=== PATIENT | male | born 1945 | race Caucasian/White ===

== ENCOUNTER 2022-09-06 12:54 | Emergency (ER) | payer MEDICARE, OTHER, SELFPAY ==
--- NOTE | 2022-09-06 12:57 | CT_ITS ---
STUDY: CTA HEAD AND NECK WITH CONTRAST REASON FOR EXAM: Male, 76 years old. Neuro deficit, acute, stroke suspected: R eye RADIATION DOSAGE (If Supplied By Facility): CTDIvol = ( 20.59 ) mGy, DLP = ( 784.51 ) mGycm TECHNIQUE: CT angiography was performed with a multi-detector CT scanner. Data acquisition was obtained from the skull base through the vertex following intravenous administration of IV 100mL [id number]-370. MIP images were reconstructed from the axial data set. Post-processing of the angiographic images was performed, with multiplanar reformation and 3D reconstruction. Individualized dose optimization techniques were used for this CT. COMPARISON: No relevant priors. FINDINGS: Normal bilateral petrous carotid arteries. There is calcified plaque formation of the right cavernous carotid artery, without a cross-sectional luminal stenosis. There is calcified plaque formation of the left cavernous carotid artery, without a cross-sectional luminal stenosis. Normal right A1 segments of the anterior cerebral artery. Normal left A1 segments of the anterior cerebral artery. Normal intact anterior communicating artery (ACOM). Normal bilateral A2 segments of the anterior cerebral arteries. Normal right M1 and M2 segments of the middle cerebral arteries, with a normal M1 bifurcation. Normal left M1 and M2 segments of the middle cerebral arteries, with a normal M1 bifurcation. Normal right posterior communicating artery (PCOM). Normal left posterior communicating artery (PCOM). Normal bilateral vertebral arteries. Normal basilar artery with a normal basilar bifurcation. The visualized bilateral superior cerebellar (SCA) arteries are normal. Normal bilateral P1, P2 and visualized P3 segments of the posterior cerebral arteries. There is no demonstrated aneurysm of the [place]. AORTIC ARCH: There is atherosclerotic calcific plaque formation of the aortic arch and great vessels arising from the aortic arch, without a hemodynamically significant stenosis. There is a normal origin of the brachiocephalic, left common carotid, and left subclavian arteries. RIGHT CAROTID ARTERIES: Normal right common carotid artery (CCA). There is moderate atherosclerotic plaque formation with moderate narrowing of the right carotid bulb. There is moderate atherosclerotic plaque formation of the origin of the right internal carotid artery with an estimated stenosis of 50-69% stenosis. Normal visualized cervical portion of the right internal carotid artery. Normal origin of the right external carotid artery (ECA). LEFT CAROTID ARTERIES: Normal left common carotid artery (CCA). There is moderate atherosclerotic plaque formation with moderate narrowing of the carotid bulb. There is moderate atherosclerotic plaque formation of the origin of the left internal carotid artery with an estimated stenosis of 50-69% stenosis. Normal visualized cervical portion of the left internal carotid artery. Normal origin of the left external carotid artery (ECA). VERTEBRAL ARTERIES: Normal bilateral vertebral arteries. CT/STROKE CTA Head AND Neck W/Con IMPRESSION: 50-69% stenosis at the origin of the right and left internal carotid arteries due to calcific plaque formation. N.B. : The above Results were Read Back by Demarco Sparrow MD to Jw Kirkpatrick and understanding confirmed on 09/06/2022 13:26:58 (ET). Electronically Signed: Demarco Sparrow MD at 13:28 EST ,
--- NOTE | 2022-09-06 12:57 | EKG12_ITS ---
Test Reason : POSS STROKE Blood Pressure : / mmHG Vent. Rate : 075 BPM Atrial Rate : 075 BPM P-R Int : 148 ms QRS Dur : 078 ms QT Int : 384 ms P-R-T Axes : 094 010 035 degrees QTc Int : 428 ms Normal sinus rhythm Nonspecific ST and T wave abnormality Confirmed by TOMMY ASIF, ESVIN ([id number]), index editor MENDOZA EVANS ([id number]) on 09/10/2022 11:04:10 AM Referred By: Confirmed By:ESVIN SANDERS MD
--- NOTE | 2022-09-06 12:58 | EDS_ITS ---
HPI History of Present Illness Chief Complaint: Stroke Alert Informant: patient Onset/Context/Timing Onset: Today Context: - (Awoke with symptoms) Timing: Continuous Quality and Location: Positive for - (Blurry vision throughout entire right eye visual awan) Onset: Awoke with symptoms 2 hours ago Current Severity: Moderate Maximum Severity: Moderate Narrative Narrative: Patient went to bed around 2245 last night without any issues and woke blurry vision right eye today and walked into the eye doctor as a walk-in. Dr. Jules saw him and diagnosed him with a central retinal artery occlusion, and sent him emergently to the emergency department, he walked in, I saw him in triage as nursing called a stroke alert. Patient takes a baby aspirin every day and no other medications. He has no medical problems. He has no other symptoms right now. [facility] Medical History Cholecystectomy planned Diabetes mellitus Hypercholesteremia Hypertension Medical History no medical history Home Medications aspirin 81 mg tablet 81 mg PO DAILY 09/06/22 [History Last Taken Unknown] atorvastatin 40 mg tablet 40 mg PO DAILY #30 tabs 09/06/22 [Rx Last Taken Unknown] clobetasol 0.05 % scalp solution 1 applic topical DAILY 09/06/22 [History Last Taken Unknown] clopidogrel 75 mg tablet 75 mg PO DAILY #30 tabs 09/06/22 [Rx Last Taken Unknown] cyanocobalamin (vitamin B-12) 1,000 mcg tablet (Vitamin B-12) 1,000 mcg PO DAILY 09/06/22 [History Last Taken Unknown] gabapentin 300 mg capsule 900 mg PO TID 09/06/22 [History Last Taken Unknown] glimepiride 4 mg tablet 4 mg PO BID 09/06/22 [History Last Taken Unknown] qiosjdqpomo-nokcpptut-dok C-Mn 500 mg-400 mg capsule (Glucosamine Chondroitin Maximum Strength) cap PO DAILY 09/06/22 [History Last Taken Unknown] hydrochlorothiazide 12.5 mg capsule 12.5 mg PO DAILY 09/06/22 [History Last Taken Unknown] ketoconazole 2 % shampoo 1 applic topical Q14D 09/06/22 [History Last Taken Unknown] lamotrigine 25 mg tablet 25 mg PO QODAY 09/06/22 [History Last Taken Unknown] losartan 50 mg tablet 50 mg PO DAILY 09/06/22 [History Last Taken Unknown] magnesium 500 mg tablet 15 mg PO DAILY 09/06/22 [History Last Taken Unknown] metformin 750 mg tablet,extended release 24 hr 750 mg PO BID 09/06/22 [History Last Taken Unknown] metronidazole 0.75 % topical cream 1 applic topical BID 09/06/22 [History Last Taken Unknown] potassium 99 mg tablet mg 09/06/22 [History Last Taken Unknown] Allergy/AdvReac Type Severity Reaction Status Date / Time No Known Allergies Allergy Verified 09/06/22 13:23 Surgical History Knee joint replacement status Surgical History no surgical history Social History Smoking Status: Never smoker ROS ROS ED Constitutional Constitutional ED: Denies chills or fever(s) Eyes Eyes: Reports blurry vision right and change in vision; Denies diplopia ENT ENT ED: Denies rhinorrhea or sore throat Cardiovascular Cardiovascular: Denies chest pain or palpitations Respiratory/Chest Respiratory/Chest: Denies cough or dyspnea Gastrointestinal Gastrointestinal: Denies abdominal pain, diarrhea, nausea or vomiting Genitourinary Genitourinary ED: Denies dysuria or hematuria Musculoskeletal Musculoskeletal: Denies back pain or neck pain Integumentary Denies abscess or rash Neurologic Neurologic: Denies headache(s), paresthesias or weakness Psychiatric Psychiatric: Denies anxiety or suicidal thoughts EXAM Physical Exam Const Vital Signs: 09/06/22 13:12 09/06/22 13:13 09/06/22 13:14 Temperature 97.2 F L Temperature Source Temporal Pulse Rate 80 74 Respiratory Rate 18 18 Blood Pressure 165/76 H 151/74 H Blood Pressure Mean 105 99 Pulse Ox 96 94 Oxygen Delivery Method Room Air Room Air Room Air 09/06/22 13:17 09/06/22 13:30 09/06/22 14:00 Temperature Temperature Source Pulse Rate 78 71 67 Respiratory Rate 13 17 14 Blood Pressure 159/77 H 142/72 H 138/66 H Blood Pressure Mean 104 95 90 Pulse Ox 93 96 94 Oxygen Delivery Method Room Air Room Air 09/06/22 14:00 Temperature Temperature Source Pulse Rate 67 Respiratory Rate 14 Blood Pressure 138/66 H Blood Pressure Mean 90 Pulse Ox 94 Oxygen Delivery Method Room Air Positive well nourished and well developed General Appearance ED: well developed and NAD HEENT Reports moist mucous membranes normocephalic and atraumatic Eyes PERRL and EOMs intact bilaterally Eyes Narrative: Visual awan intact. The blurry throughout right eye visual awan, normal throughout left according to patient. Neck full ROM and supple Resp normal respiratory effort and clear to auscultation bilaterally Cardio regular rate, regular rhythm and no murmurs GI non-tender and non-distended Auscultation: normoactive bowel sounds Palpation: soft Back/Spine no CVA tenderness General Back: other FROM Extremity normal to inspection General Extremety ED: Negative for edema, pulses abnormal or tenderness General Extremity: Negative for edema or pulses abnormal Neuro oriented x3, CN's II-XII intact bilaterally and no sensory deficits noted Sensorium / Orientation: awake and alert Speech: speech normal Gait (Neuro): normal gait Motor Exam: strength 5/5 throughout Psych mental status grossly normal Skin no rashes or lesions noted and no wounds NIHSS NIHSS Initial: 1a Level of Consciousness: 0 1b LOC Questions (Score 2 if aphasic/stupor): 0 1c LOC Commands (Only score 1st attempt): 0 2 Best Gaze (If aphasic, use reflexive mvmts.): 0 3 Visual: 0 4 Facial Palsy: 0 5 Motor Arm Right (UN = amputation/fusion): 0 5 Motor Arm Left: 0 6 Motor Leg Right: 0 6 Motor Leg Left: 0 7 Limb ataxia (Only + if out of proportion): 0 8 Sensory (Aphasia/stupor=0 or 1, coma=2): 0 9 Best Language: 0 10 Dysarthria (mute, coma=2, intubated=UN): 0 11 Extinction and Inattention (only scored if +): 0 Total Score: 0 MDM MDM MDM Narrative Medical decision making narrative: Stroke alert was called on this patient, he was taken directly to CT and had a scan, then an IV was placed and CT angiography was performed. I discussed with the radiologist concerning the negative CT and the negative CTA but it shows bilateral carotid stenosis. Patient remained stable his blood pressure came down without treatment, now 138/66. Discussed with stroke neurology, since he h as no other deficits other than the eye/vision symptoms, they do not have further recommendations do not think the patient needs to be admitted for MRI or other testing right now, but defer treatment of the eye to vascular/ophthalmology. Discussed with Dr. López with vascular, he recommends loading the patient with clopidogrel, prescribing it for him, and have him follow-up as an outpatient, and making sure the patient is on statin therapy. When I went to discuss all of this with the patient, initially he had said that he was just on a baby aspirin but it became known that the patient is on a whole list of medications including medication for his blood pressure. We loaded him with clopidogrel while his went home to get the list, which we then had and were able to perform med reconciliation. It appears that high intensity statin therapy is desired, so I am changing his simvastatin 20 mg to atorvastatin 40 mg daily. Lab Data Attestation: I reviewed the patient's lab results. Labs: Laboratory Results - last 24 hr 09/06/22 09/06/22 09/06/22 13:03 13:03 13:03 WBC 3.3 L RBC 4.18 L Hgb 13.6 Hct 39.8 L MCV 95.2 H MCH 32.5 H MCHC 34.2 RDW Std Deviation 44.7 H RDW Coeff of [place] 12.7 Plt Count 79 L MPV 8.9 Immature Gran % (Auto) 0.300 Neut % (Auto) 75.0 H Lymph % (Auto) 12.2 L Mobile % (Auto) 10.7 H Eos % (Auto) 1.2 Baso % (Auto) 0.6 Absolute Neuts (auto) 2.5 Absolute Lymphs (auto) 0.40 L Nucleated RBC % 0 Differential Comment SCANNED Diff Path Review May foll Platelet Estimate MOD DEC PT 14.7 INR 1.2 APTT 29.6 Sodium 137 Potassium 4.1 Chloride 102 Carbon Dioxide 27.0 Anion Gap 8 BUN 25 H Creatinine 1.08 Estim Creat Clear Calc 55.25 Est GFR (MDRD) Af Amer 86 Est GFR (MDRD) Non-Af 71 BUN/Creatinine Ratio 23.1 H Glucose 217 H Calcium 10.1 Troponin I High Sens 6 POC Glucose 09/06/22 13:12 WBC RBC Hgb Hct MCV MCH MCHC RDW Std Deviation RDW Coeff of [place] Plt Count MPV Immature Gran % (Auto) Neut % (Auto) Lymph % (Auto) [place] % (Auto) Eos % (Auto) Baso % (Auto) Absolute Neuts (auto) Absolute Lymphs (auto) Nucleated RBC % Differential Comment Diff Path Review Platelet Estimate PT INR APTT Sodium Potassium Chloride Carbon Dioxide Anion Gap BUN Creatinine Estim Creat Clear Calc Est GFR (MDRD) Af Amer Est GFR (MDRD) Non-Af BUN/Creatinine Ratio Glucose Calcium Troponin I High Sens POC Glucose 199 H Radiography Diagnostic Testing: Clinical Impression(s) from Imaging Studies Head/Neck CTA 09/06/22 12:57 IMPRESSION: 50-69% stenosis at the origin of the right and left internal carotid arteries due to calcific plaque formation. N.B. : The above Results were Read Back by Demarco Sparrow MD to Jw Kirkpatrick and understanding confirmed on 09/06/2022 13:26:58 (ET). Electronically Signed: Demarco Sparrow MD at 13:28 EST , ADDENDUM: 09/06/22 1335 IMPRESSION: 50-69% stenosis at the origin of the right and left internal carotid arteries due to calcific plaque formation. N.B. : The above Results were Read Back by Demarco Sparrow MD to Jw Kirkpatrick and understanding confirmed on 09/06/2022 13:26:58 (ET). Electronically Signed: Demarco Sparrow MD at 13:28 EST , Brain CT 09/06/22 13:00 IMPRESSION: Chronic involutional changes of the brain. N.B. : The above Results were Read Back by Demarco Sparrow MD to Jw Kirkpatrick and understanding confirmed on 09/06/2022 13:16:04 (ET). Electronically Signed: Demarco Sparrow MD at 13:17 EST , ADDENDUM: 09/06/22 1324 IMPRESSION: Chronic involutional changes of the brain. N.B. : The above Results were Read Back by Demarco Sparrow MD to Jw Kirkpatrick and understanding confirmed on 09/06/2022 13:16:04 (ET). Electronically Signed: Demarco Sparrow MD at 13:17 EST , Chest X-Ray 09/06/22 13:50 IMPRESSION: No acute abnormality is seen. Electronically Signed: Demarco Sparrow MD at 14:03 EST , Rhythm Strip Rhythm Strip: Sinus Rhythm Rate: 75 Ectopy: None EKG Initial EKG: Attestation: I personally reviewed and interpreted this EKG as follows: Interpretation: Sinus Rhythm and No Acute Injury Pattern Management Discussion w/another healthcare provider: Horticulture Professor (stroke neurologist, vascular surgery Dr. López) and Radiologist Stroke Documentation Questions Stroke Team Activated: Yes Was Patient considered for Endovascular Intervention?: No-CTA negative, determined not to be an endovascular candidate IV Thrombolytic Administered: No (timing) Critical Care Time Critical Care Time: Yes Critical care time (excluding procedures): 30-74 minutes (40 min), Including time spent:, Discussing w/Patient &/or Family/Irrigation Equipment Mechanic, Discussing w/C onsultants and Performing Direct Patient Care at Bedside Discharge Plan Triage Chief Complaint: Stroke Alert ED Provider: Jw Kirkpatrick Dx/Rx/DC Orders Clinical Impression: Central retinal artery occlusion of right eye, 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% Instructions: Central Retinal Artery Occlusion, Carotid Artery Disease Prescriptions: New clopidogrel 75 mg tablet 75 mg PO DAILY Qty: 30 0RF atorvastatin 40 mg tablet 40 mg PO DAILY Qty: 30 0RF Continued gabapentin 300 mg Capsule 900 mg PO TID aspirin 81 mg Tablet 81 mg PO DAILY clobetasol 0.05 % Solution 1 applic TOPICAL DAILY losartan 50 mg Tablet 50 mg PO DAILY ketoconazole 2 % Shampoo 1 applic TOPICAL Q14D cyanocobalamin (vitamin B-12) [Vitamin B-12] 1,000 mcg Tablet 1,000 mcg PO DAILY lamotrigine 25 mg Tablet 25 mg PO QODAY glimepiride 4 mg Tablet 4 mg PO BID metronidazole 0.75 % Cream 1 applic TOPICAL BID hydrochlorothiazide 12.5 mg Capsule 12.5 mg PO DAILY jiycqccfroa-sjapxiegs-vsw C-Mn [Glucosamine Chondroitin MaxStr] 500-400 mg Capsule PO DAILY metformin 750 mg Tablet Extended Release 24 Hr 750 mg PO BID magnesium 500 mg Tablet 15 mg PO DAILY potassium 99 mg Tablet Discontinued meloxicam 7.5 mg Tablet 7.5 mg PO DAILY simvastatin 20 mg Tablet 20 mg PO DAILY Primary Care Provider: Harlan Ford Referrals: Sony López MD [[facility] Staff - Active Staff] - As soon as possible (Call Saturday for appointment if you do not hear from the office before then) Gilson Mario DO [Med Staff - Active Staff] - Disposition Disposition: Home, Self Care
--- NOTE | 2022-09-06 13:00 | CT_ITS ---
STUDY: CT BRAIN WITHOUT CONTRAST REASON FOR EXAM: Male, 76 years old. Neuro deficit, acute, stroke suspected RADIATION DOSAGE (If Supplied By Facility): CTDIvol = ( 44.99 ) mGy, DLP = ( 846.73 ) mGycm TECHNIQUE: Transaxial CT imaging of the brain was performed without administration of intravenous contrast material. Individualized dose optimization techniques were used for this CT. COMPARISON: No relevant priors. FINDINGS: Normal soft tissue structures. Normal calvarium. There is mild cerebral atrophy with widening of the extra-axial spaces and ventricular dilatation. There are areas of decreased attenuation within the white matter tracts of the supratentorial brain, consistent with microvascular disease changes. Normal basal ganglia and thalami. Normal brainstem. Normal cerebellum. There is no intracranial hemorrhage. There are no findings of an acute ischemic infarction. Atherosclerotic calcification of the vertebral arteries and cavernous portions of the internal carotid arteries bilaterally. Partial opacification of the right maxillary sinus. CT/STROKE Brain/Head without Cont IMPRESSION: Chronic involutional changes of the brain. N.B. : The above Results were Read Back by Demarco Sparrow MD to Jw Kirkpatrick and understanding confirmed on 09/06/2022 13:16:04 (ET). Electronically Signed: Demarco Sparrow MD at 13:17 EST ,
[2022-09-06 13:13] VITALS: BP 165/76; PULSE 80; RESP 18; O2SAT 96
[2022-09-06 13:14] VITALS: BP 151/74; PULSE 74; RESP 18; TEMP 36.2; O2SAT 94; BMI 30.9
--- NOTE | 2022-09-06 13:15 | CM.ED ---
Social Work Note Referral Source: Stroke Alert Referral Reason: emotional support SW met with patient's in response to stroke alert and introduced herself and role as [facility] [place] [employer]. SW provide patient's with emotional support. No other needs at this time, SW remains available if needs arise. Vesta Connolly MSW, RENE
[2022-09-06 13:17] VITALS: BP 159/77; PULSE 78; RESP 13; O2SAT 93
[2022-09-06 13:18] LABS: Absolute Neutrophil Count 2.5 X10^3/uL (2.0-7.7); Basophil# 0.02 X10^3/uL; Basophil% 0.6 % (0-1); Eosinophil# 0.04 X10^3/uL; Eosinophils% 1.2 % (0-5); Hematocrit 39.8 % (40-54); Hemoglobin 13.6 g/dL (13.0-16.5); Lymphocyte % 12.2 % (19-41); Mean Corp Hgb Conc 34.2 g/dL (32-36); Mean Corpuscular Hgb 32.5 pg (27.0-32.0); Mean Corpuscular Volume 95.2 fL (80-94); Mean Platelet Vol. 8.9 fl (6.2-12.0); Monocyte# 0.35 X10^3/uL; Monocyte% 10.7 % (0-10); NRBC Flagged by Analyzer 0 % (0-5); Neutrophil # 2.46 X10^3/uL (2.7-7.7); POSITIVE COUNT YES; POSITIVE DIFFERENTIAL YES; Platelet Count 79 K/mm3 (150-450); RBC Distribution Width CV 12.7 % (11.6-14.6); RBC Distribution Width SD 44.7 fl (35.1-43.9); Red Blood Count 4.18 M/mm3 (4.6-6.2); White Blood Count 3.3 K/mm3 (4.4-11.0)
[2022-09-06 13:19] VITALS: BMI 30.9
[2022-09-06 13:20] LABS: Differential Indicated SCAN CRITERIA MET
--- NOTE | 2022-09-06 13:20 | ED.RN ---
DR. ZHAO [facility] ON STROKE CONSULT
[2022-09-06 13:26] LABS: International Normalized Ratio 1.2; Prothrombin Time (Protime)PT. 14.7 SECONDS (11.7-14.9)
[2022-09-06 13:27] LABS: Partial Thromboplast Time 29.6 Seconds (24.1-36.2)
[2022-09-06 13:30] VITALS: BP 142/72; PULSE 71; RESP 17; O2SAT 96
[2022-09-06 13:30] LABS: Bedside Glucose 199 mg/dL (74-106)
[2022-09-06 13:38] LABS: Anion Gap 8 (5-15); BUN 25 mg/dL (7-18); BUN/Creat Ratio 23.1 RATIO (10-20); Calcium,Total 10.1 mg/dL (8.5-10.1); Chloride 102 mmol/L (98-107); Creatinine, Serum 1.08 mg/dL (0.70-1.30); Differential Comment SCANNED; EST Glomerular Filtration Rate 71 mL/min (>60); Est Glom Filt Rate - Afr Amer 86 mL/min (>60); Estimated Creatinine Clearance 55.25 ml/min; Glucose 217 mg/dL (74-106); Platelet Estimate MOD DEC (ADEQ); Potassium 4.1 mmol/L (3.5-5.1); Sodium Level 137 mmol/L (136-145); Troponin-I HS 6 pg/mL (3.0-78.0)
--- NOTE | 2022-09-06 13:50 | RAD_ITS ---
STUDY: X-RAY CHEST REASON FOR EXAM: Male, 76 years old. Neuro deficit, acute, stroke suspected TECHNIQUE: Single AP portable view of the chest. COMPARISON: None. FINDINGS: EKG electrodes are seen. Mild elevation of the right hemidiaphragm. The lungs are clear. There is no demonstrated pleural abnormality. Normal size heart. Normal mediastinum and rach. Normal visualized pulmonary arteries. There is atherosclerotic tortuosity of the aortic arch and descending thoracic aorta. There are diffuse degenerative changes of the visualized thoracic spine. Healed left-sided rib fractures. There is no demonstrated abnormality of the visualized soft tissue structures of the upper abdomen. RAD/Chest 1 View IMPRESSION: No acute abnormality is seen. Electronically Signed: Demarco Sparrow MD at 14:03 EST ,
[2022-09-06 14:00] VITALS: BP 138/66; PULSE 67; RESP 14; O2SAT 94
--- NOTE | 2022-09-06 14:13 | CHAPLAIN ---
Type of Pastoral Visit ___ Initial Visit ___ Follow-up Visit ___ On-call Visit ___ General Patient Visit ___ Spiritual Assessment ___ Family Conference ___ Bereavement _x__ Rapid Response ___ Code Blue ___ Other (describe below) Pastoral Care Referral From ___ Patient ___ Family ___ Nurse ___ Physician ___ Credit Collections Manager ___ House Decorator _x__ Other (describe below) Sacrament/Intervention _x__ Active listening ___ Anointing ___ Rastafari ___ Bereavement ___ Communion ___ Di exploration ___ _x__ Life review _x__ Prayer ___ Reconciliation ___ Sacrament of Sick _x__ Supportive presence ___ Wedding ___ Other (describe below) Pastoral Comments met spouse and stayed with her until the patient returned from CT; spouse was offered support, listening ear to which she spoke much about her life as a volunteer, and a prayer for the patient; when patient returned the spouse was answering questions from registration and no further support was needed
[2022-09-06] MEDS: Clopidogrel Bisulfate 300 MG Tablet PO (14:58)
[2022-09-06 16:13] VITALS: BP 154/70; PULSE 68; RESP 16; O2SAT 96
[2022-09-07 13:21] LABS: Pathologist Review Reviewed
== END 2022-09-06 16:29 | disposition home or self-care (01) ==
PROVIDERS: Emergency Provider Emergency Medicine; PCP Student in an Organized Health Care Education/Training Program; Visit Provider Emergency Medicine
DX: H34.11 Central retinal artery occlusion, right eye (principal); E11.9 Type 2 diabetes mellitus without complications; I65.23 Occlusion and stenosis of bilateral carotid arteries; I10 Essential (primary) hypertension; E78.00 Pure hypercholesterolemia, unspecified; Z79.82 Long term (current) use of aspirin; Z79.899 Other long term (current) drug therapy; Z79.84 Long term (current) use of oral hypoglycemic drugs
CPT/HCPCS: 70450; 70496; 70498; 71045; 80048; 82962; 84484; 85025; 85610; 85730; 93005; 99285; Q9967; A4216

== ENCOUNTER 2022-09-19 09:46 | Inpatient (IN) | payer MEDICARE, OTHER, SELFPAY ==
[2022-09-14 10:33] LABS: Hemoglobin A1c 8.3 % (3.8-5.6)
[2022-09-19] VITALS (13 sets, daily range): BP systolic 101–134; BP diastolic 41–65; PULSE 60–80; RESP 14–17; TEMP 35.9–36.8; O2SAT 91–98; BMI 30.2; BMI 30.4
[2022-09-19] MEDS: Lactated Ringers 1,000 ML 15 ML IV (10:52)
[2022-09-19 11:15] LABS: Bedside Glucose 106 mg/dL (74-106)
--- NOTE | 2022-09-19 11:46 | PCM.HP.BLA ---
History and Physical Allergies No Known Allergies Allergy (Verified 09/10/22 11:01) Medications aspirin 81 mg tablet 81 mg PO DAILY 09/06/22 [History Confirmed 09/10/22] atorvastatin 40 mg tablet 40 mg PO DAILY #30 tabs 09/06/22 [Rx Confirmed 09/10/22] clobetasol 0.05 % scalp solution 1 applic topical DAILY 09/06/22 [History Confirmed 09/10/22] clopidogrel 75 mg tablet 75 mg PO DAILY #30 tabs 09/06/22 [Rx Confirmed 09/10/22] cyanocobalamin (vitamin B-12) 1,000 mcg tablet (Vitamin B-12) 1,000 mcg PO DAILY 09/06/22 [History Confirmed 09/10/22] gabapentin 300 mg capsule 900 mg PO TID 09/06/22 [History Confirmed 09/10/22] glimepiride 4 mg tablet 4 mg PO BID 09/06/22 [History Confirmed 09/10/22] qaaypqjbiqp-qdaoydgqa-grz C-Mn 500 mg-400 mg capsule (Glucosamine Chondroitin Maximum Strength) cap PO DAILY 09/06/22 [History Confirmed 09/10/22] hydrochlorothiazide 12.5 mg capsule 12.5 mg PO DAILY 09/06/22 [History Confirmed 09/10/22] ketoconazole 2 % shampoo 1 applic topical Q14D 09/06/22 [History Confirmed 09/10/22] lamotrigine 25 mg tablet 25 mg PO QODAY 09/06/22 [History Confirmed 09/10/22] losartan 50 mg tablet 50 mg PO DAILY 09/06/22 [History Confirmed 09/10/22] metformin 750 mg tablet,extended release 24 hr 750 mg PO BID 09/06/22 [History Confirmed 09/10/22] metronidazole 0.75 % topical cream 1 applic topical BID 09/06/22 [History Confirmed 09/10/22] potassium 99 mg tablet mg 09/06/22 [History Confirmed 09/10/22] magnesium oxide 500 mg capsule 500 mg PO DAILY 09/10/22 [History Confirmed 09/10/22] PFSH Medical History? Cholecystectomy planned Diabetes mellitus Hypercholesteremia Hypertension Surgical History? Knee joint replacement status Social History? Smoking Status:? Never smoker HPI HPI HPI: LARA SOLANO, is a 76 M who presents to the office today for evaluation of right carotid stenosis found after abrupt vision loss in right eye. 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 No prior similar events, but was seeing floaters in right eye prior to vision loss. CTA revealed 55% stenosis right ICA with soft plaque, large caliber vessels. Was on ASA and simvastatin. Has started plavix in addition. Denies numbness/weakness/speech difficulty. No prior cardiac history, no CP/SOB with activity. No prior neck surgery/XRT/limitation in ROM. ROS General General: Yes fatigue and weakness; No weight change, appetite, colon cancer or breast cancer HEENT HEENT: Yes eye injury; No difficulty swallowing, eye surgery, swollen glands or hoarseness Endo Endocrine: Yes diabetes mellitus; No thyroid disease, thyroid cancer, Hair loss, heat intolerance or cold intolerance Skin Skin: No rash or changing moles Musc Musculoskeletal: No back problems, arthritis, rheumatoid arthritis, gout or joint pain Cardio Cardiovascular: Yes high blood pressure; No murmur, pacemaker, heart disease, atrial fibrillation, heart attack, heart stent, palpitations, shortness of breat with exertion or chest pain Psych Psychiatric: No depression, anxiety or hearing voices Resp Respiratory: No shortness of breath, No sleep apnea, No cough, No COPD, No asthma, No emphysema and No wheezing Gastro Gastrointestinal: No abdominal pain, No nausea or vomiting, No diarrhea, No constipation, No blood in stool, No acid reflux, No hemorrhoids, No ulcers, No gallbladder problem and No black,tarry stools Jose Hematologic: Yes blood thinners, No blood disorders, No bleeding, No anemia and No blood clots Neuro Neurologic: No system reviewed and no additional complaints, except as documented, No as per HPI, No abnormal gait, No abnormal hearing, No abnormal movements, No abnormal speech, No behavioral changes, No burning sensations, No confusion, No convulsions, No disequilibrium, No dizziness, No localized weakness, No frequent falls, No headache(s), No lack of coordination, No loss of vision, No memory loss, Yes numbness, No other visual disturbances, No radicular pain, No restless legs, No sensory deficit, No syncope, Yes tingling, No tremor(s), Yes weakness and No other Exam Const General: cooperative, healthy appearing, comfortable, no acute distress and well developed Nutritional Appearance: well nourished Orientation: alert, awake and oriented x3 HENMT Head: normocephalic and atraumatic Ears: hearing grossly normal bilaterally Nose: external nose normal Eyes General: appearance normal, both eyes and all related structures EOM: EOM intact bilaterally Neck Neck: normal visual inspection, full ROM, no lymphadenopathy and trachea midline Thyroid: thyroid normal Lymphatic: no lymphadenopathy noted Resp Effort & Inspection: normal respiratory effort, able to speak in complete sentences, symmetric chest movement, no audible wheezes, not labored, no stridor and no use of accessory muscles Auscultation: clear to auscultation bilaterally Cardio Rate: regular rate Rhythm: regular rhythm Heart Sounds: no murmurs Bruits: no carotid bruits Pulses: brachial pulses present and radial pulses present Skin General: no rashes or lesions noted and no erythema Wounds: no wounds Neuro Cranial Nerves: abnormalities within CN's II-XII (right eye vision loss, central) and EOM intact bilaterally Speech: speech normal Gait: normal gait Motor: strength 5/5 throughout Sensory Exam: no sensory deficits noted Psych Appearance: grossly normal and well kempt Mental Status: mental status grossly normal Mood: congruent mood Speech and Movement: speech and movement normal Thought Content: normal Judgment: judgment good Coding Level of Care Code Off vis,new,level 4 Diagnoses Carotid stenosis, right? I65.21 Assessment and Plan Assessment and Plan (1) Carotid stenosis, right: ?Status:?Acute ?Comment: CTA images reviewed ?Plan: -right CEA
[2022-09-19] MEDS: Cefazolin 2 GM in 0.9% Normal Saline 100 ML IV (12:24)
--- NOTE | 2022-09-19 12:24 | PLAQ_PTH ---
PATIENT: LARA SOLANO LOC: [facility] U#:[id number] AGE/SX: 76/M ROOM: [facility]08 RE09/19/[address]: Dr. Sony López MD : 1945 BED: 1 DIS: 09/20/2022 SPEC #: [id number] RECD: 09/19/22 16:49 STATUS: MARCOS REQ #: [id number] MARBELLA: 09/19/22 12:[address]: Sony López DEPT: SURGICAL PATHOLOGY RECD BY: Maureen Grossman ENTERED: 09/20/22 09:56 SP TYPE: PLAQUE OTHR DR: MD Dr. Harlan Anderson, Tissues: PLAQUE Procedures: Decalcification bone/plaque Surgery Specimen Level III HEADER OPERATION: Carotid endarterectomy PRE-OP DIAGNOSIS: Right carotid stenosis TISSUE SUBMITTED: Right carotid plaque MICROSCOPIC DIAGNOSIS Right carotid plaque, endarterectomy: Calcified atheromatous plaque consistent with severe stenosis. AM:linette 09/24/2022 GROSS DESCRIPTION Received in fixative is one container labeled with the patient's name and designated right carotid plaque. The specimen consists of a Y-shaped previously opened piece of vargas, indurated tissue measuring 3.5 cm in length and up to 1.2 cm in diameter. The specimen cuts with gritty sensation. Also present in the container are two pieces of vargas soft tissue measuring in aggregate 3.0 x 0.7 x 0.1 cm. Exhibits Coordinator sections are submitted in one cassette after decalcification. / SJ:linette 09/20/2022 TC:5 CPT: 10791, 26589
[2022-09-19] MEDS: Heparin Injection (Vial) 5,000 UNIT/ML VIAL 5000 UNIT (12:30)
[2022-09-19] MEDS: Bupivacaine 0.25% 30 ML Vial (15:22)
--- NOTE | 2022-09-19 15:25 | PCM.OPRPT ---
Report of Operation Date of Procedure: 09/19/22 Pre-Operative Diagnosis: symptomatic right carotid stenosis Post-Operative Diagnosis: same Surgery/Procedure Performed:: right carotid endarterectomy Surgeon: Sony López Type of Anesthesia: General Drains: 19 Fr PATTY Estimated Blood Loss (mL): 50 Description of Procedure: HPI: Patient is a 76-year-old male who suffered a right retinal artery infarct. He had CT scan which revealed significant soft plaque in the right internal carotid artery with moderate stenosis. He had already been on antiplatelet therapy when his embolic event occurred so he is opted now for surgical treatment of his symptomatic carotid. Description of procedure: Upon obtaining informed consent and verification correct patient procedure site patient was taken to the operating room where he was placed under general anesthesia then positioned prepped and draped in usual sterile fashion. Timeout was performed an oblique incision was made along the anterior border of the right sternocleidomastoid. Bovie electrocautery used to dissect down through subcutaneous tissue down to the level of platysma which was then divided and self-retaining retractors put in position. Further dissection was carried down to the sternocleidomastoid which was freed along its anterior border and retracted laterally. Sharp dissection was then used to dissect free the internal jugular vein along the anterior border, at the facial vein ligated with silk ties and divided. The jugular was then retracted laterally exposing the carotid vessels, and sharp dissection used to dissect free the proximal common carotid artery with care taken to identify and protect the vagus nerve. A right angle used to place a vessel around the proximal common carotid artery and attention turned to the distal exposure. Sharp dissection was used to dissect free the distal internal carotid artery with care taken to identify and protect the hypoglossal nerve. The vessel was dissected free circumferentially and a running was placed vessel loop. Patient was then heparinized and allowed to circulate for 3 minutes with serial ACT's for heparin redosing. While this was circulating the external carotid artery was dissected free and a right angle used to place a vessel loop. The vessels were then occluded, first the internal followed by the common and external. A longitudinal arteriotomy was created with 11 blade on the common carotid artery and extended with [place] scissors onto the internal carotid artery beyond the area of plaque. An [place] shunt was then placed first distally into the internal carotid artery allowed to backbleed before being placed into the common carotid artery proximally. The shunt was interrogated Doppler and found to be patent with low resistance signal. We then performed her endarterectomy with a freer elevator with satisfactory endpoint distally on the internal carotid artery and eversion endarterectomy of the external carotid artery. The lumen was then flushed with heparinized saline to clear debris in the distal endpoint tacked with 7-0 Prolene interrupted sutures. A bovine pericardial patch was then brought on the field and secured into position with a running 6-0 Prolene. Prior to completing the suture line the shunt was removed and the vessels backbled. After completing the suture line the internal carotid artery was allowed to backbleed and bifurcation then reoccluded its origin. Clamps were then removed from the external and common carotid arteries allowing 10 heartbeats of antegrade flow to flush before reestablishing antegrade flow into the internal carotid artery. Once clamps removed satisfactory stasis was noted and the vessel interrogated with Doppler. The internal carotid artery at low resistant signal in the external carotid artery was patent with normal signal. The patient was then reversed with protamine the field inspected for hemostasis. There continued to be some needle hole bleeding as well as oozing from the raw surfaces so Floseal topical hemostatic was applied with eventual satisfactory hemostasis noted. A 19 [place] [address] PATTY was then placed via separate stab incision and incision closed with 2-0 Vicryl, 3-0 Vicryl, 4 Monocryl and Dermabond for the skin. Patient was then awake from anesthesia, moving all extremities to command and cranial nerves intact. He was then taken to the intensive care unit for close hemodynamic and neurologic monitoring.
[2022-09-19] MEDS: Lactated Ringers 1,000 ML 100 ML IV (16:30)
[2022-09-19 17:00] LABS: Bedside Glucose 156 mg/dL (74-106)
[2022-09-19 17:04] LABS: ACT Activated Clotting Time 143 sec (74-137)
[2022-09-19 17:05] LABS: ACT Activated Clotting Time 335 sec (74-137)
[2022-09-19 17:07] LABS: ACT Activated Clotting Time 287 sec (74-137)
[2022-09-19] MEDS: Insulin Lispro 100 UNIT/ML INSULN.PEN SC ×2 (17:14→22:07)
[2022-09-19] MEDS: Gabapentin 600 MG Tablet 900 MG PO (17:18)
[2022-09-19] MEDS: Cefazolin 1 GM/50 ML BAG IV (20:24)
[2022-09-19] MEDS: Atorvastatin Calcium 40 MG Tablet PO (22:07)
[2022-09-19] MEDS: Acetaminophen 500 MG Tablet 1000 MG PO (22:07)
[2022-09-19 23:46] LABS: Bedside Glucose 322 mg/dL (74-106)
[2022-09-20] VITALS (14 sets, daily range): BP systolic 103–150; BP diastolic 45–71; PULSE 58–87; RESP 14–16; TEMP 36.6–36.8; O2SAT 90–97; BMI 30.9
[2022-09-20] MEDS: metFORMIN HCl 500 MG Tablet 750 MG PO ×2 (00:25→08:23)
[2022-09-20] MEDS: Lactated Ringers 500 ML 999 ML IV (02:40)
[2022-09-20] MEDS: Lactated Ringers 1,000 ML 100 ML IV ×2 (02:40→05:30)
[2022-09-20 03:46] LABS: Absolute Lymphocyte Count 0.26 X10^3/uL (0.83-4.51); Basophil# 0.01 X10^3/uL; Basophil% 0.3 % (0-1); Hematocrit 30.9 % (40-54); Hemoglobin 10.5 g/dL (13.0-16.5); Lymphocyte # 0.26 X10^3/ul (0.83-4.51); Lymphocyte % 7.5 % (19-41); Mean Corpuscular Hgb 32.2 pg (27.0-32.0); Mean Corpuscular Volume 94.8 fL (80-94); Mean Platelet Vol. 8.4 fl (6.2-12.0); Monocyte# 0.18 X10^3/uL; Monocyte% 5.2 % (0-10); NRBC Flagged by Analyzer 0 % (0-5); Neutrophil # 3.02 X10^3/uL (2.7-7.7); Neutrophil % 86.7 % (47-70); POSITIVE COUNT YES; POSITIVE DIFFERENTIAL YES; Platelet Count 68 K/mm3 (150-450); RBC Distribution Width CV 12.8 % (11.6-14.6); RBC Distribution Width SD 44.1 fl (35.1-43.9); Red Blood Count 3.26 M/mm3 (4.6-6.2); White Blood Count 3.5 K/mm3 (4.4-11.0)
[2022-09-20 03:47] LABS: Differential Indicated SCAN CRITERIA MET
[2022-09-20 03:57] LABS: Anion Gap 10 (5-15); BUN 24 mg/dL (7-18); BUN/Creat Ratio 18.9 RATIO (10-20); Calcium,Total 8.9 mg/dL (8.5-10.1); Chloride 100 mmol/L (98-107); Creatinine, Serum 1.27 mg/dL (0.70-1.30); EST Glomerular Filtration Rate 59 mL/min (>60); Est Glom Filt Rate - Afr Amer 71 mL/min (>60); Estimated Creatinine Clearance 50.26 ml/min; Glucose 220 mg/dL (74-106); Magnesium 1.5 mg/dL (1.6-2.6); Phosphorus 3.2 mg/dL (2.5-4.9); Potassium 4.2 mmol/L (3.5-5.1); Sodium Level 135 mmol/L (136-145)
[2022-09-20 04:00] LABS: Differential Comment SCANNED; Platelet Estimate MOD DEC (ADEQ)
[2022-09-20] MEDS: Cefazolin 1 GM/50 ML BAG IV (05:23)
[2022-09-20] MEDS: Acetaminophen 500 MG Tablet 1000 MG PO ×2 (05:25→14:21)
[2022-09-20] MEDS: Insulin Lispro 100 UNIT/ML INSULN.PEN SC ×2 (08:21→11:42)
[2022-09-20] MEDS: Cyanocobalamin 500 MCG Tablet 1000 MCG PO (08:26)
[2022-09-20] MEDS: Pyridoxine HCl 50 MG Tablet PO (08:26)
[2022-09-20] MEDS: Aspirin 81 MG TAB.CHEW PO (08:26)
[2022-09-20] MEDS: lamoTRIgine 25 MG Tablet PO (08:27)
[2022-09-20] MEDS: Enoxaparin 40 MG/0.4 ML Syringe SC (08:27)
[2022-09-20] MEDS: Clopidogrel Bisulfate 75 MG Tablet PO (08:27)
[2022-09-20] MEDS: hydroCHLOROthiazide 12.5mg 12.5 MG PO (08:28)
[2022-09-20] MEDS: Losartan Potassium 50 MG Tablet PO (08:29)
[2022-09-20] MEDS: Cholecalciferol (VIT D3) 25 MCG TABLET (1,000 UNITS) PO (08:29)
[2022-09-20] MEDS: Glimepiride 4 MG Tablet PO (08:29)
[2022-09-20] MEDS: Gabapentin 600 MG Tablet 900 MG PO ×2 (09:39→12:24)
--- NOTE | 2022-09-20 09:58 | PN.SURG_ITS ---
Subjective Subjective Doing well overnight. Mild hypotension, responded to IVF. Yoshi clears. Voiding but minimal. No new numbness/weakness/speech difficulty, right eye vision stable. Denies NICHOLS. Objective Data Objective Data A&O x 3, NAD RRR Strength 5/5 bilateral, CN intact Inc C/D/I, PATTY sero-sang Vital Signs: Vital Signs Temp Pulse Resp BP Pulse Ox O2 Del Method O2 Flow Rate 98.3 F 58 L 16 122/57 H 94 Nasal Cannula 1 09/20/22 02:46 09/20/22 07:00 09/20/22 07:00 09/20/22 07:00 09/20/22 07:42 09/20/22 07:42 09/20/22 07:42 Oxygen Flow Rate (L/min) 1 Oxygen Delivery Method Nasal Cannula Weight: 209 lb 7.026 oz Body Mass Index (BMI) 30.9 Intake & Output: Intake and Output for Last 24 Hours 09/18/22 09/19/22 09/20/22 23:59 23:59 23:59 Intake Total 160 / 160 1833.33 / 1833.33 Output Total 575 / 575 Balance -415 / -415 1833.33 / 1833.33 Lab / Micro Data Result Diagrams: 09/20/22 03:15 09/20/22 03:15 Labs: Laboratory Results - last 24 hr 09/19/22 10:49: POC Glucose 106 09/19/22 13:00: Activated Clotting Time 143 H 09/19/22 13:49: Activated Clotting Time 335 H 09/19/22 14:38: Activated Clotting Time 287 H 09/19/22 16:35: POC Glucose 156 H 09/19/22 22:06: POC Glucose 322 H 09/20/22 03:15: WBC 3.5 L, RBC 3.26 L, Hgb 10.5 L, Hct 30.9 L, MCV 94.8 H, MCH 32.2 H, MCHC 34.0, RDW Std Deviation 44.1 H, RDW Coeff of [place] 12.8, Plt Count 68 L, MPV 8.4, Immature Gran % (Auto) 0.300, Neut % (Auto) 86.7 H, Lymph % (Auto) 7.5 L, [place] % (Auto) 5.2, Eos % (Auto) 0.0, Baso % (Auto) 0.3, Absolute Neuts (auto) 3.0, Absolute Lymphs (auto) 0.26 L, Nucleated RBC % 0, Differential Comment SCANNED, Diff Path Review November, Platelet Estimate MOD 09/20/22 03:15: Sodium 135 L, Potassium 4.2, Chloride 100, Carbon Dioxide 25.0, Anion Gap 10, BUN 24 H, Creatinine 1.27, Estim Creat Clear Calc 50.26, Est GFR (MDRD) Af Amer 71, Est GFR (MDRD) Non-Af 59 L, BUN/Creatinine Ratio 18.9, Glucose 220 H, Calcium 8.9, Phosphorus 3.2, Magnesium 1.5 L Assessment & Plan Assessment/Plan (1) Carotid stenosis, right: PLAN: -POD # 1 right CEA -resume home meds, advance diet, HLIV -DC art line -progressive ambulation -hope to DC later today
[2022-09-20 12:06] LABS: Bedside Glucose 175 mg/dL (74-106)
[2022-09-20 12:14] LABS: Pathologist Review Reviewed
--- NOTE | 2022-09-20 12:40 | CASEMGMT ---
MATEO BRUCE Assessment: Face to Face with pt for initial transition planning/care coordination assessment. RN TEO introduced self and role at [facility], pt voices understanding and consents to assessment. Pt is A/O x4 and answers all questions appropriately at this time. Pt sitting up in chair in no distress. Care providers, pharmacy, and demographics verified/updated. Admitting Dx: Rt carotid ednarterectomy PCP:Logan Specialists:bren López Preferred Pharmacy: [facility] Retail Insurance: [employer], [place] Prescription Benefit: yes LNOK: Zehra Farris, ; Grant Tapia, son Living Arrangements: Pt lives with in a single story home with 2 steps to enter. Pt reports he is I in ADL's and denies concerns at home. Transportation: Pt drives self and denies concerns with transportation. DME/HHC/SNF:Pt has a cane and walker at home but does not use. Pt also has grab bars in the bathroom. Pt denies hx of HHC or SNF stays. Pt states no concerns with going home at time of dc. Pt states no further concerns/needs. CM to follow. Advised pt to ask CM if any further question/concerns/needs arise, voices understanding. Pt Goal: Home Plan: Home
--- NOTE | 2022-09-20 13:47 | PCM.DC.SUM ---
Providers Date of Admission: 09/19/22 Date of Discharge: 09/20/22 Primary Care Physician: Dr. Harlan Ford DO Reason For Visit: RT CAROTID ENDARTERECTOMY Diagnosis Discharge Diagnosis (1) Carotid stenosis, right: Status: Acute Code(s): I65.21 - Occlusion and stenosis of right carotid artery Medications at Discharge Home Medications aspirin 81 mg tablet 81 mg PO DAILY BLOOD THINNER 09/06/22 clobetasol 0.05 % scalp solution 1 applic topical DAILY PSORIASIS 09/06/22 cyanocobalamin (vitamin B-12) 1,000 mcg tablet (Vitamin B-12) 1,000 mcg PO DAILY SUPPLEMENT 09/06/22 gabapentin 300 mg capsule 900 mg PO TID PAIN 09/06/22 glimepiride 4 mg tablet 4 mg PO DAILY DIABETES 09/06/22 offgybpstic-qsdbgqhqo-oie C-Mn 500 mg-400 mg capsule (Glucosamine Chondroitin Maximum Strength) 1 cap PO DAILY SUPPLEMENT 09/06/22 hydrochlorothiazide 12.5 mg capsule 12.5 mg PO DAILY BP 09/06/22 ketoconazole 2 % shampoo 1 applic topical Q14D Check with primary doctor 09/06/22 lamotrigine 25 mg tablet 25 mg PO DAILY PT UNSURE 09/06/22 losartan 50 mg tablet 50 mg PO DAILY BP 09/06/22 metformin 750 mg tablet,extended release 24 hr 750 mg PO BID DIABETES 09/06/22 metronidazole 0.75 % topical cream 1 applic topical BID PSORIASIS 09/06/22 potassium 99 mg tablet 99 mg PO DAILY SUPPLEMENT 09/06/22 magnesium oxide 500 mg capsule 500 mg PO DAILY SUPPLEMENT 09/10/22 atorvastatin 40 mg tablet 40 mg PO DAILY CHOLESTEROL 09/13/22 cholecalciferol (vitamin D3) 25 mcg (1,000 unit) capsule (Vitamin D3) 25 mcg PO DAILY SUPPLEMENT 09/13/22 clopidogrel 75 mg tablet 75 mg PO DAILY BLOOD THINNER 09/13/22 meloxicam 7.5 mg tablet 7.5 mg PO PRN PRN FOOT PAIN 09/13/22 pyridoxine (vitamin B6) 50 mg tablet (Vitamin B-6) 50 mg PO DAILY SUPPLEMENT 09/13/22 tamsulosin 0.4 mg capsule 0.4 mg PO DAILY@1730 30 days #30 caps 09/20/22 Hospital Course Operations - (right carotid endarterectomy) Summary of Care Provided Hospital Course: Patient was admitted following right carotid endarterectomy on 09/20/22 for hemodynamic and neurologic monitoring. The surgery went as planned and patient tolerated well. Incision was closed with absorbable sutures and skin glue, and PATTY drain was placed. He had mild hypotension post-operatively which resolved with IVF. The PATTY drain was removed on POD#1 without issue. He has been hemodynamically stable throughout his admission and BPs are at his reported baseline on day of discharge. He has remained neurogenically stable throughout discharge, pre-existing R eye vision loss was stable. On day of discharge, he was tolerating diet, voiding without difficulty, ambulating safely, and with pain well managed. He was discharged in medically stable condition with outpatient follow-up scheduled. Physical Exam Const oriented x3 and no apparent distress Resp normal respiratory effort and clear to auscultation bilaterally Cardio regular rate and regular rhythm Extremity full ROM and no clubbing, cyanosis or edema Skin no rashes or lesions noted Trauma: no lacerations or abrasions Wound Narrative: R neck incision site with satisfactory appearance, no significant swelling, bruising/hematoma, erythema, drainage. Skin glue intact, small dressing over PATTY drain site. Weight / BMI Weight Weight: 209 lb 7.026 oz Body Mass Index (BMI) 30.9 ABG / Lab / Microbiology Data Result Diagrams: 09/20/22 03:15 09/20/22 03:15 Laboratory: Laboratory Results - last 24 hr 09/19/22 13:00: Activated Clotting Time 143 H 09/19/22 13:49: Activated Clotting Time 335 H 09/19/22 14:38: Activated Clotting Time 287 H 09/19/22 16:35: POC Glucose 156 H 09/19/22 22:06: POC Glucose 322 H 09/20/22 03:15: WBC 3.5 L, RBC 3.26 L, Hgb 10.5 L, Hct 30.9 L, MCV 94.8 H, MCH 32.2 H, MCHC 34.0, RDW Std Deviation 44.1 H, RDW Coeff of [place] 12.8, Plt Count 68 L, MPV 8.4, Immature Gran % (Auto) 0.300, Neut % (Auto) 86.7 H, Lymph % (Auto) 7.5 L, [place] % (Auto) 5.2, Eos % (Auto) 0.0, Baso % (Auto) 0.3, Absolute Neuts (auto) 3.0, Absolute Lymphs (auto) 0.26 L, Nucleated RBC % 0, Differential Comment SCANNED, Diff Path Review Reviewed, Platelet Estimate MOD 09/20/22 03:15: Sodium 135 L, Potassium 4.2, Chloride 100, Carbon Dioxide 25.0, Anion Gap 10, BUN 24 H, Creatinine 1.27, Estim Creat Clear Calc 50.26, Est GFR (MDRD) Af Amer 71, Est GFR (MDRD) Non-Af 59 L, BUN/Creatinine Ratio 18.9, Glucose 220 H, Calcium 8.9, Phosphorus 3.2, Magnesium 1.5 L 09/20/22 11:39: POC Glucose 175 H D/C Instructions Discharge Diet: No restrictions May shower in (days): 1 Weight Bearing Status: Weight bearing as tolerated Lifting Restricted to (Lbs): 20 Call your doctor if your incision/area has: Sudden Increased Bleeding, Increased Pain/ Swelling and Foul Smelling Discharge Call your doctor if you observe: Fever of 101 or Higher Remove Dressing in: 1 day Additional Dressing/Incision Instructions: Your incision site is closed with skin glue which is protecting the incision, no need to cover with any other dressing. This glue will slowly flake off over the next few weeks. There is a small dressing overlying the site where the drain was, you may remove this tomorrow. You can leave open or cover with a bandaid to your comfort. You may shower and allow soap/water to rinse over incision site. Do not take a bath or submerge the incision site in water for 3 weeks. Additional Instructions: You may shower tomorrow. You may remove the small adhesive dressing tomorrow. You should not bathe/submerge the incision in water for 3 weeks. You should not lift greater than 20 pounds for 3 weeks. Please check your BP daily at home, if it is running lower than usual or you are feeling dizzy/light-headed call the office. You declined prescription pain medication, if you feel like you need pain medication once you are home, please call the office. Continue to take aspirin and Plavix daily as prescribed until your follow-up appointment. You have a follow-up appointment in the office on 10/11/2022. Please Follow Up With: Sony López MD When: 10/11/2022 Meaningful Use Info Meaningful Use Diagnoses (Choose all that apply): None applicable Discharge Plan Admission Admit Date/Time: 09/19/22 09:46 Primary Reason for Your Visit: Right carotid endarterectomy Attending Provider: Sony López Primary Care Provider: Harlan Ford Consulting Providers: Sony Roberts Discharge Orders/Prescriptions Prescriptions: New tamsulosin 0.4 mg Capsule 0.4 mg PO DAILY@1730 30 Days Qty: 30 0RF Continued magnesium oxide 500 mg capsule 500 mg PO DAILY gabapentin 300 mg Capsule 900 mg PO TID aspirin 81 mg Tablet 81 mg PO DAILY clobetasol 0.05 % Solution 1 applic TOPICAL DAILY losartan 50 mg Tablet 50 mg PO DAILY ketoconazole 2 % Shampoo 1 applic TOPICAL Q14D cyanocobalamin (vitamin B-12) [Vitamin B-12] 1,000 mcg Tablet 1,000 mcg PO DAILY lamotrigine 25 mg Tablet 25 mg PO DAILY glimepiride 4 mg Tablet 4 mg PO DAILY metronidazole 0.75 % Cream 1 applic TOPICAL BID hydrochlorothiazide 12.5 mg Capsule 12.5 mg PO DAILY [id number]-pahpgfdbu-wxc C-Mn [Glucosamine Chondroitin MaxStr] 500-400 mg Capsule 1 cap PO DAILY metformin 750 mg Tablet Extended Release 24 Hr 750 mg PO BID potassium 99 mg Tablet 99 mg PO DAILY meloxicam 7.5 mg tablet 7.5 mg PO PRN PRN (Reason: FOOT PAIN) Label Comments: TAKE 1 TABLET BY MOUTH ONCE DAILY. NEEDED FOR FOOT PAIN, WITH FOOD. pyridoxine (vitamin B6) [Vitamin B-6] 50 mg Tablet 50 mg PO DAILY cholecalciferol (vitamin D3) [Vitamin D3] 25 mcg (1,000 unit) Capsule 25 mcg PO DAILY atorvastatin 40 mg tablet 40 mg PO DAILY clopidogrel 75 mg tablet 75 mg PO DAILY Referrals / Follow Up: Harlan Ford DO [Primary Care Provider] - Disposition Disposition (needs filled in before D/C Order can be placed): Home, Self Care
== END 2022-09-20 15:00 | disposition home or self-care (01) | DRG 39 ==
LOC: ACINP 09:47 → ICU 16:33
PROVIDERS: Anesthesiology; Admitting Provider Surgery Trauma Surgery; PCP Student in an Organized Health Care Education/Training Program; Referring Provider Surgery Trauma Surgery; Visit Provider Surgery Trauma Surgery
PROC: 03CK0ZZ Extirpation of Matter from Right Internal Carotid Artery, Open Approach (ICD-10-PCS; CPT 35301; principal; 2022-09-19 11:40)
DX: I65.21 Occlusion and stenosis of right carotid artery (principal); E11.9 Type 2 diabetes mellitus without complications; H54.61 Unqualified visual loss, right eye, normal vision left eye; I10 Essential (primary) hypertension; E78.00 Pure hypercholesterolemia, unspecified; I95.81 Postprocedural hypotension; Z79.82 Long term (current) use of aspirin; Z79.02 Long term (current) use of antithrombotics/antiplatelets; Z79.84 Long term (current) use of oral hypoglycemic drugs; Z79.899 Other long term (current) drug therapy
CPT/HCPCS: 80048; 82962; 83036; 83735; 84100; 85025; 85347; 88304; 88311; 94668; 94762; 97802; 99252; A4648; J7040; J7120; G0463; J2405

== ENCOUNTER 2022-12-16 22:29 | Emergency (ER) | payer MEDICARE, OTHER, SELFPAY ==
[2022-12-16 22:30] VITALS: BP 154/64; PULSE 93; RESP 15; TEMP 37.5; O2SAT 98; BMI 30.9
[2022-12-17 00:06] LABS: Absolute Lymphocyte Count 0.31 X10^3/uL (0.83-4.51); Absolute Neutrophil Count 4.9 X10^3/uL (2.0-7.7); Basophil# 0.01 X10^3/uL; Basophil% 0.2 % (0-1); Differential Indicated SCAN CRITERIA MET; Eosinophil# 0.01 X10^3/uL; Eosinophils% 0.2 % (0-5); Hematocrit 36.6 % (40-54); Hemoglobin 12.4 g/dL (13.0-16.5); Lymphocyte # 0.31 X10^3/ul (0.83-4.51); Lymphocyte % 5.4 % (19-41); Mean Corp Hgb Conc 33.9 g/dL (32-36); Mean Corpuscular Hgb 32.1 pg (27.0-32.0); Mean Corpuscular Volume 94.8 fL (80-94); Mean Platelet Vol. 8.8 fl (6.2-12.0); Monocyte# 0.52 X10^3/uL; NRBC Flagged by Analyzer 0 % (0-5); Neutrophil # 4.88 X10^3/uL (2.7-7.7); Neutrophil % 84.7 % (47-70); POSITIVE COUNT YES; POSITIVE DIFFERENTIAL YES; Platelet Count 73 K/mm3 (150-450); RBC Distribution Width CV 13.3 % (11.6-14.6); RBC Distribution Width SD 46.3 fl (35.1-43.9); Red Blood Count 3.86 M/mm3 (4.6-6.2); White Blood Count 5.8 K/mm3 (4.4-11.0)
[2022-12-17 00:17] LABS: Anion Gap 8 (5-15); BUN 21 mg/dL (7-18); BUN/Creat Ratio 18.4 RATIO (10-20); Calcium,Total 9.3 mg/dL (8.5-10.1); Chloride 103 mmol/L (98-107); Creatinine, Serum 1.14 mg/dL (0.70-1.30); EST Glomerular Filtration Rate 66 mL/min (>60); Est Glom Filt Rate - Afr Amer 80 mL/min (>60); Estimated Creatinine Clearance 54.17 ml/min; Glucose 257 mg/dL (74-106); Potassium 3.8 mmol/L (3.5-5.1); Sodium Level 139 mmol/L (136-145)
[2022-12-17 00:20] LABS: Macrocytosis RARE
[2022-12-17 00:21] LABS: Platelet Estimate MOD DEC (ADEQ)
[2022-12-17] MEDS: 0.9% Normal Saline 1,000 ML 999 ML IV (00:27)
[2022-12-17 00:30] VITALS: PULSE 89; RESP 17; O2SAT 96
[2022-12-17 01:23] LABS: Bacteria 0 SEEN /hpf (None Seen); Mucous, Urine 0 SEEN /hpf (<or=2+); Squamous Epithelial Cells - UA 0 SEEN /hpf (0-5); White Blood Cells 0 SEEN /hpf (0-5)
[2022-12-17 01:29] LABS: Glucose, Dipstick 1000 mg/dl (Normal); Ketone-Dipstick Negative (Negative); Leukocyte Esterase-Dipstick Negative /ul (Negative); Nitrite-Dipstick Negative (Negative); Occult Blood-Urine 25 /ul (Negative); Protein-Dipstick 30 mg/dl (Negative); Specific Gravity, Urine 1.015 (1.002-1.030); Urine Bilirubin Dipstick Negative (Negative); Urine Urobilinogen Normal (Normal)
[2022-12-17 01:30] LABS: Color, Urine Yellow (Yellow); Urine Clarity Clear (Clear)
[2022-12-17 02:08] LABS: Red Blood Cells-Urine 0-5 SEEN /hpf (0-5)
[2022-12-17 02:16] VITALS: PULSE 81; RESP 17; O2SAT 97
--- NOTE | 2022-12-17 02:17 | EDS_ITS ---
HPI History of Present Illness Chief Complaint: Hyperglycemia Informant: patient and family Narrative Narrative: Patient is a 76-year-old male with past medical history of diabetes. He states he does not use insulin but his oral antiglycemic's and does not typically check his blood sugar. He reports that today he noticed some right-sided facial swelling without any type of trauma. Family states that later in the day/evening he appeared to be somewhat off and secondary to this his blood sugar was checked at home. The sugar was elevated at approximately 300 and family had concern that this was the cause of his symptoms and therefore he was brought in for evaluation [facility] Medical History (Updated 12/20/22 @ 07:[address] Abilio Manrique, DO) Diabetes mellitus Easy bruising Excessive bleeding High cholesterol History of pain when walking Hypercholesteremia Hypertension Non-smoker Vision loss, right eye Wears glasses Wears partial dentures Home Medications aspirin 81 mg tablet 81 mg PO DAILY BLOOD THINNER 09/06/22 [History Last Taken 09/19/22] clobetasol 0.05 % scalp solution 1 applic topical DAILY PSORIASIS 09/06/22 [History Last Taken Unknown] cyanocobalamin (vitamin B-12) 1,000 mcg tablet (Vitamin B-12) 1,000 mcg PO DAILY SUPPLEMENT 09/06/22 [History Last Taken Unknown] gabapentin 300 mg capsule 900 mg PO TID PAIN 09/06/22 [History Last Taken 09/19/22] glimepiride 4 mg tablet 4 mg PO BID DIABETES 09/06/22 [History Last Taken Unknown] ibmledmxuwv-alnqaerxd-ipp C-Mn 500 mg-400 mg capsule (Glucosamine Chondroitin Maximum Strength) 1 cap PO DAILY SUPPLEMENT 09/06/22 [History Last Taken Unknown] hydrochlorothiazide 12.5 mg capsule 12.5 mg PO DAILY BP 09/06/22 [History Last Taken Unknown] ketoconazole 2 % shampoo 1 applic topical Q14D Check with primary doctor 09/06/22 [History Last Taken Unknown] lamotrigine 25 mg tablet 25 mg PO DAILY PT UNSURE 09/06/22 [History Last Taken 09/19/22] losartan 50 mg tablet 50 mg PO DAILY BP 09/06/22 [History Last Taken 09/19/22] metformin 750 mg tablet,extended release 24 hr 750 mg PO BID DIABETES 09/06/22 [History Last Taken Unknown] metronidazole 0.75 % topical cream 1 applic topical BID PSORIASIS 09/06/22 [History Last Taken Unknown] potassium 99 mg tablet 99 mg PO DAILY SUPPLEMENT 09/06/22 [History Last Taken Unknown] magnesium oxide 500 mg capsule 500 mg PO DAILY SUPPLEMENT 09/10/22 [History Last Taken Unknown] cholecalciferol (vitamin D3) 25 mcg (1,000 unit) capsule (Vitamin D3) 25 mcg PO DAILY SUPPLEMENT 09/13/22 [History Last Taken Unknown] meloxicam 7.5 mg tablet 7.5 mg PO PRN PRN FOOT PAIN 09/13/22 [History Last Taken Unknown] pyridoxine (vitamin B6) 50 mg tablet (Vitamin B-6) 50 mg PO DAILY SUPPLEMENT 09/13/22 [History Last Taken Unknown] tamsulosin 0.4 mg capsule 0.4 mg PO DAILY@1730 30 days #30 caps 09/20/22 [Rx Last Taken Unknown] simvastatin 20 mg tablet 20 mg PO DAILY 10/11/22 [History Last Taken Unknown] amoxicillin 875 mg-potassium clavulanate 125 mg tablet 1 tab PO BID 7 days #14 tabs 12/17/22 [Rx Last Taken Unknown] Allergy/AdvReac Type Severity Reaction Status Date / Time pregabalin [From Lyrica] AdvReac Other Verified 12/16/22 22:34 Surgical History Hx laparoscopic cholecystectomy Hx of bilateral cataract extraction Hx of colonoscopy Hx of hernia repair Hx of total knee replacement Social History Smoking Status: Never smoker ROS ROS ED Constitutional Constitutional ED: Denies chills or fever(s) Eyes Eyes: Denies change in vision ENT ENT ED: Reports other Details: Positive facial swelling Negative dental pain ; Denies sore throat Cardiovascular Cardiovascular: Denies chest pain Respiratory/Chest Respiratory/Chest: Denies cough or dyspnea Gastrointestinal Gastrointestinal: Denies abdominal pain, diarrhea, nausea or vomiting Genitourinary Genitourinary ED: Denies dysuria or hematuria Musculoskeletal Musculoskeletal: Denies myalgias Integumentary Denies rash Neurologic Neurologic: Denies headache(s) or weakness Hematologic/Lymphatic Hematologic/Lymphatic: Denies easy bleeding or easy bruising EXAM Physical Exam Const Vital Signs: 12/16/22 22:30 12/17/22 00:30 Temperature 99.5 F H Temperature Source Temporal Pulse Rate 93 89 Respiratory Rate 15 17 Blood Pressure 154/64 H Blood Pressure Mean 94 Pulse Ox 98 96 Oxygen Delivery Method Room Air Room Air Positive well nourished and well developed General Appearance ED: well developed HEENT Reports dry mucous membranes HEENT Narrative: Patient has soft tissue swelling with faint erythema over top the right lateral cheek over top the region of the parotid gland most consistent with parotiditis. No obvious abscess formation noted or lymphangitic streaking Mucous membranes are slightly dry and tacky there is no oral lesions no airway edema or compromise no signs of posterior pharynx infection Mouth ED: Yes dry mucous membranes Mouth: dry mucous membranes Eyes PERRL and EOMs intact bilaterally General Eye ED: Negative for scleral icterus Neck supple Neck Narrative: No nuchal rigidity or meningeal signs present Resp normal respiratory effort and clear to auscultation bilaterally Cardio regular rate and regular rhythm Rate: other Other Details: Radial pulses are plus 2 out of 4 bilaterally are equal and symmetric GI normal to inspection, nondistended, normoactive bowel sounds, non-tender, non- distended and no masses GI Narrative: No voluntary guarding or rigidity no pulsatile mass Auscultation: normoactive bowel sounds Palpation: soft Extremity normal to inspection Neuro oriented x3, CN's II-XII intact bilaterally and no sensory deficits noted Neuro Narrative: NIH stroke scale score of 0 Sensorium / Orientation: alert Psych mental status grossly normal Skin no rashes or lesions noted General Skin Exam: Negative for jaundice MDM MDM MDM Narrative Medical decision making narrative: Patient presented to the ER with low-grade temperature but otherwise awake and alert and oriented person place and time with NIH stroke scale score of 0. He takes oral antiglycemic's not insulin and concern for DKA or HHS is low based on this but still possible. Therefore a basic work-up was obtained in order to check for infectious process such as UTI as a cause of his hyperglycemia. Lab work revealed no clinically significant findings such as leukocytosis or left shift. He has no electrolyte derangement or signs of acute kidney injury. Blood sugar is only mildly elevated at 257 and there is no signs of DKA or HHS as his anion gap is not elevated his bicarb is normal and his serum osmolality is less than 320. Urine sample revealed no signs of UTI indicating that most likely he has an infected parotid gland based on his facial swelling as a cause of his hyperglycemia. However at this time as it is not causing signs of respiratory distress or septicemia he can be started on antibiotics and otherwise discharged home History & Record Review Discussion w/independent historian: Patient and Family Lab Data Attestation: I reviewed the patient's lab results. Labs: Laboratory Results - last 24 hr 12/16/22 12/16/22 12/16/22 23:43 23:43 23:43 WBC 5.8 RBC 3.86 L Hgb 12.4 L Hct 36.6 L MCV 94.8 H MCH 32.1 H MCHC 33.9 RDW Std Deviation 46.3 H RDW Coeff of [place] 13.3 Plt Count 73 L MPV 8.8 Immature Gran % (Auto) 0.500 Neut % (Auto) 84.7 H Lymph % (Auto) 5.4 L Garza % (Auto) 9.0 Eos % (Auto) 0.2 Baso % (Auto) 0.2 Absolute Neuts (auto) 4.9 Absolute Lymphs (auto) 0.31 L Nucleated RBC % 0 Platelet Estimate MOD DEC Macrocytosis RARE Sodium 139 Potassium 3.8 Chloride 103 Carbon Dioxide 28.0 Anion Gap 8 BUN 21 H Creatinine 1.14 Estim Creat Clear Calc 54.17 Est GFR (MDRD) Af Amer 80 Est GFR (MDRD) Non-Af 66 BUN/Creatinine Ratio 18.4 Glucose 257 H Calcium 9.3 Urine Color Urine Clarity Urine pH Ur Specific [place] Urine Protein Urine Glucose (UA) Urine Ketones Urine Occult Blood Urine Nitrite Urine Bilirubin Urine Urobilinogen Ur Leukocyte Esterase Urine RBC Urine WBC Ur Squamous Epith Cells Urine Bacteria Urine Mucus Acetone Level NEGATIVE 12/17/22 01:19 WBC RBC Hgb Hct MCV MCH MCHC RDW Std Deviation RDW Coeff of [place] Plt Count MPV Immature Gran % (Auto) Neut % (Auto) Lymph % (Auto) Garza % (Auto) Eos % (Auto) Baso % (Auto) Absolute Neuts (auto) Absolute Lymphs (auto) Nucleated RBC % Platelet Estimate Macrocytosis Sodium Potassium Chloride Carbon Dioxide Anion Gap BUN Creatinine Estim Creat Clear Calc Est GFR (MDRD) Af Amer Est GFR (MDRD) Non-Af BUN/Creatinine Ratio Glucose Calcium Urine Color Yellow Urine Clarity Clear Urine pH 6.0 Ur Specific [place] 1.015 Urine Protein 30 H Urine Glucose (UA) 1000 H Urine Ketones Negative Urine Occult Blood 25 H Urine Nitrite Negative Urine Bilirubin Negative Urine Urobilinogen Normal Ur Leukocyte Esterase Negative Urine RBC 0-5 SEEN Urine WBC 0 SEEN Ur Squamous Epith Cells 0 SEEN Urine Bacteria 0 SEEN Urine Mucus 0 SEEN Acetone Level Discharge Plan Triage Chief Complaint: Hyperglycemia ED Provider: Abilio Manrique Dx/Rx/DC Orders Clinical Impression: Hyperglycemia, Acute parotitis, Non-insulin dependent diabetes mellitus Instructions: High Blood Sugar (Hyperglycemia), ED Salivary Gland Infection Prescriptions: New amoxicillin-pot clavulanate 875-125 mg tablet 1 tab PO BID 7 Days Qty: 14 0RF No Action magnesium oxide 500 mg capsule 500 mg PO DAILY simvastatin 20 mg tablet 20 mg PO DAILY gabapentin 300 mg Capsule 900 mg PO TID aspirin 81 mg Tablet 81 mg PO DAILY clobetasol 0.05 % Solution 1 applic TOPICAL DAILY losartan 50 mg Tablet 50 mg PO DAILY ketoconazole 2 % Shampoo 1 applic TOPICAL Q14D cyanocobalamin (vitamin B-12) [Vitamin B-12] 1,000 mcg Tablet 1,000 mcg PO DAILY lamotrigine 25 mg Tablet 25 mg PO DAILY glimepiride 4 mg Tablet 4 mg PO BID metronidazole 0.75 % Cream 1 applic TOPICAL BID hydrochlorothiazide 12.5 mg Capsule 12.5 mg PO DAILY ialwqitcqhc-egblpvreu-vfb C-Mn [Glucosamine Chondroitin MaxStr] 500-400 mg Capsule 1 cap PO DAILY metformin 750 mg Tablet Extended Release 24 Hr 750 mg PO BID potassium 99 mg Tablet 99 mg PO DAILY meloxicam 7.5 mg tablet 7.5 mg PO PRN PRN (Reason: FOOT PAIN) Label Comments: TAKE 1 TABLET BY MOUTH ONCE DAILY. NEEDED FOR FOOT PAIN, WITH FOOD. pyridoxine (vitamin B6) [Vitamin B-6] 50 mg Tablet 50 mg PO DAILY cholecalciferol (vitamin D3) [Vitamin D3] 25 mcg (1,000 unit) Capsule 25 mcg PO DAILY tamsulosin 0.4 mg Capsule 0.4 mg PO DAILY@1730 30 Days Qty: 30 0RF Primary Care Provider: Harlan Ford Referrals: Harlan Ford DO [Primary Care Provider] - Activity Restrictions/Additional Instructions: Your work-up shows no signs of DKA or HHS related to your hyperglycemia. However does appear you are developing an infection of your parotid gland and therefore take the antibiotic as directed. There may also be a stone in that gland and therefore please suck on sour tart candies to help remove any stone that may be present. If you have any further concerns please return to the hospital for repeat evaluation Disposition Disposition: Home, Self Care Discharge Date/Time: 12/17/22 02:29
[2022-12-17] MEDS: Amox/Clavulanate 875 MG Tablet PO (02:27)
== END 2022-12-17 02:29 | disposition home or self-care (01) ==
PROVIDERS: Emergency Provider Emergency Medicine; PCP Student in an Organized Health Care Education/Training Program; Visit Provider Emergency Medicine
DX: E11.65 Type 2 diabetes mellitus with hyperglycemia (principal); K11.20 Sialoadenitis, unspecified; I10 Essential (primary) hypertension; E78.00 Pure hypercholesterolemia, unspecified; Z79.84 Long term (current) use of oral hypoglycemic drugs; Z79.82 Long term (current) use of aspirin; Z79.899 Other long term (current) drug therapy
CPT/HCPCS: 80048; 81001; 82009; 85025; 96360; 99284; J7030; A4216

== ENCOUNTER 2023-01-05 09:15 | Emergency (ER) | payer MEDICARE, OTHER, SELFPAY ==
[2023-01-05 09:16] VITALS: BP 158/52; PULSE 88; RESP 18; TEMP 36.8; O2SAT 96; BMI 29.9
--- NOTE | 2023-01-05 09:33 | EKG12_ITS ---
Test Reason : N/V Blood Pressure : / mmHG Vent. Rate : 086 BPM Atrial Rate : 086 BPM P-R Int : 144 ms QRS Dur : 080 ms QT Int : 362 ms P-R-T Axes : 033 014 025 degrees QTc Int : 433 ms Normal sinus rhythm Nonspecific ST abnormality Abnormal ECG Confirmed by FRIDA ASIF, PAPI ([id number]), marketing editor MENDOZA EVANS ([id number]) on 01/07/2023 12:35:18 PM Referred By: Confirmed By:PAPI GALICIA MD
--- NOTE | 2023-01-05 09:34 | EX.ED.DYSGE1 ---
HPI History of Present Illness Chief Complaint: Nausea/Vomiting Detail of Chief Complaint: Vomiting Informant: patient and family Narrative Narrative: Patient presents via EMS from home with complaint of vomiting. Patient apparently started vomiting in the middle the night and is thrown up about 2-3 times. Patient's son tells me EMS was out to his house yesterday because patient was acting somewhat confused per . Patient had had 3-4 beers and had only had 1 bottle of water and it was felt that maybe was a little dehydrated. Patient also was at our emergency department few weeks ago with some confusion and after fluids sensorium returned back to normal and he had been fine since. Patient denies any falls or head injuries. He denies recent travel. He denies diarrhea. Denies chest pain. Denies eating any undercooked foods. Patient denies urinary symptoms. [facility] Medical History (Updated 01/05/23 @ 12:[address] Clay Kidd, DO) Diabetes mellitus Easy bruising Excessive bleeding High cholesterol History of pain when walking Hypercholesteremia Hypertension Non-smoker Vision loss, right eye Wears glasses Wears partial dentures Home Medications aspirin 81 mg tablet 81 mg PO DAILY BLOOD THINNER 09/06/22 [History Last Taken 09/19/22] clobetasol 0.05 % scalp solution 1 applic topical DAILY PSORIASIS 09/06/22 [History Last Taken Unknown] cyanocobalamin (vitamin B-12) 1,000 mcg tablet (Vitamin B-12) 1,000 mcg PO DAILY SUPPLEMENT 09/06/22 [History Last Taken Unknown] gabapentin 300 mg capsule 900 mg PO TID PAIN 09/06/22 [History Last Taken 09/19/22] glimepiride 4 mg tablet 4 mg PO BID DIABETES 09/06/22 [History Last Taken Unknown] wedxinfwpxf-ffjrhwdpy-fkg C-Mn 500 mg-400 mg capsule (Glucosamine Chondroitin Maximum Strength) 1 cap PO DAILY SUPPLEMENT 09/06/22 [History Last Taken Unknown] hydrochlorothiazide 12.5 mg capsule 12.5 mg PO DAILY BP 09/06/22 [History Last Taken Unknown] ketoconazole 2 % shampoo 1 applic topical Q14D Check with primary doctor 09/06/22 [History Last Taken Unknown] lamotrigine 25 mg tablet 25 mg PO DAILY PT UNSURE 09/06/22 [History Last Taken 09/19/22] losartan 50 mg tablet 50 mg PO DAILY BP 09/06/22 [History Last Taken 09/19/22] metformin 750 mg tablet,extended release 24 hr 750 mg PO BID DIABETES 09/06/22 [History Last Taken Unknown] metronidazole 0.75 % topical cream 1 applic topical BID PSORIASIS 09/06/22 [History Last Taken Unknown] potassium 99 mg tablet 99 mg PO DAILY SUPPLEMENT 09/06/22 [History Last Taken Unknown] magnesium oxide 500 mg capsule 500 mg PO DAILY SUPPLEMENT 09/10/22 [History Last Taken Unknown] cholecalciferol (vitamin D3) 25 mcg (1,000 unit) capsule (Vitamin D3) 25 mcg PO DAILY SUPPLEMENT 09/13/22 [History Last Taken Unknown] meloxicam 7.5 mg tablet 7.5 mg PO PRN PRN FOOT PAIN 09/13/22 [History Last Taken Unknown] pyridoxine (vitamin B6) 50 mg tablet (Vitamin B-6) 50 mg PO DAILY SUPPLEMENT 09/13/22 [History Last Taken Unknown] tamsulosin 0.4 mg capsule 0.4 mg PO DAILY@1730 30 days #30 caps 09/20/22 [Rx Last Taken Unknown] simvastatin 20 mg tablet 20 mg PO DAILY 10/11/22 [History Last Taken Unknown] amoxicillin 875 mg-potassium clavulanate 125 mg tablet 1 tab PO BID 7 days #14 tabs 12/17/22 [Rx Last Taken Unknown] cephalexin 500 mg capsule 500 mg PO Q6 #28 CAPSULES 01/05/23 [Rx Last Taken Unknown] ondansetron 4 mg disintegrating tablet 4 mg PO Q8H PRN PRN Nausea #10 tabs 01/05/23 [Rx Last Taken Unknown] Allergy/AdvReac Type Severity Reaction Status Date / Time pregabalin [From Lyrica] AdvReac Other Verified 01/05/23 09:20 Surgical History Hx laparoscopic cholecystectomy Hx of bilateral cataract extraction Hx of colonoscopy Hx of hernia repair Hx of total knee replacement Social History Smoking Status: Never smoker ROS ROS ED Review of Systems ROS Unobtainable: other Constitutional Constitutional ED: Reports lethargy; Denies chills, fever(s), sweats or weight loss Eyes Eyes: Denies blurry vision, change in vision or diplopia ENT ENT ED: Denies rhinorrhea or sore throat Cardiovascular Cardiovascular: Denies chest pain, orthopnea or racing heartbeat Respiratory/Chest Respiratory/Chest: Denies cough, dyspnea, dyspnea on exertion, orthopnea or sputum Gastrointestinal Gastrointestinal: Reports nausea and vomiting; Denies abdominal pain or diarrhea Genitourinary Genitourinary ED: Denies dysuria, hematuria or urinary frequency Musculoskeletal Musculoskeletal: Denies arthralgias, back pain, myalgias or neck pain Integumentary Denies abscess, Abrasions or rash Neurologic Neurologic: Denies headache(s) or weakness Psychiatric Psychiatric: Denies anxiety, depression or suicidal thoughts Endocrine Endocrinology: Denies polydipsia, polyphagia or polyuria Hematologic/Lymphatic Hematologic/Lymphatic: Denies easy bleeding, easy bruising or lymphadenopathy Allergic/Immunologic Allergic/Immunologic ED: Denies mouth swelling, tongue swelling or urticaria EXAM Physical Exam Const Vital Signs: 01/05/23 09:16 01/05/23 11:41 01/05/23 13:12 Temperature 98.2 F Temperature Source Temporal Pulse Rate 88 79 78 Respiratory Rate 18 18 18 Blood Pressure 158/52 H 144/48 H 132/64 H Blood Pressure Mean 87 80 86 Pulse Ox 96 96 95 Oxygen Delivery Method Room Air Room Air Room Air Positive well nourished and well developed General Appearance ED: well developed and NAD HEENT Reports TM's clear and moist mucous membranes normocephalic and atraumatic; Negative for trauma or tenderness Tympanic Membrane ED: Yes TM's clear Eyes PERRL and EOMs intact bilaterally General Eye ED: Negative for pale conjunctiva or scleral icterus Neck no lymphadenopathy, supple and no JVD General: Negative for tenderness Chest Wall inspection of chest normal and palpation of chest normal Chest: Negative for tenderness Resp normal respiratory effort and clear to auscultation bilaterally Effort and Inspection: Negative for respiratory distress or pain with movement Auscultation: Negative for rhonchi, wheezes or diminished lung sounds Cardio regular rate, regular rhythm, S1 normal heart sound, S2 normal heart sound and no murmurs Peripheral Pulses: pulses 2+ throughout GI normal to inspection, nondistended, normoactive bowel sounds, soft to palpation, non-tender, non-distended and no masses Back/Spine no CVA tenderness and no thoracic nor lumbar tenderness Extremity normal to inspection General Extremety ED: Negative for edema General Extremity: Negative for edema Neuro oriented x3, CN's II-XII intact bilaterally, no sensory deficits noted and gait normal Sensorium / Orientation: awake, alert, oriented to person, oriented to place and oriented to time Motor Exam: strength 5/5 throughout and strength abnormal Psych mental status grossly normal Skin no rashes or lesions noted and no wounds MDM MDM MDM Narrative Medical decision making narrative: Patient presents with vomiting complaint of not feeling well and some confusion. In the differential would be cardiac etiology versus viral gastroenteritis versus UTI versus acute intra-abdominal process. Patient not complaining of abdominal pain and his abdominal exam is benign. IV line established. Patient was medicated with Zofran 4 mg IV and given a liter normal same fluid bolus. CBC with differential showed a white of 7.5 with a hemoglobin of 13 and platelet count of 68,000. Patient's platelet count chronically depressed. Patient troponin was negative and delta troponin 2 hours also negative. EKG obtained arrival shows sinus rhythm with a rate of [address] changes. LFTs were unremarkable other than his total bilirubin was elevated 2.8. Alcohol was less than 3. Patient had a urinalysis that was positive for nitrites as well as WBCs and bacteria. Patient was given Rocephin 1 g IV. Urine culture was sent. Patient had no further vomiting. I suspect a lot of the patient's symptoms likely related to UTI. Patient will be given a prescription for Keflex and Zofran. Patient advised to follow-up with his primary care physician within next 3 to 5 days. Patient advised to push fluids. Patient to return if persistent vomiting, severe back pain, dehydration, or condition worsening way. Lab Data Attestation: I reviewed the patient's lab results. Labs: Laboratory Results - last 24 hr 01/05/23 01/05/23 01/05/23 09:35 10:55 10:57 WBC 7.5 RBC 4.16 L Hgb 13.4 Hct 39.2 L MCV 94.2 H MCH 32.2 H MCHC 34.2 RDW Std Deviation 46.4 H RDW Coeff of [place] 13.4 Plt Count 68 L MPV 8.9 Immature Gran % (Auto) 0.900 Neut % (Auto) 87.8 H Lymph % (Auto) 4.5 L [place] % (Auto) 6.7 Eos % (Auto) 0.0 Baso % (Auto) 0.1 Absolute Neuts (auto) 6.6 Absolute Lymphs (auto) 0.34 L Nucleated RBC % 0 Differential Comment SCANNED Sodium 131 L Potassium 3.7 Chloride 95 L Carbon Dioxide 25.0 Anion Gap 11 BUN 19 H Creatinine 1.24 Estim Creat Clear Calc 50.68 Est GFR (MDRD) Af Amer 73 Est GFR (MDRD) Non-Af 60 BUN/Creatinine Ratio 15.3 Glucose 166 H Calcium 9.3 Total Bilirubin 2.80 H AST 29 ALT 35 Alkaline Phosphatase 74 Troponin I High Sens 12 13 Total Protein 7.8 Albumin 3.7 Globulin 4.1 Albumin/Globulin Ratio 0.9 Lipase 48 Urine Color Yellow Urine Clarity Clear Urine pH 5.0 Ur Specific [place] 1.020 Urine Protein 100 H Urine Glucose (UA) 100 H Urine Ketones 50 H Urine Occult Blood 50 H Urine Nitrite Positive H Urine Bilirubin Negative Urine Urobilinogen Normal Ur Leukocyte Esterase 500 H Urine RBC 0 SEEN Urine WBC 50-100 SEEN Ur Squamous Epith Cells 0 SEEN Urine Bacteria 2+ Urine Mucus 0 SEEN Ethyl Alcohol < 3.0 EKG Initial EKG: Attestation: I personally reviewed and interpreted this EKG as follows: Comments: Sinus rhythm with a rate of [address] changes Discharge Plan Triage Chief Complaint: Nausea/Vomiting ED Provider: Clay Kidd Dx/Rx/DC Orders Clinical Impression: Acute confusion, Acute UTI, Vomiting Instructions: ED ALOC, ED Bladder Infection, Male (Adult), ED Vomiting (Adult) Prescriptions: New cephalexin [cephalexin] 500 mg capsule 500 mg PO Q6 Qty: 28 0RF ondansetron [ondansetron] 4 mg tablet,disintegrating 4 mg PO Q8H PRN PRN (Reason: Nausea) Qty: 10 0RF No Action magnesium oxide 500 mg capsule 500 mg PO DAILY simvastatin 20 mg tablet 20 mg PO DAILY gabapentin 300 mg Capsule 900 mg PO TID aspirin 81 mg Tablet 81 mg PO DAILY clobetasol 0.05 % Solution 1 applic TOPICAL DAILY losartan 50 mg Tablet 50 mg PO DAILY ketoconazole 2 % Shampoo 1 applic TOPICAL Q14D cyanocobalamin (vitamin B-12) [Vitamin B-12] 1,000 mcg Tablet 1,000 mcg PO DAILY lamotrigine 25 mg Tablet 25 mg PO DAILY glimepiride 4 mg Tablet 4 mg PO BID metronidazole 0.75 % Cream 1 applic TOPICAL BID hydrochlorothiazide 12.5 mg Capsule 12.5 mg PO DAILY [id number]-[id number]-mno C-Mn [Glucosamine Chondroitin MaxStr] 500-400 mg Capsule 1 cap PO DAILY metformin 750 mg Tablet Extended Release 24 Hr 750 mg PO BID potassium 99 mg Tablet 99 mg PO DAILY meloxicam 7.5 mg tablet 7.5 mg PO PRN PRN (Reason: FOOT PAIN) Patient Comments: TAKE 1 TABLET BY MOUTH ONCE DAILY. NEEDED FOR FOOT PAIN, WITH FOOD. pyridoxine (vitamin B6) [Vitamin B-6] 50 mg Tablet 50 mg PO DAILY cholecalciferol (vitamin D3) [Vitamin D3] 25 mcg (1,000 unit) Capsule 25 mcg PO DAILY tamsulosin 0.4 mg Capsule 0.4 mg PO DAILY@1730 30 Days Qty: 30 0RF amoxicillin-pot clavulanate 875-125 mg tablet 1 tab PO BID 7 Days Qty: 14 0RF Primary Care Provider: Harlan Ford Referrals: Harlan Ford DO [Primary Care Provider] - 3-5 Days Disposition Disposition: Home, Self Care Discharge Date/Time: 01/05/23 13:26
[2023-01-05 09:48] LABS: Absolute Lymphocyte Count 0.34 X10^3/uL (0.83-4.51); Absolute Neutrophil Count 6.6 X10^3/uL (2.0-7.7); Basophil# 0.01 X10^3/uL; Basophil% 0.1 % (0-1); Hematocrit 39.2 % (40-54); Hemoglobin 13.4 g/dL (13.0-16.5); Lymphocyte # 0.34 X10^3/ul (0.83-4.51); Lymphocyte % 4.5 % (19-41); Mean Corp Hgb Conc 34.2 g/dL (32-36); Mean Corpuscular Hgb 32.2 pg (27.0-32.0); Mean Corpuscular Volume 94.2 fL (80-94); Mean Platelet Vol. 8.9 fl (6.2-12.0); Monocyte% 6.7 % (0-10); NRBC Flagged by Analyzer 0 % (0-5); Neutrophil # 6.57 X10^3/uL (2.7-7.7); Neutrophil % 87.8 % (47-70); POSITIVE COUNT YES; POSITIVE DIFFERENTIAL YES; Platelet Count 68 K/mm3 (150-450); RBC Distribution Width CV 13.4 % (11.6-14.6); RBC Distribution Width SD 46.4 fl (35.1-43.9); Red Blood Count 4.16 M/mm3 (4.6-6.2); White Blood Count 7.5 K/mm3 (4.4-11.0)
[2023-01-05] MEDS: 0.9% Normal Saline 1,000 ML 1000 ML IV (09:55)
[2023-01-05] MEDS: Ondansetron 4 MG/2 ML Vial IV (09:55)
[2023-01-05 10:01] LABS: ALB/GLOB Ratio 0.9 RATIO (0.9-2.4); AST(SGOT) 29 U/L (15-37); Alanine Aminotransfer ALT/SGPT 35 U/L (16-61); Albumin, Serum 3.7 g/dL (3.2-5.0); Alkaline Phosphatase 74 U/L (45-117); Anion Gap 11 (5-15); BUN 19 mg/dL (7-18); BUN/Creat Ratio 15.3 RATIO (10-20); Calcium,Total 9.3 mg/dL (8.5-10.1); Chloride 95 mmol/L (98-107); Creatinine, Serum 1.24 mg/dL (0.70-1.30); EST Glomerular Filtration Rate 60 mL/min (>60); Est Glom Filt Rate - Afr Amer 73 mL/min (>60); Estimated Creatinine Clearance 50.68 ml/min; Globulin 4.1 g/dL (2.2-4.2); Glucose 166 mg/dL (74-106); Lipase 48 U/L (13-75); Potassium 3.7 mmol/L (3.5-5.1); Protein, Total 7.8 g/dL (6.4-8.2); Sodium Level 131 mmol/L (136-145); Troponin-I HS 12 pg/mL (3.0-78.0)
[2023-01-05 10:18] LABS: Alcohol, Blood (Medical)-Serum < 3.0 mg/dL
[2023-01-05 10:24] LABS: Differential Indicated SCAN CRITERIA MET
[2023-01-05 10:59] LABS: Mucous, Urine 0 SEEN /hpf (<or=2+); Red Blood Cells-Urine 0 SEEN /hpf (0-5); Squamous Epithelial Cells - UA 0 SEEN /hpf (0-5)
[2023-01-05 10:59] LABS: Differential Comment SCANNED
[2023-01-05] MEDS: 0.9% Normal Saline 1,000 ML 150 ML IV (11:02)
[2023-01-05 11:10] LABS: Color, Urine Yellow (Yellow); Glucose, Dipstick 100 mg/dl (Normal); Ketone-Dipstick 50 mg/dl (Negative); Leukocyte Esterase-Dipstick 500 /ul (Negative); Nitrite-Dipstick Positive (Negative); Occult Blood-Urine 50 /ul (Negative); Protein-Dipstick 100 mg/dl (Negative); Urine Bilirubin Dipstick Negative (Negative); Urine Clarity Clear (Clear); Urine Urobilinogen Normal (Normal)
[2023-01-05 11:19] LABS: Troponin-I HS 13 pg/mL (3.0-78.0)
[2023-01-05 11:31] LABS: Bacteria 2+ /hpf (None Seen); White Blood Cells 50-100 SEEN /hpf (0-5)
[2023-01-05 11:41] VITALS: BP 144/48; PULSE 79; RESP 18; O2SAT 96
[2023-01-05] MEDS: Ceftriaxone 1 GM/50 ML BAG IV (11:53)
[2023-01-05 13:12] VITALS: BP 132/64; PULSE 78; RESP 18; O2SAT 95
== END 2023-01-05 13:26 | disposition home or self-care (01) ==
PROVIDERS: Emergency Provider Emergency Medicine; PCP Student in an Organized Health Care Education/Training Program; Visit Provider Emergency Medicine
DX: N39.0 Urinary tract infection, site not specified (principal); E11.9 Type 2 diabetes mellitus without complications; E78.00 Pure hypercholesterolemia, unspecified; R11.2 Nausea with vomiting, unspecified; I10 Essential (primary) hypertension; R41.0 Disorientation, unspecified
CPT/HCPCS: 80053; 81001; 82077; 83690; 84484; 85025; 87077; 87086; 87088; 87186; 93005; 96361; 96365; 96375; 99285; J7030; A4216; J2405

== ENCOUNTER 2023-01-24 13:02 | Observation (INO) | payer MEDICARE, OTHER, SELFPAY ==
[2023-01-24] VITALS (14 sets, daily range): BP systolic 93–204; BP diastolic 49–164; PULSE 65–141; RESP 15–23; TEMP 36.5–37.3; O2SAT 94–98; BMI 28.9; BMI 29.5
--- NOTE | 2023-01-24 13:24 | EX.ED.DYSGE1 ---
HPI History of Present Illness Chief Complaint: Weakness Informant: patient and family Narrative Narrative: Patient presenting here with family increasing weakness overnight with occasional lightheaded symptoms. No chest pains palpitations racing heart feeling. Denies any cough. States his family has been making him drink more water since his UTI diagnosed earlier this month with confusion. Denies any reported kidney injury. He states last night felt weak and lightheaded. 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 Romero. She is on baby aspirin since then. Hypertension, diabetes, hyperlipidemia history. No cardiac dysrhythmia has no coronary history. Prior similar symptoms: No PFSH PFS Medical History Diabetes mellitus Easy bruising Excessive bleeding High cholesterol History of pain when walking Hypercholesteremia Hypertension Non-smoker Vision loss, right eye Wears glasses Wears partial dentures Home Medications aspirin 81 mg tablet 81 mg PO DAILY BLOOD THINNER 09/06/22 [History Last Taken 01/23/23] cyanocobalamin (vitamin B-12) 1,000 mcg tablet (Vitamin B-12) 1,000 mcg PO DAILY SUPPLEMENT 09/06/22 [History Last Taken 01/23/23] gabapentin 300 mg capsule 900 mg PO TID PAIN 09/06/22 [History Last Taken 01/24/23] glimepiride 4 mg tablet 4 mg PO BID DIABETES 09/06/22 [History Last Taken 01/23/23] vfivzkkeskg-uhnakzhxs-gxe C-Mn 500 mg-400 mg capsule (Glucosamine Chondroitin Maximum Strength) 1 cap PO DAILY SUPPLEMENT 09/06/22 [History Last Taken 01/23/23] hydrochlorothiazide 12.5 mg capsule 12.5 mg PO DAILY BP 09/06/22 [History Last Taken 01/23/23] lamotrigine 25 mg tablet 25 mg PO DAILY PT UNSURE 09/06/22 [History Last Taken 01/23/23] losartan 50 mg tablet 50 mg PO DAILY BP 09/06/22 [History Last Taken 01/23/23] metformin 750 mg tablet,extended release 24 hr 750 mg PO BID DIABETES 09/06/22 [History Last Taken 01/24/23] potassium 99 mg tablet 99 mg PO DAILY SUPPLEMENT 09/06/22 [History Last Taken 01/23/23] magnesium oxide 500 mg capsule 500 mg PO DAILY SUPPLEMENT 09/10/22 [History Last Taken 01/23/23] cholecalciferol (vitamin D3) 25 mcg (1,000 unit) capsule (Vitamin D3) 25 mcg PO DAILY SUPPLEMENT 09/13/22 [History Last Taken 01/23/23] meloxicam 7.5 mg tablet 7.5 mg PO PRN PRN FOOT PAIN 09/13/22 [History Last Taken 01/23/23] pyridoxine (vitamin B6) 50 mg tablet (Vitamin B-6) 50 mg PO DAILY SUPPLEMENT 09/13/22 [History Last Taken 01/23/23] tamsulosin 0.4 mg capsule 0.4 mg PO DAILY@1730 30 days #30 caps 09/20/22 [Rx Last Taken 01/23/23] simvastatin 20 mg tablet 20 mg PO DAILY 10/11/22 [History Last Taken 01/23/23] Allergy/AdvReac Type Severity Reaction Status Date / Time pregabalin [From Lyrica] AdvReac Other Verified 01/24/23 13:10 Surgical History Hx laparoscopic cholecystectomy Hx of bilateral cataract extraction Hx of colonoscopy Hx of hernia repair Hx of total knee replacement Social History Smoking Status: Never smoker ROS ROS ED Constitutional Constitutional ED: Denies chills, fever(s) or sweats Eyes Eyes: Denies change in vision ENT ENT ED: Denies dysphagia or sore throat Cardiovascular Cardiovascular: Reports other Details: Lightheaded ; Denies chest pain, leg edema, palpitations or racing heartbeat Respiratory/Chest Respiratory/Chest: Denies cough, dyspnea or dyspnea on exertion Gastrointestinal Gastrointestinal: Denies abdominal pain, diarrhea, nausea or vomiting Genitourinary Genitourinary ED: Denies dysuria, hematuria or urinary frequency Musculoskeletal Musculoskeletal: Denies back pain, extremity pain or neck pain Integumentary Denies rash or wounds Neurologic Neurologic: Denies headache(s), paresthesias or weakness EXAM Physical Exam Const Vital Signs: 01/24/23 13:03 01/24/23 13:13 01/24/23 13:13 Temperature 97.7 F L Temperature Source Temporal Pulse Rate 133 H 135 H Respiratory Rate 18 19 H Respiratory Effort Normal Non-Labored Respiratory Pattern Normal Blood Pressure 204/164 H 122/54 H Blood Pressure Mean 177 76 Pulse Ox 97 95 Oxygen Delivery Method Room Air Room Air 01/24/23 13:16 01/24/23 13:25 01/24/23 13:38 Temperature Temperature Source Pulse Rate 141 H 98 95 Respiratory Rate 16 19 H 18 Respiratory Effort Respiratory Pattern Blood Pressure 139/124 H 102/58 L 111/63 Blood Pressure Mean 129 72 79 Pulse Ox 95 94 96 Oxygen Delivery Method Room Air Room Air Room Air 01/24/23 14:00 01/24/23 15:17 Temperature 99.2 F H Temperature Source Oral Pulse Rate 95 67 Respiratory Rate 19 H 15 Respiratory Effort Respiratory Pattern Blood Pressure 132/58 H 97/49 L Blood Pressure Mean 82 65 Pulse Ox 95 98 Oxygen Delivery Method Room Air Room Air Positive well nourished and well developed General Appearance ED: well developed and NAD HEENT Reports moist mucous membranes normocephalic and atraumatic Eyes PERRL, EOMs intact bilaterally and conjunctivae normal General Eye ED: Yes normal appearance of both eyes Neck no lymphadenopathy and supple General: Negative for tenderness Chest Wall Chest: Negative for tenderness Resp normal respiratory effort and normal air movement Effort and Inspection: symmetric chest movement; Negative for respiratory distress Cardio Rate: tachycardic Rhythm: abnormal rhythm Peripheral Pulses: pulses 2+ throughout GI normal to inspection, nondistended, normoactive bowel sounds and non-tender Palpation: Negative for guarding or rebound tenderness present Back/Spine no CVA tenderness and no thoracic nor lumbar tenderness Extremity normal to inspection General Extremety ED: Negative for edema or tenderness General Extremity: Negative for edema Neuro oriented x3 and no sensory deficits noted Sensorium / Orientation: awake and alert Skin no rashes or lesions noted and no wounds MDM MDM MDM Narrative Medical decision making narrative: Interventions / MDM: Differential diagnosis: Cardiac dysrhythmia, UTI, weakness Diagnosis considered but do not suspect: N/A My EKG interpretation: EKG: Sinus rate of 95, no ST or T wave changes. Imaging independently reviewed and interpreted by myself: N/A External documents reviewed: N/A Test considered but not ordered:N/A ED course: Patient during exam was in A-fib with RVR heart rate in the 140s with abnormal rhythm. Towards the end of the examination patient converted to sinus rhythm on the monitor. This was noted from rhythm strips. Heart rate in the low 100s. Patient remained in normal sinus rhythm. He was started on 25 mg of metoprolol. Eliquis was started due to [id number] score of a 7. Work-up also noted UTI, exam urine frequency. Previous culture E. coli positive that was sensitive to his Keflex he was sent home with. Treated with IV Rocephin. Labs are stable electrolytes no he had a sodium 132. Slightly low TSH Free T4 is normal. Creatinine 1.4 slightly elevated from 1.2 earlier this month he was given 500 cc of fluid. Patient still felt slight weakness, discussed with patient and family members, they would like him in the hospital for further testing. He had a stroke this past September she was not admitted, he had no echocardiogram recently. Reasonable to bring him in for echocardiogram with his new onset A-fib. I discussed with hospitalist Dr. Mendosa for admission to PCU. Re-evaluation: stable Disposition discussed with patient/family/significant other: Patient and family Case discussed with consulting clinician: Hospitalist This note was generated with [employer] dictation software. It may contain incorrect words, spelling, and punctuation that were not noted in checking the note before signing. Lab Data Attestation: I reviewed the patient's lab results. Labs: Laboratory Results - last 24 hr 01/24/23 01/24/23 13:30 14:05 WBC 6.3 RBC 3.99 L Hgb 12.6 L Hct 37.9 L MCV 95.0 H MCH 31.6 MCHC 33.2 RDW Std Deviation 47.0 H RDW Coeff of [place] 13.3 Plt Count 63 L MPV 9.1 Immature Gran % (Auto) 0.200 Neut % (Auto) 88.6 H Lymph % (Auto) 2.4 L [place] % (Auto) 8.5 Eos % (Auto) 0.0 Baso % (Auto) 0.3 Absolute Neuts (auto) 5.6 Absolute Lymphs (auto) 0.15 L Nucleated RBC % 0 Differential Comment COMMENT Platelet Estimate MOD DEC PT 15.5 H INR 1.2 APTT 30.3 Sodium 132 L Potassium 3.7 Chloride 99 Carbon Dioxide 25.0 Anion Gap 8 BUN 24 H Creatinine 1.40 H Estim Creat Clear Calc 44.89 Est GFR (MDRD) Af Amer 63 Est GFR (MDRD) Non-Af 52 L BUN/Creatinine Ratio 17.1 Glucose 258 H Calcium 9.5 TSH 0.33 L Free T4 1.23 Urine Color Yellow Urine Clarity Cloudy Urine pH 5.0 Ur Specific [place] 1.020 Urine Protein 100 H Urine Glucose (UA) 250 H Urine Ketones 15 H Urine Occult Blood 25 H Urine Nitrite Positive H Urine Bilirubin 1 H Urine Urobilinogen 1 H Ur Leukocyte Esterase 500 H Urine RBC 0-5 SEEN Urine WBC 25-50 SEEN Ur Squamous Epith Cells 0-5 SEEN Urine Bacteria 3+ Hyaline Casts 0-5 SEEN Urine Mucus 0 SEEN Radiography Diagnostic Testing: Clinical Impression(s) from Imaging Studies Chest X-Ray 01/24/23 13:50 IMPRESSION: No acute cardiopulmonary process identified. Electronically Signed: Giselle Rosa MD at 14:18 EDT Reading Location ID and State: [facility] / [place] Tel , Service support , Discharge Plan Triage Chief Complaint: Weakness ED Provider: Parvez Thornton Dx/Rx/DC Orders Clinical Impression: Atrial fibrillation, currently in sinus rhythm, Acute renal insufficiency, Weakness, Acute UTI Primary Care Provider: Harlan Ford Disposition Disposition: [facility]
--- NOTE | 2023-01-24 13:33 | CM.ED ---
Social Work SW reviewed patient's chart, LW and HCPOA documents uploaded in 2008. Patient's son, Grant, is HCPOA and his , Zehra is alternate. Vesta Connolly MSW, RENE
[2023-01-24 13:40] LABS: Absolute Lymphocyte Count 0.15 X10^3/uL (0.83-4.51); Absolute Neutrophil Count 5.6 X10^3/uL (2.0-7.7); Basophil# 0.02 X10^3/uL; Basophil% 0.3 % (0-1); Hematocrit 37.9 % (40-54); Hemoglobin 12.6 g/dL (13.0-16.5); Lymphocyte # 0.15 X10^3/ul (0.83-4.51); Lymphocyte % 2.4 % (19-41); Mean Corp Hgb Conc 33.2 g/dL (32-36); Mean Corpuscular Hgb 31.6 pg (27.0-32.0); Mean Platelet Vol. 9.1 fl (6.2-12.0); Monocyte# 0.54 X10^3/uL; Monocyte% 8.5 % (0-10); NRBC Flagged by Analyzer 0 % (0-5); Neutrophil % 88.6 % (47-70); POSITIVE COUNT YES; POSITIVE DIFFERENTIAL YES; Platelet Count 63 K/mm3 (150-450); RBC Distribution Width CV 13.3 % (11.6-14.6); Red Blood Count 3.99 M/mm3 (4.6-6.2); White Blood Count 6.3 K/mm3 (4.4-11.0)
--- NOTE | 2023-01-24 13:50 | RAD_ITS ---
HISTORY: atrial fib. TECHNIQUE: XR Chest 2 Views. COMPARISON: 09/06/2022. FINDINGS: CARDIOMEDIASTINAL BORDERS: Cardiac silhouette within normal limits in size. Mediastinal contour unremarkable. Surgical clips in the right neck. LUNGS: Radiographically clear. PLEURA: No pleural effusion or pneumothorax seen. OSSEOUS STRUCTURES: Old left sixth rib fracture. Degenerative change. RAD/Chest PA and Lateral IMPRESSION: No acute cardiopulmonary process identified. Electronically Signed: Giselle Rosa MD at 14:18 EDT ,
[2023-01-24 13:51] LABS: Differential Indicated SCAN CRITERIA MET
[2023-01-24 13:53] LABS: Anion Gap 8 (5-15); BUN 24 mg/dL (7-18); BUN/Creat Ratio 17.1 RATIO (10-20); Calcium,Total 9.5 mg/dL (8.5-10.1); Chloride 99 mmol/L (98-107); EST Glomerular Filtration Rate 52 mL/min (>60); Est Glom Filt Rate - Afr Amer 63 mL/min (>60); Estimated Creatinine Clearance 44.89 ml/min; Glucose 258 mg/dL (74-106); Potassium 3.7 mmol/L (3.5-5.1); Sodium Level 132 mmol/L (136-145)
[2023-01-24 14:14] LABS: Mucous, Urine 0 SEEN /hpf (<or=2+)
[2023-01-24 14:17] LABS: Color, Urine Yellow (Yellow); Glucose, Dipstick 250 mg/dl (Normal); Ketone-Dipstick 15 mg/dl (Negative); Leukocyte Esterase-Dipstick 500 /ul (Negative); Nitrite-Dipstick Positive (Negative); Occult Blood-Urine 25 /ul (Negative); Protein-Dipstick 100 mg/dl (Negative); Urine Clarity Cloudy (Clear); Urine Urobilinogen 1 mg/dl (Normal)
[2023-01-24 14:18] LABS: Urine Bilirubin Dipstick 1 mg/dL (Negative)
[2023-01-24 14:18] LABS: Platelet Estimate MOD DEC (ADEQ)
[2023-01-24 14:20] LABS: International Normalized Ratio 1.2; Prothrombin Time (Protime)PT. 15.5 SECONDS (11.7-14.9)
[2023-01-24 14:21] LABS: Partial Thromboplast Time 30.3 Seconds (24.1-36.2)
[2023-01-24 14:23] LABS: Bacteria 3+ /hpf (None Seen); White Blood Cells 25-50 SEEN /hpf (0-5)
[2023-01-24 14:24] LABS: Red Blood Cells-Urine 0-5 SEEN /hpf (0-5); Squamous Epithelial Cells - UA 0-5 SEEN /hpf (0-5)
[2023-01-24 14:25] LABS: Hyaline Cast 0-5 SEEN /lpf (0-5)
[2023-01-24 14:28] LABS: Thyroid Stim Hormone (TSH) 0.33 uIU/mL (0.358-3.74)
[2023-01-24] MEDS: Metoprolol Tartrate 25 MG Tablet PO ×2 (14:28→21:24)
[2023-01-24] MEDS: APIXABAN 5 MG TABLET PO ×2 (14:49→21:24)
[2023-01-24 15:05] LABS: T4 Free Direct 1.23 ng/dL (0.76-1.46)
[2023-01-24] MEDS: Ceftriaxone 1 GM/50 ML BAG IV (15:05)
--- NOTE | 2023-01-24 15:17 | NURSING ---
101 OLEGHE NEW ONSET AFTRIAL FIB, UTI
--- NOTE | 2023-01-24 15:36 | ECHOCS_ITS ---
Reason For Study: Afib/Flutter Procedure This was a 2D Doppler, Color Flow transthoracic echocardiogram. The study was technically difficult. Contrast injection was performed. Exam performed portable in patient room. Left Ventricle Normal size and thickness. The left ventricular ejection fraction is 65 %. At least stage II diastolic dysfunction. Right Ventricle Normal right ventricle. Atria The left atrium is severely enlarged. Normal right atrium. Mitral Valve Trivial mitral valve insufficiency. Tricuspid Valve Mild tricuspid valve insufficiency. Right ventricular systolic pressure estimated to be 43 mmHg. Aortic Valve Aortic sclerosis, no stenosis. Pulmonic Valve The pulmonic valve is not well visualized. Mild (1+) pulmonic valve insufficiency. Great Vessels Normal sized aortic root. Pericardium/Pleural No pericardial effusion. Medication Diluted definity 2ml given slow IV push to enhance endocardial definition. MMode/2D Measurements & Calculations LVIDd: 4.7 cm IVSd: 1.0 cm Ao root diam: 3.6 cm LVIDs: 3.2 cm LVPWd: 0.95 cm LA dimension: 4.1 cm RVDd: 4.0 cm FS: 31.3 % LAV(MOD-bp): 96.4 ml LVAd ap4: 30.5 cm2 SV(MOD-sp4): 73.7 ml LAV(MOD-bp) Indexed: 47.2 ml/m2 LVLd ap4: 7.1 cm LAV(MOD-sp2): 91.2 ml EDV(MOD-sp4): 107.0 ml LAV(MOD-sp4): 99.4 ml EDV(sp4-el): 111.1 ml LVAs ap4: 15.0 cm2 LVLs ap4: 5.5 cm ESV(MOD-sp4): 33.3 ml ESV(sp4-el): 34.9 ml EF(MOD-sp4): 68.9 % EF(sp4-el): 68.6 % SV(sp4-el): 76.2 ml LA A4 area: 28.9 cm2 RA A4 area: 15.9 cm2 TAPSE: 1.7 cm Time Measurements MV dec time: 0.18 sec Doppler Measurements & Calculations MV E max owen: 132.7 cm/sec Lat Peak E' Owen: 6.3 cm/sec Med Peak E' Owen: 6.2 cm/sec MV A max owen: 89.8 cm/sec E/E' lat: 20.9 E/E' med: 21.5 MV E/A: 1.5 MV V2 max: 132.6 cm/sec MV P1/2t max owen: 134.7 cm/sec Ao V2 max: 114.5 cm/sec MV max P.0 mmHg MV P1/2t: 58.4 msec Ao max P.2 mmHg MV V2 mean: 62.5 cm/sec Ao V2 mean: 79.2 cm/sec MV mean P.1 mmHg MV dec slope: 675.5 cm/sec2 Ao mean P.9 mmHg MV V2 VTI: 47.5 cm MVA(P1/2t): 3.8 cm2 Ao V2 VTI: 27.7 cm AV (velocity ratio): 0.80 LV V1 max: 92.8 cm/sec PA V2 max: 59.1 cm/sec TR max owen: 264.9 cm/sec LV V1 max P.4 mmHg TR max P.1 mmHg LV V1 mean P.7 mmHg LV V1 mean: 61.1 cm/sec LV V1 VTI: 22.2 cm ECHO/Echo Complete W/ Contrast Interpretation Summary The left ventricular ejection fraction is 65 %. At least stage II diastolic dysfunction The left atrium is severely enlarged. Mild tricuspid valve insufficiency. Right ventricular systolic pressure estimated to be 43 mmHg. Mild (1+) pulmonic valve insufficiency. Ordering Physician: Manan Mendosa Referring Physician: Harlan Ford Performed By: Britton Salmon RCS
--- NOTE | 2023-01-24 15:47 | HP.PCM_ITS ---
HPI - General General Date of Admission: 01/24/23 Date of Service: 01/24/23 Chief Complaint: Lethargy and excessive somnolence HPI Narrative LARA SOLANO, is a 77 M with a history of hypertension, type 2 diabetes and internal carotid artery stenosis status post CEA a few months ago. Recently in the emergency department 3 weeks ago for urinary tract infection and completed course of oral antibiotics. Presents to the emergency department today with 1 day history of excessive sleepiness and lethargy, dizziness and weakness. Apparently patient had recently increased his water intake and has been waking up several times in the night to urinate which has been affecting his nighttime sleep. Patient snores but has never been diagnosed with sleep apnea. Due to concerns of recurrence of urinary tract infection patient brought patient to the hospital. Found to be in atrial fibrillation with rapid ventricular response with heart rate as high as 140 bpm but patient spontaneously converted to normal sinus rhythm. Did not have any chest pain or shortness of breath at the time. [facility] Medical History Diabetes mellitus Easy bruising Excessive bleeding High cholesterol History of pain when walking Hypercholesteremia Hypertension Non-smoker Vision loss, right eye Wears glasses Wears partial dentures Home Medications aspirin 81 mg tablet 81 mg PO DAILY BLOOD THINNER 09/06/22 [History Last Taken 01/23/23] cyanocobalamin (vitamin B-12) 1,000 mcg tablet (Vitamin B-12) 1,000 mcg PO DAILY SUPPLEMENT 09/06/22 [History Last Taken 01/23/23] gabapentin 300 mg capsule 900 mg PO TID PAIN 09/06/22 [History Last Taken 01/24/23] glimepiride 4 mg tablet 4 mg PO BID DIABETES 09/06/22 [History Last Taken 01/23/23] vubbfbtccuk-vedgvnagg-ebi C-Mn 500 mg-400 mg capsule (Glucosamine Chondroitin Maximum Strength) 1 cap PO DAILY SUPPLEMENT 09/06/22 [History Last Taken 01/23/23] hydrochlorothiazide 12.5 mg capsule 12.5 mg PO DAILY BP 09/06/22 [History Last Taken 01/23/23] lamotrigine 25 mg tablet 25 mg PO DAILY PT UNSURE 09/06/22 [History Last Taken 01/23/23] losartan 50 mg tablet 50 mg PO DAILY BP 09/06/22 [History Last Taken 01/23/23] metformin 750 mg tablet,extended release 24 hr 750 mg PO BID DIABETES 09/06/22 [History Last Taken 01/24/23] potassium 99 mg tablet 99 mg PO DAILY SUPPLEMENT 09/06/22 [History Last Taken 01/23/23] magnesium oxide 500 mg capsule 500 mg PO DAILY SUPPLEMENT 09/10/22 [History Last Taken 01/23/23] cholecalciferol (vitamin D3) 25 mcg (1,000 unit) capsule (Vitamin D3) 25 mcg PO DAILY SUPPLEMENT 09/13/22 [History Last Taken 01/23/23] meloxicam 7.5 mg tablet 7.5 mg PO PRN PRN FOOT PAIN 09/13/22 [History Last Taken 01/23/23] pyridoxine (vitamin B6) 50 mg tablet (Vitamin B-6) 50 mg PO DAILY SUPPLEMENT 09/13/22 [History Last Taken 01/23/23] tamsulosin 0.4 mg capsule 0.4 mg PO DAILY@1730 30 days #30 caps 09/20/22 [Rx Last Taken 01/23/23] simvastatin 20 mg tablet 20 mg PO DAILY 10/11/22 [History Last Taken 01/23/23] Allergy/AdvReac Type Severity Reaction Status Date / Time pregabalin [From Lyrica] AdvReac Other Verified 01/24/23 13:10 Surgical History Hx laparoscopic cholecystectomy Hx of bilateral cataract extraction Hx of colonoscopy Hx of hernia repair Hx of total knee replacement Social History Smoking Status: Never smoker ROS ROS Narrative Denies any chest pain or shortness of breath. Does complain of unsteadiness of gait which he attributes to his peripheral neuropathy from his diabetes. All other systems reviewed and essentially negative as above in the body of the history. Vital Signs Vital Signs Vital Signs: 01/24/23 13:03 01/24/23 13:13 01/24/23 13:13 Temperature 36.5 C L Temperature Source Temporal Pulse Rate 133 H 135 H Respiratory Rate 18 19 H Respiratory Effort Normal Non-Labored Respiratory Pattern Normal Blood Pressure 204/164 H 122/54 H Blood Pressure Mean 177 76 Pulse Ox 97 95 Oxygen Delivery Method Room Air Room Air 01/24/23 13:16 01/24/23 13:25 01/24/23 13:38 Temperature Temperature Source Pulse Rate 141 H 98 95 Respiratory Rate 16 19 H 18 Respiratory Effort Respiratory Pattern Blood Pressure 139/124 H 102/58 L 111/63 Blood Pressure Mean 129 72 79 Pulse Ox 95 94 96 Oxygen Delivery Method Room Air Room Air Room Air 01/24/23 14:00 01/24/23 15:17 01/24/23 15:31 Temperature 37.3 C H Temperature Source Oral Pulse Rate 95 67 66 Respiratory Rate 19 H 15 19 H Respiratory Effort Respiratory Pattern Blood Pressure 132/58 H 97/49 L 93/61 Blood Pressure Mean 82 65 71 Pulse Ox 95 98 97 Oxygen Delivery Method Room Air Room Air Room Air 01/24/23 15:42 Temperature Temperature Source Pulse Rate 65 Respiratory Rate 18 Respiratory Effort Respiratory Pattern Blood Pressure 96/50 L Blood Pressure Mean 65 Pulse Ox 98 Oxygen Delivery Method Room Air Weight Weight: 88.813 kg Body Mass Index (BMI) 28.9 Physical Exam Narrative General exam. Elderly man, mildly weak appearing not in any obvious distress. HEENT. Oral mucosa moist no pallor jaundice and no cyanosis Neck. Neck is supple. Right-sided CEA scar noted Heart. There is a second heart sounds heard no murmurs. Lungs were clear to auscultation Abdomen. Obese and moves respiration Extremities. No pedal edema [employer]. Conscious alert and oriented x3. Cranial nerves II to XII grossly intact. Results Medical Records Data Attestation: I reviewed the patient's medical records Lab / Micro Data Attestation: I reviewed the patient's lab results. 01/24/23 13:30 01/24/23 13:30 Labs: Laboratory Results - last 24 hr 01/24/23 13:30: WBC 6.3, RBC 3.99 L, Hgb 12.6 L, Hct 37.9 L, MCV 95.0 H, MCH 31.6, MCHC 33.2, RDW Std Deviation 47.0 H, RDW Coeff of [place] 13.3, Plt Count 63 L , MPV 9.1, Immature Gran % (Auto) 0.200, Neut % (Auto) 88.6 H, Lymph % (Auto) 2.4 L, [place] % (Auto) 8.5, Eos % (Auto) 0.0, Baso % (Auto) 0.3, Absolute Neuts (auto) 5.6, Absolute Lymphs (auto) 0.15 L, Nucleated RBC % 0, Differential Comment COMMENT, Platelet Estimate MOD DEC, PT 15.5 H, INR 1.2, APTT 30.3, Sodium 132 L, Potassium 3.7, Chloride 99, Carbon Dioxide 25.0, Anion Gap 8, BUN 24 H, Creatinine 1.40 H, Estim Creat Clear Calc 44.89, Est GFR (MDRD) Af Amer 63, Est GFR (MDRD) Non-Af 52 L, BUN/Creatinine Ratio 17.1, Glucose 258 H, Calcium 9.5, TSH 0.33 L, Free T4 1.23 01/24/23 14:05: Urine Color Yellow, Urine Clarity Cloudy, Urine pH 5.0, Ur Specific [place] 1.020, Urine Protein 100 H, Urine Glucose (UA) 250 H, Urine Ketones 15 H, Urine Occult Blood 25 H, Urine Nitrite Positive H, Urine Bilirubin 1 H, Urine Urobilinogen 1 H, Ur Leukocyte Esterase 500 H, Urine RBC 0-5 SEEN, Urine WBC 25-50 SEEN, Ur Squamous Epith Cells 0-5 SEEN, Urine Bacteria 3+, Hyaline Casts 0-5 SEEN, Urine Mucus 0 SEEN Radiology Impression Chest X-Ray 01/24/23 13:50 IMPRESSION: No acute cardiopulmonary process identified. Electronically Signed: Giselle Rosa MD at 14:18 EDT Reading Location ID and State: [facility] / [place] Tel , Service support , Assessment & Plan Assessment/Plan (1) Atrial fibrillation with rapid ventricular response: PLAN: Plan Assessment and plan 1. Newly detected atrial fibrillation with rapid ventricular response. Converted back to sinus rhythm spontaneously in the emergency department with. [id number] score of 6. Patient started on Eliquis 5 mg twice a day in the emergency department and will continue start on low-dose beta-palma with metoprolol 25 mg twice a day. Consult cardiology. Echocardiogram. TSH mildly depressed we will check free T3 and T4 2. Excessive somnolence. Suspect this is most likely simply secondary to impaired sleep from frequent nighttime awakenings to urinate. Encouraged and advised to cut back on excessive hydration and try to avoid fluids anytime after 6 PM. Patient's phenotype will suggest risk for JOSE. Would recommend referral to pulmonology for PSG following discharge. Untreated JOSE would also be a risk factor for development of atrial fibrillation. 3. Hypertension. Continue antihypertensives but will discontinue hydrochlorothiazide since metoprolol being added. 4. Type 2 diabetes. Continue current regimen of oral hypoglycemic agents. Accu-Cheks before meals and at bedtime and insulin sliding scale for mealtimes and at bedtime. 5. 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 Symptomatic right ICA atherosclerotic stenosis status post CEA. Currently on aspirin. Given advanced age, aspirin along with Eliquis likely to unacceptably increase patient's bleeding risk and so in the light of this I think it reasonable to discontinue aspirin and while maintaining only on Eliquis. Will defer to cardiology. 6. Prerenal azotemia. Recheck BMP in the morning. Charges/Coding Visit Charges Inpatient E&M: 35389 Init Hosp L3
[2023-01-24 17:35] LABS: Bedside Glucose 223 mg/dL (74-106)
[2023-01-24 17:38] LABS: Vitamin B12 932 pg/mL (211-911)
[2023-01-24] MEDS: Tamsulosin HCl 0.4 MG Capsule PO (17:54)
[2023-01-24] MEDS: Glimepiride 4 MG Tablet PO (17:54)
[2023-01-24] MEDS: Insulin Lispro 100 UNIT/ML INSULN.PEN SC ×2 (17:54→21:25)
[2023-01-24] MEDS: MELATONIN 10 MG TABLET PO (21:24)
[2023-01-24] MEDS: Gabapentin 300 MG Capsule 900 MG PO (21:24)
[2023-01-24] MEDS: Atorvastatin Calcium 10 MG Tablet PO (21:24)
[2023-01-24 21:52] LABS: Bedside Glucose 199 mg/dL (74-106)
[2023-01-25 03:30] VITALS: O2SAT 97
[2023-01-25 03:33] VITALS: BP 121/58; PULSE 68; RESP 16; TEMP 36.9; O2SAT 96
[2023-01-25 05:55] LABS: Absolute Lymphocyte Count 0.25 X10^3/uL (0.83-4.51); Absolute Neutrophil Count 1.8 X10^3/uL (2.0-7.7); Basophil# 0.01 X10^3/uL; Basophil% 0.4 % (0-1); Eosinophil# 0.01 X10^3/uL; Eosinophils% 0.4 % (0-5); Hematocrit 31.7 % (40-54); Hemoglobin 10.7 g/dL (13.0-16.5); Lymphocyte # 0.25 X10^3/ul (0.83-4.51); Lymphocyte % 10.6 % (19-41); Mean Corp Hgb Conc 33.8 g/dL (32-36); Mean Corpuscular Hgb 31.9 pg (27.0-32.0); Mean Corpuscular Volume 94.6 fL (80-94); Mean Platelet Vol. 9.5 fl (6.2-12.0); Monocyte% 12.8 % (0-10); NRBC Flagged by Analyzer 0 % (0-5); Neutrophil # 1.78 X10^3/uL (2.7-7.7); Neutrophil % 75.8 % (47-70); POSITIVE COUNT YES; POSITIVE DIFFERENTIAL YES; Platelet Count 52 K/mm3 (150-450); RBC Distribution Width CV 13.7 % (11.6-14.6); RBC Distribution Width SD 47.2 fl (35.1-43.9); Red Blood Count 3.35 M/mm3 (4.6-6.2); White Blood Count 2.4 K/mm3 (4.4-11.0)
[2023-01-25 05:58] LABS: Differential Indicated SCAN CRITERIA MET
[2023-01-25 06:21] LABS: Differential Comment SCANNED; Platelet Estimate MKD DEC (ADEQ)
[2023-01-25] MEDS: Gabapentin 300 MG Capsule 900 MG PO (06:22)
[2023-01-25 06:33] LABS: AST(SGOT) 30 U/L (15-37); Alanine Aminotransfer ALT/SGPT 30 U/L (16-61); Alkaline Phosphatase 42 U/L (45-117); Anion Gap 7 (5-15); BUN 31 mg/dL (7-18); BUN/Creat Ratio 28.4 RATIO (10-20); Calcium,Total 8.7 mg/dL (8.5-10.1); Chloride 104 mmol/L (98-107); Creatinine, Serum 1.09 mg/dL (0.70-1.30); EST Glomerular Filtration Rate 70 mL/min (>60); Est Glom Filt Rate - Afr Amer 85 mL/min (>60); Estimated Creatinine Clearance 57.66 ml/min; Free T3 1.2 pg/mL (2.18-3.98); Globulin 3.1 g/dL (2.2-4.2); Glucose 65 mg/dL (74-106); Potassium 3.7 mmol/L (3.5-5.1); Protein, Total 6.1 g/dL (6.4-8.2); Sodium Level 138 mmol/L (136-145); T4 Free Direct 1.11 ng/dL (0.76-1.46)
[2023-01-25 06:54] LABS: Bedside Glucose 70 mg/dL (74-106)
--- NOTE | 2023-01-25 08:06 | CT_ITS ---
STUDY: CT ABDOMEN AND PELVIS WITHOUT CONTRAST Reason for exam: Elevated LFTs RADIATION DOSAGE (If Supplied By Facility): CTDIvol = ( 15.54 ) mGy, DLP = ( 826.89 ) mGycm TECHNIQUE: Transaxial images were obtained from the dome of the diaphragm to the symphysis pubis without oral contrast, and without intravenous contrast. Sagittal and coronal images were reconstructed. Individualized dose optimization techniques were used for this CT. COMPARISON: None. FINDINGS: Chronic interstitial changes noted in the lung awan with dependent atelectasis.. Calcified coronary vessels. Liver shows heterogeneity but no discrete lesion. There is non-visualization of the gallbladder, which may be secondary to either contraction or a prior cholecystectomy. There is splenomegaly. Normal pancreas. Normal bilateral adrenal glands. No obstructive uropathy. Punctate nonobstructing bilateral renal stones noted. Normal visualized stomach. Normal small intestine. Stool noted in colon with scattered colonic diverticula. There is pericolic inflammatory stranding along the distal descending and proximal sigmoid colon consistent with acute uncomplicated diverticulitis. The appendix is visualized and appears normal. Appendix seen on coronal recon images 71 through 77 There is diffuse atherosclerotic calcification of the abdominal aorta, without a demonstrated aneurysm. Normal inferior vena cava. Normal retroperitoneum. Normal urinary bladder. There are prostatic calcifications. Normal abdominal wall. There are diffuse degenerative changes of the visualized lumbar spine, and pelvis. CT/Abdomen/Pelvis without Cont IMPRESSION: Acute uncomplicated diverticulitis in the distal descending and proximal sigmoid colon without perforation or abscess Heterogeneous liver suggests fatty infiltration, no discrete lesion noted. Nonspecific splenomegaly. No free intraperitoneal fluid, air, or suspicious adenopathy. Normal appendix visualized Degenerative bony changes Electronically Signed: Efra Pitts MD at 9:14 EDT ,
[2023-01-25 09:05] VITALS: BP 118/57; PULSE 71; RESP 18; TEMP 36.4; O2SAT 96
[2023-01-25 09:07] VITALS: BP 118/57; PULSE 71
[2023-01-25] MEDS: lamoTRIgine 25 MG Tablet PO (09:07)
[2023-01-25] MEDS: Losartan Potassium 50 MG Tablet PO (09:07)
[2023-01-25] MEDS: Metoprolol Tartrate 25 MG Tablet PO (09:07)
[2023-01-25] MEDS: Glimepiride 4 MG Tablet PO (09:07)
[2023-01-25] MEDS: Pyridoxine HCl 50 MG Tablet PO (09:08)
[2023-01-25] MEDS: Magnesium Chloride 64 MG Delay Rel.Tablet 128 MG PO (09:08)
[2023-01-25] MEDS: Cyanocobalamin 500 MCG Tablet 1000 MCG PO (09:08)
[2023-01-25] MEDS: Ceftriaxone 1 GM/50 ML BAG IV (09:23)
[2023-01-25] MEDS: metroNIDAZOLE 500 MG Tablet PO (11:21)
[2023-01-25] MEDS: Insulin Lispro 100 UNIT/ML INSULN.PEN SC (11:22)
[2023-01-25 11:42] LABS: Bedside Glucose 187 mg/dL (74-106)
--- NOTE | 2023-01-25 12:34 | PCM.DC.SUM ---
Providers Date of Admission: 01/24/23 Date of Discharge: 01/25/23 Primary Care Physician: Dr. Harlan Ford, Consultations 01/24/23 15:36 Consult: Cardiology Routine Consulting Provider: [facility] Reason for Consult: atrial fibrillation with RVR EMERGENT Consult: No MD Notified: Yes Date Notified: 01/24/23 Time Notified: 16:38 Method of Notification: Text Reason For Visit: NEW ONSET ATRIAL FIB, UTI Diagnosis Discharge Diagnosis (1) Atrial fibrillation with rapid ventricular response: Status: Acute Code(s): I48.91 - Unspecified atrial fibrillation (2) Diverticulitis: Status: Acute Code(s): K57.92 - Diverticulitis of intestine, part unspecified, without perforation or abscess without bleeding (3) Acute UTI: Status: Acute Code(s): N39.0 - Urinary tract infection, site not specified (4) Weakness: Status: Acute Code(s): R53.1 - Weakness Medications at Discharge Home Medications aspirin 81 mg tablet 81 mg PO DAILY BLOOD THINNER 09/06/22 cyanocobalamin (vitamin B-12) 1,000 mcg tablet (Vitamin B-12) 1,000 mcg PO DAILY SUPPLEMENT 09/06/22 gabapentin 300 mg capsule 900 mg PO TID PAIN 09/06/22 glimepiride 4 mg tablet 4 mg PO BID DIABETES 09/06/22 [id number]-[id number]-fmx C-Mn 500 mg-400 mg capsule (Glucosamine Chondroitin Maximum Strength) 1 cap PO DAILY SUPPLEMENT 09/06/22 lamotrigine 25 mg tablet 25 mg PO DAILY PT UNSURE 09/06/22 losartan 50 mg tablet 50 mg PO DAILY BP 09/06/22 metformin 750 mg tablet,extended release 24 hr 750 mg PO BID DIABETES 09/06/22 potassium 99 mg tablet 99 mg PO DAILY SUPPLEMENT 09/06/22 magnesium oxide 500 mg capsule 500 mg PO DAILY SUPPLEMENT 09/10/22 cholecalciferol (vitamin D3) 25 mcg (1,000 unit) capsule (Vitamin D3) 25 mcg PO DAILY SUPPLEMENT 09/13/22 meloxicam 7.5 mg tablet 7.5 mg PO PRN PRN FOOT PAIN 09/13/22 pyridoxine (vitamin B6) 50 mg tablet (Vitamin B-6) 50 mg PO DAILY SUPPLEMENT 09/13/22 tamsulosin 0.4 mg capsule 0.4 mg PO DAILY@1730 30 days #30 caps 09/20/22 simvastatin 20 mg tablet 20 mg PO DAILY 10/11/22 ciprofloxacin HCl 500 mg tablet 500 mg PO BID #14 tabs 01/25/23 metoprolol tartrate 25 mg tablet 25 mg PO BID #60 tabs 01/25/23 metronidazole 500 mg tablet 500 mg PO TID #21 tabs 01/25/23 Hospital Course Operations None Procedures 2-D Echocardiogram, EKG and - (Chest x-ray/CT abdomen and pelvis) Summary of Care Provided Minutes Spent on Discharge: 38 Hospital Course: Mr. Tapia is a 77-year-old white male who presented to the emergency department at [facility] on 01/24/2023 for excessive somnolence and lethargy. The patient was recently seen in the emergency department about 3 weeks ago for urinary tract infection and completed a course of oral antibiotics. He presented to the emergency department yesterday with a 1 day history of excessive sleepiness, lethargy, dizziness, and weakness. The patient had recently increased his water intake and had been waking up several times in the night to urinate which had been significantly affecting his sleep. The patient reports that he snores but has never been diagnosed with sleep apnea. He states typically when he is not waking up at night he wakes up well rested. Due to the concern of recurrent urinary tract infection with his symptoms he came to the emergency department. At presentation he was found to be in A-fib with RVR with ventricular rates as high as 140 bpm. While he was in the emergency department he spontaneously converted to normal sinus rhythm. He is not on any rate controlling or rhythm regulating medication at baseline. He had no chest pain or shortness of breath at the time of presentation. A UA was obtained and was consistent with infection. He was given a dose of ceftriaxone emergency department and admitted to PCU and placed on metoprolol 25 mg p.o. twice daily. He does have a history of stroke with a recent right carotid endarterectomy. 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 His [id number] score was 6 however he has significant thrombocytopenia with a platelet count of around 50,000. Echocardiogram was performed and showed an EF of 65% with at least stage II diastolic dysfunction, severe left atrial enlargement, mild tricuspid valve insufficiency, mild pulmonic valve insufficiency, and right ventricular systolic pressure at 43 mmHg. Given his thrombocytopenia being so severe, anticoagulation was deferred at this time. His coags were normal and he does have a history of alcoholism. He is currently a nondrinker and quit 6 years ago. 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 This demonstrated acute uncomplicated diverticulitis in the distal descending and proximal sigmoid colon without perforation or abscess, heterogeneous liver suggestive of fatty infiltration, splenomegaly and degenerative bony changes. Given the finding of acute diverticulitis we did start him on Cipro and Flagyl for which he will complete a 7-day course. This will also cover his urine as he currently is growing gram-negative rods at greater than 100,000 DFU. With his recurrent urinary tract infections, I have asked him to follow-up with Dr. Griffin and he will call either later today or Saturday to schedule appointment to be seen as soon as there is 1 available. His previous culture was pansensitive. With the suspected liver disease and splenomegaly have also asked him to follow-up with Dr. Garrett to be seen in the next 3 to 6 months and again he will call either later today or Saturday to set up that appointment. He will see cardiology in the next 1 to 2 weeks and this appointment was made prior to discharge. We have also requested that he follow-up with his primary care physician within the next 1 to 2 weeks. Prescriptions for his metoprolol, ciprofloxacin, and Flagyl were faxed to his local pharmacy at the time of discharge. Discharge diagnoses: A-fib with RVR-resolved Diverticulitis Gram-negative UTI History of stroke Right carotid artery stenosis status post CEA DM 2 Hypertension Hyperlipidemia Diabetic neuropathy Left eye blindness PAH Stage II diastolic dysfunction BPH History of alcohol abuse Physical Exam Const alert, oriented x3, no apparent distress, no limitations and well nourished Constitutional Narrative: Overweight, very pleasant, older, white male, sitting up in bed, appears comfortable and nontoxic General Appearance: cooperative, comfortable, well kempt and well developed Orientation / Consciousness: awake, oriented to person, oriented to place and oriented to time Exam Limitations: no limitations Nutritional Appearance: overweight HEENT normocephalic, head/scalp atraumatic and moist oral mucous membranes; Negative for hearing grossly normal bilaterally HEENT Narrative: Mild hearing loss, Mallampati 2-3, no thrush, dentition is fair Eyes PERRL, EOMs intact bilaterally and conjunctivae normal Eyes Narrative: No scleral icterus Neck no lymphadenopathy and supple Neck Narrative: Trachea midline, no thyroid in the, right neck noted for well-healed incision from recent carotid endarterectomy Resp normal respiratory effort, no retractions, no use of accessory muscles and clear to auscultation bilaterally Auscultation: Negative for rales, rhonchi or wheezes Cardio regular rate, regular rhythm, S1 normal heart sound, S2 normal heart sound, no murmurs, no rub, no gallops and no clicks GI normal to inspection, nondistended, normoactive bowel sounds, soft to palpation, non-tender and hepatosplenomegaly Extremity no clubbing, cyanosis or edema Extremity Narrative: Pedal pulses are 2+ Skin no rashes or lesions noted, no wounds, skin turgor normal and no jaundice Neuro oriented x3, CN's II-XII intact bilaterally, moves all extremities and no focal motor deficits Speech: speech normal Psych affect normal Psych Narrative: Very pleasant, interacts appropriately Weight / BMI Weight Weight: 90.6 kg Body Mass Index (BMI) 29.5 ABG / Lab / Microbiology Data 01/25/23 04:53 01/25/23 04:53 Laboratory: Laboratory Results - last 24 hr 01/24/23 13:30: WBC 6.3, RBC 3.99 L, Hgb 12.6 L, Hct 37.9 L, MCV 95.0 H, MCH 31.6, MCHC 33.2, RDW Std Deviation 47.0 H, RDW Coeff of [place] 13.3, Plt Count 63 L, MPV 9.1, Immature Gran % (Auto) 0.200, Neut % (Auto) 88.6 H, Lymph % (Auto) 2.4 L, [place] % (Auto) 8.5, Eos % (Auto) 0.0, Baso % (Auto) 0.3, Absolute Neuts (auto) 5.6, Absolute Lymphs (auto) 0.15 L, Nucleated RBC % 0, Differential Comment COMMENT, Platelet Estimate MOD DEC, PT 15.5 H, INR 1.2, APTT 30.3, Sodium 132 L, Potassium 3.7, Chloride 99, Carbon Dioxide 25.0, Anion Gap 8, BUN 24 H, Creatinine 1.40 H, Estim Creat Clear Calc 44.89, Est GFR (MDRD) Af Amer 63, Est GFR (MDRD) Non-Af 52 L, BUN/Creatinine Ratio 17.1, Glucose 258 H, Calcium 9.5, TSH 0.33 L, Free T4 1.23 01/24/23 14:05: Urine Color Yellow, Urine Clarity Cloudy, Urine pH 5.0, Ur Specific [place] 1.020, Urine Protein 100 H, Urine Glucose (UA) 250 H, Urine Ketones 15 H, Urine Occult Blood 25 H, Urine Nitrite Positive H, Urine Bilirubin 1 H, Urine Urobilinogen 1 H, Ur Leukocyte Esterase 500 H, Urine RBC 0-5 SEEN, Urine WBC 25-50 SEEN, Ur Squamous Epith Cells 0-5 SEEN, Urine Bacteria 3+, Hyaline Casts 0-5 SEEN, Urine Mucus 0 SEEN 01/24/23 16:49: Vitamin B12 932 H 01/24/23 17:13: POC Glucose 223 H 01/24/23 21:23: POC Glucose 199 H 01/25/23 04:53: WBC 2.4 L, RBC 3.35 L, Hgb 10.7 L, Hct 31.7 L, MCV 94.6 H, MCH 31.9, MCHC 33.8, RDW Std Deviation 47.2 H, RDW Coeff of [place] 13.7, Plt Count 52 L, MPV 9.5, Immature Gran % (Auto) 0.000, Neut % (Auto) 75.8 H, Lymph % (Auto) 10.6 L, [place] % (Auto) 12.8 H, Eos % (Auto) 0.4, Baso % (Auto) 0.4, Absolute Neuts (auto) 1.8 L, Absolute Lymphs (auto) 0.25 L, Nucleated RBC % 0, Differential Comment SCANNED, Diff Path Review November foll, Platelet Estimate MKD DEC, Sodium 138, Potassium 3.7, Chloride 104, Carbon Dioxide 27.0, Anion Gap 7, BUN 31 H, Creatinine 1.09, Estim Creat Clear Calc 57.66, Est GFR (MDRD) Af Amer 85, Est GFR (MDRD) Non-Af 70, BUN/Creatinine Ratio 28.4 H, Glucose 65 L, Calcium 8.7, Total Bilirubin 1.10 H, AST 30, ALT 30, Alkaline Phosphatase 42 L, Total Protein 6.1 L, Albumin 3.0 L, Globulin 3.1, Albumin/Globulin Ratio 1.0, Free T4 1.11, Free T3 pg/dL 1.2 L 01/25/23 06:25: POC Glucose 70 L 01/25/23 11:20: POC Glucose 187 H Microbiology: Microbiology 01/24/23 14:05 Urine, Clean Catch Urine Culture - Preliminary Gram negative sandra Radiography Diagnostic Testing: Radiology Impression Chest X-Ray 01/24/23 13:50 IMPRESSION: No acute cardiopulmonary process identified. Electronically Signed: Giselle Rosa MD at 14:18 EDT , Echocardiogram 01/24/23 15:36 Interpretation Summary The left ventricular ejection fraction is 65 %. At least stage II diastolic dysfunction The left atrium is severely enlarged. Mild tricuspid valve insufficiency. Right ventricular systolic pressure estimated to be 43 mmHg. Mild (1+) pulmonic valve insufficiency. Ordering Physician: Manan Mendosa Referring Physician: Harlan Ford Performed By: Britton Salmon RCS Abdomen/Pelvis CT 01/25/23 08:06 IMPRESSION: Acute uncomplicated diverticulitis in the distal descending and proximal sigmoid colon without perforation or abscess Heterogeneous liver suggests fatty infiltration, no discrete lesion noted. Nonspecific splenomegaly. No free intraperitoneal fluid, air, or suspicious adenopathy. Normal appendix visualized Degenerative bony changes Electronically Signed: Efra Pitts MD at 9:14 EDT , D/C Instructions Discharge Diet: Low fat / Low cholesterol and 1800 Calorie Control Diet Discharge Activity: Return to Normal Activity Return to work on: 01/28/23 Meaningful Use Info Meaningful Use Diagnoses (Choose all that apply): None applicable Discharge Plan Admission Admit Date/Time: 01/24/23 15:36 Primary Reason for Your Visit: Lethargy/sleepiness Attending Provider: Gertrude Momin Primary Care Provider: Harlan Ford Consulting Providers: Teressa Wetzel; Phil Cochran; Carrillo Reese; Clint Chen; Prieto Shah; Xavier Hu; Sony Coyne; Eligio Barger; Paul Powell; Dora Mcnair; Radha Yang; Glison Antunez; Heladio Santizo; Thomas Rocha; Bubba Rondon SYSTEMS CONSULTANT; Teressa Morales NP; Torri Mendoza PA; Manan Mendosa Instructions Additional Instructions / Restrictions: 1. You were found to have new onset atrial fibrillation with RVR. This may not be new but just found incidentally. Typically we place people on blood thinners for this to prevent stroke however your platelets level is low and per our discussion for now we will hold anticoagulation because your risk of bleeding is high. 2. You were also found to have diverticulitis on your CT of the abdomen. Fortunately you are not having significant symptoms. You are placed on antibiotics that will cover both of diverticulitis and your urinary tract infection. Please complete the course of both antibiotics. Discharge Orders/Prescriptions Prescriptions: New ciprofloxacin HCl 500 mg Tablet 500 mg PO BID Qty: 14 0RF metoprolol tartrate 25 mg Tablet 25 mg PO BID Qty: 60 0RF metronidazole 500 mg Tablet 500 mg PO TID Qty: 21 0RF Continued magnesium oxide 500 mg capsule 500 mg PO DAILY simvastatin 20 mg tablet 20 mg PO DAILY gabapentin 300 mg Capsule 900 mg PO TID aspirin 81 mg Tablet 81 mg PO DAILY losartan 50 mg Tablet 50 mg PO DAILY cyanocobalamin (vitamin B-12) [Vitamin B-12] 1,000 mcg Tablet 1,000 mcg PO DAILY lamotrigine 25 mg Tablet 25 mg PO DAILY glimepiride 4 mg Tablet 4 mg PO BID padaegewpev-keuwjbjve-ncj C-Mn [Glucosamine Chondroitin MaxStr] 500-400 mg Capsule 1 cap PO DAILY metformin 750 mg Tablet Extended Release 24 Hr 750 mg PO BID potassium 99 mg Tablet 99 mg PO DAILY meloxicam 7.5 mg tablet 7.5 mg PO PRN PRN (Reason: FOOT PAIN) Patient Comments: TAKE 1 TABLET BY MOUTH ONCE DAILY. NEEDED FOR FOOT PAIN, WITH FOOD. pyridoxine (vitamin B6) [Vitamin B-6] 50 mg Tablet 50 mg PO DAILY cholecalciferol (vitamin D3) [Vitamin D3] 25 mcg (1,000 unit) Capsule 25 mcg PO DAILY tamsulosin 0.4 mg Capsule 0.4 mg PO DAILY@1730 30 Days Qty: 30 0RF Discontinued hydrochlorothiazide 12.5 mg Capsule 12.5 mg PO DAILY Referrals / Follow Up: Harlan Ford DO [Primary Care Provider] - Within 2 Weeks Austen Griffin MD [Med Staff - Active Staff] - See Referral Note (Call later today or Saturday to make an appointment to be seen as soon as you are able to get in) FriendRudolph DO [Med Staff - Active Staff] - See Referral Note (Call later today or Saturday to make an appointment to be seen within the next 3 to 6 months for liver disease) Disposition Disposition (needs filled in before D/C Order can be placed): Home, Self Care Charges/Coding Visit Charges Inpatient E&M: 51941 Disch Hosp >30min
[2023-01-25 12:56] VITALS: BP 118/57; PULSE 71; RESP 18; TEMP 36.4; O2SAT 96
--- NOTE | 2023-01-25 15:19 | PHA.DC_ITS ---
Pharmacy [facility] has performed discharge medication reconciliation and counseling for this patient. 1. CIPROFLOXACIN 500MG PO BID X 7 DAYS 2. METOPROLOL TARTRATE 25MG PO BID 3. METRONIDAZOLE 500MG PO TID x 7 DAYS The patient's discharge medication list was reviewed for discrepancies and discrepancies were resolved. The patient was counseled on the following discharge medications and changes in medications for homegoing were reviewed. The Reason for Use, instructions for use, and potential side effects were reviewed for all new medications. The patient's questions regarding all of their medications were answered. The patient was able to verbally demonstrate an understanding of their discharge medications. Patient counseled by senior pharmacy technician, Dilip. Medications at Discharge Home Medications aspirin 81 mg tablet 81 mg PO DAILY BLOOD THINNER 09/06/22 cyanocobalamin (vitamin B-12) 1,000 mcg tablet (Vitamin B-12) 1,000 mcg PO DAILY SUPPLEMENT 09/06/22 gabapentin 300 mg capsule 900 mg PO TID PAIN 09/06/22 glimepiride 4 mg tablet 4 mg PO BID DIABETES 09/06/22 zjkojlvlcln-pnpcbetee-nap C-Mn 500 mg-400 mg capsule (Glucosamine Chondroitin Maximum Strength) 1 cap PO DAILY SUPPLEMENT 09/06/22 lamotrigine 25 mg tablet 25 mg PO DAILY PT UNSURE 09/06/22 losartan 50 mg tablet 50 mg PO DAILY BP 09/06/22 metformin 750 mg tablet,extended release 24 hr 750 mg PO BID DIABETES 09/06/22 potassium 99 mg tablet 99 mg PO DAILY SUPPLEMENT 09/06/22 magnesium oxide 500 mg capsule 500 mg PO DAILY SUPPLEMENT 09/10/22 cholecalciferol (vitamin D3) 25 mcg (1,000 unit) capsule (Vitamin D3) 25 mcg PO DAILY SUPPLEMENT 09/13/22 meloxicam 7.5 mg tablet 7.5 mg PO PRN PRN FOOT PAIN 09/13/22 pyridoxine (vitamin B6) 50 mg tablet (Vitamin B-6) 50 mg PO DAILY SUPPLEMENT 09/13/22 tamsulosin 0.4 mg capsule 0.4 mg PO DAILY@1730 30 days #30 caps 09/20/22 simvastatin 20 mg tablet 20 mg PO DAILY 10/11/22 ciprofloxacin HCl 500 mg tablet 500 mg PO BID #14 tabs 01/25/23 metoprolol tartrate 25 mg tablet 25 mg PO BID #60 tabs 01/25/23 metronidazole 500 mg tablet 500 mg PO TID #21 tabs 01/25/23
[2023-01-28 13:56] LABS: Pathologist Review Reviewed
== END 2023-01-25 12:45 | disposition home or self-care (01) ==
LOC: ED 15:03 → PCU 15:47
PROVIDERS: Admitting Provider Internal Medicine; Emergency Provider Emergency Medicine; PCP Student in an Organized Health Care Education/Training Program; Visit Provider Internal Medicine
DX: N39.0 Urinary tract infection, site not specified (principal); E11.40 Type 2 diabetes mellitus with diabetic neuropathy, unspecified; I48.91 Unspecified atrial fibrillation; D69.6 Thrombocytopenia, unspecified; B96.20 Unspecified Escherichia coli [E. coli] as the cause of diseases classified elsewhere; E78.00 Pure hypercholesterolemia, unspecified; R42 Dizziness and giddiness; Z79.82 Long term (current) use of aspirin; Z86.73 Personal history of transient ischemic attack (TIA), and cerebral infarction without residual deficits; N40.0 Benign prostatic hyperplasia without lower urinary tract symptoms; I07.1 Rheumatic tricuspid insufficiency; K57.92 Diverticulitis of intestine, part unspecified, without perforation or abscess without bleeding; N28.9 Disorder of kidney and ureter, unspecified; I10 Essential (primary) hypertension; Z79.84 Long term (current) use of oral hypoglycemic drugs; R53.1 Weakness; Z79.899 Other long term (current) drug therapy
CPT/HCPCS: 36415; 71046; 74176; 80048; 80053; 81001; 82607; 82962; 84439; 84443; 84481; 85025; 85610; 85730; 87077; 87086; 87088; 87186; 93005; 93306; 96365; 96366; 97161; 97165; 99221; 99285; J7030; J7040; J7050; Q9957; A4216; C8929; G0378

== ENCOUNTER → 2023-03-25 | Outpatient (CLI) | payer MEDICARE, OTHER, SELFPAY ==
--- NOTE | 2023-03-25 12:32 | CDU_ITS ---
Reason For Study: S/P RT CEA Rt. Velocities/BP Lt. Velocities/BP Prox CCA 73.8/5.8 cm/sec. Prox CCA 109.5/17.3 cm/sec. Mid CCA 94.1/5.1 cm/sec. Mid CCA 109.5/8.6 cm/sec. Dist CCA 76.5/10.6 cm/sec. Dist CCA 107.3/10.8 cm/sec. Prox ICA 46.2/6.5 cm/sec. Prox ICA 92.0/14.6 cm/sec. Mid ICA 65.1/8.4 cm/sec. Mid ICA 107.3/13.0 cm/sec. Dist ICA 93.2/13.4 cm/sec. Dist ICA 122.7/10.8 cm/sec. Rt. ICA/CCA = 93.2/94.1=1.0. Lt. ICA/CCA = 107.3/109.5=1.0. Prox ECA 83.1/8.4 cm/sec. Prox ECA 122.7/10.8 cm/sec. Rt. Vert. 69.9/15.8 cm/sec. Lt. Vert. 74.8/15.8 cm/sec. Right Extracranial There is intimal thickening but no significant atherosclerotic plaque noted in the right common carotid artery. There is heterogeneous, irregular atherosclerotic plaque noted in the right internal carotid artery. The atherosclerotic plaque causes acoustic shadowing. There is homogeneous, smooth atherosclerotic plaque noted in the right external carotid artery. Antegrade flow is noted in the right vertebral artery. Left Extracranial There is heterogeneous, irregular atherosclerotic plaque noted in the left common carotid artery. There is homogeneous, irregular atherosclerotic plaque noted in the left internal carotid artery. The left internal carotid artery is not well visualized. There is homogeneous, smooth atherosclerotic plaque noted in the left external carotid artery. Antegrade flow is noted in the left vertebral artery. Procedure Carotid Duplex [id number]. This is a Carotid Duplex examination using B-mode, color flow and specral Doppler. The study was technically difficult. Exam performed in department. VL/Carotid Duplex Ultrasound Interpretation Summary Mild (<50%) stenosis right extracranial internal carotid. Mild (<50%) stenosis left extracranial internal carotid. Patent and antegrade vertebrals bilaterally. Limited study on the left, vessel difficult to visualize Ordering Physician: Nellie Rowell Referring Physician: Harlan Ford Performed By: Rebecca Carlson RDCS, RVT
== END | disposition home or self-care (01) ==
LOC: CVS 12:32
PROVIDERS: PCP Student in an Organized Health Care Education/Training Program; Referring Provider Physician Assistant; Visit Provider Physician Assistant
DX: I65.21 Occlusion and stenosis of right carotid artery (principal)
CPT/HCPCS: 93880

== ENCOUNTER → 2023-07-23 | Outpatient (CLI) | payer MEDICARE, OTHER, SELFPAY ==
[2023-07-23 15:00] LABS: International Normalized Ratio 1.2; Prothrombin Time (Protime)PT. 14.9 SECONDS (11.7-14.9)
== END | disposition home or self-care (01) ==
LOC: LAB 14:17
PROVIDERS: PCP Student in an Organized Health Care Education/Training Program; Referring Provider Physician Assistant Medical; Visit Provider Physician Assistant Medical
DX: K57.92 Diverticulitis of intestine, part unspecified, without perforation or abscess without bleeding (principal)
CPT/HCPCS: 36415; 85610

== ENCOUNTER → 2023-07-30 | Outpatient (CLI) | payer MEDICARE, OTHER, SELFPAY ==
[2023-07-30 13:57] LABS: Absolute Lymphocyte Count 0.45 X10^3/uL (0.83-4.51); Absolute Neutrophil Count 2.2 X10^3/uL (2.0-7.7); Basophil# 0.02 X10^3/uL; Basophil% 0.6 % (0-1); Eosinophil# 0.05 X10^3/uL; Eosinophils% 1.6 % (0-5); Hematocrit 40.9 % (40-54); Hemoglobin 13.7 g/dL (13.0-16.5); Lymphocyte # 0.45 X10^3/ul (0.83-4.51); Lymphocyte % 14.6 % (19-41); Mean Corp Hgb Conc 33.5 g/dL (32-36); Mean Corpuscular Hgb 31.9 pg (27.0-32.0); Mean Corpuscular Volume 95.1 fL (80-94); Monocyte# 0.33 X10^3/uL; Monocyte% 10.7 % (0-10); NRBC Flagged by Analyzer 0 % (0-5); Neutrophil # 2.23 X10^3/uL (2.7-7.7); Neutrophil % 72.2 % (47-70); POSITIVE COUNT YES; POSITIVE DIFFERENTIAL YES; Platelet Count 72 K/mm3 (150-450); RBC Distribution Width CV 13.1 % (11.6-14.6); RBC Distribution Width SD 45.7 fl (35.1-43.9); White Blood Count 3.1 K/mm3 (4.4-11.0)
[2023-07-30 14:06] LABS: International Normalized Ratio 1.1; Prothrombin Time (Protime)PT. 14.6 SECONDS (11.7-14.9)
[2023-07-30 14:18] LABS: Differential Indicated SCAN CRITERIA MET
[2023-07-30 14:36] LABS: Differential Comment SCANNED
[2023-07-31 14:33] LABS: Pathologist Review Reviewed
== END | disposition home or self-care (01) ==
LOC: LAB 13:22
PROVIDERS: PCP Student in an Organized Health Care Education/Training Program; Referring Provider Physician Assistant Medical; Visit Provider Physician Assistant Medical
DX: I10 Essential (primary) hypertension (principal); Z79.01 Long term (current) use of anticoagulants
CPT/HCPCS: 36415; 85025; 85610

== ENCOUNTER 2023-08-06 12:09 | Outpatient (RCR) | payer MEDICARE, OTHER, SELFPAY ==
--- OUTSIDE RECORDS SUMMARY | 2023-08-06 12:32 | XMS RPT_ITS | CCD ---
Author Name Unknown Address [id number] [place] [address] Organization [facility] Care Team Providers Care Statistical Analyst Name Role Phone HARLAN MILLER DO Primary Care Physician Harlan Miller DO Primary Care Provider Paul BIGGS Harlan Waldo Primary Care Provider SERA BRUCE Attending Unavailable MILLER, HARLAN L Primary Care Unavailable MILLER, HARLAN L Referring Unavailable MILLER, HARLAN L Primary Care Unavailable FRANCINE VERGARA Attending Unavailable HAYLEE BRADY Referring Unavailable MILLER, HARLAN L Primary Care Unavailable MILLER, HARLAN L Primary Care Unavailable MILLER, HARLAN L Primary Care Unavailable MILLER, HARLAN L Attending Unavailable MILLER, HARLAN L Primary Care Unavailable MILLER, HARLAN L Referring Unavailable MILLER, HARLAN L Primary Care Unavailable MAGDALENAAGENJAZ Attending Unavailable MILLER, HARLAN L Primary Care Unavailable JAZ MALLORY Referring Unavailable MILLER, HARLAN L Primary Care Unavailable MILLER, HARLAN L Referring Unavailable MILLER, HARLAN L Attending Unavailable MILLER, HARLAN L Primary Care Unavailable MILLER, HARLAN L Primary Care Unavailable MILLER, HARLAN L Referring Unavailable MILLER, HARLAN L Attending Unavailable MILLER, HARLAN L Primary Care Unavailable MILLER, HARLAN L Primary Care Unavailable FRANCINE VERGARA Referring Unavailable MILLER, HARLAN L Primary Care Unavailable MILLER, HARLAN L Attending Unavailable FRANCINE VERGARA Referring Unavailable MILLER, HARLAN L Primary Care Unavailable MILLER, HARLAN L Referring Unavailable Allergies Allergy Classification Reported Allergen(s) Allergy Type Date of Onset Reaction(s) Facility (20 sources) pregabalin; Translations: [pregabalin] Drug Allergy 12-25-2010 Other: See Comments [facility] Work Phone: Medications Current Medications Medication Drug Class(es) Dates Sig (Normalized) Sig (Original) gabapentin 300 mg oral capsule (20 sources) Anti-epileptic Agent Start: 08-18-2021 gabapentin 300 mg oral capsule Dose : 900 mg = 3 cap(s), Oral, TID, 0 Refill(s) Start Date: 08/18/21 Status: Ordered Completed/Discontinued Medications Medication Drug Class(es) Dates Sig (Normalized) Sig (Original) aspirin 81 mg chewable tablet (20 sources) Platelet Aggregation Inhibitor, Nonsteroidal Anti-inflammatory Drug Start: 01-03-2022 End: 04-03-2022 take 1 tablet by mouth once daily aspirin 81 mg chewable tablet Take 1 tablet by mouth once daily. 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; Translations: [Cerebral infarction due to unspecified occlusion or stenosis of right carotid arteries] Onset: 10-10-2022 Chronic Cardiac dysrhythmias (7 sources) Atrial fibrillation with rapid ventricular response; Translations: [Unspecified atrial fibrillation] Onset: 02-13-2023 02-13-2023 Chronic Coagulation and hemorrhagic disorders (12 sources) Thrombocytopenic disorder; Translations: [Thrombocytopenia, unspecified] Onset: 11-14-2022 Chronic Diabetes mellitus with complications (20 sources) Type 2 diabetes mellitus; Translations: [Type 2 diabetes mellitus with diabetic polyneuropathy] Onset: 04-14-2015 Chronic Disorders of lipid metabolism (20 sources) Mixed hyperlipidemia; Translations: [Mixed hyperlipidemia] Onset: 11-21-2006 Chronic Diverticulosis and diverticulitis (6 sources) Diverticulitis of intestine; Translations: [Diverticulitis of intestine, part unspecified, without perforation or abscess without bleeding] Onset: 02-13-2023 02-13-2023 Chronic Essential hypertension (20 sources) Essential hypertension; Translations: [Essential (primary) hypertension] Onset: 04-25-2010 Chronic Hyperplasia of prostate (11 sources) Benign prostatic hyperplasia; Translations: [Benign prostatic hyperplasia with lower urinary tract symptoms] Onset: 11-14-2022 Chronic Miscellaneous mental health disorders (20 sources) Psychosexual dysfunction; Translations: [Unspecified sexual dysfunction not due to a substance or known physiological condition] Onset: 12-16-2006 12-16-2006 Chronic Nutritional deficiencies (14 sources) Vitamin D deficiency; Translations: [Vitamin D deficiency, unspecified] Onset: 11-14-2022 Chronic Occlusion or stenosis of precerebral arteries (1 source) Bilateral stenosis of carotid arteries; Translations: [Occlusion and stenosis of bilateral carotid arteries] Chronic Osteoarthritis (20 sources) Osteoarthritis of left knee joint; Translations: [Unilateral primary osteoarthritis, left knee] Onset: 08-02-2021 Chronic Other connective tissue disease (1 source) Cramp in calf; Translations: [Cramp and spasm] Episodic Other inflammatory condition of skin (20 sources) Psoriasis; Translations: [Other psoriasis] Onset: 04-23-2008 08-31-2008 Chronic Other inflammatory condition of skin (20 sources) Rosacea; Translations: [Rosacea, unspecified] Onset: 12-20-2008 12-20-2008 Chronic Other liver diseases (20 sources) Steatosis of liver; Translations: [Fatty (change of) liver, not elsewhere classified] Onset: 07-22-2016 07-22-2016 Chronic Other nervous system disorders (5 sources) Polyneuropathy; Translations: [Other specified polyneuropathies] Chronic Other nervous system disorders (20 sources) Peripheral nerve disease ; Translations: [Polyneuropathy, unspecified] Onset: 05-20-2018 05-20-2018 Chronic Other nervous system disorders (1 source) Other specified polyneuropathies; Translations: [Other polyneuropathy] Onset: 05-20-2018 Chronic Other nutritional; endocrine; and metabolic disorders (20 sources) Obese class I; Translations: [Obesity, unspecified] Onset: 02-18-2017 02-18-2017 Chronic Other nutritional; endocrine; and metabolic disorders (11 sources) Hypercalcemia; Translations: [Hypercalcemia] Onset: 11-14-2022 Chronic Other nutritional; endocrine; and metabolic disorders (1 source) Hypercalcemia; Translations: [Hypercalcemia] Onset: 11-14-2022 Chronic Peripheral and visceral atherosclerosis (18 sources) Peripheral vascular disease, unspecified; Translations: [Peripheral vascular disease, unspecified] Onset: 11-14-2022 Chronic Past or Other Problems Problem Classification Problem Date Documented Date Episodic/Chronic Coagulation and hemorrhagic disorders (20 sources) Thrombocytopenia due to hypersplenism; Translations: [Other secondary thrombocytopenia] Onset: 11-25-2006 07-22-2016 Episodic Other circulatory disease (19 sources) Abnormal foot pulse; Translations: [Other specified symptoms and signs involving the circulatory and respiratory systems] Onset: 08-08-2022 Episodic Other circulatory disease (1 source) Other specified symptoms and signs involving the circulatory and respiratory systems; Translations: [Decreased pulses in feet] Onset: 08-08-2022 Episodic Other connective tissue disease (19 sources) Cramp; Translations: [Cramp and spasm] Onset: 08-08-2022 Episodic Other diseases of kidney and ureters (7 sources) Acute renal insufficiency; Translations: [Disorder of kidney and ureter, unspecified] Onset: 02-13-2023 02-13-2023 Episodic Other hematologic conditions (20 sources) Hypersplenism; Translations: [Hypersplenism] Onset: 07-22-2016 07-22-2016 Episodic Other hematologic conditions (1 source) Hypersplenism; Translations: [Hypersplenism] Onset: 07-22-2016 Episodic Other inflammatory condition of skin (20 sources) Seborrheic dermatitis; Translations: [Seborrheic dermatitis, unspecified] Onset: 02-18-2017 08-24-2020 Episodic Other nervous system disorders (7 sources) Abnormal gait; Translations: [Unspecified abnormalities of gait and mobility] Onset: 02-13-2023 02-13-2023 Episodic Other non-traumatic joint disorders (19 sources) Shoulder pain; Translations: [Pain in left shoulder] Onset: 07-12-2016 07-12-2016 Episodic Other non-traumatic joint disorders (20 sources) Pain in left knee; Translations: [Pain in joint, lower leg] Onset: 08-02-2021 08-02-2021 Episodic Other non-traumatic joint disorders (6 sources) Pain in left shoulder; Translations: [Pain in joint, shoulder region] Onset: 07-12-2016 07-12-2016 Episodic Other screening for suspected conditions (not mental disorders or infectious disease) (20 sources) Patient encounter status; Translations: [Encounter for screening for malignant neoplasm of prostate] Onset: 02-18-2017 02-18-2017 Episodic Other skin disorders (20 sources) Seborrheic keratosis; Translations: [Other seborrheic keratosis] Onset: 12-20-2008 07-12-2016 Episodic Other skin disorders (20 sources) Actinic keratosis; Translations: [Actinic keratosis] Onset: 11-22-2020 11-22-2020 Episodic Other skin disorders (19 sources) Mass of neck; Translations: [Localized swelling, mass and lump, neck] Onset: 08-08-2022 Episodic Other skin disorders (1 source) Localized swelling, mass and lump, neck; Translations: [Mass of left side of neck] Onset: 08-08-2022 Episodic Residual codes; unclassified (19 sources) Intolerant of cold; Translations: [Other general symptoms and signs] Onset: 08-08-2022 Episodic Urinary tract infections (8 sources) Acute cystitis; Translations: [Acute cystitis with hematuria] Onset: 01-10-2023 02-13-2023 Episodic Results Test Name Value Interpretation Reference Range Facil ity Vital Signs Date Time Vital Sign Value Performing Clinician Facility 05-22-2023 12:25-0500 Body temperature 97.7 [degF] Harlan Miller DO Work Phone: [facility] 05-22-2023 12:25-0500 Body weight 92.08 kg Harlan Miller DO Work Phone: [facility] 05-22-2023 12:25-0500 Diastolic blood pressure 60 mm[Hg] Harlan Miller DO Work Phone: [facility] 05-22-2023 12:25-0500 Heart rate 88 /min Harlan Miller DO Work Phone: [facility] 05-22-2023 12:25-0500 Respiratory rate 16 /min Harlan Miller DO Work Phone: [facility] 05-22-2023 12:25-0500 Systolic blood pressure 120 mm[Hg] Harlan Miller DO Work Phone: [facility] 02-13-2023 13:29-0400 Body temperature 97.81 [degF] Harlan Miller DO Work Phone: [facility] 02-13-2023 13:29-0400 Body weight 90.27 kg Harlan Miller DO Work Phone: [facility] 02-13-2023 13:29-0400 Diastolic blood pressure 50 mm[Hg] Harlan Miller DO Work Phone: [facility] 02-13-2023 13:29-0400 Heart rate 76 /min Harlan Miller DO Work Phone: [facility] 02-13-2023 13:29-0400 Respiratory rate 20 /min Harlan Miller DO Work Phone: [facility] 02-13-2023 13:29-0400 Systolic blood pressure 120 mm[Hg] Harlan Miller DO Work Phone: [facility] 11-13-2022 15:39-0400 Body temperature 97 [degF] Harlan Miller DO Work Phone: [facility] 11-13-2022 15:39-0400 Body weight 91.17 kg Harlan Miller DO Work Phone: [facility] 11-13-2022 15:39-0400 Diastolic blood pressure 70 mm[Hg] Harlan Miller DO Work Phone: [facility] 11-13-2022 15:39-0400 Heart rate 76 /min Harlan Miller DO Work Phone: [facility] 11-13-2022 15:39-0400 Respiratory rate 16 /min Harlan Miller DO Work Phone: [facility] 11-13-2022 15:39-0400 Systolic blood pressure 124 mm[Hg] Harlan Miller DO Work Phone: [facility] 10-10-2022 10:12-0400 Body weight 91.54 kg Francine Ursula TELECOMMUNICATION LINES REPAIRER.ANIMAL LABORATORY TECHNICIAN Work Phone: [facility] 10-10-2022 10:12-0400 Diastolic blood pressure 58 mm[Hg] Francine Ursula TELECOMMUNICATION LINES REPAIRER.ANIMAL LABORATORY TECHNICIAN Work Phone: [facility] 10-10-2022 10:12-0400 Heart rate 77 /min Francine Ursula TELECOMMUNICATION LINES REPAIRER.ANIMAL LABORATORY TECHNICIAN Work Phone: [facility] 10-10-2022 10:12-0400 Respiratory rate 16 /min Francine Chanman TELECOMMUNICATION LINES REPAIRER.ANIMAL LABORATORY TECHNICIAN Work Phone: [facility] 10-10-2022 10:12-0400 SaO2% (BldA) [Mass fraction] 96 % Francine Chanman TELECOMMUNICATION LINES REPAIRER.ANIMAL LABORATORY TECHNICIAN Work Phone: [facility] 10-10-2022 10:12-0400 Systolic blood pressure 122 mm[Hg] Francine Chanman TELECOMMUNICATION LINES REPAIRER.ANIMAL LABORATORY TECHNICIAN Work Phone: [facility] 09-05-2022 14:15-0500 Body height 171 cm Sera Bruce MD Work Phone: [facility] 09-05-2022 14:15-0500 Body weight 91.17 kg Sera Bruce MD Work Phone: [facility] 09-05-2022 14:15-0500 Diastolic blood pressure 54 mm[Hg] Sera Bruce MD Work Phone: [facility] 09-05-2022 14:15-0500 Heart rate 72 /min Sera Bruce MD Work Phone: [facility] 09-05-2022 14:15-0500 SaO2% (BldA) [Mass fraction] 96 % Sera Bruce MD Work Phone: [facility] 09-05-2022 14:15-0500 Systolic blood pressure 118 mm[Hg] Sera Bruce MD Work Phone: [facility] 08-08-2022 13:58-0500 Body temperature 97 [degF] Harlan Miller DO Work Phone: [facility] 08-08-2022 13:58-0500 Body weight 93.44 kg Harlan Miller DO Work Phone: [facility] 08-08-2022 13:58-0500 Diastolic blood pressure 60 mm[Hg] Harlan Miller DO Work Phone: [facility] 08-08-2022 13:58-0500 Heart rate 80 /min Harlan Miller DO Work Phone: [facility] 08-08-2022 13:58-0500 Respiratory rate 16 /min Harlan Miller DO Work Phone: [facility] 08-08-2022 13:58-0500 Systolic blood pressure 120 mm[Hg] Harlan Miller DO Work Phone: [facility] 01-31-2022 13:51-0400 Body weight 91.72 kg Francine Ursula TELECOMMUNICATION LINES REPAIRER.ANIMAL LABORATORY TECHNICIAN Work Phone: [facility] 01-31-2022 13:51-0400 Diastolic blood pressure 70 mm[Hg] Francine Ursula TELECOMMUNICATION LINES REPAIRER.ANIMAL LABORATORY TECHNICIAN Work Phone: [facility] 01-31-2022 13:51-0400 Heart rate 76 /min Francine Ursula TELECOMMUNICATION LINES REPAIRER.ANIMAL LABORATORY TECHNICIAN Work Phone: [facility] 01-31-2022 13:51-0400 Respiratory rate 16 /min Francine Ursula TELECOMMUNICATION LINES REPAIRER.ANIMAL LABORATORY TECHNICIAN Work Phone: [facility] 01-31-2022 13:51-0400 SaO2% (BldA) [Mass fraction] 96 % Francine Ursula TELECOMMUNICATION LINES REPAIRER.ANIMAL LABORATORY TECHNICIAN Work Phone: [facility] 01-31-2022 13:51-0400 Systolic blood pressure 122 mm[Hg] Francine Ursula TELECOMMUNICATION LINES REPAIRER.ANIMAL LABORATORY TECHNICIAN Work Phone: [facility] 10-31-2021 14:15-0400 Body height 171 cm Harlan Miller DO Work Phone: [facility] 10-31-2021 14:15-0400 Body weight 90.27 kg Harlan Miller DO Work Phone: [facility] 10-31-2021 14:15-0400 Diastolic blood pressure 80 mm[Hg] Harlan Miller DO Work Phone: [facility] 10-31-2021 14:15-0400 Heart rate 72 /min Harlan Miller DO Work Phone: [facility] 10-31-2021 14:15-0400 Respiratory rate 12 /min Harlan Miller DO Work Phone: [facility] 10-31-2021 14:15-0400 Systolic blood pressure 138 mm[Hg] Harlan Miller DO Work Phone: [facility] 08-29-2021 12:40-0500 Body temperature 96.62 [degF] DR RADHA CHOI MD [facility] 08-29-2021 12:40-0500 Diastolic Blood Pressure NBP [address] RADHA CHOI MD [facility] 08-29-2021 12:40-0500 Heart rate 79 /min DR RADHA CHOI MD [facility] 08-29-2021 12:40-0500 Respiratory rate 18 /min DR RADHA CHOI MD [facility] 08-29-2021 12:40-0500 Systolic Blood Pressure NBP [address] RADHA CHOI MD [facility] 08-29-2021 11:03-0500 Diastolic Blood Pressure NBP [address] RADAH CHOI MD [facility] 08-29-2021 11:03-0500 Heart rate 75 /min DR RADHA CHOI MD [facility] 08-29-2021 11:03-0500 Respiratory rate 18 /min DR RADHA CHOI MD [facility] 08-29-2021 11:03-0500 Systolic Blood Pressure NBP [address] RADHA CHOI MD [facility] 08-29-2021 10:55-0500 Diastolic Blood Pressure NBP [address] RADAH CHOI MD [facility] 08-29-2021 10:55-0500 Heart rate 75 /min DR RADHA CHOI MD [facility] 08-29-2021 10:55-0500 Respiratory rate 20 /min DR RADHA CHOI MD [facility] 08-29-2021 10:55-0500 Systolic Blood Pressure NBP [address] RADHA CHOI MD [facility] 08-29-2021 10:15-0500 Body temperature 96.44 [degF] DR RADHA CHOI MD [facility] 08-29-2021 05:54-0500 Body temperature 97.88 [degF] DR RADHA CHOI MD [facility] 08-29-2021 05:54-0500 Heart rate 79 /min DR RADHA CHOI MD [facility] 08-18-2021 13:10-0500 Body height [address] RADHA CHOI MD [facility] 08-18-2021 13:10-0500 Body weight 92.[address] RADHA CHOI MD [facility] Encounters Encounter Date Encounter Type Care Provider Facility Start: 06-10-2023 Refill Harlan hodges DO Work Phone: [facility] Procedures Date Procedure Procedure Detail Performing Clinician Start: 08-29-[address] RADHA CHOI MD Plan of Treatment Date Care Activity Detail Author Start: 01-03-2031 Urine microalbumin profile DTa P,Tdap,Td Vaccine (2 - Td or Tdap) [facility] Start: 04-11-2030 Colonoscopy COLONOSCOPY [facility] Start: 04-11-2030 COLORECTAL CANCER SCREENING COLORECTAL CANCER SCREENING [facility] Start: 05-22-2024 Annual PCP Team Lunchroom Worker cassandra Disease Visit Annual PCP Team Chronic Disease Visit [facility] Start: 05-22-2024 BP Controlled (<130/80) BP Controlle d (<130/80) [facility] Start: 05-22-2024 Covid-19 Vaccine ( season) Covid-19 Vaccine ( season) [facility] Immunizations Immunization Date Immunization Notes Care Provider Vargas cartwright 04-24-2023 influenza (aIIV4) vaccine, age 65+ yr, quadrivalent, PF (FLUAD QUAD) Harlan Miller DO Work Phone: [facility] 07-21-2022 zoster vaccine recombinant Harlan Miller DO Work Phone: [facility] 04-09-2022 influenza virus vacc ine, unspecified formulation Harlan Miller DO Work Phone: [facility] 01-03-2021 tetanus toxoid, redu edy diphtheria toxoid, and acellular pertussis vaccine, adsorbed Harlan Miller DO Work Phone: [facility] 09-16-2020 COVID-19 vaccine, ag e 12+ yr (PFIZER-BIONTECH - PURPLE TOP) Harlan Miller DO Work Phone: [facility] Work Phone: 08-26-2020 COVID-19 vaccine, ag e 12+ yr (PFIZER-BIONTECH - PURPLE TOP) Harlan Miller DO Work Phone: [facility] Work Phone: 11-21-2019 zoster vaccine recombinant Harlan Miller DO Work Phone: [facility] 06-04-2019 zoster vaccine recombinant Harlan Miller DO Work Phone: [facility] 05-20-2019 zoster vaccine recombinant Harlan Miller DO Work Phone: [facility] 05-19-2019 influenza, high dose seasonal, preservative-free Harlan Miller DO Work Phone: [facility] Work Phone: 05-20-2018 influenza, high dose seasonal, preservative-free Harlan Miller DO Work Phone: [facility] Work Phone: 05-21-2017 influenza, high dose seasonal, preservative-free Harlan Miller DO Work Phone: [facility] Work Phone: 07-12-2016 pneumococcal polysaccharide vaccine, 23 valent Hralan Miller DO Work Phone: [facility] Work Phone: 05-07-2016 influenza, high dose seasonal, preservative-free Harlan Miller DO Work Phone: [facility] Work Phone: 07-11-2015 influenza, high dose seasonal, preservative-free Harlan Miller DO Work Phone: [facility] 12-21-2014 pneumococcal conjuga te vaccine, 13 valent Harlan Miller DO Work Phone: [facility] 05-28-2014 influenza, seasonal, injectable Harlan Miller DO Work Phone: [facility] 04-16-2013 influenza virus vacc ine, unspecified formulation Harlan Miller DO Work Phone: [facility] 05-05-2012 zoster vaccine, live Harlan Miller DO Work Phone: [facility] 04-17-2011 influenza virus vacc ine, unspecified formulation Harlan Miller DO Work Phone: [facility] 04-05-2010 influenza virus vacc ine, unspecified formulation Harlan Miller DO Work Phone: [facility] Work Phone: 03-30-2009 influenza virus vacc ine, unspecified formulation Harlan Miller DO Work Phone: [facility] 05-14-2008 influenza virus vacc ine, unspecified formulation Harlan Miller DO Work Phone: [facility] Work Phone: 04-29-2007 influenza virus vacc ine, unspecified formulation Harlan Miller DO Work Phone: [facility] 04-29-2007 tetanus and diphther ia toxoids, adsorbed, preservative free, for adult use (2 Lf of tetanus toxoid and 2 Lf of diphtheria toxoid) Harlan Miller DO Work Phone: [facility] 12-05-2006 pneumococcal polysaccharide vaccine, 23 valent Harlan Caraballorison DO Work Phone: [facility] Work Phone: Payers Date Payer Category Payer Medicare [id number] 2015 Private Health Insurance [employer] HU[employer]NA MEDICARE SUPPLEMENT [id number] 2015-Present [phone] [address] [address] [place] [address] Indemnity [id number] 2015 Private Health Insurance [employer] HU[employer]NA MEDICARE SUPPLEMENT [id number] 2015-Present [phone] [address] [address] [place] [address] Indemnity [id number] 2011 Medicare MEDICARE MEDICAR E A AND B [id number] 2011-Present [phone] [place] [address] Medicare [id number] 2011 Medicare MEDICARE MEDICAR E A AND B [id number] 2011-Present [phone] [place] [address] Medicare [id number] 2011 Medicare [id number] Social History Date Type Detail Facility Start: 08-18-2021 End: 08-08-2022 Never smoked tobacco (finding) [facility] Sex Assigned At Male [facility] Start: 10-31-2021 End: 05-22-2023 Alcohol intake Current drinker of alcohol (finding) [facility] Start: 05-17-2020 History SDOH Alcohol Frequency 3 [facility] Start: 04-11-2020 History SDOH Alcohol Comment beer [facility] Start: 1945 Sex Assigned At Not on file [facility] Start: 10-21-2021 End: 01-31-2022 Exposure to SARS-CoV-2 (event) Not sure [facility] Start: 08-08-2022 Tobacco use and exposure Smokeless tobacco non-user [facility] Work Phone: Start: 11-07-2022 End: 01-10-2023 History of Social function [facility] Work Phone: Start: 11-07-2022 End: 01-10-2023 [facility] [facility] Work Phone: Adult Depression Screening Assessment 0 [facility] Work Phone: How often to you hav e a drink containing alcohol? 2-4 times a month [facility] Medical Equipment Procedure Code Equipment Code Equipment Origin al Text Equipment Identifier Dates Start: 07-13-2016 End: 06-10-2023 Clinical Notes 11-19-2018 to 06-10-2023 Telephone Encounter - Kathi Vital MA - 06/10/2023 10:45 AM ESTTelephone Encounter - Kaylee Jolly - 06/10/2023 10:36 AM Harlan Tavera DO - 05/22/2023 12:50 PM ESTPatient Instructions Note Date & Type Note Facility 06-10-2023 Miscellaneous Notes Patient has been identified by name and date of : Yes Requested Prescriptions Pending Prescriptions Disp Refills blood sugar diagnostic (ONETOUCH ULTRA TEST) test strip 100 Strip 3 Sig: Test blood sugars once daily. DX: E11.42 Insulin: No RX INSTRUCTIONS: Patient aware RX will be sent to pharmacy. No need to notify patient. Kathi Vital MA [facility] 05/2023 Nov 08/2023 Last refill; 12/2021 Patient has been identified by name and date of : Yes Requested Prescriptions Pending Prescriptions Disp Refills blood sugar diagnostic (ONETOUCH ULTRA TEST) test strip 100 Strip 3 Sig: Test blood sugars once daily. DX: E11.42 Insulin: No RX INSTRUCTIONS: Patient aware RX will be sent to pharmacy. No need to notify patient. Kaylee Feng documented in this encounter [facility] 05-22-2023 Note HNO ID: [id number] Author: Harlan Miller DO Service: ? Author Type: Physician Type: Progress Notes Filed: 05/22/2023 1:20 PM Note Text: Patient presents with: F/U 3 Month HPI: Lara Solano is a 77 year old male who presents to the office today for review of health conditions. Concerns today: Peripheral neuropathy, he is interested in trying medical marijuana to see if this would help his symptoms. He is taking neurontin as prescribed. Mood, stable, taking lamictal, no concerns. Thrombocytopenia, intermittent hx of, has seen Dr. Mario in the past in 2019 with otherwise negative work up Hemoglobin (g/dL) Date Value 05/20/2023 13.8 07/28/2021 15.1 Hematocrit (%) Date Value 05/20/2023 41.9 07/28/2021 43.9 WBC (k/uL) Date Value 05/20/2023 3.79 07/28/2021 5.09 Arthritis, joint pains, chronic, stable, taking meloxicam as needed. 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 Mr. Solano has past history of diabetes. Since our last visit he denies excessive thirst or increased frequency of urination, chest pain or dyspnea , new or unusual visual symptoms, and low sugar/hypoglycemic reactions. Depression- yes, stable, chronic.. Follows a diabetic diet some of the time. He is compliant with medication(s) and is tolerating med(s) without any side effects. He reports checking his glucose on a once a day schedule with sugars in the <150 range. Patient's last HgA1C was Hemoglobin A1C (%) Date Value 05/20/2023 7.6 02/06/2023 7.2 07/28/2021 7.0 05/22/2021 7.0 ) Last Ophthalmology exam was within the past 12 months Mr. Solano reports history of hyperlipidemia. Current therapy includes simvastatin (Zocor) 20 mg. Denies side effects of muscle weakness or achiness. His most recent lipid panels are reviewed. Cholesterol, Total (mg/dL) Date Value 02/06/2023 174 05/22/2021 188 HDL Cholesterol (mg/dL) Date Value 02/06/2023 43 05/22/2021 40 LDL Cholesterol (mg/dL) Date Value 02/06/2023 93 05/22/2021 101 Triglyceride (mg/dL) Date Value 02/06/2023 192 05/22/2021 233 Mr. Solano indicates a history of hypertension and states that he is feeling well and denies any symptoms referable to elevated blood pressure. Specifically denies headache, chest pain, palpitations, dyspnea, and peripheral edema. Patient denies any side effects of his medication(s) and is compliant with their regimen. Last 3 Encounter BP Readings: Date: BP: 05/22/2023 120/60 02/13/2023 120/50 01/10/2023 118/62 He watches his diet for sodium, low fat and low cholesterol some of the time. He does not check BP's generally. Lara gets sporadic irregular exercise. PAST MEDICAL HISTORY Diagnosis Date Benign neoplasm of colon Diverticulosis of colon (without mention of hemorrhage) 01/30/2008 Hyperlipemia Hypertension Internal hemorrhoids without mention of complication 01/30/2008 Nonspecific abnormal finding in stool contents Other chronic dermatitis due to solar radiation 04/23/2008 Other seborrheic keratosis 12/20/2008 Pancytopenia 11/28/2007 Personal history of other malignant neoplasm of skin 04/23/2008 PMH - PAST MEDICAL HISTORY OF neuropathy PRURIGO NODULARIS///LICHENIFICATION 12/20/2008 Recurrent UTI 01/2023 didn't respond to Keflex, did well with Cipro Scar condition and fibrosis of skin 04/23/2008 Seborrheic dermatitis, unspecified 04/23/2008 Type II or unspecified type diabetes mellitus without mention of complication, not stated as uncontrolled Umbilical hernia without mention of obstruction or gangrene 04/07/2009 Unspecified pruritic disorder 04/23/2008 PAST SURGICAL HISTORY Procedure Laterality Date CHOLECYSTECTOMY 07/18/1982 Cholecystectomy COLONOSCOPY FLX DX W/COLLJ SPEC WHEN PFRMD y Colonoscopy repeat in 10 years COLSC FLX W/RMVL OF TUMOR POLYP LESION SNARE TQ 01/30/08 EYE SURGERY HX LAPAROSCOPY SURG RPR INITIAL INGUINAL HERNIA 05-06-09 LEFT INGUINAL PAST SURGICAL HISTORY OF Skin lesion removed from nose RPR UMBILICAL HERNIA AGE 6 YRS/> INCARCERATED 05-06-09 Social History Tobacco Use Smoking status: Never Smokeless tobacco: Never Vaping Use Vaping Use: Never used Substance Use Topics Alcohol use: Yes Comment: beer Drug use: No FAMILY HISTORY Problem Relation Age of Onset Breast Cancer Mother Heart Father chf Breast Cancer Sister Allergies: ALLERGIES Allergen Reactions Lyrica [Pregabalin] Other: See Comments Cough Current Meds: gabapentin (NEURONTIN) 300 mg capsule TAKE 3 CAPSULES 3 TIMES A DAY metFORMIN ER (GLUCOPHAGE XR) 750 mg 24 hr tablet Take 1 tablet by mouth twice daily with meals. lamoTRIgine (LAMICTAL) 25 mg tablet Take 1 tablet by mouth once daily. losartan (COZAAR) 50 mg tablet Take 1 tablet by mouth once daily. clopidogrel (PLAVIX) 75 mg tablet Take 75 mg by mouth once daily. c (more content not included)... [facility] 05-22-2023 History of Present illness Narrative Patient presents with: F/U 3 Month HPI: Lara Solano is a 77 year old male who presents to the office today for review of health conditions. Concerns today: Peripheral neuropathy, he is interested in trying medical marijuana to see if this would help his symptoms. He is taking neurontin as prescribed. Mood, stable, taking lamictal, no concerns. Thrombocytopenia, intermittent hx of, has seen Dr. Mario in the past in 2019 with otherwise negative work up Hemoglobin (g/dL) Date Value 05/20/2023 13.8 07/28/2021 15.1 Hematocrit (%) Date Value 05/20/2023 41.9 07/28/2021 43.9 WBC (k/uL) Date Value 05/20/2023 3.79 07/28/2021 5.09 Arthritis, joint pains, chronic, stable, taking meloxicam as needed. 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 Mr. Solano has past history of diabetes. Since our last visit he denies excessive thirst or increased frequency of urination, chest pain or dyspnea , new or unusual visual symptoms, and low sugar/hypoglycemic reactions. Depression- yes, stable, chronic.. Follows a diabetic diet some of the time. He is compliant with medication(s) and is tolerating med(s) without any side effects. He reports checking his glucose on a once a day schedule with sugars in the <150 range. Patient's last HgA1C was Hemoglobin A1C (%) Date Value 05/20/2023 7.6 02/06/2023 7.2 07/28/2021 7.0 05/22/2021 7.0 ) Last Ophthalmology exam was within the past 12 months Mr. Solano reports history of hyperlipidemia. Current therapy includes simvastatin (Zocor) 20 mg. Denies side effects of muscle weakness or achiness. His most recent lipid panels are reviewed. Cholesterol, Total (mg/dL) Date Value 02/06/2023 174 05/22/2021 188 HDL Cholesterol (mg/dL) Date Value 02/06/2023 43 05/22/2021 40 LDL Cholesterol (mg/dL) Date Value 02/06/2023 93 05/22/2021 101 Triglyceride (mg/dL) Date Value 02/06/2023 192 05/22/2021 233 Mr. Solano indicates a history of hypertension and states that he is feeling well and denies any symptoms referable to elevated blood pressure. Specifically denies headache, chest pain, palpitations, dyspnea, and peripheral edema. Patient denies any side effects of his medication(s) and is compliant with their regimen. Last 3 Encounter BP Readings: Date: BP: 05/22/2023 120/60 02/13/2023 120/50 01/10/2023 118/62 He watches his diet for sodium, low fat and low cholesterol some of the time. He does not check BP's generally. Lara gets sporadic irregular exercise. PAST MEDICAL HISTORY Diagnosis Date Benign neoplasm of colon Diverticulosis of colon (without mention of hemorrhage) 01/30/2008 Hyperlipemia Hypertension Internal hemorrhoids without mention of complication 01/30/2008 Nonspecific abnormal finding in stool contents Other chronic dermatitis due to solar radiation 04/23/2008 Other seborrheic keratosis 12/20/2008 Pancytopenia 11/28/2007 Personal history of other malignant neoplasm of skin 04/23/2008 PMH - PAST MEDICAL HISTORY OF neuropathy PRURIGO NODULARIS///LICHENIFICATION 12/20/2008 Recurrent UTI 01/2023 didn't respond to Keflex, did well with Cipro Scar condition and fibrosis of skin 04/23/2008 Seborrheic dermatitis, unspecified 04/23/2008 Type II or unspecified type diabetes mellitus without mention of complication, not stated as uncontrolled Umbilical hernia without mention of obstruction or gangrene 04/07/2009 Unspecified pruritic disorder 04/23/2008 PAST SURGICAL HISTORY Procedure Laterality Date CHOLECYSTECTOMY 07/18/1982 Cholecystectomy COLONOSCOPY FLX DX W/COLLJ SPEC WHEN PFRMD y Colonoscopy repeat in 10 years COLSC FLX W/RMVL OF TUMOR POLYP LESION SNARE TQ 01/30/08 EYE SURGERY HX LAPAROSCOPY SURG RPR INITIAL INGUINAL HERNIA 05-06-09 LEFT INGUINAL PAST SURGICAL HISTORY OF Skin lesion removed from nose RPR UMBILICAL HERNIA AGE 6 YRS/> INCARCERATED 05-06-09 Social History Tobacco Use Smoking status: Never Smokeless tobacco: Never Vaping Use Vaping Use: Never used Substance Use Topics Alcohol use: Yes Comment: beer Drug use: No FAMILY HISTORY Problem Relation Age of Onset Breast Cancer Mother Heart Father chf Breast Cancer Sister Allergies: ALLERGIES Allergen Reactions Lyrica [Pregabalin] Other: See Comments Cough Current Meds: gabapentin (NEURONTIN) 300 mg capsule TAKE 3 CAPSULES 3 TIMES A DAY metFORMIN ER (GLUCOPHAGE XR) 750 mg 24 hr tablet Take 1 tablet by mouth twice daily with meals. lamoTRIgine (LAMICTAL) 25 mg tablet Take 1 tablet by mouth once daily. losartan (COZAAR) 50 mg tablet Take 1 tablet by mouth once daily. clopidogrel (PLAVIX) 75 mg tablet Take 75 mg by mouth once daily. cholecalciferol, vitamin D3, (VITAMIN D3 ORAL) Take 1 tablet by mouth once daily. POTASSIUM-99 ORAL Take 1 tablet by mouth once daily. Magnesium 200 mg tab Take 500 mg by mouth once daily. aspirin 81 mg chewable tablet Take 1 tablet by mouth once daily. blood sugar diagnostic (BLOOD GLUCOSE TEST) test strip Test blood sugar(s) 1 times daily. Dx: Other DM Code E11.42 Insulin: No. Patient uses One Touch Verio Clobetasol Propionate (TEMOVATE) 0.05 % external solution Apply 1 application to affected area once daily as needed (scalp psoriasis). cyanocobalamin (VITAMIN B-12) 1,000 mcg tab Take 1,000 mcg by mouth once daily. blood sugar diagnostic (ONETOUCH ULTRA TEST) test strip Test blood sugars once daily. DX: E11.42 Insulin: No COMPOUNDED PRESCRIPTION Diabetic shoes Dx: E11.65, DM2 Last office visit 05/20/18. ketoconazole (NIZORAL) 2 % shampoo Apply 1 application to affected area once daily as needed for Itching/Rash (scalp itching). 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 Dx: Other DM Code E11.42 Insulin: No blood sugar diagnostic (BLOOD GLUCOSE TEST) test strip Test blood sugar(s) 1 times daily. Dx: Other DM Code E11.42 Insulin: No Clobetasol Propionate 0.05 % external solution Apply to scalp psoriasis patches and plaques selectively qday to bid (once or twice a day) as needed and AVOID face, eyes, eyelids, and deep fold areas. Ipxmmkmmfcm-Htzhcqhba-Jvg C-Mn (GLUCOSAMINE CHONDROITIN MAXSTR) 500-400 mg ORAL Cap Take one(1) tablet daily. Aspirin 81 mg ORAL Tab Take one(1) tablet daily. simvastatin (ZOCOR) 20 mg tablet Take 1 tablet by mouth once daily. glimepiride (AMARYL) 4 mg tablet Take 1 tablet by mouth two times a day with meals. meloxicam (MOBIC) 7.5 mg tablet TAKE 1 TABLET BY MOUTH ONCE DAILY. NEEDED FOR FOOT PAIN, WITH FOOD. Review of Systems: The remainder of the review of systems is negative. PE: 05/22/23 1225 BP: 120/60 Pulse: 88 Resp: 16 Temp: 36.5 C (97.7 F) TempSrc: Left Tympanic Weight: 92.1 kg (203 lb) Gen: A&O, NAD, non-toxic appearing, Pleasant, cooperative, hard of hearing HEENT: NT/AC, PERRLA, EOMs intact b/l, nares clear and patent b/l, pharynx without erythema, exudate or lesions. Uvula midline. MMM Neck: supple, No cervical LAD, no thyromegaly, no carotid bruits CV: RRR, normal S1 and S2, 1-2/6 HSM RUSB soft blowing murmurs, no gallops, no rubs, Pulses 2+ and symmetric in UE and LE b/l Lungs: normal respiratory effort, CTA b/l, no wheezing or rhonchi or rales Abd: soft, overweight, NT, ND, +BS, no hepatosplenomegaly MS: FROM all 4 extremities Neuro: CN II-XII intact b/l, strength 5/5 b/l UE and LE, DTRs 2/4 UE and LE, sensation intact. Skin: warm, dry, intact, scattered angiomas and solar lentigos and seborrheic keratoses Foot exam: Monofilament abnormal on right and left feet. ASSESSMENT/PLAN: 1. Type 2 diabetes mellitus with diabetic polyneuropathy, without long-term current use of insulin (HCC) - ICD9: 250.60, 357.2, ICD10: E11.42 (primary diagnosis) - Worsening control - Continue current medications - Blood glucose monitoring on a once daily schedule - Counseled on healthy diet and regular exercise - Discussed need for and benefit of weight loss. BMI 31.49 kg/(m^2) 2. Mixed hyperlipidemia - ICD9: 272.2, ICD10: E78.2 - Controlled - Continue current medications - Counseled on healthy diet and regular exercise - Discussed need for and benefit of weight loss. BMI 31.49 kg/(m^2) - SIMVASTATIN 20 MG TABLET 3. Other polyneuropathy - ICD9: 357.89, ICD10: G62.89 Continue same medications 4. Vitamin D deficiency - ICD9: 268.9, ICD10: E55.9 Continue supplement 5. 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 Acute renal insufficiency - ICD9: 593.9, ICD10: N28.9 Resolved. 7. Hypertension, essential - ICD9: 401.9, ICD10: I10 - Controlled - Continue current medications - Recommend home blood pressure monitoring, to bring results to next visit - Encouraged sodium restriction, DASH or Mediterranean diet - Recommend regular aerobic exercise - Discussed need for and benefit of weight loss. BMI 31.49 kg/(m^2) - Reviewed risks of hypertension and principles of treatment 8. Gait disorder - ICD9: 781.2, ICD10: R26.9 Need for more exercise as able as d/w him today 9. PAD (peripheral artery disease) (HCC) - ICD9: 443.9, ICD10: I73.9 Need for more exercise as able as d/w him today 10. Thrombocytopenia (HCC) - ICD9: 287.5, ICD10: D69.6 F/u with opinion by Application Support Analyst to determine if any other testing is needed. Harlan Miller DO To ER if develops chest pain, shortness of breath, or severe worsening of symptoms. Discussed risks, benefits, alternatives, and potential side effects of medications. Patient expressed understanding and agreed with the plan. Harlan Miller DO [address] [place] [address] documented in this encounter [facility] 03-22-2023 Miscellaneous Notes Patient has been identified by name and date of : Yes Requested Prescriptions Pending Prescriptions Disp Refills gabapentin (NEURONTIN) 300 mg capsule 810 capsule 1 Sig: TAKE 3 CAPSULES 3 TIMES A DAY DICK-02/13/23 Labs-02/06/23 NOV-05/22/23 RX INSTRUCTIONS: Patient aware RX will be sent to pharmacy. No need to notify patient. Rhianna Helton documented in this encounter [facility] 02-21-2023 Miscellaneous Notes Last refill 05/10/22 Qty: 180 with 1 refill DICK 02/13/23 NOV 05/22/23 Guille Wolfe LPN Patient has been identified by name and date of : Yes, Provider PAUL Patient phones for refill(s): Requested Prescriptions Pending Prescriptions Disp Refills metFORMIN ER (GLUCOPHAGE XR) 750 mg 24 hr tablet 180 tablet 1 Sig: Take 1 tablet by mouth twice daily with meals. [facility] NOTIFIED THE PATIENT THAT THEY DO NOT HAVE ANY MORE REFILLS Date of last office visit in primary care: 02/13/23 Last 2 Encounter Wt Readings: Date: Wt: 02/13/2023 90.3 kg (199 lb) 11/13/2022 91.2 kg (201 lb) Previous labs/tests for medication: Not applicable Please advise. Thank you. Erika Smith documented in this encounter [facility] 02-13-2023 Note HNO ID: [id number] Author: Miller, Harlan L, DO Service: ? Author Type: Physician Type: Progress Notes Filed: 02/13/2023 9:26 PM Note Text: Patient presents with: F/U 3 Month HPI: Lara Solano is a 77 year old male who presents to the office today for review of health conditions. Concerns today: Overall is feeling better. Recently at [facility] for acute diverticulitis, UTI, acute renal insufficiency, confusion and lethargy. He was treated with ciprofloxacin and metronidazole medication. UTI was previously diagnosed and he was treated with keflex but symptoms worsened and he wasn't aware infection wasn't resolved- didn't have follow up urine testing. Now feels he is regaining his energy and appetite. While in the hospital. He was found to have 1 episode of atrial fibrillation which resolved. He just had a follow up outpatient with [facility] and will be wearing a cafeteria monitor for further evaluation. He is asymptomatic. Mr. Solano has past history of diabetes. Since our last visit he denies excessive thirst or increased frequency of urination, chest pain or dyspnea , new or unusual visual symptoms, and low sugar/hypoglycemic reactions. Depression- no. Follows a diabetic diet some of the time. He is compliant with medication(s) and is tolerating med(s) without any side effects. He reports checking his glucose on a once a day schedule with sugars in the <120 range. Patient's last HgA1C was Hemoglobin A1C (%) Date Value 02/06/2023 7.2 11/09/2022 7.2 07/28/2021 7.0 05/22/2021 7.0 ) Last Ophthalmology exam was within the past 12 months Mr. Solano reports history of hyperlipidemia. Current therapy includes simvastatin (Zocor) 20 mg. Denies side effects of muscle weakness or achiness. His most recent lipid panels are reviewed. Cholesterol, Total (mg/dL) Date Value 02/06/2023 174 05/22/2021 188 HDL Cholesterol (mg/dL) Date Value 02/06/2023 43 05/22/2021 40 LDL Cholesterol (mg/dL) Date Value 02/06/2023 93 05/22/2021 101 Triglyceride (mg/dL) Date Value 02/06/2023 192 05/22/2021 233 Mr. Solano indicates a history of hypertension and states that he is feeling well and denies any symptoms referable to elevated blood pressure. Specifically denies headache, chest pain, palpitations, dyspnea, and peripheral edema. Patient denies any side effects of his medication(s) and is compliant with their regimen. Last 3 Encounter BP Readings: Date: BP: 02/13/2023 120/50 01/10/2023 118/62 11/13/2022 124/70 He watches his diet for sodium, low fat and low cholesterol most of the time. He does not check BP's generally. Lara gets minimal exercise. PAST MEDICAL HISTORY Diagnosis Date Benign neoplasm of colon Diverticulosis of colon (without mention of hemorrhage) 01/30/2008 Hyperlipemia Hypertension Internal hemorrhoids without mention of complication 01/30/2008 Nonspecific abnormal finding in stool contents Other chronic dermatitis due to solar radiation 04/23/2008 Other seborrheic keratosis 12/20/2008 Pancytopenia 11/28/2007 Personal history of other malignant neoplasm of skin 04/23/2008 PMH - PAST MEDICAL HISTORY OF neuropathy PRURIGO NODULARIS///LICHENIFICATION 12/20/2008 Recurrent UTI 01/2023 didn't respond to Keflex, did well with Cipro Scar condition and fibrosis of skin 04/23/2008 Seborrheic dermatitis, unspecified 04/23/2008 Type II or unspecified type diabetes mellitus without mention of complication, not stated as uncontrolled Umbilical hernia without mention of obstruction or gangrene 04/07/2009 Unspecified pruritic disorder 04/23/2008 PAST SURGICAL HISTORY Procedure Laterality Date CHOLECYSTECTOMY 07/18/1982 Cholecystectomy COLONOSCOPY FLX DX W/COLLJ SPEC WHEN PFRMD y Colonoscopy repeat in 10 years COLSC FLX W/RMVL OF TUMOR POLYP LESION SNARE TQ 01/30/08 EYE SURGERY HX LAPAROSCOPY SURG RPR INITIAL INGUINAL HERNIA 05-06-09 LEFT INGUINAL PAST SURGICAL HISTORY OF Skin lesion removed from nose RPR UMBILICAL HERNIA AGE 6 YRS/> INCARCERATED 05-06-09 Social History Tobacco Use Smoking status: Never Smokeless tobacco: Never Vaping Use Vaping Use: Never used Substance Use Topics Alcohol use: Yes Comment: beer Drug use: No FAMILY HISTORY Problem Relation Age of Onset Breast Cancer Mother Heart Father chf Breast Cancer Sister Allergies: ALLERGIES Allergen Reactions Lyrica [Pregabalin] Other: See Comments Cough Current Meds: losartan (COZAAR) 50 mg tablet Take 1 tablet by mouth once daily. simvastatin (ZOCOR) 20 mg tablet Take 1 tablet by mouth once daily. glimepiride (AMARYL) 4 mg tablet Take 1 tablet by mouth twice daily with meals. meloxicam (MOBIC) 7.5 mg tablet TAKE 1 TABLET BY MOUTH ONCE DAILY. NEEDED FOR FOOT PAIN, WITH FOOD. clopidogrel (PLAVIX) 75 mg tablet Take 75 mg by mouth once daily. cholecalciferol, vitamin D3, (VITAMIN D3 ORAL) Take 1 tablet by tanja (more content not included)... [facility] 02-13-2023 History of Present illness Narrative Patient presents with: F/U 3 Month HPI: Lara Solano is a 77 year old male who presents to the office today for review of health conditions. Concerns today: Overall is feeling better. Recently at [facility] for acute diverticulitis, UTI, acute renal insufficiency, confusion and lethargy. He was treated with ciprofloxacin and metronidazole medication. UTI was previously diagnosed and he was treated with keflex but symptoms worsened and he wasn't aware infection wasn't resolved- didn't have follow up urine testing. Now feels he is regaining his energy and appetite. While in the hospital. He was found to have 1 episode of atrial fibrillation which resolved. He just had a follow up outpatient with [facility] and will be wearing a cafeteria monitor for further evaluation. He is asymptomatic. Mr. Solano has past history of diabetes. Since our last visit he denies excessive thirst or increased frequency of urination, chest pain or dyspnea , new or unusual visual symptoms, and low sugar/hypoglycemic reactions. Depression- no. Follows a diabetic diet some of the time. He is compliant with medication(s) and is tolerating med(s) without any side effects. He reports checking his glucose on a once a day schedule with sugars in the <120 range. Patient's last HgA1C was Hemoglobin A1C (%) Date Value 02/06/2023 7.2 11/09/2022 7.2 07/28/2021 7.0 05/22/2021 7.0 ) Last Ophthalmology exam was within the past 12 months Mr. Solano reports history of hyperlipidemia. Current therapy includes simvastatin (Zocor) 20 mg. Denies side effects of muscle weakness or achiness. His most recent lipid panels are reviewed. Cholesterol, Total (mg/dL) Date Value 02/06/2023 174 05/22/2021 188 HDL Cholesterol (mg/dL) Date Value 02/06/2023 43 05/22/2021 40 LDL Cholesterol (mg/dL) Date Value 02/06/2023 93 05/22/2021 101 Triglyceride (mg/dL) Date Value 02/06/2023 192 05/22/2021 233 Mr. Solano indicates a history of hypertension and states that he is feeling well and denies any symptoms referable to elevated blood pressure. Specifically denies headache, chest pain, palpitations, dyspnea, and peripheral edema. Patient denies any side effects of his medication(s) and is compliant with their regimen. Last 3 Encounter BP Readings: Date: BP: 02/13/2023 120/50 01/10/2023 118/62 11/13/2022 124/70 He watches his diet for sodium, low fat and low cholesterol most of the time. He does not check BP's generally. Lara gets minimal exercise. PAST MEDICAL HISTORY Diagnosis Date Benign neoplasm of colon Diverticulosis of colon (without mention of hemorrhage) 01/30/2008 Hyperlipemia Hypertension Internal hemorrhoids without mention of complication 01/30/2008 Nonspecific abnormal finding in stool contents Other chronic dermatitis due to solar radiation 04/23/2008 Other seborrheic keratosis 12/20/2008 Pancytopenia 11/28/2007 Personal history of other malignant neoplasm of skin 04/23/2008 PMH - PAST MEDICAL HISTORY OF neuropathy PRURIGO NODULARIS///LICHENIFICATION 12/20/2008 Recurrent UTI 01/2023 didn't respond to Keflex, did well with Cipro Scar condition and fibrosis of skin 04/23/2008 Seborrheic dermatitis, unspecified 04/23/2008 Type II or unspecified type diabetes mellitus without mention of complication, not stated as uncontrolled Umbilical hernia without mention of obstruction or gangrene 04/07/2009 Unspecified pruritic disorder 04/23/2008 PAST SURGICAL HISTORY Procedure Laterality Date CHOLECYSTECTOMY 07/18/1982 Cholecystectomy COLONOSCOPY FLX DX W/COLLJ SPEC WHEN PFRMD y Colonoscopy repeat in 10 years COLSC FLX W/RMVL OF TUMOR POLYP LESION SNARE TQ 01/30/08 EYE SURGERY HX LAPAROSCOPY SURG RPR INITIAL INGUINAL HERNIA 05-06-09 LEFT INGUINAL PAST SURGICAL HISTORY OF Skin lesion removed from nose RPR UMBILICAL HERNIA AGE 6 YRS/> INCARCERATED 05-06-09 Social History Tobacco Use Smoking status: Never Smokeless tobacco: Never Vaping Use Vaping Use: Never used Substance Use Topics Alcohol use: Yes Comment: beer Drug use: No FAMILY HISTORY Problem Relation Age of Onset Breast Cancer Mother Heart Father chf Breast Cancer Sister Allergies: ALLERGIES Allergen Reactions Lyrica [Pregabalin] Other: See Comments Cough Current Meds: losartan (COZAAR) 50 mg tablet Take 1 tablet by mouth once daily. simvastatin (ZOCOR) 20 mg tablet Take 1 tablet by mouth once daily. glimepiride (AMARYL) 4 mg tablet Take 1 tablet by mouth twice daily with meals. meloxicam (MOBIC) 7.5 mg tablet TAKE 1 TABLET BY MOUTH ONCE DAILY. NEEDED FOR FOOT PAIN, WITH FOOD. clopidogrel (PLAVIX) 75 mg tablet Take 75 mg by mouth once daily. cholecalciferol, vitamin D3, (VITAMIN D3 ORAL) Take 1 tablet by mouth once daily. POTASSIUM-99 ORAL Take 1 tablet by mouth once daily. Magnesium 200 mg tab Take 500 mg by mouth once daily. gabapentin (NEURONTIN) 300 mg capsule TAKE 3 CAPSULES 3 TIMES A DAY metFORMIN ER (GLUCOPHAGE XR) 750 mg 24 hr tablet Take 1 tablet by mouth twice daily with meals. aspirin 81 mg chewable tablet Take 1 tablet by mouth once daily. blood sugar diagnostic (BLOOD GLUCOSE TEST) test strip Test blood sugar(s) 1 times daily. Dx: Other DM Code E11.42 Insulin: No. Patient uses One Touch Verio Clobetasol Propionate (TEMOVATE) 0.05 % external solution Apply 1 application to affected area once daily as needed (scalp psoriasis). cyanocobalamin (VITAMIN B-12) 1,000 mcg tab Take 1,000 mcg by mouth once daily. blood sugar diagnostic (ONETOUCH ULTRA TEST) test strip Test blood sugars once daily. DX: E11.42 Insulin: No COMPOUNDED PRESCRIPTION Diabetic shoes Dx: E11.65, DM2 Last office visit 05/20/18. ketoconazole (NIZORAL) 2 % shampoo Apply 1 application to affected area once daily as needed for Itching/Rash (scalp itching). 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 Dx: Other DM Code E11.42 Insulin: No blood sugar diagnostic (BLOOD GLUCOSE TEST) test strip Test blood sugar(s) 1 times daily. Dx: Other DM Code E11.42 Insulin: No Clobetasol Propionate 0.05 % external solution Apply to scalp psoriasis patches and plaques selectively qday to bid (once or twice a day) as needed and AVOID face, eyes, eyelids, and deep fold areas. Rbbhttzrucz-Qbpgbewgt-Tjo C-Mn (GLUCOSAMINE CHONDROITIN MAXSTR) 500-400 mg ORAL Cap Take one(1) tablet daily. Aspirin 81 mg ORAL Tab Take one(1) tablet daily. lamoTRIgine (LAMICTAL) 25 mg tablet Take 1 tablet by mouth once daily. Review of Systems: The remainder of the review of systems is negative. PE: 02/13/23 1329 BP: 120/50 Pulse: 76 Resp: 20 Temp: 36.6 C (97.8 F) TempSrc: Left Tympanic Weight: 90.3 kg (199 lb) Gen: A&O, NAD, non-toxic appearing, Pleasant, cooperative HEENT: NT/AC, PERRLA, EOMs intact b/l, nares clear and patent b/l, pharynx without erythema, exudate or lesions. Uvula midline, MMM. EACs without erythema or debris. TMs pearly gaona with intact landmarks b/l. Neck: supple, No cervical LAD, no thyromegaly, no carotid bruits CV: RRR, normal S1 and S2, no murmurs, no gallops, no rubs, Pulses 2+ and symmetric in UE and LE b/l Lungs: normal respiratory effort, CTA b/l, no wheezing or rhonchi or rales Abd: soft, NT, ND, +BS, no hepatosplenomegaly MS: FROM all 4 extremities Neuro: CN II-XII intact b/l, strength 5/5 b/l UE and LE, DTRs 2/4 UE and LE, sensation intact. Skin: warm, dry, intact, No rashes or lesions on exposed skin. Foot exam: Monofilament abnormal on right and left feet. No edema, normal pulses ASSESSMENT/PLAN: 1. Acute cystitis with hematuria - ICD9: 595.0, ICD10: N30.01 (primary diagnosis) Recent recheck of urine culture is normal, no signs of further bacterial growth. Cleared infection - LAMOTRIGINE 25 MG TABLET - URINALYSIS, WITH MICROSCOPIC - URINE CULTURE 2. Atrial fibrillation with rapid ventricular response (HCC) - ICD9: 427.31, ICD10: I48.91 - likely secondary to acute UTI and diverticulitis and renal insufficiency and dehydration. Hasn't had any recent episodes. Was seen by [facility] and will be having cafeteria monitor placed for evaluation further. 3. Acute diverticulitis - ICD9: 562.11, ICD10: K57.92 - resolved symptoms with rx for ciprofloxacin and metronidazole 4. Acute renal insufficiency - ICD9: 593.9, ICD10: N28.9 Resolved. 5. Type 2 diabetes mellitus with diabetic polyneuropathy, without long-term current use of insulin (HCC) - ICD9: 250.60, 357.2, ICD10: E11.42 - Uncontrolled - Improving control - Continue current medications - Blood glucose monitoring on a twice daily schedule - Counseled on healthy diet and regular exercise - Discussed need for and benefit of weight loss. BMI 30.87 kg/(m^2) 6. Gait disorder - ICD9: 781.2, ICD10: R26.9 Stable, chronic secondary to neuropathy, no falls. 7. Hypertension, essential - ICD9: 401.9, ICD10: I10 - Controlled - Continue current medications - Recommend home blood pressure monitoring, to bring results to next visit - Encouraged sodium restriction, DASH or Mediterranean diet - Recommend regular aerobic exercise 8. Other polyneuropathy - ICD9: 357.89, ICD10: G62.89 See above, chronic, no new changes Harlan Miller DO To ER if develops chest pain, shortness of breath, or severe worsening of symptoms. Discussed risks, benefits, alternatives, and potential side effects of medications. Patient expressed understanding and agreed with the plan. Harlan Miller DO [address] [place] [address] documented in this encounter [facility] 01-15-2023 Miscellaneous Notes DICK 01/10/23 NOV 02/13/23 Please review and advise. Thank you. ROSALINDA Kennedy Patient has been identified by name and date of : Yes Last office visit in this department: 01/10/2023 RX INSTRUCTIONS: Patient is entirely out of this medication. Patient aware RX will be sent to pharmacy. No need to notify patient. Patient phones requesting refills as follows: Requested Prescriptions Pending Prescriptions Disp Refills losartan (COZAAR) 50 mg tablet 90 tablet 3 Sig: Take 1 tablet by mouth once daily. Please review and advise. Yessi Dahl documented in this encounter [facility] 01-10-2023 Note HNO ID: [id number] Author: Jaz Mallory APRN.ANIMAL LABORATORY TECHNICIAN Service: ? Author Type: Nurse Practitioner Type: Progress Notes Filed: 01/10/2023 4:49 PM Note Text: This is a 77 year old male who presents today with: Patient presents with: ER F/U: [facility] ER 01/05/23 dx: UTI, nausea, confusion; was given IV Rocephin in ER, sent home with Keflex and Zofran HISTORY OF PRESENT ILLNESS: Lara Solano is a 77 year old male. Patient presents with: ER F/U: [facility] ER 01/05/23 dx: UTI, nausea, confusion; was given IV Rocephin in ER, sent home with Keflex and Zofran Pt presents today for ER follow-up. Went to [facility] on 01/05/23. Last Saturday afternoon, was at the [facility]. Started feeling goofy. Drove home. reports diaphoretic and wet himself. They called the squad and came and assessed, but did not go to the hospital. The next morning, he was wringing wet heat to toe. Incontinent of urine. Vomited. 911 called and they took to the hospital. They gave IV hydration. Had IV rocephin. Started cephalexin - taking 3 times daily. Feeling better. Appetite okay. Drinking adequate fluids. Normally doesn't get up to urinate. No frequency/urgency/dysuria/hematuri a. No change in stream. No dribbling. No nocturia. PAST MEDICAL HISTORY: PAST MEDICAL HISTORY Diagnosis Date Benign neoplasm of colon Diverticulosis of colon (without mention of hemorrhage) 01/30/2008 Hyperlipemia Hypertension Internal hemorrhoids without mention of complication 01/30/2008 Nonspecific abnormal finding in stool contents Other chronic dermatitis due to solar radiation 04/23/2008 Other seborrheic keratosis 12/20/2008 Pancytopenia 11/28/2007 Personal history of other malignant neoplasm of skin 04/23/2008 PMH - PAST MEDICAL HISTORY OF neuropathy PRURIGO NODULARIS///LICHENIFICATION 12/20/2008 Scar condition and fibrosis of skin 04/23/2008 Seborrheic dermatitis, unspecified 04/23/2008 Type II or unspecified type diabetes mellitus without mention of complication, not stated as uncontrolled Umbilical hernia without mention of obstruction or gangrene 04/07/2009 Unspecified pruritic disorder 04/23/2008 PAST SURGICAL HISTORY Procedure Laterality Date CHOLECYSTECTOMY 07/18/1982 Cholecystectomy COLONOSCOPY FLX DX W/COLLJ SPEC WHEN PFRMD y Colonoscopy repeat in 10 years COLSC FLX W/RMVL OF TUMOR POLYP LESION SNARE TQ 01/30/08 EYE SURGERY HX LAPAROSCOPY SURG RPR INITIAL INGUINAL HERNIA 05-06-09 LEFT INGUINAL PAST SURGICAL HISTORY OF Skin lesion removed from nose RPR UMBILICAL HERNIA AGE 6 YRS/> INCARCERATED 05-06-09 ALLERGIES Lyrica [Pregabalin] MEDICATIONS Current Outpatient Medications Medication Sig simvastatin (ZOCOR) 20 mg tablet Take 1 tablet by mouth once daily. glimepiride (AMARYL) 4 mg tablet Take 1 tablet by mouth twice daily with meals. hydroCHLOROthiazide 12.5 mg capsule Take 1 capsule by mouth once daily. meloxicam (MOBIC) 7.5 mg tablet TAKE 1 TABLET BY MOUTH ONCE DAILY. NEEDED FOR FOOT PAIN, WITH FOOD. clopidogrel (PLAVIX) 75 mg tablet Take 75 mg by mouth once daily. cholecalciferol, vitamin D3, (VITAMIN D3 ORAL) Take 1 tablet by mouth once daily. POTASSIUM-99 ORAL Take 1 tablet by mouth once daily. Magnesium 200 mg tab Take 500 mg by mouth once daily. gabapentin (NEURONTIN) 300 mg capsule TAKE 3 CAPSULES 3 TIMES A DAY metFORMIN ER (GLUCOPHAGE XR) 750 mg 24 hr tablet Take 1 tablet by mouth twice daily with meals. aspirin 81 mg chewable tablet Take 1 tablet by mouth once daily. blood sugar diagnostic (BLOOD GLUCOSE TEST) test strip Test blood sugar(s) 1 times daily. Dx: Other DM Code E11.42 Insulin: No. Patient uses One Touch Verio losartan (COZAAR) 50 mg tablet Take 1 tablet by mouth once daily. lamoTRIgine (LAMICTAL) 25 mg tablet Take 1 tablet by mouth once daily. Clobetasol Propionate (TEMOVATE) 0.05 % external solution Apply 1 application to affected area once daily as needed (scalp psoriasis). cyanocobalamin (VITAMIN B-12) 1,000 mcg tab Take 1,000 mcg by mouth once daily. blood sugar diagnostic (ONETOUCH ULTRA TEST) test strip Test blood sugars once daily. DX: E11.42 Insulin: No COMPOUNDED PRESCRIPTION Diabetic shoes Dx: E11.65, DM2 Last office visit 05/20/18. ketoconazole (NIZORAL) 2 % shampoo Apply 1 application to affected area once daily as needed for Itching/Rash (scalp itching). 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 Dx: Other DM Code E11.42 Insulin: No blood sugar diagnostic (BLOOD GLUCOSE TEST) test strip Test blood sugar(s) 1 times daily. Dx: Other DM Code E11.42 Insulin: No Clobetasol Propionate 0.05 % external solution Apply to scalp psoriasis patches and plaques selectively qday to bid (once or twice a day) as needed and AVOID f (more content not included)... [facility] 12-05-2022 Miscellaneous Notes Patient said this medication (simvastatin) was stopped when he was in [facility] in September. Wants a refill, but [facility] told him the doctor cancelled it. Please review and advise patient at [phone] if he is supposed to be taking it. He only has 4 pills left. Patient has been identified by name and date of : Yes Requested Prescriptions Pending Prescriptions Disp Refills simvastatin (ZOCOR) 20 mg tablet 90 tablet 1 Sig: Take 1 tablet by mouth once daily. DICK-11/13/22 Labs-11/09/22 NOV-02/13/23 med filled 05/10/22 RX INSTRUCTIONS: Patient requesting a call when RX is approved and sent to the pharmacy. Please call patient at: [phone] Mandy Toure Pss documented in this encounter [facility] 11-21-2022 Miscellaneous Notes Please Call PT when signed. [phone]. LVM if needed. Romana PSS Patient calling he had forgotten to ask at his appt yesterday, he needs renewal handicap placard rx. Patient has 2 of them. Patient would like to pickler helper when ready. Please advise documented in this encounter [facility] 11-19-2022 Note HNO ID: [id number] Author: Ayaka Samaniego Service: ? Author Type: ? Type: Progress Notes Filed: 11/19/2022 4:06 PM Note Text: POPULATION HEALTH NAVIGATION OUTREACH Action/FYI 2nd call, pt declined Patient Identified by Name and : YES, via phone Outreach Outcome/Action Spoke to patient / parent / legal guardian: Patient declined Did you use a PCP flex slot to schedule this appointment? No Reason for Outreach Care Gap or Scheduling/Wellness visits Payer: Payor: MEDICARE / Plan: MEDICARE A AND B / Product Type: Medicare / Care Gap Reviewed:: Specialty Scheduling Reminder: Reminder note to check Health Maintenance for items below Health Maintenance items due: DTAP,TDAP,TD(1 - Tdap) due on 04/30/2007 SHINGRIX VACCINE(3 of 3) due on 07/15/2019 COVID-19 VACCINE(4 - Booster for Pfizer series) due on 06/07/2021 URINE ALBUMIN:CREATININE RATIO due on 11/16/2021 Navigation Signature: Ayaka Samaniego November 19, 2022 4:06 PM [facility] 11-19-2022 History of Present illness Narrative POPULATION HEALTH NAVIGATION OUTREACH Action/FYI 2nd call, pt declined Patient Identified by Name and : YES, via phone Outreach Outcome/Action Spoke to patient / parent / legal guardian: Patient declined Did you use a PCP flex slot to schedule this appointment? No Reason for Outreach Care Gap or Scheduling/Wellness visits Payer: Payor: MEDICARE / Plan: MEDICARE A AND B / Product Type: Medicare / Care Gap Reviewed:: Specialty Scheduling Reminder: Reminder note to check Health Maintenance for items below Health Maintenance items due: DTAP,TDAP,TD(1 - Tdap) due on 04/30/2007 SHINGRIX VACCINE(3 of 3) due on 07/15/2019 COVID-19 VACCINE(4 - Booster for Pfizer series) due on 06/07/2021 URINE ALBUMIN:CREATININE RATIO due on 11/16/2021 Navigation Signature: Ayaka Samaniego November 19, 2022 4:06 PM documented in this encounter [facility] 11-19-2022 Note Patient Outreach (AC CC) LARA SOLANO ([id number]) 1945 M Date Time Provider Department 11/19/22 PCP (HISTORICAL) [facility] During your visit today, we recorded the following information about you: Ayaka Samaniego 11/19/2022 4:06 PM Signed POPULATION HEALTH NAVIGATION OUTREACH Action/FYI 2nd call, pt declined Patient Identified by Name and : YES, via phone Outreach Outcome/Action Spoke to patient / parent / legal guardian: Patient declined Did you use a PCP flex slot to schedule this appointment? No Reason for Outreach Care Gap or Scheduling/Wellness visits Payer: Payor: MEDICARE / Plan: MEDICARE A AND B / Product Type: Medicare / Care Gap Reviewed:: Specialty Scheduling Reminder: Reminder note to check Health Maintenance for items below Health Maintenance items due: DTAP,TDAP,TD(1 - Tdap) due on 04/30/2007 SHINGRIX VACCINE(3 of 3) due on 07/15/2019 COVID-19 VACCINE(4 - Booster for Pfizer series) due on 06/07/2021 URINE ALBUMIN:CREATININE RATIO due on 11/16/2021 Navigation Signature: Ayaka Villasenorkeke November 19, 2022 4:06 PM Allergies As of Date: 11/19/2022 Noted Allergy Reaction LYRICA (PREGABALIN) 12/25/2010 14 - Other: See Comments Comments: Cough Date Reviewed: 11/13/2022 Reviewed by: Mandy Monroy LPN - Fully Assessed Prescriptions as of 11/19/2022 - glimepiride (AMARYL) 4 mg tablet Take 1 tablet by mouth twice daily with meals. - hydroCHLOROthiazide 12.5 mg capsule Take 1 capsule by mouth once daily. - meloxicam (MOBIC) 7.5 mg tablet TAKE 1 TABLET BY MOUTH ONCE DAILY. NEEDED FOR FOOT PAIN, WITH FOOD. - clopidogrel (PLAVIX) 75 mg tablet Take 75 mg by mouth once daily. - cholecalciferol, vitamin D3, (VITAMIN D3 ORAL) Take 1 tablet by mouth once daily. - POTASSIUM-99 ORAL Take 1 tablet by mouth once daily. - Magnesium 200 mg tab Take 500 mg by mouth once daily. - gabapentin (NEURONTIN) 300 mg capsule TAKE 3 CAPSULES 3 TIMES A DAY - metFORMIN ER (GLUCOPHAGE XR) 750 mg 24 hr tablet Take 1 tablet by mouth twice daily with meals. - simvastatin (ZOCOR) 20 mg tablet Take 1 tablet by mouth once daily. - aspirin 81 mg chewable tablet Take 1 tablet by mouth once daily. - blood sugar diagnostic (BLOOD GLUCOSE TEST) test strip Test blood sugar(s) 1 times daily. Dx: Other DM Code E11.42 Insulin: No. Patient uses One Touch Verio - losartan (COZAAR) 50 mg tablet Take 1 tablet by mouth once daily. - lamoTRIgine (LAMICTAL) 25 mg tablet Take 1 tablet by mouth once daily. 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 - cyanocobalamin (VITAMIN B-12) 1,000 mcg tab Take 1,000 mcg by mouth once daily. - blood sugar diagnostic (ONETOUCH ULTRA TEST) test strip Test blood sugars once daily. DX: E11.42 Insulin: No - COMPOUNDED PRESCRIPTION Diabetic shoes Dx: E11.65, DM2 Last office visit 05/20/18. - ketoconazole (NIZORAL) 2 % shampoo Apply 1 application to affected area once daily as needed for Itching/Rash (scalp itching). 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 Dx: Other DM Code E11.42 Insulin: No - blood sugar diagnostic (BLOOD GLUCOSE TEST) test strip Test blood sugar(s) 1 times daily. Dx: Other DM Code E11.42 Insulin: No - Clobetasol Propionate 0.05 % external solution Apply to scalp psoriasis patches and plaques selectively qday to bid (once or twice a day) as needed and AVOID face, eyes, eyelids, and deep fold areas. - Ibfjgchkghv-Ybclzowmk-Qkq C-Mn (GLUCOSAMINE CHONDROITIN MAXSTR) 500-400 mg ORAL Cap Take one(1) tablet daily. - Aspirin 81 mg ORAL Tab Take one(1) tablet daily. 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, *11/25/2006 ERECTILE DYSFUNCTION [F52.9] 12/16/2006 Pancytopenia [284.1] 11/28/2007 07/12/2016 Benign neoplasm of colon [D12.6] 01/30/2008 07/12/2016 Internal hemorrhoids without mention of complic*01/30/2008 07/12/2016 Personal history of other malignant neoplasm of*04/23/2008 07/12/2016 OTHER PSORIASIS [L40.8] 04/23/2008 ROSACEA [L71.9] 12/20/2008 Umbilical hernia without mention of obstruction*04/07/2009 07/12/2016 Inguinal hernia unilateral 04/07/2009 07/12/2016 HTN (hypertension) [I10] 04/25/2010 Lrm-dgqo-yuiq proliferative diabetic retinopath*05/28/2014 05/28/2014 Nonproliferative diabetic retinopathy (HCC) [E1*05/28/2014 05/0 (more content not included)... [facility] 11-14-2022 Note HNO ID: [id number] Author: Ayaka Samaniego Service: ? Author Type: ? Type: Progress Notes Filed: 11/14/2022 1:59 PM Note Text: POPULATION HEALTH NAVIGATION OUTREACH Action/FYI 1st call, left vm Patient Identified by Name and : NO Outreach Outcome/Action Unable to reach patient: Left message Did you use a PCP flex slot to schedule this appointment? No Reason for Outreach Care Gap or Scheduling/Wellness visits Payer: Payor: MEDICARE / Plan: MEDICARE A AND B / Product Type: Medicare / Care Gap Reviewed:: Specialty Scheduling Reminder: Reminder note to check Health Maintenance for items below Health Maintenance items due: DTAP,TDAP,TD(1 - Tdap) due on 04/30/2007 SHINGRIX VACCINE(3 of 3) due on 07/15/2019 COVID-19 VACCINE(4 - Booster for Pfizer series) due on 06/07/2021 URINE ALBUMIN:CREATININE RATIO due on 11/16/2021 Navigation Signature: Ayaka Samaniego November 14, 2022 1:59 PM [facility] 11-14-2022 Note Patient Outreach (AC CC) LARA SOLANO ([id number]) 1945 M Date Time Provider Department 11/14/22 PCP (HISTORICAL) [facility] During your visit today, we recorded the following information about you: Ayaka Aden 11/14/2022 1:59 PM Signed POPULATION HEALTH NAVIGATION OUTREACH Action/I 1st call, left vm Patient Identified by Name and : NO Outreach Outcome/Action Unable to reach patient: Left message Did you use a PCP flex slot to schedule this appointment? No Reason for Outreach Care Gap or Scheduling/Wellness visits Payer: Payor: MEDICARE / Plan: MEDICARE A AND B / Product Type: Medicare / Care Gap Reviewed:: Specialty Scheduling Reminder: Reminder note to check Health Maintenance for items below Health Maintenance items due: DTAP,TDAP,TD(1 - Tdap) due on 04/30/2007 SHINGRIX VACCINE(3 of 3) due on 07/15/2019 COVID-19 VACCINE(4 - Booster for Pfizer series) due on 06/07/2021 URINE ALBUMIN:CREATININE RATIO due on 11/16/2021 Navigation Signature: Ayaka Samaniego November 14, 2022 1:59 PM Allergies As of Date: 11/14/2022 Noted Allergy Reaction LYRICA (PREGABALIN) 12/25/2010 14 - Other: See Comments Comments: Cough Date Reviewed: 11/13/2022 Reviewed by: Mandy Monroy LPN - Fully Assessed Prescriptions as of 11/14/2022 - glimepiride (AMARYL) 4 mg tablet Take 1 tablet by mouth twice daily with meals. - hydroCHLOROthiazide 12.5 mg capsule Take 1 capsule by mouth once daily. - meloxicam (MOBIC) 7.5 mg tablet TAKE 1 TABLET BY MOUTH ONCE DAILY. NEEDED FOR FOOT PAIN, WITH FOOD. - clopidogrel (PLAVIX) 75 mg tablet Take 75 mg by mouth once daily. - cholecalciferol, vitamin D3, (VITAMIN D3 ORAL) Take 1 tablet by mouth once daily. - POTASSIUM-99 ORAL Take 1 tablet by mouth once daily. - Magnesium 200 mg tab Take 500 mg by mouth once daily. - gabapentin (NEURONTIN) 300 mg capsule TAKE 3 CAPSULES 3 TIMES A DAY - metFORMIN ER (GLUCOPHAGE XR) 750 mg 24 hr tablet Take 1 tablet by mouth twice daily with meals. - simvastatin (ZOCOR) 20 mg tablet Take 1 tablet by mouth once daily. - aspirin 81 mg chewable tablet Take 1 tablet by mouth once daily. - blood sugar diagnostic (BLOOD GLUCOSE TEST) test strip Test blood sugar(s) 1 times daily. Dx: Other DM Code E11.42 Insulin: No. Patient uses One Touch Verio - losartan (COZAAR) 50 mg tablet Take 1 tablet by mouth once daily. - lamoTRIgine (LAMICTAL) 25 mg tablet Take 1 tablet by mouth once daily. 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 - cyanocobalamin (VITAMIN B-12) 1,000 mcg tab Take 1,000 mcg by mouth once daily. - blood sugar diagnostic (ONETOUCH ULTRA TEST) test strip Test blood sugars once daily. DX: E11.42 Insulin: No - COMPOUNDED PRESCRIPTION Diabetic shoes Dx: E11.65, DM2 Last office visit 05/20/18. - ketoconazole (NIZORAL) 2 % shampoo Apply 1 application to affected area once daily as needed for Itching/Rash (scalp itching). 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 Dx: Other DM Code E11.42 Insulin: No - blood sugar diagnostic (BLOOD GLUCOSE TEST) test strip Test blood sugar(s) 1 times daily. Dx: Other DM Code E11.42 Insulin: No - Clobetasol Propionate 0.05 % external solution Apply to scalp psoriasis patches and plaques selectively qday to bid (once or twice a day) as needed and AVOID face, eyes, eyelids, and deep fold areas. - Wdkeftcrwxy-Vpxyiqukk-Glq C-Mn (GLUCOSAMINE CHONDROITIN MAXSTR) 500-400 mg ORAL Cap Take one(1) tablet daily. - Aspirin 81 mg ORAL Tab Take one(1) tablet daily. 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, *11/25/2006 ERECTILE DYSFUNCTION [F52.9] 12/16/2006 Pancytopenia [284.1] 11/28/2007 07/12/2016 Benign neoplasm of colon [D12.6] 01/30/2008 07/12/2016 Internal hemorrhoids without mention of complic*01/30/2008 07/12/2016 Personal history of other malignant neoplasm of*04/23/2008 07/12/2016 OTHER PSORIASIS [L40.8] 04/23/2008 ROSACEA [L71.9] 12/20/2008 Umbilical hernia without mention of obstruction*04/07/2009 07/12/2016 Inguinal hernia unilateral 04/07/2009 07/12/2016 HTN (hypertension) [I10] 04/25/2010 Jyd-vedw-oogu proliferative diabetic retinopath*05/28/2014 05/28/2014 Nonproliferative diabetic retinopathy (HCC) [E1*05/28/2014 11/13/2019 Uncontrolled type 2 diabetes m (more content not included)... [facility] 11-14-2022 Note HNO ID: [id number] Author: Harlan Miller, DO Service: ? Author Type: Physician Type: Progress Notes Filed: 11/14/2022 7:39 AM Note Text: Patient presents with: F/U 3 Month HPI: Lara Solano is a 76 year old male who presents to the office today for review of health conditions. 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 Able to drive locally. Peripheral neuropathy, moderate/severe, long standing, using supplements and massage with some benefit as well as current medications. Feet and lower leg symptoms. Mr. Solano has past history of diabetes. Since our last visit he denies excessive thirst or increased frequency of urination, chest pain or dyspnea , and low sugar/hypoglycemic reactions. Depression- no. Follows a diabetic diet most of the time. He is compliant with medication(s) and is tolerating med(s) without any side effects. He reports checking his glucose on a once a day schedule with sugars in the <120 range. Patient's last HgA1C was Hemoglobin A1C (%) Date Value 11/09/2022 7.2 08/03/2022 9.2 07/28/2021 7.0 05/22/2021 7.0 ) Last Ophthalmology exam was within the past 3 months Mr. Solano reports history of hyperlipidemia. Current therapy includes simvastatin (Zocor) 20 mg. Denies side effects of muscle weakness or achiness. His most recent lipid panels are reviewed. Cholesterol, Total (mg/dL) Date Value 08/03/2022 186 05/22/2021 188 HDL Cholesterol (mg/dL) Date Value 08/03/2022 37 05/22/2021 40 LDL Cholesterol (mg/dL) Date Value 08/03/2022 106 05/22/2021 101 Triglyceride (mg/dL) Date Value 08/03/2022 215 05/22/2021 233 Mr. Solano indicates a history of hypertension and states that he is feeling well and denies any symptoms referable to elevated blood pressure. Specifically denies headache, chest pain, palpitations, dyspnea, and peripheral edema. Patient denies any side effects of his medication(s) and is compliant with their regimen. Last 3 Encounter BP Readings: Date: BP: 11/13/2022 124/70 10/10/2022 122/58 09/05/2022 118/54 He watches his diet for sodium, low fat and low cholesterol most of the time. He does not check BP's generally. Lara gets minimal exercise. PAST MEDICAL HISTORY Diagnosis Date Benign neoplasm of colon Diverticulosis of colon (without mention of hemorrhage) 01/30/2008 Hyperlipemia Hypertension Internal hemorrhoids without mention of complication 01/30/2008 Nonspecific abnormal finding in stool contents Other chronic dermatitis due to solar radiation 04/23/2008 Other seborrheic keratosis 12/20/2008 Pancytopenia 11/28/2007 Personal history of other malignant neoplasm of skin 04/23/2008 PMH - PAST MEDICAL HISTORY OF neuropathy PRURIGO NODULARIS///LICHENIFICATION 12/20/2008 Scar condition and fibrosis of skin 04/23/2008 Seborrheic dermatitis, unspecified 04/23/2008 Type II or unspecified type diabetes mellitus without mention of complication, not stated as uncontrolled Umbilical hernia without mention of obstruction or gangrene 04/07/2009 Unspecified pruritic disorder 04/23/2008 PAST SURGICAL HISTORY Procedure Laterality Date CHOLECYSTECTOMY 07/18/1982 Cholecystectomy COLONOSCOPY FLX DX W/COLLJ SPEC WHEN PFRMD y Colonoscopy repeat in 10 years COLSC FLX W/RMVL OF TUMOR POLYP LESION SNARE TQ 01/30/08 EYE SURGERY HX LAPAROSCOPY SURG RPR INITIAL INGUINAL HERNIA 05-06-09 LEFT INGUINAL PAST SURGICAL HISTORY OF Skin lesion removed from nose RPR UMBILICAL HERNIA AGE 6 YRS/> INCARCERATED 05-06-09 Social History Tobacco Use Smoking status: Never Smokeless tobacco: Never Vaping Use Vaping Use: Never used Substance Use Topics Alcohol use: Yes Comment: beer Drug use: No FAMILY HISTORY Problem Relation Age of Onset Breast Cancer Mother Heart Father chf Breast Cancer Sister Allergies: ALLERGIES Allergen Reactions Lyrica [Pregabalin] Other: See Comments Cough Current Meds: clopidogrel (PLAVIX) 75 mg tablet Take 75 mg by mouth once daily. cholecalciferol, vitamin D3, (VITAMIN D3 ORAL) Take 1 tablet by mouth once daily. POTASSIUM-99 ORAL Take 1 tablet by mouth once daily. Magnesium 200 mg tab Take 500 mg by mouth once daily. gabapentin (NEURONTIN) 300 mg capsule TAKE 3 CAPSULES 3 TIMES A DAY metFORMIN ER (GLUCOPHAGE XR) 750 mg 24 hr tablet Take 1 tablet by mouth twice daily with meals. simvastatin (ZOCOR) 20 mg tablet Take 1 tablet by mouth once daily. aspirin 81 mg chewable tablet Take 1 tablet by mouth once daily. blood sugar diagnostic (BLOOD GLUCOSE TEST) test strip Test blood sugar(s) 1 times daily. Dx: Other DM Code E11.42 Insulin: No. Patient uses One Touch Verio losartan (COZAAR) 50 mg tablet Take 1 tablet by mouth once daily. lamoTRIgine (LAMICTAL) 25 mg tablet Take 1 (more content not included)... [facility] 11-14-2022 History of Present illness Narrative Patient presents with: F/U 3 Month HPI: Lara Solano is a 76 year old male who presents to the office today for review of health conditions. 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 Able to drive locally. Peripheral neuropathy, moderate/severe, long standing, using supplements and massage with some benefit as well as current medications. Feet and lower leg symptoms. Mr. Solano has past history of diabetes. Since our last visit he denies excessive thirst or increased frequency of urination, chest pain or dyspnea , and low sugar/hypoglycemic reactions. Depression- no. Follows a diabetic diet most of the time. He is compliant with medication(s) and is tolerating med(s) without any side effects. He reports checking his glucose on a once a day schedule with sugars in the <120 range. Patient's last HgA1C was Hemoglobin A1C (%) Date Value 11/09/2022 7.2 08/03/2022 9.2 07/28/2021 7.0 05/22/2021 7.0 ) Last Ophthalmology exam was within the past 3 months Mr. Solano reports history of hyperlipidemia. Current therapy includes simvastatin (Zocor) 20 mg. Denies side effects of muscle weakness or achiness. His most recent lipid panels are reviewed. Cholesterol, Total (mg/dL) Date Value 08/03/2022 186 05/22/2021 188 HDL Cholesterol (mg/dL) Date Value 08/03/2022 37 05/22/2021 40 LDL Cholesterol (mg/dL) Date Value 08/03/2022 106 05/22/2021 101 Triglyceride (mg/dL) Date Value 08/03/2022 215 05/22/2021 233 Mr. Solano indicates a history of hypertension and states that he is feeling well and denies any symptoms referable to elevated blood pressure. Specifically denies headache, chest pain, palpitations, dyspnea, and peripheral edema. Patient denies any side effects of his medication(s) and is compliant with their regimen. Last 3 Encounter BP Readings: Date: BP: 11/13/2022 124/70 10/10/2022 122/58 09/05/2022 118/54 He watches his diet for sodium, low fat and low cholesterol most of the time. He does not check BP's generally. Lara gets minimal exercise. PAST MEDICAL HISTORY Diagnosis Date Benign neoplasm of colon Diverticulosis of colon (without mention of hemorrhage) 01/30/2008 Hyperlipemia Hypertension Internal hemorrhoids without mention of complication 01/30/2008 Nonspecific abnormal finding in stool contents Other chronic dermatitis due to solar radiation 04/23/2008 Other seborrheic keratosis 12/20/2008 Pancytopenia 11/28/2007 Personal history of other malignant neoplasm of skin 04/23/2008 PMH - PAST MEDICAL HISTORY OF neuropathy PRURIGO NODULARIS///LICHENIFICATION 12/20/2008 Scar condition and fibrosis of skin 04/23/2008 Seborrheic dermatitis, unspecified 04/23/2008 Type II or unspecified type diabetes mellitus without mention of complication, not stated as uncontrolled Umbilical hernia without mention of obstruction or gangrene 04/07/2009 Unspecified pruritic disorder 04/23/2008 PAST SURGICAL HISTORY Procedure Laterality Date CHOLECYSTECTOMY 07/18/1982 Cholecystectomy COLONOSCOPY FLX DX W/COLLJ SPEC WHEN PFRMD y Colonoscopy repeat in 10 years COLSC FLX W/RMVL OF TUMOR POLYP LESION SNARE TQ 01/30/08 EYE SURGERY HX LAPAROSCOPY SURG RPR INITIAL INGUINAL HERNIA 05-06-09 LEFT INGUINAL PAST SURGICAL HISTORY OF Skin lesion removed from nose RPR UMBILICAL HERNIA AGE 6 YRS/> INCARCERATED 05-06-09 Social History Tobacco Use Smoking status: Never Smokeless tobacco: Never Vaping Use Vaping Use: Never used Substance Use Topics Alcohol use: Yes Comment: beer Drug use: No FAMILY HISTORY Problem Relation Age of Onset Breast Cancer Mother Heart Father chf Breast Cancer Sister Allergies: ALLERGIES Allergen Reactions Lyrica [Pregabalin] Other: See Comments Cough Current Meds: clopidogrel (PLAVIX) 75 mg tablet Take 75 mg by mouth once daily. cholecalciferol, vitamin D3, (VITAMIN D3 ORAL) Take 1 tablet by mouth once daily. POTASSIUM-99 ORAL Take 1 tablet by mouth once daily. Magnesium 200 mg tab Take 500 mg by mouth once daily. gabapentin (NEURONTIN) 300 mg capsule TAKE 3 CAPSULES 3 TIMES A DAY metFORMIN ER (GLUCOPHAGE XR) 750 mg 24 hr tablet Take 1 tablet by mouth twice daily with meals. simvastatin (ZOCOR) 20 mg tablet Take 1 tablet by mouth once daily. aspirin 81 mg chewable tablet Take 1 tablet by mouth once daily. blood sugar diagnostic (BLOOD GLUCOSE TEST) test strip Test blood sugar(s) 1 times daily. Dx: Other DM Code E11.42 Insulin: No. Patient uses One Touch Verio losartan (COZAAR) 50 mg tablet Take 1 tablet by mouth once daily. lamoTRIgine (LAMICTAL) 25 mg tablet Take 1 tablet by mouth once daily. Clobetasol Propionate (TEMOVATE) 0.05 % external solution Apply 1 application to affected area once daily as needed (scalp psoriasis). cyanocobalamin (VITAMIN B-12) 1,000 mcg tab Take 1,000 mcg by mouth once daily. blood sugar diagnostic (ONETOUCH ULTRA TEST) test strip Test blood sugars once daily. DX: E11.42 Insulin: No COMPOUNDED PRESCRIPTION Diabetic shoes Dx: E11.65, DM2 Last office visit 05/20/18. ketoconazole (NIZORAL) 2 % shampoo Apply 1 application to affected area once daily as needed for Itching/Rash (scalp itching). 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 Dx: Other DM Code E11.42 Insulin: No blood sugar diagnostic (BLOOD GLUCOSE TEST) test strip Test blood sugar(s) 1 times daily. Dx: Other DM Code E11.42 Insulin: No Clobetasol Propionate 0.05 % external solution Apply to scalp psoriasis patches and plaques selectively qday to bid (once or twice a day) as needed and AVOID face, eyes, eyelids, and deep fold areas. Twmjhqtkapr-Yozuqtzhs-Kyi C-Mn (GLUCOSAMINE CHONDROITIN MAXSTR) 500-400 mg ORAL Cap Take one(1) tablet daily. Aspirin 81 mg ORAL Tab Take one(1) tablet daily. glimepiride (AMARYL) 4 mg tablet Take 1 tablet by mouth twice daily with meals. hydroCHLOROthiazide 12.5 mg capsule Take 1 capsule by mouth once daily. meloxicam (MOBIC) 7.5 mg tablet TAKE 1 TABLET BY MOUTH ONCE DAILY. NEEDED FOR FOOT PAIN, WITH FOOD. Review of Systems: The remainder of the review of systems is negative. PE: 11/13/22 1539 BP: 124/70 Pulse: 76 Resp: 16 Temp: 36.1 C (97 F) TempSrc: Left Tympanic Weight: 91.2 kg (201 lb) Gen: A&O, NAD, non-toxic appearing, Pleasant, cooperative HEENT: NT/AC, PERRLA, visually impaired right eye. nares clear and patent b/l, pharynx without erythema, exudate or lesions. Uvula midline. MMM Neck: supple, No cervical LAD, no thyromegaly, no carotid bruits CV: RRR, normal S1 and S2, no murmurs, no gallops, no rubs, Pulses 2+ and symmetric in UE and LE b/l Lungs: normal respiratory effort, CTA b/l, no wheezing or rhonchi or rales Abd: soft, overweight, NT, ND, +BS, no hepatosplenomegaly MS:gait stable but slowed Neuro: CN II-XII intact b/l, + neuropathy b/l feet Skin: warm, dry, intact, No rashes or lesions on exposed skin. Foot exam: Monofilament abnormal on right and left feet. No edema, normal pulses ASSESSMENT/PLAN: 1. Type 2 diabetes mellitus with diabetic polyneuropathy, without long-term current use of insulin (HCC) - ICD9: 250.60, 357.2, ICD10: E11.42 (primary diagnosis) - Controlled - Continue current medications - Blood glucose monitoring on a once daily schedule - Counseled on healthy diet and regular exercise - Discussed need for and benefit of weight loss. BMI 31.18 kg/(m^2) - HGB A1C - VITAMIN B12 BLOOD - CONSULT TO PODIATRY - ALBUMIN/CREAT RATIO RND UR 2. PAD (peripheral artery disease) ([facility]) - ICD9: 443.9, ICD10: I73.9 F/u with Store Worker for toenail trimming, f/u with Dr. Veliz vascular surgeon for carotid artery disease monitoring. - VITAMIN B12 BLOOD - CONSULT TO PODIATRY 3. Hypertension, essential - ICD9: 401.9, ICD10: I10 - good control - Continue current medication(s) - Encouraged dietary sodium restriction/DASH diet - Recommended regular aerobic exercise. - Recommend home blood pressure monitoring, to bring results in on next visit - Discussed need and benefit for weight loss. - Goal of BP <130/80 4. Mixed hyperlipidemia - ICD9: 272.2, ICD10: E78.2 - suboptimal control - Continue current medication. - Encouraged following a low fat, low cholesterol diet. - Discussed the benefits of regular aerobic exercise and weight loss. - LIPID PANEL BASIC 5. Other polyneuropathy - ICD9: 357.89, ICD10: G62.89 - chronic, slowly worsening - VITAMIN B12 BLOOD 6. Hypercalcemia - ICD9: 275.42, ICD10: E83.52 Recheck labs as ordered. - COMP METABOLIC PANEL - PTH INTACT BLD 7. Vitamin D deficiency - ICD9: 268.9, ICD10: E55.9 Continue supplement 8. Benign prostatic hyperplasia with lower urinary tract symptoms, symptom details unspecified - ICD9: 600.01, ICD10: N40.1 - stable 9. Thrombocytopenia (HCC) - ICD9: 287.5, ICD10: D69.6 Stable, has seen damage appraiser in the last 3 years Harlan Miller DO To ER if develops chest pain, shortness of breath, or severe worsening of symptoms. Discussed risks, benefits, alternatives, and potential side effects of medications. Patient expressed understanding and agreed with the plan. Harlan Miller DO [address] [place] [address] documented in this encounter [facility] 11-13-2022 Instructions Harlan Miller DO - 11/13/2022 4:[address] Cristina Maxwell [phone] Store Worker - call their office for appt to keep your toenails trimmed documented in this encounter [facility] 11-08-2022 Miscellaneous Notes Pt informed, verbalized understanding. Wilda Cheek Please let patient know lab orders place. Can have completed prior to office visit. Haylee Brady PA-C 11/07/2022 Pt is wondering if he needs to get bloodwork done before appt on 11/13/2022 documented in this encounter [facility] 10-10-2022 Note HNO ID: [id number] Author: Francine Vergara APRN.ANIMAL LABORATORY TECHNICIAN Service: ? Author Type: Nurse Practitioner Type: Progress Notes Filed: 10/10/2022 6:32 PM Note Text: Chief Complaint Patient presents with: Hospital Follow Up: Stroke, requesting note to return to work HPI Lara Solano is a 76 year old male who presents here today for Above Complaints. Today: Patient reports to office today for follow up from stroke related to right carotid blockage. He had surgical intervention, surgical incision healing well and he follows up with surgeon tomorrow. He took lipitor and plavix from what the hospital prescribed (already took asa prior), but back to zocor. He is done with the plavix, explained to be sure that the surgeon tomorrow wants him off for good or to continue. And that zocor dose is sufficient. Feeling good, denies shortness of breath and feels back to his normal energy levels. Just not as fast as I used to be . He'd like to return to work, he has been driving. 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 Past medical history, appointments, medications, allergies reviewed. Previous Medical History PAST MEDICAL HISTORY Diagnosis Date Benign neoplasm of colon Diverticulosis of colon (without mention of hemorrhage) 01/30/2008 Hyperlipemia Hypertension Internal hemorrhoids without mention of complication 01/30/2008 Nonspecific abnormal finding in stool contents Other chronic dermatitis due to solar radiation 04/23/2008 Other seborrheic keratosis 12/20/2008 Pancytopenia 11/28/2007 Personal history of other malignant neoplasm of skin 04/23/2008 PMH - PAST MEDICAL HISTORY OF neuropathy PRURIGO NODULARIS///LICHENIFICATION 12/20/2008 Scar condition and fibrosis of skin 04/23/2008 Seborrheic dermatitis, unspecified 04/23/2008 Type II or unspecified type diabetes mellitus without mention of complication, not stated as uncontrolled Umbilical hernia without mention of obstruction or gangrene 04/07/2009 Unspecified pruritic disorder 04/23/2008 Previous Surgical History PAST SURGICAL HISTORY Procedure Laterality Date CHOLECYSTECTOMY 07/18/1982 Cholecystectomy COLONOSCOPY FLX DX W/COLLJ SPEC WHEN PFRMD y Colonoscopy repeat in 10 years COLSC FLX W/RMVL OF TUMOR POLYP LESION SNARE TQ 01/30/08 EYE SURGERY HX LAPAROSCOPY SURG RPR INITIAL INGUINAL HERNIA 05-06-09 LEFT INGUINAL PAST SURGICAL HISTORY OF Skin lesion removed from nose RPR UMBILICAL HERNIA AGE 6 YRS/> INCARCERATED 05-06-09 Family History FAMILY HISTORY Problem Relation Age of Onset Breast Cancer Mother Heart Father chf Breast Cancer Sister Patient Allergies ALLERGIES Allergen Reactions Lyrica [Pregabalin] Other: See Comments Cough Current Medications Current Outpatient Medications on File Prior to Visit Medication Sig cholecalciferol, vitamin D3, (VITAMIN D3 ORAL) Take 1 tablet by mouth once daily. POTASSIUM-99 ORAL Take 1 tablet by mouth once daily. Magnesium 200 mg tab Take 500 mg by mouth once daily. gabapentin (NEURONTIN) 300 mg capsule TAKE 3 CAPSULES 3 TIMES A DAY glimepiride (AMARYL) 4 mg tablet Take 1 tablet by mouth twice daily with meals. hydroCHLOROthiazide (HYDRODIURIL, ESIDRIX) 12.5 mg capsule Take 1 capsule by mouth once daily. meloxicam (MOBIC) 7.5 mg tablet TAKE 1 TABLET BY MOUTH ONCE DAILY. NEEDED FOR FOOT PAIN, WITH FOOD. metFORMIN ER (GLUCOPHAGE XR) 750 mg 24 hr tablet Take 1 tablet by mouth twice daily with meals. simvastatin (ZOCOR) 20 mg tablet Take 1 tablet by mouth once daily. blood sugar diagnostic (BLOOD GLUCOSE TEST) test strip Test blood sugar(s) 1 times daily. Dx: Other DM Code E11.42 Insulin: No. Patient uses One Touch Verio losartan (COZAAR) 50 mg tablet Take 1 tablet by mouth once daily. lamoTRIgine (LAMICTAL) 25 mg tablet Take 1 tablet by mouth once daily. Clobetasol Propionate (TEMOVATE) 0.05 % external solution Apply 1 application to affected area once daily as needed (scalp psoriasis). cyanocobalamin (VITAMIN B-12) 1,000 mcg tab Take 1,000 mcg by mouth once daily. blood sugar diagnostic (ONETOUCH ULTRA TEST) test strip Test blood sugars once daily. DX: E11.42 Insulin: No COMPOUNDED PRESCRIPTION Diabetic shoes Dx: E11.65, DM2 Last office visit 05/20/18. ketoconazole (NIZORAL) 2 % shampoo Apply 1 application to affected area once daily as needed for Itching/Rash (scalp itching). 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 Dx: Other DM Code E11.42 Insulin: No blood sugar diagnostic (BLOOD GLUCOSE TEST) test strip Test blood sugar(s) 1 times daily. Dx: Other DM Code E11.42 Insulin: No Clobetasol Propionate 0.05 % external solution Apply to scalp psoriasis patches and plaqu (more content not included)... [facility] 10-10-2022 Instructions Radha Guzman - 10/10/2022 10:36 AM EDT Check with the surgeon on if you are to continue plavix or not and if the simvastatin dose youre on is sufficient Have the office send us notes following your appointment documented in this encounter [facility] 10-10-2022 History of Present illness Narrative Chief Complaint Patient presents with: Hospital Follow Up: Stroke, requesting note to return to work HPI Lara Solano is a 76 year old male who presents here today for Above Complaints. Today: Patient reports to office today for follow up from stroke related to right carotid blockage. He had surgical intervention, surgical incision healing well and he follows up with surgeon tomorrow. He took lipitor and plavix from what the hospital prescribed (already took asa prior), but back to zocor. He is done with the plavix, explained to be sure that the surgeon tomorrow wants him off for good or to continue. And that zocor dose is sufficient. Feeling good, denies shortness of breath and feels back to his normal energy levels. Just not as fast as I used to be . He'd like to return to work, he has been driving. 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 Past medical history, appointments, medications, allergies reviewed. Previous Medical History PAST MEDICAL HISTORY Diagnosis Date Benign neoplasm of colon Diverticulosis of colon (without mention of hemorrhage) 01/30/2008 Hyperlipemia Hypertension Internal hemorrhoids without mention of complication 01/30/2008 Nonspecific abnormal finding in stool contents Other chronic dermatitis due to solar radiation 04/23/2008 Other seborrheic keratosis 12/20/2008 Pancytopenia 11/28/2007 Personal history of other malignant neoplasm of skin 04/23/2008 PMH - PAST MEDICAL HISTORY OF neuropathy PRURIGO NODULARIS///LICHENIFICATION 12/20/2008 Scar condition and fibrosis of skin 04/23/2008 Seborrheic dermatitis, unspecified 04/23/2008 Type II or unspecified type diabetes mellitus without mention of complication, not stated as uncontrolled Umbilical hernia without mention of obstruction or gangrene 04/07/2009 Unspecified pruritic disorder 04/23/2008 Previous Surgical History PAST SURGICAL HISTORY Procedure Laterality Date CHOLECYSTECTOMY 07/18/1982 Cholecystectomy COLONOSCOPY FLX DX W/COLLJ SPEC WHEN PFRMD y Colonoscopy repeat in 10 years COLSC FLX W/RMVL OF TUMOR POLYP LESION SNARE TQ 01/30/08 EYE SURGERY HX LAPAROSCOPY SURG RPR INITIAL INGUINAL HERNIA 05-06-09 LEFT INGUINAL PAST SURGICAL HISTORY OF Skin lesion removed from nose RPR UMBILICAL HERNIA AGE 6 YRS/> INCARCERATED 05-06-09 Family History FAMILY HISTORY Problem Relation Age of Onset Breast Cancer Mother Heart Father chf Breast Cancer Sister Patient Allergies ALLERGIES Allergen Reactions Lyrica [Pregabalin] Other: See Comments Cough Current Medications Current Outpatient Medications on File Prior to Visit Medication Sig cholecalciferol, vitamin D3, (VITAMIN D3 ORAL) Take 1 tablet by mouth once daily. POTASSIUM-99 ORAL Take 1 tablet by mouth once daily. Magnesium 200 mg tab Take 500 mg by mouth once daily. gabapentin (NEURONTIN) 300 mg capsule TAKE 3 CAPSULES 3 TIMES A DAY glimepiride (AMARYL) 4 mg tablet Take 1 tablet by mouth twice daily with meals. hydroCHLOROthiazide (HYDRODIURIL, ESIDRIX) 12.5 mg capsule Take 1 capsule by mouth once daily. meloxicam (MOBIC) 7.5 mg tablet TAKE 1 TABLET BY MOUTH ONCE DAILY. NEEDED FOR FOOT PAIN, WITH FOOD. metFORMIN ER (GLUCOPHAGE XR) 750 mg 24 hr tablet Take 1 tablet by mouth twice daily with meals. simvastatin (ZOCOR) 20 mg tablet Take 1 tablet by mouth once daily. blood sugar diagnostic (BLOOD GLUCOSE TEST) test strip Test blood sugar(s) 1 times daily. Dx: Other DM Code E11.42 Insulin: No. Patient uses One Touch Verio losartan (COZAAR) 50 mg tablet Take 1 tablet by mouth once daily. lamoTRIgine (LAMICTAL) 25 mg tablet Take 1 tablet by mouth once daily. Clobetasol Propionate (TEMOVATE) 0.05 % external solution Apply 1 application to affected area once daily as needed (scalp psoriasis). cyanocobalamin (VITAMIN B-12) 1,000 mcg tab Take 1,000 mcg by mouth once daily. blood sugar diagnostic (ONETOUCH ULTRA TEST) test strip Test blood sugars once daily. DX: E11.42 Insulin: No COMPOUNDED PRESCRIPTION Diabetic shoes Dx: E11.65, DM2 Last office visit 05/20/18. ketoconazole (NIZORAL) 2 % shampoo Apply 1 application to affected area once daily as needed for Itching/Rash (scalp itching). 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 Dx: Other DM Code E11.42 Insulin: No blood sugar diagnostic (BLOOD GLUCOSE TEST) test strip Test blood sugar(s) 1 times daily. Dx: Other DM Code E11.42 Insulin: No Clobetasol Propionate 0.05 % external solution Apply to scalp psoriasis patches and plaques selectively qday to bid (once or twice a day) as needed and AVOID face, eyes, eyelids, and deep fold areas. Xxncvfqrvpn-Kmqowqxqw-Yxt C-Mn (GLUCOSAMINE CHONDROITIN MAXSTR) 500-400 mg ORAL Cap Take one(1) tablet daily. Aspirin 81 mg ORAL Tab Take one(1) tablet daily. clopidogrel (PLAVIX) 75 mg tablet Take 75 mg by mouth once daily. (Patient not taking: Reported on 10/10/2022) aspirin 81 mg chewable tablet Take 1 tablet by mouth once daily. No current facility-administered medications on file prior to visit. Social History Social History Tobacco Use Smoking status: Never Smokeless tobacco: Never Vaping Use Vaping Use: Never used Substance Use Topics Alcohol use: Yes Comment: beer Drug use: No Review of Symptoms REVIEW OF SYSTEMS See HPI EXAM: BP 122/58 (BP Site: Left Arm, BP Position: Sitting, BP Cuff Size: Regular Adult) Pulse 77 Resp 16 Wt 91.5 kg (201 lb 12.8 oz) SpO2 96% BMI 31.31 kg/m General Appearance: Well appearing, alert, in no acute distress, well-hydrated, well nourished.. Skin: Skin color, texture, turgor normal, no suspicious rashes or lesions, Incisions well healed to right neck Neck: Supple, no adenopathy; thyroid symmetric, normal size, no bruits. Lungs: Lungs clear to auscultation. No wheezing, rhonchi, rales.. Heart: RRR without murmur, gallop, or rubs. No ectopy. Neurologic: Gait normal. Reflexes normal and symmetric. Sensation grossly intact., PERRLA. Health Maintenance List DTAP,TDAP,TD(1 - Tdap) due on 04/30/2007 SHINGRIX VACCINE(3 of 3) due on 07/15/2019 COVID-19 VACCINE(4 - Booster for Pfizer series) due on 06/07/2021 URINE ALBUMIN:CREATININE RATIO due on 11/16/2021 DIABETIC FOOT EXAM due on 10/31/2022 HBA1C due on 11/01/2022 DILATED RETINAL EXAM due on 07/16/2023 LDL CHOLESTEROL due on 08/03/2023 ANNUAL PCP TEAM CHRONIC DISEASE VISIT due on 08/08/2023 BP CONTROLLED (<130/80) due on 09/06/2023 COLORECTAL CANCER SCREENING due on 04/11/2030 INFLUENZA Completed DEPRESSION ASSESSMENT Completed HEPATITIS C SCREENING Completed PNEUMOCOCCAL: 65+ Completed ADVANCE DIRECTIVE DISCUSSION Discontinued Data reviewed Previous records, office notes. ASSESSMENT/PLAN: 1. Cerebrovascular accident (CVA) due to stenosis of right carotid artery (HCC) - ICD9: 433.11, ICD10: I63.231 Continues with right central vision loss, to continue to closely follow with ophthalmology. No other neuro deficits, cleared to return to work. Francine Vergara APRN.JIGNA documented in this encounter [facility] 09-13-2022 Miscellaneous Notes Natalya with [facility] called and identified pt with name and date of . She requested a copy of pt's last HgbA1C. faxed to [phone]. Done. Vianey Noyola LPN documented in this encounter [facility] 09-05-2022 Note HNO ID: [id number] Author: Sera Bruce MD Service: ? Author Type: Physician Type: Progress Notes Filed: 09/05/2022 4:37 PM Note Text: [facility] [place] DEPARTMENT OF VASCULAR SURGERY VASCULAR SURGERY INITIAL CONSULT/ H+P SERVICE DATE: 09/05/2022 SERVICE TIME: 2:31 PM PRIMARY CARE PHYSICIAN: Harlan Miller DO REFERRING PROVIDER: Harlan Miller [address] [facility] [address] Consult requested for an opinion regarding the evaluation and treatment of the above. My final impression and recommendations will be communicated back to the requesting physician by way of the shared medical record or letter via US mail. CHIEF COMPLAINT/HISTORY OF PRESENT ILLNESS: Chief Complaint: Peripheral artery disease History of Present Illness: Lara Solano is a 76 year old male Patient presents for evaluation of exercise induced leg pain Patient reports calf tightness, cramping with standing or walking. Occurs at short distance or short period of standing. Must sit down to relieve symptoms and likes to walk bent over a shopping cart or walking on treadmill bent over the bars. Brief period of smoking while in the service. PAST MEDICAL/SURGICAL/FAMILY/SOCIAL HISTORY PAST MEDICAL HISTORY Diagnosis Date Benign neoplasm of colon Diverticulosis of colon (without mention of hemorrhage) 01/30/2008 Hyperlipemia Hypertension Internal hemorrhoids without mention of complication 01/30/2008 Nonspecific abnormal finding in stool contents Other chronic dermatitis due to solar radiation 04/23/2008 Other seborrheic keratosis 12/20/2008 Pancytopenia 11/28/2007 Personal history of other malignant neoplasm of skin 04/23/2008 PMH - PAST MEDICAL HISTORY OF neuropathy PRURIGO NODULARIS///LICHENIFICATION 12/20/2008 Scar condition and fibrosis of skin 04/23/2008 Seborrheic dermatitis, unspecified 04/23/2008 Type II or unspecified type diabetes mellitus without mention of complication, not stated as uncontrolled Umbilical hernia without mention of obstruction or gangrene 04/07/2009 Unspecified pruritic disorder 04/23/2008 PAST SURGICAL HISTORY Procedure Laterality Date CHOLECYSTECTOMY 07/18/1982 Cholecystectomy COLONOSCOPY FLX DX W/COLLJ SPEC WHEN PFRMD y Colonoscopy repeat in 10 years COLSC FLX W/RMVL OF TUMOR POLYP LESION SNARE TQ 01/30/08 EYE SURGERY HX LAPAROSCOPY SURG RPR INITIAL INGUINAL HERNIA 05-06-09 LEFT INGUINAL PAST SURGICAL HISTORY OF Skin lesion removed from nose RPR UMBILICAL HERNIA AGE 6 YRS/> INCARCERATED 05-06-09 FAMILY HISTORY Problem Relation Age of Onset Breast Cancer Mother Heart Father chf Breast Cancer Sister SOCIAL HISTORY Social History Tobacco Use Smoking status: Never Smokeless tobacco: Never Vaping Use Vaping Use: Never used Substance Use Topics Alcohol use: Yes Comment: beer Drug use: No MEDICATIONS/ALLERGIES Current Outpatient Medications Medication Sig Dispense Refill cholecalciferol, vitamin D3, (VITAMIN D3 ORAL) Take 1 tablet by mouth once daily. POTASSIUM-99 ORAL Take 1 tablet by mouth once daily. Magnesium 200 mg tab Take 500 mg by mouth once daily. gabapentin (NEURONTIN) 300 mg capsule TAKE 3 CAPSULES 3 TIMES A DAY 810 capsule 1 glimepiride (AMARYL) 4 mg tablet Take 1 tablet by mouth twice daily with meals. 180 tablet 1 hydroCHLOROthiazide (HYDRODIURIL, ESIDRIX) 12.5 mg capsule Take 1 capsule by mouth once daily. 90 capsule 1 meloxicam (MOBIC) 7.5 mg tablet TAKE 1 TABLET BY MOUTH ONCE DAILY. NEEDED FOR FOOT PAIN, WITH FOOD. 90 tablet 1 metFORMIN ER (GLUCOPHAGE XR) 750 mg 24 hr tablet Take 1 tablet by mouth twice daily with meals. 180 tablet 1 simvastatin (ZOCOR) 20 mg tablet Take 1 tablet by mouth once daily. 90 tablet 1 aspirin 81 mg chewable tablet Take 1 tablet by mouth once daily. 30 tablet 5 blood sugar diagnostic (BLOOD GLUCOSE TEST) test strip Test blood sugar(s) 1 times daily. Dx: Other DM Code E11.42 Insulin: No. Patient uses One Touch Verio 50 Strip 11 losartan (COZAAR) 50 mg tablet Take 1 tablet by mouth once daily. 90 tablet 3 lamoTRIgine (LAMICTAL) 25 mg tablet Take 1 tablet by mouth once daily. 90 tablet 3 Clobetasol Propionate (TEMOVATE) 0.05 % external solution Apply 1 application to affected area once daily as needed (scalp psoriasis). 50 mL 1 cyanocobalamin (VITAMIN B-12) 1,000 mcg tab Take 1,000 mcg by mouth once daily. blood sugar diagnostic (ONETOUCH ULTRA TEST) test strip Test blood sugars once daily. DX: E11.42 Insulin: No 100 Strip 3 COMPOUNDED PRESCRIPTION Diabetic shoes Dx: E11.65, DM2 Last office visit 05/20/18. 1 Each 0 ketoconazole (NIZORAL) 2 % shampoo Apply 1 application to affected area once daily as needed for Itching/Rash (scalp itching). 200 mL 3 Blood-Glucose Meter monitoring kit Glucose Meter of Choice - Kit - Dx: Other DM Code E11.42 Insulin No 1 Each 0 metroNIDAZOLE 0.75 % cream APPLY TO AFFECTED AREAS OF RO (more content not included)... [facility] 09-05-2022 History of Present illness Narrative Images from the original note were not included. [facility] [place] DEPARTMENT OF VASCULAR SURGERY VASCULAR SURGERY INITIAL CONSULT/ H+P SERVICE DATE: 09/05/2022 SERVICE TIME: 2:31 PM PRIMARY CARE PHYSICIAN: Harlan Miller DO REFERRING PROVIDER: Harlan Miller [address] [facility] [address] Consult requested for an opinion regarding the evaluation and treatment of the above. My final impression and recommendations will be communicated back to the requesting physician by way of the shared medical record or letter via US mail. CHIEF COMPLAINT/HISTORY OF PRESENT ILLNESS: Chief Complaint: Peripheral artery disease History of Present Illness: Lara Solano is a 76 year old male Patient presents for evaluation of exercise induced leg pain Patient reports calf tightness, cramping with standing or walking. Occurs at short distance or short period of standing. Must sit down to relieve symptoms and likes to walk bent over a shopping cart or walking on treadmill bent over the bars. Brief period of smoking while in the service. PAST MEDICAL/SURGICAL/FAMILY/SOCIAL HISTORY PAST MEDICAL HISTORY Diagnosis Date Benign neoplasm of colon Diverticulosis of colon (without mention of hemorrhage) 01/30/2008 Hyperlipemia Hypertension Internal hemorrhoids without mention of complication 01/30/2008 Nonspecific abnormal finding in stool contents Other chronic dermatitis due to solar radiation 04/23/2008 Other seborrheic keratosis 12/20/2008 Pancytopenia 11/28/2007 Personal history of other malignant neoplasm of skin 04/23/2008 PMH - PAST MEDICAL HISTORY OF neuropathy PRURIGO NODULARIS///LICHENIFICATION 12/20/2008 Scar condition and fibrosis of skin 04/23/2008 Seborrheic dermatitis, unspecified 04/23/2008 Type II or unspecified type diabetes mellitus without mention of complication, not stated as uncontrolled Umbilical hernia without mention of obstruction or gangrene 04/07/2009 Unspecified pruritic disorder 04/23/2008 PAST SURGICAL HISTORY Procedure Laterality Date CHOLECYSTECTOMY 07/18/1982 Cholecystectomy COLONOSCOPY FLX DX W/COLLJ SPEC WHEN PFRMD y Colonoscopy repeat in 10 years COLSC FLX W/RMVL OF TUMOR POLYP LESION SNARE TQ 01/30/08 EYE SURGERY HX LAPAROSCOPY SURG RPR INITIAL INGUINAL HERNIA 05-06-09 LEFT INGUINAL PAST SURGICAL HISTORY OF Skin lesion removed from nose RPR UMBILICAL HERNIA AGE 6 YRS/> INCARCERATED 05-06-09 FAMILY HISTORY Problem Relation Age of Onset Breast Cancer Mother Heart Father chf Breast Cancer Sister SOCIAL HISTORY Social History Tobacco Use Smoking status: Never Smokeless tobacco: Never Vaping Use Vaping Use: Never used Substance Use Topics Alcohol use: Yes Comment: beer Drug use: No MEDICATIONS/ALLERGIES Current Outpatient Medications Medication Sig Dispense Refill cholecalciferol, vitamin D3, (VITAMIN D3 ORAL) Take 1 tablet by mouth once daily. POTASSIUM-99 ORAL Take 1 tablet by mouth once daily. Magnesium 200 mg tab Take 500 mg by mouth once daily. gabapentin (NEURONTIN) 300 mg capsule TAKE 3 CAPSULES 3 TIMES A DAY 810 capsule 1 glimepiride (AMARYL) 4 mg tablet Take 1 tablet by mouth twice daily with meals. 180 tablet 1 hydroCHLOROthiazide (HYDRODIURIL, ESIDRIX) 12.5 mg capsule Take 1 capsule by mouth once daily. 90 capsule 1 meloxicam (MOBIC) 7.5 mg tablet TAKE 1 TABLET BY MOUTH ONCE DAILY. NEEDED FOR FOOT PAIN, WITH FOOD. 90 tablet 1 metFORMIN ER (GLUCOPHAGE XR) 750 mg 24 hr tablet Take 1 tablet by mouth twice daily with meals. 180 tablet 1 simvastatin (ZOCOR) 20 mg tablet Take 1 tablet by mouth once daily. 90 tablet 1 aspirin 81 mg chewable tablet Take 1 tablet by mouth once daily. 30 tablet 5 blood sugar diagnostic (BLOOD GLUCOSE TEST) test strip Test blood sugar(s) 1 times daily. Dx: Other DM Code E11.42 Insulin: No. Patient uses One Touch Verio 50 Strip 11 losartan (COZAAR) 50 mg tablet Take 1 tablet by mouth once daily. 90 tablet 3 lamoTRIgine (LAMICTAL) 25 mg tablet Take 1 tablet by mouth once daily. 90 tablet 3 Clobetasol Propionate (TEMOVATE) 0.05 % external solution Apply 1 application to affected area once daily as needed (scalp psoriasis). 50 mL 1 cyanocobalamin (VITAMIN B-12) 1,000 mcg tab Take 1,000 mcg by mouth once daily. blood sugar diagnostic (ONETOUCH ULTRA TEST) test strip Test blood sugars once daily. DX: E11.42 Insulin: No 100 Strip 3 COMPOUNDED PRESCRIPTION Diabetic shoes Dx: E11.65, DM2 Last office visit 05/20/18. 1 Each 0 ketoconazole (NIZORAL) 2 % shampoo Apply 1 application to affected area once daily as needed for Itching/Rash (scalp itching). 200 mL 3 Blood-Glucose Meter monitoring kit Glucose Meter of Choice - Kit - Dx: Other DM Code E11.42 Insulin No 1 Each 0 metroNIDAZOLE 0.75 % cream APPLY TO AFFECTED AREAS OF ROSACEA ON FACE QD -BID TOLERATED AND DIRECTED 1 Tube 11 Lancets lancets Test blood sugar(s) 1 times daily. Dx: Other DM Code E11.42 Insulin: No 100 Each 11 blood sugar diagnostic (BLOOD GLUCOSE TEST) test strip Test blood sugar(s) 1 times daily. Dx: Other DM Code E11.42 Insulin: No 50 Strip 11 Clobetasol Propionate 0.05 % external solution Apply to scalp psoriasis patches and plaques selectively qday to bid (once or twice a day) as needed and AVOID face, eyes, eyelids, and deep fold areas. 60 mL 3 Uzdwvfztrdn-Rfvmftovu-Xpn C-Mn (GLUCOSAMINE CHONDROITIN MAXSTR) 500-400 mg ORAL Cap Take one(1) tablet daily. 0 Aspirin 81 mg ORAL Tab Take one(1) tablet daily. 0 No current facility-administered medications for this visit. ALLERGIES Allergen Reactions Lyrica [Pregabalin] Other: See Comments Cough REVIEW OF SYSTEMS 10 point review of symptoms was non contributory to current problem PHYSICAL EXAM General: Alert and oriented, No acute distress, Healthy appearance, good historian. Integumentary: Normal color, no rash, no lesions. HEENT: EOM, pupils equal and round, no lesions or deformities. Cardiovascular: Normal S1 & S2, no murmurs Pulse regular. Lungs: Normal breath sounds, no wheezes or crackles., No chest deformities or chest wall tenderness. Abdomen: Soft, non-tender, no rigidity., No masses. Extremities: No deformity, joint swelling or clubbing. Neurological: Normal cognition and motor skills. Normal affect. No weakness or sensory deficit. Pulse exam: Right- Normal femoral, wide popliteal and weak pedal Left- Normal femoral, wide popliteal and weak pedal Diagnostic tests reviewed for today's visit: PVR, neck CT scan ASSESSMENT Mild peripheral artery disease Carotid artery atherosclerosis on plain CT Wide pop pulses 4 months of smoking Exercise induced leg pain is likely spinal stenosis PLAN/RECOMMENDATIONS Carotid duplex scan Arterial ultrasound- evaluate for popliteal aneurysm Abdominal aortic aneurysm screen Further recommendations to follow Discussed the options for management with the patient. All questions answered. Patient reflected understanding and agrees to the plan as outlined. documented in this encounter [facility] 08-23-2022 Miscellaneous Notes Spoke with patient in detail about results, referral and exercise routine. Patient wrote everything down and verbalized understanding. He had no questions at this time. Sending to scheduled for vascular referral. Lelia Miller Please inform patient that his BRANDT/ PVR show evidence of peripheral artery disease changes occurring. I Would like him to see vascular specialist to see if any intervention is needed. Otherwise I need him to work on more routine exercise with walking or riding recumbant bike because this helps PAD Harlan Miller DO Patient calling for results of PVR testing done on 08/15/22. Suzie Carlisle RN documented in this encounter [facility] 08-14-2022 Miscellaneous Notes Pt. informed. 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 Recommend increasing water and sour drink in diet such as lemonade to help pass this small stone Harlan Miller DO The CT of his neck looks good, normal, no masses of concern. Francine Vergara APRN.JIGNA Pt called in asking for provider to review CT results and call him back. Patient calls and is asking about results from CT scan of neck. Please review and advise, Huma Cruz RN documented in this encounter [facility] 08-09-2022 Note HNO ID: [id number] Author: RT Windy(R) Service: ? 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 FALL SCREENING: Has the patient had 2 falls in the last year or 1 fall with injury or currently using an Ambulatory Assistive Device (Walker, Cane, Wheelchair, Crutches, etc.)? No PATIENT GENDER DATA: Male PATIENT RELEVANT IMPLANT DATA REVIEWED: Yes RADIOLOGY DEPARTMENT: CT; Exam(s) Completed: Neck PERIPHERAL IV DATA: Not applicable SIGNED BY: RT Lorraine(R) August 09, 2022 4:12 PM [facility] 02-01-2023 Note HNO ID: [id number] Author: Harlan Miller, DO Service: ? Author Type: Physician Type: Progress Notes Filed: 08/08/2022 8:54 PM Note Text: Patient presents with: 6 Month Exam HPI: Lara Solano is a 76 year old male who presents to the office today for review of health conditions. Concerns today: Glucose levels are slightly elevated in the 130s. Admits he has been eating more bananas, also eats berries. Skin lesions, wanting to have skin checked due to concerns of some rough spots he has felt. Hx of actinic keratoses and skin cancer in the past. Lump, states he noticed it a few weeks ago when shaving, left side of his neck, no pain, not going away. No fevers or chills. Does have fatigue. + weight gain, no sweats or weight loss Cold intolerance, feels his feet after getting colder, no obvious rashes or skin color changes. No swelling. + neuropathy. Does get muscle cramping feeling b/l calves comes and goes. Mr. Solano has past history of diabetes. Since our last visit he denies excessive thirst or increased frequency of urination, chest pain or dyspnea , new or unusual visual symptoms, and low sugar/hypoglycemic reactions. Depression- no. Follows a diabetic diet some of the time- has been eating more fruits and carbohydrates recently . He is compliant with medication(s) and is tolerating med(s) without any side effects. He reports checking his glucose on a infrequent to not at all basis schedule with sugars in the <200 range. Patient's last HgA1C was Hemoglobin A1C (%) Date Value 08/03/2022 9.2 01/25/2022 7.2 07/28/2021 7.0 05/22/2021 7.0 ) Last Ophthalmology exam was within the past 12 months Mr. Solano reports history of hyperlipidemia. Current therapy includes simvastatin (Zocor) 20 mg. Denies side effects of muscle weakness or achiness. His most recent lipid panels are reviewed. Cholesterol, Total (mg/dL) Date Value 08/03/2022 186 05/22/2021 188 HDL Cholesterol (mg/dL) Date Value 08/03/2022 37 05/22/2021 40 LDL Cholesterol (mg/dL) Date Value 08/03/2022 106 05/22/2021 101 Triglyceride (mg/dL) Date Value 08/03/2022 215 05/22/2021 233 Mr. Solano indicates a history of hypertension and states that he is feeling well and denies any symptoms referable to elevated blood pressure. Specifically denies headache, chest pain, palpitations, dyspnea, and peripheral edema. Patient denies any side effects of his medication(s) and is compliant with their regimen. Last 3 Encounter BP Readings: Date: BP: 08/08/2022 120/60 01/31/2022 122/70 10/31/2021 138/80 He watches his diet for sodium, low fat and low cholesterol some of the time. He does not check BP's generally. Lara gets minimal exercise. PAST MEDICAL HISTORY Diagnosis Date Benign neoplasm of colon Diverticulosis of colon (without mention of hemorrhage) 01/30/2008 Hyperlipemia Hypertension Internal hemorrhoids without mention of complication 01/30/2008 Nonspecific abnormal finding in stool contents Other chronic dermatitis due to solar radiation 04/23/2008 Other seborrheic keratosis 12/20/2008 Pancytopenia 11/28/2007 Personal history of other malignant neoplasm of skin 04/23/2008 PMH - PAST MEDICAL HISTORY OF neuropathy PRURIGO NODULARIS///LICHENIFICATION 12/20/2008 Scar condition and fibrosis of skin 04/23/2008 Seborrheic dermatitis, unspecified 04/23/2008 Type II or unspecified type diabetes mellitus without mention of complication, not stated as uncontrolled Umbilical hernia without mention of obstruction or gangrene 04/07/2009 Unspecified pruritic disorder 04/23/2008 PAST SURGICAL HISTORY Procedure Laterality Date CHOLECYSTECTOMY 07/18/1982 Cholecystectomy COLONOSCOPY FLX DX W/COLLJ SPEC WHEN PFRMD y Colonoscopy repeat in 10 years COLSC FLX W/RMVL OF TUMOR POLYP LESION SNARE TQ 01/30/08 EYE SURGERY HX LAPAROSCOPY SURG RPR INITIAL INGUINAL HERNIA 05-06-09 LEFT INGUINAL PAST SURGICAL HISTORY OF Skin lesion removed from nose RPR UMBILICAL HERNIA AGE 6 YRS/> INCARCERATED 05-06-09 Social History Tobacco Use Smoking status: Never Smokeless tobacco: Never Vaping Use Vaping Use: Never used Substance Use Topics Alcohol use: Yes Comment: beer Drug use: No FAMILY HISTORY Problem Relation Age of Onset Breast Cancer Mother Heart Father chf Breast Cancer Sister Allergies: ALLERGIES Allergen Reactions Lyrica [Pregabalin] Other: See Comments Cough Current Meds: glimepiride (AMARYL) 4 mg tablet Take 1 tablet by mouth twice daily with meals. hydroCHLOROthiazide (HYDRODIURIL, ESIDRIX) 12.5 mg capsule Take 1 capsule by mouth once daily. meloxicam (MOBIC) 7.5 mg tablet TAKE 1 TABLET BY MOUTH ONCE DAILY. NEEDED FOR FOOT PAIN, WITH FOOD. metFORMIN ER (GLUCOPHAGE XR) 750 mg 24 hr tablet Take 1 tablet by mouth twice daily with meals. simvastatin (ZOCOR) 20 mg tablet Take 1 tablet by mouth once daily. aspirin 81 mg chewable (more content not included)... [facility] 08-08-2022 History of Present illness Narrative Patient presents with: 6 Month Exam HPI: Lara Solano is a 76 year old male who presents to the office today for review of health conditions. Concerns today: Glucose levels are slightly elevated in the 130s. Admits he has been eating more bananas, also eats berries. Skin lesions, wanting to have skin checked due to concerns of some rough spots he has felt. Hx of actinic keratoses and skin cancer in the past. Lump, states he noticed it a few weeks ago when shaving, left side of his neck, no pain, not going away. No fevers or chills. Does have fatigue. + weight gain, no sweats or weight loss Cold intolerance, feels his feet after getting colder, no obvious rashes or skin color changes. No swelling. + neuropathy. Does get muscle cramping feeling b/l calves comes and goes. Mr. Solano has past history of diabetes. Since our last visit he denies excessive thirst or increased frequency of urination, chest pain or dyspnea , new or unusual visual symptoms, and low sugar/hypoglycemic reactions. Depression- no. Follows a diabetic diet some of the time- has been eating more fruits and carbohydrates recently . He is compliant with medication(s) and is tolerating med(s) without any side effects. He reports checking his glucose on a infrequent to not at all basis schedule with sugars in the <200 range. Patient's last HgA1C was Hemoglobin A1C (%) Date Value 08/03/2022 9.2 01/25/2022 7.2 07/28/2021 7.0 05/22/2021 7.0 ) Last Ophthalmology exam was within the past 12 months Mr. Solano reports history of hyperlipidemia. Current therapy includes simvastatin (Zocor) 20 mg. Denies side effects of muscle weakness or achiness. His most recent lipid panels are reviewed. Cholesterol, Total (mg/dL) Date Value 08/03/2022 186 05/22/2021 188 HDL Cholesterol (mg/dL) Date Value 08/03/2022 37 05/22/2021 40 LDL Cholesterol (mg/dL) Date Value 08/03/2022 106 05/22/2021 101 Triglyceride (mg/dL) Date Value 08/03/2022 215 05/22/2021 233 Mr. Solano indicates a history of hypertension and states that he is feeling well and denies any symptoms referable to elevated blood pressure. Specifically denies headache, chest pain, palpitations, dyspnea, and peripheral edema. Patient denies any side effects of his medication(s) and is compliant with their regimen. Last 3 Encounter BP Readings: Date: BP: 08/08/2022 120/60 01/31/2022 122/70 10/31/2021 138/80 He watches his diet for sodium, low fat and low cholesterol some of the time. He does not check BP's generally. Lara gets minimal exercise. PAST MEDICAL HISTORY Diagnosis Date Benign neoplasm of colon Diverticulosis of colon (without mention of hemorrhage) 01/30/2008 Hyperlipemia Hypertension Internal hemorrhoids without mention of complication 01/30/2008 Nonspecific abnormal finding in stool contents Other chronic dermatitis due to solar radiation 04/23/2008 Other seborrheic keratosis 12/20/2008 Pancytopenia 11/28/2007 Personal history of other malignant neoplasm of skin 04/23/2008 PMH - PAST MEDICAL HISTORY OF neuropathy PRURIGO NODULARIS///LICHENIFICATION 12/20/2008 Scar condition and fibrosis of skin 04/23/2008 Seborrheic dermatitis, unspecified 04/23/2008 Type II or unspecified type diabetes mellitus without mention of complication, not stated as uncontrolled Umbilical hernia without mention of obstruction or gangrene 04/07/2009 Unspecified pruritic disorder 04/23/2008 PAST SURGICAL HISTORY Procedure Laterality Date CHOLECYSTECTOMY 07/18/1982 Cholecystectomy COLONOSCOPY FLX DX W/COLLJ SPEC WHEN PFRMD y Colonoscopy repeat in 10 years COLSC FLX W/RMVL OF TUMOR POLYP LESION SNARE TQ 01/30/08 EYE SURGERY HX LAPAROSCOPY SURG RPR INITIAL INGUINAL HERNIA 05-06-09 LEFT INGUINAL PAST SURGICAL HISTORY OF Skin lesion removed from nose RPR UMBILICAL HERNIA AGE 6 YRS/> INCARCERATED 05-06-09 Social History Tobacco Use Smoking status: Never Smokeless tobacco: Never Vaping Use Vaping Use: Never used Substance Use Topics Alcohol use: Yes Comment: beer Drug use: No FAMILY HISTORY Problem Relation Age of Onset Breast Cancer Mother Heart Father chf Breast Cancer Sister Allergies: ALLERGIES Allergen Reactions Lyrica [Pregabalin] Other: See Comments Cough Current Meds: glimepiride (AMARYL) 4 mg tablet Take 1 tablet by mouth twice daily with meals. hydroCHLOROthiazide (HYDRODIURIL, ESIDRIX) 12.5 mg capsule Take 1 capsule by mouth once daily. meloxicam (MOBIC) 7.5 mg tablet TAKE 1 TABLET BY MOUTH ONCE DAILY. NEEDED FOR FOOT PAIN, WITH FOOD. metFORMIN ER (GLUCOPHAGE XR) 750 mg 24 hr tablet Take 1 tablet by mouth twice daily with meals. simvastatin (ZOCOR) 20 mg tablet Take 1 tablet by mouth once daily. aspirin 81 mg chewable tablet Take 1 tablet by mouth once daily. blood sugar diagnostic (BLOOD GLUCOSE TEST) test strip Test blood sugar(s) 1 times daily. Dx: Other DM Code E11.42 Insulin: No. Patient uses One Touch Verio losartan (COZAAR) 50 mg tablet Take 1 tablet by mouth once daily. lamoTRIgine (LAMICTAL) 25 mg tablet Take 1 tablet by mouth once daily. Clobetasol Propionate (TEMOVATE) 0.05 % external solution Apply 1 application to affected area once daily as needed (scalp psoriasis). cyanocobalamin (VITAMIN B-12) 1,000 mcg tab Take 1,000 mcg by mouth once daily. blood sugar diagnostic (ONETOUCH ULTRA TEST) test strip Test blood sugars once daily. DX: E11.42 Insulin: No COMPOUNDED PRESCRIPTION Diabetic shoes Dx: E11.65, DM2 Last office visit 05/20/18. ketoconazole (NIZORAL) 2 % shampoo Apply 1 application to affected area once daily as needed for Itching/Rash (scalp itching). 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 Dx: Other DM Code E11.42 Insulin: No blood sugar diagnostic (BLOOD GLUCOSE TEST) test strip Test blood sugar(s) 1 times daily. Dx: Other DM Code E11.42 Insulin: No Clobetasol Propionate 0.05 % external solution Apply to scalp psoriasis patches and plaques selectively qday to bid (once or twice a day) as needed and AVOID face, eyes, eyelids, and deep fold areas. Spqujuffojm-Olfxiouqp-Mdh C-Mn (GLUCOSAMINE CHONDROITIN MAXSTR) 500-400 mg ORAL Cap Take one(1) tablet daily. Aspirin 81 mg ORAL Tab Take one(1) tablet daily. gabapentin (NEURONTIN) 300 mg capsule TAKE 3 CAPSULES 3 TIMES A DAY Review of Systems: The remainder of the review of systems is negative. PE: 08/08/22 1358 BP: 120/60 Pulse: 80 Resp: 16 Temp: 36.1 C (97 F) TempSrc: Right Tympanic Weight: 93.4 kg (206 lb) Gen: A&O, NAD, non-toxic appearing, Pleasant, cooperative HEENT: NT/AC, PERRLA, EOMs intact b/l, nares clear and patent b/l, pharynx without erythema, exudate or lesions. Uvula midline. MMM, EACs without erythema or debris. TMs pearly gaona with intact landmarks b/l. Neck: supple, + mass on left angle of jaw and under mandible area without pain at about 1 inch size without any surrounding erythema or ulceration of skin, no thyromegaly, no carotid bruits CV: RRR, normal S1 and S2, no murmurs, no gallops, no rubs Lungs: normal respiratory effort, CTA b/l, no wheezing or rhonchi or rales Abd: soft, NT, ND, +BS, no hepatosplenomegaly MS: FROM all 4 extremities Neuro: CN II-XII intact b/l, strength 5/5 b/l UE and LE, DTRs 2/4 UE and LE, sensation intact. Skin: warm, dry, intact, actinic keratosis x 1 on right helix of ear, actinic keratosis x 1 on left helix of ear, actinic keratosis x 1 on left druze, actinic keratosis x 1 on right superior to the eyebrow, actinic keratosis x 2 on right forearm Foot exam: Monofilament abnormal on right and left feet. Pulse with questionably diminished left and right dorsalis pedis and posterior tibial ASSESSMENT/PLAN: 1. Type 2 diabetes mellitus with diabetic polyneuropathy, without long-term current use of insulin (HCC) - ICD9: 250.60, 357.2, ICD10: E11.42 (primary diagnosis) poorly controlled worsening control Poor adherence to plan of care. 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 - BP goal of <130/80 - LDL goal of <100 2. Decreased pulses in feet - ICD9: 785.9, ICD10: R09.89 - check testing as ordered, ? Secondary to PAD starting vs. Diabetes vs. Neuropathy which he has - PVR ANK PRESS [facility] 3. Mass of left side of neck - ICD9: 784.2, ICD10: R22.1 - need for CT soft tissue ROBINA to help determine cause of mass, overall is asymptomatic. - CT NECK SOFT TISSUE WO IVCON 4. Actinic keratosis - ICD9: 702.0, ICD10: L57.0 - treated x above with cryotherapy, tolerated well, no complications, he is aware of wound care. 5. Cold intolerance - ICD9: 780.99, ICD10: R68.89 - labs as ordered. 6. Muscle cramp - ICD9: 729.82, ICD10: R25.2 Trial of magnesium supplement, PVR/BRANDT as ordered. 7. Hypertension, essential - ICD9: 401.9, ICD10: I10 - good control - Continue current medication(s) - Encouraged dietary sodium restriction/DASH diet - Recommended regular aerobic exercise. - Recommend home blood pressure monitoring, to bring results in on next visit - Goal of BP <130/80 8. Mixed hyperlipidemia - ICD9: 272.2, ICD10: E78.2 - to be determined upon return of lab results - Encouraged following a low fat, low cholesterol diet. - Discussed the benefits of regular aerobic exercise and weight loss. 9. Other polyneuropathy - ICD9: 357.89, ICD10: G62.89 Chronic, stable Harlan Miller DO To ER if develops chest pain, shortness of breath, or severe worsening of symptoms. Discussed risks, benefits, alternatives, and potential side effects of medications. Patient expressed understanding and agreed with the plan. Harlan Miller DO [address] [place] [address] documented in this encounter [facility] 02-06-2022 Miscellaneous Notes Pt's informed. Mandy Monroy LPN Please let Lara know that his magnesium levels are low. I'd like him to start taking a daily magnesium supplement of 500-600mg. Francine Vergara APRN.CNP documented in this encounter [facility] 01-31-2022 Instructions Francine Vergara APRN.CNP - 01/31/2022 2:18 PM EDT Make sure you're getting plenty of water. Calf stretches. If this doesn't improve, we can think about physical therapy. You have labs ordered to have completed prior to your appointment in 6 months. documented in this encounter [facility] 01-31-2022 History of Present illness Narrative Chief Complaint Patient presents with: Diabetes Leg Cramps: calf pain x couple months HPI Lara Solano is a 76 year old male who presents here today for Above Complaints. Today: Pain in both calves for the past couple months, is when he is walking. Past medical history, appointments, medications, allergies reviewed. Previous Medical History PAST MEDICAL HISTORY Diagnosis Date Benign neoplasm of colon Diverticulosis of colon (without mention of hemorrhage) 01/30/2008 Hyperlipemia Hypertension Internal hemorrhoids without mention of complication 01/30/2008 Nonspecific abnormal finding in stool contents Other chronic dermatitis due to solar radiation 04/23/2008 Other seborrheic keratosis 12/20/2008 Pancytopenia 11/28/2007 Personal history of other malignant neoplasm of skin 04/23/2008 PMH - PAST MEDICAL HISTORY OF neuropathy PRURIGO NODULARIS///LICHENIFICATION 12/20/2008 Scar condition and fibrosis of skin 04/23/2008 Seborrheic dermatitis, unspecified 04/23/2008 Type II or unspecified type diabetes mellitus without mention of complication, not stated as uncontrolled Umbilical hernia without mention of obstruction or gangrene 04/07/2009 Unspecified pruritic disorder 04/23/2008 Previous Surgical History PAST SURGICAL HISTORY Procedure Laterality Date CHOLECYSTECTOMY 07/18/1982 Cholecystectomy COLONOSCOPY FLX DX W/COLLJ SPEC WHEN PFRMD y Colonoscopy repeat in 10 years COLSC FLX W/RMVL OF TUMOR POLYP LESION SNARE TQ 01/30/08 EYE SURGERY HX LAPAROSCOPY SURG RPR INITIAL INGUINAL HERNIA 05-06-09 LEFT INGUINAL PAST SURGICAL HISTORY OF Skin lesion removed from nose RPR UMBILICAL HERNIA AGE 6 YRS/> INCARCERATED 05-06-09 Family History FAMILY HISTORY Problem Relation Age of Onset Breast Cancer Mother Heart Father chf Breast Cancer Sister Patient Allergies ALLERGIES Allergen Reactions Lyrica [Pregabalin] Other: See Comments Cough Current Medications Current Outpatient Medications on File Prior to Visit Medication Sig aspirin 81 mg chewable tablet Take 1 tablet by mouth once daily. blood sugar diagnostic (BLOOD GLUCOSE TEST) test strip Test blood sugar(s) 1 times daily. Dx: Other DM Code E11.42 Insulin: No. Patient uses One Touch Verio simvastatin (ZOCOR) 20 mg tablet Take 1 tablet by mouth once daily. metFORMIN ER (GLUCOPHAGE XR) 750 mg 24 hr tablet Take 1 tablet by mouth twice daily with meals. meloxicam (MOBIC) 7.5 mg tablet TAKE 1 TABLET BY MOUTH ONCE DAILY. NEEDED FOR FOOT PAIN, WITH FOOD. losartan (COZAAR) 50 mg tablet Take 1 tablet by mouth once daily. lamoTRIgine (LAMICTAL) 25 mg tablet Take 1 tablet by mouth once daily. hydroCHLOROthiazide (HYDRODIURIL, ESIDRIX) 12.5 mg capsule Take 1 capsule by mouth once daily. gabapentin (NEURONTIN) 300 mg capsule TAKE 3 CAPSULES 3 TIMES A DAY glimepiride (AMARYL) 4 mg tablet Take 1 tablet by mouth twice daily with meals. Clobetasol Propionate (TEMOVATE) 0.05 % external solution Apply 1 application to affected area once daily as needed (scalp psoriasis). cyanocobalamin (VITAMIN B-12) 1,000 mcg tab Take 1,000 mcg by mouth once daily. blood sugar diagnostic (ONETOUCH ULTRA TEST) test strip Test blood sugars once daily. DX: E11.42 Insulin: No COMPOUNDED PRESCRIPTION Diabetic shoes Dx: E11.65, DM2 Last office visit 05/20/18. ketoconazole (NIZORAL) 2 % shampoo Apply 1 application to affected area once daily as needed for Itching/Rash (scalp itching). 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 Dx: Other DM Code E11.42 Insulin: No blood sugar diagnostic (BLOOD GLUCOSE TEST) test strip Test blood sugar(s) 1 times daily. Dx: Other DM Code E11.42 Insulin: No Clobetasol Propionate 0.05 % external solution Apply to scalp psoriasis patches and plaques selectively qday to bid (once or twice a day) as needed and AVOID face, eyes, eyelids, and deep fold areas. Ygqtmegirrn-Tpzhpekrj-Wjc C-Mn (GLUCOSAMINE CHONDROITIN MAXSTR) 500-400 mg ORAL Cap Take one(1) tablet daily. Aspirin 81 mg ORAL Tab Take one(1) tablet daily. No current facility-administered medications on file prior to visit. Social History Social History Tobacco Use Smoking status: Never Smoker Smokeless tobacco: Never Used Vaping Use Vaping Use: Never used Substance Use Topics Alcohol use: Yes Comment: beer Drug use: No Review of Symptoms REVIEW OF SYSTEMS see HPI, otherwise negative EXAM: BP 122/70 (BP Site: Left Arm, BP Position: Sitting, BP Cuff Size: Regular Adult) Pulse 76 Resp 16 Wt 91.7 kg (202 lb 3.2 oz) SpO2 96% BMI 31.37 kg/m General Appearance: Well appearing, alert, in no acute distress, well-hydrated, well nourished.. Lungs: Lungs clear to auscultation. No wheezing, rhonchi, rales.. Heart: RRR without murmur, gallop, or rubs. No ectopy. Extremities: No deformities, edema, skin discoloration, clubbing or cyanosis. Good capillary refill. . Peripheral Pulses: Normal, Capillary refill <2secs, strong peripheral pulses. Health Maintenance List DTAP,TDAP,TD(1 - Tdap) due on 04/30/2007 SHINGRIX VACCINE(3 of 3) due on 07/15/2019 DILATED RETINAL EXAM due on 08/02/2021 COVID-19 VACCINE(4 - Booster for Pfizer series) due on 08/13/2021 URINE ALBUMIN:CREATININE RATIO due on 11/16/2021 BP CONTROLLED (<130/80) due on 11/22/2021 DEPRESSION SCREENING due on 02/28/2022 INFLUENZA(1) due on 03/08/2022 HBA1C due on 07/28/2022 DIABETIC FOOT EXAM due on 10/31/2022 ANNUAL PCP TEAM CHRONIC DISEASE VISIT due on 10/31/2022 LDL CHOLESTEROL due on 01/25/2023 COLORECTAL CANCER SCREENING due on 04/11/2030 HEPATITIS C SCREENING Completed PNEUMOCOCCAL: 65+ Completed ADVANCE DIRECTIVE DISCUSSION Discontinued Data reviewed Previous records, office notes ASSESSMENT/PLAN: 1. Calf cramp - ICD9: 729.82, ICD10: R25.2 (primary diagnosis) Will assess fluid status, K+, Mg levels. Recommend stretching. Specifically before bedtime. At least 60-80oz water daily. May consider ABIs to look at possible circulation issues. Consider PT. - MAGNESIUM BLD 2. Hypertension, essential - ICD9: 401.9, ICD10: I10 - good control - Continue current medication(s) - Recommended regular aerobic exercise. - Goal of BP <130/80 - HGB A1C - CBC - COMP METABOLIC PANEL 3. Type 2 diabetes mellitus with diabetic polyneuropathy, without long-term current use of insulin (HCC) - ICD9: 250.60, 357.2, ICD10: E11.42 Controlled. - Continue current medications - Encouraged regular aerobic exercise and weight loss - HGB A1C - CBC - COMP METABOLIC PANEL 4. Mixed hyperlipidemia - ICD9: 272.2, ICD10: E78.2 - to be determined upon return of lab results - Continue current medication. - LIPID PANEL BASIC Francine Vergara APRN.CNP documented in this encounter [facility] 01-03-2022 Miscellaneous Notes The following approved medication requests have been transmitted electronically. Signed Prescriptions Disp Refills aspirin 81 mg chewable tablet 30 tablet 5 Sig: Take 1 tablet by mouth once daily. Authorizing Provider: ESEQUIEL CRAIG APRN.CNP Patient is asking that Aspirin be called in for him to the [facility] in [place]. documented in this encounter [facility] 12-26-2021 Miscellaneous Notes Patient has been identified by name and date of : Yes Pending Prescriptions Disp Refills BLOOD GLUCOSE TEST STRIPS 50 Strip 11 Sig: Test blood sugar(s) 1 times daily. Dx: Other DM Code E11.42 Insulin: No. Patient uses One Touch Verio DORON: No RX INSTRUCTIONS: Patient aware RX will be sent to pharmacy. No need to notify patient. Fannie Perfect Price [employer] documented in this encounter [facility] 11-01-2021 History of Present illness Narrative Patient presents with: Recheck: medication/routine HPI: Lara Solano is a 75 year old male who presents to the office today for review of health conditions. Concerns today: S/p left total knee replacement surgery by Dr. Choi at [facility] on 08/29/21. He feels he is overall doing well with his walking/gait and is trying to do the stretches at home that he has learned from PHYSICAL THERAPY. Still having some difficulty at times when he gets up to stand and feel stable enough to walk due to his neuropathy of his feet Neuropathy, long standing, b/l feet, still feels the gabapentin is helping symptoms so he can stay physically active and walks regularly Mr. Solano has past history of diabetes. Since our last visit he denies excessive thirst or increased frequency of urination, chest pain or dyspnea , new or unusual visual symptoms and low sugar/hypoglycemic reactions. Follows a diabetic diet some of the time. He is compliant with medication(s) and is tolerating med(s) without any side effects. He reports checking his glucose on a once a day schedule with sugars in the <120 range. Patient's last HgA1C was Hemoglobin A1C (%) Date Value 07/28/2021 7.0 05/22/2021 7.0 ) Last Ophthalmology exam was within the past 12 months Mr. Solano reports history of hyperlipidemia. Current therapy includes simvastatin (Zocor) 20 mg. Denies side effects of muscle weakness or achiness. His most recent lipid panels are reviewed. Cholesterol, Total (mg/dL) Date Value 05/22/2021 188 HDL Cholesterol (mg/dL) Date Value 05/22/2021 40 LDL Cholesterol (mg/dL) Date Value 05/22/2021 101 Triglyceride (mg/dL) Date Value 05/22/2021 233 Mr. Solano indicates a history of hypertension and states that he is feeling well and denies any symptoms referable to elevated blood pressure. Specifically denies headache, chest pain, palpitations, dyspnea and peripheral edema. Patient denies any side effects of his medication(s) and is compliant with their regimen. Last 3 Encounter BP Readings: Date: BP: 10/31/2021 138/80 08/02/2021 128/60 05/31/2021 110/60 He watches his diet for sodium, low fat and low cholesterol some of the time. He does not check BP's generally. Lara gets minimal exercise. PAST MEDICAL HISTORY Diagnosis Date Benign neoplasm of colon Diverticulosis of colon (without mention of hemorrhage) 01/30/2008 Hyperlipemia Hypertension Internal hemorrhoids without mention of complication 01/30/2008 Nonspecific abnormal finding in stool contents Other chronic dermatitis due to solar radiation 04/23/2008 Other seborrheic keratosis 12/20/2008 Pancytopenia 11/28/2007 Personal history of other malignant neoplasm of skin 04/23/2008 PMH - PAST MEDICAL HISTORY OF neuropathy PRURIGO NODULARIS///LICHENIFICATION 12/20/2008 Scar condition and fibrosis of skin 04/23/2008 Seborrheic dermatitis, unspecified 04/23/2008 Type II or unspecified type diabetes mellitus without mention of complication, not stated as uncontrolled Umbilical hernia without mention of obstruction or gangrene 04/07/2009 Unspecified pruritic disorder 04/23/2008 PAST SURGICAL HISTORY Procedure Laterality Date CHOLECYSTECTOMY 07/18/1982 Cholecystectomy COLONOSCOPY FLX DX W/COLLJ SPEC WHEN PFRMD y Colonoscopy repeat in 10 years COLSC FLX W/RMVL OF TUMOR POLYP LESION SNARE TQ 01/30/08 EYE SURGERY HX LAPAROSCOPY SURG RPR INITIAL INGUINAL HERNIA 05-06-09 LEFT INGUINAL PAST SURGICAL HISTORY OF Skin lesion removed from nose RPR UMBILICAL HERNIA AGE 6 YRS/> INCARCERATED 05-06-09 Social History Tobacco Use Smoking status: Never Smoker Smokeless tobacco: Never Used Vaping Use Vaping Use: Never used Substance Use Topics Alcohol use: Yes Comment: beer Drug use: No FAMILY HISTORY Problem Relation Age of Onset Breast Cancer Mother Heart Father chf Breast Cancer Sister Allergies: ALLERGIES Allergen Reactions Lyrica [Pregabalin] Other: See Comments Cough Current Meds: simvastatin (ZOCOR) 20 mg tablet Take 1 tablet by mouth once daily. metFORMIN ER (GLUCOPHAGE XR) 750 mg 24 hr tablet Take 1 tablet by mouth twice daily with meals. meloxicam (MOBIC) 7.5 mg tablet TAKE 1 TABLET BY MOUTH ONCE DAILY. NEEDED FOR FOOT PAIN, WITH FOOD. losartan (COZAAR) 50 mg tablet Take 1 tablet by mouth once daily. lamoTRIgine (LAMICTAL) 25 mg tablet Take 1 tablet by mouth once daily. hydroCHLOROthiazide (HYDRODIURIL, ESIDRIX) 12.5 mg capsule Take 1 capsule by mouth once daily. gabapentin (NEURONTIN) 300 mg capsule TAKE 3 CAPSULES 3 TIMES A DAY glimepiride (AMARYL) 4 mg tablet Take 1 tablet by mouth twice daily with meals. cyanocobalamin (VITAMIN B-12) 1,000 mcg tab Take 1,000 mcg by mouth once daily. blood sugar diagnostic (BLOOD GLUCOSE TEST) test strip Test blood sugar(s) 1 times daily. Dx: Other DM Code E11.42 Insulin: No. Patient uses One Touch Verio ketoconazole (NIZORAL) 2 % shampoo Apply 1 application to affected area once daily as needed for Itching/Rash (scalp itching). blood sugar diagnostic (BLOOD GLUCOSE TEST) test strip Test blood sugar(s) 1 times daily. Dx: Other DM Code E11.42 Insulin: No Mpuwjvfgchx-Vpweqlaup-Wjh C-Mn (GLUCOSAMINE CHONDROITIN MAXSTR) 500-400 mg ORAL Cap Take one(1) tablet daily. Aspirin 81 mg ORAL Tab Take one(1) tablet daily. Clobetasol Propionate (TEMOVATE) 0.05 % external solution Apply 1 application to affected area once daily as needed (scalp psoriasis). blood sugar diagnostic (ONETOUCH ULTRA TEST) test strip Test blood sugars once daily. DX: E11.42 Insulin: No COMPOUNDED PRESCRIPTION Diabetic shoes Dx: E11.65, DM2 Last office visit 05/20/18. 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 Dx: Other DM Code E11.42 Insulin: No Clobetasol Propionate 0.05 % external solution Apply to scalp psoriasis patches and plaques selectively qday to bid (once or twice a day) as needed and AVOID face, eyes, eyelids, and deep fold areas. Review of Systems: The remainder of the review of systems is negative. PE: 10/31/21 1415 BP: 138/80 Pulse: 72 Resp: 12 Weight: 90.3 kg (199 lb) Height: 171 cm (5' 7.32 ) Gen: A&O, NAD, non-toxic appearing, Pleasant, cooperative HEENT: NT/AC, PERRLA, EOMs intact b/l, nares clear and patent b/l, pharynx without erythema, exudate or lesions. Uvula midline. MMM Neck: supple, No cervical LAD, no thyromegaly, no carotid bruits CV: RRR, normal S1 and S2, no murmurs, no gallops, no rubs, Pulses 2+ and symmetric in UE and LE b/l Lungs: normal respiratory effort, CTA b/l, no wheezing or rhonchi or rales Abd: soft, NT, ND, +BS, no hepatosplenomegaly MS: FROM all 4 extremities Neuro: CN II-XII intact b/l, strength 5/5 b/l UE and LE, DTRs 2/4 UE and LE, sensation intact. Mild hitch to walk favoring left knee for 1st 10 steps then gait is stable Skin: warm, dry, intact, No rashes or lesions on exposed skin. Foot exam: Monofilament with neuropathy on right and left feet. No edema Healed left anterior knee incision ASSESSMENT/PLAN: 1. Hypertension, essential - ICD9: 401.9, ICD10: I10 (primary diagnosis) - good control - Continue current medication(s) - Encouraged dietary sodium restriction/DASH diet - Recommended regular aerobic exercise. - Recommend home blood pressure monitoring, to bring results in on next visit - Discussed need and benefit for weight loss. - Goal of BP <130/80 2. Mixed hyperlipidemia - ICD9: 272.2, ICD10: E78.2 - suboptimal control - Continue current medication. - Encouraged following a low fat, low cholesterol diet. - Discussed the benefits of regular aerobic exercise and weight loss. - SIMVASTATIN 20 MG TABLET - LIPID PANEL BASIC 3. Other polyneuropathy - ICD9: 357.89, ICD10: G62.89 - recheck labs, continue gabapentin, stable, no recent falls - VITAMIN D 25 HYDROXY - VITAMIN B12 BLOOD 4. Primary osteoarthritis of left knee - ICD9: 715.16, ICD10: M17.12 - improved, healed incision left anterior knee, gait is overall stable 5. Type 2 diabetes mellitus with diabetic polyneuropathy, without long-term current use of insulin (HCC) - ICD9: 250.60, 357.2, ICD10: E11.42 Controlled. - Continue current medications - HGB A1C - COMP METABOLIC PANEL 6. Vitamin D deficiency - ICD9: 268.9, ICD10: E55.9 - recheck labs as ordered, continue supplement - VITAMIN D 25 HYDROXY Harlan Miller DO To ER if develops chest pain, shortness of breath, or severe worsening of symptoms. Discussed risks, benefits, alternatives, and potential side effects of medications. Patient expressed understanding and agreed with the plan. Harlan Miller DO [address] [place] [address] documented in this encounter [facility] 10-31-2021 Instructions Harlan Miller DO - 10/31/2021 2:50 PM EDT Muscle roller on legs- check at [facility] or [facility] documented in this encounter [facility] 08-29-2021 Hospital Discharge instructions Patient Education 08/29/2021 10:42:14 Total Knee Replacement, Care After, Fmnm-cn-Gghu Total Knee Replacement, Care After This sheet gives you information about how to care for yourself after your procedure. Your doctor may also give you more specific instructions. If you have problems or questions, contact your doctor. What can I expect after the procedure? After the procedure, it is common to have: Pain. Swelling. A small amount of blood coming from your cut from surgery (incision). Clear fluid coming from your cut from surgery. Limited movement of your knee. Follow these instructions at home: Medicines Take dnah-bzv-mgmfaih and prescription medicines only as told by your doctor. If you were prescribed a blood thinner (anticoagulant), take it as told by your doctor. Ask your doctor if the medicine prescribed to you: ?Requires you to avoid driving or using heavy machinery. ?Can cause trouble pooping (constipation). You may need to take steps to prevent or treat trouble pooping: ?Drink enough fluid to keep your pee (urine) pale yellow. ?Take howr-cho-njgbuvk or prescription medicines. ?Eat foods that are high in fiber. These include beans, whole grains, and fresh fruits and vegetables. ?Limit foods that are high in fat and sugar. These include fried or sweet foods. Bathing Do not take baths, swim, or use a hot tub until your doctor approves. Ask your doctor if you may take showers. You may only be allowed to take sponge baths. Keep your bandage (dressing) dry until your doctor says it can be taken off. Incision care and drain care Follow instructions from your doctor about how to take care of your cut from surgery. Make sure you: ?Wash your hands with soap and water before and after you change your bandage. If you cannot use soap and water, use hand firewall engineer. ?Change your bandage as told by your doctor. ?Leave stitches (sutures), skin glue, or skin tape (adhesive) strips in place. They may need to stay in place for 2 weeks or longer. If tape strips get loose and curl up, you may trim the loose edges. Do not remove tape strips completely unless your doctor says it is okay. Check your cut from surgery and your drain site every day for signs of infection. Check for: ?More redness, swelling, or pain. ?More fluid or blood. ?Warmth. ?Pus or a bad smell. If you have a drain, follow instructions from your doctor about caring for it. Managing pain, stiffness, and swelling If told, put ice on your knee. ?Put ice in a plastic bag or use the icing device (cold flow pad or cryocuff) that you were given. Follow your doctor's directions about how to use the icing device. ?Place a towel between your skin and the bag or between your skin and the icing device. ?Leave the ice on for 20 minutes, 2 3 times per day. If told, put heat on your knee before you exercise. Use the heat source that your doctor recommends, such as a moist heat pack or a heating pad. ?Place a towel between your skin and the heat source. ?Leave the heat on for 20 30 minutes. ?Remove the heat if your skin turns bright red. This is very important if you are unable to feel pain, heat, or cold. You may have a greater risk of getting burned. Move your toes often. Raise (elevate) your knee above the level of your heart while you are sitting or lying down. ?Use several pillows to keep your leg straight. ?Do not put a pillow just under the knee. If the knee is bent for a long time, this may make the knee stiff. Wear elastic knee support as told by your doctor. Activity Rest as told by your doctor. Do not sit for a long time without moving. Get up to take short walks every 1 2 hours. This is important. Ask for help if you feel weak or unsteady. Ask your doctor what activities are safe for you. Avoid activities that put stress on your knees. These include running, jumping rope, and jumping jacks. Do not play contact sports until your doctor says it is okay. Do exercises as told by your physical therapist. If you have been sent home with a knee joint motion machine (continuous passive motion machine), use it as told by your doctor. Safety Do not use your leg to support your body weight until your doctor says that you can. Use crutches or a walker as told by your doctor. Do not drive until your doctor says it is okay. Ask your doctor when it is safe to drive. General instructions Do not use any products that contain nicotine or tobacco, such as cigarettes, e-cigarettes, and chewing tobacco. These can delay healing. If you need help quitting, ask your doctor. Wear special socks (compression stockings) as told by your doctor. Tell your doctor if you plan to have dental work. Also: ?Tell your dentist about your joint replacement. ?Ask your doctor if there are instructions you need to follow before dental care and routine cleanings. Keep all follow-up visits as told by your doctor. This is important. Contact a doctor if: You have more redness, swelling, or pain around your cut from surgery or your drain. You have more fluid or blood coming from your cut from surgery or your drain. You have pus or a bad smell coming from your cut from surgery or your drain. Your cut from surgery or your drain area feels warm to the touch. You have a fever. Your cut breaks open. You have knee pain that does not go away. The movement of your knee is getting worse. Your new joint feels loose. Get help right away if you have: Pain in your calf or thigh. Swelling in your calf or thigh. Shortness of breath. Trouble breathing. Chest pain. Summary After the procedure, it is common to have pain and swelling, blood or fluid coming from your cut from surgery, and trouble moving your knee. Follow instructions from your doctor about how to take care of your cut from surgery. Use crutches or a walker as told by your doctor. If you were prescribed a blood thinner, take it as told by your doctor. Keep all follow-up visits as told by your doctor. This is important. This information is not intended to replace advice given to you by your health care provider. Make sure you discuss any questions you have with your health care provider. Document Released: 09/15/2012 Document Revised: 11/02/2019 Document Reviewed: 02/05/2019 [employer] Patient Education 2020 [employer]. 08/29/2021 10:42:13 Nausea and Vomiting, Adult, Gpwr-oq-Nvgr Nausea and Vomiting, Adult Nausea is feeling sick to your stomach or feeling that you are about to throw up (vomit). Vomiting is when food in your stomach is thrown up and out of the mouth. Throwing up can make you feel weak. It can also make you lose too much water in your body (get dehydrated). If you lose too much water in your body, you may: Feel tired. Feel thirsty. Have a dry mouth. Have cracked lips. Go pee (urinate) less often. Older adults and people with other diseases or a weak body defense system (immune system) are at higher risk for losing too much water in the body. If you feel sick to your stomach and you throw up, it is important to follow instructions from your doctor about how to take care of yourself. Follow these instructions at home: Watch your symptoms for any changes. Tell your doctor about them. Follow these instructions to care for yourself at home. Eating and drinking Take an ORS (oral rehydration solution). This is a drink that is sold at pharmacies and stores. Drink clear fluids in small amounts as you are able, such as: ?Water. ?Ice chips. ?Fruit juice that has water added (diluted fruit juice). ?Low-calorie sports drinks. Eat bland, kbny-rg-zovbbm foods in small amounts as you are able, such as: ?Bananas. ?Applesauce. ?Rice. ?Low-fat (lean) meats. ?[place]. ?Crackers. Avoid drinking fluids that have a lot of sugar or caffeine in them. This includes energy drinks, sports drinks, and soda. Avoid alcohol. Avoid spicy or fatty foods. General instructions Take pwrn-dpa-jcmmdqb and prescription medicines only as told by your doctor. Drink enough fluid to keep your pee (urine) pale yellow. Wash your hands often with soap and water. If you cannot use soap and water, use hand firewall engineer. Make sure that all people in your home wash their hands well and often. Rest at home while you get better. Watch your condition for any changes. Take slow and deep breaths when you feel sick to your stomach. Keep all follow-up visits as told by your doctor. This is important. Contact a doctor if: Your symptoms get worse. You have new symptoms. You have a fever. You cannot drink fluids without throwing up. You feel sick to your stomach for more than 2 days. You feel light-headed or dizzy. You have a headache. You have muscle cramps. You have a rash. You have pain while peeing. Get help right away if: You have pain in your chest, neck, arm, or jaw. You feel very weak or you pass out (faint). You throw up again and again. You have throw up that is bright red or looks like black coffee grounds. You have bloody or black poop (stools) or poop that looks like tar. You have a very bad headache, a stiff neck, or both. You have very bad pain, cramping, or bloating in your belly (abdomen). You have trouble breathing. You are breathing very quickly. Your heart is beating very quickly. Your skin feels cold and clammy. You feel confused. You have signs of losing too much water in your body, such as: ?Dark pee, very little pee, or no pee. ?Cracked lips. ?Dry mouth. ?Sunken eyes. ?Sleepiness. ?Weakness. These symptoms may be an emergency. Do not wait to see if the symptoms will go away. Get medical help right away. Call your local emergency services (911 in the [place] Do not drive yourself to the hospital. Summary Nausea is feeling sick to your stomach or feeling that you are about to throw up (vomit). Vomiting is when food in your stomach is thrown up and out of the mouth. Follow instructions from your doctor about eating and drinking to keep from losing too much water in your body. Take arca-nni-qsexfvz and prescription medicines only as told by your doctor. Contact your doctor if your symptoms get worse or you have new symptoms. Keep all follow-up visits as told by your doctor. This is important. This information is not intended to replace advice given to you by your health care provider. Make sure you discuss any questions you have with your health care provider. Document Released: 12/10/2008 Document Revised: 10/16/2019 Document Reviewed: 12/02/2018 [employer] Patient Education 2020 [employer]. 08/29/2021 10:42:12 Monitored Anesthesia Care, Care After Monitored Anesthesia Care, Care After These instructions provide you with information about caring for yourself after your procedure. Your health care provider may also give you more specific instructions. Your treatment has been planned according to current medical practices, but problems sometimes occur. Call your health care provider if you have any problems or questions after your procedure. What can I expect after the procedure? After your procedure, you may: Feel sleepy for several hours. Feel clumsy and have poor balance for several hours. Feel forgetful about what happened after the procedure. Have poor judgment for several hours. Feel nauseous or vomit. Have a sore throat if you had a breathing tube during the procedure. Follow these instructions at home: For at least 24 hours after the procedure: Have a responsible adult stay with you. It is important to have someone help care for you until you are awake and alert. Rest as needed. Do not: ?Participate in activities in which you could fall or become injured. ?Drive. ?Use heavy machinery. ?Drink alcohol. ?Take sleeping pills or medicines that cause drowsiness. ?Make important decisions or sign legal documents. ?Take care of children on your own. Eating and drinking Follow the diet that is recommended by your health care provider. If you vomit, drink water, juice, or soup when you can drink without vomiting. Make sure you have little or no nausea before eating solid foods. General instructions Take ytuv-pwf-ekmixih and prescription medicines only as told by your health care provider. If you have sleep apnea, surgery and certain medicines can increase your risk for breathing problems. Follow instructions from your health care provider about wearing your sleep device: ?Anytime you are sleeping, including during daytime naps. ?While taking prescription pain medicines, sleeping medicines, or medicines that make you drowsy. If you smoke, do not smoke without supervision. Keep all follow-up visits as told by your health care provider. This is important. Contact a health care provider if: You keep feeling nauseous or you keep vomiting. You feel light-headed. You develop a rash. You have a fever. Get help right away if: You have trouble breathing. Summary For several hours after your procedure, you may feel sleepy and have poor judgment. Have a responsible adult stay with you for at least 24 hours or until you are awake and alert. This information is not intended to replace advice given to you by your health care provider. Make sure you discuss any questions you have with your health care provider. Document Released: 10/14/2016 Document Revised: 09/22/2018 Document Reviewed: 10/14/2016 [employer] Patient Education 2020 [employer] [facility] 07/05/2021 10:24:50 With:TONI SORTO Address: [facility] [address] [place] [phone] (1) When:09/13/2021 [facility] 08-18-2021 Evaluation + Plan note Future Appointments Diagnostic Tests CivmgquN7O Hemoglobin 08/18/21 [facility] documented as of this encounter (statuses as of 11/01/2021) [facility] History of Past illness Narrative* Problem Noted Date Resolved Date Thrombocytopenia 11/19/2018 11/13/2019 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 04/14/2015 04/14/2015 Mzk-egxd-ryen 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, with mild nonproliferative retinopathy, associated with type 2 diabetes mellitus 05/28/2014 05/28/2014 Nonproliferative diabetic retinopathy 05/28/2014 11/13/2019 Umbilical hernia without mention of obstruction or gangrene 04/07/2009 07/12/2016 Inguinal hernia unilateral 04/07/200907/12 Personal history of other malignant neoplasm of skin 04/23/2008 07/12/2016 Benign neoplasm of colon 01/30/2008 017 Overview: Colonscopy 30 January 2008 Repeat in ten years Internal hemorrhoids without mention of complica tion 01/30/2008 07/12/2016 Pancytopenia 11/28/2007 07/12/2016 Type II or unspecified type diabetes mellitus with neurological manifestations, not stated as uncontrolled 11/25/2006 04/14/2015 Overview: 05/22/12 DM eye exam per Pavel Moody O.D. No diabetic retinopathy detected- both eyes. 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, with mild nonproliferative retinopathy, associated with type 2 diabetes mellitus 05/28/2014 05/28/2014 Nonproliferative diabetic retinopathy 05/28/2014 11/13/2019 Umbilical hernia without mention of obstruction or gangrene 04/07/2009 07/12/2016 Inguinal hernia unilateral 04/07/200907/12 Personal history of other malignant neoplasm of skin 04/23/2008 07/12/2016 Benign neoplasm of colon 01/30/2008 017 Overview: Colonscopy 30 January 2008 Repeat in ten years Internal hemorrhoids without mention of complica tion 01/30/2008 07/12/2016 Pancytopenia 11/28/2007 07/12/2016 Type II or unspecified type diabetes mellitus with neurological manifestations, not stated as uncontrolled 11/25/2006 04/14/2015 Overview: 05/22/12 DM eye exam per Pavel Moody O.D. No diabetic retinopathy detected- both eyes. 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, with mild nonproliferative retinopathy, associated with type 2 diabetes mellitus 05/28/2014 05/28/2014 Nonproliferative diabetic retinopathy 05/28/2014 11/13/2019 Umbilical hernia without mention of obstruction or gangrene 04/07/2009 07/12/2016 Inguinal hernia unilateral 04/07/200907/12 Personal history of other malignant neoplasm of skin 04/23/2008 07/12/2016 Benign neoplasm of colon 01/30/2008 017 Overview: Colonscopy 30 January 2008 Repeat in ten years Internal hemorrhoids without mention of complica tion 01/30/2008 07/12/2016 Pancytopenia 11/28/2007 07/12/2016 Type II or unspecified type diabetes mellitus with neurological manifestations, not stated as uncontrolled 11/25/2006 04/14/2015 Overview: 05/22/12 DM eye exam per Pavel Moody O.D. No diabetic retinopathy detected- both eyes. 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, with mild nonproliferative retinopathy, associated with type 2 diabetes mellitus 05/28/2014 05/28/2014 Nonproliferative diabetic retinopathy 05/28/2014 11/13/2019 Umbilical hernia without mention of obstruction or gangrene 04/07/2009 07/12/2016 Inguinal hernia unilateral 04/07/200907/12 Personal history of other malignant neoplasm of skin 04/23/2008 07/12/2016 Benign neoplasm of colon 01/30/2008 017 Overview: Colonscopy 30 January 2008 Repeat in ten years Internal hemorrhoids without mention of complica tion 01/30/2008 07/12/2016 Pancytopenia 11/28/2007 07/12/2016 Type II or unspecified type diabetes mellitus with neurological manifestations, not stated as uncontrolled 11/25/2006 04/14/2015 Overview: 05/22/12 DM eye exam per Pavel Moody O.D. No diabetic retinopathy detected- both eyes. 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, with mild nonproliferative retinopathy, associated with type 2 diabetes mellitus 05/28/2014 05/28/2014 Nonproliferative diabetic retinopathy 05/28/2014 11/13/2019 Umbilical hernia without mention of obstruction or gangrene 04/07/2009 07/12/2016 Inguinal hernia unilateral 04/07/200907/12 Personal history of other malignant neoplasm of skin 04/23/2008 07/12/2016 Benign neoplasm of colon 01/30/2008 017 Overview: Colonscopy 30 January 2008 Repeat in ten years Internal hemorrhoids without mention of complica tion 01/30/2008 07/12/2016 Pancytopenia 11/28/2007 07/12/2016 Type II or unspecified type diabetes mellitus with neurological manifestations, not stated as uncontrolled 11/25/2006 04/14/2015 Overview: 05/22/12 DM eye exam per Pavel Moody O.D. No diabetic retinopathy detected- both eyes. 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, with mild nonproliferative retinopathy, associated with type 2 diabetes mellitus 05/28/2014 05/28/2014 Nonproliferative diabetic retinopathy 05/28/2014 11/13/2019 Umbilical hernia without mention of obstruction or gangrene 04/07/2009 07/12/2016 Inguinal hernia unilateral 04/07/200907/12 Personal history of other malignant neoplasm of skin 04/23/2008 07/12/2016 Benign neoplasm of colon 01/30/2008 017 Overview: Colonscopy 30 January 2008 Repeat in ten years Internal hemorrhoids without mention of complica tion 01/30/2008 07/12/2016 Pancytopenia 11/28/2007 07/12/2016 Type II or unspecified type diabetes mellitus with neurological manifestations, not stated as uncontrolled 11/25/2006 04/14/2015 Overview: 05/22/12 DM eye exam per Pavel Moody O.D. No diabetic retinopathy detected- both eyes. 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, with mild nonproliferative retinopathy, associated with type 2 diabetes mellitus 05/28/2014 05/28/2014 Nonproliferative diabetic retinopathy 05/28/2014 11/13/2019 Umbilical hernia without mention of obstruction or gangrene 04/07/2009 07/12/2016 Inguinal hernia unilateral 04/07/200907/12 Personal history of other malignant neoplasm of skin 04/23/2008 07/12/2016 Benign neoplasm of colon 01/30/2008 017 Overview: Colonscopy 30 January 2008 Repeat in ten years Internal hemorrhoids without mention of complica tion 01/30/2008 07/12/2016 Pancytopenia 11/28/2007 07/12/2016 Type II or unspecified type diabetes mellitus with neurological manifestations, not stated as uncontrolled 11/25/2006 04/14/2015 Overview: 05/22/12 DM eye exam per Pavel Moody O.D. No diabetic retinopathy detected- both eyes. 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, with mild nonproliferative retinopathy, associated with type 2 diabetes mellitus 05/28/2014 05/28/2014 Nonproliferative diabetic retinopathy 05/28/2014 11/13/2019 Umbilical hernia without mention of obstruction or gangrene 04/07/2009 07/12/2016 Inguinal hernia unilateral 04/07/200907/12 Personal history of other malignant neoplasm of skin 04/23/2008 07/12/2016 Benign neoplasm of colon 01/30/2008 017 Overview: Colonscopy 30 January 2008 Repeat in ten years Internal hemorrhoids without mention of complica tion 01/30/2008 07/12/2016 Pancytopenia 11/28/2007 07/12/2016 Type II or unspecified type diabetes mellitus with neurological manifestations, not stated as uncontrolled 11/25/2006 04/14/2015 Overview: 05/22/12 DM eye exam per Pavel Moody O.D. No diabetic retinopathy detected- both eyes. 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, with mild nonproliferative retinopathy, associated with type 2 diabetes mellitus 05/28/2014 05/28/2014 Nonproliferative diabetic retinopathy 05/28/2014 11/13/2019 Umbilical hernia without mention of obstruction or gangrene 04/07/2009 07/12/2016 Inguinal hernia unilateral 04/07/200907/12 Personal history of other malignant neoplasm of skin 04/23/2008 07/12/2016 Benign neoplasm of colon 01/30/2008 017 Overview: Colonscopy 30 January 2008 Repeat in ten years Internal hemorrhoids without mention of complica tion 01/30/2008 07/12/2016 Pancytopenia 11/28/2007 07/12/2016 Type II or unspecified type diabetes mellitus with neurological manifestations, not stated as uncontrolled 11/25/2006 04/14/2015 Overview: 05/22/12 DM eye exam per Pavel Moody O.D. No diabetic retinopathy detected- both eyes. 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 04/14/2015 04/14/2015 Gay-czjr-lglc 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, with mild nonproliferative retinopathy, associated with type 2 diabetes mellitus 05/28/2014 05/28/2014 Nonproliferative diabetic retinopathy 05/28/2014 11/13/2019 Umbilical hernia without mention of obstruction or gangrene 04/07/2009 07/12/2016 Inguinal hernia unilateral 04/07/200907/12 Personal history of other malignant neoplasm of skin 04/23/2008 07/12/2016 Benign neoplasm of colon 01/30/2008 017 Overview: Colonscopy 30 January 2008 Repeat in ten years Internal hemorrhoids without mention of complica tion 01/30/2008 07/12/2016 Pancytopenia 11/28/2007 07/12/2016 Type II or unspecified type diabetes mellitus with neurological manifestations, not stated as uncontrolled 11/25/2006 04/14/2015 Overview: 05/22/12 DM eye exam per Pavel Moody O.D. No diabetic retinopathy detected- both eyes. 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 04/14/2015 04/14/2015 Crl-[id number]-lcxt 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, with mild nonproliferative retinopathy, associated with type 2 diabetes mellitus 05/28/2014 05/28/2014 Nonproliferative diabetic retinopathy 05/28/2014 11/13/2019 Umbilical hernia without mention of obstruction or gangrene 04/07/2009 07/12/2016 Inguinal hernia unilateral 04/07/200907/12 Personal history of other malignant neoplasm of skin 04/23/2008 07/12/2016 Benign neoplasm of colon 01/30/2008 017 Overview: Colonscopy 30 January 2008 Repeat in ten years Internal hemorrhoids without mention of complica tion 01/30/2008 07/12/2016 Pancytopenia 11/28/2007 07/12/2016 Type II or unspecified type diabetes mellitus with neurological manifestations, not stated as uncontrolled 11/25/2006 04/14/2015 Overview: 05/22/12 DM eye exam per Pavel Moody O.D. No diabetic retinopathy detected- both eyes. 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 04/14/2015 04/14/2015 Dqp-[id number]-qlyi 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, with mild nonproliferative retinopathy, associated with type 2 diabetes mellitus 05/28/2014 05/28/2014 Nonproliferative diabetic retinopathy 05/28/2014 11/13/2019 Umbilical hernia without mention of obstruction or gangrene 04/07/2009 07/12/2016 Inguinal hernia unilateral 04/07/200907/12 Personal history of other malignant neoplasm of skin 04/23/2008 07/12/2016 Benign neoplasm of colon 01/30/2008 017 Overview: Colonscopy 30 January 2008 Repeat in ten years Internal hemorrhoids without mention of complica tion 01/30/2008 07/12/2016 Pancytopenia 11/28/2007 07/12/2016 Type II or unspecified type diabetes mellitus with neurological manifestations, not stated as uncontrolled 11/25/2006 04/14/2015 Overview: 05/22/12 DM eye exam per Pavel Moody O.D. No diabetic retinopathy detected- both eyes. 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 04/14/2015 04/14/2015 Tvt-nbul-svin 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, with mild nonproliferative retinopathy, associated with type 2 diabetes mellitus 05/28/2014 05/28/2014 Nonproliferative diabetic retinopathy 05/28/2014 11/13/2019 Umbilical hernia without mention of obstruction or gangrene 04/07/2009 07/12/2016 Inguinal hernia unilateral 04/07/200907/12 Personal history of other malignant neoplasm of skin 04/23/2008 07/12/2016 Benign neoplasm of colon 01/30/2008 017 Overview: Colonscopy 30 January 2008 Repeat in ten years Internal hemorrhoids without mention of complica tion 01/30/2008 07/12/2016 Pancytopenia 11/28/2007 07/12/2016 Type II or unspecified type diabetes mellitus with neurological manifestations, not stated as uncontrolled 11/25/2006 04/14/2015 Overview: 05/22/12 DM eye exam per Pavel Moody O.D. No diabetic retinopathy detected- both eyes. 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 04/14/2015 04/14/2015 Ipm-vxcx-ifkr 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, with mild nonproliferative retinopathy, associated with type 2 diabetes mellitus 05/28/2014 05/28/2014 Nonproliferative diabetic retinopathy 05/28/2014 11/13/2019 Umbilical hernia without mention of obstruction or gangrene 04/07/2009 07/12/2016 Inguinal hernia unilateral 04/07/200907/12 Personal history of other malignant neoplasm of skin 04/23/2008 07/12/2016 Benign neoplasm of colon 01/30/2008 017 Overview: Colonscopy 30 January 2008 Repeat in ten years Internal hemorrhoids without mention of complica tion 01/30/2008 07/12/2016 Pancytopenia 11/28/2007 07/12/2016 Type II or unspecified type diabetes mellitus with neurological manifestations, not stated as uncontrolled 11/25/2006 04/14/2015 Overview: 05/22/12 DM eye exam per Pavel Moody O.D. No diabetic retinopathy detected- both eyes. 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 04/14/2015 04/14/2015 Lqz-zrsa-khaa 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, with mild nonproliferative retinopathy, associated with type 2 diabetes mellitus 05/28/2014 05/28/2014 Nonproliferative diabetic retinopathy 05/28/2014 11/13/2019 Umbilical hernia without mention of obstruction or gangrene 04/07/2009 07/12/2016 Inguinal hernia unilateral 04/07/200907/12 Personal history of other malignant neoplasm of skin 04/23/2008 07/12/2016 Benign neoplasm of colon 01/30/2008 017 Overview: Colonscopy 30 January 2008 Repeat in ten years Internal hemorrhoids without mention of complica tion 01/30/2008 07/12/2016 Pancytopenia 11/28/2007 07/12/2016 Type II or unspecified type diabetes mellitus with neurological manifestations, not stated as uncontrolled 11/25/2006 04/14/2015 Overview: 05/22/12 DM eye exam per Pavel Moody O.D. No diabetic retinopathy detected- both eyes. 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 04/14/2015 04/14/2015 Uys-fhvq-rkst 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, with mild nonproliferative retinopathy, associated with type 2 diabetes mellitus 05/28/2014 05/28/2014 Nonproliferative diabetic retinopathy 05/28/2014 11/13/2019 Umbilical hernia without mention of obstruction or gangrene 04/07/2009 07/12/2016 Inguinal hernia unilateral 04/07/200907/12 Personal history of other malignant neoplasm of skin 04/23/2008 07/12/2016 Benign neoplasm of colon 01/30/2008 017 Overview: Colonscopy 30 January 2008 Repeat in ten years Internal hemorrhoids without mention of complica tion 01/30/2008 07/12/2016 Pancytopenia 11/28/2007 07/12/2016 Type II or unspecified type diabetes mellitus with neurological manifestations, not stated as uncontrolled 11/25/2006 04/14/2015 Overview: 05/22/12 DM eye exam per Pavel Moody O.D. No diabetic retinopathy detected- both eyes. 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 04/14/2015 04/14/2015 Eky-btuo-orlp 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, with mild nonproliferative retinopathy, associated with type 2 diabetes mellitus 05/28/2014 05/28/2014 Nonproliferative diabetic retinopathy 05/28/2014 11/13/2019 Umbilical hernia without mention of obstruction or gangrene 04/07/2009 07/12/2016 Inguinal hernia unilateral 04/07/200907/12 Personal history of other malignant neoplasm of skin 04/23/2008 07/12/2016 Benign neoplasm of colon 01/30/2008 017 Overview: Colonscopy 30 January 2008 Repeat in ten years Internal hemorrhoids without mention of complica tion 01/30/2008 07/12/2016 Pancytopenia 11/28/2007 07/12/2016 Type II or unspecified type diabetes mellitus with neurological manifestations, not stated as uncontrolled 11/25/2006 04/14/2015 Overview: 05/22/12 DM eye exam per Pavel Moody O.D. No diabetic retinopathy detected- both eyes. 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 04/14/2015 04/14/2015 Aei-tbtf-krnz 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, with mild nonproliferative retinopathy, associated with type 2 diabetes mellitus 05/28/2014 05/28/2014 Nonproliferative diabetic retinopathy 05/28/2014 11/13/2019 Umbilical hernia without mention of obstruction or gangrene 04/07/2009 07/12/2016 Inguinal hernia unilateral 04/07/200907/12 Personal history of other malignant neoplasm of skin 04/23/2008 07/12/2016 Benign neoplasm of colon 01/30/2008 017 Overview: Colonscopy 30 January 2008 Repeat in ten years Internal hemorrhoids without mention of complica tion 01/30/2008 07/12/2016 Pancytopenia 11/28/2007 07/12/2016 Type II or unspecified type diabetes mellitus with neurological manifestations, not stated as uncontrolled 11/25/2006 04/14/2015 Overview: 05/22/12 DM eye exam per Pavel Moody O.D. No diabetic retinopathy detected- both eyes. 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 04/14/2015 04/14/2015 Lmw-rbjl-npor 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, with mild nonproliferative retinopathy, associated with type 2 diabetes mellitus 05/28/2014 05/28/2014 Nonproliferative diabetic retinopathy 05/28/2014 11/13/2019 Umbilical hernia without men tion of obstruction or gangrene 04/07/2009 07/12/2016 Inguinal hernia unilateral 04/07/2009 0 07/12/2016 Personal history of other ma lignant neoplasm of skin 04/23/2008 07/12/2016 Benign neoplasm of colon 01/30/200811/2016 Overview: Colonscopy 30 January 2008 Repeat in ten years Internal hemorrhoids without mention of complication 01/30/2008 07/12/2016 Pancytopenia 11/28/2007 07/12/2016 Type II or unspecified type diabetes mellitus with neurological manifestations, not stated as uncontrolled 11/25/2006 04/14/2015 Overview: 05/22/12 DM eye exam per Pavel Moody O.D. No diabetic retinopathy detected- both eyes. 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 04/14/2015 04/14/2015 Ldn-xlbu-qlbe 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, with mild nonproliferative retinopathy, associated with type 2 diabetes mellitus 05/28/2014 05/28/2014 Nonproliferative diabetic retinopathy 05/28/2014 11/13/2019 Umbilical hernia without men tion of obstruction or gangrene 04/07/2009 07/12/2016 Inguinal hernia unilateral 04/07/2009 0 07/12/2016 Personal history of other ma lignant neoplasm of skin 04/23/2008 07/12/2016 Benign neoplasm of colon 01/30/200811/2016 Overview: Colonscopy 30 January 2008 Repeat in ten years Internal hemorrhoids without mention of complication 01/30/2008 07/12/2016 Pancytopenia 11/28/2007 07/12/2016 Type II or unspecified type diabetes mellitus with neurological manifestations, not stated as uncontrolled 11/25/2006 04/14/2015 Overview: 05/22/12 DM eye exam per Pavel Moody O.D. No diabetic retinopathy detected- both eyes. 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 04/14/2015 04/14/2015 Brx-pikq-fguq 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, with mild nonproliferative retinopathy, associated with type 2 diabetes mellitus 05/28/2014 05/28/2014 Nonproliferative diabetic retinopathy 05/28/2014 11/13/2019 Umbilical hernia without men tion of obstruction or gangrene 04/07/2009 07/12/2016 Inguinal hernia unilateral 04/07/2009 0 07/12/2016 Personal history of other ma lignant neoplasm of skin 04/23/2008 07/12/2016 Benign neoplasm of colon 01/30/200811/2016 Overview: Colonscopy 30 January 2008 Repeat in ten years Internal hemorrhoids without mention of complication 01/30/2008 07/12/2016 Pancytopenia 11/28/2007 07/12/2016 Type II or unspecified type diabetes mellitus with neurological manifestations, not stated as uncontrolled 11/25/2006 04/14/2015 Overview: 05/22/12 DM eye exam per Pavel Moody O.D. No diabetic retinopathy detected- both eyes. 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 04/14/2015 04/14/2015 Fwr-oapo-qmxx 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, with mild nonproliferative retinopathy, associated with type 2 diabetes mellitus 05/28/2014 05/28/2014 Nonproliferative diabetic retinopathy 05/28/2014 11/13/2019 Umbilical hernia without men tion of obstruction or gangrene 04/07/2009 07/12/2016 Inguinal hernia unilateral 04/07/2009 0 07/12/2016 Personal history of other ma lignant neoplasm of skin 04/23/2008 07/12/2016 Benign neoplasm of colon 01/30/200811/2016 Overview: Colonscopy 30 January 2008 Repeat in ten years Internal hemorrhoids without mention of complication 01/30/2008 07/12/2016 Pancytopenia 11/28/2007 07/12/2016 Type II or unspecified type diabetes mellitus with neurological manifestations, not stated as uncontrolled 11/25/2006 04/14/2015 Overview: 05/22/12 DM eye exam per Pavel Moody O.D. No diabetic retinopathy detected- both eyes. 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 04/14/2015 04/14/2015 Cua-ikkk-foak 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, with mild nonproliferative retinopathy, associated with type 2 diabetes mellitus 05/28/2014 05/28/2014 Nonproliferative diabetic retinopathy 05/28/2014 11/13/2019 Umbilical hernia without men tion of obstruction or gangrene 04/07/2009 07/12/2016 Inguinal hernia unilateral 04/07/2009 0 07/12/2016 Personal history of other ma lignant neoplasm of skin 04/23/2008 07/12/2016 Benign neoplasm of colon 01/30/200811/2016 Overview: Colonscopy 30 January 2008 Repeat in ten years Internal hemorrhoids without mention of complication 01/30/2008 07/12/2016 Pancytopenia 11/28/2007 07/12/2016 Type II or unspecified type diabetes mellitus with neurological manifestations, not stated as uncontrolled 11/25/2006 04/14/2015 Overview: 05/22/12 DM eye exam per Pavel Moody O.D. No diabetic retinopathy detected- both eyes. 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 04/14/2015 04/14/2015 Rzl-nefz-tynw 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, with mild nonproliferative retinopathy, associated with type 2 diabetes mellitus 05/28/2014 05/28/2014 Nonproliferative diabetic retinopathy 05/28/2014 11/13/2019 Umbilical hernia without men tion of obstruction or gangrene 04/07/2009 07/12/2016 Inguinal hernia unilateral 04/07/2009 0 07/12/2016 Personal history of other ma lignant neoplasm of skin 04/23/2008 07/12/2016 Benign neoplasm of colon 01/30/200811/2016 Overview: Colonscopy 30 January 2008 Repeat in ten years Internal hemorrhoids without mention of complication 01/30/2008 07/12/2016 Pancytopenia 11/28/2007 07/12/2016 Type II or unspecified type diabetes mellitus with neurological manifestations, not stated as uncontrolled 11/25/2006 04/14/2015 Overview: 05/22/12 DM eye exam per Pavel Moody O.D. No diabetic retinopathy detected- both eyes. Unspecified hereditary and i diopathic peripheral neuropathy 11/21/2006 04/14/2015 OVERWEIGHT 11/21/2006 11/13/2019 documented as of this encounter (statuses as of 06/11/2023) [facility] Future Appointments [facility] Evaluation note* Diagnosis Hypertension, essential- Primary Unspecified essential hypertension Mixed hyperlipidemia Other polyneuropathy Primary osteoarthritis of left knee Primary localized osteoarthrosis, lower leg Type 2 diabetes mellitus with diabetic polyneuropathy, without long-term current use of insulin (HCC) Vitamin D deficiency Unspecified vitamin D deficiency [facility] Calf cramp- Primary Cramp of limb Hypertension, essential Unspecified essential hypertension Type 2 diabetes mellitus with diabetic polyneuropathy, without long-term current use of insulin (HCC) Mixed hyperlipidemia [facility] Diagnosis Type 2 diabetes mellitus with diabetic polyneuropathy, without long-term current use of insulin ([facility])- Primary Decreased pulses in feet Other symptoms involving cardiovascular system Mass of left side of neck Swelling, mass, or lump in head and neck Actinic keratosis Cold intolerance Other general symptoms Muscle cramp Cramp of limb Hypertension, essential Unspecified essential hypertension Mixed hyperlipidemia Other polyneuropathy documented in this encounter [facility]* Diagnosis PAD (peripheral artery disease) ([facility])- Primary Peripheral vascular disease, unspecified documented [facility] this [facility]* Diagnosis Bilateral carotid artery stenosis- Primary Occlusion and stenosis of carotid artery without mention of cerebral infarction PAD (peripheral artery disease) ([facility]) Peripheral vascular disease, unspecified Peripheral arterial disease (HCC) Peripheral vascular disease, unspecified Aortoiliac stenosis ([facility]) Atherosclerosis of aorta documented [facility] this [facility]* Diagnosis Peripheral arterial disease (HCC)- Primary Peripheral vascular disease, unspecified documented [facility]* Diagnosis Cerebrovascular accident (CVA) due to stenosis of right carotid artery ([facility])- Primary documented in this [facility]* Diagnosis Type 2 diabetes mellitus with diabetic polyneuropathy, without long-term current use of insulin ([facility])- Primary Hypersplenism documented in this [facility]* Diagnosis Type 2 diabetes mellitus with diabetic polyneuropathy, without long-term current use of insulin ([facility])- Primary PAD (peripheral artery disease) (HCC) Peripheral vascular disease, unspecified Hypertension, essential Unspecified essential hypertension Mixed hyperlipidemia Other polyneuropathy Hypercalcemia Vitamin D deficiency Unspecified vitamin D deficiency Benign prostatic hyperplasia with lower urinary tract symptoms, symptom details unspecified Thrombocytopenia (HCC) Thrombocytopenia, unspecified Diabetic ulcer of left midfoot associated with type 2 diabetes mellitus, limited to breakdown of skin ([facility]) documented in this [facility]* Diagnosis Mixed hyperlipidemia [facility] Diagnosis Acute cystitis with hematuria- Primary Acute cystitis Atrial fibrillation with rapid ventricular response (HCC) Atrial fibrillation Acute diverticulitis Diverticulitis of colon (without mention of hemorrhage) Acute renal insufficiency Unspecified disorder of kidney and ureter Type 2 diabetes mellitus with diabetic polyneuropathy, without long-term current use of insulin (HCC) Gait disorder Abnormality of gait Hypertension, essential Unspecified essential hypertension Other polyneuropathy [facility] Diagnosis Type 2 diabetes mellitus with diabetic polyneuropathy, without long-term current use of insulin (HCC)- Primary Mixed hyperlipidemia Other polyneuropathy Vitamin D deficiency Unspecified vitamin D deficiency Atrial fibrillation with rapid ventricular response (HCC) Atrial fibrillation Acute renal insufficiency Unspecified disorder of kidney and ureter Hypertension, essential Unspecified essential hypertension Gait disorder Abnormality of gait PAD (peripheral artery disease) (HCC) Peripheral vascular disease, unspecified Thrombocytopenia (HCC) Thrombocytopenia, unspecified documented in this encounter [facility] Narrative No data available for this section [facility] Discharge instructions No data available for this section [facility] Reason for referral (narrative)* Outpatient Procedure (Routine) - Pending Review Specialty Diagnoses / Procedures Referred By Sean t Referred To Contact [facility] [place] Diagnoses Aortoiliac stenosis (HCC) Procedures SCREENING AORTA DUPLEX (2017) US ABDOMINAL AORTA REAL TIME SCREEN STUDY AAA Sera Bruec MD [address] [place] [address] [facility] [place] [id number] [place] [address] Referral ID Status Reason Start Date Expiration Date Visits Requested Visits Authorized [id number] Pending Review Auto-Generat ed Referral 09/05/2022 09/05/2023 1 1 * Outpatient Procedure (Routine) - Authorized Specialty Diagnoses / Procedures Referred By Contac t Referred To Contact [facility] Diagnoses Peripheral arterial disease (HCC) Procedures PVR ANK PRESS [facility] NON-INVAS PHYSIOLOGIC STD EXTREMITY ART 2 LEVEL Sera Bruce MD [address] [place] [address] [facility] [place] [address] [address] Referral ID Status Reason Start Date Expiration Date Visits Requested Visits Authorized [id number] Authorized Auto-Generat ed Referral 09/05/2022 09/05/2023 1 1 * Outpatient Procedure (Routine) - Authorized Specialty Diagnoses / Procedures Referred By Contac t Referred To Contact [facility] Diagnoses Peripheral arterial disease (HCC) Procedures US LEG ARTERIAL PERIPH [facility] DUP-SCAN LXTR ART/ARTL BPGS COMPL BI STUDY Sera Bruce MD [address] [place] [address] [address] Referral ID Status Reason Start Date Expiration Date Visits Requested Visits Authorized [id number] Authorized Auto-Generat ed Referral 09/05/2022 09/05/2023 1 1 * Outpatient Procedure (Routine) - Authorized Specialty Diagnoses / Procedures Referred By Contac t Referred To Contact [facility] [place] Diagnoses Bilateral carotid artery stenosis Procedures US CAROTID ARTERIES [facility] DUPLEX SCAN EXTRACRANIAL ART COMPL BI STUDY Sera Bruce MD [address] [place] [address] [address] Referral ID Status Reason Start Date Expiration Date Visits Requested Visits Authorized [id number] Authorized Auto-Generat ed Referral 09/05/2022 09/05/2023 1 1 [facility] Outpatient Procedure (Routine) - Pending Review Specialty Diagnoses / Procedures Referred By Contac t Referred To Contact [facility] [place] Diagnoses Peripheral arterial disease (HCC) Procedures US POPLITEAL ARTERY [facility] NON-INVAS PHYSIOLOGIC STD EXTREMITY ART 2 LEVEL Sera Bruce MD [address] [place] [address] [address] Referral ID Status Reason Start Date Expiration Date Visits Requested Visits Authorized [id number] Pending Review Auto-Generat ed Referral 09/12/2022 09/12/2023 1 1 [facility] Summary Purpose Family History No Family History Records FoundNo Family History Records Found Advance Directives No Advanced Directives Records FoundDocuments on File Type Date Recorded Patient Telephone Triage Nurse Expl anation Advance Directive(s) 04/11/2020 7:46 AM Reason for Referral Specialty Diagnoses / Procedures Referred By Sean ireland Referred To Contact Podiatry Diagnoses Type 2 diabetes mellitus with diabetic polyneuropathy, without long-term current use of insulin (HCC) PAD (peripheral artery disease) (HCC) Procedures CONSULT TO PODIATRY OFFICE/OUTPATIENT [facility] 60-74 MINUTES Harlan Miller, DO [address] [place] [address] Referral ID Status Reason Start Date Expiration Date Visits Requested Visits Authorized [id number] Authorized PCP Requested Referral 11/13/2022 11/13/2023 1 1 Specialty Diagnoses / Procedures Referred By Sean ireland Referred To Contact Vascular Surgery Diagnoses PAD (peripheral artery disease) (HCC) Procedures CONSULT TO VASCULAR SURGERY OFFICE/OUTPATIENT [facility] 60-74 MINUTES Harlan Miller, DO [address] [place] [address] Referral ID Status Reason Start Date Expiration Date V isits Requested Visits Authorized [id number] Closed PCP Requested Referral 08/22/2022 08/22/2023 1 1 Specialty Diagnoses / Procedures Referred By Sean ireland Referred To Contact CT IMAGING Diagnoses Mass of left side of neck Procedures CT NECK SOFT TISSUE WO IVCON CT SOFT TISSUE NECK W/O CONTRAST MATERIAL Harlan Miller, DO [address] [place] [address] Ct Imaging Referral ID Status Reason Start Date Expiration Date Visits Requested Visits Authorized [id number] Authorized Auto-Generat ed Referral 08/08/2022 09/07/2023 1 1 Specialty Diagnoses / Procedures Referred By Sean ireland [facility] Diagnoses Decreased pulses in feet Procedures PVR ANK PRESS [facility] NON-INVAS PHYSIOLOGIC STD EXTREMITY ART 2 LEVEL Harlan Miller, DO [address] [place] [address] [facility] [address] [place] [address] Referral ID Status Reason Start Date Expiration Date Visits Requested Visits Authorized [id number] Authorized Auto-Generat ed Referral 08/08/2022 08/08/2023 1 1 Additional Source Comments (unrecognized sect ion and content) No Status Records FoundNo Status Records Found INFORMATION SOURCE (unrecogn ized section and content) DATE CREATED AUTHOR AUTHOR'S TE CERVANTES 07/21/2023 [facility] Source Comments (unrecognize d section and content) In the event this informatio n is protected by the Federal Confidentiality of Alcohol and Drug Abuse Patient Records regulations: The Federal rules restrict any use of the information to criminally investigate or prosecute any alcohol or drug abuse patient.[facility] the event this information is protected by the Federal Confidentiality of Alcohol and Drug Abuse Patient Records regulations: The Federal rules restrict any use of the information to criminally investigate or prosecute any alcohol or drug abuse patient.[facility] the event this information is protected by the Federal Confidentiality of Alcohol and Drug Abuse Patient Records regulations: The Federal rules restrict any use of the information to criminally investigate or prosecute any alcohol or drug abuse patient.[facility] the event this information is protected by the Federal Confidentiality of Alcohol and Drug Abuse Patient Records regulations: The Federal rules restrict any use of the information to criminally investigate or prosecute any alcohol or drug abuse patient.[facility] the event this information is protected by the Federal Confidentiality of Alcohol and Drug Abuse Patient Records regulations: The Federal rules restrict any use of the information to criminally investigate or prosecute any alcohol or drug abuse patient.[facility] the event this information is protected by the Federal Confidentiality of Alcohol and Drug Abuse Patient Records regulations: The Federal rules restrict any use of the information to criminally investigate or prosecute any alcohol or drug abuse patient.[facility] the event this information is protected by the Federal Confidentiality of Alcohol and Drug Abuse Patient Records regulations: The Federal rules restrict any use of the information to criminally investigate or prosecute any alcohol or drug abuse patient.[facility] the event this information is protected by the Federal Confidentiality of Alcohol and Drug Abuse Patient Records regulations: The Federal rules restrict any use of the information to criminally investigate or prosecute any alcohol or drug abuse patient.[facility] the event this information is protected by the Federal Confidentiality of Alcohol and Drug Abuse Patient Records regulations: The Federal rules restrict any use of the information to criminally investigate or prosecute any alcohol or drug abuse patient.[facility] the event this information is protected by the Federal Confidentiality of Alcohol and Drug Abuse Patient Records regulations: The Federal rules restrict any use of the information to criminally investigate or prosecute any alcohol or drug abuse patient.[facility] the event this information is protected by the Federal Confidentiality of Alcohol and Drug Abuse Patient Records regulations: The Federal rules restrict any use of the information to criminally investigate or prosecute any alcohol or drug abuse patient.[facility] the event this information is protected by the Federal Confidentiality of Alcohol and Drug Abuse Patient Records regulations: The Federal rules restrict any use of the information to criminally investigate or prosecute any alcohol or drug abuse patient.[facility] the event this information is protected by the Federal Confidentiality of Alcohol and Drug Abuse Patient Records regulations: The Federal rules restrict any use of the information to criminally investigate or prosecute any alcohol or drug abuse patient.[facility] the event this information is protected by the Federal Confidentiality of Alcohol and Drug Abuse Patient Records regulations: The Federal rules restrict any use of the information to criminally investigate or prosecute any alcohol or drug abuse patient.[facility] the event this information is protected by the Federal Confidentiality of Alcohol and Drug Abuse Patient Records regulations: The Federal rules restrict any use of the information to criminally investigate or prosecute any alcohol or drug abuse patient.[facility] the event this information is protected by the Federal Confidentiality of Alcohol and Drug Abuse Patient Records regulations: The Federal rules restrict any use of the information to criminally investigate or prosecute any alcohol or drug abuse patient.[facility] the event this information is protected by the Federal Confidentiality of Alcohol and Drug Abuse Patient Records regulations: The Federal rules restrict any use of the information to criminally investigate or prosecute any alcohol or drug abuse patient.[facility] the event this information is protected by the Federal Confidentiality of Alcohol and Drug Abuse Patient Records regulations: The Federal rules restrict any use of the information to criminally investigate or prosecute any alcohol or drug abuse patient.[facility] the event this information is protected by the Federal Confidentiality of Alcohol and Drug Abuse Patient Records regulations: The Federal rules restrict any use of the information to criminally investigate or prosecute any alcohol or drug abuse patient.[facility] the event this information is protected by the Federal Confidentiality of Alcohol and Drug Abuse Patient Records regulations: The Federal rules restrict any use of the information to criminally investigate or prosecute any alcohol or drug abuse patient.[facility] the event this information is protected by the Federal Confidentiality of Alcohol and Drug Abuse Patient Records regulations: The Federal rules restrict any use of the information to criminally investigate or prosecute any alcohol or drug abuse patient.[facility] the event this information is protected by the Federal Confidentiality of Alcohol and Drug Abuse Patient Records regulations: The Federal rules restrict any use of the information to criminally investigate or prosecute any alcohol or drug abuse patient.[facility] the event this information is protected by the Federal Confidentiality of Alcohol and Drug Abuse Patient Records regulations: The Federal rules restrict any use of the information to criminally investigate or prosecute any alcohol or drug abuse patient.[facility] the event this information is protected by the Federal Confidentiality of Alcohol and Drug Abuse Patient Records regulations: The Federal rules restrict any use of the information to criminally investigate or prosecute any alcohol or drug abuse patient.[facility] the event this information is protected by the Federal Confidentiality of Alcohol and Drug Abuse Patient Records regulations: The Federal rules restrict any use of the information to criminally investigate or prosecute any alcohol or drug abuse patient.[facility] Reason for Visit (unrecogniz ed section and content) Reason Comments Refill Request Reason Onset Date Comments Refill Request 01/01/2022 Reason Onset Date Comments Refill Request 01/02/2022 Reason Comments Diabetes Leg Cramps calf pain x couple m onths Reason Comments Results Reason Comments 6 Month Exam Reason Comments Results Reason Comments New Patient Specialty Diagnoses / Procedures Referred By Sean ireland Referred To Contact Vascular Surgery Diagnoses PAD (peripheral artery disease) (HCC) Procedures CONSULT TO VASCULAR SURGERY OFFICE/OUTPATIENT NEW HIGH MDM 60-74 MINUTES Harlan Miller, DO [address] [place] [address] Referral ID Status Reason Start Date Expiration Date V isits Requested Visits Authorized [id number] Closed PCP Requested Referral 08/22/2022 08/22/2023 1 1 Reason Comments Release Of Medical Records Reason Comments Hospital Follow Up Stroke, requesting n ote to return to work Reason Comments Orders Reason Comments F/U 3 Month Reason Comments requesting handicap placard rx Reason Onset Date Comments Refill Request 12/05/2022 Reason Onset Date Comments Refill Request 01/15/2023 Reason Comments F/U 3 Month Reason Onset Date Comments Refill Request 02/21/2023 Reason Onset Date Comments Refill Request 03/22/2023 Care Teams (unrecognized sec tion and content) Statistical Analyst Relationship Specialty Start Date End Date Harlan Miller, DO [address] [place] [address] PCP - General Family Practice 02/19/17 Statistical Analyst Relationship Specialty Start Date End Date Harlan Miller DO [address] [place] [address] PCP - General Family Practice 02/19/17 Statistical Analyst Relationship Specialty Start Date End Date Harlan Miller, DO [address] [place] [address] PCP - General Family Practice 02/19/17 Statistical Analyst Relationship Specialty Start Date End Date Harlan Miller, DO [address] [place] [address] PCP - General Family Practice 02/19/17 Statistical Analyst Relationship Specialty Start Date End Date Harlan Miller, DO [address] [place] [address] PCP - General Family Practice 02/19/17 Statistical Analyst Relationship Specialty Start Date End Date Harlan Miller, DO [address] [place] [address] PCP - General Family Medicine 02/19/17 Statistical Analyst Relationship Specialty Start Date End Date Harlan Miller, DO [address] [place] [address] PCP - General Family Medicine 02/19/17 Statistical Analyst Relationship Specialty Start Date End Date Harlan Miller, DO [address] [place] [address] PCP - General Family Medicine 02/19/17 Statistical Analyst Relationship Specialty Start Date End Date Harlan Miller, DO [address] [place] [address] PCP - General Family Medicine 02/19/17 Statistical Analyst Relationship Specialty Start Date End Date Harlan Miller, DO [address] [place] [address] PCP - General Family Medicine 02/19/17 Statistical Analyst Relationship Specialty Start Date End Date Harlan Miller, DO [address] [place] [address] PCP - General Family Medicine 02/19/17 Statistical Analyst Relationship Specialty Start Date End Date Harlan Miller, DO [address] [place] [address] PCP - General Family Medicine 02/19/17 Statistical Analyst Relationship Specialty Start Date End Date Harlan Miller, DO [address] [place] [address] PCP - General Family Medicine 02/19/17 Statistical Analyst Relationship Specialty Start Date End Date Harlan Miller, DO [address] [place] [address] PCP - General Family Medicine 02/19/17 Statistical Analyst Relationship Specialty Start Date End Date Harlan Miller, DO [address] [place] [address] PCP - General Family Medicine 02/19/17 Statistical Analyst Relationship Specialty Start Date End Date Harlan Miller DO [address] [facility] [place] [address] PCP - General Family Medicine 02/19/17 Statistical Analyst Relationship Specialty Start Date End Date Harlan Miller DO [address] [facility] [place] [address] PCP - General Family Medicine 02/19/17 Statistical Analyst Relationship Specialty Start Date End Date Harlan Miller DO [address] [facility] [place] [address] PCP - General Family Medicine 02/19/17 Statistical Analyst Relationship Specialty Start Date End Date Harlan Miller DO [address] [facility] [place] [address] PCP - General Family Medicine 02/19/17 Statistical Analyst Relationship Specialty Start Date End Date Harlan Miller DO [address] [facility] [place] [address] PCP - General Family Medicine 02/19/17 Statistical Analyst Relationship Specialty Start Date End Date Harlan Miller DO [address] [facility] [place] [place] [address] PCP - General Family Medicine 02/19/17 Statistical Analyst Relationship Specialty Start Date End Date Harlan Miller DO [address] [facility] [place] [address] PCP - General Family Medicine 02/19/17 FOR RECORDS PERTAINING TO PATIENTS WHO ARE OR HAVE BEEN ENROLLED IN A CHEMICAL DEPENDENCY/SUBSTANCEABUSE PROGRAM, SOME INFORMATION MAY BE OMITTED. This clinical summary was aggregated from multiple sources. Caution should be exercised in using it in the provision of clinical care. This summary normalizes information from multiple sources, and as a consequence, information in this document may materially change the coding, format and clinical context of patient data. In addition, data may be omitted in some cases. CLINICAL DECISIONS SHOULD BE BASED ON THE PRIMARY CLINICAL RECORDS. [facility]. provides no warranty or guarantee of the accuracy or completeness of information in this document.
[2023-08-06 14:31] LABS: International Normalized Ratio 1.1; Prothrombin Time (Protime)PT. 14.5 SECONDS (11.7-14.9)
[2023-08-06 14:54] LABS: AST(SGOT) 27 U/L (15-37); Alanine Aminotransfer ALT/SGPT 33 U/L (16-61); Albumin, Serum 3.7 g/dL (3.2-5.0); Alkaline Phosphatase 65 U/L (45-117); Anion Gap 4 (5-15); BUN 16 mg/dL (7-18); BUN/Creat Ratio 17.7 RATIO (10-20); Calcium,Total 9.6 mg/dL (8.5-10.1); Chloride 102 mmol/L (98-107); Cholesterol 163 mg/dL (200); EST Glomerular Filtration Rate 87 mL/min (>60); Est Glom Filt Rate - Afr Amer 105 mL/min (>60); Globulin 3.6 g/dL (2.2-4.2); Glucose 123 mg/dL (74-106); High Density Lipoprotein 42 mg/dL; Potassium 4.1 mmol/L (3.5-5.1); Protein, Total 7.3 g/dL (6.4-8.2); Sodium Level 135 mmol/L (136-145); Triglycerides 306 mg/dL; Very Low Density Lipoprotein 61 mg/dL (5-40)
== END 2023-08-06 18:00 | disposition home or self-care (01) ==
LOC: LAB 12:09
PROVIDERS: PCP Student in an Organized Health Care Education/Training Program; Referring Provider Physician Assistant Medical; Visit Provider Physician Assistant Medical
DX: I48.91 Unspecified atrial fibrillation (principal); Z79.01 Long term (current) use of anticoagulants; E78.00 Pure hypercholesterolemia, unspecified
CPT/HCPCS: 36415; 80053; 80061; 85610

== ENCOUNTER 2023-09-03 11:44 | Outpatient (RCR) | payer MEDICARE, OTHER, SELFPAY ==
[2023-08-13 11:53] LABS: International Normalized Ratio 1.2; Prothrombin Time (Protime)PT. 15.7 SECONDS (11.7-14.9)
[2023-08-20 13:58] LABS: International Normalized Ratio 2.1
[2023-08-27 10:00] LABS: Absolute Neutrophil Count 2.2 X10^3/uL (2.0-7.7); Basophil# 0.02 X10^3/uL; Basophil% 0.7 % (0-1); Eosinophil# 0.05 X10^3/uL; Eosinophils% 1.7 % (0-5); Hematocrit 41.2 % (40-54); Lymphocyte % 13.4 % (19-41); Mean Corpuscular Hgb 31.8 pg (27.0-32.0); Mean Corpuscular Volume 93.6 fL (80-94); Monocyte# 0.31 X10^3/uL; Monocyte% 10.4 % (0-10); NRBC Flagged by Analyzer 0 % (0-5); Neutrophil # 2.19 X10^3/uL (2.7-7.7); Neutrophil % 73.5 % (47-70); POSITIVE COUNT YES; POSITIVE DIFFERENTIAL YES; Platelet Count 73 K/mm3 (150-450); RBC Distribution Width CV 12.8 % (11.6-14.6); RBC Distribution Width SD 44.5 fl (35.1-43.9)
[2023-08-27 10:01] LABS: Prothrombin Time (Protime)PT. 31.6 SECONDS (11.7-14.9)
[2023-08-27 10:15] LABS: Differential Indicated SCAN CRITERIA MET
[2023-08-27 10:17] LABS: Vitamin B12 1331 pg/mL (211-911)
[2023-08-27 10:22] LABS: ALB/GLOB Ratio 1.2 RATIO (0.9-2.4); AST(SGOT) 30 U/L (15-37); Alanine Aminotransfer ALT/SGPT 30 U/L (16-61); Albumin, Serum 3.8 g/dL (3.2-5.0); Alkaline Phosphatase 67 U/L (45-117); Anion Gap 7 (5-15); BUN 19 mg/dL (7-18); BUN/Creat Ratio 17.8 RATIO (10-20); Calcium,Total 9.6 mg/dL (8.5-10.1); Chloride 103 mmol/L (98-107); Creatinine, Serum 1.07 mg/dL (0.70-1.30); EST Glomerular Filtration Rate 71 mL/min (>60); Est Glom Filt Rate - Afr Amer 86 mL/min (>60); Globulin 3.2 g/dL (2.2-4.2); Glucose 111 mg/dL (74-106); Sodium Level 138 mmol/L (136-145); Thyroid Stim Hormone (TSH) 2.05 uIU/mL (0.358-3.74)
[2023-08-27 11:22] LABS: Hemoglobin A1c 7.4 % (3.8-5.6)
[2023-08-28 12:31] LABS: Pathologist Review Reviewed
[2023-09-03 12:30] LABS: International Normalized Ratio 2.5; Prothrombin Time (Protime)PT. 26.8 SECONDS (11.7-14.9)
== END 2023-09-05 18:00 | disposition home or self-care (01) ==
LOC: LAB 11:44
PROVIDERS: PCP Student in an Organized Health Care Education/Training Program; Referring Provider Physician Assistant Medical; Visit Provider Physician Assistant Medical
DX: E11.42 Type 2 diabetes mellitus with diabetic polyneuropathy (principal); G62.89 Other specified polyneuropathies; I48.91 Unspecified atrial fibrillation; Z79.01 Long term (current) use of anticoagulants
CPT/HCPCS: 36415; 80053; 82607; 83036; 84443; 85025; 85610

== ENCOUNTER → 2023-09-24 | Outpatient (CLI) | payer MEDICARE, OTHER, SELFPAY ==
--- NOTE | 2023-09-24 12:41 | CDU_ITS ---
Reason For Study: s/p R CEA Rt. Velocities/BP Lt. Velocities/BP Prox CCA 100.3/8.0 cm/sec. Prox CCA 126.8/13.9 cm/sec. Mid CCA 102.5/10.2 cm/sec. Mid CCA 103.5/13.9 cm/sec. Dist CCA 103.6/9.1 cm/sec. Dist CCA 115.8/15.1 cm/sec. Prox ICA 46.6/6.0 cm/sec. Prox ICA 102.3/11.4 cm/sec. Mid ICA 46.6/11.6 cm/sec. Mid ICA 87.6/7.7 cm/sec. Dist ICA 62.6/18.2 cm/sec. Dist ICA 65.4/15.1 cm/sec. Rt. ICA/CCA = .6. Lt. ICA/CCA = 1.0. Prox ECA 87.2/6.9 cm/sec. Prox ECA 93.7/10.2 cm/sec. Rt. Vert. 40.0/8.8 cm/sec. Lt. Vert. 53.1/10.2 cm/sec. Right Extracranial There is heterogeneous, irregular atherosclerotic plaque noted in the right common carotid artery. There is intimal thickening but no significant atherosclerotic plaque noted in the right internal carotid artery. There is intimal thickening but no significant atherosclerotic plaque noted in the right external carotid artery. Antegrade flow is noted in the right vertebral artery. Left Extracranial There is heterogeneous, irregular atherosclerotic plaque noted in the left common carotid artery. There is heterogeneous, irregular atherosclerotic plaque noted in the left internal carotid artery. There is heterogeneous, irregular atherosclerotic plaque noted in the left external carotid artery. Antegrade flow is noted in the left vertebral artery. Procedure Carotid Duplex 71462. This is a Carotid Duplex examination using B-mode, color flow and specral Doppler. The exam was diagnostic. Exam performed in department. VL/Carotid Duplex Ultrasound Interpretation Summary Normal right extracranial internal carotid. Mild (<50%) stenosis left extracranial internal carotid. Patent and antegrade vertebrals bilaterally. Ordering Physician: Nellie Morris Performed By: Chris Mac RVT
== END | disposition home or self-care (01) ==
LOC: CVS 12:40
PROVIDERS: PCP Student in an Organized Health Care Education/Training Program; Referring Provider Physician Assistant; Visit Provider Physician Assistant
DX: I65.23 Occlusion and stenosis of bilateral carotid arteries (principal)
CPT/HCPCS: 93880

== ENCOUNTER 2023-10-01 10:57 | Outpatient (RCR) | payer MEDICARE, OTHER, SELFPAY ==
[2023-09-17 11:37] LABS: International Normalized Ratio 2.6; Prothrombin Time (Protime)PT. 27.5 SECONDS (11.7-14.9)
[2023-10-01 11:36] LABS: International Normalized Ratio 2.1; Prothrombin Time (Protime)PT. 23.2 SECONDS (11.7-14.9)
== END 2023-10-06 01:09 | disposition home or self-care (01) ==
LOC: LAB 10:57
PROVIDERS: PCP Student in an Organized Health Care Education/Training Program; Referring Provider Physician Assistant Medical; Visit Provider Physician Assistant Medical
DX: I48.91 Unspecified atrial fibrillation; Z79.01 Long term (current) use of anticoagulants
CPT/HCPCS: 36415; 85610

== ENCOUNTER 2023-10-29 10:25 | Outpatient (RCR) | payer MEDICARE, OTHER, SELFPAY ==
[2023-10-17 11:26] LABS: International Normalized Ratio 2.1; Prothrombin Time (Protime)PT. 23.4 SECONDS (11.7-14.9)
[2023-10-29 11:07] LABS: International Normalized Ratio 2.8; Prothrombin Time (Protime)PT. 29.6 SECONDS (11.7-14.9)
== END 2023-11-05 23:43 | disposition home or self-care (01) ==
LOC: LAB 10:25
PROVIDERS: PCP Student in an Organized Health Care Education/Training Program; Referring Provider Physician Assistant Medical; Visit Provider Physician Assistant Medical
DX: I48.91 Unspecified atrial fibrillation; Z79.01 Long term (current) use of anticoagulants
CPT/HCPCS: 36415; 85610

== ENCOUNTER 2023-11-11 10:57 | Outpatient (RCR) | payer MEDICARE, OTHER, SELFPAY ==
[2023-11-11 11:24] LABS: International Normalized Ratio 2.9; Prothrombin Time (Protime)PT. 30.2 SECONDS (11.7-14.9)
== END 2023-12-03 18:00 | disposition home or self-care (01) ==
LOC: LAB 10:57
PROVIDERS: PCP Student in an Organized Health Care Education/Training Program; Referring Provider Physician Assistant Medical; Visit Provider Physician Assistant Medical
DX: I48.91 Unspecified atrial fibrillation; Z79.01 Long term (current) use of anticoagulants
CPT/HCPCS: 36415; 85610

== ENCOUNTER 2023-12-10 10:14 | Outpatient (RCR) | payer MEDICARE, OTHER, SELFPAY ==
[2023-12-10 10:38] LABS: International Normalized Ratio 2.2; Prothrombin Time (Protime)PT. 24.1 SECONDS (11.7-14.9)
== END 2023-12-10 18:00 | disposition home or self-care (01) ==
LOC: LAB 10:14
PROVIDERS: PCP Student in an Organized Health Care Education/Training Program; Referring Provider Physician Assistant Medical; Visit Provider Physician Assistant Medical
DX: I48.91 Unspecified atrial fibrillation; Z79.01 Long term (current) use of anticoagulants
CPT/HCPCS: 36415; 85610

== ENCOUNTER → 2023-12-13 | Outpatient (CLI) | payer MEDICARE, OTHER, SELFPAY ==
--- NOTE | 2023-12-13 08:52 | ART_ITS ---
Reason For Study: PVD Procedure A bilateral lower extremity continuous wave Doppler with analog waveform analysis,segmental pressures,and ankle brachial indexes without exercise. Left Segmental Pressures Left brachial= 136mmHg. Left posterior tibial artery = 153mmHg. Left dorsalis pedis artery = 127mmHg. Left digit = 73 mmHg. The left dorsalis pedis waveforms are triphasic. The left posterior tibial artery waveforms are triphasic. Right Segmental Pressures Right brachial= 149mmHg. Right thigh = 151mmHg. Right calf = 134mmHg. Right posterior tibial artery = 99mmHg. Right dorsalis pedis artery = 117mmHg. Right digit = 78 mmHg. The right dorsalis pedis waveforms are biphasic. The right posterior tibial artery waveforms are biphasic. Indices The right ankle brachial index by the dorsalis pedis is 0.79. The right ankle brachial index by the posterior tibial artery is 0.66. The right digital-brachial index is 0.52. The left ankle brachial index by the dorsalis pedis is 0.85. The left ankle brachial index by the posterior tibial artery is 1.03. The left digital-brachial index is 0.49. VL/Lower Ext Art Exam w/o Exercis Interpretation Summary Right BRANDT 0.79, moderate arterial insufficiency. Doppler/PVR waveforms and segm ental pressures reveal infrapopliteal disease. Left BRANDT 1.03, normal. Doppler/PVR waveforms of the left leg normal at rest. TB I diminished, pedal/digit disease vs spasm Ordering Physician: Rylan Cee Referring Physician: Harlan Ford DO Performed By: Karla Boss RVT and Student
== END | disposition home or self-care (01) ==
LOC: CVS 08:51
PROVIDERS: PCP Student in an Organized Health Care Education/Training Program; Referring Provider Podiatrist; Visit Provider Podiatrist
DX: I73.89 Other specified peripheral vascular diseases (principal)
CPT/HCPCS: 93923

== ENCOUNTER 2024-01-23 10:30 | Outpatient (RCR) | payer MEDICARE, OTHER, SELFPAY ==
--- NOTE | 2024-01-02 11:14 | HP.PTEVAL_ITS ---
Patient's Visit Information Visit Information Visit Information: LARA SOLANO is a 78 year old M referred to Physical Therapy by Dr. Ag Ledesma MD with a diagnosis of Neuropathy and poor balance. Date of Evaluation: 01/02/24 Physical Therapist: Ag Avilez Visit Plan Frequency: 2x /Week Duration: 6 Weeks Plan: Continue with improving LE strength, endurance, and balance. Subjective Subjective: Pt. is a 78 y.o. male who had a stroke in September of 2022 and his balance as been worse since then. He also has neuropathy which he has a several of years. Pt. does not use an assistive device. He has constant numbness and tingling in both of his legs from his calf to his feet. Pt. has had one fall in the last six months when he fell last week outside when he tripped over root. Pt. has difficulty with walking, walking on uneven ground, ascending/descending stairs, squatting, and yard work. 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 His goal with physical therapy is to get rid of the tingling in his feet and improve his balance. He has had previous physical therapy for his knee. His PMH includes type II diabetes, skin cancer, left TKR, gall bladder removed, double hernia surgery, and stroke. Pt. lives with his in a one story home with basement. His hobbies include spending time at [employer], working on his computer, and watching tv. Objective Objective: Hip PROM- WNL bilaterally Left LE strength hip flexion 5/5, abduction 4+/5, adduction 5/5, extension 4+/5, knee flexion 5/5, knee extension 4+/5, ankle DF 5/5, ankle PF 5/5 Right LE strength hip flexion 5/5, abduction 4+/5, adduction 5/5, extension 4+/5, knee flexion 5/5, knee extension 4+/5, ankle DF 5/5, ankle PF 5/5 Sensation- Mild decreased sensation of bilateral feet. Tandem stance right unable, left unable SLS right unable, left unable mCTSIB- 1- 15%, 2- 51%, 3- 7%, 4- 5% Gait- Pt. ambulates with wider base of support. Stairs- Pt. ascends/descends stairs with alternating step pattern and unilateral handrail. Balance/Special Test Scores Lower Extremity Functional Score: 43 Goals Goal 1:: Pt. will report no falls. Goal Time Frame: 4-6 Weeks Goal 2:: Pt. will be able to walk at least 20 minutes with no rest break in order to improve endurance. Goal Time Frame: 4-6 Weeks Goal 3:: Pt. will improve tandem stance > 15 secs in order to improve stability and balance. Goal Time Frame: 4-6 Weeks Goal 4:: Pt. will improve mCTSIB condition 2 by at least 5% in order to improve stability and balance. Goal Time Frame: 4-6 Weeks Goal 5:: Pt. will improve LEFS <40% disability in order to improve stability and balance. Goal Time Frame: 4-6 Weeks Rehabilitation Potential Physical Therapy Diagnosis: LE weakness, difficulty walking, balance impairment, and impaired sensation Rehabilitation Potential: Good Anticipated Interventions Patient/Client Instruction: Educate patient on: Condition, Plan of Care and Benefits of Fitness Program For the Purpose of:: To improve ability to perform ADL's, To improve performance and independence with ADL's, To improve endurance, To improve balance and To improve tolerance to ADL's Therapeutic Exercise to Include: Strength training, Balance training and Gait and locomotor training Comment: Continue with improving LE strength, endurance, and balance. For the Purpose of:: To improve ability to perform ADL's, To improve performance and independence with ADL's, To improve endurance, To improve balance, To assume or resume ADL's and To improve tolerance to ADL's Functional Training to Include: ADL Training and Gait training For the Purpose of:: To improve ability to perform ADL's, To improve performance and independence with ADL's, To improve endurance, To improve balance, To assume or resume ADL's and To improve tolerance to ADL's Assistive Devices: Cane For the Purpose of:: To improve ability to perform ADL's, To improve performance and independence with ADL's, To improve endurance, To improve balance, To assume or resume ADL's and To improve tolerance to ADL's Text: Thank you for the opportunity to evaluate your patient. For Medicare and Medicare HMO plans, please review the plan of care and approve it. It will need to be FAXED BACK to us at [phone] for Medicare purposes. For Medicare only, by signing this I certify the plan of care. Please let me know if there are questions or concerns regarding this plan of care. Physician Signature: Date:
--- NOTE | 2024-01-23 13:00 | HP.PTREVAL_ITS ---
Re-Evaluation Intro: Dr. Ag Ledesma MD, It has been my pleasure to treat LARA SOLANO over the last 7 visits for Neuropathy and poor balance. Please see the progress note below for an update on the physical therapy plan of care! Subjective Subjective: His calves are feeling better and can tolerate it now. He feels like he is not veering as much. He still veers when he is tired. He has Silver Sneakers and will start on Mondays. Objective Objective/Function: CATSIB 120/120 FGA 18 Plan Plan Plan: +++ Continue with what we are doing and slowly add over next 5 visits machines to transfer to [facility]. (leg press, seated hip abd, Hamstring etc). Work on hip and ankle strength, functional balance including side step ups and sit to stand to upright hip ext balance with HEP Continue with improving LE strength, endurance, and balance. Balance/Gait/Functional tests Balance/Special Test Scores Functional Gait Assessment Score: 18 % Disability: 40.0000 CATSIB Score (Max score 120 seconds): 120 Lower Extremity Functional Score: 50 Goals Goals Goal 1:: Pt. will report no falls. Goal Time Frame: 4-6 Weeks Goal Progress: Goal Met Goal 2:: Pt. will be able to walk at least 20 minutes with no rest break in order to improve endurance. Goal Time Frame: 4-6 Weeks Goal Progress: Goal Met Goal 3:: Pt. will improve tandem stance > 15 secs in order to improve stability and balance. Goal Time Frame: 4-6 Weeks Goal 4:: Pt. will improve mCTSIB condition 2 by at least 5% in order to improve stability and balance. Goal Time Frame: 4-6 Weeks Goal Progress: Goal Met Goal 5:: Pt. will improve LEFS <40% disability in order to improve stability and balance. Goal Time Frame: 4-6 Weeks Goal 6:: Pt will improve FGA by 3 points (score at eval was 13) Goal Progress: Goal Met Anticipated Interventions Anticipated Interventions Patient/Client Instruction: Educate patient on: Condition, Plan of Care and Benefits of Fitness Program For the Purpose of:: To improve ability to perform ADL's, To improve performance and independence with ADL's, To improve endurance, To improve balance and To improve tolerance to ADL's Therapeutic Exercise to Include: Strength training, Balance training and Gait and locomotor training Comment: Continue with improving LE strength, endurance, and balance. For the Purpose of:: To improve ability to perform ADL's, To improve performance and independence with ADL's, To improve endurance, To improve balance, To assume or resume ADL's and To improve tolerance to ADL's Functional Training to Include: ADL Training and Gait training For the Purpose of:: To improve ability to perform ADL's, To improve performance and independence with ADL's, To improve endurance, To improve balance, To assume or resume ADL's and To improve tolerance to ADL's Assistive Devices: Cane For the Purpose of:: To improve ability to perform ADL's, To improve performance and independence with ADL's, To improve endurance, To improve balance, To assume or resume ADL's and To improve tolerance to ADL's Re-Evaluation Ending Re-evaluation ending: Please do not hesitate to contact me at [phone] by phone or if you have questions or concerns regarding this new plan of care! Sincerely, Thao Aguero MPT
--- NOTE | 2024-04-22 10:30 | HP.PTDCSUM_ITS ---
Discharge Summary D/C summary: It has been my pleasure to treat LARA SOLANO referred by Dr. Ag Ledesma MD, with the diagnosis of Neuropathy and poor balance for a total of 7 visit(s). Discharge Date: 01/23/24 Please see the following information for a summary of their discharge status. Subjective Subjective: His calves are feeling better and can tolerate it now. He feels like he is not veering as much. He still veers when he is tired. He has Silver Sne braden and will start on Mondays. Pain bilat calves: Pain Intensity (Out of 10): 6 feet: Pain Intensity (Out of 10): 0 Overall Improvement % Improvement: 40 Objective Objective/Function: CATSIB 120/120 FGA 18 Goals Goal 1:: Pt. will report no falls. Goal Progress: Goal Met Goal 2:: Pt. will be able to walk at least 20 minutes with no rest break in order to improve endurance. Goal Progress: Goal Met Goal 3:: Pt. will improve tandem stance > 15 secs in order to improve stability and balance. Goal 4:: Pt. will improve mCTSIB condition 2 by at least 5% in order to improve stability and balance. Goal Progress: Goal Met Goal 5:: Pt. will improve LEFS <40% disability in order to improve stability and balance. Goal 6:: Pt will improve FGA by 3 points (score at eval was 13) Goal Progress: Goal Met Plan Plan: +++ Continue with what we are doing and slowly add over next 5 visits machines to transfer to [facility]. (leg press, seated hip abd, Hamstring etc). Work on hip and ankle strength, functional balance including side step ups and sit to stand to upright hip ext balance with HEP Continue with improving LE strength, endurance, and balance. D/C Information Discharge Comments: DC PT to HEP/gym routine d/c sentence: If there are questions or concerns regarding this patient's physical therapy, please feel free to call me at [phone]. Thank you for the referral of this patient. Sincerely, Thao Aguero, MPT Balance/Gait/Functional tests Balance/Special Test Scores Functional Gait Assessment Score: 18 % Disability: 40.0000 CATSIB Score (Max score 120 seconds): 120 Lower Extremity Functional Score: 50 Improvement % Improvement: 40
== END 2024-01-23 19:00 | disposition home or self-care (01) ==
LOC: PT 10:30
PROVIDERS: PCP Student in an Organized Health Care Education/Training Program; Referring Provider Anesthesiology; Visit Provider Anesthesiology
DX: E11.40 Type 2 diabetes mellitus with diabetic neuropathy, unspecified (principal); R26.81 Unsteadiness on feet
CPT/HCPCS: 97110; 97162; 97530

== ENCOUNTER 2024-02-04 09:01 | Outpatient (RCR) | payer MEDICARE, OTHER, SELFPAY ==
[2024-01-07 11:57] LABS: Prothrombin Time (Protime)PT. 22.1 SECONDS (11.7-14.9)
[2024-02-04 09:23] LABS: International Normalized Ratio 2.5; Prothrombin Time (Protime)PT. 26.8 SECONDS (11.7-14.9)
== END 2024-02-05 18:00 | disposition home or self-care (01) ==
LOC: LAB 09:01
PROVIDERS: PCP Student in an Organized Health Care Education/Training Program; Referring Provider Physician Assistant Medical; Visit Provider Physician Assistant Medical
DX: E11.42 Type 2 diabetes mellitus with diabetic polyneuropathy (principal); G62.89 Other specified polyneuropathies; I48.91 Unspecified atrial fibrillation; Z79.01 Long term (current) use of anticoagulants
CPT/HCPCS: 36415; 85610

== ENCOUNTER 2024-02-27 08:29 | Outpatient (RCR) | payer MEDICARE, OTHER, SELFPAY | END 2024-02-27 18:00 | disposition home or self-care (01) | LOC: LAB 08:29 | PROVIDERS: PCP Student in an Organized Health Care Education/Training Program; Referring Provider Physician Assistant Medical; Visit Provider Physician Assistant Medical | DX: E11.9 Type 2 diabetes mellitus without complications | CPT/HCPCS: 36415; 83036 ==

== ENCOUNTER 2024-04-07 09:16 | Outpatient (RCR) | payer MEDICARE, OTHER, SELFPAY ==
[2024-04-07 09:56] LABS: International Normalized Ratio 2.2; Prothrombin Time (Protime)PT. 24.2 SECONDS (11.7-14.9)
== END 2024-04-07 18:00 | disposition home or self-care (01) ==
LOC: LAB 09:16
PROVIDERS: PCP Student in an Organized Health Care Education/Training Program; Referring Provider Physician Assistant Medical; Visit Provider Physician Assistant Medical
DX: I48.91 Unspecified atrial fibrillation; Z79.01 Long term (current) use of anticoagulants
CPT/HCPCS: 36415; 85610

== ENCOUNTER 2024-06-01 10:57 | Outpatient (RCR) | payer MEDICARE, OTHER, SELFPAY ==
[2024-05-18 11:43] LABS: International Normalized Ratio 3.2; Prothrombin Time (Protime)PT. 32.6 SECONDS (11.7-14.9)
[2024-06-01 12:00] LABS: International Normalized Ratio 2.5; Prothrombin Time (Protime)PT. 26.6 SECONDS (11.7-14.9)
== END 2024-06-06 18:00 | disposition home or self-care (01) ==
LOC: LAB 10:57
PROVIDERS: PCP Student in an Organized Health Care Education/Training Program; Referring Provider Physician Assistant Medical; Visit Provider Physician Assistant Medical
DX: E11.42 Type 2 diabetes mellitus with diabetic polyneuropathy (principal); G62.89 Other specified polyneuropathies; I48.91 Unspecified atrial fibrillation; Z79.01 Long term (current) use of anticoagulants

== ENCOUNTER 2024-06-29 10:29 | Outpatient (RCR) | payer MEDICARE, OTHER, SELFPAY ==
[2024-06-29 11:30] LABS: International Normalized Ratio 2.5; Prothrombin Time (Protime)PT. 26.5 SECONDS (11.7-14.9)
== END 2024-06-29 18:00 | disposition home or self-care (01) ==
LOC: LAB 10:29
PROVIDERS: PCP Student in an Organized Health Care Education/Training Program; Referring Provider Physician Assistant Medical; Visit Provider Physician Assistant Medical
DX: I48.91 Unspecified atrial fibrillation; Z79.01 Long term (current) use of anticoagulants
CPT/HCPCS: 36415; 85610

== ENCOUNTER 2024-08-03 11:18 | Outpatient (RCR) | payer MEDICARE, OTHER, SELFPAY ==
[2024-07-27 12:24] LABS: International Normalized Ratio 1.2; Prothrombin Time (Protime)PT. 15.4 SECONDS (11.7-14.9)
[2024-08-03 12:18] LABS: Prothrombin Time (Protime)PT. 22.6 SECONDS (11.7-14.9)
== END 2024-08-03 18:00 | disposition home or self-care (01) ==
LOC: LAB 11:18
PROVIDERS: PCP Student in an Organized Health Care Education/Training Program; Referring Provider Physician Assistant Medical; Visit Provider Physician Assistant Medical
DX: Z79.01 Long term (current) use of anticoagulants; I48.91 Unspecified atrial fibrillation
CPT/HCPCS: 36415; 85610

== ENCOUNTER 2024-08-24 11:41 | Outpatient (RCR) | payer MEDICARE, OTHER, SELFPAY ==
[2024-08-17 12:36] LABS: International Normalized Ratio 1.8; Prothrombin Time (Protime)PT. 21.6 SECONDS (11.7-14.9)
[2024-08-24 12:55] LABS: Prothrombin Time (Protime)PT. 22.6 SECONDS (11.7-14.9)
== END 2024-09-04 18:00 | disposition home or self-care (01) ==
LOC: LAB 11:41
PROVIDERS: PCP Student in an Organized Health Care Education/Training Program; Referring Provider Physician Assistant Medical; Visit Provider Physician Assistant Medical
DX: E11.42 Type 2 diabetes mellitus with diabetic polyneuropathy (principal); G62.89 Other specified polyneuropathies; I48.91 Unspecified atrial fibrillation; Z79.01 Long term (current) use of anticoagulants
CPT/HCPCS: 36415; 85610

== ENCOUNTER 2024-09-07 13:40 | Outpatient (RCR) | payer MEDICARE, OTHER, SELFPAY ==
[2024-09-07 14:55] LABS: International Normalized Ratio 2.5; Prothrombin Time (Protime)PT. 27.6 SECONDS (11.7-14.9)
== END 2024-09-07 18:00 | disposition home or self-care (01) ==
LOC: LAB 13:40
PROVIDERS: PCP Student in an Organized Health Care Education/Training Program; Referring Provider Physician Assistant Medical; Visit Provider Physician Assistant Medical
DX: Z79.01 Long term (current) use of anticoagulants; I48.0 Paroxysmal atrial fibrillation
CPT/HCPCS: 36415; 85610

== ENCOUNTER → 2024-09-16 | Outpatient (CLI) | payer MEDICARE, OTHER, SELFPAY ==
--- NOTE | 2024-09-16 10:45 | CDU_ITS ---
Reason For Study Reason For Study: S/P R CEA Rt. Velocities/BP Lt. Velocities/BP Prox CCA 74.0/7.8 cm/sec. Prox CCA 87.2/9.1 cm/sec. Mid CCA 55.4/10.0 cm/sec. Mid CCA 75.1/8.0 cm/sec. Dist CCA 42.1/3.4 cm/sec. Dist CCA 90.6/12.1 cm/sec. Prox ICA 38.3/8.6 cm/sec. Prox ICA 155.2/15.3 cm/sec. Mid ICA 64.4/11.7 cm/sec. Mid ICA 104.2/17.4 cm/sec. Dist ICA 63.8/14.9 cm/sec. Dist ICA 51.7/4.7 cm/sec. Rt. ICA/CCA = 1.2. Lt. ICA/CCA = 2.1. Prox ECA 120.5/8.6 cm/sec. Prox ECA 168.2/0.0 cm/sec. Rt. Vert. 46.8/9.5 cm/sec. Lt. Vert. 31.9/5.8 cm/sec. Right Extracranial There is heterogeneous, irregular atherosclerotic plaque noted in the right common carotid artery. Vascularized structure noted in the Lt thryoid measuring 4.02x2.33cm. There is heterogeneous, irregular atherosclerotic plaque noted in the right internal carotid artery. There is heterogeneous, irregular atherosclerotic plaque noted in the right external carotid artery. Antegrade flow is noted in the right vertebral artery. Left Extracranial There is heterogeneous, irregular atherosclerotic plaque noted in the left common carotid artery. There is heterogeneous, irregular atherosclerotic plaque noted in the left internal carotid artery. There is heterogeneous, irregular atherosclerotic plaque noted in the left external carotid artery. Antegrade flow is noted in the left vertebral artery. VL/Carotid Duplex Ultrasound Interpretation Summary Mild (<50%) stenosis right extracranial internal carotid. Moderate (50-69%) stenosis left extracranial internal carotid. Patent and antegrade vertebrals bilaterally. Vascularized structure noted in the left thryoid measuring 4.02x2.33cm. Ordering Physician: Nellie Morris Referring Physician: Nellie Morris Performed By: Karla Boss RVT and Student
== END | disposition home or self-care (01) ==
LOC: CVS 10:44
PROVIDERS: PCP Student in an Organized Health Care Education/Training Program; Referring Provider Physician Assistant; Visit Provider Physician Assistant
DX: I65.21 Occlusion and stenosis of right carotid artery (principal); Z98.890 Other specified postprocedural states
CPT/HCPCS: 93880

== ENCOUNTER → 2024-10-06 | Outpatient (CLI) | payer MEDICARE, OTHER, SELFPAY ==
[2024-10-06 14:55] LABS: ALB/GLOB Ratio 1.6 RATIO (0.9-2.4); AST(SGOT) 40 U/L (<=37); Alanine Aminotransfer ALT/SGPT 25 U/L (<=46); Alkaline Phosphatase 52 U/L (40-129); Anion Gap 11 (5-15); BUN 18 mg/dL (4-19); BUN/Creat Ratio 18.9 RATIO (10-20); Calcium,Total 9.3 mg/dL (7.6-11.0); Carbon Dioxide 25.1 mmol/L (21.0-32.0); Chloride 103 mmol/L (98-108); Creatinine, Serum 0.96 mg/dL (0.70-1.20); EST Glomerular Filtration Rate 82 (>60); Globulin 2.5 g/dL (2.2-4.2); Glucose 262 mg/dL (70-99); Potassium 4.7 mmol/L (3.3-5.1); Protein, Total 6.6 g/dL (5.9-8.4); Sodium Level 139 mmol/L (133-145)
== END | disposition home or self-care (01) ==
LOC: LAB 13:39
PROVIDERS: PCP Student in an Organized Health Care Education/Training Program; Referring Provider Physician Assistant; Visit Provider Physician Assistant
DX: E04.1 Nontoxic single thyroid nodule (principal)
CPT/HCPCS: 36415; 80053; 84443

== ENCOUNTER → 2024-10-09 | Outpatient (CLI) | payer MEDICARE, OTHER, SELFPAY ==
--- NOTE | 2024-10-09 12:46 | US_ITS ---
PROCEDURE: THYROID 10/09/2024 REASON FOR EXAM: THYROID NODULE TECHNIQUE: Thyroid ultrasound COMPARISON: None. FINDINGS: Right thyroid lobe measures 5.2 x 2.3 x 2.5 cm. Left thyroid lobe measures 4.5 x 2.1 x 2.2 cm. Isthmus thickness is0.3 cm. Thyroid Size: Normal Background Echotexture: Homogeneous Thyroid Nodules: No suspicious nodules are identified Other: There is a mildly complex cystic lesion lateral to the left thyroid lobe measuring 4.4 x 3.3 x 2.5 cm without hypervascularity. There is an adjacent lymph node with a thickened cortex just superior to the cystic lesion. US/Thyroid IMPRESSION: No suspicious thyroid nodule. Mildly complex cystic lesion just lateral to the left thyroid lobe with abnormal lymph node. CT neck is recommended for further evaluation if not recently performed. Reading Location: [facility]
== END | disposition home or self-care (01) ==
LOC: US 12:45
PROVIDERS: PCP Student in an Organized Health Care Education/Training Program; Referring Provider Physician Assistant; Visit Provider Physician Assistant
DX: E04.1 Nontoxic single thyroid nodule (principal)
CPT/HCPCS: 76536

== ENCOUNTER 2024-10-12 10:30 | Outpatient (RCR) | payer MEDICARE, OTHER, SELFPAY ==
--- NOTE | 2024-07-13 11:34 | HP.PTEVAL_ITS ---
Patient's Visit Information Visit Information Visit Information: LARA SOLANO is a 78 year old M referred to Physical Therapy by Dr. Rylan Cee DPM with a diagnosis of Neuropathy. Date of Evaluation: 07/13/24 Physical Therapist: NATALIE England Visit Plan Frequency: 2x /Week Duration: 2 Months Plan: Use a gait belt at all times. Encouraged pt to use a cane. 2X/ week for 8 weeks for LE strength, ankle strength, gait training, balance training, functional balance with HEP Subjective Subjective: Pt reports that he is not sure why he is here. He just got a call from our front end web designer to come in for PT for balance and neuropathy. He reports that he has been having balance issues. He can not feel things in his feet and he was standing on his foot and went to turn and he flipped backwards and hurt his R shoulder and his thumb. He is going to his chiropractor this afternoon. He has only fallen that one time. Now he is nervous about falling. He is still doing the bike in the gym. He does not feel that his legs are weak. He only has one eye. He has a cane in his car. Pain R shoulder pain: Pain Intensity (Out of 10): 6 B feet N&T: Pain Intensity (Out of 10): 6 Objective Objective: Gait: Walks with decreased stance time on the L LE and some increase veering. Decrease DF with gait. Tight B calves Standing heel and toe raises: drastically decreased ROM both FGA: 7 CATSIB: 82/120 LE MMT: R hip flex 16 and L 15.1 R knee ext 24.2 and L 25 R knee flex 8.5 and L 10.7 R DF 4.1 and L 7.4 Encouraged pt to use a cane or rollator at all times due to severity of balance impairment Balance/Special Test Scores Functional Gait Assessment Score: 7 % Disability: 76.6700 CATSIB Score (Max score 120 seconds): 82 Lower Extremity Functional Score: 48 Goals Goal 1:: I HEP Goal Time Frame: 6-8 Weeks Goal 2:: Be able to increase muscle length of B calves Goal Time Frame: 6-8 Weeks Goal 3:: Increase balance (FGA was 7 at eval) Goal Time Frame: 6-8 Weeks Goal 4:: Increase balance (CATSIB was 82 at eval) Goal Time Frame: 6-8 Weeks Goal 5:: Increase LE strength (at time of the eval: LE MMT: R hip flex 16 and L 15.1 R knee ext 24.2 and L 25 R knee flex 8.5 and L 10.7 R DF 4.1 and L 7.4 Hip abd B 4-/5 Sit to stand: able to get up without use of her arms) Goal Time Frame: 6-8 Weeks Rehabilitation Potential Rehabilitation Potential: Good Anticipated Interventions Patient/Client Instruction: Educate patient on: Condition and Plan of Care For the Purpose of:: To increase ROM, To improve nutrient delivery to tissue, To improve muscle performance and motor function, To improve ability to perform ADL's, To increase tolerance to activity/condition/position, To improve performance and independence with ADL's, To decrease level of supervision to perform tasks, To improve ability of physical actions for home/community/work/leisure, To improve gait and locomotor functions, To improve health of tissue, To decrease soft tissue restriction, To increase flexibility/ROM, To improve balance and To improve safety with gait Therapeutic Exercise to Include: Strength training, Endurance training, Balance training, Body mechanics, Postural training, Flexibilty training, Gait and locomotor training, Neuromotor development, Passive ROM and Active ROM For the Purpose of:: To decrease pain, To increase ROM, To improve nutrient delivery to tissue, To improve muscle performance and motor function, To improve ability to perform ADL's, To increase tolerance to activity/condition/position, To improve performance and independence with ADL's, To decrease level of supervision to perform tasks, To improve ability of physical actions for home/community/work/leisure, To improve gait and locomotor functions, To increase flexibility/ROM, To improve endurance, To improve balance and To improve safety with gait Functional Training to Include: Gait training For the Purpose of:: To improve gait and locomotor functions, To increase flexibility/ROM, To improve endurance, To improve balance and To improve safety with gait Text: Thank you for the opportunity to evaluate your patient. For Medicare and Medicare HMO plans, please review the plan of care and approve it. It will need to be FAXED BACK to us at [phone] for Medicare purposes. For Medicare only, by signing this I certify the plan of care. Please let me know if there are questions or concerns regarding this plan of care. Physician Signature: Date:
--- NOTE | 2024-08-03 12:19 | HP.PTREVAL ---
Re-Evaluation Intro: Dr. Rylan Cee, DPEliel, It has been my pleasure to treat LARA SOLANO over the last 7 visits for Neuropathy/R shoulder pain. Please see the progress note below for an update on the physical therapy plan of care! Subjective Subjective: Pt fell on the Jun 11. It is not getting better. It is his R shoulder on the top and the elbow and he has a thumb trigger finger. He went in for the x-rays and did not have arthritis. He can lay on his L shoulder but it will wake him up. He has N&T in the upper shoulder. He reports that the pain moves around. He is not lifting or riding the bike with his R hand. Pt wants to hold off on the neuropathy therapy for now and concentrate on the shoulder Objective Objective/Function: R handed: UE AROM: R shoulder flex 131 and L 153 R shoulder ABD 123 and L 145 R shoulder IR L1 and L T8 R shoulder ER 51 and L 65 UE MMT: R shoulder flex 6.3 and L 10.1 R shoulder ABD 8.1 and L 10.4 R shoulder ER 10.2 and L 14.8 R shoulder IR 10 and L 10.5 PROM: pain at all end ranges. painful end feel Plan Plan Plan: HEP: green mid rows in sitting unless therapist there due to balance, supine wand flexion 2X/ week for 8 weeks for R shoulder PROM, AAROM, AROM, scapular and RC strength with HEP. May use US, MH and ice as needed Balance/Gait/Functional tests Balance/Special Test Scores Functional Gait Assessment Score: 7 % Disability: 76.6700 CATSIB Score (Max score 120 seconds): 82 Lower Extremity Functional Score: 48 Quick DASH Score: 50.0000 Goals Goals Goal 1:: I HEP Goal Time Frame: 6-8 Weeks Goal 2:: Increase R shoulder AROM painfree (R shoulder flex 131 and L 153 R shoulder ABD 123 and L 145 R shoulder IR L1 and L T8 R shoulder ER 51 and L 65) Goal Time Frame: 6-8 Weeks Goal 3:: Increase balance (FGA was 7 at eval) Goal Time Frame: 6-8 Weeks Goal 4:: Increase balance (CATSIB was 82 at eval) Goal Time Frame: 6-8 Weeks Goal 5:: Increase LE strength (at time of the eval: LE MMT: R hip flex 16 and L 15.1 R knee ext 24.2 and L 25 R knee flex 8.5 and L 10.7 R DF 4.1 and L 7.4 Hip abd B 4-/5 Sit to stand: able to get up without use of her arms) Goal Time Frame: 6-8 Weeks Goal 6:: Increase R shoulder strength (at the time of the eval: R shoulder flex 6.3 and L 10.1 R shoulder ABD 8.1 and L 10.4 R shoulder ER 10.2 and L 14.8 R shoulder IR 10 and L 10.5) Goal Time Frame: 6-8 Weeks Anticipated Interventions Anticipated Interventions Patient/Client Instruction: Educate patient on: Condition and Plan of Care For the Purpose of:: To increase ROM, To improve nutrient delivery to tissue, To improve muscle performance and motor function, To improve ability to perform ADL's, To increase tolerance to activity/condition/position, To improve performance and independence with ADL's, To decrease level of supervision to perform tasks, To improve ability of physical actions for home/community/work/leisure, To improve gait and locomotor functions, To improve health of tissue, To decrease soft tissue restriction, To increase flexibility/ROM, To improve balance and To improve safety with gait Therapeutic Exercise to Include: Strength training, Endurance training, Balance training, Body mechanics, Postural training, Flexibilty training, Gait and locomotor training, Neuromotor development, Passive ROM and Active ROM For the Purpose of:: To decrease pain, To increase ROM, To improve nutrient delivery to tissue, To improve muscle performance and motor function, To improve ability to perform ADL's, To increase tolerance to activity/condition/position, To improve performance and independence with ADL's, To decrease level of supervision to perform tasks, To improve ability of physical actions for home/community/work/leisure, To improve gait and locomotor functions, To increase flexibility/ROM, To improve endurance, To improve balance and To improve safety with gait Functional Training to Include: Gait training For the Purpose of:: To improve gait and locomotor functions, To increase flexibility/ROM, To improve endurance, To improve balance and To improve safety with gait Re-Evaluation Ending Re-evaluation ending: Please do not hesitate to contact me at [phone] by phone or if you have questions or concerns regarding this new plan of care! Sincerely, NATALIE England
--- NOTE | 2024-09-02 11:01 | HP.PTREVAL_ITS ---
Re-Evaluation Intro: Dr. Rylan Cee, DPM, It has been my pleasure to treat LARA SOLANO over the last 16 visits for Neuropathy/R shoulder pain. Please see the progress note below for an update on the physical therapy plan of care! Subjective Subjective: Pt reports that he is getting better but has some bad days still Objective Objective/Function: R shoulder flex 142 and L 153 R shoulder ABD 140 and L 145 R shoulder IR L1 and L T8 R shoulder ER 60 and L 65) R shoulder flex 10 and L 10.1 R shoulder ABD 10.8 and L 10.4 R shoulder ER 12.7 and L 14.8 R shoulder IR 10 and L 10.5) Plan Plan Plan: Start wrist extensor stretches and eccentric wrist ext exercises. 2X/ week for 8 weeks for R shoulder PROM, AAROM, AROM, scapular and RC strength with HEP. May use US, MH and ice as needed Balance/Gait/Functional tests Balance/Special Test Scores Functional Gait Assessment Score: 7 % Disability: 76.6700 CATSIB Score (Max score 120 seconds): 82 Lower Extremity Functional Score: 48 Quick DASH Score: 40.9075 Goals Goals Goal 1:: I HEP Goal Time Frame: 6-8 Weeks Goal 2:: Increase R shoulder AROM painfree (R shoulder flex 131 and L 153 R shoulder ABD 123 and L 145 R shoulder IR L1 and L T8 R shoulder ER 51 and L 65) Goal Time Frame: 6-8 Weeks Goal 3:: Increase balance (FGA was 7 at eval) Goal Time Frame: 6-8 Weeks Goal 4:: Increase balance (CATSIB was 82 at eval) Goal Time Frame: 6-8 Weeks Goal 5:: Increase LE strength (at time of the eval: LE MMT: R hip flex 16 and L 15.1 R knee ext 24.2 and L 25 R knee flex 8.5 and L 10.7 R DF 4.1 and L 7.4 Hip abd B 4-/5 Sit to stand: able to get up without use of her arms) Goal Time Frame: 6-8 Weeks Goal 6:: Increase R shoulder strength (at the time of the eval: R shoulder flex 6.3 and L 10.1 R shoulder ABD 8.1 and L 10.4 R shoulder ER 10.2 and L 14.8 R shoulder IR 10 and L 10.5) Goal Time Frame: 6-8 Weeks Anticipated Interventions Anticipated Interventions Patient/Client Instruction: Educate patient on: Condition and Plan of Care For the Purpose of:: To increase ROM, To improve nutrient delivery to tissue, To improve muscle performance and motor function, To improve ability to perform ADL's, To increase tolerance to activity/condition/position, To improve performance and independence with ADL's, To decrease level of supervision to perform tasks, To improve ability of physical actions for home/community/work/leisure, To improve gait and locomotor functions, To improve health of tissue, To decrease soft tissue restriction, To increase flexi bility/ROM, To improve balance and To improve safety with gait Therapeutic Exercise to Include: Strength training, Endurance training, Balance training, Body mechanics, Postural training, Flexibilty training, Gait and locomotor training, Neuromotor development, Passive ROM and Active ROM For the Purpose of:: To decrease pain, To increase ROM, To improve nutrient delivery to tissue, To improve muscle performance and motor function, To improve ability to perform ADL's, To increase tolerance to activity/condition/position, To improve performance and independence with ADL's, To decrease level of supervision to perform tasks, To improve ability of physical actions for home/community/work/leisure, To improve gait and locomotor functions, To increas e flexibility/ROM, To improve endurance, To improve balance and To improve safety with gait Functional Training to Include: Gait training For the Purpose of:: To improve gait and locomotor functions, To increase flexibility/ROM, To improve endurance, To improve balance and To improve safety with gait Re-Evaluation Ending Re-evaluation ending: Please do not hesitate to contact me at [phone] by phone or if you have questions or concerns regarding this new plan of care! Sincerely, Thao Aguero MPT
--- NOTE | 2024-09-21 10:58 | HP.PTREVAL_ITS ---
Re-Evaluation Intro: Dr. Rylan Cee, DPM, It has been my pleasure to treat LARA SOLANO over the last 21 visits for Neuropathy/R shoulder pain. Please see the progress note below for an update on the physical therapy plan of care! Subjective Subjective: Pt reports that he is doing well. He still has tightness at end range. He has pain when he reaches overhead and rates it as a 6-7/10. He feels that he is making progress but then some days he does not feel he is making progress. He does think that the US helps. Objective Objective/Function: R shoulder flex 9.5 and L 10.1 R shoulder ABD 8.2 and L 10.4 R shoulder ER 12.6 and L 14.8 R shoulder IR 11.7 and L 10.5) R shoulder flex 141 and L 153 R shoulder ABD 130 and L 145 R shoulder IR L1 and L T8 R shoulder ER 55 and L 65) Plan Plan Plan: 1X/ week for 3 weeks to advance HEP/Gym routine and continue with US and then probable DC Balance/Gait/Functional tests Balance/Special Test Scores Functional Gait Assessment Score: 7 % Disability: 76.6700 CATSIB Score (Max score 120 seconds): 82 Lower Extremity Functional Score: 48 Quick DASH Score: 40.9075 Goals Goals Goal 1:: I HEP Goal Time Frame: 6-8 Weeks Goal Progress: Goal Met Goal 2:: Increase R shoulder AROM painfree (R shoulder flex 131 and L 153 R shoulder ABD 123 and L 145 R shoulder IR L1 and L T8 R shoulder ER 51 and L 65) Goal Time Frame: 6-8 Weeks Goal 3:: Increase balance (FGA was 7 at eval) Goal Time Frame: 6-8 Weeks Goal 4:: Increase balance (CATSIB was 82 at eval) Goal Time Frame: 6-8 Weeks Goal 5:: Increase LE strength (at time of the eval: LE MMT: R hip flex 16 and L 15.1 R knee ext 24.2 and L 25 R knee flex 8.5 and L 10.7 R DF 4.1 and L 7.4 Hip abd B 4-/5 Sit to stand: able to get up without use of her arms) Goal Time Frame: 6-8 Weeks Goal 6:: Increase R shoulder strength (at the time of the eval: R shoulder flex 6.3 and L 10.1 R shoulder ABD 8.1 and L 10.4 R shoulder ER 10.2 and L 14.8 R shoulder IR 10 and L 10.5) Goal Time Frame: 6-8 Weeks Anticipated Interventions Anticipated Interventions Patient/Client Instruction: Educate patient on: Condition and Plan of Care For the Purpose of:: To increase ROM, To improve nutrient delivery to tissue, To improve muscle performance and motor function, To improve ability to perform ADL's, To increase tolerance to activity/condition/position, To improve performance and independence with ADL's, To decrease level of supervision to perform tasks, To improve ability of physical actions for home /community/work/leisure, To improve gait and locomotor functions, To improve health of tissue, To decrease soft tissue restriction, To increase flexibility/ROM, To improve balance and To improve safety with gait Therapeutic Exercise to Include: Strength training, Endurance training, Balance training, Body mechanics, Postural training, Flexibilty training, Gait and locomotor training, Neuromotor development, Passive ROM and Active ROM For the Purpose of:: To decrease pain, To increase ROM, To improve nutrient delivery to tissue, To improve muscle performance and motor function, To improve ability to perform ADL's, To increase tolerance to activity/condition/position, To improve performance and independence with ADL's, To decrease level of supe rvision to perform tasks, To improve ability of physical actions for home/community/work/leisure, To improve gait and locomotor functions, To increase flexibility/ROM, To improve endurance, To improve balance and To improve safety with gait Functional Training to Include: Gait training For the Purpose of:: To improve gait and locomotor functions, To increase flexibility/ROM, To improve endurance, To improve balance and To improve safety with gait Re-Evaluation Ending Re-evaluation ending: Please do not hesitate to contact me at [phone] by phone or if you have questions or concerns regarding this new plan of care! Sincerely, Thao Aguero, MPT
--- NOTE | 2024-10-12 11:11 | HP.PT.NRP ---
Patient Information Patient Information: LARA SOLANO was seen in my office for initial evaluation on 07/13/24. The following Plan of Care was established for this patient: POC Established Initial Frequency: 2x /Week Initial Duration: 2 Months Anticipated Interventions Patient/Client Instruction: Educate patient on: Condition and Plan of Care For the Purpose of:: To increase ROM, To improve nutrient delivery to tissue, To improve muscle performance and motor function, To improve ability to perform ADL's, To increase tolerance to activity/condition/position, To improve performance and independence with ADL's, To decrease level of supervision to perform tasks, To improve ability of physical actions for home/community/work/leisure, To improve gait and locomotor functions, To improve health of tissue, To decrease soft tissue restriction, To increase flexibility/ROM, To improve balance and To improve safety with gait Therapeutic Exercise to Include: Strength training, Endurance training, Balance training, Body mechanics, Postural training, Flexibilty training, Gait and locomotor training, Neuromotor development, Passive ROM and Active ROM For the Purpose of:: To decrease pain, To increase ROM, To improve nutrient delivery to tissue, To improve muscle performance and motor function, To improve ability to perform ADL's, To increase tolerance to activity/condition/position, To improve performance and independence with ADL's, To decrease level of supervision to perform tasks, To improve ability of physical actions for home/community/work/leisure, To improve gait and locomotor functions, To increase flexibility/ROM, To improve endurance, To improve balance and To improve safety with gait Functional Training to Include: Gait training For the Purpose of:: To improve gait and locomotor functions, To increase flexibility/ROM, To improve endurance, To improve balance and To improve safety with gait Last Seen Last Seen: This patient was last seen in our office . Pertinent comments regarding their Physical therapy will appear below: At this point I will be discontinuing this patient from physical therapy. I would be happy to see this patient again in the future if found appropriate by the physician. Thank you! Thao Aguero, NATALIE Balance/Gait/Functional tests Balance/Special Test Scores Functional Gait Assessment Score: 7 % Disability: 76.6700 CATSIB Score (Max score 120 seconds): 82 Lower Extremity Functional Score: 38 Quick DASH Score: 34.0900
--- NOTE | 2024-10-12 11:11 | HP.PTDCSUM ---
Discharge Summary D/C summary: It has been my pleasure to treat LARA SOLANO referred by Dr. Rylan Cee DPM, with the diagnosis of Neuropathy/R shoulder pain for a total of 24 visit(s). Discharge Date: 10/12/24 Please see the following information for a summary of their discharge status. Subjective Subjective: Pt reports that his shoulder pain comes and goes. He reports that his elbow pain is 95% gone. Every once in awhile he will get a pop. He knows what machines to work on out in the gym. Pain R shoulder pain: Pain Intensity (Out of 10): 2 B feet N&T: Pain Intensity (Out of 10): 0 Overall Improvement % Improvement: 50 Objective Objective/Function: UE AROM: R flex 156 and L 153 R shoulder ABD 136 and L 145 R shoulder IR L1 and L T8 R shoulder ER 51 and L 65) UE MMT: R shoulder flex 7.9 and L 10.1 R shoulder ABD 8.1 and L 10.4 R shoulder ER 10.9 and L 14.8 R shoulder IR 11 and L 10.5) Goals Goal 1:: I HEP Goal Progress: Goal Met Goal 2:: Increase R shoulder AROM painfree (R shoulder flex 131 and L 153 R shoulder ABD 123 and L 145 R shoulder IR L1 and L T8 R shoulder ER 51 and L 65) Goal Progress: Progressing Goal 3:: Increase balance (FGA was 7 at eval) Goal Progress: Not Progressing Goal 4:: Increase balance (CATSIB was 82 at eval) Goal Progress: Not Progressing Goal 5:: Increase LE strength (at time of the eval: LE MMT: R hip flex 16 and L 15.1 R knee ext 24.2 and L 25 R knee flex 8.5 and L 10.7 R DF 4.1 and L 7.4 Hip abd B 4-/5 Sit to stand: able to get up without use of her arms) Goal Progress: Goal Met Goal 6:: Increase R shoulder strength (at the time of the eval: R shoulder flex 6.3 and L 10.1 R shoulder ABD 8.1 and L 10.4 R shoulder ER 10.2 and L 14.8 R shoulder IR 10 and L 10.5) Goal Progress: Goal Met Plan Plan: DC PT to HEP and indep gym routine. D/C Information Discharge Comments: DC PT to indep gym routine d/c sentence: If there are questions or concerns regarding this patient's physical therapy, please feel free to call me at [phone]. Thank you for the referral of this patient. Sincerely, Thao Aguero, MPT Balance/Gait/Functional tests Balance/Special Test Scores Functional Gait Assessment Score: 7 % Disability: 76.6700 CATSIB Score (Max score 120 seconds): 82 Lower Extremity Functional Score: 38 Quick DASH Score: 34.0900 Improvement % Improvement: 50
== END 2024-10-12 12:15 | disposition home or self-care (01) ==
LOC: PT 10:30
PROVIDERS: PCP Student in an Organized Health Care Education/Training Program; Referring Provider Podiatrist; Visit Provider Podiatrist
DX: M25.511 Pain in right shoulder (principal); M54.2 Cervicalgia; M25.521 Pain in right elbow; W19.XXXD Unspecified fall, subsequent encounter; G62.9 Polyneuropathy, unspecified; R26.89 Other abnormalities of gait and mobility
CPT/HCPCS: 97014; 97035; 97110; 97161; 97164; 97530; G0283

== ENCOUNTER 2024-10-19 11:25 | Outpatient (RCR) | payer MEDICARE, OTHER, SELFPAY ==
[2024-10-12 12:06] LABS: International Normalized Ratio 1.3; Prothrombin Time (Protime)PT. 16.8 SECONDS (11.7-14.9)
[2024-10-19 12:17] LABS: International Normalized Ratio 2.2; Prothrombin Time (Protime)PT. 24.6 SECONDS (11.7-14.9)
== END 2024-11-04 18:00 | disposition home or self-care (01) ==
LOC: LAB 11:25
PROVIDERS: PCP Student in an Organized Health Care Education/Training Program; Referring Provider Physician Assistant Medical; Visit Provider Physician Assistant Medical
DX: I48.91 Unspecified atrial fibrillation; Z79.01 Long term (current) use of anticoagulants
CPT/HCPCS: 36415; 85610

== ENCOUNTER → 2024-11-24 | Outpatient (CLI) | payer MEDICARE, OTHER, SELFPAY ==
--- NOTE | 2024-11-24 17:40 | CT_ITS ---
PROCEDURE: SOFT TISSUE NECK WITH CONTRAST 11/24/2024 REASON FOR EXAM: Left COMPLEX CYSTIC LESION on thyroid sonogram TECHNIQUE: CT of the soft tissues of the neck from the orbits to the upper mediastinum with intravenous contrast. CONTRAST: Isovue-300 VOLUME: 100 mL One or more dose reduction techniques were used (e.g., Automated exposure control, adjustment of the mA and/or kV according to patient size, use of iterative reconstruction technique). RADIATION DOSE SUMMARY: CTDlvol: 19.48 mGy DLP: 710.65 MGycm COMPARISON: Prior thyroid sonogram dated October 09, 2024. FINDINGS: Airway: Midline and patent. Salivary glands: 1.2 cm x 1.4 cm irregular nodule arising from the posterior left parotid gland. Lymph nodes: There is evidence of a 2.4 cm x 3.5 cm by 4.8 cm from the level of the larynx down to the left supraclavicular region. A similar appearing mass measuring 2 cm by 1.3 cm by 4.1 cm is seen in the superior cervical region just deep to the left sternocleidomastoid. These may represent abnormal lymph nodes. There is also evidence of a 1.2 cm by 1.4 cm heterogeneous density arising from the posterior aspect of the left parotid gland. Heterogeneous complex mass in the left cervical region lateral to the larynx. Thyroid: Unremarkable. Vasculature: Carotid arteries and internal jugular veins are unremarkable. Orbits: Unremarkable at visualized levels. Paranasal sinuses and mastoids: Grossly clear at visualized levels. Lung apices: Clear. Upper mediastinum: Coronary artery calcification. Bones: Multilevel degenerative changes of the spine. Other: CT/Soft Tissue Neck WITH Contrast IMPRESSION: Left cervical adenopathy as described as well as an abnormality seen in the lef t posterior aspect of the parotid gland. Reading Location: [place] [id number]
[2024-11-24 17:55] LABS: CREATININE FINGERSTICK 1.1 mg/dL (0.70-1.30); EGFR FINGERSTICK > 60.0000 mL/min (>60)
== END | disposition home or self-care (01) ==
LOC: CT 16:56
PROVIDERS: PCP Student in an Organized Health Care Education/Training Program; Referring Provider Surgery; Visit Provider Surgery
DX: Z01.812 Encounter for preprocedural laboratory examination (principal); R59.0 Localized enlarged lymph nodes
CPT/HCPCS: 70491; Q9967

== ENCOUNTER 2024-12-02 10:35 | Outpatient (RCR) | payer MEDICARE, OTHER, SELFPAY ==
[2024-11-20 11:42] LABS: International Normalized Ratio 3.5; Prothrombin Time (Protime)PT. 35.6 SECONDS (11.7-14.9)
[2024-12-02 11:14] LABS: International Normalized Ratio 2.4; Prothrombin Time (Protime)PT. 26.7 SECONDS (11.7-14.9)
== END 2024-12-02 18:00 | disposition home or self-care (01) ==
LOC: LAB 10:35
PROVIDERS: PCP Student in an Organized Health Care Education/Training Program; Referring Provider Physician Assistant Medical; Visit Provider Physician Assistant Medical
DX: Z79.01 Long term (current) use of anticoagulants; I48.0 Paroxysmal atrial fibrillation
CPT/HCPCS: 36415; 85610

== ENCOUNTER → 2024-12-11 | Outpatient (CLI) | payer MEDICARE, OTHER, SELFPAY ==
--- NOTE | 2024-12-11 09:39 | US_ITS ---
PROCEDURE: HEAD/NECK SOFT TISSUE 12/11/2024 REASON FOR EXAM: CERVICAL ADENOPATHY TECHNIQUE: Ultrasound imaging of Head and Neck. COMPARISON: CT scan on 11/24/2024. FINDINGS: Multiple heterogeneous, necrotic enlarged lymph nodes are noted. Left lateral to the thyroid measuring 4.5 x 3.8 x 2.9 cm. Complex enlarged lymph node with increased vascularity. Left lateral to the thyroid measuring 1.6 x 1.5 x 1 cm enlarged lymph node with increased vascularity. In the left aspect of the neck/left parotid gland measuring 2.7 x 1.5 x 1.1 cm enlarged lymph node with increased vascularity. In the left aspect of the neck/left parotid gland measuring 1.4 x 0.8 x 1.1 cm enlarged lymph node with increased vascularity. In the left lateral aspect of the neck measuring 3.2 x 2 x 1.9 cm with increased vascularity. US/Head/Neck Soft Tissue IMPRESSION: Cervical lymphadenopathy. No significant change is noted since the prior CT scan. Reading [facility]
== END | disposition home or self-care (01) ==
LOC: US 09:12
PROVIDERS: PCP Student in an Organized Health Care Education/Training Program; Referring Provider Surgery; Visit Provider Surgery
DX: R59.0 Localized enlarged lymph nodes (principal)
CPT/HCPCS: 76536

== ENCOUNTER 2024-12-15 10:43 | Outpatient (RCR) | payer MEDICARE, OTHER, SELFPAY ==
[2024-12-08 11:31] LABS: International Normalized Ratio 2.5; Prothrombin Time (Protime)PT. 27.4 SECONDS (11.7-14.9)
[2024-12-15 11:53] LABS: International Normalized Ratio 2.8; Prothrombin Time (Protime)PT. 30.2 SECONDS (11.7-14.9)
== END 2024-12-15 18:00 | disposition home or self-care (01) ==
LOC: LAB 10:43
PROVIDERS: PCP Student in an Organized Health Care Education/Training Program; Referring Provider Physician Assistant Medical; Visit Provider Physician Assistant Medical
DX: Z79.01 Long term (current) use of anticoagulants (principal); I48.0 Paroxysmal atrial fibrillation
CPT/HCPCS: 36415; 85610

== ENCOUNTER 2025-01-19 10:32 | Outpatient (RCR) | payer MEDICARE, OTHER, SELFPAY ==
[2025-01-12 11:09] LABS: Prothrombin Time (Protime)PT. 40.9 SECONDS (11.7-14.9)
[2025-01-19 11:03] LABS: Prothrombin Time (Protime)PT. 28.5 SECONDS (11.7-14.9)
== END 2025-02-04 21:27 | disposition home or self-care (01) ==
LOC: LAB 10:32
PROVIDERS: PCP Student in an Organized Health Care Education/Training Program; Referring Provider Physician Assistant Medical; Visit Provider Physician Assistant Medical
DX: Z79.01 Long term (current) use of anticoagulants (principal); I48.0 Paroxysmal atrial fibrillation
CPT/HCPCS: 36415; 85610

== ENCOUNTER 2025-01-27 11:11 | Day surgery (SDC) | payer MEDICARE, OTHER, SELFPAY ==
--- NOTE | 2025-01-13 16:13 | PAT.ANE_ITS ---
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 When Was Last Pacemaker Check QUESTION #4 FULL TEXT: You/Your Family Experience fever (hyperthermia) with Anesthesia Last Oral Intake Last Oral intake: Last Oral Intake NPO since Meds taken in AM with sips of water? Meds patient instructed to take am of surgery PONV PONV - top collar maker: PONV - top collar maker Female No 01/13/25 14:32 HX of Motion Sickness No 01/13/25 14:32 HX of N/V After Surgery No 01/13/25 14:32 Non-Smoker Yes 01/13/25 14:32 Duration of Surgery greater No 01/13/25 14:32 than 60 minutes Number of Risk Factors 1 01/13/25 14:32 PONV Score Low Risk 01/13/25 14:32 Height & Weight Height & Weight: Anesthesia: Height & Weight Height 5 ft 8.5 in 12/23/24 08:28 Respiratory Assessment Respiratory Assessment - top collar maker: Respiratory Tract Infection Hx - top collar maker Hx Respiratory Tract Infection No 01/13/25 14:32 STOP Sleep Apnea STOP Sleep Apnea - top collar maker: STOP Sleep Apnea - top collar maker Hx Hypertension No 01/13/25 14:32 Hx Sleep Apnea No 01/13/25 14:32 CPAP BIPAP Do you snore loudly (louder No 01/13/25 14:32 than talking or can be heard Do you often feel tired/ No 01/13/25 14:32 fatigued/ sleepy during daytime? Has anyone observed you stop No 01/13/25 14:32 breathing during sleep? STOP Results Negative 01/13/25 14:32 QUESTION #5 FULL TEXT : Do you snore loudly (louder than talking or can be heard through closed doors)? 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 Specify any problems Hx of Preganancy in last 3 N/A 01/13/25 14:32 Months Nurse Filling Out Transfusion VCHRISTIN 01/13/25 14:32 & Questions: Date: 01/13/25 01/13/25 14:32 Time: 14:33 01/13/25 14:32 Patient unable to answer at this time (ie. confused, unrespo /Reproduction History /Reproductive History - top collar maker: /Reproductive Hx- top collar maker Hx Now No 01/13/25 14:32 Gestational Age (in weeks): EDC: Hx Hx Para Hx Section SAB No 01/13/25 14:32 [facility] Medical History (Updated 01/13/25 @ 14:31 by Natalya Zamarripa) Wears dentures History of pain when walking History of echocardiogram Normal Holter exam Cardiology follow-up encounter PAF (paroxysmal atrial fibrillation) History of stroke Macrocytic anemia Thrombocytopenia Atrial fibrillation with rapid ventricular response Vision loss, right eye Wears partial dentures Wears glasses High cholesterol Easy bruising Excessive bleeding Non-smoker History of pain when walking Carotid stenosis, right Hypercholesteremia Hypertension Diabetes mellitus Home Medications ?Medication ?Instructions ?Recorded ?Last Taken ?Type gabapentin 300 mg capsule 900 mg PO TID PAIN 09/06/22 01/24/23 History glimepiride 4 mg tablet 4 mg PO BID DIABETES 3 01/23/23 History [id number] C-Mn 500 1 cap PO DAILY SUPP LEMENT 09/06/22 01/23/23 History mg-400 mg capsule (Glucosamine Chondroitin Maximum Strength) metformin 750 mg tablet,extended 750 mg PO BID DIABETE S 09/06/22 01/24/23 History release 24 hr magnesium oxide 500 mg capsule 500 mg PO DAILY SUPPLEM ENT 09/10/22 01/23/23 History cholecalciferol (vitamin D3) 25 25 mcg PO DAILY SUPPLE MENT 09/13/22 01/23/23 History mcg (1,000 unit) capsule (Vitamin D3) meloxicam 7.5 mg tablet 7.5 mg PO PRN PRN FOOT PAIN 09/13/22 01/23/23 History simvastatin 20 mg tablet 20 mg PO DAILY 10/11/2201/05 History clobetasol 0.05 % topical ointment 1 applic topical DA LUCERO 07/10/23 Unknown History (Temovate) lamotrigine 25 mg tablet 25 mg PO DAILY PT UNSURE 04/30 Unknown History losartan 50 mg tablet 50 mg PO QDAY 01/15/24 Unkno wn History potassium gluconate 595 mg (99 mg) 595 mg PO DAILY 04/01 Unknown History tablet warfarin 4 mg tablet 4 mg PO DAILY 01/13/25 Unkno wn History Allergy/AdvReac Type Severity Reaction Status Date / Time pregabalin (From Lyrica) AdvReac Other Verified 01/13/25 14:04 Surgical History (Updated 01/13/25 @ 14:31 by Natalya Zamarripa) History of right-sided carotid endarterectomy Hx of bilateral cataract extraction Hx of colonoscopy Hx of total knee replacement Hx of hernia repair Hx laparoscopic cholecystectomy Social History Smoking Status: Never smoker Audit: Pertinent Findings Pertinent Findings EKG Perinent findings: 02/07/2023 sinus bradycardia Echo (EF%) pertinent findings: 01/25/2023 EF 65%. Stage II diastolic dysfunction Consult pertinent findings: Cardiology note 01/15/2024 comment on echo EF 65%. Stage II diastolic dysfunction. RVSP 43 mmHg. Mild pulmonary hypertension. Recommendation Anesthesia Recommendation Anesthesia recommendation: OPTIMIZED for anesthesia
[2025-01-27] VITALS (12 sets, daily range): BP systolic 144–166; BP diastolic 56–80; PULSE 65–79; RESP 16–20; TEMP 36.1–37.2; O2SAT 91–99; BMI 27.3
--- NOTE | 2025-01-27 | LYMN_PTH ---
PATIENT: LARA SOLANO [place] [facility] [place][id number] AGE/SX: 79/M ROOM: RE01/27/[address]: Dr. Juan Campbell MD : 1945 BED: DIS: 01/27/2025 SPEC #: [id number] RECD: 01/27/25 14:14 STATUS: MARCOS ANGELINA #: [id number] MARBELLA: 01/27/25 00:[address]: Juan Campbell DEPT: SURGICAL PATHOLOGY RECD BY: Maureen Grossman ENTERED: 01/27/25 14:29 SP TYPE: LYMPH NODE OTHR DR: Dr. Harlan Ford, Tissues: B - LYMPH NODE BIOPSY A - Neck, NOS C - Neck, NOS Procedures: Surgery Specimen Level III Surgery Specimen Level IV HEADER OPERATION: Excision, lymph node left cervical PRE-OP DIAGNOSIS: Mass of left side of neck TISSUE SUBMITTED: A- Left cervical mass, B- Level 3 lymph node left neck, C- Left neck mass FROZEN SECTION DIAGNOSIS A. Intraoperative Touch Prep: - Lymphoid tissue. Will do lymphoma workup on additional tissue to be submitted per Dr Campbell. Diagnosis provided by Eliel Wild MD at 2:20 PM, 01/27/2025. MICROSCOPIC DIAGNOSIS A. Cervical, left, mass, excision: - Lymphoid tissue present per intraoperative touch prep. - Final diagnosis is pending formal consultation at [facility] and a separate report will follow. B. Lymph node, neck, left, level 3, excision: - Lymphoid tissue present per touch prep. - Tissue sample sent for flow cytometry. - Final diagnosis is pending formal consultation at [facility] and a separate report will follow. C. Neck, left, mass, incisional biopsy: - Abnormal cellularity per touch prep - Tissue sample sent for flow cytometry. - IHC for pankeratin is negative for evidence of metastatic carcinoma. - Final diagnosis is pending formal consultation at [facility] and a separate report will follow. COMMENT Dr Campbell's office was notified of send out to [facility] for formal consultation and extended [id number] to be expected, by Christiano Monroy 01/28/2025. MICROSCOPIC DESCRIPTION Slides are reviewed. GROSS DESCRIPTION A. Received fresh for intraoperative consultation labeled patient's name and date of . Designated as left cervical mass left is a 0.6 x 0.3 x 0.2 cm sectioning reveals focally congested cut surfaces. Touch preparations are made. The specimen is entirely submitted in 1 cassette. B. Received fresh labeled with the patient's name and date of . Designated as level 3 lymph node left neck is a 1.5 x 0.8 x 0.4 cm pink-red apparent lymph node which is bisected. Touch preparations are made. A portion is placed in RPMI for potential future ancillary studies. Entirely submitted in 1 cassette. C. Received fresh labeled the patient's name and date of . Designated as left neck mass is a 1.8 x 0.7 x 1.1 cm pink-red tissue fragment, devoid of orientation. Sectioning reveals vargas-pink to yellow-green, soft cut surfaces. Touch preparations are made. A portion is placed in RPMI for potential future ancillary studies. Entirely submitted in 2 cassettes. MD 01/27/2025 CPT:[id number] ADDENDUM ADDENDUM ADDENDUM ADDENDUM ADDENDUM ADDENDUM ADDENDUM ADDENDUM ADDENDUM ADDENDUM ADDENDUM ADDENDUM ADDENDUM ADDENDUM ADDENDUM ADDENDUM ADDENDUM ADDENDUM ADDENDUM ADDENDUM ADDENDUM ADDENDUM 02/24/2025 08:47 ADDENDUM 02/24/2025 08:47 ADDENDUM 02/24/2025 08:47 ADDENDUM 02/24/2025 08:47 ADDENDUM 02/24/2025 08:47 This addendum is added to incorporate an outside pathology consultation report. The case was examined at [facility] by Dr. Flores (#[id number]) and the following diagnosis was rendered. A. Cervical, left, mass, excision: Lymphoid tissue. B. Lymph node, neck, left, level 3, excision: Lymphoid tissue. C. Neck, left, mass, incisional biopsy: Aggressive B-cell lymphoma. Diagnosis comment: The differential diagnosis includes diffuse large B-cell lymphoma, GC type versus High grade B-cell lymphoma, NOS, with MYC and BCL2/BCL6 rearrangements. The FISH in progress and results will be followed in the addendum. Addendum: The IHC for CD34 is negative on the lymphoma cells. The final diagnosis is not changed. The FISH detected rearrangement of the BCL2 gene detected. No BCL6 or MYC rearrangement is detected. Therefore, the final diagnosis of DLBCL, GC type, is considered. Please see complete above mentioned consultation report in EMR
[2025-01-27 11:19] LABS: INR Fingerstick 2.1
[2025-01-27] MEDS: Lactated Ringers 1,000 ML 15 ML IV (11:46)
--- NOTE | 2025-01-27 12:16 | PCM.HP.BLA ---
History and Physical Date of Admission: 01/27/25 Date of Service: 12/23/24 MR#: [id number] Acct: [id number] Name: LARA SOLANO Rep #: [id number] : 1945 Provider: Dr. Juan Campbell MD Age/Sex: 78/M Location: [facility] Status: Signed Intake Vital Signs 01/14/2410:30 12/24/2507:28 Height 5 ft 9 in 5 ft 8.5 in Weight: 197 lb BMI 29.5 BP 168/67 H Blood Pressure Location Rt brachial Position Sitting Respiration 16 Intake Visit Reasons: REVIEW IMAGING & DISCUSS BIOPSY IN OR Chief Complaint: enlarged lymph nodes [employer] Required: No Is patient in pain?: No Allergies pregabalin (From Lyrica) Adverse Reaction (Verified 12/23/24 08:28) Other Medications ?Medication ?Instructions ?Recorded ?Confirmed ?Type cyanocobalamin (vitamin B-12) 1,000 mcg PO DAILY SUPPLEMENT 09/06/22 12/23/24 History 1,000 mcg tablet (Vitamin B-12) gabapentin 300 mg capsule 900 mg PO TID PAIN 09/06/22 12/23/24 History glimepiride 4 mg tablet 4 mg PO BID DIABETES 09/06/22 12/23/24 History ecmfkmdgqjx-[id number]-zuk C-Mn 500 1 cap PO DAILY SUPPLEMENT 09/06/22 12/23/24 History mg-400 mg capsule (Glucosamine Chondroitin Maximum Strength) metformin 750 mg tablet,extended 750 mg PO BID DIABETES 09/06/22 12/23/24 History release 24 hr magnesium oxide 500 mg capsule 500 mg PO DAILY SUPPLEMENT 09/10/22 12/23/24 History cholecalciferol (vitamin D3) 25 25 mcg PO DAILY SUPPLEMENT 09/13/22 12/23/24 History mcg (1,000 unit) capsule (Vitamin D3) meloxicam 7.5 mg tablet 7.5 mg PO PRN PRN FOOT PAIN 09/13/22 12/23/24 History simvastatin 20 mg tablet 20 mg PO DAILY 10/11/22 12/23/24 History clobetasol 0.05 % topical ointment 1 applic topical DAILY 07/10/23 12/23/24 History (Temovate) lamotrigine 25 mg tablet 25 mg PO DAILY PT UNSURE 01/15/24 12/23/24 History losartan 50 mg tablet 50 mg PO QDAY 01/15/24 12/23/24 History warfarin 2 mg tablet 2 mg PO DAILY #30 tabs 06/29/24 12/23/24 Rx warfarin 4 mg tablet 4 mg PO DAILY #120 tabs 10/07/24 12/23/24 Rx Have you fallen in the past year?: No PFSH Medical History PAF (paroxysmal atrial fibrillation) History of stroke Macrocytic anemia Thrombocytopenia Atrial fibrillation with rapid ventricular response Vision loss, right eye Wears partial dentures Wears glasses High cholesterol Easy bruising Excessive bleeding Non-smoker History of pain when walking Carotid stenosis, right Hypercholesteremia Hypertension Diabetes mellitus Surgical History History of right-sided carotid endarterectomy Hx of bilateral cataract extraction Hx of colonoscopy Hx of total knee replacement Hx of hernia repair Hx laparoscopic cholecystectomy Social History Smoking Status: Never smoker HPI HPI HPI: Patient is a 79-year-old male who presents for evaluation of new left-sided neck mass/adenopathy?. Patient presents today with his son. He states that this was purely an incidental finding when he underwent imaging of his carotid arteries for vascular surgery, Dr. López, 5 to 6 weeks ago. He denies any associated tenderness. He denies any associated night sweats. He denies any recent weight loss. He denies any personal history of previous cancer. Mr. Solano does have a history of salivary gland swelling which he states occurred approximately 4 times in the last 10 years. There is no family history for lymphoma or hematologic malignancies as he can recall. Mr. Solano reports that he remains pretty active but he confesses that he is getting tired easier than he used to. ROS General General: No weight change, appetite, fatigue, colon cancer, breast cancer or weakness HEENT HEENT: Yes swollen glands; No difficulty swallowing, eye injury, eye surgery or hoarseness Endo Endocrine: Yes diabetes mellitus; No thyroid disease, thyroid cancer, Hair loss, heat intolerance or cold intolerance Skin Skin: No rash or changing moles Breast Breast: No left breast lump, right breast lump, nipple discharge, breast pain, abnormal mammogram, abnormal US or breast enlargement Musc Musculoskeletal: No back problems, arthritis, rheumatoid arthritis, gout or joint pain Cardio Cardiovascular: Yes atrial fibrillation; No murmur, pacemaker, heart disease, high blood pressure, heart attack, heart stent, palpitations, shortness of breath with exertion or chest pain Psych Psychiatric: No depression, anxiety or hearing voices Resp Respiratory: No shortness of breath, No sleep apnea, No cough, No COPD, No asthma, No emphysema and No wheezing Gastro Gastrointestinal: No abdominal pain, No nausea or vomiting, No diarrhea, No constipation, No blood in stool, No acid reflux, No hemorrhoids, No ulcers, No gallbladder problem and No black,tarry stools Jose Hematologic: Yes blood thinners, No blood disorders, No bleeding, No anemia and No blood clots Neuro Neurologic: No system reviewed and no additional complaints, except as documented, No as per HPI, No abnormal gait, No abnormal hearing, No abnormal movements, No abnormal speech, No behavioral changes, No burning sensations, No confusion, No convulsions, No disequilibrium, No dizziness, No localized weakness, No frequent falls, No headache(s), No lack of coordination, No loss of vision, No memory loss, No numbness, No other visual disturbances, No radicular pain, No restless legs, No sensory deficit, No syncope, No tingling, No tremor(s), No weakness and No other Exam Const General: cooperative and anxious Neck Other: Patient has a palpable nontender neck mass of the left neck. Via bedside ultrasound at the level of the cricoid cartilage there is a hypoechoic dominant mass measuring 2.8 x 3.1 x 4.3 cm (longitudinal). Just superior to this there is a small area that is potentially continuous and measures 1.2 x 0.9 x 1.0 cm. It is also hypoechoic and slightly irregular with its borders Assessment and Plan Assessment and Plan (1) Mass of left side of neck: Status: Acute Comment: Patient is a 79-year-old male who makes surgical consultation related to incidental finding of multiple (at least 3) neck masses of the left neck. Patient has a history of prior right-sided carotid endarterectomy September 2022. Imaging obtained perioperatively does not show the masses at that time. They are nontender on exam. By history Mr. Soalno denies any B symptoms. With their distribution and location they would seem to represent abnormal lymph nodes of the left jugular chain. I had him undergo a battery of testing to assess for feasibility of biopsy given the anatomy surrounding these masses. Pathology has confirmed that he would require at least an incisional biopsy to make a diagnosis and that FNA alone would be insufficient. Therefore, I have deemed patient's largest mass just lateral to his left thyroid lobe as being the lowest risk to approach for biopsy. I discussed biopsy approach with patient and his son. Will plan to involve vascular surgery as well to assist with the procedure. Plan: ? Plan for outpatient incisional versus excisional biopsy of left lateral neck mass and coordination with vascular surgery ? Patient will require preoperative hold of Plavix for 5 days to minimize his bleeding risk I have examined the patient and the H&P has been reviewed. There are no clinical changes since date of exam. Operative plan was reviewed. Patient has met with vascular surgery who will assist during the procedure. I did review with Dr. López that patient's INR this morning is 2.1. While this is somewhat higher than ideal, we will plan to proceed with intent for meticulous hemostasis and the name of trying not to delay patient further. Consents were obtained. Proceed to the operating room for excisional biopsy of left cervical lymph node.
--- NOTE | 2025-01-27 12:28 | PCM.PRE.AN2 ---
ASA Classification* ASA Classification ASA Classification: 3 Assessment & Plan Anesthesia* Anesthesia Assessment Anesthesia Assessment: Discussed sedation and/or anesthesia options, risks, benefits, and alternatives with patient/parents/legal guardian/POA. Questions invited. The patient/parents/legal guardian/POA seems to understand and agrees to proceed with anesthesia plan. Reviewed the physical assessment, medical history, allergy history and patient home medications list prior to surgery/procedure/anesthetic and documented any changes. Performed airway and anesthesia risk assessments. Anesthesia Type Anesthesia Type: General (Patient has cookies at 7 AM. Will have to wait till the full 6 hours to 1:00 to proceed with surgery. Plan for endotracheal intubation.) History Source History Obtained from:: Patient and Chart Anesthesia Focused Assessment* Temperature: 98.9 F Pulse Rate: 65 Blood Pressure: 150/56 Respiratory Rate: 16 Pulse Ox: 99 Oxygen Delivery Method: Room Air Airway Assessment Mouth opens: >3 cm Mallampati Score: II Teeth Condition: Dentures (Upper full dentures are out.) and Missing (Patient is missing several teeth on the bottom. Rest are tight.) Neck Range of motion (ROM): Limited ROM (Somewhat Decreased) Labs Anesthesia Preop lab: CBC WBC 3.0 K/mm3 (4.4-11.0) L 08/27/23 09:08 08/27/23 RBC 4.40 M/mm3 (4.6-6.2) L 08/27/23 09:08 08/27/23 Hgb 14.0 g/dL (13.0-16.5) 08/27/23 09:08 08/27/23 Hct 41.2 % (40-54) 08/27/23 09:08 08/27/23 Plt Count 73 K/mm3 (150-450) L 08/27/23 09:08 08/27/23 CHEMISTRY Potassium 4.7 mmol/L (3.3-5.1) 10/06/24 13:48 10/06/24 Sodium 139 mmol/L (133-145) 10/06/24 13:48 10/06/24 Magnesium 1.5 mg/dL (1.6-2.6) L 09/20/22 03:15 09/20/22 Phosphorus 3.2 mg/dL (2.5-4.9) 09/20/22 03:15 09/20/22 BUN 18 mg/dL (4-19) 10/06/24 13:48 10/06/24 Creatinine 0.96 mg/dL (0.70-1.20) 10/06/24 13:48 10/06/24 Glucose 262 mg/dL (70-99) H 10/06/24 13:48 10/06/24 POC Glucose 187 mg/dL (74-106) H 01/25/23 11:20 01/25/23 TSH 1.550 uIU/mL (0.300-4.200) 10/06/24 13:48 10/06/24 COAG PT 28.5 SECONDS (11.7-14.9) H 01/19/25 10:38 01/19/25 Pre-Assessment Diagnosis/Proposed Procedure Planned Operative Procedure(s): (L) Excision, Lymph Node left cervical with frozen section Anesthesia History 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 When Was Last Pacemaker Check QUESTION #4 FULL TEXT: You/Your Family Experience fever (hyperthermia) with Anesthesia Last Oral Intake Last Oral intake: Last Oral Intake NPO since 07:00 01/27/25 11:59 Meds taken in AM with sips of Yes 01/27/25 11:59 water? Meds patient instructed to take am of surgery PONV PONV - electric utility lineworker: PONV - electric utility lineworker Female No 01/13/25 14:32 HX of Motion Sickness No 01/13/25 14:32 HX of N/V After Surgery No 01/13/25 14:32 Non-Smoker Yes 01/13/25 14:32 Duration of Surgery greater No 01/13/25 14:32 than 60 minutes Number of Risk Factors 1 01/13/25 14:32 PONV Score Low Risk 01/13/25 14:32 Height & Weight Height & Weight: Anesthesia: Height & Weight Height 5 ft 9 in 01/27/25 11:59 Weight: 84 kg 01/27/25 11:59 Body Mass Index (BMI) 27.3 01/27/25 11:59 Respiratory Assessment Respiratory Assessment - electric utility lineworker: Respiratory Tract Infection Hx - electric utility lineworker Hx Respiratory Tract Infection No 01/13/25 14:32 STOP Sleep Apnea STOP Sleep Apnea - electric utility lineworker: STOP Sleep Apnea - electric utility lineworker Hx Hypertension No 01/13/25 14:32 Hx Sleep Apnea No 01/13/25 14:32 CPAP BIPAP Do you snore loudly (louder No 01/13/25 14:32 than talking or can be heard Do you often feel tired/ No 01/13/25 14:32 fatigued/ sleepy during daytime? Has anyone observed you stop No 01/13/25 14:32 breathing during sleep? STOP Results Negative 01/13/25 14:32 QUESTION #5 FULL TEXT : Do you snore loudly (louder than talking or can be heard through closed doors)? 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 Specify any problems Hx of Preganancy in last 3 N/A 01/13/25 14:32 Months Nurse Filling Out Transfusion VCHRISTIN 01/13/25 14:32 & Questions: Date: 01/13/25 01/13/25 14:32 Time: 14:33 01/13/25 14:32 Patient unable to answer at this time (ie. confused, unrespo /Reproduction History /Reproductive History - electric utility lineworker: /Reproductive Hx- electric utility lineworker Hx Now No 01/13/25 14:32 Gestational Age (in weeks): EDC: Hx Hx Para Hx Section SAB No 01/13/25 14:32 Active Medications Active Medications: Current Medications Generic Name Dose Route Start Last Admin Trade Name Freq PRN Reason Stop Dose Admin Cefazolin Sodium 2 gm/ Sodium 110 mls @ 200 mls/hr 01/27/25 13:00 Chloride IV 01/27/25 13:32 INTRAOP ONE Lactated Ringer's 1,000 mls @ 15 mls/hr 01/27/25 11:30 01/27/25 11:46 IV 15 mls/hr .Q48H JACKIE Administration PFSH Medical History Wears dentures History of pain when walking History of echocardiogram Normal Holter exam Cardiology follow-up encounter PAF (paroxysmal atrial fibrillation) History of stroke Macrocytic anemia Thrombocytopenia Atrial fibrillation with rapid ventricular response Vision loss, right eye Wears partial dentures Wears glasses High cholesterol Easy bruising Excessive bleeding Non-smoker History of pain when walking Carotid stenosis, right Hypercholesteremia Hypertension Diabetes mellitus Home Medications ?Medication ?Instructions ?Recorded ?Last Taken ?Type gabapentin 300 mg capsule 900 mg PO TID PAIN 09/06/22 01/27/25 History glimepiride 4 mg tablet 4 mg PO BID DIABETES 09/06/22 01/23/23 History iwbmuawdzau-yqtttftth-rkn C-Mn 500 1 cap PO DAILY SUPPLEMENT 09/06/22 01/23/23 History mg-400 mg capsule (Glucosamine Chondroitin Maximum Strength) metformin 750 mg tablet,extended 750 mg PO BID DIABETES 09/06/22 01/24/23 History release 24 hr magnesium oxide 500 mg capsule 500 mg PO DAILY SUPPLEMENT 09/10/22 01/23/23 History cholecalciferol (vitamin D3) 25 25 mcg PO DAILY SUPPLEMENT 09/13/22 01/23/23 History mcg (1,000 unit) capsule (Vitamin D3) meloxicam 7.5 mg tablet 7.5 mg PO PRN PRN FOOT PAIN 09/13/22 01/23/23 History simvastatin 20 mg tablet 20 mg PO DAILY 10/11/22 01/23/23 History clobetasol 0.05 % topical ointment 1 applic topical DAILY 07/10/23 Unknown History (Temovate) lamotrigine 25 mg tablet 25 mg PO DAILY PT UNSURE 01/15/24 01/27/25 History losartan 50 mg tablet 50 mg PO QDAY 01/15/24 01/27/25 History potassium gluconate 595 mg (99 mg) 595 mg PO DAILY 01/13/25 Unknown History tablet warfarin 4 mg tablet 4 mg PO DAILY 01/13/25 01/22/25 History Allergy/AdvReac Type Severity Reaction Status Date / Time pregabalin (From Lyrica) AdvReac Other Verified 01/27/25 11:55 Surgical History History of right-sided carotid endarterectomy Hx of bilateral cataract extraction Hx of colonoscopy Hx of total knee replacement Hx of hernia repair Hx laparoscopic cholecystectomy Social History Smoking Status: Never smoker Review of Systems (Anesthesia) ROS Narrative System reviewed and no additional complaints, except as documented.
[2025-01-27 12:33] LABS: Prothrombin Time (Protime)PT. 25.7 SECONDS (11.7-14.9)
[2025-01-27] MEDS: Bupiv/Epi 0.25% 30 ML Vial (14:50)
--- NOTE | 2025-01-27 14:55 | OP.PCM_ITS ---
Operative Report (Standard) Operative Information Date of Procedure: 01/27/25 Pre-Operative Diagnosis: Left neck mass Post-Operative Diagnosis: Left neck adenopathy Surgery/Procedure Performed: Excisional biopsy of left neck mass split and drum room supervisor: Yes Solid Waste Collection Worker: Sony López Tasks completed by first aid instructor: Opening, Dissecting tissue, Hemostasis: Electrocautery and Retracting Additional ex assistant/program director?: Yes Additional Back Tender #2: Lea Viera Tasks completed by ex assistant/program director #2: Closing Type of Anesthesia: General/Supplemental RN Documented Start/Stop Times: Operation Date: 01/27/25 13:00 Case Time Into Pre-Op 01/27/25 11:16 Out of Pre-Op 01/27/25 12:59 Anesthesia Start 01/27/25 13:02 Into Room 01/27/25 13:02 Procedure Start 01/27/25 13:28 Procedure End 01/27/25 14:54 Anesthesia End 01/27/25 14:59 Out of Room 01/27/25 14:59 Into Recovery 01/27/25 15:02 Into Phase II Recovery 01/27/25 16:16 Out of Recovery 01/27/25 16:16 Out of Phase II 01/27/25 17:34 Procedure Start Time: 13:28 Procedure Stop Time: 14:54 Select all DRAINS/GRAFTS/IMPLANTS that apply: None Estimated Blood Loss: 5 Specimen collected: Yes Description of specimen(s) removed: 1. Left cervical mass 2. Left cervical lymph node level 3 3. Left neck mass Description of surgery: After appropriate identification in the preoperative holding area the patient was brought to the operating room where he was positioned supine and administered prophylactic antibiotics by anesthesia. General anesthesia was induced and he was endotracheally intubated. He was then positioned with his head turned to the right to expose his left anterior neck. A bedside ultrasound was used to localize the position of the patient's hypoechoic neck masses and the surface of the neck was marked to indicate this position for use and incision planning. This area was prepped and draped in usual sterile fashion. Formal timeout followed to confirm patient procedure. Incision was marked out for an oblique extent of approximately 6 cm overlying the anterior border of the sternocleidomastoid muscle. Local anesthetic was used to create a local block and then the incision was carried down through the epidermal and dermal layers. It was deepened with the use of electrocautery through the subcutaneous layer and the platysma. Blunt dissection was then used to extend this deeper yet to the anterior border of the sternocleidomastoid muscle. The left common carotid artery was palpated significantly anteriorly. Careful dissection followed that we could establish our anatomy and shortly thereafter were able to identify the left internal jugular vein also coursing anterior to our position. Inferiorly we identified the omohyoid muscle and maintain this intact as it appeared it would not interfere with our dissection. Directly before us was a firm dominant mass and we sought the smaller lesion more superiorly that had appeared as a separate entity on patient's prior imaging with clear cleavage plane. In the superior aspect of our incision we were gradually able to make it out what appeared to be an enlarged lymph node. This was soft in its consistency but rather densely adherent to the anatomy posteriorly. The harmonic scalpel was used to divide attachments to try to minimize risk for bleeding or lymphatic leak. Ultimately we were able to circumferentially dissect this superior structure and submitted a superior portion of this mass for frozen section to pathology. Pathology would later report that this was consistent with lymphoid tissue. The remainder of the specimen was submitted to pathology for additional processing. We also discussed with pathology potentially performing an incisional biopsy of the more dominant mass to be sure the surgical specimen was small business representative. Through this discussion and discussion with vascular surgery we ultimately resolved to perform this incisional biopsy of the dominant mass using an 11 blade scalpel to obtain a roughly 1.5 x 1.5 cm cubic specimen was extracted from the superior aspect of the mass. There was very little blood loss with this incisional biopsy and no evidence of lymphatic leak. Specimen was passed off the field labeled left neck mass. The remaining mass was cauterized to try to do ablate the surface and minimize any risk for lymphatic leak if it ultimately was characterized as an abnormal lymph node. Hemostasis was sought in the surgical cavity and there was very slight ooze medially but no discrete source. Therefore we placed a small section of Surgicel in this location to effectively tamponade that area and there was no further evidence of bleeding through ongoing observation. With this reassurance we being closure of the neck. The sternocleidomastoid fascia was brought anteriorly to the border with the omohyoid fascia using 2-0 Vicryl in a running fashion. Then the platysma was reapproximated with interrupted 3-0 Vicryl. Lastly the incision was reorientated using deep dermals with 3-0 Vicryl and closed with a subcuticular technique with 4-0 Monocryl. Patient tolerated the procedure without difficulty and was awakened from anesthesia and transferred to PACU for ongoing recovery. Dr. López of vascular surgery was present and scrubbed for the majority of the case to assist with dissection given the proximity of the biopsy targets to the left common carotid artery and left internal jugular vein. Surgical Findings: ? Enlarged, but otherwise morphologically normal-appearing level 3 cervical lymph node excised completely ? More inferior dominant neck mass soft and nonbleeding with incisional biopsy Complications Complications: No Admit VTE Documentation VTE Mechan Device Prophylaxis: SCD's
--- NOTE | 2025-01-27 15:06 | PCM.POST.ANE ---
Anesthesia: Postop Eval I Current Vital Signs Temperature: 98.3 F Pulse Rate: 79 Blood Pressure: 147/61 Respiratory Rate: 20 Pulse Ox: 93 Oxygen Delivery Method: Room Air Assessment Airway patent: Yes Spontaneous unlabored respirations: Yes Mental status: Awake and Calm nausea: No Vomiting: No Anesthesia Complication: No Fluid Hydration Crystalloid volume administer (ml): 1,400 Total IV fluid infused: 1,400 Progress Note Anesthesia document: Postop Eval 1 completed: Yes
--- NOTE | 2025-01-27 16:23 | EX.PCM.DISCH ---
Discharge Instructions Diet Discharge Diet: No restrictions (However recommend a liquid to soft diet initially postoperatively) Activity Discharge Activity: May Not Drive (While it remains difficult to check blind spots quickly) May shower in (days): 2 Ice area for (Minutes): 20 Lifting Restrictions: No lifting greater than 15 pounds for 2 weeks after surgery Dressing / Incision Call your doctor if your incision/area has: Continuous Slow Oozing, Sudden Increased Bleeding, Increased Pain/ Swelling, Increased Redness and Swelling at the incision site Remove Dressing in: 2 days (Please leave Steri-Strips intact until they fall off spontaneously or are taken off at your follow-up visit) Cleanse incision/area with: Soap & Water Follow Up Care Please Follow Up With: Juan Campbell MD When: 10-14 days postop Test Results: Test results from this visit will be discussed in further detail at your follow-up appointment, if applicable. Discharge Plan Admission Primary Reason for Your Visit: Neck mass biopsy Attending Provider: Juan Campbell Primary Care Provider: Harlan Ford Instructions Additional Instructions / Restrictions: Please resume warfarin in 48 hours post procedure Print Language: Estonian Discharge Orders/Prescriptions Prescriptions: Continued magnesium oxide 500 mg capsule 500 mg PO DAILY simvastatin 20 mg tablet 20 mg PO DAILY clobetasol [Temovate] 0.05 % ointment 1 applic topical DAILY losartan 50 mg tablet 50 mg PO QDAY gabapentin 300 mg Capsule 900 mg PO TID glimepiride 4 mg Tablet 4 mg PO BID dzebvvvmigw-kwwiuixhi-bum C-Mn [Glucosamine Chondroitin MaxStr] 500-400 mg Capsule 1 cap PO DAILY metformin 750 mg Tablet Extended Release 24 Hr 750 mg PO BID lamotrigine 25 mg tablet 25 mg PO DAILY meloxicam 7.5 mg tablet 7.5 mg PO PRN PRN (Reason: FOOT PAIN) Patient Comments: TAKE 1 TABLET BY MOUTH ONCE DAILY. NEEDED FOR FOOT PAIN, WITH FOOD. cholecalciferol (vitamin D3) [Vitamin D3] 25 mcg (1,000 unit) Capsule 25 mcg PO DAILY potassium gluconate 595 mg (99 mg) tablet 595 mg PO DAILY warfarin 4 mg tablet 4 mg PO DAILY Protocol: Dose Management Condition: Saturday Dose/Route: 4 mg Instruction: 1 x 4 mg tablet Condition: Saturday Dose/Route: 4 mg Instruction: 1 x 4 mg tablet Condition: Saturday Dose/Route: 4 mg Instruction: 1 x 4 mg tablet Condition: Saturday Dose/Route: 4 mg Instruction: 1 x 4 mg tablet Condition: Dose/Route: 4 mg Instruction: 1 x 4 mg tablet Condition: Saturday Dose/Route: 4 mg Instruction: 1 x 4 mg tablet Condition: Saturday Dose/Route: 4 mg Instruction: 1 x 4 mg tablet Protocol Text: Adjustment Start Date: Saturday01/19/25 INR Value: 2.6 INR Date: 01/19/25 Recheck Date: 02/09/25 Referrals / Follow Up: Harlan Ford DO [Primary Care Provider] - Disposition Disposition (needs filled in before D/C Order can be placed): Home, Self Care
--- NOTE | 2025-01-27 19:11 | POSTOPAN2_ITS ---
Anesthesia Postop Eval I Sum Postop Eval Completion status Anesthesia document: Postop Eval 1 completed: Yes Anesthesia Postop Eval I Summary Anesthesia Postop Eval I Summary: Anesthesia Postop Eval I: Assessment Summary Airway patent Yes 01/27/25 15:06 [email or web address] Spontaneous unlabored Yes 01/27/25 15:06 MATERIALS [email or web address] respirations Mental status Awake,Calm 01/27/25 15:06 [email or web address] [email or web address] nausea No 01/27/25 15:06 [email or web address] Vomiting No 01/27/25 15:06 [email or web address] [email or web address] Anesthesia Postop Eval I: Fluid Summary Crystalloid volume administer 1,400 01/27/25 15:06 [email or web address] (ml) Colloids volume administered ( ml) Blood Product volume administered (ml) Total IV fluid infused 1,400 01/27/25 15:06 [email or web address] [email or web address] Anesthesia Postop Eval I: Summary Notes Anesthesia Complication No 01/27/25 15:06 [email or web address] Anesthesia Complication Comment: Post-operative progress note Anesthesia: Postop Eval II Evaluation Mental status: Awake Pain Level: 2 nausea: No Vomiting: No
--- NOTE | 2025-01-27 19:11 | PCM.POSTANE2 ---
Anesthesia Postop Eval I Sum Postop Eval Completion status Anesthesia document: Postop Eval 1 completed: Yes Anesthesia Postop Eval I Summary Anesthesia Postop Eval I Summary: Anesthesia Postop Eval I: Assessment Summary Airway patent Yes 01/27/25 15:06 BINDING CUTTER SYNTHETIC [email or web address] Spontaneous unlabored Yes 01/27/25 15:06 BINDING CUTTER SYNTHETIC CLOTH.[email or web address] respirations Mental status Awake,Calm 01/27/25 15:06 BINDING CUTTER SYNTHETIC CLOTH.[email or web address] nausea No 01/27/25 15:06 BINDING CUTTER SYNTHETIC CLOTH.[email or web address] Vomiting No 01/27/25 15:06 BINDING CUTTER SYNTHETIC [email or web address] Anesthesia Postop Eval I: Fluid Summary Crystalloid volume administer 1,400 01/27/25 15:06 BINDING CUTTER SYNTHETIC CLOTH.[email or web address] (ml) Colloids volume administered ( ml) Blood Product volume administered (ml) Total IV fluid infused 1,400 01/27/25 15:06 BINDING CUTTER SYNTHETIC CLOTH.[email or web address] Anesthesia Postop Eval I: Summary Notes Anesthesia Complication No 01/27/25 15:06 BINDING CUTTER SYNTHETIC CLOTH.[email or web address] Anesthesia Complication Comment: Post-operative progress note Anesthesia: Postop Eval II Evaluation Mental status: Awake Pain Level: 2 nausea: No Vomiting: No
== END 2025-01-27 17:34 | disposition home or self-care (01) ==
LOC: SDC 11:12 → AC 11:14
PROVIDERS: Anesthesiology; PCP Student in an Organized Health Care Education/Training Program; Referring Provider Surgery; Visit Provider Surgery
PROC: (CPT 38500; principal; 2025-01-27 12:45)
DX: R59.0 Localized enlarged lymph nodes (principal); E11.9 Type 2 diabetes mellitus without complications; I10 Essential (primary) hypertension; E78.00 Pure hypercholesterolemia, unspecified; Z79.84 Long term (current) use of oral hypoglycemic drugs; Z79.01 Long term (current) use of anticoagulants; Z79.899 Other long term (current) drug therapy
CPT/HCPCS: 38510; 00320; 36416; 82962; 85610; 88304; 88305; A4648

== ENCOUNTER 2025-02-01 19:59 | Inpatient (IN) | payer MEDICARE, OTHER, SELFPAY ==
[2025-02-01] VITALS (11 sets, daily range): BP systolic 158–194; BP diastolic 70–124; PULSE 66–109; RESP 14–20; TEMP 36.6–37.2; O2SAT 96–99; BMI 25.9
--- NOTE | 2025-02-01 20:08 | CT_ITS ---
PROCEDURE: STROKE BRAIN/HEAD WITHOUT CONT 02/01/2025 REASON FOR EXAM: NEURO DEFICIT, ACUTE, STROKE SUSPECTED TECHNIQUE: STROKE BRAIN/HEAD WITHOUT CONT Coronal and Sagittal reconstruction series were provided. One or more dose reduction techniques were used (e.g., Automated exposure control, adjustment of the mA and/or kV according to patient size, use of iterative reconstruction technique. RADIATION DOSE SUMMARY: CTDlvol: 44.99 mGy DLP: 829.85 mGycm COMPARISON: 09/06/2022 FINDINGS: No acute intracranial hemorrhage, extra-axial collection, mass effect or evidence of acute infarct. Mild generalized brain parenchymal volume loss, and chronic microangiopathic changes. 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 Atherosclerotic vascular calcifications. Absent chenega ocular lenses. Intact skull base and calvarium. Right maxillary sinus mucous retention cyst/polyp. CT/STROKE Brain/Head without Cont IMPRESSION: No evidence of acute intracranial pathology. Mild generalized volume loss and chronic microangiopathic changes. Reading Location: [id number]
--- NOTE | 2025-02-01 20:08 | EKG12_ITS ---
Test Reason : DYSRHYTHMIA Blood Pressure : */* mmHG Vent. Rate : 72 BPM Atrial Rate : 72 BPM P-R Int : 130 ms QRS Dur : 84 ms QT Int : 400 ms P-R-T Axes : 63 27 -17 degrees QTcB Int : 438 ms Normal sinus rhythm Nonspecific ST and T wave abnormality Abnormal ECG Confirmed by FRIDA ASIF, PAPI ([id number]), editor in chief MENDOZA EVANS ([id number]) on 02/02/2025 1:03:47 PM Referred By: Confirmed By: PAPI GALICIA MD
--- NOTE | 2025-02-01 20:17 | CT_ITS ---
PROCEDURE: STROKE CTA HEAD AND NECK W/CON 02/01/2025 REASON FOR EXAM: NEURO DEFICIT, ACUTE, STROKE SUSPECTED TECHNIQUE: STROKE CTA HEAD AND NECK W/CON Multiplanar Sagittal and Coronal images were obtained. 3D and MIP post processing was performed. CONTRAST: Isovue 370 VOLUME: 100 mL One or more dose reduction techniques were used (e.g., Automated exposure control, adjustment of the mA and/or kV according to patient size, use of iterative reconstruction technique). RADIATION DOSE SUMMARY: DLP: 801.85 mGycm COMPARISON: CTA head/neck 11/24/2024. FINDINGS: CTA HEAD: No acute large vessel intracranial arterial occlusion or significant flow- limiting stenosis. Bilateral anterior cerebral artery A1 segments in the anterior communicating artery are patent. There is a single A2 segment supplied from the right A1 which may represent azygous MARSHA anatomic variant, versus a chronically compensated left A2 occlusion, unchanged from prior exam. Remainder of the major intracranial arterial vasculature is normal and widely patent. No aneurysm. CTA NECK: Conventional aortic arch branching. Bilateral cervical carotid and codominant vertebral arteries are patent without any high-grade flow-limiting stenosis. Atherosclerotic plaque at the carotid artery bifurcations with mild, proximally 50% narrowing of the proximal left ICA. Partial retropharyngeal course of the left carotid artery. Widely patent right cervical ICA with evidence of prior carotid endarterectomy procedure. Atherosclerotic plaque along the carotid siphons and distal V4 vertebral artery segments, without significant luminal narrowing. No luminal irregularity to suggest aneurysm or dissection. NON-ANGIOGRAPHIC FINDINGS: Interval increased size/extent of multiple enlarged and necrotic left cervical lymph nodes. For example, an ill-defined bulky lymph node conglomerate with central necrosis deep to the left sternocleidomastoid in the left medial supraclavicular station, increased in size with heterogeneous postoperative changes of reported recent percutaneous biopsy, with scattered foci of subcutaneous emphysema. Slightly enlarged superficial left intraparotid necrotic lymph node multiple additional nonenlarged cervical lymph nodes are nonspecific. No enlarged upper mediastinal lymph nodes are seen. Numerous punctate calcifications within the bilateral parotid glands, suggestive of sequelae of Sjogren syndrome or other chronic inflammation. Multilevel degenerative changes of the imaged spine. No aggressive osseous lytic or blastic lesion. CT/STROKE CTA Head AND Neck W/Con IMPRESSION: No new intracranial or cervical large vessel arterial occlusion or flow-limitin g stenosis. 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 This may represent azyg ous MARSHA anatomic variant versus a chronically occluded and compensated left MARSHA A2 occlusion. Mild roughly 50% stenosis of the proximal left cervical ICA. Widely patent rig ht cervical ICA with evidence of prior carotid endarterectomy procedure. Interval progression of multiple enlarged and necrotic left cervical lymph node s; highly concerning for underlying metastatic disease. Recent biopsy changes as noted. Findings discussed via telephone with provider Parvez Thornton 02/01/2025 at 8 p.m. 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 Reading Location: [id number]
--- NOTE | 2025-02-01 20:17 | EX.ED.DYSGE1 ---
HPI History of Present Illness Chief Complaint: Hypoglycemia Informant: patient and family Narrative Narrative: Brought in by son worsening confusion. Last normal at noon by his siblings. Apparently patient wet the bed yesterday family came and saw him at noon. They came back around 6 PM he was confused with slurred speech. He did report dysuria. 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 He is on warfarin for history of paroxysmal A-fib. In addition 5 days ago had biopsy the lymph nodes left neck. He started his Coumadin 2 days ago. Brought into the ED reported blood glucose was 28. He is on oral medications. [facility] Medical History Wears dentures History of pain when walking History of echocardiogram Normal Holter exam Cardiology follow-up encounter PAF (paroxysmal atrial fibrillation) History of stroke Macrocytic anemia Thrombocytopenia Atrial fibrillation with rapid ventricular response Vision loss, right eye Wears partial dentures Wears glasses High cholesterol Easy bruising Excessive bleeding Non-smoker History of pain when walking Carotid stenosis, right Hypercholesteremia Hypertension Diabetes mellitus Home Medications ?Medication ?Instructions ?Recorded ?Last Taken ?Type gabapentin 300 mg capsule 900 mg PO TID PAIN 09/06/22 01/27/25 History glimepiride 4 mg tablet 4 mg PO BID DIABETES 09/06/22 01/23/23 History [id number] C-Mn 500 1 cap PO DAILY SUPPLEMENT 09/06/22 01/23/23 History mg-400 mg capsule (Glucosamine Chondroitin Maximum Strength) metformin 750 mg tablet,extended 750 mg PO BID DIABETES 09/06/22 01/24/23 History release 24 hr magnesium oxide 500 mg capsule 500 mg PO DAILY SUPPLEMENT 09/10/22 01/23/23 History cholecalciferol (vitamin D3) 25 25 mcg PO DAILY SUPPLEMENT 09/13/22 01/23/23 History mcg (1,000 unit) capsule (Vitamin D3) meloxicam 7.5 mg tablet 7.5 mg PO PRN PRN FOOT PAIN 09/13/22 01/23/23 History simvastatin 20 mg tablet 20 mg PO DAILY 10/11/22 01/23/23 History clobetasol 0.05 % topical ointment 1 applic topical DAILY 07/10/23 Unknown History (Temovate) lamotrigine 25 mg tablet 25 mg PO DAILY PT UNSURE 01/15/24 01/27/25 History losartan 50 mg tablet 50 mg PO QDAY 01/15/24 01/27/25 History potassium gluconate 595 mg (99 mg) 595 mg PO DAILY 01/13/25 Unknown History tablet warfarin 4 mg tablet 4 mg PO DAILY 01/13/25 01/22/25 History Allergy/AdvReac Type Severity Reaction Status Date / Time pregabalin (From Lyrica) AdvReac Other Verified 02/01/25 20:07 Surgical History History of right-sided carotid endarterectomy Hx of bilateral cataract extraction Hx of colonoscopy Hx of total knee replacement Hx of hernia repair Hx laparoscopic cholecystectomy Social History Smoking Status: Never smoker ROS ROS ED Constitutional Constitutional ED: Denies chills, fever(s) or sweats ENT ENT ED: Denies sore throat Cardiovascular Cardiovascular: Denies chest pain, leg edema, palpitations or racing heartbeat Respiratory/Chest Respiratory/Chest: Denies cough, dyspnea or dyspnea on exertion Gastrointestinal Gastrointestinal: Denies abdominal pain, diarrhea, nausea or vomiting Genitourinary Genitourinary ED: Reports dysuria; Denies hematuria or urinary frequency Musculoskeletal Musculoskeletal: Denies back pain, extremity pain or neck pain Integumentary Denies rash or wounds Neurologic Neurologic: Reports other Details: Confusion with slurred speech ; Denies headache(s), paresthesias or weakness EXAM Physical Exam Const Vital Signs: 02/01/25 20:01 02/01/25 20:06 02/01/25 20:19 Temperature 98.4 F Temperature Source Oral Pulse Rate 70 Respiratory Rate 14 Respiratory Effort Normal Respiratory Pattern Normal Blood Pressure 194/124 H Blood Pressure Mean 147 Pulse Ox 96 96 Oxygen Delivery Method Room Air Room Air 02/01/25 20:23 02/01/25 20:38 02/01/25 21:00 Temperature 98.9 F 98.6 F 98.8 F Temperature Source Oral Oral Oral Pulse Rate 73 71 67 Respiratory Rate 20 H 18 18 Respiratory Effort Respiratory Pattern Blood Pressure 184/71 H 168/70 H 166/70 H Blood Pressure Mean 108 102 102 Pulse Ox 99 98 98 Oxygen Delivery Method Room Air Room Air Room Air 02/01/25 21:08 02/01/25 21:30 02/01/25 22:00 Temperature 98.6 F 98.8 F 98.4 F Temperature Source Oral Oral Oral Pulse Rate 69 66 66 Respiratory Rate 18 18 18 Respiratory Effort Respiratory Pattern Blood Pressure 166/83 H 166/70 H 166/70 H Blood Pressure Mean 110 102 102 Pulse Ox 98 98 97 Oxygen Delivery Method Room Air Room Air Room Air 02/01/25 22:00 02/01/25 22:30 Temperature 98.4 F 98.4 F Temperature Source Oral Oral Pulse Rate 66 74 Respiratory Rate 18 18 Respiratory Effort Respiratory Pattern Blood Pressure 166/70 H 158/70 H Blood Pressure Mean 102 99 Pulse Ox 98 98 Oxygen Delivery Method Room Air Room Air Positive well nourished and well developed Constitutional Narrative: Slightly confused General Appearance ED: well developed HEENT Reports moist mucous membranes normocephalic and atraumatic Eyes General Eye ED: Yes normal appearance of both eyes Neck Neck Narrative: Left anterior neck dressing with ecchymosis and swelling around the area with healing ecchymosis left upper chest. Chest Wall Chest: Negative for tenderness Resp normal respiratory effort and normal air movement Effort and Inspection: symmetric chest movement; Negative for respiratory distress Cardio regular rate, regular rhythm and no murmurs Peripheral Pulses: pulses 2+ throughout GI normal to inspection, nondistended, normoactive bowel sounds and non-tender Palpation: Negative for guarding or rebound tenderness present Extremity normal to inspection General Extremety ED: Negative for edema or tenderness General Extremity: Negative for edema Neuro no sensory deficits noted Neuro Narrative: Alert to person and place. NIH of 3 slight confusion, initially told me his age was 78 cannot tell me the month. Speech is improving per son. Sensorium / Orientation: awake and alert Skin Skin Narrative: See above NIHSS NIHSS Initial: 1a Level of Consciousness: 1 1b LOC Questions (Score 2 if aphasic/stupor): 2 1c LOC Commands (Only score 1st attempt): 0 2 Best Gaze (If aphasic, use reflexive mvmts.): 0 3 Visual: 0 4 Facial Palsy: 0 5 Motor Arm Right (UN = amputation/fusion): 0 5 Motor Arm Left: 0 6 Motor Leg Right: 0 6 Motor Leg Left: 0 7 Limb ataxia (Only + if out of proportion): 0 8 Sensory (Aphasia/stupor=0 or 1, coma=2): 0 9 Best Language: 0 10 Dysarthria (mute, coma=2, intubated=UN): 0 11 Extinction and Inattention (only scored if +): 0 Total Score: 3 MDM MDM MDM Narrative Medical decision making narrative: Interventions / MDM: Differential diagnosis: Altered mental status, hypoglycemic event, slurred speech, TIA Diagnosis considered but do not suspect: Intracranial hemorrhage however CT negative. UTI however urine negative. My EKG interpretation: Sinus rate of 72, no ST changes isolated T wave version leads III. Nonspecific. Imaging independently reviewed and interpreted by myself: CT brain: No acute process. CT angiogram head and neck: No LVO. Absent MARSHA A2 branch on the left side unchanged. 1 view chest x-ray: No acute process. Also read by radiology. External documents reviewed: N/A Test considered but not ordered:N/A ED course: Patient NIH of 3 actively infusing D10 at this time son states speech is improving. Paroxysmal A-fib sounding regular on exam. Slightly subtherapeutic with it being held for his biopsy. Last normal 8 hours ago outside the window for TNK, in addition had biopsy in the neck region. Hypoglycemia with dysuria likely contributing to his confusion. He has stroke history. Stroke workup did get initiated to rule out any large vessel occlusion. I did speak with telestroke neurologist on the phone. Agrees with current plan at this time. Will plan on admitting here with acute infusion unless there is a large vessel occlusion. 2100: Discussed with radiologist old basal ganglia infarct. Angiogram not in acute he does not have a left MARSHA he states possibly his anatomy versus chronic occlusion which was not similar to his last scan. Reports the lymph node mass on his left side that is little worse than previous. I discussed he is status post biopsy of this area. 2129: Patient still cannot tell the year however did not know the month still confused. Glucose was 96. Urine in the lab at this time. 2214: Urine negative for infection. Currently still not back to baseline sugars up and more stable. Bedside swallow by nursing with p.o. intake at this time. Added chest x-ray for his confusion. Will discuss with hospitalist for admission. I discussed with Dr. Porras for admission. Chest x-ray returned negative. Re-evaluation: stable Disposition discussed with patient/family/significant other: Patient and son Case discussed with consulting clinician: Telestroke neurologist, hospitalist This note was generated with [employer] dictation software. It may contain incorrect words, spelling, and punctuation that were not noted in checking the note before signing. Lab Data Attestation: I reviewed the patient's lab results. Labs: Laboratory Results - last 24 hr 02/01/25 02/01/25 02/01/25 21:11 21:14 21:58 WBC RBC Hgb Hct MCV MCH MCHC RDW Std Deviation RDW Coeff of [place] Plt Count MPV Immature Gran % (Auto) Neut % (Auto) Lymph % (Auto) [place] % (Auto) Eos % (Auto) Baso % (Auto) Absolute Neuts (auto) Absolute Lymphs (auto) Nucleated RBC % PT INR APTT Sodium Potassium Chloride Carbon Dioxide Anion Gap BUN Creatinine Estim Creat Clear Calc Est GFR (MDRD) Non-Af BUN/Creatinine Ratio Glucose Calcium Troponin T High Sens Urine Color Yellow Urine Clarity Clear Urine pH 6.0 Ur Specific [place] 1.015 Urine Protein 500 H Urine Glucose (UA) Normal Urine Ketones Negative Urine Occult Blood 50 H Urine Nitrite Negative Urine Bilirubin Negative Urine Urobilinogen Normal Ur Leukocyte Esterase Negative Urine RBC 0-5 SEEN Urine WBC 0-5 SEEN Ur Squamous Epith Cells 0-5 SEEN Urine Bacteria 0 SEEN Hyaline Casts 0-5 SEEN Urine Mucus 0 SEEN POC Glucose 96 73 L 02/01/25 Unknown WBC 8.2 RBC 4.12 L Hgb 12.8 L Hct 37.3 L MCV 90.5 MCH 31.1 MCHC 34.3 RDW Std Deviation 45.1 H RDW Coeff of [place] 13.6 Plt Count 144 L MPV 9.0 Immature Gran % (Auto) 3.100 H Neut % (Auto) 75.5 H Lymph % (Auto) 9.8 L [place] % (Auto) 9.8 Eos % (Auto) 0.9 Baso % (Auto) 0.9 Absolute Neuts (auto) 6.2 Absolute Lymphs (auto) 0.80 L Nucleated RBC % 0 PT 16.6 H INR 1.3 APTT 29.7 Sodium 144 Potassium 3.4 Chloride 108 Carbon Dioxide 21.2 Anion Gap 14 BUN 26 H Creatinine 0.83 Estim Creat Clear Calc 73.35 Est GFR (MDRD) Non-Af 90 BUN/Creatinine Ratio 30.8 H Glucose 31 L* Calcium 8.5 Troponin T High Sens 33 H Urine Color Urine Clarity Urine pH Ur Specific [place] Urine Protein Urine Glucose (UA) Urine Ketones Urine Occult Blood Urine Nitrite Urine Bilirubin Urine Urobilinogen Ur Leukocyte Esterase Urine RBC Urine WBC Ur Squamous Epith Cells Urine Bacteria Hyaline Casts Urine Mucus POC Glucose Radiography Diagnostic Testing: Clinical Impression(s) from Imaging Studies Brain CT 02/01/25 20:08 IMPRESSION: No evidence of acute intracranial pathology. Mild generalized volume loss and chronic microangiopathic changes. Reading Location: [facility] Head/Neck CTA 02/01/25 20:17 IMPRESSION: No new intracranial or cervical large vessel arterial occlusion or flow-limiting stenosis. 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 This may represent azygous MARSHA anatomic variant versus a chronically occluded and compensated left MARSHA A2 occlusion. Mild roughly 50% stenosis of the proximal left cervical ICA. Widely patent right cervical ICA with evidence of prior carotid endarterectomy procedure. Interval progression of multiple enlarged and necrotic left cervical lymph nodes; highly concerning for underlying metastatic disease. Recent biopsy changes as noted. Findings discussed via telephone with provider Parvez Thornton 02/01/2025 at 8 p.m. OFFICE SUPPORT ASSISTANT. Reading Location: [facility] Chest X-Ray 02/01/25 22:16 IMPRESSION: No acute cardiopulmonary disease. Reading Location: [facility] Critical Care Time Critical Care Time: Yes Critical care time (excluding procedures): 30-74 minutes, Discussing w/Patient &/or Family/Liner Assembler, Discussing w/Consultants, Arranging Admission or Transfer, Performing Direct Patient Care at Bedside and - (40 minutes) Discharge Plan Dx/Rx/DC Orders Clinical Impression: AMS (altered mental status), Hypoglycemia, Subtherapeutic international normalized ratio (INR), Status post fine needle biopsy, History of CVA in adulthood, Slurred speech Disposition Disposition: [facility]
[2025-02-01 20:39] LABS: Hematocrit 37.3 % (40-54); Hemoglobin 12.8 g/dL (13.0-16.5); Immature Granulocytes Count 0.250 X10^3/uL (0.0-0.0); Mean Corp Hgb Conc 34.3 g/dL (32-36); Mean Corpuscular Volume 90.5 fL (80-94); Mean Platelet Vol. 9.0 fl (6.2-12.0); NRBC Flagged by Analyzer 0 % (0-5); Platelet Count 144 K/mm3 (150-450); RBC Distribution Width CV 13.6 % (11.6-14.6); RBC Distribution Width SD 45.1 fl (35.1-43.9); Red Blood Count 4.12 M/mm3 (4.6-6.2); White Blood Count 8.2 K/mm3 (4.4-11.0)
[2025-02-01 20:44] LABS: Prothrombin Time (Protime)PT. 16.6 SECONDS (11.7-14.9)
[2025-02-01 20:45] LABS: Partial Thromboplast Time 29.7 Seconds (24.1-36.2)
--- NOTE | 2025-02-01 21:13 | CM.ED ---
Social Work Reason for visit: Stroke Alert SW met with patients son while patient was in testing. Son stated that patient unexpectedly lost his of 20 years 3 weeks ago. Son reports that patient has handled it as well as can be expected, but son is concerned that patients was helping patient more than they realized. Son states that patient has continued to stay on his own and usually spends weekends at his camper. Son also states that patient has a great support system including family and neighbors that help as needed. Emotional support provided. No further needs at this time. Swathi Connelly, MEASUREMENT ADVISOR, CLOUD OPERATIONS ENGINEER
[2025-02-01 21:16] LABS: Troponin T High Sensitivity 33 ng/L (<=22)
[2025-02-01 21:17] LABS: Mucous, Urine 0 SEEN /hpf (<or=2+)
[2025-02-01 21:23] LABS: Color, Urine Yellow (Yellow); Glucose, Dipstick Normal (Normal); Ketone-Dipstick Negative (Negative); Leukocyte Esterase-Dipstick Negative /ul (Negative); Nitrite-Dipstick Negative (Negative); Occult Blood-Urine 50 /ul (Negative); Protein-Dipstick 500 mg/dl (Negative); Specific Gravity, Urine 1.015 (1.002-1.030); Urine Bilirubin Dipstick Negative (Negative)
[2025-02-01 21:32] LABS: Anion Gap 14 (5-15); BUN 26 mg/dL (4-19); BUN/Creat Ratio 30.8 RATIO (10-20); Calcium,Total 8.5 mg/dL (7.6-11.0); Carbon Dioxide 21.2 mmol/L (21.0-32.0); Chloride 108 mmol/L (98-108); Estimated Creatinine Clearance 73.35 ml/min (50-250); Glucose 31 mg/dL (70-99); Potassium 3.4 mmol/L (3.3-5.1)
[2025-02-01 21:44] LABS: Red Blood Cells-Urine 0-5 SEEN /hpf (0-5); Squamous Epithelial Cells - UA 0-5 SEEN /hpf (0-5)
--- NOTE | 2025-02-01 22:16 | RAD_ITS ---
PROCEDURE: CHEST 1 VIEW (PORTABLE) 02/01/2025 REASON FOR EXAM: ALTERED MENTAL STATUS TECHNIQUE: Frontal view of the chest. COMPARISON: 01/24/2023 FINDINGS: Lungs/Pleura: Clear. No pneumothorax or pleural effusion. Heart/Mediastinum: Within normal limits. Bones/Soft tissues: Mild degenerative changes of the spine. RAD/Chest 1 View (Portable) IMPRESSION: No acute cardiopulmonary disease. Reading Location: [id number]
--- NOTE | 2025-02-01 22:34 | HP.PCM_ITS ---
HPI - General General Date of Admission: 02/01/25 Date of Service: 02/01/25 Chief Complaint: Confusion, hypoglycemia HPI Narrative LARA SOLANO, is a 79 M who presents to the emergency room with chief complaint of confusion. Patient has significant past medical history of stroke in 2022 and paroxysmal atrial fibrillation for which he takes Coumadin. Patient was off his anticoagulation for a biopsy of the left neck lymph node done on Saturday last week and subsequently resumed his Coumadin 2 days ago. When he came to the emergency room his initial glucose was 28. Patient lost his spouse 1 month ago and has been grieving. Patient was incontinent to urine in his bed yesterday and was last known well at noon earlier today. Family came back at approximately 6:00 this evening and he was confused with slurred speech but no other neurologic deficits. Patient was treated in the emergency room for hypoglycemia and CT scanning and CT angiogram were done that showed no acute changes. Patient speech improved as his sugar returned to normal. Patient currently denies any chest pain, shortness of breath fevers or chills or nausea vomiting or diarrhea. Patient will be admitted to the progressive care unit for possible TIA with MRI in the morning and management of hypoglycemia. [facility] Medical History Wears dentures History of pain when walking History of echocardiogram Normal Holter exam Cardiology follow-up encounter PAF (paroxysmal atrial fibrillation) History of stroke Macrocytic anemia Thrombocytopenia Atrial fibrillation with rapid ventricular response Vision loss, right eye Wears partial dentures Wears glasses High cholesterol Easy bruising Excessive bleeding Non-smoker History of pain when walking Carotid stenosis, right Hypercholesteremia Hypertension Diabetes mellitus Home Medications ?Medication ?Instructions ?Recorded ?Last Taken ?Type gabapentin 300 mg capsule 900 mg PO TID PAIN 09/06/22 01/27/25 History glimepiride 4 mg tablet 4 mg PO BID DIABETES 3 01/23/23 History izzxajsggpr-[id number]-iab C-Mn 500 1 cap PO DAILY SUPP LEMENT 09/06/22 01/23/23 History mg-400 mg capsule (Glucosamine Chondroitin Maximum Strength) metformin 750 mg tablet,extended 750 mg PO BID DIABETE S 09/06/22 01/24/23 History release 24 hr magnesium oxide 500 mg capsule 500 mg PO DAILY SUPPLEM ENT 09/10/22 01/23/23 History cholecalciferol (vitamin D3) 25 25 mcg PO DAILY SUPPLE MENT 09/13/22 01/23/23 History mcg (1,000 unit) capsule (Vitamin D3) meloxicam 7.5 mg tablet 7.5 mg PO PRN PRN FOOT PAIN 09/13/22 01/23/23 History simvastatin 20 mg tablet 20 mg PO DAILY 10/11/2201/05 History clobetasol 0.05 % topical ointment 1 applic topical DA LUCERO 07/10/23 Unknown History (Temovate) lamotrigine 25 mg tablet 25 mg PO DAILY PT UNSURE 04/3001/27/25 History losartan 50 mg tablet 50 mg PO QDAY 01/15/2401/27 History potassium gluconate 595 mg (99 mg) 595 mg PO DAILY 04/01 Unknown History tablet warfarin 4 mg tablet 4 mg PO DAILY 01/13/2501/22 History Allergy/AdvReac Type Severity Reaction Status Date / Time pregabalin (From Lyrica) AdvReac Other Verified 02/01/25 20:07 Surgical History History of right-sided carotid endarterectomy Hx of bilateral cataract extraction Hx of colonoscopy Hx of total knee replacement Hx of hernia repair Hx laparoscopic cholecystectomy Social History Smoking Status: Never smoker ROS Constitutional Constitutional: Denies chills or fever(s) Eyes Eyes: Denies blurry vision ENT HEENT: Denies abnormal hearing Cardiovascular Cardiovascular: Denies chest pain or edema Respiratory/Chest Respiratory/Chest: Denies cough or shortness of breath at rest Gastrointestinal Gastrointestinal: Denies abdominal pain Genitourinary Genitourinary: Denies dysuria Musculoskeletal Musculoskeletal: Denies back pain Integumentary Integumentary: Reports dry skin Neurologic Neurologic: Reports abnormal speech and confusion Psychiatric Psychiatric: Reports depression; Denies anxiety Vital Signs Vital Signs Vital Signs: 02/01/25 20:01 02/01/25 20:06 02/01/25 20:19 Temperature 98.4 F Temperature Source Oral Pulse Rate 70 Respiratory Rate 14 Respiratory Effort Normal Respiratory Pattern Normal Blood Pressure 194/124 H Blood Pressure Mean 147 Pulse Ox 96 96 Oxygen Delivery Method Room Air Room Air 02/01/25 20:23 02/01/25 20:38 02/01/25 21:00 Temperature 98.9 F 98.6 F 98.8 F Temperature Source Oral Oral Oral Pulse Rate 73 71 67 Respiratory Rate 20 H 18 18 Respiratory Effort Respiratory Pattern Blood Pressure 184/71 H 168/70 H 166/70 H Blood Pressure Mean 108 102 102 Pulse Ox 99 98 98 Oxygen Delivery Method Room Air Room Air Room Air 02/01/25 21:08 02/01/25 21:30 02/01/25 22:00 Temperature 98.6 F 98.8 F 98.4 F Temperature Source Oral Oral Oral Pulse Rate 69 66 66 Respiratory Rate 18 18 18 Respiratory Effort Respiratory Pattern Blood Pressure 166/83 H 166/70 H 166/70 H Blood Pressure Mean 110 102 102 Pulse Ox 98 98 97 Oxygen Delivery Method Room Air Room Air Room Air 02/01/25 22:00 Temperature 98.4 F Temperature Source Oral Pulse Rate 66 Respiratory Rate 18 Respiratory Effort Respiratory Pattern Blood Pressure 166/70 H Blood Pressure Mean 102 Pulse Ox 98 Oxygen Delivery Method Room Air Weight Weight: 176 lb 2.389 oz Body Mass Index (BMI) 25.9 Physical Exam Const alert and oriented x3 General Appearance: cooperative and well developed HEENT normocephalic and head/scalp atraumatic Eyes PERRL and EOMs intact bilaterally Neck supple Resp normal respiratory effort, normal air movement and clear to auscultation bilaterally Cardio regular rate, regular rhythm, S1 normal heart sound and S2 normal heart sound GI normal to inspection, nondistended, normoactive bowel sounds Extremity normal capillary refill General Extremity: Negative for edema Skin General Skin Exam: no breakdown Neuro CN's II-XII intact bilaterally, no focal motor deficits and no sensory deficits noted Speech: speech normal Motor Exam: strength 5/5 throughout Psych thought process normal and cooperative Mood & Affect: depressed Results Lab / Micro Data 02/01/25 Unknown 02/01/25 Unknown Labs: Laboratory Results - last 24 hr 02/01/25 21:11: Urine Color Yellow, Urine Clarity Clear, Urine pH 6.0, Ur Specific [place] 1.015, Urine Protein 500 H, Urine Glucose (UA) Normal, Urine Ketones Negative, Urine Occult Blood 50 H, Urine Nitrite Negative, Urine Bilirubin Negative, Urine Urobilinogen Normal, Ur Leukocyte Esterase Negative, Urine RBC 0-5 SEEN, Urine WBC 0-5 SEEN, Ur Squamous Epith Cells 0-5 SEEN, Urine Bacteria 0 SEEN, Hyaline Casts 0-5 SEEN, Urine Mucus 0 SEEN 02/01/25 21:14: POC Glucose 96 02/01/25 21:58: POC Glucose 73 L 02/01/25 : WBC 8.2, RBC 4.12 L, Hgb 12.8 L, Hct 37.3 L, MCV 90.5, MCH 31.1, MCHC 34.3, RDW Std Deviation 45.1 H, RDW Coeff of [place] 13.6, Plt Count 144 L, MPV 9.0, Immature Gran % (Auto) 3.100 H, Neut % (Auto) 75.5 H, Lymph % (Auto) 9.8 L, [place] % (Auto) 9.8, Eos % (Auto) 0.9, Baso % (Auto) 0.9, Absolute Neuts (auto) 6.2, A bsolute Lymphs (auto) 0.80 L, Nucleated RBC % 0, PT 16.6 H, INR 1.3, APTT 29.7, Sodium 144, Potassium 3.4, Chloride 108, Carbon Dioxide 21.2, Anion Gap 14, BUN 26 H, Creatinine 0.83, Estim Creat Clear Calc 73.35, Est GFR (MDRD) Non-Af 90, B UN/Creatinine Ratio 30.8 H, Glucose 31 L*, Calcium 8.5, Troponin T High Sens 33 H Imaging Radiology Impression Brain CT 02/01/25 20:08 IMPRESSION: No evidence of acute intracranial pathology. Mild generalized volume loss and chronic microangiopathic changes. Reading Location: [id number] Head/Neck CTA 02/01/25 20:17 IMPRESSION: No new intracranial or cervical large vessel arterial occlusion or flow-limiting stenosis. 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 This may represent azygous MARSHA anatomic variant versus a chronically occluded and compensated left MARSHA A2 occlusion. Mild roughly 50% stenosis of the proximal left cervical ICA. Widely patent right cervical ICA with evidence of prior carotid endarterectomy procedure. Interval progression of multiple enlarged and necrotic left cervical lymph nodes; highly concerning for underlying metastatic disease. Recent biopsy changes as noted. Findings discussed via telephone with provider Parvez Thornton 02/01/2025 at 8 p.m. MEDICAL BILLING AND CODING SPECIALIST. Reading Location: [facility] Assessment & Plan Assessment/Plan (1) History of CVA in adulthood: (2) Slurred speech: (3) Status post fine needle biopsy: (4) Subtherapeutic international normalized ratio (INR): (5) Hypoglycemia: (6) AMS (altered mental status): (7) A-fib: (8) Anticoagulant long-term use: (9) Diabetes mellitus: PLAN: Plan 1 altered mental status?patient was hypoglycemic in the emergency room and treated with D10 and showed improvement. CT scan of head and CT angiogram head and neck were negative for acute findings. Patient is status postbiopsy of neck lymph node left side and was off anticoagulation for that procedure and therefore there is some risk due to atrial fibrillation that he may have had an event therefore he will be monitored in the progressive care unit for neurologic evaluation and an MRI ordered in the morning. BMP repeat in the morning 2. Slurred speech?resolved 3. Atrial fibrillation?continue Coumadin repeat INR tomorrow 4. Diabetes?hold medications due to hypoglycemia and can resume them when we are sure patient is eating adequately 5. DVT prophylaxis?patient is already on Coumadin 6. Hypoglycemic episode perhaps secondary to not eating well due to recent loss of spouse 1 month ago and poor self-care. Patient will need monitored as an outpatient by his family as they seem to be actively involved in his care Charges/Coding Visit Charges Inpatient E&M: 90429 Init Hosp L2
[2025-02-01 23:00] LABS: Troponin T High Sens 2 HR 33 ng/L (<=22)
--- OUTSIDE RECORDS SUMMARY | 2025-02-01 23:32 | XMS RPT_ITS | CCD ---
Author Organization [facility] CliniSyky Care Team Providers Care Oracle Ebs Consultant Name Role Phone HARLAN FORD DO Primary Care Physician Harlan Ford DO Primary Care Provider Harlan Ford DO Primary Care Provider Dr. Harlan Ford Primary Care Provider Dr. Harlan Ford Referring Provider Dr. Sony López Attending Provider [phone] Sony López Admit Provider Dr. Sony López Referring Provider [phone] Sony López Other Provider Dr. Sony Roberts Other Provider Dr. Harlan Ford Primary Care Provider Dr. Harlan Ford Referring Provider Dr. Sony López Attending Provider [phone] Parvez Thornton Emergency Provider Dr. Manan Mendosa Admit Provider Dr. Manan Mendosa Attending Provider Dr. Manan Mendosa Other Provider Dr. Harlan Ford Primary Care Provider Dr. Phil Cochran Attending Provider Teressa Wetzel Other Provider Unavailable Dr. Phil Cochran Other Provider Dr. Carrillo Reese Other Provider Dr. Clnit Chen Other Provider Unavailable Dr. Prieto Shah Other Provider Dr. Xavier Hu Other Provider Dr. Sony Coyne Other Provider Dr. Eligio Barger Other Provider Dr. Paul Powell Other Provider Dr. Dora Mcnair Other Provider Dr. Radha Yang Other Provider Dr. Gilson Antunez Other Provider Dr. Heladio Santizo Other Provider Dr. Thomas Rocha Other Provider Roof PROJECT STRUCTURAL ENGINEER, PROJECT STRUCTURAL ENGINEER-C Bubba Morley Other Provider Morales PROJECT STRUCTURAL ENGINEER, PROJECT STRUCTURAL ENGINEER-C Teressa Other Provider SIDDHARTHA Chen Other Provider Dr. Gertrude Momin Attending Provider Dr. Gertrude Momin Other Provider Dr. Harlan Ford Referring Provider SIDDHARTHA Chen Attending Provider Dr. Sony López Attending Provider Dr. Harlan Ford Primary Care Provider Dr. Harlan Ford Referring Provider SIDDHARTHA Chen Attending Provider Dr. Harlan Ford Primary Care Provider Dr. Harlan Ford Referring Provider SIDDHARTHA Chen Attending Provider Dr. Sony López Attending Provider SIDDHARTHA Morris Referring Provider Harlan Ford DO Primary Care Provider Malik C++ QUANT DEVELOPER.SALES SUPPORT COORDINATOR, Ida Connolly Unavailable Ursula C++ QUANT DEVELOPER.SALES SUPPORT COORDINATOR, Jose Unavailable Logan BIGGS, Dr. Claros Primary Care Provider [phone] Torri Chen Attending Provider Torri Chen Referring Provider Nellie Stein Attending Provider Nellie Stein Referring Provider Maribel ASIF, Dr. Cardoza Attending Provider Coleman DPM, Dr. Fagan Attending Provider Coleman DPM, Dr. Fagan Referring Provider Logan BIGGS, Dr. Claros Primary Care Provider Torri Chen Attending Provider Torri Chen Referring Provider Coleman DPM, Dr. Fagan Attending Provider [place] DPM, Dr. Fagan Referring Provider Logan BIGGS, Dr. Claros Referring Provider Coleman DPM, Dr. Fagan Attending Provider Coleman DPM, Dr. Fagan Referring Provider Dr. Harlan Ford DO Primary Care Provider Torri Chen Attending Provider Torri Chen Referring Provider Dr. Juan Campbell MD Attending Provider Dr. Juan Campbell MD Referring Provider Dr. Harlan Ford DO Primary Care Provider Torri Chen Attending Provider Torri Chen Referring Provider Dr. Harlan Ford DO Primary Care Provider [phone] Torri Chen Attending Provider [phone] Torri Chen Referring Provider [phone] Radha Guzman APRN.CNP Unavailable FORD, HARLAN L Primary Care Unavailable FORD, HARLAN L Attending Unavailable FORD, HARLAN L Primary Care Unavailable FORD, HARLAN L Referring Unavailable FORD, HARLAN L Primary Care Unavailable IDA GAN Referring Unavailabl e FORD, HARLAN L Primary Care Unavailable FORD, HARLAN L Primary Care Unavailable FORD, HARLAN L Attending Unavailable FORD, HARLAN L Primary Care Unavailable FORD, HARLAN L Attending Unavailable FORD, HARLAN L Primary Care Unavailable KALPANA POE Referring Unavailable FORD, HARLAN L Primary Care Unavailable FORD, HARLAN L Attending Unavailable FORD, HARLAN L Primary Care Unavailable FORD, HARLAN L Attending Unavailable FORD, HARLAN L Primary Care Unavailable FORD, HARLAN L Primary Care Unavailable FordDr. Harlan rubio DO Primary Care Provider [phone] Nellie Stein Attending Provider Nellie Stein Referring Provider [phone] Torri Chen Attending Provider [phone] Torri Chen Referring Provider [phone] Dr. Sony López MD Attending Provider [phone] Torri Chen Referring Unavail able Ford, Harlan Primary Care Unavailable Torri Chen Attending Unavail able Sony López Attending Unavailable Ford, Harlan Primary Care Unavailable Ford, Harlan Referring Unavailable Ford, Harlan Primary Care Unavailable Juan Campbell Attending Unavailable Ford, Harlan Referring Unavailable Ford, Harlan Primary Care Unavailable Torri Chen Attending Unavail able Torri Chen Referring Unavail able Nellie Morris Referring Unavailable Nellie Morris Attending Unavailable Ford, Harlan Primary Care Unavailable Ford, Harlan Primary Care Unavailable Juan Campbell Attending Unavailable Juan Campbell Referring Unavailable Sony López Attending Unavailable Arturo Nellie Referring Unavailable Ford, Harlan Primary Care Unavailable Juan Campbell Attending Unavailable Juan Campbell Consulting Unavailable Juan Campbell Referring Unavailable Ford, Harlan Primary Care Unavailable Ford, Harlan Referring Unavailable Nellie Morris Attending Unavailable Ford, Harlan Primary Care Unavailable [place], [place] Primary Care Unavailable Torri Chen Attending Unavail able Torri Chen Referring Unavail able Nellie Morris Attending Unavailable MorrisNellie diallo Referring Unavailable Ford, Harlan Primary Care Unavailable Torri Chen Attending Unavail able Torri Chen Referring Unavail able Ford, [place] Primary Care Unavailable Ford, [place] Primary Care Unavailable Torri Chen Attending Unavail able Torri Chen Referring Unavail able Juan Campbell Referring Unavailable Juan Campbell Attending Unavailable Ford, [place] Primary Care Unavailable Adrian, Juan Referring Unavailable Juan Campbell [facility] Torri Chen Referring Unavail able Ford, [place] Primary Care Unavailable Torri Chen Attending Unavail able Torri Chen Referring Unavail able Ford, [place] Primary Care Unavailable Torri Chen Attending Unavail able Torri Chen Referring Unavail able Ford, Harlan Primary Care Unavailable Torri Chen Attending Unavail able Ford, [place] Primary Care Unavailable Torri Chen Referring Unavail able Torri Chen Attending Unavail able Torri Chen Referring Unavail able Ford, [place] Primary Care Unavailable Torri Chen Attending Unavail able Rylan Cee Referring Unavailable Rylan Cee Attending Unavailable Ford, [place] Primary Care Unavailable Ford, [place] Primary Care Unavailable Torri Chen Attending Unavail able Torri Chen Referring Unavail able Nellie Morris Referring Unavailable Nellie Morris Attending Unavailable [place], [place] Primary Care Unavailable Ford, [place] Primary Care Unavailable Torri Chen Attending Unavail able Torri Chen Referring Unavail able Allergies Allergy Classification Reported Allergen(s) Allergy Type Date of Onset Reaction(s) Facility (20 sources) pregabalin; Translations: [pregabalin] Drug Allergy 06-20-201 1 Other: See Comments, Cough [facility] Comment on above: COUGH (1 source) pregabalin Drug Allergy 5 [facility] Repository Medications Current Medications Medication Drug Class(es) Dates Sig (Normalized) Sig (Original) Blood-Glucose Meter monitoring kit (20 sources) Start: 03-04-2024 Blood-Glucose Meter monitoring kit Glucose Meter of Choice - Kit - Dx: Other DM Code E11.42 Insulin No 1 Each 03/04/2024 Active Start: 03-05-2017 End: 03-04-2024 Blood-Glucose Meter monitori ng kit Glucose Meter of Choice - Kit - Dx: Other DM Code E11.42 Insulin No 1 Each 03/05/2017 03/04/2024 Discontinued Start: 03-05-2017 Blood-Glucose Meter monitoring kit Glucose Meter of Choice - Kit - Dx: Other DM Code E11.42 Insulin No 1 Each 03/05/2017 Active Start: 03-05-2017 Blood-Glucose Meter monitoring kit Glucose Meter of Choice - Kit - Dx: Other DM Code E11.42 Insulin No 1 Each 0 03/05/2017 Active Comment on above: Glucose Meter of Cho ice - Kit - Dx: Other DM Code E11.42 Insulin No cholecalciferol 0.025 mg oral capsule (20 sources) Vitamin D Start: 09-14-19 take 1 capsule by mouth once daily Cholecalciferol (Vitamin D3) (Vitamin D3) 25 mcg (1,000 unit) Capsule Active 25 ug PO DAILY September 13, 2022 1:00am SUPPLEMENT cholecalciferol, vitamin D3, (VITAMIN D3 ORAL) (20 sources) take 1 tablet by mouth once daily cholecalciferol, vitamin D3, (VITAMIN D3 ORAL) Take 1 tablet by mouth once daily. Active take 1 tablet by mouth once suzan y cholecalciferol, vitamin D3, (VITAMIN D3 ORAL) Take 1 tablet by mouth once daily. 0 Active Comment on above: Take 1 tablet by delicia once daily. chondroitin sulfates 400 mg / glucosamine hydrochloride 500 mg oral capsule (20 sources) Start: 04-14-20 07 take 1 tablet by mouth once daily Glucosamine-Chondro it-Vit C-Mn (GLUCOSAMINE CHONDROITIN MAXSTR) 500-400 mg ORAL Cap Take one(1) tablet daily. 0 04/14/2007 Active Comment on above: Take one(1) tablet d aily. clobetasol propionate 0.0005 mg/mg topical ointment (20 sources) Corticosteroid Start: 07-10-19 Clobetasol (Temovate) 0.05 % ointment Active 1 NMA TOPICAL DAILY July 10, 2023 1:00am Start: 09-06-2022 End: 01-24-2023 Clobetasol 0.05 % Solution D iscontinued 1 NMA TOPICAL DAILY September 06, 2022 1:00am January 24, 2023 3:08pm PSORIASIS Start: 12-16-2012 End: 11-26-2023 Clobetasol Propionate (TEMOV ATE) 0.05 % external solution Apply 1 application to affected area once daily as needed (scalp psoriasis). 50 mL 1 11/26/2023 Active Comment on above: Apply to scalp psori asis patches and plaques selectively qday to bid (once or twice a day) as needed and AVOID face, eyes, eyelids, and deep fold areas. Apply 1 application to affected area once daily as needed (scalp psoriasis). COMPOUNDED PRESCRIPTION (20 sources) Start: 10-14-2018 COMPOUNDED PRESCRIPTION Diabetic shoes Dx: E11.65, DM2 Last office visit 05/20/18. 1 Each 10/14/2018 Active Start: 10-14-2018 COMPOUNDED PRE SCRIPTION Diabetic shoes Dx: E11.65, DM2 Last office visit 05/20/18. 1 Each 0 10/14/2018 Active Comment on above: Diabetic shoes Dx: E 11.65, DM2 Last office visit 05/20/18. gabapentin 300 mg oral capsule (20 sources) Anti-epileptic Agent Start: 09-06-2022 take 900 mg by mouth three times daily Gabapentin Active 900 MG PO THREE TIMES A DAY September 06, 2022 1:00am Start: 08-18-2021 gabapentin 300 mg oral capsule Dose : 900 mg = 3 cap(s), Oral, TID, 0 Refill(s) Start Date: 08/18/21 Status: Ordered Start: 05-31-2021 End: 04-06-2025 take 3 capsules by mouth three times daily Gabapentin 300 mg Capsule Active 900 mg PO THREE TIMES A DAY September 06, 2022 1:00am PAIN Comment on above: TAKE 3 CAPSULES 3 TI MES A DAY TAKE 3 CAPSULES BY M OUTH 3 TIMES A DAY glimepiride 4 mg oral tablet (20 sources) Sulfonylurea Start: take 4 mg by mouth once daily Glimepiride Active 4 MG PO DAILY September 06, 2022 1:00am Start: 05-10-2022 End: 12-22-2024 take 1 tablet by mouth twice daily Glimepiride 4 mg Tablet Active 4 mg PO TWICE A DAY September 06, 2022 1:00am DIABETES Start: 09-01-2021 take 1 tablet by delicia twice daily at mealtime glimepiride (AMARYL) 4 mg tablet Take 1 tablet by mouth twice daily with meals. 180 tablet 1 09/01/2021 Active Start: 08-18-2021 glimepiride 4 mg oral tablet Dose : 4 mg = 1 tab(s), Oral, BIDM, 0 Refill(s) Start Date: 08/18/21 Status: Ordered Comment on above: Take 1 tablet by delicia twice daily with meals. Take 1 tablet by delicia two times a day with meals. Ftwzaacqbaa-Jmkhefryh-Ahs C-Mn (Glucosamine Chondroitin Maxstr) 500-400 mg Capsule (20 sources) Start: 09-06-2022 Vcfovltltpx-Ywshdltqd-Jt t C-Mn (Glucosamine Chondroitin Maxstr) 500-400 mg Capsule Active 1 NMA PO DAILY September 06, 2022 1:00am SUPPLEMENT Start: 09-06-2022 Glucosamine-Ch ondroit-Vit C-Mn (Glucosamine Chondroitin Maxstr) 500-400 mg Capsule Active 1 NMA PO DAILY September 06, 2022 1:00am Start: 09-06-2022 take 1 capsule by [facility] daily Azxjzzawimk-Afsgirhmc-Wtg C-Mn (Glucosamine Chondroitin Maxstr) 500-400 mg Capsule Active 1 CAP PO DAILY September 06, 2022 12:00am Start: 09-06-2022 take 1 capsule by [facility] once daily Izclbxujhbs-Zlmxomiix-Qmc C-Mn (Glucosamine Chondroitin Maxstr) 500-400 mg Capsule Active 1 CAP PO DAILY September 06, 2022 1:00am Start: 09-06-2022 take 1 capsule by [facility] once daily Zavsypilvmu-Uyfzlmccl-Dik C-Mn (Glucosamine Chondroitin Maxstr) 500-400 mg Capsule Active CAP PO DAILY September 06, 2022 12:00am lidocaine 0.05 mg/mg medicated patch (2 sources) Antiarrhythmic, Amide Local Anesthetic Start: 07-23-2024 End: 08-02-2024 apply 1 dose transdermal route every twenty-four hours lidocaine (LIDODERM) 5 % Indications: Chronic right shoulder pain Apply 1 Patch as directed every 24 hours for 10 days. Remove old patch prior to placing new patch. Location: Right Knee 10 Patch 07/23/2024 08/02/2024 Active losartan potassium 25 mg oral tablet (20 sources) Angiotensin 2 Receptor Palma Start: 09-15-2024 take 1 tablet by mouth once daily losartan (COZAAR) 25 mg tablet Indications: Primary hypertension Take 1 tablet by mouth once daily. 90 tablet 1 09/15/2024 Active Start: 02-28-2021 End: 09-15-2024 take 1 tablet by mouth once daily Losartan 50 mg Tablet Discontinued 50 mg PO DAILY September 06, 2022 1:00am January 01, 2024 10:08am BP Comment on above: Take 1 tablet by delicia th once daily. magnesium oxide 500 mg oral capsule (20 sources) Start: 3 take 1 capsule by mouth once daily Magnesium Oxide 500 mg capsule Active 500 mg PO DAILY September 10, 2022 1:00am SUPPLEMENT 24 hr metFORMIN hydrochloride 750 mg extended release oral tablet (20 sources) Biguanide Start: 2 End: 5 take 1 tablet by mouth twice daily Metformin 750 mg Tablet Extended Release 24 Hr Active 750 mg PO TWICE A DAY September 06, 2022 1:00am DIABETES Start: 05-31-2021 End: 10-31-2021 metFORMIN 750 mg oral tablet EXTENDED RELEASE Dose : 750 mg = 1 tab(s), Oral, 0 Refill(s) Start Date: 08/18/21 Status: Ordered Comment on above: Take 1 tablet by delicia th twice daily with meals. Take 1 tablet by delicia th two times a day with meals. mupirocin 0.02 mg/mg topical ointment (20 sources) RNA Synthetase Inhibitor Antibacterial Start: 11-26-2023 mupirocin (BACTROBAN) 2 % ointment Indications: Abrasion, leg w/o infection Apply to affected area every 12 hours as needed (skin wound or infection). 30 g 1 11/26/2023 Active Bapchule-3 350 mg oral capsule (3 sources) Start: 08-18-2021 Bapchule-3 350 mg oral capsule Dose : 350 mg = 1 cap(s), Oral, qDay, 0 Refill(s) Start Date: 08/18/21 Status: Ordered potassium gluconate 2.5 meq oral tablet (1 source) Start: 01-13-2025 take 1 tablet by mouth once daily Potassium Gluconate 595 mg (99 mg) tablet Active 595 mg PO DAILY January 13, 2025 12:00am POTASSIUM-99 ORAL (20 sources) take 1 tablet by mouth once daily POTASSIUM-99 ORAL Take 1 tablet by mouth once daily. Active take 1 tablet by mouth once suzan y POTASSIUM-99 ORAL Take 1 tablet by mouth once daily. 0 Active Comment on above: Take 1 tablet by delicia th once daily. predniSONE 10 mg oral tablet (3 sources) Start: 03-03-20 End: 03-10-20 take 3 tablets by mouth once daily predniSONE (DELTASONE) 10 mg tablet Indications: Rash , Vasculitis limited to skin Take 3 tablets by mouth once daily for 7 days. 21 tablet 03/03/2024 03/10/2024 Active 24 hr propranolol hydrochloride 60 mg extended release oral capsule (3 sources) beta-Adrenergic [place] Start: 09-16-19 take 1 capsule by mouth once daily propranolol ER (INDERAL LA) 60 mg 24 hr capsule Indications: Tremor Take 1 capsule by mouth once daily. For tremor 90 capsule 1 09/15/2024 Active triamcinolone acetonide 5 mg/ml topical cream (5 sources) Corticosteroid Start: 03-03-20 End: 03-13-20 24 triamcinolone acetonide (KENALOG) 0.5 % cream Indications: Rash , Vasculitis limited to skin Apply 1 application to affected area two times a day for 10 days. On legs, For rash/itching. Apply sparingly. Avoid face/skin fold. 60 g 1 03/03/2024 03/13/2024 Active warfarin sodium 4 mg oral tablet (20 sources) Vitamin K Antagonist Start: 08-27-19 End: 01-14-20 25 take 1 tablet by mouth once daily Warfarin 4 mg tablet Active 4 mg PO DAILY January 13, 2025 12:00am Please contact the information source for Protocol details. Start: 07-16-2023 End: 01-13-2025 Warfarin 2 mg tablet Discont inued 2 mg PO DAILY 30 June 29, 2024 12:40pm January 13, 2025 2:08pm Take two 2mg (4mg) on Awgf-Tbp-Hivce-Sat and one pill (2mg) on Sat/Sat/Saturday Please contact the information source for Protocol details. Comment on above: Take 4 mg by mouth d aily as directed. 4 mg Sat, Sat, Sat, 8 mg all other days Completed/Discontinued Medications Medication Drug Class(es) Dates Sig (Normalized) Sig (Original) amoxicillin 875 mg / clavulanate 125 mg oral tablet (20 sources) Penicillin-class Antibacterial Start: 12-17-2022 End: 01-24-2023 Amoxicillin-Pot Clavulanate 875-125 mg tablet Discontinued 1 {tbl} PO TWICE A DAY 14 7 0 December 17, 2022 12:00am January 24, 2023 3:08pm Start: 12-17-2022 End: 01-24-2023 take 1 tablet by mouth twice daily Amoxicillin-Pot Clavulanate Discontinued 1 TABLET PO TWICE A DAY 14 7 December 17, 2022 12:00am January 24, 2023 3:08pm aspirin 81 mg oral tablet (20 sources) Platelet Aggregation Inhibitor, Nonsteroidal Anti-inflammatory Drug Start: 01-03-2022 End: 04-03-2022 take 1 tablet by mouth once daily aspirin 81 mg chewable tablet Take 1 tablet by mouth once daily. 30 tablet 5 01/03/2022 Active Start: 11-21-2006 End: 07-16-2023 take 1 tablet by mouth once daily Aspirin 81 mg Tablet Discontinued 81 mg PO DAILY September 06, 2022 1:00am July 16, 2023 3:57pm BLOOD THINNER Comment on above: Take one(1) tablet d aily. Take 1 tablet by delicia once daily. atorvastatin 40 mg oral tablet (20 sources) HMG-CoA Reductase Inhibitor Start : 09-06 End: 10-11 take 1 tablet by mouth once daily Atorvastatin 40 mg tablet Discontinued 40 mg PO DAILY September 13, 2022 3:54pm October 11, 2022 1:19pm CHOLESTEROL cephalexin 500 mg oral capsule (20 sources) Cephalosporin Antibacterial Start : 01-05 End: 01-24 take 1 capsule by mouth every six hours Cephalexin 500 mg capsule Discontinued 500 mg PO EVERY 6 HOURS 28 0 January 05, 2023 12:00am January 24, 2023 3:08pm ciprofloxacin 500 mg oral tablet (18 sources) Quinolone Antimicrobial Start : 01-25 End: 02-07 take 1 tablet by mouth twice daily Ciprofloxacin Hcl 500 mg Tablet Discontinued 500 mg PO TWICE A DAY 14 0 January 25, 2023 12:00am February 07, 2023 10:00am clopidogrel 75 mg oral tablet (20 sources) [id number] Platelet Inhibitor Start : 09-06 End: 07-16 take 1 tablet by mouth once daily Clopidogrel 75 mg tablet Discontinued 75 mg PO DAILY September 13, 2022 3:54pm October 11, 2022 1:18pm BLOOD THINNER Comment on above: Take 75 mg by mouth once daily. flaxseed oil (OMEGA 3 ORAL) (1 source) End: 10-31 take 1 capsule by mouth once daily flaxseed oil (OMEGA 3 ORAL) Take 1 capsule by mouth once daily. 0 10/31/2021 Discontinued (Discontinued by Patient) Comment on above: Take 1 capsule by [facility] once daily. Hsrdbmlvyae-Kyffoeutu-Mgl C-Mn (GLUCOSAMINE CHONDROITIN MAXSTR) 500-400 mg ORAL Cap (1 source) Start : 04-14 take 1 tablet by mouth once daily Lzpvggkzgnh-Helocwqfe-Yu t C-Mn (GLUCOSAMINE CHONDROITIN MAXSTR) 500-400 mg ORAL Cap Take one(1) tablet daily. 0 04/14/2007 Active Comment on above: Take one(1) tablet d aily. hydroCHLOROthiazide 12.5 mg oral capsule (20 sources) Thiazide Diuretic Start : 05-10 End: 02-13 take 1 capsule by mouth once daily Hydrochlorothiazide 12.5 mg Capsule Discontinued 12.5 mg PO DAILY September 06, 2022 1:00am January 25, 2023 12:42pm BP Start: 05-31-2021 End: 10-31-2021 take 1 capsule by mouth once daily hydroCHLOROthiazide (HYDRODIURIL, ESIDRIX) 12.5 mg capsule Take 1 capsule by mouth once daily. 90 capsule 1 10/31/2021 Active Comment on above: Take 1 capsule by [facility] once daily. ketoconazole 20 mg/ml medicated shampoo (20 sources) Azole Antifungal Start: 09-06-2022 End: 01-24-2023 Ketoconazole 2 % Shampoo Discontinued 1 NMA TOPICAL Q14D September 06, 2022 1:00am January 24, 2023 3:09pm Check with primary doctor Start: 07-23-2018 ketoconazole ( NIZORAL) 2 % shampoo Indications: Seborrheic dermatitis Apply 1 application to affected area once daily as needed for Itching/Rash (scalp itching). 200 mL 3 07/23/2018 Active Comment on above: Apply 1 application to affected area once daily as needed for Itching/Rash (scalp itching). lamoTRIgine 25 mg oral tablet (20 sources) Mood Stabilizer, Anti-epileptic Agent Start: take 25 mg by mouth every other day Lamotrigine Active 25 MG PO EVERY OTHER DAY September 06, 2022 12:00am Start: 01-30-2021 End: 12-22-2024 take 1 tablet by mouth once daily Lamotrigine 25 mg Tablet Discontinued 25 mg PO DAILY September 06, 2022 1:00am January 15, 2024 11:05am PT UNSURE Comment on above: Take 1 tablet by [facility] once daily. Magnesium (20 sources) Start: 09-06-2022 End: 09-10-2022 Magnesium 500 mg Tablet Discontinued 15 mg PO DAILY September 06, 2022 1:00am September 10, 2022 12:26pm Start: 09-06-2022 End: 09-10-2022 take 15 mg by mouth once daily Magnesium Discontinued 15 MG PO DAILY September 06, 2022 12:00am September 10, 2022 11:26am Start: 09-06-2022 End: 09-10-2022 take 15 mg by mouth once daily Magnesium Discontinued 15 MG PO DAILY September 06, 2022 1:00am September 10, 2022 12:26pm Start: 09-06-2022 take 15 mg by mouth once daily Magnesium Active 15 MG PO DAILY September 06, 2022 12:00am Magnesium 200 mg tab Take 500 mg by mouth once daily. Active Magnesium 200 mg tab Take 500 mg by mouth once daily. 0 Active Comment on above: Take 500 mg by mouth once daily. meloxicam 7.5 mg oral tablet (20 sources) Nonsteroidal Anti-inflammatory Drug Start: 2 End: 5 take 1 tablet by mouth once daily Meloxicam 7.5 mg Tablet Discontinued 7.5 mg PO DAILY September 06, 2022 1:00am September 06, 2022 5:04pm Start: 05-31-2021 End: 10-31-2021 take 1 tablet by mouth once daily as needed for pain meloxicam (MOBIC) 7.5 mg tablet TAKE 1 TABLET BY MOUTH ONCE DAILY. NEEDED FOR FOOT PAIN, WITH FOOD. 90 tablet 1 10/31/2021 Active Comment on above: TAKE 1 TABLET BY DELICIA ONCE DAILY. NEEDED FOR FOOT PAIN, WITH FOOD. metoprolol tartrate 25 mg oral tablet (18 sources) beta-Adrenergic Palma Start: 01-26-20 End: 07-10-19 take 1 tablet by mouth twice daily Metoprolol Tartrate 25 mg Tablet Discontinued 25 mg PO TWICE A DAY 60 January 25, 2023 12:00am July 10, 2023 2:35pm metroNIDAZOLE 500 mg oral tablet (20 sources) Nitroimidazole Antimicrobial Start: 01-26-20 End: 01-15-20 take 1 tablet by mouth three times daily Metronidazole 500 mg Tablet Discontinued 500 mg PO THREE TIMES A DAY 21 January 25, 2023 12:00am January 15, 2024 11:04am Start: 09-06-2022 End: 01-24-2023 Metronidazole 0.75 % Cream D iscontinued 1 NMA TOPICAL TWICE A DAY September 06, 2022 1:00am January 24, 2023 3:09pm PSORIASIS Start: 08-18-2021 metroNIDAZOLE 0.75% topical cream Topical, BID, 0 Refill(s) Start Date: 08/18/21 Status: Ordered Start: 02-19-2017 metroNIDAZOLE 0.75 % cream Indications: Rosacea APPLY TO AFFECTED AREAS OF ROSACEA ON FACE QD -BID TOLERATED AND DIRECTED 1 Tube 02/19/2017 Active Comment on above: APPLY TO AFFECTED AR EAS OF ROSACEA ON FACE QD -BID TOLERATED AND DIRECTED ondansetron 4 mg disintegrating oral tablet (20 sources) Serotonin-3 Receptor Antagonist Start: 3 End: 3 take 1 tablet by mouth every eight hours as needed for nausea Ondansetron 4 mg tablet,disintegratin g Discontinued 4 mg PO EVERY 8 HOURS NEEDED as needed for Nausea 10 0 January 05, 2023 12:00am January 24, 2023 3:09pm potassium 99 mg extended release oral tablet (20 sources) Start: 3 End: 4 take 1 tablet by mouth once daily Potassium 99 mg Tablet Discontinued 99 mg PO DAILY September 06, 2022 1:00am January 15, 2024 11:05am SUPPLEMENT Start: 09-06-2022 Potassium Acti ve MG September 06, 2022 12:00am simvastatin 20 mg oral tablet (20 sources) HMG-CoA Reductase Inhibitor Start: 05-10-2022 End: 06-15-2024 take 1 tablet by mouth once daily Simvastatin 20 mg tablet Discontinued 20 mg PO DAILY September 06, 2022 1:00am September 10, 2022 12:25pm Start: 05-31-2021 End: 10-31-2021 take 1 tablet by mouth once daily simvastatin (ZOCOR) 20 mg tablet Indications: Mixed hyperlipidemia Take 1 tablet by mouth once daily. 90 tablet 1 10/31/2021 Active Comment on above: Take 1 tablet by [facility] once daily. tamsulosin hydrochloride 0.4 mg oral capsule (20 sources) alpha-Adrenergic Palma Start: 3 End: 4 take 1 capsule by mouth once daily Tamsulosin 0.4 mg Capsule Discontinued 0.4 mg PO DAILY@1730 30 30 0 September 20, 2022 12:00am July 10, 2023 2:35pm vitamin b12 1 mg oral tablet (20 sources) Vitamin B12 Start: 2 End: 5 take 1 tablet by mouth once daily Cyanocobalamin (Vitamin B-12) (Vitamin B-12) 1,000 mcg Tablet Discontinued 1000 ug PO DAILY September 06, 2022 1:00am January 13, 2025 2:13pm SUPPLEMENT Comment on above: Take 1,000 mcg by mo [facility] once daily. 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; Translations: [Cerebral infarction due to unspecified occlusion or stenosis of right carotid arteries] Onset: 10-10-2022 Chronic Cardiac dysrhythmias (20 sources) Atrial fibrillation with rapid ventricular response; Translations: [Unspecified atrial fibrillation] Onset: 02-13-2023 01-24-2023 Chronic Coagulation and hemorrhagic disorders (20 sources) Thrombocytopenic disorder; Translations: [Thrombocytopenia, unspecified] Onset: 11-19-2018 Resolved: 11-13-2019 Chronic Diabetes mellitus with complications (20 sources) Type 2 diabetes mellitus; Translations: [Type 2 diabetes mellitus with diabetic polyneuropathy] Onset: 11-25-2006 Resolved: 11-13-2019 Chronic Diabetes mellitus without complication (20 sources) Diabetes mellitus; Translations: [Non-insulin dependent diabetes mellitus] Onset: 03-08-2024 12-25-2022 Chronic Diabetes mellitus without complication (20 sources) Hyperglycemia 12-25-2022 Episodic Diseases of mouth; excluding dental (20 sources) Parotitis; Translations: [Acute sialoadenitis] 12-25-2022 Episodic Disorders of lipid metabolism (20 sources) Mixed hyperlipidemia; Translations: [Mixed hyperlipidemia] Onset: 11-21-2006 Chronic Diverticulosis and diverticulitis (20 sources) Diverticulitis of intestine; Translations: [Diverticulitis of intestine, part unspecified, without perforation or abscess without bleeding] Onset: 02-13-2023 02-13-2023 Chronic Essential hypertension (20 sources) Essential hypertension; Translations: [Essential (primary) hypertension] Onset: 04-25-2010 Chronic Comment on above: CONTROLLED ON MED Hyperplasia of prostate (20 sources) Benign prostatic hyperplasia; Translations: [Benign prostatic hyperplasia with lower urinary tract symptoms] Onset: 11-14-2022 Chronic Late effects of cerebrovascular disease (2 sources) Sequela of cerebrovascular accident; Translations: [Unspecified sequelae of cerebral infarction] Onset: 12-23-2024 12-23-2024 Chronic Lymphadenitis (1 source) Localized enlarged lymph nodes; Translations: [Localized enlarged lymph nodes] Onset: 12-18-2024 Episodic Malaise and fatigue (20 sources) Asthenia; Translations: [Weakness] 01-24-2023 Episodic Miscellaneous mental health disorders (20 sources) Psychosexual dysfunction; Translations: [Unspecified sexual dysfunction not due to a substance or known physiological condition] Onset: 12-16-2006 12-16-2006 Chronic Nausea and vomiting (20 sources) Vomiting; Translations: [Vomiting, unspecified] 01-05-2023 Episodic Nutritional deficiencies (20 sources) Vitamin D deficiency; Translations: [Vitamin D deficiency, unspecified] Onset: 11-14-2022 Chronic Occlusion or stenosis of precerebral arteries (20 sources) Bilateral stenosis of carotid arteries; Translations: [Occlusion and stenosis of bilateral carotid arteries] Onset: 09-23-2024 Chronic Comment on above: Status post right ca rotid endarterectomy Osteoarthritis (20 sources) Osteoarthritis of left knee joint; Translations: [Unilateral primary osteoarthritis, left knee] Onset: 08-02-2021 Chronic Other aftercare (17 sources) Long-term current use of anticoagulant; Translations: [jail (current) use of anticoagulants] 07-23-2023 Episodic Other aftercare (2 sources) 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; Translations: [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] Onset: 01-05-2025 Episodic Other circulatory disease (18 sources) Disorder of carotid artery; Translations: [Disorder of arteries and arterioles, unspecified] 10-06-2024 Chronic Other circulatory disease (1 source) H/O: atrial fibrillation; Translations: [Personal history of other diseases of the circulatory system] 01-24-2023 Episodic Other circulatory disease (1 source) Personal history of other diseases of the circulatory system; Translations: [Atrial fibrillation] 01-24-2023 Episodic Other connective tissue disease (1 source) Cramp in calf; Translations: [Cramp and spasm] Episodic Other connective tissue disease (1 source) Pain in right hand; Translations: [Pain in right hand] 07-23-2024 Episodic Other diseases of kidney and ureters (1 source) Disorder of kidney and ureter, unspecified; Translations: [Unspecified disorder of kidney and ureter] 01-24-2023 Episodic Other ear and sense organ disorders (1 source) Impacted cerumen in left ear; Translations: [Impacted cerumen, left ear] 09-02-2024 Episodic Other inflammatory condition of skin (20 sources) Psoriasis; Translations: [Other psoriasis] Onset: 04-23-2008 08-31-2008 Chronic Other inflammatory condition of skin (20 sources) Rosacea; Translations: [Rosacea, unspecified] Onset: 12-20-2008 12-20-2008 Chronic Other inflammatory condition of skin (2 sources) Vasculitis of the skin; Translations: [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, unspecified] 03-03-2024 Episodic Other injuries and conditions due to external causes (1 source) Open wound of skin; Translations: [Other injury of unspecified body region, initial encounter] 03-11-2024 Episodic Other liver diseases (20 sources) Steatosis of liver; Translations: [Fatty (change of) liver, not elsewhere classified] Onset: 07-22-2016 07-22-2016 Chronic Other nervous system disorders (12 sources) Polyneuropathy; Translations: [Other specified polyneuropathies] Chronic Other nervous system disorders (20 sources) Peripheral nerve disease ; Translations: [Polyneuropathy, unspecified] Onset: 05-20-2018 05-20-2018 Chronic Other nervous system disorders (1 source) Other specified polyneuropathies; Translations: [Other polyneuropathy] Onset: 05-20-2018 Chronic Other non-traumatic joint disorders (1 source) Chronic pain of right upper limb; Translations: [Pain in right shoulder] 07-23-2024 Episodic Other non-traumatic joint disorders (2 sources) Pain in elbow; Translations: [Pain in right elbow] 07-23-2024 Episodic Other nutritional; endocrine; and metabolic disorders (20 sources) Obese class I; Translations: [Obesity, unspecified] Onset: 02-18-2017 02-18-2017 Chronic Other nutritional; endocrine; and metabolic disorders (20 sources) Hypercalcemia; Translations: [Hypercalcemia] Onset: 11-14-2022 Chronic Other nutritional; endocrine; and metabolic disorders (2 sources) Overweight in adulthood with body mass index of 25 or more but less than 30; Translations: [Overweight] Onset: 12-23-2024 12-23-2024 Episodic Other skin disorders (20 sources) Mass of neck; Translations: [Localized swelling, mass and lump, neck] Onset: 08-08-2022 Episodic Comment on above: Patient is a 79-year -old male who makes surgical consultation related to incidental finding of multiple (at least 3) neck masses of the left neck. Patient has a history of prior right-sided carotid endarterectomy September 2022. Imaging obtained perioperatively does not show the masses at that time. They are nontender on exam. By history Mr. Tapia denies any B symptoms. With their distribution and location they would seem to represent abnormal lymph nodes of the left jugular chain. I had him undergo a battery of testing to assess for feasibility of biopsy given the anatomy surrounding these masses. Pathology has confirmed that he would require at least an incisional biopsy to make a diagnosis and that FNA alone would be insufficient. Therefore, I have deemed patient's largest mass just lateral to his left thyroid lobe as being the lowest risk to approach for biopsy. I discussed biopsy approach with patient and his son. Will plan to involve vascular surgery as well to assist with the procedure. Other skin disorders (2 sources) Eruption; Translations: [Rash and other nonspecific skin eruption] 03-03-2024 Episodic Peripheral and visceral atherosclerosis (20 sources) Peripheral vascular disease, unspecified; Translations: [Peripheral vascular disease, unspecified] Onset: 11-14-2022 Chronic Comment on above: LEAS 6/7 24: R BRANDT 0 .79, biphasic waveforms throughoutL BRANDT 1.03, triphasic waveforms throughout LEAS 6/7/24: R BRANDT 0 .79, biphasic waveforms throughoutL BRANDT 1.03, triphasic waveforms throughout Residual codes; unclassified (20 sources) Acute confusion; Translations: [Disorientation, unspecified] 01-05-2023 Episodic Retinal detachments; defects; vascular occlusion; and retinopathy (20 sources) Occlusion of right central retinal artery; Translations: [Central retinal artery occlusion, right eye] 09-06-2022 Chronic Spondylosis; intervertebral disc disorders; other back problems (1 source) Degeneration of cervical intervertebral disc; Translations: [Other cervical disc degeneration, unspecified cervical region] 07-23-2024 Chronic Superficial injury; contusion (1 source) Abrasion and/or friction burn of lower limb without infection; Translations: [Abrasion, unspecified lower leg, initial encounter] 11-26-2023 Episodic Thyroid disorders (20 sources) Thyroid nodule; Translations: [Nontoxic single thyroid nodule] Onset: 10-15-2024 Chronic Unclassified (11 sources) E04.1 - Nontoxic single thyroid nodule Unclassified (1 source) Obesity, Class I, BMI 30-34.9; Translations: [Obesity, Class I, BMI 30-34.9] Onset: 02-18-2017 Urinary tract infections (20 sources) Acute urinary tract infection; Translations: [Urinary tract infection, site not specified] Onset: 02-13-2023 01-05-2023 Episodic Past or Other Problems Problem Classification Problem Date Documented Date Episodic/Chronic Abdominal hernia (20 sources) Umbilical hernia; Translations: [Umbilical hernia without obstruction or gangrene] Onset: 04-07-2009 Resolved: 07-12-2016 07-12-2016 Episodic Coagulation and hemorrhagic disorders (20 sources) Thrombocytopenia due to hypersplenism; Translations: [Other secondary thrombocytopenia] Onset: 11-25-2006 07-22-2016 Episodic Deficiency and other anemia (20 sources) Pancytopenia; Translations: [Pancytopenia] Onset: 11-28-2007 Resolved: 07-12-2016 07-12-2016 Chronic E Codes: Fall (2 sources) Fall; Translations: [Unspecified fall, subsequent encounter] Onset: 07-29-2024 07-29-2024 Episodic Hemorrhoids (20 sources) Internal hemorrhoids; Translations: [Other hemorrhoids] Onset: 01-30-2008 Resolved: 07-12-2016 07-12-2016 Episodic Other aftercare (1 source) Encounter for surgical aftercare following surgery on the circulatory system; Translations: [Encounter for surgical aftercare following surgery on the circulatory system] Onset: 10-06-2024 Episodic Other and unspecified benign neoplasm (20 sources) Benign neoplasm of colon; Translations: [Benign neoplasm of colon, unspecified] Onset: 01-30-2008 Resolved: 07-12-2016 07-12-2016 Episodic Other circulatory disease (20 sources) Abnormal foot pulse; Translations: [Other specified symptoms and signs involving the circulatory and respiratory systems] Onset: 08-08-2022 Episodic Other connective tissue disease (20 sources) Cramp; Translations: [Cramp and spasm] Onset: 08-08-2022 Episodic Other diseases of kidney and ureters (20 sources) Acute renal insufficiency; Translations: [Disorder of kidney and ureter, unspecified] Onset: 02-13-2023 01-24-2023 Episodic Other hematologic conditions (20 sources) Hypersplenism; Translations: [Hypersplenism] Onset: 07-22-2016 07-22-2016 Episodic Other inflammatory condition of skin (20 sources) Seborrheic dermatitis; Translations: [Seborrheic dermatitis, unspecified] Onset: 02-18-2017 08-24-2020 Episodic Other inflammatory condition of skin (1 source) 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, unspecified; Translations: [Vasculitis limited to skin] Onset: 03-03-2024 Episodic Other nervous system disorders (20 sources) Disorder of the peripheral nervous system; Translations: [Hereditary and idiopathic neuropathy, unspecified] Onset: 11-21-2006 Resolved: 04-14-2015 04-14-2015 Chronic Other nervous system disorders (20 sources) Abnormal gait; Translations: [Unspecified abnormalities of gait and mobility] Onset: 02-13-2023 02-13-2023 Episodic Other nervous system disorders (4 sources) Tremor; Translations: [Tremor, unspecified] Onset: 09-15-2024 09-15-2024 Episodic Other non-epithelial cancer of skin (20 sources) History of malignant neoplasm of skin; Translations: [Personal history of other malignant neoplasm of skin] Onset: 04-23-2008 Resolved: 07-12-2016 07-12-2016 Episodic Other non-traumatic joint disorders (19 sources) Shoulder pain; Translations: [Pain in left shoulder] Onset: 07-12-2016 07-12-2016 Episodic Other non-traumatic joint disorders (20 sources) Pain in left knee; Translations: [Pain in joint, lower leg] Onset: 08-02-2021 08-02-2021 Episodic Other non-traumatic joint disorders (20 sources) Pain in left shoulder; Translations: [Pain in joint, shoulder region] Onset: 07-12-2016 07-12-2016 Episodic Other non-traumatic joint disorders (6 sources) Pain in right shoulder; Translations: [Pain in joint, shoulder region] Onset: 07-29-2024 07-29-2024 Episodic Other non-traumatic joint disorders (1 source) Pain in right elbow; Translations: [Right elbow pain] Onset: 07-29-2024 Episodic Other nutritional; endocrine; and metabolic disorders (20 sources) Obesity; Translations: [Obesity, unspecified] Onset: 11-21-2006 Resolved: 11-13-2019 11-13-2019 Chronic Other screening for suspected conditions (not mental disorders or infectious disease) (20 sources) Patient encounter status; Translations: [Encounter for screening for malignant neoplasm of prostate] Onset: 02-18-2017 02-18-2017 Episodic Other skin disorders (20 sources) Seborrheic keratosis; Translations: [Other seborrheic keratosis] Onset: 12-20-2008 07-12-2016 Episodic Other skin disorders (20 sources) Actinic keratosis; Translations: [Actinic keratosis] Onset: 11-22-2020 11-22-2020 Episodic Other skin disorders (1 source) Rash and other nonspecific skin eruption; Translations: [Rash] Onset: 03-03-2024 Episodic Residual codes; unclassified (20 sources) Intolerant of cold; Translations: [Other general symptoms and signs] Onset: 08-08-2022 Episodic Residual codes; unclassified (1 source) Other specified postprocedural states; Translations: [Other specified postprocedural states] Onset: 10-06-2024 Episodic Spondylosis; intervertebral disc disorders; other back problems (3 sources) Cervical radiculopathy; Translations: [Radiculopathy, cervical region] Onset: 07-29-2024 07-23-2024 Episodic Results Test Name Value Interpretation Reference Range Facility Bedside Glucoseon 01-27-2025 [facility] GLU 158 mg/dL High 74-106 [facility] Comment on above: Result Comment: LINDA GUTIÉRREZ OF PATIENT CARE PER NURSING PROTOCOL Performed By: #### L 501.080 #### [facility] [address] [place], [address] Discharge Instructionon 01-06 Discharge Instruction [facility] Medical Records Department [address] [place] [address] Instructions for Home/Discharge Instructions 01/27/25 1623 MR#: [id number] Acct: [id number] Name: LARA TAPIA Rep #: [id number] : 1945 79 From: Juan Campbell MD PCP: Dr. Harlan Ford, DO Status:[facility] Discharge Instructions Diet Discharge Diet: No restrictions (However recommend a liquid to soft diet initially postoperatively) Activity Discharge Activity: May Not Drive (While it remains difficult to check blind spots quickly) May shower in (days): 2 Ice area for (Minutes): 20 Lifting Restrictions: No lifting greater than 15 pounds for 2 weeks after surgery Dressing / Incision Call your doctor if your incision/area has: Continuous Slow Oozing, Sudden Increased Bleeding, Increased Pain/ Swelling, Increased Redness and Swelling at the incision site Remove Dressing in: 2 days (Please leave Steri-Strips intact until they fall off spontaneously or are taken off at your follow-up visit) Cleanse incision/area with: Soap Water Follow Up Care Please Follow Up With: Juan Campebll MD When: 10-14 days postop Test Results: Test results from this visit will be discussed in further detail at your follow-up appointment, if applicable. Discharge Plan Admission Primary Reason for Your Visit: Neck mass biopsy Attending Provider: Juan Campbell Primary Care Provider: Harlan Ford Instructions Additional Instructions / Restrictions: Please resume warfarin in 48 hours post procedure Print Language: Urdu Discharge Orders/Prescriptions Prescriptions: Continued magnesium oxide 500 mg capsule 500 mg PO DAILY simvastatin 20 mg tablet 20 mg PO DAILY clobetasol [Temovate] 0.05 % ointment 1 applic topical DAILY losartan 50 mg tablet 50 mg PO QDAY gabapentin 300 mg Capsule 900 mg PO TID glimepiride 4 mg Tablet 4 mg PO BID [id number] C-Mn [Glucosamine Chondroitin MaxStr] 500-400 mg Capsule 1 cap PO DAILY metformin 750 mg Tablet Extended Release 24 Hr 750 mg PO BID lamotrigine 25 mg tablet 25 mg PO DAILY meloxicam 7.5 mg tablet 7.5 mg PO PRN PRN (Reason: FOOT PAIN) Patient Comments: TAKE 1 TABLET BY MOUTH ONCE DAILY. NEEDED FOR FOOT PAIN, WITH FOOD. cholecalciferol (vitamin D3) [Vitamin D3] 25 mcg (1,000 unit) Capsule 25 mcg PO DAILY potassium gluconate 595 mg (99 mg) tablet 595 mg PO DAILY warfarin 4 mg tablet 4 mg PO DAILY Protocol: Dose Management Condition: Saturday Dose/Route: 4 mg Instruction: 1 x 4 mg tablet Condition: Saturday Dose/Route: 4 mg Instruction: 1 x 4 mg tablet Condition: Saturday Dose/Route: 4 mg Instruction: 1 x 4 mg tablet Condition: Saturday Dose/Route: 4 mg Instruction: 1 x 4 mg tablet Condition: Dose/Route: 4 mg Instruction: 1 x 4 mg tablet Condition: Saturday Dose/Route: 4 mg Instruction: 1 x 4 mg tablet Condition: Saturday Dose/Route: 4 mg Instruction: 1 x 4 mg tablet Protocol Text: Adjustment Start Date: Saturday01/19/25 INR Value: 2.6 INR Date: 01/19/25 Recheck Date: 02/09/25 Referrals / Follow Up: Harlan Ford DO [Primary Care Provider] - Disposition Disposition (needs filled in before D/C Order can be placed): Home, Self Care 01/28/25 1501 Juan Campbell MD CC: Dr. Harlan Ford DO Signed [facility] MR/POSTOP.[facility] 01-27-2025 MR/POSTOP.[facility] Medical Records Department [address] [place] [address] Anesthesia Postop Eval I 01/27/25 1506 MR#: [id number] Acct: [id number] Name: LARA TAPIA Rep #: [id number] : 1945 79 From: Juan Holliday CRNA PCP: Dr. Harlan Ford DO Status:REG SDC Y Race: C Location: [place] [address] Anesthesia: Postop Eval I Current Vital Signs Temperature: 98.3 F Pulse Rate: 79 Blood Pressure: 147/61 Respiratory Rate: 20 Pulse Ox: 93 Oxygen Delivery Method: Room Air Assessment Airway patent: Yes Spontaneous unlabored respirations: Yes Mental status: Awake and Calm nausea: No Vomiting: No Anesthesia Complication: No Fluid Hydration Crystalloid volume administer (ml): 1,400 Total IV fluid infused: 1,400 Progress Note Anesthesia document: Postop Eval 1 completed: Yes 01/27/25 1506 Date Juan Holliday CRNA Cosigner Signature: Date CC: Signed [facility] MR/RHLUEHLL1rr 01-27-2025 [facility] Medical Records Department [address] [place] [address] Anesthesia Postop Eval II 01/27/251910 MR#: [id number] Acct: [id number] Name: LARA TAPIA Rep #: [id number] : 1945 79 From: Jaquelin Frazier CRNA PCP: Dr. Harlan Ford, DO [place] [facility] [place] C [place] [facility] [place]esthesia Postop Eval I Sum Postop Eval Completion status Anesthesia document: Postop Eval 1 completed: Yes Anesthesia Postop Eval I Summary Anesthesia Postop Eval I Summary: Anesthesia Postop Eval I: Assessment Summary Airway patent Yes 01/27/25 15:06 [email or web address] Spontaneous unlabored Yes 01/27/25 15:06 [email or web address] respirations Mental status Awake,Calm 01/27/25 15:06 [email or web address] nausea No 01/27/25 15:06 [email or web address] Vomiting No 01/27/25 15:06 [email or web address] Anesthesia Postop Eval I: Fluid Summary Crystalloid volume administer 1,400 01/27/25 15:06 [email or web address] (ml) Colloids volume administered ( ml) Blood Product volume administered (ml) Total IV fluid infused 1,400 01/27/25 15:06 [email or web address] Anesthesia Postop Eval I: Summary Notes Anesthesia Complication No 01/27/25 15:06 [email or web address] Anesthesia Complication Comment: Post-operative progress note Anesthesia: Postop Eval II Evaluation Mental status: Awake Pain Level: 2 nausea: No Vomiting: No 01/27/251910 Date Jaquelin Deleonigner Signature: Date CC: Signed Normal [facility] Operative Reporton Operative Report [facility] Medical Records Department [address] [place] [address] Operative Report 01/27/25 1455 MR#: [id number] Acct: [id number] Name: LARA TAPIA Rep #: [id number] : 1945 79 From: Juan Campbell MD PCP: Dr. Harlan Ford, DO Status:[facility] [place] [facility] [place]ative Report (Standard) Operative Information Date of Procedure: 01/27/25 Pre-Operative Diagnosis: Left neck mass Post-Operative Diagnosis: Left neck adenopathy Surgery/Procedure Performed: Excisional biopsy of left neck mass coconut cooker: Yes Coin Machine Operator: Sony López Tasks completed by educational assistant: Opening, Dissecting tissue, Hemostasis: Electrocautery and Retracting Additional higher level teaching assistant?: Yes Additional Electroplating Worker #2: Lea Viera Tasks completed by higher level teaching assistant #2: Closing Type of Anesthesia: General/Supplemental RN Documented Start/Stop Times: Operation Date: 01/27/25 13:00 Case Time Into Pre-Op 01/27/25 11:16 Out of Pre-Op 01/27/25 12:59 Anesthesia Start 01/27/25 13:02 Into Room 01/27/25 13:02 Procedure Start 01/27/25 13:28 Procedure End 01/27/25 14:54 Anesthesia End 01/27/25 14:59 Out of Room 01/27/25 14:59 Into Recovery 01/27/25 15:02 Into Phase II Recovery 01/27/25 16:16 Out of Recovery 01/27/25 16:16 Out of Phase II 01/27/25 17:34 Procedure Start Time: 13:28 Procedure Stop Time: 14:54 Select all DRAINS/GRAFTS/IMPLANTS that apply: None Estimated Blood Loss: 5 Specimen collected: Yes Description of specimen(s) removed: 1. Left cervical mass 2. Left cervical lymph node level 3 3. Left neck mass Description of surgery: After appropriate identification in the preoperative holding area the patient was brought to the operating room where he was positioned supine and administered prophylactic antibiotics by anesthesia. General anesthesia was induced and he was endotracheally intubated. He was then positioned with his head turned to the right to expose his left anterior neck. A bedside ultrasound was used to localize the position of the patient's hypoechoic neck masses and the surface of the neck was marked to indicate this position for use and incision planning. This area was prepped and draped in usual sterile fashion. Formal timeout followed to confirm patient procedure. Incision was marked out for an oblique extent of approximately 6 cm overlying the anterior border of the sternocleidomastoid muscle. Local anesthetic was used to create a local block and then the incision was carried down through the epidermal and dermal layers. It was deepened with the use of electrocautery through the subcutaneous layer and the platysma. Blunt dissection was then used to extend this deeper yet to the anterior border of the sternocleidomastoid muscle. The left common carotid artery was palpated significantly anteriorly. Careful dissection followed that we could establish our anatomy and shortly thereafter were able to identify the left internal jugular vein also coursing anterior to our position. Inferiorly we identified the omohyoid muscle and maintain this intact as it appeared it would not interfere with our dissection. Directly before us was a firm dominant mass and we sought the smaller lesion more superiorly that had appeared as a separate entity on patient's prior imaging with clear cleavage plane. In the superior aspect of our incision we were gradually able to make it out what appeared to be an enlarged lymph node. This was soft in its consistency but rather densely adherent to the anatomy posteriorly. The harmonic scalpel was used to divide attachments to try to minimize risk for bleeding or lymphatic leak. Ultimately we were able to circumferentially dissect this superior structure and submitted a superior portion of this mass for frozen section to pathology. Pathology would later report that this was consistent with lymphoid tissue. The remainder of the specimen was submitted to pathology for additional processing. We also discussed with pathology potentially performing an incisional biopsy of the more dominant mass to be sure the surgical specimen was parts representative. Through this discussion and discussion with vascular surgery we ultimately resolved to perform this incisional biopsy of the dominant mass using an 11 blade scalpel to obtain a roughly 1.5 x 1.5 cm cubic specimen was extracted from the superior aspect of the mass. There was very little blood loss with this incisional biopsy and no evidence of lymphatic leak. Specimen was passed off the field labeled left neck mass. The remaining mass was cauterized to try to do ablate the surface and minimize any risk for lymphatic leak if it ultimately was characterized as an abnormal lymph node. Hemostasis was sought in the surgical cavity and there was very slight ooze medially but no discrete source. Therefore we placed a small sectio (more content not included)... Normal [facility] Prothrombin Time w/INRon INR Coag (PPP) [Relative time] 2.3 {INR} Normal [facility] Comment on above: Performed By: #### L 300.3900 #### [facility] [address] [place], [place], [id number] PT Coag (PPP) [Time] 25.7 s High 11.7-14.9 [facility] Comment on above: Performed By: #### L 300.3900 #### [facility] [address] [place], [place], [id number] Protime w/INR Fingerstickon 01-27-2025 INR Coag (PPP) [Relative time] 2.1 {INR} Normal [facility] Comment on above: Result Comment: Crit ical Value > 4.0 Performed By: #### L 9200.0000 #### [facility] [address] [place], [place], [id number] Protime Coagsen 23.2 SEC High 11.7-14.9 [facility] Comment on above: Performed By: #### L 9200.0000 #### [facility] [address] [place], [place], [id number] Surgery Specimen Level IIIon 01-27-2025 Surgery Specimen Level III Patient Age/Sex Location Account Attending Physician LARA TAPIA 79/M [facility] [id number]. Juan Campbell MD Specimen: [id number] Received: 01/27/25 Status: MARCOS Barrera Num: [id number] Spec Type: LYMPH NODE Subm Dr: Dr. Juan Campbell MD HEADER OPERATION: Excision, lymph node left cervical PRE-OP DIAGNOSIS: Mass of left side of neck TISSUE SUBMITTED: A- Left cervical mass, B- Level 3 lymph node left neck, C- Left neck mass FROZEN SECTION DIAGNOSIS A. Intraoperative Touch Prep: - Lymphoid tissue. Will do lymphoma workup on additional tissue to be submitted per Dr Campbell. Diagnosis provided by Eliel Wild MD at 2:20 PM, 01/27/2025. MICROSCOPIC DIAGNOSIS A. Cervical, left, mass, excision: - Lymphoid tissue present per intraoperative touch prep. - Final diagnosis is pending formal consultation at [facility] and a separate report will follow. B. Lymph node, neck, left, level 3, excision: - Lymphoid tissue present per touch prep. - Tissue sample sent for flow cytometry. - Final diagnosis is pending formal consultation at [facility] and a separate report will follow. C. Neck, left, mass, incisional biopsy: - Abnormal cellularity per touch prep - Tissue sample sent for flow cytometry. - IHC for pankeratin is negative for evidence of metastatic carcinoma. - Final diagnosis is pending formal consultation at [facility] and a separate report will follow. COMMENT Dr Campbell's office was notified of send out to [facility] for formal consultation and extended [id number] to be expected, by Christiano Monroy 01/28/2025. MICROSCOPIC DESCRIPTION Slides are reviewed. Patient Age/Sex Location Account Attending Physician LARA TAPIA 79/M [facility] [id number]. Juan Campbell MD GROSS DESCRIPTION A. Received fresh for intraoperative consultation labeled patient's name and date of . Designated as left cervical mass left is a 0.6 x 0.3 x 0.2 cm sectioning reveals focally congested cut surfaces. Touch preparations are made. The specimen is entirely submitted in 1 cassette. B. Received fresh labeled with the patient's name and date of . Designated as level 3 lymph node left neck is a 1.5 x 0.8 x 0.4 cm pink-red apparent lymph node which is bisected. Touch preparations are made. A portion is placed in RPMI for potential future ancillary studies. Entirely submitted in 1 cassette. C. Received fresh labeled the patient's name and date of . Designated as left neck mass is a 1.8 x 0.7 x 1.1 cm pink-red tissue fragment, devoid of orientation. Sectioning reveals vargas-pink to yellow-green, soft cut surfaces. Touch preparations are made. A portion is placed in RPMI for potential future ancillary studies. Entirely submitted in 2 cassettes. CO 01/27/2025 CPT:38776n7,76323 Patient Age/Sex Location Account Attending Physician LARA TAPIA 79/M [facility] [id number] Dr. Juan Campbell MD Signed (signature on file) Dr. Maria De Jesus Wild MD 01/28/25 1333 Normal [facility] Comment on above: Performed By: #### P SUIII ####[facility] [address] [place], [place], [address] MR/BMSBk 01-25-2025 MR/BMS.BVS [facility] [address] [place], [place] [address] OFFICE VISIT Date of Service: 01/25/25 MR#: [id number] Acct: [id number] Name: LARA TAPIA Rep #: [id number] : 1945 Provider: Dr. Sony López MD Age/Sex: 79/M Location: [facility] Status: Signed Intake Vital Signs 12/23/24 08:28 01/25/25 12:25 Height 5 ft 8.5 in Weight: 197 lb 187 lb BMI 29.5 BP 168/67 H 108/59 L Blood Pressure Location Rt brachial Lt brachial Position Sitting Sitting Respiration 16 16 Pulse 59 L Pulse Source Auscultation Temp 97.7 F L Temp Source Temporal Pulse Oximetry (%) 98 Oxygen Delivery Method room air Intake Visit Reasons: Pre Op Visit Is patient in pain?: Yes Allergies pregabalin (From Lyrica) Adverse Reaction (Verified 01/13/25 14:04) Other Medications ???Medication ???Instructions ???Recorded ???Confirmed ???Type gabapentin 300 mg capsule 900 mg PO TID PAIN 09/06/22 History glimepiride 4 mg tablet 4 mg PO BID DIABETES 09/06/22 07/2 08/01 History yzshaglyavu-hnmejxtlw-uoi C-Mn 500 1 cap PO DAILY SUPPLEMENT 01/25/25 History mg-400 mg capsule (Glucosamine Chondroitin Maximum Strength) metformin 750 mg tablet,extended 750 mg PO BID DIABETES 09/06/22 History release 24 hr magnesium oxide 500 mg capsule 500 mg PO DAILY SUPPLEMENT 3 01/25/25 History cholecalciferol (vitamin D3) 25 25 mcg PO DAILY SUPPLEMENT 3 01/25/25 History mcg (1,000 unit) capsule (Vitamin D3) meloxicam 7.5 mg tablet 7.5 mg PO PRN PRN FOOT PAIN 01/25/25 History simvastatin 20 mg tablet 20 mg PO DAILY 10/11/22 01/25/25 H istory clobetasol 0.05 % topical ointment 1 applic topical DAILY 07/10/23 01/25/25 History (Temovate) lamotrigine 25 mg tablet 25 mg PO DAILY PT UNSURE 01/15/24 01/25/25 History losartan 50 mg tablet 50 mg PO QDAY 01/15/24 01/25/25 Hi story potassium gluconate 595 mg (99 mg) 595 mg PO DAILY 01/13/25 5 History tablet warfarin 4 mg tablet 4 mg PO DAILY 01/13/25 01/25/25 Hi story Have you fallen in the past year?: Yes PFSH Medical History Wears dentures History of pain when walking History of echocardiogram Normal Holter exam Cardiology follow-up encounter PAF (paroxysmal atrial fibrillation) History of stroke Macrocytic anemia Thrombocytopenia Atrial fibrillation with rapid ventricular response Vision loss, right eye Wears partial dentures Wears glasses High cholesterol Easy bruising Excessive bleeding Non-smoker History of pain when walking Carotid stenosis, right Hypercholesteremia Hypertension Diabetes mellitus Surgical History History of right-sided carotid endarterectomy Hx of bilateral cataract extraction Hx of colonoscopy Hx of total knee replacement Hx of hernia repair Hx laparoscopic cholecystectomy Social History Smoking Status: Never smoker HPI HPI HPI: LARA TAPIA, is a 79 M who presents to the office today for discussion prior to neck mass/lymph node removal with Dr. Campbell 01/27. Given proximity to left carotid I will be assisting with surgery. He has history of prior right CEA in 2022 which remains satisfactory on surveillance duplex. He has moderate left ICA stenosis. ROS General General: No weight change, appetite, fatigue, colon cancer, breast cancer or weakness HEENT HEENT: No difficulty swallowing, eye injury, eye surgery, swollen glands or hoarseness Additional Details: rt eye lost sight 2yrs Endo Endocrine: Yes diabetes mellitus; No thyroid disease, thyroid cancer, Hair loss, heat intolerance or cold intolerance Skin Skin: No rash or changing moles Breast Breast: Yes left breast lump, right breast lump, nipple discharge, breast pain, abnormal mammogram, abnormal US and breast enlargement Musc Musculoskeletal: Yes back problems; No arthritis, rheumatoid arthritis, gout or joint pain Cardio Cardiovascular: No murmur, pacemaker, heart disease, atrial fibrillation, high blood pressure, heart attack, heart stent, palpitations, shortness of breath with exertion or chest pain Psych Psychiatric: No depression, anxiety or hearing voices Resp Respiratory: No shortness of breath, No sleep apnea, No cough, No COPD, No asthma, No emphysema and No wheezing Gastro Gastrointestinal: No abdominal pain, No nausea or vomiting, No diarrhea, Yes constipation, No blood in stool, No acid reflux, No hemorrhoids, No ulcers, No gallbladder problem and No black,tarry stools Jose Hematologic: Yes blood thinners, No blood disorders, No bleeding, No an (more content not included)... Normal [facility] normalized rat io (INR) calculationOrdered By: Torri Mendoza on 01-19-2025 INR Coag (Bld) [Relative time] 2.6 {INR} [facility] Prothrombin Time w/INRon INR Coag (PPP) [Relative time] 2.6 {INR} Normal [facility] Comment on above: Performed By: #### L 300.3900 ####[facility] [id number] [place], [place], [id number] PT Coag (PPP) [Time] 28.5 s High 11.7-14.9 [facility] Comment on above: Performed By: #### L 300.3900 ####[facility] [address] [place], [place], [id number] Prothrombin timeOrdered By: Torri Mendoza on 01-19-2025 PT Coag (PPP) [Time] 28.5 s High 11.7-14.9 [facility] MR/PATCyril 01-13-2025 MR/PAT.[facility] Medical Records Department [address] [place] [address] PAT - Anesthesia 01/13/25 1613 MR#: [id number] Acct: [id number] Name: LARA TAPIA Rep #: [id number] : 1945 79 From: Tyson Ruby MD PCP: Dr. Harlan Ford, DO Status:PRE SDC Y Race: C [place] [facility] [place]Assessment Diagnosis/Proposed Procedure Planned Operative Procedure(s): (L) Excision, Lymph Node left cervical with frozen section Anesthesia History Anesthesia History - certified medical assistant: Anesthesia History - certified medical assistant Hx Hospitalization No 01/13/25 14:32 Any Problems With Anesthesia No 01/13/25 14:32 Cholinesterase deficiency No 01/13/25 14:32 You/Your Family Experience No 01/13/25 14:32 fever (hyperthermia) with Relationship Recent Exposure to Contagious No 09/19/22 10:42 Disease Does patient have nerve No 01/13/25 14:32 stimulator Patient instructed to have device shut off --Does patient have Pacemaker or ICD? When Was Last Pacemaker Check QUESTION #4 FULL TEXT: You/Your Family Experience fever (hyperthermia) with Anesthesia Last Oral Intake Last Oral intake: Last Oral Intake NPO since Meds taken in AM with sips of water? Meds patient instructed to take am of surgery PONV PONV - certified medical assistant: PONV - certified medical assistant Female No 01/13/25 14:32 HX of Motion Sickness No 01/13/25 14:32 HX of N/V After Surgery No 01/13/25 14:32 Non-Smoker Yes 01/13/25 14:32 Duration of Surgery greater No 01/13/25 14:32 than 60 minutes Number of Risk Factors 1 01/13/25 14:32 PONV Score Low Risk 01/13/25 14:32 Height Weight Height Weight: Anesthesia: Height Weight Height 5 ft 8.5 in 12/23/24 08:28 Respiratory Assessment Respiratory Assessment - certified medical assistant: Respiratory Tract Infection Hx - certified medical assistant Hx Respiratory Tract Infection No 01/13/25 14:32 STOP Sleep Apnea STOP Sleep Apnea - certified medical assistant: STOP Sleep Apnea - certified medical assistant Hx Hypertension No 01/13/25 14:32 Hx Sleep Apnea No 01/13/25 14:32 CPAP BIPAP Do you snore loudly (louder No 01/13/25 14:32 than talking or can be heard Do you often feel tired/ No 01/13/25 14:32 fatigued/ sleepy during daytime? Has anyone observed you stop No 01/13/25 14:32 breathing during sleep? STOP Results Negative 01/13/25 14:32 QUESTION #5 FULL TEXT : Do you snore loudly (louder than talking or can be heard through closed doors)? 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 Specify any problems Hx of Preganancy in last 3 N/A 01/13/25 14:32 Months Nurse Filling Out Transfusion VCHRISTIN 01/13/25 14:32 Questions: Date: 01/13/25 01/13/25 14:32 Time: 14:33 01/13/25 14:32 Patient unable to answer at this time (ie. confused, unrespo /Reproduction History /Reproductive History - certified medical assistant: /Reproductive Hx- certified medical assistant Hx Now No 01/13/25 14:32 Gestational Age (in weeks): EDC: Hx Hx Para Hx Section SAB No 01/13/25 14:32 PFSH Medical History (Updated 01/13/25 @ 14:31 by Natalya Zamarripa) Wears dentures History of pain when walking History of echocardiogram Normal Holter exam Cardiology follow-up encounter PAF (paroxysmal atrial fibrillation) History of stroke Macrocytic anemia Thrombocytopenia Atrial fibrillation with rapid ventricular response Vision loss, right eye Wears partial dentures Wears glasses High cholesterol Easy bruising Excessive bleeding Non-smoker History of pain when walking Carotid stenosis, right Hypercholesteremia Hypertension Diabetes mellitus Home Medications ???Medication ???Instructions ???Recorded ???Last Taken ???Type gabapentin 300 mg capsule 900 mg PO TID PAIN 09/06/22 History glimepiride 4 mg tablet 4 mg PO BID DIABETES 09/06/2201/05 History uwftmnakdwe-vpfyjqkvk-enf C-Mn 500 1 cap PO DAILY SUPPLEMENT 01/23/23 History mg-400 mg capsule (Gluc (more content not included)... Normal [facility] Prothrombin Time w/INRon INR Coag (PPP) [Relative time] 4.1 {INR} Invalid Interpretation Code [facility] Comment on above: Order Comment: CRITI KHOI VALUE CALLED TO HSIROO52/08/25 1110 Meredith Quintana.RESULTS READ BACK BY PHILL. Performed By: #### L 9200.0000 #### [facility] [address] [place], [place], [id number] PT Coag (PPP) [Time] 40.9 s High 11.7-14.9 [facility] Comment on above: Order Comment: CRITI KHOI VALUE CALLED TO VRVEQS89/08/25 1110 Meredith Mariano.RESULTS READ BACK BY PHILL. Performed By: #### L 9200.0000 #### [facility] [address] [place], [place], [address] Surgery Visit Reporton 12-23 Surgery Visit Report [facility] [address] [place], [place] [address] OFFICE VISIT Date of Service: 12/23/24 MR#: [id number] Acct: [id number] Name: LARA TAPIA Rep #: [id number] : 1945 Provider: Dr. Juan quintana MD Age/Sex: 78/M Location: [facility] Status: Signed Intake Vital Signs 01/15/24 10:30 12/23/24 08:28 Height 5 ft 9 in 5 ft 8.5 in Weight: 197 lb BMI 29.5 BP 168/67 H Blood Pressure Location Rt brachial Position Sitting Respiration 16 Intake Visit Reasons: REVIEW IMAGING DISCUSS BIOPSY IN OR Chief Complaint: enlarged lymph nodes Allied Health Professional Required: No Is patient in pain?: No Allergies pregabalin (From Lyrica) Adverse Reaction (Verified 12/23/24 08:28) Other Medications ???Medication ???Instructions ???Recorded ???Confirmed ???Type cyanocobalamin (vitamin B-12) 1,000 mcg PO DAILY SUPPLEMENT 08/3012/23/24 History 1,000 mcg tablet (Vitamin B-12) gabapentin 300 mg capsule 900 mg PO TID PAIN 09/06/22 History glimepiride 4 mg tablet 4 mg PO BID DIABETES 09/06/2212/06 History ehzfphfqqzp-kpchaiqpg-yph C-Mn 500 1 cap PO DAILY SUPPLEMENT 12/23/24 History mg-400 mg capsule (Glucosamine Chondroitin Maximum Strength) metformin 750 mg tablet,extended 750 mg PO BID DIABETES 09/06/22 History release 24 hr magnesium oxide 500 mg capsule 500 mg PO DAILY SUPPLEMENT 3 12/23/24 History cholecalciferol (vitamin D3) 25 25 mcg PO DAILY SUPPLEMENT 3 12/23/24 History mcg (1,000 unit) capsule (Vitamin D3) meloxicam 7.5 mg tablet 7.5 mg PO PRN PRN FOOT PAIN 12/23/24 History simvastatin 20 mg tablet 20 mg PO DAILY 10/11/22 12/23/24 H istory clobetasol 0.05 % topical ointment 1 applic topical DAILY 07/10/23 12/23/24 History (Temovate) lamotrigine 25 mg tablet 25 mg PO DAILY PT UNSURE 01/15/24 12/23/24 History losartan 50 mg tablet 50 mg PO QDAY 01/15/24 12/23/24 Hi story warfarin 2 mg tablet 2 mg PO DAILY #30 tabs 12/23/24 06 /18/25 Rx warfarin 4 mg tablet 4 mg PO DAILY #120 tabs 10/07/24 0 12/23/24 Rx Have you fallen in the past year?: No PFSH Medical History PAF (paroxysmal atrial fibrillation) History of stroke Macrocytic anemia Thrombocytopenia Atrial fibrillation with rapid ventricular response Vision loss, right eye Wears partial dentures Wears glasses High cholesterol Easy bruising Excessive bleeding Non-smoker History of pain when walking Carotid stenosis, right Hypercholesteremia Hypertension Diabetes mellitus Surgical History History of right-sided carotid endarterectomy Hx of bilateral cataract extraction Hx of colonoscopy Hx of total knee replacement Hx of hernia repair Hx laparoscopic cholecystectomy Social History Smoking Status: Never smoker HPI HPI HPI: Patient is a 79-year-old male who presents for evaluation of new left-sided neck mass/adenopathy?. Patient presents today with his son. He states that this was purely an incidental finding when he underwent imaging of his carotid arteries for vascular surgery, Dr. López, 5 to 6 weeks ago. He denies any associated tenderness. He denies any associated night sweats. He denies any recent weight loss. He denies any personal history of previous cancer. Mr. Tapia does have a history of salivary gland swelling which he states occurred approximately 4 times in the last 10 years. There is no family history for lymphoma or hematologic malignancies as he can recall. Mr. Tapia reports that he remains pretty active but he confesses that he is getting tired easier than he used to. ROS General General: No weight change, appetite, fatigue, colon cancer, breast cancer or weakness HEENT HEENT: Yes swollen glands; No difficulty swallowing, eye injury, eye surgery or hoarseness Endo Endocrine: Yes diabetes mellitus; No thyroid disease, thyroid cancer, Hair loss, heat intolerance or cold intolerance Skin Skin: No rash or changing moles Breast Breast: No left breast lump, right breast lump, nipple discharge, breast pain, abnormal mammogram, abnormal US or breast enlargement Musc Musculoskeletal: No back problems, arthritis, rheumatoid arthritis, gout or joint pain Cardio Cardiovascular: Yes atrial fibrillation; No murmur, pacemaker, heart disease, high blood pressure, heart attack, heart stent, palpitations, shortness of breath with exertion or chest pain Psych Psychiatric: No depression, anxiety or hearing voices Resp Respiratory: No shortness of breath, No sleep apnea, No cough, No COPD, No asthma, No emphysema and No (more content not included)... Normal [facility] CNOVon 12-22-2024 CNOV Office Visit (FAMPWS ) -- TAPIALARA Steiner ([id number]) 1945 M Date Time Provider Department 12/22/24 10:00 [facility] your visit today, we recorded the following information about you: Temperature Pulse Respiration Blood pressure 96.4 degrees 60/minute 16/minute 120/68 Weight Height 88.9 kg 1.73 m Harlan Ford DO 12/23/2024 7:12 AM Signed Lara tSeiner Willie is a 78 year old male here for a Medicare wellness visit. Medicare Health Risk Assessment General Health Good Exercise: Minutes/Day 50 min Exercise: Days/Week 5 days Alcohol: Daily Use 2-4 times a month Alcohol: Drinks/Day 3 or 4 Alcohol: 6 or more drinks Never Feel off balance Yes Concerns: Teeth/Dentures No Concerns: Sexual function Yes Troubled by feelings None of the above Frequency: Eating healthy diet Several days ADLs requiring help None of the above Safety precautions in home/vehicle Yes Smoke, vape, chews tobacco No Difficulty hearing No Difficulty seeing Yes Current Providers Specialists: I have reviewed specialist-related care of the patient in the medical record. Medical/Family history review Reviewed and updated problem list, medical/surgical/family/so cial history, medications, and allergies. Opioid use review Opioid Medications (last 90 days) No data to display Anxiety/Depression screening PHQ-2 Score: 0 (Lower risk for depression) Recommendation: no further intervention at this time Cognitive screening Mini Cog Score: 3 Cognitive screening reviewed and No further action needed (score 3-5). Functional Observation Was the patient's Timed Up AND Go test unsteady or >= 12 seconds? No Advance Care Planning Surrogate decision maker and/or advance care plan documented Measurements BP 120/68 Pulse 60 Temp (!) 35.8 ?C (96.4 ?F) (Right Tympanic) Resp 16 Ht 173 cm (5' 8.11) Wt 88.9 kg (196 lb) BMI 29.71 kg/m? Vision Screening: Follows with optometry/ophthalmology Assessment/Plan Medicare annual wellness visit, subsequent (Z00.00) - Counseled on healthy diet and regular exercise - Fall avoidance information provided - Personalized prevention plan provided - Discussed need for and benefit of weight loss. BMI 29.71 kg/(m2) DO Logan Sandoval Jordan L, DO 12/23/2024 7:12 AM Signed Subjective Lara Tapia is a 78-year-old male with a history of diabetes, presenting for follow-up on recent thyroid ultrasound results. neck mass: - Recent thyroid ultrasound showed a 4 cm cystic structure above the left lobe of the thyroid, with an adjacent lymph node. - has been seen by speicalist at [facility]- unsure next steps will d/w speciliast this tomorrow - asymptomatic - Follow-up appointment with Dr. Campbell scheduled for tomorrow. Diabetes: - Recent blood glucose readings range from 81-137 mg/dL. - Noted higher readings around birthday and Father's Day. - Last A1c 6 months ago was 6.4%. - admits that he is walking but not exercising as much as he should be HPL: - taking Zocor - no SE with medication - admits he could do better with dietary improvements as well HTN: - well controlled - denies any recent CP or dyspnea or dizziness/Lh or edema Constitutional: (-) malaise Gastrointestinal: (-) abdominal pain Objective Blood pressure 120/68, pulse 60, temperature (!) 35.8 ?C (96.4 ?F), temperature source Right Tympanic, resp. rate 16, height 173 cm (5' 8.11), weight 88.9 kg (196 lb). GENERAL: NAD, alert and oriented. SKIN: Unremarkable, no rash or skin lesions. HEAD: Normocephalic. EYES: PERRLA, EOMI, conjunctiva clear. EARS: External ears normal, canals clear, TM's normal. NOSE/SINUSES: Nares normal. Septum midline. OROPHARYNX: Lips, mucosa, and tongue normal, good dentition. No oral lesions noted. NECK: Supple, no lymphadenopathy, normal thyroid, no carotid bruits. LUNGS: Clear to auscultation bilaterally, no wheezes/rhonchi/rales. HEART: Regular rate and rhythm, no murmurs. No ectopy. EXTREMITIES: Normal, no deformities, no skin discoloration, no edema. NEURO: Awake, alert and oriented x3, cranial nerves II-XII grossly intact, normal gait, no involuntary motions. Labs: - A1c: 6.4 Imaging: - Thyroid Ultrasound: No abnormalities of the thyroid gland - Neck Ultrasound: 4 cm cystic lesion above the left lobe of the thyroid with an adjacent lymph node Assessment AND Plan 1. Type 2 diabetes mellitus with diabetic polyneuropathy, without long-term current use of insulin (HCC) (E11.42) - Blood glucose levels have been well-controlled, with recent readings ranging from 81 to 137 mg/dL. - Last HbA1c was 6.4% six months ago. - Ordered cblpk-nt-lctg HbA1c test to assess current glycemic control. - Continue current diabetes management regimen. 2. Acute cystitis with hematuria (N30.01) 3. Other polyneuropathy (G62.89) - Neuro (more content not included)... Normal [facility] HEMOGLOBIN A1C (POC)on 12-22 HbA1c (Bld) [Mass fraction] 6.5 % Abnormal 4.3 - 5.6 % [facility] Comment on above: Location:[address], [place], [address] Point of care (POC) Hemoglobin A1c (HGBA1C) testing is intended to assess glucose control and provide a management tool for patients known to have diabetes and their healthcare providers. Target HGBA1C levels may depend on specific clinical circumstances. POC HGBA1C is not intended for use as a diagnostic or screening test; laboratory-based testing should be used for diagnostic purposes. The following information is supplemental and may not be applicable to specific diabetes management situations: The POC device oncology specialist provides a normal range of 4.2% to 6.5% for the HGBA1C POC test. However, the [place] [employer] guidelines indicate that patients with HGBA1C in the range of 5.7% to 6.4% are at increased risk for development of diabetes and that intervention by lifestyle modification may be beneficial. A HGBA1C level greater than or equal to 6.5% is considered diagnostic of diabetes, pending confirmatory testing. Use of HGBA1C testing to evaluate glucose control may not be appropriate for patients with hemoglobin variants or other conditions (e.g. anemia) that alter red blood cell lifespan. Interpretation and review of laboratory results Abnormal [facility] International normalized rat io (INR) calculationOrdered By: Torri Mendoza on 12-15-2024 INR Coag (Bld) [Relative time] 2.8 {INR} [facility] Prothrombin Time w/INRon INR Coag (PPP) [Relative time] 2.8 {INR} Normal [facility] Comment on above: Performed By: #### L 9200.0000 #### [facility] [address] [place], [place], [id number] PT Coag (PPP) [Time] 30.2 s High 11.7-14.9 [facility] Comment on above: Performed By: #### L 9200.0000 #### [facility] [address] [place], [place], [id number] Prothrombin timeOrdered By: Torri Mendoza on 12-15-2024 PT Coag (PPP) [Time] 30.2 s High 11.7-14.9 [facility] Head/Neck Soft Tissueon Head/Neck Soft Tissue [facility] Imaging Services [address] [place] [address] Head/Neck Soft Tissue MR#: [id number] Acct: [id number] Name: LARA TAPIA Rep #: [id number] : 1945 M 78 From: Uriel lazo MD PCP: Dr. Harlan Ford, DO Status: [facility] Study: Head/Neck Soft Tissue Date of Exam: 12/11/24 Exam# [id number] Ordering Dr: Juan Campbell MD PROCEDURE: HEAD/NECK SOFT TISSUE 12/11/2024 REASON FOR EXAM: CERVICAL ADENOPATHY TECHNIQUE: Ultrasound imaging of Head and Neck. COMPARISON: CT scan on 11/24/2024. FINDINGS: Multiple heterogeneous, necrotic enlarged lymph nodes are noted. Left lateral to the thyroid measuring 4.5 x 3.8 x 2.9 cm. Complex enlarged lymph node with increased vascularity. Left lateral to the thyroid measuring 1.6 x 1.5 x 1 cm enlarged lymph node with increased vascularity. In the left aspect of the neck/left parotid gland measuring 2.7 x 1.5 x 1.1 cm enlarged lymph node with increased vascularity. In the left aspect of the neck/left parotid gland measuring 1.4 x 0.8 x 1.1 cm enlarged lymph node with increased vascularity. In the left lateral aspect of the neck measuring 3.2 x 2 x 1.9 cm with increased vascularity. US/Head/Neck Soft Tissue IMPRESSION: Cervical lymphadenopathy. No significant change is noted since the prior CT scan. Reading Location: [place] [address] CC: Dr. Harlan Ford, ; Dr. Juan Campbell MD Voip Network Engineer: Signed Normal [facility] Prothrombin Time w/INRon INR Coag (PPP) [Relative time] 2.5 {INR} Normal [facility] Comment on above: Performed By: #### L 9200.0000 #### [facility] [address] [place], [address] PT Coag (PPP) [Time] 27.4 s High 11.7-14.9 [facility] Comment on above: Performed By: #### L 9200.0000 #### [facility] [address] [place], [address] International normalized rat io (INR) calculationOrdered By: Torri Mendoza on 12-02-2024 INR Coag (Bld) [Relative time] 2.4 {INR} [facility] Prothrombin Time w/INRon INR Coag (PPP) [Relative time] 2.4 {INR} Normal [facility] Comment on above: Performed By: #### L 9200.0000 #### [facility] [address] [place], [place], [id number] PT Coag (PPP) [Time] 26.7 s High 11.7-14.9 [facility] Comment on above: Performed By: #### L 9200.0000 #### [facility] [address] [place], [place], [phone] Prothrombin timeOrdered By: Torri Mendoza on 12-02-2024 PT Coag (PPP) [Time] 26.7 s High 11.7-14.9 [facility] CREATININE FINGERSTICKon Creatinine [Mass/Vol] 1.1 mg/dL Normal 0.70-1.30 [facility] Comment on above: Performed By: #### L 9100.0200 #### [facility] [address] [place], [place], [id number] EGFR WB > 60.0000 Normal >60 [facility] Comment on above: Performed By: #### L 9100.0200 #### [facility] [address] [place], [place], [id number] Creatinine measurement at be dsideOrdered By: Juan Campbell on 11-24-2024 Creatinine [Mass/Vol] 1.1 mg/dL 0.70-1.30 [facility] EGFROrdered By: Juan quintana on 11-24-2024 GFR/1.73 sq M.predicted among non-blacks MDRD (S/P/Bld) [Vol rate/Area] mL/min/{1.73_m2} >60 [facility] Soft Tissue Neck WITH Contra ston 11-24-2024 Soft Tissue Neck WITH Contrast [facility] Imaging Services [address] [place], [place] [id number] Soft Tissue Neck WITH Contrast MR#: [id number] Acct: [id number] Name: LARA TAPIA Rep #: [id number] : 1945 M 78 From: Demarco caceres MD PCP: Dr. Harlan Ford DO Status: REG CLI Study: Soft Tissue Neck WITH Contrast Date of Exam: 0 11/24/24 Exam# [id number] Ordering Dr: Juan Campbell MD PROCEDURE: SOFT TISSUE NECK WITH CONTRAST 11/24/2024 REASON FOR EXAM: Left COMPLEX CYSTIC LESION on thyroid sonogram TECHNIQUE: CT of the soft tissues of the neck from the orbits to the upper mediastinum with intravenous contrast. CONTRAST: Isovue-300 VOLUME: 100 mL One or more dose reduction techniques were used (e.g., Automated exposure control, adjustment of the mA and/or kV according to patient size, use of iterative reconstruction technique). RADIATION DOSE SUMMARY: CTDlvol: 19.48 mGy DLP: 710.65 MGycm COMPARISON: Prior thyroid sonogram dated October 09, 2024. FINDINGS: Airway: Midline and patent. Salivary glands: 1.2 cm x 1.4 cm irregular nodule arising from the posterior left parotid gland. Lymph nodes: There is evidence of a 2.4 cm x 3.5 cm by 4.8 cm from the level of the larynx down to the left supraclavicular region. A similar appearing mass measuring 2 cm by 1.3 cm by 4.1 cm is seen in the superior cervical region just deep to the left sternocleidomastoid. These may represent abnormal lymph nodes. There is also evidence of a 1.2 cm by 1.4 cm heterogeneous density arising from the posterior aspect of the left parotid gland. Heterogeneous complex mass in the left cervical region lateral to the larynx. Thyroid: Unremarkable. Vasculature: Carotid arteries and internal jugular veins are unremarkable. Orbits: Unremarkable at visualized levels. Paranasal sinuses and mastoids: Grossly clear at visualized levels. Lung apices: Clear. Upper mediastinum: Coronary artery calcification. Bones: Multilevel degenerative changes of the spine. Other: CT/Soft Tissue Neck WITH Contrast IMPRESSION: Left cervical adenopathy as described as well as an abnormality seen in the left posterior aspect of the parotid gland. Reading Location: [place] [address] CC: Dr. Harlan Ford DO; Dr. Juan Campbell MD Voip Network Engineer: Signed Normal [facility] International normalized rat io (INR) calculationOrdered By: Torri Mendoza on 11-20-2024 INR Coag (Bld) [Relative time] 3.5 {INR} [facility] Prothrombin Time w/INRon INR Coag (PPP) [Relative time] 3.5 {INR} Normal [facility] Comment on above: Performed By: #### L 9200.0000 #### [facility] [address] [place], [address] PT Coag (PPP) [Time] 35.6 s High 11.7-14.9 [facility] Comment on above: Performed By: #### L 9200.0000 #### [facility] [address] [place], [address] Prothrombin timeOrdered By: Torri Mendoza on 11-20-2024 PT Coag (PPP) [Time] 35.6 s High 11.7-14.9 [facility] International normalized rat io (INR) calculationOrdered By: Torri Mendoza on 10-19-2024 INR Coag (Bld) [Relative time] 2.2 {INR} [facility] Prothrombin Time w/INRon INR Coag (PPP) [Relative time] 2.2 {INR} Normal [facility] Comment on above: Performed By: #### L 9200.0000 #### [facility] [address] [place], [address] PT Coag (PPP) [Time] 24.6 s High 11.7-14.9 [facility] Comment on above: Performed By: #### L 9200.0000 #### [facility] [address] [place], [address] Prothrombin timeOrdered By: Torri Mendoza on 10-19-2024 PT Coag (PPP) [Time] 24.6 s High 11.7-14.[address] [facility] International normalized rat io (INR) calculationOrdered By: Torri Mendoza on 10-12-2024 INR Coag (Bld) [Relative time] 1.3 {INR} [facility] PT D/C Summary (1)on 025 PT D/C Summary (1) [facility] [address] [place] [address] / REHABILITATION SERVICES DISCHARGE SUMMARY MR#: [id number] Acct: [id number] Name: LARA TAPIA Rep #: [id number] : 1945 78 From: Thao Aguero MPT Referring Dr.: COMFORT Cee Status: REG RCR Insurance: MEDICARE PART A B [employer] Discharge Summary D/C summary: It has been my pleasure to treat LARA TAPIA referred by Dr. Rylan Cee DPM, with the diagnosis of Neuropathy/R shoulder pain for a total of 24 visit(s). Discharge Date: 10/12/24 Please see the following information for a summary of their discharge status. Subjective Subjective: Pt reports that his shoulder pain comes and goes. He reports that his elbow pain is 95% gone. Every once in awhile he will get a pop. He knows what machines to work on out in the gym. Pain R shoulder pain: Pain Intensity (Out of 10): 2 B feet N T: Pain Intensity (Out of 10): 0 Overall Improvement % Improvement: 50 Objective Objective/Function: UE AROM: R flex 156 and L 153 R shoulder ABD 136 and L 145 R shoulder IR L1 and L T8 R shoulder ER 51 and L 65) UE MMT: R shoulder flex 7.9 and L 10.1 R shoulder ABD 8.1 and L 10.4 R shoulder ER 10.9 and L 14.8 R shoulder IR 11 and L 10.5) Goals Goal 1:: I HEP Goal Progress: Goal Met Goal 2:: Increase R shoulder AROM painfree (R shoulder flex 131 and L 153 R shoulder ABD 123 and L 145 R shoulder IR L1 and L T8 R shoulder ER 51 and L 65) Goal Progress: Progressing Goal 3:: Increase balance (FGA was 7 at eval) Goal Progress: Not Progressing Goal 4:: Increase balance (CATSIB was 82 at eval) Goal Progress: Not Progressing Goal 5:: Increase LE strength (at time of the eval: LE MMT: R hip flex 16 and L 15.1 R knee ext 24.2 and L 25 R knee flex 8.5 and L 10.7 R DF 4.1 and L 7.4 Hip abd B 4-/5 Sit to stand: able to get up without use of her arms) Goal Progress: Goal Met Goal 6:: Increase R shoulder strength (at the time of the eval: R shoulder flex 6.3 and L 10.1 R shoulder ABD 8.1 and L 10.4 R shoulder ER 10.2 and L 14.8 R shoulder IR 10 and L 10.5) Goal Progress: Goal Met Plan Plan: DC PT to HEP and indep gym routine. D/C Information Discharge Comments: DC PT to indep gym routine d/c sentence: If there are questions or concerns regarding this patient's physical therapy, please feel free to call me at [phone]. Thank you for the referral of this patient. Sincerely, Thao Aguero, MPT Balance/Gait/Functional tests Balance/Special Test Scores Functional Gait Assessment Score: 7 % Disability: 76.6700 CATSIB Score (Max score 120 seconds): 82 Lower Extremity Functional Score: 38 Quick DASH Score: 34.0900 Improvement % Improvement: 50 10/12/24 1111 CC: COMFORT Cee; Dr. Harlan Ford, Signed Normal [facility] Prothrombin Time w/INRon INR Coag (PPP) [Relative time] 1.3 {INR} Normal [facility] Comment on above: Performed By: #### L 300.3900 #### [facility] [address] [place], [place], [id number] PT Coag (PPP) [Time] 16.8 s High 11.7-14.9 [facility] Comment on above: Performed By: #### L 300.3900 #### [facility] [address] [place], [place], [id number] Prothrombin timeOrdered By: Torri Mendoza on 10-12-2024 PT Coag (PPP) [Time] 16.8 s High 11.7-14.9 [facility] Thyroidon 10-09-2024 Thyroid [facility] Imaging Services [address] [place] [address] Thyroid MR#: [id number] Acct: [id number] Name: LARA TAPIA Rep #: [id number] : 1945 M 78 From: Luz Patel nd, MD PCP: Dr. Harlan Ford DO Status: REG CLI Study: Thyroid Date of Exam: 10/09/24 Exam# [id number] Ordering Dr: Nellie Morris PROCEDURE: THYROID 10/09/2024 REASON FOR EXAM: THYROID NODULE TECHNIQUE: Thyroid ultrasound COMPARISON: None. FINDINGS: Right thyroid lobe measures 5.2 x 2.3 x 2.5 cm. Left thyroid lobe measures 4.5 x 2.1 x 2.2 cm. Isthmus thickness is0.3 cm. Thyroid Size: Normal Background Echotexture: Homogeneous Thyroid Nodules: No suspicious nodules are identified Other: There is a mildly complex cystic lesion lateral to the left thyroid lobe measuring 4.4 x 3.3 x 2.5 cm without hypervascularity. There is an adjacent lymph node with a thickened cortex just superior to the cystic lesion. US/Thyroid IMPRESSION: No suspicious thyroid nodule. Mildly complex cystic lesion just lateral to the left thyroid lobe with abnormal lymph node. CT neck is recommended for further evaluation if not recently performed. Reading Location: [facility] CC: SIDDHARTHA Ulloa; Dr. Harlan Ford DO Voip Network Engineer: Signed Normal [facility] Anion gap in Serum or Plasma Ordered By: Nellie Morris on 10-06-2024 Anion gap [Moles/Vol] 11 mmol/L 5-15 [facility] BUN/creatinine ratioOrdered By: Nellie Morris on 10-06-2024 Urea nitrogen/Creatinine [Mass ratio] 18.9 mg/mg 10-20 [facility] Bilirubin, totalOrdered By: Nellie Morris on 10-06-2024 Bilirubin [Mass/Vol] 1.20 mg/dL 0.00-1.30 [facility] Carbon dioxide, total [Moles /volume] in Central venous bloodOrdered By: Nellie Morris on 10-06-2024 CO2 [Moles/Vol] 25.1 mmol/L 21.0-32.0 [facility] Chloride assayOrdered By: Vic Morris on 10-06-2024 Chloride [Moles/Vol] 103 mmol/L 98-108 [facility] Comprehensive Metabolic Prof ilon 10-06-2024 Albumin [Mass/Vol] 4.0 g/dL Normal 3.4-4.8 [facility] Comment on above: Performed By: #### L 501.9520, L500.4050 ####[facility] [address] [place], [address] Albumin/Globulin [Mass ratio] 1.6 {ratio} Normal 0.9-2.4 [facility] Comment on above: Performed By: #### L 501.9520, L500.4050 ####[facility] [address] [place], [address] ALK PHOS 52 U/L Normal 40-129 [facility] Comment on above: Performed By: #### L 501.9520, L500.4050 ####[facility] [address] [place], [address] ALT [Catalytic activity/Vol] 25 U/L Normal <=46 [facility] Comment on above: Performed By: #### L 501.9520, L500.4050 ####[facility] [address] [place], [address] AST [Catalytic activity/Vol] 40 U/L High <=37 [facility] Comment on above: Result Comment: Hemo lysis present, Results??could be affected. ?? Performed By: #### L 501.9520, L500.4050 ####[facility] [address] [place], [address] Bilirubin [Mass/Vol] 1.20 mg/dL Normal 0.00-1.30 [facility] Comment on above: Performed By: #### L 501.9520, L500.4050 ####[facility] [address] [place], [address] BUN/CRE 18.9 RATIO Normal 10-20 [facility] Comment on above: Performed By: #### L 501.9520, L500.4050 ####[facility] [address] [place], [address] Calcium [Mass/Vol] 9.3 mg/dL Normal 7.6-11.0 [facility] Comment on above: Performed By: #### L 501.9520, L500.4050 ####[facility] [address] [place], [address] Chloride [Moles/Vol] 103 mmol/L Normal 98-108 [facility] Comment on above: Performed By: #### L 501.9520, L500.4050 ####[facility] [address] [place], [address] CO2 [Moles/Vol] 25.1 mmol/L Normal 21.0-32.0 [facility] Comment on above: Performed By: #### L 501.9520, L500.4050 ####[facility] [address] [place], [address] Creatinine [Mass/Vol] 0.96 mg/dL Normal 0.70-1.20 [facility] Comment on above: Performed By: #### L 501.9520, L500.4050 ####[facility] [address] [place], [address] GAP 11 Normal 5-15 [facility] Comment on above: Performed By: #### L 501.9520, L500.4050 ####[facility] [address] [place], [address] GFR/1.73 sq M.predicted among non-blacks MDRD (S/P/Bld) [Vol rate/Area] 82 mL/min/{1.73_m2} Normal >60 [facility] Comment on above: Result Comment: mL/m in/1.73m2 CKD-EPI Creatinine Equation (2020) Performed By: #### L 501.9520, L500.4050 ####[facility] [address] [place], [address] Globulin (S) [Mass/Vol] 2.5 g/dL Normal 2.2-4.2 [facility] Comment on above: Performed By: #### L 501.9520, L500.4050 ####[facility] [address] [place], [address] Glucose [Mass/Vol] 262 mg/dL High 70-99 [facility] Comment on above: Performed By: #### L 501.9520, L500.4050 ####[facility] [address] [place], [address] Potassium [Moles/Vol] 4.7 mmol/L Normal 3.3-5.1 [facility] Comment on above: Result Comment: Hemo lysis present, Results??could be affected. ?? Performed By: #### L 501.9520, L500.4050 ####[facility] [address] [place], [address] Sodium [Moles/Vol] 139 mmol/L Normal 133-145 [facility] Comment on above: Performed By: #### L 501.9520, L500.4050 ####[facility] [address] [place], [address] T PROT 6.6 g/dL Normal 5.9-8.4 [facility] Comment on above: Performed By: #### L 501.9520, L500.4050 ####[facility] [address] [place], [address] Urea nitrogen [Mass/Vol] 18 mg/dL Normal 4-19 [facility] Comment on above: Performed By: #### L 501.9520, L500.4050 ####[facility] [address] [place], [address] GFR/1.73 sq M.predicted dory g non-blacks MDRD (S/P/Bld) [Vol rate/Area]Ordered By: Nellie Morris on 10-06-2024 Estimated GFR (MDRD) Non-Af Amer 82 >60 [facility] Comment on above: mL/min/1.73m2 CKD-EP I Creatinine Equation (2020) Glomerular filtration rate ( GFR) estimation/1.73 sq m using serum, plasma, or whole bOrdered By: Nellie Morris on 10-06-2024 GFR/1.73 sq M.predicted among non-blacks MDRD (S/P/Bld) [Vol rate/Area] 82 mL/min/{1.73_m2} >60 [facility] Comment on above: mL/min/1.73m2 CKD-EP I Creatinine Equation (2020) Laboratory - Chemistry and C hemistry - challengeOrdered By: Nellie Morris on 10-06-2024 AST [Catalytic activity/Vol] 40 U/L High <38 [facility] Comment on above: Hemolysis present, R esults could be affected. MR/Prieto 10-06-2024 MR/BMS.MASSIEL [facility] [address] [place], [place] [address] OFFICE VISIT Date of Service: 10/06/24 MR#: [id number] Acct: [id number] Name: LARA TAPIA Rep #: [id number] : 1945 Provider: SIDDHARTHA Ulloa Age/Sex: 78/M Location: [facility] Status: Signed Intake Vital Signs 01/15/24 10:30 10/06/24 13:04 Height 5 ft 9 in Weight: 200 lb BP 140/63 H Blood Pressure Location Lt brachial Position Sitting Respiration 14 Pulse 57 L Pulse Source Monitor Temp 97.8 F Temp Source Temporal Pulse Oximetry (%) 99 Oxygen Delivery Method room air Intake Visit Reasons: Discuss US Is patient in pain?: No Allergies pregabalin (From Lyrica) Adverse Reaction (Verified 10/06/24 13:05) Other Medications ???Medication ???Instructions ???Recorded ???Confirmed ???Type cyanocobalamin (vitamin B-12) 1,000 mcg PO DAILY SUPPLEMENT 08/3010/06/24 History 1,000 mcg tablet (Vitamin B-12) gabapentin 300 mg capsule 900 mg PO TID PAIN 09/06/22 History glimepiride 4 mg tablet 4 mg PO BID DIABETES 09/06/2208/01 History efvxaynhgbx-dlaxjdmeu-xbn C-Mn 500 1 cap PO DAILY SUPPLEMENT 10/06/24 History mg-400 mg capsule (Glucosamine Chondroitin Maximum Strength) metformin 750 mg tablet,extended 750 mg PO BID DIABETES 09/06/22 History release 24 hr magnesium oxide 500 mg capsule 500 mg PO DAILY SUPPLEMENT 3 10/06/24 History cholecalciferol (vitamin D3) 25 25 mcg PO DAILY SUPPLEMENT 3 10/06/24 History mcg (1,000 unit) capsule (Vitamin D3) meloxicam 7.5 mg tablet 7.5 mg PO PRN PRN FOOT PAIN 10/06/24 History simvastatin 20 mg tablet 20 mg PO DAILY 10/11/22 10/06/24 H istory clobetasol 0.05 % topical ointment 1 applic topical DAILY 07/10/23 10/06/24 History (Temovate) lamotrigine 25 mg tablet 25 mg PO DAILY PT UNSURE 01/15/24 10/06/24 History losartan 50 mg tablet 50 mg PO QDAY 01/15/24 10/06/24 Hi story warfarin 2 mg tablet 2 mg PO DAILY #30 tabs 06/29/24 Rx warfarin 4 mg tablet 4 mg PO DAILY #90 tabs 10/05/24 Rx Have you fallen in the past year?: Yes PFSH Medical History PAF (paroxysmal atrial fibrillation) History of stroke Macrocytic anemia Thrombocytopenia Atrial fibrillation with rapid ventricular response Vision loss, right eye Wears partial dentures Wears glasses High cholesterol Easy bruising Excessive bleeding Non-smoker History of pain when walking Carotid stenosis, right Hypercholesteremia Hypertension Diabetes mellitus Surgical History History of right-sided carotid endarterectomy Hx of bilateral cataract extraction Hx of colonoscopy Hx of total knee replacement Hx of hernia repair Hx laparoscopic cholecystectomy Social History Smoking Status: Never smoker HPI HPI HPI: LARA TAPIA, is a 78 M who presents to the office today for follow-up of his carotid artery disease s/p R CEA 09/2022 and PAD. He had recent carotid duplex 09/22/24 which demonstrated <50% R ICA stenosis and 50-69% L ICA stenosis with max PSV 155/15 cm/s. He denies any episodes of focal neurologic symptoms over the last year. He denies any hospital admissions for CVA/TIA. His last LEAS was in 12/2023 demonstrating no significant LLE PAD and moderate RLE PAD. He complains of stable, chronic numbness and pin-prick sensation to his bilateral lower legs (left worse than right) and denies any pain/cramping/burning in his lower extremities which is present or worsened with exercise. He does not have any wounds. Carotid duplex also incidentally identified a vascularized structure in the L thyroid. He reports some intermittent fatigue but nothing overwhelming or persistent. He denies any unintentional weight loss or gain, chills, fevers/hot flashes, night sweats, skin changes, difficulty swallowing. He does endorse a change to his voice quality within the last 6 months, he noticed this in June after a fall and feels this has since returned to normal. He denies any history of prior thyroid nodules or thyroid malignancy. ROS General General: No weight change, appetite, fatigue, colon cancer, breast cancer or weakness HEENT HEENT: Yes eye surgery; No difficulty swallowing, eye injury, swollen glands or hoarseness Endo Endocrine: Yes diabetes mellitus; No thyroid disease, thyroid cancer, Hair loss, heat intolerance or cold intolerance Skin Skin: No rash or changing moles Musc Musculoskeletal: Yes arthritis; No back problems, rheumatoid arthritis, gout or joint pain Cardio Cardiovascular: No mur (more content not included)... Normal [facility] Potassium (Unsp spec) [Mass/ Vol]Ordered By: Nellie Morris on 10-06-2024 Potassium [Moles/Vol] 4.7 mmol/L 3.3-5.1 [facility] Comment on above: Hemolysis present, R esults could be affected. Potassium measurement (mass/ volume)Ordered By: Nellie Morris on 10-06-2024 Potassium (Unsp spec) [Mass/Vol] 4.7 mmol/L 3.3-5.1 [facility] Comment on above: Hemolysis present, R esults could be affected. Serum creatinine measurement (mass/volume)Ordered By: Nellie Morris on 10-06-2024 Creatinine [Mass/Vol] 0.96 mg/dL 0.70-1.20 [facility] Serum globulin measurementOr dered By: Nellie Morris on 10-06-2024 Globulin (S) [Mass/Vol] 2.5 g/dL 2.2-4.2 [facility] Serum glucose measurement (m ass/volume)Ordered By: Nellie Morris on 10-06-2024 Glucose [Mass/Vol] 262 mg/dL High 70-99 [facility] Serum or plasma alanine hsu otransferase (ALT) measurementOrdered By: Nellie Morris 10-06-2024 ALT [Catalytic activity/Vol] 25 U/L <47 [facility] Serum or plasma albumin myranda urement (mass/volume)Ordered By: Nellie Morris on 10-06-2024 Albumin [Mass/Vol] 4.0 g/dL 3.4-4.8 [facility] Serum or plasma albumin/glob ulin mass ratioOrdered By: Nellie Morris on 10-06-2024 Albumin/Globulin [Mass ratio] 1.6 {ratio} 0.9-2.4 [facility] Serum or plasma alkaline lee ann sphatase measurementOrdered By: Nellie Morris 10-06-2024 ALP [Catalytic activity/Vol] 52 U/L 40-129 [facility] Serum or plasma calcium myranda urement (mass/volume)Ordered By: Nellie Dowellhn on 10-06-2024 Calcium [Mass/Vol] 9.3 mg/dL 7.6-11.0 [facility] Serum or plasma urea nitroge n measurement (mass/volume)Ordered By: Nellie Dowellhn on 10-06-2024 Urea nitrogen [Mass/Vol] 18 mg/dL 4-19 [facility] Sodium levelOrdered By: Kd Morris on 10-06-2024 Sodium [Moles/Vol] 139 mmol/L 133-145 [facility] TSH DL <= 0.005 mIU/L QnOrde red By: Nellie Dowellhn on 10-06-2024 Thyroid Stimulating Hormone (TSH) 1.550 uIU/mL 0.300-4.20 0 [facility] TSH Qn 1.550 uIU/mL 0.300-4.20 0 [facility] Thyroid Stim Hormone (TSH)on 10-06-2024 TSH 1.550 uIU/mL Normal 0.300-4.20 0 [facility] Comment on above: Performed By: #### L 501.9520, L500.4050 ####[facility] [id number] [place], [address] Total proteinOrdered By: Johan Morris on 10-06-2024 Protein [Mass/Vol] 6.6 g/dL 5.9-8.4 [facility] Re-Evaluation - PT (1)on Re-Evaluation - PT (1) [facility] Physical Therapy [address] [place] [address] / REEVALUATION / MEDICARE RECERTIFICATION PHYSICAL THERAPY MR#: [id number] Acct: [id number] Name: LARA TAPIA Rep #: [id number] : 1945 78 From: Thao Aguero MPT Referring Dr.: COMFORT Cee Status:REG RCR Insurance: MEDICARE PART A B [employer] Re-Evaluation Intro: Dr. Rylan Cee, DPM, It has been my pleasure to treat LARA TAPIA over the last 21 visits for Neuropathy/R shoulder pain. Please see the progress note below for an update on the physical therapy plan of care! Subjective Subjective: Pt reports that he is doing well. He still has tightness at end range. He has pain when he reaches overhead and rates it as a 6-7/10. He feels that he is making progress but then some days he does not feel he is making progress. He does think that the US helps. Objective Objective/Function: R shoulder flex 9.5 and L 10.1 R shoulder ABD 8.2 and L 10.4 R shoulder ER 12.6 and L 14.8 R shoulder IR 11.7 and L 10.5) R shoulder flex 141 and L 153 R shoulder ABD 130 and L 145 R shoulder IR L1 and L T8 R shoulder ER 55 and L 65) Plan Plan Plan: 1X/ week for 3 weeks to advance HEP/Gym routine and continue with US and then probable DC Balance/Gait/Functional tests Balance/Special Test Scores Functional Gait Assessment Score: 7 % Disability: 76.6700 CATSIB Score (Max score 120 seconds): 82 Lower Extremity Functional Score: 48 Quick DASH Score: 40.9075 Goals Goals Goal 1:: I HEP Goal Time Frame: 6-8 Weeks Goal Progress: Goal Met Goal 2:: Increase R shoulder AROM painfree (R shoulder flex 131 and L 153 R shoulder ABD 123 and L 145 R shoulder IR L1 and L T8 R shoulder ER 51 and L 65) Goal Time Frame: 6-8 Weeks Goal 3:: Increase balance (FGA was 7 at eval) Goal Time Frame: 6-8 Weeks Goal 4:: Increase balance (CATSIB was 82 at eval) Goal Time Frame: 6-8 Weeks Goal 5:: Increase LE strength (at time of the eval: LE MMT: R hip flex 16 and L 15.1 R knee ext 24.2 and L 25 R knee flex 8.5 and L 10.7 R DF 4.1 and L 7.4 Hip abd B 4-/5 Sit to stand: able to get up without use of her arms) Goal Time Frame: 6-8 Weeks Goal 6:: Increase R shoulder strength (at the time of the eval: R shoulder flex 6.3 and L 10.1 R shoulder ABD 8.1 and L 10.4 R shoulder ER 10.2 and L 14.8 R shoulder IR 10 and L 10.5) Goal Time Frame: 6-8 Weeks Anticipated Interventions Anticipated Interventions Patient/Client Instruction: Educate patient on: Condition and Plan of Care For the Purpose of:: To increase ROM, To improve nutrient delivery to tissue, To improve muscle performance and motor function, To improve ability to perform ADL's, To increase tolerance to activity/condition/positio n, To improve performance and independence with ADL's, To decrease level of supervision to perform tasks, To improve ability of physical actions for home/community/work/leisur e, To improve gait and locomotor functions, To improve health of tissue, To decrease soft tissue restriction, To increase flexibility/ROM, To improve balance and To improve safety with gait Therapeutic Exercise to Include: Strength training, Endurance training, Balance training, Body mechanics, Postural training, Flexibilty training, Gait and locomotor training, Neuromotor development, Passive ROM and Active ROM For the Purpose of:: To decrease pain, To increase ROM, To improve nutrient delivery to tissue, To improve muscle performance and motor function, To improve ability to perform ADL's, To increase tolerance to activity/condition/positio n, To improve performance and independence with ADL's, To decrease level of supervision to perform tasks, To improve ability of physical actions for home/community/work/leisur e, To improve gait and locomotor functions, To increase flexibility/ROM, To improve endurance, To improve balance and To improve safety with gait Functional Training to Include: Gait training For the Purpose of:: To improve gait and locomotor functions, To increase flexibility/ROM, To improve endurance, To improve balance and To improve safety with gait Re-Evaluation Ending Re-evaluation ending: Please do not hesitate to contact me at [phone] by phone or if you have questions or concerns regarding this new plan of care! Sincerely, Thao Aguero, MPT 09/21/24 1058 CC: COMFORT Cee; Dr. Harlan Ford, DO Signed For Medicare only, by signing this I certify the plan of care. __ Physicians Signature Date Normal [facility] Carotid Duplex Ultrasoundon 09-16-2024 Carotid Duplex Ultrasound [facility] [place] [address] Carotid Duplex Ultrasound 09/16/24 1059 MR#: [id number] Acct: [id number] Name: LARA TAPIA Rep #: [id number] : 1945 78 From: Sony López MD Attending Dr: SIDDHARTHA Ulloa Status: REG CLI Ordering Dr: Nellie Morris Date: 09/16/24 Location: [facility] Sex: M C Admitted: Reason For Study Reason For Study: S/P R CEA Rt. Velocities/BP Lt. Velocities/BP Prox CCA 74.0/7.8 cm/sec. Prox CCA 87.2/9.1 cm/sec. Mid CCA 55.4/10.0 cm/sec. Mid CCA 75.1/8.0 cm/sec. Dist CCA 42.1/3.4 cm/sec. Dist CCA 90.6/12.1 cm/sec. Prox ICA 38.3/8.6 cm/sec. Prox ICA 155.2/15.3 cm/sec. Mid ICA 64.4/11.7 cm/sec. Mid ICA 104.2/17.4 cm/sec. Dist ICA 63.8/14.9 cm/sec. Dist ICA 51.7/4.7 cm/sec. Rt. ICA/CCA = 1.2. Lt. ICA/CCA = 2.1. Prox ECA 120.5/8.6 cm/sec. Prox ECA 168.2/0.0 cm/sec. Rt. Vert. 46.8/9.5 cm/sec. Lt. Vert. 31.9/5.8 cm/sec. Right Extracranial There is heterogeneous, irregular atherosclerotic plaque noted in the right common carotid artery. Vascularized structure noted in the Lt thryoid measuring 4.02x2.33cm. There is heterogeneous, irregular atherosclerotic plaque noted in the right internal carotid artery. There is heterogeneous, irregular atherosclerotic plaque noted in the right external carotid artery. Antegrade flow is noted in the right vertebral artery. Left Extracranial There is heterogeneous, irregular atherosclerotic plaque noted in the left common carotid artery. There is heterogeneous, irregular atherosclerotic plaque noted in the left internal carotid artery. There is heterogeneous, irregular atherosclerotic plaque noted in the left external carotid artery. Antegrade flow is noted in the left vertebral artery. VL/Carotid Duplex Ultrasound Interpretation Summary Mild (<50%) stenosis right extracranial internal carotid. Moderate (50-69%) stenosis left extracranial internal carotid. Patent and antegrade vertebrals bilaterally. Vascularized structure noted in the left thryoid measuring 4.02x2.33cm. Ordering Physician: Nellie Morris Referring Physician: Nellie Morris Performed By: Karla Boss RVT and Student 09/16/24 1543 Date Sony López MD CC: SIDDHARTHA Ulloa; Dr. Harlan Ford DO Date Dictated: 09/16/24 1059 Date Transcribed: 09/16/241542 Voip Network Engineer: Signed Normal [facility] Duplex ultrasound of carotid artery reportOrdered By: Sony López on 09-16-2024 Study report [facility] Cardi[facility] Services [address] [place] [address] Carotid Duplex Ultrasound 09/16/24 1059 MR#: [id number] Acct: [id number] Name: LARA TAPIA Rep #:[id number] : 1945 78 From: Sony Barreto Attending Dr: SIDDHARTHA Ulloa Stat us: REG CLI Ordering Dr: Nellie Morris Date: Location: [facility] Sex: M C Admitted: Reason For Study Reason For Study: S/P R CEA Rt. Velocities/BP Lt. Velocities/BP Prox CCA 74.0/7.8 cm/sec. Prox CCA 87.2/9.1 cm/sec. Mid CCA 55.4/10.0 cm/sec. Mid CCA 75.1/8.0 cm/sec. Dist CCA 42.1/3.4 cm/sec. Dist CCA 90.6/12.1 cm/sec. Prox ICA 38.3/8.6 cm/sec. Prox ICA 155.2/15.3 cm/sec. Mid ICA 64.4/11.7 cm/sec. Mid ICA 104.2/17.4 cm/sec. Dist ICA 63.8/14.9 cm/sec. Dist ICA 51.7/4.7 cm/sec. Rt. ICA/CCA = 1.2. Lt. ICA/CCA = 2.1. Prox ECA 120.5/8.6 cm/sec. Prox ECA 168.2/0.0 cm/sec. Rt. Vert. 46.8/9.5 cm/sec. Lt. Vert. 31.9/5.8 cm/sec. Right Extracranial There is heterogeneous, irregular atherosclerotic plaque noted in the right common carotid artery. Vascularized structure noted in the Lt thryoid measuring 4.02x2.33cm. There is heterogeneous,irregular atherosclerotic plaque noted in the right internal carotid artery. There is heterogeneous, irregular atherosclerotic plaque noted in the right external carotid artery. Antegrade flow is noted in the right vertebral artery. Left Extracranial There is heterogeneous, irregular atherosclerotic plaque noted in the left common carotid artery. There is heterogeneous, irregular atherosclerotic plaque noted in the left internal carotid artery. There is heterogeneous, irregular atherosclerotic plaque noted in the left external carotid artery. Antegrade flow is noted in the left vertebral artery. VL/Carotid Duplex Ultrasound Interpretation Summary Mild (<50%) stenosis right extracranial internal carotid. Moderate (50-69%) stenosis left extracranial internal carotid. Patent and antegrade vertebrals bilaterally. Vascularized structure noted in the left thryoid measuring 4.02x2.33cm. Ordering Physician: Nellie Morris Referring Physician: Nellie Morris Performed By: Karla Boss RVT and Student 09/16/24 1543 Date _ Sony López MD CC: SIDDHARTHA Ulloa; Dr. Harlan Ford DO ~ Date Dictated: 09/16/24 1059 Date Transcribed: 09/16/241542 Voip Network Engineer: Signed [facility] Work Phone: JEFFREYOVjoanne 09-15-2024 [facility] -- LARA TAPIA ([id number]) 1945 M Date Time Provider Department 09/15/24 9:40 AM [facility] During your visit today, we recorded the following information about you: Temperature Pulse Respiration Blood pressure 97 degrees 84/minute 20/minute 120/60 Weight 88.9 kg Harlan Ford DO 09/15/2024 10:27 AM Signed Patient presents with: F/U 3 Month HPI: Lara Tapia is a 78 year old male who presents to the office today for review of health conditions. Concerns today: Overall he is doing okay Tremors, worsening, b/l hands/arms, right >left, sometimes a struggle to hold a spoon to eat or coffee etc. 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 Mr. Tapia has past history of diabetes. Since our [...] a day schedule with sugars in the fasting <100 range. Patient's last HgA1C was Hemoglobin A1C (%) Date Value 06/10/2024 6.4 05/20/2023 7.6 07/28/2021 7.0 05/22/2021 7.0 ) Last Ophthalmology exam was within the past 6 months Mr. Tapia reports history of hyperlipidemia. Current therapy includes simvastatin (Zocor) 20 mg. Denies side effects of muscle weakness or achiness. His most recent lipid panels are reviewed. Cholesterol, Total (mg/dL) Date Value 06/10/2024 174 05/22/2021 188 HDL Cholesterol (mg/dL) Date Value 06/10/2024 39 05/22/2021 40 LDL Cholesterol (mg/dL) Date Value 06/10/2024 98 05/22/2021 101 Triglyceride (mg/dL) Date Value 06/10/2024 187 05/22/2021 233 Mr. Tapia indicates a history of hypertension and states that he is feeling well and denies any symptoms referable to elevated blood pressure. Specifically denies headache, chest pain, palpitations, dyspnea, and peripheral edema. Patient denies any side effects of his medication(s) and is compliant with their regimen. Last 3 Encounter BP Readings: Date: BP: 09/15/2024 120/60 09/02/2024 144/70 07/29/2024 138/70 He watches his diet for sodium, low fat and low cholesterol some of the time. He does not check BP's generally. Lara likes to exercise by walking. PAST MEDICAL HISTORY Diagnosis Date Benign neoplasm of colon Diverticulosis of colon (without mention of hemorrhage) 01/30/2008 Hyperlipemia Hypertension Internal hemorrhoids without mention of complication 01/30/2008 Nonspecific abnormal finding in stool contents Other chronic dermatitis due to solar radiation 04/23/2008 Other seborrheic keratosis 12/20/2008 Pancytopenia 11/28/2007 Personal history of other malignant neoplasm of skin 04/23/2008 PMH - PAST MEDICAL HISTORY OF neuropathy PRURIGO NODULARIS///LICHENIFICATIO N 12/20/2008 Recurrent UTI 01/2023 didn't respond to [...] Never Smokeless tobacco: Never Vaping Use Vaping status: Never Used Substance Use Topics Alcohol use: Yes Comment: beer Drug use: No FAMILY HISTORY Problem Relation Age of Onset Breast Cancer Mother Heart Father chf Breast Cancer Sister Allergies: ALLERGIES Allergen Reactions Lyrica [Pregabalin] Cough Current Meds: propranolol ER (INDERAL LA) 60 mg 24 hr capsule Take 1 capsule by mouth once daily. For tremor losartan (COZAAR) 25 mg tablet Take 1 tablet by mouth once daily. metFORMIN ER (GLUCOPHAGE XR) 750 mg 24 hr tablet Take 1 tablet by mouth two times a day with meals. simvastatin (ZOCOR) 20 mg tablet Take 1 tablet by mouth once daily. gabapentin (NEURONTIN) 300 mg capsule TAKE 3 CAPSULES BY MOUTH 3 TIMES A DAY glimepiride (AMARYL) 4 mg tablet Take 1 tablet by mouth two times a day with meals. meloxicam (MOBIC (more content not included)... Normal [facility] normalized rat io (INR) calculationOrdered By: Torri Mendoza on 09-07-2024 INR Coag (Bld) [Relative time] 2.5 {INR} [facility] Prothrombin Time w/INRon INR Coag (PPP) [Relative time] 2.5 {INR} Normal [facility] Comment on above: Performed By: #### L 300.3900 ####[facility] [id number] [place], [place], [address] Prothrombin timeOrdered By: Torri Mendoza on 09-07-2024 PT Coag (PPP) [Time] 27.6 s High 11.7-14.9 [facility] Comment on above: Performed By: #### L 300.3900 ####[facility] [id number] [place], [place], [address] CNOVon 09-02-2024 [facility] Office Visit ([facility] ) -- LARA TAPIA ([id number]) 1945 M Date Time Provider Department 09/02/24 11:15 AM [facility] During your visit today, we recorded the following information about you: Temperature Pulse Respiration Blood pressure 96.9 degrees 88/minute 16/minute 144/70 Weight 89.1 kg Viral Erickson MD 09/02/2024 11:45 AM Signed Patient presents with: Ear Problem: left ear feels full x 3-5 days HPI: Feeling left ear is plugged for a few days. Past history of cerumen impaction and feels similar. Positive symptoms: ear fullness and decreased hearing, Negative symptoms: Cough, Sore throat, Nasal Congestion, Rhinorrhea, Fever, otorrhea, ear pain, OTC: none MEDICATIONS: Current Outpatient Medications Medication Sig simvastatin (ZOCOR) 20 mg tablet Take 1 tablet by mouth once daily. gabapentin (NEURONTIN) 300 mg capsule TAKE 3 CAPSULES BY MOUTH 3 TIMES A DAY glimepiride (AMARYL) 4 mg tablet Take 1 tablet by mouth two times a day with meals. meloxicam (MOBIC) 7.5 mg tablet TAKE 1 TABLET BY MOUTH ONCE DAILY. NEEDED FOR FOOT PAIN, WITH FOOD. Blood-Glucose Meter monitoring kit Glucose Meter of Choice - Kit - Dx: Other DM Code E11.42 Insulin No metFORMIN ER (GLUCOPHAGE XR) 750 mg 24 hr tablet Take 1 tablet by mouth two times a day with meals. lamoTRIgine (LAMICTAL) 25 mg tablet Take 1 tablet by mouth once daily. Clobetasol Propionate (TEMOVATE) 0.05 % external solution Apply 1 application to affected area once daily as needed (scalp psoriasis). mupirocin (BACTROBAN) 2 % ointment Apply to affected area every 12 hours as needed (skin wound or infection). (Patient not taking: Reported on 09/02/2024) losartan (COZAAR) 50 mg tablet Take 1 tablet by mouth once daily. warfarin (COUMADIN) 4 mg tablet Take 4 mg by mouth daily as directed. 4 mg Sat, Sun, Mon, 8 mg all other days blood sugar diagnostic ([facility] MedicalTOUCH ULTRA TEST) test strip Test blood sugars once daily. DX: E11.42 Insulin: No clopidogrel (PLAVIX) 75 mg tablet Take 75 [...] Insulin: No. Patient uses One Touch Verio cyanocobalamin (VITAMIN B-12) 1,000 mcg tab Take 1,000 mcg by mouth once daily. COMPOUNDED PRESCRIPTION Diabetic shoes Dx: E11.65, DM2 Last office visit 05/20/18. ketoconazole (NIZORAL) 2 % shampoo Apply 1 application to affected area once daily as needed for Itching/Rash (scalp itching). metroNIDAZOLE 0.75 % cream APPLY TO AFFECTED [...] face, eyes, eyelids, and deep fold areas. Xuxsmbnznwc-Oiyrgpssw-Pfp C-Mn (GLUCOSAMINE CHONDROITIN MAXSTR) 500-400 mg ORAL Cap Take one(1) tablet daily. Aspirin 81 mg ORAL Tab Take one(1) tablet daily. No current facility-administered medications for this visit. ALLERGIES: ALLERGIES Allergen Reactions Lyrica [Pregabalin] Cough VITALS: BP 144/70 Pulse 88 Temp 36.1 ?C (96.9 ?F) Resp 16 Wt 89.1 kg (196 lb 6.9 oz) SpO2 97% BMI 30.47 kg/m? PHYSICAL EXAM: GEN: Pleasant, in no acute distress. HEENT: PERRL, EOMI, conjunctiva clear Ears: small cerumen right canal. Cerumen impaction left canal. TMs without erythema, bulge, or effusion after procedures. Sinuses: non-tender frontal sinus, non-tender maxillary sinuses Throat: moist mucous membranes, no erythema, no exudate Neck: supple, no thyromegaly, no lymphadenopathy HEART: regular rate, regular rhythm, no murmurs LUNGS: clear to auscultation, no wheezes or crackles, no increased WOB ASSESSMENT/PLAN: 1. Impacted cerumen of left ear - ICD9: 380.4, ICD10: H61.22 I performed partial removal of cerumen in the left canal with lighted cerumen curette. Successful removal of remaining bilateral cerumen by staff - AMBULATORY EAR LAVAGE/IRRIGATION MD Shaylee HoffRye, MA 09/02/2024 11:45 AM Signed Ambulatory Ear Lavage Pre-treatment: Warm water Treatment: Both ears Equipment and Irrigation solution and Volume used: Single use syringe with single use irrigation tip Water Return flow appearance: Brown Yellow Patient tolerated procedure: yes Tympanic me (more content not included)... Normal [facility] Re-Evaluation - PT (1)on Re-Evaluation - PT (1) [facility] Physical [facility] [address] [place] [address]. [address] [place] [address] / REEVALUATION / MEDICARE RECERTIFICATION PHYSICAL THERAPY MR#: [id number] Acct: [id number] Name: LARA TAPIA Rep #: [id number] : 1945 78 From: Thao Aguero MPT Referring Dr.: COMFORT Cee Status:REG RCR Insurance: MEDICARE PART A B [employer] Re-Evaluation Intro: Dr. Rylan Cee, COMFORT, It has been my pleasure to treat LARA TAPIA over the last 16 visits for Neuropathy/R shoulder pain. Please see the progress note below for an update on the physical therapy plan of care! Subjective Subjective: Pt reports that he is getting better but has some bad days still Objective Objective/Function: R shoulder flex 142 and L 153 R shoulder ABD 140 and L 145 R shoulder IR L1 and L T8 R shoulder ER 60 and L 65) R shoulder flex 10 and L 10.1 R shoulder ABD 10.8 and L 10.4 R shoulder ER 12.7 and L 14.8 R shoulder IR 10 and L 10.5) Plan Plan Plan: Start wrist extensor stretches and eccentric wrist ext exercises. 2X/ week for 8 weeks for R shoulder PROM, AAROM, AROM, scapular and RC strength with HEP. May use US, MH and ice as needed Balance/Gait/Functional tests Balance/Special Test Scores Functional Gait Assessment Score: 7 % Disability: 76.6700 CATSIB Score (Max score 120 seconds): 82 Lower Extremity Functional Score: 48 Quick DASH Score: 40.9075 Goals Goals Goal 1:: I HEP Goal Time Frame: 6-8 Weeks Goal 2:: Increase R shoulder AROM painfree (R shoulder flex 131 and L 153 R shoulder ABD 123 and L 145 R shoulder IR L1 and L T8 R shoulder ER 51 and L 65) Goal Time Frame: 6-8 Weeks Goal 3:: Increase balance (FGA was 7 at eval) Goal Time Frame: 6-8 Weeks Goal 4:: Increase balance (CATSIB was 82 at eval) Goal Time Frame: 6-8 Weeks Goal 5:: Increase LE strength (at time of the eval: LE MMT: R hip flex 16 and L 15.1 R knee ext 24.2 and L 25 R knee flex 8.5 and L 10.7 R DF 4.1 and L 7.4 Hip abd B 4-/5 Sit to stand: able to get up without use of her arms) Goal Time Frame: 6-8 Weeks Goal 6:: Increase R shoulder strength (at the time of the eval: R shoulder flex 6.3 and L 10.1 R shoulder ABD 8.1 and L 10.4 R shoulder ER 10.2 and L 14.8 R shoulder IR 10 and L 10.5) Goal Time Frame: 6-8 Weeks Anticipated Interventions Anticipated Interventions Patient/Client Instruction: Educate patient on: Condition and Plan of Care For the Purpose of:: To increase ROM, To improve nutrient delivery to tissue, To improve muscle performance and motor function, To improve ability to perform ADL's, To increase tolerance to activity/condition/positio n, To improve performance and independence with ADL's, To decrease level of supervision to perform tasks, To improve ability of physical actions for home/community/work/leisur e, To improve gait and locomotor functions, To improve health of tissue, To decrease soft tissue restriction, To increase flexibility/ROM, To improve balance and To improve safety with gait Therapeutic Exercise to Include: Strength training, Endurance training, Balance training, Body mechanics, Postural training, Flexibilty training, Gait and locomotor training, Neuromotor development, Passive ROM and Active ROM For the Purpose of:: To decrease pain, To increase ROM, To improve nutrient delivery to tissue, To improve muscle performance and motor function, To improve ability to perform ADL's, To increase tolerance to activity/condition/positio n, To improve performance and independence with ADL's, To decrease level of supervision to perform tasks, To improve ability of physical actions for home/community/work/leisur e, To improve gait and locomotor functions, To increase flexibility/ROM, To improve endurance, To improve balance and To improve safety with gait Functional Training to Include: Gait training For the Purpose of:: To improve gait and locomotor functions, To increase flexibility/ROM, To improve endurance, To improve balance and To improve safety with gait Re-Evaluation Ending Re-evaluation ending: Please do not hesitate to contact me at [phone] by phone or if you have questions or concerns regarding this new plan of care! Sincerely, Thao Aguero, MPT 09/02/24 1107 CC: COMFORT Cee; Dr. Harlan Ford DO Signed For Medicare only, by signing this I certify the plan of care. __ Physicians Signature Date Normal [facility] normalized rat io (INR) calculationOrdered By: Torri Mendoza on 08-24-2024 INR Coag (Bld) [Relative time] 2.0 {INR} [facility] Prothrombin Time w/INRon INR Coag (PPP) [Relative time] 2.0 {INR} Normal [facility] Comment on above: Order Comment: Comme nts: STANDING ORDER: Fax to [phone] Performed By: #### L 300.3900 ####[facility] [address] [place], [place], [phone] PT Coag (PPP) [Time] 22.6 s High 11.7-14.9 [facility] Comment on above: Order Comment: Comme nts: STANDING ORDER: Fax to [phone] Performed By: #### L 300.3900 ####[facility] [address] [place], [place], [phone] Prothrombin timeOrdered By: Torri Mendoza on 08-24-2024 PT Coag (PPP) [Time] 22.6 s High 11.7-14.9 [facility] Prothrombin Time w/INRon INR Coag (PPP) [Relative time] 1.8 {INR} Normal [facility] Comment on above: Performed By: #### L 300.3900 #### [facility] [address] [place], [place], [phone] PT Coag (PPP) [Time] 21.6 s High 11.7-14.9 [facility] Comment on above: Performed By: #### L 300.3900 #### [facility] [address] [place], [place], [id number] International normalized rat io (INR) calculationOrdered By: Torri Mendoza on 08-03-2024 INR Coag (Bld) [Relative time] 2.0 {INR} [facility] Prothrombin Time w/INRon INR Coag (PPP) [Relative time] 2.0 {INR} Normal [facility] Comment on above: Performed By: #### L 300.3900 ####[facility] [address] [place], [place], [phone] PT Coag (PPP) [Time] 22.6 s High 11.7-14.9 [facility] Comment on above: Performed By: #### L 300.3900 ####[facility] [address] [place], [address] Prothrombin timeOrdered By: Torri Mendoza on 08-03-2024 PT Coag (PPP) [Time] 22.6 s High 11.7-14.9 [facility] Re-Evaluation - PT (1)on Re-Evaluation - PT (1) [facility] [address] [place] [address] [address] [place] [address] / REEVALUATION / MEDICARE RECERTIFICATION PHYSICAL THERAPY MR#: [id number] Acct: [id number] Name: LARA TAPIA Rep #: [id number] : 1945 78 From: Thao Aguero MPT Referring Dr.: COMFORT Cee Status:REG RCR Insurance: MEDICARE PART A B [employer] Re-Evaluation Intro: Dr. Rylan Cee, COMFORT, It has been my pleasure to treat LARA TAPAI over the last 7 visits for Neuropathy/R shoulder pain. Please see the progress note below for an update on the physical therapy plan of care! Subjective Subjective: Pt fell on the Jun 11. It is not getting better. It is his R shoulder on the top and the elbow and he has a thumb trigger finger. He went in for the x-rays and did not have arthritis. He can lay on his L shoulder but it will wake him up. He has N T in the upper shoulder. He reports that the pain moves around. He is not lifting or riding the bike with his R hand. Pt wants to hold off on the neuropathy therapy for now and concentrate on the shoulder Objective Objective/Function: R handed: UE AROM: R shoulder flex 131 and L 153 R shoulder ABD 123 and L 145 R shoulder IR L1 and L T8 R shoulder ER 51 and L 65 UE MMT: R shoulder flex 6.3 and L 10.1 R shoulder ABD 8.1 and L 10.4 R shoulder ER 10.2 and L 14.8 R shoulder IR 10 and L 10.5 PROM: pain at all end ranges. painful end feel Plan Plan Plan: HEP: green mid rows in sitting unless therapist there due to balance, supine wand flexion 2X/ week for 8 weeks for R shoulder PROM, AAROM, AROM, scapular and RC strength with HEP. May use US, MH and ice as needed Balance/Gait/Functional tests Balance/Special Test Scores Functional Gait Assessment Score: 7 % Disability: 76.6700 CATSIB Score (Max score 120 seconds): 82 Lower Extremity Functional Score: 48 Quick DASH Score: 50.0000 Goals Goals Goal 1:: I HEP Goal Time Frame: 6-8 Weeks Goal 2:: Increase R shoulder AROM painfree (R shoulder flex 131 and L 153 R shoulder ABD 123 and L 145 R shoulder IR L1 and L T8 R shoulder ER 51 and L 65) Goal Time Frame: 6-8 Weeks Goal 3:: Increase balance (FGA was 7 at eval) Goal Time Frame: 6-8 Weeks Goal 4:: Increase balance (CATSIB was 82 at eval) Goal Time Frame: 6-8 Weeks Goal 5:: Increase LE strength (at time of the eval: LE MMT: R hip flex 16 and L 15.1 R knee ext 24.2 and L 25 R knee flex 8.5 and L 10.7 R DF 4.1 and L 7.4 Hip abd B 4-/5 Sit to stand: able to get up without use of her arms) Goal Time Frame: 6-8 Weeks Goal 6:: Increase R shoulder strength (at the time of the eval: R shoulder flex 6.3 and L 10.1 R shoulder ABD 8.1 and L 10.4 R shoulder ER 10.2 and L 14.8 R shoulder IR 10 and L 10.5) Goal Time Frame: 6-8 Weeks Anticipated Interventions Anticipated Interventions Patient/Client Instruction: Educate patient on: Condition and Plan of Care For the Purpose of:: To increase ROM, To improve nutrient delivery to tissue, To improve muscle performance and motor function, To improve ability to perform ADL's, To increase tolerance to activity/condition/positio n, To improve performance and independence with ADL's, To decrease level of supervision to perform tasks, To improve ability of physical actions for home/community/work/leisur e, To improve gait and locomotor functions, To improve health of tissue, To decrease soft tissue restriction, To increase flexibility/ROM, To improve balance and To improve safety with gait Therapeutic Exercise to Include: Strength training, Endurance training, Balance training, Body mechanics, Postural training, Flexibilty training, Gait and locomotor training, Neuromotor development, Passive ROM and Active ROM For the Purpose of:: To decrease pain, To increase ROM, To improve nutrient delivery to tissue, To improve muscle performance and motor function, To improve ability to perform ADL's, To increase tolerance to activity/condition/positio n, To improve performance and independence with ADL's, To decrease level of supervision to perform tasks, To improve ability of physical actions for home/community/work/leisur e, To improve gait and locomotor functions, To increase flexibility/ROM, To improve endurance, To improve balance and To improve safety with gait Functional Training to Include: Gait training For the Purpose of:: To improve gait and locomotor functions, To increase flexibility/ROM, To improve endurance, To improve balance and To improve safety with gait Re-Evaluation Ending Re-evaluation ending: Please do not hesitate to contact me at [phone] by phone or if you have questions or concerns regarding this new plan of care! Sincerely, Thao More, MPT 08/03/24 8981 CC: DPM Dr. Rylan Cee; Dr. Ortiz (more content not included)... [facility] -- LARA TAPIA ([id number]) 1945 M Date Time Provider Department [facility]/29[facility]24 12[facility] visit today, we recorded the following information about you: Temperature Pulse Respiration Blood pressure 97 degrees 64/minute 20/minute 138/70 Weight 90.5 kg Harlan Ford, DO 07/29/2024 12:[address] López about Aorta vascular testing? Iliac and leg/PVR BRANDT etc arterial testing? Recheck of carotid artery testing? Need for use of moist heating pad for 20 minutes twice a day on anterior front of shoulder and back of shoulder/neck as well. Then do stretches after this. Start PHYSICAL THERAPY at [facility] for the arm/shoulder and neck pain Harlan Ford, 07/29/2024 1:08 PM Signed Patient presents with: Follow Up HPI: Lara Tapia is a 78 year old male who presents to the office today for review of health conditions. Concerns today: Blood glucoses mostly in the 70s fasting recently. Tolerating medications. Denies any symptoms Peripheral neuropathy, severe, b/l feet. Recently with a fall, tripped over his feet when he was down at this cabin. Fell backwards- no head injuries but knows landed against his right shoulder and right elbow and right hand. Was seen in on 07/23 for this and had xray's of right hand, elbow and shoulder without acute injuries but is very sore in these areas and limited ROM of right shoulder and is getting thumb/1st finger locking with movement. Willing to start PHYSICAL THERAPY if thinks would be beneficial Mr. Tapia has past history of diabetes. Since our last visit he denies excessive thirst or increased frequency of urination, chest pain or dyspnea , new or unusual visual symptoms, and low sugar/hypoglycemic reactions. Depression- no. Follows a diabetic diet some of the time. He is compliant with medication(s) and is tolerating med(s) without any side effects. He reports checking his glucose on a twice a day schedule with sugars in the <120 range. Patient's last HgA1C was Hemoglobin A1C (%) Date Value 06/10/2024 6.4 05/20/2023 7.6 07/28/2021 7.0 05/22/2021 7.0 ) Last Ophthalmology exam was within the past 3 months Mr. Tapia reports history of hyperlipidemia. Current therapy includes simvastatin (Zocor) 20 mg. Denies side effects of muscle weakness or achiness. His most recent lipid panels are reviewed. Cholesterol, Total (mg/dL) Date Value 06/10/2024 174 05/22/2021 188 HDL Cholesterol (mg/dL) Date Value 06/10/2024 39 05/22/2021 40 LDL Cholesterol (mg/dL) Date Value 06/10/2024 98 05/22/2021 101 Triglyceride (mg/dL) Date Value 06/10/2024 187 05/22/2021 233 Mr. Tapia indicates a history of hypertension and states that he is feeling well and denies any symptoms referable to elevated blood pressure. Specifically denies headache, chest pain, palpitations, dyspnea, and peripheral edema. Patient denies any side effects of his medication(s) and is compliant with their regimen. 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 Normal [facility] Prothrombin Time w/INRon INR Coag (PPP) [Relative time] 1.2 {INR} Normal [facility] Comment on above: Performed By: #### L 9200.0000 #### [facility] [address] [place], [address] PT Coag (PPP) [Time] 15.4 s High 11.7-14.9 [facility] Comment on above: Performed By: #### L 9200.0000 #### [facility] [address] [place], [place], [phone] CNOVon 07-23-2024 CNOV Office Visit (UCWSTR ) -- LARA TAPIA ([id number]) 1945 M Date Time Provider Department 07/23/24 3:30 PM [facility]ALPANA POE [email or web address]TR During your visit today, we recorded the following information about you: Temperature Pulse Respiration Blood pressure 97.4 degrees 73/minute 18/minute 171/72 Weight 90.6 kg Kalpana Poe PA-C 07/23/2024 4:32 PM Signed This note was created using [employer]. Subjective Lara Tapia is a 78 year old male. Patient is a 78-year-old male who complains of right shoulder, right elbow and right hand pain that he states has been aggravated after shoveling snow today. Patient denies fall or other direct blow injury today. Patient reports that he sustained a fall injury approximately 2 months ago injuring his right shoulder and elbow. Patient states that he saw a friend who is a chiropractor for evaluation but did not seek or receive any additional medical care. Patient reports that no imaging studies were performed since his injury. Patient reports that he is able to flex and extend his right elbow although it is painful to do so. Patient states that his right hand pain is primarily localized to the base of his right thumb. Patient has no history of fracture or surgery to his right shoulder, elbow and hand. Patient reports that he has not specifically been advised that he has significant arthritis to his right shoulder, elbow and hand. Patient is here today requesting imaging studies of his right shoulder, elbow and hand. Patient is right-hand dominant. Review of the [facility] medical records shows that the patient received a CT scan soft tissue neck on 09 August 2022 for evaluation of a soft tissue mass to his left neck. Radiologist at that time reported no suspicious or concerning soft tissue growth, however the radiologist did describe significant degenerative changes to the cervical spine with moderate to severe foraminal narrowing and canal stenosis at multiple levels. Patient reports that he does not believe he was ever informed of this. Patient at this time clearly denies neck pain or injury. Arm Pain Review of Systems Musculoskeletal: Right Shoulder Pain; Right Elbow Pain; Right Hand Pain All other systems reviewed and are negative. Objective BP 171/72 Pulse 73 Temp 36.3 ?C (97.4 ?F) Resp 18 Wt 90.6 kg (199 lb 11.8 oz) SpO2 97% BMI 30.99 kg/m? Physical Exam Vitals and nursing note reviewed. Constitutional: Appearance: Normal appearance. He is normal weight. HENT: Head: Normocephalic and atraumatic. Nose: Nose normal. Mouth/Throat: Mouth: Mucous membranes are moist. Pharynx: Oropharynx is clear. Eyes: Extraocular Movements: Extraocular movements intact. Conjunctiva/sclera: Conjunctivae normal. Pupils: Pupils are equal, round, and reactive to light. Cardiovascular: Rate and Rhythm: Normal rate. Pulses: Normal pulses. Pulmonary: Effort: Pulmonary effort is normal. Breath sounds: Normal breath sounds. Musculoskeletal: General: Tenderness present. No swelling, deformity or signs of injury. Normal range of motion. Cervical back: Normal range of motion and neck supple. Skin: General: Skin is warm and dry. Capillary Refill: Capillary refill takes less than 2 seconds. Findings: No bruising or erythema. Neurological: General: No focal deficit present. Mental Status: He is alert and oriented to person, place, and time. Cranial Nerves: No cranial nerve deficit. Sensory: No sensory deficit. Motor: No weakness. Coordination: Coordination normal. Psychiatric: Mood and Affect: Mood normal. Behavior: Behavior normal. Thought Content: Thought content normal. Judgment: Judgment normal. Assessment and Plan Physical exam findings as noted above. X-ray right shoulder is negative for acute findings as reported by the radiologist. X-ray right elbow is negative for acute findings as reported by the radiologist. X-ray right hand is negative for acute findings as reported by the radiologist. Radiologist does not describe any moderate or significant degree of osteoarthritis on any of the images. Patient is currently taking ibuprofen, however only at night. Patient was advised to increase his ibuprofen use to 400 mg every 6 hours. Patient was provided with a prescription for lidocaine 5% transdermal patches. Patient was strongly encouraged to schedule an appointment with his primary care physician for further evaluation and management as he will likely require repeat CT scan cervical spine or possibly MRI given his history of multilevel foraminal narrowing and canal stenosis. Patient verbalizes excellent understanding of all of the above instructions. CLINICAL IMPRESSION: Cervical Radiculopathy; Right Shoulder Pain; Right Elbow Pain; Right Hand Pain ASSESSMENT/PLAN: 1. Chronic right shoulder pain - ICD9: 719.41, 338.29, ICD1 (more content not included)... Normal [facility] No Panel Informationon 07-23 Radiology Study observation (narrative) [facility] XR ELBOW 3V AP/LAT/OTHER RTo n 07-23-2024 XR ELBOW 3V AP/LAT/OTHER RT * * *Final Report* * * DATE OF EXAM: Jul 23 2024 3:51PM WOX [id number] - XR ELBOW 3V AP/LAT/OTHER RT / PROCEDURE REASON: Right elbow pain * * * * Physician Interpretation * * * * EXAMINATION: XR ELBOW 3V AP/LAT/OTHER RT CLINICAL HISTORY: Right elbow pain. History of fall. Technique: XR ELBOW 3V AP/LAT/OTHER RT -- RIGHT with 3 views on 3 images Comparison: None RESULT: No acute fracture or dislocation. Joint spaces are maintained. IMPRESSION: No acute osseous abnormality Voip Network Engineer: [facility] Transcribe Date/Time: Jul 23 2024 3:52P Dictated by : ISAAK DAVALOS MD This examination was interpreted and the report reviewed and electronically signed by: ISAAK DAVALOS MD on Jul 23 2024 3:54PM EST [id number] Normal [facility] XR Elbow - right AP and Late ral and obliqueon 07-23-2024 IMPRESSION: No acute osseous abnormality Voip Network Engineer: [facility] Transcribe Date/Time: Jul 23 2024 3:52P Dictated by : ISAAK DAVALOS MD This examination was interpreted and the report reviewed and electronically signed by: ISAAK DAVALOS MD on Jul 23 2024 3:54PM EST DIVISION OF RADIOLOGY * * *Final Report* * * DATE OF EXAM: Jul 23 2024 3:51PM WOX [id number] - XR ELBOW 3V AP/LAT/OTHER RT / PROCEDURE REASON: Right elbow pain * * * * Physician Interpretation * * * * EXAMINATION: XR ELBOW 3V AP/LAT/OTHER RT CLINICAL HISTORY: Right elbow pain. History of fall. Technique: XR ELBOW 3V AP/LAT/OTHER RT -- RIGHT with 3 views on 3 images Comparison: None RESULT: No acute fracture or dislocation. Joint spaces are maintained. DIVISION OF RADIOLOGY Provider, [facility] - 07/23/2024 * * *Final Report* * * DATE OF EXAM: Jul 23 2024 3:51PM WOX 5325 - XR ELBOW 3V AP/LAT/OTHER RT / PROCEDURE REASON: Right elbow pain * * * * Physician Interpretation * * * * EXAMINATION: XR ELBOW 3V AP/LAT/OTHER RT CLINICAL HISTORY: Right elbow pain. History of fall. Technique: XR ELBOW 3V AP/LAT/OTHER RT -- RIGHT with 3 views on 3 images Comparison: None RESULT: No acute fracture or dislocation. Joint spaces are maintained. IMPRESSION IMPRESSION: No acute osseous abnormality Voip Network Engineer: [facility] Transcribe Date/Time: Jul 23 2024 3:52P Dictated by : ISAAK DAVALOS MD This examination was interpreted and the report reviewed and electronically signed by: ISAAK DAVALOS MD on Jul 23 2024 3:54PM EST [facility] XR HAND 3V PA/LAT/OBL RTon 0 07-23-2024 XR HAND 3V PA/LAT/OBL RT * * *Final Report* * * DATE OF EXAM: Jul 23 2024 3:51PM WOX 5346 - XR HAND 3V PA/LAT/OBL RT / PROCEDURE REASON: Right hand pain * * * * Physician Interpretation * * * * EXAMINATION: XR HAND 3V PA/LAT/OBL RT CLINICAL HISTORY: Right hand pain Technique: XR HAND 3V PA/LAT/OBL RT -- RIGHT with 3 views on 3 images Comparison: None RESULT: No acute fracture or dislocation. Triscaphe joint space narrowing with subchondral sclerosis. Marginal osteophytes at multiple interphalangeal joints. IMPRESSION: No acute osseous abnormality Voip Network Engineer: [facility] Transcribe Date/Time: Jul 23 2024 3:54P Dictated by : ISAAK DAVALOS MD This examination was interpreted and the report reviewed and electronically signed by: ISAAK DAVALOS MD on Jul 23 2024 3:57PM EST [id number] Normal [facility] XR Hand - right PA and Later al and Obliqueon 07-23-2024 IMPRESSION: No acute osseous abnormality Voip Network Engineer: [facility] Transcribe Date/Time: Jul 23 2024 3:54P Dictated by : ISAAK DAVALOS MD This examination was interpreted and the report reviewed and electronically signed by: ISAAK DAVALOS MD on Jul 23 2024 3:57PM EST DIVISION OF RADIOLOGY * * *Final Report* * * DATE OF EXAM: Jul 23 2024 3:51PM WOX 5346 - XR HAND 3V PA/LAT/OBL RT / PROCEDURE REASON: Right hand pain * * * * Physician Interpretation * * * * EXAMINATION: XR HAND 3V PA/LAT/OBL RT CLINICAL HISTORY: Right hand pain Technique: XR HAND 3V PA/LAT/OBL RT -- RIGHT with 3 views on 3 images Comparison: None RESULT: No acute fracture or dislocation. Triscaphe joint space narrowing with subchondral sclerosis. Marginal osteophytes at multiple interphalangeal joints. DIVISION OF RADIOLOGY Provider, [facility] - 07/23/2024 * * *Final Report* * * DATE OF EXAM: Jul 23 2024 3:51PM WOX 5346 - XR HAND 3V PA/LAT/OBL RT / PROCEDURE REASON: Right hand pain * * * * Physician Interpretation * * * * EXAMINATION: XR HAND 3V PA/LAT/OBL RT CLINICAL HISTORY: Right hand pain Technique: XR HAND 3V PA/LAT/OBL RT -- RIGHT with 3 views on 3 images Comparison: None RESULT: No acute fracture or dislocation. Triscaphe joint space narrowing with subchondral sclerosis. Marginal osteophytes at multiple interphalangeal joints. IMPRESSION IMPRESSION: No acute osseous abnormality Voip Network Engineer: [facility] Transcribe Date/Time: Jul 23 2024 3:54P Dictated by : ISAAK DAVALOS MD This examination was interpreted and the report reviewed and electronically signed by: ISAAK DAVALOS MD on Jul 23 2024 3:57PM [facility] XR SHOULDER 2V AP/TRUE AP RT on 07-23-2024 XR SHOULDER 2V AP/TRUE AP RT * * *Final Report* * * DATE OF EXAM: Jul 23 2024 3:51PM WOX 5255 - XR SHOULDER 2V AP/TRUE AP RT / PROCEDURE REASON: multiple diagnoses * * * * Physician Interpretation * * * * EXAMINATION: XR SHOULDER 2V AP/TRUE AP RT CLINICAL HISTORY: Right shoulder pain Technique: XR SHOULDER 2V AP/TRUE AP RT -- RIGHT with 3 views on 3 images Comparison: None RESULT: No acute fracture or dislocation. Mild acromioclavicular joint space narrowing. IMPRESSION: No acute osseous abnormality Voip Network Engineer: [facility] Transcribe Date/Time: Jul 23 2024 3:51P Dictated by : ISAAK DAVALOS MD This examination was interpreted and the report reviewed and electronically signed by: ISAAK DAVALOS MD on Jul 23 2024 3:52PM EST [id number] Normal [facility] XR Shoulder - right 2 Viewso n 07-23-2024 IMPRESSION: No acute osseous abnormality Voip Network Engineer: [facility] Transcribe Date/Time: Jul 23 2024 3:51P Dictated by : ISAAK DAVALOS MD This examination was interpreted and the report reviewed and electronically signed by: ISAAK DAVALOS MD on Jul 23 2024 3:52PM EST DIVISION OF RADIOLOGY * * *Final Report* * * DATE OF EXAM: Jul 23 2024 3:51PM WOX [id number] - XR SHOULDER 2V AP/TRUE AP RT / PROCEDURE REASON: multiple diagnoses * * * * Physician Interpretation * * * * EXAMINATION: XR SHOULDER 2V AP/TRUE AP RT CLINICAL HISTORY: Right shoulder pain Technique: XR SHOULDER 2V AP/TRUE AP RT -- RIGHT with 3 views on 3 images Comparison: None RESULT: No acute fracture or dislocation. Mild acromioclavicular joint space narrowing. DIVISION OF RADIOLOGY Provider, [facility] - 07/23/2024 * * *Final Report* * * DATE OF EXAM: Jul 23 2024 3:51PM WOX [id number] - XR SHOULDER 2V AP/TRUE AP RT / PROCEDURE REASON: multiple diagnoses * * * * Physician Interpretation * * * * EXAMINATION: XR SHOULDER 2V AP/TRUE AP RT CLINICAL HISTORY: Right shoulder pain Technique: XR SHOULDER 2V AP/TRUE AP RT -- RIGHT with 3 views on 3 images Comparison: None RESULT: No acute fracture or dislocation. Mild acromioclavicular joint space narrowing. IMPRESSION IMPRESSION: No acute osseous abnormality Voip Network Engineer: [facility] Transcribe Date/Time: Jul 23 2024 3:51P Dictated by : ISAAK DAVALOS MD This examination was interpreted and the report reviewed and electronically signed by: ISAAK DAVALOS MD on Jul 23 2024 3:52PM EST [facility] XR Shoulder - right 2 ViewsO rdered By: Cc Provider on 07-23-2024 [facility] Inital Evaluation (1) - PTon 07-13-2024 Inital Evaluation (1) - PT [facility] [address] [place] [address]. [address] [place] [address] / REHABILITATION SERVICES INITIAL EVALUATION MR#: [id number] Acct: [id number] Name: LARA TAPIA Rep #: [id number] : 1945 78 From: Thao ESTRADA Referring Dr.: Dr. Rylan Cee DPM Status: REG RCR Insurance: MEDICARE PART A B [employer] Patient's Visit Information Visit Information Visit Information: LARA TAPIA is a 78 year old M referred to Physical Therapy by Dr. Rylan Cee DPM with a diagnosis of Neuropathy. Date of Evaluation: 07/13/24 Physical Therapist: NATALIE England Visit Plan Frequency: 2x /Week Duration: 2 Months Plan: Use a gait belt at all times. Encouraged pt to use a cane. 2X/ week for 8 weeks for LE strength, ankle strength, gait training, balance training, functional balance with HEP Subjective Subjective: Pt reports that he is not sure why he is here. He just got a call from our desk interviewer to come in for PT for balance and neuropathy. He reports that he has been having balance issues. He can not feel things in his feet and he was standing on his foot and went to turn and he flipped backwards and hurt his R shoulder and his thumb. He is going to his chiropractor this afternoon. He has only fallen that one time. Now he is nervous about falling. He is still doing the bike in the gym. He does not feel that his legs are weak. He only has one eye. He has a cane in his car. Pain R shoulder pain: Pain Intensity (Out of 10): 6 B feet N T: Pain Intensity (Out of 10): 6 Objective Objective: Gait: Walks with decreased stance time on the L LE and some increase veering. Decrease DF with gait. Tight B calves Standing heel and toe raises: drastically decreased ROM both FGA: 7 CATSIB: 82/120 LE MMT: R hip flex 16 and L 15.1 R knee ext 24.2 and L 25 R knee flex 8.5 and L 10.7 R DF 4.1 and L 7.4 Encouraged pt to use a cane or rollator at all times due to severity of balance impairment Balance/Special Test Scores Functional Gait Assessment Score: 7 % Disability: 76.6700 CATSIB Score (Max score 120 seconds): 82 Lower Extremity Functional Score: 48 Goals Goal 1:: I HEP Goal Time Frame: 6-8 Weeks Goal 2:: Be able to increase muscle length of B calves Goal Time Frame: 6-8 Weeks Goal 3:: Increase balance (FGA was 7 at eval) Goal Time Frame: 6-8 Weeks Goal 4:: Increase balance (CATSIB was 82 at eval) Goal Time Frame: 6-8 Weeks Goal 5:: Increase LE strength (at time of the eval: LE MMT: R hip flex 16 and L 15.1 R knee ext 24.2 and L 25 R knee flex 8.5 and L 10.7 R DF 4.1 and L 7.4 Hip abd B 4-/5 Sit to stand: able to get up without use of her arms) Goal Time Frame: 6-8 Weeks Rehabilitation Potential Rehabilitation Potential: Good Anticipated Interventions Patient/Client Instruction: Educate patient on: Condition and Plan of Care For the Purpose of:: To increase ROM, To improve nutrient delivery to tissue, To improve muscle performance and motor function, To improve ability to perform ADL's, To increase tolerance to ac tivity/condition/position, To improve performance and independence with ADL's, To decrease level of supervision to perform tasks, To improve ability of physical actions for home/community/work/leisur e, To improve gait and locomotor functions, To improve health of tissue, To decrease soft tissue restriction, To increase flexibility/ROM, To improve balance and To improve safety with gait Therapeutic Exercise to Include: Strength training, Endurance training, Balance training, Body mechanics, Postural training, Flexibilty training, Gait and locomotor training, Neuromotor d evelopment, Passive ROM and Active ROM For the Purpose of:: To decrease pain, To increase ROM, To improve nutrient delivery to tissue, To improve muscle performance and motor function, To improve ability to perform ADL's, To increase tolerance to activity/condition/positio n, To improve performance and independence with ADL's, To decrease level of supervision to perform tasks, To improve ability of physical actions for home/community/work/leisur e, To improve gait and locomotor functions, To increase flexibility/ROM, To improve endurance, To improve balance and To improve safety with gait Functional Training to Include: Gait training For the Purpose of:: To improve gait and locomotor functions, To increase flexibility/ROM, To improve endurance, To improve balance and To improve safety with gait Text: Thank you for the opportunity to evaluate your patient. For Medicare and Medicare HMO plans, please review the plan of care and approve it. It will need to be FAXED BACK to us at [phone] for Medicare purposes. For Medicare only, by signing this I certify the plan of care. Please let me know if there are questions or (more content not included)... Normal [facility] normalized rat io (INR) calculationOrdered By: Torri Mendoza on 06-29-2024 INR Coag (Bld) [Relative time] 2.5 {INR} [facility] Prothrombin Time w/INRon INR Coag (PPP) [Relative time] 2.5 {INR} Normal [facility] Comment on above: Performed By: #### L 300.3900 ####[facility] [id number] [place], [place], [phone] PT Coag (PPP) [Time] 26.5 s High 11.7-14.9 [facility] Comment on above: Performed By: #### L 300.3900 ####[facility] [address] [place], [place], [phone] Prothrombin timeOrdered By: Torri Mendoza on 06-29-2024 PT Coag (PPP) [Time] 26.5 s High 11.7-14.9 [facility] CNOVon 06-15-2024 CNOV Office Visit (FAMPWS ) -- LARA TAPIA ([id number]) 1945 M Date Time Provider Department 06/15/24 9:20 AM LOGANHARLAN Waldo AYALAPWS During your visit today, we recorded the following information about you: Temperature Pulse Respiration Blood pressure 97.1 degrees 68/minute 20/minute 122/60 Weight 90.3 kg FordHarlan quinteros, DO 06/15/2024 9:44 AM Signed Epsom salt soaks for hands- 1/2 cup of epsom salts Voltaren and the biofreeze can be mixed together and rubbed on a painful joint. Thumb spica splint on hand as needed for thumb pain FordHarlan quinterosDO 06/15/2024 10:11 AM Signed Patient presents with: F/U 3 Month HPI: Lara Tapia is a 78 year old male who presents to the office today for review of health conditions. Concerns today: Overall he is feeling well Blood glucoses mostly in the 70s fasting recently. Tolerating medications. Denies any symptoms Peripheral neuropathy, severe, b/l feet. Mr. Tapia has past history of diabetes. Since our [...] HgA1C was Hemoglobin A1C (%) Date Value 06/10/2024 6.4 05/20/2023 7.6 07/28/2021 7.0 05/22/2021 7.0 ) Last Ophthalmology exam was within the past 3 months Mr. Tapia reports history of hyperlipidemia. Current therapy includes simvastatin (Zocor) 20 mg. Denies side effects of muscle weakness or achiness. His most recent lipid panels are reviewed. Cholesterol, Total (mg/dL) Date Value 06/10/2024 174 05/22/2021 188 HDL Cholesterol (mg/dL) Date Value 06/10/2024 39 05/22/2021 40 LDL Cholesterol (mg/dL) Date Value 06/10/2024 98 05/22/2021 101 Triglyceride (mg/dL) Date Value 06/10/2024 187 05/22/2021 233 Mr. Tapia indicates a history of hypertension and states that he is feeling well and denies any symptoms referable to elevated blood pressure. Specifically denies headache, chest pain, palpitations, dyspnea, and peripheral edema. Patient denies any side effects of his medication(s) and is compliant with their regimen. Last 3 Encounter BP Readings: Date: BP: 06/15/2024 122/60 03/11/2024 132/76 03/03/2024 100/60 He watches his diet for sodium, low [...] - PAST MEDICAL HISTORY OF neuropathy PRURIGO NODULARIS///LICHENIFICATIO N 12/20/2008 Recurrent UTI 01/2023 didn't respond to [...] Never Smokeless tobacco: Never Vaping Use Vaping status: Never Used Substance Use Topics Alcohol use: Yes Comment: beer Drug use: No FAMILY HISTORY Problem Relation Age of Onset Breast Cancer Mother Heart Father chf Breast Cancer Sister Allergies: ALLERGIES Allergen Reactions Lyrica [Pregabalin] Other: See Comments Cough Current Meds: simvastatin (ZOCOR) 20 mg tablet Take 1 tablet by mouth once daily. gabapentin (NEURONTIN) 300 mg capsule TAKE 3 CAPSULES BY MOUTH 3 TIMES A DAY glimepiride (AMARYL) 4 mg tablet Take 1 tablet by mouth two times a day with meals. meloxicam (MOBIC) 7.5 mg tablet TAKE 1 TABLET BY MOUTH ONCE DAILY. NEEDED FOR FOOT PAIN, WITH FOOD. Blood-Glucose Meter monitoring kit Glucose Meter of Choice - Kit - D (more content not included)... Normal [facility] CBC W Auto Differential pane l (Bld)on 06-10-2024 Basophils (Bld) [#/Vol] [facility] Basophils/100 WBC (Bld) 0.4 % [facility] Differential cell count method Nom (Bld) Auto [facility] Eosinophils (Bld) [#/Vol] 0.04 10*3/uL [facility] Eosinophils/100 WBC (Bld) 1.5 % [facility] Erythrocyte distribution width (RBC) [Ratio] 13.2 % 11.5 - 15.0 % [facility] Hematocrit (Bld) [Volume fraction] 40.2 % 39.0 - 51.0 % [facility] Hemoglobin (Bld) [Mass/Vol] 13.1 g/dL 13.0 - 17.0 g/dL [facility] Immature granulocytes (Bld) [#/Vol] [facility] Immature granulocytes/100 WBC (Bld) 0.4 % [facility] Interpretation and review of laboratory results Abnormal [facility] Lymphocytes (Bld) [#/Vol] 0.48 10*3/uL Low [facility] Lymphocytes/100 WBC (Bld) 18.0 % [facility] MCH (RBC) [Entitic mass] 31.7 pg 26.0 - 34.0 pg [facility] MCHC (RBC) [Mass/Vol] 32.6 g/dL 30.5 - 36.0 g/dL [facility] MCV (RBC) [Entitic vol] 97.3 fL 80.0 - 100.0 fL [facility] Monocytes (Bld) [#/Vol] 0.28 10*3/uL [facility] Monocytes/100 WBC (Bld) 10.5 % [facility] Neutrophils (Bld) [#/Vol] 1.85 10*3/uL [facility] Neutrophils/100 WBC (Bld) 69.2 % [facility] Nucleated RBC (Bld) [#/Vol] NINF [facility] Nucleated RBC/100 WBC (Bld) [Ratio] 0.0 % /100 WBC [facility] Platelet mean volume (Bld) [Entitic vol] 9.6 fL 9.0 - 12.7 fL [facility] Platelets (Bld) [#/Vol] 63 10*3/uL Low [facility] Comment on above: No clot detected. RBC (Bld) [#/Vol] 4.13 10*6/uL Low 4.20 - 6.00 m/uL [facility] WBC (Bld) [#/Vol] 2.67 10*3/uL Low [facility] Basophils (Bld) [#/Vol] 10*3/uL Normal <0.11 [facility] Comment on above: Order Comment: Speci men Type: BLOOD SPECIMENOrdering Facility: [facility] Address: [address] [place] [address] Performed By: #### 5 7021-8 ####[facility] LABCLIA [id number] [place] [address] [place] Basophils/100 WBC (Bld) 0.4 % Normal [facility] Comment on above: Order Comment: Speci men Type: BLOOD SPECIMENOrdering Facility: [facility] Address: [address] [place] [address] Performed By: #### 5 7021-8 ####[facility] LABCLIA [id number] [place] [address] [place] Differential cell count method Nom (Bld) Auto Normal [facility] Comment on above: Order Comment: Speci men Type: BLOOD SPECIMENOrdering Facility: [facility] Address: [address] [place] [address] Performed By: #### 5 7021-8 ####[facility] LABCLIA [id number] [place] [address] [place] Eosinophils (Bld) [#/Vol] 0.04 10*3/uL Normal <0.46 [facility] Comment on above: Order Comment: Speci men Type: BLOOD SPECIMENOrdering Facility: [facility] Address: [address] [place] [address] Performed By: #### 5 7021-8 ####[facility] LABCLIA [id number] [place] [address] [place] Eosinophils/100 WBC (Bld) 1.5 % Normal [facility] Comment on above: Order Comment: Speci men Type: BLOOD SPECIMENOrdering Facility: [facility] Address: [address] [place] [address] Performed By: #### 5 7021-8 ####[facility] LABIA [id number] [place] [address] [place] Erythrocyte distribution width (RBC) [Ratio] 13.2 % Normal 11.5-15.0 [facility] Comment on above: Order Comment: Speci men Type: BLOOD SPECIMENOrdering Facility: [facility] Address: [address] [place] [address] Performed By: #### 5 7021-8 ####[facility] LABIA [id number] [place] [address] [place] Hematocrit (Bld) [Volume fraction] 40.2 % Normal 39.0-51.0 [facility] Comment on above: Order Comment: Speci men Type: BLOOD SPECIMENOrdering Facility: [facility] Address: [address] [place] [address] Performed By: #### 5 7021-8 ####[facility] LABIA [id number] [place] [address] [place] Hemoglobin (Bld) [Mass/Vol] 13.1 g/dL Normal 13.0-17.0 [facility] Comment on above: Order Comment: Speci men Type: BLOOD SPECIMENOrdering Facility: [facility] Address: [address] [place] [address] Performed By: #### 5 7021-8 ####[facility] LABCLIA [id number] [place] [address] [place] Immature granulocytes (Bld) [#/Vol] 10*3/uL Normal <0.10 [facility] Comment on above: Order Comment: Speci men Type: BLOOD SPECIMENOrdering Facility: [facility] Address: [address] [place] [address] Performed By: #### 5 7021-8 ####[facility] LABCLIA [id number] [place] [address] [place] Immature granulocytes/100 WBC (Bld) 0.4 % Normal [facility] Comment on above: Order Comment: Speci men Type: BLOOD SPECIMENOrdering Facility: [facility] Address: [address] [place] [address] Performed By: #### 5 7021-8 ####[facility] LABCLIA [id number] [place] [address] [place] Lymphocytes (Bld) [#/Vol] 0.48 10*3/uL Low 1.00-4.00 [facility] Comment on above: Order Comment: Speci men Type: BLOOD SPECIMENOrdering Facility: [facility] Address: [address] [place] [address] Performed By: #### 5 7021-8 ####[facility] LABCLIA [id number] [place] [address] [place] Lymphocytes/100 WBC (Bld) 18.0 % Normal [facility] Comment on above: Order Comment: Speci men Type: BLOOD SPECIMENOrdering Facility: [facility] Address: [address] [place] [address] Performed By: #### 5 7021-8 ####[facility] LABCLIA [id number] [place] [address] [place] MCH (RBC) [Entitic mass] 31.7 pg Normal 26.0-34.0 [facility] Comment on above: Order Comment: Speci men Type: BLOOD SPECIMENOrdering Facility: [facility] Address: [address] [place] [address] Performed By: #### 5 7021-8 ####[facility] LABCLIA [id number] [place] [address] [place] MCHC (RBC) [Mass/Vol] 32.6 g/dL Normal 30.5-36.0 [facility] Comment on above: Order Comment: Speci men Type: BLOOD SPECIMENOrdering Facility: [facility] Address: [address] [place] [address] Performed By: #### 5 7021-8 ####[facility] LABCLIA [id number] [place] [address] [place] MCV (RBC) [Entitic vol] 97.3 fL Normal 80.0-100.0 [facility] Comment on above: Order Comment: Speci men Type: BLOOD SPECIMENOrdering Facility: [facility] Address: [address] [place] [address] Performed By: #### 5 7021-8 ####[facility] LABIA [id number] [place] [address] [place] Monocytes (Bld) [#/Vol] 0.28 10*3/uL Normal <0.87 [facility] Comment on above: Order Comment: Speci men Type: BLOOD SPECIMENOrdering Facility: [facility] Address: [address] [place] [address] Performed By: #### 5 7021-8 ####[facility] LABIA [id number] [place] [address] [place] Monocytes/100 WBC (Bld) 10.5 % Normal [facility] Comment on above: Order Comment: Speci men Type: BLOOD SPECIMENOrdering Facility: [facility] Address: [address] [place] [address] Performed By: #### 5 7021-8 ####[facility] LABCLIA [id number] [place] [address] [place] Neutrophils (Bld) [#/Vol] 1.85 10*3/uL Normal 1.45-7.50 [facility] Comment on above: Order Comment: Speci men Type: BLOOD SPECIMENOrdering Facility: [facility] Address: [address] [place] [address] Performed By: #### 5 7021-8 ####[facility] LABCLIA [id number] [place] [address] [place] Neutrophils/100 WBC (Bld) 69.2 % Normal [facility] Comment on above: Order Comment: Speci men Type: BLOOD SPECIMENOrdering Facility: [facility] Address: [address] [place] [address] Performed By: #### 5 7021-8 ####[facility] LABCLIA [id number] [place] [address] [place] Nucleated RBC (Bld) [#/Vol] 10*3/uL Normal <0.01 [facility] Comment on above: Order Comment: Speci men Type: BLOOD SPECIMENOrdering Facility: [facility] Address: [address] [place] [address] Performed By: #### 5 7021-8 ####[facility] LABCLIA [id number] [place] [address] [place] Nucleated RBC/100 WBC (Bld) [Ratio] 0.0 /100 WBC Normal [facility] Comment on above: Order Comment: Speci men Type: BLOOD SPECIMENOrdering Facility: [facility] Address: [address] [place] [address] Performed By: #### 5 7021-8 ####[facility] LABCLIA [id number] [address] [place] [address] [place] Platelet mean volume (Bld) [Entitic vol] 9.6 fL Normal 9.0-12.7 [facility] Comment on above: Order Comment: Speci men Type: BLOOD SPECIMENOrdering Facility: [facility] Address: [address] [place] [address] Performed By: #### 5 7021-8 ####[facility] LABCLIA [id number] [place] [address] [place] Platelets (Bld) [#/Vol] 63 10*3/uL Low 150-400 [facility] Comment on above: Order Comment: Speci men Type: BLOOD SPECIMENOrdering Facility: [facility] Address: [address] [place] [address] Result Comment: No c lot detected. Performed By: #### 5 7021-8 ####[facility] LABIA [id number] [place] [address] [place] RBC (Bld) [#/Vol] 4.13 10*6/uL Low 4.20-6.00 [facility] Comment on above: Order Comment: Speci men Type: BLOOD SPECIMENOrdering Facility: [facility] Address: [address] [place] [address] Performed By: #### 5 7021-8 ####[facility] LABIA [id number] [place] [address] [place] WBC (Bld) [#/Vol] 2.67 10*3/uL Low 3.70-11.00 [facility] Comment on above: Order Comment: Speci men Type: BLOOD SPECIMENOrdering Facility: [facility] Address: [address] [place] [address] Performed By: #### 5 7021-8 ####[facility] LABCLIA [id number] [place] [address] [place] CNPLizbeth 06-10-2024 CNPN Telephone ([facility]) -- LARA TAPIA ([id number]) 1945 M Date Time Provider Department 06/10/24 HARLAN FORD During your visit today, we recorded the following information about you: Mandy Monroy LPN 06/10/2024 9:08 AM Signed Pt. here for lab work needs orders filed. Ida Gan APRN.SALES SUPPORT COORDINATOR 06/10/2024 9:12 AM Signed Orders placed. Thank you, Ida Gan APRN.SALES SUPPORT COORDINATOR Allergies As of Date: 06/10/2024 Noted Allergy Reaction LYRICA (PREGABALIN) 12/25/2010 14 - Other: See Comments Comments: Cough Date Reviewed: 03/11/2024 Reviewed by: Zehra Hampton LPN - Fully Assessed Primary Visit Diagnosis:Primary hypertension [I10] Other Visit Diagnoses:Mixed hyperlipidemia [E78.2] Type 2 diabetes mellitus with diabetic polyneuropathy, without long-term current use of insulin (HCC) [E11.42] Order(s):HEMOGLOBIN A1C [JVIUE4C] Order #: [id number] FUTURE COMPREHENSIVE METABOLIC PANEL [SQCMP] Order #: [id number] FUTURE COMPLETE BLOOD COUNT AND DIFFERENTIAL [SQCBCDIF] Order #: [id number] FUTURE LIPID PANEL BASIC [SQLIPB] Order #: [id number] FUTURE Prescriptions as of 07/14/2024 - simvastatin (ZOCOR) 20 mg tablet Take 1 tablet by mouth once daily. - gabapentin (NEURONTIN) 300 mg capsule TAKE 3 CAPSULES BY MOUTH 3 TIMES A DAY - glimepiride (AMARYL) 4 mg tablet Take 1 tablet by mouth two times a day with meals. - meloxicam (MOBIC) 7.5 mg tablet TAKE 1 TABLET BY MOUTH ONCE DAILY. NEEDED FOR FOOT PAIN, WITH FOOD. - Blood-Glucose Meter monitoring kit Glucose Meter of Choice - Kit - Dx: Other DM Code E11.42 Insulin No - metFORMIN ER (GLUCOPHAGE XR) 750 mg 24 hr tablet Take 1 tablet by mouth two times a day with meals. - lamoTRIgine (LAMICTAL) 25 mg tablet Take 1 tablet by mouth once daily. 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 - mupirocin (BACTROBAN) 2 % ointment Apply to affected area every 12 hours as needed (skin wound or infection). - losartan (COZAAR) 50 mg tablet Take 1 tablet by mouth once daily. - warfarin (COUMADIN) 4 mg tablet Take 4 mg by mouth daily as directed. 4 mg Sat, Sun, Mon, 8 mg all other days - blood sugar diagnostic ([facility] MedicalTOUCH ULTRA TEST) test strip Test blood sugars once daily. DX: E11.42 Insulin: No - clopidogrel (PLAVIX) 75 mg tablet Take 75 mg by mouth once daily. - cholecalciferol, vitamin D3, (VITAMIN D3 ORAL) Take 1 tablet by mouth once daily. - POTASSIUM-99 ORAL Take 1 tablet by mouth once daily. - Magnesium 200 mg tab Take 500 mg by mouth once daily. - aspirin 81 mg chewable tablet Take 1 tablet by mouth once daily. - blood sugar diagnostic (BLOOD GLUCOSE TEST) test strip Test blood sugar(s) 1 times daily. Dx: Other DM Code E11.42 Insulin: No. Patient uses One Touch Verio - cyanocobalamin (VITAMIN B-12) 1,000 mcg tab Take 1,000 mcg by mouth once daily. - COMPOUNDED PRESCRIPTION Diabetic shoes Dx: E11.65, DM2 Last office visit 05/20/18. - ketoconazole (NIZORAL) 2 % shampoo Apply 1 application to affected area once daily as needed for Itching/Rash (scalp itching). - metroNIDAZOLE 0.75 % cream APPLY TO [...] eyes, eyelids, and deep fold areas. - Osswfqlkkfy-Njopdjvuf-Qgf C-Mn (GLUCOSAMINE CHONDROITIN MAXSTR) 500-400 mg ORAL Cap Take one(1) tablet daily. - Aspirin 81 mg ORAL Tab Take one(1) tablet daily. 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 Normal [facility] Comprehensive metabolic 2000 panelon 06-10-2024 Albumin [Mass/Vol] 4.4 g/dL 3.9 - 4.9 g/dL [facility] ALP [Catalytic activity/Vol] 61 U/L 38 - 113 U/L [facility] ALT [Catalytic activity/Vol] 30 U/L 10 - 54 U/L [facility] Anion gap [Moles/Vol] 11 mmol/L 8 - 15 mmol/L [facility] AST [Catalytic activity/Vol] 34 U/L 14 - 40 U/L [facility] Bilirubin [Mass/Vol] 1.2 mg/dL 0.2 - 1 .3 mg/dL [facility] Calcium [Mass/Vol] 9.7 mg/dL 8.5 - 10. 2 mg/dL [facility] Chloride [Moles/Vol] 103 mmol/L 98 - 10 7 mmol/L [facility] CO2 [Moles/Vol] 28 mmol/L 22 - 30 mmol/L [facility] Creatinine [Mass/Vol] 0.89 mg/dL 0.73 - 1.22 mg/dL [facility] GFR/1.73 sq M.predicted among non-blacks MDRD (S/P/Bld) [Vol rate/Area] 88 mL/min/{1.73_m2} - PINF [facility] Comment on above: Estimated Glomerular Filtration Rate (eGFR) is calculated using the 2020 CKD-EPI creatinine equation. This equation utilizes serum creatinine, sex, and age as parameters. The creatinine assay has traceable calibration to isotope dilution-mass spectrometry. Refer to KDIGO guidelines for clinical interpretation. In patients with unstable renal function, e.g. those with acute kidney injury, the eGFR may not accurately reflect actual GFR. Glucose [Mass/Vol] 74 mg/dL 74 - 99 mg/dL [facility] Comment on above: The [place] Diabete s Association (ADA) provides guidance for cutoff values for fasting glucose and random glucose. The ADA defines fasting as no caloric intake for at least 8 hours. Fasting plasma glucose results between 100 to 125 mg/dL indicate increased risk for diabetes (prediabetes). Fasting plasma glucose results greater than or equal to 126 mg/dL meet the criteria for diagnosis of diabetes. In the absence of unequivocal hyperglycemia, results should be confirmed by repeat testing. In a patient with classic symptoms of hyperglycemia or hyperglycemic crisis, random plasma glucose results greater than or equal to 200 mg/dL meet the criteria for diagnosis of diabetes. Reference: Standards of Medical Care in Diabetes 2016, [place] Diabetes Association. Diabetes Care. 2016.39(Suppl 1). Interpretation and review of laboratory results Normal [facility] Potassium [Moles/Vol] 4.3 mmol/L 3.7 - 5.1 mmol/L [facility] Protein [Mass/Vol] 6.8 g/dL 6.3 - 8.0 g/dL [facility] Sodium [Moles/Vol] 142 mmol/L 136 - 144 mmol/L [facility] Urea nitrogen [Mass/Vol] 14 mg/dL 9 - 24 mg/dL [facility] Albumin [Mass/Vol] 4.4 g/dL Normal 3.9-4.9 [facility] Comment on above: Order Comment: Speci men Type: BLOOD SPECIMENOrdering Facility: [facility] Address: [address] [place] [address] Performed By: #### 2 4323-8, 68535-9 ####[facility] LABCLIA [id number] [place] [address] [place] ALP [Catalytic activity/Vol] 61 U/L Normal 38-113 [facility] Comment on above: Order Comment: Speci men Type: BLOOD SPECIMENOrdering Facility: [facility] Address: [address] [place] [address] Performed By: #### 2 4323-8, 53515-9 ####[facility] LABCLIA [id number] [place] [address] [place] ALT [Catalytic activity/Vol] 30 U/L Normal 10-54 [facility] Comment on above: Order Comment: Speci men Type: BLOOD SPECIMENOrdering Facility: [facility] Address: [address] [place] [address] Performed By: #### 2 4323-8, 37870-6 ####[facility] LABCLIA [id number] [place] [address] [place] Anion gap [Moles/Vol] 11 mmol/L Normal 8-15 [facility] Comment on above: Order Comment: Speci men Type: BLOOD SPECIMENOrdering Facility: [facility] Address: [address] [place] [address] Performed By: #### 2 4323-8, 89553-2 ####[facility] LABCLIA [id number] [place] [address] [place] AST [Catalytic activity/Vol] 34 U/L Normal 14-40 [facility] Comment on above: Order Comment: Speci men Type: BLOOD SPECIMENOrdering Facility: [facility] Address: [address] [id number] Performed By: #### 2 4323-8, 81926-3 ####[facility] LABCLIA [id number] [address] [address] [place] Bilirubin [Mass/Vol] 1.2 mg/dL Normal 0.2-1.3 [facility] Comment on above: Order Comment: Speci men Type: BLOOD SPECIMENOrdering Facility: [facility] Address: [address] [place], [place] [address] Performed By: #### 2 4323-8, 30583-1 ####[facility] LABCLIA [id number] [place] [address] [place] Calcium [Mass/Vol] 9.7 mg/dL Normal 8.5-10.2 [facility] Comment on above: Order Comment: Speci men Type: BLOOD SPECIMENOrdering Facility: [facility] Address: [address] [place], [place] [address] Performed By: #### 2 4323-8, 45255-1 ####[facility] LABCLIA [id number] [place] [address] [place] Chloride [Moles/Vol] 103 mmol/L Normal 98-107 [facility] Comment on above: Order Comment: Speci men Type: BLOOD SPECIMENOrdering Facility: [facility] Address: [address] [id number] Performed By: #### 2 4323-8, 36410-0 ####[facility] LABCLIA [id number] [place] [id number] [place] CO2 [Moles/Vol] 28 mmol/L Normal 22-30 [facility] Comment on above: Order Comment: Speci men Type: BLOOD SPECIMENOrdering Facility: [facility] Address: [address] [place], [place] [address] Performed By: #### 2 4323-8, 99665-3 ####[facility] LABIA [id number] [place] [address] [place] Creatinine [Mass/Vol] 0.89 mg/dL Normal 0.73-1.22 [facility] Comment on above: Order Comment: Specteagan brooks Type: BLOOD SPECIMENOrdering Facility: [facility] Address: [address] [place] [address] Performed By: #### 2 4323-8, 29613-4 ####[facility] LABIA [id number] [place] [address] [place] Creatinine and Glomerular filtration rate.predicted panel (S/P/Bld) 88 mL/min/1.73m??? Normal >=60 [facility] Comment on above: Order Comment: Jeffy brooks Type: BLOOD SPECIMENOrdering Facility: [facility] Address: [address] [place] [address] Result Comment: Thais mated Glomerular Filtration Rate (eGFR) is calculated using the 2020 CKD-EPI creatinine equation. This equation utilizes serum creatinine, sex, and age as parameters. The creatinine assay has traceable calibration to isotope dilution-mass spectrometry. Refer to KDIGO guidelines for clinical interpretation. In patients with unstable renal function, e.g. those with acute kidney injury, the eGFR may not accurately reflect actual GFR. Performed By: #### 2 4323-8, 90538-5 ####[facility] LABIA [id number] [place] [address] [place] Glucose [Mass/Vol] 74 mg/dL Normal 74-99 [facility] Comment on above: Order Comment: Jeffy brooks Type: BLOOD SPECIMENOrdering Facility: [facility] Address: [address] [place] [address] Result Comment: The [place] Diabetes Association (ADA) provides guidance for cutoff values for fasting glucose and random glucose. The ADA defines fasting as no caloric intake for at least 8 hours. Fasting plasma glucose results between 100 to 125 mg/dL indicate increased risk for diabetes (prediabetes). Fasting plasma glucose results greater than or equal to 126 mg/dL meet the criteria for diagnosis of diabetes. In the absence of unequivocal hyperglycemia, results should be confirmed by repeat testing. In a patient with classic symptoms of hyperglycemia or hyperglycemic crisis, random plasma glucose results greater than or equal to 200 mg/dL meet the criteria for diagnosis of diabetes. Reference: Standards of Medical Care in Diabetes 2016, [place] Diabetes Association. Diabetes Care. 2016.39(Suppl 1). Performed By: #### 2 4323-8, 38458-8 ####[facility] LABCLIA [id number] [place] [address] [place] Potassium [Moles/Vol] 4.3 mmol/L Normal 3.7-5.1 [facility] Comment on above: Order Comment: Speci men Type: BLOOD SPECIMENOrdering Facility: [facility] Address: [address] [place] [address] Performed By: #### 2 4328, ####[facility] LABCLIA [id number] [place] [address] [place] Protein [Mass/Vol] 6.8 g/dL Normal 6.3-8.0 [facility] Comment on above: Order Comment: Krystali cecilia Type: BLOOD SPECIMENOrdering Facility: [facility] Address: [address] [place] [address] Performed By: #### 2 4323-8, ####[facility] LABCLIA [id number] [place] [address] [place] Sodium [Moles/Vol] 142 mmol/L Normal 136-144 [facility] Comment on above: Order Comment: Speci men Type: BLOOD SPECIMENOrdering Facility: [facility] Address: [address] [place] [address] Performed By: #### 2 4323-8, ####[facility] LABCLIA [id number] [place] [id number] [place] Urea nitrogen [Mass/Vol] 14 mg/dL Normal 9-24 [facility] Comment on above: Order Comment: Jeffy brooks Type: BLOOD SPECIMENOrdering Facility: [facility] Address: [address] [place] [address] Performed By: #### 2 4323-8, 90299-2 ####[facility] LABCLIA [id number] [place] [address] [place] HbA1c (Bld)on 06-10-2024 Average glucose Estimated from glycated hemoglobin (Bld) [Mass/Vol] 137 mg/dL [facility] Comment on above: eAG: (Estimated aver age glucose) is a calculated value from HgbA1c and is parts representative of the average blood glucose level in the last 2-3 month period. HbA1c (Bld) [Mass fraction] 6.4 % High 4.3 - 5.6 % [facility] Comment on above: [place] Diabetes As sociation guidelines indicate that patients with HgbA1c in the range 5.7-6.4% are at increased risk for development of diabetes, and intervention by lifestyle modification may be beneficial. HgbA1c greater or equal to 6.5% is considered diagnostic of diabetes. Interpretation and review of laboratory results Abnormal [facility] Average glucose Estimated from glycated hemoglobin (Bld) [Mass/Vol] 137 mg/dL Normal [facility] Comment on above: Order Comment: Jeffy brooks Type: BLOOD SPECIMEN [facility] Address: [address] [place] [address] Result Comment: eAG: (Estimated average glucose) is a calculated value from HgbA1c and is parts representative of the average blood glucose level in the last 2-3 month period. Performed By: #### 1 988-5 #### [facility] LAB CLIA [id number] [address] [place] [address] [place] HbA1c (Bld) [Mass fraction] 6.4 % High 4.3-5.6 [facility] Comment on above: Order Comment: Jeffy brooks Type: BLOOD SPECIMEN [facility] Address: [address] [place] [address] Result Comment: [place] Diabetes Association guidelines indicate that patients with HgbA1c in the range 5.7-6.4% are at increased risk for development of diabetes, and intervention by lifestyle modification may be beneficial. HgbA1c greater or equal to 6.5% is considered diagnostic of diabetes. Performed By: #### 1 988-5 #### [facility] LAB CLIA [id number] [address] [place] [address] [place] Lipid 1996 panelon 4 Cholesterol [Mass/Vol] 174 mg/dL NINF - 200 mg/dL [facility] Comment on above: <200 mg/dL, Desirabl e 200-239 mg/dL, Borderline high >239 mg/dL, High Cholesterol in HDL [Mass/Vol] 39 mg/dL Low 39 - PINF mg/dL [facility] Comment on above: 40-59 mg/dL, Accepta ble >59 mg/dL, High: Negative risk factor for coronary heart disease <40 mg/dL, Low: Positive risk factor for coronary heart disease Cholesterol in LDL [Mass/Vol] 98 mg/dL NINF - 100 mg/dL [facility] Comment on above: <100 mg/dL, Optimal 100-129 mg/dL, Near optimal/above optimal 130-159 mg/dL, Borderline high 160-189 mg/dL, High >189 mg/dL, Very high Secondary prevention optimal LDL Cholesterol levels are recommended to be < 70 mg/dL Cholesterol in LDL/Cholesterol in HDL [Mass ratio] 2.51 {ratio} NINF - 2.54 [facility] Comment on above: Reference: 1. National Cholesterol Education Program ATP III Guideline At-A-Glance Quick Desk Reference: National Heart, Lung, and Blood [place]. National Institutes of Health. 2001: NIH Publication No. 01-3305. 2. An International Atherosclerosis Society position paper: global recommendations for the management of dyslipidemia: executive summary, Atherosclerosis. 2014: 232(2):410-413. Cholesterol in VLDL [Mass/Vol] 37 mg/dL High NINF - 30 mg/dL [facility] Cholesterol non HDL [Mass/Vol] 135 mg/dL High NINF - 130 mg/dL [facility] Comment on above: <130 mg/dL, Optimal 130-159 mg/dL, Near optimal/above optimal 160-189 mg/dL, Borderline high 190-219 mg/dL, High >219 mg/dL, Very high Secondary prevention optimal non HDL Cholesterol levels are recommended to be <100 mg/dL Cholesterol.total/Chol esterol in HDL [Mass ratio] 4.46 {ratio} NINF - 5.10 [facility] Fasting Time 12 hrs [facility] Interpretation and review of laboratory results Abnormal [facility] Triglyceride [Mass/Vol] 187 mg/dL High NINF - 150 mg/dL [facility] Comment on above: <150 mg/dL, Normal 150-199 mg/dL, Borderline high 200-499 mg/dL, High >499 mg/dL, Very high Cholesterol [Mass/Vol] 174 mg/dL Normal <200 [facility] Comment on above: Order Comment: Speci men Type: BLOOD SPECIMENOrdering Facility: [facility] Address: [address] [place] [address] Result Comment: <200 mg/dL, Desirable 200-239 mg/dL, Borderline high >239 mg/dL, High Performed By: #### 2 4323-8, 13602-3 ####[facility] LABCLIA [id number] [place] [address] [place] Cholesterol in HDL [Mass/Vol] 39 mg/dL Low >39 [facility] Comment on above: Order Comment: Krystali men Type: BLOOD SPECIMENOrdering Facility: [facility] Address: [address] [place] [address] Result Comment: 40-5 9 mg/dL, Acceptable >59 mg/dL, High: Negative risk factor for coronary heart disease <40 mg/dL, Low: Positive risk factor for coronary heart disease Performed By: #### 2 4323-8, 47972-2 ####[facility] LABCLIA [id number] [place] [address] [place] Cholesterol in LDL [Mass/Vol] 98 mg/dL Normal <100 [facility] Comment on above: Order Comment: Krystali men Type: BLOOD SPECIMENOrdering Facility: [facility] Address: [address] [place] [address] Result Comment: <100 mg/dL, Optimal 100-129 mg/dL, Near optimal/above optimal 130-159 mg/dL, Borderline high 160-189 mg/dL, High >189 mg/dL, Very high Secondary prevention optimal LDL Cholesterol levels are recommended to be < 70 mg/dL Performed By: #### 2 4323-8, 22929-5 ####[facility] LABCLIA [id number] [place] [address] [place] Cholesterol in LDL/Cholesterol in HDL [Mass ratio] 2.51 {ratio} Normal <2.54 [facility] Comment on above: Order Comment: Jeffy brooks Type: BLOOD SPECIMENOrdering Facility: [facility] Address: [address] [place] [address] Result Comment: Refe rence: 1. National Cholesterol Education Program ATP III Guideline At-A-Glance Quick Desk Reference: National Heart, Lung, and Blood [place]. National Institutes of Health. 2001: NIH Publication No. 01-3305. 2. An International Atherosclerosis Society position paper: global recommendations for the management of dyslipidemia: executive summary, Atherosclerosis. 2014: 232(2):410-413. Performed By: #### 2 4323-8, 55644-2 ####[facility] LABIA [id number] [place] [address] [place] Cholesterol in VLDL [Mass/Vol] 37 mg/dL High <30 [facility] Comment on above: Order Comment: Jeffy brooks Type: BLOOD SPECIMENOrdering Facility: [facility] Address: [address] [place] [address] Performed By: #### 2 4323-8, 03467-0 ####[facility] LABIA [id number] [place] [address] [place] Cholesterol non HDL [Mass/Vol] 135 mg/dL High <130 [facility] Comment on above: Order Comment: Jeffy brooks Type: BLOOD SPECIMENOrdering Facility: [facility] Address: [address] [place] [address] Result Comment: <130 mg/dL, Optimal 130-159 mg/dL, Near optimal/above optimal 160-189 mg/dL, Borderline high 190-219 mg/dL, High >219 mg/dL, Very high Secondary prevention optimal non HDL Cholesterol levels are recommended to be <100 mg/dL Performed By: #### 2 4323-8, 23478-8 ####[facility] LABCLIA [id number] [place] [address] [place] Cholesterol.total/Chol esterol in HDL [Mass ratio] 4.46 {ratio} Normal <5.10 [facility] Comment on above: Order Comment: Speci men Type: BLOOD SPECIMENOrdering Facility: [facility] Address: [address] [place] [address] Performed By: #### 2 4323-8, 38253-5 ####[facility] LABCLIA [id number] [place] [address] [place] FASTING TIME 12 hrs Normal [facility] Comment on above: Order Comment: Speci men Type: BLOOD SPECIMENOrdering Facility: [facility] Address: [address] [place] [address] Performed By: #### 2 4323-8, ####[facility] LABCLIA [id number] [place] [address] [place] Triglyceride [Mass/Vol] 187 mg/dL High <150 [facility] Comment on above: Order Comment: Speci men Type: BLOOD SPECIMENOrdering Facility: [facility] Address: [address] [place] [address] Result Comment: <150 mg/dL, Normal 150-199 mg/dL, Borderline high 200-499 mg/dL, High >499 mg/dL, Very high Performed By: #### 2 4323-8, 27625-0 ####[facility] LABCLIA [id number] [place] [address] [place] No Panel Informationon 06-10 [facility] normalized rat io (INR) calculationOrdered By: Torri Mendoza on 06-01-2024 INR Coag (Bld) [Relative time] 2.5 {INR} [facility] Prothrombin Time w/INRon INR Coag (PPP) [Relative time] 2.5 {INR} Normal [facility] Comment on above: Performed By: #### L 9200.0000 #### [facility] [address] [place], [address] Prothrombin timeOrdered By: Torri Mendoza on 06-01-2024 PT Coag (PPP) [Time] 26.6 s High 11.7-14.9 [facility] Comment on above: Performed By: #### L 9200.0000 #### [facility] [address] [place], [address] Prothrombin Time w/INRon INR Coag (PPP) [Relative time] 3.2 {INR} Normal [facility] Comment on above: Performed By: #### L 300.3900 ####[facility] [id number] [place], [address] PT Coag (PPP) [Time] 32.6 s High 11.7-14.9 [facility] Comment on above: Performed By: #### L 300.3900 ####[facility] [id number] [place], [address] PT D/C Summary (1)on 024 PT D/C Summary (1) [facility] Physical Therapy [address] [place] [address] / REHABILITATION SERVICES DISCHARGE SUMMARY MR#: [id number] Acct: [id number] Name: LARA TAPIA Rep #: [id number] : 1945 78 From: Thao ESTRADA Referring Dr.: Dr. Ag Ledesma MD Status: REG RCR Insurance: MEDICARE PART A B [employer] Discharge Summary D/C summary: It has been my pleasure to treat LARA TAPIA referred by Dr. Ag Ledesma MD, with the diagnosis of Neuropathy and poor balance for a total of 7 visit(s). Discharge Date: 01/23/24 Please see the following information for a summary of their discharge status. Subjective Subjective: His calves are feeling better and can tolerate it now. He feels like he is not veering as much. He still veers when he is tired. He has Silver Sneakers and will start on Mondays. Pain bilat calves: Pain Intensity (Out of 10): 6 feet: Pain Intensity (Out of 10): 0 Overall Improvement % Improvement: 40 Objective Objective/Function: CATSIB 120/120 FGA 18 Goals Goal 1:: Pt. will report no falls. Goal Progress: Goal Met Goal 2:: Pt. will be able to walk at least 20 minutes with no rest break in order to improve endurance. Goal Progress: Goal Met Goal 3:: Pt. will improve tandem stance > 15 secs in order to improve stability and balance. Goal 4:: Pt. will improve mCTSIB condition 2 by at least 5% in order to improve stability and balance. Goal Progress: Goal Met Goal 5:: Pt. will improve LEFS <40% disability in order to improve stability and balance. Goal 6:: Pt will improve FGA by 3 points (score at eval was 13) Goal Progress: Goal Met Plan Plan: +++ Continue with what we are doing and slowly add over next 5 visits machines to transfer to [employer]. (leg press, seated hip abd, Hamstring etc). Work on hip and ankle strength, functional balance including side step ups and sit to stand to upright hip ext balance with HEP Continue with improving LE strength, endurance, and balance. D/C Information Discharge Comments: DC PT to HEP/gym routine d/c sentence: If there are questions or concerns regarding this patient's physical therapy, please feel free to call me at [phone]. Thank you for the referral of this patient. Sincerely, Thao Aguero, MPT Balance/Gait/Functional tests Balance/Special Test Scores Functional Gait Assessment Score: 18 % Disability: 40.0000 CATSIB Score (Max score 120 seconds): 120 Lower Extremity Functional Score: 50 Improvement % Improvement: 40 04/22/24 1030 CC: Dr. Harlan Ford DO; Dr. Ag Ledesma MD Signed Normal [facility] Prothrombin Time w/INRon INR Coag (PPP) [Relative time] 2.2 {INR} Normal [facility] Comment on above: Performed By: #### L 9200.0000 #### [facility] [address] [place], [address] PT Coag (PPP) [Time] 24.2 s High 11.7-14.9 [facility] Comment on above: Performed By: #### L 9200.0000 #### [facility] [address] [place], [place], [address] CNPNon 03-13-2024 [facility] Telephone ([facility]) -- LARA TAPIA ([id number]) 1945 M Date Time Provider Department 03/13/[address] [facility] During your visit today, we recorded the following information about you: Matheus Lagos PA 03/13/2024 6:09 PM Signed Please contact patient and let him know his swab came back negative for herpes. It showed some mixed oral horace, but no obvious sign of infection. He needs to follow-up with dermatology. Josie Caballero MA 03/13/2024 6:19 PM Signed Patient notified of results, verbalized understanding of instructions given. Josie Caballero MA Allergies As of Date: 03/13/2024 Noted Allergy Reaction LYRICA (PREGABALIN) 12/25/2010 14 - Other: See Comments Comments: Cough Date Reviewed: 03/11/2024 Reviewed by: Besancon, Zehra, CYTOPATHOLOGIST - Fully Assessed Reason for Visit: Results [95] Prescriptions as of 03/13/2024 - Blood-Glucose Meter monitoring kit Glucose Meter of Choice - Kit - Dx: Other DM Code E11.42 Insulin No - metFORMIN ER (GLUCOPHAGE XR) 750 mg 24 hr tablet Take 1 tablet by mouth two times a day with meals. - triamcinolone acetonide (KENALOG) 0.5 % cream Apply 1 application to affected area two times a day for 10 days. On legs, For rash/itching. Apply sparingly. Avoid face/skin fold. - lamoTRIgine (LAMICTAL) 25 mg tablet Take 1 tablet by mouth once daily. 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 - mupirocin (BACTROBAN) 2 % ointment Apply to affected area every 12 hours as needed (skin wound or infection). - simvastatin (ZOCOR) 20 mg tablet Take 1 tablet by mouth once daily. - meloxicam (MOBIC) 7.5 mg tablet TAKE 1 TABLET BY MOUTH ONCE DAILY. NEEDED FOR FOOT PAIN, WITH FOOD. - glimepiride (AMARYL) 4 mg tablet Take 1 tablet by mouth two times a day with meals. - losartan (COZAAR) 50 mg tablet Take 1 tablet by mouth once daily. - gabapentin (NEURONTIN) 300 mg capsule TAKE 3 CAPSULES BY MOUTH 3 TIMES A DAY - warfarin (COUMADIN) 4 mg tablet Take 4 mg by mouth daily as directed. 4 mg Sat, Sun, Mon, 8 mg all other days - blood sugar diagnostic ([facility] MedicalTOUCH ULTRA TEST) test strip Test blood sugars once daily. DX: E11.42 Insulin: No - clopidogrel (PLAVIX) 75 mg tablet Take 75 mg by mouth once daily. - cholecalciferol, vitamin D3, (VITAMIN D3 ORAL) Take 1 tablet by mouth once daily. - POTASSIUM-99 ORAL Take 1 tablet by mouth once daily. - Magnesium 200 mg tab Take 500 mg by mouth once daily. - aspirin 81 mg chewable tablet Take 1 tablet by mouth once daily. - blood sugar diagnostic (BLOOD GLUCOSE TEST) test strip Test blood sugar(s) 1 times daily. Dx: Other DM Code E11.42 Insulin: No. Patient uses One Touch Verio - cyanocobalamin (VITAMIN B-12) 1,000 mcg tab Take 1,000 mcg by mouth once daily. - COMPOUNDED PRESCRIPTION Diabetic shoes Dx: E11.65, DM2 Last office visit 05/20/18. - ketoconazole (NIZORAL) 2 % shampoo Apply 1 application to affected area once daily as needed for Itching/Rash (scalp itching). - metroNIDAZOLE 0.75 % cream APPLY TO [...] eyes, eyelids, and deep fold areas. - Fpumpvbtebm-Okuguviec-Vik C-Mn (GLUCOSAMINE CHONDROITIN MAXSTR) 500-400 mg ORAL Cap Take one(1) tablet daily. - Aspirin 81 mg ORAL Tab Take one(1) tablet daily. 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 Normal [facility] Bacteria Wnd Culton 03-11-20 24 Bacteria identified Cx Nom (Wound) ORGANISM ID: 1 Moderate mixed oral and respiratory horace GRAM STAIN: No organisms seen No Polymorphonuclear Leukocytes Abnormal [facility] Comment on above: Performed By: #### 6 462-6 #### [facility] CLIA [id number] [address] [place] [address] OF [facility] CNOVon 03-11-2024 CNOV Office Visit (UCWSTR ) -- LARA TAPIA ([id number]) 1945 M Date Time Provider Department 03/11/24 1:30 PM [address] [facility] During your visit today, we recorded the following information about you: Temperature Pulse Respiration Blood pressure 98.4 degrees 69/minute 16/minute 132/76 Weight 89.9 kg Tyrell Corrigan APRN.SALES SUPPORT COORDINATOR 03/11/2024 1:53 PM Signed Subjective Patient came in with complaints of open sore on his bottom lip since March 04. Patient has tried Abreva and Chapstick to no avail. Wound does seem to be getting larger. Patient does have a history of skin cancer on his nose. Patient says it is a little uncomfortable but nothing severe. Patient denies any other symptoms. Review of Systems Constitutional: Negative. Skin: Negative. Objective Physical Exam Constitutional: Appearance: Normal appearance. HENT: Mouth/Throat: Comments: Patient does have what appears to be single layer missing on bottom lip in the area marked above. Does appear to be one third of the entire lip. Cardiovascular: Rate and Rhythm: Normal rate and regular rhythm. Heart sounds: Normal heart sounds. Pulmonary: Effort: Pulmonary effort is normal. Breath sounds: Normal breath sounds. Neurological: Mental Status: He is alert. 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 01/2023: Recurrent UTI Comment: didn't respond to Keflex, did well with Cipro 04/23/2008: Scar condition and fibrosis of skin 04/23/2008: Seborrheic dermatitis, unspecified No date: Type II or unspecified type diabetes mellitus without mention of complication, not stated as uncontrolled 04/07/2009: Umbilical hernia without mention of obstruction or gangrene 04/23/2008: Unspecified pruritic disorder PAST SURGICAL HISTORY 07/18/1982: CHOLECYSTECTOMY Comment: Cholecystectomy y: COLONOSCOPY FLX DX W/COLLJ SPEC WHEN PFRMD Comment: Colonoscopy repeat in 10 years 01/30/08: COLSC FLX W/RMVL OF TUMOR POLYP LESION SNARE TQ No date: EYE SURGERY HX 05-06-09: LAPAROSCOPY SURG RPR INITIAL INGUINAL HERNIA Comment: LEFT INGUINAL No date: PAST SURGICAL HISTORY OF Comment: Skin lesion removed from nose 05-06-09: RPR UMBILICAL HERNIA AGE 6 YRS/> INCARCERATED ALLERGIES Lyrica [Pregabalin] MEDICATIONS Blood-Glucose Meter monitoring kit Glucose Meter of Choice - Kit - Dx: Other DM Code E11.42 Insulin No metFORMIN ER (GLUCOPHAGE XR) 750 mg 24 hr tablet Take 1 tablet by mouth two times a day with meals. triamcinolone acetonide (KENALOG) 0.5 % cream Apply 1 application to affected area two times a day for 10 days. On legs, For rash/itching. Apply sparingly. Avoid face/skin fold. lamoTRIgine (LAMICTAL) 25 mg tablet Take 1 tablet by mouth once daily. Clobetasol Propionate (TEMOVATE) 0.05 % external solution Apply 1 application to affected area once daily as needed (scalp psoriasis). mupirocin (BACTROBAN) 2 % ointment Apply to affected area every 12 hours as needed (skin wound or infection). simvastatin (ZOCOR) 20 mg tablet Take 1 tablet by mouth once daily. meloxicam (MOBIC) 7.5 mg tablet TAKE 1 TABLET BY MOUTH ONCE DAILY. NEEDED FOR FOOT PAIN, WITH FOOD. glimepiride (AMARYL) 4 mg tablet Take 1 tablet by mouth two times a day with meals. losartan (COZAAR) 50 mg tablet Take 1 tablet by mouth once daily. gabapentin (NEURONTIN) 300 mg capsule TAKE 3 CAPSULES BY MOUTH 3 TIMES A DAY warfarin (COUMADIN) 4 mg tablet Take 4 mg by mouth daily as directed. 4 mg Sat, Sun, Mon, 8 mg all other days blood sugar diagnostic (ONETOUCH ULTRA TEST) test strip Test blood sugars once daily. DX: E11.42 Insulin: No clopidogrel (PLAVIX) 75 mg tablet Take 75 mg by mouth once daily. cholecalciferol, vitamin D3, (VITAMIN D3 ORAL) Take 1 tablet by mouth once daily. POTASSIUM-99 ORAL Take 1 tablet by mouth once daily. Magnesium 200 mg tab Take 500 mg by mouth once daily. blood sugar diagnostic (BLOOD GLUCOSE TEST) test strip Test blood sugar(s) 1 times daily. Dx: Other DM Code E11.42 Insulin: No. Patient uses One Touch Verio cyanocobalamin (VITAMIN B-12) 1,000 mcg tab Take 1,000 mcg by mouth once daily. COMPOUNDED PRESCRIPTION Diabetic shoes Dx: E11.65, DM2 Last office visit 05/20/18. ketoconazole (NIZORAL) 2 % shampoo Apply 1 application to affected area once daily as needed for Itching/Rash (sc (more content not included)... Normal [facility] HSV+VZV DNA JOSÉ+probe Ql (Un sp spec)on 03-11-2024 HSV 1 DNA JOSÉ+probe Ql (Unsp spec) Not detected Normal Not Detected [facility] Comment on above: Order Comment: Speci men Type: BLOOD SPECIMEN Ordering Facility: [facility] Address: [address] [place] [address] Performed By: #### 1 988-5 #### [facility] CLIA [id number] [address] [place] [address] [place] HSV 2 DNA JOSÉ+probe Ql (Unsp spec) Not detected Normal Not Detected [facility] Comment on above: Order Comment: Speci men Type: BLOOD SPECIMEN Ordering Facility: [facility] Address: [address] [place] [address] Performed By: #### 1 988-5 #### [facility] CLIA [id number] [address] [place] [address] OF [place] VZV DNA JOSÉ+probe Ql (Unsp spec) Not detected Normal Not Detected [facility] Comment on above: Order Comment: Speci men Type: BLOOD SPECIMEN Ordering Facility: [facility] Address: [address] [place] [address] Performed By: #### 1 988-5 #### [facility] CLIA [id number] [address] [place] [address] OF [place] Patricia 03-04-2024 FRANSISCA Telephone (ANGELESWS) -- LARA TAPIA ([id number]) 1945 M Date Time Provider Department 03/04[facility] During your visit today, we recorded the following information about you: Jose Osborne APRN.CNP 03/04/2024 5:12 PM Signed Please let him know that we received his lab results. They are all in normal target range, no concerns. CATHERINE Lara Jazzmin, MA 03/04/2024 5:24 PM Signed Pt informed, verbalized understanding Wilda Cheek MA Allergies As of Date: 03/04/2024 Noted Allergy Reaction LYRICA (PREGABALIN) 12/25/2010 14 - Other: See Comments Comments: Cough Date Reviewed: 03/03/2024 Reviewed by: Mandy Monroy LPN - Fully Assessed Reason for Visit: Results [95] Prescriptions as of 03/04/2024 - Blood-Glucose Meter monitoring kit Glucose Meter of Choice - Kit - Dx: Other DM Code E11.42 Insulin No - metFORMIN ER (GLUCOPHAGE XR) 750 mg 24 hr tablet Take 1 tablet by mouth two times a day with meals. - predniSONE (DELTASONE) 10 mg tablet Take 3 tablets by mouth once daily for 7 days. - triamcinolone acetonide (KENALOG) 0.5 % cream Apply 1 application to affected area two times a day for 10 days. On legs, For rash/itching. Apply sparingly. Avoid face/skin fold. - lamoTRIgine (LAMICTAL) 25 mg tablet Take 1 tablet by mouth once daily. 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 - mupirocin (BACTROBAN) 2 % ointment Apply to affected area every 12 hours as needed (skin wound or infection). - simvastatin (ZOCOR) 20 mg tablet Take 1 tablet by mouth once daily. - meloxicam (MOBIC) 7.5 mg tablet TAKE 1 TABLET BY MOUTH ONCE DAILY. NEEDED FOR FOOT PAIN, WITH FOOD. - glimepiride (AMARYL) 4 mg tablet Take 1 tablet by mouth two times a day with meals. - losartan (COZAAR) 50 mg tablet Take 1 tablet by mouth once daily. - gabapentin (NEURONTIN) 300 mg capsule TAKE 3 CAPSULES BY MOUTH 3 TIMES A DAY - warfarin (COUMADIN) 4 mg tablet Take 4 mg by mouth daily as directed. 4 mg Sat, Sun, Mon, 8 mg all other days - blood sugar diagnostic ([facility] MedicalTOUCH ULTRA TEST) test strip Test blood sugars once daily. DX: E11.42 Insulin: No - clopidogrel (PLAVIX) 75 mg tablet Take 75 mg by mouth once daily. - cholecalciferol, vitamin D3, (VITAMIN D3 ORAL) Take 1 tablet by mouth once daily. - POTASSIUM-99 ORAL Take 1 tablet by mouth once daily. - Magnesium 200 mg tab Take 500 mg by mouth once daily. - aspirin 81 mg chewable tablet Take 1 tablet by mouth once daily. - blood sugar diagnostic (BLOOD GLUCOSE TEST) test strip Test blood sugar(s) 1 times daily. Dx: Other DM Code E11.42 Insulin: No. Patient uses One Touch Verio - cyanocobalamin (VITAMIN B-12) 1,000 mcg tab Take 1,000 mcg by mouth once daily. - COMPOUNDED PRESCRIPTION Diabetic shoes Dx: E11.65, DM2 Last office visit 05/20/18. - ketoconazole (NIZORAL) 2 % shampoo Apply 1 application to affected area once daily as needed for Itching/Rash (scalp itching). - metroNIDAZOLE 0.75 % cream APPLY TO [...] eyes, eyelids, and deep fold areas. - Rpzejhdmcop-Ugcthcvsc-Rqr C-Mn (GLUCOSAMINE CHONDROITIN MAXSTR) 500-400 mg ORAL Cap Take one(1) tablet daily. - Aspirin 81 mg ORAL Tab Take one(1) tablet daily. Problem List As Of Date 03/04/2024 Noted Resolved Unspecified hereditary and idiopathic periphera*11/21/2006 [...] unilateral 04/07/2009 07/12/2016 HTN (hypertension) [I10] 04/25/2010 Ojc-znmq-kbbc proliferative diabetic retinopath*05/28/2014 05/28/2014 Nonproliferative diabetic retinopathy (HCC) [E1*05/28/2014 11/13/2019 Uncontrolled type 2 diabetes mellitus with neur*04/14/2015 04/14/2015 Uncontrolled type 2 diabe (more content not included)... Normal [facility] B. burgdorferi IgG and IgM p edgar (S)on 03-03-2024 B. burgdorferi IgG+IgM Qn (S) Negative Normal Negative [facility] Comment on above: Order Comment: Speci men Type: BLOOD SPECIMENOrdering Facility: [facility] Address: [address] [place] [address] Result Comment: Rece nt infection with B. burgdorferi sensu lato cannot be excluded if the specimen collected within four weeks after the onset of signs and symptoms or within six weeks after a known tick exposure. Clinical and epidemiological correlation is required. Performed By: #### 3 4942-3 ####[facility] [id number] [address] STATES OF [facility] CNOVon 03-03-2024 CNOV Office Visit (FAMPWS ) -- LARA TAPIA ([id number]) 1945 M Date Time Provider Department 03/03/24 10:00 AM HARLAN FORD FAMPWS During your visit today, we recorded the following information about you: Temperature Pulse Respiration Blood pressure 97.5 degrees 60/minute 20/minute 100/60 Weight 89.4 kg Harlan Ford DO 03/03/2024 10:59 AM Signed Patient presents with: F/U 3 Month HPI: Lara Tapia is a 78 year old male who presents to the office today for review of health conditions. Concerns today: Rash, on his legs, no pain or itching, no new exposures. Has been present for 1-2 days, noticed it after being in the shower. No known hx of vasculitis or tick bite Overall he is feeling well Blood glucoses mostly in the 70s fasting recently. Tolerating medications. Denies any symptoms Mr. Tapia has past history of diabetes. Since our [...] was within the past 12 months Mr. Tapia reports history of hyperlipidemia. Current therapy includes simvastatin (Zocor) 20 mg. Denies side effects of muscle weakness or achiness. His most recent lipid panels are reviewed. Cholesterol, Total (mg/dL) Date Value 02/06/2023 174 05/22/2021 188 HDL Cholesterol (mg/dL) Date Value 02/06/2023 43 05/22/2021 40 LDL Cholesterol (mg/dL) Date Value 02/06/2023 93 05/22/2021 101 Triglyceride (mg/dL) Date Value 02/06/2023 192 05/22/2021 233 Mr. Tapia indicates a history of hypertension and states that he is feeling well and denies any symptoms referable to elevated blood pressure. Specifically denies headache, chest pain, palpitations, dyspnea, and peripheral edema. Patient denies any side effects of his medication(s) and is compliant with their regimen. Last 3 Encounter BP Readings: Date: BP: 03/03/2024 100/60 11/26/2023 120/60 08/28/2023 100/60 He watches his diet for sodium, low fat and low cholesterol some of the time. He does not check BP's generally. Lara likes to exercise by walking on treadmill. 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 01/2023: Recurrent UTI Comment: didn't respond to Keflex, did well with Cipro 04/23/2008: Scar condition and fibrosis of skin 04/23/2008: Seborrheic dermatitis, unspecified No date: Type II or unspecified type diabetes mellitus without mention of complication, not stated as uncontrolled 04/07/2009: Umbilical hernia without mention of obstruction or gangrene 04/23/2008: Unspecified pruritic disorder PAST SURGICAL HISTORY 07/18/1982: CHOLECYSTECTOMY Comment: Cholecystectomy y: COLONOSCOPY FLX DX W/COLLJ SPEC WHEN PFRMD Comment: Colonoscopy repeat in 10 years 01/30/08: COLSC FLX W/RMVL OF TUMOR POLYP LESION SNARE TQ No date: EYE SURGERY HX 05-06-09: LAPAROSCOPY SURG RPR INITIAL INGUINAL HERNIA Comment: LEFT INGUINAL No date: PAST SURGICAL HISTORY OF Comment: Skin lesion removed from nose 05-06-09: RPR UMBILICAL HERNIA AGE 6 YRS/> INCARCERATED Social History Tobacco Use Smoking status: Never Smokeless tobacco: Never Vaping Use Vaping status: Never Used Substance Use Topics Alcohol use: Yes Comment: beer Drug use: No FAMILY HISTORY Problem Relation Age of Onset Breast Cancer Mother Heart Father chf Breast Cancer Sister Allergies: ALLERGIES Allergen Reactions Lyrica [Pregabalin] Other: See Comments Cough Current Meds: metFORMIN ER (GLUCOPHAGE XR) 750 mg 24 hr tablet Take 1 tablet by mouth two times a day with meals. predniSONE (DELTASONE) 10 mg tablet Take 3 tablets by mouth once daily for 7 days. lamoTRIgine (LAMICTAL) 25 mg tablet Take 1 tablet by mouth once daily. Clobetasol Propionate (TEMOVATE) 0.05 % external solution Apply 1 application to affected area once daily as needed (scalp psoriasis) (more content not included)... Normal [facility] CRP SerPl-mCncon 03-03-2024 CRP [Mass/Vol] mg/L Normal <0.9 [facility] Comment on above: Order Comment: Speci men Type: BLOOD SPECIMEN Ordering Facility: [facility] Address: [address] [place] [address] Performed By: #### 1 988-5 #### [facility] CLIA [id number] [address] [place] [address] [place] Centromere Ab IF Ql (S)on Centromere Ab Qn (S) <0.2 Normal <1.0 [facility] Comment on above: Order Comment: Speci men Type: BLOOD SPECIMEN Ordering Facility: [facility] Address: [address] [place] [address] Result Comment: Anti -centromere antibody is used as in aid in diagnosis of systemic sclerosis. Clinical correlation is required. Test Methodology: Multiplex flow immunoassay. Performed By: #### 1 988-5 #### [facility] CLIA [id number] [address] [place] [address] [place] CENTROMERE AB QUAL Negative Normal Negative [facility] Comment on above: Order Comment: Speci men Type: BLOOD SPECIMEN Ordering Facility: [facility] Address: [address] [place] [address] Performed By: #### 1 988-5 #### [facility] CLIA [id number] [address] [place] [address] [place] Chromatin Ab Qnon 03-03-2024 CHROMATIN AB QUAL Negative Normal Negative [facility] Comment on above: Order Comment: Speci men Type: BLOOD SPECIMEN Ordering Facility: [facility] Address: [address] [place] [address] Performed By: #### 1 988-5 #### [facility] CLIA [id number] [address] [place] [address] [place] Chromatin Ab SerPl-aCncon Chromatin Ab Qn <0.2 Normal <1.0 [facility] Comment on above: Order Comment: Speci men Type: BLOOD SPECIMEN Ordering Facility: [facility] Address: [address] [place] [address] Result Comment: Test Methodology: Multiplex flow immunoassay. Performed By: #### 1 988-5 #### [facility] CLIA [id number] [address] [place] [address] [place] JAVIER Jo1 Ab Ser-aCncon 2023 Ashlyn-1 extractable nuclear Ab Qn (S) <0.2 Normal <1.0 [facility] Comment on above: Order Comment: Speci men Type: BLOOD SPECIMENOrdering Facility: [facility] Address: [address] [place] [address] Performed By: #### 1 1565-9, 85126-0, 32320-7, 17727-7, 65091-3, 90361-5 ####[facility]IA [id number] [place] [address] [place] JAVIER EDI COORDINATOR Ab Ser-aCncon 2023 Ribonucleoprotein extractable nuclear Ab Qn (S) <0.2 Normal <1.0 [facility] Comment on above: Order Comment: Speci men Type: BLOOD SPECIMEN Ordering Facility: [facility] Address: [address] [place] [address] Performed By: #### 1 988-5 #### [facility] CLIA [id number] [address] [place] [address] [place] JAVIER SM IgG Ser-aCncon 2023 Bledsoe extractable nuclear IgG Qn (S) <0.2 Normal <1.0 [facility] Comment on above: Order Comment: Speci men Type: BLOOD SPECIMENOrdering Facility: [facility] Address: [address] [place] [address] Performed By: #### 1 1565-9, 12487-4, 82216-6, 80532-8, 26083-5, 93996-8 ####[facility] [id number] [place] [address] [place] JAVIER SS-A Ab Ser-aCncon 03-03 Sjogrens syndrome-A extractable nuclear Ab Qn (S) <0.2 Normal <1.0 [facility] Comment on above: Order Comment: Speci men Type: BLOOD SPECIMEN Ordering Facility: [facility] Address: [address] [place] [address] Result Comment: Test Methodology: Multiplex flow immunoassay. Performed By: #### 1 988-5 #### [facility] CLIA [id number] [address] [place] [address] [place] JAVIER SS-B Ab Ser-aCncon 03-03 Sjogrens syndrome-B extractable nuclear Ab Qn (S) <0.2 Normal <1.0 [facility] Comment on above: Order Comment: Speci men Type: BLOOD SPECIMEN Ordering Facility: [facility] Address: [address] [place] [address] Result Comment: Anti -SSB (anti-La) antibody is used as an aid in diagnosis of a variety of systemic autoimmune diseases, especially for Sjogren's syndrome and systemic lupus erythematosus. Clinical correlation is required. Test Methodology: Multiplex flow immunoassay. Performed By: #### 1 988-5 #### [facility] CLIA [id number] [address] [place] [address] [place] ESR Westergren method (Bld) [Velocity]on 03-03-2024 ESR (Bld) [Velocity] 8 mm/h Normal 0-15 [facility] Comment on above: Order Comment: Speci men Type: BLOOD SPECIMENOrdering Facility: [facility] Address: [address] [place] [address] Performed By: #### 4 537-7 ####[facility] [id number] [place] [address] [place] Ashlyn-1 extractable nuclear Ab Qn (S)on 03-03-2024 ASHLYN 1 ANTIBODY QUAL Negative Normal Negative [facility] Comment on above: Order Comment: Speci men Type: BLOOD SPECIMENOrdering Facility: [facility] Address: [address] [place] [address] Result Comment: Anti -ASHLYN-1 antibody is used as an aid in diagnosis of polymyositis and dermatomyositis especially with pulmonary involvement. A negative result cannot rule out polymyositis or dermatomyositis. Clinical correlation is required. Test Methodology: Multiplex flow immunoassay. Performed By: #### 1 1565-9, 59089-8, 77622-3, 93458-0, 46310-2, 21310-2 ####[facility] [id number] [place] [address] [place] Nuclear Ab IA Ql (S)on 03-03 JESUS SCR QUAL Negative Normal Negative [facility] Comment on above: Order Comment: Speci men Type: BLOOD SPECIMENOrdering Facility: [facility] Address: [address] [place] [address] Result Comment: The qualitative antinuclear antibody screen test performed using the following antigens: dsDNA, Chromatin, Ribosomal P, SS-A 60, SS-A 52, SS-B, Sm, SmRNP, EDI COORDINATOR A, EDI COORDINATOR 68, Scl-70, Ashlyn-1, and Centromere B. Methodology: Multiplex flow immunoassay. Performed By: #### 1 1565-9, 81191-7, 09339-7, 09110-3, 90492-8, 14501-9 ####[facility] LAB[facility] [id number] [place] [address] [place] Ribonucleoprotein extractabl e nuclear Ab Qn (S)on 03-03-2024 ANTI-EDI COORDINATOR QUAL Negative Normal Negative [facility] Comment on above: Order Comment: Jeffy brooks Type: BLOOD SPECIMEN [facility] Address: [address] [place] [address] Performed By: #### 1 988-5 #### [facility] CLIA [id number] [address] [place] [address] [place] RIBOSOMAL EDI COORDINATOR QUAL Negative Normal Negative [facility] Comment on above: Order Comment: Jeffy brooks Type: BLOOD SPECIMEN [facility] Address: [address] [place] [address] Result Comment: Anti -Ribosomal RNA (Ribosomal P) antibody is used as an aid in diagnosis of systemic autoimmune diseases especially systemic lupus erythematosus and mixed connective tissue disease. Cross-reactivity with Anti-bledsoe antibody is not uncommon. Clinical correlation is required. Test Methodology: Multiplex flow immunoassay. Performed By: #### 1 988-5 #### [facility] CLIA [id number] [address] [place] [address] [place] SCL-70 extractable nuclear I gG IA Qn (S)on 03-03-2024 SCLERODERMA AB QUAL Negative Normal Negative [facility] Comment on above: Order Comment: Jeffy brooks Type: BLOOD SPECIMENOrdering Facility: [facility] Address: [address] [place] [address] Performed By: #### 1 1565-9, 86222-7, 48958-2, 51966-9, 29156-1, 64643-0 ####[facility] LABCLIA [id number] [place] [address] [place] SCLERODERMA IGG AB <0.2 Normal <1.0 [facility] Comment on above: Order Comment: Jeffy brooks Type: BLOOD SPECIMENOrdering Facility: [facility] Address: [address] [place] [address] Result Comment: Scl- 70/Scleroderma antibody test is used as an aid in diagnosis of systemic sclerosis especially the diffuse cutaneous form. A negative result cannot rule out systemic sclerosis. The final interpretation should consider clinical picture and other test results such as anti-centromere antibody. Test Methodology: Multiplex flow immunoassay. Performed By: #### 1 1565-9, 61824-9, 24479-2, 11517-5, 40113-3, 11003-8 ####[facility] LABCLIA [id number] [facility] [place] [address] [place] Sjogrens syndrome-A extracta ble nuclear Ab Qn (S)on 03-03-2024 SSA ANTIBODY QUAL Negative Normal Negative [facility] Comment on above: Order Comment: Speci men Type: BLOOD SPECIMEN [facility] Address: [address] [place] [address] Performed By: #### 1 988-5 #### [facility] CLIA [id number] [address] [place] [address] [place] Sjogrens syndrome-B extracta ble nuclear Ab Qn (S)on 03-03-2024 SSB ANTIBODY QUAL Negative Normal Negative [facility] Comment on above: Order Comment: Speci men Type: BLOOD SPECIMEN [facility] Address: [address] [place] [address] Performed By: #### 1 988-5 #### [facility] CLIA [id number] [address] [place] [address] [place] Bledsoe extractable nuclear Ig G Qn (S)on 03-03-2024 SM ANTIBODY QUAL Negative Normal Negative [facility] Comment on above: Order Comment: Speci men Type: BLOOD SPECIMENOrdering Facility: [facility] Address: [address] [place] [address] Result Comment: Anti -Sm (Bledsoe) antibody is used as an aid in diagnosis of systemic lupus erythematosus and its presence is associated with renal disease. A negative result cannot rule out systemic lupus erythematosus. Clinical correlation is required. Test Methodology: Multiplex flow immunoassay. Performed By: #### 1 1565-9, 98025-6, 42658-1, 03016-4, 01985-4, 86034-9 ####[facility] LABCLIA [id number] [place] [id number] [place] Hemoglobin A1con 02-27-2024 HbA1c (Bld) [Mass fraction] 6.0 % High 3.8-5.6 [facility] Comment on above: Order Comment: JOANN Steiner ADD RESULTS TO DR. FORD PER PATIENT. Result Comment: Norm al < 5.7 % Prediabetic 5.7 - 6.4 % Diabetic >or= 6.5 % Please note range changes. Performed By: #### L 9200.0000 #### [facility] [address] [place], [address] Patricia [facility]20[facility] LARA [facility]APIA ([id number]) 1945 M Date Time Provider Department 02/11/24 [facility] During your visit today, we recorded the following information about you: Lily Harding RN 02/11/2024 3:33 PM Signed Josie with [facility] calling and states she is faxing over 2 items today to be signed, to assist in getting diabetic shoes for this patient. She is requesting: Dr. Ford to sign their Office Visit note and fax back. Dr. Ford to sign the statement and fax back. Fax papers back to FAX #: [phone]. Thank you. Ida Gan APRN.JIGNA 02/12/2024 4:54 PM Signed I do not see this paperwork. I am willing to sign if able. 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 [place] CheekJERARDO Adia WildaJERARDO bradley 02/13/2024 1:40 PM Signed Form received and placed in AD inbox JERARDO Wilcox Alyson, APRN.JIGNA 02/13/2024 2:18 PM Signed This is completed. Ida Gan APRN.JIGNA CheekKavinWildaJERARDO bradley 02/13/2024 2:40 PM Signed Faxed by Adali Potterarsenio Cheek MA Allergies As of Date: 02/11/2024 Noted Allergy Reaction LYRICA (PREGABALIN) 12/25/2010 14 - Other: See Comments Comments: Cough Date Reviewed: 11/26/2023 Reviewed by: Mandy Monroy LPN - Fully Assessed Reason for Visit: [facility] Call/Request [Other] Prescriptions as of 02/13/2024 - lamoTRIgine (LAMICTAL) 25 mg tablet Take 1 tablet by mouth once daily. 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 - mupirocin (BACTROBAN) 2 % ointment Apply to affected area every 12 hours as needed (skin wound or infection). - simvastatin (ZOCOR) 20 mg tablet Take 1 tablet by mouth once daily. - meloxicam (MOBIC) 7.5 mg tablet TAKE 1 TABLET BY MOUTH ONCE DAILY. NEEDED FOR FOOT PAIN, WITH FOOD. - glimepiride (AMARYL) 4 mg tablet Take 1 tablet by mouth two times a day with meals. - losartan (COZAAR) 50 mg tablet Take 1 tablet by mouth once daily. - gabapentin (NEURONTIN) 300 mg capsule TAKE 3 CAPSULES BY MOUTH 3 TIMES A DAY - warfarin (COUMADIN) 4 mg tablet Take 4 mg by mouth daily as directed. 4 mg Sat, Sun, Mon, 8 mg all other days - metFORMIN ER (GLUCOPHAGE XR) 750 mg 24 hr tablet Take 1 tablet by mouth two times a day with meals. - blood sugar diagnostic ([employer] ULTRA TEST) test strip Test blood sugars once daily. DX: E11.42 Insulin: No - clopidogrel (PLAVIX) 75 mg tablet Take 75 mg by mouth once daily. - cholecalciferol, vitamin D3, (VITAMIN D3 ORAL) Take 1 tablet by mouth once daily. - POTASSIUM-99 ORAL Take 1 tablet by mouth once daily. - Magnesium 200 mg tab Take 500 mg by mouth once daily. - aspirin 81 mg chewable tablet Take 1 tablet by mouth once daily. - blood sugar diagnostic (BLOOD GLUCOSE TEST) test strip Test blood sugar(s) 1 times daily. Dx: Other DM Code E11.42 Insulin: No. Patient uses One Touch Verio - cyanocobalamin (VITAMIN B-12) 1,000 mcg tab Take 1,000 mcg by mouth once daily. - COMPOUNDED PRESCRIPTION Diabetic shoes Dx: E11.65, [...] eyes, eyelids, and deep fold areas. - Djmtngegfwp-Wcqfatmij-Fjv C-Mn (GLUCOSAMINE CHONDROITIN MAXSTR) 500-400 mg ORAL Cap Take one(1) tablet daily. - Aspirin 81 mg ORAL Tab Take one(1) tablet daily. 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 Normal [facility] Prothrombin Time w/INRon INR Coag (PPP) [Relative time] 2.5 {INR} Normal [facility] Comment on above: Performed By: #### L 300.3900 #### [facility] [address] [place], [place], [id number] PT Coag (PPP) [Time] 26.8 s High 11.7-14.9 [facility] Comment on above: Performed By: #### L 300.3900 #### [facility] [address] [place], [place], [address] CNPNon 01-30-2024 [facility] LARA TAPIA ([id number]) 1945 M Date Time Provider Department [facility] visit today, we recorded the following information about you: Mary Rosado LPN 01/30/2024 10:42 AM Signed [facility] calling asking for copy of last office visit to be faxed to [phone]. Printed note from 11/2023 and faxed. She is also waiting for form to be signed for his diabetic shoes and be returned to her. Allergies As of Date: 01/30/2024 Noted Allergy Reaction LYRICA (PREGABALIN) 12/25/2010 14 - Other: See Comments Comments: Cough Date Reviewed: 11/26/2023 Reviewed by: Mandy Monroy LPN - Fully Assessed Reason for Visit: [facility] requesting records [Other] Prescriptions as of 01/30/2024 - lamoTRIgine (LAMICTAL) 25 mg tablet Take 1 tablet by mouth once daily. 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 - mupirocin (BACTROBAN) 2 % ointment Apply to affected area every 12 hours as needed (skin wound or infection). - simvastatin (ZOCOR) 20 mg tablet Take 1 tablet by mouth once daily. - meloxicam (MOBIC) 7.5 mg tablet TAKE 1 TABLET BY MOUTH ONCE DAILY. NEEDED FOR FOOT PAIN, WITH FOOD. - glimepiride (AMARYL) 4 mg tablet Take 1 tablet by mouth two times a day with meals. - losartan (COZAAR) 50 mg tablet Take 1 tablet by mouth once daily. - gabapentin (NEURONTIN) 300 mg capsule TAKE 3 CAPSULES BY MOUTH 3 TIMES A DAY - warfarin (COUMADIN) 4 mg tablet Take 4 mg by mouth daily as directed. 4 mg Sat, Sun, Mon, 8 mg all other days - metFORMIN ER (GLUCOPHAGE XR) 750 mg 24 hr tablet Take 1 tablet by mouth two times a day with meals. - blood sugar diagnostic ([employer] ULTRA TEST) test strip Test blood sugars once daily. DX: E11.42 Insulin: No - clopidogrel (PLAVIX) 75 mg tablet Take 75 mg by mouth once daily. - cholecalciferol, vitamin D3, (VITAMIN D3 ORAL) Take 1 tablet by mouth once daily. - POTASSIUM-99 ORAL Take 1 tablet by mouth once daily. - Magnesium 200 mg tab Take 500 mg by mouth once daily. - aspirin 81 mg chewable tablet Take 1 tablet by mouth once daily. - blood sugar diagnostic (BLOOD GLUCOSE TEST) test strip Test blood sugar(s) 1 times daily. Dx: Other DM Code E11.42 Insulin: No. Patient uses [employer] Touch Verio - cyanocobalamin (VITAMIN B-12) 1,000 mcg tab Take 1,000 mcg by mouth once daily. - COMPOUNDED PRESCRIPTION Diabetic shoes Dx: E11.65, [...] eyes, eyelids, and deep fold areas. - Tprmpergcef-Oolhzpjms-Yqa C-Mn (GLUCOSAMINE CHONDROITIN MAXSTR) 500-400 mg ORAL Cap Take one(1) tablet daily. - Aspirin 81 mg ORAL Tab Take one(1) tablet daily. 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 (more content not included)... Normal [facility] - CoagulationOrde red By: Torri Mendoza on 10-29-2023 INR Coag (Bld) [Relative time] 2.8 {INR} [facility] PT Coag (PPP) [Time] 29.6 s 11.7-14.9 [facility] - CoagulationOrde red By: Torri Mendoza on 10-01-2023 INR Coag (Bld) [Relative time] 2.1 {INR} [facility] PT Coag (PPP) [Time] 23.2 s 11.7-14.9 [facility] - CoagulationOrde red By: Torri Mendoza on 09-03-2023 INR Coag (Bld) [Relative time] 2.5 {INR} [facility] PT Coag (PPP) [Time] 26.8 s 11.7-14.9 [facility] Absolute lymphocyte countOrd ered By: Torri Mendoza on 08-27-2023 Lymphocytes Auto (Unsp spec) [#/Vol] 0.40 10*3/uL 0.83-4.51 [facility] Automated lymphocyte count a s percentage of total leukocytesOrdered By: Torri Mendoza on 08-27-2023 Lymphocytes/100 WBC Auto (Unsp spec) 13.4 % 19-41 [facility] Basophil percentageOrdered B y: Torri Mendoza on 08-27-2023 Basophils/100 WBC (Bld) 0.7 % 0-1 [facility] Bilirubin [Mass/Vol] 1.30 mg/dL 0.20-1.00 [facility] Comment on above: For patients on eltr ombopag therapy, use of Dimension [place] TBIL is not recommended. Chloride [Moles/Vol] 103 mmol/L 98-107 [facility] Eosinophils/100 WBC (Bld) 1.7 % 0-5 [facility] Glucose [Mass/Vol] 111 mg/dL 74-106 [facility] Comment on above: Fasting Glucose resu lt from 100 to 125 mg/dL suggests IMPAIRED HOMEOSTASIS per A.D.A. criteria. Hemoglobin (Bld) [Mass/Vol] 14.0 g/dL 13.0-16.5 [facility] Monocytes/100 WBC (Bld) 10.4 % 0-10 [facility] Neutrophils (Bld) [#/Vol] 2.2 10*3/uL 2.0-7.7 [facility] Neutrophils/100 WBC (Bld) 73.5 % 47-70 [facility] Potassium [Moles/Vol] 4.0 mmol/L 3.5-5.1 [facility] Protein [Mass/Vol] 7.0 g/dL 6.4-8.2 [facility] Sodium [Moles/Vol] 138 mmol/L 136-145 [facility] WBC (Bld) [#/Vol] 3.0 10*3/uL 4.4-11.0 [facility] Determination of erythrocyte mean corpuscular volume (MCV)Ordered By: Torri Mendoza on 08-27-2023 MCV (RBC) [Entitic vol] 93.6 fL 80-94 [facility] Erythrocyte distribution wid th ratioOrdered By: Torri Mendoza on 08-27-2023 Erythrocyte distribution width (RBC) [Ratio] 12.8 % 11.6-14.6 [facility] Erythrocyte distribution wid th standard deviationOrdered By: Torri Mendoza on 08-27-2023 Erythrocyte distribution width (RBC) [Entitic vol] 44.5 fL 35.1-43.9 [facility] Hematocrit Auto (Bld) [Volum e fraction]Ordered By: Torri Mendoza on 08-27-2023 Hematocrit (Bld) [Volume fraction] 41.2 % 40-54 [facility] Immature granulocytes/100 WB C Auto (Bld)Ordered By: Torri Mendoza on 08-27-2023 Immature granulocytes/100 WBC (Bld) 0.300 % 0.0-0.9 [facility] Comment on above: IG% - Immature Granu locytes (promyelocytes, myelocytes and metamyelocytes) > 1% indicates that a LEFT SHIFT is Present. Laboratory - Chemistry and C hemistry - challengeOrdered By: Torri Mendoza on 08-27-2023 Albumin/Globulin [Mass ratio] 1.2 {ratio} 0.9-2.4 [facility] ALP [Catalytic activity/Vol] 67 U/L 45-117 [facility] ALT [Catalytic activity/Vol] 30 U/L 16-61 [facility] CO2 [Moles/Vol] 28.0 mmol/L 21.0-32.0 [facility] Cobalamin (Vitamin B12) [Mass/Vol] 1331 pg/mL 211-911 [facility] Globulin (S) [Mass/Vol] 3.2 g/dL 2.2-4.2 [facility] Urea nitrogen/Creatinine [Mass ratio] 17.8 mg/mg 10-20 [facility] - Hematology and Cell countsOrdered By: Torri Mendoza on 08-27-2023 MCH (RBC) [Entitic mass] 31.8 pg 27.0-32.0 [facility] MCHC (RBC) [Mass/Vol] 34.0 g/dL 32-36 [facility] Nucleated RBC/100 WBC (Bld) [Ratio] 0 % 0-5 [facility] Platelet mean volume (Bld) [Entitic vol] 9.0 fL 6.2-12.0 [facility] Platelets (Bld) [#/Vol] 73 10*3/uL 150-450 [facility] No Panel InformationOrdered By: Torri Mendoza on 08-27-2023 Estimated GFR (MDRD) Amer 86 mL/min >60 [facility] Comment on above: GFR Calc Estimated GFR (MDRD) Non-Af Amer 71 mL/min >60 [facility] Comment on above: Non- GFR Calc RBC Auto (Bld) [#/Vol]Ordere d By: Torri Mendoza on 08-27-2023 RBC (Bld) [#/Vol] 4.40 10*6/uL 4.6-6.2 [facility] Review by pathologistOrdered By: Torri Mendoza on 08-27-2023 Pathologist review Javier (Unsp spec) [Interp] Reviewed [facility] Comment on above: Previous reported re sult: Katharine rojas Edited by: RGOSUBHASH on 08/28/23:1230Leukopenia.Mild Thrombocytopenia.Clinical correlation necessary.Guilherme Marquez M.D. 08/28/23 AMENDED REPORT 08/28/23 1230 PATH REV previously reported as: Katharine rojas Serum or plasma calcium myranda urement (mass/volume)Ordered By: Torri Mendoza on 08-27-2023 Calcium [Mass/Vol] 9.6 mg/dL 8.5-10.1 [facility] Serum or plasma creatinine m easurement (mass/volume)Ordered By: Torri Mendoza on 08-27-2023 Creatinine [Mass/Vol] 1.07 mg/dL 0.70-1.30 [facility] Comment on above: The validity of the calculated GFR & GFRAA in patients over 70 years has not been determined. Clinical correlation is essential. Serum or plasma thyroid stim ulating hormone (TSH) measurement (units/volume)Ordered By: Torri Mendoza on 08-27-2023 TSH Qn 2.05 uIU/mL 0.358-3.74 [facility] Serum or plasma urea nitroge n measurement (mass/volume)Ordered By: Torri Mendoza on 08-27-2023 Urea nitrogen [Mass/Vol] 19 mg/dL 7-18 [facility] Thin prep Papanicolaou smear with manual screeningOrdered By: Torri Mendoza on 08-27-2023 Thin prep Papanicolaou smear with manual screening 3.8 g/dL 3.2-5.0 [facility] Thin prep Papanicolaou smear with manual screening 30 U/L 15-37 [facility] Thin prep Papanicolaou smear with manual screening 7 5-15 [facility] Whole blood hemoglobin A1c/t otal hemoglobin ratio (mass fraction)Ordered By: Torri Mendoza on 08-27-2023 HbA1c (Bld) [Mass fraction] 7.4 % 3.8-5.6 [facility] Comment on above: Normal < 5.7 % Predi abetic 5.7 - 6.4 % Diabetic >or= 6.5 % Please note range changes. Basophil percentageOrdered B y: Torri Mendoza on 08-06-2023 Bilirubin [Mass/Vol] 1.70 mg/dL 0.20-1.00 [facility] Comment on above: For patients on eltr ombopag therapy, use of [employer] TBIL is not recommended. Chloride [Moles/Vol] 102 mmol/L 98-107 [facility] Cholesterol [Mass/Vol] 163 mg/dL <200 [facility] Comment on above: <200 mg/dL Desirable 200-240 mg/dL Borderline >240 mg/dL High Risk Glucose [Mass/Vol] 123 mg/dL 74-106 [facility] Comment on above: Fasting Glucose resu lt from 100 to 125 mg/dL suggests IMPAIRED HOMEOSTASIS per A.D.A. criteria. Potassium [Moles/Vol] 4.1 mmol/L 3.5-5.1 [facility] Protein [Mass/Vol] 7.3 g/dL 6.4-8.2 [facility] Sodium [Moles/Vol] 135 mmol/L 136-145 [facility] Triglyceride [Mass/Vol] 306 mg/dL <199 [facility] Comment on above: The drugs N-Acetylcy steine and Metamizole may falsely depress this assay.Serum Triglycerides Reference Interval Normal <150 mg/dL Borderline high 150 - 199 mg/dL High 200 - 499 mg/dL Very High > or = 500 mg/dL High density lipoprotein (HD L) measurementOrdered By: Torri Mendoza on 08-06-2023 Cholesterol in HDL (Body fld) [Mass/Vol] 42 mg/dL >40 [facility] Comment on above: The drugs N-Acetylcy steine and Metamizole may falsely depress this assay. Reference Range HDL <40 mg/dL Low HDL Cholesterol HDL >or= 60 mg/dL High HDL Cholesterol International normalized rat io (INR) calculationOrdered By: Torri Mendoza on 08-06-2023 INR Coag (PPP) [Relative time] 1.1 {INR} [facility] - Chemistry and C hemistry - challengeOrdered By: Torri Mendoza on 08-06-2023 Albumin/Globulin [Mass ratio] 1.0 {ratio} 0.9-2.4 [facility] ALP [Catalytic activity/Vol] 65 U/L 45-117 [facility] ALT [Catalytic activity/Vol] 33 U/L 16-61 [facility] CO2 [Moles/Vol] 29.0 mmol/L 21.0-32.0 [facility] Globulin (S) [Mass/Vol] 3.6 g/dL 2.2-4.2 [facility] Urea nitrogen/Creatinine [Mass ratio] 17.7 mg/mg 10-20 [facility] - CoagulationOrde red By: Torri Mendoza on 08-06-2023 PT Coag (PPP) [Time] 14.5 s 11.7-14.9 [facility] Low density lipoprotein (LDL ) cholesterol measurementOrdered By: Torri Mendoza on 08-06-2023 Cholesterol in LDL (Body fld) [Moles/Vol] 60 mg/dL 0-130 [facility] No Panel InformationOrdered By: Torri Mendoza on 08-06-2023 Estimated GFR (MDRD) Amer 105 mL/min >60 [facility] Comment on above: GFR Calc Estimated GFR (MDRD) Non-Af Amer 87 mL/min >60 [facility] Comment on above: Non- GFR Calc Serum or plasma calcium myranda urement (mass/volume)Ordered By: Torri Mendoza on 08-06-2023 Calcium [Mass/Vol] 9.6 mg/dL 8.5-10.1 [facility] Serum or plasma creatinine m easurement (mass/volume)Ordered By: Torri Mendoza on 08-06-2023 Creatinine [Mass/Vol] 0.90 mg/dL 0.70-1.30 [facility] Comment on above: The validity of the calculated GFR & GFRAA in patients over 70 years has not been determined. Clinical correlation is essential. Serum or plasma urea nitroge n measurement (mass/volume)Ordered By: Torri Mendoza on 08-06-2023 Urea nitrogen [Mass/Vol] 16 mg/dL 7-18 [facility] Thin prep Papanicolaou smear with manual screeningOrdered By: Torri Mendoza on 08-06-2023 Thin prep Papanicolaou smear with manual screening 3.7 g/dL 3.2-5.0 [facility] Thin prep Papanicolaou smear with manual screening 27 U/L 15-37 [facility] Thin prep Papanicolaou smear with manual screening 4 5-15 [facility] Very low density lipoprotein (VLDL) cholesterol measurementOrdered By: Torri Mendoza on 08-06-2023 Cholesterol in VLDL Calc [Moles/Vol] 61 mg/dL 5-40 [facility] Absolute lymphocyte countOrd ered By: Torri Mendoza on 07-30-2023 Lymphocytes Auto (Unsp spec) [#/Vol] 0.45 10*3/uL 0.83-4.51 [facility] Automated lymphocyte count a s percentage of total leukocytesOrdered By: Torri Mendoza on 07-30-2023 Lymphocytes/100 WBC Auto (Unsp spec) 14.6 % 19-41 [facility] [facility] Basophil percentageOrdered B y: Torri Mendoza on 07-30-2023 Basophils/100 WBC (Bld) 0.6 % 0-1 [facility] Eosinophils/100 WBC (Bld) 1.6 % 0-5 [facility] Hemoglobin (Bld) [Mass/Vol] 13.7 g/dL 13.0-16.5 [facility] Monocytes/100 WBC (Bld) 10.7 % 0-10 [facility] Neutrophils (Bld) [#/Vol] 2.2 10*3/uL 2.0-7.7 [facility] Neutrophils/100 WBC (Bld) 72.2 % 47-70 [facility] WBC (Bld) [#/Vol] 3.1 10*3/uL 4.4-11.0 [facility] Blood manual differential co mment interpretation (narrative result)Ordered By: Torri Mendoza on 07-30-2023 Manual differential comment Javier (Bld) [Interp] SCANNED [facility] Determination of erythrocyte mean corpuscular volume (MCV)Ordered By: Torri Mendoza on 07-30-2023 MCV (RBC) [Entitic vol] 95.1 fL 80-94 [facility] Erythrocyte distribution wid th ratioOrdered By: Torri Mendoza on 07-30-2023 Erythrocyte distribution width (RBC) [Ratio] 13.1 % 11.6-14.6 [facility] Erythrocyte distribution wid th standard deviationOrdered By: Trori Mendoza on 07-30-2023 Erythrocyte distribution width (RBC) [Entitic vol] 45.7 fL 35.1-43.9 [facility] Hematocrit Auto (Bld) [Volum e fraction]Ordered By: Torri Mendoza on 07-30-2023 Hematocrit (Bld) [Volume fraction] 40.9 % 40-54 [facility] Immature granulocytes/100 WB C Auto (Bld)Ordered By: Torri Mendoza on 07-30-2023 Immature granulocytes/100 WBC (Bld) 0.300 % 0.0-0.9 [facility] Comment on above: IG% - Immature Granu locytes (promyelocytes, myelocytes and metamyelocytes) > 1% indicates that a LEFT SHIFT is Present. International normalized rat io (INR) calculationOrdered By: Torri Mendoza on 07-30-2023 INR Coag (PPP) [Relative time] 1.1 {INR} [facility] Laboratory - CoagulationOrde red By: Torri Mendoza on 07-30-2023 PT Coag (PPP) [Time] 14.6 s 11.7-14.9 [facility] - Hematology and Cell countsOrdered By: Torri Mendoza on 07-30-2023 MCH (RBC) [Entitic mass] 31.9 pg 27.0-32.0 [facility] MCHC (RBC) [Mass/Vol] 33.5 g/dL 32-36 [facility] Nucleated RBC/100 WBC (Bld) [Ratio] 0 % 0-5 [facility] Platelets (Bld) [#/Vol] 72 10*3/uL 150-450 [facility] Platelet mean volume Sascha-Ec ker (Bld) [Entitic vol]Ordered By: Torri Mendoza on 07-30-2023 Platelet mean volume (Bld) [Entitic vol] 9.0 fL 6.2-12.0 [facility] RBC Auto (Bld) [#/Vol]Ordere d By: Torri Mendoza on 07-30-2023 RBC (Bld) [#/Vol] 4.30 10*6/uL 4.6-6.2 [facility] Review by pathologistOrdered By: Torri Mendoza on 07-30-2023 Pathologist review Javier (Unsp spec) [Interp] Reviewed [facility] Comment on above: LeukopeniaModerate T hrombocytopenia.Clinical correlation necessary.Guilherme Marquez M.D. 07/31/23 International normalized rat io (INR) calculationOrdered By: Torri Mendoza on 07-23-2023 INR Coag (PPP) [Relative time] 1.2 {INR} [facility] - CoagulationOrde red By: Torri Mendoza on 07-23-2023 PT Coag (PPP) [Time] 14.9 s 11.7-14.9 [facility] Absolute lymphocyte countOrd ered By: Manan Mendosa on 01-25-2023 Lymphocytes Auto (Unsp spec) [#/Vol] 0.25 10*3/uL 0.83-4.51 [facility] Basophil percentageOrdered B y: Manan Mendosa on 01-25-2023 Basophils/100 WBC (Bld) 0.4 % 0-1 [facility] Bilirubin [Mass/Vol] 1.10 mg/dL 0.20-1.00 [facility] Comment on above: For patients on eltr ombopag therapy, use of Dimension [place] TBIL is not recommended. Chloride [Moles/Vol] 104 mmol/L 98-107 [facility] Eosinophils/100 WBC (Bld) 0.4 % 0-5 [facility] Glucose [Mass/Vol] 65 mg/dL 74-106 [facility] Neutrophils (Bld) [#/Vol] 1.8 10*3/uL 2.0-7.7 [facility] Neutrophils/100 WBC (Bld) 75.8 % 47-70 [facility] Potassium [Moles/Vol] 3.7 mmol/L 3.5-5.1 [facility] Protein [Mass/Vol] 6.1 g/dL 6.4-8.2 [facility] Sodium [Moles/Vol] 138 mmol/L 136-145 [facility] WBC (Bld) [#/Vol] 2.4 10*3/uL 4.4-11.0 [facility] Blood erythrocytes count (nu mber/volume)Ordered By: Manan Mendosa on 01-25-2023 RBC (Bld) [#/Vol] 3.35 10*6/uL 4.6-6.2 [facility] Blood hemoglobin measurement (mass/volume)Ordered By: Manan Mendosa on 01-25-2023 Hemoglobin (Bld) [Mass/Vol] 10.7 g/dL 13.0-16.5 [facility] Blood lymphocytes/100 leukoc ytesOrdered By: Manan Mendosa on 01-25-2023 Lymphocytes/100 WBC (Bld) 10.6 % 19-41 [facility] Blood manual differential co mment interpretation (narrative result)Ordered By: Manan Mendosa on 01-25-2023 Manual differential comment Javier (Bld) [Interp] SCANNED [facility] Blood monocytes/100 leukocyt esOrdered By: Manan Mendosa on 01-25-2023 Monocytes/100 WBC (Bld) 12.8 % 0-10 [facility] Blood platelet adequacy dete ction by light microscopyOrdered By: Manan Mendosa on 01-25-2023 Platelets LM Ql (Bld) [facility]D [facility] Blood platelet mean volumeOr dered By: Manan Mendosa on 01-25-2023 Platelet mean volume (Bld) [Entitic vol] 9.5 fL 6.2-12.0 [facility] Determination of erythrocyte mean corpuscular volume (MCV)Ordered By: Manan Mendosa on 01-25-2023 MCV (RBC) [Entitic vol] 94.6 fL 80-94 [facility] Glucose Glucometer (BldC) [M ass/Vol]Ordered By: Gertrude Momin on 01-25-2023 Glucose [Mass/Vol] 187 mg/dL 74-106 [facility] Comment on above: MANAGEMENT OF PATIEN T CARE PER NURSING PROTOCOL Hematocrit Auto (Bld) [Volum e fraction]Ordered By: Manan Mendosa on 01-25-2023 Hematocrit (Bld) [Volume fraction] 31.7 % 40-54 [facility] Laboratory - Chemistry and C hemistry - challengeOrdered By: Manan Mendosa on 01-25-2023 ALP [Catalytic activity/Vol] 42 U/L 45-117 [facility] ALT [Catalytic activity/Vol] 30 U/L 16-61 [facility] CO2 [Moles/Vol] 27.0 mmol/L 21.0-32.0 [facility] Free T4 [Mass/Vol] 1.11 ng/dL 0.76-1.46 [facility] Globulin (S) [Mass/Vol] 3.1 g/dL 2.2-4.2 [facility] Urea nitrogen/Creatinine [Mass ratio] 28.4 mg/mg 10-20 [facility] - Hematology and Cell countsOrdered By: Manan Mendosa on 01-25-2023 Erythrocyte distribution width (RBC) [Entitic vol] 47.2 fL 35.1-43.9 [facility] Erythrocyte distribution width (RBC) [Ratio] 13.7 % 11.6-14.6 [facility] Immature granulocytes/100 WBC (Bld) 0.000 % 0.0-0.9 [facility] Comment on above: IG% - Immature Granu locytes (promyelocytes, myelocytes and metamyelocytes) > 1% indicates that a LEFT SHIFT is Present. MCH (RBC) [Entitic mass] 31.9 pg 27.0-32.0 [facility] Nucleated RBC/100 WBC (Bld) [Ratio] 0 % 0-5 [facility] MCHC Auto (RBC) [Mass/Vol]Or dered By: Manan Mendosa on 01-25-2023 MCHC (RBC) [Mass/Vol] 33.8 g/dL 32-36 [facility] No Panel InformationOrdered By: Manan Mendosa on 01-25-2023 Estimated Creatinine Clearance Calc 57.66 ml/min [facility] Estimated GFR (MDRD) Amer 85 mL/min >60 [facility] Comment on above: GFR Calc Estimated GFR (MDRD) Non-Af Amer 70 mL/min >60 [facility] Comment on above: Non- GFR Calc Free Triiodothyronine (T3) pg/dL 1.2 pg/mL 2.18-3.98 [facility] Platelets bldOrdered By: Mireya Mendosa on 01-25-2023 Platelets (Bld) [#/Vol] 52 10*3/uL 150-450 [facility] Review by pathologistOrdered By: Manan Mendosa on 01-25-2023 Pathologist review Javier (Unsp spec) [Interp] Reviewed [facility] Comment on above: Previous reported re sult: Katharine rojas Edited by: RGOSUBHASH on 01/28/23:1356Pancytopenia.Leukopenia and Neutropenia.Macrocytic anemia.ThrombocytopeniaClinical correlation necessary.Guilherme Marquez M.D. 01/28/23 AMENDED REPORT 01/28/23 1356 PATH REV previously reported as: Katharine rojas Serum or plasma albumin myranda urement (mass/volume)Ordered By: Manan Mendosa on 01-25-2023 Albumin [Mass/Vol] 3.0 g/dL 3.2-5.0 [facility] Serum or plasma albumin/glob ulin mass ratioOrdered By: Manan Mendosa on 01-25-2023 Albumin/Globulin [Mass ratio] 1.0 {ratio} 0.9-2.4 [facility] Serum or plasma calcium myranda urement (mass/volume)Ordered By: Manan Mendosa on 01-25-2023 Calcium [Mass/Vol] 8.7 mg/dL 8.5-10.1 [facility] Serum or plasma creatinine m easurement (mass/volume)Ordered By: Manan Mendosa on 01-25-2023 Creatinine [Mass/Vol] 1.09 mg/dL 0.70-1.30 [facility] Comment on above: The validity of the calculated GFR & GFRAA in patients over 70 years has not been determined. Clinical correlation is essential. Serum or plasma urea nitroge n measurement (mass/volume)Ordered By: Manan Mendosa on 01-25-2023 Urea nitrogen [Mass/Vol] 31 mg/dL 7-18 [facility] Thin prep Papanicolaou smear with manual screeningOrdered By: Manan Mendosa on 01-25-2023 Thin prep Papanicolaou smear with manual screening 30 U/L 15-37 [facility] Thin prep Papanicolaou smear with manual screening 7 5-15 [facility] Absolute lymphocyte countOrd ered By: Parvez Thornton on 01-24-2023 Lymphocytes Auto (Unsp spec) [#/Vol] 0.15 10*3/uL 0.83-4.51 [facility] Basophil percentageOrdered B y: Parvez Thornton on 01-24-2023 Basophil percentage 25-50 SEEN /hpf 0-5 [facility] Basophils/100 WBC (Bld) 0.3 % 0-1 [facility] Chloride [Moles/Vol] 99 mmol/L 98-107 [facility] Eosinophils/100 WBC (Bld) 0.0 % 0-5 [facility] Glucose [Mass/Vol] 258 mg/dL 74-106 [facility] Comment on above: Glucose result great er than or equal to 200 mg/dLsuggests DIABETES MELLITUS per A.D.A. criteria. Neutrophils (Bld) [#/Vol] 5.6 10*3/uL 2.0-7.7 [facility] Neutrophils/100 WBC (Bld) 88.6 % 47-70 [facility] Potassium [Moles/Vol] 3.7 mmol/L 3.5-5.1 [facility] Sodium [Moles/Vol] 132 mmol/L 136-145 [facility] WBC (Bld) [#/Vol] 6.3 10*3/uL 4.4-11.0 [facility] Bilirubin Test strip Ql (U)O rdered By: Parvez Thornton on 01-24-2023 Bilirubin Ql (U) 1 mg/dL Negative [facility] Comment on above: COLOR OF URINE MAY A FFECT DIPSTICK RESULTS. Blood erythrocytes count (nu mber/volume)Ordered By: Parvez Thornton on 01-24-2023 RBC (Bld) [#/Vol] 3.99 10*6/uL 4.6-6.2 [facility] Blood hemoglobin measurement (mass/volume)Ordered By: Parvez Thornton on 01-24-2023 Hemoglobin (Bld) [Mass/Vol] 12.6 g/dL 13.0-16.5 [facility] Blood lymphocytes/100 leukoc ytesOrdered By: Parvez Thornton on 01-24-2023 Lymphocytes/100 WBC (Bld) 2.4 % 19-41 [facility] Blood manual differential co mment interpretation (narrative result)Ordered By: Parvez Thornton on 01-24-2023 Manual differential comment Javier (Bld) [Interp] COMMENT [facility] Comment on above: LYMPHOPENIA. Blood monocytes/100 leukocyt esOrdered By: Parvez Thornton on 01-24-2023 Monocytes/100 WBC (Bld) 8.5 % 0-10 [facility] Blood platelet adequacy dete ction by light microscopyOrdered By: Parvez Thornton on 01-24-2023 Platelets LM Ql (Bld) MOD DEC ADEQ [facility] Blood platelet mean volumeOr dered By: Parvez Thornton on 01-24-2023 Platelet mean volume (Bld) [Entitic vol] 9.1 fL 6.2-12.0 [facility] Culture, urineOrdered By: Link Thornton on 01-24-2023 Bacteria identified Cx Nom (U) Escherichia coli [facility] Determination of erythrocyte mean corpuscular volume (MCV)Ordered By: Parvez Thornton on 01-24-2023 MCV (RBC) [Entitic vol] 95.0 fL 80-94 [facility] Hematocrit Auto (Bld) [Volum e fraction]Ordered By: Parvez Thornton on 01-24-2023 Hematocrit (Bld) [Volume fraction] 37.9 % 40-54 [facility] Hyaline casts LM.LPF (Urine sed) [#/Area]Ordered By: Parvez Thornton on 01-24-2023 Hyaline casts (Urine sed) [#/Area] 0 /[LPF] 0-5 [facility] INR in Blood by Coagulation assayOrdered By: Parvez Thornton on 01-24-2023 INR Coag (Bld) [Relative time] 1.2 {INR} [facility] Ketones Test strip Ql (U)Ord ered By: Parvez Thornton on 01-24-2023 Ketones Ql (U) 15 mg/dl Negative [facility] Laboratory - Chemistry and C hemistry - challengeOrdered By: Manan Mendosa on 01-24-2023 Cobalamin (Vitamin B12) [Mass/Vol] 932 pg/mL 211-911 [facility] - Chemistry and C hemistry - challengeOrdered By: Parvez Thornton on 01-24-2023 CO2 [Moles/Vol] 25.0 mmol/L 21.0-32.0 [facility] Free T4 [Mass/Vol] 1.23 ng/dL 0.76-1.46 [facility] Urea nitrogen/Creatinine [Mass ratio] 17.1 mg/mg 10- [facility] - CoagulationOrde red By: Parvez Thornton on 01-24-2023 aPTT Coag (Bld) [Time] 30.3 s 24.1-36.2 [facility] PT Coag (PPP) [Time] 15.5 s 11.7-14.9 [facility] - Hematology and Cell countsOrdered By: Parvez Thornton on 01-24-2023 Erythrocyte distribution width (RBC) [Entitic vol] 47.0 fL 35.1-43.9 [facility] Erythrocyte distribution width (RBC) [Ratio] 13.3 % 11.6-14.6 [facility] Immature granulocytes/100 WBC (Bld) 0.200 % 0.0-0.9 [facility] Comment on above: IG% - Immature Granu locytes (promyelocytes, myelocytes and metamyelocytes) > 1% indicates that a LEFT SHIFT is Present. MCH (RBC) [Entitic mass] 31.6 pg 27.0-32.0 [facility] Nucleated RBC/100 WBC (Bld) [Ratio] 0 % 0-5 [facility] MCHC Auto (RBC) [Mass/Vol]Or dered By: Parvez Thornton on 01-24-2023 MCHC (RBC) [Mass/Vol] 33.2 g/dL 32-36 [facility] Mucus LM Ql (Urine sed)Order ed By: Parvez Thornton on 01-24-2023 Mucus Ql (Urine sed) 0 SEEN /hpf [facility] Nitrite Test strip Ql (U)Ord ered By: Parvez Thornton on 01-24-2023 Nitrite Ql (U) Positive Negative [facility] No Panel InformationOrdered By: Parvez Thornton on 01-24-2023 Estimated Creatinine Clearance Calc 44.89 ml/min [facility] Estimated GFR (MDRD) Amer 63 mL/min >60 [facility] Comment on above: GFR Calc Estimated GFR (MDRD) Non-Af Amer 52 mL/min >60 [facility] Comment on above: Non- GFR Calc Thyroid Stimulating Hormone (TSH) 0.33 uIU/mL 0.358-3.74 [facility] Platelets bldOrdered By: Ok Thornton on 01-24-2023 Platelets (Bld) [#/Vol] 63 10*3/uL 150-450 [facility] Protein Test strip Ql (U)Ord ered By: Parvez Thornton on 01-24-2023 Protein Ql (U) 100 mg/dl Negative [facility] Serum or plasma calcium myranda urement (mass/volume)Ordered By: Parvez Thornton on 01-24-2023 Calcium [Mass/Vol] 9.5 mg/dL 8.5-10.1 [facility] Serum or plasma creatinine m easurement (mass/volume)Ordered By: Parvez Thornton on 01-24-2023 Creatinine [Mass/Vol] 1.40 mg/dL 0.70-1.30 [facility] Comment on above: The validity of the calculated GFR & GFRAA in patients over 70 years has not been determined. Clinical correlation is essential. Serum or plasma urea nitroge n measurement (mass/volume)Ordered By: Parvez Thornton on 01-24-2023 Urea nitrogen [Mass/Vol] 24 mg/dL 7-18 [facility] Squamous epithelial cells de tection in urine sediment by light microscopyOrdered By: Parvez Thornton on 01-24-2023 Epithelial cells.squamous LM Ql (Urine sed) 0-5 SEEN /hpf 0-5 [facility] Thin prep Papanicolaou smear with manual screeningOrdered By: Parvez Thornton on 01-24-2023 Thin prep Papanicolaou smear with manual screening 8 5-15 [facility] Urine blood detectionOrdered By: Parvez Thornton on 01-24-2023 RBC Ql (U) 25 /ul Negative [facility] RBC Ql (U) 0-5 SEEN /hpf 0-5 [facility] Urine clarityOrdered By: Ok Thornton on 01-24-2023 Clarity (U) Cloudy Clear [facility] Urine color determinationOrd ered By: Parvez Thornton on 01-24-2023 Color (U) Yellow Yellow [facility] Urine glucose detectionOrder ed By: Parvez Thornton on 01-24-2023 Glucose Ql (U) 250 mg/dl Normal [facility] Urine leukocyte esterase det ection by dipstickOrdered By: Parvez Thornton on 01-24-2023 Leukocyte esterase Test strip Ql (U) 500 /ul Negative [facility] Urine pHOrdered By: Parvez Thornton on 01-24-2023 pH (U) 5.0 [pH] 5.0 - 8.0 [facility] Urine sediment bacteria coun t by microscopy (number/high power field)Ordered By: Parvez Thornton on 01-24-2023 Bacteria LM.HPF (Urine sed) [#/Area] 3 /[HPF] None Seen [facility] Urine specific gravity measu rementOrdered By: Parvez Thornton on 01-24-2023 Specific gravity (U) [Rel density] 1.020 1.002-1.03 0 [facility] Urobilinogen Auto test strip Ql (U)Ordered By: Parvez Thornton on 01-24-2023 Urobilinogen Ql (U) 1 mg/dl Normal [facility] Absolute lymphocyte countOrd ered By: Clay Kidd on 01-05-2023 Lymphocytes Auto (Unsp spec) [#/Vol] 0.34 10*3/uL 0.83-4.51 [facility] Basophil percentageOrdered B y: Clay Kidd on 01-05-2023 Basophil percentage 50-100 SEEN /hpf 0-5 [facility] Basophils/100 WBC (Bld) 0.1 % 0-1 [facility] Bilirubin [Mass/Vol] 2.80 mg/dL 0.20-1.00 [facility] Comment on above: For patients on eltr ombopag therapy, use of Dimension [place] TBIL is not recommended. Chloride [Moles/Vol] 95 mmol/L 98-107 [facility] Eosinophils/100 WBC (Bld) 0.0 % 0-5 [facility] Glucose [Mass/Vol] 166 mg/dL 74-106 [facility] Comment on above: Fasting Glucose resu lt greater than or equal to 126 mg/dL suggests DIABETES MELLITUS per A.D.A. criteria. Neutrophils (Bld) [#/Vol] 6.6 10*3/uL 2.0-7.7 [facility] Neutrophils/100 WBC (Bld) 87.8 % 47-70 [facility] Potassium [Moles/Vol] 3.7 mmol/L 3.5-5.1 [facility] Protein [Mass/Vol] 7.8 g/dL 6.4-8.2 [facility] Sodium [Moles/Vol] 131 mmol/L 136-145 [facility] WBC (Bld) [#/Vol] 7.5 10*3/uL 4.4-11.0 [facility] Bilirubin Test strip Ql (U)O rdered By: Clay Kidd on 01-05-2023 Bilirubin Ql (U) Negative Negative [facility] Blood erythrocytes count (nu mber/volume)Ordered By: Clay Kidd on 01-05-2023 RBC (Bld) [#/Vol] 4.16 10*6/uL 4.6-6.2 [facility] Blood hemoglobin measurement (mass/volume)Ordered By: Clay Kidd on 01-05-2023 Hemoglobin (Bld) [Mass/Vol] 13.4 g/dL 13.0-16.5 [facility] Blood lymphocytes/100 leukoc ytesOrdered By: Clay Kidd on 01-05-2023 Lymphocytes/100 WBC (Bld) 4.5 % 19-41 [facility] Blood manual differential co mment interpretation (narrative result)Ordered By: Clay Kidd on 01-05-2023 Manual differential comment Javier (Bld) [Interp] SCANNED [facility] Blood monocytes/100 leukocyt esOrdered By: Clay Kidd on 01-05-2023 Monocytes/100 WBC (Bld) 6.7 % 0-10 [facility] Blood platelet mean volumeOr dered By: Clay iKdd on 01-05-2023 Platelet mean volume (Bld) [Entitic vol] 8.9 fL 6.2-12.0 [facility] Culture, urineOrdered By: Randi Kidd on 01-05-2023 Bacteria identified Cx Nom (U) Escherichia coli [facility] Determination of erythrocyte mean corpuscular volume (MCV)Ordered By: Clay Kidd on 01-05-2023 MCV (RBC) [Entitic vol] 94.2 fL 80-94 [facility] Hematocrit Auto (Bld) [Volum e fraction]Ordered By: Clay Kidd on 01-05-2023 Hematocrit (Bld) [Volume fraction] 39.2 % 40-54 [facility] Ketones Test strip Ql (U)Ord ered By: Clay Kidd on 01-05-2023 Ketones Ql (U) 50 mg/dl Negative [facility] Laboratory - Chemistry and C hemistry - challengeOrdered By: Clay Kidd on 01-05-2023 ALP [Catalytic activity/Vol] 74 U/L 45-117 [facility] ALT [Catalytic activity/Vol] 35 U/L 16-61 [facility] CO2 [Moles/Vol] 25.0 mmol/L 21.0-32.0 [facility] Globulin (S) [Mass/Vol] 4.1 g/dL 2.2-4.2 [facility] Lipase [Catalytic activity/Vol] 48 U/L 13-75 [facility] Comment on above: Please note:LIPASE r evised reference range effective 22. New Lipase methodology. Expected to produce lower values than the previous assay method. NEW Reference Range: 13 - 75 U/L Urea nitrogen/Creatinine [Mass ratio] 15.3 mg/mg 10-20 [facility] - Hematology and Cell countsOrdered By: Clay Kidd on 01-05-2023 Erythrocyte distribution width (RBC) [Entitic vol] 46.4 fL 35.1-43.9 [facility] Erythrocyte distribution width (RBC) [Ratio] 13.4 % 11.6-14.6 [facility] Immature granulocytes/100 WBC (Bld) 0.900 % 0.0-0.9 [facility] Comment on above: IG% - Immature Granu locytes (promyelocytes, myelocytes and metamyelocytes) > 1% indicates that a LEFT SHIFT is Present. MCH (RBC) [Entitic mass] 32.2 pg 27.0-32.0 [facility] Nucleated RBC/100 WBC (Bld) [Ratio] 0 % 0-5 [facility] MCHC Auto (RBC) [Mass/Vol]Or dered By: Clay Kidd on 01-05-2023 MCHC (RBC) [Mass/Vol] 34.2 g/dL 32-36 [facility] Mucus LM Ql (Urine sed)Order ed By: Clay Kidd on 01-05-2023 Mucus Ql (Urine sed) 0 SEEN /hpf [facility] Nitrite Test strip Ql (U)Ord ered By: Clay Kidd on 01-05-2023 Nitrite Ql (U) Positive Negative [facility] No Panel InformationOrdered By: Clay Kidd on 01-05-2023 Troponin I High Sensitivity 13 pg/mL 3.0-78.0 [facility] Comment on above: Please Note: New [place] t Units and Gender Specific Reference Ranges. For more information see Policy Stat Procedure [place] High Sensitivity Troponin (TNIH) and attachments. Estimated Creatinine Clearance Calc 50.68 ml/min [facility] Estimated GFR (MDRD) Amer 73 mL/min >60 [facility] Comment on above: GFR Calc Estimated GFR (MDRD) Non-Af Amer 60 mL/min >60 [facility] Comment on above: Non- GFR Calc Ethyl Alcohol Level < 3.0 mg/dL [facility] Comment on above: The serum:whole bloo d ethanol ratio is approximately 1.14and varies slightly with hematocrit. Medical Alcohol reference interval and critical value innon-tolerant individuals; 50 - 100 Impairment 100 Intoxication 100 - 250 Severe Poisoning 250 - 400 Deep/possible fatal coma Platelets bldOrdered By: Rozina Kidd on 01-05-2023 Platelets (Bld) [#/Vol] 68 10*3/uL 150-450 [facility] Protein Test strip Ql (U)Ord ered By: Clay Kidd on 01-05-2023 Protein Ql (U) 100 mg/dl Negative [facility] Serum or plasma albumin myranda urement (mass/volume)Ordered By: Clay Kidd on 01-05-2023 Albumin [Mass/Vol] 3.7 g/dL 3.2-5.0 [facility] Serum or plasma albumin/glob ulin mass ratioOrdered By: Clay Kidd on 01-05-2023 Albumin/Globulin [Mass ratio] 0.9 {ratio} 0.9-2.4 [facility] Serum or plasma calcium myranda urement (mass/volume)Ordered By: Clay Kidd on 01-05-2023 Calcium [Mass/Vol] 9.3 mg/dL 8.5-10.1 [facility] Serum or plasma creatinine m easurement (mass/volume)Ordered By: Clay Kidd on 01-05-2023 Creatinine [Mass/Vol] 1.24 mg/dL 0.70-1.30 [facility] Comment on above: The validity of the calculated GFR & GFRAA in patients over 70 years has not been determined. Clinical correlation is essential. Serum or plasma urea nitroge n measurement (mass/volume)Ordered By: Clay Kidd on 01-05-2023 Urea nitrogen [Mass/Vol] 19 mg/dL 7-18 [facility] Squamous epithelial cells de tection in urine sediment by light microscopyOrdered By: Clay Kidd on 01-05-2023 Epithelial cells.squamous LM Ql (Urine sed) 0 SEEN /hpf 0-5 [facility] Thin prep Papanicolaou smear with manual screeningOrdered By: Clay Kidd on 01-05-2023 Thin prep Papanicolaou smear with manual screening 29 U/L 15-37 [facility] Thin prep Papanicolaou smear with manual screening 11 5-15 [facility] Urine blood detectionOrdered By: Clay Kidd on 01-05-2023 RBC Ql (U) 50 /ul Negative [facility] RBC Ql (U) 0 SEEN /hpf 0-5 [facility] Urine clarityOrdered By: Rozina Kidd on 01-05-2023 Clarity (U) Clear Clear [facility] Urine color determinationOrd ered By: Clay Kidd on 01-05-2023 Color (U) Yellow Yellow [facility] Urine glucose detectionOrder ed By: Clay Kidd on 01-05-2023 Glucose Ql (U) 100 mg/dl Normal [facility] Urine leukocyte esterase det ection by dipstickOrdered By: Clay Kidd on 01-05-2023 Leukocyte esterase Test strip Ql (U) 500 /ul Negative [facility] Urine pHOrdered By: Clay Chang gur on 01-05-2023 pH (U) 5.0 [pH] 5.0 - 8.0 [facility] Urine sediment bacteria coun t by microscopy (number/high power field)Ordered By: Clay Kidd on 01-05-2023 Bacteria LM.HPF (Urine sed) [#/Area] 2 /[HPF] None Seen [facility] Urine specific gravity measu rementOrdered By: Clay Kidd on 01-05-2023 Specific gravity (U) [Rel density] 1.020 1.002-1.03 0 [facility] Urobilinogen Auto test strip Ql (U)Ordered By: Clay Kidd on 01-05-2023 Urobilinogen Ql (U) Normal mg/dl Normal [facility] Basophil percentageOrdered B y: Abilio Manrique on 12-17-2022 Basophil percentage 0 SEEN /hpf 0-5 [facility] Bilirubin Test strip Ql (U)O rdered By: Abilio Manrique on 12-17-2022 Bilirubin Ql (U) Negative Negative [facility] Ketones Test strip Ql (U)Ord ered By: Abilio Manrique on 12-17-2022 Ketones Ql (U) Negative Negative [facility] Mucus LM Ql (Urine sed)Order ed By: Abilio Manrique on 12-17-2022 Mucus Ql (Urine sed) 0 SEEN /hpf [facility] Nitrite Test strip Ql (U)Ord ered By: Abilio Manrique on 12-17-2022 Nitrite Ql (U) Negative Negative [facility] Protein Test strip Ql (U)Ord ered By: Abilio Manrique on 12-17-2022 Protein Ql (U) 30 mg/dl Negative [facility] Squamous epithelial cells de tection in urine sediment by light microscopyOrdered By: Abilio Manrique on 12-17-2022 Epithelial cells.squamous LM Ql (Urine sed) 0 SEEN /hpf 0-5 [facility] Urine blood detectionOrdered By: Abilio Manrique on 12-17-2022 RBC Ql (U) 25 /ul Negative [facility] RBC Ql (U) 0-5 SEEN /hpf 0-5 [facility] Urine clarityOrdered By: Fazal Manrique on 12-17-2022 Clarity (U) Clear Clear [facility] Urine color determinationOrd ered By: Abilio Manrique on 12-17-2022 Color (U) Yellow Yellow [facility] Urine glucose detectionOrder ed By: Abilio Manrique on 12-17-2022 Glucose Ql (U) 1000 mg/dl Normal [facility] Urine leukocyte esterase det ection by dipstickOrdered By: Abilio Manrique on 12-17-2022 Leukocyte esterase Test strip Ql (U) Negative Negative [facility] Urine pHOrdered By: Abilio Lea ndes on 12-17-2022 pH (U) 6.0 [pH] 5.0 - 8.0 [facility] Urine sediment bacteria coun t by microscopy (number/high power field)Ordered By: Abilio Manrique on 12-17-2022 Bacteria LM.HPF (Urine sed) [#/Area] 0 /[HPF] None Seen [facility] Urine specific gravity measu rementOrdered By: Abilio Manrique on 12-17-2022 Specific gravity (U) [Rel density] 1.015 1.002-1.03 0 [facility] Urobilinogen Auto test strip Ql (U)Ordered By: Abilio Manrique on 12-17-2022 Urobilinogen Ql (U) Normal mg/dl Normal [facility] Absolute lymphocyte countOrd ered By: Abilio Manrique on 12-16-2022 Lymphocytes Auto (Unsp spec) [#/Vol] 0.31 10*3/uL 0.83-4.51 [facility] Basophil percentageOrdered B y: Abilio Manrique on 12-16-2022 Basophils/100 WBC (Bld) 0.2 % 0-1 [facility] Chloride [Moles/Vol] 103 mmol/L 98-107 [facility] Eosinophils/100 WBC (Bld) 0.2 % 0-5 [facility] Glucose [Mass/Vol] 257 mg/dL 74-106 [facility] Comment on above: Glucose result great er than or equal to 200 mg/dLsuggests DIABETES MELLITUS per A.D.A. criteria. Neutrophils (Bld) [#/Vol] 4.9 10*3/uL 2.0-7.7 [facility] Neutrophils/100 WBC (Bld) 84.7 % 47-70 [facility] Potassium [Moles/Vol] 3.8 mmol/L 3.5-5.1 [facility] Sodium [Moles/Vol] 139 mmol/L 136-145 [facility] WBC (Bld) [#/Vol] 5.8 10*3/uL 4.4-11.0 [facility] Blood erythrocytes count (nu mber/volume)Ordered By: Abilio Manrique on 12-16-2022 RBC (Bld) [#/Vol] 3.86 10*6/uL 4.6-6.2 [facility] Blood hemoglobin measurement (mass/volume)Ordered By: Abilio Manrique on 12-16-2022 Hemoglobin (Bld) [Mass/Vol] 12.4 g/dL 13.0-16.5 [facility] Blood lymphocytes/100 leukoc ytesOrdered By: Abilio Manrique on 12-16-2022 Lymphocytes/100 WBC (Bld) 5.4 % 19-41 [facility] Blood monocytes/100 leukocyt esOrdered By: Abilio Manrique on 12-16-2022 Monocytes/100 WBC (Bld) 9.0 % 0-10 [facility] Blood platelet adequacy dete ction by light microscopyOrdered By: Abilio Manrique on 12-16-2022 Platelets LM Ql (Bld) MOD DEC ADEQ [facility] Blood platelet mean volumeOr dered By: Abilio Manrique on 12-16-2022 Platelet mean volume (Bld) [Entitic vol] 8.8 fL 6.2-12.0 [facility] Determination of erythrocyte mean corpuscular volume (MCV)Ordered By: Abilio Manrique on 12-16-2022 MCV (RBC) [Entitic vol] 94.8 fL 80-94 [facility] Hematocrit Auto (Bld) [Volum e fraction]Ordered By: Abilio Manrique on 12-16-2022 Hematocrit (Bld) [Volume fraction] 36.6 % 40-54 [facility] Laboratory - Chemistry and C hemistry - challengeOrdered By: Abilio Manrique on 12-16-2022 CO2 [Moles/Vol] 28.0 mmol/L 21.0-32.0 [facility] Urea nitrogen/Creatinine [Mass ratio] 18.4 mg/mg 10-20 [facility] - Hematology and Cell countsOrdered By: Abilio Manrique on 12-16-2022 Erythrocyte distribution width (RBC) [Entitic vol] 46.3 fL 35.1-43.9 [facility] Erythrocyte distribution width (RBC) [Ratio] 13.3 % 11.6-14.6 [facility] Immature granulocytes/100 WBC (Bld) 0.500 % 0.0-0.9 [facility] Comment on above: IG% - Immature Granu locytes (promyelocytes, myelocytes and metamyelocytes) > 1% indicates that a LEFT SHIFT is Present. MCH (RBC) [Entitic mass] 32.1 pg 27.0-32.0 [facility] Nucleated RBC/100 WBC (Bld) [Ratio] 0 % 0-5 [facility] MCHC Auto (RBC) [Mass/Vol]Or dered By: Abilio Manrique on 12-16-2022 MCHC (RBC) [Mass/Vol] 33.9 g/dL 32-36 [facility] Macrocytes detectionOrdered By: Abilio Manrique on 12-16-2022 Macrocytes Ql (Bld) RARE [facility] No Panel InformationOrdered By: Abilio Manrique on 12-16-2022 Estimated Creatinine Clearance Calc 54.17 ml/min [facility] Estimated GFR (MDRD) Amer 80 mL/min >60 [facility] Comment on above: GFR Calc Estimated GFR (MDRD) Non-Af Amer 66 mL/min >60 [facility] Comment on above: Non- GFR Calc Platelets bldOrdered By: Fazal Manrique on 12-16-2022 Platelets (Bld) [#/Vol] 73 10*3/uL 150-450 [facility] Serum or plasma acetone myranda urement (mass/volume)Ordered By: Abilio Manrique on 12-16-2022 Acetone [Mass/Vol] Negative NEG [facility] Serum or plasma calcium myranda urement (mass/volume)Ordered By: Abilio Manrique on 12-16-2022 Calcium [Mass/Vol] 9.3 mg/dL 8.5-10.1 [facility] Serum or plasma creatinine m easurement (mass/volume)Ordered By: Abilio Manrique on 12-16-2022 Creatinine [Mass/Vol] 1.14 mg/dL 0.70-1.30 [facility] Comment on above: The validity of the calculated GFR & GFRAA in patients over 70 years has not been determined. Clinical correlation is essential. Serum or plasma urea nitroge n measurement (mass/volume)Ordered By: Abilio Manrique on 12-16-2022 Urea nitrogen [Mass/Vol] 21 mg/dL 7-18 [facility] Thin prep Papanicolaou smear with manual screeningOrdered By: Abilioleta Manrique on 12-16-2022 Thin prep Papanicolaou smear with manual screening 8 5-15 [facility] Absolute lymphocyte countOrd ered By: Dr. López on 09-20-2022 Lymphocytes Auto (Unsp spec) [#/Vol] 0.26 10*3/uL 0.83-4.51 [facility] Basophil percentageOrdered B y: Dr. López on 09-20-2022 Basophil percentage 3.2 mg/dL 2.5-4.9 [facility] Basophils/100 WBC (Bld) 0.3 % 0-1 [facility] Chloride [Moles/Vol] 100 mmol/L 98-107 [facility] Eosinophils/100 WBC (Bld) 0.0 % 0-5 [facility] Glucose [Mass/Vol] 220 mg/dL 74-106 [facility] Comment on above: Glucose result great er than or equal to 200 mg/dLsuggests DIABETES MELLITUS per A.D.A. criteria. Neutrophils (Bld) [#/Vol] 3.0 10*3/uL 2.0-7.7 [facility] Neutrophils/100 WBC (Bld) 86.7 % 47-70 [facility] Potassium [Moles/Vol] 4.2 mmol/L 3.5-5.1 [facility] Sodium [Moles/Vol] 135 mmol/L 136-145 [facility] WBC (Bld) [#/Vol] 3.5 10*3/uL 4.4-11.0 [facility] Blood erythrocytes count (nu mber/volume)Ordered By: Dr. López on 09-20-2022 RBC (Bld) [#/Vol] 3.26 10*6/uL 4.6-6.2 [facility] Blood hemoglobin measurement (mass/volume)Ordered By: Dr. López on 09-20-2022 Hemoglobin (Bld) [Mass/Vol] 10.5 g/dL 13.0-16.5 [facility] Blood lymphocytes/100 leukoc ytesOrdered By: Dr. López on 09-20-2022 Lymphocytes/100 WBC (Bld) 7.5 % 19-41 [facility] Blood manual differential co mment interpretation (narrative result)Ordered By: Dr. López on 09-20-2022 Manual differential comment Javier (Bld) [Interp] SCANNED [facility] Blood monocytes/100 leukocyt esOrdered By: Dr. López on 09-20-2022 Monocytes/100 WBC (Bld) 5.2 % 0-10 [facility] Blood platelet adequacy dete ction by light microscopyOrdered By: Dr. López on 09-20-2022 Platelets LM Ql (Bld) MOD DEC ADEQ [facility] Blood platelet mean volumeOr dered By: Dr. López on 09-20-2022 Platelet mean volume (Bld) [Entitic vol] 8.4 fL 6.2-12.0 [facility] Determination of erythrocyte mean corpuscular volume (MCV)Ordered By: Dr. López on 09-20-2022 MCV (RBC) [Entitic vol] 94.8 fL 80-94 [facility] Glucose Glucometer (BldC) [M ass/Vol]Ordered By: Dr. López on 09-20-2022 Glucose [Mass/Vol] 175 mg/dL 74-106 [facility] Comment on above: MANAGEMENT OF PATIEN T CARE PER NURSING PROTOCOL Hematocrit Auto (Bld) [Volum e fraction]Ordered By: Dr. López on 09-20-2022 Hematocrit (Bld) [Volume fraction] 30.9 % 40-54 [facility] Laboratory - Chemistry and C hemistry - challengeOrdered By: Dr. López on 09-20-2022 CO2 [Moles/Vol] 25.0 mmol/L 21.0-32.0 [facility] Magnesium [Mass/Vol] 1.5 mg/dL 1.6-2.6 [facility] Urea nitrogen/Creatinine [Mass ratio] 18.9 mg/mg 10-20 [facility] - Hematology and Cell countsOrdered By: Dr. López on 09-20-2022 Erythrocyte distribution width (RBC) [Entitic vol] 44.1 fL 35.1-43.9 [facility] Erythrocyte distribution width (RBC) [Ratio] 12.8 % 11.6-14.6 [facility] Immature granulocytes/100 WBC (Bld) 0.300 % 0.0-0.9 [facility] Comment on above: IG% - Immature Granu locytes (promyelocytes, myelocytes and metamyelocytes) > 1% indicates that a LEFT SHIFT is Present. MCH (RBC) [Entitic mass] 32.2 pg 27.0-32.0 [facility] Nucleated RBC/100 WBC (Bld) [Ratio] 0 % 0-5 [facility] MCHC Auto (RBC) [Mass/Vol]Or dered By: Dr. López on 09-20-2022 MCHC (RBC) [Mass/Vol] 34.0 g/dL 32-36 [facility] No Panel InformationOrdered By: Dr. López on 09-20-2022 Estimated Creatinine Clearance Calc 50.26 ml/min [facility] Estimated GFR (MDRD) Amer 71 mL/min >60 [facility] Comment on above: GFR Calc Estimated GFR (MDRD) Non-Af Amer 59 mL/min >60 [facility] Comment on above: Non- GFR Calc Platelets bldOrdered By: Dr. López on 09-20-2022 Platelets (Bld) [#/Vol] 68 10*3/uL 150-450 [facility] Review by pathologistOrdered By: Dr. López on 09-20-2022 Pathologist review Javier (Unsp spec) [Interp] Reviewed [facility] Comment on above: Previous reported re sult: Katharine rojas Edited by: RGOSUBHASH on 09/20/22:1213Pancytopenia.Leukopenia Macrocytic anemia.Moderate ThrombocytopeniaClinical correlation necessary.Guilherme Marquez M.D. 03/16/23 AMENDED REPORT 09/20/22 1213 PATH REV previously reported as: May foll Serum or plasma calcium myranda urement (mass/volume)Ordered By: Dr. López on 09-20-2022 Calcium [Mass/Vol] 8.9 mg/dL 8.5-10.1 [facility] Serum or plasma creatinine m easurement (mass/volume)Ordered By: Dr. López on 09-20-2022 Creatinine [Mass/Vol] 1.27 mg/dL 0.70-1.30 [facility] Comment on above: The validity of the calculated GFR & GFRAA in patients over 70 years has not been determined. Clinical correlation is essential. Serum or plasma urea nitroge n measurement (mass/volume)Ordered By: Dr. López on 09-20-2022 Urea nitrogen [Mass/Vol] 24 mg/dL 7-18 [facility] Thin prep Papanicolaou smear with manual screeningOrdered By: Dr. López on 09-20-2022 Thin prep Papanicolaou smear with manual screening 10 5-15 [facility] No Panel InformationOrdered By: Dr. López on 09-19-2022 Activated Clotting Time 287 sec 74-137 [facility] Whole blood hemoglobin A1c/t otal hemoglobin ratio (mass fraction)Ordered By: Dr. Roberts on 09-14-2022 HbA1c (Bld) [Mass fraction] 8.3 % 3.8-5.6 [facility] Comment on above: Normal < 5.7 % Predi abetic 5.7 - 6.4 % Diabetic >or= 6.5 % Please note range changes. Absolute lymphocyte countOrd ered By: Dr. Kirkpatrick on 09-06-2022 Lymphocytes Auto (Unsp spec) [#/Vol] 0.40 10*3/uL 0.83-4.51 [facility] Basophil percentageOrdered B y: Dr. Kirkpatrick on 09-06-2022 Basophils/100 WBC (Bld) 0.6 % 0-1 [facility] Chloride [Moles/Vol] 102 mmol/L 98-107 [facility] Eosinophils/100 WBC (Bld) 1.2 % 0-5 [facility] Glucose [Mass/Vol] 217 mg/dL 74-106 [facility] Comment on above: Glucose result great er than or equal to 200 mg/dLsuggests DIABETES MELLITUS per A.D.A. criteria. Neutrophils (Bld) [#/Vol] 2.5 10*3/uL 2.0-7.7 [facility] Neutrophils/100 WBC (Bld) 75.0 % 47-70 [facility] Potassium [Moles/Vol] 4.1 mmol/L 3.5-5.1 [facility] Sodium [Moles/Vol] 137 mmol/L 136-145 [facility] WBC (Bld) [#/Vol] 3.3 10*3/uL 4.4-11.0 [facility] Blood erythrocytes count (nu mber/volume)Ordered By: Dr. Kirkpatrick on 09-06-2022 RBC (Bld) [#/Vol] 4.18 10*6/uL 4.6-6.2 [facility] Blood hemoglobin measurement (mass/volume)Ordered By: Dr. Kirkpatrick on 09-06-2022 Hemoglobin (Bld) [Mass/Vol] 13.6 g/dL 13.0-16.5 [facility] Blood lymphocytes/100 leukoc ytesOrdered By: Dr. Kirkpatrick on 09-06-2022 Lymphocytes/100 WBC (Bld) 12.2 % 19-41 [facility] Blood manual differential co mment interpretation (narrative result)Ordered By: Dr. Kirkpatrick on 09-06-2022 Manual differential comment Javier (Bld) [Interp] SCANNED [facility] Blood monocytes/100 leukocyt esOrdered By: Dr. Kirkpatrick on 09-06-2022 Monocytes/100 WBC (Bld) 10.7 % 0-10 [facility] Blood platelet adequacy dete ction by light microscopyOrdered By: Dr. Kirkpatrick on 09-06-2022 Platelets LM Ql (Bld) MOD DEC ADEQ [facility] Blood platelet mean volumeOr dered By: Dr. Kirkpatrick on 09-06-2022 Platelet mean volume (Bld) [Entitic vol] 8.9 fL 6.2-12.0 [facility] Determination of erythrocyte mean corpuscular volume (MCV)Ordered By: Dr. Kirkpatrick on 09-06-2022 MCV (RBC) [Entitic vol] 95.2 fL 80-94 [facility] Glucose Glucometer (BldC) [M ass/Vol]Ordered By: Dr. Kirkpatrick on 09-06-2022 Glucose [Mass/Vol] 199 mg/dL 74-106 [facility] Comment on above: MANAGEMENT OF PATIEN T CARE PER NURSING PROTOCOL Hematocrit Auto (Bld) [Volum e fraction]Ordered By: Dr. Kirkpatrick on 09-06-2022 Hematocrit (Bld) [Volume fraction] 39.8 % 40-54 [facility] INR in Blood by Coagulation assayOrdered By: Dr. Kirkpatrick on 09-06-2022 INR Coag (Bld) [Relative time] 1.2 {INR} [facility] Laboratory - Chemistry and C hemistry - challengeOrdered By: Dr. Kirkpatrick on 09-06-2022 CO2 [Moles/Vol] 27.0 mmol/L 21.0-32.0 [facility] Urea nitrogen/Creatinine [Mass ratio] 23.1 mg/mg 10-20 [facility] Laboratory - CoagulationOrde red By: Dr. Kirkpatrick on 09-06-2022 aPTT Coag (Bld) [Time] 29.6 s 24.1-36.2 [facility] PT Coag (PPP) [Time] 14.7 s 11.7-14.9 [facility] - Hematology and Cell countsOrdered By: Dr. Kirkpatrick on 09-06-2022 Erythrocyte distribution width (RBC) [Entitic vol] 44.7 fL 35.1-43.9 [facility] Erythrocyte distribution width (RBC) [Ratio] 12.7 % 11.6-14.6 [facility] Immature granulocytes/100 WBC (Bld) 0.300 % 0.0-0.9 [facility] Comment on above: IG% - Immature Granu locytes (promyelocytes, myelocytes and metamyelocytes) > 1% indicates that a LEFT SHIFT is Present. MCH (RBC) [Entitic mass] 32.5 pg 27.0-32.0 [facility] Nucleated RBC/100 WBC (Bld) [Ratio] 0 % 0-5 [facility] MCHC Auto (RBC) [Mass/Vol]Or dered By: Dr. Kirkpatrick on 09-06-2022 MCHC (RBC) [Mass/Vol] 34.2 g/dL 32-36 [facility] No Panel InformationOrdered By: Dr. Kirkpatrick on 09-06-2022 Estimated Creatinine Clearance Calc 55.25 ml/min [facility] Estimated GFR (MDRD) Amer 86 mL/min >60 [facility] Comment on above: GFR Calc Estimated GFR (MDRD) Non-Af Amer 71 mL/min >60 [facility] Comment on above: Non- GFR Calc Troponin I High Sensitivity 6 pg/mL 3.0-78.0 [facility] Comment on above: Please Note: [place] t Units and Gender Specific Reference Ranges. For more information see Policy Stat Procedure [place] High Sensitivity Troponin (TNIH) and attachments. Platelets bldOrdered By: Dr. Kirkpatrick on 09-06-2022 Platelets (Bld) [#/Vol] 79 10*3/uL 150-450 [facility] Review by pathologistOrdered By: Dr. Kirkpatrick on 09-06-2022 Pathologist review Javier (Unsp spec) [Interp] Katharine rojas [facility] Pathologist review Javier (Unsp spec) [Interp] Reviewed [facility] Comment on above: Previous reported re sult: Katharine rojas Edited by: RGOOD on 09/07/22:1321Leukopenia.Thrombocytopenia.Clinical correlation necessary.Guilherme Marquez M.D. 09/07/22 AMENDED REPORT 09/07/22 1321 PATH REV previously reported as: Katharine rojas Serum or plasma calcium myranda urement (mass/volume)Ordered By: Dr. Kirkpatrick on 09-06-2022 Calcium [Mass/Vol] 10.1 mg/dL 8.5-10.1 [facility] Serum or plasma creatinine m easurement (mass/volume)Ordered By: Dr. Kirkpatrick on 09-06-2022 Creatinine [Mass/Vol] 1.08 mg/dL 0.70-1.30 [facility] Comment on above: The validity of the calculated GFR & GFRAA in patients over 70 years has not been determined. Clinical correlation is essential. Serum or plasma urea nitroge n measurement (mass/volume)Ordered By: Dr. Kirkpatrick on 09-06-2022 Urea nitrogen [Mass/Vol] 25 mg/dL 7-18 [facility] Thin prep Papanicolaou smear with manual screeningOrdered By: Dr. Kirkpatrick on 09-06-2022 Thin prep Papanicolaou smear with manual screening 8 5-15 [facility] MAGNESIUM BLDon 02-01-2022 Magnesium [Mass/Vol] 1.5 mg/dL Low 1.7 - 2 .3 mg/dL [facility] .Auto DiffOrdered By: Zehra Cowart on 08-29-2021 Basophil, Absolute 0.00 103/mcL Normal 0.00-0.19 AO A uto Heme SS Comment on above: Performed By: #### A NSG, ABOG, ALB, ANEU, ADIFF, CBC #### [address] [address] Basophils/100 WBC (Bld) 0.5 % Normal 0.0-2.5 AO Auto Heme SS Comment on above: Performed By: #### A NSG, ABOG, ALB, ANEU, ADIFF, CBC #### [address] [address] Eosinophil, Absolute 0.00 103/mcL Normal 0.00-0.40 AO Auto Heme SS Comment on above: Performed By: #### A NSG, ABOG, ALB, ANEU, ADIFF, CBC #### [address] [address] Eosinophils/100 WBC (Bld) 1.2 % Normal 0.0-7.0 AO Auto Heme SS Comment on above: Performed By: #### A NSG, ABOG, ALB, ANEU, ADIFF, CBC #### [address] [address] Lymphocyte, Absolute 0.70 103/mcL Low 0.77-3.85 AO Auto Heme SS Comment on above: Performed By: #### A NSG, ABOG, ALB, ANEU, ADIFF, CBC #### [address] [address] Lymphocytes/100 WBC (Bld) 18.6 % Normal 10.0-50.0 AO Auto Heme SS Comment on above: Performed By: #### A NSG, ABOG, ALB, ANEU, ADIFF, CBC #### [place] [address] Monocyte, Absolute 0.40 103/mcL Normal 0.15-1.00 AO A uto Heme SS Comment on above: Performed By: #### A NSG, ABOG, ALB, ANEU, ADIFF, CBC #### [address] [address] Monocytes/100 WBC (Bld) 10.7 % Normal 1.7-13.0 AO Auto Heme SS Comment on above: Performed By: #### A NSG, ABOG, ALB, ANEU, ADIFF, CBC #### [place] [address] Neutrophils/100 WBC (Bld) 69.0 % Normal 37.0-80.0 AO Auto Heme SS Comment on above: Performed By: #### A NSG, ABOG, ALB, ANEU, ADIFF, CBC #### [place] [address] .NEUABSOrdered By: Zehra gonzalez on 08-29-2021 Neutrophil, Absolute 2.50 103/mcL Low 2.85-6.16 AO Auto Heme SS Comment on above: Performed By: #### A NSG, ABOG, ALB, ANEU, ADIFF, CBC #### [place] [address] CBCOrdered By: Zehra Cowart on 08-29-2021 Erythrocyte distribution width (RBC) [Ratio] 13.7 % Normal 11.5-14.5 AO Auto Heme SS Comment on above: Performed By: #### A NSG, ABOG, ALB, ANEU, ADIFF, CBC #### [place] [address] Hematocrit (Bld) [Volume fraction] 41.0 % Low 42.0-52.0 AO Auto Heme SS Comment on above: Performed By: #### A NSG, ABOG, ALB, ANEU, ADIFF, CBC #### [place] [address] MCH (RBC) [Entitic mass] 32.7 pg High 27.0-31.2 AO Auto Heme SS Comment on above: Performed By: #### A NSG, ABOG, ALB, ANEU, ADIFF, CBC #### [place] [address] MCV (RBC) [Entitic vol] 94.5 fL High 80.0-94.0 AO Auto Heme SS Comment on above: Performed By: #### A NSG, ABOG, ALB, ANEU, ADIFF, CBC #### [place] [address] Platelet mean volume (Bld) [Entitic vol] 6.8 fL Low 7.4-10.4 AO Auto Heme SS Comment on above: Performed By: #### A NSG, ABOG, ALB, ANEU, ADIFF, CBC #### [place] [address] CBCon 08-29-2021 Hgb 14.2 G/dL Normal 14.0-18.0 [facility] [place] Comment on above: Performed By: #### A NSG, ABOG, ALB, ANEU, ADIFF, CBC #### [place] [address] MCHC 34.6 G/dL Normal 31.8-35.4 [facility] [place] Comment on above: Performed By: #### A NSG, ABOG, ALB, ANEU, ADIFF, CBC #### [place] [address] Platelet 101 10 3/mcL Low 130-400 [facility] [place] Comment on above: Performed By: #### A NSG, ABOG, ALB, ANEU, ADIFF, CBC #### [place] [address] RBC 4.34 10 6/mcL Normal 4.04-6.13 [facility] [place] Comment on above: Performed By: #### A NSG, ABOG, ALB, ANEU, ADIFF, CBC #### [place] [address] WBC 3.60 10 3/mcL Low 4.60-10.80 [facility] [place] Comment on above: Performed By: #### A NSG, ABOG, ALB, ANEU, ADIFF, CBC #### [address] [address] Gel ABOOrdered By: Zehra gonzalez on 08-29-2021 ABO/Rh Interp Positive Invalid Interpretation Code AO BB SS Comment on above: Performed By: #### A NSG, ABOG, ALB, ANEU, ADIFF, CBC #### [place] [id number] [place], [place] [address] Gel ABSon 08-29-2021 Antibody Screen Gel Negative Normal [facility] ([place]) Comment on above: Performed By: #### A NSG, ABOG, ALB, ANEU, ADIFF, CBC #### [place] [id number] [place], [place] [address] LABORATORYOrdered By: Rebecca Sprague on 08-29-2021 Glucose [Mass/Vol] 125 mg/dL Invalid Interpretation Code 82 - 115 mg/dL [facility] Work Phone: LABORATORYOrdered By: Zehra Cowart on 08-29-2021 Antibody Screen Gel Negative [facility] (08/29/21 6:00 AM) Invalid Interpretation Code AO BB SS Hemoglobin (Bld) [Mass/Vol] 14.2 G/dL Invalid Interpretation Code 14.0 - 18.0 G/dL AO Auto Heme SS MCHC (RBC) [Mass/Vol] 34.6 G/dL Invalid Interpretation Code 31.8 - 35.4 G/dL AO Auto Heme SS Platelets (Bld) [#/Vol] 101 103/mcL Invalid Interpretation Code 130 - 400 10^3/mcL AO Auto Heme SS RBC (Bld) [#/Vol] 4.34 106/mcL Invalid Interpretation Code 4.04 - 6.13 10^6/mcL AO Auto Heme SS WBC (Bld) [#/Vol] 3.60 103/mcL Invalid Interpretation Code 4.60 - 10.80 10^3/mcL AO Auto Heme SS XR KNEE 1 OR 2 VIEWS LEFTon 08-29-2021 XR KNEE 1 OR 2 VIEWS LEFT ORIGINAL EXAMINATION: TWO XRAY VIEWS OF THE LEFT KNEE 08/29/2021 10:36 am COMPARISON: 08/18/2021 HISTORY: ORDERING SYSTEM PROVIDED HISTORY: Reason for Exam: Status Post Arthroplasty FINDINGS: Postsurgical changes related to total knee arthroplasty. Anterior cutaneous clips. The femoral component is in alignment with the tibial component without evidence of hardware fracture or perihardware lucency. Subcutaneous and retropatellar gas locules are probably postsurgical. IMPRESSION: Total left knee arthroplasty postsurgical changes. No evidence of hardware failure. Interpreted by: Jose A Cavanaugh Preliminary Report By: Jose A Cavanaugh Electronically signed By Jose A Cavanaugh Dictated Date: 08/29/2021 12:02:47 PM Prelim Date: 08/29/2021 12:04:35 PM Sign Date: 08/29/2021 12:04:35 PM Ordering Provider: RADHA CHOI [facility] ([place] CT KNEE W/O CONTRAST LEFTon 08-21-2021 CT KNEE W/O CONTRAST LEFT ORIGINAL EXAMINATION: CT OF THE LEFT KNEE WITHOUT CONTRAST 08/18/2021 3:27 pm TECHNIQUE: CT of the left knee was performed without the administration of intravenous contrast. Multiplanar reformatted images are provided for review. Dose modulation, iterative reconstruction, and/or weight based adjustment of the mA/kV was utilized to reduce the radiation dose to as low as reasonably achievable. COMPARISON: None. 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 The lateral tibiofemoral and patellofemoral compartments demonstrate mild degenerative change without significant joint space loss. There is no fracture or dislocation. There is no aggressive osseous lesion. Visualized osseous structures of the left hemipelvis and left hip are unremarkable. Left ankle osseous structures are also unremarkable in appearance. In the posterior intercondylar region, there multiple intracapsular osteochondral bodies which measure up to 8 mm. There is a trace joint effusion. There is a small Farrell cyst. The limited images through the pelvis demonstrate sigmoid diverticulosis without evidence of diverticulitis. There are postsurgical changes relating to a hernia repair. IMPRESSION: 1. No fracture or aggressive osseous lesion. 2. 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 Trace joint effusion. I have personally reviewed the images of this examination and agree with the resident's findings and interpretation. Interpreted by: Jordan Giraldo DO Preliminary Report By: Ariannaloc Devine Electronically signed By Jordan Giraldo DO Dictated Date: 08/21/2021 8:04:47 AM Prelim Date: 08/21/2021 2:34:36 PM Sign Date: 08/21/2021 2:34:36 PM Ordering Provider: RADHA Torres [facility] [place] A1Con 08-20-2021 HbA1c (Bld) [Mass fraction] 6.7 % High 4.3-6.4 [facility]) Comment on above: Performed By: #### A 1C #### [address] [address] .Auto Diffon 08-18-2021 Basophil, Absolute 0.00 10 3/mcL Normal 0.00-0.19 [facility]) Comment on above: Performed By: #### A NSG, ABOG, ALB, ANEU, ADIFF, CBC #### [address] [address] Basophils/100 WBC (Bld) 0.5 % Normal 0.0-2.5 [facility]) Comment on above: Performed By: #### A NSG, ABOG, ALB, ANEU, ADIFF, CBC #### [address] [address] Eosinophil, Absolute 0.00 10 3/mcL Normal 0.00-0.40 A [facility]) Comment on above: Performed By: #### A NSG, ABOG, ALB, ANEU, ADIFF, CBC #### [address] [address] Eosinophils/100 WBC (Bld) 0.8 % Normal 0.0-7.0 [facility]) Comment on above: Performed By: #### A NSG, ABOG, ALB, ANEU, ADIFF, CBC #### [address] [address] Lymphocyte, Absolute 0.50 10 3/mcL Low 0.77-3.85 A [facility] ([place]) Comment on above: Performed By: #### A NSG, ABOG, ALB, ANEU, ADIFF, CBC #### [address] [address] Lymphocytes/100 WBC (Bld) 13.7 % Normal 10.0-50.0 [facility] ([place]) Comment on above: Performed By: #### A NSG, ABOG, ALB, ANEU, ADIFF, CBC #### [address] [address] Monocyte, Absolute 0.30 10 3/mcL Normal 0.15-1.00 [facility] ([place]) Comment on above: Performed By: #### A NSG, ABOG, ALB, ANEU, ADIFF, CBC #### [address] [address] Monocytes/100 WBC (Bld) 8.3 % Normal 1.7-13.0 [facility] ([place]) Comment on above: Performed By: #### A NSG, ABOG, ALB, ANEU, ADIFF, CBC #### [address] [address] Neutrophils/100 WBC (Bld) 76.7 % Normal 37.0-80.0 [facility] ([place]) Comment on above: Performed By: #### A NSG, ABOG, ALB, ANEU, ADIFF, CBC #### [address] [address] .GFRon 08-18-2021 GFR 105 ml/min/1.73sqm Normal [facility] ([place]) Comment on above: Result Comment: GFR Population mean for , Non- Americans Ages 20-29 = 116 mL/min/1.73 sq.m. Ages 30-39 = 107 mL/min/1.73 sq.m. Ages 40-49 = 99 mL/min/1.73 sq.m. Ages 50-59 = 93 mL/min/1.73 sq.m. Ages 60-69 = 85 mL/min/1.73 sq.m. Ages 70+ = 75 mL/min/1.73 sq.m. Chronic Kidney Disease: Less than 60 mL/min/1.73 square meters End Stage Renal Disease: Less than 15 mL/min/1.73 square meters Performed By: #### Tata FR, BMP #### [address] [address] GFR Non- 87 ml/min/1.73sqm Normal [facility] ([place]) Comment on above: Result Comment: GFR Population mean for , Non- Americans Ages 20-29 = 116 mL/min/1.73 sq.m. Ages 30-39 = 107 mL/min/1.73 sq.m. Ages 40-49 = 99 mL/min/1.73 sq.m. Ages 50-59 = 93 mL/min/1.73 sq.m. Ages 60-69 = 85 mL/min/1.73 sq.m. Ages 70+ = 75 mL/min/1.73 sq.m. Chronic Kidney Disease: Less than 60 mL/min/1.73 square meters End Stage Renal Disease: Less than 15 mL/min/1.73 square meters Performed By: #### G , BMP #### [address] [address] .NEUABSon 08-18-2021 Neutrophil, Absolute 3.00 10 3/mcL Normal 2.85-6.16 A [facility] ([place]) Comment on above: Performed By: #### A NSG, ABOG, ALB, ANEU, ADIFF, CBC #### [address] [address] ALBon 08-18-2021 Albumin Level 3.9 G/dL Normal 3.4-4.8 [facility] ([place]) Comment on above: Performed By: #### A NSG, ABOG, ALB, ANEU, ADIFF, CBC #### [address] [address] BMPon 08-18-2021 BUN/Creatinine Ratio 17 ratio Normal 7-27 [facility] ([place]) Comment on above: Performed By: #### G FR, BMP #### [address] [address] Calcium [Mass/Vol] 9.2 mg/dL Normal 8.4-10.2 [facility] ([place]) Comment on above: Performed By: #### Tata RIVERA, BMP #### [address] [address] Chloride [Moles/Vol] 102 mmol/L Normal 98-107 [facility] ([place] Comment on above: Performed By: #### Tata RIVERA, BMP #### [address] [address] CO2 [Moles/Vol] 27 mmol/L Normal 23-31 [facility] ([place] Comment on above: Performed By: #### Tata RIVERA, BMP #### [address] [address] Creatinine [Mass/Vol] 0.86 mg/dL Normal 0.70-1.30 [facility] ([place]) Comment on above: Performed By: #### Tata RIVERA, BMP #### [address] [address] Electrolyte Balance 12.0 mEq/L Normal 4.0-15.0 [facility] ([place]) Comment on above: Performed By: #### Tata RIVERA, BMP #### [address] [address] Glucose [Mass/Vol] 150 mg/dL High 83-110 [facility] ([place]) Comment on above: Performed By: #### Tata RIVERA, BMP #### [address] [address] Potassium [Moles/Vol] 3.8 mmol/L Normal 3.5-5.1 [facility] ([place]) Comment on above: Performed By: #### Tata RIVERA, BMP #### [address] [address] Sodium [Moles/Vol] 141 mmol/L Normal 136-145 [facility] ([place] Comment on above: Performed By: #### Tata RIVERA, BMP #### [address] [address] Urea nitrogen [Mass/Vol] 15 mg/dL Normal 7-18 [facility] ([place] Comment on above: Performed By: #### G FR, BMP #### [address] [address] CBCon 08-18-2021 Erythrocyte distribution width (RBC) [Ratio] 13.8 % Normal 11.5-14.5 [facility] ([place] Comment on above: Order Comment: Pre-A dmission Testing Performed By: #### A NSG, ABOG, ALB, ANEU, ADIFF, CBC #### [address] [address] Hematocrit (Bld) [Volume fraction] 38.2 % Low 42.0-52.0 [facility] ([place] Comment on above: Order Comment: Pre-A dmission Testing Performed By: #### A NSG, ABOG, ALB, ANEU, ADIFF, CBC #### [address] [address] Hgb 13.5 G/dL Low 14.0-18.0 [facility] ([place] Comment on above: Order Comment: Pre-A dmission Testing Performed By: #### A NSG, ABOG, ALB, ANEU, ADIFF, CBC #### [address] [address] MCH (RBC) [Entitic mass] 33.2 pg High 27.0-31.2 [facility] ([place] Comment on above: Order Comment: Pre-A dmission Testing Performed By: #### A NSG, ABOG, ALB, ANEU, ADIFF, CBC #### [address] [address] MCHC 35.5 G/dL High 31.8-35.4 [facility] ([place] Comment on above: Order Comment: Pre-A dmission Testing Performed By: #### A NSG, ABOG, ALB, ANEU, ADIFF, CBC #### [address] [address] MCV (RBC) [Entitic vol] 93.7 fL Normal 80.0-94.0 [facility] ([place] Comment on above: Order Comment: Pre-A dmission Testing Performed By: #### A NSG, ABOG, ALB, ANEU, ADIFF, CBC #### [address] [address] Platelet 103 10 3/mcL Low 130-400 [facility] ([place] Comment on above: Order Comment: Pre-A dmission Testing Performed By: #### A NSG, ABOG, ALB, ANEU, ADIFF, CBC #### [address] [address] Platelet mean volume (Bld) [Entitic vol] 6.7 fL Low 7.4-10.4 [facility] ([place] Comment on above: Order Comment: Pre-A dmission Testing Performed By: #### A NSG, ABOG, ALB, ANEU, ADIFF, CBC #### [address] [address] RBC 4.08 10 6/mcL Normal 4.04-6.13 [facility] ([place] Comment on above: Order Comment: Pre-A dmission Testing Performed By: #### A NSG, ABOG, ALB, ANEU, ADIFF, CBC #### [address] [address] WBC 3.90 10 3/mcL Low 4.60-10.80 [facility] ([place] Comment on above: Order Comment: Pre-A dmission Testing Performed By: #### A NSG, ABOG, ALB, ANEU, ADIFF, CBC #### [address] [address] Gel ABOon 08-18-2021 ABO/Rh Interp Positive Invalid Interpretation Code [facility] ([place] Comment on above: Performed By: #### A NSG, ABOG, ALB, ANEU, ADIFF, CBC #### [address] [address] Gel ABSon 08-18-2021 Antibody Screen Gel Negative Normal [facility] ([place]) Comment on above: Performed By: #### A NSG, ABOG, ALB, ANEU, ADIFF, CBC #### [place] [address] LABORATORYOrdered By: Kat Seth on 08-18-2021 ABO/Rh Interp Positive Invalid Interpretation Code AO BB SS Albumin BCP dye [Mass/Vol] 3.9 G/dL Invalid Interpretation Code 3.4 - 4.8 G/dL AO ADM SS Antibody Screen Gel Negative [facility] (08/18/21 1:40 PM) Invalid Interpretation Code AO BB SS Calcium [Mass/Vol] 9.2 mg/dL Invalid Interpretation Code 8.4 - 10.2 mg/dL AO ADM SS Chloride [Moles/Vol] 102 mmol/L Invalid Interpretation Code 98 - 107 mmol/L AO ADM SS CO2 [Moles/Vol] 27 mmol/L Invalid Interpretation Code 23 - 31 mmol/L AO ADM SS Creatinine [Mass/Vol] 0.86 mg/dL Invalid Interpretation Code 0.70 - 1.30 mg/dL AO ADM SS Electrolyte Balance 12.0 mEq/L Invalid Interpretation Code 4.0 - 15.0 mEq/L AO ADM SS Glucose [Mass/Vol] 150 mg/dL Invalid Interpretation Code 83 - 110 mg/dL AO ADM SS Potassium [Moles/Vol] 3.8 mmol/L Invalid Interpretation Code 3.5 - 5.1 mmol/L AO ADM SS Sodium [Moles/Vol] 141 mmol/L Invalid Interpretation Code 136 - 145 mmol/L AO ADM SS Urea nitrogen [Mass/Vol] 15 mg/dL Invalid Interpretation Code 7 - 18 mg/dL AO ADM SS Urea nitrogen/Creatinine [Mass ratio] 17 ratio Invalid Interpretation Code 7 - 27 ratio AO ADM SS LABORATORYOrdered By: Zehra Cowart on 08-18-2021 Basophil, Absolute 0.00 103/mcL Invalid Interpretation Code 0.00 - 0.19 10^3/mcL AO Auto Heme SS Basophils/100 WBC (Bld) 0.5 % Invalid Interpretation Code 0.0 - 2.5 % AO Auto Heme SS Eosinophil, Absolute 0.00 103/mcL Invalid Interpretation Code 0.00 - 0.40 10^3/mcL AO Auto Heme SS Eosinophils/100 WBC (Bld) 0.8 % Invalid Interpretation Code 0.0 - 7.0 % AO Auto Heme SS Erythrocyte distribution width (RBC) [Ratio] 13.8 % Invalid Interpretation Code 11.5 - 14.5 % AO Auto Heme SS Hematocrit (Bld) [Volume fraction] 38.2 % Invalid Interpretation Code 42.0 - 52.0 % AO Auto Heme SS Hemoglobin (Bld) [Mass/Vol] 13.5 G/dL Invalid Interpretation Code 14.0 - 18.0 G/dL AO Auto Heme SS Lymphocyte, Absolute 0.50 103/mcL Invalid Interpretation Code 0.77 - 3.85 10^3/mcL AO Auto Heme SS Lymphocytes/100 WBC (Bld) 13.7 % Invalid Interpretation Code 10.0 - 50.0 % AO Auto Heme SS MCH (RBC) [Entitic mass] 33.2 pg Invalid Interpretation Code 27.0 - 31.2 pg AO Auto Heme SS MCHC (RBC) [Mass/Vol] 35.5 G/dL Invalid Interpretation Code 31.8 - 35.4 G/dL AO Auto Heme SS MCV (RBC) [Entitic vol] 93.7 fL Invalid Interpretation Code 80.0 - 94.0 fL AO Auto Heme SS Monocyte, Absolute 0.30 103/mcL Invalid Interpretation Code 0.15 - 1.00 10^3/mcL AO Auto Heme SS Monocytes/100 WBC (Bld) 8.3 % Invalid Interpretation Code 1.7 - 13.0 % AO Auto Heme SS Neutrophil, Absolute 3.00 103/mcL Invalid Interpretation Code 2.85 - 6.16 10^3/mcL AO Auto Heme SS Neutrophils/100 WBC (Bld) 76.7 % Invalid Interpretation Code 37.0 - 80.0 % AO Auto Heme SS Platelet mean volume (Bld) [Entitic vol] 6.7 fL Invalid Interpretation Code 7.4 - 10.4 fL AO Auto Heme SS Platelets (Bld) [#/Vol] 103 103/mcL Invalid Interpretation Code 130 - 400 10^3/mcL AO Auto Heme SS RBC (Bld) [#/Vol] 4.08 106/mcL Invalid Interpretation Code 4.04 - 6.13 10^6/mcL AO Auto Heme SS WBC (Bld) [#/Vol] 3.90 103/mcL Invalid Interpretation Code 4.60 - 10.80 10^3/mcL AO Auto Heme SS LABORATORYOrdered By: SYSTEM SYSTEM on 08-18-2021 GFR 105 ml/min/1.73sqm Invalid Interpretation Code AO Chemistry S GFR Non- 87 ml/min/1.73sqm Invalid Interpretation Code AO Chemistry S XR CHEST 2 VIEWSon XR CHEST 2 VIEWS ORIGINAL EXAMINATION: TWO XRAY VIEWS OF THE CHEST08/18/2021 3:02 pm COMPARISON: None HISTORY: ORDERING SYSTEM PROVIDED HISTORY: Reason for Exam: Pre-admission testing FINDINGS: The heart size is normal. There is no pulmonary consolidation. No pneumothorax or pleural effusion. No aggressive osseous lesions identified.Remodeled left rib deformity is seen. Mild degenerative spurring seen in the spine. IMPRESSION: No acute radiographic findings. Interpreted by: Jordan Paulino MD Preliminary Report By: Jordan Paulino MD Electronically signed By Jordan Paulino MD Dictated Date: 08/18/2021 3:15:04 PM Prelim Date: 08/18/2021 3:15:42 PM Sign Date: 08/18/2021 3:15:42 PM Ordering Provider: RADHA CHOI [facility] ([place]) Vital Signs Date Time Vital Sign Value Performing Clinician Facility 01-25-2025 12:25-0400 Body temperature 97.7 [degF] Dr. Harlan Ford DO Work Phone: 5(198)640-828775 [place] [address] 01-25-2025 12:25-0400 Body weight 84.[address] Harlan Ford DO Work Phone: 8(980)244-310675 [place] [address] 01-25-2025 12:25-0400 Diastolic blood pressure 59 mm[Hg] Dr. Harlan Ford DO Work Phone: 3(059)596-872675 [place] [address] 01-25-2025 12:25-0400 Heart rate 59 /min Dr. Harlan Ford DO Work Phone: [facility] 01-25-2025 12:25-0400 Respiratory rate 16 /min Dr. Harlan Ford DO Work Phone: [facility] 01-25-2025 12:25-0400 SaO2% (BldA) [Mass fraction] 98 % Dr. Harlan Ford DO Work Phone: [facility] 01-25-2025 12:25-0400 Systolic blood pressure 108 mm[Hg] Dr. Harlan Ford DO Work Phone: [facility] 12-23-2024 08:28-0400 Body height 173.[address] Harlan Ford DO Work Phone: [facility] 12-23-2024 08:28-0400 Body mass index (BMI) [Ratio] 29.5 kg/m2 Dr. Harlan Ford DO Work Phone: [facility] 12-23-2024 08:28-0400 Body weight 89.[address] Harlan Ford DO Work Phone: [facility] 12-23-2024 08:28-0400 Diastolic blood pressure 67 mm[Hg] Dr. Harlan Ford DO Work Phone: [facility] 12-23-2024 08:28-0400 Respiratory rate 16 /min Dr. Harlan Ford DO Work Phone: [facility] 12-23-2024 08:28-0400 Systolic blood pressure 168 mm[Hg] Dr. Harlan Ford DO Work Phone: [facility] 12-22-2024 10:20-0400 Body height 173 cm Harlan Ford DO Work Phone: [facility] 12-22-2024 10:20-0400 Body mass index (BMI) [Ratio] 29.71 kg/m2 Harlan Caraballorison DO Work Phone: [facility] 12-22-2024 10:20-0400 Body temperature 96.4 [degF] Harlan Caraballorison DO Work Phone: [facility] 12-22-2024 10:20-0400 Body weight 88.91 kg Harlan Ford DO Work Phone: [facility] 12-22-2024 10:20-0400 Diastolic blood pressure 68 mm[Hg] Harlan Caraballorison DO Work Phone: [facility] 12-22-2024 10:20-0400 Heart rate 60 /min Harlan Ford DO Work Phone: [facility] 12-22-2024 10:20-0400 Respiratory rate 16 /min Harlan Ford DO Work Phone: [facility] 12-22-2024 10:20-0400 Systolic blood pressure 120 mm[Hg] Harlan Ford DO Work Phone: [facility] 10-06-2024 13:04-0400 Body temperature 97.8 [degF] Dr. Harlan Ford DO Work Phone: [facility] 10-06-2024 13:04-0400 Body weight 90.[address] Harlan Ford DO Work Phone: [facility] 10-06-2024 13:04-0400 Diastolic blood pressure 63 mm[Hg] Dr. Harlan Ford DO Work Phone: [facility] 10-06-2024 13:04-0400 Heart rate 57 /min Dr. Harlan Ford DO Work Phone: [facility] 10-06-2024 13:04-0400 Respiratory rate 14 /min Dr. Harlan Ford DO Work Phone: [facility] 10-06-2024 13:04-0400 SaO2% (BldA) [Mass fraction] 99 % Dr. Harlan Ford DO Work Phone: [facility] 10-06-2024 13:04-0400 Systolic blood pressure 140 mm[Hg] Dr. Harlan Ford DO Work Phone: [facility] 09-15-2024 09:33-0400 Body mass index (BMI) [Ratio] 30.41 kg/m2 Harlan Ford DO Work Phone: [facility] 09-15-2024 09:33-0400 Body temperature 97 [degF] Harlan Ford DO Work Phone: [facility] 09-15-2024 09:33-0400 Body weight 88.91 kg Harlan Ford DO Work Phone: [facility] 09-15-2024 09:33-0400 Diastolic blood pressure 60 mm[Hg] Harlan Ford DO Work Phone: [facility] 09-15-2024 09:33-0400 Heart rate 84 /min Harlan Ford DO Work Phone: [facility] 09-15-2024 09:33-0400 Respiratory rate 20 /min Harlan Ford DO Work Phone: [facility] 09-15-2024 09:33-0400 Systolic blood pressure 120 mm[Hg] Harlan Ford DO Work Phone: [facility] 09-02-2024 11:20-0500 Body mass index (BMI) [Ratio] 30.47 kg/m2 Viral Erickson MD Work Phone: [facility] 09-02-2024 11:20-0500 Body temperature 96.91 [degF] Viral Erickson MD Work Phone: [facility] 09-02-2024 11:20-0500 Body weight 89.1 kg Viral Erickson MD Work Phone: [facility] 09-02-2024 11:20-0500 Diastolic blood pressure 70 mm[Hg] Viral Erickson MD Work Phone: [facility] 09-02-2024 11:20-0500 Heart rate 88 /min Viral Erickson MD Work Phone: [facility] 09-02-2024 11:20-0500 Respiratory rate 16 /min Viral Erickson MD Work Phone: [facility] 09-02-2024 11:20-0500 SaO2% (BldA) [Mass fraction] 97 % Viral Erickson MD Work Phone: [facility] 09-02-2024 11:20-0500 Systolic blood pressure 144 mm[Hg] Viral Erickson MD Work Phone: [facility] 07-29-2024 12:09-0500 Body mass index (BMI) [Ratio] 30.95 kg/m2 Harlan Ford DO Work Phone: [facility] 07-29-2024 12:09-0500 Body temperature 97 [degF] Harlan Ford DO Work Phone: [facility] 07-29-2024 12:09-0500 Body weight 90.5 kg Harlan Ford DO Work Phone: [facility] 07-29-2024 12:09-0500 Diastolic blood pressure 70 mm[Hg] Harlan Ford DO Work Phone: [facility] 07-29-2024 12:09-0500 Heart rate 64 /min Harlan Ford DO Work Phone: [facility] 07-29-2024 12:09-0500 Respiratory rate 20 /min Harlan Ford DO Work Phone: [facility] 07-29-2024 12:09-0500 Systolic blood pressure 138 mm[Hg] Harlan Ford DO Work Phone: [facility] 07-23-2024 15:13-0500 Body mass index (BMI) [Ratio] 30.99 kg/m2 Kalpana Clutter PA-C Work Phone: [facility] 07-23-2024 15:13-0500 Body temperature 97.39 [degF] Kalpana Clutter PA-C Work Phone: [facility] 07-23-2024 15:13-0500 Body weight 90.6 kg Kalpana Clutter PA-C Work Phone: [facility] 07-23-2024 15:13-0500 Diastolic blood pressure 72 mm[Hg] Kalpana Clutter PA-C Work Phone: [facility] 07-23-2024 15:13-0500 Heart rate 73 /min Kalpana Clutter PA-C Work Phone: [facility] 07-23-2024 15:13-0500 Respiratory rate 18 /min Kalpana Clutter PA-C Work Phone: [facility] 07-23-2024 15:13-0500 SaO2% (BldA) [Mass fraction] 97 % Kalpana Clutter PA-C Work Phone: [facility] 07-23-2024 15:13-0500 Systolic blood pressure 171 mm[Hg] Kalpana Poe PA-C Work Phone: [facility] 06-15-2024 09:18-0500 Body mass index (BMI) [Ratio] 30.88 kg/m2 Harlan Ford DO Work Phone: [facility] 06-15-2024 09:18-0500 Body temperature 97.11 [degF] Harlan Ford DO Work Phone: [facility] 06-15-2024 09:18-0500 Body weight 90.3 kg Harlan Ford DO Work Phone: [facility] 06-15-2024 09:18-0500 Diastolic blood pressure 60 mm[Hg] Harlan Ford DO Work Phone: [facility] 06-15-2024 09:18-0500 Heart rate 68 /min Harlan Ford DO Work Phone: [facility] 06-15-2024 09:18-0500 Respiratory rate 20 /min Harlan Ford DO Work Phone: [facility] 06-15-2024 09:18-0500 Systolic blood pressure 122 mm[Hg] Harlan Ford DO Work Phone: [facility] 03-11-2024 13:37-0400 Body mass index (BMI) [Ratio] 30.75 kg/m2 Tyrell Corrigan APRN.SALES SUPPORT COORDINATOR Work Phone: [facility] 03-11-2024 13:37-0400 Body temperature 98.4 [degF] Tyrell Corrigan APRN.SALES SUPPORT COORDINATOR Work Phone: [facility] 03-11-2024 13:37-0400 Body weight 89.9 kg Tyrell Corrigan APRN.SALES SUPPORT COORDINATOR Work Phone: [facility] 03-11-2024 13:37-0400 Diastolic blood pressure 76 mm[Hg] Tyrell Corrigan APRN.SALES SUPPORT COORDINATOR Work Phone: [facility] 03-11-2024 13:37-0400 Heart rate 69 /min Tyrell Corrigan APRN.SALES SUPPORT COORDINATOR Work Phone: [facility] 03-11-2024 13:37-0400 Respiratory rate 16 /min Tyrell Corrigan APRN.SALES SUPPORT COORDINATOR Work Phone: [facility] 03-11-2024 13:37-0400 SaO2% (BldA) [Mass fraction] 96 % Tyrell Corrigan APRN.SALES SUPPORT COORDINATOR Work Phone: [facility] 03-11-2024 13:37-0400 Systolic blood pressure 132 mm[Hg] Tyrell Corrigan APRN.SALES SUPPORT COORDINATOR Work Phone: [facility] 03-03-2024 09:55-0400 Body mass index (BMI) [Ratio] 30.56 kg/m2 Harlan Ford DO Work Phone: [facility] 03-03-2024 09:55-0400 Body temperature 97.5 [degF] Harlan Ford DO Work Phone: [facility] 03-03-2024 09:55-0400 Body weight 89.36 kg Harlan Ford DO Work Phone: [facility] 03-03-2024 09:55-0400 Diastolic blood pressure 60 mm[Hg] Harlan Ford DO Work Phone: [facility] 03-03-2024 09:55-0400 Heart rate 60 /min Harlan Ford DO Work Phone: [facility] 03-03-2024 09:55-0400 Respiratory rate 20 /min Hralan Ford DO Work Phone: [facility] 03-03-2024 09:55-0400 Systolic blood pressure 100 mm[Hg] Harlan Ford DO Work Phone: [facility] 11-26-2023 09:48-0400 Body mass index (BMI) [Ratio] 30.72 kg/m2 Harlan Ford DO Work Phone: [facility] 11-26-2023 09:48-0400 Body temperature 97.2 [degF] Harlan Ford DO Work Phone: [facility] 11-26-2023 09:48-0400 Body weight 89.81 kg Harlan Ford DO Work Phone: [facility] 11-26-2023 09:48-0400 Diastolic blood pressure 60 mm[Hg] Harlan Ford DO Work Phone: [facility] 11-26-2023 09:48-0400 Heart rate 80 /min Harlan Ford DO Work Phone: [facility] 11-26-2023 09:48-0400 Respiratory rate 20 /min Harlan Ford DO Work Phone: [facility] 11-26-2023 09:48-0400 Systolic blood pressure 120 mm[Hg] Harlan Ford DO Work Phone: [facility] 08-28-2023 13:10-0500 Body temperature 97.2 [degF] Harlan Ford DO Work Phone: [facility] 08-28-2023 13:10-0500 Body weight 92.99 kg Harlan Ford DO Work Phone: [facility] 08-28-2023 13:10-0500 Diastolic blood pressure 60 mm[Hg] Harlan Ford DO Work Phone: [facility] 08-28-2023 13:10-0500 Heart rate 68 /min Harlan Ford DO Work Phone: [facility] 08-28-2023 13:10-0500 Respiratory rate 16 /min Harlan Ford DO Work Phone: [facility] 08-28-2023 13:10-0500 Systolic blood pressure 100 mm[Hg] Harlan Ford DO Work Phone: [facility] 07-10-2023 13:07-0500 Body height 175.[address] Harlan Ford Work Phone: [facility] 07-10-2023 13:07-0500 Body mass index (BMI) [Ratio] 30.4 kg/m2 Dr. Harlan Ford Work Phone: [facility] 07-10-2023 13:07-0500 Body weight 93.[address] Harlan Ford Work Phone: 7(510)638-633349 [place] [address] 07-10-2023 13:07-0500 Diastolic blood pressure 74 mm[Hg] Dr. Harlan Ford Work Phone: 5(089)628-956549 [place] [address] 07-10-2023 13:07-0500 Heart rate 82 /min Dr. Harlan Ford Work Phone: 1(083)527-913049 [place] [address] 07-10-2023 13:07-0500 Respiratory rate 18 /min Dr. Harlan Ford Work Phone: 0(275)695-906049 [place] [address] 07-10-2023 13:07-0500 SaO2% (BldA) [Mass fraction] 98 % Dr. Harlan Ford Work Phone: 0(085)297-268075 [place] [address] 07-10-2023 13:07-0500 Systolic blood pressure 151 mm[Hg] Dr. Harlan Ford Work Phone: 7(576)388-443675 [place] [address] 05-22-2023 12:25-0500 Body temperature 97.7 [degF] Harlan Ford DO Work Phone: [facility] 05-22-2023 12:25-0500 Body weight 92.08 kg Harlan Ford DO Work Phone: [facility] 05-22-2023 12:25-0500 Diastolic blood pressure 60 mm[Hg] Harlan Ford DO Work Phone: [facility] 05-22-2023 12:25-0500 Heart rate 88 /min Harlan Caraballorison DO Work Phone: [facility] 05-22-2023 12:25-0500 Respiratory rate 16 /min Harlan Caraballorison DO Work Phone: 3(404)492-445695 [place] [address] 05-22-2023 12:25-0500 Systolic blood pressure 120 mm[Hg] Harlan Ford DO Work Phone: 4(473)465-109495 [place] [address] 02-13-2023 13:29-0400 Body temperature 97.81 [degF] Harlan Caraballorison DO Work Phone: [facility] 02-13-2023 13:29-0400 Body weight 90.27 kg Harlan Caraballorison DO Work Phone: [facility] 02-13-2023 13:29-0400 Diastolic blood pressure 50 mm[Hg] Harlan Leahyon DO Work Phone: [facility] 02-13-2023 13:29-0400 Heart rate 76 /min Harlan Ford DO Work Phone: [facility] 02-13-2023 13:29-0400 Respiratory rate 20 /min Harlan Caraballorison DO Work Phone: [facility] 02-13-2023 13:29-0400 Systolic blood pressure 120 mm[Hg] Harlan Ford DO Work Phone: [facility] 02-07-2023 09:56-0400 Body height 175.[address] Harlan Ford Work Phone: [facility] 02-07-2023 09:56-0400 Body mass index (BMI) [Ratio] 29.2 kg/m2 Dr. Harlan Ford Work Phone: [facility] 02-07-2023 09:56-0400 Body weight 89.[address] Harlan Ford Work Phone: [facility] 02-07-2023 09:56-0400 Diastolic blood pressure 71 mm[Hg] Dr. Harlan Ford Work Phone: [facility] 02-07-2023 09:56-0400 Heart rate 56 /min Dr. Harlan Ford Work Phone: [facility] 02-07-2023 09:56-0400 Respiratory rate 18 /min Dr. Harlan Ford Work Phone: [facility] 02-07-2023 09:56-0400 SaO2% (BldA) [Mass fraction] 98 % Dr. Harlan Ford Work Phone: 0(457)148-263449 [place] [address] 02-07-2023 09:56-0400 Systolic blood pressure 126 mm[Hg] Dr. Harlan Ford Work Phone: 6(339)391-915149 [place] [address] 01-25-2023 12:56-0400 Body temperature 97.5 [degF] Dr. Harlan Ford Work Phone: 9(101)797-290349 [place] [address] 01-25-2023 12:56-0400 Diastolic blood pressure 57 mm[Hg] Dr. Harlan Ford Work Phone: 6(401)074-997449 [place] [address] 01-25-2023 12:56-0400 Heart rate 71 /min Dr. Harlan Ford Work Phone: 9(515)324-491549 [place] [address] 01-25-2023 12:56-0400 Respiratory rate 18 /min Dr. Harlan Ford Work Phone: 4(065)501-049549 [place] [address] 01-25-2023 12:56-0400 SaO2% (BldA) [Mass fraction] 96 % Dr. Harlan Ford Work Phone: 7(407)053-954549 [place] [address] 01-25-2023 12:56-0400 Systolic blood pressure 118 mm[Hg] Dr. Harlan Ford Work Phone: 4(339)614-781549 [place] [address] 01-24-2023 16:33-0400 Body mass index (BMI) [Ratio] 29.5 kg/m2 Dr. Harlan Ford Work Phone: 5(290)297-094049 [place] [address] 01-24-2023 16:33-0400 Body weight 90.[address] Harlan Ford Work Phone: 6(256)149-882549 [place] [address] 01-24-2023 16:04-0400 Diastolic blood pressure 53 mm[Hg] Dr. Harlan Ford Work Phone: 2(943)453-707749 [place] [address] 01-24-2023 16:04-0400 Heart rate 65 /min Dr. Harlan Ford Work Phone: 5(755)231-966049 [place] [address] 01-24-2023 16:04-0400 Respiratory rate 15 /min Dr. Harlan Ford Work Phone: 1(661)269-347949 [place] [address] 01-24-2023 16:04-0400 SaO2% (BldA) [Mass fraction] 97 % Dr. Harlan Ford Work Phone: 2(840)194-847349 [place] [address] 01-24-2023 16:04-0400 Systolic blood pressure 103 mm[Hg] Dr. Harlan Ford Work Phone: 5(428)785-299849 [place] [address] 01-24-2023 15:17-0400 Body temperature 99.2 [degF] Dr. Harlan Ford Work Phone: 6(567)354-393149 [place] [address] 01-24-2023 13:03-0400 Body height 175.[address] Harlan Ford Work Phone: 4(928)883-734049 [place] [address] 01-24-2023 13:03-0400 Body mass index (BMI) [Ratio] 28.9 kg/m2 Dr. Harlan Ford Work Phone: 7(202)800-265649 [place] [address] 01-24-2023 13:03-0400 Body weight 88.[address] Harlan Ford Work Phone: 5(069)367-753749 [place] [address] 01-05-2023 13:12-0400 Diastolic blood pressure 64 mm[Hg] Dr. Harlan Ford Work Phone: 1(411)528-358749 [place] [address] 01-05-2023 13:12-0400 Heart rate 78 /min Dr. Harlan Ford Work Phone: 0(798)554-496849 [place] [address] 01-05-2023 13:12-0400 Respiratory rate 18 /min Dr. Harlan Ford Work Phone: 1(160)041-964349 [place] [address] 01-05-2023 13:12-0400 SaO2% (BldA) [Mass fraction] 95 % Dr. Harlan Ford Work Phone: 4(706)520-426749 [place] [address] 01-05-2023 13:12-0400 Systolic blood pressure 132 mm[Hg] Dr. Harlan Ford Work Phone: 4(195)849-716149 [place] [address] 01-05-2023 09:16-0400 Body height 175.[address] Harlan Ford Work Phone: 2(529)027-196549 [place] [address] 01-05-2023 09:16-0400 Body mass index (BMI) [Ratio] 29.9 kg/m2 Dr. Harlan Ford Work Phone: 5(088)845-079949 [place] [address] 01-05-2023 09:16-0400 Body temperature 98.2 [degF] Dr. Harlan Ford Work Phone: 3(845)864-488449 [place] [address] 01-05-2023 09:16-0400 Body weight 91.[address] Harlan Ford Work Phone: 4(653)204-318649 [place] [address] 12-17-2022 02:16-0400 Heart rate 81 /min Dr. Harlan Ford Work Phone: 9(548)314-481249 [place] [address] 12-17-2022 02:16-0400 Respiratory rate 17 /min Dr. Harlan Ford Work Phone: 0(133)222-597249 [place] [address] 12-17-2022 02:16-0400 SaO2% (BldA) [Mass fraction] 97 % Dr. Harlan Ford Work Phone: 2(314)794-764549 [place] [address] 12-16-2022 22:30-0400 Body mass index (BMI) [Ratio] 30.9 kg/m2 Dr. Harlan Ford Work Phone: 7(414)646-207249 [place] [address] 12-16-2022 22:30-0400 Body temperature 99.5 [degF] Dr. Harlan Ford Work Phone: 3(648)065-842449 [place] [address] 12-16-2022 22:30-0400 Body weight 92.[address] Harlan Ford Work Phone: 4(473)566-426049 [place] [address] 12-16-2022 22:30-0400 Diastolic blood pressure 64 mm[Hg] Dr. Harlan Ford Work Phone: 4(854)459-272149 [place] [address] 12-16-2022 22:30-0400 Systolic blood pressure 154 mm[Hg] Dr. Harlan Ford Work Phone: 6(243)634-601449 [place] [address] 11-13-2022 15:39-0400 Body temperature 97 [degF] Harlan Ford DO Work Phone: 2(403)750-207695 [place] [address] 11-13-2022 15:39-0400 Body weight 91.17 kg Harlan Ford DO Work Phone: [facility] 11-13-2022 15:39-0400 Diastolic blood pressure 70 mm[Hg] Harlan Ford DO Work Phone: [facility] 11-13-2022 15:39-0400 Heart rate 76 /min Harlan Caraballorison DO Work Phone: [facility] 11-13-2022 15:39-0400 Respiratory rate 16 /min Harlan Ford DO Work Phone: [facility] 11-13-2022 15:39-0400 Systolic blood pressure 124 mm[Hg] Harlan Ford DO Work Phone: [facility] 10-11-2022 13:21-0400 Body mass index (BMI) [Ratio] 30.1 kg/m2 Dr. Harlan Ford Work Phone: [facility] 10-11-2022 13:21-0400 Body weight 92.[address] Harlan Ford Work Phone: [facility] 10-11-2022 13:21-0400 Diastolic blood pressure 68 mm[Hg] Dr. Harlan Ford Work Phone: [facility] 10-11-2022 13:21-0400 Heart rate 65 /min Dr. Harlan Ford Work Phone: [facility] 10-11-2022 13:21-0400 Respiratory rate 16 /min Dr. Harlan Ford Work Phone: [facility] 10-11-2022 13:21-0400 SaO2% (BldA) [Mass fraction] 99 % Dr. Harlan Ford Work Phone: [facility] 10-11-2022 13:21-0400 Systolic blood pressure 131 mm[Hg] Dr. Harlan Ford Work Phone: 8(616)689-065275 [place] [address] 10-10-2022 10:12-0400 Body weight 91.54 kg Jose Ursula C++ QUANT DEVELOPER.SALES SUPPORT COORDINATOR Work Phone: [facility] 10-10-2022 10:12-0400 Diastolic blood pressure 58 mm[Hg] Jose Chanman C++ QUANT DEVELOPER.SALES SUPPORT COORDINATOR Work Phone: [facility] 10-10-2022 10:12-0400 Heart rate 77 /min Jose Osborne C++ QUANT DEVELOPER.SALES SUPPORT COORDINATOR Work Phone: [facility] 10-10-2022 10:12-0400 Respiratory rate 16 /min Jose Osborne C++ QUANT DEVELOPER.SALES SUPPORT COORDINATOR Work Phone: [facility] 10-10-2022 10:12-0400 SaO2% (BldA) [Mass fraction] 96 % Jose Osborne C++ QUANT DEVELOPER.SALES SUPPORT COORDINATOR Work Phone: [facility] 10-10-2022 10:12-0400 Systolic blood pressure 122 mm[Hg] Jose Osborne C++ QUANT DEVELOPER.SALES SUPPORT COORDINATOR Work Phone: [facility] 09-20-2022 14:09-0400 Body temperature 97.9 [degF] Dr. Harlan Ford Work Phone: [facility] 09-20-2022 14:09-0400 Diastolic blood pressure 71 mm[Hg] Dr. Harlan Ford Work Phone: [facility] 09-20-2022 14:09-0400 Heart rate 87 /min Dr. Harlan Ford Work Phone: [facility] 09-20-2022 14:09-0400 Respiratory rate 14 /min Dr. Harlan Ford Work Phone: [facility] 09-20-2022 14:09-0400 SaO2% (BldA) [Mass fraction] 94 % Dr. Harlan Ford Work Phone: [facility] 09-20-2022 14:09-0400 Systolic blood pressure 113 mm[Hg] Dr. Harlan Ford Work Phone: [facility] 09-20-2022 11:21-0400 Body height 175.[address] Harlan Ford Work Phone: 1(243)181-276975 [place] [address] 09-20-2022 11:21-0400 Body weight [address] Harlan Ford Work Phone: 8(910)878-784975 [place] [address] 09-20-2022 10:00-0400 Inhaled oxygen flow rate 2 L/min Dr. Harlan Ford Work Phone: 5(521)978-105875 [place] [address] 09-20-2022 05:46-0400 Body mass index (BMI) [Ratio] 30.9 kg/m2 Dr. Harlan Ford Work Phone: 7(479)495-607849 [place] [address] 09-10-2022 10:59-0500 Body temperature 98.6 [degF] Dr. Harlan Ford Work Phone: 4(551)283-004075 [place] [address] 09-10-2022 10:59-0500 Body weight 92.[address] Harlan Ford Work Phone: 6(108)696-303075 [place] [address] 09-10-2022 10:59-0500 Diastolic blood pressure 81 mm[Hg] Dr. Harlan Ford Work Phone: 3(581)652-675275 [place] [address] 09-10-2022 10:59-0500 Heart rate 85 /min Dr. Harlan Ford Work Phone: 4(373)763-412875 [place] [address] 09-10-2022 10:59-0500 Respiratory rate 18 /min Dr. Harlan Ford Work Phone: 6(969)842-440375 [place] [address] 09-10-2022 10:59-0500 SaO2% (BldA) [Mass fraction] 94 % Dr. Harlan Ford Work Phone: 3(862)613-398175 [place] [address] 09-10-2022 10:59-0500 Systolic blood pressure 151 mm[Hg] Dr. Harlan Ford Work Phone: 2(291)188-086175 [place] [address] 09-06-2022 16:13-0500 Diastolic blood pressure 70 mm[Hg] [facility] 09-06-2022 16:13-0500 Heart rate 68 /min [facility] 09-06-2022 16:13-0500 Respiratory rate 16 /min [facility] 09-06-2022 16:13-0500 SaO2% (BldA) [Mass fraction] 96 % [facility] 09-06-2022 16:13-0500 Systolic blood pressure 154 mm[Hg] [facility] 09-06-2022 13:19-0500 Body height 170.18 cm [facility] 09-06-2022 13:19-0500 Body mass index (BMI) [Ratio] 30.9 kg/m2 [facility] 09-06-2022 13:19-0500 Body weight 89.5 kg [facility] 09-06-2022 13:14-0500 Body temperature 97.2 [degF] [facility] 09-05-2022 14:15-0500 Body height 171 cm Roshan Ray MD Work Phone: [facility] 09-05-2022 14:15-0500 Body weight 91.17 kg Roshan Ray MD Work Phone: [facility] 09-05-2022 14:15-0500 Diastolic blood pressure 54 mm[Hg] Roshan Ray MD Work Phone: [facility] 09-05-2022 14:15-0500 Heart rate 72 /min Roshan Ray MD Work Phone: [facility] 09-05-2022 14:15-0500 SaO2% (BldA) [Mass fraction] 96 % Roshan Ray MD Work Phone: [facility] 09-05-2022 14:15-0500 Systolic blood pressure 118 mm[Hg] Roshan Ray MD Work Phone: [facility] 08-08-2022 13:58-0500 Body temperature 97 [degF] Harlan Ford DO Work Phone: [facility] 08-08-2022 13:58-0500 Body weight 93.44 kg Harlan Caraballorison DO Work Phone: [facility] 08-08-2022 13:58-0500 Diastolic blood pressure 60 mm[Hg] Harlan Leahyon DO Work Phone: [facility] 08-08-2022 13:58-0500 Heart rate 80 /min Harlan Ford DO Work Phone: [facility] 08-08-2022 13:58-0500 Respiratory rate 16 /min Harlan Ford DO Work Phone: [facility] 08-08-2022 13:58-0500 Systolic blood pressure 120 mm[Hg] Harlan Ford DO Work Phone: [facility] 01-31-2022 13:51-0400 Body weight 91.72 kg Jose Ursula C++ QUANT DEVELOPER.SALES SUPPORT COORDINATOR Work Phone: [facility] 01-31-2022 13:51-0400 Diastolic blood pressure 70 mm[Hg] Jose Ursula C++ QUANT DEVELOPER.SALES SUPPORT COORDINATOR Work Phone: [facility] 01-31-2022 13:51-0400 Heart rate 76 /min Jose Ursula C++ QUANT DEVELOPER.SALES SUPPORT COORDINATOR Work Phone: [facility] 01-31-2022 13:51-0400 Respiratory rate 16 /min Jose Ursula C++ QUANT DEVELOPER.SALES SUPPORT COORDINATOR Work Phone: [facility] 01-31-2022 13:51-0400 SaO2% (BldA) [Mass fraction] 96 % Jose Ursula C++ QUANT DEVELOPER.SALES SUPPORT COORDINATOR Work Phone: [facility] 01-31-2022 13:51-0400 Systolic blood pressure 122 mm[Hg] Jose Ursula C++ QUANT DEVELOPER.SALES SUPPORT COORDINATOR Work Phone: [facility] 10-31-2021 14:15-0400 Body height 171 cm Harlan Ford DO Work Phone: [facility] 10-31-2021 14:15-0400 Body weight 90.27 kg Harlan Ford DO Work Phone: [facility] 10-31-2021 14:15-0400 Diastolic blood pressure 80 mm[Hg] Harlan Ford DO Work Phone: [facility] 10-31-2021 14:15-0400 Heart rate 72 /min Harlan Ford DO Work Phone: [facility] 10-31-2021 14:15-0400 Respiratory rate 12 /min Harlan Ford DO Work Phone: [facility] 10-31-2021 14:15-0400 Systolic blood pressure 138 mm[Hg] Harlan Ford DO Work Phone: [facility] 08-29-2021 12:40-0500 Body temperature 96.62 [degF] DR RADHA CHOI MD [facility] 08-29-2021 12:40-0500 Diastolic Blood Pressure NBP [address] RADHA CHOI MD [facility] 08-29-2021 12:40-0500 Heart rate 79 /min DR RADHA CHOI MD [facility] 08-29-2021 12:40-0500 Respiratory rate 18 /min DR RADHA CHOI MD [facility] 08-29-2021 12:40-0500 Systolic Blood Pressure NBP [address] RADHA CHOI MD [facility] 08-29-2021 11:03-0500 Diastolic Blood Pressure NBP [address] RADHA CHOI MD [facility] 08-29-2021 11:03-0500 Heart rate 75 /min DR RADHA CHOI MD [facility] 08-29-2021 11:03-0500 Respiratory rate 18 /min DR RADHA CHOI MD [facility] 08-29-2021 11:03-0500 Systolic Blood Pressure NBP [address] RADHA CHOI MD [facility] 08-29-2021 10:55-0500 Diastolic Blood Pressure NBP [address] RADHA CHOI MD [facility] 08-29-2021 10:55-0500 Heart rate 75 /min DR RADHA CHOI MD [facility] 08-29-2021 10:55-0500 Respiratory rate 20 /min DR RADHA CHOI MD [facility] 08-29-2021 10:55-0500 Systolic Blood Pressure NBP [address] RADHA CHOI MD [facility] 08-29-2021 10:15-0500 Body temperature 96.44 [degF] DR RADHA CHOI MD [facility] 08-29-2021 05:54-0500 Body temperature 97.88 [degF] DR RADHA CHOI MD [facility] 08-29-2021 05:54-0500 Heart rate 79 /min DR RADHA CHOI MD [facility] 08-18-2021 13:100500 Body height [address] RADHA CHOI MD [facility] 08-18-2021 13:10050 Body weight 92.[address] RADHA CHOI MD [facility] Encounters Encounter Date Encounter Type Care Provider Facility Start: 01-27-2025 ambulatory Juan Campbell Facility: [facility] Start: 01-27-2025 End: 01-27-2025 ambulatory Harlan Ford Facility:[facility] Start: 01-25-2025 End: 01-25-[address] Sony López MD -[facility] Work Phone: Start: 01-25-2025 End: 01-25-[address] Harlan Ford DO Work Phone: -[facility] Start: 01-19-2025 ambulatory Harlan Ford Facilit y:[facility] Start: 01-19-2025 Registered Recurring Torri CARL -Laboratory Work Phone: Start: 12-23-2024 End: 12-23-[address] Juan Campbell MD -[facility] Work Phone: Start: 12-23-2024 End: 12-23-[address] Harlan Ford DO Work Phone: [facility] Work Phone: Start: 12-22-2024 End: 12-22-2024 Patient encounter procedure Harlan Ford DO Work Phone: [facility] Comment on above: Medicare annual well ness visit, subsequent (Primary Dx); Type 2 diabetes mellitus with diabetic polyneuropathy, without long-term current use of insulin (HCC); Acute cystitis with hematuria; Other polyneuropathy; Primary hypertension; PAD (peripheral artery disease); Mixed hyperlipidemia; History of stroke with residual effects; Overweight with body mass index (BMI) of 29 to 29.9 in adult Start: 12-22-2024 End: 12-22-2024 ambulatory HARLAN FORD Facility:[facility] Start: 12-15-2024 End: 12-15-[address] Harlan Ford DO Work Phone: -Laboratory Start: 12-15-2024 End: 12-15-2024 Discharged Recurring Torri Mendoza PA -Laboratory Work Phone: Start: 12-15-2024 Registered Recurring Torri Mendoza PA -Laboratory Work Phone: Start: 12-11-2024 End: 12-11-[address] Harlan Ford DO Work Phone: [facility] Work Phone: Start: 12-11-2024 End: 12-11-[address] Juan Campbell MD -Ultrasound [facility] Work Phone: Start: 12-11-2024 End: 12-11-2024 ambulatory Juan Campbell Facility:[facility] Start: 12-02-2024 End: 12-02-[address] Harlan Ford DO Work Phone: [facility] Work Phone: Start: 12-02-2024 End: 12-02-2024 Discharged Recurring Torri Mendoza PA -Laboratory Work Phone: Start: 12-01-2024 Encounter for preprocedural laboratory examination Juan Campbell [facility] Start: 11-24-2024 End: 11-24-[address] Harlan Ford DO Work Phone: [facility] Work Phone: Start: 11-24-2024 End: 11-24-[address] Juan Campbell MD -Cat Scan [facility] Work Phone: Start: 11-24-2024 End: 11-24-2024 ambulatory Juan Campbell Facility:[facility] Start: 11-20-2024 Registered Recurring Torri Mendoza PA -Laboratory Work Phone: Start: 10-19-2024 End: 11-04-2024 ambulatory Harlan Ford Facility:[facility] Start: 10-19-2024 End: 11-04-2024 Discharged Recurring Torri CARL -Laboratory Work Phone: Start: 10-12-2024 End: 10-12-[address] Harlan Ford DO Work Phone: [facility] Work Phone: Start: 10-12-2024 End: 10-12-[address] Rylan Cee DPEliel -Physical Therapy Work Phone: Start: 10-12-2024 Registered Recurring Torri Mendoza PA -Laboratory Work Phone: Start: 10-09-2024 End: 10-09-[address] Harlan Ford DO Work Phone: [facility] Work Phone: Start: 10-09-2024 End: 10-09-2024 Patient encounter procedure Nellie CARL -[facility] Work Phone: Start: 10-09-2024 End: 10-09-2024 ambulatory Nellie Morris Facility:[facility] Start: 10-06-2024 End: 10-06-2024 Patient encounter procedure Nellie CARL -[facility] Work Phone: Start: 10-06-2024 End: 10-07-2024 Refill Harlan Ford DO Work Phone: [facility] Comment on above: Refill Request Start: 10-06-2024 End: 10-06-2024 ambulatory Nellie Morris Facility:[facility] Start: 09-28-[address] Santosh Cee DPM -Physical Therapy Work Phone: Start: 09-21-[address] Santosh Cee DPM -Physical Therapy Work Phone: Start: 09-16-2024 Non-patient / Non-visit Dr. Sony hart MD -[facility] Start: 09-16-2024 End: 09-16-[address] Harlan Ford DO Work Phone: [facility] Work Phone: Start: 09-16-2024 End: 09-16-2024 Patient encounter procedure Nellie CARL -Cardiovascular Services Work Phone: Start: 09-15-2024 End: 09-16-2024 ambulatory HARLAN FORD Facility:[facility] Start: 09-15-2024 End: 09-15-2024 Patient encounter procedure Harlan Ford DO Work Phone: [facility] Comment on above: Type 2 diabetes vikram itus with diabetic polyneuropathy, without long-term current use of insulin ([facility]) (Primary Dx); Tremor; Primary hypertension; Other polyneuropathy; Mixed hyperlipidemia; Acute pain of right shoulder; PAD (peripheral artery disease) ([facility]); Cerebrovascular accident (CVA) due to stenosis of right carotid artery ([facility]); Vitamin D deficiency Start: 09-10-2024 End: 09-11-2024 Refill Harlan Ford DO Work Phone: [facility] Comment on above: Refill Request Start: 09-07-2024 End: 09-07-2024 Discharged Recurring Torri CARL -Laboratory Work Phone: Start: 09-07-2024 Registered Recurring Torri CARL -Laboratory Work Phone: Start: 09-07-2024 End: 09-07-[address] Harlan Ford DO Work Phone: [facility] Work Phone: Start: 09-04-2024 End: 09-04-2024 Refill Harlan Ford DO Work Phone: [facility] [place] Comment on above: Refill Request Start: 09-02-2024 End: 09-02-2024 ambulatory HARLAN FORD Facility:[facility] Start: 09-02-2024 End: 09-02-2024 Patient encounter procedure Viral Erickson MD Work Phone: [facility] Comment on above: Impacted cerumen of left ear (Primary Dx) Start: 08-24-2024 End: 09-04-2024 ambulatory Harlan Ford Facility:[facility] Start: 08-24-2024 End: 09-04-2024 Discharged Recurring Torri Mendoza PA -Laboratory Work Phone: Start: 08-03-2024 End: 08-03-2024 ambulatory Harlan Ford Facility:[facility] Start: 08-03-2024 End: 08-03-2024 Discharged Recurring Torri Mendoza PA -Laboratory Work Phone: Start: 07-29-2024 End: 07-29-2024 Patient encounter procedure Harlan Ford DO Work Phone: [facility] [place] Comment on above: Acute pain of right shoulder (Primary Dx); Neck pain; Fall, subsequent encounter; Right elbow pain; Primary hypertension; Type 2 diabetes mellitus with diabetic polyneuropathy, without long-term current use of insulin (HCC); Other polyneuropathy Start: 07-29-2024 End: 07-29-2024 ambulatory HARLAN L FORD Facility:[facility] Start: 07-23-2024 End: 07-23-2024 ambulatory HARLAN L FORD Facility:[facility] Start: 07-23-2024 End: 07-23-2024 Office outpatient visit 25 minutes Kalpana Poe PA-C Work Phone: [facility] Comment on above: 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 (Primary Dx); Right elbow pain; Right hand pain; Cervical radiculopathy; DDD (degenerative disc disease), cervical Start: 07-23-2024 End: 07-23-2024 Subsequent hospital visit by physician [facility] Work Phone: Radiology Comment on above: 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 [M25.511, G89.29] Start: 06-29-2024 End: 06-29-2024 Discharged Recurring Torri Mendoza PA -Laboratory Work Phone: Start: 06-29-2024 End: 06-29-2024 ambulatory Torri CARL Facility:[facility] Start: 06-15-2024 End: 06-15-2024 Patient encounter procedure Harlan Ford DO Work Phone: [facility] Comment on above: Type 2 diabetes vikram itus with diabetic polyneuropathy, without long-term current use of insulin ([facility]) (Primary Dx); Mixed hyperlipidemia; Primary hypertension; Other polyneuropathy; PAD (peripheral artery disease) ([facility]); Vitamin D deficiency; Obesity, Class I, BMI 30-34.9 Start: 06-15-2024 End: 06-15-2024 ambulatory HARLAN FORD Facility:[facility] Start: 06-10-2024 End: 07-14-2024 Telephone encounter Harlan Ford DO Work Phone: [facility] Start: 06-10-2024 End: 06-10-2024 ambulatory IDA KELLY GAN Facility:[facility] Start: 06-01-2024 End: 06-06-2024 ambulatory Torri CARL Facility:[facility] Start: 06-01-2024 End: 06-06-2024 Discharged Recurring Torri Mendoza PA -Laboratory Work Phone: Start: 04-20-2024 End: 04-21-2024 Refill Harlan Ford DO Work Phone: [facility] Comment on above: Refill Request Start: 04-07-2024 End: 04-07-2024 ambulatory Torri CARL Facility:[facility] Start: 03-13-2024 End: 03-13-2024 Telephone encounter Matheus CARL Work Phone: [facility] Comment on above: Results Start: 03-11-2024 End: 03-11-2024 ambulatory HARLAN FORD Facility:[facility] Start: 03-11-2024 End: 03-11-2024 Patient encounter procedure Tyrell Corrigan APRN.CNP Work Phone: [facility] Comment on above: Open wound of skin ( Primary Dx) Start: 03-04-2024 End: 03-04-2024 Refill Harlan Ford DO Work Phone: [facility] [place] Comment on above: Results Start: 03-03-2024 End: 03-03-2024 ambulatory HARLAN FORD Facility:[facility] Start: 03-03-2024 End: 03-03-2024 Patient encounter procedure Harlan Ford DO Work Phone: [facility] [place] Comment on above: Rash (Primary Dx); Vasculitis limited to skin; Type 2 diabetes mellitus with diabetic polyneuropathy, without long-term current use of insulin (HCC); Other polyneuropathy; Mixed hyperlipidemia; Primary hypertension Start: 02-27-2024 End: 02-27-2024 ambulatory Torri CARL Facility:[facility] Start: 02-11-2024 Telephone encounter Harlan chery DO Work Phone: [facility] [place] Comment on above: [facility] Call[facility]Request Start: 02-04-2024 End: 02-05-2024 ambulatory Torri CARL Facility:[facility] Start: 01-30-2024 Telephone encounter Harlan chery DO Work Phone: [facility] [place] Comment on above: [facility] Start: 01-29-2024 Refill Harlan Caraballoshukri carroll DO Work Phone: [facility] [place] Comment on above: Refill Request Start: 11-26-2023 End: 11-26-2023 Patient encounter procedure Harlan Waldo Ford DO Work Phone: [facility] Comment on above: Type 2 diabetes vikram itus with diabetic polyneuropathy, without long-term current use of insulin (HCC) (Primary Dx); Rosacea; Abrasion, leg w/o infection; Diabetic ulcer of left midfoot associated with type 2 diabetes mellitus, limited to breakdown of skin (HCC); PAD (peripheral artery disease) (HCC); Thrombocytopenia (HCC); Hypertension, essential; Mixed hyperlipidemia; Atrial fibrillation with rapid ventricular response (HCC); Other polyneuropathy; Actinic keratosis Start: 10-29-2023 End: 11-05-[address] Harlan Ford Work Phone: [facility] Work Phone: Start: 10-29-2023 End: 11-05-[address] Harlan Ford Work Phone: [facility]-Laboratory Work Phone: Start: 10-18-2023 Refill Harlan lazo MD Work Phone: [facility] Comment on above: Refill Request Start: 10-15-2023 Refill Ida Malik ALEXANDER Work Phone: [facility] Comment on above: Refill Request Start: 10-15-2023 Refill Harlan hodges DO Work Phone: [facility] Comment on above: Refill Request Start: 10-01-2023 End: 10-06-[address] Harlan Ford Work Phone: [facility] Work Phone: Start: 10-01-2023 End: 10-06-[address] Harlan Ford Work Phone: [facility]Labor[facility] Work Phone: Start: 10-01-[address] Branden Ford Work Phone: [facility] Work Phone: Start: 09-24-2023 Non-patient / Non-visit Dr. Ashlyn Ford Work Phone: [facility] Start: 09-24-2023 End: 09-24-[address] Harlan Ford Work Phone: [facility] Work Phone: Start: 09-24-2023 End: 09-24-[address] Harlan Ford Work Phone: [facility] Work Phone: Start: 09-03-2023 End: 09-05-[address] Harlan Ford Work Phone: [facility] Work Phone: Start: 09-03-2023 End: 09-05-[address] Harlan Ford Work Phone: [facility] Work Phone: Start: 08-28-2023 End: 08-28-2023 Patient encounter procedure Harlan Ford DO Work Phone: [facility] [place] Comment on above: Type 2 diabetes vikram itus with diabetic polyneuropathy, without long-term current use of insulin ([facility]) (Primary Dx); Mixed hyperlipidemia; Atrial fibrillation with rapid ventricular response ([facility]); Hypertension, essential; Gait disorder; Actinic keratosis; Vitamin D deficiency; Other polyneuropathy; Diabetic ulcer of left midfoot associated with type 2 diabetes mellitus, limited to breakdown of skin ([facility]); PAD (peripheral artery disease) ([facility]); Thrombocytopenia ([facility]) Start: 08-06-2023 End: 08-06-[address] Harlan Ford Work Phone: [facility] Work Phone: Start: 08-06-2023 End: 08-06-[address] Harlan Ford Work Phone: [facility]Laboratory Work Phone: Start: 07-30-2023 End: 07-30-[address] Harlan Ford Work Phone: [facility] Work Phone: Start: 07-23-2023 End: 07-23-[address] Harlan Ford Work Phone: [facility] Work Phone: Start: 07-23-2023 End: 07-23-[address] Harlan Ford Work Phone: [facility]-Laboratory Work Phone: Start: 07-17-2023 Telephone encounter Harlan chery DO Work Phone: [facility] Start: 07-10-2023 End: 07-10-[address] Harlan Ford Work Phone: [facility] Work Phone: Start: 06-10-2023 Refill Harlan hodges DO Work Phone: [facility] Comment on above: Refill Request Start: 05-22-2023 End: 05-22-2023 Patient encounter procedure Harlan Ford DO Work Phone: [facility] Comment on above: Type 2 diabetes vikram itus with diabetic polyneuropathy, without long-term current use of insulin (HCC) (Primary Dx); Mixed hyperlipidemia; Other polyneuropathy; Vitamin D deficiency; Atrial fibrillation with rapid ventricular response (HCC); Acute renal insufficiency; Hypertension, essential; Gait disorder; PAD (peripheral artery disease) ([facility]); Thrombocytopenia (HCC) Start: 03-25-2023 Non-patient / Non-visit Dr. Ashlyn Ford Work Phone: [facility] Start: 03-25-2023 End: 03-25-[address] Harlan Ford Work Phone: [facility] Work Phone: Start: 03-25-2023 End: 03-25-[address] Harlan Ford Work Phone: [facility] Work Phone: Start: 03-22-2023 Refill Harlan Caraballoshukri carroll DO Work Phone: [facility] Comment on above: Refill Request Start: 02-21-2023 Refill Harlan Ayala carroll DO Work Phone: [facility] Comment on above: Refill Request Start: 02-13-2023 End: 02-13-2023 Patient encounter procedure Harlan Ford DO Work Phone: [facility] Comment on above: Acute cystitis with hematuria (Primary Dx); Atrial fibrillation with rapid ventricular response (HCC); Acute diverticulitis; Acute renal insufficiency; Type 2 diabetes mellitus with diabetic polyneuropathy, without long-term current use of insulin (HCC); Gait disorder; Hypertension, essential; Other polyneuropathy Start: 02-13-[address] Harlan Ford [facility] Work Phone: Start: 02-07-2023 End: 02-07-[address] Harlan Ford Work Phone: [facility] Work Phone: Start: 01-25-2023 Non-patient / Non-visit Dr. Ashlyn Ford Work Phone: [facility] Work Phone: Start: 01-25-2023 Non-patient / Non-visit Dr. Ashlyn Ford Work Phone: [facility] Start: 01-24-2023 Non-patient / Non-visit Dr. Ashlyn Ford Work Phone: [facility] Work Phone: Start: 01-24-2023 End: 01-25-2023 Evaluation and management of inpatient Dr. Harlan Ford Work Phone: [facility]-Progressive Care Unit Work Phone: Start: 01-24-[address] Janak Ford Work Phone: [facility] Work Phone: Start: 01-15-2023 Refill Harlan hodges DO Work Phone: [facility] Comment on above: Refill Request Start: 01-05-2023 End: 01-05-2023 Emergency department patient visit Dr. Harlan Ford [facility] Start: 12-16-2022 End: 12-17-2022 Emergency department patient visit Dr. Harlan Ford [facility] Start: 12-05-2022 Refill Harlan hodges DO Work Phone: [facility] [place] Comment on above: Refill Request Start: 11-19-2022 ambulatory Pcp ([facility]) [facility] Start: 11-14-2022 Telephone encounter Harlan chery DO Work Phone: [facility] [place] Comment on above: requesting handicap placard rx Start: 11-13-2022 End: 11-13-2022 Patient encounter procedure Harlan Ford DO Work Phone: [facility] Comment on above: Type 2 diabetes vikram itus with diabetic polyneuropathy, without long-term current use of insulin (HCC) (Primary Dx); PAD (peripheral artery disease) ([facility]); Hypertension, essential; Mixed hyperlipidemia; Other polyneuropathy; Hypercalcemia; Vitamin D deficiency; Benign prostatic hyperplasia with lower urinary tract symptoms, symptom details unspecified; Thrombocytopenia (HCC); Diabetic ulcer of left midfoot associated with type 2 diabetes mellitus, limited to breakdown of skin ([facility]) Start: 11-07-2022 Telephone encounter Harlan chery DO Work Phone: [facility] Comment on above: Orders Start: 10-11-2022 End: 10-11-[address] Harlan Ford Work Phone: [facility] Work Phone: Start: 10-10-2022 End: 10-10-2022 Patient encounter procedure Jose Osborne APRN.CNP Work Phone: [facility] [place] Comment on above: Cerebrovascular acci dent (CVA) due to stenosis of right carotid artery (HCC) (Primary Dx) Start: 09-20-2022 Non-patient / Non-visit Dr. Ashlyn Ford Work Phone: [facility] Start: 09-19-2022 Non-patient / Non-visit Dr. Ashlyn Ford Work Phone: [facility] Start: 09-19-2022 End: 09-20-2022 Evaluation and management of inpatient Dr. Harlan Ford Work Phone: [facility]-Intensive Care Unit Start: 09-13-2022 Telephone encounter Harlan chery DO Work Phone: [facility] Comment on above: Release Of Medical R ecords Start: 09-12-2022 Orders Only Roshan Ray MD Work Phone: Vascular Surgery Comment on above: Peripheral arterial disease (HCC) (Primary Dx) Start: 09-10-2022 End: 09-10-[address] Harlan Ford Work Phone: [facility] Start: 09-06-2022 End: 09-06-2022 Emergency department patient visit [facility] Start: 09-05-2022 End: 09-05-2022 Patient encounter procedure Roshan Ray MD Work Phone: V[facility] Surgery Comment on above: Bilateral carotid ar ranulfo stenosis (Primary Dx); PAD (peripheral artery disease) (HCC); Peripheral arterial disease (HCC); Aortoiliac stenosis (HCC) Start: 08-22-2022 Telephone encounter Harlan chery DO Work Phone: [facility] Comment on above: Results Start: 08-10-2022 Telephone encounter Harlan chery DO Work Phone: [facility] Comment on above: Results Start: 08-08-2022 End: 08-08-2022 Patient encounter procedure Harlan Ford DO Work Phone: [facility] Comment on above: Type 2 diabetes vikram itus with diabetic polyneuropathy, without long-term current use of insulin (HCC) (Primary Dx); Decreased pulses in feet; Mass of left side of neck; Actinic keratosis; Cold intolerance; Muscle cramp; Hypertension, essential; Mixed hyperlipidemia; Other polyneuropathy Start: 02-05-2022 Telephone encounter Jose Gomez YADIRA.SALES SUPPORT COORDINATOR Work Phone: [facility] [place] Comment on above: Results Start: 01-31-2022 End: 01-31-2022 Patient encounter procedure Jose Osborne C++ QUANT DEVELOPER.SALES SUPPORT COORDINATOR Work Phone: [facility] [place] Comment on above: Calf cramp (Primary Dx); Hypertension, essential; Type 2 diabetes mellitus with diabetic polyneuropathy, without long-term current use of insulin (HCC); Mixed hyperlipidemia Start: 01-31-2022 Refill Ida Gabrielle bender C++ QUANT DEVELOPER.SALES SUPPORT COORDINATOR Work Phone: [facility] [place] Comment on above: Refill Request Start: 01-02-2022 Telephone encounter Harlan pantojatal DO Work Phone: [facility] Comment on above: Refill Request Start: 01-01-2022 Refill Harlan Ayala son DO Work Phone: [facility] Comment on above: Refill Request Start: 12-26-2021 Refill Harlan hodges DO Work Phone: [facility] Comment on above: Refill Request Start: 10-31-2021 End: 10-31-2021 Patient encounter procedure Harlan Fodr DO Work Phone: [facility] Comment on above: Hypertension, essent ial (Primary Dx); Mixed hyperlipidemia; Other polyneuropathy; Primary osteoarthritis of left knee; Type 2 diabetes mellitus with diabetic polyneuropathy, without long-term current use of insulin (HCC); Vitamin D deficiency Start: 08-29-2021 End: 08-29-[address] RADHA CHOI MD [facility] Start: 08-18-2021 End: 08-18-[address] RADHA CHOI MD [facility] Start: 08-18-2021 End: 08-18-[address] RADHA CHOI MD [facility] Procedures Date Procedure Procedure Detail Performing Clinician Start: 12-22-2024 Hemoglobin A1c/Hemoglobin.total in Blood Harlan Ford DO Work Phone: Start: 12-11-2024 Ultrasonography of thyroid and parathyroid Dr. Harlan Ford DO Work Phone: Start: 11-24-2024 CT of soft tissues o f neck with contrast Dr. Harlan Ford DO Work Phone: Start: 10-09-2024 US scan of thyroid Dr. Harlan Ford DO Work Phone: Start: 07-23-2024 Radex elbow complete minimum 3 views Kalpana Clutter PA-C Work Phone: Start: 11-26-2023 Adult depression screening assessment Harlan Ford DO Work Phone: Start: 01-25-2023 CT of abdomen and pe lvis without contrast Dr. Harlan Ford Work Phone: Start: 01-24-[address] Branden Ford Work Phone: Start: 01-24-2023 Plain chest X-ray Dr. Austen Ford Work Phone: Start: 01-05-[address] Branden Ford Work Phone: Start: 09-19-[address] Harlan Ford Work Phone: Start: 09-06-2022 Plain chest X-ray Start: 09-06-2022 CT of head without contrast Start: 09-06-2022 CT angiography of he ad and neck Start: 08-29-[address] RADHA CHOI MD Comment on above: LEFT, ROBOTIC ASSIST ED Start: 02-28-2021 Adult depression screening assessment Harlan Ford DO Work Phone: Start: 04-11-2020 Colonoscopy Harlan quinteros DO Work Phone: Bilateral cataracts (disorder) DR RADHA CHOI MD Cholecystectomy DR RADHA SAWANT MD Colonoscopy DR RADHA Adkins MD History of carotid endarterectomy S/P carotid endarterectomy Dr. Harlan Ford Work Phone: Comment on above: R CEA 09/2022 History of carotid endarterectomy S/P carotid endarterectomy Nellie Morris PA Inguinal hernia (disorder) DR RADHA CHOI MD Umbilical hernia (disorder) DR RADHA CHOI MD Plan of Treatment Date Care Activity Detail Author Start: 01-03-2031 Urine microalbumin profile DTa P,Tdap,Td Vaccine (2 - Td or Tdap) [facility] Start: 04-11-2030 Colonoscopy COLONOSCOPY [facility] Start: 04-11-2030 COLORECTAL CANCER SCREENING COLORECTAL CANCER SCREENING [facility] Start: 12-22-2025 Annual PCP Team [employer]ist cassandra Disease Visit Annual PCP Team Chronic Disease Visit [facility] Start: 12-22-2025 Medicare Annual Well ness Visit Medicare Annual Wellness Visit [facility] Start: 09-15-2025 Annual PCP Team [employer] cassandra Disease Visit Annual PCP Team Chronic Disease Visit [facility] Start: 09-15-2025 BP Controlled (<130/80) BP Controlle d (<130/80) [facility] Start: 07-29-2025 Annual PCP Team [employer] cassandra Disease Visit Annual PCP Team Chronic Disease Visit [facility] Start: 06-23-2025 Hemoglobin A1c measurement HbA1C [facility] Start: 06-15-2025 Annual PCP Team [employer] cassandra Disease Visit Annual PCP Team Chronic Disease Visit [facility] Start: 06-15-2025 BP Controlled (<130/80) BP Controlle d (<130/80) [facility] Start: 06-15-2025 Covid-19 Vaccine () Covid-19 Vaccine () [facility] Comment on above: Postponed from 03/08 (Declined at this time) Start: 06-10-2025 Hepatitis B surface antibody level LDL Cholesterol [facility] Start: 06-08-2025 End: 06-08-2025 Patient encounter procedure 06/08/2025 10:00 AM EST Office Visit Family [facility] [address] [place], [place] [id number] Harlan Ford DO [address] [place], [place] [id number] 6 month follow up [facility]ie [facility] Comment on above: 6 month follow up Start: 03-25-2025 End: 06-24-2025 CBC panel - Blood by Automated count COMPLETE BLOOD COUNT Lab Routine Type 2 diabetes mellitus with diabetic polyneuropathy, without long-term current use of insulin (HCC) Expected: 03/25/2025, Expires: 06/24/2025 [facility] Comment on above: Expected: 03/25/2025 , Expires: 06/24/2025 Start: 03-25-2025 End: 06-24-2025 Comprehensive metabolic 2000 panel - Serum or Plasma COMPREHENSIVE METABOLIC PANEL Lab Routine Type 2 diabetes mellitus with diabetic polyneuropathy, without long-term current use of insulin (HCC) Expected: 03/25/2025, Expires: 06/24/2025 [facility] Work Phone: Comment on above: Expected: 03/25/2025 , Expires: 06/24/2025 Start: 03-25-2025 End: 06-24-2025 Hemoglobin A1c in Blood HEMOGLOBIN A1C Lab Routine Type 2 diabetes mellitus with diabetic polyneuropathy, without long-term current use of insulin (HCC) Expected: 03/25/2025, Expires: 06/24/2025 [facility] Comment on above: Expected: 03/25/2025 , Expires: 06/24/2025 Start: 03-25-2025 End: 06-24-2025 Lipid 1996 panel - Serum or Plasma LIPID PANEL, FASTING Lab Routine Mixed hyperlipidemia Expected: 03/25/2025, Expires: 06/24/2025 [facility] Comment on above: Expected: 03/25/2025 , Expires: 06/24/2025 Start: 03-03-2025 Annual PCP Team [employer] cassandra Disease Visit Annual PCP Team Chronic Disease Visit [facility] Start: 03-03-2025 BP Controlled (<130/80) BP Controlle d (<130/80) [facility] Start: 03-03-2025 Diabetic foot examination Diabetic F oot Exam [facility] Start: 01-20-2025 Glaucoma screening Dilated Retinal E xam [facility] Start: 12-22-2024 End: 12-22-2024 Patient encounter procedure 12/22/2024 10:00 AM EDT Office Visit Family Mikie [place] [address] [place] [id number] Harlan Ford DO [address] [facility] [place] [id number] 3 month follow up Family [facility]ie [place] Comment on above: 3 month follow up Start: 12-09-2024 Hemoglobin A1c measurement HbA1C [facility] Start: 11-25-2024 Annual PCP Team [employer] cassandra Disease Visit Annual PCP Team Chronic Disease Visit [facility] Start: 11-25-2024 Anxiety Screening Anxiety Screening [facility] Start: 11-25-2024 BP Controlled (<130/80) BP Controlle d (<130/80) [facility] Start: 11-25-2024 Depression Screening Depression Scre ening [facility] Start: 10-12-2024 [facility] Start: 10-08-2024 Patient referral [facility] Work Phone: Start: 09-15-2024 End: 09-15-2024 Patient encounter procedure 09/15/2024 9:40 AM EDT Office Visit Family Mikie [place] [address] [facility] [place] [id number] Harlan Ford DO [address] [facility] [place] [id number] 3 month follow up [facility] [place] Comment on above: 3 month follow up Start: 08-28-2024 Annual PCP Team [employer] cassandra Disease Visit Annual PCP Team Chronic Disease Visit [facility] Start: 08-28-2024 BP Controlled (<130/80) BP Controlle d (<130/80) [facility] Start: 08-21-2024 Glaucoma screening Dilated Retinal E xam [facility] Start: 06-15-2024 End: 06-15-2024 Patient encounter procedure 06/15/2024 9:20 AM EST Office Visit Family Mikie Wright [address] [place], [place] [address] Harlan Ford DO [address] [place], [place] [id number] 3 month follow up Family Mikie Wright Comment on above: 3 month follow up Start: 05-22-2024 Annual PCP Team [employer] Specialist cassandra Disease Visit Annual PCP Team Chronic Disease Visit [facility] Start: 05-22-2024 BP Controlled (<130/80) BP Controlle d (<130/80) [facility] Start: 05-22-2024 Covid-19 Vaccine () Covid-19 Vaccine () [facility] Comment on above: Postponed from 03/08 (Declined at this time) Start: 03-11-2024 End: 06-10-2024 Bacteria identified in Wound by Culture [facility] Work Phone: Comment on above: Expected: 03/11/2024 , Expires: 06/10/2024 Start: 03-11-2024 End: 06-10-2024 Herpes simplex virus+Varicella zoster virus DNA [Presence] in Unspecified specimen by JOSÉ with probe detection [facility] Comment on above: Expected: 03/11/2024 , Expires: 06/10/2024 Start: 03-08-2024 Covid-19 Vaccine () Covid-19 Vaccine () [facility] Start: 03-08-2024 Covid-19 Vaccine () Covid-19 Vaccine () [facility] Start: 03-08-2024 Influenza vaccination Influenza Vacc ine (#1) [facility] Start: 03-03-2024 End: 06-02-2024 Borrelia burgdorferi IgG and IgM panel - Serum [facility] Comment on above: Expected: 03/03/2024 , Expires: 06/02/2024 Start: 03-03-2024 End: 06-02-2024 C reactive protein [Mass/volume] in Serum or Plasma [facility] Work Phone: Comment on above: Expected: 03/03/2024 , Expires: 06/02/2024 Start: 03-03-2024 End: 06-02-2024 Erythrocyte sedimentation rate [facility] Comment on above: Expected: 03/03/2024 , Expires: 06/02/2024 Start: 03-03-2024 End: 06-02-2024 Extractable nuclear Ab panel - Serum [facility] Comment on above: Expected: 03/03/2024 , Expires: 06/02/2024 Start: 03-03-2024 End: 06-02-2024 Nuclear Ab [Presence] in Serum by Immunoassay [facility] Comment on above: Expected: 03/03/2024 , Expires: 06/02/2024 Start: 03-03-2024 End: 03-03-2024 Patient encounter procedure 03/03/2024 10:00 AM EDT Office Visit [facility] [address] [place], [place] [id number] Harlan Ford DO [address] [place] [address] 3 month follow up [facility] Comment on above: 3 month follow up Start: 02-14-2024 ANNUAL PCP TEAM SUPERVISOR [employer]IG[employer]ESSING CASSANDRA DISEASE VISIT ANNUAL PCP TEAM CHRONIC DISEASE VISIT [facility] Start: 02-14-2024 BP CONTROLLED (<130/80) BP CONTROLLE D (<130/80) [facility] Start: 02-07-2024 Hepatitis B screening URINE ALBUMIN:CREATININE RATIO [facility] Start: 02-07-2024 Hepatitis B surface antibody level LDL CHOLESTEROL [facility] Start: 01-11-2024 ANNUAL PCP TEAM SUPERVISOR CIGAR PROCESSING CASSANDRA DISEASE VISIT ANNUAL PCP TEAM CHRONIC DISEASE VISIT [facility] Start: 01-11-2024 BP CONTROLLED (<130/80) BP CONTROLLE D (<130/80) [facility] Start: 12-12-2023 Glaucoma screening Dilated Retinal E xam [facility] Start: 12-12-2023 Hepatitis C antibody , confirmatory test DILATED RETINAL EXAM [facility] Start: 11-26-2023 End: 02-25-2024 25-hydroxyvitamin D3 [Mass/volume] in Serum or Plasma VITAMIN D 25 HYDROXY Lab Routine Vitamin D deficiency Expected: 11/26/2023, Expires: 02/25/2024 [facility] Work Phone: Comment on above: Expected: 11/26/2023 , Expires: 02/25/2024 Start: 11-26-2023 End: 02-25-2024 Cobalamin (Vitamin B12) [Mass/volume] in Serum or Plasma VITAMIN B12 BLOOD Lab Routine Other polyneuropathy Expected: 11/26/2023, Expires: 02/25/2024 [facility] Work Phone: Comment on above: Expected: 11/26/2023 , Expires: 02/25/2024 Start: 11-26-2023 End: 02-25-2024 Comprehensive metabolic 2000 panel - Serum or Plasma COMP METABOLIC PANEL Lab Routine Type 2 diabetes mellitus with diabetic polyneuropathy, without long-term current use of insulin (HCC) Expected: 11/26/2023, Expires: 02/25/2024 [facility] Work Phone: Comment on above: Expected: 11/26/2023 , Expires: 02/25/2024 Start: 11-26-2023 End: 02-25-2024 Hemoglobin A1c in Blood HGB A1C Lab Routine Type 2 diabetes mellitus with diabetic polyneuropathy, without long-term current use of insulin (HCC) Expected: 11/26/2023, Expires: 02/25/2024 [facility] Work Phone: Comment on above: Expected: 11/26/2023 , Expires: 02/25/2024 Start: 11-26-2023 End: 02-25-2024 Lipid 1996 panel - Serum or Plasma LIPID PANEL BASIC Lab Routine Mixed hyperlipidemia Expected: 11/26/2023, Expires: 02/25/2024 [facility] Work Phone: Comment on above: Expected: 11/26/2023 , Expires: 02/25/2024 Start: 11-18-2023 Hemoglobin A1c measurement HbA1C [facility] Start: 11-18-2023 Hemoglobin A1c/Hemoglobin.total in Blood HbA1C [facility] Start: 11-14-2023 3 comp foot exam completed DIABETIC FOOT EXAM [facility] Start: 11-14-2023 ANNUAL PCP TEAM SUPERVISOR CIG[employer] PROCESSING CASSANDRA DISEASE VISIT ANNUAL PCP TEAM CHRONIC DISEASE VISIT [facility] Start: 11-14-2023 BP CONTROLLED (<130/80) BP CONTROLLE D (<130/80) [facility] Start: 11-14-2023 Diabetic foot examination Diabetic F oot Exam [facility] Start: 10-11-2023 ANNUAL PCP TEAM SUPERVISOR CIG[employer] PROCESSING CASSANDRA DISEASE VISIT ANNUAL PCP TEAM CHRONIC DISEASE VISIT [facility] Start: 10-11-2023 BP CONTROLLED (<130/80) BP CONTROLLE D (<130/80) [facility] Start: 09-06-2023 BP CONTROLLED (<130/80) BP CONTROLLE D (<130/80) [facility] Start: 08-22-2023 End: 11-21-2023 CBC W Auto Differential panel - Blood CBC + DIFF Lab Routine Type 2 diabetes mellitus with diabetic polyneuropathy, without long-term current use of insulin (HCC) Other polyneuropathy Expected: 08/22/2023, Expires: 11/21/2023 [facility] Work Phone: Comment on above: Expected: 08/22/2023 , Expires: 11/21/2023 Start: 08-22-2023 End: 11-21-2023 Cobalamin (Vitamin B12) [Mass/volume] in Serum or Plasma VITAMIN B12 BLOOD Lab Routine Type 2 diabetes mellitus with diabetic polyneuropathy, without long-term current use of insulin (HCC) Other polyneuropathy Expected: 08/22/2023, Expires: 11/21/2023 [facility] Work Phone: Comment on above: Expected: 08/22/2023 , Expires: 11/21/2023 Start: 08-22-2023 End: 11-21-2023 Comprehensive metabolic 2000 panel - Serum or Plasma COMP METABOLIC PANEL Lab Routine Type 2 diabetes mellitus with diabetic polyneuropathy, without long-term current use of insulin (HCC) Other polyneuropathy Expected: 08/22/2023, Expires: 11/21/2023 [facility] Work Phone: Comment on above: Expected: 08/22/2023 , Expires: 11/21/2023 Start: 08-22-2023 End: 11-21-2023 Hemoglobin A1c in Blood HGB A1C Lab Routine Type 2 diabetes mellitus with diabetic polyneuropathy, without long-term current use of insulin (HCC) Expected: 08/22/2023, Expires: 11/21/2023 [facility] Work Phone: Comment on above: Expected: 08/22/2023 , Expires: 11/21/2023 Start: 08-22-2023 End: 11-21-2023 Thyrotropin [Units/volume] in Serum or Plasma TSH BLD Lab Routine Type 2 diabetes mellitus with diabetic polyneuropathy, without long-term current use of insulin (HCC) Other polyneuropathy Expected: 08/22/2023, Expires: 11/21/2023 [facility] Work Phone: Comment on above: Expected: 08/22/2023 , Expires: 11/21/2023 Start: 08-09-2023 Hemoglobin A1c/Hemoglobin.total in Blood HBA1C [facility] Start: 08-08-2023 ANNUAL PCP TEAM SUPERVISOR CIG[employer] PROCESSING CASSANDRA DISEASE VISIT ANNUAL PCP TEAM CHRONIC DISEASE VISIT [facility] Start: 08-08-2023 BP CONTROLLED (<130/80) BP CONTROLLE D (<130/80) [facility] Start: 08-03-2023 Hepatitis B surface antibody level LDL CHOLESTEROL [facility] Start: 07-16-2023 Hepatitis C antibody , confirmatory test DILATED RETINAL EXAM [facility] Start: 07-08-2023 Behavioral Health Screening Behavioral Health Screening [facility] Start: 05-12-2023 Hemoglobin A1c/Hemoglobin.total in Blood HBA1C [facility] Start: 03-08-2023 Influenza vaccination [facility] Start: 02-13-2023 End: 04-15-2023 ALBUMIN/CREAT RATIO RND UR ALBUMIN/CREAT RATIO RND UR Lab Routine Type 2 diabetes mellitus with diabetic polyneuropathy, without long-term current use of insulin ([facility]) Expected: 02/13/2023, Expires: 04/15/2023 [facility] Work Phone: Comment on above: Expected: 02/13/2023 , Expires: 04/15/2023 Start: 02-13-2023 End: 04-15-2023 Cobalamin (Vitamin B12) [Mass/volume] in Serum or Plasma VITAMIN B12 BLOOD Lab Routine Type 2 diabetes mellitus with diabetic polyneuropathy, without long-term current use of insulin (HCC) PAD (peripheral artery disease) ([facility]) Other polyneuropathy Expected: 02/13/2023, Expires: 04/15/2023 [facility] Work Phone: Comment on above: Expected: 02/13/2023 , Expires: 04/15/2023 Start: 02-13-2023 End: 04-15-2023 Comprehensive metabolic 2000 panel - Serum or Plasma COMP METABOLIC PANEL Lab Routine Hypercalcemia Expected: 02/13/2023, Expires: 04/15/2023 [facility] Work Phone: Comment on above: Expected: 02/13/2023 , Expires: 04/15/2023 Start: 02-13-2023 End: 04-15-2023 Hemoglobin A1c in Blood HGB A1C Lab Routine Type 2 diabetes mellitus with diabetic polyneuropathy, without long-term current use of insulin ([facility]) Expected: 02/13/2023, Expires: 04/15/2023 [facility] Work Phone: Comment on above: Expected: 02/13/2023 , Expires: 04/15/2023 Start: 02-13-2023 End: 04-15-2023 Lipid 1996 panel - Serum or Plasma LIPID PANEL BASIC Lab Routine Mixed hyperlipidemia Expected: 02/13/2023, Expires: 04/15/2023 [facility] Work Phone: Comment on above: Expected: 02/13/2023 , Expires: 04/15/2023 Start: 02-13-2023 End: 04-15-2023 Parathyrin.intact [Mass/volume] in Serum or Plasma PTH INTACT BLD Lab Routine Hypercalcemia Expected: 02/13/2023, Expires: 04/15/2023 [facility] Work Phone: Comment on above: Expected: 02/13/2023 , Expires: 04/15/2023 Start: 01-31-2023 ANNUAL PCP TEAM SUPERVISOR CIGAR PROCESSING CASSANDRA DISEASE VISIT ANNUAL PCP TEAM CHRONIC DISEASE VISIT [facility] Start: 01-31-2023 BP CONTROLLED (<130/80) BP CONTROLLE D (<130/80) [facility] Start: 01-25-2023 Hepatitis B surface antibody level LDL CHOLESTEROL [facility] Start: 01-25-2023 Patient discharge [facility] Start: 01-25-2023 T4 free measurement [facility] Start: 01-25-2023 Triiodothyronine, fr ee measurement [facility] Start: 01-25-2023 [facility] Start: 01-24-2023 Following clinical p athway protocol [facility] Start: 01-24-2023 Vitamin B12 measurement [facility] Start: 01-24-2023 Care regimes management [facility] Start: 01-24-2023 Notification of physician [facility] Start: 01-24-2023 Admission procedure [facility] Start: 01-24-2023 Assessment of risk o f venous thromboembolism [facility] Start: 01-24-2023 Cardiac monitoring [facility] Start: 01-24-2023 Insertion of cathete r into peripheral vein [facility] Start: 01-24-2023 Measuring intake and output [facility] Start: 01-24-2023 Providing care accor ding to standard [facility] Start: 01-24-2023 Referral to demand generator manager [facility] Start: 01-24-2023 Referral to occupati onal therapist [facility] Start: 01-24-2023 Referral to service [facility] Start: 01-24-2023 Verification routine [facility] Start: 01-24-2023 End: 01-24-2023 [facility] Start: 01-24-2023 End: 01-24-2023 [facility] Start: 01-24-2023 Bacteria identified in Urine by Culture Urine Culture [facility] Start: 01-05-2023 Bacteria identified in Urine by Culture Urine Culture [facility] Start: 01-05-2023 [facility] Start: 11-07-2022 End: 01-07-2023 CBC panel - Blood by Automated count CBC Lab Routine Type 2 diabetes mellitus with diabetic polyneuropathy, without long-term current use of insulin ([facility]) Expected: 11/07/2022, Expires: 01/07/2023 [facility] Work Phone: Comment on above: Expected: 11/07/2022 , Expires: 01/07/2023 Start: 11-07-2022 End: 01-07-2023 Comprehensive metabolic 2000 panel - Serum or Plasma COMP METABOLIC PANEL Lab Routine Hypersplenism Expected: 11/07/2022, Expires: 01/07/2023 [facility] Work Phone: Comment on above: Expected: 11/07/2022 , Expires: 01/07/2023 Start: 11-07-2022 End: 01-07-2023 Hemoglobin A1c in Blood HGB A1C Lab Routine Type 2 diabetes mellitus with diabetic polyneuropathy, without long-term current use of insulin ([facility]) Expected: 11/07/2022, Expires: 01/07/2023 [facility] Work Phone: Comment on above: Expected: 11/07/2022 , Expires: 01/07/2023 Start: 11-01-2022 Hemoglobin A1c/Hemoglobin.total in Blood HBA1C [facility] Start: 10-31-2022 3 comp foot exam completed DIABETIC FOOT EXAM [facility] Start: 10-31-2022 ANNUAL PCP TEAM SUPERVISOR CIGAR PROCESSING CASSANDRA DISEASE VISIT ANNUAL PCP TEAM CHRONIC DISEASE VISIT [facility] Start: 09-20-2022 Patient discharge [facility] Start: 09-19-2022 Following clinical p athway protocol [facility] Start: 09-19-2022 Ambulation without limitation [facility] Start: 09-19-2022 Assessment of risk o f venous thromboembolism [facility] Start: 09-19-2022 Care regimes management [facility] Start: 09-19-2022 Catheterization of vein [facility] Start: 09-19-2022 Continuous pulse oximetry [facility] Start: 09-19-2022 Deep breathing and coughing exercises [facility] Start: 09-19-2022 Elevation of head of bed [facility] Start: 09-19-2022 Incentive spirometry [facility] Start: 09-19-2022 Insertion of cathete r into peripheral vein [facility] Start: 09-19-2022 Measuring intake and output [facility] Start: 09-19-2022 Notification of physician [facility] Start: 09-19-2022 Patient referral to dietitian [facility] Start: 09-19-2022 Providing care accor ding to standard [facility] Start: 09-19-2022 Provision of activit y privileges [facility] Start: 09-19-2022 Referral to occupati onal therapist [facility] Start: 09-19-2022 Referral to service [facility] Start: 09-19-2022 Vital signs measurements [facility] Start: 09-19-2022 [facility] Start: 09-19-2022 Admission procedure [facility] Start: 09-19-2022 Patient referral to [facility] Start: 09-06-2022 Oxygen therapy [facility] Start: 09-06-2022 [facility] Start: 08-03-2022 End: 10-03-2022 CBC panel - Blood by Automated count CBC Lab Routine Hypertension, essential Type 2 diabetes mellitus with diabetic polyneuropathy, without long-term current use of insulin (HCC) Expected: 08/03/2022, Expires: 10/03/2022 [facility] Work Phone: Comment on above: Expected: 08/03/2022 , Expires: 10/03/2022 Start: 08-03-2022 End: 10-03-2022 Comprehensive metabolic 2000 panel - Serum or Plasma COMP METABOLIC PANEL Lab Routine Hypertension, essential Type 2 diabetes mellitus with diabetic polyneuropathy, without long-term current use of insulin (HCC) Expected: 08/03/2022, Expires: 10/03/2022 [facility] Work Phone: Comment on above: Expected: 08/03/2022 , Expires: 10/03/2022 Start: 08-03-2022 End: 10-03-2022 Hemoglobin A1c in Blood HGB A1C Lab Routine Hypertension, essential Type 2 diabetes mellitus with diabetic polyneuropathy, without long-term current use of insulin (HCC) Expected: 08/03/2022, Expires: 10/03/2022 [facility] Work Phone: Comment on above: Expected: 08/03/2022 , Expires: 10/03/2022 Start: 08-03-2022 End: 10-03-2022 Lipid 1996 panel - Serum or Plasma LIPID PANEL BASIC Lab Routine Mixed hyperlipidemia Expected: 08/03/2022, Expires: 10/03/2022 [facility] Work Phone: Comment on above: Expected: 08/03/2022 , Expires: 10/03/2022 Start: 07-28-2022 Hemoglobin A1c/Hemoglobin.total in Blood HBA1C [facility] Start: 05-22-2022 Hepatitis B surface antibody level LDL CHOLESTEROL [facility] Start: 03-08-2022 Influenza vaccination INFLUENZA (#1) [facility] Start: 02-28-2022 Adult depression scr eening assessment DEPRESSION SCREENING [facility] Start: 01-30-2022 End: 04-01-2022 Comprehensive metabolic 2000 panel - Serum or Plasma COMP METABOLIC PANEL Lab Routine Type 2 diabetes mellitus with diabetic polyneuropathy, without long-term current use of insulin (HCC) Expected: 01/30/2022, Expires: 04/01/2022 [facility] Work Phone: Comment on above: Expected: 01/30/2022 , Expires: 04/01/2022 Start: 01-30-2022 End: 04-01-2022 Hemoglobin A1c/Hemoglobin.total in Blood HGB A1C Lab Routine Type 2 diabetes mellitus with diabetic polyneuropathy, without long-term current use of insulin (HCC) Expected: 01/30/2022, Expires: 04/01/2022 [facility] Work Phone: Comment on above: Expected: 01/30/2022 , Expires: 04/01/2022 Start: 01-30-2022 End: 04-01-2022 LIPID PANEL BASIC LIPID PANEL BASIC Lab Routine Mixed hyperlipidemia Expected: 01/30/2022, Expires: 04/01/2022 [facility] Work Phone: Comment on above: Expected: 01/30/2022 , Expires: 04/01/2022 Start: 01-30-2022 End: 04-01-2022 VITAMIN B12 BLOOD VITAMIN B12 BLOOD Lab Routine Other polyneuropathy Expected: 01/30/2022, Expires: 04/01/2022 [facility] Work Phone: Comment on above: Expected: 01/30/2022 , Expires: 04/01/2022 Start: 01-30-2022 End: 04-01-2022 VITAMIN D 25 HYDROXY VITAMIN D 25 HYDROXY Lab Routine Other polyneuropathy Vitamin D deficiency Expected: 01/30/2022, Expires: 04/01/2022 [facility] Work Phone: Comment on above: Expected: 01/30/2022 , Expires: 04/01/2022 Start: 01-25-2022 Hemoglobin A1c/Hemoglobin.total in Blood HBA1C [facility] Start: 2021 RSV Vaccine (1 - 1-d ose 75+ series) RSV Vaccine (1 - 1-dose 75+ series) [facility] Start: 11-22-2021 BP CONTROLLED (<130/80) BP CONTROLLE D (<130/80) [facility] Start: 11-16-2021 Hepatitis B screening URINE ALBUMIN:CREATININE RATIO [facility] Start: 08-13-2021 COVID-19 VACCINE (4 - Booster for Pfizer series) COVID-19 VACCINE (4 - Booster for Pfizer series) [facility] Start: 08-02-2021 Hepatitis C antibody , confirmatory test DILATED RETINAL EXAM [facility] Start: 06-07-2021 COVID-19 VACCINE (4 - Booster for Pfizer series) COVID-19 VACCINE (4 - Booster for Pfizer series) [facility] Start: 06-07-2021 COVID-19 VACCINE (4 - Pfizer series) COVID-19 VACCINE (4 - Pfizer series) [facility] Start: 07-15-2019 SHINGRIX VACCINE (3 of 3) ALTAMIRANO GRIX VACCINE (3 of 3) [facility] Start: 04-30-2007 Urine microalbumin profile [facility] Start: 2006 Hepatitis B Vaccine (1 of 3 - Risk 3-dose series) Hepatitis B Vaccine (1 of 3 - Risk 3-dose series) [facility] Start: 2006 RSV Vaccine (1 - 1-d ose 60+ series) RSV Vaccine (1 - 1-dose 60+ series) [facility] Start: 12-30-1991 COLOGUARD (FIT-DNA) COLOGUARD (FIT-D NA) [facility] Start: 12-30-[address] COLONOGRAPHY [facility] Start: 12-30-1991 FECAL OCCULT BLOOD FECAL OCCULT BLOO D [facility] Start: 12-30-1991 SIGMOIDOSCOPY SIGMOIDOSCOPY [facility] Alanine aminotransfe rase [Enzymatic activity/volume] in Serum or Plasma [facility] Albumin [Mass/volume ] in Serum or Plasma [facility] Alkaline phosphatase [Enzymatic activity/volume] in Serum or Plasma [facility] Anion gap measurement [facility] Ankle brachial press ure index [facility] Aspartate aminotrans ferase [Enzymatic activity/volume] in Serum or Plasma [facility] End: 02-13-2024 Bacteria identified in Urine by Culture URINE CULTURE Microbiology Routine Acute cystitis with hematuria Every other week for 24 Occurrences starting 02/13/2023 until 02/13/2024 [facility] Work Phone: Comment on above: Every other week for 24 Occurrences starting 02/13/2023 until 02/13/2024 Bilirubin, total measurement [facility] BUN/Creatinine ratio [facility] Calcium [Mass/volume ] in Serum or Plasma [facility] Carbon dioxide, tota l [Moles/volume] in Serum or Plasma [facility] CBC W Auto Different ial panel - Blood [facility] Chloride [Moles/volu me] in Serum or Plasma [facility] Creatinine [Moles/vo lume] in Serum or Plasma [facility] End: 09-07-2023 Ct soft tissue neck w/o contrast material CT NECK SOFT TISSUE WO IVCON Radiology STAT Mass of left side of neck 1 Occurrences starting 08/08/2022 until 09/07/2023 [facility] Work Phone: Comment on above: 1 Occurrences starti ng 08/08/2022 until 09/07/2023 Glucose [Mass/volume ] in Serum or Plasma [facility] Hematocrit [Volume Fraction] of Blood [facility] Hemoglobin [Mass/vol ume] in Blood [facility] INR in Blood by Coagulation assay [facility] Leukocytes [#/volume ] in Blood [facility] Mean corpuscular hemoglobin concentration determination [facility] Mean corpuscular hemoglobin determination [facility] Measurement of renal function [facility] Neutrophil count [facility] Neutrophil percent differential count [facility] Patient Education [facility] Work Phone: Patient referral [facility] Work Phone: Platelets [#/volume] in Blood [facility] Potassium [Moles/vol ume] in Serum or Plasma [facility] Prothrombin time [facility] End: 08-08-2023 PVR ANK PRESS [facility] PVR ANK PRESS [facility] V[facility] Lab Routine Decreased pulses in feet 1 Occurrences starting 08/08/2022 until 08/08/2023 [facility] Work Phone: Comment on above: 1 Occurrences starti ng 08/08/2022 until 08/08/2023 End: 09-06-2023 PVR ANK PRESS [facility] PVR ANK PRESS [facility] Lab Routine Peripheral arterial disease (HCC) 1 Occurrences starting 09/05/2022 until 09/06/2023 [facility] Work Phone: Comment on above: 1 Occurrences starti ng 09/05/2022 until 09/06/2023 Red blood cell count [facility] Red cell distributio n width determination [facility] Removal impacted cer umen irrigation/lvg unilat AMBULATORY EAR LAVAGE/IRRIGATION Procedures Routine Impacted cerumen of left ear Ordered: 09/02/2024 [facility] Work Phone: Comment on above: Ordered: 09/02/2024 End: 09-06-2023 SCREENING AORTA DUPLEX SCREENING [facility]ORT[facility]LEX Vascular Lab Routine Aortoiliac stenosis (HCC) 1 Occurrences starting 09/05/2022 until 09/06/2023 [facility] Work Phone: Comment on above: 1 Occurrences starti ng 09/05/2022 until 09/06/2023 Sodium [Moles/volume ] in Serum or Plasma [facility] Total protein measurement [facility] Urea nitrogen [Mass/volume] in Serum or Plasma [facility] End: 02-13-2024 Urinalysis complete panel - Urine URINALYSIS, WITH MICROSCOPIC Lab Routine Acute cystitis with hematuria Every other week for 24 Occurrences starting 02/13/2023 until 02/13/2024 [facility] Work Phone: Comment on above: Every other week for 24 Occurrences starting 02/13/2023 until 02/13/2024 US Carotid arteries [facility] [facility] US Carotid arteries [facility] End: 09-06-2023 US CAROTID ARTERIES [facility] US CAROTID ARTERIES [facility] Vascular Lab Routine Bilateral carotid artery stenosis 1 Occurrences starting 09/05/2022 until 09/06/2023 [facility] Work Phone: Comment on above: 1 Occurrences starti ng 09/05/2022 until 09/06/2023 End: 09-06-2023 US LEG ARTERIAL PERIPH [facility] US LEG ARTERIAL PERIPH [facility] Vascular Lab Routine Peripheral arterial disease (HCC) 1 Occurrences starting 09/05/2022 until 09/06/2023 [facility] Work Phone: Comment on above: 1 Occurrences starti ng 09/05/2022 until 09/06/2023 End: 09-13-2023 US POPLITEAL ARTERY [facility] US POPLITEAL ARTERY [facility] Vascular Lab Routine Peripheral arterial disease (HCC) 1 Occurrences starting 09/12/2022 until 09/13/2023 [facility] Work Phone: Comment on above: 1 Occurrences starti ng 09/12/2022 until 09/13/2023 [facility] Immunizations Immunization Date Immunization Notes Care Provider Vargas cartwright 04-09-2024 influenza, high dose seasonal, preservative-free Harlan Ford DO Work Phone: [facility] 04-24-2023 influenza (aIIV4) vaccine, age 65+ yr, quadrivalent, PF (FLUAD QUAD) Harlan Ford DO Work Phone: [facility] 04-24-2023 influenza virus vacc ine, unspecified formulation Harlan Ford DO Work Phone: [facility] 07-21-2022 zoster vaccine recombinant Harlan Ford DO Work Phone: [facility] 04-09-2022 influenza virus vacc ine, unspecified formulation Harlan Ford DO Work Phone: [facility] 01-03-2021 tetanus toxoid, redu edy diphtheria toxoid, and acellular pertussis vaccine, adsorbed Harlan Ford DO Work Phone: [facility] 09-16-2020 COVID-19 vaccine, ag e 12+ yr (PFIZER-BIONTECH - PURPLE TOP) Harlan Ford DO Work Phone: [facility] Work Phone: 08-26-2020 COVID-19 vaccine, ag e 12+ yr (PFIZER-BIONTECH - PURPLE TOP) Harlan Ford DO Work Phone: [facility] Work Phone: 11-21-2019 zoster vaccine recombinant Harlan Ford DO Work Phone: [facility] 06-04-2019 zoster vaccine recombinant Harlan Ford DO Work Phone: [facility] 05-20-2019 zoster vaccine recombinant Harlan Ford DO Work Phone: [facility] 05-19-2019 influenza, high dose seasonal, preservative-free Harlan Ford DO Work Phone: [facility] Work Phone: 05-20-2018 influenza, high dose seasonal, preservative-free Harlan Ford DO Work Phone: [facility] Work Phone: 05-21-2017 influenza, high dose seasonal, preservative-free Harlan Ford DO Work Phone: [facility] Work Phone: 07-12-2016 pneumococcal polysaccharide vaccine, 23 valent Harlan Ford DO Work Phone: [facility] Work Phone: 05-07-2016 influenza, high dose seasonal, preservative-free Harlan Ford DO Work Phone: [facility] Work Phone: 07-11-2015 influenza, high dose seasonal, preservative-free Harlan Ford DO Work Phone: [facility] 12-21-2014 pneumococcal conjuga te vaccine, 13 valent Harlan Ford DO Work Phone: [facility] 05-28-2014 influenza, seasonal, injectable Harlan Ford DO Work Phone: [facility] 04-16-2013 influenza virus vacc ine, unspecified formulation Harlan Ford DO Work Phone: [facility] 05-05-2012 zoster vaccine, live Harlan Ford DO Work Phone: [facility] 04-17-2011 influenza virus vacc ine, unspecified formulation Harlan Ford DO Work Phone: [facility] 04-05-2010 influenza virus vacc ine, unspecified formulation Harlan Ford DO Work Phone: [facility] Work Phone: 03-30-2009 influenza virus vacc ine, unspecified formulation Harlan Ford DO Work Phone: [facility] 05-14-2008 influenza virus vacc ine, unspecified formulation Harlan Ford DO Work Phone: [facility] Work Phone: 04-29-2007 influenza virus vacc ine, unspecified formulation Harlan Ford DO Work Phone: [facility] 04-29-2007 tetanus and diphther ia toxoids, adsorbed, preservative free, for adult use (2 Lf of tetanus toxoid and 2 Lf of diphtheria toxoid) Harlan Ford DO Work Phone: [facility] 12-05-2006 pneumococcal polysaccharide vaccine, 23 valent Harlan Ford DO Work Phone: [facility] Work Phone: Payers Date Payer Category Payer Self-pay 2015 Private Health Insurance HUMANA HUMANA MEDICARE SUPPLEMENT [id number] 2015-Present [phone] [address] [address] [place] [address] Indemnity [id number] 2015 Private Health Insurance [id number] 2015 Private Health Insurance [id number] 2011 Medicare MEDICARE MEDICAR E A AND B [id number] 2011-Present [phone] [address] [address] [place] [address] Medicare [id number] 2011 Medicare [id number] 2011 Medicare [id number] Unknown MED [facility] [place] PERS [id number] Unknown [id number]. 462 Unknown [id number] 2.16.840.1.622568.3.579.2. 462 Unknown [id number] 2.16.840.1.392203.3.579.2. 462 Unknown [id number] 2.16.840.1.736984.3.579.2. 462 Unknown [id number] 2.16.840.1.705415.3.579.2. 462 Unknown [id number] 2..840.1.348748.3.579.2. 462 Unknown [id number] 2.16.840.1.473335.3.579.2. 462 Unknown [id number] 2.840.1.843104.3.579.2. 462 Unknown [id number] 2.840.1.606992.3.579.2. 462 Unknown [id number] 2.840.1.129145.3.579.2. 462 Unknown [id number] 2.840.1.225762.3.579.2. 462 Unknown [id number] 2.840.1.042795.3.579.2. 462 Unknown [id number] 2.840.1.552943.3.579.2. 462 Unknown [id number] 2.840.1.863005.3.579.2. 462 Unknown [id number] 2.840.1.737906.3.579.2. 462 Unknown [id number] 2.840.1.486024.3.579.2. 462 Unknown [id number] 2.840.1.140414.3.579.2. 462 Unknown [id number] .840.1.093646.3.579.2. 462 Unknown [id number] 2.840.1.336568.3.579.2. 462 Unknown [id number] 2.840.1.802111.3.579.2. 462 Unknown [id number] 2.840.1.293879.3.579.2. 462 Unknown [id number] 2.840.1.357927.3.579.2. 462 Unknown [id number] 2.840.1.683609.3.579.2. 462 Unknown [id number] 2.16.840.1.258246.3.579.2. 462 Social History Date Type Detail Facility Start: 08-18-2021 End: 01-13-2025 Never smoked tobacco (finding) [facility] Start: 1945 Sex Assigned At Male A [facility] Start: 10-31-2021 End: 09-15-2024 Alcohol intake Current drinker of alcohol (finding) [facility] Start: 05-17-2020 History SDOH Alcohol Frequency 3 [facility] Start: 04-11-2020 History SDOH Alcohol Comment beer [facility] Start: 1945 Sex Assigned At Not on file [facility] Start: 10-21-2021 End: 01-31-2022 Exposure to SARS-CoV-2 (event) Not sure [facility] Start: 08-08-2022 Tobacco use and exposure Smokeless tobacco non-user [facility] Work Phone: Start: 09-06-2022 End: 07-10-2023 Tobacco smoking status NHIS Unknown if ever smoked [facility] Start: 11-07-2022 End: 01-10-2023 History of Social function [facility] Work Phone: Start: 11-07-2022 End: 01-10-2023 Tobacco use panel [facility] Work Phone: Adult Depression Screening Assessment 0 [facility] Work Phone: How often to you hav e a drink containing alcohol? 2-4 times a month [facility] Start: 09-23-2024 End: 10-15-2024 Sex Male (finding) [facility] How many standard drinks containing alcohol do you have on a typical day? 3 or 4 [facility] How often do you hav e 6 or more drinks on 1 occasion? Never [facility] Medical Equipment Procedure Code Equipment Code Equipment Origin al Text Equipment Identifier Dates Endarterectomy, carotid ([id number] Cardiovascular patch, animal-derived ()[id number] FDA Start: 09-19-2022 Endarterectomy, carotid Collagen haemostatic agent, non-antimicrobial ()[id number] FDA Start: 09-19-2022 Endarterectomy, carotid Ligation clip, metallic ()[id number] FDA Start: 09-19-2022 Endarterectomy, carotid Ligation clip, metallic ()[id number] FDA Start: 09-19-2022 Endarterectomy, carotid Ligation clip, metallic ()[id number] FDA Start: 09-19-2022 [id number], [id number] Start: 07-13-2016 End: 06-10-2023 Comment on above: Test blood sugar(s) 1 times daily. Dx: Other DM Code E11.42 Insulin: No Test blood sugar(s) 1 times daily. Dx: Other DM Code E11.42 Insulin: No. Patient uses One Touch Verio Test blood sugars on ce daily. DX: E11.42 Insulin: No Goals Date Patient Goal Desired Activity /State Functional Status Date Assessment Result Facility 12-22-2024 Total score [AUDIT-C] 3 12/23/19 25 10:23 AM Mandy West LPN [facility] 01-25-2023 Functional status Ambulates [facility] Work Phone: 09-20-2022 Functional status Dangle Feet;Chair [facility] Work Phone: 12-21-2014 Are you deaf, or do you have serious difficulty hearing No 12/21/2014 10:02 AM Teressa Vargas, RN No [facility] 12-21-2014 Are you blind, or do you have serious difficulty seeing, even when wearing glasses No 12/21/2014 10:02 AM Teressa Vargas, MATEO No [facility] 12-21-2014 Do you have serious difficulty walking or climbing stairs No 12/21/2014 10:02 AM Teressa Vargas RN No [facility] 12-21-2014 Do you have difficul ty dressing or bathing No 12/21/2014 10:02 AM Teressa Vargas RN No [facility] 12-21-2014 Because of a physica l, mental, or emotional condition, do you have difficulty doing errands alone such as visiting a physician's office or shopping No 12/21/2014 10:02 AM Teressa Vargas RN No [facility] Mental Status Date Assessment Result Facility 01-25-2023 Cognitive function Voice/Name [facility] Work Phone: 01-24-2023 Cognitive function Level Of Cons ciousness Awake;Alert;Appropriate;Fol lows Commands [facility] Work Phone: 12-16-2022 Cognitive function Level Of Cons ciousness Awake;Alert;Appropriate [facility] Work Phone: 09-20-2022 Cognitive function Voice/Name [facility] Work Phone: 09-06-2022 Cognitive function Voice/Name [facility] Work Phone: 12-21-2014 Because of a physica l, mental, or emotional condition, do you have serious difficulty concentrating, remembering, or making decisions No 12/21/2014 10:02 AM EDT Teressa Mathias RN No [facility] Clinical Notes 11-19-2018 to 01-27-2025 Harlan Ford, DO - 12/23/2024 7:12 AM Harlan Webb, DO - 12/23/2024 7:06 AM EDT Note Date & Type Note Facility 01-27-2025 Note [facility] Medical Records Department [address] [place] [address] History Physical Exam 01/27/25 1216 MR#: [id number] Acct: [id number] Name: LARA TAPIA Rep #: [id number] : 1945 79 From: Juan Campbell MD PCP: Dr. Harlan Ford, DO [place] [facility] [place] [address]- History and Physical Date of Admission: 01/27/25 Date of Service: 12/23/24 MR#: [id number] Acct: [id number] Name: LARA TAPIA Rep #: [id number] : 1945 Provider: Dr. Juan Campbell MD Age/Sex: 78/M Location: [facility] Status: Signed Intake Vital Signs 01/14/2410:30 12/24/2507:28 Height 5 ft 9 in 5 ft 8.5 in Weight: 197 lb BMI 29.5 BP 168/67 H Blood Pressure Location Rt brachial Position Sitting Respiration 16 Intake Visit Reasons: REVIEW IMAGING DISCUSS BIOPSY IN OR Chief Complaint: enlarged lymph nodes [employer] Health Professional Required: No Is patient in pain?: No Allergies pregabalin (From Lyrica) Adverse Reaction (Verified 12/23/24 08:28) Other Medications ???Medication ???Instructions ???Recorded ???Confirmed ???Type cyanocobalamin (vitamin B-12) 1,000 mcg PO DAILY SUPPLEMENT 09/06/22 12/23/24 Hi story 1,000 mcg tablet (Vitamin B-12) gabapentin 300 mg capsule 900 mg PO TID PAIN 09/06/22 12/23/24 History glimepiride 4 mg tablet 4 mg PO BID DIABETES 09/06/22 12/23/24 History blwojbutfjb-crkxccwkl-cbp C-Mn 500 1 cap PO DAILY SUPPLEMENT 09/06/22 12/23/24 Histor y mg-400 mg capsule (Glucosamine Chondroitin Maximum Strength) metformin 750 mg tablet,extended 750 mg PO BID DIABETES 09/06/22 12/23/24 History release 24 hr magnesium oxide 500 mg capsule 500 mg PO DAILY SUPPLEMENT 09/10/22 12/23/24 Histo ry cholecalciferol (vitamin D3) 25 25 mcg PO DAILY SUPPLEMENT 09/13/22 12/23/24 Histo ry mcg (1,000 unit) capsule (Vitamin D3) meloxicam 7.5 mg tablet 7.5 mg PO PRN PRN FOOT PAIN 09/13/22 12/23/24 Hist ory simvastatin 20 mg tablet 20 mg PO DAILY 10/11/22 12/23/24 History clobetasol 0.05 % topical ointment 1 applic topical DAILY 07/10/23 12/23/24 History (Temovate) lamotrigine 25 mg tablet 25 mg PO DAILY PT UNSURE 01/15/24 12/23/24 History losartan 50 mg tablet 50 mg PO QDAY 01/15/24 12/23/24 History warfarin 2 mg tablet 2 mg PO DAILY #30 tabs 06/29/24 12/23/24 Rx warfarin 4 mg tablet 4 mg PO DAILY #120 tabs 10/07/24 12/23/24 Rx Have you fallen in the past year?: No PFSH Medical History PAF (paroxysmal atrial fibrillation) History of stroke Macrocytic anemia Thrombocytopenia Atrial fibrillation with rapid ventricular response Vision loss, right eye Wears partial dentures Wears glasses High cholesterol Easy bruising Excessive bleeding Non-smoker History of pain when walking Carotid stenosis, right Hypercholesteremia Hypertension Diabetes mellitus Surgical History History of right-sided carotid endarterectomy Hx of bilateral cataract extraction Hx of colonoscopy Hx of total knee replacement Hx of hernia repair Hx laparoscopic cholecystectomy Social History Smoking Status: Never smoker HPI HPI HPI: Patient is a 79-year-old male who presents for evaluation of new left-sided neck mass/adenopathy?. Patient presents today with his son. He states that this was purely an incidental finding when he underwent imaging of his carotid arteries for vascular surgery, Dr. López, 5 to 6 weeks ago. He denies any associated tenderness. He denies any associated night sweats. He denies any recent weight loss. He denies any personal history of previous cancer. Mr. Tapia does have a history of salivary gland swelling which he states occurred approximately 4 times in the last 10 years. There is no family history for lymphoma or hematologic malignancies as he can recall. Mr. Tapia reports that he remains pretty active but he confesses that he is getting tired easier than he used to. ROS General General: No weight change, appetite, fatigue, colon cancer, breast cancer or weakness HEENT HEENT: Yes swollen glands; No difficulty swallowing, eye injury, eye surgery or hoarseness Endo Endocrine: Yes diabetes mellitus; No thyroid disease, thyroid cancer, Hair loss, heat intolerance or cold intolerance Skin Skin: No rash or changing moles Breast Breast: No left breast lump, right breast lump, nipple discharge, breast pain, abnormal mammogram, abnormal US or breast enlargement Musc Musculoskeletal: No back problems, arthritis, rheumatoid arthritis, gout or joint pa (more content not included)... [facility] 12-23-2024 Note HNO ID: [id number] Author: HARLAN FORD, DO Service: ? Author Type: Physician Type: Progress Notes Filed: 12/23/2024 07:12 Note Text: Subjective Lara Tapia is a 78-year-old male with a history of diabetes, presenting for follow-up on recent thyroid ultrasound results. neck mass: - Recent thyroid ultrasound showed a 4 cm cystic structure above the left lobe of the thyroid, with an adjacent lymph node. - has been seen by speicalist at [facility]- unsure next steps will d/w speciliast this tomorrow - asymptomatic - Follow-up appointment with Dr. Campbell scheduled for tomorrow. Diabetes: - Recent blood glucose readings range from 81-137 mg/dL. - Noted higher readings around birthday and Father's Day. - Last A1c 6 months ago was 6.4%. - admits that he is walking but not exercising as much as he should be HPL: - taking Zocor - no SE with medication - admits he could do better with dietary improvements as well HTN: - well controlled - denies any recent CP or dyspnea or dizziness/Lh or edema Constitutional: (-) malaise Gastrointestinal: (-) abdominal pain Objective Blood pressure 120/68, pulse 60, temperature (!) 35.8 ?C (96.4 ?F), temperature source Right Tympanic, resp. rate 16, height 173 cm (5' 8.11), weight 88.9 kg (196 lb). GENERAL: NAD, alert and oriented. SKIN: Unremarkable, no rash or skin lesions. HEAD: Normocephalic. EYES: PERRLA, EOMI, conjunctiva clear. EARS: External ears normal, canals clear, TM's normal. NOSE/SINUSES: Nares normal. Septum midline. OROPHARYNX: Lips, mucosa, and tongue normal, good dentition. No oral lesions noted. NECK: Supple, no lymphadenopathy, normal thyroid, no carotid bruits. LUNGS: Clear to auscultation bilaterally, no wheezes/rhonchi/rales. HEART: Regular rate and rhythm, no murmurs. No ectopy. EXTREMITIES: Normal, no deformities, no skin discoloration, no edema. NEURO: Awake, alert and oriented x3, cranial nerves II-XII grossly intact, normal gait, no involuntary motions. Labs: - A1c: 6.4 Imaging: - Thyroid Ultrasound: No abnormalities of the thyroid gland - Neck Ultrasound: 4 cm cystic lesion above the left lobe of the thyroid with an adjacent lymph node Assessment AND Plan 1. Type 2 diabetes mellitus with diabetic polyneuropathy, without long-term current use of insulin (HCC) (E11.42) - Blood glucose levels have been well-controlled, with recent readings ranging from 81 to 137 mg/dL. - Last HbA1c was 6.4% six months ago. - Ordered [id number]-wj-[id number] HbA1c test to assess current glycemic control. - Continue current diabetes management regimen. 2. Acute cystitis with hematuria (N30.01) 3. Other polyneuropathy (G62.89) - Neuropathy affecting eyes and feet. - Continue current management. 4. Primary hypertension (I10) - Blood pressure readings stable. - Continue current antihypertensive therapy. 5. PAD (peripheral artery disease) (I73.9) 6. Mixed hyperlipidemia (E78.2) 7. History of stroke with residual effects (I69.30) 8. Overweight with body mass index (BMI) of 29 to 29.9 in adult (E66.3) Recording using [employer] software for draft documentation of the visit was discussed with the patient/authorized parts representative; all questions welcomed and answered. Patient/authorized parts representative agreed to proceed [facility] 12-23-2024 History of Present illness Narrative Subjective Lara Tapia is a 78-year-old male with a history of diabetes, presenting for follow-up on recent thyroid ultrasound results. neck mass: - Recent thyroid ultrasound showed a 4 cm cystic structure above the left lobe of the thyroid, with an adjacent lymph node. - has been seen by speicalist at [facility]- unsure next steps will d/w speciliast this tomorrow - asymptomatic - Follow-up appointment with Dr. Campbell scheduled for tomorrow. Diabetes: - Recent blood glucose readings range from 81-137 mg/dL. - Noted higher readings around birthday and Father's Day. - Last A1c 6 months ago was 6.4%. - admits that he is walking but not exercising as much as he should be HPL: - taking Zocor - no SE with medication - admits he could do better with dietary improvements as well HTN: - well controlled - denies any recent CP or dyspnea or dizziness/Lh or edema Constitutional: (-) malaise Gastrointestinal: (-) abdominal pain Objective Blood pressure 120/68, pulse 60, temperature (!) 35.8 C (96.4 F), temperature source Right Tympanic, resp. rate 16, height 173 cm (5' 8.11), weight 88.9 kg (196 lb). GENERAL: NAD, alert and oriented. SKIN: Unremarkable, no rash or skin lesions. HEAD: Normocephalic. EYES: PERRLA, EOMI, conjunctiva clear. EARS: External ears normal, canals clear, TM's normal. NOSE/SINUSES: Nares normal. Septum midline. OROPHARYNX: Lips, mucosa, and tongue normal, good dentition. No oral lesions noted. NECK: Supple, no lymphadenopathy, normal thyroid, no carotid bruits. LUNGS: Clear to auscultation bilaterally, no wheezes/rhonchi/rales. HEART: Regular rate and rhythm, no murmurs. No ectopy. EXTREMITIES: Normal, no deformities, no skin discoloration, no edema. NEURO: Awake, alert and oriented x3, cranial nerves II-XII grossly intact, normal gait, no involuntary motions. Labs: - A1c: 6.4 Imaging: - Thyroid Ultrasound: No abnormalities of the thyroid gland - Neck Ultrasound: 4 cm cystic lesion above the left lobe of the thyroid with an adjacent lymph node Assessment & Plan 1. Type 2 diabetes mellitus with diabetic polyneuropathy, without long-term current use of insulin (HCC) (E11.42) - Blood glucose levels have been well-controlled, with recent readings ranging from 81 to 137 mg/dL. - Last HbA1c was 6.4% six months ago. - Ordered kxluv-[id number]-rgwa HbA1c test to assess current glycemic control. - Continue current diabetes management regimen. 2. Acute cystitis with hematuria (N30.01) 3. Other polyneuropathy (G62.89) - Neuropathy affecting eyes and feet. - Continue current management. 4. Primary hypertension (I10) - Blood pressure readings stable. - Continue current antihypertensive therapy. 5. PAD (peripheral artery disease) (I73.9) 6. Mixed hyperlipidemia (E78.2) 7. History of stroke with residual effects (I69.30) 8. Overweight with body mass index (BMI) of 29 to 29.9 in adult (E66.3) Recording using [employer] software for draft documentation of the visit was discussed with the patient/authorized parts representative; all questions welcomed and answered. Patient/authorized parts representative agreed to proceed Images from the original note were not included. Lara Tapia is a 78 year old male here for a Medicare wellness visit. Medicare Health Risk Assessment General Health Good Exercise: Minutes/Day 50 min Exercise: Days/Week 5 days Alcohol: Daily Use 2-4 times a month Alcohol: Drinks/Day 3 or 4 Alcohol: 6 or more drinks Never Feel off balance Yes Concerns: Teeth/Dentures No Concerns: Sexual function Yes Troubled by feelings None of the above Frequency: Eating healthy diet Several days ADLs requiring help None of the above Safety precautions in home/vehicle Yes Smoke, vape, chews tobacco No Difficulty hearing No Difficulty seeing Yes Current Providers Specialists: I have reviewed specialist-related care of the patient in the medical record. Medical/Family history review Reviewed and updated problem list, medical/surgical/family/social history, medications, and allergies. Opioid use review Opioid Medications (last 90 days) No data to display Anxiety/Depression screening PHQ-2 Score: 0 (Lower risk for depression) Recommendation: no further intervention at this time Cognitive screening Mini Cog Score: 3 Cognitive screening reviewed and No further action needed (score 3-5). Functional Observation Was the patient's Timed Up & Go test unsteady or >= 12 seconds? No Advance Care Planning Surrogate decision maker and/or advance care plan documented Measurements BP 120/68 Pulse 60 Temp (!) 35.8 C (96.4 F) (Right Tympanic) Resp 16 Ht 173 cm (5' 8.11) Wt 88.9 kg (196 lb) BMI 29.71 kg/m Vision Screening: Follows with optometry/ophthalmology Assessment/Plan Medicare annual wellness visit, subsequent (00.) - Counseled on healthy diet and regular exercise - Fall avoidance information provided - Personalized prevention plan provided - Discussed need for and benefit of weight loss. BMI 29.71 kg/(m^2) Harlan Ford DO documented in this encounter [facility] 12-23-2024 Note HNO ID: [id number] Author: HARLAN FORD DO Service: ? Author Type: Physician Type: Progress Notes Filed: 12/23/2024 07:12 Note Text: Lara Tapia is a 78 year old male here for a Medicare wellness visit. Medicare Health Risk Assessment General Health Good Exercise: Minutes/Day 50 min Exercise: Days/Week 5 days Alcohol: Daily Use 2-4 times a month Alcohol: Drinks/Day 3 or 4 Alcohol: 6 or more drinks Never Feel off balance Yes Concerns: Teeth/Dentures No Concerns: Sexual function Yes Troubled by feelings None of the above Frequency: Eating healthy diet Several days ADLs requiring help None of the above Safety precautions in home/vehicle Yes Smoke, vape, chews tobacco No Difficulty hearing No Difficulty seeing Yes Current Providers Specialists: I have reviewed specialist-related care of the patient in the medical record. Medical/Family history review Reviewed and updated problem list, medical/surgical/family/social history, medications, and allergies. Opioid use review Opioid Medications (last 90 days) No data to display Anxiety/Depression screening PHQ-2 Score: 0 (Lower risk for depression) Recommendation: no further intervention at this time Cognitive screening Mini Cog Score: 3 Cognitive screening reviewed and No further action needed (score 3-5). Functional Observation Was the patient's Timed Up AND Go test unsteady or >= 12 seconds? No Advance Care Planning Surrogate decision maker and/or advance care plan documented Measurements BP 120/68 Pulse 60 Temp (!) 35.8 ?C (96.4 ?F) (Right Tympanic) Resp 16 Ht 173 cm (5' 8.11) Wt 88.9 kg (196 lb) BMI 29.71 kg/m? Vision Screening: Follows with optometry/ophthalmology Assessment/Plan Medicare annual wellness visit, subsequent (Z00.00) - Counseled on healthy diet and regular exercise - Fall avoidance information provided - Personalized prevention plan provided - Discussed need for and benefit of weight loss. BMI 29.71 kg/(m2) Harlan Ford DO [facility] 12-13-2024 Radiology Diagnostic study note [facility] Imaging Services [address] [place] [address] Head/Neck Soft Tissue MR#: [id number] Acct: [id number] Name: LARA TAPIA Rep #: [id number] : 1945 M 78 From: Amanda Spears MD PCP: Dr. Harlan Ford DO Status: RE G CLI Study:Head/Neck Soft Tissue Date of Exam: 12/11/24 Exam# [id number] Ordering Dr: Kelly Campbell MD PROCEDURE: HEAD/NECK SOFT TISSUE 12/11/2024 REASON FOR EXAM: CERVICAL ADENOPATHY TECHNIQUE: Ultrasound imaging of Head and Neck. COMPARISON: CT scan on 11/24/2024. FINDINGS: Multiple heterogeneous, necrotic enlarged lymph nodes are noted. Left lateral to the thyroid measuring 4.5 x 3.8 x 2.9 cm. Complex enlarged lymph node with increased vascularity. Left lateral to the thyroid measuring 1.6 x 1.5 x 1 cm enlarged lymph node with increased vascularity. In the left aspect of the neck/left parotid gland measuring 2.7 x 1.5 x 1.1 cm enlarged lymph node with increased vascularity. In the left aspect of the neck/left parotid gland measuring 1.4 x 0.8 x 1.1 cm enlarged lymph node with increased vascularity. In the left lateral aspect of the neck measuring 3.2 x 2 x 1.9 cm with increasedvascularity. US/Head/Neck Soft Tissue IMPRESSION: Cervical lymphadenopathy. No significant change is noted since the prior CT scan. [facility] CC: Dr. Harlan Ford DO; Dr. Juan Campbell MD ~ Voip Network Engineer: Signed [facility] 11-27-2024 Radiology Diagnostic study note [facility] Imaging Services [address] [place] [address] Soft Tissue Neck WITH Contrast MR#: [id number] Acct: [id number] Name: LARA TAPIA Rep #: [id number] : 1945 M 78 From: Chris Sparrow MD PCP: Dr. Harlan Ford, DO Status: RE G CLI Study:Soft Tissue Neck WITH Contrast Date of Exam: 11/24/24 Exam# [id number] Ordering Dr: Kelly Campbell MD PROCEDURE: SOFT TISSUE NECK WITH CONTRAST 11/24/2024 REASON FOR EXAM: Left COMPLEX CYSTIC LESION on thyroid sonogram TECHNIQUE: CT of the soft tissues of the neck from the orbits to the upper mediastinum withintravenous contrast. CONTRAST: Isovue-300 VOLUME: 100 mL One or more dose reduction techniques were used (e.g., Automated exposure control, adjustment of the mA and/or kV according to patient size, use of iterative reconstruction technique). RADIATION DOSE SUMMARY: CTDlvol: 19.48 mGy DLP: 710.65 MGycm COMPARISON: Prior thyroid sonogram dated October 09, 2024. FINDINGS: Airway: Midline and patent. Salivary glands: 1.2 cm x 1.4 cm irregular nodule arising from the posterior left parotid gland. Lymph nodes: There is evidence of a 2.4 cm x 3.5 cm by 4.8 cm from the level of the larynx down to the left supraclavicular region. A similar appearing mass measuring 2 cm by 1.3 cm by 4.1 cm is seen in the superior cervical region just deep to the left sternocleidomastoid. These may represent abnormal lymph nodes. There is also evidence of a 1.2 cm by 1.4 cm heterogeneous density arising from the posterior aspect of the left parotid gland. Heterogeneous complex mass in the left cervical region lateral to the larynx. Thyroid: Unremarkable. Vasculature: Carotid arteries and internal jugular veins are unremarkable. Orbits: Unremarkable at visualized levels. Paranasal sinuses and mastoids: Grossly clear at visualized levels. Lung apices: Clear. Upper mediastinum: Coronary artery calcification. Bones: Multilevel degenerative changes of the spine. Other: CT/Soft Tissue Neck WITH Contrast IMPRESSION: Left cervical adenopathy as described as well as an abnormality seen in the leftposterior aspect of the parotid gland. Reading Location: [place] [address] CC: Dr. Harlan Ford DO; Dr. Juan Campbell MD ~ Voip Network Engineer: Signed [facility] 10-12-2024 Discharge summary [facility] 10-12-2024 Discharge summary [facility] 10-12-2024 Discharge summary Note Date/Time October 12, 2024 12:15pm [facility] Physical Therapy [facility] [address] [place] [address] / REHABILITATION SERVICES DISCHARGE SUMMARY MR#: [id number] Acct: [id number] Name: LARA TAPIA Rep #: [id number] : 1945 78 From: Thao Ireland Referring Dr.: COMFORT Cee Status: REG RCR Insurance: MEDICARE PART A B [employer] Discharge Summary D/C summary: It has been my pleasure to treat LARA TAPIA referred by Dr. Rylan Cee, COMFORT, with the diagnosis of Neuropathy/R shoulder pain for a total of 24visit(s). Discharge Date: 10/12/24 Please see the following information for a summary of their discharge status. Subjective Subjective: Pt reports that his shoulder pain comes and goes. He reports that his elbow pain is 95% gone. Every once in awhile he will get a pop. He knows what machines to work on out in the gym. Pain R shoulder pain: Pain Intensity (Out of 10): 2 B feet N&T: Pain Intensity (Out of 10): 0 Overall Improvement % Improvement: 50 Objective Objective/Function: UE AROM: R flex 156 and L 153 R shoulder ABD 136 and L 145 R shoulder IR L1 and L T8 R shoulder ER 51 and L 65) UE MMT: R shoulder flex 7.9 and L 10.1 R shoulder ABD 8.1 and L 10.4 R shoulder ER 10.9 and L 14.8 R shoulder IR 11 and L 10.5) Goals Goal 1:: I HEP Goal Progress: Goal Met Goal 2:: Increase R shoulder AROM painfree (R shoulder flex 131 and L 153 R shoulder ABD 123 and L 145 R shoulder IR L1 and L T8 R shoulder ER 51 and L 65) Goal Progress: Progressing Goal 3:: Increase balance (FGA was 7 at eval) Goal Progress: Not Progressing Goal 4:: Increase balance (CATSIB was 82 at eval) Goal Progress: Not Progressing Goal 5:: Increase LE strength (at time of the eval: LE MMT: R hip flex 16 and L 15.1 R knee ext 24.2 and L 25 R knee flex 8.5 and L 10.7 R DF 4.1 and L 7.4 Hip abd B 4-/5 Sit to stand: able to get up without use of her arms) Goal Progress: Goal Met Goal 6:: Increase R shoulder strength (at the time of the eval: R shoulder flex6.3 and L 10.1 R shoulder ABD 8.1 and L 10.4 R shoulder ER 10.2 and L 14.8 R shoulder IR 10 and L 10.5) Goal Progress: Goal Met Plan Plan: DC PT to [facility] and indep gym routine. D/C Information Discharge Comments: DC PT to indep gym routine d/c sentence: If there are questions or concerns regarding this patient's physical therapy, please feel free to call me at [phone]. Thank you for the referral of thispatient. Sincerely, NATALIE England Balance/Gait/Functional tests Balance/Special Test Scores Functional Gait Assessment Score: 7 % Disability: 76.6700 CATSIB Score (Max score 120 seconds): 82 Lower Extremity Functional Score: 38 Quick DASH Score: 34.0900 Improvement % Improvement: 50 <Electronically signed by Thao Aguero MPT> 10/12/24 1111 CC: DPEliel Cee; Dr. Harlan Ford, DO ~ Signed [facility] Work Phone: 1(509) 494-121104-07-2025 Discharge summary Author Thao Aguero [facility] Note Date/Time October 12, 2024 11:1 2am [facility] Physical Therapy [facility] [address] [place] [address] [address] [place] [address] / REHABILITATION SERVICES DISCHARGE SUMMARY MR#: [id number] Acct: [id number] Name: LARA TAPIA Rep #: [id number] : 1945 78 From: Thao rIeland Referring Dr.: COMFORT Cee Status: REG RCR Insurance: MEDICARE PART A B [employer] Patient Information Patient Information: LARA TAPIA was seen in my office for initial evaluation on 07/13/24. The following Plan of Care was established for this patient: POC Established Initial Frequency: 2x /Week Initial Duration: 2 Months Anticipated Interventions Patient/Client Instruction: Educate patient on: Condition and Plan of Care For the Purpose of:: To increase ROM, To improve nutrient delivery to tissue, Toimprove muscle performance and motor function, To improve ability to perform ADL's, To increase tolerance to activity/condition/position, To improve performance and independence with ADL's, To decrease level of supervision to perform tasks, To improve ability of physical actions for home/community/work/leisure, To improve gait and locomotor functions, To improvehealth of tissue, To decrease soft tissue restriction, To increase flexibility/ROM, To improve balance and To improve safety with gait Therapeutic Exercise to Include: Strength training, Endurance training, Balance training, Body mechanics, Postural training, Flexibilty training, Gait and locomotor training, Neuromotor development, Passive ROM and Active ROM For the Purpose of:: To decrease pain, To increase ROM, To improve nutrient delivery to tissue, To improve muscle performance and motor function, To improveability to perform ADL's, To increase tolerance to activity/condition/position, To improve performance and independence with ADL's, To decrease level of supervision to perform tasks, To improve ability of physical actions for home/community/work/leisure, To improve gait and locomotor functions, To increase flexibility/ROM, To improve endurance, To improve balance and To improve safety with gait Functional Training to Include: Gait training For the Purpose of:: To improve gait and locomotor functions, To increase flexibility/ROM, To improve endurance, To improve balance and To improve safety with gait Last Seen Last Seen: This patient was last seen in our office . Pertinent comments regarding their Physical therapy will appear below: At this point I will be discontinuing this patient from physical therapy. I would be happy to see this patient again in the future if found appropriate by the physician. Thank you! NATALIE England Balance/Gait/Functional tests Balance/Special Test Scores Functional Gait Assessment Score: 7 % Disability: 76.6700 CATSIB Score (Max score 120 seconds): 82 Lower Extremity Functional Score: 38 Quick DASH Score: 34.0900 <Electronically signed by Thao Aguero MPT> 10/12/24 1112 CC: COMFORT Cee; Dr. Harlan Ford DO ~ Signed [facility] Work Phone: 1(859) 353-578604-05-2025 Radiology Diagnostic study note [facility] Imaging Services [address] [place], [place] [address] Thyroid MR#: [id number] Acct: [id number] Name: LARA TAPIA Rep #: [id number] : 1945 M 78 From: Laureen Burciaga MD PCP: Dr. Harlan Ford DO Status: RE G CLI Study:Thyroid Date of Exam: 10/09/24 Exam# [id number] Ordering Dr: Johan Morris PROCEDURE: THYROID 10/09/2024 REASON FOR EXAM: THYROID NODULE TECHNIQUE: Thyroid ultrasound COMPARISON: None. FINDINGS: Right thyroid lobe measures 5.2 x 2.3 x 2.5 cm. Left thyroid lobe measures 4.5 x 2.1 x 2.2 cm. Isthmus thickness is0.3 cm. Thyroid Size: Normal Background Echotexture: Homogeneous Thyroid Nodules: No suspicious nodules are identified Other: There is a mildly complex cystic lesion lateral to the left thyroid lobe measuring 4.4 x 3.3x 2.5 cm without hypervascularity. There is an adjacent lymph node with a thickened cortex just superior to the cystic lesion. US/Thyroid IMPRESSION: No suspicious thyroid nodule. Mildly complex cystic lesion just lateral to the left thyroid lobe with abnormal lymph node. CT neck is recommended for further evaluation if not recently performed. Reading Location: [facility] CC: SIDDHARTHA Ulloa; Dr. Harlan Ford DO ~ Voip Network Engineer: Signed [facility]04-01-2025 Evaluation note* Diagnosis Onset Date Resolution Status Admit Date Carotid artery disease acute Ap 2024 12:43pm PAD (peripheral artery disease) acut e October 06, 2024 12:43pm S/P carotid endarterectomy acute October 06, 2024 12:43pm Thyroid nodule noneactive October 06, 2024 12:43pm [facility] Work Phone: 1(597) 985-485604-01-2025 Evaluation note* Diagnosis Onset Date Resolution Status Admit Date Carotid artery disease acute Ap 2024 12:43pm PAD (peripheral artery disease) acut e October 06, 2024 12:43pm S/P carotid endarterectomy acute October 06, 2024 12:43pm Thyroid nodule noneactive October 06, 2024 12:43pm Mass of left side of neck acute December 23, 2024 8:20am [facility] Work Phone: 1(220) 834-300004-01-2025 Telephone encounter Note* Telephone Encounter - Rhianna Helton - 10/06/2024 11:49 AM EDT Requesting qty of 810 again. Patient has been identified by name and date of : Yes Patient phones for refill(s): Requested Prescriptions Pending Prescriptions Disp Refills gabapentin (NEURONTIN) 300 mg capsule 810 capsule 1 Sig: TAKE 3 CAPSULES BY MOUTH 3 TIMES A DAY Date of last office visit in primary care: 09/15/2024 Date of next office visit in primary care: 12/22/2024 Please advise. Thank you. Rhianna Helton. [facility]04-01-2025 Miscellaneous Notes* Telephone Encounter - Rhianna Helton - 10/06/2024 11:49 AM EDT Requesting qty of 810 again. Patient has been identified by name and date of : Yes Patient phones for refill(s): Requested Prescriptions Pending Prescriptions Disp Refills gabapentin (NEURONTIN) 300 mg capsule 810 capsule 1 Sig: TAKE 3 CAPSULES BY MOUTH 3 TIMES A DAY Date of last office visit in primary care: 09/15/2024 Date of next office visit in primary care: 12/22/2024 Please advise. Thank you. Rhianna Helton. * Telephone Encounter - Rhianna Helton - 10/06/2024 11:21 AM EDT Patient called for a refill, but phone lines went down. Attempted to reach the patient, left a voicemail. [facility] Telephone encounter Note * Telephone Encounter - Rhianna Helton - 10/06/2024 11:21 AM EDT Patient called for a refill, but phone lines went down. Attempted to reach the patient, left a voicemail. [facility]03-11-2025 NoteHNO ID: [id number] Author: HARLAN FORD, DO Service: ? Author Type: Physician Type: Progress Notes Filed: 09/15/2024 10:27 Note Text: Patient presents with: F/U 3 Month HPI: Lara Tapia is a 78 year old male who presents to the office today for review of health conditions. Concerns today: Overall he is doing okay Tremors, worsening, b/l hands/arms, right >left, sometimes a struggle to hold a spoon to eat or coffee etc. 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 Mr. Tapia has past history of diabetes. Since our [...] a day schedule with sugars in the fasting <100 range. Patient's last HgA1C was Hemoglobin A1C (%) Date Value 06/10/2024 6.4 05/20/2023 7.6 07/28/2021 7.0 05/22/2021 7.0 ) Last Ophthalmology exam was within the past 6 months Mr. Tapia reports history of hyperlipidemia. Current therapy includes simvastatin (Zocor) 20 mg. Denies side effects of muscle weakness or achiness. His most recent lipid panels are reviewed. Cholesterol, Total (mg/dL) Date Value 06/10/2024 174 05/22/2021 188 HDL Cholesterol (mg/dL) Date Value 06/10/2024 39 05/22/2021 40 LDL Cholesterol (mg/dL) Date Value 06/10/2024 98 05/22/2021 101 Triglyceride (mg/dL) Date Value 06/10/2024 187 05/22/2021 233 Mr. Tapia indicates a history of hypertension and states that he is feeling well and denies any symptoms referable to elevated blood pressure. Specifically denies headache, chest pain, palpitations, dyspnea, and peripheral edema. Patient denies any side effects of his medication(s) and is compliant with their regimen. Last 3 Encounter BP Readings: Date: BP: 09/15/2024 120/60 09/02/2024 144/70 07/29/2024 138/70 He watches his diet for sodium, low fat and low cholesterol some of the time. He does not check BP's generally. Lara likes to exercise by walking. PAST MEDICAL HISTORY Diagnosis Date Benign neoplasm [...] Never Smokeless tobacco: Never Vaping Use Vaping status: Never Used Substance Use Topics Alcohol use: Yes Comment: beer Drug use: No FAMILY HISTORY Problem Relation Age of Onset Breast Cancer Mother Heart Father chf Breast Cancer Sister Allergies: ALLERGIES Allergen Reactions Lyrica [Pregabalin] Cough Current Meds: propranolol ER (INDERAL LA) 60 mg 24 hr capsule Take 1 capsule by mouth once daily. For tremor losartan (COZAAR) 25 mg tablet Take 1 tablet by mouth once daily. metFORMIN ER (GLUCOPHAGE XR) 750 mg 24 hr tablet Take 1 tablet by mouth two times a day with meals. simvastatin (ZOCOR) 20 mg tablet Take 1 tablet by mouth once daily. gabapentin (NEURONTIN) 300 mg capsule TAKE 3 CAPSULES BY MOUTH 3 TIMES A DAY glimepiride (AMARYL) 4 mg tablet Take 1 tablet by mouth two times a day with meals. meloxicam (MOBIC) 7.5 mg tablet TAKE 1 TABLET BY MOUTH ONCE DAILY. NEEDED FOR FOOT PAIN, WITH FOOD. Blood-Glucose Meter monitoring kit Glucose Meter of Choice - Kit - Dx: Other DM Code E11.42 Insulin No lamoTRIgine (LAMICTAL) 25 mg tablet Take 1 tablet by mouth once daily. Clobetasol Propionate (TEMOVATE) (more content not included)...[facility]03-11-2025 History of Present illness Narrative* Harlan Ford, - 09/15/2024 10:23 AM EDT Patient presents with: F/U 3 Month HPI: Lara Tapia is a 78 year old male who presents to the office today for review of health conditions. Concerns today: Overall he is doing okay Tremors, worsening, b/l hands/arms, right >left, sometimes a struggle to hold a spoon to eat or coffee etc. 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 Mr. Tapia has past history of diabetes. Since our last visit he denies excessive thirst or increased frequency of urination, chest pain or dyspnea , new or unusual visual symptoms, and low sugar/hypoglycemic reactions. Depression- no. Follows a diabetic diet some of the time. He is compliant with m edication(s) and is tolerating med(s) without any side effects. He reports checking his glucose on a once a day schedule with sugars in the fasting <100 range. Patient's last HgA1C was Hemoglobin A1C (%) Date Value 06/10/2024 6.4 05/20/2023 7.6 07/28/2021 7.0 05/22/2021 7.0 ) Last Ophthalmology exam was within the past 6 months Mr. Tapia reports history of hyperlipidemia. Current therapy includes simvastatin (Zocor) 20 mg. Denies side effects of muscle weakness or achiness. His most recent lipid panels are reviewed. Cholesterol, Total (mg/dL) Date Value 06/10/2024 174 05/22/2021 188 HDL Cholesterol (mg/dL) Date Value 06/10/2024 39 05/22/2021 40 LDL Cholesterol (mg/dL) Date Value 06/10/2024 98 05/22/2021 101 Triglyceride (mg/dL) Date Value 06/10/2024 187 05/22/2021 233 Mr. Tapia indicates a history of hypertension and states that he is feeling well and denies any symptoms referable to elevated blood pressure. Specifically denies headache, chest pain, palpitations,dyspnea, and peripheral edema. Patient denies any side effects of his medication(s) and is compliant with their regimen. Last 3 Encounter BP Readings: Date: BP: 09/15/2024 120/60 09/02/2024 144/70 07/29/2024 138/70 He watches his diet for sodium, low fat and low cholesterol some of the time. He does not check BP's generally. Lara likes to exercise by walking. PAST MEDICAL HISTORY Diagnosis Date Benign neoplasm [...] Never Smokeless tobacco: Never Vaping Use Vaping status: Never Used Substance Use Topics Alcohol use: Yes Comment: beer Drug use: No FAMILY HISTORY Problem Relation Age of Onset Breast Cancer Mother Heart Father chf Breast Cancer Sister Allergies: ALLERGIES Allergen Reactions Lyrica [Pregabalin] Cough Current Meds: propranolol ER (INDERAL LA) 60 mg 24 hr capsule Take 1 capsule by mouth once daily. For tremor losartan (COZAAR) 25 mg tablet Take 1 tablet by mouth once daily. metFORMIN ER (GLUCOPHAGE XR) 750 mg 24 hr tablet Take 1 tablet by mouth two times a day with meals. simvastatin (ZOCOR) 20 mg tablet Take 1 tablet by mouth once daily. gabapentin (NEURONTIN) 300 mg capsule TAKE 3 CAPSULES BY MOUTH 3 TIMES A DAY glimepiride (AMARYL) 4 mg tablet Take 1 tablet by mouth two times a day with meals. meloxicam (MOBIC) 7.5 mg tablet TAKE 1 TABLET BY MOUTH ONCE DAILY. NEEDED FOR FOOT PAIN, WITH FOOD. Blood-Glucose Meter monitoring kit Glucose Meter of Choice - Kit - Dx: Other DM Code E11.42 InsulinNo lamoTRIgine (LAMICTAL) 25 mg tablet Take 1 tablet by mouth once daily. Clobetasol Propionate (TEMOVATE) 0.05 % external solution Apply 1 application to affected area oncedaily as needed (scalp psoriasis). mupirocin (BACTROBAN) 2 % ointment Apply to affected area every 12 hours as needed (skin wound or infection). (Patient not taking: Reported on 09/02/2024) warfarin (COUMADIN) 4 mg tablet Take 4 mg by mouth daily as directed. 4 mg Sat, Sun, Mon, 8 mg all other days blood sugar diagnostic (ONETOUCH ULTRA TEST) test strip Test blood sugars once daily. DX: E11.42 Insulin: No clopidogrel (PLAVIX) 75 mg tablet Take 75 [...] Test blood sugar(s) 1 times daily. Dx: OtherDM Code E11.42 Insulin: No. Patient uses One Touch [employer]io cyanocobalamin (VITAMIN B-12) 1,000 mcg tab Take 1,000 mcg by mouth once daily. COMPOUNDED PRESCRIPTION Diabetic shoes Dx: E11.65, DM2 Last office visit 05/20/18. ketoconazole (NIZORAL) 2 % shampoo Apply 1 application to affected area once daily as needed for Itching/Rash (scalp itching). 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 Dx: Other DM Code E11.42 Insulin: No blood sugar diagnostic (BLOOD GLUCOSE TEST) test strip Test blood sugar(s) 1 times daily. Dx: OtherDM Code E11.42 Insulin: No Clobetasol Propionate 0.05 % external solution Apply to scalp psoriasis patches and plaques selectively qday to bid (once or twice a day) as needed and AVOID face, eyes, eyelids, and deep fold areas. Fdrepgshzor-Jomgvvukr-Tdb C-Mn (GLUCOSAMINE CHONDROITIN MAXSTR) 500-400 mg ORAL Cap Take one(1) tablet daily. Aspirin 81 mg ORAL Tab Take one(1) tablet daily. Review of Systems: The remainder of the review of systems is negative. PE: 09/15/24 0933 BP: 120/60 Pulse: 84 Resp: 20 Temp: 36.1 C (97 F) TempSrc: Left Tympanic Weight: 88.9 kg (196 lb) Gen: A&O, NAD, non-toxic appearing, Pleasant, cooperative HEENT: NT/AC, PERRLA, EOMs intact b/l, vision impaired, nares clear and patent b/l, pharynx withouterythema, exudate or lesions. Uvula midline. MMM, EACs [...] soft, NT, ND, +BS, no hepatosplenomegaly MS: tremor right >left arm/hand, arthritis of joints- reduced ROM right shoulder and thumb jointand DIP and PIP b/l hands Neuro: CN II-XII intact b/l, strength 5/5 b/l UE and LE, DTRs 2/4 UE and LE, sensation intact. Skin: warm, dry, intact, actinic keratosis x 3 on mid chest wall Foot exam: Monofilament abnormal on right and [...] for and benefit of weight loss. BMI 30.41 kg/(m^2) 2. Tremor - ICD9: 781.0, ICD10: R25.1 Start on rx as below, titrate up dose as needed. Decrease dose of losartan to 25 mg a day F/u in 2-3 months - PROPRANOLOL ER 60 MG CAPSULE,24 HR,EXTENDED RELEASE 3. Primary hypertension - ICD9: 401.9, ICD10: I10 - Controlled - Recommend home blood pressure monitoring, to bring results to next visit - Encouraged sodium restriction, DASH or Mediterranean diet - Recommend regular aerobic exercise - LOSARTAN 25 MG TABLET 4. Other polyneuropathy - ICD9: 357.89, ICD10: G62.89 Stable, chronic, taking medications to help manage the pain 5. Mixed hyperlipidemia - ICD9: 272.2, ICD10: E78.2 - Controlled - Continue current medications - Counseled on healthy diet and regular exercise 6. Acute pain of right shoulder - ICD9: 719.41, ICD10: M25.511 Continue conservative care 7. PAD (peripheral artery disease) (HCC) - ICD9: 443.9, ICD10: I73.9 F/u with Vascular surgeon 8. Cerebrovascular accident (CVA) due to stenosis of right carotid artery (HCC) - ICD9: 433.11, ICD10: I63.231 F/u with Vascular surgeon, hx of 9. Vitamin D deficiency - ICD9: 268.9, ICD10: E55.9 Continue supplement Harlan Ford DO To ER if develops chest pain, shortness of breath, or severe worsening of symptoms. Discussed risks, benefits, alternatives, and potential side effects of medications. Patient expressed understanding and agreed with the plan. Harlan Ford DO [address] [place] [address] documented in this encounterOhio[facility]03-[facility]25 Telephone encounter Note * Telephone Encounter - [place] Joanna Rodriguez - 09/10/2024 4:20 PM EST Prescription Refill Information The patient has been identified by name and date of : Yes Caregiver verified no other encounters exist for this prescription request: Yes Caregiver confirmed with patient/requestor that no other refills are due, in the near future, with this provider at this time: Yes The last office visit in the department: 07/29/24 Does the patient have a future office visit with this provider/department: Yes Requested Prescriptions Pending Prescriptions Disp Refills metFORMIN ER (GLUCOPHAGE XR) 750 mg 24 hr tablet 180 tablet 3 Sig: Take 1 tablet by mouth two times a day with meals. Joanna Cheung [facility] September 10, 2024 4:21 PM [facility]03-06-[facility]25 Miscellaneous Notes* Telephone Encounter - Joanna Lopez - 09/10/2024 4:20 PM EST Prescription Refill Information The patient has been identified by name and date of : Yes Caregiver verified no other encounters exist for this prescription request: Yes Caregiver confirmed with patient/requestor that no other refills are due, in the near future, with this provider at this time: Yes The last office visit in the department: 07/29/24 Does the patient have a future office visit with this provider/department: Yes Requested Prescriptions Pending Prescriptions Disp Refills metFORMIN ER (GLUCOPHAGE XR) 750 mg 24 hr tablet 180 tablet 3 Sig: Take 1 tablet by mouth two times a day with meals. Joanna Cheung [facility] September 10, 2024 4:21 PM documented in this encounterOhiohealth [facility] Hospital02-28-2025 Telephone encounter Note * Telephone Encounter - Jennifer Daniels - 09/04/2024 2:35 PM EST Prescription Refill Information The patient has been identified by name and date of : Yes Caregiver verified no other encounters exist for this prescription request: Yes Caregiver confirmed with patient/requestor that no other refills are due, in the near future, with this provider at this time: Yes The last office visit in the department: 07/29/24 Does the patient have a future office visit with this provider/department: Yes Requested Prescriptions Pending Prescriptions Disp Refills losartan (COZAAR) 50 mg tablet 90 tablet 3 Sig: Take 1 tablet by mouth once daily. Jennifer Daniels September 04, 2024 2:35 PM [facility]02-28-[facility] Miscellaneous Notes* Telephone Encounter - Jennifer Daniels - 09/04/2024 2:35 PM EST Prescription Refill Information The patient has been identified by name and date of : Yes Caregiver verified no other encounters exist for this prescription request: Yes Caregiver confirmed with patient/requestor that no other refills are due, in the near future, with this provider at this time: Yes The last office visit in the department: 07/29/24 Does the patient have a future office visit with this provider/department: Yes Requested Prescriptions Pending Prescriptions Disp Refills losartan (COZAAR) 50 mg tablet 90 tablet 3 Sig: Take 1 tablet by mouth once daily. Jennifer Daniels September 04, 2024 2:35 PM documented in this encounterOhiohealth Doctors Hospital02-26-2025 NoteHNO ID: [id number] Author: SUZAN ESCALERA MA Service: ? Author Type: Job Site Superintendent Type: Progress Notes Filed: 09/02/2024 11:45 Note Text: Ambulatory Ear Lavage Pre-treatment: Warm water Treatment: Both ears Equipment and Irrigation solution and Volume used: Single use syringe with single use irrigation tip Water Return flow appearance: Brown Yellow Patient tolerated procedure: yes Tympanic membrane assessment: Tympanic membrane assessed by LIP pre and post procedure Suzan Escalera [facility]02-26-2025 History of Present illness Narrative* Suzan Escalera MA - 09/02/2024 11:41 AM EST Ambulatory Ear Lavage Pre-treatment: Warm water Treatment: Both ears Equipment and Irrigation solution and Volume used: Single use syringe with single use irrigation tip Water Return flow appearance: Brown Yellow Patient tolerated procedure: yes Tympanic membrane assessment: Tympanic membrane assessed by LIP pre and post procedure Suzan Escalera MA * Viral Erickson MD - 09/02/2024 11:23 AM EST Patient presents with: Ear Problem: left ear feels full x 3-5 days HPI: Feeling left ear is plugged for a few days. Past history of cerumen impaction and feels similar. Positive symptoms: ear fullness and decreased hearing, Negative symptoms: Cough, Sore throat, Nasal Congestion, Rhinorrhea, Fever, otorrhea, ear pain, OTC: none MEDICATIONS: Current Outpatient Medications Medication Sig simvastatin (ZOCOR) 20 mg tablet Take 1 tablet by mouth once daily. gabapentin (NEURONTIN) 300 mg capsule TAKE 3 CAPSULES BY MOUTH 3 TIMES A DAY glimepiride (AMARYL) 4 mg tablet Take 1 tablet by mouth two times a day with meals. meloxicam (MOBIC) 7.5 mg tablet TAKE 1 TABLET BY MOUTH ONCE DAILY. NEEDED FOR FOOT PAIN, WITH FOOD. Blood-Glucose Meter monitoring kit Glucose Meter of Choice - Kit - Dx: Other DM Code E11.42 InsulinNo metFORMIN ER (GLUCOPHAGE XR) 750 mg 24 hr tablet Take 1 tablet by mouth two times a day with meals. lamoTRIgine (LAMICTAL) 25 mg tablet Take 1 tablet by mouth once daily. Clobetasol Propionate (TEMOVATE) 0.05 % external solution Apply 1 application to affected area oncedaily as needed (scalp psoriasis). mupirocin (BACTROBAN) 2 % ointment Apply to affected area every 12 hours as needed (skin wound or infection). (Patient not taking: Reported on 09/02/2024) losartan (COZAAR) 50 mg tablet Take 1 tablet by mouth once daily. warfarin (COUMADIN) 4 mg tablet Take 4 mg by mouth daily as directed. 4 mg Sat, Sun, Mon, 8 mg all other days blood sugar diagnostic (ONETOUCH ULTRA TEST) test strip Test blood sugars once daily. DX: E11.42 Insulin: No clopidogrel (PLAVIX) 75 mg tablet Take 75 [...] Test blood sugar(s) 1 times daily. Dx: OtherDM Code E11.42 Insulin: No. Patient uses One Touch Verio cyanocobalamin (VITAMIN B-12) 1,000 mcg tab Take 1,000 mcg by mouth once daily. COMPOUNDED PRESCRIPTION Diabetic shoes Dx: E11.65, DM2 Last office visit 05/20/18. ketoconazole (NIZORAL) 2 % shampoo Apply 1 application to affected area once daily as needed for Itching/Rash (scalp itching). 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 Dx: Other DM Code E11.42 Insulin: No blood sugar diagnostic (BLOOD GLUCOSE TEST) test strip Test blood sugar(s) 1 times daily. Dx: OtherDM Code E11.42 Insulin: No Clobetasol Propionate 0.05 % external solution Apply to scalp psoriasis patches and plaques selectively qday to bid (once or twice a day) as needed and AVOID face, eyes, eyelids, and deep fold areas. Jcqasghqxsa-Uakdctwqr-Wvq C-Mn (GLUCOSAMINE CHONDROITIN MAXSTR) 500-400 mg ORAL Cap Take one(1) tablet daily. Aspirin 81 mg ORAL Tab Take one(1) tablet daily. No current facility-administered medications for this visit. ALLERGIES: ALLERGIES Allergen Reactions Lyrica [Pregabalin] Cough VITALS: BP 144/70 Pulse 88 Temp 36.1 C (96.9 F) Resp 16 Wt 89.1 kg (196 lb 6.9 oz) SpO2 97% BMI30.47 kg/m PHYSICAL EXAM: GEN: Pleasant, in no acute distress. HEENT: PERRL, EOMI, conjunctiva clear Ears: small cerumen right canal. Cerumen impaction left canal. TMs without erythema, bulge, or effusion after procedures. Sinuses: non-tender frontal sinus, non-tender maxillary sinuses Throat: moist mucous membranes, no erythema, no exudate Neck: supple, no thyromegaly, no lymphadenopathy HEART: regular rate, regular rhythm, no murmurs LUNGS: clear to auscultation, no wheezes or crackles, no increased WOB ASSESSMENT/PLAN: 1. Impacted cerumen of left ear - ICD9: 380.4, ICD10: H61.22 I performed partial removal of cerumen in the left canal with lighted cerumen curette. Successful removal of remaining bilateral cerumen by staff - AMBULATORY EAR LAVAGE/IRRIGATION Viral Erickson MD documented in this encounterOhiohealth [facility]02-26-2025 NoteHNO ID: [id number] Author: VIRAL ERICKSON MD Service: ? Author Type: Physician Type: Progress Notes Filed: 09/02/2024 11:45 Note Text: Patient presents with: Ear Problem: left ear feels full x 3-5 days HPI: Feeling left ear is plugged for a few days. Past history of cerumen impaction and feels similar. Positive symptoms: ear fullness and decreased hearing, Negative symptoms: Cough, Sore throat, Nasal Congestion, Rhinorrhea, Fever, otorrhea, ear pain, OTC: none MEDICATIONS: Current Outpatient Medications Medication Sig simvastatin (ZOCOR) 20 mg tablet Take 1 tablet by mouth once daily. gabapentin (NEURONTIN) 300 mg capsule TAKE 3 CAPSULES BY MOUTH 3 TIMES A DAY glimepiride (AMARYL) 4 mg tablet Take 1 tablet by mouth two times a day with meals. meloxicam (MOBIC) 7.5 mg tablet TAKE 1 TABLET BY MOUTH ONCE DAILY. NEEDED FOR FOOT PAIN, WITH FOOD. Blood-Glucose Meter monitoring kit Glucose Meter of Choice - Kit - Dx: Other DM Code E11.42 Insulin No metFORMIN ER (GLUCOPHAGE XR) 750 mg 24 hr tablet Take 1 tablet by mouth two times a day with meals. lamoTRIgine (LAMICTAL) 25 mg tablet Take 1 tablet by mouth once daily. Clobetasol Propionate (TEMOVATE) 0.05 % external solution Apply 1 application to affected area once daily as needed (scalp psoriasis). mupirocin (BACTROBAN) 2 % ointment Apply to affected area every 12 hours as needed (skin wound or infection). (Patient not taking: Reported on 09/02/2024) losartan (COZAAR) 50 mg tablet Take 1 tablet by mouth once daily. warfarin (COUMADIN) 4 mg tablet Take 4 mg by mouth daily as directed. 4 mg Sat, Sun, Mon, 8 mg all other days blood sugar diagnostic ([facility] MedicalTOUCH ULTRA TEST) test strip Test blood sugars once daily. DX: E11.42 Insulin: No clopidogrel (PLAVIX) 75 mg tablet Take 75 [...] Insulin: No. Patient uses One Touch Verio cyanocobalamin (VITAMIN B-12) 1,000 mcg tab Take 1,000 mcg by mouth once daily. COMPOUNDED PRESCRIPTION Diabetic shoes Dx: E11.65, DM2 Last office visit 05/20/18. ketoconazole (NIZORAL) 2 % shampoo Apply 1 application to affected area once daily as needed for Itching/Rash (scalp itching). metroNIDAZOLE 0.75 % cream APPLY TO AFFECTED [...] face, eyes, eyelids, and deep fold areas. Ezbpwcvciey-Wlqqgywpb-Exk C-Mn (GLUCOSAMINE CHONDROITIN MAXSTR) 500-400 mg ORAL Cap Take one(1) tablet daily. Aspirin 81 mg ORAL Tab Take one(1) tablet daily. No current facility-administered medications for this visit. ALLERGIES: ALLERGIES Allergen Reactions Lyrica [Pregabalin] Cough VITALS: BP 144/70 Pulse 88 Temp 36.1 ?C (96.9 ?F) Resp 16 Wt 89.1 kg (196 lb 6.9 oz) SpO2 97% BMI 30.47 kg/m? PHYSICAL EXAM: GEN: Pleasant, in no acute distress. HEENT: PERRL, EOMI, conjunctiva clear Ears: small cerumen right canal. Cerumen impaction left canal. TMs without erythema, bulge, or effusion after procedures. Sinuses: non-tender frontal sinus, non-tender maxillary sinuses Throat: moist mucous membranes, no erythema, no exudate Neck: supple, no thyromegaly, no lymphadenopathy HEART: regular rate, regular rhythm, no murmurs LUNGS: clear to auscultation, no wheezes or crackles, no increased WOB ASSESSMENT/PLAN: 1. Impacted cerumen of left ear - ICD9: 380.4, ICD10: H61.22 I performed partial removal of cerumen in the left canal with lighted cerumen curette. Successful removal of remaining bilateral cerumen by staff - AMBULATORY EAR LAVAGE/IRRIGATION Viral Erickson, [facility]01-22-2025 NoteHNO ID: [id number] Author: HARLAN OFRD, DO Service: ? Author Type: Physician Type: Progress Notes Filed: 07/29/2024 13:08 Note Text: Patient presents with: Follow Up HPI: Lara Tapia is a 78 year old male who presents to the office today for review of health conditions. Concerns today: Blood glucoses mostly in the 70s fasting recently. Tolerating medications. Denies any symptoms Peripheral neuropathy, severe, b/l feet. Recently with a fall, tripped over his feet [place]. Fell backwards- no head injuries but knows landed against his right shoulder and right elbow and right hand. Was seen in on 07/23 for this and had xray's of right hand, elbow and shoulder without acute injuries but is very sore in these areas and limited ROM of right shoulder and is getting thumb/1st finger locking with movement. Willing to start PHYSICAL THERAPY if thinks would be beneficial Mr. Tapia has past history of diabetes. Since our last visit he denies excessive thirst or increased frequency of urination, chest pain or dyspnea , new or unusual visual symptoms, and low sugar/hypoglycemic reactions. Depression- no. Follows a diabetic diet some of the time. He is compliant with medication(s) and is tolerating med(s) without any side effects. He reports checking his glucose on a twice a day schedule with sugars in the <120 range. Patient's last HgA1C was Hemoglobin A1C (%) Date Value 06/10/2024 6.4 05/20/2023 7.6 07/28/2021 7.0 05/22/2021 7.0 ) Last Ophthalmology exam was within the past 3 months Mr. Tapia reports history of hyperlipidemia. Current therapy includes simvastatin (Zocor) 20 mg. Denies side effects of muscle weakness or achiness. His most recent lipid panels are reviewed. Cholesterol, Total (mg/dL) Date Value 06/10/2024 174 05/22/2021 188 HDL Cholesterol (mg/dL) Date Value 06/10/2024 39 05/22/2021 40 LDL Cholesterol (mg/dL) Date Value 06/10/2024 98 05/22/2021 101 Triglyceride (mg/dL) Date Value 06/10/2024 187 05/22/2021 233 Mr. Tapia indicates a history of hypertension and states that he is feeling well and denies any symptoms referable to elevated blood pressure. Specifically denies headache, chest pain, palpitations, dyspnea, and peripheral edema. Patient denies any side effects of his medication(s) and is compliant with their regimen. Last 3 Encounter BP Readings: Date: BP: 07/29/2024 138/70 07/23/2024 171/72 06/15/2024 122/60 He watches his diet for sodium, low [...] Never Smokeless tobacco: Never Vaping Use Vaping status: Never Used Substance Use Topics Alcohol use: Yes Comment: beer Drug use: No FAMILY HISTORY Problem Relation Age of Onset Breast Cancer Mother Heart Father chf Breast Cancer Sister Allergies: ALLERGIES Allergen Reactions Lyrica [Pregabalin] Cough Current Meds: lidocaine (LIDODERM) 5 % Apply 1 Patch as directed every 24 hours for 10 days. Remove old patch prior to placing new patch. Location: Right Knee simvastatin (ZOCOR) 20 mg tablet Take 1 tablet by mouth once daily. gabapentin (NEURONTIN) 300 mg capsule TAKE 3 CAPSULES BY MOUTH 3 TIMES A DAY glimepiride (AMARYL) 4 mg tablet Take 1 tablet by mouth two times a day with meals. meloxicam (MOBIC) 7.5 mg tablet TAKE 1 TABLET BY MOUTH ONCE DAILY. NEEDED FOR FOOT PAIN, WITH FOOD. Blood-Glucose Meter monitoring (more content not included)...[facility]01-22-2025 History of Present illness Narrative* Harlan Ford, - 07/29/2024 1:00 PM EST Patient presents with: Follow Up HPI: Lara Tapia is a 78 year old male who presents to the office today for review of health conditions. Concerns today: Blood glucoses mostly in the 70s fasting recently. Tolerating medications. Denies any symptoms Peripheral neuropathy, severe, b/l feet. Recently with a fall, tripped over his feet [place]. Fell backwards- no headinjuries but knows landed against his right shoulder and right elbow and right hand. Was seen in [place] 07/23 for this and had xray's of right hand, elbow and shoulder without acute injuries but is very sore in these areas and limited ROM of right shoulder and is getting thumb/1st finger locking withmovement. Willing to start PHYSICAL THERAPY if thinks would be beneficial Mr. Tapia has past history of diabetes. Since our last visit he denies excessive thirst or increased frequency of urination, chest pain or dyspnea , new or unusual visual symptoms, and low sugar/hypoglycemic reactions. Depression- no. Follows a diabetic diet some of the time. He is compliant with m edication(s) and is tolerating med(s) without any side effects. He reports checking his glucose on a twice a day schedule with sugars in the <120 range. Patient's last HgA1C was Hemoglobin A1C (%) Date Value 06/10/2024 6.4 05/20/2023 7.6 07/28/2021 7.0 05/22/2021 7.0 ) Last Ophthalmology exam was within the past 3 months Mr. Tapia reports history of hyperlipidemia. Current therapy includes simvastatin (Zocor) 20 mg. Denies side effects of muscle weakness or achiness. His most recent lipid panels are reviewed. Cholesterol, Total (mg/dL) Date Value 06/10/2024 174 05/22/2021 188 HDL Cholesterol (mg/dL) Date Value 06/10/2024 39 05/22/2021 40 LDL Cholesterol (mg/dL) Date Value 06/10/2024 98 05/22/2021 101 Triglyceride (mg/dL) Date Value 06/10/2024 187 05/22/2021 233 Mr. Tapia indicates a history of hypertension and states that he is feeling well and denies any symptoms referable to elevated blood pressure. Specifically denies headache, chest pain, palpitations,dyspnea, and peripheral edema. Patient denies any side effects of his medication(s) and is compliant with their regimen. Last 3 Encounter BP Readings: Date: BP: 07/29/2024 138/70 07/23/2024 171/72 06/15/2024 122/60 He watches his diet for sodium, low [...] Never Smokeless tobacco: Never Vaping Use Vaping status: Never Used Substance Use Topics Alcohol use: Yes Comment: beer Drug use: No FAMILY HISTORY Problem Relation Age of Onset Breast Cancer Mother Heart Father chf Breast Cancer Sister Allergies: ALLERGIES Allergen Reactions Lyrica [Pregabalin] Cough Current Meds: lidocaine (LIDODERM) 5 % Apply 1 Patch as directed every 24 hours for 10 days. Remove old patch prior to placing new patch. Location: Right Knee simvastatin (ZOCOR) 20 mg tablet Take 1 tablet by mouth once daily. gabapentin (NEURONTIN) 300 mg capsule TAKE 3 CAPSULES BY MOUTH 3 TIMES A DAY glimepiride (AMARYL) 4 mg tablet Take 1 tablet by mouth two times a day with meals. meloxicam (MOBIC) 7.5 mg tablet TAKE 1 TABLET BY MOUTH ONCE DAILY. NEEDED FOR FOOT PAIN, WITH FOOD. Blood-Glucose Meter monitoring kit Glucose Meter of Choice - Kit - Dx: Other DM Code E11.42 InsulinNo metFORMIN ER (GLUCOPHAGE XR) 750 mg 24 hr tablet Take 1 tablet by mouth two times a day with meals. lamoTRIgine (LAMICTAL) 25 mg tablet Take 1 tablet by mouth once daily. Clobetasol Propionate (TEMOVATE) 0.05 % external solution Apply 1 application to affected area oncedaily as needed (scalp psoriasis). mupirocin (BACTROBAN) 2 % ointment Apply to affected area every 12 hours as needed (skin wound or infection). losartan (COZAAR) 50 mg tablet Take 1 tablet by mouth once daily. warfarin (COUMADIN) 4 mg tablet Take 4 mg by mouth daily as directed. 4 mg Sat, Sun, Mon, 8 mg all other days blood sugar diagnostic (ONETOUCH ULTRA TEST) test strip Test blood sugars once daily. DX: E11.42 Insulin: No clopidogrel (PLAVIX) 75 mg tablet Take 75 [...] Test blood sugar(s) 1 times daily. Dx: OtherDM Code E11.42 Insulin: No. Patient uses One Touch Verio cyanocobalamin (VITAMIN B-12) 1,000 mcg tab Take 1,000 mcg by mouth once daily. COMPOUNDED PRESCRIPTION Diabetic shoes Dx: E11.65, DM2 Last office visit 05/20/18. ketoconazole (NIZORAL) 2 % shampoo Apply 1 application to affected area once daily as needed for Itching/Rash (scalp itching). 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 Dx: Other DM Code E11.42 Insulin: No blood sugar diagnostic (BLOOD GLUCOSE TEST) test strip Test blood sugar(s) 1 times daily. Dx: OtherDM Code E11.42 Insulin: No Clobetasol Propionate 0.05 % external solution Apply to scalp psoriasis patches and plaques selectively qday to bid (once or twice a day) as needed and AVOID face, eyes, eyelids, and deep fold areas. Pneapezkebx-Yiagjvnwc-Fgn C-Mn (GLUCOSAMINE CHONDROITIN MAXSTR) 500-400 mg ORAL Cap Take one(1) tablet daily. Aspirin 81 mg ORAL Tab Take one(1) tablet daily. Review of Systems: The remainder of the review of systems is negative. PE: 07/29/24 1209 BP: 138/70 Pulse: 64 Resp: 20 Temp: 36.1 C (97 F) TempSrc: Temporal Weight: 90.5 kg (199 lb 8.3 oz) Gen: A&O, NAD, non-toxic appearing, Pleasant, cooperative, hard of hearing HEENT: NT/AC, PERRLA, EOMs intact b/l, nares clear and patent b/l, pharynx without erythema, exudate or lesions. MMM, Uvula midline. EACs without erythema or debris. TMs pearly gaona with intact landmarks b/l. Neck: supple, No cervical LAD, no thyromegaly, no carotid bruits CV: RRR, normal S1 and S2, no murmurs, no gallops, no rubs, Pulses 2+ and symmetric in UE and LE b/l Lungs: normal respiratory effort, CTA b/l, no wheezing or rhonchi or rales Abd: soft, NT, ND, +BS, no hepatosplenomegaly MS: reduced ROM right shoulder and pain with elbow ROM and cervical spine reduced rotation ROM withcervical muscle spasm present. Skin: warm, dry, intact, No rashes or lesions on exposed skin. Foot exam: Monofilament abnormal on right and left feet. No edema legs, normal pulses ASSESSMENT/PLAN: 1. Acute pain of right shoulder - ICD9: 719.41, ICD10: M25.511 (primary diagnosis) Need for icing and heating pad use and tylenol and topical lidocaine cream Referral to PHYSICAL THERAPY - CONSULT TO PHYSICAL THERAPY 2. Neck pain - ICD9: 723.1, ICD10: M54.2 Need for icing and heating pad use and tylenol and topical lidocaine cream Referral to PHYSICAL THERAPY - CONSULT TO PHYSICAL THERAPY 3. Fall, subsequent encounter - ICD9: V58.89, E888.9, ICD10: W19.XXXD Need for icing and heating pad use and tylenol and topical lidocaine cream Referral to PHYSICAL THERAPY - CONSULT TO PHYSICAL THERAPY 4. Right elbow pain - ICD9: 719.42, ICD10: M25.521 Need for icing and heating pad use and tylenol and topical lidocaine cream Referral to PHYSICAL THERAPY - CONSULT TO PHYSICAL THERAPY 5. Primary hypertension - ICD9: 401.9, ICD10: I10 - Controlled - Continue current medications - Recommend home blood pressure monitoring, to bring results to next visit - Encouraged sodium restriction, DASH or Mediterranean diet - Recommend regular aerobic exercise 6. Type 2 diabetes mellitus with diabetic polyneuropathy, without long-term current use of insulin (HCC) - ICD9: 250.60, 357.2, ICD10: E11.42 - Controlled - Continue current medications - Blood glucose monitoring on a three times daily schedule - Counseled on healthy diet and regular exercise 7. Other polyneuropathy - ICD9: 357.89, ICD10: G62.89 Stable, chronic Harlan Ford DO To ER if develops chest pain, shortness of breath, or severe worsening of symptoms. Discussed risks, benefits, alternatives, and potential side effects of medications. Patient expressed understanding and agreed with the plan. Harlan Ford DO [address] [place] [address] documented in this encounterOhio[facility]01-22-2025 Instructions* Patient Instructions* Harlan Ford DO - 07/29/2024 12:[address] López about Aorta vascular testing? Iliac and leg/PVR BRANDT etc arterial testing? Recheck of carotid artery testing? Need for use of moist heating pad for 20 minutes twice a day on anterior front of shoulder and backof shoulder/neck as well. Then do stretches after this. Start PHYSICAL THERAPY at [facility] for the arm/shoulder and neck pain documented in this encounterOhio[facility] Hospital01-16-[facility]25 History of Present illness Narrative* Yan Lomeli RT(R) - 07/23/2024 3:50 PM EST Radiology Service Progress Note PATIENT NAME: Lara Tapia DATE OF SERVICE: July 23, 2024 TIME: 3:35 PM PATIENT IDENTITY VERIFICATION COMPLETED USING TWO (2) IDENTIFIERS: Name and Date of confirmedby patient verbally. FALL SCREENING: Has the patient had 2 falls in the last year or 1 fall with injury or currently using an Ambulatory Assistive Device (Walker, Cane, Wheelchair, Crutches, etc.)? No PATIENT GENDER DATA: Assigned male at PATIENT RELEVANT IMPLANT DATA REVIEWED: Yes PATIENT PRESENTS WITH AN IMPLANTABLE OR ATTACHED NATIONAL EXPANSION RECRUITER: No RADIOLOGY DEPARTMENT: General X-ray: Exam(s) Completed: Upper Extremity X- Ray(s): Shoulder, AP / TRUE AP right , Elbow, right , and Hand, right PERIPHERAL IV DATA: Not applicable SIGNED BY: RT Percy(Lucille) July 23, 2024 3:35 PM documented in this encounterOhiohealth Doctors Hospital01-16-2025 NoteHNO ID: [id number] Author: YAN LOMELI RT(R) Service: ? Author Type: Respiratory Coordinator Type: Progress Notes Filed: 07/23/2024 15:48 Note Text: Radiology Service Progress Note PATIENT NAME: Lara Tapia DATE OF SERVICE: July 23, 2024 TIME: 3:35 PM PATIENT IDENTITY VERIFICATION COMPLETED USING TWO (2) IDENTIFIERS: Name and Date of confirmed by patient verbally. FALL SCREENING: Has the patient had 2 falls in the last year or 1 fall with injury or currently using an Ambulatory Assistive Device (Walker, Cane, Wheelchair, Crutches, etc.)? No PATIENT GENDER DATA: Assigned male at PATIENT RELEVANT IMPLANT DATA REVIEWED: Yes PATIENT PRESENTS WITH AN IMPLANTABLE OR ATTACHED NATIONAL EXPANSION RECRUITER: No RADIOLOGY DEPARTMENT: General X-ray: Exam(s) Completed: Upper Extremity X-Ray(s): Shoulder, AP / TRUE AP right , Elbow, right , and Hand, right PERIPHERAL IV DATA: Not applicable SIGNED BY: RT Percy(R) July 23, 2024 3:35 PMCA[facility] NoteHNO ID: [id number] Author: KALPANA POE PA-C Service: ? Author Type: Physician Electroplating Worker Type: Progress Notes Filed: 07/23/2024 16:32 Note Text: This note was created using [employer]. Subjective Lara Tapia is a 78 year old male. Patient is a 78-year-old male who complains of right shoulder, right elbow and right hand pain that he states has been aggravated after shoveling snow today. Patient denies fall or other direct blow injury today. Patient reports that he sustained a fall injury approximately 2 months ago injuring his right shoulder and elbow. Patient states that he saw a friend who is a chiropractor for evaluation but did not seek or receive any additional medical care. Patient reports that no imaging studies were performed since his injury. Patient reports that he is able to flex and extend his right elbow although it is painful to do so. Patient states that his right hand pain is primarily localized to the base of his right thumb. Patient has no history of fracture or surgery to his right shoulder, elbow and hand. Patient reports that he has not specifically been advised that he has significant arthritis to his right shoulder, elbow and hand. Patient is here today requesting imaging studies of his right shoulder, elbow and hand. Patient is right-hand dominant. Review of the [facility] medical records shows that the patient received a CT scan soft tissue neck on 09 August 2022 for evaluation of a soft tissue mass to his left neck. Radiologist at that time reported no suspicious or concerning soft tissue growth, however the radiologist did describe significant degenerative changes to the cervical spine with moderate to severe foraminal narrowing and canal stenosis at multiple levels. Patient reports that he does not believe he was ever informed of this. Patient at this time clearly denies neck pain or injury. Arm Pain Review of Systems Musculoskeletal: Right Shoulder Pain; Right Elbow Pain; Right Hand Pain All other systems reviewed and are negative. Objective BP 171/72 Pulse 73 Temp 36.3 ?C (97.4 ?F) Resp 18 Wt 90.6 kg (199 lb 11.8 oz) SpO2 97% BMI 30.99 kg/m? Physical Exam Vitals and nursing note reviewed. Constitutional: Appearance: Normal appearance. He is normal weight. HENT: Head: Normocephalic and atraumatic. Nose: Nose normal. Mouth/Throat: Mouth: Mucous membranes are moist. Pharynx: Oropharynx is clear. Eyes: Extraocular Movements: Extraocular movements intact. Conjunctiva/sclera: Conjunctivae normal. Pupils: Pupils are equal, round, and reactive to light. Cardiovascular: Rate and Rhythm: Normal rate. Pulses: Normal pulses. Pulmonary: Effort: Pulmonary effort is normal. Breath sounds: Normal breath sounds. Musculoskeletal: General: Tenderness present. No swelling, deformity or signs of injury. Normal range of motion. Cervical back: Normal range of motion and neck supple. Skin: General: Skin is warm and dry. Capillary Refill: Capillary refill takes less than 2 seconds. Findings: No bruising or erythema. Neurological: General: No focal deficit present. Mental Status: He is alert and oriented to person, place, and time. Cranial Nerves: No cranial nerve deficit. Sensory: No sensory deficit. Motor: No weakness. Coordination: Coordination normal. Psychiatric: Mood and Affect: Mood normal. Behavior: Behavior normal. Thought Content: Thought content normal. Judgment: Judgment normal. Assessment and Plan Physical exam findings as noted above. X-ray right shoulder is negative for acute findings as reported by the radiologist. X-ray right elbow is negative for acute findings as reported by the radiologist. X-ray right hand is negative for acute findings as reported by the radiologist. Radiologist does not describe any moderate or significant degree of osteoarthritis on any of the images. Patient is currently taking ibuprofen, however only at night. Patient was advised to increase his ibuprofen use to 400 mg every 6 hours. Patient was provided with a prescription for lidocaine 5% transdermal patches. Patient was strongly encouraged to schedule an appointment with his primary care physician for further evaluation and management as he will likely require repeat CT scan cervical spine or possibly MRI given his history of multilevel foraminal narrowing and canal stenosis. Patient verbalizes excellent understanding of all of the above instructions. CLINICAL IMPRESSION: Cervical Radiculopathy; Right Shoulder Pain; Right Elbow Pain; Right Hand Pain ASSESSMENT/PLAN: 1. Chronic right shoulder pain - ICD9: 719.41, 338.29, ICD10: M25.511, G89.29 (primary diagnosis) - XR SHOULDER [id number] AP/TRUE AP RIGHT - LIDOCAINE 5 % TOPICAL PATCH 2. Right elbow pain - ICD9: 719.42, ICD10: M25.521 - XR ELBOW SPECIAL VIEWS AP/LAT/OTHER RIGHT 3. Right hand pain - ICD9: 729.5, ICD10: M79.641 - XR HAND GENERAL 3V (more content not included)...[facility] 07-23-2024 History of Present illness Narrative* Kalpana Poe PA-C - 07/23/2024 3:25 PM EST This note was created using [employer]. Subjective Lara Tapia is a 78 year old male. Patient is a 78-year-old male who complains of right shoulder, right elbow and right hand pain thathe states has been aggravated after shoveling snow today. Patient denies fall or other direct blow injury today. Patient reports that he sustained a fall injury approximately 2 months ago injuring his right shoulder and elbow. Patient states that he saw a friend who is a chiropractor for evaluationbut did not seek or receive any additional medical care. Patient reports that no imaging studies were performed since his injury. Patient reports that he is able to flex and extend his right elbow although it is painful to do so. Patient states that his right hand pain is primarily localized to thebase of his right thumb. Patient has no history of fracture or surgery to his right shoulder, elbowand hand. Patient reports that he has not specifically been advised that he has significant arthritis to his right shoulder, elbow and hand. Patient is here today requesting imaging studies of his right shoulder, elbow and hand. Patient is right-hand dominant. Review of the [facility] medical records shows that the patient received a CT scan soft tissue neck on 09 August 2022 for evaluation of a softtissue mass to his left neck. Radiologist at that time reported no suspicious or concerning soft tissue growth, however the radiologist did describe significant degenerative changes to the cervical spine with moderate to severe foraminal narrowing and canal stenosis at multiple levels. Patient reports that he does not believe he was ever informed of this. Patient at this time clearly denies neck pain or injury. Arm Pain Review of Systems Musculoskeletal: Right Shoulder Pain; Right Elbow Pain; Right Hand Pain All other systems reviewed and are negative. Objective BP 171/72 Pulse 73 Temp 36.3 C (97.4 F) Resp 18 Wt 90.6 kg (199 lb 11.8 oz) SpO2 97% BMI 30.99 kg/m Physical Exam Vitals and nursing note reviewed. Constitutional: Appearance: Normal appearance. He is normal weight. HENT: Head: Normocephalic and atraumatic. Nose: Nose normal. Mouth/Throat: Mouth: Mucous membranes are moist. Pharynx: Oropharynx is clear. Eyes: Extraocular Movements: Extraocular movements intact. Conjunctiva/sclera: Conjunctivae normal. Pupils: Pupils are equal, round, and reactive to light. Cardiovascular: Rate and Rhythm: Normal rate. Pulses: Normal pulses. Pulmonary: Effort: Pulmonary effort is normal. Breath sounds: Normal breath sounds. Musculoskeletal: General: Tenderness present. No swelling, deformity or signs of injury. Normal range of motion. Cervical back: Normal range of motion and neck supple. Skin: General: Skin is warm and dry. Capillary Refill: Capillary refill takes less than 2 seconds. Findings: No bruising or erythema. Neurological: General: No focal deficit present. Mental Status: He is alert and oriented to person, place, and time. Cranial Nerves: No cranial nerve deficit. Sensory: No sensory deficit. Motor: No weakness. Coordination: Coordination normal. Psychiatric: Mood and Affect: Mood normal. Behavior: Behavior normal. Thought Content: Thought content normal. Judgment: Judgment normal. Assessment and Plan Physical exam findings as noted above. X-ray right shoulder is negative for acute findings as reported by the radiologist. X-ray right elbow is negative for acute findings as reported by the radiologist. X-ray right hand is negative for acute findings as reported by the radiologist. Radiologist does not describe any moderate or significant degree of osteoarthritis on any of the images. Patient iscurrently taking ibuprofen, however only at night. Patient was advised to increase his ibuprofen use to 400 mg every 6 hours. Patient was provided with a prescription for lidocaine 5% transdermal patches. Patient was strongly encouraged to schedule an appointment with his primary care physician forfurther evaluation and management as he will likely require repeat CT scan cervical spine or possibly MRI given his history of multilevel foraminal narrowing and canal stenosis. Patient verbalizes excellent understanding of all of the above instructions. CLINICAL IMPRESSION: Cervical Radiculopathy; Right Shoulder Pain; Right Elbow Pain; Right Hand Pain ASSESSMENT/PLAN: 1. Chronic right shoulder pain - ICD9: 719.41, 338.29, ICD10: M25.511, G89.29 (primary diagnosis) - XR SHOULDER [id number] AP/TRUE AP RIGHT - LIDOCAINE 5 % TOPICAL PATCH 2. Right elbow pain - ICD9: 719.42, ICD10: M25.521 - XR ELBOW SPECIAL VIEWS AP/LAT/OTHER RIGHT 3. Right hand pain - ICD9: 729.5, ICD10: M79.641 - XR HAND GENERAL 3V PA/LAT/OBL RIGHT 4. Cervical radiculopathy - ICD9: 723.4, ICD10: M54.12 5. DDD (degenerative disc disease), cervical - ICD9: 722.4, ICD10: M50.30 Kalpana Poe PA-C documented in this encounterOhio[facility]12-09-2024 NoteHNO ID: [id number] Author: HARLAN FORD, DO Service: ? Author Type: Physician Type: Progress Notes Filed: 06/15/2024 10:11 Note Text: Patient presents with: F/U 3 Month HPI: Lara Tapia is a 78 year old male who presents to the office today for review of health conditions. Concerns today: Overall he is feeling well Blood glucoses mostly in the 70s fasting recently. Tolerating medications. Denies any symptoms Peripheral neuropathy, severe, b/l feet. Mr. Tapia has past history of diabetes. Since our [...] HgA1C was Hemoglobin A1C (%) Date Value 06/10/2024 6.4 05/20/2023 7.6 07/28/2021 7.0 05/22/2021 7.0 ) Last Ophthalmology exam was within the past 3 months Mr. Tapia reports history of hyperlipidemia. Current therapy includes simvastatin (Zocor) 20 mg. Denies side effects of muscle weakness or achiness. His most recent lipid panels are reviewed. Cholesterol, Total (mg/dL) Date Value 06/10/2024 174 05/22/2021 188 HDL Cholesterol (mg/dL) Date Value 06/10/2024 39 05/22/2021 40 LDL Cholesterol (mg/dL) Date Value 06/10/2024 98 05/22/2021 101 Triglyceride (mg/dL) Date Value 06/10/2024 187 05/22/2021 233 Mr. Tapia indicates a history of hypertension and states that he is feeling well and denies any symptoms referable to elevated blood pressure. Specifically denies headache, chest pain, palpitations, dyspnea, and peripheral edema. Patient denies any side effects of his medication(s) and is compliant with their regimen. Last 3 Encounter BP Readings: Date: BP: 06/15/2024 122/60 03/11/2024 132/76 03/03/2024 100/60 He watches his diet for sodium, low [...] Never Smokeless tobacco: Never Vaping Use Vaping status: Never Used Substance Use Topics Alcohol use: Yes Comment: beer Drug use: No FAMILY HISTORY Problem Relation Age of Onset Breast Cancer Mother Heart Father chf Breast Cancer Sister Allergies: ALLERGIES Allergen Reactions Lyrica [Pregabalin] Other: See Comments Cough Current Meds: simvastatin (ZOCOR) 20 mg tablet Take 1 tablet by mouth once daily. gabapentin (NEURONTIN) 300 mg capsule TAKE 3 CAPSULES BY MOUTH 3 TIMES A DAY glimepiride (AMARYL) 4 mg tablet Take 1 tablet by mouth two times a day with meals. meloxicam (MOBIC) 7.5 mg tablet TAKE 1 TABLET BY MOUTH ONCE DAILY. NEEDED FOR FOOT PAIN, WITH FOOD. Blood-Glucose Meter monitoring kit Glucose Meter of Choice - Kit - Dx: Other DM Code E11.42 Insulin No metFORMIN ER (GLUCOPHAGE XR) 750 mg 24 hr tablet Take 1 tablet by mouth two times a day with meals. lamoTRIgine (LAMICTAL) 25 mg tablet Take 1 tablet by mouth once daily. Clobetasol Propionate (TEMOVATE) 0.05 % external solution Apply 1 application to affected area once daily as needed (scalp psoriasis). mupirocin (BACTROBAN) 2 % ointment Apply to affected area every 12 hours as needed (skin wound or infection). losartan (COZAAR) 50 mg tablet Take 1 tablet by mouth once daily. warfarin (more content not included)...[facility]12-09-2024 History of Present illness Narrative* Harlan Ford, DO - 06/15/2024 10:08 AM EST Patient presents with: F/U 3 Month HPI: Lara Tapia is a 78 year old male who presents to the office today for review of health conditions. Concerns today: Overall he is feeling well Blood glucoses mostly in the 70s fasting recently. Tolerating medications. Denies any symptoms Peripheral neuropathy, severe, b/l feet. Mr. Tapia has past history of diabetes. Since our last visit he denies excessive thirst or increased frequency of urination, chest pain or dyspnea , new or unusual visual symptoms, and low sugar/hypoglycemic reactions. Depression- no. Follows a diabetic diet most of the time. He is compliant with m edication(s) and is tolerating med(s) without any side effects. He reports checking his glucose on a once a day schedule with sugars in the <120 range. Patient's last HgA1C was Hemoglobin A1C (%) Date Value 06/10/2024 6.4 05/20/2023 7.6 07/28/2021 7.0 05/22/2021 7.0 ) Last Ophthalmology exam was within the past 3 months Mr. Tapia reports history of hyperlipidemia. Current therapy includes simvastatin (Zocor) 20 mg. Denies side effects of muscle weakness or achiness. His most recent lipid panels are reviewed. Cholesterol, Total (mg/dL) Date Value 06/10/2024 174 05/22/2021 188 HDL Cholesterol (mg/dL) Date Value 06/10/2024 39 05/22/2021 40 LDL Cholesterol (mg/dL) Date Value 06/10/2024 98 05/22/2021 101 Triglyceride (mg/dL) Date Value 06/10/2024 187 05/22/2021 233 Mr. Tapia indicates a history of hypertension and states that he is feeling well and denies any symptoms referable to elevated blood pressure. Specifically denies headache, chest pain, palpitations,dyspnea, and peripheral edema. Patient denies any side effects of his medication(s) and is compliant with their regimen. Last 3 Encounter BP Readings: Date: BP: 06/15/2024 122/60 03/11/2024 132/76 03/03/2024 100/60 He watches his diet for sodium, low [...] Never Smokeless tobacco: Never Vaping Use Vaping status: Never Used Substance Use Topics Alcohol use: Yes Comment: beer Drug use: No FAMILY HISTORY Problem Relation Age of Onset Breast Cancer Mother Heart Father chf Breast Cancer Sister Allergies: ALLERGIES Allergen Reactions Lyrica [Pregabalin] Other: See Comments Cough Current Meds: simvastatin (ZOCOR) 20 mg tablet Take 1 tablet by mouth once daily. gabapentin (NEURONTIN) 300 mg capsule TAKE 3 CAPSULES BY MOUTH 3 TIMES A DAY glimepiride (AMARYL) 4 mg tablet Take 1 tablet by mouth two times a day with meals. meloxicam (MOBIC) 7.5 mg tablet TAKE 1 TABLET BY MOUTH ONCE DAILY. NEEDED FOR FOOT PAIN, WITH FOOD. Blood-Glucose Meter monitoring kit Glucose Meter of Choice - Kit - Dx: Other DM Code E11.42 InsulinNo metFORMIN ER (GLUCOPHAGE XR) 750 mg 24 hr tablet Take 1 tablet by mouth two times a day with meals. lamoTRIgine (LAMICTAL) 25 mg tablet Take 1 tablet by mouth once daily. Clobetasol Propionate (TEMOVATE) 0.05 % external solution Apply 1 application to affected area oncedaily as needed (scalp psoriasis). mupirocin (BACTROBAN) 2 % ointment Apply to affected area every 12 hours as needed (skin wound or infection). losartan (COZAAR) 50 mg tablet Take 1 tablet by mouth once daily. warfarin (COUMADIN) 4 mg tablet Take 4 mg by mouth daily as directed. 4 mg Sat, Sun, Mon, 8 mg all other days blood sugar diagnostic (ONETOUCH ULTRA TEST) test strip Test blood sugars once daily. DX: E11.42 Insulin: No clopidogrel (PLAVIX) 75 mg tablet Take 75 [...] Test blood sugar(s) 1 times daily. Dx: OtherDM Code E11.42 Insulin: No. Patient uses One Touch Verio cyanocobalamin (VITAMIN B-12) 1,000 mcg tab Take 1,000 mcg by mouth once daily. COMPOUNDED PRESCRIPTION Diabetic shoes Dx: E11.65, DM2 Last office visit 05/20/18. ketoconazole (NIZORAL) 2 % shampoo Apply 1 application to affected area once daily as needed for Itching/Rash (scalp itching). 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 Dx: Other DM Code E11.42 Insulin: No blood sugar diagnostic (BLOOD GLUCOSE TEST) test strip Test blood sugar(s) 1 times daily. Dx: OtherDM Code E11.42 Insulin: No Clobetasol Propionate 0.05 % external solution Apply to scalp psoriasis patches and plaques selectively qday to bid (once or twice a day) as needed and AVOID face, eyes, eyelids, and deep fold areas. Agoyiyugsbg-Shyvzmqwc-Swo C-Mn (GLUCOSAMINE CHONDROITIN MAXSTR) 500-400 mg ORAL Cap Take one(1) tablet daily. Aspirin 81 mg ORAL Tab Take one(1) tablet daily. Review of Systems: The remainder of the review of systems is negative. PE: 06/15/24 0918 BP: 122/60 Pulse: 68 Resp: 20 Temp: 36.2 C (97.1 F) TempSrc: Left Tympanic Weight: 90.3 kg (199 lb 1.2 oz) Gen: A&O, NAD, non-toxic appearing, Pleasant, cooperative [...] and LE, sensation intact. Skin: warm, dry, intact Foot exam: Monofilament abnormal on right and left feet ASSESSMENT/PLAN: 1. Type 2 diabetes mellitus with diabetic polyneuropathy, without long-term current use of insulin (HCC) - ICD9: 250.60, 357.2, ICD10: E11.42 (primary diagnosis) - Controlled - Continue current medications - Blood glucose monitoring on a once daily schedule - Counseled on healthy diet and regular exercise - Discussed need for and benefit of weight loss. BMI 30.88 kg/(m^2) 2. Mixed hyperlipidemia - ICD9: 272.2, ICD10: E78.2 - Controlled - Continue current medications - Counseled on healthy diet and regular exercise - SIMVASTATIN 20 MG TABLET 3. Primary hypertension - ICD9: 401.9, ICD10: I10 - Controlled - Continue current medications - Recommend home blood pressure monitoring, to bring results to next visit - Encouraged sodium restriction, DASH or Mediterranean diet - Recommend regular aerobic exercise 4. Other polyneuropathy - ICD9: 357.89, ICD10: G62.89 Stable, chronic 5. PAD (peripheral artery disease) (HCC) - ICD9: 443.9, ICD10: I73.9 stable 6. Vitamin D deficiency - ICD9: 268.9, ICD10: E55.9 Continue supplement 7. Obesity, Class I, BMI 30-34.9 - ICD9: 278.00, ICD10: E66.811 - Lengthy discussion in office today regarding diet and exercise. Discussed use of small plate to eat meals from, drink 1 glass of water 10-15 minutes prior to eating meal, drink 8 glasses of water daily, eat fresh fruit and vegetable during meal first then lean protein such as grilled/baked chicken breast or fish, limit carbohydrate intake (less pasta, breads, rice and snack foods) as well as limiting sugars (desserts etc). Important to count / track your calories and exercise as well. Harlan Ford DO To ER if develops chest pain, shortness of breath, or severe worsening of symptoms. Discussed risks, benefits, alternatives, and potential side effects of medications. Patient expressed understanding and agreed with the plan. Harlan Ford DO [address] [place] [address] documented in this encounterOhiohealth [facility] Hospital12-09-2024 Instructions* Patient Instructions* Harlan Ford DO - 06/15/2024 9:44 AM EST Epsom salt soaks for hands- 1/2 cup of epsom salts Voltaren and the biofreeze can be mixed together and rubbed on a painful joint. Thumb spica splint on hand as needed for thumb pain documented in this encounterOhiohealth Doctors Hospital12-04-2024 Telephone encounter Note * Telephone Encounter - Ida Gan APRN.JIGNA - 06/10/2024 9:12 AM EST Orders placed. Thank you, Ida Gan APRN.SALES SUPPORT COORDINATOR [facility]12-04-20[facility] Miscellaneous Notes* Telephone Encounter - Ida Gan APRN.JIGNA - 06/10/2024 9:12 AM EST Orders placed. Thank you, Ida Gan APRN.SALES SUPPORT COORDINATOR * Telephone Encounter - Mandy Monroy LPN - 06/10/2024 9:06 AM EST Pt. here for lab work needs orders filed. documented in this encounterOhiohealth Doctors Hospital12-04-2024 Telephone encounter Note * Telephone Encounter - Mandy Monroy LPN - 06/10/2024 9:06 AM EST Pt. here for lab work needs orders filed. [facility]10-[facility] Telephone encounter Note* Telephone Encounter - Kathi Corrigan MA - 04/20/2024 11:18 AM EDT Prescription Refill Information The patient has been identified by name and date of : Yes Caregiver verified no other encounters exist for this prescription request: Yes Caregiver confirmed with patient/requestor that no other refills are due, in the near future, with this provider at this time: Yes The last office visit in the department: 11/2023 Does the patient have a future office visit with this provider/department: Yes 06/2024 Requested Prescriptions Pending Prescriptions Disp Refills gabapentin (NEURONTIN) 300 mg capsule 810 capsule 1 Sig: TAKE 3 CAPSULES BY MOUTH 3 TIMES A DAY glimepiride (AMARYL) 4 mg tablet 180 tablet 1 Sig: Take 1 tablet by mouth two times a day with meals. meloxicam (MOBIC) 7.5 mg tablet 90 tablet 1 Sig: TAKE 1 TABLET BY MOUTH ONCE DAILY. NEEDED FOR FOOT PAIN, WITH FOOD. Kathi Corrigan MA April 20, 2024 11:18 AM [facility]10-14-[facility] Miscellaneous Notes* Telephone Encounter - Kathi Corrigan MA - 04/20/2024 11:18 AM EDT Prescription Refill Information The patient has been identified by name and date of : Yes Caregiver verified no other encounters exist for this prescription request: Yes Caregiver confirmed with patient/requestor that no other refills are due, in the near future, with this provider at this time: Yes The last office visit in the department: 11/2023 Does the patient have a future office visit with this provider/department: Yes 06/2024 Requested Prescriptions Pending Prescriptions Disp Refills gabapentin (NEURONTIN) 300 mg capsule 810 capsule 1 Sig: TAKE 3 CAPSULES BY MOUTH 3 TIMES A DAY glimepiride (AMARYL) 4 mg tablet 180 tablet 1 Sig: Take 1 tablet by mouth two times a day with meals. meloxicam (MOBIC) 7.5 mg tablet 90 tablet 1 Sig: TAKE 1 TABLET BY MOUTH ONCE DAILY. NEEDED FOR FOOT PAIN, WITH FOOD. Kathi Corrigan MA April 20, 2024 11:18 AM * Telephone Encounter - [place] Joanna Rodriguez - 04/20/2024 11:11 AM EDT Prescription Refill Information The patient has been identified by name and date of : Yes Caregiver verified no other encounters exist for this prescription request: Yes Caregiver confirmed with patient/requestor that no other refills are due, in the near future, with this provider at this time: Yes The last office visit in the department: Does the patient have a future office visit with this provider/department: No Requested Prescriptions Pending Prescriptions Disp Refills gabapentin (NEURONTIN) 300 mg capsule 810 capsule 1 Sig: TAKE 3 CAPSULES BY MOUTH 3 TIMES A DAY glimepiride (AMARYL) 4 mg tablet 180 tablet 1 Sig: Take 1 tablet by mouth two times a day with meals. meloxicam (MOBIC) 7.5 mg tablet 90 tablet 1 Sig: TAKE 1 TABLET BY MOUTH ONCE DAILY. NEEDED FOR FOOT PAIN, WITH FOOD. Joanna Cheung [facility] April 20, 2024 11:12 AM documented in [facility] Telephone encounter Note * Telephone Encounter - [place] Joanna Rodriguez - 04/20/2024 11:11 AM EDT Prescription Refill Information The patient has been identified by name and date of : Yes Caregiver verified no other encounters exist for this prescription request: Yes Caregiver confirmed with patient/requestor that no other refills are due, in the near future, with this provider at this time: Yes The last office visit in the department: Does the patient have a future office visit with this provider/department: No Requested Prescriptions Pending Prescriptions Disp Refills gabapentin (NEURONTIN) 300 mg capsule 810 capsule 1 Sig: TAKE 3 CAPSULES BY MOUTH 3 TIMES A DAY glimepiride (AMARYL) 4 mg tablet 180 tablet 1 Sig: Take 1 tablet by mouth two times a day with meals. meloxicam (MOBIC) 7.5 mg tablet 90 tablet 1 Sig: TAKE 1 TABLET BY MOUTH ONCE DAILY. NEEDED FOR FOOT PAIN, WITH FOOD. Joanna Rodriguez April 20, 2024 11:12 AM [facility]09-06-[facility] Telephone encounter Note* Telephone Encounter - Josie Caballero MA - 03/13/2024 6:18 PM EDT Patient notified of results, verbalized understanding of instructions given. Josie Caballero MA [facility]09-06-2024 Miscellaneous Notes* Telephone Encounter - Josie Caballero MA - 03/13/2024 6:18 PM EDT Patient notified of results, verbalized understanding of instructions given. Josie Caballero MA * Telephone Encounter - Matheus Lagos PA - 03/13/2024 6:08 PM EDT Please contact patient and let him know his swab came back negative for herpes. It showed some mixed oral horace, but no obvious sign of infection. He needs to follow-up with dermatology. documented in this encounterOhio[facility]09-06-2024 Telephone encounter Note * Telephone Encounter - Matheus Lagos PA - 03/13/2024 6:08 PM EDT Please contact patient and let him know his swab came back negative for herpes. It showed some mixed oral horace, but no obvious sign of infection. He needs to follow-up with dermatology. [facility] Work Phone: [phone]) 604-383609-04-2024 NoteHNO ID: [id number] Author: TYRELL CORRIGAN APRN.SALES SUPPORT COORDINATOR Service: ? Author Type: Nurse Practitioner Type: Progress Notes Filed: 03/11/2024 13:53 Note Text: Subjective March 04 The history is provided by the patient. No hand shaker was used. ROS Objective Physical Exam Constitutional: Appearance: Normal appearance. HENT: Mouth/Throat: Pulmonary: Effort: Pulmonary effort is normal. Neurological: Mental Status: He is alert.[facility]09-04-2024 History of Present illness Narrative* Tyrell Corrigan APRN.JIGNA - 03/11/2024 1:44 PM EDT Images from the original note were not included. Subjective March 04 The history is provided by the patient. No hand shaker was used. ROS Objective Physical Exam Constitutional: Appearance: Normal appearance. HENT: Mouth/Throat: Pulmonary: Effort: Pulmonary effort is normal. Neurological: Mental Status: He is alert. * Tyrell Corrigan APRN.JIGNA - 03/11/2024 1:43 PM EDT Images from the original note were not included. Subjective Patient came in with complaints of open sore on his bottom lip since March 04. Patient has tried Abreva and Chapstick to no avail. Wound does seem to be getting larger. Patient does have a history of skin cancer on his nose. Patient says it is a little uncomfortable but nothing severe. Patient denies any other symptoms. Review of Systems Constitutional: Negative. Skin: Negative. Objective Physical Exam Constitutional: Appearance: Normal appearance. HENT: Mouth/Throat: Comments: Patient does have what appears to be single layer missing on bottom lip in the area marked above. Does appear to be one third of the entire lip. Cardiovascular: Rate and Rhythm: Normal rate and regular rhythm. Heart sounds: Normal heart sounds. Pulmonary: Effort: Pulmonary effort is normal. Breath sounds: Normal breath sounds. Neurological: Mental Status: He is alert. 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 01/2023: Recurrent UTI Comment: didn't respond to Keflex, did well with Cipro 04/23/2008: Scar condition and fibrosis of skin 04/23/2008: Seborrheic dermatitis, unspecified No date: Type II or unspecified type diabetes mellitus without mention of complication, not stated as uncontrolled 04/07/2009: Umbilical hernia without mention of obstruction or gangrene 04/23/2008: Unspecified pruritic disorder PAST SURGICAL HISTORY 07/18/1982: CHOLECYSTECTOMY Comment: Cholecystectomy y: COLONOSCOPY FLX DX W/COLLJ SPEC WHEN PFRMD Comment: Colonoscopy repeat in 10 years 01/30/08: COLSC FLX W/RMVL OF TUMOR POLYP LESION SNARE TQ No date: EYE SURGERY HX 05-06-09: LAPAROSCOPY SURG RPR INITIAL INGUINAL HERNIA Comment: LEFT INGUINAL No date: PAST SURGICAL HISTORY OF Comment: Skin lesion removed from nose 05-06-09: RPR UMBILICAL HERNIA AGE 6 YRS/> INCARCERATED ALLERGIES Lyrica [Pregabalin] MEDICATIONS Blood-Glucose Meter monitoring kit Glucose Meter of Choice - Kit - Dx: Other DM Code E11.42 InsulinNo metFORMIN ER (GLUCOPHAGE XR) 750 mg 24 hr tablet Take 1 tablet by mouth two times a day with meals. triamcinolone acetonide (KENALOG) 0.5 % cream Apply 1 application to affected area two times a day for 10 days. On legs, For rash/itching. Apply sparingly. Avoid face/skin fold. lamoTRIgine (LAMICTAL) 25 mg tablet Take 1 tablet by mouth once daily. Clobetasol Propionate (TEMOVATE) 0.05 % external solution Apply 1 application to affected area oncedaily as needed (scalp psoriasis). mupirocin (BACTROBAN) 2 % ointment Apply to affected area every 12 hours as needed (skin wound or infection). simvastatin (ZOCOR) 20 mg tablet Take 1 tablet by mouth once daily. meloxicam (MOBIC) 7.5 mg tablet TAKE 1 TABLET BY MOUTH ONCE DAILY. NEEDED FOR FOOT PAIN, WITH FOOD. glimepiride (AMARYL) 4 mg tablet Take 1 tablet by mouth two times a day with meals. losartan (COZAAR) 50 mg tablet Take 1 tablet by mouth once daily. gabapentin (NEURONTIN) 300 mg capsule TAKE 3 CAPSULES BY MOUTH 3 TIMES A DAY warfarin (COUMADIN) 4 mg tablet Take 4 mg by mouth daily as directed. 4 mg Sat, Sun, Mon, 8 mg all other days blood sugar diagnostic (ONETOUCH ULTRA TEST) test strip Test blood sugars once daily. DX: E11.42 Insulin: No clopidogrel (PLAVIX) 75 mg tablet Take 75 mg by mouth once daily. cholecalciferol, vitamin D3, (VITAMIN D3 ORAL) Take 1 tablet by mouth once daily. POTASSIUM-99 ORAL Take 1 tablet by mouth once daily. Magnesium 200 mg tab Take 500 mg by mouth once daily. blood sugar diagnostic (BLOOD GLUCOSE TEST) test strip Test blood sugar(s) 1 times daily. Dx: OtherDM Code E11.42 Insulin: No. Patient uses One Touch Verio cyanocobalamin (VITAMIN B-12) 1,000 mcg tab Take 1,000 mcg by mouth once daily. COMPOUNDED PRESCRIPTION Diabetic shoes Dx: E11.65, DM2 Last office visit 05/20/18. ketoconazole (NIZORAL) 2 % shampoo Apply 1 application to affected area once daily as needed for Itching/Rash (scalp itching). 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 Dx: Other DM Code E11.42 Insulin: No blood sugar diagnostic (BLOOD GLUCOSE TEST) test strip Test blood sugar(s) 1 times daily. Dx: OtherDM Code E11.42 Insulin: No Clobetasol Propionate 0.05 % external solution Apply to scalp psoriasis patches and plaques selectively qday to bid (once or twice a day) as needed and AVOID face, eyes, eyelids, and deep fold areas. Kdadypetfds-Aprqfehhr-Beu C-Mn (GLUCOSAMINE CHONDROITIN MAXSTR) 500-400 mg ORAL Cap Take one(1) tablet daily. Aspirin 81 mg ORAL Tab Take one(1) tablet daily. aspirin 81 mg chewable tablet Take 1 tablet by mouth once daily. FAMILY HISTORY Problem Relation Age of Onset Breast Cancer Mother Heart Father chf Breast Cancer Sister Social History Tobacco Use Smoking status: Never Smokeless tobacco: Never Vaping Use Vaping status: Never Used Substance Use Topics Alcohol use: Yes Comment: beer Drug use: No ASSESSMENT/PLAN: 1. Open wound of skin - ICD9: 879.8, ICD10: T14.8XXA - ABSCESS AND WOUND CULTURE WITH GRAM STAIN - HSV1,2/VZV NAAT LESION No treatment was given at this time. 2 different cultures were sent out to verify both are negativefor positive. If both are negative patient will follow- up with skin doctor to have it tested for other possibilities. Patient was okay with this care plan. Tyrell Corrigan APRN.JIGNA documented in this encounterOhio[facility]09-04-2024 NoteHNO ID: [id number] Author: TYRELL CORRIGAN APRN.CNP Service: ? Author Type: Nurse Practitioner Type: Progress Notes Filed: 03/11/2024 13:53 Note Text: Subjective Patient came in with complaints of open sore on his bottom lip since March 04. Patient has tried Abreva and Chapstick to no avail. Wound does seem to be getting larger. Patient does have a history of skin cancer on his nose. Patient says it is a little uncomfortable but nothing severe. Patient denies any other symptoms. Review of Systems Constitutional: Negative. Skin: Negative. Objective Physical Exam Constitutional: Appearance: Normal appearance. HENT: Mouth/Throat: Comments: Patient does have what appears to be single layer missing on bottom lip in the area marked above. Does appear to be one third of the entire lip. Cardiovascular: Rate and Rhythm: Normal rate and regular rhythm. Heart sounds: Normal heart sounds. Pulmonary: Effort: Pulmonary effort is normal. Breath sounds: Normal breath sounds. Neurological: Mental Status: He is alert. 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 01/2023: Recurrent UTI Comment: didn't respond to Keflex, did well with Cipro 04/23/2008: Scar condition and fibrosis of skin 04/23/2008: Seborrheic dermatitis, unspecified No date: Type II or unspecified type diabetes mellitus without mention of complication, not stated as uncontrolled 04/07/2009: Umbilical hernia without mention of obstruction or gangrene 04/23/2008: Unspecified pruritic disorder PAST SURGICAL HISTORY 07/18/1982: CHOLECYSTECTOMY Comment: Cholecystectomy y: COLONOSCOPY FLX DX W/COLLJ SPEC WHEN PFRMD Comment: Colonoscopy repeat in 10 years 01/30/08: COLSC FLX W/RMVL OF TUMOR POLYP LESION SNARE TQ No date: EYE SURGERY HX 05-06-09: LAPAROSCOPY SURG RPR INITIAL INGUINAL HERNIA Comment: LEFT INGUINAL No date: PAST SURGICAL HISTORY OF Comment: Skin lesion removed from nose 05-06-09: RPR UMBILICAL HERNIA AGE 6 YRS/> INCARCERATED ALLERGIES Lyrica [Pregabalin] MEDICATIONS Blood-Glucose Meter monitoring kit Glucose Meter of Choice - Kit - Dx: Other DM Code E11.42 Insulin No metFORMIN ER (GLUCOPHAGE XR) 750 mg 24 hr tablet Take 1 tablet by mouth two times a day with meals. triamcinolone acetonide (KENALOG) 0.5 % cream Apply 1 application to affected area two times a day for 10 days. On legs, For rash/itching. Apply sparingly. Avoid face/skin fold. lamoTRIgine (LAMICTAL) 25 mg tablet Take 1 tablet by mouth once daily. Clobetasol Propionate (TEMOVATE) 0.05 % external solution Apply 1 application to affected area once daily as needed (scalp psoriasis). mupirocin (BACTROBAN) 2 % ointment Apply to affected area every 12 hours as needed (skin wound or infection). simvastatin (ZOCOR) 20 mg tablet Take 1 tablet by mouth once daily. meloxicam (MOBIC) 7.5 mg tablet TAKE 1 TABLET BY MOUTH ONCE DAILY. NEEDED FOR FOOT PAIN, WITH FOOD. glimepiride (AMARYL) 4 mg tablet Take 1 tablet by mouth two times a day with meals. losartan (COZAAR) 50 mg tablet Take 1 tablet by mouth once daily. gabapentin (NEURONTIN) 300 mg capsule TAKE 3 CAPSULES BY MOUTH 3 TIMES A DAY warfarin (COUMADIN) 4 mg tablet Take 4 mg by mouth daily as directed. 4 mg Sat, Sun, Mon, 8 mg all other days blood sugar diagnostic (ONETOUCH ULTRA TEST) test strip Test blood sugars once daily. DX: E11.42 Insulin: No clopidogrel (PLAVIX) 75 mg tablet Take 75 mg by mouth once daily. cholecalciferol, vitamin D3, (VITAMIN D3 ORAL) Take 1 tablet by mouth once daily. POTASSIUM-99 ORAL Take 1 tablet by mouth once daily. Magnesium 200 mg tab Take 500 mg by mouth once daily. blood sugar diagnostic (BLOOD GLUCOSE TEST) test strip Test blood sugar(s) 1 times daily. Dx: Other DM Code E11.42 Insulin: No. Patient uses One Touch Verio cyanocobalamin (VITAMIN B-12) 1,000 mcg tab Take 1,000 mcg by mouth once daily. COMPOUNDED PRESCRIPTION Diabetic shoes Dx: E11.65, DM2 Last office visit 05/20/18. ketoconazole (NIZORAL) 2 % shampoo Apply 1 application to affected area once daily as needed for Itching/Rash (scalp itching). 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 Dx: Other DM Code E11.42 Insulin: No blood sugar diagnostic (BLOOD GLUCOSE TEST) test strip Test blood sugar(s) 1 (more content not included)...[facility]08-28-2024 Telephone encounter Note* Telephone Encounter - Wilda Cheek MA - 03/04/2024 5:23 PM EDT Pt informed, verbalized understanding Wilda Cheek MA [facility]08-28-2024 Miscellaneous Notes* Telephone Encounter - Wilda Cheek MA - 03/04/2024 5:23 PM EDT Pt informed, verbalized understanding Wilda Cheek MA * Telephone Encounter - Jose Osborne APRN.CNP - 03/04/2024 5:11 PM EDT Please let him know that we received his lab results. They are all in normal target range, no concerns. Jose Osborne APRN.CNP documented in this encounterOhio[facility]08-28-2024 Telephone encounter Note * Telephone Encounter - Jose Osborne APRN.CNP - 03/04/2024 5:11 PM EDT Please let him know that we received his lab results. They are all in normal target range, no concerns. Jose Osborne APRN.CNP [facility]08-28-20[facility] Telephone encounter Note* Telephone Encounter - Mandy Monroy LPN - 03/04/2024 11:48 AM EDT Patient has been identified by name and date of : Patient phones for refill(s): Requested Prescriptions Pending Prescriptions Disp Refills Blood-Glucose Meter monitoring kit 1 Each 0 Sig: Glucose Meter of Choice - Kit - Dx: Other DM Code E11.42 Insulin No Date of last office visit in primary care: 03/03/2024 Date of next office visit in primary care: 06/15/2024 Please advise. Thank you. Mandy Monroy LPN. [facility]08-28-2024 Miscellaneous Notes* Telephone Encounter - Mandy Negro LPN - 03/04/2024 11:48 AM EDT Patient has been identified by name and date of : Patient phones for refill(s): Requested Prescriptions Pending Prescriptions Disp Refills Blood-Glucose Meter monitoring kit 1 Each 0 Sig: Glucose Meter of Choice - Kit - Dx: Other DM Code E11.42 Insulin No Date of last office visit in primary care: 03/03/2024 Date of next office visit in primary care: 06/15/2024 Please advise. Thank you. Mandy Monroy LPN. documented in this encounterOhiohealth [facility] Hospital08-27-2024 NoteHNO ID: [id number] Author: HARLAN FORD, DO Service: ? Author Type: Physician Type: Progress Notes Filed: 03/03/2024 10:59 Note Text: Patient presents with: F/U 3 Month HPI: Lara Tapia is a 78 year old male who presents to the office today for review of health conditions. Concerns today: Rash, on his legs, no pain or itching, no new exposures. Has been present for 1-2 days, noticed it after being in the shower. No known hx of vasculitis or tick bite Overall he is feeling well Blood glucoses mostly in the 70s fasting recently. Tolerating medications. Denies any symptoms Mr. Tapia has past history of diabetes. Since our [...] was within the past 12 months Mr. Tapia reports history of hyperlipidemia. Current therapy includes simvastatin (Zocor) 20 mg. Denies side effects of muscle weakness or achiness. His most recent lipid panels are reviewed. Cholesterol, Total (mg/dL) Date Value 02/06/2023 174 05/22/2021 188 HDL Cholesterol (mg/dL) Date Value 02/06/2023 43 05/22/2021 40 LDL Cholesterol (mg/dL) Date Value 02/06/2023 93 05/22/2021 101 Triglyceride (mg/dL) Date Value 02/06/2023 192 05/22/2021 233 Mr. Tapia indicates a history of hypertension and states that he is feeling well and denies any symptoms referable to elevated blood pressure. Specifically denies headache, chest pain, palpitations, dyspnea, and peripheral edema. Patient denies any side effects of his medication(s) and is compliant with their regimen. Last 3 Encounter BP Readings: Date: BP: 03/03/2024 100/60 11/26/2023 120/60 08/28/2023 100/60 He watches his diet for sodium, low fat and low cholesterol some of the time. He does not check BP's generally. Lara likes to exercise by walking on treadmill. 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 01/2023: Recurrent UTI Comment: didn't respond to Keflex, did well with Cipro 04/23/2008: Scar condition and fibrosis of skin 04/23/2008: Seborrheic dermatitis, unspecified No date: Type II or unspecified type diabetes mellitus without mention of complication, not stated as uncontrolled 04/07/2009: Umbilical hernia without mention of obstruction or gangrene 04/23/2008: Unspecified pruritic disorder PAST SURGICAL HISTORY 07/18/1982: CHOLECYSTECTOMY Comment: Cholecystectomy y: COLONOSCOPY FLX DX W/COLLJ SPEC WHEN PFRMD Comment: Colonoscopy repeat in 10 years 01/30/08: COLSC FLX W/RMVL OF TUMOR POLYP LESION SNARE TQ No date: EYE SURGERY HX 05-06-09: LAPAROSCOPY SURG RPR INITIAL INGUINAL HERNIA Comment: LEFT INGUINAL No date: PAST SURGICAL HISTORY OF Comment: Skin lesion removed from nose 05-06-09: RPR UMBILICAL HERNIA AGE 6 YRS/> INCARCERATED Social History Tobacco Use Smoking status: Never Smokeless tobacco: Never Vaping Use Vaping status: Never Used Substance Use Topics Alcohol use: Yes Comment: beer Drug use: No FAMILY HISTORY Problem Relation Age of Onset Breast Cancer Mother Heart Father chf Breast Cancer Sister Allergies: ALLERGIES Allergen Reactions Lyrica [Pregabalin] Other: See Comments Cough Current Meds: metFORMIN ER (GLUCOPHAGE XR) 750 mg 24 hr tablet Take 1 tablet by mouth two times a day with meals. predniSONE (DELTASONE) 10 mg tablet Take 3 tablets by mouth once daily for 7 days. lamoTRIgine (LAMICTAL) 25 mg tablet Take 1 tablet by mouth once daily. Clobetasol Propionate (TEMOVATE) 0.05 % external solution Apply 1 application to affected area once daily as needed (scalp psoriasis). mupirocin (BACTROBAN) 2 % ointment Apply to affected area every 12 hours as needed (skin wound or infection). simvastatin (ZOCOR) 20 mg tablet Take 1 tablet by mouth once daily. meloxicam (MOBIC) 7.5 mg tablet TAKE 1 TABLET BY MOUTH ONCE DAILY. NEEDED FOR FOOT PAIN, WITH FOOD. glimepiride (A (more content not included)...[facility] 03-03-2024 History of Present illness Narrative* Harlan Ford, - 03/03/2024 10:42 AM EDT Patient presents with: F/U 3 Month HPI: Lara Tapia is a 78 year old male who presents to the office today for review of health conditions. Concerns today: Rash, on his legs, no pain or itching, no new exposures. Has been present for 1- 2 days, noticed it after being in the shower. No known hx of vasculitis or tick bite Overall he is feeling well Blood glucoses mostly in the 70s fasting recently. Tolerating medications. Denies any symptoms Mr. Tapia has past history of diabetes. Since our last visit he denies excessive thirst or increased frequency of urination, chest pain or dyspnea , new or unusual visual symptoms, and low sugar/hypoglycemic reactions. Depression- no. Follows a diabetic diet some of the time. He is compliant with m edication(s) and is tolerating med(s) without any side effects. He reports checking his glucose on a once a day schedule with sugars in the <120 range. Patient's last HgA1C was Hemoglobin A1C (%) Date Value 05/20/2023 7.6 02/06/2023 7.2 07/28/2021 7.0 05/22/2021 7.0 ) Last Ophthalmology exam was within the past 12 months Mr. Tapia reports history of hyperlipidemia. Current therapy includes simvastatin (Zocor) 20 mg. Denies side effects of muscle weakness or achiness. His most recent lipid panels are reviewed. Cholesterol, Total (mg/dL) Date Value 02/06/2023 174 05/22/2021 188 HDL Cholesterol (mg/dL) Date Value 02/06/2023 43 05/22/2021 40 LDL Cholesterol (mg/dL) Date Value 02/06/2023 93 05/22/2021 101 Triglyceride (mg/dL) Date Value 02/06/2023 192 05/22/2021 233 Mr. Tapia indicates a history of hypertension and states that he is feeling well and denies any symptoms referable to elevated blood pressure. Specifically denies headache, chest pain, palpitations,dyspnea, and peripheral edema. Patient denies any side effects of his medication(s) and is compliant with their regimen. Last 3 Encounter BP Readings: Date: BP: 03/03/2024 100/60 11/26/2023 120/60 08/28/2023 100/60 He watches his diet for sodium, low fat and low cholesterol some of the time. He does not check BP's generally. Lara likes to exercise by walking on treadmill. 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 01/2023: Recurrent UTI Comment: didn't respond to Keflex, did well with Cipro 04/23/2008: Scar condition and fibrosis of skin 04/23/2008: Seborrheic dermatitis, unspecified No date: Type II or unspecified type diabetes mellitus without mention of complication, not stated as uncontrolled 04/07/2009: Umbilical hernia without mention of obstruction or gangrene 04/23/2008: Unspecified pruritic disorder PAST SURGICAL HISTORY 07/18/1982: CHOLECYSTECTOMY Comment: Cholecystectomy y: COLONOSCOPY FLX DX W/COLLJ SPEC WHEN PFRMD Comment: Colonoscopy repeat in 10 years 01/30/08: COLSC FLX W/RMVL OF TUMOR POLYP LESION SNARE TQ No date: EYE SURGERY HX 05-06-09: LAPAROSCOPY SURG RPR INITIAL INGUINAL HERNIA Comment: LEFT INGUINAL No date: PAST SURGICAL HISTORY OF Comment: Skin lesion removed from nose 05-06-09: RPR UMBILICAL HERNIA AGE 6 YRS/> INCARCERATED Social History Tobacco Use Smoking status: Never Smokeless tobacco: Never Vaping Use Vaping status: Never Used Substance Use Topics Alcohol use: Yes Comment: beer Drug use: No FAMILY HISTORY Problem Relation Age of Onset Breast Cancer Mother Heart Father chf Breast Cancer Sister Allergies: ALLERGIES Allergen Reactions Lyrica [Pregabalin] Other: See Comments Cough Current Meds: metFORMIN ER (GLUCOPHAGE XR) 750 mg 24 hr tablet Take 1 tablet by mouth two times a day with meals. predniSONE (DELTASONE) 10 mg tablet Take 3 tablets by mouth once daily for 7 days. lamoTRIgine (LAMICTAL) 25 mg tablet Take 1 tablet by mouth once daily. Clobetasol Propionate (TEMOVATE) 0.05 % external solution Apply 1 application to affected area oncedaily as needed (scalp psoriasis). mupirocin (BACTROBAN) 2 % ointment Apply to affected area every 12 hours as needed (skin wound or infection). simvastatin (ZOCOR) 20 mg tablet Take 1 tablet by mouth once daily. meloxicam (MOBIC) 7.5 mg tablet TAKE 1 TABLET BY MOUTH ONCE DAILY. NEEDED FOR FOOT PAIN, WITH FOOD. glimepiride (AMARYL) 4 mg tablet Take 1 tablet by mouth two times a day with meals. losartan (COZAAR) 50 mg tablet Take 1 tablet by mouth once daily. gabapentin (NEURONTIN) 300 mg capsule TAKE 3 CAPSULES BY MOUTH 3 TIMES A DAY warfarin (COUMADIN) 4 mg tablet Take 4 mg by mouth daily as directed. 4 mg Sat, Sun, Mon, 8 mg all other days blood sugar diagnostic (ONETOUCH ULTRA TEST) test strip Test blood sugars once daily. DX: E11.42 Insulin: No clopidogrel (PLAVIX) 75 mg tablet Take 75 [...] Test blood sugar(s) 1 times daily. Dx: OtherDM Code E11.42 Insulin: No. Patient uses One Touch Verio cyanocobalamin (VITAMIN B-12) 1,000 mcg tab Take 1,000 mcg by mouth once daily. COMPOUNDED PRESCRIPTION Diabetic shoes Dx: E11.65, DM2 Last office visit 05/20/18. ketoconazole (NIZORAL) 2 % shampoo Apply 1 application to affected area once daily as needed for Itching/Rash (scalp itching). 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 Dx: Other DM Code E11.42 Insulin: No blood sugar diagnostic (BLOOD GLUCOSE TEST) test strip Test blood sugar(s) 1 times daily. Dx: OtherDM Code E11.42 Insulin: No Clobetasol Propionate 0.05 % external solution Apply to scalp psoriasis patches and plaques selectively qday to bid (once or twice a day) as needed and AVOID face, eyes, eyelids, and deep fold areas. Ucquhoylwcl-Eikpavuea-Zce C-Mn (GLUCOSAMINE CHONDROITIN MAXSTR) 500-400 mg ORAL Cap Take one(1) tablet daily. Aspirin 81 mg ORAL Tab Take one(1) tablet daily. Review of Systems: The remainder of the review of systems is negative. PE: 03/03/24 0955 BP: 100/60 Pulse: 60 Resp: 20 Temp: 36.4 C (97.5 F) TempSrc: Left Tympanic Weight: 89.4 kg (197 lb) Gen: A&O, NAD, non-toxic appearing, Pleasant, [...] LE, sensation intact. Skin: warm, dry, intact, non blanchable erythematous papular vascular rash on b/l legs shins/calveswithout pain or blisters Foot exam: Monofilament abnormal on right and left feet. ASSESSMENT/PLAN: 1. Rash - ICD9: 782.1, ICD10: R21 (primary diagnosis) Concerns for vasculitis rx as below Check labs - METFORMIN ER 750 MG TABLET,EXTENDED RELEASE 24 HR - PREDNISONE 10 MG TABLET - C-REACTIVE PROTEIN - SEDIMENTATION RATE, WESTERGREN - LYME AB EARLY <=30 DAY SYMPTOMS - JESUS BLOOD - ANTI JAVIER ID - TRIAMCINOLONE ACETONIDE 0.5 % TOPICAL CREAM 2. 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 Type 2 diabetes mellitus with diabetic polyneuropathy, without long-term current use of insulin (HCC) - ICD9: 250.60, 357.2, ICD10: E11.42 - Controlled - Continue current medications - Blood glucose monitoring on a once daily schedule - Counseled on healthy diet and regular exercise - consider decreasing Amaryl to 2 mg twice a day 4. Other polyneuropathy - ICD9: 357.89, ICD10: G62.89 stable 5. Mixed hyperlipidemia - ICD9: 272.2, ICD10: E78.2 - Control undetermined, due for labs - Counseled on healthy diet and regular exercise - Discussed need for and benefit of weight loss. BMI 30.56 kg/(m^2) 6. Primary hypertension - ICD9: 401.9, ICD10: I10 - Controlled - Continue current medications - Recommend home blood pressure monitoring, to bring results to next visit - Encouraged sodium restriction, DASH or Mediterranean diet - Recommend regular aerobic exercise Harlan Ford DO To ER if develops chest pain, shortness of breath, or severe worsening of symptoms. Discussed risks, benefits, alternatives, and potential side effects of medications. Patient expressed understanding and agreed with the plan. Harlan Ford DO [address] [place] [address] documented in this encounterOhio[facility]08-[facility]24 Telephone encounter Note * Telephone Encounter - Wilda Cheek MA - 02/13/2024 2:38 PM EDT Faxed by Adali Cheek MA [facility] Miscellaneous Notes* Telephone Encounter - Wilda Cheek MA - 02/13/2024 2:38 PM EDT Faxed by Adali Cheek MA * Telephone Encounter - Ida Gan APRN.JIGNA - 02/13/2024 2:18 PM EDT This is completed. Ida Gan APRN.CNP * Telephone Encounter - Wilda Cheek MA - 02/13/2024 1:39 PM EDT Form received and placed in AD inbox Wilda Cheek MA * Telephone Encounter - Wilda Cheek MA - 02/13/2024 10:57 AM EDT [facility] and she will refax form for PROJECT STRUCTURAL ENGINEER to sign since DO is out until next week. Wilda Cheek MA * Telephone Encounter - Ida Gan APRN.CNP - 02/12/2024 4:53 PM EDT I do not see this paperwork. I am willing to sign if able. Thank you, Ida Gan APRN.JIGNA * Telephone Encounter - Lily Harding RN - 02/11/2024 3:12 PM EDT Josie with [facility] calling and states she is faxing over 2 items today to be signed, to assist in getting diabetic shoes for this patient. She is requesting: Dr. Ford to sign their Office Visit note and fax back. Dr. Ford to sign the statement and fax back. Fax papers back to FAX #: [phone]. Thank you. documented in this encounterOhiohealth [facility]08-08-2024 Telephone encounter Note * Telephone Encounter - Ida Gan APRN.CNP - 02/13/2024 2:18 PM EDT This is completed. Ida Gan APRN.JIGNA [facility]08-[facility] Telephone encounter Note* Telephone Encounter - Wilda Cheek MA - 02/13/2024 1:39 PM EDT Form received and placed in AD inbox Wilda Cheek MA [facility]08-[facility] Telephone encounter Note* Telephone Encounter - Wilda Cheek MA - 02/13/2024 10:57 AM EDT [facility] and she will refax form for PROJECT STRUCTURAL ENGINEER to sign since DO is out until next week. Wilda Cheek MA [facility]08-07-[facility] Telephone encounter Note* Telephone Encounter - Ida Gan APRN.CNP - 02/12/2024 4:53 PM EDT I do not see this paperwork. I am willing to sign if able. Thank you, Ida Gan APRN.JIGNA [facility]08-06-[facility] Telephone encounter Note* Telephone Encounter - Lily Harding RN - 02/11/2024 3:12 PM EDT Josie with [facility] calling and states she is faxing over 2 items today to be signed, to assist in getting diabetic shoes for this patient. She is requesting: Dr. Ford to sign their Office Visit note and fax back. Dr. Ford to sign the statement and fax back. Fax papers back to FAX #: [phone]. Thank you. [facility] Telephone encounter Note* Telephone Encounter - Mary Rosado LPN - 01/30/2024 10:40 AM EDT [facility] calling asking for copy of last office visit to be faxed to [phone]. Printed note from 11/2023 and faxed. She is also waiting for form to be signed for his diabetic shoes and be returned to her. [facility] Miscellaneous Notes* Telephone Encounter - Mary Rosado LPN - 01/30/2024 10:40 AM EDT [facility] calling asking for copy of last office visit to be faxed to [phone]. Printed note from 11/2023 and faxed. She is also waiting for form to be signed for his diabetic shoes and be returned to her. documented in this encounterOhio[facility]07-24-2024 Telephone encounter Note * Telephone Encounter - Mandy Loyd - 01/29/2024 11:26 AM EDT Prescription Refill Information The patient has been identified by name and date of : Yes Caregiver verified no other encounters exist for this prescription request: Yes Caregiver confirmed with patient/requestor that no other refills are due, in the near future, with this provider at this time: Yes The last office visit in the department: 11/26/23 Does the patient have a future office visit with this provider/department: Yes Requested Prescriptions Pending Prescriptions Disp Refills lamoTRIgine (LAMICTAL) 25 mg tablet 90 tablet 3 Sig: Take 1 tablet by mouth once daily. Mandy Rodriguez January 29, 2024 11:27 AM [facility] Miscellaneous Notes* Telephone Encounter - Mandy Loyd - 01/29/2024 11:26 AM EDT Prescription Refill Information The patient has been identified by name and date of : Yes Caregiver verified no other encounters exist for this prescription request: Yes Caregiver confirmed with patient/requestor that no other refills are due, in the near future, with this provider at this time: Yes The last office visit in the department: 11/26/23 Does the patient have a future office visit with this provider/department: Yes Requested Prescriptions Pending Prescriptions Disp Refills lamoTRIgine (LAMICTAL) 25 mg tablet 90 tablet 3 Sig: Take 1 tablet by mouth once daily. Mandy Rodriguez January 29, 2024 11:27 AM documented in this encounterOhiohealth [facility]05-21-2024 History of Present illness Narrative* Harlan Ford DO - 11/26/2023 10:41 AM EDT Patient presents with: F/U 3 Month HPI: Lara Tapia is a 77 year old male who presents to the office today for review of health conditions. Concerns today: Skin lesion concerns on his face/head and head that he is concerned may be precancerous, has a history of AK and needing cryotherapy in the office. Hx of sun exposure Few wounds on anterior [place] areas from friction with a ladder when he was pressure washing his barn, no falls or injuries specifically otherwise. Peripheral neuropathy, onychomycosis, needs referral to have new Automobile Tester referral. Mr. Tapia has past history of diabetes. Since our last visit he denies excessive thirst or increased frequency of urination, chest pain or dyspnea , new or unusual visual symptoms, and low sugar/hypoglycemic reactions. Depression- no. Follows a diabetic diet most of the time. He is compliant with m edication(s) and is tolerating med(s) without any side effects. He reports checking his glucose on a once a day schedule with sugars in the <120 range. Patient's last HgA1C was Hemoglobin A1C (%) Date Value 05/20/2023 7.6 02/06/2023 7.2 07/28/2021 7.0 05/22/2021 7.0 ) Last Ophthalmology exam was within the past 6 months Mr. Tapia reports history of hyperlipidemia. Current therapy includes simvastatin (Zocor) 20 mg. Denies side effects of muscle weakness or achiness. His most recent lipid panels are reviewed. Cholesterol, Total (mg/dL) Date Value 02/06/2023 174 05/22/2021 188 HDL Cholesterol (mg/dL) Date Value 02/06/2023 43 05/22/2021 40 LDL Cholesterol (mg/dL) Date Value 02/06/2023 93 05/22/2021 101 Triglyceride (mg/dL) Date Value 02/06/2023 192 05/22/2021 233 Mr. Tapia indicates a history of hypertension and states that he is feeling well and denies any symptoms referable to elevated blood pressure. Specifically denies headache, chest pain, palpitations,dyspnea, and peripheral edema. Patient denies any side effects of his medication(s) and is compliant with their regimen. Last 3 Encounter BP Readings: Date: BP: 11/26/2023 120/60 08/28/2023 100/60 05/22/2023 120/60 He watches his diet for sodium, low fat and low cholesterol some of the time. He does check BP's away from this office with average BP's in the <120/80s range. Lara gets minimal exercise. PAST MEDICAL HISTORY [...] [Pregabalin] Other: See Comments Cough Current Meds: Clobetasol Propionate (TEMOVATE) 0.05 % external solution Apply 1 application to affected area oncedaily as needed (scalp psoriasis). mupirocin (BACTROBAN) 2 % ointment Apply to affected area every 12 hours as needed (skin wound or infection). simvastatin (ZOCOR) 20 mg tablet Take 1 tablet by mouth once daily. meloxicam (MOBIC) 7.5 mg tablet TAKE 1 TABLET BY MOUTH ONCE DAILY. NEEDED FOR FOOT PAIN, WITH FOOD. glimepiride (AMARYL) 4 mg tablet Take 1 tablet by mouth two times a day with meals. losartan (COZAAR) 50 mg tablet Take 1 tablet by mouth once daily. gabapentin (NEURONTIN) 300 mg capsule TAKE 3 CAPSULES BY MOUTH 3 TIMES A DAY warfarin (COUMADIN) 4 mg tablet Take 4 mg by mouth daily as directed. 4 mg Sat, Sun, Mon, 8 mg all other days metFORMIN ER (GLUCOPHAGE XR) 750 mg 24 hr tablet Take 1 tablet by mouth two times a day with meals. blood sugar diagnostic ([employer] ULTRA TEST) test strip Test blood sugars once daily. DX: E11.42 Insulin: No lamoTRIgine (LAMICTAL) 25 mg tablet Take 1 [...] Test blood sugar(s) 1 times daily. Dx: OtherDM Code E11.42 Insulin: No. Patient uses One Touch Verio cyanocobalamin (VITAMIN B-12) 1,000 mcg tab Take 1,000 mcg by mouth once daily. COMPOUNDED PRESCRIPTION Diabetic shoes Dx: E11.65, DM2 Last office visit 05/20/18. ketoconazole (NIZORAL) 2 % shampoo Apply 1 application to affected area once daily as needed for Itching/Rash (scalp itching). 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 Dx: Other DM Code E11.42 Insulin: No blood sugar diagnostic (BLOOD GLUCOSE TEST) test strip Test blood sugar(s) 1 times daily. Dx: OtherDM Code E11.42 Insulin: No Clobetasol Propionate 0.05 % external solution Apply to scalp psoriasis patches and plaques selectively qday to bid (once or twice a day) as needed and AVOID face, eyes, eyelids, and deep fold areas. Wyirypgmgsw-Yoeucilzg-Hgm C-Mn (GLUCOSAMINE CHONDROITIN MAXSTR) 500-400 mg ORAL Cap Take one(1) tablet daily. Aspirin 81 mg ORAL Tab Take one(1) tablet daily. Review of Systems: The remainder of the review of systems is negative. PE: 11/26/23 0948 BP: 120/60 Pulse: 80 Resp: 20 Temp: 36.2 C (97.2 F) TempSrc: Left Tympanic Weight: 89.8 kg (198 lb) Gen: A&O, NAD, non-toxic appearing, Pleasant, cooperative HEENT: NT/AC, PERRLA, EOMs intact b/l, visually impaired right eye, nares clear and patent b/l, pharynx without [...] and LE, DTRs 2/4 UE and LE, neuropathy feet and lower legs Skin: warm, dry, intact, abrasion b/l anterior tibia mid tibia without signs of infection. Actinic keratosis right superior helix of ear, actinic keratosis right mid eyebrow, actinic keratosis right mid cheek, actinic keratosis left mid cheek Foot exam: Monofilament abnormal on right and left feet. ASSESSMENT/PLAN: 1. Type 2 diabetes mellitus with diabetic polyneuropathy, without long-term current use of insulin ([facility]) - ICD9: 250.60, 357.2, ICD10: E11.42 (primary diagnosis) - Controlled - Continue current medications - Blood glucose monitoring on a twice daily schedule - Counseled on healthy diet and regular exercise - CONSULT TO PODIATRY 2. Rosacea - ICD9: 695.3, ICD10: L71.9 stable 3. Abrasion, leg w/o infection - ICD9: 916.0, ICD10: S80.819A rx for prn use, not currently infected. - MUPIROCIN 2 % TOPICAL OINTMENT 4. Diabetic ulcer of left midfoot associated with type 2 diabetes mellitus, limited to breakdown ofskin ([facility]) - ICD9: 250.80, 707.14, ICD10: E11.621, L97.421 - Controlled - Continue current medications - Blood glucose monitoring on a once daily schedule - Counseled on healthy diet and regular exercise 5. PAD (peripheral artery disease) ([facility]) - ICD9: 443.9, ICD10: I73.9 Stable, chronic 6. Thrombocytopenia ([facility]) - ICD9: 287.5, ICD10: D69.6 stable 7. Hypertension, essential - ICD9: 401.9, ICD10: I10 - Controlled - Continue current medications - Recommend home blood pressure monitoring, to bring results to next visit - Encouraged sodium restriction, DASH or Mediterranean diet - Recommend regular aerobic exercise 8. Mixed hyperlipidemia - ICD9: 272.2, ICD10: E78.2 - Controlled - Continue current medications - Counseled on healthy diet and regular exercise - Discussed need for and benefit of weight loss. BMI 30.72 kg/(m^2) 9. Atrial fibrillation with rapid ventricular response (HCC) - ICD9: 427.31, ICD10: I48.91 F/u with Special Skills Officer, no new symptoms 10. Other polyneuropathy - ICD9: 357.89, ICD10: G62.89 F/u with Automobile Tester, secondary to diabetes. 11. Actinic keratosis - ICD9: 702.0, ICD10: L57.0 Treated x 4 as above with cryotherapy, tolerated well, he is aware of care at home Harlan Ford DO To ER if develops chest pain, shortness of breath, or severe worsening of symptoms. Discussed risks, benefits, alternatives, and potential side effects of medications. Patient expressed understanding and agreed with the plan. Harlan Ford DO [address] [place] [address] documented in this encounterOhio[facility]05-21-2024 Instructions* Patient Instructions* Harlan Ford DO - 11/26/2023 10:23 AM EDT Address: [address] [place], [place] [id number] Open ? Closes 4:30?PM Automobile Tester office documented in this encounterOhiohealth [facility]04-12-2024 Miscellaneous Notes* Telephone Encounter - Fannie Bradford - 10/18/2023 10:40 AM EDT Patient has been identified by name and date of : Yes, Provider Harlan Ford Date 10/18/2023 Time 10:42 am Patient phones for refill(s): Requested Prescriptions Pending Prescriptions Disp Refills simvastatin (ZOCOR) 20 mg tablet 90 tablet 2 Sig: Take 1 tablet by mouth once daily. Date of last office visit in primary care: 08/28/2023 Date of next office visit in primary care: 11/26/2023 Please advise. Thank you. Fannie Kent. documented in this encounterOhiohealth [facility] Hospital04-10-2024 Miscellaneous Notes* Telephone Encounter - Adali Arreguin LPN - 10/16/2023 10:42 AM EDT Patient has been identified by name and date of : Yes, Provider Dr. Ford Date 10/16/23 Time 10:43 Patient phones for refill(s): Requested Prescriptions Pending Prescriptions Disp Refills meloxicam (MOBIC) 7.5 mg tablet 90 tablet 1 Sig: TAKE 1 TABLET BY MOUTH ONCE DAILY. NEEDED FOR FOOT PAIN, WITH FOOD. glimepiride (AMARYL) 4 mg tablet 180 tablet 1 Sig: Take 1 tablet by mouth two times a day with meals. losartan (COZAAR) 50 mg tablet 90 tablet 3 Sig: Take 1 tablet by mouth once daily. Date of last office visit in primary care: 08/28/2023 Date of next office visit in primary care: 11/26/2023 Please advise. Thank you. Adali Arreguin LPN. * Telephone Encounter - Rhianna Helton - 10/15/2023 3:03 PM EDT Patient has been identified by name and date of : Yes Patient phones for refill(s): Requested Prescriptions Pending Prescriptions Disp Refills meloxicam (MOBIC) 7.5 mg tablet 90 tablet 1 Sig: TAKE 1 TABLET BY MOUTH ONCE DAILY. NEEDED FOR FOOT PAIN, WITH FOOD. glimepiride (AMARYL) 4 mg tablet 180 tablet 1 Sig: Take 1 tablet by mouth two times a day with meals. losartan (COZAAR) 50 mg tablet 90 tablet 3 Sig: Take 1 tablet by mouth once daily. metFORMIN ER (GLUCOPHAGE XR) 750 mg 24 hr tablet 180 tablet 1 Sig: Take 1 tablet by mouth two times a day with meals. Date of last office visit in primary care: 08/28/2023 Date of next office visit in primary care: 11/26/2023 Please advise. Thank you. Rhianna Helton. documented in this encounterOhiohealth [facility] Hospital04-09-2024 Miscellaneous Notes* Telephone Encounter - Sylvain Rodriguez LPN - 10/15/2023 10:34 AM EDT Patient has been identified by name and date of : Yes Patient phones for refill(s): Requested Prescriptions Pending Prescriptions Disp Refills gabapentin (NEURONTIN) 300 mg capsule [Pharmacy Med Name: GABAPENTIN 300 MG CAPSULE] 810 capsule 1 Sig: TAKE 3 CAPSULES BY MOUTH 3 TIMES A DAY Date of last office visit in primary care: 08/28/2023 Date of next office visit in primary care: 11/26/2023 Please advise. Thank you. Sylvain Rodriguez LPN. documented in this encounterOhiohealth [facility] Hospital02-21-2024 History of Present illness Narrative* Harlan Ford, - 08/28/2023 10:10 PM EST Patient presents with: F/U 3 Month HPI: Lara Tapia is a 77 year old male who presents to the office today for review of health conditions. Concerns today: Mood, stable, taking lamictal, no concerns. Thrombocytopenia, intermittent hx of, has seen Dr. Mario in the past in 2019 with otherwise negative work up. Currently platelets at 73,000 and he is asymptomatic. Arthritis, joint pains, chronic, stable, taking meloxicam as needed. Admits needs to be exercising more consistently than what he is doing- he feels that his peripheralneuropathy has been limiting this Mr. Tapia has past history of diabetes. Since our last visit he denies excessive thirst or increased frequency of urination, chest pain or dyspnea , new or unusual visual symptoms, and low sugar/hypoglycemic reactions. Depression- no. Follows a diabetic diet some of the time. He is compliant with m edication(s) and is tolerating med(s) without any side effects. He reports checking his glucose on a once a day schedule with sugars in the fasting <100 range. Patient's last HgA1C was Hemoglobin A1C (%) Date Value 05/20/2023 7.6 02/06/2023 7.2 07/28/2021 7.0 05/22/2021 7.0 ) Last Ophthalmology exam was within the past 12 months Mr. Tapia reports history of hyperlipidemia. Current therapy includes simvastatin (Zocor) 20 mg. Denies side effects of muscle weakness or achiness. His most recent lipid panels are reviewed. Cholesterol, Total (mg/dL) Date Value 02/06/2023 174 05/22/2021 188 HDL Cholesterol (mg/dL) Date Value 02/06/2023 43 05/22/2021 40 LDL Cholesterol (mg/dL) Date Value 02/06/2023 93 05/22/2021 101 Triglyceride (mg/dL) Date Value 02/06/2023 192 05/22/2021 233 Mr. Tapai indicates a history of hypertension and states that he is feeling well and denies any symptoms referable to elevated blood pressure. Specifically denies headache, chest pain, palpitations,dyspnea, and peripheral edema. Patient denies any side effects of his medication(s) and is compliant with their regimen. Last 3 Encounter BP Readings: Date: BP: 08/28/2023 100/60 05/22/2023 120/60 02/13/2023 120/50 He watches his diet for sodium, low [...] [Pregabalin] Other: See Comments Cough Current Meds: blood sugar diagnostic ([employer] MedicalTOUCH ULTRA TEST) test strip Test blood sugars once daily. DX: E11.42 Insulin: No simvastatin (ZOCOR) 20 mg tablet Take 1 tablet by mouth once daily. glimepiride (AMARYL) 4 mg tablet Take 1 tablet by mouth two times a day with meals. meloxicam (MOBIC) 7.5 mg tablet TAKE 1 TABLET BY MOUTH ONCE DAILY. NEEDED FOR FOOT PAIN, WITH FOOD. gabapentin (NEURONTIN) 300 mg capsule TAKE 3 CAPSULES 3 TIMES A DAY lamoTRIgine (LAMICTAL) 25 mg tablet Take 1 [...] Take 500 mg by mouth once daily. blood sugar diagnostic (BLOOD GLUCOSE TEST) test strip Test blood sugar(s) 1 times daily. Dx: OtherDM Code E11.42 Insulin: No. Patient uses One Touch Verio Clobetasol Propionate (TEMOVATE) 0.05 % external solution Apply 1 application to affected area oncedaily as needed (scalp psoriasis). cyanocobalamin (VITAMIN B-12) 1,000 mcg tab Take 1,000 mcg by mouth once daily. COMPOUNDED PRESCRIPTION Diabetic shoes Dx: E11.65, DM2 Last office visit 05/20/18. ketoconazole (NIZORAL) 2 % shampoo Apply 1 application to affected area once daily as needed for Itching/Rash (scalp itching). 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 Dx: Other DM Code E11.42 Insulin: No blood sugar diagnostic (BLOOD GLUCOSE TEST) test strip Test blood sugar(s) 1 times daily. Dx: OtherDM Code E11.42 Insulin: No Clobetasol Propionate 0.05 % external solution Apply to scalp psoriasis patches and plaques selectively qday to bid (once or twice a day) as needed and AVOID face, eyes, eyelids, and deep fold areas. Xchudliipii-Nczgwnfyo-Hdr C-Mn (GLUCOSAMINE CHONDROITIN MAXSTR) 500-400 mg ORAL Cap Take one(1) tablet daily. Aspirin 81 mg ORAL Tab Take one(1) tablet daily. warfarin (COUMADIN) 4 mg tablet Take 4 mg by mouth daily as directed. 4 mg Sat, Sun, Mon, 8 mg all other days metFORMIN ER (GLUCOPHAGE XR) 750 mg 24 hr tablet Take 1 tablet by mouth two times a day with meals. aspirin 81 mg chewable tablet Take 1 tablet by mouth once daily. Review of Systems: The remainder of the review of systems is negative. PE: 08/28/23 1310 BP: 100/60 Pulse: 68 Resp: 16 Temp: 36.2 C (97.2 F) TempSrc: Temporal Weight: 93 kg (205 lb) Gen: A&O, NAD, non-toxic appearing, Pleasant, [...] intact. Skin: warm, dry, intact, actinic keratosis on right posterior neck, actinic keratosis lateral to right lateral eyebrow, actinic keratosis x 2 on left superior cheek Foot exam: + peripheral neuropathy ASSESSMENT/PLAN: 1. Type 2 diabetes mellitus with diabetic polyneuropathy, without long-term current use of insulin (HCC) - ICD9: 250.60, 357.2, ICD10: E11.42 (primary diagnosis) - Improving control - Continue current medications - Blood glucose monitoring on a once daily schedule - Counseled on healthy diet and regular exercise - Discussed need for and benefit of weight loss. BMI 31.80 kg/(m^2) 2. Mixed hyperlipidemia - ICD9: 272.2, ICD10: E78.2 - Control undetermined, due for labs - Continue current medications - Counseled on healthy diet and regular exercise 3. Atrial fibrillation with rapid ventricular response (HCC) - ICD9: 427.31, ICD10: I48.91 Continue coumadin, he is doing well on starting this medication 4. Hypertension, essential - ICD9: 401.9, ICD10: I10 - Controlled - Continue current medications - Recommend home blood pressure monitoring, to bring results to next visit - Encouraged sodium restriction, DASH or Mediterranean diet - Recommend regular aerobic exercise 5. Gait disorder - ICD9: 781.2, ICD10: R26.9 Secondary to his OA as well as peripheral neuropathy 6. Actinic keratosis - ICD9: 702.0, ICD10: L57.0 Treated x 4 as above with cryotherapy today in the office, he tolerated rx well without complication, he is aware of care at home Harlan Ford DO To ER if develops chest pain, shortness of breath, or severe worsening of symptoms. Discussed risks, benefits, alternatives, and potential side effects of medications. Patient expressed understanding and agreed with the plan. Harlan Ford DO [address] [place] [address] documented in this encounterOhio[facility]01-12-[facility]24 Telephone encounter Note * Telephone Encounter - Harlan Ford DO - 07/19/2023 5:08 PM EST See other TE, this is a duplicate Harlan Ford DO [facility]01-[facility] Miscellaneous Notes* Telephone Encounter - Harlan Ford DO - 07/19/2023 5:08 PM EST See other TE, this is a duplicate Harlan Ford DO * Telephone Encounter - Mandy Monroy LPN - 07/17/2023 3:13 PM EST Images from the original note were not included. Pt called regarding the Plavex. He states he is not sure when he stopped taking that medication. Herealized that it is on his med list from September but he does not have that medication and doesn't know when he ran out. He wants to know if he should be on that medicaiton first before trying somethingnew because of this information. Could it be the fact that he was not on it all causing his problems. He wanted Dr. Ford's input on this before agreeing change to coumadin. Note You Yesterday (2:58 PM) PIERRE Wild informed Dr. Ford is ok to change med just needs Cbc and CMP in a month. Note Josie Licona, RN routed conversation to Harlan Ford DO; Wstr Kyra Craft Yesterday(1:42 PM) Josie Licona, MATEO Yesterday (1:42 PM) AB Torri CARL with [facility] called in and reports Pt has Afib and his platelets have been low. In January when he was in the hospital they were 52 on 05/20/23 they were 63. She was wantingto see if provider would be ok with her stopping the Pts Aspirin and Plavix (anti-platelets)and switching him to Eliquis (anti-coagulant). She reports Pt has worked with Oncology in the past. Please c all her back, extension goes directly to her. Note documented in this encounterOhiohealth [facility] Hospital01-10-2024 Telephone encounter Note * Telephone Encounter - Mandy Monroy LPN - 07/17/2023 3:13 PM EST Images from the original note were not included. Pt called regarding the Plavex. He states he is not sure when he stopped taking that medication. Herealized that it is on his med list from September but he does not have that medication and doesn't know when he ran out. He wants to know if he should be on that medicaiton first before trying somethingnew because of this information. Could it be the fact that he was not on it all causing his problems. He wanted Dr. Ford's input on this before agreeing change to coumadin. Note You Yesterday (2:58 PM) PIERRE Wild informed Dr. Ford is ok to change med just needs Cbc and CMP in a month. Note Josie Licona, RN routed conversation to Harlan Ford DO; Wstr Fp Logan Craft Yesterday(1:42 PM) Josie Licona, MATEO Yesterday (1:42 PM) AB Torri CARL with [facility] called in and reports Pt has Afib and his platelets have been low. In January when he was in the hospital they were 52 on 05/20/23 they were 63. She was wantingto see if provider would be ok with her stopping the Pts Aspirin and Plavix (anti-platelets)and switching him to Eliquis (anti-coagulant). She reports Pt has worked with Oncology in the past. Please c all her back, extension goes directly to her. Note [facility] Miscellaneous Notes* Telephone Encounter - Kathi Corrigan MA - 06/10/2023 10:45 AM EST Patient has been identified by name and date of : Yes Requested Prescriptions Pending Prescriptions Disp Refills blood sugar diagnostic (ONETOUCH ULTRA TEST) test strip 100 Strip 3 Sig: Test blood sugars once daily. DX: E11.42 Insulin: No RX INSTRUCTIONS: Patient aware RX will be sent to pharmacy. No need to notify patient. Kathi Corrigan MA Mony 05/2023 Nov 08/2023 Last refill; 12/2021 * Telephone Encounter - Kaylee Jolly - 06/10/2023 10:36 AM EST Patient has been identified by name and date of : Yes Requested Prescriptions Pending Prescriptions Disp Refills blood sugar diagnostic (ONETOUCH ULTRA TEST) test strip 100 Strip 3 Sig: Test blood sugars once daily. DX: E11.42 Insulin: No RX INSTRUCTIONS: Patient aware RX will be sent to pharmacy. No need to notify patient. 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 Mr. Tapia has past history of diabetes. Since our [...] was within the past 12 months Mr. Tapia reports history of hyperlipidemia. Current therapy includes simvastatin (Zocor) 20 mg. Denies side effects of muscle weakness or achiness. His most recent lipid panels are reviewed. Cholesterol, Total (mg/dL) Date Value 02/06/2023 174 05/22/2021 188 HDL Cholesterol (mg/dL) Date Value 02/06/2023 43 05/22/2021 40 LDL Cholesterol (mg/dL) Date Value 02/06/2023 93 05/22/2021 101 Triglyceride (mg/dL) Date Value 02/06/2023 192 05/22/2021 233 Mr. Tapia indicates a history of hypertension and states that he is feeling well and denies any symptoms referable to elevated blood pressure. Specifically denies headache, chest pain, palpitations,dyspnea, and peripheral edema. Patient denies any side [...] Test blood sugar(s) 1 times daily. Dx: OtherDM Code E11.42 Insulin: No. Patient uses One Touch Verio Clobetasol Propionate (TEMOVATE) 0.05 % external solution Apply 1 application to affected area oncedaily as needed (scalp psoriasis). 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 Dx: Other DM Code E11.42 Insulin: No blood sugar diagnostic (BLOOD GLUCOSE TEST) test strip Test blood sugar(s) 1 times daily. Dx: OtherDM Code E11.42 Insulin: No Clobetasol Propionate 0.05 % external solution Apply to scalp psoriasis patches and plaques selectively qday to bid (once or twice a day) as needed and AVOID face, eyes, eyelids, and deep fold areas. Odjmysqofip-Zudmtlqog-Uix C-Mn (GLUCOSAMINE CHONDROITIN MAXSTR) 500-400 mg ORAL [...] - ICD9: 427.31, ICD10: I48.91 F/u with demand generator manager, no recent symptoms 6. Acute renal insufficiency [...] 287.5, ICD10: D69.6 F/u with opinion by Registered Respiratory Therapist to determine if any other testing is needed. Harlan Ford DO To ER if develops chest pain, shortness of breath, or severe worsening of symptoms. Discussed risks, benefits, alternatives, and potential side effects of medications. Patient expressed understanding and agreed with the plan. Harlan Ford DO [address] [place] [address] documented in this encounterOhiohealth Doctors Hospital09-15-2023 Miscellaneous Notes* Telephone Encounter - Rhianna Helton - 03/22/2023 11:02 AM EDT Patient has been identified by name and date of : Yes Requested Prescriptions Pending Prescriptions Disp Refills gabapentin (NEURONTIN) 300 mg capsule 810 capsule 1 Sig: TAKE 3 CAPSULES 3 TIMES A DAY MONY-02/13/23 Labs-02/06/23 NOV-05/22/23 RX INSTRUCTIONS: Patient aware RX will be sent to pharmacy. No need to notify patient. Rhianna Helton documented in this encounterOhiohealth Doctors Hospital08-17-2023 Miscellaneous Notes* Telephone Encounter - Guille Wolfe LPN - 02/21/2023 10:01 AM EDT Last refill 05/10/22 Qty: 180 with 1 refill MONY 02/13/23 NOV 05/22/23 Guille Wolfe LPN * Telephone Encounter - Erika Smith - 02/21/2023 9:26 AM EDT Patient has been identified by name and date of : Yes, Provider LOGAN Patient phones for refill(s): Requested Prescriptions Pending [...] Thank you. Erika Smith documented in this encounterOhiohealth Doctors Hospital08-09-2023 History of Present illness Narrative* Harlan Ford DO - 02/13/2023 9:21 PM EDT Patient presents with: F/U 3 Month HPI: Lara Tapia is a 77 year old male who presents to the office today for review of health conditions. Concerns today: Overall is feeling better. Recently at [facility] for acute diverticulitis, UTI, acute renal [...] just had a follow up outpatient with [facility] and will be wearing a cafeteria monitor for further evaluation. He is asymptomatic. Mr. Tapia has past history of diabetes. Since our last visit he denies excessive thirst or increased frequency of urination, chest pain or dyspnea , new or unusual visual symptoms, and low sugar/hypoglycemic reactions. Depression- no. Follows a diabetic diet some of the time. He is compliant with m edication(s) and is tolerating med(s) without any side effects. He reports checking his glucose on a once a day schedule with sugars in the <120 range. Patient's last HgA1C was Hemoglobin A1C (%) Date Value 02/06/2023 7.2 11/09/2022 7.2 07/28/2021 7.0 05/22/2021 7.0 ) Last Ophthalmology exam was within the past 12 months Mr. Tapia reports history of hyperlipidemia. Current therapy includes simvastatin (Zocor) 20 mg. Denies side effects of muscle weakness or achiness. His most recent lipid panels are reviewed. Cholesterol, Total (mg/dL) Date Value 02/06/2023 174 05/22/2021 188 HDL Cholesterol (mg/dL) Date Value 02/06/2023 43 05/22/2021 40 LDL Cholesterol (mg/dL) Date Value 02/06/2023 93 05/22/2021 101 Triglyceride (mg/dL) Date Value 02/06/2023 192 05/22/2021 233 Mr. Tapia indicates a history of hypertension and states that he is feeling well and denies any symptoms referable to elevated blood pressure. Specifically denies headache, chest pain, palpitations,dyspnea, and peripheral edema. Patient denies any side [...] Test blood sugar(s) 1 times daily. Dx: OtherDM Code E11.42 Insulin: No. Patient uses One Touch Verio Clobetasol Propionate (TEMOVATE) 0.05 % external solution Apply 1 application to affected area oncedaily as needed (scalp psoriasis). 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 Dx: Other DM Code E11.42 Insulin: No blood sugar diagnostic (BLOOD GLUCOSE TEST) test strip Test blood sugar(s) 1 times daily. Dx: OtherDM Code E11.42 Insulin: No Clobetasol Propionate 0.05 % external solution Apply to scalp psoriasis patches and plaques selectively qday to bid (once or twice a day) as needed and AVOID face, eyes, eyelids, and deep fold areas. Gffmtstkpok-Nrdxnmfkn-Xdp C-Mn (GLUCOSAMINE CHONDROITIN MAXSTR) 500-400 mg ORAL [...] had any recent episodes. Was seen by Special Skills Officer and will be having cafeteria monitor placed [...] See above, chronic, no new changes Harlan Ford DO To ER if develops chest pain, shortness of breath, or severe worsening of symptoms. Discussed risks, benefits, alternatives, and potential side effects of medications. Patient expressed understanding and agreed with the plan. Harlan Ford DO [address] [place] [address] documented in this encounterOhiohealth [facility] Hospital07-20-2023 Discharge summary Author Parvez Thornton [facility] January 24, 2023 3:47pm Note Date/Time January 24, 2023 1:27 pm [facility] Medical Records Department [address] [place] [address] Emergency Department Summary 01/24/23 MR#: [id number] Acct: [id number] Name: LARA TAPIA Rep #:[id number] : 1945 77 From: Parvez Armas PCP: Dr. Harlan Ford DO Status:AD M [facility] Location: [place] [address] HPI History of Present Illness Chief Complaint: Weakness Informant: patient and family Narrative Narrative: Patient presenting here with family increasing weakness overnight with occasional lightheaded symptoms. No chest pains palpitations racing heart feeling. Denies any cough. States his family has been making him drink more water since his UTI diagnosed earlier this month with confusion. Denies any reported kidney injury. He states last night felt weak and lightheaded. 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 Romreo. She is on baby aspirin since then. Hypertension, diabetes, hyperlipidemia history. No cardiac dysrhythmia has no coronary history. Prior similar symptoms: No PFSH [facility] Medical History Diabetes mellitus Easy bruising Excessive bleeding High cholesterol History of pain when walking Hypercholesteremia Hypertension Non-smoker Vision loss, right eye Wears glasses Wears partial dentures Home Medications aspirin 81 mg tablet 81 mg PO DAILY BLOOD THINNER 09/06/22 [History Last Taken 01/23/23] cyanocobalamin (vitamin B-12) 1,000 mcg tablet (Vitamin B-12) 1,000 mcg PO DAILYSUPPLEMENT 09/06/22 [History Last Taken 01/23/23] gabapentin 300 mg capsule 900 mg PO TID PAIN 09/06/22 [History Last Taken 01/24/23] glimepiride 4 mg tablet 4 mg PO BID DIABETES 09/06/22 [History Last Taken 01/23/23] vaamdftdaho-fgqzpwnvo-igm C-Mn 500 mg-400 mg capsule (Glucosamine Chondroitin Maximum Strength) 1 cap PO DAILY SUPPLEMENT 09/06/22 [History Last Taken 01/23/23] hydrochlorothiazide 12.5 mg capsule 12.5 mg PO DAILY BP 09/06/22 [History Last Taken 01/23/23] lamotrigine 25 mg tablet 25 mg PO DAILY PT UNSURE 09/06/22 [History Last Taken 01/23/23] losartan 50 mg tablet 50 mg PO DAILY BP 09/06/22 [History Last Taken 01/23/23] metformin 750 mg tablet,extended release 24 hr 750 mg PO BID DIABETES 09/06/22 [History Last Taken 01/24/23] potassium 99 mg tablet 99 mg PO DAILY SUPPLEMENT 09/06/22 [History Last Taken 01/23/23] magnesium oxide 500 mg capsule 500 mg PO DAILY SUPPLEMENT 09/10/22 [History Last Taken 01/23/23] cholecalciferol (vitamin D3) 25 mcg (1,000 unit) capsule (Vitamin D3) 25 mcg PO DAILY SUPPLEMENT 09/13/22 [History Last Taken 01/23/23] meloxicam 7.5 mg tablet 7.5 mg PO PRN PRN FOOT PAIN 09/13/22 [History Last Taken 01/23/23] pyridoxine (vitamin B6) 50 mg tablet (Vitamin B-6) 50 mg PO DAILY SUPPLEMENT 09/13/22 [History Last Taken 01/23/23] tamsulosin 0.4 mg capsule 0.4 mg PO DAILY@1730 30 days #30 caps 09/20/22 [Rx Last Taken 01/23/23] simvastatin 20 mg tablet 20 mg PO DAILY 10/11/22 [History Last Taken 01/23/23] Allergy/AdvReac Type Severity Reaction Status Date / Time pregabalin [From Lyrica] AdvReac Other Verified 01/24/23 13:10 Surgical History Hx laparoscopic cholecystectomy Hx of bilateral cataract extraction Hx of colonoscopy Hx of hernia repair Hx of total knee replacement Social History Smoking Status: Never smoker ROS ROS ED Constitutional Constitutional ED: Denies chills, fever(s) or sweats Eyes Eyes: Denies change in vision ENT ENT ED: Denies dysphagia or sore throat Cardiovascular Cardiovascular: Reports other Details: Lightheaded ; Denies chest pain, leg edema, palpitations or racing heartbeat Respiratory/Chest Respiratory/Chest: Denies cough, dyspnea or dyspnea on exertion Gastrointestinal Gastrointestinal: Denies abdominal pain, diarrhea, nausea or vomiting Genitourinary Genitourinary ED: Denies dysuria, hematuria or urinary frequency Musculoskeletal Musculoskeletal: Denies back pain, extremity pain or neck pain Integumentary Denies rash or wounds Neurologic Neurologic: Denies headache(s), paresthesias or weakness EXAM Physical Exam Const Vital Signs: 01/24/23 13:03 01/24/23 13:13 01/24/23 13:13 Temperature 97.7 F L Temperature Source Temporal Pulse Rate 133 H 135 H Respiratory Rate 18 19 H Respiratory Effort Normal Non-Labored Respiratory Pattern Normal Blood Pressure 204/164 H 122/54 H Blood Pressure Mean 177 76 Pulse Ox 97 95 Oxygen Delivery Method Room Air Room Air 01/24/23 13:16 01/24/23 13:25 01/24/23 13:38 Temperature Temperature Source Pulse Rate 141 H 98 95 Respiratory Rate 16 19 H 18 Respiratory Effort Respiratory Pattern Blood Pressure 139/124 H 102/58 L 111/63 Blood Pressure Mean 129 72 79 Pulse Ox 95 94 96 Oxygen Delivery Method Room Air Room Air Room Air 01/24/23 14:00 01/24/23 15:17 Temperature 99.2 F H Temperature Source Oral Pulse Rate 95 67 Respiratory Rate 19 H 15 Respiratory Effort Respiratory Pattern Blood Pressure 132/58 H 97/49 L Blood Pressure Mean 82 65 Pulse Ox 95 98 Oxygen Delivery Method Room Air Room Air Positive well nourished and well developed General Appearance ED: well developed and NAD HEENT Reports moist mucous membranes normocephalic and atraumatic Eyes PERRL, EOMs intact bilaterally and conjunctivae normal General Eye ED: Yes normal appearance of both eyes Neck no lymphadenopathy and supple General: Negative for tenderness Chest Wall Chest: Negative for tenderness Resp normal respiratory effort and normal air movement Effort and Inspection: symmetric chest movement; Negative for respiratory distress Cardio Rate: tachycardic Rhythm: abnormal rhythm Peripheral Pulses: pulses 2+ throughout GI normal to inspection, nondistended, normoactive bowel sounds and non-tender Palpation: Negative for guarding or rebound tenderness present Back/Spine no CVA tenderness and no thoracic nor lumbar tenderness Extremity normal to inspection General Extremety ED: Negative for edema or tenderness General Extremity: Negative for edema Neuro oriented x3 and no sensory deficits noted Sensorium / Orientation: awake and alert Skin no rashes or lesions noted and no wounds MDM MDM MDM Narrative Medical decision making narrative: Interventions / MDM: Differential diagnosis: Cardiac dysrhythmia, UTI, weakness Diagnosis considered but do not suspect: N/A My EKG interpretation: EKG: Sinus rate of 95, no ST or T wave changes. Imaging independently reviewed and interpreted by myself: N/A External documents reviewed: N/A Test considered but not ordered:N/A ED course: Patient during exam was in A-fib with RVR heart rate in the 140s withabnormal rhythm. Towards the end of the examination patient converted to sinus rhythm on the monitor. This was noted from rhythm strips. Heart rate in the low 100s. Patient remained in normal sinus rhythm. He was started on 25 mg of metoprolol. Eliquis was started due to [id number] score of a 7. Work-up also noted UTI, exam urine frequency. Previous culture E. coli positive that was sensitive to his Keflex he was sent home with. Treated with IV Rocephin. Labs are stable electrolytes no he had a sodium 132. Slightly low TSH Free T4 is normal. Creatinine 1.4 slightly elevated from 1.2 earlier this month he was given 500 ccof fluid. Patient still felt slight weakness, discussed with patient and family members, they would like him in the hospital for further testing. He had a stroke this past September she was not admitted, he had no echocardiogram recently. Reasonable to bring him in for echocardiogram with his new onset A-fib. I discussed with hospitalist Dr. Mendosa for admission to PCU. Re-evaluation: stable Disposition discussed with patient/family/significant other: Patient and family Case discussed with consulting clinician: Hospitalist This note was generated with [employer] dictation software. It may contain incorrectwords, spelling, and punctuation that were not noted in checking the note beforesigning. Lab Data Attestation: I reviewed the patient's lab results. Labs: Laboratory Results - last 24 hr 01/24/23 01/24/23 13:30 14:05 WBC 6.3 RBC 3.99 L Hgb 12.6 L Hct 37.9 L MCV 95.0 H MCH 31.6 MCHC 33.2 RDW Std Deviation 47.0 H RDW Coeff of [place] 13.3 Plt Count 63 L MPV 9.1 Immature Gran % (Auto) 0.200 Neut % (Auto) 88.6 H Lymph % (Auto) 2.4 L [place] % (Auto) 8.5 Eos % (Auto) 0.0 Baso % (Auto) 0.3 Absolute Neuts (auto) 5.6 Absolute Lymphs (auto) 0.15 L Nucleated RBC % 0 Differential Comment COMMENT Platelet Estimate MOD DEC PT 15.5 H INR 1.2 APTT 30.3 Sodium 132 L Potassium 3.7 Chloride 99 Carbon Dioxide 25.0 Anion Gap 8 BUN 24 H Creatinine 1.40 H Estim Creat Clear Calc 44.89 Est GFR (MDRD) Af Amer 63 Est GFR (MDRD) Non-Af 52 L BUN/Creatinine Ratio 17.1 Glucose 258 H Calcium 9.5 TSH 0.33 L Free T4 1.23 Urine Color Yellow Urine Clarity Cloudy Urine pH 5.0 Ur Specific [place] 1.020 Urine Protein 100 H Urine Glucose (UA) 250 H Urine Ketones 15 H Urine Occult Blood 25 H Urine Nitrite Positive H Urine Bilirubin 1 H Urine Urobilinogen 1 H Ur Leukocyte Esterase 500 H Urine RBC 0-5 SEEN Urine WBC 25-50 SEEN Ur Squamous Epith Cells 0-5 SEEN Urine Bacteria 3+ Hyaline Casts 0-5 SEEN Urine Mucus 0 SEEN Radiography Diagnostic Testing: Clinical Impression(s) from Imaging Studies Chest X-Ray 01/24/23 13:50 IMPRESSION: No acute cardiopulmonary process identified. Electronically Signed: Giselle Rosa MD at 14:18 EDT Reading Location ID and State: [facility] / [place] Tel , Service support , Discharge Plan Triage Chief Complaint: Weakness ED Provider: Parvez Thornton Dx/Rx/DC Orders Clinical Impression: Atrial fibrillation, currently in sinus rhythm, Acute renal insufficiency, Weakness, Acute UTI Primary Care Provider: Harlan Ford Disposition Disposition: Acute Care Hospital [facility] What to do if you have Problems For any increased pain, shortness of breath, bleeding, nausea or vomiting, chestpain, or any unexpected problems, contact your Primary Care Provider. Call [facility] ([phone]) or report to the closest Emergency Room. Call 911 if necessary. 01/24/23 1547 <Electronically signed by Parvez Armas> Cosigner Signature (if applicable): CC: Dr. Harlan Ford DO ~ Signed [facility] Work Phone: 1(895) 779-283107-11-2023 Miscellaneous Notes* Telephone Encounter - Keri Kaur OCCA - 01/15/2023 10:19 AM EDT MONY 01/10/23 NOV 02/13/23 Please review and advise. Thank you. ROSALINDA Kennedy * Telephone Encounter - Yessi Dahl - 01/15/2023 9:43 AM EDT Patient has been identified by name and [...] and advise. Yessi Dahl documented in this encounterOhiohealth Doctors Hospital05-31-2023 Miscellaneous Notes* Telephone Encounter - Mandy Rodriguez - 12/05/2022 11:14 AM EDT Patient said this medication (simvastatin) was stopped when he was in [facility] in September. Wants a refill,but [facility] told him the doctor cancelled it. Please review and advise patient at [phone] if he is supposed to be taking it. He only has 4 pills left. * Telephone Encounter - Mandy Rodriguez - 12/05/2022 11:13 AM EDT Patient has been identified by name and date of : Yes Requested Prescriptions Pending Prescriptions Disp Refills simvastatin (ZOCOR) 20 mg tablet 90 tablet 1 Sig: Take 1 tablet by mouth once daily. MONY-11/13/22 Labs-11/09/22 NOV-02/13/23 med filled 05/10/22 RX INSTRUCTIONS: Patient requesting a call when RX is approved and sent to the pharmacy. Please call patient at: [phone] Mandy Rodriguez documented in this encounterOhiohealth Doctors Hospital05-17-2023 Miscellaneous Notes* Telephone Encounter - Romana Carson - 11/21/2022 11:05 AM EDT Please Call PT when signed. [phone]. LVM if needed. Romana RODRIGUEZ * Telephone Encounter - Mary Rosado LPN - 11/14/2022 8:53 AM EDT Patient calling he had forgotten to ask at his appt yesterday, he needs renewal handicap placard rx. Patient has 2 of them. Patient would like to picker tender when ready. Please advise documented in this encounterOhiohealth Doctors Hospital05-15-2023 History of Present illness Narrative* Ayaka Samaniego - 11/19/2022 4:06 PM EDT [employer] HE[employer] NAVIGATION OUTREACH Action/FYI 2nd call, [...] 19, 2022 4:06 PM documented in this encounterOhiohealth Doctors Hospital05-10-2023 History of Present illness Narrative* Harlan Ford DO - 11/14/2022 7:33 AM EDT Patient presents with: F/U 3 Month HPI: Lara Tapia is a 76 year old male who [...] medications. Feet and lower leg symptoms. Mr. Tapia has past history of diabetes. Since our last visit he denies excessive thirst or increased frequency of urination, chest pain or dyspnea , and low sugar/hypoglycemic reactions. Depression-no. Follows a diabetic diet most of the [...] was within the past 3 months Mr. Tapia reports history of hyperlipidemia. Current therapy includes simvastatin (Zocor) 20 mg. Denies side effects of muscle weakness or achiness. His most recent lipid panels are reviewed. Cholesterol, Total (mg/dL) Date Value 08/03/2022 186 05/22/2021 188 HDL Cholesterol (mg/dL) Date Value 08/03/2022 37 05/22/2021 40 LDL Cholesterol (mg/dL) Date Value 08/03/2022 106 05/22/2021 101 Triglyceride (mg/dL) Date Value 08/03/2022 215 05/22/2021 233 Mr. Tapia indicates a history of hypertension and states that he is feeling well and denies any symptoms referable to elevated blood pressure. Specifically denies headache, chest pain, palpitations,dyspnea, and peripheral edema. Patient denies any side [...] Test blood sugar(s) 1 times daily. Dx: OtherDM Code E11.42 Insulin: No. Patient uses One Touch Verio losartan (COZAAR) 50 mg tablet Take 1 tablet by mouth once daily. lamoTRIgine (LAMICTAL) 25 mg tablet Take 1 tablet by mouth once daily. Clobetasol Propionate (TEMOVATE) 0.05 % external solution Apply 1 application to affected area oncedaily as needed (scalp psoriasis). 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 Dx: Other DM Code E11.42 Insulin: No blood sugar diagnostic (BLOOD GLUCOSE TEST) test strip Test blood sugar(s) 1 times daily. Dx: OtherDM Code E11.42 Insulin: No Clobetasol Propionate 0.05 % external solution Apply to scalp psoriasis patches and plaques selectively qday to bid (once or twice a day) as needed and AVOID face, eyes, eyelids, and deep fold areas. Haoapsxffoo-Qcgreauic-Xrx C-Mn (GLUCOSAMINE CHONDROITIN MAXSTR) 500-400 mg ORAL [...] polyneuropathy, without long-term current use of insulin ([facility]) - ICD9: 250.60, 357.2, ICD10: E11.42 (primary [...] RND UR 2. PAD (peripheral artery disease) ([facility]) - ICD9: 443.9, ICD10: I73.9 F/u with [employer] for toenail trimming, f/u with Dr. Veliz [...] ICD9: 287.5, ICD10: D69.6 Stable, has seen surgical scheduler in the last 3 years Harlan Ford DO To ER if develops chest pain, shortness of breath, or severe worsening of symptoms. Discussed risks, benefits, alternatives, and potential side effects of medications. Patient expressed understanding and agreed with the plan. Harlan Ford DO [address] [place] [address] documented in this encounterOhiohealth Doctors Hospital05-09-2023 Instructions* Patient Instructions* Harlan Ford DO - 11/13/2022 4:[address] Cristina Maxwell [phone] [employer] - call their office for appt to keep your toenails trimmed documented in this encounterOhiohealth Doctors Hospital05-04-2023 Miscellaneous Notes* Telephone Encounter - Wilda Cheek - 11/08/2022 10:03 AM EDT Pt informed, verbalized understanding. Wilda Cheek * Telephone Encounter - Haylee Koch PA-C - 11/07/2022 7:17 PM EDT Please let patient know lab orders place. Can have completed prior to office visit. Haylee Koch PA-C 11/07/2022 * Telephone Encounter - Aydee Vang - 11/07/2022 12:42 PM EDT Pt is wondering if he needs to get bloodwork done before appt on 11/13/2022 documented in this encounterOhiohealth Doctors Hospital04-05-2023 Instructions* Patient Instructions* Radha Guzman - 10/10/2022 10:36 AM EDT Check with the surgeon on if you are to continue plavix or not and if the simvastatin dose youre onis sufficient Have the office send us notes following your appointment documented in this encounterOhiohealth Doctors Hospital04-05-2023 History of Present illness Narrative* Jose Osborne APRN.JIGNA - 10/10/2022 10:10 AM EDT Chief Complaint Patient presents with: Hospital Follow Up: Stroke, requesting note to return to work HPI Lara Tapia is a 76 year old male who presents here today for Above Complaints. Today: Patient reports to office today for follow up from stroke related to right carotid blockage. He hadsurgical intervention, surgical incision healing well and he [...] not as fast as I used to be. He'd like to return to work, he has been driving. 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 He said it isn't physically exerting. Past [...] Test blood sugar(s) 1 times daily. Dx: OtherDM Code E11.42 Insulin: No. Patient uses One Touch Verio losartan (COZAAR) 50 mg tablet Take 1 tablet by mouth once daily. lamoTRIgine (LAMICTAL) 25 mg tablet Take 1 tablet by mouth once daily. Clobetasol Propionate (TEMOVATE) 0.05 % external solution Apply 1 application to affected area oncedaily as needed (scalp psoriasis). 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 Dx: Other DM Code E11.42 Insulin: No blood sugar diagnostic (BLOOD GLUCOSE TEST) test strip Test blood sugar(s) 1 times daily. Dx: OtherDM Code E11.42 Insulin: No Clobetasol Propionate 0.05 % external solution Apply to scalp psoriasis patches and plaques selectively qday to bid (once or twice a day) as needed and AVOID face, eyes, eyelids, and deep fold areas. Pnsvkeerucy-Divudrker-Yvv C-Mn (GLUCOSAMINE CHONDROITIN MAXSTR) 500-400 mg ORAL [...] suspicious rashes or lesions, Incisions well healed toright neck Neck: Supple, no adenopathy; thyroid symmetric, [...] neuro deficits, cleared to return to work. Jose Osborne APRN.CNP documented in this encounterOhiohealth Doctors Hospital03-16-[address] López [facility] September 20, 2022 10:00am Note Date/Time September 20, 2022 10: 00am [facility] Medical Records Department [address] [place] [address] Progress Note - Surgery 09/20/22 0958 MR#: [id number] Acct: [id number] Name: LARA TAPIA Rep #:[id number] : 1945 76 From: Sony López MD PCP: Dr. Harlan Fodr, DO Status:AD M IN Location: ICU ICU08-1 Subjective Subjective Doing well overnight. Mild hypotension, responded to IVF. Yoshi clears. Voiding but minimal. No new numbness/weakness/speech difficulty, right eye vision stable. Denies DOWELL. Objective Data Objective Data A&O x 3, NAD RRR Strength 5/5 bilateral, CN intact Inc C/D/I, PATTY sero-sang Vital Signs: Vital Signs Temp Pulse Resp BP Pulse Ox O2 Del Method O2 Flow Rate 98.3 F 58 L 16 122/57 H 94 Nasal Cannula 1 09/20/22 02:46 09/20/22 07:00 09/20/22 07:00 09/20/22 07:00 09/20/22 07:42 09/20/22 07:42 09/20/22 07:42 Oxygen Flow Rate (L/min) 1 Oxygen Delivery Method Nasal Cannula Weight: 209 lb 7.026 oz Body Mass Index (BMI) 30.9 Intake & Output: Intake and Output for Last 24 Hours 09/18/22 09/19/22 09/20/22 23:59 23:59 23:59 Intake Total 160 / 160 1833.33 / 1833.33 Output Total 575 / 575 Balance -415 / -415 1833.33 / 1833.33 Lab / Micro Data Result Diagrams: 09/20/22 03:15 09/20/22 03:15 Labs: Laboratory Results - last 24 hr 09/19/22 10:49: POC Glucose 106 09/19/22 13:00: Activated Clotting Time 143 H 09/19/22 13:49: Activated Clotting Time 335 H 09/19/22 14:38: Activated Clotting Time 287 H 09/19/22 16:35: POC Glucose 156 H 09/19/22 22:06: POC Glucose 322 H 09/20/22 03:15: WBC 3.5 L, RBC 3.26 L, Hgb 10.5 L, Hct 30.9 L, MCV 94.8 H, MCH 32.2 H, MCHC 34.0, RDW Std Deviation 44.1 H, RDW Coeff of [place] 12.8, Plt Count 68L, MPV 8.4, Immature Gran % (Auto) 0.300, Neut % (Auto) 86.7 H, Lymph % (Auto) 7.5 L, [place] % (Auto) 5.2, Eos % (Auto) 0.0, Baso % (Auto) 0.3, Absolute Neuts (auto) 3.0, Absolute Lymphs (auto) 0.26 L, Nucleated RBC % 0, Differential Comment SCANNED, Diff Path Review November foll, Platelet Estimate MOD 09/20/22 03:15: Sodium 135 L, Potassium 4.2, Chloride 100, Carbon Dioxide 25.0, Anion Gap 10, BUN 24 H, Creatinine 1.27, Estim Creat Clear Calc 50.26, Est GFR (MDRD) Af Amer 71, Est GFR (MDRD) Non-Af 59 L, BUN/Creatinine Ratio 18.9, Glucose 220 H, Calcium 8.9, Phosphorus 3.2, Magnesium 1.5 L Assessment & Plan Assessment/Plan (1) Carotid stenosis, right: PLAN: -POD # 1 right CEA -resume home meds, advance diet, HLIV -DC art line -progressive ambulation -hope to DC later today 09/20/22 1000 <Electronically signed by Sony López MD> Cosigner Signature (if applicable): CC: ~ Signed [facility] Work Phone: 1(325) 160-528103-16-2023 Procedure [facility] 09-19-2022 History and physical note Author Dr. López [facility] September 19, 2022 11:49am Note Date/Time September 19, 2022 11: 49am [facility] Medical Records Department [address] [place] [address] History & Physical Exam 09/19/22 1146 MR#: [id number] Acct: [id number] Name: LARA TAPIA Rep #:[id number] : 1945 76 From: Sony López MD PCP: Dr. Harlan Ford, DO Status:AD M IN Location: ICU ICU08-1 History and Physical Allergies No Known Allergies Allergy (Verified 09/10/22 11:01) Medications aspirin 81 mg tablet 81 mg PO DAILY 09/06/22 [History Confirmed 09/10/22] atorvastatin 40 mg tablet 40 mg PO DAILY #30 tabs 09/06/22 [Rx Confirmed 09/10/22] clobetasol 0.05 % scalp solution 1 applic topical DAILY 09/06/22 [History Confirmed 09/10/22] clopidogrel 75 mg tablet 75 mg PO DAILY #30 tabs 09/06/22 [Rx Confirmed 09/10/22] cyanocobalamin (vitamin B-12) 1,000 mcg tablet (Vitamin B-12) 1,000 mcg PO DAILY09/06/22 [History Confirmed 09/10/22] gabapentin 300 mg capsule 900 mg PO TID 09/06/22 [History Confirmed 09/10/22] glimepiride 4 mg tablet 4 mg PO BID 09/06/22 [History Confirmed 09/10/22] hjxcgznrpgn-gbghezegj-fys C-Mn 500 mg-400 mg capsule (Glucosamine Chondroitin Maximum Strength) cap PO DAILY 09/06/22 [History Confirmed 09/10/22] hydrochlorothiazide 12.5 mg capsule 12.5 mg PO DAILY 09/06/22 [History Confirmed 09/10/22] ketoconazole 2 % shampoo 1 applic topical Q14D 09/06/22 [History Confirmed 09/10/22] lamotrigine 25 mg tablet 25 mg PO QODAY 09/06/22 [History Confirmed 09/10/22] losartan 50 mg tablet 50 mg PO DAILY 09/06/22 [History Confirmed 09/10/22] metformin 750 mg tablet,extended release 24 hr 750 mg PO BID 09/06/22 [History Confirmed 09/10/22] metronidazole 0.75 % topical cream 1 applic topical BID 09/06/22 [History Confirmed 09/10/22] potassium 99 mg tablet mg 09/06/22 [History Confirmed 09/10/22] magnesium oxide 500 mg capsule 500 mg PO DAILY 09/10/22 [History Confirmed 09/10/22] PFSH Medical History? Cholecystectomy planned Diabetes mellitus Hypercholesteremia Hypertension Surgical History? Knee joint replacement status Social History? Smoking Status:? Never smoker HPI HPI HPI: LARA TAPIA, is a 76 M who presents to the office today for evaluation of rightcarotid stenosis found after abrupt vision loss in right eye. 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 Noprior similar events, but was seeing floaters in right eye prior to vision loss.CTA revealed 55% stenosis right ICA with soft plaque, large caliber vessels. Wason ASA and simvastatin. Has started plavix in addition. Denies numbness/weakness/speech difficulty. No prior cardiac history, no CP/SOB with activity. No prior neck surgery/XRT/limitation in ROM. ROS General General: Yes fatigue and weakness; No weight change, appetite, colon cancer or breast cancer HEENT HEENT: Yes eye injury; No difficulty swallowing, eye surgery, swollen glands or hoarseness Endo Endocrine: Yes diabetes mellitus; No thyroid disease, thyroid cancer, Hair loss, heat intolerance or cold intolerance Skin Skin: No rash or changing moles Musc Musculoskeletal: No back problems, arthritis, rheumatoid arthritis, gout or joint pain Cardio Cardiovascular: Yes high blood pressure; No murmur, pacemaker, heart disease, atrial fibrillation, heart attack, heart stent, palpitations, shortness of breat with exertion or chest pain Psych Psychiatric: No depression, anxiety or hearing voices Resp Respiratory: No shortness of breath, No sleep apnea, No cough, No COPD, No asthma, No emphysema and No wheezing Gastro Gastrointestinal: No abdominal pain, No nausea or vomiting, No diarrhea, No constipation, No blood in stool, No acid reflux, No hemorrhoids, No ulcers, No gallbladder problem and No black,tarry stools Jose Hematologic: Yes blood thinners, No blood disorders, No bleeding, No anemia and No blood clots Neuro Neurologic: No system reviewed and no additional complaints, except as documented, No as per HPI, No abnormal gait, No abnormal hearing, No abnormal movements, No abnormal speech, No behavioral changes, No burning sensations, No confusion, No convulsions, No disequilibrium, No dizziness, No localized weakness, No frequent falls, No headache(s), No lack of coordination, No loss ofvision, No memory loss, Yes numbness, No other visual disturbances, No radicularpain, No restless legs, No sensory deficit, No syncope, Yes tingling, No tremor(s), Yes weakness and No other Exam Const General: cooperative, healthy appearing, comfortable, no acute distress and welldeveloped Nutritional Appearance: well nourished Orientation: alert, awake and oriented x3 HENMT Head: normocephalic and atraumatic Ears: hearing grossly normal bilaterally Nose: external nose normal Eyes General: appearance normal, both eyes and all related structures EOM: EOM intact bilaterally Neck Neck: normal visual inspection, full ROM, no lymphadenopathy and trachea midline Thyroid: thyroid normal Lymphatic: no lymphadenopathy noted Resp Effort & Inspection: normal respiratory effort, able to speak in complete sentences, symmetric chest movement, no audible wheezes, not labored, no stridorand no use of accessory muscles Auscultation: clear to auscultation bilaterally Cardio Rate: regular rate Rhythm: regular rhythm Heart Sounds: no murmurs Bruits: no carotid bruits Pulses: brachial pulses present and radial pulses present Skin General: no rashes or lesions noted and no erythema Wounds: no wounds Neuro Cranial Nerves: abnormalities within CN's II-XII (right eye vision loss, central) and EOM intact bilaterally Speech: speech normal Gait: normal gait Motor: strength 5/5 throughout Sensory Exam: no sensory deficits noted Psych Appearance: grossly normal and well kempt Mental Status: mental status grossly normal Mood: congruent mood Speech and Movement: speech and movement normal Thought Content: normal Judgment: judgment good Coding Level of Care Code Off vis,new,level 4 Diagnoses Carotid stenosis, right? I65.21 Assessment and Plan Assessment and Plan (1) Carotid stenosis, right: ?Status:?Acute ?Comment: CTA images reviewed ?Plan: -right CEA 09/19/22 1149 <Electronically signed by Sony López MD> Cosigner Signature (if applicable): CC: Dr. Sony López MD; Dr. Harlan Ford, DO~ Signed [facility] Work Phone: 1(860) 308-811003-09-2023 Miscellaneous Notes* Telephone Encounter - Vianey Dixon Jazmín CALIX - 09/13/2022 3:21 PM EST Natalya with [facility] called and identified pt with name and date of . She requested a copy of pt'slast HgbA1C. faxed to [phone]. Done. Vianey Noyola LPN documented in this encounterOhiohealth Doctors Hospital03-02-[address] Kirkpatrick [facility] September 06, 2022 4:06pm Note Date/Time September 06, 2022 1:03 pm [facility] Medical Records Department [address] [place] [address] Emergency Department Summary 09/06/22 MR#: [id number] Acct: [id number] Name: LARA TAPIA Rep #:[id number] : 1945 76 From: Jw Kirkpatrick MD PCP: Dr. Harlan Ford, Status:RE G ER Location: ED HPI History of Present Illness Chief Complaint: Stroke Alert Informant: patient Onset/Context/Timing Onset: Today Context: - (Awoke with symptoms) Timing: Continuous Quality and Location: Positive for - (Blurry vision throughout entire right eye visual awan) Onset: Awoke with symptoms 2 hours ago Current Severity: Moderate Maximum Severity: Moderate Narrative Narrative: Patient went to bed around 2245 last night without any issues and woke blurry vision right eye today and walked into the eye doctor as a walk-in. Dr. Moralesaw him and diagnosed him with a central retinal artery occlusion, and sent him emergently to the emergency department, he walked in, I saw him in triage as nursing called a stroke alert. Patient takes a baby aspirin every day and no other medications. He has no medical problems. He has no other symptoms right now. [facility] Medical History Cholecystectomy planned Diabetes mellitus Hypercholesteremia Hypertension Medical History no medical history Home Medications aspirin 81 mg tablet 81 mg PO DAILY 09/06/22 [History Last Taken Unknown] atorvastatin 40 mg tablet 40 mg PO DAILY #30 tabs 09/06/22 [Rx Last Taken Unknown] clobetasol 0.05 % scalp solution 1 applic topical DAILY 09/06/22 [History Last Taken Unknown] clopidogrel 75 mg tablet 75 mg PO DAILY #30 tabs 09/06/22 [Rx Last Taken Unknown] cyanocobalamin (vitamin B-12) 1,000 mcg tablet (Vitamin B-12) 1,000 mcg PO DAILY09/06/22 [History Last Taken Unknown] gabapentin 300 mg capsule 900 mg PO TID 09/06/22 [History Last Taken Unknown] glimepiride 4 mg tablet 4 mg PO BID 09/06/22 [History Last Taken Unknown] nmuisqmkcid-vyrxwttlb-hsb C-Mn 500 mg-400 mg capsule (Glucosamine Chondroitin Maximum Strength) cap PO DAILY 09/06/22 [History Last Taken Unknown] hydrochlorothiazide 12.5 mg capsule 12.5 mg PO DAILY 09/06/22 [History Last Taken Unknown] ketoconazole 2 % shampoo 1 applic topical Q14D 09/06/22 [History Last Taken Unknown] lamotrigine 25 mg tablet 25 mg PO QODAY 09/06/22 [History Last Taken Unknown] losartan 50 mg tablet 50 mg PO DAILY 09/06/22 [History Last Taken Unknown] magnesium 500 mg tablet 15 mg PO DAILY 09/06/22 [History Last Taken Unknown] metformin 750 mg tablet,extended release 24 hr 750 mg PO BID 09/06/22 [History Last Taken Unknown] metronidazole 0.75 % topical cream 1 applic topical BID 09/06/22 [History Last Taken Unknown] potassium 99 mg tablet mg 09/06/22 [History Last Taken Unknown] Allergy/AdvReac Type Severity Reaction Status Date / Time No Known Allergies Allergy Verified 09/06/22 13:23 Surgical History Knee joint replacement status Surgical History no surgical history Social History Smoking Status: Never smoker ROS ROS ED Constitutional Constitutional ED: Denies chills or fever(s) Eyes Eyes: Reports blurry vision right and change in vision; Denies diplopia ENT ENT ED: Denies rhinorrhea or sore throat Cardiovascular Cardiovascular: Denies chest pain or palpitations Respiratory/Chest Respiratory/Chest: Denies cough or dyspnea Gastrointestinal Gastrointestinal: Denies abdominal pain, diarrhea, nausea or vomiting Genitourinary Genitourinary ED: Denies dysuria or hematuria Musculoskeletal Musculoskeletal: Denies back pain or neck pain Integumentary Denies abscess or rash Neurologic Neurologic: Denies headache(s), paresthesias or weakness Psychiatric Psychiatric: Denies anxiety or suicidal thoughts EXAM Physical Exam Const Vital Signs: 09/06/22 13:12 09/06/22 13:13 09/06/22 13:14 Temperature 97.2 F L Temperature Source Temporal Pulse Rate 80 74 Respiratory Rate 18 18 Blood Pressure 165/76 H 151/74 H Blood Pressure Mean 105 99 Pulse Ox 96 94 Oxygen Delivery Method Room Air Room Air Room Air 09/06/22 13:17 09/06/22 13:30 09/06/22 14:00 Temperature Temperature Source Pulse Rate 78 71 67 Respiratory Rate 13 17 14 Blood Pressure 159/77 H 142/72 H 138/66 H Blood Pressure Mean 104 95 90 Pulse Ox 93 96 94 Oxygen Delivery Method Room Air Room Air 09/06/22 14:00 Temperature Temperature Source Pulse Rate 67 Respiratory Rate 14 Blood Pressure 138/66 H Blood Pressure Mean 90 Pulse Ox 94 Oxygen Delivery Method Room Air Positive well nourished and well developed General Appearance ED: well developed and NAD HEENT Reports moist mucous membranes normocephalic and atraumatic Eyes PERRL and EOMs intact bilaterally Eyes Narrative: Visual awan intact. The blurry throughout right eye visual awan, normal throughout left according to patient. Neck full ROM and supple Resp normal respiratory effort and clear to auscultation bilaterally Cardio regular rate, regular rhythm and no murmurs GI non-tender and non-distended Auscultation: normoactive bowel sounds Palpation: soft Back/Spine no CVA tenderness General Back: other FROM Extremity normal to inspection General Extremety ED: Negative for edema, pulses abnormal or tenderness General Extremity: Negative for edema or pulses abnormal Neuro oriented x3, CN's II-XII intact bilaterally and no sensory deficits noted Sensorium / Orientation: awake and alert Speech: speech normal Gait (Neuro): normal gait Motor Exam: strength 5/5 throughout Psych mental status grossly normal Skin no rashes or lesions noted and no wounds NIHSS NIHSS Initial: 1a Level of Consciousness: 0 1b LOC Questions (Score 2 if aphasic/stupor): 0 1c LOC Commands (Only score 1st attempt): 0 2 Best Gaze (If aphasic, use reflexive mvmts.): 0 3 Visual: 0 4 Facial Palsy: 0 5 Motor Arm Right (UN = amputation/fusion): 0 5 Motor Arm Left: 0 6 Motor Leg Right: 0 6 Motor Leg Left: 0 7 Limb ataxia (Only + if out of proportion): 0 8 Sensory (Aphasia/stupor=0 or 1, coma=2): 0 9 Best Language: 0 10 Dysarthria (mute, coma=2, intubated=UN): 0 11 Extinction and Inattention (only scored if +): 0 Total Score: 0 MDM MDM MDM Narrative Medical decision making narrative: Stroke alert was called on this patient, he was taken directly to CT and had a scan, then an IV was placed and CT angiography was performed. I discussed with the radiologist concerning the negative CT and the negative CTA but it shows bilateral carotid stenosis. Patient remained stable his blood pressure came down without treatment, now 138/66. Discussed with stroke neurology, since he has no other deficits other than the eye/vision symptoms, they do not have further recommendations do not think the patient needs to be admitted for MRI orother testing right now, but defer treatment of the eye to vascular/ophthalmology. Discussed with Dr. López with vascular, he recommends loading the patient with clopidogrel, prescribing it for him, and have him follow-up as an outpatient, and making sure the patient is on statin therapy. When I went to discuss all of this with the patient, initially he had said that he was just on a baby aspirin but it became known that the patient is on a whole list of medications including medication for his blood pressure. We loaded him with clopidogrel while his went home to get the list, which we then had and were able to perform med reconciliation. It appears that high intensity statin therapy is desired, so I am changing his simvastatin 20 mg to atorvastatin 40 mg daily. Lab Data Attestation: I reviewed the patient's lab results. Labs: Laboratory Results - last 24 hr 09/06/22 09/06/22 09/06/22 13:03 13:03 13:03 WBC 3.3 L RBC 4.18 L Hgb 13.6 Hct 39.8 L MCV 95.2 H MCH 32.5 H MCHC 34.2 RDW Std Deviation 44.7 H RDW Coeff of Forest 12.7 Plt Count 79 L MPV 8.9 Immature Gran % (Auto) 0.300 Neut % (Auto) 75.0 H Lymph % (Auto) 12.2 L [place] % (Auto) 10.7 H Eos % (Auto) 1.2 Baso % (Auto) 0.6 Absolute Neuts (auto) 2.5 Absolute Lymphs (auto) 0.40 L Nucleated RBC % 0 Differential Comment SCANNED Diff Path Review May foll Platelet Estimate MOD DEC PT 14.7 INR 1.2 APTT 29.6 Sodium 137 Potassium 4.1 Chloride 102 Carbon Dioxide 27.0 Anion Gap 8 BUN 25 H Creatinine 1.08 Estim Creat Clear Calc 55.25 Est GFR (MDRD) Af Amer 86 Est GFR (MDRD) Non-Af 71 BUN/Creatinine Ratio 23.1 H Glucose 217 H Calcium 10.1 Troponin I High Sens 6 POC Glucose 09/06/22 13:12 WBC RBC Hgb Hct MCV MCH MCHC RDW Std Deviation RDW Coeff of Forest Plt Count MPV Immature Gran % (Auto) Neut % (Auto) Lymph % (Auto) [place] % (Auto) Eos % (Auto) Baso % (Auto) Absolute Neuts (auto) Absolute Lymphs (auto) Nucleated RBC % Differential Comment Diff Path Review Platelet Estimate PT INR APTT Sodium Potassium Chloride Carbon Dioxide Anion Gap BUN Creatinine Estim Creat Clear Calc Est GFR (MDRD) Af Amer Est GFR (MDRD) Non-Af BUN/Creatinine Ratio Glucose Calcium Troponin I High Sens POC Glucose 199 H Radiography Diagnostic Testing: Clinical Impression(s) from Imaging Studies Head/Neck CTA 09/06/22 12:57 IMPRESSION: 50-69% stenosis at the origin of the right and left internal carotid arteries due to calcific plaque formation. N.B. : The above Results were Read Back by Demarco Sparrow MD to Jw Kirkpatrick and understanding confirmed on 09/06/2022 13:26:58 (ET). Electronically Signed: Demarco Sparrow MD at 13:28 EST , ADDENDUM: 09/06/22 1335 IMPRESSION: 50-69% stenosis at the origin of the right and left internal carotid arteries due to calcific plaque formation. N.B. : The above Results were Read Back by Demarco Sparrow MD to Jw Kirkpatrick and understanding confirmed on 09/06/2022 13:26:58 (ET). Electronically Signed: Demarco Sparrow MD at 13:28 EST , Brain CT 09/06/22 13:00 IMPRESSION: Chronic involutional changes of the brain. N.B. : The above Results were Read Back by Demarco Sparrow MD to Jw Kirkpatrick and understanding confirmed on 09/06/2022 13:16:04 (ET). Electronically Signed: Demarco Sparrow MD at 13:17 EST , ADDENDUM: 09/06/22 1324 IMPRESSION: Chronic involutional changes of the brain. N.B. : The above Results were Read Back by Demarco Sparrow MD to Jw Kirkpatrick and understanding confirmed on 09/06/2022 13:16:04 (ET). Electronically Signed: Demarco Sparrow MD at 13:17 EST , Chest X-Ray 09/06/22 13:50 IMPRESSION: No acute abnormality is seen. Electronically Signed: Demarco Sparrow MD at 14:03 EST , Rhythm Strip Rhythm Strip: Sinus Rhythm Rate: 75 Ectopy: None EKG Initial EKG: Attestation: I personally reviewed and interpreted this EKG as follows: Interpretation: Sinus Rhythm and No Acute Injury Pattern Management Discussion w/another healthcare provider: Veterinary Surgeon (stroke neurologist, vascular surgery Dr. López) and Radiologist Stroke Documentation Questions Stroke Team Activated: Yes Was Patient considered for Endovascular Intervention?: No-CTA negative, determined not to be an endovascular candidate IV Thrombolytic Administered: No (timing) Critical Care Time Critical Care Time: Yes Critical care time (excluding procedures): 30-74 minutes (40 min), Including time spent:, Discussing w/Patient &/or Family/Roustabout Crew Leader, Discussing w/Consultants and Performing Direct Patient Care at Bedside Discharge Plan Triage Chief Complaint: Stroke Alert ED Provider: Jw Kirkpatrick Dx/Rx/DC Orders Clinical Impression: Central retinal artery occlusion of right eye, 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% Instructions: Central Retinal Artery Occlusion, Carotid Artery Disease Prescriptions: New clopidogrel 75 mg tablet 75 mg PO DAILY Qty: 30 0RF atorvastatin 40 mg tablet 40 mg PO DAILY Qty: 30 0RF Continued gabapentin 300 mg Capsule 900 mg PO TID aspirin 81 mg Tablet 81 mg PO DAILY clobetasol 0.05 % Solution 1 applic TOPICAL DAILY losartan 50 mg Tablet 50 mg PO DAILY ketoconazole 2 % Shampoo 1 applic TOPICAL Q14D cyanocobalamin (vitamin B-12) [Vitamin B-12] 1,000 mcg Tablet 1,000 mcg PO DAILY lamotrigine 25 mg Tablet 25 mg PO QODAY glimepiride 4 mg Tablet 4 mg PO BID metronidazole 0.75 % Cream 1 applic TOPICAL BID hydrochlorothiazide 12.5 mg Capsule 12.5 mg PO DAILY ymptdsvrzyy-nxssoujlx-oco C-Mn [Glucosamine Chondroitin MaxStr] 500-400 mg Capsule PO DAILY metformin 750 mg Tablet Extended Release 24 Hr 750 mg PO BID magnesium 500 mg Tablet 15 mg PO DAILY potassium 99 mg Tablet Discontinued meloxicam 7.5 mg Tablet 7.5 mg PO DAILY simvastatin 20 mg Tablet 20 mg PO DAILY Primary Care Provider: Harlan Ford Referrals: Sony López MD [Med Staff - Active Staff] - As soon as possible (Call Saturday for appointment if you do not hear from the office before then) Gilson Mario DO [Med Staff - Active Staff] - Disposition Disposition: Home, Self Care What to do if you have Problems For any increased pain, shortness of breath, bleeding, nausea or vomiting, chestpain, or any unexpected problems, contact your Primary Care Provider. Call [facility] ([phone]) or report to the closest Emergency Room. Call 911 if necessary. 09/06/22 1606 <Electronically signed by Jw Kirkpatrick MD> Cosigner Signature (if applicable): CC: Dr. Sony López MD; Dr. Harlan Ford DO; Dr. Porfirio Rees MD ~ Signed [facility] Work Phone: [phone] 168-905403-01-2023 History of Present illness Narrative* Roshan Ray MD - 09/05/2022 2:31 PM EST Images from the original note were not included. Heart , Vascular and Thoracic [place] DEPARTMENT OF VASCULAR SURGERY VASCULAR SURGERY INITIAL CONSULT/ H+P SERVICE DATE: 09/05/2022 SERVICE TIME: 2:31 PM PRIMARY CARE PHYSICIAN: Harlan Ford DO REFERRING PROVIDER: Harlan Ford [address] [facility] [address] Consult requested for an opinion regarding the evaluation and treatment of the above. My final impression and recommendations will be communicated back to the requesting physician by way of the shared medical record or letter via US mail. CHIEF COMPLAINT/HISTORY OF PRESENT ILLNESS: Chief Complaint: Peripheral artery disease History of Present Illness: Lara Tapia is a 76 year old male Patient [...] tablet by mouth twice daily with meals. 180tablet 1 simvastatin (ZOCOR) 20 mg tablet Take 1 tablet by mouth once daily. 90 tablet 1 aspirin 81 mg chewable tablet Take 1 tablet by mouth once daily. 30 tablet 5 blood sugar diagnostic (BLOOD GLUCOSE TEST) test strip Test blood sugar(s) 1 times daily. Dx: OtherDM Code E11.42 Insulin: No. Patient uses One Touch Verio 50 Strip 11 losartan (COZAAR) 50 mg tablet Take 1 tablet by mouth once daily. 90 tablet 3 lamoTRIgine (LAMICTAL) 25 mg tablet Take 1 tablet by mouth once daily. 90 tablet 3 Clobetasol Propionate (TEMOVATE) 0.05 % external solution Apply 1 application to affected area oncedaily as needed (scalp psoriasis). 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 Dx: Other DM Code E11.42 Insulin: No 100 Each 11 blood sugar diagnostic (BLOOD GLUCOSE TEST) test strip Test blood sugar(s) 1 times daily. Dx: OtherDM Code E11.42 Insulin: No 50 Strip 11 Clobetasol Propionate 0.05 % external solution Apply to scalp psoriasis patches and plaques selectively qday to bid (once or twice a day) as needed and AVOID face, eyes, eyelids, and deep fold areas.60 mL 3 Kaphukhtwse-Xhnigtsht-Bbe C-Mn (GLUCOSAMINE CHONDROITIN MAXSTR) 500-400 mg ORAL [...] the plan as outlined. documented in this encounterOhiohealth [facility] Hospital02-16-2023 Miscellaneous Notes* Telephone Encounter - eLlia Miller - 08/23/2022 9:02 AM EST Spoke with patient in detail about results, referral and exercise routine. Patient wrote everythingdown and verbalized understanding. He had no questions at this time. Sending to scheduled for vascular referral. Lelia Miller * Telephone Encounter - Harlan Ford DO - 08/22/2022 8:49 PM EST Please inform patient that his BRANDT/ PVR show evidence of peripheral artery disease changes occurring. I Would like him to see vascular specialist to see if any intervention is needed. Otherwise I need him to work on more routine exercise with walking or riding recumbant bike becausethis helps PAD Harlan Ford DO * Telephone Encounter - Suzie Carlisle RN - 08/22/2022 1:58 PM EST Patient calling for results of PVR testing done on 08/15/22. Suzie Carlisle RN documented in this encounterOhiohealth Doctors Hospital02-07-2023 Miscellaneous Notes* Telephone Encounter - Mandy Monroy LPN - 08/14/2022 8:52 AM EST Pt. informed. 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 Recommend increasing water and sour drink in diet such as lemonade to help pass this small stone Harlan Ford DO * Telephone Encounter - Jose Osborne APRN.CNP - 08/13/2022 5:[address] of his neck looks good, normal, no masses of concern. Jose Osborne APRN.JIGNA * Telephone Encounter - Josie Licona RN - 08/13/2022 10:01 AM EST Pt called in asking for provider to review CT results and call him back. * Telephone Encounter - Huma Cruz RN - 08/10/2022 1:15 PM EST Patient calls and is asking about results from CT scan of neck. Please review and advise, Huma Cruz RN documented in this encounterOhiohealth Doctors Hospital02-01-2023 History of Present illness Narrative* Harlan Ford DO - 08/08/2022 2:39 PM EST Patient presents with: 6 Month Exam HPI: Lara Tapia is a 76 year old male who presents to the office today for review of health conditions. Concerns today: Glucose levels are slightly elevated in the 130s. Admits he has been eating more bananas, also eats berries. Skin lesions, wanting to have skin checked due to concerns of some rough spots he has felt. Hx ofactinic keratoses and skin cancer in the past. [...] feeling b/l calves comes and goes. Mr. Tapia has past history of diabetes. Since our last visit he denies excessive thirst or increased frequency of urination, chest pain or dyspnea , new or unusual visual symptoms, and low sugar/hypoglycemic reactions. Depression- no. Follows a diabetic diet some of the time- has been eating more f ruits and carbohydrates recently . He is compliant [...] was within the past 12 months Mr. Tapia reports history of hyperlipidemia. Current therapy includes simvastatin (Zocor) 20 mg. Denies side effects of muscle weakness or achiness. His most recent lipid panels are reviewed. Cholesterol, Total (mg/dL) Date Value 08/03/2022 186 05/22/2021 188 HDL Cholesterol (mg/dL) Date Value 08/03/2022 37 05/22/2021 40 LDL Cholesterol (mg/dL) Date Value 08/03/2022 106 05/22/2021 101 Triglyceride (mg/dL) Date Value 08/03/2022 215 05/22/2021 233 Mr. Tapia indicates a history of hypertension and states that he is feeling well and denies any symptoms referable to elevated blood pressure. Specifically denies headache, chest pain, palpitations,dyspnea, and peripheral edema. Patient denies any side [...] Test blood sugar(s) 1 times daily. Dx: OtherDM Code E11.42 Insulin: No. Patient uses One Touch Verio losartan (COZAAR) 50 mg tablet Take 1 tablet by mouth once daily. lamoTRIgine (LAMICTAL) 25 mg tablet Take 1 tablet by mouth once daily. Clobetasol Propionate (TEMOVATE) 0.05 % external solution Apply 1 application to affected area oncedaily as needed (scalp psoriasis). 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 Dx: Other DM Code E11.42 Insulin: No blood sugar diagnostic (BLOOD GLUCOSE TEST) test strip Test blood sugar(s) 1 times daily. Dx: OtherDM Code E11.42 Insulin: No Clobetasol Propionate 0.05 % external solution Apply to scalp psoriasis patches and plaques selectively qday to bid (once or twice a day) as needed and AVOID face, eyes, eyelids, and deep fold areas. Fnlizqkfegb-Fliizaoxw-Whs C-Mn (GLUCOSAMINE CHONDROITIN MAXSTR) 500-400 mg ORAL [...] area without pain at about 1 inch sizewithout any surrounding erythema or ulceration of skin, [...] of ear, actinic keratosis x 1 on lefthelix of ear, actinic keratosis x 1 on left buddhism, actinic keratosis x 1 on right superior [...] loss - Discussed diabetic education issues of penitentiary diabetic complications, hyperglycemic symptoms, diet, medications- side [...] ICD9: 357.89, ICD10: G62.89 Chronic, stable Harlan Ford DO To ER if develops chest pain, shortness of breath, or severe worsening of symptoms. Discussed risks, benefits, alternatives, and potential side effects of medications. Patient expressed understanding and agreed with the plan. Harlan Ford DO [address] [place] [address] documented in this encounterOhiohealth Doctors Hospital08-02-2022 Miscellaneous Notes* Telephone Encounter - Mandy Monroy LPN - 02/06/2022 9:59 AM EDT Pt's informed. Mandy Monroy LPN * Telephone Encounter - Jose Osborne APRN.CNP - 02/05/2022 5:56 PM EDT Please let Lara know that his magnesium levels are low. I'd like him to start taking a daily magnesium supplement of 500-600mg. Jose Osborne APRN.CNP documented in this encounterOhiohealth Doctors Hospital07-27-2022 Instructions* Patient Instructions* Jose Osborne APRN.CNP - 01/31/2022 2:18 PM EDT Make sure you're getting plenty of water. Calf stretches. If this doesn't improve, we can think about physical therapy. You have labs ordered to have completed prior to your appointment in 6 months. documented in this encounterOhiohealth Doctors Hospital07-27-2022 History of Present illness Narrative* Jose Osborne APRN.CNP - 01/31/2022 1:59 PM EDT Chief Complaint Patient presents with: Diabetes Leg Cramps: calf pain x couple months HPI Lara Tapia is a 76 year old male who [...] Test blood sugar(s) 1 times daily. Dx: OtherDM Code E11.42 Insulin: No. Patient uses One [...] solution Apply 1 application to affected area oncedaily as needed (scalp psoriasis). cyanocobalamin (VITAMIN B-12) 1,000 mcg tab Take 1,000 mcg by mouth once daily. blood sugar diagnostic ([place] MedicalTOUCH ULTRA TEST) test strip Test blood sugars once daily. DX: E11.42 Insulin: No COMPOUNDED PRESCRIPTION Diabetic shoes Dx: E11.65, DM2 Last office visit 05/20/18. ketoconazole (NIZORAL) 2 % shampoo Apply 1 application to affected area once daily as needed for Itching/Rash (scalp itching). 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 Dx: Other DM Code E11.42 Insulin: No blood sugar diagnostic (BLOOD GLUCOSE TEST) test strip Test blood sugar(s) 1 times daily. Dx: OtherDM Code E11.42 Insulin: No Clobetasol Propionate 0.05 % external solution Apply to scalp psoriasis patches and plaques selectively qday to bid (once or twice a day) as needed and AVOID face, eyes, eyelids, and deep fold areas. Fucjisuuxmq-Dxkpzddhg-Pfr C-Mn (GLUCOSAMINE CHONDROITIN MAXSTR) 500-400 mg ORAL [...] Continue current medication. - LIPID PANEL BASIC Jose Osborne APRN.CNP documented in this encounterOhiohealth Doctors Hospital06-29-2022 Miscellaneous Notes* Telephone Encounter - Ida Nichole APRN.CNP - 01/03/2022 9:27 AM EDT The following approved medication requests have been transmitted electronically. Signed Prescriptions Disp Refills aspirin 81 mg chewable tablet 30 tablet 5 Sig: Take 1 tablet by mouth once daily. Authorizing Provider: IDA NICHOLE APRN.SALES SUPPORT COORDINATOR * Telephone Encounter - Zuly Friend Pss - 01/02/2022 9:29 AM EDT Patient is asking that Aspirin be called in for him to the [facility] in [place]. documented in this encounterOhiohealth Doctors Hospital06-21-2022 Miscellaneous Notes* Telephone Encounter - Fannie Kentc - 12/26/2021 10:27 AM EDT Patient has been identified by name and date of : Yes Pending Prescriptions Disp Refills BLOOD GLUCOSE TEST STRIPS 50 Strip 11 Sig: Test blood sugar(s) 1 times daily. Dx: Other DM Code E11.42 Insulin: No. Patient uses One Touch Verio DORON: No RX INSTRUCTIONS: Patient aware RX will be sent to pharmacy. No need to notify patient. Fannie [facility]ylvan[facility] documented in this encounterOhiohealth Doctors Hospital04-27-2022 History of Present illness Narrative* Harlan Ford DO - 11/01/2021 7:25 AM EDT Patient presents with: Recheck: medication/routine HPI: Lara Tapia is a 75 year old male who presents to the office today for review of health conditions. Concerns today: S/p left total knee replacement surgery by Dr. Choi at [facility] on 08/29/21. He feels he is [...] stay physically active and walks regularly Mr. Tapia has past history of diabetes. Since our last visit he denies excessive thirst or increased frequency of urination, chest pain or dyspnea , new or unusual visual symptoms and low sugar/hypoglycemic reactions. Follows a diabetic diet some of the time. He is compliant with medication(s) andis tolerating med(s) without any side effects. He reports checking his glucose on a once a day schedule with sugars in the <120 range. Patient's last HgA1C was Hemoglobin A1C (%) Date Value 07/28/2021 7.0 05/22/2021 7.0 ) Last Ophthalmology exam was within the past 12 months Mr. Tapia reports history of hyperlipidemia. Current therapy includes simvastatin (Zocor) 20 mg. Denies side effects of muscle weakness or achiness. His most recent lipid panels are reviewed. Cholesterol, Total (mg/dL) Date Value 05/22/2021 188 HDL Cholesterol (mg/dL) Date Value 05/22/2021 40 LDL Cholesterol (mg/dL) Date Value 05/22/2021 101 Triglyceride (mg/dL) Date Value 05/22/2021 233 Mr. Tapia indicates a history of hypertension and states that he is feeling well and denies any symptoms referable to elevated blood pressure. Specifically denies headache, chest pain, palpitations,dyspnea and peripheral edema. Patient denies any side effects of his medication(s) and is compliantwith their regimen. Last 3 Encounter BP Readings: [...] Test blood sugar(s) 1 times daily. Dx: OtherDM Code E11.42 Insulin: No. Patient uses One Touch Verio ketoconazole (NIZORAL) 2 % shampoo Apply 1 application to affected area once daily as needed for Itching/Rash (scalp itching). blood sugar diagnostic (BLOOD GLUCOSE TEST) test strip Test blood sugar(s) 1 times daily. Dx: OtherDM Code E11.42 Insulin: No Xciabtqskqm-Mdmyxppgn-Tvk C-Mn (GLUCOSAMINE CHONDROITIN MAXSTR) 500-400 mg ORAL Cap Take one(1) tablet daily. Aspirin 81 mg ORAL Tab Take one(1) tablet daily. Clobetasol Propionate (TEMOVATE) 0.05 % external solution Apply 1 application to affected area oncedaily as needed (scalp psoriasis). blood sugar diagnostic (ONETOUCH ULTRA TEST) test strip Test blood sugars once daily. DX: E11.42 Insulin: No COMPOUNDED PRESCRIPTION Diabetic shoes Dx: E11.65, DM2 Last office visit 05/20/18. Blood-Glucose Meter monitoring kit Glucose Meter of Choice - Kit - Dx: Other DM Code E11.42 InsulinNo metroNIDAZOLE 0.75 % cream APPLY TO AFFECTED [...] kg (199 lb) Height: 171 cm (5' 7.32) Gen: A&O, NAD, non-toxic appearing, Pleasant, cooperative [...] supplement - VITAMIN D 25 HYDROXY Harlan Ford DO To ER if develops chest pain, shortness of breath, or severe worsening of symptoms. Discussed risks, benefits, alternatives, and potential side effects of medications. Patient expressed understanding and agreed with the plan. Harlan Ford DO [address] [place] [address] documented in this encounterOhiohealth Doctors Hospital04-26-2022 Instructions* Patient Instructions* Harlan Ford DO - 10/31/2021 2:50 PM EDT Muscle roller on legs- check at [facility] or [facility] documented in this encounterOhiohealth Doctors Hospital02-22-2022 Hospital Discharge instructions Patient Education 08/29/2021 10:42:14 Total Knee Replacement, Care After, Rpxn-gj-Mrfk Total Knee Replacement, Care After This sheet [...] Follow these instructions at home: Medicines Take gipu-vnr-irpgpwm and prescription medicines only as told by [...] keep your pee (urine) pale yellow. ?Take bulo-azq-xudgiff or prescription medicines. ?Eat foods that are [...] cannot use soap and water, use hand work force advisor. ?Change your bandage as told by your [...] contain nicotine or tobacco, such as cigarettes, e- cigarettes, and chewing tobacco. These can delay healing. [...] 09/15/2012 Document Revised: 11/02/2019 Document Reviewed: 02/05/2019 [employer] Patient Education 2020 [employer] 08/29/2021 10:42:13 Nausea and Vomiting, Adult, Gsrh-vh-Rgwk Nausea and Vomiting, Adult Nausea is feeling [...] doctor about them. Follow these instructions to carefor yourself at home. Eating and drinking Take an ORS (oral rehydration solution). This is a drink that is sold at pharmacies and stores. Drink clear fluids in small amounts as you are able, such as: ?Water. ?Ice chips. ?Fruit juice that has water added (diluted fruit juice). ?Low-calorie sports drinks. Eat bland, ugfi-iq-wtwsgi foods in small amounts as you are able, such as: ?Bananas. ?Applesauce. ?Rice. ?Low-fat (lean) meats. ?Flowella. ?Crackers. Avoid drinking fluids that have a lot of sugar or caffeine in them. This includes energy drinks, sports drinks, and soda. Avoid alcohol. Avoid spicy or fatty foods. General instructions Take otdy-gbn-nksanvg and prescription medicines only as told by your doctor. Drink enough fluid to keep your pee (urine) pale yellow. Wash your hands often with soap and water. If you cannot use soap and water, use hand work force advisor. Make sure that all people in your [...] too much water in your body. Take xqvj-[id number]-[id number] and prescription medicines only as told by [...] 12/10/2008 Document Revised: 10/16/2019 Document Reviewed: 12/02/2018 [employer] Patient Education 2020 [employer] 08/29/2021 10:42:12 Monitored Anesthesia Care, Care After Monitored Anesthesia Care, Care After These instructions provide you with information about caring for yourself after your procedure. Your health care provider may also give you more specific instructions. Your treatment has been plannedaccording to current medical practices, but problems sometimes [...] have someone help care for you until youare awake and alert. Rest as needed. Do [...] before eating solid foods. General instructions Take extw-wjn-gfntpmx and prescription medicines only as told by [...] 10/14/2016 Document Revised: 09/22/2018 Document Reviewed: 10/14/2016 [employer] Patient Education 2020 [employer]. 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 04/14/2015 04/14/2015 Gly-cvmp-phmf 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, [...] of this encounter (statuses as of 11/01/2021) [facility] History of Past illness Narrative* Problem Noted Date Resolved Date Thrombocytopenia 11/19/2018 11/13/2019 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 04/14/2015 04/14/2015 Gcx-biit-xviy 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, [...] of this encounter (statuses as of 12/27/2021) [facility] History of Past illness Narrative* Problem Noted Date Resolved Date Thrombocytopenia 11/19/2018 11/13/2019 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 04/14/2015 04/14/2015 Xiu-lhzl-xpcw 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, [...] of this encounter (statuses as of 01/01/2022) [facility] History of Past illness Narrative* Problem Noted Date Resolved Date Thrombocytopenia 11/19/2018 11/13/2019 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 04/14/2015 04/14/2015 Suh-lxfv-lhdi 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, [...] of this encounter (statuses as of 01/03/2022) [facility] History of Past illness Narrative* Problem Noted Date Resolved Date Thrombocytopenia 11/19/2018 11/13/2019 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 04/14/2015 04/14/2015 Qxb-bexv-jrkn 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, [...] of this encounter (statuses as of 01/31/2022) [facility] History of Past illness Narrative* Problem Noted Date Resolved Date Thrombocytopenia 11/19/2018 11/13/2019 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 04/14/2015 04/14/2015 Gmz-clhb-uehe 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, [...] of this encounter (statuses as of 02/01/2022) [facility] History of Past illness Narrative* Problem Noted Date Resolved Date Thrombocytopenia 11/19/2018 11/13/2019 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 04/14/2015 04/14/2015 Ghu-pzot-qguh 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, [...] of this encounter (statuses as of 02/06/2022) [facility] of Past illness Narrative* Problem Noted Date Resolved Date Thrombocytopenia 11/19/2018 11/13/2019 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 04/14/2015 04/14/2015 Qll-njrz-lajv 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, [...] of this encounter (statuses as of 08/09/2022) [facility] History of Past illness Narrative* Problem Noted Date Resolved Date Thrombocytopenia 11/19/2018 11/13/2019 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 04/14/2015 04/14/2015 Eza-wwtd-ehyw 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, [...] of this encounter (statuses as of 08/14/2022) [facility] History of Past illness Narrative* Problem Noted Date Resolved Date Thrombocytopenia 11/19/2018 11/13/2019 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 04/14/2015 04/14/2015 Ucn-nfcr-ylhp 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, [...] of this encounter (statuses as of 09/06/2022) [facility] History of Past illness Narrative* Problem Noted Date Resolved Date Thrombocytopenia 11/19/2018 11/13/2019 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 04/14/2015 04/14/2015 Pbh-jnct-eicq 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, [...] of this encounter (statuses as of 09/06/2022) [facility] History of Past illness Narrative* Problem Noted Date Resolved Date Thrombocytopenia 11/19/2018 11/13/2019 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 04/14/2015 04/14/2015 Yhc-cchw-kjuw 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, [...] of this encounter (statuses as of 09/12/2022) [facility] of Past illness Narrative* Problem Noted Date Resolved Date Thrombocytopenia 11/19/2018 11/13/2019 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 04/14/2015 04/14/2015 Mkq-sqfn-seud 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, [...] of this encounter (statuses as of 09/13/2022) [facility] of Past illness Narrative* Problem Noted Date Resolved Date Thrombocytopenia 11/19/2018 11/13/2019 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 04/14/2015 04/14/2015 Cfm-ddqw-xynk 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, [...] of this encounter (statuses as of 10/11/2022) [facility] History of Past illness Narrative* Problem Noted Date Resolved Date Thrombocytopenia 11/19/2018 11/13/2019 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 04/14/2015 04/14/2015 Myl-sjdd-inep 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, [...] of this encounter (statuses as of 11/08/2022) [facility] History of Past illness Narrative* Problem Noted Date Resolved Date Thrombocytopenia 11/19/2018 11/13/2019 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 04/14/2015 04/14/2015 Jmr-gyvw-siuq 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, [...] of this encounter (statuses as of 11/14/2022) [facility] History of Past illness Narrative* Problem Noted Date Resolved Date Thrombocytopenia 11/19/2018 11/13/2019 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 04/14/2015 04/14/2015 Kpa-lfrr-pvga 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, [...] of this encounter (statuses as of 11/20/2022) [facility] History of Past illness Narrative* Problem Noted Date Resolved Date Thrombocytopenia 11/19/2018 11/13/2019 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 Fransisco, O.D. No diabetic retinopathy detected- both eyes. 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 04/14/2015 04/14/2015 Cle-dwth-xhid 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, [...] of this encounter (statuses as of 01/15/2023) [facility] History of Past illness Narrative* Problem Noted Date Diagnosed Date Resolved Date Thrombocytopenia 11/19/2018 11/13/2019 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 04/14/2015 04/14/2015 Apn-aole-eqis 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, [...] of this encounter (statuses as of 02/14/2023) [facility] History of Past illness Narrative* Problem Noted Date Diagnosed Date Resolved Date Thrombocytopenia 11/19/2018 11/13/2019 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 04/14/2015 04/14/2015 Yow-enlz-fdlr 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, [...] of this encounter (statuses as of 02/21/2023) [facility] of Past illness Narrative* Problem Noted Date Diagnosed Date Resolved Date Thrombocytopenia 11/19/2018 11/13/2019 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 04/14/2015 04/14/2015 Wct-lwjt-txne 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, [...] of this encounter (statuses as of 03/25/2023) [facility] of Past illness Narrative* Problem Noted Date Diagnosed Date Resolved Date Thrombocytopenia 11/19/2018 11/13/2019 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 04/14/2015 04/14/2015 Yhd-sixp-zioa 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, [...] of this encounter (statuses as of 05/22/2023) [facility] of Past illness Narrative* Problem Noted Date Diagnosed Date Resolved Date Thrombocytopenia 11/19/2018 11/13/2019 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 04/14/2015 04/14/2015 Llf-koml-vqcr 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, [...] of this encounter (statuses as of 06/11/2023) [facility] of Past illness Narrative* Problem Noted Date Diagnosed Date Resolved Date Thrombocytopenia 11/19/2018 11/13/2019 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 04/14/2015 04/14/2015 Djf-bmrb-xnta 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, [...] as of this encounter (statuses as of 08/29/2023) [facility] History of Past illness Narrative* Problem Noted Date Diagnosed Date Resolved Date Thrombocytopenia 11/19/2018 11/13/2019 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 04/14/2015 04/14/2015 Kot-ccmu-vnha 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, [...] as of this encounter (statuses as of 10/16/2023) [facility] History of Past illness Narrative* Problem Noted Date Diagnosed Date Resolved Date Thrombocytopenia 11/19/2018 11/13/2019 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 04/14/2015 04/14/2015 Sxr-cqqj-gbgj 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, [...] as of this encounter (statuses as of 10/17/2023) [facility] History of Past illness Narrative* Problem Noted Date Diagnosed Date Resolved Date Thrombocytopenia 11/19/2018 11/13/2019 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 04/14/2015 04/14/2015 Cfl-vdna-iacu 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, [...] as of this encounter (statuses as of 10/21/2023) [facility] Evaluation note* Diagnosis Hypertension, essential- Primary Unspecified essential hypertension Mixed hyperlipidemia Other polyneuropathy Primary osteoarthritis of left knee Primary localized osteoarthrosis, lower leg Type 2 diabetes mellitus with diabetic polyneuropathy, without long-term current use of insulin ([facility]) Vitamin D deficiency Unspecified vitamin D deficiency [facility] Diagnosis Calf cramp- Primary Cramp of limb Hypertension, essential Unspecified essential hypertension Type 2 diabetes mellitus with diabetic polyneuropathy, without long-term current use of insulin ([facility]) Mixed hyperlipidemia documented in this encounter [facility] note* Diagnosis Type 2 diabetes mellitus with diabetic polyneuropathy, without long-term current use of insulin ([facility])- Primary Decreased pulses in feet Other symptoms involving cardiovascular system Mass of left side of neck Swelling, mass, or lump in head and neck Actinic keratosis Cold intolerance Other general symptoms Muscle cramp Cramp of limb Hypertension, essential Unspecified essential hypertension Mixed hyperlipidemia Other polyneuropathy documented in this encounter [facility] note* Diagnosis PAD (peripheral artery disease) ([facility])- Primary Peripheral vascular disease, unspecified documented in this encounter [facility] note* Diagnosis Bilateral carotid artery stenosis- Primary Occlusion and stenosis of carotid artery without mention of cerebral infarction PAD (peripheral artery disease) ([facility]) Peripheral vascular disease, unspecified Peripheral arterial disease (HCC) Peripheral vascular disease, unspecified Aortoiliac stenosis ([facility]) Atherosclerosis of aorta documented in this encounter [facility] noteNo assessment information availableWPark[facility] Work [facility]: [facility] note* Diagnosis Peripheral arterial disease (HCC)- Primary Peripheral vascular disease, unspecified documented in this encounter [facility] note* Diagnosis Onset Date Resolution Status Carotid stenosis, right acut e Carotid stenosis, right acut e [facility] Work Phone: Evaluation note* Diagnosis Cerebrovascular accident (CVA) due to stenosis of right carotid artery (HCC)- Primary [facility]* Diagnosis Type 2 diabetes mellitus with diabetic polyneuropathy, without long-term current use of insulin ([facility])- Primary Hypersplenism [facility]* Diagnosis Type 2 diabetes mellitus with diabetic polyneuropathy, without long-term current use of insulin (HCC)- Primary PAD (peripheral artery disease) (HCC) Peripheral vascular disease, unspecified Hypertension, essential Unspecified essential hypertension Mixed hyperlipidemia Other polyneuropathy Hypercalcemia Vitamin D deficiency Unspecified vitamin D deficiency Benign prostatic hyperplasia with lower urinary tract symptoms, symptom details unspecified Thrombocytopenia (HCC) Thrombocytopenia, unspecified Diabetic ulcer of left midfoot associated with type 2 diabetes mellitus, limited to breakdown of skin ([facility]) [facility] Diagnosis Mixed hyperlipidemia documented in this encounter 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 Acute renal insufficiency ac rosa maria Acute UTI acute Atrial fibrillation with rapid ventricular response acute Atrial fibrillation, currently in sinus rhythm acute Weakness acute [facility] Work Phone: Evaluation note* Diagnosis Acute cystitis with hematuria- Primary Acute cystitis Atrial fibrillation with rapid ventricular response (HCC) Atrial fibrillation Acute diverticulitis Diverticulitis of colon (without mention of hemorrhage) Acute renal insufficiency Unspecified disorder of kidney and ureter Type 2 diabetes mellitus with diabetic polyneuropathy, without long-term current use of insulin ([facility]) Gait disorder Abnormality of gait Hypertension, essential Unspecified essential hypertension Other polyneuropathy documented in this encounter [facility] note* Diagnosis Onset Date Resolution Status Acute UTI acute Diverticulitis acute Weakness acute A-fib acute Hypercholesteremia acute Hypertension chronic [facility] Work Phone: Evaluation note* Diagnosis Type 2 diabetes mellitus with [...] (HCC) Thrombocytopenia, unspecified [facility]* Diagnosis Onset Date Resolution Status A-fib acute Hypercholesteremia acute Hypertension [facility] Work Phone: Evaluation note* Diagnosis Type 2 diabetes mellitus with diabetic polyneuropathy, without long-term current use of insulin (HCC)- Primary Mixed hyperlipidemia Atrial fibrillation with rapid ventricular response (HCC) Atrial fibrillation Hypertension, essential Unspecified essential hypertension Gait disorder Abnormality of gait Actinic keratosis Vitamin D deficiency Unspecified vitamin D deficiency Other polyneuropathy Diabetic ulcer of left midfoot associated with type 2 diabetes mellitus, limited to breakdown of skin (HCC) PAD (peripheral artery disease) (HCC) Peripheral vascular disease, unspecified Thrombocytopenia (HCC) Thrombocytopenia, unspecified [facility]* Diagnosis Mixed hyperlipidemia documented in this encounter [facility] note* Diagnosis Type 2 diabetes mellitus with diabetic polyneuropathy, without long-term current use of insulin (HCC)- Primary Rosacea Abrasion, leg w/o infection Hip, thigh, leg, and ankle, abrasion or friction burn, without mention of infection Diabetic ulcer of left midfoot associated with type 2 diabetes mellitus, limited to breakdown of skin (HCC) PAD (peripheral artery disease) (HCC) Peripheral vascular disease, unspecified Thrombocytopenia (HCC) Thrombocytopenia, unspecified Hypertension, essential Unspecified essential hypertension Mixed hyperlipidemia Atrial fibrillation with rapid ventricular response (HCC) Atrial fibrillation Other polyneuropathy Actinic keratosis [facility]* Diagnosis Acute cystitis with hematuria Acute cystitis [facility]* Diagnosis Uncontrolled type 2 diabetes mellitus with peripheral neuropathy- Primary Type II or unspecified type diabetes mellitus with neurological manifestations, uncontrolled Need for vaccination Need for prophylactic vaccination and inoculation against unspecified single disease Other seborrheic keratosis Essential hypertension Unspecified essential hypertension Thrombocytopenia, unspecified (HCC) Thrombocytopenia, unspecified Acute pain of left shoulder Rash- Primary Rash and other nonspecific skin eruption Vasculitis limited to skin Vascular disorder of skin Type 2 diabetes mellitus with diabetic polyneuropathy, without long-term current use of insulin (HCC) Other polyneuropathy Mixed hyperlipidemia Primary hypertension Unspecified essential hypertension documented in this encounter [facility] note* Diagnosis Uncontrolled type 2 diabetes mellitus with peripheral neuropathy- Primary Type II or unspecified type diabetes mellitus with neurological manifestations, uncontrolled Need for vaccination Need for prophylactic vaccination and inoculation against unspecified single disease Other seborrheic keratosis Essential hypertension Unspecified essential hypertension Thrombocytopenia, unspecified (HCC) Thrombocytopenia, unspecified Acute pain of left shoulder Open wound of skin- Primary [facility]* Diagnosis Uncontrolled type 2 diabetes mellitus with peripheral neuropathy- Primary Type II or unspecified type diabetes mellitus with neurological manifestations, uncontrolled Need for vaccination Need for prophylactic vaccination and inoculation against unspecified single disease Other seborrheic keratosis Essential hypertension Unspecified essential hypertension Thrombocytopenia, unspecified (HCC) Thrombocytopenia, unspecified Acute pain of left shoulder Type 2 diabetes mellitus with diabetic polyneuropathy, without long-term current use of insulin (HCC)- Primary Mixed hyperlipidemia Primary hypertension Unspecified essential hypertension Other polyneuropathy PAD (peripheral artery disease) (HCC) Peripheral vascular disease, unspecified Vitamin D deficiency Unspecified vitamin D deficiency Obesity, Class I, BMI 30-34.9 Obesity, unspecified documented in this encounter [facility] note* Diagnosis Uncontrolled type 2 diabetes mellitus with peripheral neuropathy- Primary Type II or unspecified type diabetes mellitus with neurological manifestations, uncontrolled Need for vaccination Need for prophylactic vaccination and inoculation against unspecified single disease Other seborrheic keratosis Essential hypertension Unspecified essential hypertension Thrombocytopenia, unspecified (HCC) Thrombocytopenia, unspecified Acute pain of left shoulder Primary hypertension- Primary Unspecified essential hypertension Mixed hyperlipidemia Type 2 diabetes mellitus with diabetic polyneuropathy, without long-term current use of insulin (HCC) documented in this encounter [facility] note* Diagnosis Uncontrolled type 2 diabetes mellitus with peripheral neuropathy- Primary Type II or unspecified type diabetes mellitus with neurological manifestations, uncontrolled Need for vaccination Need for prophylactic vaccination and inoculation against unspecified single disease Other seborrheic keratosis Essential hypertension Unspecified essential hypertension Thrombocytopenia, unspecified (HCC) Thrombocytopenia, unspecified Acute pain of left shoulder Chronic right shoulder pain- Primary Pain in joint, shoulder region Right elbow pain Pain in joint, upper arm Right hand pain Pain in limb Cervical radiculopathy Brachial neuritis or radiculitis nos DDD (degenerative disc disease), cervical Degeneration of cervical intervertebral disc documented in this encounter [facility] note* Diagnosis Uncontrolled type 2 diabetes mellitus with peripheral neuropathy- Primary Type II or unspecified type diabetes mellitus with neurological manifestations, uncontrolled Need for vaccination Need for prophylactic vaccination and inoculation against unspecified single disease Other seborrheic keratosis Essential hypertension Unspecified essential hypertension Thrombocytopenia, unspecified (HCC) Thrombocytopenia, unspecified Acute pain of left shoulder Acute pain of right shoulder- Primary Neck pain Cervicalgia Fall, subsequent encounter Right elbow pain Pain in joint, upper arm Primary hypertension Unspecified essential hypertension Type 2 diabetes mellitus with diabetic polyneuropathy, without long-term current use of insulin (HCC) Other polyneuropathy [facility] in [facility] Diagnosis Uncontrolled type 2 diabetes mellitus with peripheral neuropathy- Primary Type II or unspecified type diabetes mellitus with neurological manifestations, uncontrolled Need for vaccination Need for prophylactic vaccination and inoculation against unspecified single disease Other seborrheic keratosis Essential hypertension Unspecified essential hypertension Thrombocytopenia, unspecified (HCC) Thrombocytopenia, unspecified Acute pain of left shoulder Impacted cerumen of left ear- Primary Impacted cerumen documented in this [facility] Diagnosis Uncontrolled type 2 diabetes mellitus with peripheral neuropathy- Primary Type II or unspecified type diabetes mellitus with neurological manifestations, uncontrolled Need for vaccination Need for prophylactic vaccination and inoculation against unspecified single disease Other seborrheic keratosis Essential hypertension Unspecified essential hypertension Thrombocytopenia, unspecified (HCC) Thrombocytopenia, unspecified Acute pain of left shoulder Rash Rash and other nonspecific skin eruption Vasculitis limited to skin Vascular disorder of skin documented in this encounter [facility] note* Diagnosis Uncontrolled type 2 diabetes mellitus with peripheral neuropathy- Primary Type II or unspecified type diabetes mellitus with neurological manifestations, uncontrolled Need for vaccination Need for prophylactic vaccination and inoculation against unspecified single disease Other seborrheic keratosis Essential hypertension Unspecified essential hypertension Thrombocytopenia, unspecified (HCC) Thrombocytopenia, unspecified Acute pain of left shoulder Type 2 diabetes mellitus with diabetic polyneuropathy, without long-term current use of insulin (HCC)- Primary Tremor Abnormal involuntary movements Primary hypertension Unspecified essential hypertension Other polyneuropathy Mixed hyperlipidemia Acute pain of right shoulder PAD (peripheral artery disease) (HCC) Peripheral vascular disease, unspecified Cerebrovascular accident (CVA) due to stenosis of right carotid artery ([facility]) Vitamin D deficiency Unspecified vitamin D deficiency documented in this encounter [facility] note* Diagnosis Uncontrolled type 2 diabetes mellitus with peripheral neuropathy- Primary Type II or unspecified type diabetes mellitus with neurological manifestations, uncontrolled Need for vaccination Need for prophylactic vaccination and inoculation against unspecified single disease Other seborrheic keratosis Essential hypertension Unspecified essential hypertension Thrombocytopenia, unspecified Acute pain of left shoulder Medicare annual wellness visit, subsequent- Primary Routine general medical examination at a health care facility Type 2 diabetes mellitus with diabetic polyneuropathy, without long-term current use of insulin (HCC) Acute cystitis with hematuria Acute cystitis Other polyneuropathy Primary hypertension Unspecified essential hypertension PAD (peripheral artery disease) Peripheral vascular disease, unspecified Mixed hyperlipidemia History of stroke with residual effects Unspecified late effects of cerebrovascular disease Overweight with body mass index (BMI) of 29 to 29.9 in adult [facility] Author Manan Mendosa [facility] January 24, 2023 4:02pm Note Date/Time January 24, 2023 4:02 pm [facility] Medical Records Department [address] [place] [address] History & Physical Exam 01/24/23 1547 MR#: [id number] Acct: [id number] Name: LARA TAPIA Rep #:[id number] : 1945 77 From: Manan Barreto PCP: Dr. Harlan Ford, DO Status:AD M ERICK Location: [place] [address] HPI - General General Date of Admission: 01/24/23 Date of Service: 01/24/23 Chief Complaint: Lethargy and excessive somnolence HPI Narrative LARA TAPIA, is a 77 M with a history of hypertension, type 2 diabetes and internal carotid artery stenosis status post CEA a few months ago. Recently in the emergency department 3 weeks ago for urinary tract infection and completed course of oral antibiotics. Presents to the emergency department today with 1 day history of excessive sleepiness and lethargy, dizziness and weakness. Apparently patient had recently increased his water intake and has been waking up several times in the night to urinate which has been affecting his nighttime sleep. Patient snores but has never been diagnosed with sleep apnea. Due to concerns of recurrence of urinary tract infection patient [facility]. Found to be in atrial fibrillation with rapid ventricular response with heart rate as high as 140 bpm but patient spontaneously converted to normalsinus rhythm. Did not have any chest pain or shortness of breath at the time. [facility] Medical History Diabetes mellitus Easy bruising Excessive bleeding High cholesterol History of pain when walking Hypercholesteremia Hypertension Non-smoker Vision loss, right eye Wears glasses Wears partial dentures Home Medications aspirin 81 mg tablet 81 mg PO DAILY BLOOD THINNER 09/06/22 [History Last Taken 01/23/23] cyanocobalamin (vitamin B-12) 1,000 mcg tablet (Vitamin B-12) 1,000 mcg PO DAILYSUPPLEMENT 09/06/22 [History Last Taken 01/23/23] gabapentin 300 mg capsule 900 mg PO TID PAIN 09/06/22 [History Last Taken 01/24/23] glimepiride 4 mg tablet 4 mg PO BID DIABETES 09/06/22 [History Last Taken 01/23/23] [id number] C-Mn 500 mg-400 mg capsule (Glucosamine Chondroitin Maximum Strength) 1 cap PO DAILY SUPPLEMENT 09/06/22 [History Last Taken 01/23/23] hydrochlorothiazide 12.5 mg capsule 12.5 mg PO DAILY BP 09/06/22 [History Last Taken 01/23/23] lamotrigine 25 mg tablet 25 mg PO DAILY PT UNSURE 09/06/22 [History Last Taken 01/23/23] losartan 50 mg tablet 50 mg PO DAILY BP 09/06/22 [History Last Taken 01/23/23] metformin 750 mg tablet,extended release 24 hr 750 mg PO BID DIABETES 09/06/22 [History Last Taken 01/24/23] potassium 99 mg tablet 99 mg PO DAILY SUPPLEMENT 09/06/22 [History Last Taken 01/23/23] magnesium oxide 500 mg capsule 500 mg PO DAILY SUPPLEMENT 09/10/22 [History Last Taken 01/23/23] cholecalciferol (vitamin D3) 25 mcg (1,000 unit) capsule (Vitamin D3) 25 mcg PO DAILY SUPPLEMENT 09/13/22 [History Last Taken 01/23/23] meloxicam 7.5 mg tablet 7.5 mg PO PRN PRN FOOT PAIN 09/13/22 [History Last Taken 01/23/23] pyridoxine (vitamin B6) 50 mg tablet (Vitamin B-6) 50 mg PO DAILY SUPPLEMENT 09/13/22 [History Last Taken 01/23/23] tamsulosin 0.4 mg capsule 0.4 mg PO DAILY@1730 30 days #30 caps 09/20/22 [Rx Last Taken 01/23/23] simvastatin 20 mg tablet 20 mg PO DAILY 10/11/22 [History Last Taken 01/23/23] Allergy/AdvReac Type Severity Reaction Status Date / Time pregabalin [From Lyrica] AdvReac Other Verified 01/24/23 13:10 Surgical History Hx laparoscopic cholecystectomy Hx of bilateral cataract extraction Hx of colonoscopy Hx of hernia repair Hx of total knee replacement Social History Smoking Status: Never smoker ROS ROS Narrative Denies any chest pain or shortness of breath. Does complain of unsteadiness of gait which he attributes to his peripheral neuropathy from his diabetes. All other systems reviewed and essentially negative as above in the body of the history. Vital Signs Vital Signs Vital Signs: 01/24/23 13:03 01/24/23 13:13 01/24/23 13:13 Temperature 36.5 C L Temperature Source Temporal Pulse Rate 133 H 135 H Respiratory Rate 18 19 H Respiratory Effort Normal Non-Labored Respiratory Pattern Normal Blood Pressure 204/164 H 122/54 H Blood Pressure Mean 177 76 Pulse Ox 97 95 Oxygen Delivery Method Room Air Room Air 01/24/23 13:16 01/24/23 13:25 01/24/23 13:38 Temperature Temperature Source Pulse Rate 141 H 98 95 Respiratory Rate 16 19 H 18 Respiratory Effort Respiratory Pattern Blood Pressure 139/124 H 102/58 L 111/63 Blood Pressure Mean 129 72 79 Pulse Ox 95 94 96 Oxygen Delivery Method Room Air Room Air Room Air 01/24/23 14:00 01/24/23 15:17 01/24/23 15:31 Temperature 37.3 C H Temperature Source Oral Pulse Rate 95 67 66 Respiratory Rate 19 H 15 19 H Respiratory Effort Respiratory Pattern Blood Pressure 132/58 H 97/49 L 93/61 Blood Pressure Mean 82 65 71 Pulse Ox 95 98 97 Oxygen Delivery Method Room Air Room Air Room Air 01/24/23 15:42 Temperature Temperature Source Pulse Rate 65 Respiratory Rate 18 Respiratory Effort Respiratory Pattern Blood Pressure 96/50 L Blood Pressure Mean 65 Pulse Ox 98 Oxygen Delivery Method Room Air Weight Weight: 88.813 kg Body Mass Index (BMI) 28.9 Physical Exam Narrative General exam. Elderly man, mildly weak appearing not in any obvious distress. HEENT. Oral mucosa moist no pallor jaundice and no cyanosis Neck. Neck is supple. Right-sided CEA scar noted Heart. There is a second heart sounds heard no murmurs. Lungs were clear to auscultation Abdomen. Obese and moves respiration Extremities. No pedal edema RESOURCE COORDINATOR. Conscious alert and oriented x3. Cranial nerves II to XII grossly intact. Results Medical Records Data Attestation: I reviewed the patient's medical records Lab / Micro Data Attestation: I reviewed the patient's lab results. 01/24/23 13:30 01/24/23 13:30 Labs: Laboratory Results - last 24 hr 01/24/23 13:30: WBC 6.3, RBC 3.99 L, Hgb 12.6 L, Hct 37.9 L, MCV 95.0 H, MCH 31.6, MCHC 33.2, RDW Std Deviation 47.0 H, RDW Coeff of [place] 13.3, Plt Count 63 L, MPV 9.1, Immature Gran % (Auto) 0.200, Neut % (Auto) 88.6 H, Lymph % (Auto) 2.4 L, [place] % (Auto) 8.5, Eos % (Auto) 0.0, Baso % (Auto) 0.3, Absolute Neuts (auto) 5.6, Absolute Lymphs (auto) 0.15 L, Nucleated RBC % 0, Differential Comment COMMENT, Platelet Estimate MOD DEC, PT 15.5 H, INR 1.2, APTT 30.3, Sodium 132 L, Potassium 3.7, Chloride 99, Carbon Dioxide 25.0, Anion Gap 8, BUN 24 H, Creatinine 1.40 H, Estim Creat Clear Calc 44.89, Est GFR (MDRD) Af Amer 63, Est GFR (MDRD) Non-Af 52 L, BUN/Creatinine Ratio 17.1, Glucose 258 H, Calcium 9.5, TSH 0.33 L, Free T4 1.23 01/24/23 14:05: Urine Color Yellow, Urine Clarity Cloudy, Urine pH 5.0, Ur Specific [place] 1.020, Urine Protein 100 H, Urine Glucose (UA) 250 H, Urine Ketones 15 H, Urine Occult Blood 25 H, Urine Nitrite Positive H, Urine Bilirubin1 H, Urine Urobilinogen 1 H, Ur Leukocyte Esterase 500 H, Urine RBC 0-5 SEEN, Urine WBC 25- 50 SEEN, Ur Squamous Epith Cells 0-5 SEEN, Urine Bacteria 3+, Hyaline Casts 0-5 SEEN, Urine Mucus 0 SEEN Radiology Impression Chest X-Ray 01/24/23 13:50 IMPRESSION: No acute cardiopulmonary process identified. Electronically Signed: Giselle Rosa MD at 14:18 EDT , Assessment & Plan Assessment/Plan (1) Atrial fibrillation with rapid ventricular response: PLAN: Plan Assessment and plan 1. Newly detected atrial fibrillation with rapid ventricular response. Converted back to sinus rhythm spontaneously in the emergency department with. [id number] score of 6. Patient started on Eliquis 5 mg twice a day in the emergency department and will continue start on low-dose beta-palma with metoprolol 25 mg twice a day. Consult cardiology. Echocardiogram. TSH mildly depressed we will check free T3 and T4 2. Excessive somnolence. Suspect this is most likely simply secondary to impaired sleep from frequent nighttime awakenings to urinate. Encouraged and advised to cut back on excessive hydration and try to avoid fluids anytime after 6 PM. Patient's phenotype will suggest risk for JOSE. Would recommend referral to pulmonology for PSG following discharge. Untreated JOSE would also be a risk factor for development of atrial fibrillation. 3. Hypertension. Continue antihypertensives but will discontinue hydrochlorothiazide since metoprolol being added. 4. Type 2 diabetes. Continue current regimen of oral hypoglycemic agents. Accu- Cheks before meals and at bedtime and insulin sliding scale for mealtimes and at bedtime. 5. 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 Symptomatic right ICA atherosclerotic stenosis status post CEA. Currently on aspirin. Given advanced age, aspirin along with Eliquis likely to unacceptably increase patient's bleeding risk and so in the light of this I think it reasonable to discontinue aspirin and while maintaining only on Eliquis. Will defer to cardiology. 6. Prerenal azotemia. Recheck BMP in the morning. Charges/Coding Visit Charges Inpatient E&M: 20473 Init Hosp L3 01/24/23 1602 <Electronically signed by Manan Mendosa MD> Cosigner Signature (if applicable): CC: Dr. Manan Mendosa MD; Dr. Harlan Ford, DO~ Signed [facility] Work Phone: Hospital course Narrative No data available for this section [facility] Hospital Discharge instructions No data available for this section [facility] Reason for referral (narrative)* Outpatient Procedure (Routine) - Pending Review Specialty Diagnoses / Procedures Referred By Contac t Referred To Contact [facility]NOTE 3] VASCULAR ANCHORAGE Diagnoses Aortoiliac stenosis (HCC) Procedures SCREENING AORTA DUPLEX (2017) US ABDOMINAL AORTA REAL TIME SCREEN STUDY AAA Roshan Ray MD [address] [place] [address] [address] Referral ID Status Reason Start Date Expiration Date Visits Requested Visits Authorized [id number] Pending Review Auto-Generat ed Referral 09/05/2022 09/05/2023 1 1 * Outpatient Procedure (Routine) - Authorized Specialty Diagnoses / Procedures Referred By Contac t Referred To Contact [facility]NOTE 3] VASCULAR ANCHORAGE Diagnoses Peripheral arterial disease (HCC) Procedures PVR ANK PRESS [facility] NON-INVAS PHYSIOLOGIC STD EXTREMITY ART 2 LEVEL Roshan Ray MD [address] [place] [address] [address] Referral ID Status Reason Start Date Expiration Date Visits Requested Visits Authorized [id number] Authorized Auto-Generat ed Referral 09/05/2022 09/05/2023 1 1 * Outpatient Procedure (Routine) - Authorized Specialty Diagnoses / Procedures Referred By Contac t Referred To Contact [facility][NOTE 3] VASCULAR ANCHORAGE Diagnoses Peripheral arterial disease (HCC) Procedures US LEG ARTERIAL PERIPH [facility] DUP-SCAN LXTR ART/ARTL BPGS COMPL BI STUDY Roshan Ray MD [address] [place] [address] [address] Referral ID Status Reason Start Date Expiration Date Visits Requested Visits Authorized [id number] Authorized Auto-Generat ed Referral 09/05/2022 09/05/2023 1 1 * Outpatient Procedure (Routine) - Authorized Specialty Diagnoses / Procedures Referred By Contac t Referred To Contact [facility]NOTE 3] VASCULAR ANCHORAGE Diagnoses Bilateral carotid artery stenosis Procedures US CAROTID ARTERIES [facility] DUPLEX SCAN EXTRACRANIAL ART COMPL BI STUDY Roshan Ray MD [address] [place] [address] [facility] [address] [address] Referral ID Status Reason Start Date Expiration Date Visits Requested Visits Authorized [id number] Authorized Auto-Generat ed Referral 09/05/2022 09/05/2023 1 1 [facility] for referral (narrative)* Outpatient Procedure (Routine) - Pending Review Specialty Diagnoses / Procedures Referred By Contac t Referred To Contact [facility]NOTE 3] VASCULAR ANCHORAGE Diagnoses Peripheral arterial disease (HCC) Procedures US POPLITEAL ARTERY [facility] NON-INVAS PHYSIOLOGIC STD EXTREMITY ART 2 LEVEL Roshan Ray MD [address] [place] [address] [address] Referral ID Status Reason Start Date Expiration Date Visits Requested Visits Authorized [id number] Pending Review Auto-Generat ed Referral 09/12/2022 09/12/2023 1 1 [facility] for referral (narrative)* Diagnostic Procedure Only (Urgent) - Closed Specialty Diagnoses / Procedures Referred By Contac t Referred To Contact XR IMAGING Diagnoses Right hand pain Procedures XR HAND GENERAL 3V PA/LAT/OBL RIGHT RADEX HAND MINIMUM 3 VIEWS Kalpana Poe, PA-C [address] [facility] [address] [place] [address] [place] [address] Referral ID Status Reason Start Date Expiration Date V isits Requested Visits Authorized [id number] Closed Auto-Generate d Referral 07/23/2024 08/22/2025 1 1 * Diagnostic Procedure Only (Urgent) - Closed Specialty Diagnoses / Procedures Referred By Contac t Referred To Contact XR IMAGING Diagnoses Right elbow pain Procedures XR ELBOW SPECIAL VIEWS AP/LAT/OTHER RIGHT RADEX ELBOW COMPLETE MINIMUM 3 VIEWS Kalpana Poe PA-C [address] [address] [place] [address] Referral ID Status Reason Start Date Expiration Date V isits Requested Visits Authorized [id number] Closed Auto-Generate d Referral 07/23/2024 08/22/2025 1 1 * Diagnostic Procedure Only (Urgent) - Closed Specialty Diagnoses / Procedures Referred By Contac t Referred To Contact XR IMAGING Diagnoses Chronic right shoulder pain Procedures XR SHOULDER [id number] AP/TRUE AP RIGHT RADEX SHOULDER COMPLETE MINIMUM 2 VIEWS Kalpana Poe PA-C [address] [place] [address] [place] [address] Referral ID Status Reason Start Date Expiration Date V isits Requested Visits Authorized [id number] Closed Auto-Generate d Referral 07/23/2024 08/22/2025 1 1 [facility] for referral [facility] Work Phone: Reason for visit Narrative* Diagnostic Procedure Only (Urgent) - Closed Specialty Diagnoses / Procedures Referred By Contac t Referred To Contact XR IMAGING Diagnoses Right hand pain Procedures XR HAND GENERAL 3V PA/LAT/OBL RIGHT RADEX HAND MINIMUM 3 VIEWS Kalpana Poe PA-C [address] [address] [place] [address] Referral ID Status Reason Start Date Expiration Date V isits Requested Visits Authorized [id number] Closed Auto-Generate d Referral 07/23/2024 08/22/2025 1 1 [facility] Summary Purpose Family History No Family History Records FoundNo Family History Records FoundNo Family History Records Found Advance Directives No Advanced Directives Records FoundDocuments on File Type Date Recorded Patient Emergency Medical Tech Expl anation Advance Directive(s) 04/11/2020 7:46 AM Advance Directive Response Recorded Date/ Time Living Will Yes September 06, 2022 1:24pm Power of Superintendent Power Yes September 06 1:24pm Name of Medical Power of Superintendent Power DOROTHY OVALLE September 06, 2022 1:24pm Advance Directive Response Recorded Date/ Time Name of Medical Power of Superintendent Power DOROTHY DUDLEYGERS September 06, 2022 2:24pm Name of Medical Power of Superintendent Power DOROTHY TAPIA September 13, 2022 4:07pm Living Will Yes September 13, 2022 4:07pm Power of Superintendent Power Yes September 13 4:07pm Advance Directive Response Recorded Date/ Time Name of Medical Power of Superintendent Power DOROTHY TAPIA September 13, 2022 4:07pm Name of Medical Power of Superintendent Power SON January 05, 2023 9:21am Living Will Yes January 05, 2023 9 :21am Power of Superintendent Power Yes January 05, 2023 9:21am Advance Directive Response Recorded Date/ Time Name of Medical Power of Superintendent Power DOROTHY TAPIA- S ON January 24, 2023 1:13pm Living Will Yes January 24, 2023 1:13pm Power of Superintendent Power Yes January 24 1:13pm Name of Medical Power of Superintendent Power SON January 05, 2023 9:21am Advance Directive Response Recorded Date/ Time Name of Medical Power of Superintendent Power Dorothy Tapia (son), Zehra Farris (spouse) January 24, 2023 4:33pm Living Will Yes January 24, 2023 4:33pm Power of Superintendent Power Yes January 24 4:33pm Name of Medical Power of Superintendent Power SON January 05, 2023 9:21am Advance Directive Response Recorded Date/ Time Living Will Yes January 24, 2023 3:33pm Power of Superintendent Power Yes January 24 3:33pm Advance Directive Response Recorded Date/ Time Living Will Yes January 24, 2023 4:33pm Power of Superintendent Power Yes January 24 4:33pm Advance Directive Response Recorded Date/ Time Living Will Yes January 24, 2023 4:33pm Power of Superintendent Power Yes January 24 4:33pm Living Will Yes September 05, 2024 8:21am Power of Superintendent Power Yes September 05 8:21am Living Will Yes June 07 2:12am Power of Superintendent Power Yes June 07, 2024 2:12am Living Will Yes July 08 5:40am Power of Superintendent Power Yes July 08 5:40am Living Will Yes August 08 4:04am Power of Superintendent Power Yes August 08, 2024 4:04am Advance Directive Response Recorded Date/ Time Living Will Yes January 24, 2023 4:33pm Do you have a Healthcare Power of Superintendent Power? Yes January 24, 2023 4:33pm Living Will Yes September 05, 2024 8:21am Do you have a Healthcare Power of Superintendent Power? Yes September 05, 2024 8:21am Living Will Yes June 07 2:12am Do you have a Healthcare Power of Superintendent Power? Yes June 07, 2024 2:12am Living Will Yes July 08 5:40am Do you have a Healthcare Power of Superintendent Power? Yes July 08, 2024 5:40am Living Will Yes August 08 4:04am Do you have a Healthcare Power of Superintendent Power? Yes August 08, 2024 4:04am Advance Directive Response Recorded Date/ Time Living Will Yes January 24, 2023 4:33pm Do you have a Healthcare Power of Superintendent Power? Yes January 24, 2023 4:33pm Living Will Yes September 05, 2024 8:21am Do you have a Healthcare Power of Superintendent Power? Yes September 05, 2024 8:21am Living Will Yes October 05, 2024 10:40pm Do you have a Healthcare Power of Superintendent Power? Yes October 05, 2024 10:40pm Living Will Yes June 07 2:12am Do you have a Healthcare Power of Superintendent Power? Yes June 07, 2024 2:12am Living Will Yes July 08 5:40am Do you have a Healthcare Power of Superintendent Power? Yes July 08, 2024 5:40am Living Will Yes August 08 4:04am Do you have a Healthcare Power of Superintendent Power? Yes August 08, 2024 4:04am Advance Directive Response Recorded Date/ Time Living Will Yes January 24, 2023 4:33pm Do you have a Healthcare Power of Superintendent Power? Yes January 24, 2023 4:33pm Living Will Yes September 05, 2024 8:21am Do you have a Healthcare Power of Superintendent Power? Yes September 05, 2024 8:21am Living Will Yes October 05, 2024 10:40pm Do you have a Healthcare Power of Superintendent Power? Yes October 05, 2024 10:40pm Living Will Yes November 04, 2024 9:59pm Do you have a Healthcare Power of Superintendent Power? Yes November 04, 2024 9:59pm Living Will Yes July 08 5:40am Do you have a Healthcare Power of Superintendent Power? Yes July 08, 2024 5:40am Living Will Yes August 08 4:04am Do you have a Healthcare Power of Superintendent Power? Yes August 08, 2024 4:04am Advance Directive Response Recorded Date/ Time Living Will Yes January 24, 2023 4:33pm Do you have a Healthcare Power of Superintendent Power? Yes January 24, 2023 4:33pm Living Will Yes September 05, 2024 8:21am Do you have a Healthcare Power of Superintendent Power? Yes September 05, 2024 8:21am Living Will Yes October 05, 2024 10:40pm Do you have a Healthcare Power of Superintendent Power? Yes October 05, 2024 10:40pm Living Will Yes November 04, 2024 9:59pm Do you have a Healthcare Power of Superintendent Power? Yes November 04, 2024 9:59pm Living Will Yes August 08 4:04am Do you have a Healthcare Power of Superintendent Power? Yes August 08, 2024 4:04am Advance Directive Response Recorded Date/ Time Living Will Yes January 24, 2023 4:33pm Do you have a Healthcare Power of Superintendent Power? Yes January 24, 2023 4:33pm Living Will Yes September 05, 2024 8:21am Do you have a Healthcare Power of Superintendent Power? Yes September 05, 2024 8:21am Living Will Yes October 05, 2024 10:40pm Do you have a Healthcare Power of Superintendent Power? Yes October 05, 2024 10:40pm Living Will Yes November 04, 2024 9:59pm Do you have a Healthcare Power of Superintendent Power? Yes November 04, 2024 9:59pm Living Will Yes December 06, 2024 7 :08pm Do you have a Healthcare Power of Superintendent Power? Yes December 06, 2024 7:08pm Living Will Yes August 08 4:04am Do you have a Healthcare Power of Superintendent Power? Yes August 08, 2024 4:04am Advance Directive Response Recorded Date/ Time Living Will Yes January 24, 2023 4:33pm Do you have a Healthcare Power of Superintendent Power? Yes January 24, 2023 4:33pm Living Will Yes September 05, 2024 8:21am Do you have a Healthcare Power of Superintendent Power? Yes September 05, 2024 8:21am Living Will Yes October 05, 2024 10:40pm Do you have a Healthcare Power of Superintendent Power? Yes October 05, 2024 10:40pm Living Will Yes November 04, 2024 9:59pm Do you have a Healthcare Power of Superintendent Power? Yes November 04, 2024 9:59pm Living Will Yes December 06, 2024 7 :08pm Do you have a Healthcare Power of Superintendent Power? Yes December 06, 2024 7:08pm Advance Directive Response Recorded Date/ Time Living Will Yes October 05, 2024 10:40pm Do you have a Healthcare Power of Superintendent Power? Yes October 05, 2024 10:40pm Living Will Yes November 04, 2024 9:59pm Do you have a Healthcare Power of Superintendent Power? Yes November 04, 2024 9:59pm Living Will Yes December 06, 2024 7 :08pm Do you have a Healthcare Power of Superintendent Power? Yes December 06, 2024 7:08pm Reason for Referral Specialty Diagnoses / Procedures Referred By Sean t Referred To Contact [facility] Diagnoses Acute pain of right shoulder Neck pain Fall, subsequent encounter Right elbow pain Procedures CONSULT TO PHYSICAL THERAPY PHYSICAL THERAPY EVALUATION HIGH COMPLEX 45 MINS Harlan Ford DO [address] [place] [address] [facility] [place] [address] [place] [address] Referral ID Status Reason Start Date Expiration Date Visits Requested Visits Authorized [id number] Authorized PCP Requested Referral Auto-Generate d Referral 07/29/2024 07/29/2025 99 99 Specialty Diagnoses / Procedures Referred By Sean ireland Referred To Contact Podiatry Diagnoses Type 2 diabetes mellitus with diabetic polyneuropathy, without long-term current use of insulin (HCC) PAD (peripheral artery disease) (HCC) Procedures CONSULT TO PODIATRY OFFICE/OUTPATIENT [facility] 60-74 MINUTES Harlan Ford, DO [address] [place] [address] Referral ID Status Reason Start Date Expiration Date Visits Requested Visits Authorized [id number] Authorized PCP Requested Referral 11/13/2022 11/13/2023 1 1 Specialty Diagnoses / Procedures Referred By Sean ireland Referred To Contact Vascular Surgery Diagnoses PAD (peripheral artery disease) (HCC) Procedures CONSULT TO VASCULAR SURGERY OFFICE/OUTPATIENT [facility] 60-74 MINUTES Harlan Ford, DO [address] [place] [address] Referral ID Status Reason Start Date Expiration Date V isits Requested Visits Authorized [id number] Closed PCP Requested Referral 08/22/2022 08/22/2023 1 1 Specialty Diagnoses / Procedures Referred By Sean ireland Referred To Contact CT IMAGING Diagnoses Mass of left side of neck Procedures CT NECK SOFT TISSUE WO IVCON CT SOFT TISSUE NECK W/O CONTRAST MATERIAL Harlan Ford, DO [address] [place] [address] Ct [facility] Referral ID Status Reason Start Date Expiration Date Visits Requested Visits Authorized [id number] Authorized Auto-Generat ed Referral 08/08/2022 09/07/2023 1 1 Specialty Diagnoses / Procedures Referred By Sean ireland Ref[facility] Diagnoses Decreased pulses in feet Procedures PVR ANK PRESS SHAZIA [facility] NON-INVAS PHYSIOLOGIC STD EXTREMITY ART 2 LEVEL Harlan Ford, DO [address] [place] [address] [facility] [place] [address] [place] [address] Referral ID Status Reason Start Date Expiration Date Visits Requested Visits Authorized [id number] Authorized Auto-Generat ed Referral 08/08/2022 08/08/2023 1 1 Chief Complaint and Reason for Visit Chief Complaint STROKE ALERT Chief Complaint STROKE ALERT Hospital FU RT CAROTID ENDARTERECTOMY RT CAROTID ENDARTERECTOMY RT CAROTID ENDARTERECTOMY Reason for Visit Carotid stenosis, ri ght Carotid stenosis, right Chief Complaint Hospital FU RT CAROTID ENDARTERECTOMY RT CAROTID ENDARTERECTOMY RT CAROTID ENDARTERECTOMY 3 WK FU HYPERGLYCEMIA, DIZZINESS nv Reason for Visit Carotid stenosis, ri ght Carotid stenosis, right Carotid stenosis, right Chief Complaint 3 WK FU HYPERGLYCEMIA, DIZZINESS nv NEW ONSET ATRIAL FIB, UTI NEW ONSET ATRIAL FIB, UTI Reason for Visit Carotid stenosis, ri ght Acute renal insufficiency Acute UTI Atrial fibrillation with rapid ventricular response Atrial fibrillation, currently in sinus rhythm Weakness Chief Complaint HYPERGLYCEMIA, DIZZI NESS nv NEW ONSET ATRIAL FIB, UTI NEW ONSET ATRIAL FIB, UTI NEW ONSET ATRIAL FIB, UTI S/P [facility] 01/25/23 AFIB A FIB/HTN/HYPERCHOLESTEREMIA RIGHT CAROTID STENOSIS Reason for Visit Acute UTI Diverticulitis Weakness A-fib Hypercholesteremia Hypertension Chief Complaint 4 M FU Reason for Visit A-fib Hypercholesteremia Hypertension Chief Complaint 4 M FU E ORDER/SHD THIS BE A RECURRING NEXT TIME? Reason for Visit A-fib Hypercholesteremia Hypertension Chief Complaint 4 M FU E ORDER/SHD THIS BE A RECURRING NEXT TIME? E ORDER/SHD THIS BE A RECURRING NEXT TIME? Reason for Visit A-fib Hypercholesteremia Hypertension Chief Complaint 4 M FU E ORDER/SHD THIS BE A RECURRING NEXT TIME? E ORDER/SHD THIS BE A RECURRING NEXT TIME? 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 Reason for Visit A-fib Hypercholesteremia Hypertension Chief Complaint 4 M FU E ORDER/SHD THIS BE A RECURRING NEXT TIME? E ORDER/SHD THIS BE A RECURRING NEXT TIME? 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 E ORDER/SHD THIS BE A RECURRING NEXT TIME? Reason for Visit A-fib Hypercholesteremia Hypertension Chief Complaint Admit Date S/O E ORDER June 01, 2024 10:57am S/O E ORDER June 29, 2024 10:29am S/O E ORDER August 03, 2024 1 1:18am S/O E ORDER August 24, 2024 11:41am S/O E ORDER September 07, 2024 1:40 pm S/P R CEA September 16, 2024 10: 44am NUEROPATHY, GAIT ISSUES. RX HERE September 052024 10:30am Chief Complaint Admit Date S/O E ORDER June 29, 2024 10:29am S/O E ORDER August 03, 2024 1 1:18am S/O E ORDER August 24, 2024 11:41am S/O E ORDER September 07, 2024 1:40 pm S/P R CEA September 16, 2024 10: 44am NUEROPATHY, GAIT ISSUES. RX HERE September 062024 10:30am Chief Complaint Admit Date S/O E ORDER June 29, 2024 10:29am S/O E ORDER August 03, 2024 1 1:18am S/O E ORDER August 24, 2024 11:41am S/O E ORDER September 07, 2024 1:40 pm S/P R CEA September 16, 2024 10: 44am Discuss US October 06, 2024 12:4 3pm INT LABS October 06, 2024 1:36 pm THYROID NODULE October 09, 2024 12:4 5pm NUEROPATHY, GAIT ISSUES. RX HERE October 122024 10:30am S/O E ORDER October 12, 2024 11:1 8am Reason for Visit Admit Date Carotid artery disease October 06, 2024 1 2:43pm PAD (peripheral artery disease) October 12:43pm S/P carotid endarterectomy October 06 12:43pm Thyroid nodule October 06, 2024 12:4 3pm Chief Complaint Admit Date S/O E ORDER August 03, 2024 1 1:18am S/O E ORDER August 24, 2024 11:41am S/O E ORDER September 07, 2024 1:40 pm S/P R CEA September 16, 2024 10: 44am Discuss US October 06, 2024 12:4 3pm INT LABS October 06, 2024 1:36 pm THYROID NODULE October 09, 2024 12:4 5pm NUEROPATHY, GAIT ISSUES. RX HERE October 122024 10:30am S/O E ORDER October 19, 2024 11: 25am S/O E ORDER November 20, 2024 10:35 am COMPLEX CYSTIC LESION November 24, 2024 4:5 5pm Chief Complaint Admit Date S/O E ORDER August 24, 2024 11:41am S/O E ORDER September 07, 2024 1:40 pm S/P R CEA September 16, 2024 10: 44am Discuss US October 06, 2024 12:4 3pm INT LABS October 06, 2024 1:36 pm THYROID NODULE October 09, 2024 12:4 5pm NUEROPATHY, GAIT ISSUES. RX HERE October 122024 10:30am S/O E ORDER October 19, 2024 11: 25am COMPLEX CYSTIC LESION November 24, 2024 4:5 5pm S/O E ORDER December 02, 2024 10:35 am Chief Complaint Admit Date S/O E ORDER August 24, 2024 11:41am S/O E ORDER September 07, 2024 1:40 pm S/P R CEA September 16, 2024 10: 44am Discuss US October 06, 2024 12:4 3pm INT LABS October 06, 2024 1:36 pm THYROID NODULE October 09, 2024 12:4 5pm NUEROPATHY, GAIT ISSUES. RX HERE October 122024 10:30am S/O E ORDER October 19, 2024 11: 25am COMPLEX CYSTIC LESION November 24, 2024 4:5 5pm S/O E ORDER December 02, 2024 10:35 am cervical adenopathy- scan that the area seen on ct December 11, 2024 9:11am S/O E ORDER December 15, 2024 10:4 3am Chief Complaint Admit Date S/O E ORDER September 07, 2024 1:40 pm S/P R CEA September 16, 2024 10: 44am Discuss US October 06, 2024 12:4 3pm INT LABS October 06, 2024 1:36 pm THYROID NODULE October 09, 2024 12:4 5pm NUEROPATHY, GAIT ISSUES. RX HERE October 122024 10:30am S/O E ORDER October 19, 2024 11: 25am COMPLEX CYSTIC LESION November 24, 2024 4:5 5pm S/O E ORDER December 02, 2024 10:35 am cervical adenopathy- scan that the area seen on ct December 11, 2024 9:11am S/O E ORDER December 15, 2024 10:4 3am REVIEW IMAGING & DISCUSS BIOPSY IN OR [facility] 2024 8:20am Reason for Visit Admit Date Carotid artery disease October 06, 2024 1 2:43pm PAD (peripheral artery disease) October 12:43pm S/P carotid endarterectomy October 06 12:43pm Thyroid nodule October 06, 2024 12:4 3pm Mass of left side of neck December 23 8:20am Chief Complaint Admit Date Discuss US October 06, 2024 12:4 3pm INT LABS October 06, 2024 1:36 pm THYROID NODULE October 09, 2024 12:4 5pm NUEROPATHY, GAIT ISSUES. RX HERE October 122024 10:30am S/O E ORDER October 19, 2024 11: 25am COMPLEX CYSTIC LESION November 24, 2024 4:5 5pm S/O E ORDER December 02, 2024 10:35 am cervical adenopathy- scan that the area seen on ct December 11, 2024 9:11am S/O E ORDER December 15, 2024 10:4 3am REVIEW IMAGING & DISCUSS BIOPSY IN OR [facility] 2024 8:20am S/O E ORDER January 19, 2025 10:3 2am Pre Op Visit January 25, 2025 12:1 4pm Additional Source Comments (unrecognized sect ion and content) No Status Records FoundNo Status Records FoundNo Status Records Found INFORMATION SOURCE (unrecogn ized section and content) DATE CREATED AUTHOR 09/01/2021 [facility] ([place]) DATE CREATED AUTHOR AUTHOR'S ORGANIZ ATION 12/24/2024 [facility] DATE CREATED AUTHOR AUTHOR'S ORGANIZ ATION 01/28/2025 [facility] Source Comments (unrecognize d section and content) In the event this informatio n is protected by the Federal Confidentiality of Alcohol and Drug Abuse Patient Records regulations: The Federal rules restrict any use of the information to criminally investigate or prosecute any alcohol or drug abuse patient.[facility] the event this information is protected by the Federal Confidentiality of Alcohol and Drug Abuse Patient Records regulations: The Federal rules restrict any use of the information to criminally investigate or prosecute any alcohol or drug abuse patient.[facility] HospitalIn the event this information is protected by the Federal Confidentiality of Alcohol and Drug Abuse Patient Records regulations: The Federal rules restrict any use of the information to criminally investigate or prosecute any alcohol or drug abuse patient.[facility] HospitalIn the event this information is protected by the Federal Confidentiality of Alcohol and Drug Abuse Patient Records regulations: The Federal rules restrict any use of the information to criminally investigate or prosecute any alcohol or drug abuse patient.[facility] HospitalIn the event this information is protected by the Federal Confidentiality of Alcohol and Drug Abuse Patient Records regulations: The Federal rules restrict any use of the information to criminally investigate or prosecute any alcohol or drug abuse patient.[facility] the event this information is protected by the Federal Confidentiality of Alcohol and Drug Abuse Patient Records regulations: The Federal rules restrict any use of the information to criminally investigate or prosecute any alcohol or drug abuse patient.[facility] HospitalIn the event this information is protected by the Federal Confidentiality of Alcohol and Drug Abuse Patient Records regulations: The Federal rules restrict any use of the information to criminally investigate or prosecute any alcohol or drug abuse patient.[facility] HospitalIn the event this information is protected by the Federal Confidentiality of Alcohol and Drug Abuse Patient Records regulations: The Federal rules restrict any use of the information to criminally investigate or prosecute any alcohol or drug abuse patient.[facility] HospitalIn the event this information is protected by the Federal Confidentiality of Alcohol and Drug Abuse Patient Records regulations: The Federal rules restrict any use of the information to criminally investigate or prosecute any alcohol or drug abuse patient.[facility] HospitalIn the event this information is protected by the Federal Confidentiality of Alcohol and Drug Abuse Patient Records regulations: The Federal rules restrict any use of the information to criminally investigate or prosecute any alcohol or drug abuse patient.[facility] HospitalIn the event this information is protected by the Federal Confidentiality of Alcohol and Drug Abuse Patient Records regulations: The Federal rules restrict any use of the information to criminally investigate or prosecute any alcohol or drug abuse patient.[facility] HospitalIn the event this information is protected by the Federal Confidentiality of Alcohol and Drug Abuse Patient Records regulations: The Federal rules restrict any use of the information to criminally investigate or prosecute any alcohol or drug abuse patient.[facility] HospitalIn the event this information is protected by the Federal Confidentiality of Alcohol and Drug Abuse Patient Records regulations: The Federal rules restrict any use of the information to criminally investigate or prosecute any alcohol or drug abuse patient.[facility] HospitalIn the event this information is protected by the Federal Confidentiality of Alcohol and Drug Abuse Patient Records regulations: The Federal rules restrict any use of the information to criminally investigate or prosecute any alcohol or drug abuse patient.[facility] HospitalIn the event this information is protected by the Federal Confidentiality of Alcohol and Drug Abuse Patient Records regulations: The Federal rules restrict any use of the information to criminally investigate or prosecute any alcohol or drug abuse patient.[facility] HospitalIn the event this information is protected by the Federal Confidentiality of Alcohol and Drug Abuse Patient Records regulations: The Federal rules restrict any use of the information to criminally investigate or prosecute any alcohol or drug abuse patient.[facility] HospitalIn the event this information is protected by the Federal Confidentiality of Alcohol and Drug Abuse Patient Records regulations: The Federal rules restrict any use of the information to criminally investigate or prosecute any alcohol or drug abuse patient.[facility] HospitalIn the event this information is protected by the Federal Confidentiality of Alcohol and Drug Abuse Patient Records regulations: The Federal rules restrict any use of the information to criminally investigate or prosecute any alcohol or drug abuse patient.[facility] HospitalIn the event this information is protected by the Federal Confidentiality of Alcohol and Drug Abuse Patient Records regulations: The Federal rules restrict any use of the information to criminally investigate or prosecute any alcohol or drug abuse patient.[facility] HospitalIn the event this information is protected by the Federal Confidentiality of Alcohol and Drug Abuse Patient Records regulations: The Federal rules restrict any use of the information to criminally investigate or prosecute any alcohol or drug abuse patient.[facility] HospitalIn the event this information is protected by the Federal Confidentiality of Alcohol and Drug Abuse Patient Records regulations: The Federal rules restrict any use of the information to criminally investigate or prosecute any alcohol or drug abuse patient.[facility] HospitalIn the event this information is protected by the Federal Confidentiality of Alcohol and Drug Abuse Patient Records regulations: The Federal rules restrict any use of the information to criminally investigate or prosecute any alcohol or drug abuse patient.[facility] HospitalIn the event this information is protected by the Federal Confidentiality of Alcohol and Drug Abuse Patient Records regulations: The Federal rules restrict any use of the information to criminally investigate or prosecute any alcohol or drug abuse patient.[facility] HospitalIn the event this information is protected by the Federal Confidentiality of Alcohol and Drug Abuse Patient Records regulations: The Federal rules restrict any use of the information to criminally investigate or prosecute any alcohol or drug abuse patient.[facility] HospitalIn the event this information is protected by the Federal Confidentiality of Alcohol and Drug Abuse Patient Records regulations: The Federal rules restrict any use of the information to criminally investigate or prosecute any alcohol or drug abuse patient.[facility] HospitalIn the event this information is protected by the Federal Confidentiality of Alcohol and Drug Abuse Patient Records regulations: The Federal rules restrict any use of the information to criminally investigate or prosecute any alcohol or drug abuse patient.[facility] HospitalIn the event this information is protected by the Federal Confidentiality of Alcohol and Drug Abuse Patient Records regulations: The Federal rules restrict any use of the information to criminally investigate or prosecute any alcohol or drug abuse patient.[facility] HospitalIn the event this information is protected by the Federal Confidentiality of Alcohol and Drug Abuse Patient Records regulations: The Federal rules restrict any use of the information to criminally investigate or prosecute any alcohol or drug abuse patient.[facility] HospitalIn the event this information is protected by the Federal Confidentiality of Alcohol and Drug Abuse Patient Records regulations: The Federal rules restrict any use of the information to criminally investigate or prosecute any alcohol or drug abuse patient.[facility] HospitalIn the event this information is protected by the Federal Confidentiality of Alcohol and Drug Abuse Patient Records regulations: The Federal rules restrict any use of the information to criminally investigate or prosecute any alcohol or drug abuse patient.[facility] HospitalIn the event this information is protected by the Federal Confidentiality of Alcohol and Drug Abuse Patient Records regulations: The Federal rules restrict any use of the information to criminally investigate or prosecute any alcohol or drug abuse patient.[facility] HospitalIn the event this information is protected by the Federal Confidentiality of Alcohol and Drug Abuse Patient Records regulations: The Federal rules restrict any use of the information to criminally investigate or prosecute any alcohol or drug abuse patient.[facility] HospitalIn the event this information is protected by the Federal Confidentiality of Alcohol and Drug Abuse Patient Records regulations: The Federal rules restrict any use of the information to criminally investigate or prosecute any alcohol or drug abuse patient.[facility] HospitalIn the event this information is protected by the Federal Confidentiality of Alcohol and Drug Abuse Patient Records regulations: The Federal rules restrict any use of the information to criminally investigate or prosecute any alcohol or drug abuse patient.[facility] HospitalIn the event this information is protected by the Federal Confidentiality of Alcohol and Drug Abuse Patient Records regulations: The Federal rules restrict any use of the information to criminally investigate or prosecute any alcohol or drug abuse patient.[facility] HospitalIn the event this information is protected by the Federal Confidentiality of Alcohol and Drug Abuse Patient Records regulations: The Federal rules restrict any use of the information to criminally investigate or prosecute any alcohol or drug abuse patient.[facility] HospitalIn the event this information is protected by the Federal Confidentiality of Alcohol and Drug Abuse Patient Records regulations: The Federal rules restrict any use of the information to criminally investigate or prosecute any alcohol or drug abuse patient.[facility] HospitalIn the event this information is protected by the Federal Confidentiality of Alcohol and Drug Abuse Patient Records regulations: The Federal rules restrict any use of the information to criminally investigate or prosecute any alcohol or drug abuse patient.[facility] HospitalIn the event this information is protected by the Federal Confidentiality of Alcohol and Drug Abuse Patient Records regulations: The Federal rules restrict any use of the information to criminally investigate or prosecute any alcohol or drug abuse patient.[facility] HospitalIn the event this information is protected by the Federal Confidentiality of Alcohol and Drug Abuse Patient Records regulations: The Federal rules restrict any use of the information to criminally investigate or prosecute any alcohol or drug abuse patient.[facility] HospitalIn the event this information is protected by the Federal Confidentiality of Alcohol and Drug Abuse Patient Records regulations: The Federal rules restrict any use of the information to criminally investigate or prosecute any alcohol or drug abuse patient.[facility] HospitalIn the event this information is protected by the Federal Confidentiality of Alcohol and Drug Abuse Patient Records regulations: The Federal rules restrict any use of the information to criminally investigate or prosecute any alcohol or drug abuse patient.[facility] HospitalIn the event this information is protected by the Federal Confidentiality of Alcohol and Drug Abuse Patient Records regulations: The Federal rules restrict any use of the information to criminally investigate or prosecute any alcohol or drug abuse patient.[facility] HospitalIn the event this information is protected by the Federal Confidentiality of Alcohol and Drug Abuse Patient Records regulations: The Federal rules restrict any use of the information to criminally investigate or prosecute any alcohol or drug abuse patient.[facility] HospitalIn the event this information is protected by the Federal Confidentiality of Alcohol and Drug Abuse Patient Records regulations: The Federal rules restrict any use of the information to criminally investigate or prosecute any alcohol or drug abuse patient.[facility] HospitalIn the event this information is protected by the Federal Confidentiality of Alcohol and Drug Abuse Patient Records regulations: The Federal rules restrict any use of the information to criminally investigate or prosecute any alcohol or drug abuse patient.[facility] HospitalIn the event this information is protected by the Federal Confidentiality of Alcohol and Drug Abuse Patient Records regulations: The Federal rules restrict any use of the information to criminally investigate or prosecute any alcohol or drug abuse patient.[facility] HospitalIn the event this information is protected by the Federal Confidentiality of Alcohol and Drug Abuse Patient Records regulations: The Federal rules restrict any use of the information to criminally investigate or prosecute any alcohol or drug abuse patient.[facility] HospitalIn the event this information is protected by the Federal Confidentiality of Alcohol and Drug Abuse Patient Records regulations: The Federal rules restrict any use of the information to criminally investigate or prosecute any alcohol or drug abuse patient.[facility] HospitalIn the event this information is protected by the Federal Confidentiality of Alcohol and Drug Abuse Patient Records regulations: The Federal rules restrict any use of the information to criminally investigate or prosecute any alcohol or drug abuse patient.[facility] HospitalIn the event this information is protected by the Federal Confidentiality of Alcohol and Drug Abuse Patient Records regulations: The Federal rules restrict any use of the information to criminally investigate or prosecute any alcohol or drug abuse patient.[facility] Reason for Visit (unrecogniz ed section and content) Reason Comments Recheck medication/routine Reason Comments Refill Request Reason Onset Date Comments Refill Request 01/01/2022 Reason Onset Date Comments Refill Request 01/02/2022 Reason Comments Diabetes Leg Cramps calf pain x couple m onths Reason Comments Results Reason Comments 6 Month Exam Reason Comments Results Reason Comments New Patient Specialty Diagnoses / Procedures Referred By Contbeto t Referred To Contact Vascular Surgery Diagnoses PAD (peripheral artery disease) ([facility]) Procedures CONSULT TO VASCULAR SURGERY OFFICE/OUTPATIENT NEW HIGH MDM 60-74 MINUTES Harlan Ford, DO [address] [place] [address] Referral ID Status Reason Start Date Expiration Date V isits Requested Visits Authorized [id number] Closed PCP Requested Referral 08/22/2022 08/22/2023 1 [...] Reason Onset Date Comments Refill Request 03/22/2023 Reason Onset Date Comments Refill Request 10/15/2023 Reason Onset Date Comments Refill Request 01/29/2024 Reason Comments [facility] Reason Comments [facility] Call/Request Reason Comments cold sore on lower X 1 week Reason Onset Date Comments Refill Request 04/20/2024 Reason Comments Arm Pain R arm pain, initial injury 1 month ago from fall, shoveling snow today and had increased pain Reason Comments Follow Up Reason Comments Ear Problem left ear feels full x 3-5 days Reason Onset Date Comments Refill Request 09/04/2024 Reason Onset Date Comments Refill Request 09/10/2024 Reason Onset Date Comments Refill Request 10/06/2024 Reason Comments F/U 3 Month Medicare Wellness Exam Care Teams (unrecognized sec tion and content) Oracle Ebs Consultant Relationship Specialty Start Date End Date Harlan Ford, DO [address] [place] [address] PCP - General Family Practice 02/19/17 Oracle Ebs Consultant Relationship Specialty Start Date End Date Harlan Ford, DO [address] [place] [address] PCP - General Family Practice 02/19/17 Oracle Ebs Consultant Relationship Specialty Start Date End Date Harlan Ford, DO [address] [place] [address] PCP - General Family Practice 02/19/17 Oracle Ebs Consultant Relationship Specialty Start Date End Date Harlan Ford DO [address] [place] [address] PCP - General Family Practice 02/19/17 Oracle Ebs Consultant Relationship Specialty Start Date End Date Harlan Ford, DO [address] [place] [address] PCP - General Family Practice 02/19/17 Oracle Ebs Consultant Relationship Specialty Start Date End Date Harlan Ford, DO [address] [place] [address] PCP - General Family Practice 02/19/17 Oracle Ebs Consultant Relationship Specialty Start Date End Date Harlan Ford, DO [address] [place] [address] PCP - General Family Medicine 02/19/17 Oracle Ebs Consultant Relationship Specialty Start Date End Date Harlan Ford, DO [address] [place] [address] PCP - General Family Medicine 02/19/17 Oracle Ebs Consultant Relationship Specialty Start Date End Date Harlan Ford, DO [address] [place] [address] PCP - General Family Medicine 02/19/17 Oracle Ebs Consultant Relationship Specialty Start Date End Date Harlan Ford, DO [address] [place] [address] PCP - General Family Medicine 02/19/17 Team Status: Active Member Role Status Dates Dr. Gilson Mario , Family Provider Active Dr. Harlan Ford DO Primary Care Provider Active Team Status: Inactive Member Role Status Dates Dr. Jw Kirkpatrick MD Emergency Provider Active Dr. Harlan Ford DO Primary Care Provider Active Oracle Ebs Consultant Relationship Specialty Start Date End Date Harlan Ford, DO [address] [place] [address] PCP - General [facility] Medicine 02/19/17 Oracle Ebs Consultant Relationship Specialty Start Date End Date Harlan Ford, DO [address] [place] [address] PCP - [facility] Medicine 02/19/17 Team Status: Inactive Member Role Status Dates Dr. Harlan Ford DO Primary Care Provider, Referr ing Provider Active Dr. Sony López MD Attending Provider Active Team Status: Active Member Role Status Dates Dr. Harlan Ford DO Primary Care Provider Active Dr. Soyn López MD Admit Provider, Att ending Provider, Referring Provider, Other Provider Active Dr. Sony Roberts MD Other Provider Active Team Status: Inactive Member Role Status Dates Dr. Jw Kirkpatrick MD Attending Provider, Emergency Provider Active Dr. Harlan Ford DO Primary Care Provider Active Team Status: Inactive Member Role Status Dates Dr. Harlan Ford DO Primary Care Provider Active Dr. Sony López MD Admit Provider, Att ending Provider, Referring Provider Active Dr. Sony Roberts MD Other Provider Active Oracle Ebs Consultant Relationship Specialty Start Date End Date Harlan Ford, DO [address] [place] [address] PCP - General Family Medicine 02/19/17 Oracle Ebs Consultant Relationship Specialty Start Date End Date Harlan Ford, DO [address] [place] [address] PCP - General Family Medicine 02/19/17 Oracle Ebs Consultant Relationship Specialty Start Date End Date Harlan Ford, DO [address] [place] [address] PCP - General Family Medicine 02/19/17 Oracle Ebs Consultant Relationship Specialty Start Date End Date Harlan Ford, DO [address] [place] [address] PCP - General Family Medicine 02/19/17 Oracle Ebs Consultant Relationship Specialty Start Date End Date Harlan Ford, DO [address] [place] [address] PCP - General Family Medicine 02/19/17 Oracle Ebs Consultant Relationship Specialty Start Date End Date Harlan Ford, DO [address] [place] [address] PCP - General Family Medicine 02/19/17 Team Status: Inactive Member Role Status Dates Dr. Harlan Ford , DO Primary Care Provider Active Dr. Abilio Manrique , DO Attending Provider, Emergency Pr ovider Active Team Status: Inactive Member Role Status Dates Dr. Harlan Ford , DO Primary Care Provider Active Dr. Clay Kidd , DO Emergency Provider Active Oracle Ebs Consultant Relationship Specialty Start Date End Date Harlan Ford, DO [address] [place] [address] PCP - General Family Medicine 02/19/17 Team Status: Active Member Role Status Dates Dr. Harlan Ford , DO Primary Care Provider Active Dr. Parvez Thornton , DO Emergency Provider Active Dr. Manan Mendosa MD Admit Provider, A ttending Provider, Other Provider Active Team Status: Active Member Role Status Dates Dr. Harlan Ford , DO Primary Care Provider Active Dr. Parvez Thornton , DO Emergency Provider Active Dr. Manan Mendosa MD Admit Provider, Attending Provi stas Active Team Status: Inactive Member Role Status Dates Dr. Harlan Ford , DO Primary Care Provider Active Dr. Clay Kidd , DO Attending Provider, Emergency Pro vider Active Oracle Ebs Consultant Relationship Specialty Start Date End Date Harlan Ford, DO [address] [place] [address] PCP - General Family Medicine 02/19/17 Oracle Ebs Consultant Relationship Specialty Start Date End Date Harlan Ford, DO [address] [place] [address] PCP - General Family Medicine 02/19/17 Team Status: Active Member Role Status Dates Dr. Harlan Ford DO Primary Care Provider Active Dr. Phil Cochran MD Attending Provider Active Team Status: Active Member Role Status Dates Dr. Harlan Ford , DO Primary Care Provider Active Dr. Parvez Thornton , DO Emergency Provider Active Dr. Manan Mendosa MD Admit Provider, Other Provider Active Teressa Wetzel Other Provider Active Dr. Phil Cochran MD Other Provider Active Dr. Carrillo Reese MD Other Provider Active Dr. Clint Chen MD Other Provider Active Dr. Prieto Shah MD Other Provider Active Dr. Xvaier Hu MD Other Provider Active Dr. Sony Coyne MD Other Provider Active Dr. Eligio Barger MD Other Provider Active Dr. Palu Powell MD Other Provider Active Dr. Dora Mcnair MD Other Provider Active Dr. Radha Yang MD Other Provider Active Dr. Gilson Antunez MD Other Provider Active Dr. Heladio Santizo MD Other Provider Active Dr. Thomas Rocha MD Other Provider Active Bubba Rondon PROJECT STRUCTURAL ENGINEER, PROJECT STRUCTURAL ENGINEER-C Other Provider Active Teressa Morales PROJECT STRUCTURAL ENGINEER, PROJECT STRUCTURAL ENGINEER-C Other Provider Active Torri Mendoza PA, PA Other Provider Active Dr. Gertrude Momin , DO Attending Provider, Other Provide r Active Team Status: Inactive Member Role Status Dates Dr. Harlan Ford , DO Primary Care Provider, Referr ing Provider Active Torri CARL, PA Attending Provider Active Team Status: Active Member Role Status Dates Dr. Harlan Ford , DO Primary Care Provider Active Dr. Sony López MD Attending Provider Active Team Status: Inactive Member Role Status Dates Dr. Harlan Ford , DO Primary Care Provider Active SIDDHARTHA Ulloa Attending Provider, Referring Provid er Active Team Status: Inactive Member Role Status Dates Dr. Harlan Ford , DO Primary Care Provider Active Dr. Parvez Thornton , DO Emergency Provider Active Dr. Manan Mendosa MD Admit Provider, Other Provider Active Dr. Gertrude Momin , DO Attending Provider Active Teressa Wetzel Other Provider Active Dr. Phil Cochran MD Other Provider Active Dr. Carrillo Reese MD Other Provider Active Dr. Clint Chen MD Other Provider Active Dr. Prieto Shah MD Other Provider Active Dr. Xavier Hu MD Other Provider Active Dr. Sony Coyne MD Other Provider Active Dr. Eligio Barger MD Other Provider Active Dr. Paul Powell MD Other Provider Active Dr. Dora Mcnair MD Other Provider Active Dr. Radha Yang MD Other Provider Active Dr. Gilson Antunez MD Other Provider Active Dr. Heladio Santizo MD Other Provider Active Dr. Thomas Rocha MD Other Provider Active Bubba Rondon PROJECT STRUCTURAL ENGINEER, PROJECT STRUCTURAL ENGINEER-C Other Provider Active Teressa Morales PROJECT STRUCTURAL ENGINEER, PROJECT STRUCTURAL ENGINEER-C Other Provider Active Torri CARL, PA Other Provider Active Team Status: Active Member Role Status Dates Dr. Harlan Ford DO Primary Care Provider Active Torri CARL, PA Attending Provider, Referr ing Provider Active Oracle Ebs Consultant Relationship Specialty Start Date End Date Harlan Ford DO [address] [place] [address] PCP - General Family Medicine 02/19/17 Oracle Ebs Consultant Relationship Specialty Start Date End Date Harlan Ford DO [address] [place] [address] PCP - General Family Medicine 02/19/17 Team Status: Inactive Member Role Status Dates Dr. Harlan Ford DO Primary Care Provider Active Torri CARL, PA Attending Provider, Referr ing Provider Active Oracle Ebs Consultant Relationship Specialty Start Date End Date Harlan Ford DO [address] [place] [address] PCP - General Family Medicine 02/19/17 Team Status: Active Member Role Status Dates Dr. Harlan Ford DO Primary Care Provider Active Dr. Sony López MD Attending Provider Active SIDDHARTHA Ulloa Referring Provider Active Oracle Ebs Consultant Relationship Specialty Start Date End Date Harlan Ford DO [address] [place] [address] PCP - General Family Medicine 02/19/17 Oracle Ebs Consultant Relationship Specialty Start Date End Date Harlan Ford DO [address] [place] [address] PCP - General Family Medicine 02/19/17 Oracle Ebs Consultant Relationship Specialty Start Date End Date Harlan Ford DO [address] [place] [address] PCP - General Family Medicine 02/19/17 Oracle Ebs Consultant Relationship Specialty Start Date End Date Harlan Ford DO [address] [place] [address] PCP - General Family Medicine 02/19/17 Oracle Ebs Consultant Relationship Specialty Start Date End Date Harlan Ford DO [address] [place] [address] PCP - General Family Medicine 02/19/17 Oracle Ebs Consultant Relationship Specialty Start Date End Date Harlan Ford DO [address] [place] [address] PCP - General Family Medicine 02/19/17 Oracle Ebs Consultant Relationship Specialty Start Date End Date Harlan Ford DO [address] [place] [address] PCP - General Family Medicine 02/19/17 Oracle Ebs Consultant Relationship Specialty Start Date End Date Harlan Ford DO [address] [place] [address] PCP - General Family Medicine 02/19/17 Oracle Ebs Consultant Relationship Specialty Start Date End Date Harlan Ford DO [address] [place] [address] PCP - General Family Medicine 02/19/17 Oracle Ebs Consultant Relationship Specialty Start Date End Date Harlan Ford DO [address] [place] [address] PCP - General Family Medicine 02/19/17 Oracle Ebs Consultant Relationship Specialty Start Date End Date Hralan Ford DO [address] [place] [address] PCP - General Family Medicine 02/19/17 Ida Gan, C++ QUANT DEVELOPER.SALES SUPPORT COORDINATOR [address] [place] [address] Bicycle I Assembler Family Medicine 06/14/24 Jose Osborne APRN.SALES SUPPORT COORDINATOR [address] [place] [address] Bicycle I Assembler Family Medicine 06/14/24 Oracle Ebs Consultant Relationship Specialty Start Date End Date Harlan Ford DO [address] [place] [address] PCP - General Family Medicine 02/19/17 Ida Gan, C++ QUANT DEVELOPER.SALES SUPPORT COORDINATOR [address] [place] [place] [address] Bicycle I Assembler Family Medicine 06/14/24 Jose Osborne, C++ QUANT DEVELOPER.SALES SUPPORT COORDINATOR [address] [place] [address] Bicycle I Assembler Family Medicine 06/14/24 Oracle Ebs Consultant Relationship Specialty Start Date End Date Harlan Ford DO [address] [place] [address] PCP - General Family Medicine 02/19/17 Ida Gan, C++ QUANT DEVELOPER.SALES SUPPORT COORDINATOR [address] [facility] [address] Bicycle I Assembler Family Medicine 06/14/24 Jose Osborne, C++ QUANT DEVELOPER.SALES SUPPORT COORDINATOR [address] [place] [address] [facility] Oracle Ebs Consultant Relationship Specialty Start Date End Date Harlan Fodr DO [address] [place] [address] PCP - General Family Medicine 02/19/17 Ida Gan, C++ QUANT DEVELOPER.SALES SUPPORT COORDINATOR [address] [facility] [address] Bicycle I Assembler Family Medicine 06/14/24 Jose Osborne, C++ QUANT DEVELOPER.SALES SUPPORT COORDINATOR [address] [facility] [address] [facility] 06/14/24 Oracle Ebs Consultant Relationship Specialty Start Date End Date Harlan Ford DO [address] [facility] [place] [address] PCP - General Family Medicine 02/19/17 Ida Gan, C++ QUANT DEVELOPER.SALES SUPPORT COORDINATOR [address] [place] [address] [facility] JerseyJose, C++ QUANT DEVELOPER.SALES SUPPORT COORDINATOR [address] [facility] [address] [facility] 06/14/24 Oracle Ebs Consultant Relationship Specialty Start Date End Date Harlan Ford DO [address] [place] [address] PCP - General Family Medicine 02/19/17 Ida Gan, C++ QUANT DEVELOPER.SALES SUPPORT COORDINATOR [address] [place] [address] [facility] 06/14/24 [facility] JerseyJose, C++ QUANT DEVELOPER.SALES SUPPORT COORDINATOR [address] [place] [address] [facility] 06/14/24 Oracle Ebs Consultant Relationship Specialty Start Date End Date Harlan Ford DO [address] [place] [address] PCP - General Family Medicine 02/19/17 Ida Gan, C++ QUANT DEVELOPER.SALES SUPPORT COORDINATOR [address] [place] [address] [facility] 06/14/24 UrsulaJose, C++ QUANT DEVELOPER.SALES SUPPORT COORDINATOR [address] [place] [address] [facility] 06/[facility]/24 Oracle Ebs Consultant Relationship Specialty Start Date End Date Harlan Ford DO [address] [place] [address] PCP - General Family Medicine 02/19/17 Ida Gan, C++ QUANT DEVELOPER.SALES SUPPORT COORDINATOR [address] [place] [address] [facility] 06/[facility]/24 UrsulaJose, C++ QUANT DEVELOPER.SALES SUPPORT COORDINATOR [address] [place] [address] [facility] 06/14/24 Oracle Ebs Consultant Relationship Specialty Start Date End Date Harlan Ford DO [address] [place] [address] PCP - General [facility] Medicine 02/19/17 Ida Gan, C++ QUANT DEVELOPER.SALES SUPPORT COORDINATOR [address] [place] [address] [facility] 06/14/24 [facility] JerseyJose, C++ QUANT DEVELOPER.SALES SUPPORT COORDINATOR [address] [place] [address] [facility] 06/14/24 Team Status: Active Member Role Status Dates Dr. Harlan Ford DO Primary Care Provider Active Team Status: Inactive Member Role Status Dates Dr. Harlan Ford DO Primary Care Provider Active Start: June 01, 2024 End: June 06, 2024 Torri Mendoza PA, PA Attending Provider Active Start: June 01, 2024 End: June 06, 2024 Torri Mendoza PA, PA Referring Provider Active Start: June 01, 2024 End: June 06, 2024 Team Status: Inactive Member Role Status Dates Dr. Harlan Ford DO Primary Care Provider Active Start: June 29, 2024 End: June 29, 2024 Torri Mendoza PA, PA Attending Provider Active Start: June 29, 2024 End: June 29, 2024 Torri Mendoza PA, PA Referring Provider Active Start: June 29, 2024 End: June 29, 2024 Team Status: Inactive Member Role Status Dates Dr. Harlan Ford DO Primary Care Provider Active Start: August 03, 2024 End: August 03, 2024 Torri Mendoza PA, PA Attending Provider Active Start: August 03, 2024 End: August 03, 2024 Torri Mendoza PA, PA Referring Provider Active Start: August 03, 2024 End: August 03, 2024 Team Status: Inactive Member Role Status Dates Dr. Harlan Ford DO Primary Care Provider Active Start: August 24, 2024 End: September 04, 2024 Torri Mendoza PA, PA Attending Provider Active Start: August 24, 2024 End: September 04, 2024 Torri Mendoza PA, PA Referring Provider Active Start: August 24, 2024 End: September 04, 2024 Team Status: Active Member Role Status Dates Dr. Harlan Ford DO Primary Care Provider Active Start: September 07, 2024 Torri Mendoza PA, PA Attending Provider Active Start: September 07, 2024 Torri Mendoza PA, PA Referring Provider Active Start: September 07, 2024 Team Status: Inactive Member Role Status Dates Dr. Harlan Ford DO Primary Care Provider Active Start: September 16, 2024 End: September 16, 2024 SIDDHARTHA Ulloa Attending Provider Active Star t: September 16, 2024 End: September 16, 2024 SIDDHARTHA Ulloa Referring Provider Active Star t: September 16, 2024 End: September 16, 2024 Team Status: Active Member Role Status Dates Dr. Harlan Ford DO Primary Care Provider Active Start: September 16, 2024 Dr. Sony López MD Attending Provider Active S tart: September 16, 2024 Team Status: Active Member Role Status Dates Dr. Harlan Ford DO Primary Care Provider Active Start: September 21, 2024 Dr. Rylan Cee DPM Attending Provider Active Start: September 21, 2024 Dr. Rylan Cee DPM Referring Provider Active Start: September 21, 2024 Team Status: Inactive Member Role Status Dates Dr. Harlan Ford DO Primary Care Provider Active Start: September 07, 2024 End: September 07, 2024 Torri CARL PA Attending Provider Active Start: September 07, 2024 End: September 07, 2024 Torri CARL PA Referring Provider Active Start: September 07, 2024 End: September 07, 2024 Team Status: Active Member Role Status Dates Dr. Harlan Ford DO Primary Care Provider Active Start: September 16, 2024 Dr. Sony López MD Attending Provider Active S tart: September 16, 2024 SIDDHARTHA Ulloa Referring Provider Active Star t: September 16, 2024 Team Status: Active Member Role Status Dates Dr. Harlan Ford DO Primary Care Provider Active Start: September 28, 2024 Dr. Rylan Cee DPM Attending Provider Active Start: September 28, 2024 Dr. Rylan Cee DPM Referring Provider Active Start: September 28, 2024 Oracle Ebs Consultant Relationship Specialty Start Date End Date Harlan Ford DO [address] [place] [address] PCP - General Family Medicine 02/19/17 Jose Osborne, YADIRA.SALES SUPPORT COORDINATOR [address] [place] [address] Bicycle I Assembler Family Medicine 06/14/24 Team Status: Inactive Member Role Status Dates Dr. Harlan Ford DO Primary Care Provider Active Start: October 06, 2024 End: October 06, 2024 Dr. Harlan Ford DO Referring Provider Active Start: October 06, 2024 End: October 06, 2024 SIDDHARTHA Ulloa Attending Provider Active Star t: October 06, 2024 End: October 06, 2024 Team Status: Inactive Member Role Status Dates Dr. Harlan Ford DO Primary Care Provider Active Start: October 06, 2024 End: October 06, 2024 SIDDHARTHA Ulloa Attending Provider Active Star t: October 06, 2024 End: October 06, 2024 SIDDHARTHA Ulloa Referring Provider Active Star t: October 06, 2024 End: October 06, 2024 Team Status: Active Member Role Status Dates Dr. Harlan Ford DO Primary Care Provider Active Start: October 09, 2024 SIDDHARTHA Ulloa Attending Provider Active Star t: October 09, 2024 SIDDHARTHA Ulloa Referring Provider Active Star t: October 09, 2024 Team Status: Active Member Role Status Dates Dr. Harlan Ford DO Primary Care Provider Active Start: October 12, 2024 Dr. Rylan Cee DPM Attending Provider Active Start: October 12, 2024 Dr. Rylan Cee DPM Referring Provider Active Start: October 12, 2024 Team Status: Active Member Role Status Dates Dr. Harlan Ford DO Primary Care Provider Active Start: October 12, 2024 Torri CARL PA Attending Provider Active Start: October 12, 2024 Torri CARL, PA Referring Provider Active Start: October 12, 2024 Team Status: Inactive Member Role Status Dates Dr. Harlan Ford DO Primary Care Provider Active Start: October 12, 2024 End: October 12, 2024 Dr. Rylan Cee DPM Attending Provider Active Start: October 12, 2024 End: October 12, 2024 Dr. Rylan Cee DPM Referring Provider Active Start: October 12, 2024 End: October 12, 2024 Team Status: Inactive Member Role Status Dates Dr. Harlan Ford DO Primary Care Provider Active Start: October 09, 2024 End: October 09, 2024 SIDDHARTHA Ulloa Attending Provider Active Star t: October 09, 2024 End: October 09, 2024 SIDDHARTHA Ulloa Referring Provider Active Star t: October 09, 2024 End: October 09, 2024 Team Status: Inactive Member Role Status Dates Dr. Harlan Ford DO Primary Care Provider Active Start: October 19, 2024 End: November 04, 2024 Torri CARL, PA Attending Provider Active Start: October 19, 2024 End: November 04, 2024 Torri M Mendoza PA, PA Referring Provider Active Start: October 19, 2024 End: November 04, 2024 Team Status: Active Member Role Status Dates Dr. Harlan Ford DO Primary Care Provider Active Start: November 20, 2024 Torri Mendoza PA, PA Attending Provider Active Start: November 20, 2024 Torri Mendoza PA, PA Referring Provider Active Start: November 20, 2024 Team Status: Inactive Member Role Status Dates Dr. Harlan Ford DO Primary Care Provider Active Start: November 24, 2024 End: November 24, 2024 Dr. Juan Campbell MD Attending Provider Active Start: November 24, 2024 End: November 24, 2024 Dr. Juan Campbell MD Referring Provider Active Start: November 24, 2024 End: November 24, 2024 Team Status: Inactive Member Role Status Dates Dr. Harlan Ford DO Primary Care Provider Active Start: December 02, 2024 End: December 02, 2024 Torri CARL, PA Attending Provider Active Start: December 02, 2024 End: December 02, 2024 Torri Mendoza PA, PA Referring Provider Active Start: December 02, 2024 End: December 02, 2024 Team Status: Inactive Member Role Status Dates Dr. Harlan Ford DO Primary Care Provider Active Start: December 11, 2024 End: December 11, 2024 Dr. Juan Campbell MD Attending Provider Active Start: December 11, 2024 End: December 11, 2024 Dr. Juan Campbell MD Referring Provider Active Start: December 11, 2024 End: December 11, 2024 Team Status: Active Member Role Status Dates Dr. Harlan Ford DO Primary Care Provider Active Start: December 15, 2024 Torri Mendoza PA, PA Attending Provider Active Start: December 15, 2024 Torri Mendoza PA, PA Referring Provider Active Start: December 15, 2024 Team Status: Inactive Member Role Status Dates Dr. Harlan Ford DO Primary Care Provider Active Start: December 23, 2024 End: December 23, 2024 Dr. Harlan Ford DO Referring Provider Active Start: December 23, 2024 End: December 23, 2024 Dr. Juan Campbell MD Attending Provider Active Start: December 23, 2024 End: December 23, 2024 [employer] Consultant Relationship Specialty Start Date End Date Harlan Ford DO [address] [place], [place] [address] PCP - General Family Medicine 02/19/17 Jose Osborne, C++ QUANT DEVELOPER.SALES SUPPORT COORDINATOR [address] [place], [place] [id number] Bicycle I Assembler Family Medicine 06/14/24 Radha Guzman, C++ QUANT DEVELOPER.SALES SUPPORT COORDINATOR [address] [place], [place] [id number] Bicycle I Assembler [facility] 12/21/24 Team Status: Active Member Role/Relationship Status Dates Dr. Harlan Ford DO Primary Care Provider Active Team Status: Inactive Member Role/Relationship Status Dates Dr. Harlan Ford DO Primary Care Provider Active Start: September 07, 2024 End: September 07, 2024 Torri CARL PA Attending Provider Active Start: September 07, 2024 End: September 07, 2024 Torri CARL PA Referring Provider Active Start: September 07, 2024 End: September 07, 2024 Team Status: Inactive Member Role/Relationship Status Dates Dr. Harlan Ford DO Primary Care Provider Active Start: September 16, 2024 End: September 16, 2024 SIDDHARTHA Ulloa Attending Provider Active Star t: September 16, 2024 End: September 16, 2024 SIDDHARTHA Ulloa Referring Provider Active Star t: September 16, 2024 End: September 16, 2024 Team Status: Active Member Role/Relationship Status Dates Dr. Harlan Ford DO Primary Care Provider Active Start: September 16, 2024 Dr. Sony López MD Attending Provider Active S tart: September 16, 2024 SIDDHARTHA Ulloa Referring Provider Active Star t: September 16, 2024 Team Status: Inactive Member Role/Relationship Status Dates Dr. Harlan Ford DO Primary Care Provider Active Start: October 06, 2024 End: October 06, 2024 Dr. Harlan Ford DO Referring Provider Active Start: October 06, 2024 End: October 06, 2024 SIDDHARTHA Ulloa Attending Provider Active Star t: October 06, 2024 End: October 06, 2024 Team Status: Inactive Member Role/Relationship Status Dates Dr. Harlan Ford DO Primary Care Provider Active Start: October 06, 2024 End: October 06, 2024 SIDDHARTHA Ulloa Attending Provider Active Star t: October 06, 2024 End: October 06, 2024 SIDDHARTHA Ulloa Referring Provider Active Star t: October 06, 2024 End: October 06, 2024 Team Status: Inactive Member Role/Relationship Status Dates Dr. Harlan Ford DO Primary Care Provider Active Start: October 09, 2024 End: October 09, 2024 SIDDHARTHA Ulloa Attending Provider Active Star t: October 09, 2024 End: October 09, 2024 SIDDHARTHA Ulloa Referring Provider Active Star t: October 09, 2024 End: October 09, 2024 Team Status: Inactive Member Role/Relationship Status Dates Dr. Harlan Ford DO Primary Care Provider Active Start: October 12, 2024 End: October 12, 2024 Dr. Rylan Cee DPM Attending Provider Active Start: October 12, 2024 End: October 12, 2024 Dr. Rylan Cee DPM Referring Provider Active Start: October 12, 2024 End: October 12, 2024 Team Status: Inactive Member Role/Relationship Status Dates Dr. Harlan oFrd DO Primary Care Provider Active Start: October 19, 2024 End: November 04, 2024 Torri CARL PA Attending Provider Active Start: October 19, 2024 End: November 04, 2024 Torri CARL PA Referring Provider Active Start: October 19, 2024 End: November 04, 2024 Team Status: Inactive Member Role/Relationship Status Dates Dr. Harlan Ford DO Primary Care Provider Active Start: November 24, 2024 End: November 24, 2024 Dr. Juan Campbell MD Attending Provider Active Start: November 24, 2024 End: November 24, 2024 Dr. Juan Campbell MD Referring Provider Active Start: November 24, 2024 End: November 24, 2024 Team Status: Inactive Member Role/Relationship Status Dates Dr. Harlan Ford DO Primary Care Provider Active Start: December 02, 2024 End: December 02, 2024 Torri CARL PA Attending Provider Active Start: December 02, 2024 End: December 02, 2024 Torri CARL PA Referring Provider Active Start: December 02, 2024 End: December 02, 2024 Team Status: Inactive Member Role/Relationship Status Dates Dr. Harlan Ford DO Primary Care Provider Active Start: December 11, 2024 End: December 11, 2024 Dr. Juan Campbell MD Attending Provider Active Start: December 11, 2024 End: December 11, 2024 Dr. Juan Campbell MD Referring Provider Active Start: December 11, 2024 End: December 11, 2024 Team Status: Inactive Member Role/Relationship Status Dates Dr. Harlan Ford DO Primary Care Provider Active Start: December 15, 2024 End: December 15, 2024 SIDDHARTHA Whittington Attending Provider Active Start: December 15, 2024 End: December 15, 2024 Torri CARL PA Referring Provider Active Start: December 15, 2024 End: December 15, 2024 Team Status: Inactive Member Role/Relationship Status Dates Dr. Harlan Ford DO Primary Care Provider Active Start: December 23, 2024 End: December 23, 2024 Dr. Harlan Ford DO Referring Provider Active Start: December 23, 2024 End: December 23, 2024 Dr. Juan Campbell MD Attending Provider Active Start: December 23, 2024 End: December 23, 2024 Team Status: Inactive Member Role/Relationship Status Dates Dr. Harlan Ford DO Primary Care Provider Active Start: October 06, 2024 End: October 06, 2024 Dr. Harlan Ford DO Referring Provider Active Start: October 06, 2024 End: October 06, 2024 SIDDHARTHA Ulloa Attending Provider Active Star t: October 06, 2024 End: October 06, 2024 Team Status: Inactive Member Role/Relationship Status Dates Dr. Harlan Ford DO Primary Care Provider Active Start: October 06, 2024 End: October 06, 2024 SIDDHARTHA Ulloa Attending Provider Active Star t: October 06, 2024 End: October 06, 2024 SIDDHARTHA Ulloa Referring Provider Active Star t: October 06, 2024 End: October 06, 2024 Team Status: Inactive Member Role/Relationship Status Dates Dr. Harlan Ford DO Primary Care Provider Active Start: October 09, 2024 End: October 09, 2024 SIDDHARTHA Ulloa Attending Provider Active Star t: October 09, 2024 End: October 09, 2024 SIDDHARTHA Ulloa Referring Provider Active Star t: October 09, 2024 End: October 09, 2024 Team Status: Inactive Member Role/Relationship Status Dates Dr. Harlan Ford DO Primary Care Provider Active Start: October 12, 2024 End: October 12, 2024 Dr. Rylan Cee DPM Attending Provider Active Start: October 12, 2024 End: October 12, 2024 Dr. Rylan Cee DPM Referring Provider Active Start: October 12, 2024 End: October 12, 2024 Team Status: Inactive Member Role/Relationship Status Dates Dr. Harlan Ford DO Primary Care Provider Active Start: October 19, 2024 End: November 04, 2024 Torri CARL PA Attending Provider Active Start: October 19, 2024 End: November 04, 2024 Torri CARL PA Referring Provider Active Start: October 19, 2024 End: November 04, 2024 Team Status: Inactive Member Role/Relationship Status Dates Dr. Harlan Ford DO Primary Care Provider Active Start: November 24, 2024 End: November 24, 2024 Dr. Juan Campbell MD Attending Provider Active Start: November 24, 2024 End: November 24, 2024 Dr. Juan Campbell MD Referring Provider Active Start: November 24, 2024 End: November 24, 2024 Team Status: Inactive Member Role/Relationship Status Dates Dr. Harlan Ford DO Primary Care Provider Active Start: December 02, 2024 End: December 02, 2024 Torri CARL PA Attending Provider Active Start: December 02, 2024 End: December 02, 2024 Torri CARL PA Referring Provider Active Start: December 02, 2024 End: December 02, 2024 Team Status: Inactive Member Role/Relationship Status Dates Dr. Harlan Ford DO Primary Care Provider Active Start: December 11, 2024 End: December 11, 2024 Dr. Juan Campbell MD Attending Provider Active Start: December 11, 2024 End: December 11, 2024 Dr. Juan Campbell MD Referring Provider Active Start: December 11, 2024 End: December 11, 2024 Team Status: Inactive Member Role/Relationship Status Dates Dr. Harlan Ford DO Primary Care Provider Active Start: December 15, 2024 End: December 15, 2024 SIDDHARTHA Whittington Attending Provider Active Start: December 15, 2024 End: December 15, 2024 SIDDHARTHA Whittington Referring Provider Active Start: December 15, 2024 End: December 15, 2024 Team Status: Inactive Member Role/Relationship Status Dates Dr. Harlan Ford DO Primary Care Provider Active Start: December 23, 2024 End: December 23, 2024 Dr. Harlan Ford DO Referring Provider Active Start: December 23, 2024 End: December 23, 2024 Dr. Juan Campbell MD Attending Provider Active Start: December 23, 2024 End: December 23, 2024 Team Status: Active Member Role/Relationship Status Dates Dr. Harlan Ford DO Primary Care Provider Active Start: January 19, 2025 SIDDHARTHA Whittington Attending Provider Active Start: January 19, 2025 SIDDHARTHA Whittington Referring Provider Active Start: January 19, 2025 Team Status: Inactive Member Role/Relationship Status Dates Dr. Harlan Ford DO Primary Care Provider Active Start: January 25, 2025 End: January 25, 2025 Dr. Harlan Ford DO Referring Provider Active Start: January 25, 2025 End: January 25, 2025 Dr. Sony López MD Attending Provider Active S tart: January 25, 2025 End: January 25, 2025 Goals (unrecognized section and content) Goals may be documented in a n alternate section FOR RECORDS PERTAINING TO PATIENTS WHO ARE [...] BE BASED ON THE PRIMARY CLINICAL RECORDS. [employer] provides no warranty or guarantee of the accuracy or completeness of information in this document.
--- OUTSIDE RECORDS SUMMARY | 2025-02-01 23:36 | XMS RPT_ITS | CCD ---
Author Organization [facility] CliniSyia Care Team Providers Care Polytechnic Teacher Name Role Phone HARLAN FORD DO Primary Care Physician Harlan Ford DO Primary Care Provider Harlan Ford DO Primary Care Provider Dr. Harlan Ford Primary Care Provider Dr. Harlan Ford Referring Provider Dr. Sony López Attending Provider 1([facility])-[phone] Sony López Admit Provider Dr. Sony López Referring Provider [phone] Sony López Other Provider Dr. Sony Roberts Other Provider Dr. Harlan Ford Primary Care Provider Dr. Harlan Ford Referring Provider Dr. Sony López Attending Provider 1([facility])-[phone] Parvez Thornton Emergency Provider Dr. Manan Mendosa Admit Provider Dr. Manan Mendosa Attending Provider Dr. Manan Mendosa Other Provider Dr. Harlan Ford Primary Care Provider Dr. Phil Cochran Attending Provider Teressa Wetzel Other Provider Unavailable Dr. Phil Cocrhan Other Provider Dr. Carrillo Reese Other Provider Dr. Clint Chen Other Provider Unavailable Dr. Prieto Shah Other Provider Dr. Xavier Hu Other Provider Dr. Sony Coyne Other Provider Dr. Eligio Barger Other Provider Dr. Paul Powell Other Provider Dr. Dora Mcnair Other Provider Dr. Radha Yang Other Provider Dr. Gilson Antunez Other Provider Dr. Heladio Santizo Other Provider Dr. Thomas Rocha Other Provider Roof CASTER OPERATOR, CASTER OPERATOR-C Bubba Morley Other Provider Morales CASTER OPERATOR, CASTER OPERATOR-C Teressa Other Provider SIDDHARTHA Chen Other Provider [...] Harlan Ford DO Primary Care Provider Malik E COMMERCE DIRECTOR.SHOP FOREMAN, Ida Connolly Unavailable Ursula E COMMERCE DIRECTOR.SHOP FOREMAN, Jose Unavailable Logan BIGGS, Dr. Claros Primary Care Provider Torri Chen Attending Provider Torri Chen Referring Provider Nellie Stein Attending Provider Nellie Stein Referring Provider Maribel ASIF, Dr. Cardoza Attending Provider Coleman DPM, Dr. Fagan Attending Provider Coleman DPM, Dr. Fagan Referring Provider Logan BIGGS, Dr. Claros Primary Care Provider [phone] Torri Chen Attending Provider Torri Chen Referring Provider Coleman DPM, Dr. Fagan Attending Provider [place] DPM, Dr. Fagan Referring Provider Logan BIGGS, Dr. Claros Referring Provider Coleman DPM, Dr. Fagan Attending Provider Coleman DPM, Dr. Fagan Referring Provider Dr. Harlan Ford DO Primary Care Provider [phone] Torri Chen Attending Provider Torri Chen Referring Provider Dr. Juan Campbell MD Attending Provider Dr. Juan Campbell MD Referring Provider Dr. Harlan Ford DO Primary Care Provider [phone] Torri Chen Attending Provider Torri Chen Referring Provider Dr. Harlan Ford DO Primary Care Provider Torri Chen Attending Provider [phone] Torri Chen Referring Provider [phone] Radha Guzman APRN.CNP Unavailable FORD, HARLAN L Primary Care Unavailable FORD, HARLAN L Attending Unavailable FORD, HARLAN L Primary Care Unavailable FORD, HARLAN L Referring Unavailable FORD, HARLAN L Primary Care Unavailable DIA GAN Referring Unavailabl e FORD, HARLAN L [...] FordDr. Harlan rubio DO Primary Care Provider Nellie Stein Attending Provider Nellie Stein Referring Provider [phone] Torri Chen Attending Provider [phone] Torri Chen Referring Provider [phone] Dr. Sony López MD Attending Provider Torri Chen Referring Unavail able Ford, Harlan [...] Unavailable Ford, Harlan Primary Care Unavailable Ford, [place] Primary Care Unavailable Torri Chen Attending Unavail able Torri Chen Referring Unavail able Nellie Morris Attending Unavailable MorrisNellie diallo Referring Unavailable Ford, Harlan Primary Care Unavailable Torri Chen Attending Unavail able Torri Chen Referring Unavail able Ford, [place] Primary Care Unavailable Ford, [place] Primary Care Unavailable Torri Chen Attending Unavail able Torri Chen Referring Unavail able Juan Campbell Referring Unavailable Juan Campbell Attending Unavailable Ford, [place] Primary Care Unavailable Adrian, Juan Referring Unavailable Juan Campbell Attending [facility] Unavailable Torri Chen Referring Unavail able Ford, [place] Primary Care Unavailable Torri Chen Attending Unavail able Torri Chen Referring Unavail able Ford, [place] Primary Care Unavailable Torri Chen Attending Unavail able Torri Chen Referring Unavail able Ford, Harlan Primary Care Unavailable Torri Chen Attending Unavail able Ford, [place] Primary Care Unavailable Torri Chen Referring Unavail able Torri Chen Attending Unavail able Torri Chen Referring Unavail able Ford, [place] Primary Care Unavailable Torri Chen Attending Unavail able Rylan Cee Referring Unavailable Rylan Cee Attending Unavailable Ford, [place] Primary Care Unavailable Ford, [place] Primary Care Unavailable Torri Chen Attending Unavail able Torri Chen Referring Unavail able Nellie Morris Referring Unavailable Nellie Morris Attending Unavailable [place], [place] Primary Care Unavailable Ford, [place] Primary Care Unavailable Torri Chen Attending Unavail able Torri Chen Referring Unavail able Allergies Allergy Classification Reported Allergen(s) Allergy Type Date of Onset Reaction(s) Facility (20 sources) pregabalin; Translations: [pregabalin] Drug Allergy 06-20-201 1 Other: See Comments, Cough [facility] Comment on above: COUGH (1 source) pregabalin Drug Allergy 5 [facility] Repository Medications Current Medications Medication Drug Class(es) [...] delicia two times a day with meals. Zchfoamrppm-Sybjylhkj-Qmc C-Mn (Glucosamine Chondroitin Maxstr) 500-400 mg Capsule (20 sources) Start: 09-06-2022 Vocsitpgxcq-Pwphlelzp-Wc t C-Mn (Glucosamine Chondroitin Maxstr) 500-400 mg Capsule Active 1 NMA PO DAILY September 06, 2022 1:00am SUPPLEMENT Start: 09-06-2022 Glucosamine-Ch ondroit-Vit C-Mn (Glucosamine Chondroitin Maxstr) 500-400 mg Capsule Active 1 NMA PO DAILY September 06, 2022 1:00am Start: 09-06-2022 take 1 capsule by [facility] once daily Jdnpcyekfgo-Mjzwrbrwe-Frb C-Mn (Glucosamine Chondroitin Maxstr) 500-400 mg Capsule Active 1 CAP PO DAILY September 06, 2022 12:00am Start: 09-06-2022 take 1 capsule by [facility] once daily Xmayefnmjbg-Qwfkrvrlk-Enf C-Mn (Glucosamine Chondroitin Maxstr) 500-400 mg Capsule Active 1 CAP PO DAILY September 06, 2022 1:00am Start: 09-06-2022 take 1 capsule by [facility] once daily Mdcygwnjjnf-Qfipjmkqb-Fhp C-Mn (Glucosamine Chondroitin Maxstr) 500-400 mg Capsule [...] or infection). 30 g 1 11/26/2023 Active Parkman-3 350 mg oral capsule (3 sources) Start: 08-18-2021 Parkman-3 350 mg oral capsule Dose : 350 [...] 2025 2:08pm Take two 2mg (4mg) on Stkz-Atq-Ykmgh-Sat and one pill (2mg) on Sat/Sat/Saturday Please [...] Comment on above: Take 1 capsule by [facility] once daily. Gsdnmgnmczs-Jxzgoxbur-Vgq C-Mn (GLUCOSAMINE CHONDROITIN MAXSTR) 500-400 mg ORAL Cap (1 source) Start : 04-14 take 1 tablet by mouth once daily Spwfhcmgvos-Srfteugeg-Tx t C-Mn (GLUCOSAMINE CHONDROITIN MAXSTR) 500-400 mg [...] Comment on above: Take 1 capsule by [facility] once daily. ketoconazole 20 mg/ml medicated shampoo [...] Comment on above: Take 1 tablet by [facility] once daily. Magnesium (20 sources) [...] Comment on above: Take 1 tablet by [facility] once daily. tamsulosin hydrochloride 0.4 [...] on above: Take 1,000 mcg by mo [facility] once daily. vitamin b6 50 mg oral [...] sources) Long-term current use of anticoagulant; Translations: [FCI (current) use of anticoagulants] 07-23-2023 Episodic Other aftercare (2 sources) roasterman (current) use of anticoagulants; Translations: [roasterman (current) use of anticoagulants] Onset: 01-05-2025 Episodic [...] 01-27-2025 FINGERSTICK GLU 158 mg/dL High 74-106 [facility] Comment on above: Result Comment: LINDA GUTIÉRREZ OF PATIENT CARE PER NURSING PROTOCOL Performed By: #### L 501.080 #### [facility] Laboratory [address] [place], [address] Discharge Instructionon 01-06 Discharge Instruction [facility] Medical Records Department [address] [place] [address] Instructions for Home/Discharge Instructions 01/27/25 1623 MR#: [id number] Acct: [id number] Name: LRAA TAPIA Rep #: [id number] : 1945 79 From: Juan Campbell MD PCP: Dr. Harlan Ford, DO Status:[facility] Discharge Instructions Diet Discharge Diet: No restrictions [...] Up Care Please Follow Up With: Juan Campbell MD When: 10-14 days postop Test Results: Test results from this visit will be discussed in further detail at your follow-up appointment, if applicable. Discharge Plan Admission Primary Reason for Your Visit: Neck mass biopsy Attending Provider: Juan Campbell Primary Care Provider: Harlan Ford Instructions Additional Instructions / Restrictions: Please resume warfarin in 48 hours post procedure Print Language: Frisian Discharge Orders/Prescriptions Prescriptions: Continued magnesium oxide 500 mg capsule 500 mg PO DAILY simvastatin 20 mg tablet 20 mg PO DAILY clobetasol [Temovate] 0.05 % ointment 1 applic topical DAILY losartan 50 mg tablet 50 mg PO QDAY gabapentin 300 mg Capsule 900 mg PO TID glimepiride 4 mg Tablet 4 mg PO BID uejowvjqfok-yscpkeolx-jwm C-Mn [Glucosamine Chondroitin MaxStr] 500-400 mg Capsule [...] MD CC: Dr. Harlan Ford DO Signed [facility] MR/POSTOP.[facility] 01-27-2025 MR/POSTOP.[facility] Medical Records Department [address] [place] [address] Anesthesia Postop Eval I 01/27/25 1506 MR#: [id number] Acct: [id number] Name: LARA TAPIA Rep #: [id number] : 1945 79 From: Juan Holliday CRNA PCP: Dr. Harlan Ford DO Status:REG SDC Y Race: C Location: [place] [address] Anesthesia: Postop Eval I Current Vital Signs [...] Holliday CRNA Cosigner Signature: Date CC: Signed [facility] MR/[id number] 01-27-2025 MR/POSTOPAN2 [facility] Medical Records Department [address] [place] [address] Anesthesia Postop Eval II 01/27/251910 MR#: [id number] Acct: [id number] Name: LARA TAPIA Rep #: [id number] : 1945 79 From: Jaquelin Frazier CRNA PCP: Dr. Harlan Ford, DO Status:[facility] Y Race: C Location: [facility] Anesthesia Postop Eval I Sum Postop Eval Completion status Anesthesia document: Postop Eval 1 completed: Yes Anesthesia Postop Eval I Summary Anesthesia Postop Eval I Summary: Anesthesia Postop Eval I: Assessment Summary Airway patent Yes 01/27/25 15:06 NAVAL SCIENCE TEACHER.PKEL Spontaneous unlabored Yes 01/27/25 15:06 NAVAL SCIENCE TEACHER.PKEL respirations Mental status Awake,Calm 01/27/25 15:06 NAVAL SCIENCE TEACHER.PKEL nausea No 01/27/25 15:06 NAVAL SCIENCE TEACHER.PKEL Vomiting No 01/27/25 15:06 NAVAL SCIENCE TEACHER.PKEL Anesthesia Postop Eval I: Fluid Summary Crystalloid volume administer 1,400 01/27/25 15:06 NAVAL SCIENCE TEACHER.PKEL (ml) Colloids volume administered ( ml) Blood Product volume administered (ml) Total IV fluid infused 1,400 01/27/25 15:06 NAVAL SCIENCE TEACHER.PKEL Anesthesia Postop Eval I: Summary Notes Anesthesia Complication No 01/27/25 15:06 NAVAL SCIENCE TEACHER.PKEL Anesthesia Complication Comment: Post-operative progress note Anesthesia: Postop Eval II Evaluation Mental status: Awake Pain Level: 2 nausea: No Vomiting: No 01/27/251910 Date Jaquelin Deleonigner Signature: Date CC: Signed Normal [facility] Operative Reporton Operative Report [facility] Medical Records Department [address] [place] [address] Operative Report 01/27/25 1455 MR#: [id number] Acct: [id number] Name: LARA TAPIA Rep #: [id number] : 1945 79 From: Juan Campbell MD PCP: Dr. aHrlan Ford, DO Status:[facility] Location: [facility] Operative Report (Standard) Operative Information Date of Procedure: 01/27/25 Pre-Operative Diagnosis: Left neck mass Post-Operative Diagnosis: Left neck adenopathy Surgery/Procedure Performed: Excisional biopsy of left neck mass deck engineer: Yes Experimental Plastics Fabricator: Sony López Tasks completed by or assistant: Opening, Dissecting tissue, Hemostasis: Electrocautery and Retracting Additional fire control assistant?: Yes Additional Leather Toggler #2: Lea Viera Tasks completed by fire control assistant #2: Closing Type of Anesthesia: General/Supplemental [...] to be sure the surgical specimen was healthcare representative. Through this discussion and discussion with [...] small sectio (more content not included)... Normal [facility] Prothrombin Time w/INRon INR Coag (PPP) [Relative time] 2.3 {INR} Normal [facility] Comment on above: Performed By: #### L 300.3900 #### [facility] Laboratory [address] [place], [place], [address] PT Coag (PPP) [Time] 25.7 s High 11.7-14.9 [facility] Comment on above: Performed By: #### L 300.3900 #### [facility] Laboratory [address] [place], [place], [address] Protime w/INR Fingerstickon 01-27-2025 INR Coag (PPP) [Relative time] 2.1 {INR} Normal [facility] Comment on above: Result Comment: Crit ical Value > 4.0 Performed By: #### L 9200.0000 #### [facility] Laboratory [address] [place], [place], [address] Protime Coagsen 23.2 SEC High 11.7-14.9 [facility] Comment on above: Performed By: #### L 9200.0000 #### [facility] Laboratory [address] [place], [place], [address] Surgery Specimen Level IIIon 01-27-2025 Surgery Specimen Level III Patient Age/Sex Location Account Attending Physician LARA TAPIA 79/M [facility] [id number] Dr. Juan Campbell MD Specimen: [id number] Received: 01/27/25 Status: MARCOS Barrera Num: [id number] Spec Type: LYMPH NODE Subm Dr: Dr. [...] Final diagnosis is pending formal consultation at [facility] and a separate report will follow. B. Lymph node, neck, left, level 3, excision: - Lymphoid tissue present per touch prep. - Tissue sample sent for flow cytometry. - Final diagnosis is pending formal consultation at [facility] and a separate report will follow. C. Neck, left, mass, incisional biopsy: - Abnormal cellularity per touch prep - Tissue sample sent for flow cytometry. - IHC for pankeratin is negative for evidence of metastatic carcinoma. - Final diagnosis is pending formal consultation at [facility] and a separate report will follow. COMMENT Dr Campbell's office was notified of send out to [facility] for formal consultation and extended ibzt-hzuvae-dixf to be expected, by Christiano Monroy 01/28/2025. MICROSCOPIC DESCRIPTION Slides are reviewed. Patient Age/Sex Location Account Attending Physician LARA TAPIA 79/M [facility] [id number] Dr. Juan Campbell MD GROSS DESCRIPTION A. [...] ancillary studies. Entirely submitted in 2 cassettes. [place] 01/27/2025 CPT:61809g1,50565 Patient Age/Sex Location Account Attending Physician LARA TAPIA 79/M [facility] [id number] Dr. Juan Campbell MD Signed (signature on file) Dr. Maria De Jesus Wild MD 01/28/25 1333 Normal [facility] Comment on above: Performed By: #### P SUIII ####[facility] [address] [place], [place], [address] MR/BMSBk 01-25-2025 MR/BMS.BVS [facility] Vascular Surgery [address] [place], [place] [address] OFFICE VISIT Date of Service: 01/25/25 MR#: [id number] Acct: [id number] Name: LARA TAPIA Rep #: [id number] : 1945 Provider: Dr. Sony López MD Age/Sex: 79/M Location: [facility] Status: Signed Intake Vital [...] PO BID DIABETES 09/06/22 07/2 08/01 History mjecfdftudn-gviwkphky-xza C-Mn 500 1 cap PO DAILY SUPPLEMENT [...] No an (more content not included)... Normal [facility] International normalized rat io (INR) calculationOrdered By: Torri Mendoza on 01-19-2025 INR Coag (Bld) [Relative time] 2.6 {INR} [facility] Prothrombin Time w/INRon INR Coag (PPP) [Relative time] 2.6 {INR} Normal [facility] Comment on above: Performed By: #### L 300.3900 ####[facility] [address] [place], [place], [id number] PT Coag (PPP) [Time] 28.5 s High 11.7-14.9 [facility] Comment on above: Performed By: #### L 300.3900 ####[facility] [address] [place], [place], [id number] Prothrombin timeOrdered By: Torri Mendoza on 01-19-2025 PT Coag (PPP) [Time] 28.5 s High 11.7-14.9 [facility] MR/PATCyril 01-13-2025 MR/PAT.[facility] Medical Records Department [address] [place] [address] PAT - Anesthesia 01/13/25 1613 MR#: [id number] Acct: [id number] Name: LARA TAPIA Rep #: [id number] : 1945 79 From: Tyson Ruby MD PCP: Dr. Harlan Ford, DO Status:PRE SDC Y Race: C Location: [facility] Pre-Assessment Diagnosis/Proposed Procedure Planned Operative Procedure(s): (L) Excision, Lymph Node left cervical with frozen section Anesthesia History Anesthesia History - communications senior associate: Anesthesia History - communications senior associate Hx Hospitalization No 01/13/25 14:32 Any Problems [...] take am of surgery PONV PONV - communications senior associate: PONV - communications senior associate Female No 01/13/25 14:32 HX of Motion [...] 12/23/24 08:28 Respiratory Assessment Respiratory Assessment - communications senior associate: Respiratory Tract Infection Hx - communications senior associate Hx Respiratory Tract Infection No 01/13/25 14:32 STOP Sleep Apnea STOP Sleep Apnea - communications senior associate: STOP Sleep Apnea - communications senior associate Hx Hypertension No 01/13/25 14:32 Hx Sleep [...] Tobacco Use History Tobacco Use History - communications senior associate: Tobacco Use History - communications senior associate Tobacco Use Smoking Status Never smoker 01/13/25 14:32 Hx Tobacco Use No 01/13/25 14:32 Years Smoking Packs Smoked per Day Smoking Cessation Date was within the last 15 years Hx Smoking Cessation Date Hx Smoking Cessation Counseling Hematologic Medial History Hematologic Hx - communications senior associate: Hematologic Medical Hx - pin setter Hx of Blood Transfusion No 01/13/25 14:32 [...] confused, unrespo /Reproduction History /Reproductive History - communications senior associate: /Reproductive Hx- communications senior associate Hx Now No 01/13/25 14:32 Gestational Age [...] 4 mg PO BID DIABETES 09/06/2201/05 History vuldsoqyejk-alepobctc-ngo C-Mn 500 1 cap PO DAILY SUPPLEMENT 01/23/23 History mg-400 mg capsule (Gluc (more content not included)... Normal [facility] Prothrombin Time w/INRon INR Coag (PPP) [Relative time] 4.1 {INR} Invalid Interpretation Code [facility] Comment on above: Order Comment: CRITI KHOI VALUE CALLED TO [id number]/08/25 1110 Meredith Quintana.RESULTS READ BACK BY PHILL. Performed By: #### L 9200.0000 #### [facility] Laboratory [address] [place], [place], [id number] PT Coag (PPP) [Time] 40.9 s High 11.7-14.9 [facility] Comment on above: Order Comment: CRITI KHOI VALUE CALLED TO WDZJCA77/08/25 1110 Meredith Mariano.RESULTS READ BACK BY PHILL. Performed By: #### L 9200.0000 #### [facility] Laboratory [address] [place], [place], [address] Surgery Visit Reporton 12-23 Surgery Visit Report [facility] [address] [place], [place] [address] OFFICE VISIT Date of Service: 12/23/24 MR#: [id number] Acct: [id number] Name: LARA TAPIA Rep #: [id number] [...] IN OR Chief Complaint: enlarged lymph nodes Patching Machine Operator Required: No Is patient in pain?: No Allergies pregabalin (From Lyrica) Adverse Reaction (Verified 12/23/24 08:28) Other Medications ???Medication ???Instructions ???Recorded ???Confirmed ???Type cyanocobalamin (vitamin B-12) 1,000 mcg PO DAILY SUPPLEMENT 08/3012/23/24 History 1,000 mcg tablet (Vitamin B-12) gabapentin 300 mg capsule 900 mg PO TID PAIN 09/06/22 History glimepiride 4 mg tablet 4 mg PO BID DIABETES 09/06/2212/06 History kmluhnftkdu-ogzglfhja-cqm C-Mn 500 1 cap PO DAILY SUPPLEMENT [...] and No (more content not included)... Normal [facility] CNOVon 12-22-2024 CNOV Office Visit (FAMPWS ) -- TAPIALARA Steiner ([id number]) 1945 M Date Time Provider Department 12/22/24 10:00 AM [facility] During your visit today, we recorded the following information about you: Temperature Pulse Respiration Blood pressure 96.4 degrees 60/minute 16/minute 120/68 Weight Height 88.9 kg 1.73 m Harlan Ford DO 12/23/2024 7:12 AM Signed Lara Steiner Willie is a 78 year old male [...] - has been seen by speicalist at [facility]- unsure next steps will d/w speciliast this [...] was 6.4% six months ago. - Ordered mtnyo-tj-pmxr HbA1c test to assess current glycemic control. - Continue current diabetes management regimen. 2. Acute cystitis with hematuria (N30.01) 3. Other polyneuropathy (G62.89) - Neuro (more content not included)... Normal [facility] HEMOGLOBIN A1C (POC)on 12-22 HbA1c (Bld) [Mass fraction] 6.5 % Abnormal 4.3 - 5.6 % [facility] Comment on above: Location:[address], [place], [address] Point of care (POC) Hemoglobin A1c (HGBA1C) [...] specific diabetes management situations: The POC device refuse driver provides a normal range of 4.2% to 6.5% for the HGBA1C POC test. However, the [place] [employer] guidelines indicate that patients with [...] Interpretation and review of laboratory results Abnormal [facility] normalized rat io (INR) calculationOrdered By: Torri Mendoza on 12-15-2024 INR Coag (Bld) [Relative time] 2.8 {INR} [facility] Prothrombin Time w/INRon INR Coag (PPP) [Relative time] 2.8 {INR} Normal [facility] Comment on above: Performed By: #### L 9200.0000 #### [facility] Laboratory [address] [place], [place], [address] PT Coag (PPP) [Time] 30.2 s High 11.7-14.9 [facility] Comment on above: Performed By: #### L 9200.0000 #### [facility] Laboratory [address] [place], [place], [address] Prothrombin timeOrdered By: Torri Mendoza on 12-15-2024 PT Coag (PPP) [Time] 30.2 s High 11.7-14.9 [facility] Head/Neck Soft Tissueon Head/Neck Soft Tissue [facility] Services [address] [place] [address] Head/Neck Soft Tissue MR#: [id number] Acct: [id number] Name: LARA TAPIA Rep #: [id number] : 1945 M 78 From: Uriel lazo MD PCP: Dr. Harlan Ford, DO Status: [facility] Study: Head/Neck Soft Tissue Date of Exam: 12/11/24 Exam# [id number] Ordering Dr: Juan Campbell MD PROCEDURE: HEAD/NECK [...] since the prior CT scan. Reading Location: [place] [address] CC: Dr. Harlan Ford, ; Dr. Juan Campbell MD Top Cager: Signed Normal [facility] Prothrombin Time w/INRon INR Coag (PPP) [Relative time] 2.5 {INR} Normal [facility] [facility] Comment on above: Performed By: #### L 9200.0000 #### [facility] Laboratory [address] [place], [address] PT Coag (PPP) [Time] 27.4 s High 11.7-14.9 [facility] Comment on above: Performed By: #### L 9200.0000 #### [facility] [address] [place], [address] International normalized rat io (INR) calculationOrdered By: Torri Mendoza on 12-02-2024 INR Coag (Bld) [Relative time] 2.4 {INR} [facility] Prothrombin Time w/INRon INR Coag (PPP) [Relative time] 2.4 {INR} Normal [facility] Comment on above: Performed By: #### L 9200.0000 #### [facility] [address] [place], [place], [address] PT Coag (PPP) [Time] 26.7 s High 11.7-14.9 [facility] Comment on above: Performed By: #### L 9200.0000 #### [facility] [address] [place], [place], [phone] Prothrombin timeOrdered By: Torri Mendoza on 12-02-2024 PT Coag (PPP) [Time] 26.7 s High 11.7-14.9 [facility] CREATININE FINGERSTICKon Creatinine [Mass/Vol] 1.1 mg/dL Normal 0.70-1.30 [facility] Comment on above: Performed By: #### L 9100.0200 #### [facility] [address] [place], [place], [address] EGFR WB > 60.0000 Normal >60 [facility] Comment on above: Performed By: #### L 9100.0200 #### [facility] [address] [place], [place], [address] Creatinine measurement at be dsideOrdered By: Juan Campbell on 11-24-2024 Creatinine [Mass/Vol] 1.1 mg/dL 0.70-1.30 [facility] EGFROrdered By: Juan quintana on 11-24-2024 GFR/1.73 sq M.predicted among non-blacks MDRD (S/P/Bld) [Vol rate/Area] mL/min/{1.73_m2} >60 [facility] Soft Tissue Neck WITH Contra ston 11-24-2024 Soft Tissue Neck WITH Contrast [facility] Imaging Services [address] [place], [place] [address] Soft Tissue Neck WITH Contrast MR#: [id number] Acct: [id number] Name: LARA TAPIA Rep #: [id number] : 1945 M 78 From: Demarco caceres MD PCP: Dr. Harlan Ford DO Status: REG CLI Study: Soft Tissue Neck WITH Contrast Date of Exam: 0 11/24/24 Exam# [id number] Ordering Dr: Juan Campbell MD PROCEDURE: SOFT [...] aspect of the parotid gland. Reading Location: [place] [address] CC: Dr. Harlan Ford DO; Dr. Juan Campbell MD Top Cager: Signed Normal [facility] International normalized rat io (INR) calculationOrdered By: Torri Mendoza on 11-20-2024 INR Coag (Bld) [Relative time] 3.5 {INR} [facility] Prothrombin Time w/INRon INR Coag (PPP) [Relative time] 3.5 {INR} Normal [facility] Comment on above: Performed By: #### L 9200.0000 #### [facility] [address] [place], [address] PT Coag (PPP) [Time] 35.6 s High 11.7-14.9 [facility] Comment on above: Performed By: #### L 9200.0000 #### [facility] [address] [place], [address] Prothrombin timeOrdered By: Torri Mendoza on 11-20-2024 PT Coag (PPP) [Time] 35.6 s High 11.7-14.9 [facility] International normalized rat io (INR) calculationOrdered By: Torri Mendoza on 10-19-2024 INR Coag (Bld) [Relative time] 2.2 {INR} [facility] Prothrombin Time w/INRon INR Coag (PPP) [Relative time] 2.2 {INR} Normal [facility] Comment on above: Performed By: #### L 9200.0000 #### [facility] [address] [place], [address] PT Coag (PPP) [Time] 24.6 s High 11.7-14.9 [facility] Comment on above: Performed By: #### L 9200.0000 #### [facility] [address] [place], [address] Prothrombin timeOrdered By: Torri Mendoza on 10-19-2024 PT Coag (PPP) [Time] 24.6 s High 11.7-14.[address] [facility] International normalized rat io (INR) calculationOrdered By: Torri Mendoza on 10-12-2024 INR Coag (Bld) [Relative time] 1.3 {INR} [facility] PT D/C Summary (1)on 025 PT D/C Summary (1) [facility] [address] [place] [address] / REHABILITATION SERVICES DISCHARGE SUMMARY MR#: [id number] Acct: [id number] Name: LARA TAPIA Rep #: [id number] : 1945 78 From: Thao Aguero MPT [...] please feel free to call me at [phone]. Thank you for the referral of this patient. Sincerely, Thao Aguero, MPT Balance/Gait/Functional tests Balance/Special Test Scores Functional Gait Assessment Score: 7 % Disability: 76.6700 CATSIB Score (Max score 120 seconds): 82 Lower Extremity Functional Score: 38 Quick DASH Score: 34.0900 Improvement % Improvement: 50 10/12/24 1111 CC: COMFORT Cee; Dr. Harlan Ford, Signed Normal [facility] Prothrombin Time w/INRon INR Coag (PPP) [Relative time] 1.3 {INR} Normal [facility] Comment on above: Performed By: #### L 300.3900 #### [facility] [address] [place], [place], [id number] PT Coag (PPP) [Time] 16.8 s High 11.7-14.9 [facility] Comment on above: Performed By: #### L 300.3900 #### [facility] [address] [place], [place], [address] Prothrombin timeOrdered By: Torri Mendoza on 10-12-2024 PT Coag (PPP) [Time] 16.8 s High 11.7-14.9 [facility] Thyroidon 10-09-2024 Thyroid [facility] Imaging Services [address] [place] [address] Thyroid MR#: [id number] Acct: [id number] Name: LARA TAPIA Rep #: [id number] : 1945 M 78 From: Luz Patel nd, MD PCP: Dr. Harlan Ford DO Status: REG CLI Study: Thyroid Date of Exam: 10/09/24 Exam# [id number] Ordering Dr: Nellie Morris PROCEDURE: THYROID 10/09/2024 [...] evaluation if not recently performed. Reading Location: [facility] CC: SIDDHARTHA Ulloa; Dr. Harlan Ford DO Top Cager: Signed Normal [facility] Anion gap in Serum or Plasma Ordered By: Nellie Morris on 10-06-2024 Anion gap [Moles/Vol] 11 mmol/L 5-15 [facility] BUN/creatinine ratioOrdered By: Nellie Morris on 10-06-2024 Urea nitrogen/Creatinine [Mass ratio] 18.9 mg/mg 10-20 [facility] Bilirubin, totalOrdered By: Nellie Morris on 10-06-2024 Bilirubin [Mass/Vol] 1.20 mg/dL 0.00-1.30 [facility] Carbon dioxide, total [Moles /volume] in Central venous bloodOrdered By: Nellie Morris on 10-06-2024 CO2 [Moles/Vol] 25.1 mmol/L 21.0-32.0 [facility] Chloride assayOrdered By: Vic Morris on 10-06-2024 Chloride [Moles/Vol] 103 mmol/L 98-108 [facility] Comprehensive Metabolic Prof ilon 10-06-2024 Albumin [Mass/Vol] 4.0 g/dL Normal 3.4-4.8 [facility] Comment on above: Performed By: #### L 501.9520, L500.4050 ####[facility] [address] [place], [address] Albumin/Globulin [Mass ratio] 1.6 {ratio} Normal 0.9-2.4 [facility] Comment on above: Performed By: #### L 501.9520, L500.4050 ####[facility] [address] [place], [address] ALK PHOS 52 U/L Normal 40-129 [facility] Comment on above: Performed By: #### L 501.9520, L500.4050 ####[facility] [address] [place], [address] ALT [Catalytic activity/Vol] 25 U/L Normal <=46 [facility] Comment on above: Performed By: #### L 501.9520, L500.4050 ####[facility] [address] [place], [address] AST [Catalytic activity/Vol] 40 U/L High <=37 [facility] Comment on above: Result Comment: Hemo lysis present, Results??could be affected. ?? Performed By: #### L 501.9520, L500.4050 ####[facility] [address] [place], [address] Bilirubin [Mass/Vol] 1.20 mg/dL Normal 0.00-1.30 [facility] Comment on above: Performed By: #### L 501.9520, L500.4050 ####[facility] [address] [place], [address] BUN/CRE 18.9 RATIO Normal 10-20 [facility] Comment on above: Performed By: #### L 501.9520, L500.4050 ####[facility] [address] [place], [address] Calcium [Mass/Vol] 9.3 mg/dL Normal 7.6-11.0 [facility] Comment on above: Performed By: #### L 501.9520, L500.4050 ####[facility] [address] [place], [address] Chloride [Moles/Vol] 103 mmol/L Normal 98-108 [facility] Comment on above: Performed By: #### L 501.9520, L500.4050 ####[facility] [address] [place], [address] CO2 [Moles/Vol] 25.1 mmol/L Normal 21.0-32.0 [facility] Comment on above: Performed By: #### L 501.9520, L500.4050 ####[facility] [address] [place], [address] Creatinine [Mass/Vol] 0.96 mg/dL Normal 0.70-1.20 [facility] Comment on above: Performed By: #### L 501.9520, L500.4050 ####[facility] [address] [place], [address] GAP 11 Normal 5-15 [facility] Comment on above: Performed By: #### L 501.9520, L500.4050 ####[facility] [address] [place], [address] GFR/1.73 sq M.predicted among non-blacks MDRD (S/P/Bld) [Vol rate/Area] 82 mL/min/{1.73_m2} Normal >60 [facility] Comment on above: Result Comment: mL/m in/1.73m2 CKD-EPI Creatinine Equation (2020) Performed By: #### L 501.9520, L500.4050 ####[facility] [address] [place], [address] Globulin (S) [Mass/Vol] 2.5 g/dL Normal 2.2-4.2 [facility] Comment on above: Performed By: #### L 501.9520, L500.4050 ####[facility] [address] [place], [address] Glucose [Mass/Vol] 262 mg/dL High 70-99 [facility] Comment on above: Performed By: #### L 501.9520, L500.4050 ####[facility] [address] [place], [address] Potassium [Moles/Vol] 4.7 mmol/L Normal 3.3-5.1 [facility] Comment on above: Result Comment: Hemo lysis present, Results??could be affected. ?? Performed By: #### L 501.9520, L500.4050 ####[facility] [address] [place], [address] Sodium [Moles/Vol] 139 mmol/L Normal 133-145 [facility] Comment on above: Performed By: #### L 501.9520, L500.4050 ####[facility] [address] [place], [address] T PROT 6.6 g/dL Normal 5.9-8.4 [facility] Comment on above: Performed By: #### L 501.9520, L500.4050 ####[facility] [address] [place], [address] Urea nitrogen [Mass/Vol] 18 mg/dL Normal 4-19 [facility] Comment on above: Performed By: #### L 501.9520, L500.4050 ####[facility] [address] [place], [address] GFR/1.73 sq M.predicted dory g non-blacks MDRD (S/P/Bld) [Vol rate/Area]Ordered By: Nellie Morris on 10-06-2024 Estimated GFR (MDRD) Non-Af Amer 82 >60 [facility] Comment on above: mL/min/1.73m2 CKD-EP I Creatinine Equation (2020) Glomerular filtration rate ( GFR) estimation/1.73 sq m using serum, plasma, or whole bOrdered By: Nellie Morris on 10-06-2024 GFR/1.73 sq M.predicted among non-blacks MDRD (S/P/Bld) [Vol rate/Area] 82 mL/min/{1.73_m2} >60 [facility] Comment on above: mL/min/1.73m2 CKD-EP I Creatinine Equation (2020) Laboratory - Chemistry and C hemistry - challengeOrdered By: Nellie Morris on 10-06-2024 AST [Catalytic activity/Vol] 40 U/L High <38 [facility] Comment on above: Hemolysis present, R esults could be affected. MR/Prieto 10-06-2024 MR/BMS.MASSIEL [facility] Vascular Surgery [address] [place], [place] [address] OFFICE VISIT Date of Service: 10/06/24 MR#: [id number] Acct: [id number] Name: LARA TAPIA Rep #: [id number] : 1945 Provider: SIDDHARTHA Ulloa Age/Sex: 78/M Location: [facility] Status: Signed Intake Vital Signs 01/15/24 10:30 [...] 4 mg PO BID DIABETES 09/06/2208/01 History arnndcnhlze-hdvihwuzr-ntp C-Mn 500 1 cap PO DAILY SUPPLEMENT [...] No mur (more content not included)... Normal [facility] Potassium (Unsp spec) [Mass/ Vol]Ordered By: Nellie Morris on 10-06-2024 Potassium [Moles/Vol] 4.7 mmol/L 3.3-5.1 [facility] Comment on above: Hemolysis present, R esults could be affected. Potassium measurement (mass/ volume)Ordered By: Nellie Morris on 10-06-2024 Potassium (Unsp spec) [Mass/Vol] 4.7 mmol/L 3.3-5.1 [facility] Comment on above: Hemolysis present, R esults could be affected. Serum creatinine measurement (mass/volume)Ordered By: Nellie Morris on 10-06-2024 Creatinine [Mass/Vol] 0.96 mg/dL 0.70-1.20 [facility] Serum globulin measurementOr dered By: Nellie Morris on 10-06-2024 Globulin (S) [Mass/Vol] 2.5 g/dL 2.2-4.2 [facility] Serum glucose measurement (m ass/volume)Ordered By: Nellie Morris on 10-06-2024 Glucose [Mass/Vol] 262 mg/dL High 70-99 [facility] Serum or plasma alanine hsu otransferase (ALT) measurementOrdered By: Nellie Morris 10-06-2024 ALT [Catalytic activity/Vol] 25 U/L <47 [facility] Serum or plasma albumin myranda urement (mass/volume)Ordered By: Nellie Morris on 10-06-2024 Albumin [Mass/Vol] 4.0 g/dL 3.4-4.8 [facility] Serum or plasma albumin/glob ulin mass ratioOrdered By: Nellie Morris on 10-06-2024 Albumin/Globulin [Mass ratio] 1.6 {ratio} 0.9-2.4 [facility] Serum or plasma alkaline lee ann sphatase measurementOrdered By: Nellie Morris 10-06-2024 ALP [Catalytic activity/Vol] 52 U/L 40-129 [facility] Serum or plasma calcium myranda urement (mass/volume)Ordered By: Nelile Dowellhn on 10-06-2024 Calcium [Mass/Vol] 9.3 mg/dL 7.6-11.0 [facility] Serum or plasma urea nitroge n measurement (mass/volume)Ordered By: Nellie Dowellhn on 10-06-2024 Urea nitrogen [Mass/Vol] 18 mg/dL 4-19 [facility] Sodium levelOrdered By: Kd Morris on 10-06-2024 Sodium [Moles/Vol] 139 mmol/L 133-145 [facility] TSH DL <= 0.005 mIU/L QnOrde red By: Nellie Dowellhn on 10-06-2024 Thyroid Stimulating Hormone (TSH) 1.550 uIU/mL 0.300-4.20 0 [facility] TSH Qn 1.550 uIU/mL 0.300-4.20 0 [facility] Thyroid Stim Hormone (TSH)on 10-06-2024 TSH 1.550 uIU/mL Normal 0.300-4.20 0 [facility] Comment on above: Performed By: #### L 501.9520, L500.4050 ####[facility] [address] [place], [address] Total proteinOrdered By: Johan Morris on 10-06-2024 Protein [Mass/Vol] 6.6 g/dL 5.9-8.4 [facility] Re-Evaluation - PT (1)on Re-Evaluation - PT (1) [facility] Physical Therapy [address] [place] [address] / REEVALUATION / MEDICARE RECERTIFICATION PHYSICAL THERAPY MR#: [id number] Acct: [id number] Name: LARA TAPIA Rep #: [id number] : 1945 78 From: Thao Aguero MPT [...] do not hesitate to contact me at [phone] by phone or if you have questions or concerns regarding this new plan of care! Sincerely, Thao Aguero, MPT 09/21/24 1058 CC: COMFORT Cee; Dr. Harlan Ford, DO Signed For Medicare only, by signing this I certify the plan of care. __ Physicians Signature Date Normal [facility] Carotid Duplex Ultrasoundon 09-16-2024 Carotid Duplex Ultrasound [facility] [place] [address] Carotid Duplex Ultrasound 09/16/24 1059 MR#: [id number] Acct: [id number] Name: LARA TAPIA Rep #: [id number] : 1945 78 From: Sony López MD [...] Date Dictated: 09/16/24 1059 Date Transcribed: 09/16/241542 Top Cager: Signed Normal [facility] Duplex ultrasound of carotid artery reportOrdered By: Sony López on 09-16-2024 Study report [facility] Cardiovascular Services [address] [place] [address] Carotid Duplex Ultrasound 09/16/24 1059 MR#: [id number] Acct: [id number] Name: LARA TAPIA Rep #:[id number] : [...] Ordering Physician: Nellie Morris Referring Physician: Nellie Morirs Performed By: Karla Boss RVT and Student 09/16/24 1543 Date _ Sony López MD CC: SIDDHARTHA Ulloa; Dr. 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 Mr. [...] meloxicam (MOBIC (more content not included)... Normal [facility] International normalized rat io (INR) calculationOrdered By: Torri Mendoza on 09-07-2024 INR Coag (Bld) [Relative time] 2.5 {INR} [facility] Prothrombin Time w/INRon INR Coag (PPP) [Relative time] 2.5 {INR} Normal [facility] Comment on above: Performed By: #### L 300.3900 ####[facility] [address] [place], [place], [address] Prothrombin timeOrdered By: Torri Mendoza on 09-07-2024 PT Coag (PPP) [Time] 27.6 s High 11.7-14.9 [facility] Comment on above: Performed By: #### L 300.3900 ####[facility] [address] [place], [place], [address] CNOVon 09-02-2024 CNOV Office Visit ([facility] ) -- LARA TAPIA ([id number]) 1945 M Date Time Provider Department 09/02/24 11:15 AM [facility] During your visit today, we recorded [...] mg all other days blood sugar diagnostic (HiredTOUCH ULTRA TEST) test strip Test blood sugars [...] face, eyes, eyelids, and deep fold areas. Vxvexaudozg-Ibqrhtjio-Eqe C-Mn (GLUCOSAMINE CHONDROITIN MAXSTR) 500-400 mg ORAL [...] staff - AMBULATORY EAR LAVAGE/IRRIGATION MD Shaylee HoffNe[place], [place] 09/02/2024 11:45 AM Signed Ambulatory Ear Lavage Pre-treatment: Warm water Treatment: Both ears Equipment and Irrigation solution and Volume used: Single use syringe with single use irrigation tip Water Return flow appearance: Brown Yellow Patient tolerated procedure: yes Tympanic me (more content not included)... Normal [facility] Re-Evaluation - PT (1)on Re-Evaluation - PT (1) [facility] Physical Therapy [facility] [address] [place] [address]. [address] [place] [address] / REEVALUATION / MEDICARE RECERTIFICATION PHYSICAL THERAPY MR#: [id number] Acct: [id number] Name: LARA TAPIA Rep #: [id number] : 1945 78 From: Thao Aguero MPT [...] do not hesitate to contact me at [phone] by phone or if you have questions or concerns regarding this new plan of care! Sincerely, Thao Aguero, MPT 09/02/24 110 CC: COMFORT Cee; Dr. Harlan Ford DO Signed For Medicare only, by signing this I certify the plan of care. __ Physicians Signature Date Normal [facility] International normalized rat io (INR) calculationOrdered By: Torri Mendoza on 08-24-2024 INR Coag (Bld) [Relative time] 2.0 {INR} [facility] Prothrombin Time w/INRon INR Coag (PPP) [Relative time] 2.0 {INR} Normal [facility] Comment on above: Order Comment: Comme nts: STANDING ORDER: Fax to [phone] Performed By: #### L 300.3900 ####[facility] [address] [place], [place], [phone] PT Coag (PPP) [Time] 22.6 s High 11.7-14.9 [facility] Comment on above: Order Comment: Comme nts: STANDING ORDER: Fax to [phone] Performed By: #### L 300.3900 ####[facility] [address] [place], [place], [phone] Prothrombin timeOrdered By: Torri Mendoza on 08-24-2024 PT Coag (PPP) [Time] 22.6 s High 11.7-14.9 [facility] Prothrombin Time w/INRon INR Coag (PPP) [Relative time] 1.8 {INR} Normal [facility] Comment on above: Performed By: #### L 300.3900 #### [facility] Laboratory [address] [place], [place], [phone] ([phone] PT Coag (PPP) [Time] 21.6 s High 11.7-14.9 [facility] Comment on above: Performed By: #### L 300.3900 #### [facility] Laboratory [address] [place], [place], [address] International normalized rat io (INR) calculationOrdered By: Torri Mendoza on 08-03-2024 INR Coag (Bld) [Relative time] 2.0 {INR} [facility] Prothrombin Time w/INRon INR Coag (PPP) [Relative time] 2.0 {INR} Normal [facility] Comment on above: Performed By: #### L 300.3900 ####[facility] [address] [place], [place], [phone] PT Coag (PPP) [Time] 22.6 s High 11.7-14.9 [facility] Comment on above: Performed By: #### L 300.3900 ####[facility] [address] [place], [address] Prothrombin timeOrdered By: Torri Mendoza on 08-03-2024 PT Coag (PPP) [Time] 22.6 s High 11.7-14.9 [facility] Re-Evaluation - PT (1)on Re-Evaluation - PT (1) [facility] Physical Therapy [facility] [address] [place] [address] [address] [place] [address] / REEVALUATION / MEDICARE RECERTIFICATION PHYSICAL THERAPY MR#: [id number] Acct: [id number] Name: LARA TAPIA Rep #: [id number] : 1945 78 From: Thao Aguero MPT Referring Dr.: COMFORT Cee Status:REG RCR Insurance: MEDICARE PART A B [employer] Re-Evaluation Intro: Dr. Rylan Cee, COMFORT, It has been my pleasure to treat LARA TAPIA over the last 7 visits for Neuropathy/R [...] do not hesitate to contact me at [phone] by phone or if you have questions or concerns regarding this new plan of care! Sincerely, Thao More, MPT 08/03/24 6550 CC: DPM Dr. Rylan Cee; Dr. Ortiz (more content not included)... [facility] -- LARA TAPIA ([id number]) 1945 M Date Time Provider Department 07/29/24 12:20 PM [facility] During your visit today, we recorded the [...] stretches after this. Start PHYSICAL THERAPY at [facility] for the arm/shoulder and neck pain [...] No FAM (more content not included)... Normal [facility] Prothrombin Time w/INRon INR Coag (PPP) [Relative time] 1.2 {INR} Normal [facility] Comment on above: Performed By: #### L 9200.0000 #### [facility] Laboratory [address] [place], [address] PT Coag (PPP) [Time] 15.4 s High 11.7-14.9 [facility] Comment on above: Performed By: #### L 9200.0000 #### [facility] Laboratory [address] [place], [place], [id number] CNOVon 07-23-2024 CNOV Office Visit (UCWSTR ) -- LARA TAPIA ([id number]) 1945 M Date Time Provider Department 07/23/24 3:30 PM [facility] During your visit today, we recorded the following information about you: Temperature Pulse Respiration Blood pressure 97.4 degrees 73/minute 18/minute 171/72 Weight 90.6 kg Kalpana Poe PA-C 07/23/2024 4:32 PM Signed This note was created using [employer]. Subjective Lara Tapia is a 78 year [...] Patient is right-hand dominant. Review of the [facility] medical records shows that the patient received [...] 338.29, ICD1 (more content not included)... Normal [facility] No Panel Informationon 07-23 Radiology Study observation (narrative) [facility] XR ELBOW 3V AP/LAT/OTHER RTo n [...] are maintained. IMPRESSION: No acute osseous abnormality [facility] C[facility] Transcribe Date/Time: Jul 23 2024 3:52P Dictated by : ISAAK DAVALOS MD This examination was interpreted and the report reviewed and electronically signed by: ISAAK DAVALOS MD on Jul 23 2024 3:54PM EST [id number] Normal [facility] XR Elbow - right AP and Late ral and obliqueon 07-23-2024 IMPRESSION: No acute osseous abnormality Top Cager: [facility] Transcribe Date/Time: Jul 23 2024 3:52P [...] spaces are maintained. DIVISION OF RADIOLOGY Provider, [facility] - 07/23/2024 * * *Final Report* [...] maintained. IMPRESSION IMPRESSION: No acute osseous abnormality Top C[facility] Transcribe Date/Time: Jul 23 2024 3:52P Dictated by : ISAAK DAVALOS MD This examination was interpreted and the report reviewed and electronically signed by: ISAAK DAVALOS MD on Jul 23 2024 3:54PM EST [facility] XR HAND 3V PA/LAT/OBL RTon 0 [...] interphalangeal joints. IMPRESSION: No acute osseous abnormality Top Cager: [facility] Transcribe Date/Time: Jul 23 2024 3:54P Dictated by : ISAAK DAVALOS MD This examination was interpreted and the report reviewed and electronically signed by: ISAAK DAVALOS MD on Jul 23 2024 3:57PM EST [id number] Normal [facility] XR Hand - right PA and Later al and Obliqueon 07-23-2024 IMPRESSION: No acute osseous abnormality Top Cager: [facility] Transcribe Date/Time: Jul 23 2024 3:54P [...] multiple interphalangeal joints. DIVISION OF RADIOLOGY Provider, [facility] - 07/23/2024 * * *Final Report* [...] joints. IMPRESSION IMPRESSION: No acute osseous abnormality Top Cager: [facility] Transcribe Date/Time: Jul 23 2024 3:54P Dictated by : ISAAK DAVALOS MD This examination was interpreted and the report reviewed and electronically signed by: ISAAK DAVALOS MD on Jul 23 2024 3:57PM [facility] XR SHOULDER 2V AP/TRUE AP RT on [...] space narrowing. IMPRESSION: No acute osseous abnormality Top Cager: [facility] Transcribe Date/Time: Jul 23 2024 3:51P Dictated by : ISAAK DAVALOS MD This examination was interpreted and the report reviewed and electronically signed by: ISAAK DAVALOS MD on Jul 23 2024 3:52PM EST [id number] Normal [facility] XR Shoulder - right 2 Viewso n 07-23-2024 IMPRESSION: No acute osseous abnormality Top Cager: [facility] Transcribe Date/Time: Jul 23 2024 3:51P [...] space narrowing. DIVISION OF RADIOLOGY Provider, [facility] - 07/23/2024 * * *Final Report* [...] narrowing. IMPRESSION IMPRESSION: No acute osseous abnormality Top Cager: [facility] Transcribe Date/Time: Jul 23 2024 3:51P Dictated by : ISAAK DAVALOS MD This examination was interpreted and the report reviewed and electronically signed by: ISAAK DAVALOS MD on Jul 23 2024 3:52PM EST [facility] XR Shoulder - right 2 ViewsO rdered By: Cc Provider on 07-23-2024 [facility] Inital Evaluation (1) - PTon 07-13-2024 Inital Evaluation (1) - PT [facility] Physical Therapy [facility] [address] [place] [address]. [address] [place] [address] / REHABILITATION SERVICES INITIAL EVALUATION MR#: [id number] Acct: [id number] Name: LARA TAPIA Rep #: [id number] : 1945 78 From: Thao ESTRADA Referring [...] He just got a call from our assistant front office manager to come in for PT for balance [...] to be FAXED BACK to us at [phone] for Medicare purposes. For Medicare only, by signing this I certify the plan of care. Please let me know if there are questions or (more content not included)... Normal [facility] International normalized rat io (INR) calculationOrdered By: Torri Mendoza on 06-29-2024 INR Coag (Bld) [Relative time] 2.5 {INR} [facility] Prothrombin Time w/INRon INR Coag (PPP) [Relative time] 2.5 {INR} Normal [facility] Comment on above: Performed By: #### L 300.3900 ####[facility] [address] [place], [place], [phone] PT Coag (PPP) [Time] 26.5 s High 11.7-14.9 [facility] Comment on above: Performed By: #### L 300.3900 ####[facility] [address] [place], [place], [phone](475) Prothrombin timeOrdered By: Torri Mendoza on 06-29-2024 PT Coag (PPP) [Time] 26.5 s High 11.7-14.9 [facility] CNOVon 06-15-2024 CNOV Office Visit (FAMPWS ) -- LARA TAPIA ([id number]) 1945 M Date Time Provider Department 06/15/24 [...] - D (more content not included)... Normal [facility] CBC W Auto Differential pane l (Bld)on 06-10-2024 Basophils (Bld) [#/Vol] [facility] Basophils/100 WBC (Bld) 0.4 % [facility] Differential cell count method Nom (Bld) Auto [facility] Eosinophils (Bld) [#/Vol] 0.04 10*3/uL [facility] Eosinophils/100 WBC (Bld) 1.5 % [facility] Erythrocyte distribution width (RBC) [Ratio] 13.2 % 11.5 - 15.0 % [facility] Hematocrit (Bld) [Volume fraction] 40.2 % 39.0 - 51.0 % [facility] Hemoglobin (Bld) [Mass/Vol] 13.1 g/dL 13.0 - 17.0 g/dL [facility] Immature granulocytes (Bld) [#/Vol] [facility] Immature granulocytes/100 WBC (Bld) 0.4 % [facility] Interpretation and review of laboratory results Abnormal [facility] Lymphocytes (Bld) [#/Vol] 0.48 10*3/uL Low [facility] Lymphocytes/100 WBC (Bld) 18.0 % [facility] MCH (RBC) [Entitic mass] 31.7 pg 26.0 - 34.0 pg [facility] MCHC (RBC) [Mass/Vol] 32.6 g/dL 30.5 - 36.0 g/dL [facility] MCV (RBC) [Entitic vol] 97.3 fL 80.0 - 100.0 fL [facility] Monocytes (Bld) [#/Vol] 0.28 10*3/uL [facility] Monocytes/100 WBC (Bld) 10.5 % [facility] Neutrophils (Bld) [#/Vol] 1.85 10*3/uL [facility] Neutrophils/100 WBC (Bld) 69.2 % [facility] Nucleated RBC (Bld) [#/Vol] NINF [facility] Nucleated RBC/100 WBC (Bld) [Ratio] 0.0 % /100 WBC [facility] Platelet mean volume (Bld) [Entitic vol] 9.6 fL 9.0 - 12.7 fL [facility] Platelets (Bld) [#/Vol] 63 10*3/uL Low [facility] Comment on above: No clot detected. RBC (Bld) [#/Vol] 4.13 10*6/uL Low 4.20 - 6.00 m/uL [facility] WBC (Bld) [#/Vol] 2.67 10*3/uL Low [facility] Basophils (Bld) [#/Vol] 10*3/uL Normal <0.11 [facility] Comment on above: Order Comment: Speci men Type: BLOOD SPECIMENOrdering Facility: [facility] Address: [address] [place] [address] Performed By: #### 5 7021-8 ####[facility] LABCLIA [id number] [place] [address] [place] Basophils/100 WBC (Bld) 0.4 % Normal [facility] Comment on above: Order Comment: Speci men Type: BLOOD SPECIMENOrdering Facility: [facility] Address: [address] [place] [address] Performed By: #### 5 7021-8 ####[facility] LABCLIA [id number] [place] [address] [place] Differential cell count method Nom (Bld) Auto Normal [facility] Comment on above: Order Comment: Speci men Type: BLOOD SPECIMENOrdering Facility: [facility] Address: [address] [place] [address] Performed By: #### 5 7021-8 ####[facility] LABCLIA [id number] [place] [address] [place] Eosinophils (Bld) [#/Vol] 0.04 10*3/uL Normal <0.46 [facility] Comment on above: Order Comment: Speci men Type: BLOOD SPECIMENOrdering Facility: [facility] Address: [address] [place] [address] Performed By: #### 5 7021-8 ####[facility] LABCLIA [id number] [place] [address] [place] Eosinophils/100 WBC (Bld) 1.5 % Normal [facility] Comment on above: Order Comment: Speci men Type: BLOOD SPECIMENOrdering Facility: [facility] Address: [address] [place] [address] Performed By: #### 5 7021-8 ####[facility] LABIA [id number] [place] [address] [place] Erythrocyte distribution width (RBC) [Ratio] 13.2 % Normal 11.5-15.0 [facility] Comment on above: Order Comment: Speci men Type: BLOOD SPECIMENOrdering Facility: [facility] Address: [address] [place] [address] Performed By: #### 5 7021-8 ####[facility] LABIA [id number] [place] [address] [place] Hematocrit (Bld) [Volume fraction] 40.2 % Normal 39.0-51.0 [facility] Comment on above: Order Comment: Speci men Type: BLOOD SPECIMENOrdering Facility: [facility] Address: [address] [place] [address] Performed By: #### 5 7021-8 ####[facility] LABIA [id number] [place] [address] [place] Hemoglobin (Bld) [Mass/Vol] 13.1 g/dL Normal 13.0-17.0 [facility] Comment on above: Order Comment: Speci men Type: BLOOD SPECIMENOrdering Facility: [facility] Address: [address] [place] [address] Performed By: #### 5 7021-8 ####[facility] LABCLIA [id number] [place] [address] [place] Immature granulocytes (Bld) [#/Vol] 10*3/uL Normal <0.10 [facility] Comment on above: Order Comment: Speci men Type: BLOOD SPECIMENOrdering Facility: [facility] Address: [address] [place] [address] Performed By: #### 5 7021-8 ####[facility] LABCLIA [id number] [place] [address] [place] Immature granulocytes/100 WBC (Bld) 0.4 % Normal [facility] Comment on above: Order Comment: Speci men Type: BLOOD SPECIMENOrdering Facility: [facility] Address: [address] [place] [address] Performed By: #### 5 7021-8 ####[facility] LABCLIA [id number] [place] [address] [place] Lymphocytes (Bld) [#/Vol] 0.48 10*3/uL Low 1.00-4.00 [facility] Comment on above: Order Comment: Speci men Type: BLOOD SPECIMENOrdering Facility: [facility] Address: [address] [place] [address] Performed By: #### 5 7021-8 ####[facility] LABCLIA [id number] [place] [address] [place] Lymphocytes/100 WBC (Bld) 18.0 % Normal [facility] Comment on above: Order Comment: Speci men Type: BLOOD SPECIMENOrdering Facility: [facility] Address: [address] [place] [address] Performed By: #### 5 7021-8 ####[facility] LABCLIA [id number] [place] [address] [place] MCH (RBC) [Entitic mass] 31.7 pg Normal 26.0-34.0 [facility] Comment on above: Order Comment: Speci men Type: BLOOD SPECIMENOrdering Facility: [facility] Address: [address] [place] [address] Performed By: #### 5 7021-8 ####[facility] LABCLIA [id number] [place] [address] [place] MCHC (RBC) [Mass/Vol] 32.6 g/dL Normal 30.5-36.0 [facility] Comment on above: Order Comment: Speci men Type: BLOOD SPECIMENOrdering Facility: [facility] Address: [address] [place] [address] Performed By: #### 5 7021-8 ####[facility] LABCLIA [id number] [place] [address] [place] MCV (RBC) [Entitic vol] 97.3 fL Normal 80.0-100.0 [facility] Comment on above: Order Comment: Speci men Type: BLOOD SPECIMENOrdering Facility: [facility] Address: [address] [place] [address] Performed By: #### 5 7021-8 ####[facility] LABIA [id number] [place] [address] [place] Monocytes (Bld) [#/Vol] 0.28 10*3/uL Normal <0.87 [facility] Comment on above: Order Comment: Speci men Type: BLOOD SPECIMENOrdering Facility: [facility] Address: [address] [place] [address] Performed By: #### 5 7021-8 ####[facility] LABIA [id number] [place] [address] [place] Monocytes/100 WBC (Bld) 10.5 % Normal [facility] Comment on above: Order Comment: Speci men Type: BLOOD SPECIMENOrdering Facility: [facility] Address: [address] [place] [address] Performed By: #### 5 7021-8 ####[facility] LABCLIA [id number] [place] [address] [place] Neutrophils (Bld) [#/Vol] 1.85 10*3/uL Normal 1.45-7.50 [facility] Comment on above: Order Comment: Speci men Type: BLOOD SPECIMENOrdering Facility: [facility] Address: [address] [place] [address] Performed By: #### 5 7021-8 ####[facility] LABCLIA [id number] [place] [address] [place] Neutrophils/100 WBC (Bld) 69.2 % Normal [facility] Comment on above: Order Comment: Speci men Type: BLOOD SPECIMENOrdering Facility: [facility] Address: [address] [place] [address] Performed By: #### 5 7021-8 ####[facility] LABCLIA [id number] [place] [address] [place] Nucleated RBC (Bld) [#/Vol] 10*3/uL Normal <0.01 [facility] Comment on above: Order Comment: Speci men Type: BLOOD SPECIMENOrdering Facility: [facility] Address: [address] [place] [address] Performed By: #### 5 7021-8 ####[facility] LABCLIA [id number] [place] [address] [place] Nucleated RBC/100 WBC (Bld) [Ratio] 0.0 /100 WBC Normal [facility] Comment on above: Order Comment: Speci men Type: BLOOD SPECIMENOrdering Facility: [facility] Address: [address] [place] [address] Performed By: #### 5 7021-8 ####[facility] LABCLIA [id number] [address] [place] [address] [place] Platelet mean volume (Bld) [Entitic vol] 9.6 fL Normal 9.0-12.7 [facility] Comment on above: Order Comment: Speci men Type: BLOOD SPECIMENOrdering Facility: [facility] Address: [address] [place] [address] Performed By: #### 5 7021-8 ####[facility] LABCLIA [id number] [place] [address] [place] Platelets (Bld) [#/Vol] 63 10*3/uL Low 150-400 [facility] Comment on above: Order Comment: Speci men Type: BLOOD SPECIMENOrdering Facility: [facility] Address: [address] [place] [address] Result Comment: No c lot detected. Performed By: #### 5 7021-8 ####[facility] LABIA [id number] [place] [address] [place] RBC (Bld) [#/Vol] 4.13 10*6/uL Low 4.20-6.00 [facility] Comment on above: Order Comment: Speci men Type: BLOOD SPECIMENOrdering Facility: [facility] Address: [address] [place] [address] Performed By: #### 5 7021-8 ####[facility] LABIA [id number] [place] [address] [place] WBC (Bld) [#/Vol] 2.67 10*3/uL Low 3.70-11.00 [facility] Comment on above: Order Comment: Speci men Type: BLOOD SPECIMENOrdering Facility: [facility] Address: [address] [place] [address] Performed By: #### 5 7021-8 ####[facility] LABCLIA [id number] [place] [address] [place] CNPLizbeth 06-10-2024 CNPN Telephone ([facility]) -- LARA TAPIA ([id number]) 1945 M Date Time Provider Department 06/10/24 HARLAN FORD During your visit today, we recorded the following information about you: Mandy Monroy LPN 06/10/2024 9:08 AM Signed Pt. here for lab work needs orders filed. Ida Gan APRN.[employer] 06/10/2024 9:12 AM Signed Orders placed. Thank you, Ida Gan APRN.[employer] Allergies As of Date: 06/10/2024 Noted Allergy Reaction LYRICA (PREGABALIN) 12/25/2010 14 - Other: See Comments Comments: Cough Date Reviewed: 03/11/2024 Reviewed by: Zehra Hampton LPN - Fully Assessed Primary Visit Diagnosis:Primary hypertension [I10] Other Visit Diagnoses:Mixed hyperlipidemia [E78.2] Type 2 diabetes mellitus with diabetic polyneuropathy, without long-term current use of insulin (HCC) [E11.42] Order(s):HEMOGLOBIN A1C [TDMLE0S] Order #: [id number] FUTURE COMPREHENSIVE METABOLIC PANEL [SQCMP] Order #: [id number] FUTURE COMPLETE BLOOD COUNT AND DIFFERENTIAL [SQCBCDIF] Order #: [id number] FUTURE LIPID PANEL BASIC [SQLIPB] Order #: [id number] FUTURE Prescriptions as of 07/14/2024 - simvastatin [...] all other days - blood sugar diagnostic (HiredTOUCH ULTRA TEST) test strip Test blood sugars [...] eyes, eyelids, and deep fold areas. - Kjymloyhrqw-Iwsfmkjlu-Ivf C-Mn (GLUCOSAMINE CHONDROITIN MAXSTR) 500-400 mg ORAL [...] unilateral 04/07/2009 07/12/2016 HTN (hypertension) [I10] 04/25/2010 Gqg-looi-vajd proliferative diabetic retinopath*05/28/2014 05/28/2014 Nonproliferative diabetic retinopathy (HCC) [E1*05/28/2014 11/13/2019 Uncontrol (more content not included)... Normal [facility] Comprehensive metabolic 2000 panelon 06-10-2024 Albumin [Mass/Vol] 4.4 g/dL 3.9 - 4.9 g/dL [facility] ALP [Catalytic activity/Vol] 61 U/L 38 - 113 U/L [facility] ALT [Catalytic activity/Vol] 30 U/L 10 - 54 U/L [facility] Anion gap [Moles/Vol] 11 mmol/L 8 - 15 mmol/L [facility] AST [Catalytic activity/Vol] 34 U/L 14 - 40 U/L [facility] Bilirubin [Mass/Vol] 1.2 mg/dL 0.2 - 1 .3 mg/dL [facility] Calcium [Mass/Vol] 9.7 mg/dL 8.5 - 10. 2 mg/dL [facility] Chloride [Moles/Vol] 103 mmol/L 98 - 10 7 mmol/L [facility] CO2 [Moles/Vol] 28 mmol/L 22 - 30 mmol/L [facility] Creatinine [Mass/Vol] 0.89 mg/dL 0.73 - 1.22 mg/dL [facility] GFR/1.73 sq M.predicted among non-blacks MDRD (S/P/Bld) [Vol rate/Area] 88 mL/min/{1.73_m2} - PINF [facility] Comment on above: Estimated Glomerular Filtration [...] [Mass/Vol] 74 mg/dL 74 - 99 mg/dL [facility] Comment on above: The [place] [employer] Association (ADA) provides guidance for [...] Standards of Medical Care in Diabetes 2016, [place] [employer]. Diabetes Care. 2016.39(Suppl 1). Interpretation and review of laboratory results Normal [facility] Potassium [Moles/Vol] 4.3 mmol/L 3.7 - 5.1 mmol/L [facility] Protein [Mass/Vol] 6.8 g/dL 6.3 - 8.0 g/dL [facility] Sodium [Moles/Vol] 142 mmol/L 136 - 144 mmol/L [facility] Urea nitrogen [Mass/Vol] 14 mg/dL 9 - 24 mg/dL [facility] Albumin [Mass/Vol] 4.4 g/dL Normal 3.9-4.9 [facility] Comment on above: Order Comment: Speci men Type: BLOOD SPECIMENOrdering Facility: [facility] Address: [address] [place] [address] Performed By: #### 2 4323-8, 90238-3 ####[facility] LABCLIA [id number] [place] [address] [place] ALP [Catalytic activity/Vol] 61 U/L Normal 38-113 [facility] Comment on above: Order Comment: Speci men Type: BLOOD SPECIMENOrdering Facility: [facility] Address: [address] [place] [address] Performed By: #### 2 4323-8, 07571-1 ####[facility] LABCLIA [id number] [place] [address] [place] ALT [Catalytic activity/Vol] 30 U/L Normal 10-54 [facility] Comment on above: Order Comment: Speci men Type: BLOOD SPECIMENOrdering Facility: [facility] Address: [address] [place] [address] Performed By: #### 2 4323-8, 88534-4 ####[facility] LABCLIA [id number] [place] [address] [place] Anion gap [Moles/Vol] 11 mmol/L Normal 8-15 [facility] Comment on above: Order Comment: Speci men Type: BLOOD SPECIMENOrdering Facility: [facility] Address: [address] [place] [address] Performed By: #### 2 4323-8, 41163-8 ####[facility] LABCLIA [id number] [place] [address] [place] AST [Catalytic activity/Vol] 34 U/L Normal 14-40 [facility] Comment on above: Order Comment: Speci men Type: BLOOD SPECIMENOrdering Facility: [facility] Address: [address] [place] [id number] Performed By: #### 2 4323-8, 21053-5 ####[facility] LABCLIA [id number] [address] [address] [place] Bilirubin [Mass/Vol] 1.2 mg/dL Normal 0.2-1.3 [facility] Comment on above: Order Comment: Speci men Type: BLOOD SPECIMENOrdering Facility: [facility] Address: [address] [place], [place] [address] Performed By: #### 2 4323-8, 37240-3 ####[facility] LABCLIA [id number] [place] [address] [place] Calcium [Mass/Vol] 9.7 mg/dL Normal 8.5-10.2 [facility] Comment on above: Order Comment: Speci men Type: BLOOD SPECIMENOrdering Facility: [facility] Address: [address] [place], [place] [address] Performed By: #### 2 4323-8, 11337-4 ####[facility] LABCLIA [id number] [place] [address] [place] Chloride [Moles/Vol] 103 mmol/L Normal 98-107 [facility] Comment on above: Order Comment: Speci men Type: BLOOD SPECIMENOrdering Facility: [facility] Address: [address] [id number] Performed By: #### 2 4323-8, 30728-5 ####[facility] LABCLIA [id number] [place] [id number] [place] CO2 [Moles/Vol] 28 mmol/L Normal 22-30 [facility] Comment on above: Order Comment: Speci men Type: BLOOD SPECIMENOrdering Facility: [facility] Address: [address] [place], [place] [address] Performed By: #### 2 4323-8, 50897-5 ####[facility] LABIA [id number] [place] [address] [place] Creatinine [Mass/Vol] 0.89 mg/dL Normal 0.73-1.22 [facility] Comment on above: Order Comment: Specteagan brooks Type: BLOOD SPECIMENOrdering Facility: [facility] Address: [address] [place] [address] Performed By: #### 2 4323-8, 16375-4 ####[facility] LABIA [id number] [place] [address] [place] Creatinine and Glomerular filtration rate.predicted panel (S/P/Bld) 88 mL/min/1.73m??? Normal >=60 [facility] Comment on above: Order Comment: Jeffy brooks Type: BLOOD SPECIMENOrdering Facility: [facility] Address: [address] [place] [address] Result Comment: Thais mated Glomerular Filtration Rate [...] actual GFR. Performed By: #### 2 4323-8, 44233-8 ####[facility] LABIA [id number] [place] [address] [place] Glucose [Mass/Vol] 74 mg/dL Normal 74-99 [facility] Comment on above: Order Comment: Jeffy brooks Type: BLOOD SPECIMENOrdering Facility: [facility] Address: [address] [place] [address] Result Comment: The [place] Diabetes Association (ADA) provides guidance for cutoff [...] Standards of Medical Care in Diabetes 2016, [place] Diabetes Association. Diabetes Care. 2016.39(Suppl 1). Performed By: #### 2 4323-8, 80415-9 ####[facility] LABCLIA [id number] [place] [address] [place] Potassium [Moles/Vol] 4.3 mmol/L Normal 3.7-5.1 [facility] Comment on above: Order Comment: Speci men Type: BLOOD SPECIMENOrdering Facility: [facility] Address: [address] [place] [address] Performed By: #### 2 4328, ####[facility] LABCLIA [id number] [place] [address] [place] Protein [Mass/Vol] 6.8 g/dL Normal 6.3-8.0 [facility] Comment on above: Order Comment: Krystali cecilia Type: BLOOD SPECIMENOrdering Facility: [facility] Address: [address] [place] [address] Performed By: #### 2 4323-8, ####[facility] LABCLIA [id number] [place] [address] [place] Sodium [Moles/Vol] 142 mmol/L Normal 136-144 [facility] Comment on above: Order Comment: Speci men Type: BLOOD SPECIMENOrdering Facility: [facility] Address: [address] [place] [address] Performed By: #### 2 4323-8, ####[facility] LABCLIA [id number] [place] [id number] [place] Urea nitrogen [Mass/Vol] 14 mg/dL Normal 9-24 [facility] Comment on above: Order Comment: Jeffy brooks Type: BLOOD SPECIMENOrdering Facility: [facility] Address: [address] [place] [address] Performed By: #### 2 4323-8, 36852-5 ####[facility] LABCLIA [id number] [place] [address] [place] HbA1c (Bld)on 06-10-2024 Average glucose Estimated from glycated hemoglobin (Bld) [Mass/Vol] 137 mg/dL [facility] Comment on above: eAG: (Estimated aver age glucose) is a calculated value from HgbA1c and is healthcare representative of the average blood glucose level in the last 2-3 month period. HbA1c (Bld) [Mass fraction] 6.4 % High 4.3 - 5.6 % [facility] Comment on above: [place] Diabetes As sociation guidelines indicate that patients with HgbA1c in the range 5.7-6.4% are at increased risk for development of diabetes, and intervention by lifestyle modification may be beneficial. HgbA1c greater or equal to 6.5% is considered diagnostic of diabetes. Interpretation and review of laboratory results Abnormal [facility] Average glucose Estimated from glycated hemoglobin (Bld) [Mass/Vol] 137 mg/dL Normal [facility] Comment on above: Order Comment: Jeffy brooks Type: BLOOD SPECIMEN Ordering Facility: [facility] Address: [address] [place] [address] Result Comment: eAG: (Estimated average glucose) is a calculated value from HgbA1c and is healthcare representative of the average blood glucose level in the last 2-3 month period. Performed By: #### 1 988-5 #### [facility] CLIA [id number] [address] [place] [address] [place] HbA1c (Bld) [Mass fraction] 6.4 % High 4.3-5.6 [facility] Comment on above: Order Comment: Jeffy brooks Type: BLOOD SPECIMEN Ordering Facility: [facility] Address: [address] [place] [address] Result Comment: [place] Diabetes Association guidelines indicate that patients with HgbA1c in the range 5.7-6.4% are at increased risk for development of diabetes, and intervention by lifestyle modification may be beneficial. HgbA1c greater or equal to 6.5% is considered diagnostic of diabetes. Performed By: #### 1 988-5 #### [facility] CLIA [id number] [address] [place] [address] [place] Lipid 1996 panelon 4 Cholesterol [Mass/Vol] 174 mg/dL NINF - 200 mg/dL [facility] Comment on above: <200 mg/dL, Desirabl e 200-239 mg/dL, Borderline high >239 mg/dL, High Cholesterol in HDL [Mass/Vol] 39 mg/dL Low 39 - PINF mg/dL [facility] Comment on above: 40-59 mg/dL, Accepta ble >59 mg/dL, High: Negative risk factor for coronary heart disease <40 mg/dL, Low: Positive risk factor for coronary heart disease Cholesterol in LDL [Mass/Vol] 98 mg/dL NINF - 100 mg/dL [facility] Comment on above: <100 mg/dL, Optimal 100-129 mg/dL, Near optimal/above optimal 130-159 mg/dL, Borderline high 160-189 mg/dL, High >189 mg/dL, Very high Secondary prevention optimal LDL Cholesterol levels are recommended to be < 70 mg/dL Cholesterol in LDL/Cholesterol in HDL [Mass ratio] 2.51 {ratio} NINF - 2.54 [facility] Comment on above: Reference: 1. National Cholesterol Education Program ATP III Guideline At-A-Glance Quick Desk Reference: National Heart, Lung, and Blood [place]. National Institutes of Health. 2001: NIH Publication No. 01-3305. 2. An International Atherosclerosis Society position paper: global recommendations for the management of dyslipidemia: executive summary, Atherosclerosis. 2014: 232(2):410-413. Cholesterol in VLDL [Mass/Vol] 37 mg/dL High NINF - 30 mg/dL [facility] Cholesterol non HDL [Mass/Vol] 135 mg/dL High NINF - 130 mg/dL [facility] Comment on above: <130 mg/dL, Optimal 130-159 mg/dL, Near optimal/above optimal 160-189 mg/dL, Borderline high 190-219 mg/dL, High >219 mg/dL, Very high Secondary prevention optimal non HDL Cholesterol levels are recommended to be <100 mg/dL Cholesterol.total/Chol esterol in HDL [Mass ratio] 4.46 {ratio} NINF - 5.10 [facility] Fasting Time 12 hrs [facility] Interpretation and review of laboratory results Abnormal [facility] Triglyceride [Mass/Vol] 187 mg/dL High NINF - 150 mg/dL [facility] Comment on above: <150 mg/dL, Normal 150-199 mg/dL, Borderline high 200-499 mg/dL, High >499 mg/dL, Very high Cholesterol [Mass/Vol] 174 mg/dL Normal <200 [facility] Comment on above: Order Comment: Speci men Type: BLOOD SPECIMENOrdering Facility: [facility] Address: [address] [place] [address] Result Comment: <200 mg/dL, Desirable 200-239 mg/dL, Borderline high >239 mg/dL, High Performed By: #### 2 4323-8, 60020-4 ####[facility] LABCLIA [id number] [place] [address] [place] Cholesterol in HDL [Mass/Vol] 39 mg/dL Low >39 [facility] Comment on above: Order Comment: Krystali men Type: BLOOD SPECIMENOrdering Facility: [facility] Address: [address] [place] [address] Result Comment: 40-5 9 mg/dL, Acceptable >59 mg/dL, High: Negative risk factor for coronary heart disease <40 mg/dL, Low: Positive risk factor for coronary heart disease Performed By: #### 2 4323-8, 43797-6 ####[facility] LABCLIA [id number] [place] [address] [place] Cholesterol in LDL [Mass/Vol] 98 mg/dL Normal <100 [facility] Comment on above: Order Comment: Krystali men Type: BLOOD SPECIMENOrdering Facility: [facility] Address: [address] [place] [address] Result Comment: <100 mg/dL, Optimal 100-129 mg/dL, Near optimal/above optimal 130-159 mg/dL, Borderline high 160-189 mg/dL, High >189 mg/dL, Very high Secondary prevention optimal LDL Cholesterol levels are recommended to be < 70 mg/dL Performed By: #### 2 4323-8, 76313-6 ####[facility] LABCLIA [id number] [place] [address] [place] Cholesterol in LDL/Cholesterol in HDL [Mass ratio] 2.51 {ratio} Normal <2.54 [facility] Comment on above: Order Comment: Jeffy brooks Type: BLOOD SPECIMENOrdering Facility: [facility] Address: [address] [place] [address] Result Comment: Refe rence: 1. National Cholesterol Education Program ATP III Guideline At-A-Glance Quick Desk Reference: National Heart, Lung, and Blood Alpine. National Institutes of Health. 2001: NIH Publication No. 01-3305. 2. An International Atherosclerosis Society position paper: global recommendations for the management of dyslipidemia: executive summary, Atherosclerosis. 2014: 232(2):410-413. Performed By: #### 2 4323-8, 81621-4 ####[facility] LABIA [id number] [place] [address] [place] Cholesterol in VLDL [Mass/Vol] 37 mg/dL High <30 [facility] Comment on above: Order Comment: Jeffy brooks Type: BLOOD SPECIMENOrdering Facility: [facility] Address: [address] [place] [address] Performed By: #### 2 4323-8, 98923-6 ####[facility] LABIA [id number] [place] [address] [place] Cholesterol non HDL [Mass/Vol] 135 mg/dL High <130 [facility] Comment on above: Order Comment: Jeffy brooks Type: BLOOD SPECIMENOrdering Facility: [facility] Address: [address] [place] [address] Result Comment: <130 mg/dL, Optimal 130-159 mg/dL, Near optimal/above optimal 160-189 mg/dL, Borderline high 190-219 mg/dL, High >219 mg/dL, Very high Secondary prevention optimal non HDL Cholesterol levels are recommended to be <100 mg/dL Performed By: #### 2 4323-8, 69336-4 ####[facility] LABCLIA [id number] [place] [address] [place] Cholesterol.total/Chol esterol in HDL [Mass ratio] 4.46 {ratio} Normal <5.10 [facility] Comment on above: Order Comment: Speci men Type: BLOOD SPECIMENOrdering Facility: [facility] Address: [address] [place] [address] Performed By: #### 2 4323-8, 50328-4 ####[facility] LABCLIA [id number] [place] [address] [place] FASTING TIME 12 hrs Normal [facility] Comment on above: Order Comment: Speci men Type: BLOOD SPECIMENOrdering Facility: [facility] Address: [address] [place] [address] Performed By: #### 2 4323-8, ####[facility] LABCLIA [id number] [place] [address] [place] Triglyceride [Mass/Vol] 187 mg/dL High <150 [facility] Comment on above: Order Comment: Speci men Type: BLOOD SPECIMENOrdering Facility: [facility] Address: [address] [place] [address] Result Comment: <150 mg/dL, Normal 150-199 mg/dL, Borderline high 200-499 mg/dL, High >499 mg/dL, Very high Performed By: #### 2 4323-8, 67313-3 ####[facility] LABCLIA [id number] [place] [address] [place] No Panel Informationon 06-10 [facility] International normalized rat io (INR) calculationOrdered By: Torri Mendoza on 06-01-2024 INR Coag (Bld) [Relative time] 2.5 {INR} [facility] Prothrombin Time w/INRon INR Coag (PPP) [Relative time] 2.5 {INR} Normal [facility] Comment on above: Performed By: #### L 9200.0000 #### [facility] Laboratory [address] [place], [address] Prothrombin timeOrdered By: Torri Mendoza on 06-01-2024 PT Coag (PPP) [Time] 26.6 s High 11.7-14.9 [facility] Comment on above: Performed By: #### L 9200.0000 #### [facility] [address] [place], [address] Prothrombin Time w/INRon INR Coag (PPP) [Relative time] 3.2 {INR} Normal [facility] Comment on above: Performed By: #### L 300.3900 ####[facility] [id number] [place], [address] PT Coag (PPP) [Time] 32.6 s High 11.7-14.9 [facility] Comment on above: Performed By: #### L 300.3900 ####[facility] [id number] [place], [address] PT D/C Summary (1)on 024 PT D/C Summary (1) [facility] Physical Therapy [address] [place] [address] / REHABILITATION SERVICES DISCHARGE SUMMARY MR#: [id number] Acct: [id number] Name: LARA TAPIA Rep #: [id number] : 1945 78 From: Thao ESTRADA Referring [...] next 5 visits machines to transfer to Airpush. (leg press, seated hip abd, Hamstring etc). [...] please feel free to call me at [phone]. Thank you for the referral of this patient. Sincerely, Thao Aguero, MPT Balance/Gait/Functional tests Balance/Special Test Scores Functional Gait Assessment Score: 18 % Disability: 40.0000 CATSIB Score (Max score 120 seconds): 120 Lower Extremity Functional Score: 50 Improvement % Improvement: 40 04/22/24 1030 CC: Dr. Harlan Ford DO; Dr. Ag Ledesma MD Signed Normal [facility] Prothrombin Time w/INRon INR Coag (PPP) [Relative time] 2.2 {INR} Normal [facility] Comment on above: Performed By: #### L 9200.0000 #### [facility] [address] [place], [address] PT Coag (PPP) [Time] 24.2 s High 11.7-14.9 [facility] Comment on above: Performed By: #### L 9200.0000 #### [facility] [address] [place], [place], [address] CNPNon 03-13-2024 [facility] Telephone ([facility]) -- LARA TAPIA ([id number]) 1945 M Date Time Provider Department 03/13/24 MATHEUS LAGOS [facility] During your visit today, we recorded [...] Date Reviewed: 03/11/2024 Reviewed by: [place], Zehra, SUMAC TANNER - Fully Assessed Reason for Visit: Results [...] all other days - blood sugar diagnostic (HiredTOUCH ULTRA TEST) test strip Test blood sugars [...] eyes, eyelids, and deep fold areas. - Ninnxdkipru-Hcxhxqrbl-Zgc C-Mn (GLUCOSAMINE CHONDROITIN MAXSTR) 500-400 mg ORAL [...] unilateral 04/07/2009 07/12/2016 HTN (hypertension) [I10] 04/25/2010 Jpt-xsnr-phkd proliferative diabetic retinopath*05/28/2014 05/28/2014 Nonproliferative diabetic retinopathy (HCC) [E1*05/28/2014 11/13/2019 Uncontrolled type 2 diabetes mellitus with neur*04/14/2015 04/14/2015 Uncontrolled type 2 diabet (more content not included)... Normal [facility] Bacteria Wnd Culton 03-11-20 24 Bacteria identified Cx Nom (Wound) ORGANISM ID: 1 Moderate mixed oral and respiratory horace GRAM STAIN: No organisms seen No Polymorphonuclear Leukocytes Abnormal [facility] Comment on above: Performed By: #### 6 462-6 #### [facility] CLIA [id number] [address] [place] [address] OF [facility] CNOVon 03-11-2024 CNOV Office Visit ([facility] ) -- LARA TAPIA ([id number]) 1945 M Date Time Provider Department 03/11/24 1:30 PM TYRELL CORRIGAN [facility] During your visit today, we recorded the following information about you: Temperature Pulse Respiration Blood pressure 98.4 degrees 69/minute 16/minute 132/76 Weight 89.9 kg Tyrell Corrigan APRN.[employer] 03/11/2024 1:53 PM Signed Subjective Patient came [...] Itching/Rash (sc (more content not included)... Normal [facility] HSV+VZV DNA JOSÉ+probe Ql (Un sp spec)on 03-11-2024 HSV 1 DNA JOSÉ+probe Ql (Unsp spec) Not detected Normal Not Detected [facility] Comment on above: Order Comment: Speci men Type: BLOOD SPECIMEN Ordering Facility: [facility] Address: [address] [place] [address] Performed By: #### 1 988-5 #### [facility] CLIA [id number] [address] [place] [address] [place] HSV 2 DNA JOSÉ+probe Ql (Unsp spec) Not detected Normal Not Detected [facility] Comment on above: Order Comment: Speci men Type: BLOOD SPECIMEN Ordering Facility: [facility] Address: [address] [place] [address] Performed By: #### 1 988-5 #### [facility] CLIA [id number] [address] [place] [address] [place] VZV DNA JOSÉ+probe Ql (Unsp spec) Not detected Normal Not Detected [facility] Comment on above: Order Comment: Speci men Type: BLOOD SPECIMEN Ordering Facility: [facility] Address: [address] [place] [address] Performed By: #### 1 988-5 #### [facility] CLIA [id number] [address] [place] [address] [place] Patricia 03-04-2024 [facility] Telephone ([facility]) -- LARA TAIPA ([id number]) 1945 M Date Time Provider Department 03/04/24 [facility] visit today, we recorded the [...] all other days - blood sugar diagnostic (HiredTOUCH ULTRA TEST) test strip Test blood sugars [...] eyes, eyelids, and deep fold areas. - Vkhcyqrsrjd-Rweiunjmh-Ast C-Mn (GLUCOSAMINE CHONDROITIN MAXSTR) 500-400 mg ORAL [...] unilateral 04/07/2009 07/12/2016 HTN (hypertension) [I10] 04/25/2010 Tng-mfzb-uvhh proliferative diabetic retinopath*05/28/2014 05/28/2014 Nonproliferative diabetic retinopathy (HCC) [E1*05/28/2014 11/13/2019 Uncontrolled type 2 diabetes mellitus with neur*04/14/2015 04/14/2015 Uncontrolled type 2 diabe (more content not included)... Normal [facility] B. burgdorferi IgG and IgM p edgar (S)on 03-03-2024 B. burgdorferi IgG+IgM Qn (S) Negative Normal Negative [facility] Comment on above: Order Comment: Speci men Type: BLOOD SPECIMENOrdering Facility: [facility] Address: [address] [place] [address] Result Comment: Rece nt infection with B. burgdorferi sensu lato cannot be excluded if the specimen collected within four weeks after the onset of signs and symptoms or within six weeks after a known tick exposure. Clinical and epidemiological correlation is required. Performed By: #### 3 4942-3 ####[facility] LABCLIA [id number] [address] STATES OF [facility] CNOVon 03-03-2024 CNOV Office Visit (FAMPWS ) -- LARA TAPIA ([id number]) 1945 M Date Time Provider Department 03/03/24 [...] (scalp psoriasis) (more content not included)... Normal [facility] CRP SerPl-mCncon 03-03-2024 CRP [Mass/Vol] mg/L Normal <0.9 [facility] Comment on above: Order Comment: Speci men Type: BLOOD SPECIMEN Ordering Facility: [facility] Address: [address] [place] [address] Performed By: #### 1 988-5 #### [facility] CLIA [id number] [address] [place] [address] [place] Centromere Ab IF Ql (S)on Centromere Ab Qn (S) <0.2 Normal <1.0 [facility] Comment on above: Order Comment: Speci men Type: BLOOD SPECIMEN Ordering Facility: [facility] Address: [address] [place] [address] Result Comment: Anti -centromere antibody is used as in aid in diagnosis of systemic sclerosis. Clinical correlation is required. Test Methodology: Multiplex flow immunoassay. Performed By: #### 1 988-5 #### [facility] CLIA [id number] [address] [place] [address] [place] CENTROMERE AB QUAL Negative Normal Negative [facility] Comment on above: Order Comment: Speci men Type: BLOOD SPECIMEN Ordering Facility: [facility] Address: [address] [place] [address] Performed By: #### 1 988-5 #### [facility] CLIA [id number] [address] [place] [address] [place] Chromatin Ab Qnon 03-03-2024 CHROMATIN AB QUAL Negative Normal Negative [facility] Comment on above: Order Comment: Speci men Type: BLOOD SPECIMEN Ordering Facility: [facility] Address: [address] [place] [address] Performed By: #### 1 988-5 #### [facility] CLIA [id number] [address] [place] [address] [place] Chromatin Ab SerPl-aCncon Chromatin Ab Qn <0.2 Normal <1.0 [facility] Comment on above: Order Comment: Speci men Type: BLOOD SPECIMEN Ordering Facility: [facility] Address: [address] [place] [address] Result Comment: Test Methodology: Multiplex flow immunoassay. Performed By: #### 1 988-5 #### [facility] CLIA [id number] [address] [place] [address] [place] JAVIER Jo1 Ab Ser-aCncon 2023 Ashlyn-1 extractable nuclear Ab Qn (S) <0.2 Normal <1.0 [facility] Comment on above: Order Comment: Speci men Type: BLOOD SPECIMENOrdering Facility: [facility] Address: [address] [place] [address] Performed By: #### 1 1565-9, 84900-2, 37224-1, 98951-2, 82642-0, 46333-1 ####[facility] [id number] [place] [address] [place] JAVIER KINDERGARTEN TUTOR Ab Ser-aCncon 2023 Ribonucleoprotein extractable nuclear Ab Qn (S) <0.2 Normal <1.0 [facility] Comment on above: Order Comment: Speci men Type: BLOOD SPECIMEN Ordering Facility: [facility] Address: [address] [place] [address] Performed By: #### 1 988-5 #### [facility] CLIA [id number] [address] [place] [address] [place] JAVIER SM IgG Ser-aCncon 2023 Bledsoe extractable nuclear IgG Qn (S) <0.2 Normal <1.0 [facility] Comment on above: Order Comment: Speci men Type: BLOOD SPECIMENOrdering Facility: [facility] Address: [address] [place] [address] Performed By: #### 1 1565-9, 36687-2, 00321-0, 86909-3, 48129-4, 93749-8 ####[facility] [id number] [place] [address] [place] JAVIER SS-A Ab Ser-aCncon 03-03 Sjogrens syndrome-A extractable nuclear Ab Qn (S) <0.2 Normal <1.0 [facility] Comment on above: Order Comment: Speci men Type: BLOOD SPECIMEN Ordering Facility: [facility] Address: [address] [place] [address] Result Comment: Test Methodology: Multiplex flow immunoassay. Performed By: #### 1 988-5 #### [facility] CLIA [id number] [address] [place] [address] [place] JAVIER SS-B Ab Ser-aCncon 03-03 Sjogrens syndrome-B extractable nuclear Ab Qn (S) <0.2 Normal <1.0 [facility] Comment on above: Order Comment: Speci men Type: BLOOD SPECIMEN Ordering Facility: [facility] Address: [address] [place] [address] Result Comment: Anti -SSB (anti-La) antibody is used as an aid in diagnosis of a variety of systemic autoimmune diseases, especially for Sjogren's syndrome and systemic lupus erythematosus. Clinical correlation is required. Test Methodology: Multiplex flow immunoassay. Performed By: #### 1 988-5 #### [facility] CLIA [id number] [address] [place] [address] [place] ESR Westergren method (Bld) [Velocity]on 03-03-2024 ESR (Bld) [Velocity] 8 mm/h Normal 0-15 [facility] Comment on above: Order Comment: Speci men Type: BLOOD SPECIMENOrdering Facility: [facility] Address: [address] [place] [address] Performed By: #### 4 537-7 ####[facility] [id number] [place] [address] [place] Ashlyn-1 extractable nuclear Ab Qn (S)on 03-03-2024 ASHLYN 1 ANTIBODY QUAL Negative Normal Negative [facility] Comment on above: Order Comment: Speci men Type: BLOOD SPECIMENOrdering Facility: [facility] Address: [address] [place] [address] Result Comment: Anti -ASHLYN-1 antibody is used as an aid in diagnosis of polymyositis and dermatomyositis especially with pulmonary involvement. A negative result cannot rule out polymyositis or dermatomyositis. Clinical correlation is required. Test Methodology: Multiplex flow immunoassay. Performed By: #### 1 1565-9, 71801-5, 79758-3, 85463-1, 74965-5, 66970-9 ####[facility] [id number] [place] [address] [place] Nuclear Ab IA Ql (S)on 03-03 JESUS SCR QUAL Negative Normal Negative [facility] Comment on above: Order Comment: Speci men Type: BLOOD SPECIMENOrdering Facility: [facility] Address: [address] [place] [address] Result Comment: The qualitative antinuclear antibody screen test performed using the following antigens: dsDNA, Chromatin, Ribosomal P, SS-A 60, SS-A 52, SS-B, Sm, SmRNP, KINDERGARTEN TUTOR A, KINDERGARTEN TUTOR 68, Scl-70, Ashlyn-1, and Centromere B. Methodology: Multiplex flow immunoassay. Performed By: #### 1 1565-9, 01932-9, 79381-9, 21842-3, 98353-9, 06609-3 ####[facility] [id number] [place] [address] [place] Ribonucleoprotein extractabl e nuclear Ab Qn (S)on 03-03-2024 ANTI-KINDERGARTEN TUTOR QUAL Negative Normal Negative [facility] Comment on above: Order Comment: Jeffy brooks Type: BLOOD SPECIMEN Ordering Facility: [facility] Address: [address] [place] [address] Performed By: #### 1 988-5 #### [facility] CLIA [id number] [address] [place] [address] [place] RIBOSOMAL KINDERGARTEN TUTOR QUAL Negative Normal Negative [facility] Comment on above: Order Comment: Jeffy brooks Type: BLOOD SPECIMEN Ordering Facility: [facility] Address: [address] [place] [address] Result Comment: Anti -Ribosomal RNA (Ribosomal P) antibody is used as an aid in diagnosis of systemic autoimmune diseases especially systemic lupus erythematosus and mixed connective tissue disease. Cross-reactivity with Anti-bledsoe antibody is not uncommon. Clinical correlation is required. Test Methodology: Multiplex flow immunoassay. Performed By: #### 1 988-5 #### [facility] CLIA [id number] [address] [place] [address] [place] SCL-70 extractable nuclear I gG IA Qn (S)on 03-03-2024 SCLERODERMA AB QUAL Negative Normal Negative [facility] Comment on above: Order Comment: Jeffy brokos Type: BLOOD SPECIMENOrdering Facility: [facility] Address: [address] [place] [address] Performed By: #### 1 1565-9, 89739-5, 96114-0, 26998-1, 93925-8, 57343-3 ####[facility] [id number] [place] [address] [place] SCLERODERMA IGG AB <0.2 Normal <1.0 [facility] Comment on above: Order Comment: Jeffy brooks Type: BLOOD SPECIMENOrdering Facility: [facility] Address: [address] [place] [address] Result Comment: Scl- 70/Scleroderma antibody test is used as an aid in diagnosis of systemic sclerosis especially the diffuse cutaneous form. A negative result cannot rule out systemic sclerosis. The final interpretation should consider clinical picture and other test results such as anti-centromere antibody. Test Methodology: Multiplex flow immunoassay. Performed By: #### 1 1565-9, 23743-2, 62439-8, 85649-8, 25445-0, 28730-6 ####[facility] [id number] [facility] [place] [address] [place] Sjogrens syndrome-A extracta ble nuclear Ab Qn (S)on 03-03-2024 SSA ANTIBODY QUAL Negative Normal Negative [facility] Comment on above: Order Comment: Speci men Type: BLOOD SPECIMEN Ordering Facility: [facility] Address: [address] [place] [address] Performed By: #### 1 988-5 #### [facility] CLIA [id number] [address] [place] [address] [place] Sjogrens syndrome-B extracta ble nuclear Ab Qn (S)on 03-03-2024 SSB ANTIBODY QUAL Negative Normal Negative [facility] Comment on above: Order Comment: Speci men Type: BLOOD SPECIMEN Ordering Facility: [facility] Address: [address] [place] [address] Performed By: #### 1 988-5 #### [facility] CLIA [id number] [address] [place] [address] [place] Bledsoe extractable nuclear Ig G Qn (S)on 03-03-2024 SM ANTIBODY QUAL Negative Normal Negative [facility] Comment on above: Order Comment: Speci men Type: BLOOD SPECIMENOrdering Facility: [facility] Address: [address] [place] [address] Result Comment: Anti -Sm (Bledsoe) antibody is used as an aid in diagnosis of systemic lupus erythematosus and its presence is associated with renal disease. A negative result cannot rule out systemic lupus erythematosus. Clinical correlation is required. Test Methodology: Multiplex flow immunoassay. Performed By: #### 1 1565-9, 22961-1, 81516-3, 46137-7, 82847-7, 17138-5 ####[facility] [id number] [place] [id number] [place] Hemoglobin A1con 02-27-2024 HbA1c (Bld) [Mass fraction] 6.0 % High 3.8-5.6 [facility] Comment on above: Order Comment: JOANN Steiner ADD RESULTS TO DR. FORD PER PATIENT. Result Comment: Norm al < 5.7 % Prediabetic 5.7 - 6.4 % Diabetic >or= 6.5 % Please note range changes. Performed By: #### L 9200.0000 #### [facility] [address] [place], [address] Patricia [facility]-11-2024 [facility] LARA TAPIA ([id number]) 1945 M Date Time Provider Department 02/11/24 [facility] During your visit today, we recorded the [...] back. Fax papers back to FAX #: [phone]. Thank you. Ida Gan APRN.JIGNA 02/12/2024 4:54 PM Signed I do not see this paperwork. I am willing to sign if able. 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 - blood sugar diagnostic ([facility] ULTRA TEST) test strip Test blood sugars [...] eyes, eyelids, and deep fold areas. - Oszhtsvbrce-Mswvhcnjl-Qct C-Mn (GLUCOSAMINE CHONDROITIN MAXSTR) 500-400 mg ORAL [...] neoplasm of*04/23 (more content not included)... Normal [facility] Prothrombin Time w/INRon INR Coag (PPP) [Relative time] 2.5 {INR} Normal [facility] Comment on above: Performed By: #### L 300.3900 #### [facility] [address] [place], [place], [id number] PT Coag (PPP) [Time] 26.8 s High 11.7-14.9 [facility] Comment on above: Performed By: #### L 300.3900 #### [facility] [address] [place], [place], [address] CNPNon 01-30-2024 [facility] -- LARA TAPIA ([id number]) 1945 M Date Time Provider Department 01/30/24 [facility] During your visit today, we recorded the following information about you: Mary Rosado LPN 01/30/2024 10:42 AM Signed [facility] calling asking for copy of last office visit to be faxed to [phone]. Printed note from 11/2023 and faxed. She [...] eyes, eyelids, and deep fold areas. - Tnwzagepfuw-Xpzaqipfg-Wxf C-Mn (GLUCOSAMINE CHONDROITIN MAXSTR) 500-400 mg ORAL [...] unilateral 04/07/2009 07/12/2016 HTN (hypertension) [I10] 04/25/2010 Opf-mgqg-cefd proliferative diabetic retinopath*05/28/2014 05/28/2014 Nonproliferative diabetic retinopathy (HCC) [E1*05/28/2014 11/13/2019 Uncontrolled type 2 diabetes mellitus with neur*04/14/2015 04/14/2015 Uncontrolled type 2 diabetes mellitus with yang*04/14/2015 Other seborrheic keratosis [L82.1] 12/20/2008 Acute pain of left shoulder [M25.512] 07/12/2016 Hypersplenism [D73.1] 07/22/2016 Fatty metamorphosis of liver [K76.0] 07/22/2016 Obesity, Class I, BMI 30-34. (more content not included)... Normal [facility] - CoagulationOrde red By: Torri Mendoza on 10-29-2023 INR Coag (Bld) [Relative time] 2.8 {INR} [facility] PT Coag (PPP) [Time] 29.6 s 11.7-14.9 [facility] - CoagulationOrde red By: Torri Mendoza on 10-01-2023 INR Coag (Bld) [Relative time] 2.1 {INR} [facility] PT Coag (PPP) [Time] 23.2 s 11.7-14.9 [facility] - CoagulationOrde red By: Torri Mendoza on 09-03-2023 INR Coag (Bld) [Relative time] 2.5 {INR} [facility] PT Coag (PPP) [Time] 26.8 s 11.7-14.9 [facility] Absolute lymphocyte countOrd ered By: Torri Mendoza on 08-27-2023 Lymphocytes Auto (Unsp spec) [#/Vol] 0.40 10*3/uL 0.83-4.51 [facility] Automated lymphocyte count a s percentage of total leukocytesOrdered By: Torri Mendoza on 08-27-2023 Lymphocytes/100 WBC Auto (Unsp spec) 13.4 % 19-41 [facility] Basophil percentageOrdered B y: Torri Mendoza on 08-27-2023 Basophils/100 WBC (Bld) 0.7 % 0-1 [facility] Bilirubin [Mass/Vol] 1.30 mg/dL 0.20-1.00 [facility] Comment on above: For patients on eltr ombopag therapy, use of Dimension [place] TBIL is not recommended. Chloride [Moles/Vol] 103 mmol/L 98-107 [facility] Eosinophils/100 WBC (Bld) 1.7 % 0-5 [facility] Glucose [Mass/Vol] 111 mg/dL 74-106 [facility] Comment on above: Fasting Glucose resu lt from 100 to 125 mg/dL suggests IMPAIRED HOMEOSTASIS per A.D.A. criteria. Hemoglobin (Bld) [Mass/Vol] 14.0 g/dL 13.0-16.5 [facility] Monocytes/100 WBC (Bld) 10.4 % 0-10 [facility] Neutrophils (Bld) [#/Vol] 2.2 10*3/uL 2.0-7.7 [facility] Neutrophils/100 WBC (Bld) 73.5 % 47-70 [facility] Potassium [Moles/Vol] 4.0 mmol/L 3.5-5.1 [facility] Protein [Mass/Vol] 7.0 g/dL 6.4-8.2 [facility] Sodium [Moles/Vol] 138 mmol/L 136-145 [facility] WBC (Bld) [#/Vol] 3.0 10*3/uL 4.4-11.0 [facility] Determination of erythrocyte mean corpuscular volume (MCV)Ordered By: Torri Mendoza on 08-27-2023 MCV (RBC) [Entitic vol] 93.6 fL 80-94 [facility] Erythrocyte distribution wid th ratioOrdered By: Torri Mendoza on 08-27-2023 Erythrocyte distribution width (RBC) [Ratio] 12.8 % 11.6-14.6 [facility] Erythrocyte distribution wid th standard deviationOrdered By: Torri Mendoza on 08-27-2023 Erythrocyte distribution width (RBC) [Entitic vol] 44.5 fL 35.1-43.9 [facility] Hematocrit Auto (Bld) [Volum e fraction]Ordered By: Torri Mendoza on 08-27-2023 Hematocrit (Bld) [Volume fraction] 41.2 % 40-54 [facility] Immature granulocytes/100 WB C Auto (Bld)Ordered By: Torri Mendoza on 08-27-2023 Immature granulocytes/100 WBC (Bld) 0.300 % 0.0-0.9 [facility] Comment on above: IG% - Immature Granu locytes (promyelocytes, myelocytes and metamyelocytes) > 1% indicates that a LEFT SHIFT is Present. Laboratory - Chemistry and C hemistry - challengeOrdered By: Torri Mendoza on 08-27-2023 Albumin/Globulin [Mass ratio] 1.2 {ratio} 0.9-2.4 [facility] ALP [Catalytic activity/Vol] 67 U/L 45-117 [facility] ALT [Catalytic activity/Vol] 30 U/L 16-61 [facility] CO2 [Moles/Vol] 28.0 mmol/L 21.0-32.0 [facility] Cobalamin (Vitamin B12) [Mass/Vol] 1331 pg/mL 211-911 [facility] Globulin (S) [Mass/Vol] 3.2 g/dL 2.2-4.2 [facility] Urea nitrogen/Creatinine [Mass ratio] 17.8 mg/mg 10-20 [facility] Laboratory - Hematology and Cell countsOrdered By: Torri Mendoza on 08-27-2023 MCH (RBC) [Entitic mass] 31.8 pg 27.0-32.0 [facility] MCHC (RBC) [Mass/Vol] 34.0 g/dL 32-36 [facility] Nucleated RBC/100 WBC (Bld) [Ratio] 0 % 0-5 [facility] Platelet mean volume (Bld) [Entitic vol] 9.0 fL 6.2-12.0 [facility] Platelets (Bld) [#/Vol] 73 10*3/uL 150-450 [facility] No Panel InformationOrdered By: Torri Mendoza on 08-27-2023 Estimated GFR (MDRD) Amer 86 mL/min >60 [facility] Comment on above: GFR Calc Estimated GFR (MDRD) Non-Af Amer 71 mL/min >60 [facility] Comment on above: Non- GFR Calc RBC Auto (Bld) [#/Vol]Ordere d By: Torri Mendoza on 08-27-2023 RBC (Bld) [#/Vol] 4.40 10*6/uL 4.6-6.2 [facility] Review by pathologistOrdered By: Torri Mendoza on 08-27-2023 Pathologist review Javier (Unsp spec) [Interp] Reviewed [facility] Comment on above: Previous reported re sult: Katharine rojas Edited by: RGOSUBHASH on 08/28/23:1230Leukopenia.Mild Thrombocytopenia.Clinical correlation necessary.Guilherme Marquez M.D. 08/28/23 AMENDED REPORT 08/28/23 1230 PATH REV previously reported as: Katharine rojas Serum or plasma calcium myranda urement (mass/volume)Ordered By: Torri Mendoza on 08-27-2023 Calcium [Mass/Vol] 9.6 mg/dL 8.5-10.1 [facility] Serum or plasma creatinine m easurement (mass/volume)Ordered By: Torri Mendoza on 08-27-2023 Creatinine [Mass/Vol] 1.07 mg/dL 0.70-1.30 [facility] Comment on above: The validity of the calculated GFR & GFRAA in patients over 70 years has not been determined. Clinical correlation is essential. Serum or plasma thyroid stim ulating hormone (TSH) measurement (units/volume)Ordered By: Torri Mendoza on 08-27-2023 TSH Qn 2.05 uIU/mL 0.358-3.74 [facility] Serum or plasma urea nitroge n measurement (mass/volume)Ordered By: Torri Mendoza on 08-27-2023 Urea nitrogen [Mass/Vol] 19 mg/dL 7-18 [facility] Thin prep Papanicolaou smear with manual screeningOrdered By: Torri Mendoza on 08-27-2023 Thin prep Papanicolaou smear with manual screening 3.8 g/dL 3.2-5.0 [facility] Thin prep Papanicolaou smear with manual screening 30 U/L 15-37 [facility] Thin prep Papanicolaou smear with manual screening 7 5-15 [facility] Whole blood hemoglobin A1c/t otal hemoglobin ratio (mass fraction)Ordered By: Torri Mendoza on 08-27-2023 HbA1c (Bld) [Mass fraction] 7.4 % 3.8-5.6 [facility] Comment on above: Normal < 5.7 % Predi abetic 5.7 - 6.4 % Diabetic >or= 6.5 % Please note range changes. Basophil percentageOrdered B y: Torri Mendoza on 08-06-2023 Bilirubin [Mass/Vol] 1.70 mg/dL 0.20-1.00 [facility] Comment on above: For patients on eltr ombopag therapy, use of Dimension [place] TBIL is not recommended. Chloride [Moles/Vol] 102 mmol/L 98-107 [facility] Cholesterol [Mass/Vol] 163 mg/dL <200 [facility] Comment on above: <200 mg/dL Desirable 200-240 mg/dL Borderline >240 mg/dL High Risk Glucose [Mass/Vol] 123 mg/dL 74-106 [facility] Comment on above: Fasting Glucose resu lt from 100 to 125 mg/dL suggests IMPAIRED HOMEOSTASIS per A.D.A. criteria. Potassium [Moles/Vol] 4.1 mmol/L 3.5-5.1 [facility] Protein [Mass/Vol] 7.3 g/dL 6.4-8.2 [facility] Sodium [Moles/Vol] 135 mmol/L 136-145 [facility] Triglyceride [Mass/Vol] 306 mg/dL <199 [facility] Comment on above: The drugs N-Acetylcy steine and Metamizole may falsely depress this assay.Serum Triglycerides Reference Interval Normal <150 mg/dL Borderline high 150 - 199 mg/dL High 200 - 499 mg/dL Very High > or = 500 mg/dL High density lipoprotein (HD L) measurementOrdered By: Torri Mendoza on 08-06-2023 Cholesterol in HDL (Body fld) [Mass/Vol] 42 mg/dL >40 [facility] Comment on above: The drugs N-Acetylcy steine and Metamizole may falsely depress this assay. Reference Range HDL <40 mg/dL Low HDL Cholesterol HDL >or= 60 mg/dL High HDL Cholesterol International normalized rat io (INR) calculationOrdered By: Torri Mendoza on 08-06-2023 INR Coag (PPP) [Relative time] 1.1 {INR} [facility] Laboratory - Chemistry and C hemistry - challengeOrdered By: Torri Mendoza on 08-06-2023 Albumin/Globulin [Mass ratio] 1.0 {ratio} 0.9-2.4 [facility] ALP [Catalytic activity/Vol] 65 U/L 45-117 [facility] ALT [Catalytic activity/Vol] 33 U/L 16-61 [facility] CO2 [Moles/Vol] 29.0 mmol/L 21.0-32.0 [facility] Globulin (S) [Mass/Vol] 3.6 g/dL 2.2-4.2 [facility] Urea nitrogen/Creatinine [Mass ratio] 17.7 mg/mg 10-20 [facility] Laboratory - CoagulationOrde red By: Torri Mendoza on 08-06-2023 PT Coag (PPP) [Time] 14.5 s 11.7-14.9 [facility] Low density lipoprotein (LDL ) cholesterol measurementOrdered By: Torri Mendoza on 08-06-2023 Cholesterol in LDL (Body fld) [Moles/Vol] 60 mg/dL 0-130 [facility] No Panel InformationOrdered By: Torri Mendoza on 08-06-2023 Estimated GFR (MDRD) Amer 105 mL/min >60 [facility] Comment on above: GFR Calc Estimated GFR (MDRD) Non-Af Amer 87 mL/min >60 [facility] Comment on above: Non- GFR Calc Serum or plasma calcium myranda urement (mass/volume)Ordered By: Torri Mendoza on 08-06-2023 Calcium [Mass/Vol] 9.6 mg/dL 8.5-10.1 [facility] Serum or plasma creatinine m easurement (mass/volume)Ordered By: Torri Mendoza on 08-06-2023 Creatinine [Mass/Vol] 0.90 mg/dL 0.70-1.30 [facility] Comment on above: The validity of the calculated GFR & GFRAA in patients over 70 years has not been determined. Clinical correlation is essential. Serum or plasma urea nitroge n measurement (mass/volume)Ordered By: Torri Mendoza on 08-06-2023 Urea nitrogen [Mass/Vol] 16 mg/dL 7-18 [facility] Thin prep Papanicolaou smear with manual screeningOrdered By: Torri Mendoza on 08-06-2023 Thin prep Papanicolaou smear with manual screening 3.7 g/dL 3.2-5.0 [facility] Thin prep Papanicolaou smear with manual screening 27 U/L 15-37 [facility] Thin prep Papanicolaou smear with manual screening 4 5-15 [facility] Very low density lipoprotein (VLDL) cholesterol measurementOrdered By: Torri Mendoza on 08-06-2023 Cholesterol in VLDL Calc [Moles/Vol] 61 mg/dL 5-40 [facility] Absolute lymphocyte countOrd ered By: Torri Mendoza on 07-30-2023 Lymphocytes Auto (Unsp spec) [#/Vol] 0.45 10*3/uL 0.83-4.51 [facility] Automated lymphocyte count a s percentage of total leukocytesOrdered By: Torri Mendoza on 07-30-2023 Lymphocytes/100 WBC Auto (Unsp spec) 14.6 % 19-41 [facility] Basophil percentageOrdered B y: Torri Mendoza on 07-30-2023 Basophils/100 WBC (Bld) 0.6 % 0-1 [facility] Eosinophils/100 WBC (Bld) 1.6 % 0-5 [facility] Hemoglobin (Bld) [Mass/Vol] 13.7 g/dL 13.0-16.5 [facility] Monocytes/100 WBC (Bld) 10.7 % 0-10 [facility] Neutrophils (Bld) [#/Vol] 2.2 10*3/uL 2.0-7.7 [facility] Neutrophils/100 WBC (Bld) 72.2 % 47-70 [facility] WBC (Bld) [#/Vol] 3.1 10*3/uL 4.4-11.0 [facility] Blood manual differential co mment interpretation (narrative result)Ordered By: Torri Mendoza on 07-30-2023 Manual differential comment Javier (Bld) [Interp] SCANNED [facility] Determination of erythrocyte mean corpuscular volume (MCV)Ordered By: Torri Mendoza on 07-30-2023 MCV (RBC) [Entitic vol] 95.1 fL 80-94 [facility] Erythrocyte distribution wid th ratioOrdered By: Torri Mendoza on 07-30-2023 Erythrocyte distribution width (RBC) [Ratio] 13.1 % 11.6-14.6 [facility] Erythrocyte distribution wid th standard deviationOrdered By: Torri Mendoza on 07-30-2023 Erythrocyte distribution width (RBC) [Entitic vol] 45.7 fL 35.1-43.9 [facility] Hematocrit Auto (Bld) [Volum e fraction]Ordered By: Torri Mendoza on 07-30-2023 Hematocrit (Bld) [Volume fraction] 40.9 % 40-54 [facility] Immature granulocytes/100 WB C Auto (Bld)Ordered By: Torri Mendoza on 07-30-2023 Immature granulocytes/100 WBC (Bld) 0.300 % 0.0-0.9 [facility] Comment on above: IG% - Immature Granu locytes (promyelocytes, myelocytes and metamyelocytes) > 1% indicates that a LEFT SHIFT is Present. International normalized rat io (INR) calculationOrdered By: Torri Mendoza on 07-30-2023 INR Coag (PPP) [Relative time] 1.1 {INR} [facility] Laboratory - CoagulationOrde red By: Torri Mendoza on 07-30-2023 PT Coag (PPP) [Time] 14.6 s 11.7-14.9 [facility] Laboratory - Hematology and Cell countsOrdered By: Torri Mendoza on 07-30-2023 MCH (RBC) [Entitic mass] 31.9 pg 27.0-32.0 [facility] MCHC (RBC) [Mass/Vol] 33.5 g/dL 32-36 [facility] Nucleated RBC/100 WBC (Bld) [Ratio] 0 % 0-5 [facility] Platelets (Bld) [#/Vol] 72 10*3/uL 150-450 [facility] Platelet mean volume Sascha-Ec ker (Bld) [Entitic vol]Ordered By: Torri Mendoza on 07-30-2023 Platelet mean volume (Bld) [Entitic vol] 9.0 fL 6.2-12.0 [facility] RBC Auto (Bld) [#/Vol]Ordere d By: Torri Mendoza on 07-30-2023 RBC (Bld) [#/Vol] 4.30 10*6/uL 4.6-6.2 [facility] Review by pathologistOrdered By: Torri Mendoza on 07-30-2023 Pathologist review Javier (Unsp spec) [Interp] Reviewed [facility] Comment on above: LeukopeniaModerate T hrombocytopenia.Clinical correlation necessary.Guilherme Marquez M.D. 07/31/23 International normalized rat io (INR) calculationOrdered By: Torri Mendoza on 07-23-2023 INR Coag (PPP) [Relative time] 1.2 {INR} [facility] Laboratory - CoagulationOrde red By: Torri Mendoza on 07-23-2023 PT Coag (PPP) [Time] 14.9 s 11.7-14.9 [facility] Absolute lymphocyte countOrd ered By: Manan Mendosa on 01-25-2023 Lymphocytes Auto (Unsp spec) [#/Vol] 0.25 10*3/uL 0.83-4.51 [facility] Basophil percentageOrdered B y: Manan Mendosa on 01-25-2023 Basophils/100 WBC (Bld) 0.4 % 0-1 [facility] Bilirubin [Mass/Vol] 1.10 mg/dL 0.20-1.00 [facility] Comment on above: For patients on eltr ombopag therapy, use of Dimension [place] TBIL is not recommended. Chloride [Moles/Vol] 104 mmol/L 98-107 [facility] Eosinophils/100 WBC (Bld) 0.4 % 0-5 [facility] Glucose [Mass/Vol] 65 mg/dL 74-106 [facility] Neutrophils (Bld) [#/Vol] 1.8 10*3/uL 2.0-7.7 [facility] Neutrophils/100 WBC (Bld) 75.8 % 47-70 [facility] Potassium [Moles/Vol] 3.7 mmol/L 3.5-5.1 [facility] Protein [Mass/Vol] 6.1 g/dL 6.4-8.2 [facility] Sodium [Moles/Vol] 138 mmol/L 136-145 [facility] WBC (Bld) [#/Vol] 2.4 10*3/uL 4.4-11.0 [facility] Blood erythrocytes count (nu mber/volume)Ordered By: Manan Mendosa on 01-25-2023 RBC (Bld) [#/Vol] 3.35 10*6/uL 4.6-6.2 [facility] Blood hemoglobin measurement (mass/volume)Ordered By: Manan Mendosa on 01-25-2023 Hemoglobin (Bld) [Mass/Vol] 10.7 g/dL 13.0-16.5 [facility] Blood lymphocytes/100 leukoc ytesOrdered By: Manan Mendosa on 01-25-2023 Lymphocytes/100 WBC (Bld) 10.6 % 19-41 [facility] Blood manual differential co mment interpretation (narrative result)Ordered By: Manan Mendosa on 01-25-2023 Manual differential comment Javier (Bld) [Interp] SCANNED [facility] Blood monocytes/100 leukocyt esOrdered By: Manan Mendosa on 01-25-2023 Monocytes/100 WBC (Bld) 12.8 % 0-10 [facility] Blood platelet adequacy dete ction by light microscopyOrdered By: Manan Mendosa on 01-25-2023 Platelets LM Ql (Bld) [facility]D [facility] platelet mean volumeOr dered By: Manan Mendosa on 01-25-2023 Platelet mean volume (Bld) [Entitic vol] 9.5 fL 6.2-12.0 [facility] Determination of erythrocyte mean corpuscular volume (MCV)Ordered By: Manan Mendosa on 01-25-2023 MCV (RBC) [Entitic vol] 94.6 fL 80-94 [facility] Glucose Glucometer (BldC) [M ass/Vol]Ordered By: Gertrude Momin on 01-25-2023 Glucose [Mass/Vol] 187 mg/dL 74-106 [facility] Comment on above: MANAGEMENT OF PATIEN T CARE PER NURSING PROTOCOL Hematocrit Auto (Bld) [Volum e fraction]Ordered By: Manan Mendosa on 01-25-2023 Hematocrit (Bld) [Volume fraction] 31.7 % 40-54 [facility] Laboratory - Chemistry and C hemistry - challengeOrdered By: Manan Mendosa on 01-25-2023 ALP [Catalytic activity/Vol] 42 U/L 45-117 [facility] ALT [Catalytic activity/Vol] 30 U/L 16-61 [facility] CO2 [Moles/Vol] 27.0 mmol/L 21.0-32.0 [facility] Free T4 [Mass/Vol] 1.11 ng/dL 0.76-1.46 [facility] Globulin (S) [Mass/Vol] 3.1 g/dL 2.2-4.2 [facility] Urea nitrogen/Creatinine [Mass ratio] 28.4 mg/mg 10-20 [facility] Laboratory - Hematology and Cell countsOrdered By: Manan Mendosa on 01-25-2023 Erythrocyte distribution width (RBC) [Entitic vol] 47.2 fL 35.1-43.9 [facility] Erythrocyte distribution width (RBC) [Ratio] 13.7 % 11.6-14.6 [facility] Immature granulocytes/100 WBC (Bld) 0.000 % 0.0-0.9 [facility] Comment on above: IG% - Immature Granu locytes (promyelocytes, myelocytes and metamyelocytes) > 1% indicates that a LEFT SHIFT is Present. MCH (RBC) [Entitic mass] 31.9 pg 27.0-32.0 [facility] Nucleated RBC/100 WBC (Bld) [Ratio] 0 % 0-5 [facility] MCHC Auto (RBC) [Mass/Vol]Or dered By: Manan Mendosa on 01-25-2023 MCHC (RBC) [Mass/Vol] 33.8 g/dL 32-36 [facility] No Panel InformationOrdered By: Manan Mendosa on 01-25-2023 Estimated Creatinine Clearance Calc 57.66 ml/min [facility] Estimated GFR (MDRD) Amer 85 mL/min >60 [facility] Comment on above: GFR Calc Estimated GFR (MDRD) Non-Af Amer 70 mL/min >60 [facility] Comment on above: Non- GFR Calc Free Triiodothyronine (T3) pg/dL 1.2 pg/mL 2.18-3.98 [facility] Platelets bldOrdered By: Mireya Mendosa on 01-25-2023 Platelets (Bld) [#/Vol] 52 10*3/uL 150-450 [facility] Review by pathologistOrdered By: Manan Mendosa on 01-25-2023 Pathologist review Javier (Unsp spec) [Interp] Reviewed [facility] Comment on above: Previous reported re sult: Katharine rojas Edited by: RGOSUBHASH on 01/28/23:1356Pancytopenia.Leukopenia and Neutropenia.Macrocytic anemia.ThrombocytopeniaClinical correlation necessary.Guilherme Marquez M.D. 01/28/23 AMENDED REPORT 01/28/23 1356 PATH REV previously reported as: Katharine rojas Serum or plasma albumin myranda urement (mass/volume)Ordered By: Manan Mendosa on 01-25-2023 Albumin [Mass/Vol] 3.0 g/dL 3.2-5.0 [facility] Serum or plasma albumin/glob ulin mass ratioOrdered By: Manan Mendosa on 01-25-2023 Albumin/Globulin [Mass ratio] 1.0 {ratio} 0.9-2.4 [facility] Serum or plasma calcium myranda urement (mass/volume)Ordered By: Manan Mendosa on 01-25-2023 Calcium [Mass/Vol] 8.7 mg/dL 8.5-10.1 [facility] Serum or plasma creatinine m easurement (mass/volume)Ordered By: Manan Mendosa on 01-25-2023 Creatinine [Mass/Vol] 1.09 mg/dL 0.70-1.30 [facility] Comment on above: The validity of the calculated GFR & GFRAA in patients over 70 years has not been determined. Clinical correlation is essential. Serum or plasma urea nitroge n measurement (mass/volume)Ordered By: Manan Mendosa on 01-25-2023 Urea nitrogen [Mass/Vol] 31 mg/dL 7-18 [facility] Thin prep Papanicolaou smear with manual screeningOrdered By: Manan Mendosa on 01-25-2023 Thin prep Papanicolaou smear with manual screening 30 U/L 15-37 [facility] Thin prep Papanicolaou smear with manual screening 7 5-15 [facility] Absolute lymphocyte countOrd ered By: Parvez Thornton on 01-24-2023 Lymphocytes Auto (Unsp spec) [#/Vol] 0.15 10*3/uL 0.83-4.51 [facility] Basophil percentageOrdered B y: Parvez Thornton on 01-24-2023 Basophil percentage 25-50 SEEN /hpf 0-5 [facility] Basophils/100 WBC (Bld) 0.3 % 0-1 [facility] Chloride [Moles/Vol] 99 mmol/L 98-107 [facility] Eosinophils/100 WBC (Bld) 0.0 % 0-5 [facility] Glucose [Mass/Vol] 258 mg/dL 74-106 [facility] Comment on above: Glucose result great er than or equal to 200 mg/dLsuggests DIABETES MELLITUS per A.D.A. criteria. Neutrophils (Bld) [#/Vol] 5.6 10*3/uL 2.0-7.7 [facility] Neutrophils/100 WBC (Bld) 88.6 % 47-70 [facility] Potassium [Moles/Vol] 3.7 mmol/L 3.5-5.1 [facility] Sodium [Moles/Vol] 132 mmol/L 136-145 [facility] WBC (Bld) [#/Vol] 6.3 10*3/uL 4.4-11.0 [facility] Bilirubin Test strip Ql (U)O rdered By: Parvez Thornton on 01-24-2023 Bilirubin Ql (U) 1 mg/dL Negative [facility] Comment on above: COLOR OF URINE MAY A FFECT DIPSTICK RESULTS. Blood erythrocytes count (nu mber/volume)Ordered By: Parvez Thornton on 01-24-2023 RBC (Bld) [#/Vol] 3.99 10*6/uL 4.6-6.2 [facility] Blood hemoglobin measurement (mass/volume)Ordered By: Parvez Thornton on 01-24-2023 Hemoglobin (Bld) [Mass/Vol] 12.6 g/dL 13.0-16.5 [facility] Blood lymphocytes/100 leukoc ytesOrdered By: Parvez Thornton on 01-24-2023 Lymphocytes/100 WBC (Bld) 2.4 % 19-41 [facility] Blood manual differential co mment interpretation (narrative result)Ordered By: Parvez Thornton on 01-24-2023 Manual differential comment Javier (Bld) [Interp] COMMENT [facility] Comment on above: LYMPHOPENIA. Blood monocytes/100 leukocyt esOrdered By: Parvez Thornton on 01-24-2023 Monocytes/100 WBC (Bld) 8.5 % 0-10 [facility] Blood platelet adequacy dete ction by light microscopyOrdered By: Parvez Thornton on 01-24-2023 Platelets LM Ql (Bld) MOD DEC ADEQ [facility] Blood platelet mean volumeOr dered By: Parvez Thornton on 01-24-2023 Platelet mean volume (Bld) [Entitic vol] 9.1 fL 6.2-12.0 [facility] Culture, urineOrdered By: Link Thornton on 01-24-2023 Bacteria identified Cx Nom (U) Escherichia coli [facility] Determination of erythrocyte mean corpuscular volume (MCV)Ordered By: Parvez Thornton on 01-24-2023 MCV (RBC) [Entitic vol] 95.0 fL 80-94 [facility] Hematocrit Auto (Bld) [Volum e fraction]Ordered By: Parvez Thornton on 01-24-2023 Hematocrit (Bld) [Volume fraction] 37.9 % 40-54 [facility] Hyaline casts LM.LPF (Urine sed) [#/Area]Ordered By: Parvez Thornton on 01-24-2023 Hyaline casts (Urine sed) [#/Area] 0 /[LPF] 0-5 [facility] INR in Blood by Coagulation assayOrdered By: Parvez Thornton on 01-24-2023 INR Coag (Bld) [Relative time] 1.2 {INR} [facility] Ketones Test strip Ql (U)Ord ered By: Parvez Thornton on 01-24-2023 Ketones Ql (U) 15 mg/dl Negative [facility] Laboratory - Chemistry and C hemistry - challengeOrdered By: Manan Mendosa on 01-24-2023 Cobalamin (Vitamin B12) [Mass/Vol] 932 pg/mL 211-911 [facility] Laboratory - Chemistry and C hemistry - challengeOrdered By: Parvez Thornton on 01-24-2023 CO2 [Moles/Vol] 25.0 mmol/L 21.0-32.0 [facility] Free T4 [Mass/Vol] 1.23 ng/dL 0.76-1.46 [facility] Urea nitrogen/Creatinine [Mass ratio] 17.1 mg/mg 10- [facility] Laboratory - CoagulationOrde red By: Parvez Thornton on 01-24-2023 aPTT Coag (Bld) [Time] 30.3 s 24.1-36.2 [facility] PT Coag (PPP) [Time] 15.5 s 11.7-14.9 [facility] Laboratory - Hematology and Cell countsOrdered By: Parvez Thornton on 01-24-2023 Erythrocyte distribution width (RBC) [Entitic vol] 47.0 fL 35.1-43.9 [facility] Erythrocyte distribution width (RBC) [Ratio] 13.3 % 11.6-14.6 [facility] Immature granulocytes/100 WBC (Bld) 0.200 % 0.0-0.9 [facility] Comment on above: IG% - Immature Granu locytes (promyelocytes, myelocytes and metamyelocytes) > 1% indicates that a LEFT SHIFT is Present. MCH (RBC) [Entitic mass] 31.6 pg 27.0-32.0 [facility] Nucleated RBC/100 WBC (Bld) [Ratio] 0 % 0-5 [facility] MCHC Auto (RBC) [Mass/Vol]Or dered By: Parvez Thornton on 01-24-2023 MCHC (RBC) [Mass/Vol] 33.2 g/dL 32-36 [facility] Mucus LM Ql (Urine sed)Order ed By: Parvez Thornton on 01-24-2023 Mucus Ql (Urine sed) 0 SEEN /hpf [facility] Nitrite Test strip Ql (U)Ord ered By: Parvez Thornton on 01-24-2023 Nitrite Ql (U) Positive Negative [facility] No Panel InformationOrdered By: Parvez Thornton on 01-24-2023 Estimated Creatinine Clearance Calc 44.89 ml/min [facility] Estimated GFR (MDRD) Amer 63 mL/min >60 [facility] Comment on above: GFR Calc Estimated GFR (MDRD) Non-Af Amer 52 mL/min >60 [facility] Comment on above: Non- GFR Calc Thyroid Stimulating Hormone (TSH) 0.33 uIU/mL 0.358-3.74 [facility] Platelets bldOrdered By: Ok Thornton on 01-24-2023 Platelets (Bld) [#/Vol] 63 10*3/uL 150-450 [facility] Protein Test strip Ql (U)Ord ered By: Parvez Thornton on 01-24-2023 Protein Ql (U) 100 mg/dl Negative [facility] Serum or plasma calcium myranda urement (mass/volume)Ordered By: Parvez Thornton on 01-24-2023 Calcium [Mass/Vol] 9.5 mg/dL 8.5-10.1 [facility] Serum or plasma creatinine m easurement (mass/volume)Ordered By: Parvez Thornton on 01-24-2023 Creatinine [Mass/Vol] 1.40 mg/dL 0.70-1.30 [facility] Comment on above: The validity of the calculated GFR & GFRAA in patients over 70 years has not been determined. Clinical correlation is essential. Serum or plasma urea nitroge n measurement (mass/volume)Ordered By: Parvez Thornton on 01-24-2023 Urea nitrogen [Mass/Vol] 24 mg/dL 7-18 [facility] Squamous epithelial cells de tection in urine sediment by light microscopyOrdered By: Parvez Thornton on 01-24-2023 Epithelial cells.squamous LM Ql (Urine sed) 0-5 SEEN /hpf 0-5 [facility] Thin prep Papanicolaou smear with manual screeningOrdered By: Parvez Thornton on 01-24-2023 Thin prep Papanicolaou smear with manual screening 8 5-15 [facility] Urine blood detectionOrdered By: Parvez Tohrnton on 01-24-2023 RBC Ql (U) 25 /ul Negative [facility] RBC Ql (U) 0-5 SEEN /hpf 0-5 [facility] Urine clarityOrdered By: Ok Thornton on 01-24-2023 Clarity (U) Cloudy Clear [facility] Urine color determinationOrd ered By: Parvez Thornton on 01-24-2023 Color (U) Yellow Yellow [facility] Urine glucose detectionOrder ed By: Parvez Thornton on 01-24-2023 Glucose Ql (U) 250 mg/dl Normal [facility] Urine leukocyte esterase det ection by dipstickOrdered By: Parvez Thornton on 01-24-2023 Leukocyte esterase Test strip Ql (U) 500 /ul Negative [facility] Urine pHOrdered By: Parvez Thornton on 01-24-2023 pH (U) 5.0 [pH] 5.0 - 8.0 [facility] Urine sediment bacteria coun t by microscopy (number/high power field)Ordered By: Parvez Thornton on 01-24-2023 Bacteria LM.HPF (Urine sed) [#/Area] 3 /[HPF] None Seen [facility] Urine specific gravity measu rementOrdered By: Parvez Thornton on 01-24-2023 Specific gravity (U) [Rel density] 1.020 1.002-1.03 0 [facility] Urobilinogen Auto test strip Ql (U)Ordered By: Parvez Thornton on 01-24-2023 Urobilinogen Ql (U) 1 mg/dl Normal [facility] Absolute lymphocyte countOrd ered By: Clay Kidd on 01-05-2023 Lymphocytes Auto (Unsp spec) [#/Vol] 0.34 10*3/uL 0.83-4.51 [facility] Basophil percentageOrdered B y: Clay Kidd on 01-05-2023 Basophil percentage 50-100 SEEN /hpf 0-5 [facility] Basophils/100 WBC (Bld) 0.1 % 0-1 [facility] Bilirubin [Mass/Vol] 2.80 mg/dL 0.20-1.00 [facility] Comment on above: For patients on eltr ombopag therapy, use of Dimension [place] TBIL is not recommended. Chloride [Moles/Vol] 95 mmol/L 98-107 [facility] Eosinophils/100 WBC (Bld) 0.0 % 0-5 [facility] Glucose [Mass/Vol] 166 mg/dL 74-106 [facility] Comment on above: Fasting Glucose resu lt greater than or equal to 126 mg/dL suggests DIABETES MELLITUS per A.D.A. criteria. Neutrophils (Bld) [#/Vol] 6.6 10*3/uL 2.0-7.7 [facility] Neutrophils/100 WBC (Bld) 87.8 % 47-70 [facility] Potassium [Moles/Vol] 3.7 mmol/L 3.5-5.1 [facility] Protein [Mass/Vol] 7.8 g/dL 6.4-8.2 [facility] Sodium [Moles/Vol] 131 mmol/L 136-145 [facility] WBC (Bld) [#/Vol] 7.5 10*3/uL 4.4-11.0 [facility] Bilirubin Test strip Ql (U)O rdered By: Clay Kidd on 01-05-2023 Bilirubin Ql (U) Negative Negative [facility] Blood erythrocytes count (nu mber/volume)Ordered By: Clay Kidd on 01-05-2023 RBC (Bld) [#/Vol] 4.16 10*6/uL 4.6-6.2 [facility] Blood hemoglobin measurement (mass/volume)Ordered By: Clay Kidd on 01-05-2023 Hemoglobin (Bld) [Mass/Vol] 13.4 g/dL 13.0-16.5 [facility] Blood lymphocytes/100 leukoc ytesOrdered By: Clay Kidd on 01-05-2023 Lymphocytes/100 WBC (Bld) 4.5 % 19-41 [facility] Blood manual differential co mment interpretation (narrative result)Ordered By: Clay Kidd on 01-05-2023 Manual differential comment Javier (Bld) [Interp] SCANNED [facility] Blood monocytes/100 leukocyt esOrdered By: Clay Kidd on 01-05-2023 Monocytes/100 WBC (Bld) 6.7 % 0-10 [facility] Blood platelet mean volumeOr dered By: Clay Kidd on 01-05-2023 Platelet mean volume (Bld) [Entitic vol] 8.9 fL 6.2-12.0 [facility] Culture, urineOrdered By: Randi Kidd on 01-05-2023 Bacteria identified Cx Nom (U) Escherichia coli [facility] Determination of erythrocyte mean corpuscular volume (MCV)Ordered By: Clay Kidd on 01-05-2023 MCV (RBC) [Entitic vol] 94.2 fL 80-94 [facility] Hematocrit Auto (Bld) [Volum e fraction]Ordered By: Clay Kidd on 01-05-2023 Hematocrit (Bld) [Volume fraction] 39.2 % 40-54 [facility] Ketones Test strip Ql (U)Ord ered By: Clay Kidd on 01-05-2023 Ketones Ql (U) 50 mg/dl Negative [facility] Laboratory - Chemistry and C hemistry - challengeOrdered By: Clay Kidd on 01-05-2023 ALP [Catalytic activity/Vol] 74 U/L 45-117 [facility] ALT [Catalytic activity/Vol] 35 U/L 16-61 [facility] CO2 [Moles/Vol] 25.0 mmol/L 21.0-32.0 [facility] Globulin (S) [Mass/Vol] 4.1 g/dL 2.2-4.2 [facility] Lipase [Catalytic activity/Vol] 48 U/L 13-75 [facility] Comment on above: Please note:LIPASE r evised reference range effective 22. New Lipase methodology. Expected to produce lower values than the previous assay method. NEW Reference Range: 13 - 75 U/L Urea nitrogen/Creatinine [Mass ratio] 15.3 mg/mg 10-20 [facility] Laboratory - Hematology and Cell countsOrdered By: Clay Kidd on 01-05-2023 Erythrocyte distribution width (RBC) [Entitic vol] 46.4 fL 35.1-43.9 [facility] Erythrocyte distribution width (RBC) [Ratio] 13.4 % 11.6-14.6 [facility] Immature granulocytes/100 WBC (Bld) 0.900 % 0.0-0.9 [facility] Comment on above: IG% - Immature Granu locytes (promyelocytes, myelocytes and metamyelocytes) > 1% indicates that a LEFT SHIFT is Present. MCH (RBC) [Entitic mass] 32.2 pg 27.0-32.0 [facility] Nucleated RBC/100 WBC (Bld) [Ratio] 0 % 0-5 [facility] MCHC Auto (RBC) [Mass/Vol]Or dered By: Clay Kidd on 01-05-2023 MCHC (RBC) [Mass/Vol] 34.2 g/dL 32-36 [facility] Mucus LM Ql (Urine sed)Order ed By: Clay Kidd on 01-05-2023 Mucus Ql (Urine sed) 0 SEEN /hpf [facility] Nitrite Test strip Ql (U)Ord ered By: Clay Kidd on 01-05-2023 Nitrite Ql (U) Positive Negative [facility] No Panel InformationOrdered By: Clay Kidd on 01-05-2023 Troponin I High Sensitivity 13 pg/mL 3.0-78.0 [facility] Comment on above: Please Note: [place] t Units and Gender Specific Reference Ranges. For more information see Policy Stat Procedure [place] High Sensitivity Troponin (TNIH) and attachments. Estimated Creatinine Clearance Calc 50.68 ml/min [facility] Estimated GFR (MDRD) Amer 73 mL/min >60 [facility] Comment on above: GFR Calc Estimated GFR (MDRD) Non-Af Amer 60 mL/min >60 [facility] Comment on above: Non- GFR Calc Ethyl Alcohol Level < 3.0 mg/dL [facility] Comment on above: The serum:whole bloo d ethanol ratio is approximately 1.14and varies slightly with hematocrit. Medical Alcohol reference interval and critical value innon-tolerant individuals; 50 - 100 Impairment 100 Intoxication 100 - 250 Severe Poisoning 250 - 400 Deep/possible fatal coma Platelets bldOrdered By: Rozina Kidd on 01-05-2023 Platelets (Bld) [#/Vol] 68 10*3/uL 150-450 [facility] Protein Test strip Ql (U)Ord ered By: Clay Kidd on 01-05-2023 Protein Ql (U) 100 mg/dl Negative [facility] Serum or plasma albumin myranda urement (mass/volume)Ordered By: Clay Kidd on 01-05-2023 Albumin [Mass/Vol] 3.7 g/dL 3.2-5.0 [facility] Serum or plasma albumin/glob ulin mass ratioOrdered By: Clay Kidd on 01-05-2023 Albumin/Globulin [Mass ratio] 0.9 {ratio} 0.9-2.4 [facility] Serum or plasma calcium myranda urement (mass/volume)Ordered By: Clay Kidd on 01-05-2023 Calcium [Mass/Vol] 9.3 mg/dL 8.5-10.1 [facility] Serum or plasma creatinine m easurement (mass/volume)Ordered By: Clay Kidd on 01-05-2023 Creatinine [Mass/Vol] 1.24 mg/dL 0.70-1.30 [facility] Comment on above: The validity of the calculated GFR & GFRAA in patients over 70 years has not been determined. Clinical correlation is essential. Serum or plasma urea nitroge n measurement (mass/volume)Ordered By: Clay Kidd on 01-05-2023 Urea nitrogen [Mass/Vol] 19 mg/dL 7-18 [facility] Squamous epithelial cells de tection in urine sediment by light microscopyOrdered By: lCay Kidd on 01-05-2023 Epithelial cells.squamous LM Ql (Urine sed) 0 SEEN /hpf 0-5 [facility] Thin prep Papanicolaou smear with manual screeningOrdered By: Clay Kidd on 01-05-2023 Thin prep Papanicolaou smear with manual screening 29 U/L 15-37 [facility] Thin prep Papanicolaou smear with manual screening 11 5-15 [facility] Urine blood detectionOrdered By: Clay Kidd on 01-05-2023 RBC Ql (U) 50 /ul Negative [facility] RBC Ql (U) 0 SEEN /hpf 0-5 [facility] Urine clarityOrdered By: Rozina Kidd on 01-05-2023 Clarity (U) Clear Clear [facility] Urine color determinationOrd ered By: Clay Kidd on 01-05-2023 Color (U) Yellow Yellow [facility] Urine glucose detectionOrder ed By: Clay Kidd on 01-05-2023 Glucose Ql (U) 100 mg/dl Normal [facility] Urine leukocyte esterase det ection by dipstickOrdered By: Clay Kidd on 01-05-2023 Leukocyte esterase Test strip Ql (U) 500 /ul Negative [facility] Urine pHOrdered By: Clay Chang gur on 01-05-2023 pH (U) 5.0 [pH] 5.0 - 8.0 [facility] Urine sediment bacteria coun t by microscopy (number/high power field)Ordered By: Clay Kidd on 01-05-2023 Bacteria LM.HPF (Urine sed) [#/Area] 2 /[HPF] None Seen [facility] Urine specific gravity measu rementOrdered By: Clay Kidd on 01-05-2023 Specific gravity (U) [Rel density] 1.020 1.002-1.03 0 [facility] Urobilinogen Auto test strip Ql (U)Ordered By: Clay Kidd on 01-05-2023 Urobilinogen Ql (U) Normal mg/dl Normal [facility] Basophil percentageOrdered B y: Abilio Manrique on 12-17-2022 Basophil percentage 0 SEEN /hpf 0-5 [facility] Bilirubin Test strip Ql (U)O rdered By: Abilio Manrique on 12-17-2022 Bilirubin Ql (U) Negative Negative [facility] Ketones Test strip Ql (U)Ord ered By: Abilio Manrique on 12-17-2022 Ketones Ql (U) Negative Negative [facility] Mucus LM Ql (Urine sed)Order ed By: Abilio Manrique on 12-17-2022 Mucus Ql (Urine sed) 0 SEEN /hpf [facility] Nitrite Test strip Ql (U)Ord ered By: Abilio Manrique on 12-17-2022 Nitrite Ql (U) Negative Negative [facility] Protein Test strip Ql (U)Ord ered By: Abilio Manrique on 12-17-2022 Protein Ql (U) 30 mg/dl Negative [facility] Squamous epithelial cells de tection in urine sediment by light microscopyOrdered By: Abilio Manrique on 12-17-2022 Epithelial cells.squamous LM Ql (Urine sed) 0 SEEN /hpf 0-5 [facility] Urine blood detectionOrdered By: Abilio Manrique on 12-17-2022 RBC Ql (U) 25 /ul Negative [facility] RBC Ql (U) 0-5 SEEN /hpf 0-5 [facility] Urine clarityOrdered By: Fazal Manrique on 12-17-2022 Clarity (U) Clear Clear [facility] Urine color determinationOrd ered By: Abilio Manrique on 12-17-2022 Color (U) Yellow Yellow [facility] Urine glucose detectionOrder ed By: Abilio Manrique on 12-17-2022 Glucose Ql (U) 1000 mg/dl Normal [facility] Urine leukocyte esterase det ection by dipstickOrdered By: Abilio Manrique on 12-17-2022 Leukocyte esterase Test strip Ql (U) Negative Negative [facility] Urine pHOrdered By: Abilio Lea ndes on 12-17-2022 pH (U) 6.0 [pH] 5.0 - 8.0 [facility] Urine sediment bacteria coun t by microscopy (number/high power field)Ordered By: Abilio Manrique on 12-17-2022 Bacteria LM.HPF (Urine sed) [#/Area] 0 /[HPF] None Seen [facility] Urine specific gravity measu rementOrdered By: Abilio Manrique on 12-17-2022 Specific gravity (U) [Rel density] 1.015 1.002-1.03 0 [facility] Urobilinogen Auto test strip Ql (U)Ordered By: Abilio Manrique on 12-17-2022 Urobilinogen Ql (U) Normal mg/dl Normal [facility] Absolute lymphocyte countOrd ered By: Abilio Manrique on 12-16-2022 Lymphocytes Auto (Unsp spec) [#/Vol] 0.31 10*3/uL 0.83-4.51 [facility] Basophil percentageOrdered B y: Abilio Manrique on 12-16-2022 Basophils/100 WBC (Bld) 0.2 % 0-1 [facility] Chloride [Moles/Vol] 103 mmol/L 98-107 [facility] Eosinophils/100 WBC (Bld) 0.2 % 0-5 [facility] Glucose [Mass/Vol] 257 mg/dL 74-106 [facility] Comment on above: Glucose result great er than or equal to 200 mg/dLsuggests DIABETES MELLITUS per A.D.A. criteria. Neutrophils (Bld) [#/Vol] 4.9 10*3/uL 2.0-7.7 [facility] Neutrophils/100 WBC (Bld) 84.7 % 47-70 [facility] Potassium [Moles/Vol] 3.8 mmol/L 3.5-5.1 [facility] Sodium [Moles/Vol] 139 mmol/L 136-145 [facility] WBC (Bld) [#/Vol] 5.8 10*3/uL 4.4-11.0 [facility] Blood erythrocytes count (nu mber/volume)Ordered By: Abilio Manrique on 12-16-2022 RBC (Bld) [#/Vol] 3.86 10*6/uL 4.6-6.2 [facility] Blood hemoglobin measurement (mass/volume)Ordered By: Abilio Manrique on 12-16-2022 Hemoglobin (Bld) [Mass/Vol] 12.4 g/dL 13.0-16.5 [facility] Blood lymphocytes/100 leukoc ytesOrdered By: Abilio Manrique on 12-16-2022 Lymphocytes/100 WBC (Bld) 5.4 % 19-41 [facility] Blood monocytes/100 leukocyt esOrdered By: Abilio Manrique on 12-16-2022 Monocytes/100 WBC (Bld) 9.0 % 0-10 [facility] Blood platelet adequacy dete ction by light microscopyOrdered By: Abilio Manrique on 12-16-2022 Platelets LM Ql (Bld) MOD DEC ADEQ [facility] Blood platelet mean volumeOr dered By: Abilio Manrique on 12-16-2022 Platelet mean volume (Bld) [Entitic vol] 8.8 fL 6.2-12.0 [facility] Determination of erythrocyte mean corpuscular volume (MCV)Ordered By: Abilio Manrique on 12-16-2022 MCV (RBC) [Entitic vol] 94.8 fL 80-94 [facility] Hematocrit Auto (Bld) [Volum e fraction]Ordered By: Abilio Manrique on 12-16-2022 Hematocrit (Bld) [Volume fraction] 36.6 % 40-54 [facility] Laboratory - Chemistry and C hemistry - challengeOrdered By: Abilio Manrique on 12-16-2022 CO2 [Moles/Vol] 28.0 mmol/L 21.0-32.0 [facility] Urea nitrogen/Creatinine [Mass ratio] 18.4 mg/mg 10-20 [facility] Laboratory - Hematology and Cell countsOrdered By: Abilio Manrique on 12-16-2022 Erythrocyte distribution width (RBC) [Entitic vol] 46.3 fL 35.1-43.9 [facility] Erythrocyte distribution width (RBC) [Ratio] 13.3 % 11.6-14.6 [facility] Immature granulocytes/100 WBC (Bld) 0.500 % 0.0-0.9 [facility] Comment on above: IG% - Immature Granu locytes (promyelocytes, myelocytes and metamyelocytes) > 1% indicates that a LEFT SHIFT is Present. MCH (RBC) [Entitic mass] 32.1 pg 27.0-32.0 [facility] Nucleated RBC/100 WBC (Bld) [Ratio] 0 % 0-5 [facility] MCHC Auto (RBC) [Mass/Vol]Or dered By: Abilio Manrique on 12-16-2022 MCHC (RBC) [Mass/Vol] 33.9 g/dL 32-36 [facility] Macrocytes detectionOrdered By: Abilio Manrique on 12-16-2022 Macrocytes Ql (Bld) RARE [facility] No Panel InformationOrdered By: Abilio Manrique on 12-16-2022 Estimated Creatinine Clearance Calc 54.17 ml/min [facility] Estimated GFR (MDRD) Amer 80 mL/min >60 [facility] Comment on above: GFR Calc Estimated GFR (MDRD) Non-Af Amer 66 mL/min >60 [facility] Comment on above: Non- GFR Calc Platelets bldOrdered By: Fazal Manrique on 12-16-2022 Platelets (Bld) [#/Vol] 73 10*3/uL 150-450 [facility] Serum or plasma acetone myranda urement (mass/volume)Ordered By: Abilio Manrique on 12-16-2022 Acetone [Mass/Vol] Negative NEG [facility] Serum or plasma calcium myranda urement (mass/volume)Ordered By: Abilio Manrique on 12-16-2022 Calcium [Mass/Vol] 9.3 mg/dL 8.5-10.1 [facility] Serum or plasma creatinine m easurement (mass/volume)Ordered By: Abilio Manrique on 12-16-2022 Creatinine [Mass/Vol] 1.14 mg/dL 0.70-1.30 [facility] Comment on above: The validity of the calculated GFR & GFRAA in patients over 70 years has not been determined. Clinical correlation is essential. Serum or plasma urea nitroge n measurement (mass/volume)Ordered By: Abilio Manrique on 12-16-2022 Urea nitrogen [Mass/Vol] 21 mg/dL 7-18 [facility] Thin prep Papanicolaou smear with manual screeningOrdered By: Abilioleta Manrique on 12-16-2022 Thin prep Papanicolaou smear with manual screening 8 5-15 [facility] Absolute lymphocyte countOrd ered By: Dr. López on 09-20-2022 Lymphocytes Auto (Unsp spec) [#/Vol] 0.26 10*3/uL 0.83-4.51 [facility] Basophil percentageOrdered B y: Dr. López on 09-20-2022 Basophil percentage 3.2 mg/dL 2.5-4.9 [facility] Basophils/100 WBC (Bld) 0.3 % 0-1 [facility] Chloride [Moles/Vol] 100 mmol/L 98-107 [facility] Eosinophils/100 WBC (Bld) 0.0 % 0-5 [facility] Glucose [Mass/Vol] 220 mg/dL 74-106 [facility] Comment on above: Glucose result great er than or equal to 200 mg/dLsuggests DIABETES MELLITUS per A.D.A. criteria. Neutrophils (Bld) [#/Vol] 3.0 10*3/uL 2.0-7.7 [facility] Neutrophils/100 WBC (Bld) 86.7 % 47-70 [facility] Potassium [Moles/Vol] 4.2 mmol/L 3.5-5.1 [facility] Sodium [Moles/Vol] 135 mmol/L 136-145 [facility] WBC (Bld) [#/Vol] 3.5 10*3/uL 4.4-11.0 [facility] Blood erythrocytes count (nu mber/volume)Ordered By: Dr. López on 09-20-2022 RBC (Bld) [#/Vol] 3.26 10*6/uL 4.6-6.2 [facility] Blood hemoglobin measurement (mass/volume)Ordered By: Dr. López on 09-20-2022 Hemoglobin (Bld) [Mass/Vol] 10.5 g/dL 13.0-16.5 [facility] Blood lymphocytes/100 leukoc ytesOrdered By: Dr. López on 09-20-2022 Lymphocytes/100 WBC (Bld) 7.5 % 19-41 [facility] Blood manual differential co mment interpretation (narrative result)Ordered By: Dr. López on 09-20-2022 Manual differential comment Javier (Bld) [Interp] SCANNED [facility] Blood monocytes/100 leukocyt esOrdered By: Dr. López on 09-20-2022 Monocytes/100 WBC (Bld) 5.2 % 0-10 [facility] Blood platelet adequacy dete ction by light microscopyOrdered By: Dr. López on 09-20-2022 Platelets LM Ql (Bld) MOD DEC ADEQ [facility] Blood platelet mean volumeOr dered By: Dr. López on 09-20-2022 Platelet mean volume (Bld) [Entitic vol] 8.4 fL 6.2-12.0 [facility] Determination of erythrocyte mean corpuscular volume (MCV)Ordered By: Dr. López on 09-20-2022 MCV (RBC) [Entitic vol] 94.8 fL 80-94 [facility] Glucose Glucometer (BldC) [M ass/Vol]Ordered By: Dr. López on 09-20-2022 Glucose [Mass/Vol] 175 mg/dL 74-106 [facility] Comment on above: MANAGEMENT OF PATIEN T CARE PER NURSING PROTOCOL Hematocrit Auto (Bld) [Volum e fraction]Ordered By: Dr. López on 09-20-2022 Hematocrit (Bld) [Volume fraction] 30.9 % 40-54 [facility] Laboratory - Chemistry and C hemistry - challengeOrdered By: Dr. López on 09-20-2022 CO2 [Moles/Vol] 25.0 mmol/L 21.0-32.0 [facility] Magnesium [Mass/Vol] 1.5 mg/dL 1.6-2.6 [facility] Urea nitrogen/Creatinine [Mass ratio] 18.9 mg/mg 10-20 [facility] Laboratory - Hematology and Cell countsOrdered By: Dr. López on 09-20-2022 Erythrocyte distribution width (RBC) [Entitic vol] 44.1 fL 35.1-43.9 [facility] Erythrocyte distribution width (RBC) [Ratio] 12.8 % 11.6-14.6 [facility] Immature granulocytes/100 WBC (Bld) 0.300 % 0.0-0.9 [facility] Comment on above: IG% - Immature Granu locytes (promyelocytes, myelocytes and metamyelocytes) > 1% indicates that a LEFT SHIFT is Present. MCH (RBC) [Entitic mass] 32.2 pg 27.0-32.0 [facility] Nucleated RBC/100 WBC (Bld) [Ratio] 0 % 0-5 [facility] MCHC Auto (RBC) [Mass/Vol]Or dered By: Dr. López on 09-20-2022 MCHC (RBC) [Mass/Vol] 34.0 g/dL 32-36 [facility] No Panel InformationOrdered By: Dr. López on 09-20-2022 Estimated Creatinine Clearance Calc 50.26 ml/min [facility] Estimated GFR (MDRD) Amer 71 mL/min >60 [facility] Comment on above: GFR Calc Estimated GFR (MDRD) Non-Af Amer 59 mL/min >60 [facility] Comment on above: Non- GFR Calc Platelets bldOrdered By: Dr. López on 09-20-2022 Platelets (Bld) [#/Vol] 68 10*3/uL 150-450 [facility] Review by pathologistOrdered By: Dr. López on 09-20-2022 Pathologist review Javier (Unsp spec) [Interp] Reviewed [facility] Comment on above: Previous reported re sult: Katharine rojas Edited by: RGOSUBHASH on 09/20/22:1213Pancytopenia.Leukopenia Macrocytic anemia.Moderate ThrombocytopeniaClinical correlation necessary.Guilherme Marquez M.D. 03/16/23 AMENDED REPORT 09/20/22 1213 PATH REV previously reported as: May foll Serum or plasma calcium myranda urement (mass/volume)Ordered By: Dr. López on 09-20-2022 Calcium [Mass/Vol] 8.9 mg/dL 8.5-10.1 [facility] Serum or plasma creatinine m easurement (mass/volume)Ordered By: Dr. López on 09-20-2022 Creatinine [Mass/Vol] 1.27 mg/dL 0.70-1.30 [facility] Comment on above: The validity of the calculated GFR & GFRAA in patients over 70 years has not been determined. Clinical correlation is essential. Serum or plasma urea nitroge n measurement (mass/volume)Ordered By: Dr. López on 09-20-2022 Urea nitrogen [Mass/Vol] 24 mg/dL 7-18 [facility] Thin prep Papanicolaou smear with manual screeningOrdered By: Dr. López on 09-20-2022 Thin prep Papanicolaou smear with manual screening 10 5-15 [facility] No Panel InformationOrdered By: Dr. López on 09-19-2022 Activated Clotting Time 287 sec 74-137 [facility] Whole blood hemoglobin A1c/t otal hemoglobin ratio (mass fraction)Ordered By: Dr. Roberts on 09-14-2022 HbA1c (Bld) [Mass fraction] 8.3 % 3.8-5.6 [facility] Comment on above: Normal < 5.7 % Predi abetic 5.7 - 6.4 % Diabetic >or= 6.5 % Please note range changes. Absolute lymphocyte countOrd ered By: Dr. Kirkpatrick on 09-06-2022 Lymphocytes Auto (Unsp spec) [#/Vol] 0.40 10*3/uL 0.83-4.51 [facility] Basophil percentageOrdered B y: Dr. Kirkpatrick on 09-06-2022 Basophils/100 WBC (Bld) 0.6 % 0-1 [facility] Chloride [Moles/Vol] 102 mmol/L 98-107 [facility] Eosinophils/100 WBC (Bld) 1.2 % 0-5 [facility] Glucose [Mass/Vol] 217 mg/dL 74-106 [facility] Comment on above: Glucose result great er than or equal to 200 mg/dLsuggests DIABETES MELLITUS per A.D.A. criteria. Neutrophils (Bld) [#/Vol] 2.5 10*3/uL 2.0-7.7 [facility] Neutrophils/100 WBC (Bld) 75.0 % 47-70 [facility] Potassium [Moles/Vol] 4.1 mmol/L 3.5-5.1 [facility] Sodium [Moles/Vol] 137 mmol/L 136-145 [facility] WBC (Bld) [#/Vol] 3.3 10*3/uL 4.4-11.0 [facility] Blood erythrocytes count (nu mber/volume)Ordered By: Dr. Kirkpatrick on 09-06-2022 RBC (Bld) [#/Vol] 4.18 10*6/uL 4.6-6.2 [facility] Blood hemoglobin measurement (mass/volume)Ordered By: Dr. Kirkpatrick on 09-06-2022 Hemoglobin (Bld) [Mass/Vol] 13.6 g/dL 13.0-16.5 [facility] Blood lymphocytes/100 leukoc ytesOrdered By: Dr. Kirkpatrick on 09-06-2022 Lymphocytes/100 WBC (Bld) 12.2 % 19-41 [facility] Blood manual differential co mment interpretation (narrative result)Ordered By: Dr. Kirkpatrick on 09-06-2022 Manual differential comment Javier (Bld) [Interp] SCANNED [facility] Blood monocytes/100 leukocyt esOrdered By: Dr. Kirkpatrick on 09-06-2022 Monocytes/100 WBC (Bld) 10.7 % 0-10 [facility] Blood platelet adequacy dete ction by light microscopyOrdered By: Dr. Kirkpatrick on 09-06-2022 Platelets LM Ql (Bld) MOD DEC ADEQ [facility] Blood platelet mean volumeOr dered By: Dr. Kirkpatrick on 09-06-2022 Platelet mean volume (Bld) [Entitic vol] 8.9 fL 6.2-12.0 [facility] Determination of erythrocyte mean corpuscular volume (MCV)Ordered By: Dr. Kirkpatrick on 09-06-2022 MCV (RBC) [Entitic vol] 95.2 fL 80-94 [facility] Glucose Glucometer (BldC) [M ass/Vol]Ordered By: Dr. Kirkpatrick on 09-06-2022 Glucose [Mass/Vol] 199 mg/dL 74-106 [facility] Comment on above: MANAGEMENT OF PATIEN T CARE PER NURSING PROTOCOL Hematocrit Auto (Bld) [Volum e fraction]Ordered By: Dr. Kirkpatrick on 09-06-2022 Hematocrit (Bld) [Volume fraction] 39.8 % 40-54 [facility] INR in Blood by Coagulation assayOrdered By: Dr. Kirkpatrick on 09-06-2022 INR Coag (Bld) [Relative time] 1.2 {INR} [facility] Laboratory - Chemistry and C hemistry - challengeOrdered By: Dr. Kirkpatrick on 09-06-2022 CO2 [Moles/Vol] 27.0 mmol/L 21.0-32.0 [facility] Urea nitrogen/Creatinine [Mass ratio] 23.1 mg/mg 10-20 [facility] Laboratory - CoagulationOrde red By: Dr. Kirkpatrick on 09-06-2022 aPTT Coag (Bld) [Time] 29.6 s 24.1-36.2 [facility] PT Coag (PPP) [Time] 14.7 s 11.7-14.9 [facility] Laboratory - Hematology and Cell countsOrdered By: Dr. Kirkpatrick on 09-06-2022 Erythrocyte distribution width (RBC) [Entitic vol] 44.7 fL 35.1-43.9 [facility] Erythrocyte distribution width (RBC) [Ratio] 12.7 % 11.6-14.6 [facility] Immature granulocytes/100 WBC (Bld) 0.300 % 0.0-0.9 [facility] Comment on above: IG% - Immature Granu locytes (promyelocytes, myelocytes and metamyelocytes) > 1% indicates that a LEFT SHIFT is Present. MCH (RBC) [Entitic mass] 32.5 pg 27.0-32.0 [facility] Nucleated RBC/100 WBC (Bld) [Ratio] 0 % 0-5 [facility] MCHC Auto (RBC) [Mass/Vol]Or dered By: Dr. Kirkpatrick on 09-06-2022 MCHC (RBC) [Mass/Vol] 34.2 g/dL 32-36 [facility] No Panel InformationOrdered By: Dr. Kirkpatrick on 09-06-2022 Estimated Creatinine Clearance Calc 55.25 ml/min [facility] Estimated GFR (MDRD) Amer 86 mL/min >60 [facility] Comment on above: GFR Calc Estimated GFR (MDRD) Non-Af Amer 71 mL/min >60 [facility] Comment on above: Non- GFR Calc Troponin I High Sensitivity 6 pg/mL 3.0-78.0 [facility] Comment on above: Please Note: [place] t Units and Gender Specific Reference Ranges. For more information see Policy Stat Procedure [place] High Sensitivity Troponin (TNIH) and attachments. Platelets bldOrdered By: Dr. Kirkpatrick on 09-06-2022 Platelets (Bld) [#/Vol] 79 10*3/uL 150-450 [facility] Review by pathologistOrdered By: Dr. Kirkpatrick on 09-06-2022 Pathologist review Javier (Unsp spec) [Interp] Katharine rojas [facility] Pathologist review Javier (Unsp spec) [Interp] Reviewed [facility] Comment on above: Previous reported re sult: Katharine rojas Edited by: RGOOD on 09/07/22:1321Leukopenia.Thrombocytopenia.Clinical correlation necessary.Guilherme Marquez M.D. 09/07/22 AMENDED REPORT 09/07/22 1321 PATH REV previously reported as: Katharine rojas Serum or plasma calcium myranda urement (mass/volume)Ordered By: Dr. Kirkpatrick on 09-06-2022 Calcium [Mass/Vol] 10.1 mg/dL 8.5-10.1 [facility] Serum or plasma creatinine m easurement (mass/volume)Ordered By: Dr. Kirkpatrick on 09-06-2022 Creatinine [Mass/Vol] 1.08 mg/dL 0.70-1.30 [facility] Comment on above: The validity of the calculated GFR & GFRAA in patients over 70 years has not been determined. Clinical correlation is essential. Serum or plasma urea nitroge n measurement (mass/volume)Ordered By: Dr. Kirkpatrick on 09-06-2022 Urea nitrogen [Mass/Vol] 25 mg/dL 7-18 [facility] Thin prep Papanicolaou smear with manual screeningOrdered By: Dr. Kirkpatrick on 09-06-2022 Thin prep Papanicolaou smear with manual screening 8 5-15 [facility] MAGNESIUM BLDon 02-01-2022 Magnesium [Mass/Vol] 1.5 mg/dL Low 1.7 - 2 .3 mg/dL [facility] .Auto DiffOrdered By: Zehra Cowart on 08-29-2021 Basophil, Absolute 0.00 103/mcL Normal 0.00-0.19 AO A uto Heme SS Comment on above: Performed By: #### A NSG, ABOG, ALB, ANEU, ADIFF, CBC #### [address] [address] Basophils/100 WBC (Bld) 0.5 % Normal 0.0-2.5 AO Auto Heme SS Comment on above: Performed By: #### A NSG, ABOG, ALB, ANEU, ADIFF, CBC #### [address] [address] Eosinophil, Absolute 0.00 103/mcL Normal 0.00-0.40 AO Auto Heme SS Comment on above: Performed By: #### A NSG, ABOG, ALB, ANEU, ADIFF, CBC #### [address] [address] Eosinophils/100 WBC (Bld) 1.2 % Normal 0.0-7.0 AO Auto Heme SS Comment on above: Performed By: #### A NSG, ABOG, ALB, ANEU, ADIFF, CBC #### [address] [address] Lymphocyte, Absolute 0.70 103/mcL Low 0.77-3.85 AO Auto Heme SS Comment on above: Performed By: #### A NSG, ABOG, ALB, ANEU, ADIFF, CBC #### [address] [address] Lymphocytes/100 WBC (Bld) 18.6 % Normal 10.0-50.0 AO Auto Heme SS Comment on above: Performed By: #### A NSG, ABOG, ALB, ANEU, ADIFF, CBC #### [place] [address] Monocyte, Absolute 0.40 103/mcL Normal 0.15-1.00 AO A uto Heme SS Comment on above: Performed By: #### A NSG, ABOG, ALB, ANEU, ADIFF, CBC #### [address] [address] Monocytes/100 WBC (Bld) 10.7 % Normal 1.7-13.0 AO Auto Heme SS Comment on above: Performed By: #### A NSG, ABOG, ALB, ANEU, ADIFF, CBC #### [place] [address] Neutrophils/100 WBC (Bld) 69.0 % Normal 37.0-80.0 AO Auto Heme SS Comment on above: Performed By: #### A NSG, ABOG, ALB, ANEU, ADIFF, CBC #### [place] [address] .NEUABSOrdered By: Zehra gonzalez on 08-29-2021 Neutrophil, Absolute 2.50 103/mcL Low 2.85-6.16 AO Auto Heme SS Comment on above: Performed By: #### A NSG, ABOG, ALB, ANEU, ADIFF, CBC #### [place] [address] CBCOrdered By: Zehra Cowart on 08-29-2021 Erythrocyte distribution width (RBC) [Ratio] 13.7 % Normal 11.5-14.5 AO Auto Heme SS Comment on above: Performed By: #### A NSG, ABOG, ALB, ANEU, ADIFF, CBC #### [place] [address] Hematocrit (Bld) [Volume fraction] 41.0 % Low 42.0-52.0 AO Auto Heme SS Comment on above: Performed By: #### A NSG, ABOG, ALB, ANEU, ADIFF, CBC #### [place] [address] MCH (RBC) [Entitic mass] 32.7 pg High 27.0-31.2 AO Auto Heme SS Comment on above: Performed By: #### A NSG, ABOG, ALB, ANEU, ADIFF, CBC #### [place] [address] MCV (RBC) [Entitic vol] 94.5 fL High 80.0-94.0 AO Auto Heme SS Comment on above: Performed By: #### A NSG, ABOG, ALB, ANEU, ADIFF, CBC #### [place] [address] Platelet mean volume (Bld) [Entitic vol] 6.8 fL Low 7.4-10.4 AO Auto Heme SS Comment on above: Performed By: #### A NSG, ABOG, ALB, ANEU, ADIFF, CBC #### [place] [address] CBCon 08-29-2021 Hgb 14.2 G/dL Normal 14.0-18.0 [facility] ([place]) Comment on above: Performed By: #### A NSG, ABOG, ALB, ANEU, ADIFF, CBC #### [place] [address] MCHC 34.6 G/dL Normal 31.8-35.4 [facility] ([place]) Comment on above: Performed By: #### A NSG, ABOG, ALB, ANEU, ADIFF, CBC #### [place] [address] Platelet 101 10 3/mcL Low 130-400 [facility] ([place]) Comment on above: Performed By: #### A NSG, ABOG, ALB, ANEU, ADIFF, CBC #### [place] [address] RBC 4.34 10 6/mcL Normal 4.04-6.13 [facility] ([place]) Comment on above: Performed By: #### A NSG, ABOG, ALB, ANEU, ADIFF, CBC #### [place] [address] WBC 3.60 10 3/mcL Low 4.60-10.80 [facility] ([place]) Comment on above: Performed By: #### A NSG, ABOG, ALB, ANEU, ADIFF, CBC #### [address] [address] Gel ABOOrdered By: Zehra gonzalez on 08-29-2021 ABO/Rh Interp Positive Invalid Interpretation Code AO BB SS Comment on above: Performed By: #### A NSG, ABOG, ALB, ANEU, ADIFF, CBC #### [place] [id number] [place], [place] [address] Gel ABSon 08-29-2021 Antibody Screen Gel Negative Normal [facility] ([place]) Comment on above: Performed By: #### A NSG, ABOG, ALB, ANEU, ADIFF, CBC #### [place] [id number] [place], [place] [address] LABORATORYOrdered By: Rebecca Sprague on 08-29-2021 Glucose [Mass/Vol] 125 mg/dL Invalid Interpretation Code 82 - 115 mg/dL [facility] Work Phone: LABORATORYOrdered By: Zehra Cowart on [...] 08/29/2021 12:04:35 PM Ordering Provider: RADHA CHOI [facility] ([place]) CT KNEE W/O CONTRAST LEFTon 08-21-2021 CT [...] 08/21/2021 2:34:36 PM Ordering Provider: RADHA Torres [facility] ([place]) A1Con 08-20-2021 HbA1c (Bld) [Mass fraction] 6.7 % High 4.3-6.4 [facility]) Comment on above: Performed By: #### A 1C #### [address] [address] .Auto Diffon 08-18-2021 Basophil, Absolute 0.00 10 3/mcL Normal 0.00-0.19 [facility]) Comment on above: Performed By: #### A NSG, ABOG, ALB, ANEU, ADIFF, CBC #### [address] [address] Basophils/100 WBC (Bld) 0.5 % Normal 0.0-2.5 [facility]) Comment on above: Performed By: #### A NSG, ABOG, ALB, ANEU, ADIFF, CBC #### [address] [address] Eosinophil, Absolute 0.00 10 3/mcL Normal 0.00-0.40 A [facility]) Comment on above: Performed By: #### A NSG, ABOG, ALB, ANEU, ADIFF, CBC #### [address] [address] Eosinophils/100 WBC (Bld) 0.8 % Normal 0.0-7.0 [facility]) Comment on above: Performed By: #### A NSG, ABOG, ALB, ANEU, ADIFF, CBC #### [address] [address] Lymphocyte, Absolute 0.50 10 3/mcL Low 0.77-3.85 A [facility] [place] [facility] ([place]) Comment on above: Performed By: #### A NSG, ABOG, ALB, ANEU, ADIFF, CBC #### [address] [address] Lymphocytes/100 WBC (Bld) 13.7 % Normal 10.0-50.0 [facility] ([place]) Comment on above: Performed By: #### A NSG, ABOG, ALB, ANEU, ADIFF, CBC #### [address] [address] Monocyte, Absolute 0.30 10 3/mcL Normal 0.15-1.00 [facility] ([place]) Comment on above: Performed By: #### A NSG, ABOG, ALB, ANEU, ADIFF, CBC #### [address] [address] Monocytes/100 WBC (Bld) 8.3 % Normal 1.7-13.0 [facility] ([place]) Comment on above: Performed By: #### A NSG, ABOG, ALB, ANEU, ADIFF, CBC #### [address] [address] Neutrophils/100 WBC (Bld) 76.7 % Normal 37.0-80.0 [facility] ([place]) Comment on above: Performed By: #### A NSG, ABOG, ALB, ANEU, ADIFF, CBC #### [address] [address] .GFRon 08-18-2021 GFR 105 ml/min/1.73sqm Normal [facility] ([place]) Comment on above: Result Comment: GFR Population [...] Performed By: #### Tata FR, BMP #### [address] [address] GFR Non- 87 ml/min/1.73sqm Normal [facility] ([place]) Comment on above: Result Comment: GFR Population [...] Performed By: #### G , BMP #### [address] [address] .NEUABSon 08-18-2021 Neutrophil, Absolute 3.00 10 3/mcL Normal 2.85-6.16 A [facility] ([place]) Comment on above: Performed By: #### A NSG, ABOG, ALB, ANEU, ADIFF, CBC #### [address] [address] ALBon 08-18-2021 Albumin Level 3.9 G/dL Normal 3.4-4.8 [facility] ([place]) Comment on above: Performed By: #### A NSG, ABOG, ALB, ANEU, ADIFF, CBC #### [address] [address] BMPon 08-18-2021 BUN/Creatinine Ratio 17 ratio Normal 7-27 [facility] ([place]) Comment on above: Performed By: #### G FR, BMP #### [address] [address] Calcium [Mass/Vol] 9.2 mg/dL Normal 8.4-10.2 [facility] ([place]) Comment on above: Performed By: #### Tata RIVERA, BMP #### [address] [address] Chloride [Moles/Vol] 102 mmol/L Normal 98-107 [facility] ([place]) Comment on above: Performed By: #### Tata RIVERA, BMP #### [address] [address] CO2 [Moles/Vol] 27 mmol/L Normal 23-31 [facility] ([place]) Comment on above: Performed By: #### Tata RIVERA, BMP #### [address] [address] Creatinine [Mass/Vol] 0.86 mg/dL Normal 0.70-1.30 [facility] ([place]) Comment on above: Performed By: #### Tata RIVERA, BMP #### [address] [address] Electrolyte Balance 12.0 mEq/L Normal 4.0-15.0 [facility] ([place]) Comment on above: Performed By: #### Tata RIVERA, BMP #### [address] [address] Glucose [Mass/Vol] 150 mg/dL High 83-110 [facility] ([place]) Comment on above: Performed By: #### Tata RIVERA, BMP #### [address] [address] Potassium [Moles/Vol] 3.8 mmol/L Normal 3.5-5.1 [facility] ([place]) Comment on above: Performed By: #### Tata RIVERA, BMP #### [address] [address] Sodium [Moles/Vol] 141 mmol/L Normal 136-145 [facility] ([place]) Comment on above: Performed By: #### Tata RIVERA, BMP #### [address] [address] Urea nitrogen [Mass/Vol] 15 mg/dL Normal 7-18 [facility] ([place]) Comment on above: Performed By: #### G FR, BMP #### [address] [address] CBCon 08-18-2021 Erythrocyte distribution width (RBC) [Ratio] 13.8 % Normal 11.5-14.5 [facility] ([place]) Comment on above: Order Comment: Pre-A dmission Testing Performed By: #### A NSG, ABOG, ALB, ANEU, ADIFF, CBC #### [address] [address] Hematocrit (Bld) [Volume fraction] 38.2 % Low 42.0-52.0 [facility] ([place]) Comment on above: Order Comment: Pre-A dmission Testing Performed By: #### A NSG, ABOG, ALB, ANEU, ADIFF, CBC #### [address] [address] Hgb 13.5 G/dL Low 14.0-18.0 [facility] ([place]) Comment on above: Order Comment: Pre-A dmission Testing Performed By: #### A NSG, ABOG, ALB, ANEU, ADIFF, CBC #### [address] [address] MCH (RBC) [Entitic mass] 33.2 pg High 27.0-31.2 [facility] ([place]) Comment on above: Order Comment: Pre-A dmission Testing Performed By: #### A NSG, ABOG, ALB, ANEU, ADIFF, CBC #### [address] [address] MCHC 35.5 G/dL High 31.8-35.4 [facility] ([place]) Comment on above: Order Comment: Pre-A dmission Testing Performed By: #### A NSG, ABOG, ALB, ANEU, ADIFF, CBC #### [address] [address] MCV (RBC) [Entitic vol] 93.7 fL Normal 80.0-94.0 [facility] ([place]) Comment on above: Order Comment: Pre-A dmission Testing Performed By: #### A NSG, ABOG, ALB, ANEU, ADIFF, CBC #### [address] [address] Platelet 103 10 3/mcL Low 130-400 [facility] ([place]) Comment on above: Order Comment: Pre-A dmission Testing Performed By: #### A NSG, ABOG, ALB, ANEU, ADIFF, CBC #### [address] [address] Platelet mean volume (Bld) [Entitic vol] 6.7 fL Low 7.4-10.4 [facility] ([place]) Comment on above: Order Comment: Pre-A dmission Testing Performed By: #### A NSG, ABOG, ALB, ANEU, ADIFF, CBC #### [address] [address] RBC 4.08 10 6/mcL Normal 4.04-6.13 [facility] ([place]) Comment on above: Order Comment: Pre-A dmission Testing Performed By: #### A NSG, ABOG, ALB, ANEU, ADIFF, CBC #### [address] [address] WBC 3.90 10 3/mcL Low 4.60-10.80 [facility] ([place]) Comment on above: Order Comment: Pre-A dmission Testing Performed By: #### A NSG, ABOG, ALB, ANEU, ADIFF, CBC #### [address] [address] Gel ABOon 08-18-2021 ABO/Rh Interp Positive Invalid Interpretation Code [facility] ([place]) Comment on above: Performed By: #### A NSG, ABOG, ALB, ANEU, ADIFF, CBC #### [address] [address] Gel ABSon 08-18-2021 Antibody Screen Gel Negative Normal [facility] ([place]) Comment on above: Performed By: #### A NSG, ABOG, ALB, ANEU, ADIFF, CBC #### [place] [address] LABORATORYOrdered By: Kat Seth on 08-18-2021 ABO/Rh [...] 08/18/2021 3:15:42 PM Ordering Provider: RADHA CHOI [facility] ([place]) Vital Signs Date Time Vital Sign Value Performing Clinician Facility 01-25-2025 12:25-0400 Body temperature 97.7 [degF] Dr. Harlan Ford DO Work Phone: 7(720)[phone] [place] [address] 01-25-2025 12:25-0400 Body weight 84.[address] Harlan Ford DO Work Phone: 5(048)744-725456 [place] [address] 01-25-2025 12:25-0400 Diastolic blood pressure 59 mm[Hg] Dr. Harlan Ford DO Work Phone: 7(949)[phone] [place] [address] 01-25-2025 12:25-0400 Heart rate 59 /min Dr. Harlan Ford DO Work Phone: [facility] 01-25-2025 12:25-0400 Respiratory rate 16 /min Dr. Harlan Ford DO Work Phone: [facility] 01-25-2025 12:25-0400 SaO2% (BldA) [Mass fraction] 98 % Dr. Harlan Ford DO Work Phone: [facility] 01-25-2025 12:25-0400 Systolic blood pressure 108 mm[Hg] Dr. Harlan Ford DO Work Phone: [facility] 12-23-2024 08:28-0400 Body height 173.[address] Harlan Ford DO Work Phone: [facility] 12-23-2024 08:28-0400 Body mass index (BMI) [Ratio] 29.5 kg/m2 Dr. Harlan Ford DO Work Phone: [facility] 12-23-2024 08:28-0400 Body weight 89.[address] Harlan Ford DO Work Phone: [facility] 12-23-2024 08:28-0400 Diastolic blood pressure 67 mm[Hg] Dr. Harlan Ford DO Work Phone: [facility] 12-23-2024 08:28-0400 Respiratory rate 16 /min Dr. Harlan Ford DO Work Phone: [facility] 12-23-2024 08:28-0400 Systolic blood pressure 168 mm[Hg] Dr. Harlan Ford DO Work Phone: [facility] 12-22-2024 10:20-0400 Body height 173 cm Harlan Ford DO Work Phone: [facility] 12-22-2024 10:20-0400 Body mass index (BMI) [Ratio] 29.71 kg/m2 Harlan Caraballorison DO Work Phone: [facility] 12-22-2024 10:20-0400 Body temperature 96.4 [degF] Harlan Caraballorison DO Work Phone: [facility] 12-22-2024 10:20-0400 Body weight 88.91 kg Harlan Ford DO Work Phone: [facility] 12-22-2024 10:20-0400 Diastolic blood pressure 68 mm[Hg] Harlan Caraballorison DO Work Phone: [facility] 12-22-2024 10:20-0400 Heart rate 60 /min Harlan Ford DO Work Phone: [facility] 12-22-2024 10:20-0400 Respiratory rate 16 /min Harlan Ford DO Work Phone: [facility] 12-22-2024 10:20-0400 Systolic blood pressure 120 mm[Hg] Harlan Ford DO Work Phone: [facility] 10-06-2024 13:04-0400 Body temperature 97.8 [degF] Dr. Harlan Ford DO Work Phone: [facility] 10-06-2024 13:04-0400 Body weight 90.[address] Harlan Ford DO Work Phone: [facility] 10-06-2024 13:04-0400 Diastolic blood pressure 63 mm[Hg] Dr. Harlan Ford DO Work Phone: [facility] 10-06-2024 13:04-0400 Heart rate 57 /min Dr. Harlan Ford DO Work Phone: [facility] 10-06-2024 13:04-0400 Respiratory rate 14 /min Dr. Harlan Ford DO Work Phone: [facility] 10-06-2024 13:04-0400 SaO2% (BldA) [Mass fraction] 99 % Dr. Harlan Ford DO Work Phone: [facility] 10-06-2024 13:04-0400 Systolic blood pressure 140 mm[Hg] Dr. Harlan Ford DO Work Phone: [facility] 09-15-2024 09:33-0400 Body mass index (BMI) [Ratio] 30.41 kg/m2 Harlan Ford DO Work Phone: [facility] 09-15-2024 09:33-0400 Body temperature 97 [degF] Harlan Ford DO Work Phone: [facility] 09-15-2024 09:33-0400 Body weight 88.91 kg Harlan Ford DO Work Phone: [facility] 09-15-2024 09:33-0400 Diastolic blood pressure 60 mm[Hg] Harlan Ford DO Work Phone: [facility] 09-15-2024 09:33-0400 Heart rate 84 /min Harlan Ford DO Work Phone: [facility] 09-15-2024 09:33-0400 Respiratory rate 20 /min Harlan Ford DO Work Phone: [facility] 09-15-2024 09:33-0400 Systolic blood pressure 120 mm[Hg] Harlan Ford DO Work Phone: [facility] 09-02-2024 11:20-0500 Body mass index (BMI) [Ratio] 30.47 kg/m2 Viral Erickson MD Work Phone: [facility] 09-02-2024 11:20-0500 Body temperature 96.91 [degF] Viral Erickson MD Work Phone: [facility] 09-02-2024 11:20-0500 Body weight 89.1 kg Viral Erickson MD Work Phone: [facility] 09-02-2024 11:20-0500 Diastolic blood pressure 70 mm[Hg] Viral Erickson MD Work Phone: [facility] 09-02-2024 11:20-0500 Heart rate 88 /min Viral Erickson MD Work Phone: [facility] 09-02-2024 11:20-0500 Respiratory rate 16 /min Viral Erickson MD Work Phone: [facility] 09-02-2024 11:20-0500 SaO2% (BldA) [Mass fraction] 97 % Viral Erickson MD Work Phone: [facility] 09-02-2024 11:20-0500 Systolic blood pressure 144 mm[Hg] Viral Erickson MD Work Phone: [facility] 07-29-2024 12:09-0500 Body mass index (BMI) [Ratio] 30.95 kg/m2 Harlan Ford DO Work Phone: [facility] 07-29-2024 12:09-0500 Body temperature 97 [degF] Harlan Ford DO Work Phone: [facility] 07-29-2024 12:09-0500 Body weight 90.5 kg Harlan Ford DO Work Phone: [facility] 07-29-2024 12:09-0500 Diastolic blood pressure 70 mm[Hg] Harlan Ford DO Work Phone: [facility] 07-29-2024 12:09-0500 Heart rate 64 /min Harlan Ford DO Work Phone: [facility] 07-29-2024 12:09-0500 Respiratory rate 20 /min Harlan Ford DO Work Phone: [facility] 07-29-2024 12:09-0500 Systolic blood pressure 138 mm[Hg] Harlan Ford DO Work Phone: [facility] 07-23-2024 15:13-0500 Body mass index (BMI) [Ratio] 30.99 kg/m2 Kalpana Clutter PA-C Work Phone: [facility] 07-23-2024 15:13-0500 Body temperature 97.39 [degF] Kalpana Clutter PA-C Work Phone: [facility] 07-23-2024 15:13-0500 Body weight 90.6 kg Kalpana Clutter PA-C Work Phone: [facility] 07-23-2024 15:13-0500 Diastolic blood pressure 72 mm[Hg] Kalpana Clutter PA-C Work Phone: [facility] 07-23-2024 15:13-0500 Heart rate 73 /min Kalpana Clutter PA-C Work Phone: [facility] 07-23-2024 15:13-0500 Respiratory rate 18 /min Kalpana Clutter PA-C Work Phone: [facility] 07-23-2024 15:13-0500 SaO2% (BldA) [Mass fraction] 97 % Kalpana Clutter PA-C Work Phone: [facility] 07-23-2024 15:13-0500 Systolic blood pressure 171 mm[Hg] Kalpana Poe PA-C Work Phone: [facility] 06-15-2024 09:18-0500 Body mass index (BMI) [Ratio] 30.88 kg/m2 Harlan Ford DO Work Phone: [facility] 06-15-2024 09:18-0500 Body temperature 97.11 [degF] Harlan Ford DO Work Phone: [facility] 06-15-2024 09:18-0500 Body weight 90.3 kg Harlan Ford DO Work Phone: [facility] 06-15-2024 09:18-0500 Diastolic blood pressure 60 mm[Hg] Harlan Ford DO Work Phone: [facility] 06-15-2024 09:18-0500 Heart rate 68 /min Harlan Ford DO Work Phone: [facility] 06-15-2024 09:18-0500 Respiratory rate 20 /min Harlan Ford DO Work Phone: [facility] 06-15-2024 09:18-0500 Systolic blood pressure 122 mm[Hg] Harlan Ford DO Work Phone: [facility] 03-11-2024 13:37-0400 Body mass index (BMI) [Ratio] 30.75 kg/m2 Tyrell Corrigan APRN.[employer] Work Phone: [facility] 03-11-2024 13:37-0400 Body temperature 98.4 [degF] Tyrell Corrigan APRN.[employer] Work Phone: [facility] 03-11-2024 13:37-0400 Body weight 89.9 kg Tyrell Corrigan APRN.[employer] Work Phone: [facility] 03-11-2024 13:37-0400 Diastolic blood pressure 76 mm[Hg] Tyrell Corrigan APRN.[employer] Work Phone: [facility] 03-11-2024 13:37-0400 Heart rate 69 /min Tyrell Corrigan APRN.[employer] Work Phone: [facility] 03-11-2024 13:37-0400 Respiratory rate 16 /min Tyrell Corrigan APRN.[employer] Work Phone: [facility] 03-11-2024 13:37-0400 SaO2% (BldA) [Mass fraction] 96 % Tyrell Corrigan APRN.[employer] Work Phone: [facility] 03-11-2024 13:37-0400 Systolic blood pressure 132 mm[Hg] Tyrell Corrigan APRN.[employer] Work Phone: [facility] 03-03-2024 09:55-0400 Body mass index (BMI) [Ratio] 30.56 kg/m2 Harlan Ford DO Work Phone: [facility] 03-03-2024 09:55-0400 Body temperature 97.5 [degF] Harlan Ford DO Work Phone: [facility] 03-03-2024 09:55-0400 Body weight 89.36 kg Harlan Ford DO Work Phone: [facility] 03-03-2024 09:55-0400 Diastolic blood pressure 60 mm[Hg] Harlan Ford DO Work Phone: [facility] 03-03-2024 09:55-0400 Heart rate 60 /min Harlan Ford DO Work Phone: [facility] 03-03-2024 09:55-0400 Respiratory rate 20 /min Harlan Ford DO Work Phone: [facility] 03-03-2024 09:55-0400 Systolic blood pressure 100 mm[Hg] Harlan Ford DO Work Phone: [facility] 11-26-2023 09:48-0400 Body mass index (BMI) [Ratio] 30.72 kg/m2 Harlan Ford DO Work Phone: [facility] 11-26-2023 09:48-0400 Body temperature 97.2 [degF] Harlan Ford DO Work Phone: [facility] 11-26-2023 09:48-0400 Body weight 89.81 kg Harlan Ford DO Work Phone: [facility] 11-26-2023 09:48-0400 Diastolic blood pressure 60 mm[Hg] Harlan Ford DO Work Phone: [facility] 11-26-2023 09:48-0400 Heart rate 80 /min Harlan Ford DO Work Phone: [facility] 11-26-2023 09:48-0400 Respiratory rate 20 /min Harlan Ford DO Work Phone: [facility] 11-26-2023 09:48-0400 Systolic blood pressure 120 mm[Hg] Harlan Ford DO Work Phone: [facility] 08-28-2023 13:10-0500 Body temperature 97.2 [degF] Harlan Ford DO Work Phone: [facility] 08-28-2023 13:10-0500 Body weight 92.99 kg Harlan Ford DO Work Phone: [facility] 08-28-2023 13:10-0500 Diastolic blood pressure 60 mm[Hg] Harlan Ford DO Work Phone: [facility] 08-28-2023 13:10-0500 Heart rate 68 /min Harlan Ford DO Work Phone: [facility] 08-28-2023 13:10-0500 Respiratory rate 16 /min Harlan Ford DO Work Phone: [facility] 08-28-2023 13:10-0500 Systolic blood pressure 100 mm[Hg] Harlan Ford DO Work Phone: [facility] 07-10-2023 13:07-0500 Body height 175.[address] Harlan Ford Work Phone: [facility] 07-10-2023 13:07-0500 Body mass index (BMI) [Ratio] 30.4 kg/m2 Dr. Harlan Ford Work Phone: [facility] 07-10-2023 13:07-0500 Body weight 93.[address] Harlan Ford Work Phone: 9(589)[phone] [place] [address] 07-10-2023 13:07-0500 Diastolic blood pressure 74 mm[Hg] Dr. Harlan Ford Work Phone: 3(618)[phone] [place] [address] 07-10-2023 13:07-0500 Heart rate 82 /min Dr. Harlan Ford Work Phone: 2(771)832-057158 [place] [address] 07-10-2023 13:07-0500 Respiratory rate 18 /min Dr. Harlan Ford Work Phone: 6(211)[phone] [place] [address] 07-10-2023 13:07-0500 SaO2% (BldA) [Mass fraction] 98 % Dr. Harlan Ford Work Phone: 7(165)220-227056 [place] [address] 07-10-2023 13:07-0500 Systolic blood pressure 151 mm[Hg] Dr. Harlan Ford Work Phone: 8(382)012-084356 [place] [address] 05-22-2023 12:25-0500 Body temperature 97.7 [degF] Harlan Ford DO Work Phone: [facility] 05-22-2023 12:25-0500 Body weight 92.08 kg Harlan Ford DO Work Phone: [facility] 05-22-2023 12:25-0500 Diastolic blood pressure 60 mm[Hg] Harlan Ford DO Work Phone: [facility] 05-22-2023 12:25-0500 Heart rate 88 /min Harlan Caraballorison DO Work Phone: [facility] 05-22-2023 12:25-0500 Respiratory rate 16 /min Harlan Caraballorison DO Work Phone: 4(458)727-458417 [place] [address] 05-22-2023 12:25-0500 Systolic blood pressure 120 mm[Hg] Harlan Ford DO Work Phone: 6(825)190-155817 [place] [address] 02-13-2023 13:29-0400 Body temperature 97.81 [degF] Harlan Caraballorison DO Work Phone: [facility] 02-13-2023 13:29-0400 Body weight 90.27 kg Harlan Caraballorison DO Work Phone: [facility] 02-13-2023 13:29-0400 Diastolic blood pressure 50 mm[Hg] Harlan Leahyon DO Work Phone: [facility] 02-13-2023 13:29-0400 Heart rate 76 /min Harlan Ford DO Work Phone: [facility] 02-13-2023 13:29-0400 Respiratory rate 20 /min Harlan Caraballorison DO Work Phone: [facility] 02-13-2023 13:29-0400 Systolic blood pressure 120 mm[Hg] Harlan Ford DO Work Phone: [facility] 02-07-2023 09:56-0400 Body height 175.[address] Harlan Ford Work Phone: [facility] 02-07-2023 09:56-0400 Body mass index (BMI) [Ratio] 29.2 kg/m2 Dr. Harlan Ford Work Phone: [facility] 02-07-2023 09:56-0400 Body weight 89.[address] Harlan Ford Work Phone: [facility] 02-07-2023 09:56-0400 Diastolic blood pressure 71 mm[Hg] Dr. Harlan Ford Work Phone: [facility] 02-07-2023 09:56-0400 Heart rate 56 /min Dr. Harlan Ford Work Phone: [facility] 02-07-2023 09:56-0400 Respiratory rate 18 /min Dr. Harlan Ford Work Phone: [facility] 02-07-2023 09:56-0400 SaO2% (BldA) [Mass fraction] 98 % Dr. Harlan Ford Work Phone: 7(605)[phone] [place] [address] 02-07-2023 09:56-0400 Systolic blood pressure 126 mm[Hg] Dr. Harlan Ford Work Phone: 8(711)684-229258 [place] [address] 01-25-2023 12:56-0400 Body temperature 97.5 [degF] Dr. Harlan Ford Work Phone: 6(750)230-769058 [place] [address] 01-25-2023 12:56-0400 Diastolic blood pressure 57 mm[Hg] Dr. Harlan Ford Work Phone: 9(340)039-337958 [place] [address] 01-25-2023 12:56-0400 Heart rate 71 /min Dr. Harlan Ford Work Phone: 8(515)325-044358 [place] [address] 01-25-2023 12:56-0400 Respiratory rate 18 /min Dr. Harlan Ford Work Phone: 8(528)946-247958 [place] [address] 01-25-2023 12:56-0400 SaO2% (BldA) [Mass fraction] 96 % Dr. Harlan Ford Work Phone: 7(544)519-927558 [place] [address] 01-25-2023 12:56-0400 Systolic blood pressure 118 mm[Hg] Dr. Harlan Ford Work Phone: 5(092)666-996758 [place] [address] 01-24-2023 16:33-0400 Body mass index (BMI) [Ratio] 29.5 kg/m2 Dr. Harlan Ford Work Phone: 9(976)144-803458 [place] [address] 01-24-2023 16:33-0400 Body weight 90.[address] Harlan Ford Work Phone: 1(563)405-854558 [place] [address] 01-24-2023 16:04-0400 Diastolic blood pressure 53 mm[Hg] Dr. Harlan Ford Work Phone: 3(845)407-230758 [place] [address] 01-24-2023 16:04-0400 Heart rate 65 /min Dr. Harlan Ford Work Phone: 0(117)333-404958 [place] [address] 01-24-2023 16:04-0400 Respiratory rate 15 /min Dr. Harlan Ford Work Phone: 7(976)512-051758 [place] [address] 01-24-2023 16:04-0400 SaO2% (BldA) [Mass fraction] 97 % Dr. Harlan Ford Work Phone: 3(065)731-784158 [place] [address] 01-24-2023 16:04-0400 Systolic blood pressure 103 mm[Hg] Dr. Harlan Ford Work Phone: 2(627)204-092158 [place] [address] 01-24-2023 15:17-0400 Body temperature 99.2 [degF] Dr. Harlan Ford Work Phone: 3(540)471-014458 [place] [address] 01-24-2023 13:03-0400 Body height 175.[address] Harlan Ford Work Phone: 3(782)914-504058 [place] [address] 01-24-2023 13:03-0400 Body mass index (BMI) [Ratio] 28.9 kg/m2 Dr. Harlan Ford Work Phone: 3(744)772-878158 [place] [address] 01-24-2023 13:03-0400 Body weight 88.[address] Harlan Ford Work Phone: 4(615)320-175358 [place] [address] 01-05-2023 13:12-0400 Diastolic blood pressure 64 mm[Hg] Dr. Harlan Ford Work Phone: 3(184)108-658958 [place] [address] 01-05-2023 13:12-0400 Heart rate 78 /min Dr. Harlan Ford Work Phone: 0(840)933-328658 [place] [address] 01-05-2023 13:12-0400 Respiratory rate 18 /min Dr. Harlan Ford Work Phone: 8(425)200-113658 [place] [address] 01-05-2023 13:12-0400 SaO2% (BldA) [Mass fraction] 95 % Dr. Harlan Ford Work Phone: 2(758)730-033958 [place] [address] 01-05-2023 13:12-0400 Systolic blood pressure 132 mm[Hg] Dr. Harlan Ford Work Phone: 0(647)278-703358 [place] [address] 01-05-2023 09:16-0400 Body height 175.[address] Harlan Ford Work Phone: 5(425)356-466058 [place] [address] 01-05-2023 09:16-0400 Body mass index (BMI) [Ratio] 29.9 kg/m2 Dr. Harlan Ford Work Phone: 5(429)728-395658 [place] [address] 01-05-2023 09:16-0400 Body temperature 98.2 [degF] Dr. Harlan Ford Work Phone: 4(811)921-067658 [place] [address] 01-05-2023 09:16-0400 Body weight 91.[address] Harlan Ford Work Phone: 7(732)605-996058 [place] [address] 12-17-2022 02:16-0400 Heart rate 81 /min Dr. Harlan Ford Work Phone: 1(469)711-654158 [place] [address] 12-17-2022 02:16-0400 Respiratory rate 17 /min Dr. Harlan Ford Work Phone: 2(789)561-614458 [place] [address] 12-17-2022 02:16-0400 SaO2% (BldA) [Mass fraction] 97 % Dr. Harlan Ford Work Phone: 4(503)943-266558 [place] [address] 12-16-2022 22:30-0400 Body mass index (BMI) [Ratio] 30.9 kg/m2 Dr. Harlan Ford Work Phone: 2(231)901-890958 [place] [address] 12-16-2022 22:30-0400 Body temperature 99.5 [degF] Dr. Harlan Ford Work Phone: 9(007)077-388358 [place] [address] 12-16-2022 22:30-0400 Body weight 92.[address] Harlan Ford Work Phone: 6(767)418-192458 [place] [address] 12-16-2022 22:30-0400 Diastolic blood pressure 64 mm[Hg] Dr. Harlan Ford Work Phone: 6(693)707-219758 [place] [address] 12-16-2022 22:30-0400 Systolic blood pressure 154 mm[Hg] Dr. Harlan Ford Work Phone: 0(796)621-250358 [place] [address] 11-13-2022 15:39-0400 Body temperature 97 [degF] Harlan Ford DO Work Phone: 0(627)724-240317 [place] [address] 11-13-2022 15:39-0400 Body weight 91.17 kg Harlan Ford DO Work Phone: [facility] 11-13-2022 15:39-0400 Diastolic blood pressure 70 mm[Hg] Harlan Ford DO Work Phone: [facility] 11-13-2022 15:39-0400 Heart rate 76 /min Harlan Caraballorison DO Work Phone: [facility] 11-13-2022 15:39-0400 Respiratory rate 16 /min Harlan Ford DO Work Phone: [facility] 11-13-2022 15:39-0400 Systolic blood pressure 124 mm[Hg] Harlan Ford DO Work Phone: [facility] 10-11-2022 13:21-0400 Body mass index (BMI) [Ratio] 30.1 kg/m2 Dr. Harlan Ford Work Phone: [facility] 10-11-2022 13:21-0400 Body weight 92.[address] Harlan Ford Work Phone: [facility] 10-11-2022 13:21-0400 Diastolic blood pressure 68 mm[Hg] Dr. Harlan Ford Work Phone: [facility] 10-11-2022 13:21-0400 Heart rate 65 /min Dr. Harlan Ford Work Phone: [facility] 10-11-2022 13:21-0400 Respiratory rate 16 /min Dr. Harlan Ford Work Phone: [facility] 10-11-2022 13:21-0400 SaO2% (BldA) [Mass fraction] 99 % Dr. Harlan Ford Work Phone: [facility] 10-11-2022 13:21-0400 Systolic blood pressure 131 mm[Hg] Dr. Harlan Ford Work Phone: 6(944)946-994356 [place] [address] 10-10-2022 10:12-0400 Body weight 91.54 kg Jose Ursula E COMMERCE DIRECTOR.[employer] Work Phone: [facility] 10-10-2022 10:12-0400 Diastolic blood pressure 58 mm[Hg] Jose Chanman E COMMERCE DIRECTOR.[employer] Work Phone: [facility] 10-10-2022 10:12-0400 Heart rate 77 /min Jose Osborne E COMMERCE DIRECTOR.[employer] Work Phone: [facility] 10-10-2022 10:12-0400 Respiratory rate 16 /min Jose Osborne E COMMERCE DIRECTOR.[employer] Work Phone: [facility] 10-10-2022 10:12-0400 SaO2% (BldA) [Mass fraction] 96 % Jose Osborne E COMMERCE DIRECTOR.[employer] Work Phone: [facility] 10-10-2022 10:12-0400 Systolic blood pressure 122 mm[Hg] Jose Osborne E COMMERCE DIRECTOR.[employer] Work Phone: [facility] 09-20-2022 14:09-0400 Body temperature 97.9 [degF] Dr. Harlan Ford Work Phone: [facility] 09-20-2022 14:09-0400 Diastolic blood pressure 71 mm[Hg] Dr. Harlan Ford Work Phone: [facility] 09-20-2022 14:09-0400 Heart rate 87 /min Dr. Harlan Ford Work Phone: [facility] 09-20-2022 14:09-0400 Respiratory rate 14 /min Dr. Harlan Ford Work Phone: [facility] 09-20-2022 14:09-0400 SaO2% (BldA) [Mass fraction] 94 % Dr. Harlan Ford Work Phone: [facility] 09-20-2022 14:09-0400 Systolic blood pressure 113 mm[Hg] Dr. Haraln Ford Work Phone: [facility] 09-20-2022 11:21-0400 Body height 175.[address] Harlan Ford Work Phone: 8(363)830-277756 [place] [address] 09-20-2022 11:21-0400 Body weight [address] Harlan Ford Work Phone: 2(903)549-845756 [place] [address] 09-20-2022 10:00-0400 Inhaled oxygen flow rate 2 L/min Dr. Harlan Ford Work Phone: 0(141)826-523656 [place] [address] 09-20-2022 05:46-0400 Body mass index (BMI) [Ratio] 30.9 kg/m2 Dr. Harlan Ford Work Phone: 5(715)214-259658 [place] [address] 09-10-2022 10:59-0500 Body temperature 98.6 [degF] Dr. Harlan Ford Work Phone: 0(813)071-702156 [place] [address] 09-10-2022 10:59-0500 Body weight 92.[address] Harlan Ford Work Phone: 5(895)037-803356 [place] [address] 09-10-2022 10:59-0500 Diastolic blood pressure 81 mm[Hg] Dr. Harlan Ford Work Phone: 2(499)787-230256 [place] [address] 09-10-2022 10:59-0500 Heart rate 85 /min Dr. Harlan Ford Work Phone: 7(878)476-068256 [place] [address] 09-10-2022 10:59-0500 Respiratory rate 18 /min Dr. Harlan Ford Work Phone: 8(420)036-840156 [place] [address] 09-10-2022 10:59-0500 SaO2% (BldA) [Mass fraction] 94 % Dr. Harlan Ford Work Phone: 9(706)689-670256 [place] [address] 09-10-2022 10:59-0500 Systolic blood pressure 151 mm[Hg] Dr. Harlan Ford Work Phone: 8(796)338-876156 [place] [address] 09-06-2022 16:13-0500 Diastolic blood pressure 70 mm[Hg] [facility] 09-06-2022 16:13-0500 Heart rate 68 /min [facility] 09-06-2022 16:13-0500 Respiratory rate 16 /min [facility] 09-06-2022 16:13-0500 SaO2% (BldA) [Mass fraction] 96 % [facility] 09-06-2022 16:13-0500 Systolic blood pressure 154 mm[Hg] [facility] 09-06-2022 13:19-0500 Body height 170.18 cm [facility] 09-06-2022 13:19-0500 Body mass index (BMI) [Ratio] 30.9 kg/m2 [facility] 09-06-2022 13:19-0500 Body weight 89.5 kg [facility] 09-06-2022 13:14-0500 Body temperature 97.2 [degF] [facility] 09-05-2022 14:15-0500 Body height 171 cm Roshan Ray MD Work Phone: [facility] 09-05-2022 14:15-0500 Body weight 91.17 kg Roshan Ray MD Work Phone: [facility] 09-05-2022 14:15-0500 Diastolic blood pressure 54 mm[Hg] Roshan Ray MD Work Phone: [facility] 09-05-2022 14:15-0500 Heart rate 72 /min Roshan Ray MD Work Phone: [facility] 09-05-2022 14:15-0500 SaO2% (BldA) [Mass fraction] 96 % Roshan Ray MD Work Phone: [facility] 09-05-2022 14:15-0500 Systolic blood pressure 118 mm[Hg] Roshan Ray MD Work Phone: [facility] 08-08-2022 13:58-0500 Body temperature 97 [degF] Harlan Ford DO Work Phone: [facility] 08-08-2022 13:58-0500 Body weight 93.44 kg Harlan Caraballorison DO Work Phone: [facility] 08-08-2022 13:58-0500 Diastolic blood pressure 60 mm[Hg] Harlan Leahyon DO Work Phone: [facility] 08-08-2022 13:58-0500 Heart rate 80 /min Harlan Ford DO Work Phone: [facility] 08-08-2022 13:58-0500 Respiratory rate 16 /min Harlan Ford DO Work Phone: [facility] 08-08-2022 13:58-0500 Systolic blood pressure 120 mm[Hg] Harlan Ford DO Work Phone: [facility] 01-31-2022 13:51-0400 Body weight 91.72 kg Jose Ursula E COMMERCE DIRECTOR.[employer]EM[employer] Work Phone: [facility] 01-31-2022 13:51-0400 Diastolic blood pressure 70 mm[Hg] Jose Ursula E COMMERCE DIRECTOR.[employer]EM[employer] Work Phone: [facility] 01-31-2022 13:51-0400 Heart rate 76 /min Jose Ursula E COMMERCE DIRECTOR.[employer] Work Phone: [facility] 01-31-2022 13:51-0400 Respiratory rate 16 /min Jose Ursula E COMMERCE DIRECTOR.[employer] Work Phone: [facility] 01-31-2022 13:51-0400 SaO2% (BldA) [Mass fraction] 96 % Jose Ursula E COMMERCE DIRECTOR.[employer] Work Phone: [facility] 01-31-2022 13:51-0400 Systolic blood pressure 122 mm[Hg] Jose Ursula E COMMERCE DIRECTOR.[employer]EM[employer] Work Phone: [facility] 10-31-2021 14:15-0400 Body height 171 cm Harlan Ford DO Work Phone: [facility] 10-31-2021 14:15-0400 Body weight 90.27 kg Harlan Ford DO Work Phone: [facility] 10-31-2021 14:15-0400 Diastolic blood pressure 80 mm[Hg] Harlan Ford DO Work Phone: [facility] 10-31-2021 14:15-0400 Heart rate 72 /min Harlan Ford DO Work Phone: [facility] 10-31-2021 14:15-0400 Respiratory rate 12 /min Harlan Ford DO Work Phone: [facility] 10-31-2021 14:15-0400 Systolic blood pressure 138 mm[Hg] Harlan Ford DO Work Phone: [facility] 08-29-2021 12:40-0500 Body temperature 96.62 [degF] DR RADHA CHOI MD [facility] 08-29-2021 12:40-0500 Diastolic Blood Pressure NBP [address] RADHA CHOI MD [facility] 08-29-2021 12:40-0500 Heart rate 79 /min DR RADHA CHOI MD [facility] 08-29-2021 12:40-0500 Respiratory rate 18 /min DR RADHA CHOI MD [facility] 08-29-2021 12:40-0500 Systolic Blood Pressure NBP [address] RADHA CHOI MD [facility] 08-29-2021 11:03-0500 Diastolic Blood Pressure NBP [address] RADHA CHOI MD [facility] 08-29-2021 11:03-0500 Heart rate 75 /min DR RADHA CHOI MD [facility] 08-29-2021 11:03-0500 Respiratory rate 18 /min DR RADHA CHOI MD [facility] 08-29-2021 11:03-0500 Systolic Blood Pressure NBP [address] RADHA CHOI MD [facility] 08-29-2021 10:55-0500 Diastolic Blood Pressure NBP [address] RADHA CHOI MD [facility] 08-29-2021 10:55-0500 Heart rate 75 /min DR RADHA CHOI MD [facility] 08-29-2021 10:55-0500 Respiratory rate 20 /min DR RADHA CHOI MD [facility] 08-29-2021 10:55-0500 Systolic Blood Pressure NBP [address] RADHA CHOI MD [facility] 08-29-2021 10:15-0500 Body temperature 96.44 [degF] DR RADHA CHOI MD [facility] 08-29-2021 05:54-0500 Body temperature 97.88 [degF] DR RADHA CHOI MD [facility] 08-29-2021 05:54-0500 Heart rate 79 /min DR RADHA CHOI MD [facility] 08-18-2021 13:100500 Body height [address] RADHA CHOI MD [facility] 08-18-2021 13:10050 Body weight 92.[address] RADHA CHOI MD [facility] Encounters Encounter Date Encounter Type Care Provider Facility Start: 01-27-2025 ambulatory Juan Campbell Facility: [facility] Start: 01-27-2025 End: 01-27-2025 ambulatory Harlan Ford Facility:[facility] Start: 01-25-2025 End: 01-25-[address] Sony López MD -[facility] Work Phone: Start: 01-25-2025 End: 01-25-[address] Harlan Ford DO Work Phone: -[facility] Start: 01-19-2025 ambulatory Harlan Ford Facilit y:[facility] Start: 01-19-2025 Registered Recurring Torri CARL -Laboratory Work Phone: Start: 12-23-2024 End: 12-23-[address] Juan Campbell MD -[facility] Work Phone: Start: 12-23-2024 End: 12-23-[address] Harlan Ford DO Work Phone: [facility] Work Phone: Start: 12-22-2024 End: 12-22-2024 Patient encounter procedure Harlan Ford DO Work Phone: [facility] [place] Comment on above: Medicare annual well ness [...] Start: 12-22-2024 End: 12-22-2024 ambulatory HARLAN FORD Facility:[facility] Start: 12-15-2024 End: 12-15-[address] Harlan Ford DO Work Phone: -Laboratory Start: 12-15-2024 End: 12-15-2024 Discharged Recurring Torri Mendoza PA -Laboratory Work Phone: Start: 12-15-2024 Registered Recurring Torri Mendoza PA -Laboratory Work Phone: Start: 12-11-2024 End: 12-11-[address] Harlan Ford DO Work Phone: [facility] Work Phone: Start: 12-11-2024 End: 12-11-[address] Juan Campbell MD -Ultrasound [facility] Work Phone: Start: 12-11-2024 End: 12-11-2024 ambulatory Juan Campbell Facility:[facility] Start: 12-02-2024 End: 12-02-[address] Harlan Ford DO Work Phone: [facility] Work Phone: Start: 12-02-2024 End: 12-02-2024 Discharged Recurring Torri Mendoza PA -Laboratory Work Phone: Start: 12-01-2024 Encounter for preprocedural laboratory examination Juan Campbell [facility] Start: 11-24-2024 End: 11-24-[address] Harlan Ford DO Work Phone: [facility] Work Phone: Start: 11-24-2024 End: 11-24-[address] Juan Campbell MD -Cat Scan [facility] Work Phone: Start: 11-24-2024 End: 11-24-2024 ambulatory Juan Campbell Facility:[facility] Start: 11-20-2024 Registered Recurring Torri Mendoza PA -Laboratory Work Phone: Start: 10-19-2024 End: 11-04-2024 ambulatory Harlan Ford Facility:[facility] Start: 10-19-2024 End: 11-04-2024 Discharged Recurring Torri CARL -Laboratory Work Phone: Start: 10-12-2024 End: 10-12-[address] Harlan Ford DO Work Phone: [facility] Work Phone: Start: 10-12-2024 End: 10-12-[address] Rylan Cee DPEliel -Physical Therapy Work Phone: Start: 10-12-2024 Registered Recurring Torri Mendoza PA -Laboratory Work Phone: Start: 10-09-2024 End: 10-09-[address] Harlan Ford DO Work Phone: [facility] Work Phone: Start: 10-09-2024 End: 10-09-2024 Patient encounter procedure Nellie CARL -[facility] Work Phone: Start: 10-09-2024 End: 10-09-2024 ambulatory Nellie Morris Facility:[facility] Start: 10-06-2024 End: 10-06-2024 Patient encounter procedure Nellie CARL -[facility] Work Phone: Start: 10-06-2024 End: 10-07-2024 Refill Harlan Ford DO Work Phone: [facility] Comment on above: Refill Request Start: 10-06-2024 End: 10-06-2024 ambulatory Nellie Morris Facility:[facility] Start: 09-28-[address] Santosh Cee DPM -Physical Therapy Work Phone: Start: 09-21-[address] Santosh Cee DPM -Physical Therapy Work Phone: Start: 09-16-2024 Non-patient / Non-visit Dr. Sony hart MD -[facility] Start: 09-16-2024 End: 09-16-[address] Harlan Ford DO Work Phone: [facility] Work Phone: Start: 09-16-2024 End: 09-16-2024 Patient encounter procedure Nellie CARL -Cardiovascular Services Work Phone: Start: 09-15-2024 End: 09-16-2024 ambulatory HARLAN FORD Facility:[facility] Start: 09-15-2024 End: 09-15-2024 Patient encounter procedure Harlan Ford DO Work Phone: [facility] Comment on above: Type 2 diabetes vikram itus with diabetic polyneuropathy, without long-term current use of insulin ([facility]) (Primary Dx); Tremor; Primary hypertension; Other polyneuropathy; Mixed hyperlipidemia; Acute pain of right shoulder; PAD (peripheral artery disease) ([facility]); Cerebrovascular accident (CVA) due to stenosis of right carotid artery ([facility]); Vitamin D deficiency Start: 09-10-2024 End: 09-11-2024 Refill Harlan Ford DO Work Phone: [facility] Comment on above: Refill Request Start: 09-07-2024 End: 09-07-2024 Discharged Recurring Torri CARL -Laboratory Work Phone: Start: 09-07-2024 Registered Recurring Torri CARL -Laboratory Work Phone: Start: 09-07-2024 End: 09-07-[address] Harlan Ford DO Work Phone: [facility] Work Phone: Start: 09-04-2024 End: 09-04-2024 Refill Harlan Ford DO Work Phone: [facility] Comment on above: Refill Request Start: 09-02-2024 End: 09-02-2024 ambulatory HARLAN FORD Facility:[facility] Start: 09-02-2024 End: 09-02-2024 Patient encounter procedure Viral Erickson MD Work Phone: [facility] Comment on above: Impacted cerumen of left ear (Primary Dx) Start: 08-24-2024 End: 09-04-2024 ambulatory Harlan Ford Facility:[facility] Start: 08-24-2024 End: 09-04-2024 Discharged Recurring Torri Mendoza PA -Laboratory Work Phone: Start: 08-03-2024 End: 08-03-2024 ambulatory Harlan Ford Facility:[facility] Start: 08-03-2024 End: 08-03-2024 Discharged Recurring Torri Mendoza PA -Laboratory Work Phone: Start: 07-29-2024 End: 07-29-2024 Patient encounter procedure Harlan Ford DO Work Phone: [facility] Comment on above: Acute pain of right shoulder (Primary Dx); Neck pain; Fall, subsequent encounter; Right elbow pain; Primary hypertension; Type 2 diabetes mellitus with diabetic polyneuropathy, without long-term current use of insulin (HCC); Other polyneuropathy Start: 07-29-2024 End: 07-29-2024 ambulatory HARLAN L FORD Facility:[facility] Start: 07-23-2024 End: 07-23-2024 ambulatory HARLAN L FORD Facility:[facility] Start: 07-23-2024 End: 07-23-2024 Office outpatient visit 25 minutes Kalpana Poe PA-C Work Phone: [facility] Comment on above: 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 (Primary Dx); Right elbow pain; Right hand pain; Cervical radiculopathy; DDD (degenerative disc disease), cervical Start: 07-23-2024 End: 07-23-2024 Subsequent hospital visit by physician [facility] Work Phone: Radiology Comment on above: 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 [M25.511, G89.29] Start: 06-29-2024 End: 06-29-2024 Discharged Recurring Torri Mendoza PA -Laboratory Work Phone: Start: 06-29-2024 End: 06-29-2024 ambulatory Torri CARL Facility:[facility] Start: 06-15-2024 End: 06-15-2024 Patient encounter procedure Harlan Ford DO Work Phone: [facility] Comment on above: Type 2 diabetes vikram itus with diabetic polyneuropathy, without long-term current use of insulin ([facility]) (Primary Dx); Mixed hyperlipidemia; Primary hypertension; Other polyneuropathy; PAD (peripheral artery disease) ([facility]); Vitamin D deficiency; Obesity, Class I, BMI 30-34.9 Start: 06-15-2024 End: 06-15-2024 ambulatory HARLAN FORD Facility:[facility] Start: 06-10-2024 End: 07-14-2024 Telephone encounter Harlan Ford DO Work Phone: [facility] Start: 06-10-2024 End: 06-10-2024 ambulatory IDA KELLY GAN Facility:[facility] Start: 06-01-2024 End: 06-06-2024 ambulatory Torri CARL Facility:[facility] Start: 06-01-2024 End: 06-06-2024 Discharged Recurring Torri Mendoza PA -Laboratory Work Phone: Start: 04-20-2024 End: 04-21-2024 Refill Harlan Ford DO Work Phone: [facility] Comment on above: Refill Request Start: 04-07-2024 End: 04-07-2024 ambulatory Torri CARL Facility:[facility] Start: 03-13-2024 End: 03-13-2024 Telephone encounter Matheus CARL Work Phone: [facility] Comment on above: Results Start: 03-11-2024 End: 03-11-2024 ambulatory HARLAN FORD Facility:[facility] Start: 03-11-2024 End: 03-11-2024 Patient encounter procedure Tyrell Corrigan APRN.CNP Work Phone: [facility] Comment on above: Open wound of skin ( Primary Dx) Start: 03-04-2024 End: 03-04-2024 Refill Harlan Ford DO Work Phone: [facility] Comment on above: Results Start: 03-03-2024 End: 03-03-2024 ambulatory HARLAN FORD Facility:[facility] Start: 03-03-2024 End: 03-03-2024 Patient encounter procedure Harlan Ford DO Work Phone: [facility] Comment on above: Rash (Primary Dx); Vasculitis limited to skin; Type 2 diabetes mellitus with diabetic polyneuropathy, without long-term current use of insulin (HCC); Other polyneuropathy; Mixed hyperlipidemia; Primary hypertension Start: 02-27-2024 End: 02-27-2024 ambulatory Torri CARL Facility:[facility] Start: 02-11-2024 Telephone encounter Harlan chery DO Work Phone: [facility] [place] Comment on above: [facility] Call[facility]Request Start: 02-04-2024 End: 02-05-2024 ambulatory Torri CARL Facility:[facility] Start: 01-30-2024 Telephone encounter Harlan chery DO Work Phone: [facility] [place] Comment on above: [facility] Start: 01-29-2024 Refill Harlan Caraballoshukri carroll DO Work Phone: [facility] [place] Comment on above: Refill Request Start: 11-26-2023 End: 11-26-2023 Patient encounter procedure Harlan Waldo Ford DO Work Phone: [facility] Comment on above: Type 2 diabetes [...] 11-05-[address] Harlan Ford Work Phone: [facility] Work Phone: Start: 10-29-2023 End: 11-05-[address] Harlan Ford Work Phone: [facility]-Laboratory Work Phone: Start: 10-18-2023 Refill Harlan lazo MD Work Phone: [facility] Comment on above: Refill Request Start: 10-15-2023 Refill Ida Malik ALEXANDER Work Phone: [facility] Comment on above: Refill Request Start: 10-15-2023 Refill Harlan hodges DO Work Phone: [facility] Comment on above: Refill Request Start: 10-01-2023 End: 10-06-[address] Harlan Ford Work Phone: [facility] Work Phone: Start: 10-01-2023 End: 10-06-[address] Harlan Ford Work Phone: [facility]-Laboratory Work Phone: Start: 10-01-[address] Branden Ford Work Phone: [facility] Work Phone: Start: 09-24-2023 Non-patient / Non-visit Dr. Ashlyn Ford Work Phone: [facility] Start: 09-24-2023 End: 09-24-[address] Harlan Ford Work Phone: [facility] Work Phone: Start: 09-24-2023 End: 09-24-[address] Harlan Ford Work Phone: [facility]-Cardiovascula r Services Work Phone: Start: 09-03-2023 End: 09-05-[address] Harlan Ford Work Phone: [facility] Work Phone: Start: 09-03-2023 End: 09-05-[address] Harlan Ford Work Phone: [facility]Labor[facility] Work Phone: Start: 08-28-2023 End: 08-28-2023 Patient encounter procedure Harlan Ford DO Work Phone: [facility] [place] Comment on above: Type 2 diabetes vikram itus with diabetic polyneuropathy, without long-term current use of insulin ([facility]) (Primary Dx); Mixed hyperlipidemia; Atrial fibrillation with rapid ventricular response ([facility]); Hypertension, essential; Gait disorder; Actinic keratosis; Vitamin D deficiency; Other polyneuropathy; Diabetic ulcer of left midfoot associated with type 2 diabetes mellitus, limited to breakdown of skin ([facility]); PAD (peripheral artery disease) ([facility]); Thrombocytopenia ([facility]) Start: 08-06-2023 End: 08-06-[address] Harlan Ford Work Phone: [facility] Work Phone: Start: 08-06-2023 End: 08-06-[address] Harlan Ford Work Phone: [facility]Laboratory Work Phone: Start: 07-30-2023 End: 07-30-[address] Harlan Ford Work Phone: [facility] Work Phone: Start: 07-23-2023 End: 07-23-[address] Harlan Ford Work Phone: [facility] Work Phone: Start: 07-23-2023 End: 07-23-[address] Harlan Ford Work Phone: [facility]Labor[facility] Work Phone: Start: 07-17-2023 Telephone encounter Harlan chery DO Work Phone: [facility] Start: 07-10-2023 End: 07-10-[address] Harlan Ford Work Phone: [facility] Work Phone: Start: 06-10-2023 Refill Harlan hodges DO Work Phone: [facility] Comment on above: Refill Request Start: 05-22-2023 End: 05-22-2023 Patient encounter procedure Harlan Ford DO Work Phone: [facility] Comment on above: Type 2 diabetes vikram itus with diabetic polyneuropathy, without long-term current use of insulin (HCC) (Primary Dx); Mixed hyperlipidemia; Other polyneuropathy; Vitamin D deficiency; Atrial fibrillation with rapid ventricular response (HCC); Acute renal insufficiency; Hypertension, essential; Gait disorder; PAD (peripheral artery disease) ([facility]); Thrombocytopenia (HCC) Start: 03-25-2023 Non-patient / Non-visit Dr. Ashlyn Ford Work Phone: [facility] Start: 03-25-2023 End: 03-25-[address] Harlan Ford Work Phone: [facility] Work Phone: Start: 03-25-2023 End: 03-25-[address] Harlan Ford Work Phone: [facility]-Cardiovascula r Services Work Phone: Start: 03-22-2023 Refill Harlan Caraballoshukri carroll DO Work Phone: [facility] Comment on above: Refill Request Start: 02-21-2023 Refill Harlan Ayala carroll DO Work Phone: [facility] Comment on above: Refill Request Start: 02-13-2023 End: 02-13-2023 Patient encounter procedure Harlan Ford DO Work Phone: [facility] Comment on above: Acute cystitis with hematuria (Primary Dx); Atrial fibrillation with rapid ventricular response (HCC); Acute diverticulitis; Acute renal insufficiency; Type 2 diabetes mellitus with diabetic polyneuropathy, without long-term current use of insulin (HCC); Gait disorder; Hypertension, essential; Other polyneuropathy Start: 02-13-[address] [facility] Work Phone: Start: 02-07-2023 End: 02-07-[address] Harlan Ford Work Phone: [facility] Work Phone: Start: 01-25-2023 Non-patient / Non-visit Dr. Ashlyn Ford Work Phone: [facility] In[facility] Phys[facility] Work Phone: Start: 01-25-2023 Non-patient / Non-visit Dr. Ashlyn Ford Work Phone: [facility] Start: 01-24-2023 Non-patient / Non-visit Dr. Ashlyn Ford Work Phone: [facility] Work Phone: Start: 01-24-2023 End: 01-25-2023 Evaluation and management of inpatient Dr. Harlan Ford Work Phone: [facility]-Progressive Care Unit Work Phone: Start: 01-24-[address] Janak Ford Work Phone: [facility] Work Phone: Start: 01-15-2023 Refill Harlan hodges DO Work Phone: [facility] Comment on above: Refill Request Start: 01-05-2023 End: 01-05-2023 Emergency department patient [facility] Work [facility]: Start: 12-16-2022 End: 12-17-2022 Emergency department patient [facility] Work [facility] Start: 12-05-2022 Refill Harlan hodges DO Work Phone: [facility] [place] Comment on above: Refill Request Start: 11-19-2022 ambulatory Pcp ([facility] Start: 11-14-2022 Telephone encounter Harlan chery DO Work Phone: [facility] [place] Comment on above: requesting handicap placard rx Start: 11-13-2022 End: 11-13-2022 Patient encounter procedure [facility] Comment on above: Type 2 diabetes vikram itus with diabetic polyneuropathy, without long-term current use of insulin (HCC) (Primary Dx); PAD (peripheral artery disease) ([facility]); Hypertension, essential; Mixed hyperlipidemia; Other polyneuropathy; Hypercalcemia; Vitamin D deficiency; Benign prostatic hyperplasia with lower urinary tract symptoms, symptom details unspecified; Thrombocytopenia (HCC); Diabetic ulcer of left midfoot associated with type 2 diabetes mellitus, limited to breakdown of skin ([facility]) Start: 11-07-2022 Telephone encounter [facility] DO [facility] Comment on above: Orders Start: 10-11-2022 End: 10-11-[address] Harlan Ford Work Phone: [facility] Work Phone: Start: 10-10-2022 End: 10-10-2022 Patient encounter procedure Jose Osborne APRN.CNP Work Phone: [facility] [place] Comment on above: Cerebrovascular acci dent (CVA) due to stenosis of right carotid artery (HCC) (Primary Dx) Start: 09-20-2022 Non-patient / Non-visit Dr. Ashlyn Ford Work Phone: [place] Start: 09-19-2022 Non-patient / Non-visit Dr. Ashlyn Ford Work Phone: [place] Start: 09-19-2022 End: 09-20-2022 Evaluation and management of inpatient Dr. Harlan Ford Work Phone: [facility]-Intensive Care Unit Start: 09-13-2022 Telephone encounter Harlan chery DO Work Phone: [facility] Comment on above: Release Of Medical R ecords Start: 09-12-2022 Orders Only Roshan Ray MD Work Phone: Vascular Surgery Comment on above: Peripheral arterial disease (HCC) (Primary Dx) Start: 09-10-2022 End: 09-10-[address] Harlan Ford Work Phone: [facility] Start: 09-06-2022 End: 09-06-2022 Emergency department patient visit [facility]-Emergency Department Start: 09-05-2022 End: 09-05-2022 Patient encounter procedure Roshan Ray MD Work Phone: [facility] Comment on above: Bilateral carotid ar ranulfo stenosis (Primary Dx); PAD (peripheral artery disease) (HCC); Peripheral arterial disease (HCC); Aortoiliac stenosis (HCC) Start: 08-22-2022 Telephone encounter Harlan chery DO Work Phone: [facility] Comment on above: Results Start: 08-10-2022 Telephone encounter Harlan chery DO Work Phone: [facility] Comment on above: Results Start: 08-08-2022 End: 08-08-2022 Patient encounter procedure Harlan Ford DO Work Phone: [facility] Comment on above: Type 2 diabetes vikram itus with diabetic polyneuropathy, without long-term current use of insulin (HCC) (Primary Dx); Decreased pulses in feet; Mass of left side of neck; Actinic keratosis; Cold intolerance; Muscle cramp; Hypertension, essential; Mixed hyperlipidemia; Other polyneuropathy Start: 02-05-2022 Telephone encounter Jose Gomez YADIRA.SHOP FOREMAN Work Phone: [facility] [place] Comment on above: Results Start: 01-31-2022 End: 01-31-2022 Patient encounter procedure Jose Osborne E COMMERCE DIRECTOR.SHOP FOREMAN Work Phone: [facility] [place] Comment on above: Calf cramp (Primary Dx); Hypertension, essential; Type 2 diabetes mellitus with diabetic polyneuropathy, without long-term current use of insulin (HCC); Mixed hyperlipidemia Start: 01-31-2022 Refill Ida Gabrielle bender E COMMERCE DIRECTOR.SHOP FOREMAN Work Phone: [facility] [place] Comment on above: Refill Request Start: 01-02-2022 Telephone encounter Harlan pantojatal DO Work Phone: [facility] Comment on above: Refill Request Start: 01-01-2022 Refill Harlan Ayala son DO Work Phone: [facility] Comment on above: Refill Request Start: 12-26-2021 Refill Harlan hodges DO Work Phone: [facility] Comment on above: Refill Request Start: 10-31-2021 End: 10-31-2021 Patient encounter procedure Harlan Ford DO Work Phone: [facility] [place] Comment on above: Hypertension, essent ial (Primary Dx); Mixed hyperlipidemia; Other polyneuropathy; Primary osteoarthritis of left knee; Type 2 diabetes mellitus with diabetic polyneuropathy, without long-term current use of insulin (HCC); Vitamin D deficiency Start: 08-29-2021 End: 08-29-[address] RADHA CHOI MD [facility] Start: 08-18-2021 End: 08-18-[address] RADHA CHOI MD [facility] Start: 08-18-2021 End: 08-18-[address] RADHA CHOI MD [facility] Procedures Date Procedure Procedure Detail Performing Clinician [...] of carotid endarterectomy S/P carotid endarterectomy Nellie oMrris PA Inguinal hernia (disorder) DR RADHA CHOI MD Umbilical hernia (disorder) DR RADHA CHOI MD Plan of Treatment Date Care Activity Detail Author Start: 01-03-2031 Urine microalbumin profile DTa P,Tdap,Td Vaccine (2 - Td or Tdap) [facility] Start: 04-11-2030 Colonoscopy COLONOSCOPY [facility] Start: 04-11-2030 COLORECTAL CANCER SCREENING COLORECTAL CANCER SCREENING [facility] Start: 12-22-2025 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 Disease Visit Annual PCP Team Chronic Disease Visit [facility] Start: 12-22-2025 Medicare Annual Well ness Visit Medicare Annual Wellness Visit [facility] Start: 09-15-2025 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 Disease Visit Annual PCP Team Chronic Disease Visit [facility] Start: 09-15-2025 BP Controlled (<130/80) BP Controlle d (<130/80) [facility] Start: 07-29-2025 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 Disease Visit Annual PCP Team Chronic Disease Visit [facility] Start: 06-23-2025 Hemoglobin A1c measurement HbA1C [facility] Start: 06-15-2025 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 Disease Visit Annual PCP Team Chronic Disease Visit [facility] Start: 06-15-2025 BP Controlled (<130/80) BP Controlle d (<130/80) [facility] Start: 06-15-2025 Covid-19 Vaccine () Covid-19 Vaccine () [facility] Comment on above: Postponed from 03/08 (Declined at this time) Start: 06-10-2025 Hepatitis B surface antibody level LDL Cholesterol [facility] Start: 06-08-2025 End: 06-08-2025 Patient encounter procedure 06/08/2025 10:00 AM EST Office Visit Family [facility] [place] [address] [place], [place] [id number] Harlan Ford DO [address] [place], [place] [id number] 6 month follow up [facility] [place] Comment on above: 6 month follow up Start: 03-25-2025 End: 06-24-2025 CBC panel - Blood by Automated count COMPLETE BLOOD COUNT Lab Routine Type 2 diabetes mellitus with diabetic polyneuropathy, without long-term current use of insulin (HCC) Expected: 03/25/2025, Expires: 06/24/2025 [facility] Comment on above: Expected: 03/25/2025 , Expires: 06/24/2025 Start: 03-25-2025 End: 06-24-2025 Comprehensive metabolic 2000 panel - Serum or Plasma COMPREHENSIVE METABOLIC PANEL Lab Routine Type 2 diabetes mellitus with diabetic polyneuropathy, without long-term current use of insulin (HCC) Expected: 03/25/2025, Expires: 06/24/2025 [facility] Work Phone: Comment on above: Expected: 03/25/2025 , Expires: 06/24/2025 Start: 03-25-2025 End: 06-24-2025 Hemoglobin A1c in Blood HEMOGLOBIN A1C Lab Routine Type 2 diabetes mellitus with diabetic polyneuropathy, without long-term current use of insulin (HCC) Expected: 03/25/2025, Expires: 06/24/2025 [facility] Comment on above: Expected: 03/25/2025 , Expires: 06/24/2025 Start: 03-25-2025 End: 06-24-2025 Lipid 1996 panel - Serum or Plasma LIPID PANEL, FASTING Lab Routine Mixed hyperlipidemia Expected: 03/25/2025, Expires: 06/24/2025 [facility] Comment on above: Expected: 03/25/2025 , Expires: 06/24/2025 Start: 03-03-2025 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 Disease Visit Annual PCP Team Chronic Disease Visit [facility] Start: 03-03-2025 BP Controlled (<130/80) BP Controlle d (<130/80) [facility] Start: 03-03-2025 Diabetic foot examination Diabetic F oot Exam [facility] Start: 01-20-2025 Glaucoma screening Dilated Retinal E xam [facility] Start: 12-22-2024 End: 12-22-2024 Patient encounter procedure 12/22/2024 10:00 AM EDT Office Visit Family [facility] [place] [address] [place] [id number] Harlan Ford DO [address] [facility] [place] [id number] 3 month follow up Family [facility] [place] Comment on above: 3 month follow up Start: 12-09-2024 Hemoglobin A1c measurement HbA1C [facility] Start: 11-25-2024 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 Disease Visit Annual PCP Team Chronic Disease Visit [facility] Start: 11-25-2024 Anxiety Screening Anxiety Screening [facility] Start: 11-25-2024 BP Controlled (<130/80) BP Controlle d (<130/80) [facility] Start: 11-25-2024 Depression Screening Depression Scre ening [facility] Start: 10-08-2024 Patient referral [facility] Work Phone: Start: 09-15-2024 End: 09-15-2024 Patient encounter procedure 09/15/2024 9:40 AM EDT Office Visit Family [facility] [place] [address] [facility] [place] [id number] Harlan Ford DO [address] [facility] [place] [id number] 3 month follow up [facility] [place] Comment on above: 3 month follow up Start: 08-28-2024 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 Disease Visit Annual PCP Team Chronic Disease Visit [facility] Start: 08-28-2024 BP Controlled (<130/80) BP Controlle d (<130/80) [facility] Start: 08-21-2024 Glaucoma screening Dilated Retinal E xam [facility] Start: 06-15-2024 End: 06-15-2024 Patient encounter procedure 06/15/2024 9:20 AM EST Office Visit Family [facility] [place] [address] [place], [place] [address] Harlan Ford DO [address] [place], [place] [id number] 3 month follow up Family [facility] [place] Comment on above: 3 month follow up Start: 05-22-2024 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 Disease Visit Annual PCP Team Chronic Disease Visit [facility] Start: 05-22-2024 BP Controlled (<130/80) BP Controlle d (<130/80) [facility] Start: 05-22-2024 Covid-19 Vaccine () Covid-19 Vaccine () [facility] Comment on above: Postponed from 03/08 (Declined at this time) Start: 03-11-2024 End: 06-10-2024 Bacteria identified in Wound by Culture [facility] Work Phone: Comment on above: Expected: 03/11/2024 , Expires: 06/10/2024 Start: 03-11-2024 End: 06-10-2024 Herpes simplex virus+Varicella zoster virus DNA [Presence] in Unspecified specimen by JOSÉ with probe detection [facility] Comment on above: Expected: 03/11/2024 , Expires: 06/10/2024 Start: 03-08-2024 Covid-19 Vaccine () Covid-19 Vaccine () [facility] Start: 03-08-2024 Covid-19 Vaccine () Covid-19 Vaccine () [facility] Start: 03-08-2024 Influenza vaccination Influenza Vacc ine (#1) [facility] Start: 03-03-2024 End: 06-02-2024 Borrelia burgdorferi IgG and IgM panel - Serum [facility] Comment on above: Expected: 03/03/2024 , Expires: 06/02/2024 Start: 03-03-2024 End: 06-02-2024 C reactive protein [Mass/volume] in Serum or Plasma [facility] Work Phone: Comment on above: Expected: 03/03/2024 , Expires: 06/02/2024 Start: 03-03-2024 End: 06-02-2024 Erythrocyte sedimentation rate [facility] Comment on above: Expected: 03/03/2024 , Expires: 06/02/2024 Start: 03-03-2024 End: 06-02-2024 Extractable nuclear Ab panel - Serum [facility] Comment on above: Expected: 03/03/2024 , Expires: 06/02/2024 Start: 03-03-2024 End: 06-02-2024 Nuclear Ab [Presence] in Serum by Immunoassay [facility] Comment on above: Expected: 03/03/2024 , Expires: 06/02/2024 Start: 03-03-2024 End: 03-03-2024 Patient encounter procedure 03/03/2024 10:00 AM EDT Office Visit [facility] [place] [address] [place], [place] [id number] Harlan Ford DO [address] [place] [address] 3 month follow up [facility] [place] Comment on above: 3 month follow up Start: 02-14-2024 ANNUAL PCP TEAM MACARONI PRESS OPERATOR CASSANDRA DISEASE VISIT ANNUAL PCP TEAM CHRONIC DISEASE VISIT [facility] Start: 02-14-2024 BP CONTROLLED (<130/80) BP CONTROLLE D (<130/80) [facility] Start: 02-07-2024 Hepatitis B screening URINE ALBUMIN:CREATININE RATIO [facility] Start: 02-07-2024 Hepatitis B surface antibody level LDL CHOLESTEROL [facility] Start: 01-11-2024 ANNUAL PCP TEAM MACARONI PRESS OPERATOR CASSANDRA DISEASE VISIT ANNUAL PCP TEAM CHRONIC DISEASE VISIT [facility] Start: 01-11-2024 BP CONTROLLED (<130/80) BP CONTROLLE D (<130/80) [facility] Start: 12-12-2023 Glaucoma screening Dilated Retinal E xam [facility] Start: 12-12-2023 Hepatitis C antibody , confirmatory test DILATED RETINAL EXAM [facility] Start: 11-26-2023 End: 02-25-2024 25-hydroxyvitamin D3 [Mass/volume] in Serum or Plasma VITAMIN D 25 HYDROXY Lab Routine Vitamin D deficiency Expected: 11/26/2023, Expires: 02/25/2024 [facility] Work Phone: Comment on above: Expected: 11/26/2023 , Expires: 02/25/2024 Start: 11-26-2023 End: 02-25-2024 Cobalamin (Vitamin B12) [Mass/volume] in Serum or Plasma VITAMIN B12 BLOOD Lab Routine Other polyneuropathy Expected: 11/26/2023, Expires: 02/25/2024 [facility] Work Phone: Comment on above: Expected: 11/26/2023 , Expires: 02/25/2024 Start: 11-26-2023 End: 02-25-2024 Comprehensive metabolic 2000 panel - Serum or Plasma COMP METABOLIC PANEL Lab Routine Type 2 diabetes mellitus with diabetic polyneuropathy, without long-term current use of insulin (HCC) Expected: 11/26/2023, Expires: 02/25/2024 [facility] Work Phone: Comment on above: Expected: 11/26/2023 , Expires: 02/25/2024 Start: 11-26-2023 End: 02-25-2024 Hemoglobin A1c in Blood HGB A1C Lab Routine Type 2 diabetes mellitus with diabetic polyneuropathy, without long-term current use of insulin (HCC) Expected: 11/26/2023, Expires: 02/25/2024 [facility] Work Phone: Comment on above: Expected: 11/26/2023 , Expires: 02/25/2024 Start: 11-26-2023 End: 02-25-2024 Lipid 1996 panel - Serum or Plasma LIPID PANEL BASIC Lab Routine Mixed hyperlipidemia Expected: 11/26/2023, Expires: 02/25/2024 [facility] Work Phone: Comment on above: Expected: 11/26/2023 , Expires: 02/25/2024 Start: 11-18-2023 Hemoglobin A1c measurement HbA1C [facility] Start: 11-18-2023 Hemoglobin A1c/Hemoglobin.total in Blood HbA1C [facility] Start: 11-14-2023 3 comp foot exam completed DIABETIC FOOT EXAM [facility] Start: 11-14-2023 ANNUAL PCP TEAM MACARONI PRESS OPERATOR CASSANDRA DISEASE VISIT ANNUAL PCP TEAM CHRONIC DISEASE VISIT [facility] Start: 11-14-2023 BP CONTROLLED (<130/80) BP CONTROLLE D (<130/80) [facility] Start: 11-14-2023 Diabetic foot examination Diabetic F oot Exam [facility] Start: 10-11-2023 ANNUAL PCP TEAM MACARONI PRESS OPERATOR CASSANDRA DISEASE VISIT ANNUAL PCP TEAM CHRONIC DISEASE VISIT [facility] Start: 10-11-2023 BP CONTROLLED (<130/80) BP CONTROLLE D (<130/80) [facility] Start: 09-06-2023 BP CONTROLLED (<130/80) BP CONTROLLE D (<130/80) [facility] [facility] Start: 08-22-2023 End: 11-21-2023 CBC W Auto Differential panel - Blood CBC + DIFF Lab Routine Type 2 diabetes mellitus with diabetic polyneuropathy, without long-term current use of insulin (HCC) Other polyneuropathy Expected: 08/22/2023, Expires: 11/21/2023 [facility] Work Phone: Comment on above: Expected: 08/22/2023 , Expires: 11/21/2023 Start: 08-22-2023 End: 11-21-2023 Cobalamin (Vitamin B12) [Mass/volume] in Serum or Plasma VITAMIN B12 BLOOD Lab Routine Type 2 diabetes mellitus with diabetic polyneuropathy, without long-term current use of insulin (HCC) Other polyneuropathy Expected: 08/22/2023, Expires: 11/21/2023 [facility] Work Phone: Comment on above: Expected: 08/22/2023 , Expires: 11/21/2023 Start: 08-22-2023 End: 11-21-2023 Comprehensive metabolic 2000 panel - Serum or Plasma COMP METABOLIC PANEL Lab Routine Type 2 diabetes mellitus with diabetic polyneuropathy, without long-term current use of insulin (HCC) Other polyneuropathy Expected: 08/22/2023, Expires: 11/21/2023 [facility] Work Phone: Comment on above: Expected: 08/22/2023 , Expires: 11/21/2023 Start: 08-22-2023 End: 11-21-2023 Hemoglobin A1c in Blood HGB A1C Lab Routine Type 2 diabetes mellitus with diabetic polyneuropathy, without long-term current use of insulin (HCC) Expected: 08/22/2023, Expires: 11/21/2023 [facility] Work Phone: Comment on above: Expected: 08/22/2023 , Expires: 11/21/2023 Start: 08-22-2023 End: 11-21-2023 Thyrotropin [Units/volume] in Serum or Plasma TSH BLD Lab Routine Type 2 diabetes mellitus with diabetic polyneuropathy, without long-term current use of insulin (HCC) Other polyneuropathy Expected: 08/22/2023, Expires: 11/21/2023 [facility] Work Phone: Comment on above: Expected: 08/22/2023 , Expires: 11/21/2023 Start: 08-09-2023 Hemoglobin A1c/Hemoglobin.total in Blood HBA1C [facility] Start: 08-08-2023 ANNUAL PCP TEAM MACARONI PRESS OPERATOR CASSANDRA DISEASE VISIT ANNUAL PCP TEAM CHRONIC DISEASE VISIT [facility] Start: 08-08-2023 BP CONTROLLED (<130/80) BP CONTROLLE D (<130/80) [facility] Start: 08-03-2023 Hepatitis B surface antibody level LDL CHOLESTEROL [facility] Start: 07-16-2023 Hepatitis C antibody , confirmatory test DILATED RETINAL EXAM [facility] Start: 07-08-2023 Behavioral Health Screening Behavioral Health Screening [facility] Start: 05-12-2023 Hemoglobin A1c/Hemoglobin.total in Blood HBA1C [facility] Start: 03-08-2023 Influenza vaccination C [facility] Start: 02-13-2023 End: 04-15-2023 ALBUMIN/CREAT RATIO RND UR ALBUMIN/CREAT RATIO RND UR Lab Routine Type 2 diabetes mellitus with diabetic polyneuropathy, without long-term current use of insulin ([facility]) Expected: 02/13/2023, Expires: 04/15/2023 [facility] Work Phone: Comment on above: Expected: 02/13/2023 , Expires: 04/15/2023 Start: 02-13-2023 End: 04-15-2023 Cobalamin (Vitamin B12) [Mass/volume] in Serum or Plasma VITAMIN B12 BLOOD Lab Routine Type 2 diabetes mellitus with diabetic polyneuropathy, without long-term current use of insulin (HCC) PAD (peripheral artery disease) ([facility]) Other polyneuropathy Expected: 02/13/2023, Expires: 04/15/2023 [facility] Work Phone: Comment on above: Expected: 02/13/2023 , Expires: 04/15/2023 Start: 02-13-2023 End: 04-15-2023 Comprehensive metabolic 2000 panel - Serum or Plasma COMP METABOLIC PANEL Lab Routine Hypercalcemia Expected: 02/13/2023, Expires: 04/15/2023 [facility] Work Phone: Comment on above: Expected: 02/13/2023 , Expires: 04/15/2023 Start: 02-13-2023 End: 04-15-2023 Hemoglobin A1c in Blood HGB A1C Lab Routine Type 2 diabetes mellitus with diabetic polyneuropathy, without long-term current use of insulin ([facility]) Expected: 02/13/2023, Expires: 04/15/2023 [facility] Work Phone: Comment on above: Expected: 02/13/2023 , Expires: 04/15/2023 Start: 02-13-2023 End: 04-15-2023 Lipid 1996 panel - Serum or Plasma LIPID PANEL BASIC Lab Routine Mixed hyperlipidemia Expected: 02/13/2023, Expires: 04/15/2023 [facility] Work Phone: Comment on above: Expected: 02/13/2023 , Expires: 04/15/2023 Start: 02-13-2023 End: 04-15-2023 Parathyrin.intact [Mass/volume] in Serum or Plasma PTH INTACT BLD Lab Routine Hypercalcemia Expected: 02/13/2023, Expires: 04/15/2023 [facility] Work Phone: Comment on above: Expected: 02/13/2023 , Expires: 04/15/2023 Start: 01-31-2023 ANNUAL PCP TEAM MACARONI PRESS OPERATOR CASSANDRA DISEASE VISIT ANNUAL PCP TEAM CHRONIC DISEASE VISIT [facility] Start: 01-31-2023 BP CONTROLLED (<130/80) BP CONTROLLE D (<130/80) [facility] Start: 01-25-2023 Hepatitis B surface antibody level LDL CHOLESTEROL [facility] Start: 01-25-2023 Patient discharge [facility] Start: 01-25-2023 T4 free measurement [facility] Start: 01-25-2023 Triiodothyronine, fr ee measurement [facility] Start: 01-25-2023 [facility] Start: 01-24-2023 Following clinical p athway protocol [facility] Start: 01-24-2023 Vitamin B12 measurement [facility] Start: 01-24-2023 Care regimes management [facility] Start: 01-24-2023 Notification of physician [facility] Start: 01-24-2023 Admission procedure [facility] Start: 01-24-2023 Assessment of risk o f venous thromboembolism [facility] Start: 01-24-2023 Cardiac monitoring [facility] Start: 01-24-2023 Insertion of cathete r into peripheral vein [facility] Start: 01-24-2023 Measuring intake and output [facility] Start: 01-24-2023 Providing care accor ding to standard [facility] Start: 01-24-2023 Referral to cable assembler and swager [facility] Start: 01-24-2023 Referral to occupati onal therapist [facility] Start: 01-24-2023 Referral to service [facility] Start: 01-24-2023 Verification routine [facility] Start: 01-24-2023 End: 01-24-2023 [facility] Start: 01-24-2023 End: 01-24-2023 [facility] Start: 01-24-2023 Bacteria identified in Urine by Culture Urine Culture [facility] Start: 01-05-2023 Bacteria identified in Urine by Culture Urine Culture [facility] Start: 01-05-2023 [facility] Start: 11-07-2022 End: 01-07-2023 CBC panel - Blood by Automated count CBC Lab Routine Type 2 diabetes mellitus with diabetic polyneuropathy, without long-term current use of insulin ([facility]) Expected: 11/07/2022, Expires: 01/07/2023 [facility] Work Phone: Comment on above: Expected: 11/07/2022 , Expires: 01/07/2023 Start: 11-07-2022 End: 01-07-2023 Comprehensive metabolic 2000 panel - Serum or Plasma COMP METABOLIC PANEL Lab Routine Hypersplenism Expected: 11/07/2022, Expires: 01/07/2023 [facility] Work Phone: Comment on above: Expected: 11/07/2022 , Expires: 01/07/2023 Start: 11-07-2022 End: 01-07-2023 Hemoglobin A1c in Blood HGB A1C Lab Routine Type 2 diabetes mellitus with diabetic polyneuropathy, without long-term current use of insulin ([facility]) Expected: 11/07/2022, Expires: 01/07/2023 [facility] Work Phone: Comment on above: Expected: 11/07/2022 , Expires: 01/07/2023 Start: 11-01-2022 Hemoglobin A1c/Hemoglobin.total in Blood HBA1C [facility] Start: 10-31-2022 3 comp foot exam completed DIABETIC FOOT EXAM [facility] Start: 10-31-2022 ANNUAL PCP TEAM MACARONI PRESS OPERATOR CASSANDRA DISEASE VISIT ANNUAL PCP TEAM CHRONIC DISEASE VISIT [facility] Start: 09-20-2022 Patient discharge [facility] Start: 09-19-2022 Following clinical p athway protocol [facility] Start: 09-19-2022 Ambulation without limitation [facility] Start: 09-19-2022 Assessment of risk o f venous thromboembolism [facility] Start: 09-19-2022 Care regimes management [facility] Start: 09-19-2022 Catheterization of vein [facility] Start: 09-19-2022 Continuous pulse oximetry [facility] Start: 09-19-2022 Deep breathing and coughing exercises [facility] Start: 09-19-2022 Elevation of head of bed [facility] Start: 09-19-2022 Incentive spirometry [facility] Start: 09-19-2022 Insertion of cathete r into peripheral vein [facility] Start: 09-19-2022 Measuring intake and output [facility] Start: 09-19-2022 Notification of physician [facility] Start: 09-19-2022 Patient referral to dietitian [facility] Start: 09-19-2022 Providing care accor ding to standard [facility] Start: 09-19-2022 Provision of activit y privileges [facility] Start: 09-19-2022 Referral to occupati onal therapist [facility] Start: 09-19-2022 Referral to service [facility] Start: 09-19-2022 Vital signs measurements [facility] Start: 09-19-2022 [facility] Start: 09-19-2022 Admission procedure [facility] Start: 09-19-2022 Patient referral to [facility] Start: 09-06-2022 Oxygen therapy [facility] Start: 09-06-2022 [facility] Start: 08-03-2022 End: 10-03-2022 CBC panel - Blood by Automated count CBC Lab Routine Hypertension, essential Type 2 diabetes mellitus with diabetic polyneuropathy, without long-term current use of insulin (HCC) Expected: 08/03/2022, Expires: 10/03/2022 [facility] Work Phone: Comment on above: Expected: 08/03/2022 , Expires: 10/03/2022 Start: 08-03-2022 End: 10-03-2022 Comprehensive metabolic 2000 panel - Serum or Plasma COMP METABOLIC PANEL Lab Routine Hypertension, essential Type 2 diabetes mellitus with diabetic polyneuropathy, without long-term current use of insulin (HCC) Expected: 08/03/2022, Expires: 10/03/2022 [facility] Work Phone: Comment on above: Expected: 08/03/2022 , Expires: 10/03/2022 Start: 08-03-2022 End: 10-03-2022 Hemoglobin A1c in Blood HGB A1C Lab Routine Hypertension, essential Type 2 diabetes mellitus with diabetic polyneuropathy, without long-term current use of insulin (HCC) Expected: 08/03/2022, Expires: 10/03/2022 [facility] Work Phone: Comment on above: Expected: 08/03/2022 , Expires: 10/03/2022 Start: 08-03-2022 End: 10-03-2022 Lipid 1996 panel - Serum or Plasma LIPID PANEL BASIC Lab Routine Mixed hyperlipidemia Expected: 08/03/2022, Expires: 10/03/2022 [facility] Work Phone: Comment on above: Expected: 08/03/2022 , Expires: 10/03/2022 Start: 07-28-2022 Hemoglobin A1c/Hemoglobin.total in Blood HBA1C [facility] Start: 05-22-2022 Hepatitis B surface antibody level LDL CHOLESTEROL [facility] Start: 03-08-2022 Influenza vaccination INFLUENZA (#1) [facility] Start: 02-28-2022 Adult depression scr eening assessment DEPRESSION SCREENING [facility] Start: 01-30-2022 End: 04-01-2022 Comprehensive metabolic 2000 panel - Serum or Plasma COMP METABOLIC PANEL Lab Routine Type 2 diabetes mellitus with diabetic polyneuropathy, without long-term current use of insulin (HCC) Expected: 01/30/2022, Expires: 04/01/2022 [facility] Work Phone: Comment on above: Expected: 01/30/2022 , Expires: 04/01/2022 Start: 01-30-2022 End: 04-01-2022 Hemoglobin A1c/Hemoglobin.total in Blood HGB A1C Lab Routine Type 2 diabetes mellitus with diabetic polyneuropathy, without long-term current use of insulin (HCC) Expected: 01/30/2022, Expires: 04/01/2022 [facility] Work Phone: Comment on above: Expected: 01/30/2022 , Expires: 04/01/2022 Start: 01-30-2022 End: 04-01-2022 LIPID PANEL BASIC LIPID PANEL BASIC Lab Routine Mixed hyperlipidemia Expected: 01/30/2022, Expires: 04/01/2022 [facility] Work Phone: Comment on above: Expected: 01/30/2022 , Expires: 04/01/2022 Start: 01-30-2022 End: 04-01-2022 VITAMIN B12 BLOOD VITAMIN B12 BLOOD Lab Routine Other polyneuropathy Expected: 01/30/2022, Expires: 04/01/2022 [facility] Work Phone: Comment on above: Expected: 01/30/2022 , Expires: 04/01/2022 Start: 01-30-2022 End: 04-01-2022 VITAMIN D 25 HYDROXY VITAMIN D 25 HYDROXY Lab Routine Other polyneuropathy Vitamin D deficiency Expected: 01/30/2022, Expires: 04/01/2022 [facility] Work Phone: Comment on above: Expected: 01/30/2022 , Expires: 04/01/2022 Start: 01-25-2022 Hemoglobin A1c/Hemoglobin.total in Blood HBA1C [facility] Start: 2021 RSV Vaccine (1 - 1-d ose 75+ series) RSV Vaccine (1 - 1-dose 75+ series) [facility] Start: 11-22-2021 BP CONTROLLED (<130/80) BP CONTROLLE D (<130/80) [facility] Start: 11-16-2021 Hepatitis B screening URINE ALBUMIN:CREATININE RATIO [facility] Start: 08-13-2021 COVID-19 VACCINE (4 - Booster for Pfizer series) COVID-19 VACCINE (4 - Booster for Pfizer series) [facility] Start: 08-02-2021 Hepatitis C antibody , confirmatory test DILATED RETINAL EXAM [facility] Start: 06-07-2021 COVID-19 VACCINE (4 - Booster for Pfizer series) COVID-19 VACCINE (4 - Booster for Pfizer series) [facility] Start: 06-07-2021 COVID-19 VACCINE (4 - Pfizer series) COVID-19 VACCINE (4 - Pfizer series) [facility] Start: 07-15-2019 SHINGRIX VACCINE (3 of 3) ALTAMIRANO GRIX VACCINE (3 of 3) [facility] Start: 04-30-2007 Urine microalbumin profile [facility] Start: 2006 Hepatitis B Vaccine (1 of 3 - Risk 3-dose series) Hepatitis B Vaccine (1 of 3 - Risk 3-dose series) [facility] Start: 2006 RSV Vaccine (1 - 1-d ose 60+ series) RSV Vaccine (1 - 1-dose 60+ series) [facility] Start: 12-30-1991 COLOGUARD (FIT-DNA) COLOGUARD (FIT-D NA) [facility] Start: 12-30-[address] [facility] Start: 12-30-1991 FECAL OCCULT BLOOD FECAL OCCULT BLOO D [facility] Start: 12-30-1991 SIGMOIDOSCOPY SIGMOIDOSCOPY [facility] Alanine aminotransfe rase [Enzymatic activity/volume] in Serum or Plasma [facility] Albumin [Mass/volume ] in Serum or Plasma [facility] Alkaline phosphatase [Enzymatic activity/volume] in Serum or Plasma [facility] Anion gap measurement [facility] Ankle brachial press ure index [facility] Aspartate aminotrans ferase [Enzymatic activity/volume] in Serum or Plasma [facility] End: 02-13-2024 Bacteria identified in Urine by Culture URINE CULTURE Microbiology Routine Acute cystitis with hematuria Every other week for 24 Occurrences starting 02/13/2023 until 02/13/2024 [facility] Work Phone: Comment on above: Every other week for 24 Occurrences starting 02/13/2023 until 02/13/2024 Bilirubin, total measurement [facility] BUN/Creatinine ratio [facility] Calcium [Mass/volume ] in Serum or Plasma [facility] Carbon dioxide, tota l [Moles/volume] in Serum or Plasma [facility] CBC W Auto Different ial panel - Blood [facility] Chloride [Moles/volu me] in Serum or Plasma [facility] Creatinine [Moles/vo lume] in Serum or Plasma [facility] End: 09-07-2023 Ct soft tissue neck w/o contrast material CT NECK SOFT TISSUE WO IVCON Radiology STAT Mass of left side of neck 1 Occurrences starting 08/08/2022 until 09/07/2023 [facility] Work Phone: Comment on above: 1 Occurrences starti ng 08/08/2022 until 09/07/2023 Glucose [Mass/volume ] in Serum or Plasma [facility] Hematocrit [Volume Fraction] of Blood [facility] Hemoglobin [Mass/vol ume] in Blood [facility] INR in Blood by Coagulation assay [facility] Leukocytes [#/volume ] in Blood [facility] Mean corpuscular hemoglobin concentration determination [facility] Mean corpuscular hemoglobin determination [facility] Measurement of renal function [facility] Neutrophil count [facility] Neutrophil percent differential count [facility] Patient Education [facility] Work Phone: Patient referral [facility] Work Phone: Platelets [#/volume] in Blood [facility] Potassium [Moles/vol ume] in Serum or Plasma [facility] Prothrombin time [facility] End: 08-08-2023 PVR ANK PRESS [facility] PVR ANK PRESS [facility] Vascular Lab Routine Decreased pulses in feet 1 Occurrences starting 08/08/2022 until 08/08/2023 [facility] Work Phone: Comment on above: 1 Occurrences starti ng 08/08/2022 until 08/08/2023 End: 09-06-2023 PVR ANK PRESS [facility] PVR ANK PRESS [facility] Vascular Lab Routine Peripheral arterial disease (HCC) 1 Occurrences starting 09/05/2022 until 09/06/2023 [facility] Work Phone: Comment on above: 1 Occurrences starti ng 09/05/2022 until 09/06/2023 Red blood cell count [facility] Red cell distributio n width determination [facility] Removal impacted cer umen irrigation/lvg unilat AMBULATORY EAR LAVAGE/IRRIGATION Procedures Routine Impacted cerumen of left ear Ordered: 09/02/2024 [facility] Work Phone: Comment on above: Ordered: 09/02/2024 End: 09-06-2023 SCREENING AORTA DUPLEX SCREENING [facility]ORT[facility]LEX Vascular Lab Routine Aortoiliac stenosis (HCC) 1 Occurrences starting 09/05/2022 until 09/06/2023 [facility] Work Phone: Comment on above: 1 Occurrences starti ng 09/05/2022 until 09/06/2023 Sodium [Moles/volume ] in Serum or Plasma [facility] Total protein measurement [facility] Urea nitrogen [Mass/volume] in Serum or Plasma [facility] End: 02-13-2024 Urinalysis complete panel - Urine URINALYSIS, WITH MICROSCOPIC Lab Routine Acute cystitis with hematuria Every other week for 24 Occurrences starting 02/13/2023 until 02/13/2024 [facility] Work Phone: Comment on above: Every other week for 24 Occurrences starting 02/13/2023 until 02/13/2024 US Carotid arteries [facility] US Carotid arteries [facility] End: 09-06-2023 US CAROTID ARTERIES [facility] US CAROTID ARTERIES [facility] Vascular Lab Routine Bilateral carotid artery stenosis 1 Occurrences starting 09/05/2022 until 09/06/2023 [facility] Work Phone: Comment on above: 1 Occurrences starti ng 09/05/2022 until 09/06/2023 End: 09-06-2023 US LEG ARTERIAL PERIPH [facility] US LEG ARTERIAL PERIPH [facility] Vascular Lab Routine Peripheral arterial disease (HCC) 1 Occurrences starting 09/05/2022 until 09/06/2023 [facility] Work Phone: Comment on above: 1 Occurrences starti ng 09/05/2022 until 09/06/2023 End: 09-13-2023 US POPLITEAL ARTERY [facility] US POPLITEAL ARTERY [facility] Vascular Lab Routine Peripheral arterial disease (HCC) 1 Occurrences starting 09/12/2022 until 09/13/2023 [facility] Work Phone: Comment on above: 1 Occurrences starti ng 09/12/2022 until 09/13/2023 [facility] Immunizations Immunization Date Immunization Notes Care Provider Vargas cartwright 04-09-2024 influenza, high dose seasonal, preservative-free Harlan Ford DO Work Phone: [facility] 04-24-2023 influenza (aIIV4) vaccine, age 65+ yr, quadrivalent, PF (FLUAD QUAD) Harlan Ford DO Work Phone: [facility] 04-24-2023 influenza virus vacc ine, unspecified formulation Harlan Ford DO Work Phone: [facility] 07-21-2022 zoster vaccine recombinant Harlan Ford DO Work Phone: [facility] 04-09-2022 influenza virus vacc ine, unspecified formulation Harlan Ford DO Work Phone: [facility] 01-03-2021 tetanus toxoid, redu edy diphtheria toxoid, and acellular pertussis vaccine, adsorbed Harlan Ford DO Work Phone: [facility] 09-16-2020 COVID-19 vaccine, ag e 12+ yr (PFIZER-BIONTECH - PURPLE TOP) Harlan Ford DO Work Phone: [facility] Work Phone: 08-26-2020 COVID-19 vaccine, ag e 12+ yr (PFIZER-BIONTECH - PURPLE TOP) Harlan Ford DO Work Phone: [facility] Work Phone: 11-21-2019 zoster vaccine recombinant Harlan Ford DO Work Phone: [facility] 06-04-2019 zoster vaccine recombinant Harlan Ford DO Work Phone: [facility] 05-20-2019 zoster vaccine recombinant Harlan Ford DO Work Phone: [facility] 05-19-2019 influenza, high dose seasonal, preservative-free Harlan Ford DO Work Phone: [facility] Work Phone: 05-20-2018 influenza, high dose seasonal, preservative-free Harlan Ford DO Work Phone: [facility] Work Phone: 05-21-2017 influenza, high dose seasonal, preservative-free Harlan Ford DO Work Phone: [facility] Work Phone: 07-12-2016 pneumococcal polysaccharide vaccine, 23 valent Harlan Ford DO Work Phone: [facility] Work Phone: 05-07-2016 influenza, high dose seasonal, preservative-free Harlan Ford DO Work Phone: [facility] Work Phone: 07-11-2015 influenza, high dose seasonal, preservative-free Harlan Ford DO Work Phone: [facility] 12-21-2014 pneumococcal conjuga te vaccine, 13 valent Harlan Ford DO Work Phone: [facility] 05-28-2014 influenza, seasonal, injectable Harlan Ford DO Work Phone: [facility] 04-16-2013 influenza virus vacc ine, unspecified formulation Harlan Ford DO Work Phone: [facility] 05-05-2012 zoster vaccine, live Harlan Ford DO Work Phone: [facility] 04-17-2011 influenza virus vacc ine, unspecified formulation Harlan Ford DO Work Phone: [facility] 04-05-2010 influenza virus vacc ine, unspecified formulation Harlan Ford DO Work Phone: [facility] Work Phone: 03-30-2009 influenza virus vacc ine, unspecified formulation Harlan Ford DO Work Phone: [facility] 05-14-2008 influenza virus vacc ine, unspecified formulation Harlan Ford DO Work Phone: [facility] Work Phone: 04-29-2007 influenza virus vacc ine, unspecified formulation Harlan Ford DO Work Phone: [facility] 04-29-2007 tetanus and diphther ia toxoids, adsorbed, preservative free, for adult use (2 Lf of tetanus toxoid and 2 Lf of diphtheria toxoid) Harlan Ford DO Work Phone: [facility] 12-05-2006 pneumococcal polysaccharide vaccine, 23 valent Harlan Ford DO Work Phone: [facility] Work Phone: Payers Date Payer Category Payer Self-pay 2015 Private Health Insurance HUMANA HUMANA MEDICARE SUPPLEMENT [id number] 2015-Present [phone] [address] [address] [place] [address] Indemnity [id number] 2015 Private Health Insurance [id number] 2015 Private Health Insurance [id number] 2011 Medicare MEDICARE MEDICAR E A AND B [id number] 2011-Present [phone] [address] [address] [place] [address] Medicare [id number] 2011 Medicare [id number]. [id number]. [id number] 2011 Medicare [id number] Unknown MED [facility] [place] PERS [id number] Unknown [id number] 2.16.840.1.627021.3.579.2. 462 Unknown [id number] 2.16.840.1.185015.3.579.2. 462 Unknown [id number] 2.16.840.1.751125.3.579.2. 462 Unknown [id number] 2.16.840.1.473062.3.579.2. 462 Unknown [id number] 2.16.840.1.650424.3.579.2. 462 Unknown [id number] 2..840.1.989650.3.579.2. 462 Unknown [id number] 2.16.840.1.242582.3.579.2. 462 Unknown [id number] 2.840.1.712687.3.579.2. 462 Unknown [id number] 2.840.1.780903.3.579.2. 462 Unknown [id number] 2.840.1.080669.3.579.2. 462 Unknown [id number] 2.840.1.408611.3.579.2. 462 Unknown [id number] 2.840.1.636106.3.579.2. 462 Unknown [id number] 2.840.1.663956.3.579.2. 462 Unknown [id number] 2.840.1.691293.3.579.2. 462 Unknown [id number] 2.840.1.112166.3.579.2. 462 Unknown [id number] 2.840.1.831444.3.579.2. 462 Unknown [id number] 2.840.1.547717.3.579.2. 462 Unknown [id number] .840.1.006877.3.579.2. 462 Unknown [id number] 2.840.1.495190.3.579.2. 462 Unknown [id number] 2.840.1.584835.3.579.2. 462 Unknown [id number] 2.840.1.610403.3.579.2. 462 Unknown [id number] 2.840.1.454265.3.579.2. 462 Unknown [id number] 2.840.1.128646.3.579.2. 462 Unknown [id number] 2.16.840.1.102969.3.579.2. 462 Social History Date Type Detail Facility Start: 08-18-2021 End: 01-13-2025 Never smoked tobacco (finding) [facility] Start: 1945 Sex Assigned At Male A [facility] Start: 10-31-2021 End: 09-15-2024 Alcohol intake Current drinker of alcohol (finding) [facility] Start: 05-17-2020 History SDOH Alcohol Frequency 3 [facility] Start: 04-11-2020 History SDOH Alcohol Comment beer [facility] Start: 1945 Sex Assigned At Not on file C [facility] Start: 10-21-2021 End: 01-31-2022 Exposure to SARS-CoV-2 (event) Not sure [facility] Start: 08-08-2022 Tobacco use and exposure Smokeless tobacco non-user [facility] Work Phone: Start: 09-06-2022 End: 07-10-2023 Tobacco smoking status NHIS Unknown if ever smoked [facility] Start: 11-07-2022 End: 01-10-2023 History of Social function [facility] Work Phone: Start: 11-07-2022 End: 01-10-2023 Tobacco use panel [facility] Work Phone: Adult Depression Screening Assessment 0 [facility] Work Phone: How often to you hav e a drink containing alcohol? 2-4 times a month [facility] Start: 09-23-2024 End: 10-15-2024 Sex Male (finding) [facility] How many standard drinks containing alcohol do you have on a typical day? 3 or 4 [facility] How often do you hav e 6 or more drinks on 1 occasion? Never [facility] Medical Equipment Procedure Code Equipment Code Equipment Origin al Text Equipment Identifier Dates Endarterectomy, carotid ([id number]) Cardiovascular patch, animal-derived [id number] FDA Start: 09-19-2022 Endarterectomy, carotid Collagen haemostatic agent, non-antimicrobial ()[id number] FDA Start: 09-19-2022 Endarterectomy, carotid Ligation clip, metallic ()[id number] FDA Start: 09-19-2022 Endarterectomy, carotid Ligation clip, metallic ()[id number] FDA Start: 09-19-2022 Endarterectomy, carotid Ligation clip, metallic ()[id number] FDA Start: 09-19-2022 [id number], [id number], [id number], [id number] Start: 07-13-2016 End: 06-10-2023 Comment on above: [...] 12/23/19 25 10:23 AM Mandy West LPN [facility] 01-25-2023 Functional status Ambulates [facility] Work Phone: 09-20-2022 Functional status Dangle Feet;Chair [facility] Work Phone: 12-21-2014 Are you deaf, or do you have serious difficulty hearing No 12/21/2014 10:02 AM Teressa Vargas, RN No [facility] 12-21-2014 Are you blind, or do you have serious difficulty seeing, even when wearing glasses No 12/21/2014 10:02 AM Teressa Vargas, MATEO No [facility] 12-21-2014 Do you have serious difficulty walking or climbing stairs No 12/21/2014 10:02 AM Teressa Vargas RN No [facility] 12-21-2014 Do you have difficul ty dressing or bathing No 12/21/2014 10:02 AM Teressa Vargas RN No [facility] 12-21-2014 Because of a physica l, mental, or emotional condition, do you have difficulty doing errands alone such as visiting a physician's office or shopping No 12/21/2014 10:02 AM Teressa Vargas RN No [facility] Mental Status Date Assessment Result Facility 01-25-2023 Cognitive function Voice/Name [facility] Work Phone: 01-24-2023 Cognitive function Level Of Cons ciousness Awake;Alert;Appropriate;Fol lows Commands [facility] Work Phone: 12-16-2022 Cognitive function Level Of Cons ciousness Awake;Alert;Appropriate [facility] Work Phone: 09-20-2022 Cognitive function Voice/Name [facility] Work Phone: 09-06-2022 Cognitive function Voice/Name [facility] Work Phone: 12-21-2014 Because of a physica l, mental, or emotional condition, do you have serious difficulty concentrating, remembering, or making decisions No 12/21/2014 10:02 AM EDT Teressa Mathias RN No [facility] Clinical Notes 11-19-2018 to 01-27-2025 Harlan Ford, DO - 12/23/2024 7:12 AM Harlan Webb, DO - 12/23/2024 7:06 AM EDT Note Date & Type Note Facility 01-27-2025 Note [facility] Medical Records Department [address] [place] [address] History Physical Exam 01/27/25 1216 MR#: [id number] Acct: [id number] Name: LARA TAPIA Rep #: [id number] : 1945 79 From: Juan Campbell MD PCP: Dr. Harlan Ford, DO Status:[facility] Location: [place] [address]- History and Physical Date of Admission: 01/27/25 Date of Service: 12/23/24 MR#: [id number] Acct: [id number] Name: LARA TAPIA Rep #: [id number] : 1945 Provider: Dr. 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 [facility] 12-23-2024 Note HNO ID: [id number] Author: HARLAN FORD, DO Service: ? Author [...] - has been seen by speicalist at [facility]- unsure next steps will d/w speciliast this [...] was 6.4% six months ago. - Ordered delpe-yq-zghg HbA1c test to assess current glycemic control. [...] to 29.9 in adult (E66.3) Recording using Met[employer] software for draft documentation of the visit was discussed with the patient/authorized healthcare representative; all questions welcomed and answered. Patient/authorized healthcare representative agreed to proceed [facility] 12-23-2024 History of Present illness Narrative Subjective Lara Tapia is a 78-year-old male with a history of diabetes, presenting for follow-up on recent thyroid ultrasound results. neck mass: - Recent thyroid ultrasound showed a 4 cm cystic structure above the left lobe of the thyroid, with an adjacent lymph node. - has been seen by speicalist at [facility]- unsure next steps will d/w speciliast this [...] was 6.4% six months ago. - Ordered dzcxn-dx-crba HbA1c test to assess current glycemic control. [...] to 29.9 in adult (E66.3) Recording using Met[employer] software for draft documentation of the visit was discussed with the patient/authorized healthcare representative; all questions welcomed and answered. Patient/authorized healthcare representative agreed to proceed Images from the [...] Harlan Ford DO documented in this encounter [facility] 12-23-2024 Note HNO ID: [id number] Author: HARLAN FORD DO Service: ? Author [...] loss. BMI 29.71 kg/(m2) Harlan Ford DO [facility] 12-13-2024 Radiology Diagnostic study note [facility] Imaging Services [address] [place] [address] Head/Neck Soft Tissue MR#: [id number] Acct: [id number] Name: LARA TAPIA Rep #: [id number] : 1945 M 78 From: Amanda Spears MD PCP: Dr. Harlan Ford DO Status: RE G CLI Study:Head/Neck Soft Tissue Date of Exam: 12/11/24 Exam# [id number] Ordering Dr: Kelly Campbell MD PROCEDURE: HEAD/NECK [...] since the prior CT scan. [facility] CC: Dr. Harlan Ford DO; Dr. Juan Campbell MD ~ Top Cager: Signed [facility] 11-27-2024 Radiology Diagnostic study note [facility] Imaging Services [address] [place] [address] Soft Tissue Neck WITH Contrast MR#: [id number] Acct: [id number] Name: LARA TAPIA Rep #: [id number] : 1945 M 78 From: Chris Sparrow MD PCP: Dr. Harlan Ford, DO Status: RE G CLI Study:Soft Tissue Neck WITH Contrast Date of Exam: 11/24/24 Exam# [id number] Ordering Dr: Kelly Campbell MD PROCEDURE: SOFT [...] aspect of the parotid gland. Reading Location: [place] [address] CC: Dr. Harlan Ford DO; Dr. Juan Campbell MD ~ Top Cager: Signed [facility] 10-12-2024 Discharge summary [facility] 10-12-2024 Discharge summary [facility] 10-12-2024 Discharge summary Note Date/Time October 12, 2024 12:15pm [facility] Physical Therapy [facility] [address] [place] [address] / REHABILITATION SERVICES DISCHARGE SUMMARY MR#: [id number] Acct: [id number] Name: LARA TAPIA Rep #: [id number] [...] Goal Met Plan Plan: DC PT to [facility] and indep gym routine. D/C Information Discharge Comments: DC PT to indep gym routine d/c sentence: If there are questions or concerns regarding this patient's physical therapy, please feel free to call me at [phone]. Thank you for the referral of thispatient. Sincerely, NATALIE England Balance/Gait/Functional tests Balance/Special Test Scores Functional Gait Assessment Score: 7 % Disability: 76.6700 CATSIB Score (Max score 120 seconds): 82 Lower Extremity Functional Score: 38 Quick DASH Score: 34.0900 Improvement % Improvement: 50 <Electronically signed by Thao Aguero MPT> 10/12/24 1111 CC: DPEliel Cee; Dr. Harlan Ford, DO ~ Signed [facility] Work Phone: 1(368) 824-445804-07-2025 Discharge summary Author Thao Aguero [facility] Note Date/Time October 12, 2024 11:1 2am [facility] Physical Therapy [facility] [address] [place] [address] [address] [place] [address] / REHABILITATION SERVICES DISCHARGE SUMMARY MR#: [id number] Acct: [id number] Name: LARA TAPIA Rep #: [id number] : 1945 78 From: Thao Ireland Referring [...] Cee; Dr. Harlan Ford DO ~ Signed [facility] Work Phone: 1(763) 496-762904-05-2025 Radiology Diagnostic study note [facility] Imaging Services [address] [place], [place] [address] Thyroid MR#: [id number] Acct: [id number] Name: LARA TAPIA Rep #: [id number] : 1945 M 78 From: Laureen Burciaga MD PCP: Dr. Harlan Ford DO Status: RE G CLI Study:Thyroid Date of Exam: 10/09/24 Exam# [id number] Ordering Dr: Johan Morris PROCEDURE: THYROID 10/09/2024 [...] evaluation if not recently performed. Reading Location: [facility] CC: SIDDHARTHA Ulloa; Dr. Harlan Ford DO ~ Top Cager: Signed [facility]04-01-2025 Evaluation note* Diagnosis Onset Date Resolution Status Admit Date Carotid artery disease acute Ap 2024 12:43pm PAD (peripheral artery disease) acut e October 06, 2024 12:43pm S/P carotid endarterectomy acute October 06, 2024 12:43pm Thyroid nodule noneactive October 06, 2024 12:43pm [facility] Work Phone: 1(465) 126-323004-01-2025 Evaluation note* Diagnosis Onset Date Resolution Status Admit Date Carotid artery disease acute Ap 2024 12:43pm PAD (peripheral artery disease) acut e October 06, 2024 12:43pm S/P carotid endarterectomy acute October 06, 2024 12:43pm Thyroid nodule noneactive October 06, 2024 12:43pm Mass of left side of neck acute December 23, 2024 8:20am [facility] Work Phone: 1(550) 302-115704-01-2025 Telephone encounter Note* Telephone Encounter - Rhianna [...] 12/22/2024 Please advise. Thank you. Rhianna Helton. [facility]04-01-2025 Miscellaneous Notes* Telephone Encounter - Rhianna [...] patient, left a voicemail. documented in this encounterOhio [facility] Hospital04-01-2025 Telephone encounter Note * Telephone Encounter - Rhianna Helton - 10/06/2024 11:21 AM EDT Patient called for a refill, but phone lines went down. Attempted to reach the patient, left a voicemail. [facility]03-11-2025 NoteHNO ID: [id number] Author: HARLAN FORD, DO Service: ? Author [...] defect after right carotid artery stenosis, seeing [employer] [facility] Consultant and vascular specialist, no new symptoms. Mr. [...] daily. Clobetasol Propionate (TEMOVATE) (more content not included)...[facility]03-11-2025 History of Present illness Narrative* Harlan Ford, [...] defect after right carotid artery stenosis, seeing [employer] [facility] Consultant and vascular specialist, no new symptoms. Mr. [...] face, eyes, eyelids, and deep fold areas. Jvrgnvxbjqr-Mqoqdodds-Ajf C-Mn (GLUCOSAMINE CHONDROITIN MAXSTR) 500-400 mg ORAL [...] with the plan. Harlan Ford DO [address] [place] [address] documented in this encounterOhio Valley [facility] Hospital03-06-2025 Telephone encounter Note * Telephone Encounter - Girard Joanna Rodriguez - 09/10/2024 4:20 PM EST [...] times a day with meals. Joanna Cheung [facility] September 10, 2024 4:21 PM [facility]03-06-2025 Miscellaneous Notes* Telephone Encounter - Joanna [...] times a day with meals. Joanna Cheung [facility] September 10, 2024 4:21 PM documented in this encounterOhio Valley [facility] Hospital02-28-2025 Telephone encounter Note * Telephone Encounter [...] Jennifer Daniels September 04, 2024 2:35 PM [facility]02-28-2025 Miscellaneous Notes* Telephone Encounter - Jennifer [...] 04, 2024 2:35 PM documented in this encounterOhio Valley Surgical Hospital02-26-2025 NoteHNO ID: [id number] Author: SUZAN ESCALERA MA Service: ? Author Type: Patient Escort Type: Progress Notes Filed: 09/02/2024 11:45 Note Text: Ambulatory Ear Lavage Pre-treatment: Warm water Treatment: Both ears Equipment and Irrigation solution and Volume used: Single use syringe with single use irrigation tip Water Return flow appearance: Brown Yellow Patient tolerated procedure: yes Tympanic membrane assessment: Tympanic membrane assessed by LIP pre and post procedure Suzan Escalera [facility]02-26-2025 History of Present illness Narrative* Suzan [...] face, eyes, eyelids, and deep fold areas. Rvcfyqtbgkv-Zfwxxiodl-Qzh C-Mn (GLUCOSAMINE CHONDROITIN MAXSTR) 500-400 mg ORAL [...] LAVAGE/IRRIGATION Viral Erickson MD documented in this encounterOhio Valley Surgical Hospital02-26-2025 NoteHNO ID: [id number] Author: VIRAL ERICKSON MD Service: ? Author [...] mg all other days blood sugar diagnostic (HiredTOUCH ULTRA TEST) test strip Test blood sugars [...] face, eyes, eyelids, and deep fold areas. Cybknpgpxwb-Hjvjrcqui-Fba C-Mn (GLUCOSAMINE CHONDROITIN MAXSTR) 500-400 mg ORAL [...] staff - AMBULATORY EAR LAVAGE/IRRIGATION Viral Erickson, [facility]01-22-2025 NoteHNO ID: [id number] Author: HARLAN FORD, DO Service: ? Author [...] FOOD. Blood-Glucose Meter monitoring (more content not included)...[facility]01-22-2025 History of Present illness Narrative* Harlan Ford, [...] elbow and right hand. Was seen in [place] 07/23 for this and had xray's of [...] face, eyes, eyelids, and deep fold areas. Vspghttrtth-Gtiezfrof-Iuy C-Mn (GLUCOSAMINE CHONDROITIN MAXSTR) 500-400 mg ORAL [...] agreed with the plan. Harlan Ford DO [address] [place] [address] documented in this encounterOhio Valley Surgical Hospital01-22-2025 Instructions* Patient Instructions* Harlan Ford DO - 07/29/2024 12:[address] López about Aorta vascular testing? Iliac and leg/PVR BRANDT etc arterial testing? Recheck of carotid artery testing? Need for use of moist heating pad for 20 minutes twice a day on anterior front of shoulder and backof shoulder/neck as well. Then do stretches after this. Start PHYSICAL THERAPY at [facility] for the arm/shoulder and neck pain documented in this encounterOhio Valley Surgical Hospital01-16-2025 History of Present illness Narrative* Yan [...] PATIENT PRESENTS WITH AN IMPLANTABLE OR ATTACHED TEMPERATURE LOGGING OPERATOR: No RADIOLOGY DEPARTMENT: General X-ray: Exam(s) Completed: Upper Extremity X- Ray(s): Shoulder, AP / TRUE AP right , Elbow, right , and Hand, right PERIPHERAL IV DATA: Not applicable SIGNED BY: RT Percy(Lucille) July 23, 2024 3:35 PM documented in this encounterOhio Valley Surgical Hospital01-16-2025 NoteHNO ID: [id number] Author: YAN LOMELI RT(R) Service: ? Author Type: Ticker Installer Type: Progress Notes Filed: 07/23/2024 15:48 Note [...] PATIENT PRESENTS WITH AN IMPLANTABLE OR ATTACHED TEMPERATURE LOGGING OPERATOR: No RADIOLOGY DEPARTMENT: General X-ray: Exam(s) Completed: Upper Extremity X-Ray(s): Shoulder, AP / TRUE AP right , Elbow, right , and Hand, right PERIPHERAL IV DATA: Not applicable SIGNED BY: RT Percy(R) July 23, 2024 3:[facility] NoteHNO ID: [id number] Author: KALPANA POE PA-C Service: ? Author Type: Physician Leather Toggler Type: Progress Notes Filed: 07/23/2024 16:32 Note Text: This note was created using Turbulenzriter. Subjective Lara Tapia is a 78 year [...] Patient is right-hand dominant. Review of the [facility] medical records shows that the patient received [...] M25.511, G89.29 (primary diagnosis) - XR SHOULDER APGSBVT5H AP/TRUE AP RIGHT - LIDOCAINE 5 % TOPICAL PATCH 2. Right elbow pain - ICD9: 719.42, ICD10: M25.521 - XR ELBOW SPECIAL VIEWS AP/LAT/OTHER RIGHT 3. Right hand pain - ICD9: 729.5, ICD10: M79.641 - XR HAND GENERAL 3V (more content not included)...[facility] 07-23-2024 History of Present illness Narrative* Kalpana Poe PA-C - 07/23/2024 3:25 PM EST This note was created using Turbulenzriter. Subjective Lara Tapia is a 78 year [...] Patient is right-hand dominant. Review of the [facility] medical records shows that the patient received [...] M25.511, G89.29 (primary diagnosis) - XR SHOULDER FVSDGSC9T AP/TRUE AP RIGHT - LIDOCAINE 5 % [...] M50.30 Kalpana Poe PA-C documented in this encounterOhio Valley Surgical Hospital12-09-2024 NoteHNO ID: [id number] Author: HARLAN FORD, DO Service: ? Author [...] mouth once daily. warfarin (more content not included)...[facility]12-09-2024 History of Present illness Narrative* Harlan Ford, [...] face, eyes, eyelids, and deep fold areas. Jkbqaaktkde-Plujznxex-Jzp C-Mn (GLUCOSAMINE CHONDROITIN MAXSTR) 500-400 mg ORAL [...] agreed with the plan. Harlan Ford DO [address] [place] [address] documented in this encounterOhio Valley Surgical Hospital12-09-2024 Instructions* Patient Instructions* Harlan Ford DO - 06/15/2024 9:44 AM EST Epsom salt soaks for hands- 1/2 cup of epsom salts Voltaren and the biofreeze can be mixed together and rubbed on a painful joint. Thumb spica splint on hand as needed for thumb pain documented in this encounterOhio Valley Surgical Hospital12-04-2024 Telephone encounter Note * Telephone Encounter - Ida Gan APRN.JIGNA - 06/10/2024 9:12 AM EST Orders placed. Thank you, Ida Gan APRN.SHOP FOREMAN [facility]12-04-2024 Miscellaneous Notes* Telephone Encounter - Ida Gan APRN.JIGNA - 06/10/2024 9:12 AM EST Orders placed. Thank you, Ida Gan APRN.SHOP FOREMAN * Telephone Encounter - Mandy Monroy LPN - 06/10/2024 9:06 AM EST Pt. here for lab work needs orders filed. documented in this encounterOhio Valley Surgical Hospital12-04-2024 Telephone encounter Note * Telephone Encounter - Mandy Monroy LPN - 06/10/2024 9:06 AM EST Pt. here for lab work needs orders filed. [facility]10-14-2024 Telephone encounter Note* Telephone Encounter - [...] Corrigan MA April 20, 2024 11:18 AM [facility]10-14-2024 Miscellaneous Notes* Telephone Encounter - Kathi [...] 2024 11:18 AM * Telephone Encounter - Girard Joanna Rodriguez - 04/20/2024 11:11 AM EDT [...] FOR FOOT PAIN, WITH FOOD. Joanna Cheung [facility] April 20, 2024 11:12 AM documented in this encounterOhio Valley Surgical Hospital10-14-2024 Telephone encounter Note * Telephone Encounter - Girard Joanna Rodriguez - 04/20/2024 11:11 AM EDT [...] Joanna Rodriguez April 20, 2024 11:12 AM [facility]09-06-2024 Telephone encounter Note* Telephone Encounter - Josie Caballero MA - 03/13/2024 6:18 PM EDT Patient notified of results, verbalized understanding of instructions given. Josie Caballero MA [facility]09-06-2024 Miscellaneous Notes* Telephone Encounter - Josie [...] to follow-up with dermatology. documented in this encounterOhio Valley Surgical Hospital09-06-2024 Telephone encounter Note * Telephone Encounter - Matheus Lagos PA - 03/13/2024 6:08 PM EDT Please contact patient and let him know his swab came back negative for herpes. It showed some mixed oral horace, but no obvious sign of infection. He needs to follow-up with dermatology. [facility] Work Phone: 1(203) 382-600609-04-2024 NoteHNO ID: [id number] Author: TYRELL CORRIGAN APRN.SHOP FOREMAN Service: ? Author Type: Nurse Practitioner Type: Progress Notes Filed: 03/11/2024 13:53 Note Text: Subjective March 04 The history is provided by the patient. No airborne missions systems was used. ROS Objective Physical Exam Constitutional: Appearance: Normal appearance. HENT: Mouth/Throat: Pulmonary: Effort: Pulmonary effort is normal. Neurological: Mental Status: He is alert.[facility]09-04-2024 History of Present illness Narrative* Tyrell Corrigan APRN.JIGNA - 03/11/2024 1:44 PM EDT Images from the original note were not included. Subjective March 04 The history is provided by the patient. No airborne missions systems was used. ROS Objective Physical Exam Constitutional: [...] face, eyes, eyelids, and deep fold areas. Zqhgriaplwh-Ikikjjtle-Zbk C-Mn (GLUCOSAMINE CHONDROITIN MAXSTR) 500-400 mg ORAL [...] plan. Tyrell Corrigan APRN.JIGNA documented in this encounterOhio Valley Surgical Hospital09-04-2024 NoteHNO ID: [id number] Author: TYRELL CORRIGAN APRN.CNP Service: ? Author [...] Test blood sugar(s) 1 (more content not included)...[facility]08-28-2024 Telephone encounter Note* Telephone Encounter - Wilda Cheek MA - 03/04/2024 5:23 PM EDT Pt informed, verbalized understanding Wilda Cheek MA [facility]08-28-2024 Miscellaneous Notes* Telephone Encounter - Wilda Cheek MA - 03/04/2024 5:23 PM EDT Pt informed, verbalized understanding Wilda Cheek MA * Telephone Encounter - Jose Osborne APRN.CNP - 03/04/2024 5:11 PM EDT Please let him know that we received his lab results. They are all in normal target range, no concerns. Jose Osborne APRN.CNP documented in this encounterOhio Valley Surgical Hospital08-28-2024 Telephone encounter Note * Telephone Encounter - Jose Osborne APRN.CNP - 03/04/2024 5:11 PM EDT Please let him know that we received his lab results. They are all in normal target range, no concerns. Jose Osborne APRN.CNP [facility]08-28-2024 Telephone encounter Note* Telephone Encounter - [...] Please advise. Thank you. Mandy Monroy LPN. [facility]08-28-2024 Miscellaneous Notes* Telephone Encounter - Mandy [...] you. Mandy Monroy LPN. documented in this encounterOhio Valley Surgical Hospital08-27-2024 NoteHNO ID: [id number] Author: HARLAN FORD, DO Service: ? Author [...] WITH FOOD. glimepiride (A (more content not included)...[facility] 03-03-2024 History of Present illness Narrative* Harlan [...] face, eyes, eyelids, and deep fold areas. Tnhncenswnw-Peerxiwft-Wuo C-Mn (GLUCOSAMINE CHONDROITIN MAXSTR) 500-400 mg ORAL [...] agreed with the plan. Harlan Ford DO [address] [place] [address] documented in this encounterOhio Valley Surgical Hospital08-08-2024 Telephone encounter Note * Telephone Encounter - Wilda Cheek MA - 02/13/2024 2:38 PM EDT Faxed by Adali Cheek MA [facility]08-08-2024 Miscellaneous Notes* Telephone Encounter - Wilda [...] center and she will refax form for CASTER OPERATOR to sign since DO is out until [...] back. Fax papers back to FAX #: [phone]. Thank you. documented in this encounterOhio Valley Surgical Hospital08-08-2024 Telephone encounter Note * Telephone Encounter - Ida Gan APRN.CNP - 02/13/2024 2:18 PM EDT This is completed. Ida Gan APRN.JIGNA [facility]08-08-2024 Telephone encounter Note* Telephone Encounter - Wilda Cheek MA - 02/13/2024 1:39 PM EDT Form received and placed in AD inbox Wilda Cheek MA [facility]08-08-2024 Telephone encounter Note* Telephone Encounter - Wilda Cheek MA - 02/13/2024 10:57 AM EDT [facility] and she will refax form for CASTER OPERATOR to sign since DO is out until next week. Wilda Cheek MA [facility]08-07-2024 Telephone encounter Note* Telephone Encounter - Ida Gan APRN.CNP - 02/12/2024 4:53 PM EDT I do not see this paperwork. I am willing to sign if able. Thank you, Ida Gan APRN.JIGNA [facility]08-06-2024 Telephone encounter Note* Telephone Encounter - [...] back. Fax papers back to FAX #: [phone]. Thank you. [facility]07-25-2024 Telephone encounter Note* Telephone Encounter - Mary Rosado LPN - 01/30/2024 10:40 AM EDT [facility] calling asking for copy of last office visit to be faxed to [phone]. Printed note from 11/2023 and faxed. She is also waiting for form to be signed for his diabetic shoes and be returned to her. [facility]07-25-2024 Miscellaneous Notes* Telephone Encounter - Mary Rosado LPN - 01/30/2024 10:40 AM EDT [facility] calling asking for copy of last office visit to be faxed to [phone]. Printed note from 11/2023 and faxed. She is also waiting for form to be signed for his diabetic shoes and be returned to her. documented in this encounterOhio Valley Surgical Hospital07-24-2024 Telephone encounter Note * Telephone Encounter [...] Mandy Rodriguez January 29, 2024 11:27 AM [facility]07-24-2024 Miscellaneous Notes* Telephone Encounter - Mandy [...] 29, 2024 11:27 AM documented in this encounterOhio Valley Surgical Hospital05-21-2024 History of Present illness Narrative* Harlan [...] neuropathy, onychomycosis, needs referral to have new Employment Program Representative referral. Mr. Tapia has past history of [...] a day with meals. blood sugar diagnostic ([facility] ULTRA TEST) test strip Test blood sugars [...] face, eyes, eyelids, and deep fold areas. 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 PAD (peripheral artery disease) ([facility]) - ICD9: 443.9, ICD10: I73.9 Stable, chronic 6. Thrombocytopenia ([facility]) - ICD9: 287.5, ICD10: D69.6 stable 7. [...] - ICD9: 427.31, ICD10: I48.91 F/u with Fish Tender, no new symptoms 10. 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 11. Actinic keratosis - [...] with the plan. Harlan Ford DO [address] [place] [address] documented in this encounterOhio Valley Surgical Hospital05-21-2024 Instructions* Patient Instructions* Harlan Ford DO - 11/26/2023 10:23 AM EDT Address: [address] [place], [place] [id number] Open ? Closes 4:30?PM Employment Program Representative office documented in this encounterOhio Valley Surgical Hospital04-12-2024 Miscellaneous Notes* Telephone Encounter - Fannie [...] Thank you. Fannie Kent. documented in this encounterOhio Valley Surgical Hospital04-10-2024 Miscellaneous Notes* Telephone Encounter - Adali [...] Thank you. Rhianna Helton. documented in this encounterOhio Valley Surgical Hospital04-09-2024 Miscellaneous Notes* Telephone Encounter - Sylvain [...] you. Sylvain Rodriguez LPN. documented in this encounterOhio Valley Surgical Hospital02-21-2024 History of Present illness Narrative* Harlan [...] Comments Cough Current Meds: blood sugar diagnostic ([employer] ULTRA TEST) test strip Test blood sugars [...] face, eyes, eyelids, and deep fold areas. Hemfmarncuc-Fdrwqayjp-Gtp C-Mn (GLUCOSAMINE CHONDROITIN MAXSTR) 500-400 mg ORAL [...] agreed with the plan. Harlan Ford DO [address] [place] [address] documented in this encounterOhio Valley Surgical Hospital01-12-2024 Telephone encounter Note * Telephone Encounter - Harlan Ford DO - 07/19/2023 5:08 PM EST See other TE, this is a duplicate Harlan Ford DO [facility]01-12-2024 Miscellaneous Notes* Telephone Encounter - Harlan [...] Yesterday (1:42 PM) AB Torri CARL with [facility] called in and reports Pt [...] directly to her. Note documented in this encounterOhio Valley Surgical Hospital01-10-2024 Telephone encounter Note * Telephone Encounter [...] Yesterday (1:42 PM) AB Torri CARL with [facility] called in and reports Pt [...] back, extension goes directly to her. Note [facility]12-04-2023 Miscellaneous Notes* Telephone Encounter - Kathi [...] notify patient. 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 Lhmgsdnzhvj-Dldmlolje-Yrq C-Mn (GLUCOSAMINE CHONDROITIN MAXSTR) 500-400 mg ORAL [...] - ICD9: 427.31, ICD10: I48.91 F/u with cable assembler and swager, no recent symptoms 6. Acute renal insufficiency [...] 287.5, ICD10: D69.6 F/u with opinion by Gluer Machine Operator to determine if any other testing is needed. Harlan Ford DO To ER if develops chest pain, shortness of breath, or severe worsening of symptoms. Discussed risks, benefits, alternatives, and potential side effects of medications. Patient expressed understanding and agreed with the plan. Harlan Ford DO [address] [place] [address] documented in this encounterOhio Valley Surgical Hospital09-15-2023 Miscellaneous Notes* Telephone Encounter - Rhianna [...] notify patient. Rhianna Helton documented in this encounterOhio Valley Surgical Hospital08-17-2023 Miscellaneous Notes* Telephone Encounter - Guille [...] Thank you. Erika Smith documented in this encounterOhio Valley Surgical Hospital08-09-2023 History of Present illness Narrative* Harlan Ford DO - 02/13/2023 9:21 PM EDT Patient presents with: F/U 3 Month HPI: Lara Tapia is a 77 year old male who presents to the office today for review of health conditions. Concerns today: Overall is feeling better. Recently at [facility] for acute diverticulitis, UTI, acute renal insufficiency, [...] just had a follow up outpatient with [facility] and will be wearing a registered nurse cardiac for further evaluation. He is asymptomatic. Mr. [...] face, eyes, eyelids, and deep fold areas. Tdwzyzwfqer-Ohfkpmdfs-Doq C-Mn (GLUCOSAMINE CHONDROITIN MAXSTR) 500-400 mg ORAL [...] had any recent episodes. Was seen by Fish Tender and will be having registered nurse cardiac placed for evaluation further. 3. Acute diverticulitis [...] with the plan. Harlan Ford DO [address] [place] [address] documented in this encounterOhio Valley Surgical Hospital07-20-2023 Discharge summary Author Parvez Thornton [facility] January 24, 2023 3:47pm Note Date/Time January 24, 2023 1:27 pm [facility] Medical Records Department [address] [place] [address] Emergency Department Summary 01/24/23 MR#: [id number] Acct: [id number] Name: LARA TAPIA Rep #:[id number] : 1945 77 From: Parvez Armas PCP: Dr. Harlan Ford DO Status:AD M [facility] Location: [place] [address] HPI History of Present Illness Chief Complaint: [...] with a carotid endarterectomy performed by Dr. Romero. She is on baby aspirin since then. Hypertension, diabetes, hyperlipidemia history. No cardiac dysrhythmia has no coronary history. Prior similar symptoms: No PFSH [facility] Medical History Diabetes mellitus Easy bruising [...] BID DIABETES 09/06/22 [History Last Taken 01/23/23] mlwrmehypei-sqgjbrram-nmi C-Mn 500 mg-400 mg capsule (Glucosamine Chondroitin [...] of metoprolol. Eliquis was started due to [id number] score of a 7. Work-up also noted [...] clinician: Hospitalist This note was generated with FXTrip dictation software. It may contain incorrectwords, spelling, [...] 88.6 H Lymph % (Auto) 2.4 L [place] % (Auto) 8.5 Eos % (Auto) 0.0 [...] Clarity Cloudy Urine pH 5.0 Ur Specific [place] 1.020 Urine Protein 100 H Urine Glucose [...] 14:18 EDT Reading Location ID and State: [facility] / [place] Tel , Service support , Discharge Plan Triage Chief Complaint: Weakness ED Provider: Parvez Thornton Dx/Rx/DC Orders Clinical Impression: Atrial fibrillation, currently in sinus rhythm, Acute renal insufficiency, Weakness, Acute UTI Primary Care Provider: Harlan Ford Disposition Disposition: Acute Care Hospital [facility] What to do if you have Problems For any increased pain, shortness of breath, bleeding, nausea or vomiting, chestpain, or any unexpected problems, contact your Primary Care Provider. Call [facility] ([phone]) or report to the closest Emergency Room. Call 911 if necessary. 01/24/23 1547 <Electronically signed by Parvez Armas> Cosigner Signature (if applicable): CC: Dr. Harlan Ford DO ~ Signed [facility] Work Phone: 1(439) 281-208507-11-2023 Miscellaneous Notes* Telephone Encounter - Keri Kaur [...] and advise. Yessi Dahl documented in this encounterOhio Valley Surgical Hospital05-31-2023 Miscellaneous Notes* Telephone Encounter - Mandy Rodriguez - 12/05/2022 11:14 AM EDT Patient said this medication (simvastatin) was stopped when he was in [facility] in September. Wants a refill,but [facility] told him the doctor cancelled it. Please review and advise patient at [phone] if he is supposed to be taking [...] to the pharmacy. Please call patient at: [phone] Mandy Rodriguez documented in this encounterOhio Valley Surgical Hospital05-17-2023 Miscellaneous Notes* Telephone Encounter - Romana Carson - 11/21/2022 11:05 AM EDT Please Call PT when signed. [phone]. LVM if needed. Romana RODRIGUEZ * Telephone Encounter - Mary Rosado LPN - 11/14/2022 8:53 AM EDT Patient calling he had forgotten to ask at his appt yesterday, he needs renewal handicap placard rx. Patient has 2 of them. Patient would like to picker tender helper when ready. Please advise documented in this encounterOhio Valley Surgical Hospital05-15-2023 History of Present illness Narrative* Ayaka [...] 19, 2022 4:06 PM documented in this encounterOhio Valley Surgical Hospital05-10-2023 History of Present illness Narrative* Harlan [...] face, eyes, eyelids, and deep fold areas. Bcshzkbcohq-Mxzfkgkyu-Gkj C-Mn (GLUCOSAMINE CHONDROITIN MAXSTR) 500-400 mg ORAL [...] polyneuropathy, without long-term current use of insulin ([facility]) - ICD9: 250.60, 357.2, ICD10: E11.42 (primary [...] RND UR 2. PAD (peripheral artery disease) ([facility]) - ICD9: 443.9, ICD10: I73.9 F/u with Employment Program Representative for toenail trimming, f/u with Dr. Veliz [...] ICD9: 287.5, ICD10: D69.6 Stable, has seen mold shifter in the last 3 years Harlan Ford DO To ER if develops chest pain, shortness of breath, or severe worsening of symptoms. Discussed risks, benefits, alternatives, and potential side effects of medications. Patient expressed understanding and agreed with the plan. Harlan Ford DO [address] [place] [address] documented in this encounterOhio Valley Surgical Hospital05-09-2023 Instructions* Patient Instructions* Harlan Ford DO - 11/13/2022 4:[address] Cristina Maxwell [phone] Employment Program Representative - call their office for appt to keep your toenails trimmed documented in this encounterOhio Valley Surgical Hospital05-04-2023 Miscellaneous Notes* Telephone Encounter - Wilda [...] before appt on 11/13/2022 documented in this encounterOhio Valley Surgical Hospital04-05-2023 Instructions* Patient Instructions* Radha Guzman - 10/10/2022 10:36 AM EDT Check with the surgeon on if you are to continue plavix or not and if the simvastatin dose youre onis sufficient Have the office send us notes following your appointment documented in this encounterOhio Valley Surgical Hospital04-05-2023 History of Present illness Narrative* Jose [...] 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 He said it isn't physically exerting. Past [...] face, eyes, eyelids, and deep fold areas. Houwiwoedgm-Izfyzztmh-Iuo C-Mn (GLUCOSAMINE CHONDROITIN MAXSTR) 500-400 mg ORAL [...] work. Jose Osborne APRN.CNP documented in this encounterOhio Valley Surgical Hospital03-16-[address] López [facility] September 20, 2022 10:00am Note Date/Time September 20, 2022 10: 00am [facility] Medical Records Department [address] [place] [address] Progress Note - Surgery 09/20/22 0958 MR#: [id number] Acct: [id number] Name: LARA TAPIA Rep #:[id number] : [...] 86.7 H, Lymph % (Auto) 7.5 L, [place] % (Auto) 5.2, Eos % (Auto) 0.0, [...] Cosigner Signature (if applicable): CC: ~ Signed [facility] Work Phone: 1(502) 742-823603-16-2023 Procedure [facility] 09-19-2022 History and physical note Author Dr. López [facility] September 19, 2022 11:49am Note Date/Time September 19, 2022 11: 49am [facility] Medical Records Department [address] [place] [address] History & Physical Exam 09/19/22 1146 MR#: [id number] Acct: [id number] Name: LARA TAPIA Rep #:[id number] : [...] mg PO BID 09/06/22 [History Confirmed 09/10/22] gpoowwhdbwu-uxozekesi-cgi C-Mn 500 mg-400 mg capsule (Glucosamine Chondroitin [...] López MD; Dr. Harlan Ford, DO~ Signed [facility] Work Phone: 1(509) 535-894703-09-2023 Miscellaneous Notes* Telephone Encounter - Vianey Dixon Jazmín CALIX - 09/13/2022 3:21 PM EST Natalya with [facility] called and identified pt with name and date of . She requested a copy of pt'slast HgbA1C. faxed to [phone]. Done. Vianey Noyola LPN documented in this encounterOhio Valley Surgical Hospital03-02-[address] Kirkpatrick [facility] September 06, 2022 4:06pm Note Date/Time September 06, 2022 1:03 pm [facility] Medical Records Department [address] [facility] [place] [address] Emergency Department Summary 09/06/22 MR#: [id number] Acct: [id number] Name: LARA TAPIA Rep #:[id number] : [...] He has no other symptoms right now. [facility] Medical History Cholecystectomy planned Diabetes mellitus Hypercholesteremia [...] PO BID 09/06/22 [History Last Taken Unknown] mniuabbxllr-nrqgptjep-dfh C-Mn 500 mg-400 mg capsule (Glucosamine Chondroitin [...] 75.0 H Lymph % (Auto) 12.2 L [place] % (Auto) 10.7 H Eos % (Auto) [...] (Auto) Neut % (Auto) Lymph % (Auto) [place] % (Auto) Eos % (Auto) Baso % [...] Injury Pattern Management Discussion w/another healthcare provider: Vest Maker (stroke neurologist, vascular surgery Dr. López) and Radiologist Stroke Documentation Questions Stroke Team Activated: Yes Was Patient considered for Endovascular Intervention?: No-CTA negative, determined not to be an endovascular candidate IV Thrombolytic Administered: No (timing) Critical Care Time Critical Care Time: Yes Critical care time (excluding procedures): 30-74 minutes (40 min), Including time spent:, Discussing w/Patient &/or Family/Manager Center, Discussing w/Consultants and Performing Direct Patient Care [...] 12.5 mg Capsule 12.5 mg PO DAILY chmrvqiaiic-xzffajkds-ofr C-Mn [Glucosamine Chondroitin MaxStr] 500-400 mg Capsule [...] your Primary Care Provider. Call [facility] ([phone]) or report to the closest Emergency Room. Call 911 if necessary. 09/06/22 1606 <Electronically signed by Jw Kirkpatrick MD> Cosigner Signature (if applicable): CC: Dr. Sony López MD; Dr. Harlan Ford DO; Dr. Porfirio Rees MD ~ Signed [facility] Work Phone: [phone]) 882-131603-01-2023 History of Present illness Narrative* Roshan Ray MD - 09/05/2022 2:31 PM EST Images from the original note were not included. [facility] [place] DEPARTMENT OF VASCULAR SURGERY VASCULAR SURGERY INITIAL CONSULT/ H+P SERVICE DATE: 09/05/2022 SERVICE TIME: 2:31 PM PRIMARY CARE PHYSICIAN: Harlan Ford DO REFERRING PROVIDER: Harlan Ford [address] [facility] [address] Consult requested for an opinion regarding the [...] eyelids, and deep fold areas.60 mL 3 Dvzutbyjvzd-Kvojuregn-Jeo C-Mn (GLUCOSAMINE CHONDROITIN MAXSTR) 500-400 mg ORAL [...] the plan as outlined. documented in this encounterOhio Valley Surgical Hospital02-16-2023 Miscellaneous Notes* Telephone Encounter - Lelia Miller - 08/23/2022 9:02 AM EST Spoke [...] 08/15/22. Suzie Carlisle RN documented in this encounterOhio Valley Surgical Hospital02-07-2023 Miscellaneous Notes* Telephone Encounter - Mandy [...] advise, Huma Cruz RN documented in this encounterOhio Valley Surgical Hospital02-01-2023 History of Present illness Narrative* Harlan [...] face, eyes, eyelids, and deep fold areas. Fnkkfrhyjif-Cumrmxzyg-Lzw C-Mn (GLUCOSAMINE CHONDROITIN MAXSTR) 500-400 mg ORAL [...] ear, actinic keratosis x 1 on left sabianism, actinic keratosis x 1 on right superior [...] loss - Discussed diabetic education issues of care home diabetic complications, hyperglycemic symptoms, diet, medications- side [...] with the plan. Harlan Ford DO [address] [place] [address] documented in this encounterOhio Valley Surgical Hospital08-02-2022 Miscellaneous Notes* Telephone Encounter - Mandy Monroy LPN - 02/06/2022 9:59 AM EDT Pt's informed. Mandy Monroy LPN * Telephone Encounter - Jose Osborne APRN.CNP - 02/05/2022 5:56 PM EDT Please let Lara know that his magnesium levels are low. I'd like him to start taking a daily magnesium supplement of 500-600mg. Jose Osborne APRN.CNP documented in this encounterOhio Valley Surgical Hospital07-27-2022 Instructions* Patient Instructions* Jose Osborne APRN.CNP - 01/31/2022 2:18 PM EDT Make sure you're getting plenty of water. Calf stretches. If this doesn't improve, we can think about physical therapy. You have labs ordered to have completed prior to your appointment in 6 months. documented in this encounterOhio Valley Surgical Hospital07-27-2022 History of Present illness Narrative* Jose [...] by mouth once daily. blood sugar diagnostic ([employer] ULTRA TEST) test strip Test blood sugars [...] face, eyes, eyelids, and deep fold areas. Pqemvrtzeua-Punrgswqi-Ftv C-Mn (GLUCOSAMINE CHONDROITIN MAXSTR) 500-400 mg ORAL [...] BASIC Jose Osborne APRN.CNP documented in this encounterOhio Valley Surgical Hospital06-29-2022 Miscellaneous Notes* Telephone Encounter - Ida Nichole APRN.CNP - 01/03/2022 9:27 AM EDT The following approved medication requests have been transmitted electronically. Signed Prescriptions Disp Refills aspirin 81 mg chewable tablet 30 tablet 5 Sig: Take 1 tablet by mouth once daily. Authorizing Provider: IDA NICHOLE APRN.SHOP FOREMAN * Telephone Encounter - Zuly Friend Pss - 01/02/2022 9:29 AM EDT Patient is asking that Aspirin be called in for him to the [facility] in [place]. documented in this encounterOhio Valley Surgical Hospital06-21-2022 Miscellaneous Notes* Telephone Encounter - Fannie [...] pharmacy. No need to notify patient. Fannie [facility]connorUpper [facility] Systemse documented in this encounterOhio Valley Surgical Hospital04-27-2022 History of Present illness Narrative* Harlan Ford DO - 11/01/2021 7:25 AM EDT Patient presents with: Recheck: medication/routine HPI: Lara Tapia is a 75 year old male who presents to the office today for review of health conditions. Concerns today: S/p left total knee replacement surgery by Dr. Choi at [facility] on 08/29/21. He feels he is [...] daily. Dx: OtherDM Code E11.42 Insulin: No Wqldoltlkbd-Zlwlfspbf-Wty C-Mn (GLUCOSAMINE CHONDROITIN MAXSTR) 500-400 mg ORAL [...] agreed with the plan. Harlan Ford DO [address] [place] [address] documented in this encounterOhio Valley Surgical Hospital04-26-2022 Instructions* Patient Instructions* Harlan Ford DO - 10/31/2021 2:50 PM EDT Muscle roller on legs- check at [facility] or [facility] documented in this encounterOhio Valley Surgical Hospital02-22-2022 Hospital Discharge instructions Patient Education 08/29/2021 10:42:14 Total Knee Replacement, Care After, Qwrw-al-Swhr Total Knee Replacement, Care After This sheet [...] Follow these instructions at home: Medicines Take jxri-cgp-rmtijmk and prescription medicines only as told by [...] keep your pee (urine) pale yellow. ?Take vfkl-ggi-xwasymu or prescription medicines. ?Eat foods that are [...] cannot use soap and water, use hand assembler truck trailer. ?Change your bandage as told by your [...] 09/15/2012 Document Revised: 11/02/2019 Document Reviewed: 02/05/2019 [employer] Patient Education 2020 [employer] 08/29/2021 10:42:13 Nausea and Vomiting, Adult, Kfie-qf-Zocr Nausea and Vomiting, Adult Nausea is feeling [...] fruit juice). ?Low-calorie sports drinks. Eat bland, cted-qd-drkvey foods in small amounts as you are able, such as: ?Bananas. ?Applesauce. ?Rice. ?Low-fat (lean) meats. ?[place]. ?Crackers. Avoid drinking fluids that have a lot of sugar or caffeine in them. This includes energy drinks, sports drinks, and soda. Avoid alcohol. Avoid spicy or fatty foods. General instructions Take guvw-gvh-tkgkrus and prescription medicines only as told by your doctor. Drink enough fluid to keep your pee (urine) pale yellow. Wash your hands often with soap and water. If you cannot use soap and water, use hand assembler truck trailer. Make sure that all people in your [...] too much water in your body. Take nsqc-sou-ugioigj and prescription medicines only as told by [...] 12/10/2008 Document Revised: 10/16/2019 Document Reviewed: 12/02/2018 [employer] Patient Education 2020 [employer] 08/29/2021 10:42:12 Monitored Anesthesia Care, Care [...] before eating solid foods. General instructions Take logf-hbb-dwtaflh and prescription medicines only as told by [...] 10/14/2016 Document Revised: 09/22/2018 Document Reviewed: 10/14/2016 [employer] Patient Education 2020 [employer]. 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 04/14/2015 04/14/2015 Ztk-zxhb-gfpq 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, [...] of this encounter (statuses as of 11/01/2021) [facility] History of Past illness Narrative* Problem Noted Date Resolved Date Thrombocytopenia 11/19/2018 11/13/2019 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 04/14/2015 04/14/2015 Pai-fvsg-ktbr 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, [...] of this encounter (statuses as of 12/27/2021) [facility] History of Past illness Narrative* Problem Noted Date Resolved Date Thrombocytopenia 11/19/2018 11/13/2019 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 04/14/2015 04/14/2015 Jdh-jxwc-losc 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, [...] of this encounter (statuses as of 01/01/2022) [facility] History of Past illness Narrative* Problem Noted Date Resolved Date Thrombocytopenia 11/19/2018 11/13/2019 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 04/14/2015 04/14/2015 Yoj-agjm-fmiy 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, [...] of this encounter (statuses as of 01/03/2022) [facility] History of Past illness Narrative* Problem Noted Date Resolved Date Thrombocytopenia 11/19/2018 11/13/2019 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 04/14/2015 04/14/2015 Off-nqfb-pntq 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, [...] of this encounter (statuses as of 01/31/2022) [facility] History of Past illness Narrative* Problem Noted Date Resolved Date Thrombocytopenia 11/19/2018 11/13/2019 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 04/14/2015 04/14/2015 Bwk-ggyw-wnvm 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, [...] of this encounter (statuses as of 02/01/2022) [facility] History of Past illness Narrative* Problem Noted Date Resolved Date Thrombocytopenia 11/19/2018 11/13/2019 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 04/14/2015 04/14/2015 Sev-knvz-vhkh 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, [...] of this encounter (statuses as of 02/06/2022) [facility] History of Past illness Narrative* Problem Noted Date Resolved Date Thrombocytopenia 11/19/2018 11/13/2019 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 04/14/2015 04/14/2015 Gvy-gtvk-ykcb 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, [...] of this encounter (statuses as of 08/09/2022) [facility] History of Past illness Narrative* Problem Noted Date Resolved Date Thrombocytopenia 11/19/2018 11/13/2019 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 04/14/2015 04/14/2015 Jsq-aqqt-niob 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, [...] of this encounter (statuses as of 08/14/2022) [facility] History of Past illness Narrative* Problem Noted Date Resolved Date Thrombocytopenia 11/19/2018 11/13/2019 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 04/14/2015 04/14/2015 Qgs-yyct-xabi 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, [...] of this encounter (statuses as of 09/06/2022) [facility] History of Past illness Narrative* Problem Noted Date Resolved Date Thrombocytopenia 11/19/2018 11/13/2019 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 04/14/2015 04/14/2015 Mkz-iaxs-mlgv 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, [...] of this encounter (statuses as of 09/06/2022) [facility] History of Past illness Narrative* Problem Noted Date Resolved Date Thrombocytopenia 11/19/2018 11/13/2019 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 04/14/2015 04/14/2015 Nkb-mxka-enkn 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, [...] of this encounter (statuses as of 09/12/2022) [facility] History of Past illness Narrative* Problem Noted Date Resolved Date Thrombocytopenia 11/19/2018 11/13/2019 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 04/14/2015 04/14/2015 Sgz-hbrf-xgul 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, [...] of this encounter (statuses as of 09/13/2022) [facility] History of Past illness Narrative* Problem Noted Date Resolved Date Thrombocytopenia 11/19/2018 11/13/2019 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 04/14/2015 04/14/2015 Sch-mlka-icli 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, [...] of this encounter (statuses as of 10/11/2022) [facility] History of Past illness Narrative* Problem Noted Date Resolved Date Thrombocytopenia 11/19/2018 11/13/2019 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 04/14/2015 04/14/2015 Xsk-pljz-bswi 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, [...] of this encounter (statuses as of 11/08/2022) [facility] History of Past illness Narrative* Problem Noted Date Resolved Date Thrombocytopenia 11/19/2018 11/13/2019 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 04/14/2015 04/14/2015 Ewh-wtpc-aafi 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, [...] of this encounter (statuses as of 11/14/2022) [facility] History of Past illness Narrative* Problem Noted Date Resolved Date Thrombocytopenia 11/19/2018 11/13/2019 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 04/14/2015 04/14/2015 Mes-sawe-nxxt 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, [...] of this encounter (statuses as of 11/20/2022) [facility] History of Past illness Narrative* Problem Noted Date Resolved Date Thrombocytopenia 11/19/2018 11/13/2019 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 04/14/2015 04/14/2015 Gad-lgoz-vnyo 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, [...] of this encounter (statuses as of 11/21/2022) [facility] of Past illness Narrative* Problem Noted Date Resolved Date Thrombocytopenia 11/19/2018 11/13/2019 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 04/14/2015 04/14/2015 Bhh-eety-gvdh 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, [...] of this encounter (statuses as of 12/06/2022) [facility] History of Past illness Narrative* Problem Noted Date Diagnosed Date Resolved Date Thrombocytopenia 11/19/2018 11/13/2019 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 04/14/2015 04/14/2015 Cgm-uzdw-intd 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, [...] of this encounter (statuses as of 01/15/2023) [facility] History of Past illness Narrative* Problem Noted Date Diagnosed Date Resolved Date Thrombocytopenia 11/19/2018 11/13/2019 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 04/14/2015 04/14/2015 Mju-mbjw-psgo 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, [...] of this encounter (statuses as of 02/14/2023) [facility] History of Past illness Narrative* Problem Noted Date Diagnosed Date Resolved Date Thrombocytopenia 11/19/2018 11/13/2019 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 04/14/2015 04/14/2015 Lbd-hrqb-ncce 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, [...] of this encounter (statuses as of 02/21/2023) [facility] History of Past illness Narrative* Problem Noted Date Diagnosed Date Resolved Date Thrombocytopenia 11/19/2018 11/13/2019 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 04/14/2015 04/14/2015 Tol-wbtn-aftu 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, [...] of this encounter (statuses as of 03/25/2023) [facility] History of Past illness Narrative* Problem Noted Date Diagnosed Date Resolved Date Thrombocytopenia 11/19/2018 11/13/2019 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 04/14/2015 04/14/2015 Cyz-tmas-xtyj 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, [...] of this encounter (statuses as of 05/22/2023) [facility] of Past illness Narrative* Problem Noted Date Diagnosed Date Resolved Date Thrombocytopenia 11/19/2018 11/13/2019 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 04/14/2015 04/14/2015 Qcm-qsbl-aulc 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, [...] of this encounter (statuses as of 06/11/2023) [facility] of Past illness Narrative* Problem Noted Date Diagnosed Date Resolved Date Thrombocytopenia 11/19/2018 11/13/2019 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 04/14/2015 04/14/2015 Cpr-pvky-uece 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, [...] of this encounter (statuses as of 08/29/2023) [facility] History of Past illness Narrative* Problem Noted Date Diagnosed Date Resolved Date Thrombocytopenia 11/19/2018 11/13/2019 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 04/14/2015 04/14/2015 Awc-rdxw-uyud 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, [...] of this encounter (statuses as of 10/16/2023) [facility] History of Past illness Narrative* Problem Noted Date Diagnosed Date Resolved Date Thrombocytopenia 11/19/2018 11/13/2019 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 04/14/2015 04/14/2015 Lld-gfqp-akph 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, [...] of this encounter (statuses as of 10/17/2023) [facility] History of Past illness Narrative* Problem Noted Date Diagnosed Date Resolved Date Thrombocytopenia 11/19/2018 11/13/2019 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 04/14/2015 04/14/2015 Opk-kebf-ghvc 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, [...] of this encounter (statuses as of 10/21/2023) [facility] Evaluation note* Diagnosis Hypertension, essential- Primary Unspecified essential hypertension Mixed hyperlipidemia Other polyneuropathy Primary osteoarthritis of left knee Primary localized osteoarthrosis, lower leg Type 2 diabetes mellitus with diabetic polyneuropathy, without long-term current use of insulin ([facility]) Vitamin D deficiency Unspecified vitamin D deficiency [facility] Diagnosis Calf cramp- Primary Cramp of limb Hypertension, essential Unspecified essential hypertension Type 2 diabetes mellitus with diabetic polyneuropathy, without long-term current use of insulin ([facility]) Mixed hyperlipidemia documented in this encounter [facility] note* Diagnosis Type 2 diabetes mellitus with diabetic polyneuropathy, without long-term current use of insulin ([facility])- Primary Decreased pulses in feet Other symptoms involving cardiovascular system Mass of left side of neck Swelling, mass, or lump in head and neck Actinic keratosis Cold intolerance Other general symptoms Muscle cramp Cramp of limb Hypertension, essential Unspecified essential hypertension Mixed hyperlipidemia Other polyneuropathy documented in this encounter [facility] note* Diagnosis PAD (peripheral artery disease) ([facility])- Primary Peripheral vascular disease, unspecified documented in this encounter [facility] note* Diagnosis Bilateral carotid artery stenosis- Primary Occlusion and stenosis of carotid artery without mention of cerebral infarction PAD (peripheral artery disease) ([facility]) Peripheral vascular disease, unspecified Peripheral arterial disease (HCC) Peripheral vascular disease, unspecified Aortoiliac stenosis ([facility]) Atherosclerosis of aorta documented in this encounter [facility] noteNo assessment information availableWUniversity [facility] Work Phone: Evaluation note* Diagnosis Peripheral arterial disease (HCC)- Primary Peripheral vascular disease, unspecified documented in this encounter [facility] note* Diagnosis Onset Date Resolution Status Carotid stenosis, right acut e Carotid stenosis, right acut e [facility] Work Phone: Evaluation note* Diagnosis Cerebrovascular accident (CVA) due to stenosis of right carotid artery (HCC)- Primary [facility]* Diagnosis Type 2 diabetes mellitus with diabetic polyneuropathy, without long-term current use of insulin ([facility])- Primary Hypersplenism [facility]* Diagnosis Type 2 diabetes mellitus with [...] diabetes mellitus, limited to breakdown of skin ([facility]) [facility] Diagnosis Mixed hyperlipidemia documented in this encounter [facility] note* Diagnosis Onset Date Resolution Status Carotid stenosis, right product scientist cassandra Carotid stenosis, right product scientist cassandra Carotid stenosis, right product scientist cassandra [facility] Work Phone: Evaluation note* Diagnosis Onset Date Resolution Status Carotid stenosis, right product scientist cassandra Acute renal insufficiency ac rosa maria Acute UTI acute Atrial fibrillation with rapid ventricular response acute Atrial fibrillation, currently in sinus rhythm acute Weakness acute [facility] Work Phone: Evaluation note* Diagnosis Acute cystitis with hematuria- Primary Acute cystitis Atrial fibrillation with rapid ventricular response (HCC) Atrial fibrillation Acute diverticulitis Diverticulitis of colon (without mention of hemorrhage) Acute renal insufficiency Unspecified disorder of kidney and ureter Type 2 diabetes mellitus with diabetic polyneuropathy, without long-term current use of insulin ([facility]) Gait disorder Abnormality of gait Hypertension, essential Unspecified essential hypertension Other polyneuropathy documented in this encounter [facility] note* Diagnosis Onset Date Resolution Status Acute UTI acute Diverticulitis acute Weakness acute A-fib acute Hypercholesteremia acute Hypertension chronic [facility] Work Phone: Evaluation note* Diagnosis Type 2 [...] (HCC) Thrombocytopenia, unspecified [facility]* Diagnosis Onset Date Resolution Status A-fib acute Hypercholesteremia acute Hypertension [facility] Work Phone: Evaluation note* Diagnosis Type [...] (HCC) Thrombocytopenia, unspecified [facility]* Diagnosis Mixed hyperlipidemia documented in this encounter [facility] note* Diagnosis Type 2 diabetes [...] polyneuropathy Actinic keratosis [facility] Diagnosis Acute cystitis with hematuria Acute cystitis [facility] Diagnosis Uncontrolled type 2 diabetes mellitus [...] Unspecified essential hypertension documented in this encounter [facility] note* Diagnosis Uncontrolled type 2 [...] of skin- Primary [facility]* Diagnosis Uncontrolled type 2 [...] 30-34.9 Obesity, unspecified documented in this encounter [facility] note* Diagnosis Uncontrolled type 2 [...] of insulin (HCC) documented in this encounter [facility] note* Diagnosis Uncontrolled type 2 [...] cervical intervertebral disc documented in this encounter [facility] note* Diagnosis Uncontrolled type 2 [...] (HCC) Other polyneuropathy [facility]* Diagnosis Uncontrolled type 2 [...] Primary Impacted cerumen [facility]* Diagnosis Uncontrolled type 2 [...] disorder of skin documented in this encounter [facility] note* Diagnosis Uncontrolled type 2 [...] due to stenosis of right carotid artery ([facility]) Vitamin D deficiency Unspecified vitamin D deficiency documented in this encounter [facility] note* Diagnosis Uncontrolled type 2 [...] 29.9 in adult [facility] this [facility] Author Manan Mendosa [facility] January 24, 2023 4:02pm Note Date/Time January 24, 2023 4:02 pm [facility] Medical Records Department [address] [place] [address] History & Physical Exam 01/24/23 1547 MR#: [id number] Acct: [id number] Name: LARA TAPIA Rep #:[id number] : 1945 77 From: Manan Barreto PCP: Dr. Harlan Ford, DO Status:AD M ERICK Location: [place] [address] HPI - General General Date of Admission: [...] or shortness of breath at the time. [facility] Medical History Diabetes mellitus Easy bruising [...] BID DIABETES 09/06/22 [History Last Taken 01/23/23] aipptakwxww-pajhmcasx-abb C-Mn 500 mg-400 mg capsule (Glucosamine Chondroitin [...] and moves respiration Extremities. 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 Conscious alert and oriented x3. Cranial nerves [...] 88.6 H, Lymph % (Auto) 2.4 L, [place] % (Auto) 8.5, Eos % (Auto) 0.0, [...] Clarity Cloudy, Urine pH 5.0, Ur Specific [place] 1.020, Urine Protein 100 H, Urine Glucose [...] rhythm spontaneously in the emergency department with. [id number] score of 6. Patient started on Eliquis [...] the morning. Charges/Coding Visit Charges Inpatient E&M: 68944 Init Hosp L3 01/24/23 1602 <Electronically signed by Manan Mendosa MD> Cosigner Signature (if applicable): CC: Dr. Manan Mendosa MD; Dr. Harlan Ford, DO~ Signed [facility] Work Phone: Hospital course Narrative No data available for this section [facility] Hospital Discharge instructions No data available for this section [facility] Reason for referral (narrative)* Outpatient Procedure (Routine) - Pending Review Specialty Diagnoses / Procedures Referred By Contac t Referred To Contact [facility] Diagnoses Aortoiliac stenosis (HCC) Procedures SCREENING AORTA DUPLEX (2017) US ABDOMINAL AORTA REAL TIME SCREEN STUDY AAA Roshan Ray MD [address] [place] [address] [address] Referral ID Status Reason Start Date Expiration Date Visits Requested Visits Authorized [id number] Pending Review Auto-Generat ed Referral 09/05/2022 09/05/2023 1 1 * Outpatient Procedure (Routine) - Authorized Specialty Diagnoses / Procedures Referred By Contac t Referred To Contact [facility] Diagnoses Peripheral arterial disease (HCC) Procedures PVR ANK PRESS [facility] NON-INVAS PHYSIOLOGIC STD EXTREMITY ART 2 LEVEL Roshan Ray MD [address] [place] [address] [address] Referral ID Status Reason Start Date Expiration Date Visits Requested Visits Authorized [id number] Authorized Auto-Generat ed Referral 09/05/2022 09/05/2023 1 1 * Outpatient Procedure (Routine) - Authorized Specialty Diagnoses / Procedures Referred By Contac t Referred To Contact [facility] Diagnoses Peripheral arterial disease (HCC) Procedures US LEG ARTERIAL PERIPH [facility] DUP-SCAN LXTR ART/ARTL BPGS COMPL BI STUDY Roshan Ray MD [address] [place] [address] [address] Referral ID Status Reason Start Date Expiration Date Visits Requested Visits Authorized [id number] Authorized Auto-Generat ed Referral 09/05/2022 09/05/2023 1 1 * Outpatient Procedure (Routine) - Authorized Specialty Diagnoses / Procedures Referred By Contac t Referred To Contact [facility] Diagnoses Bilateral carotid artery stenosis Procedures US CAROTID ARTERIES [facility] DUPLEX SCAN EXTRACRANIAL ART COMPL BI STUDY Roshan Ray MD [address] [place] [address] [facility] [address] [address] Referral ID Status Reason Start Date Expiration Date Visits Requested Visits Authorized [id number] Authorized Auto-Generat ed Referral 09/05/2022 09/05/2023 1 1 [facility] for referral (narrative)* Outpatient Procedure (Routine) - Pending Review Specialty Diagnoses / Procedures Referred By Contac t Referred To Contact [facility] Diagnoses Peripheral arterial disease (HCC) Procedures US POPLITEAL ARTERY [facility] NON-INVAS PHYSIOLOGIC STD EXTREMITY ART 2 LEVEL Roshan Ray MD [address] [place] [address] [address] Referral ID Status Reason Start Date Expiration Date Visits Requested Visits Authorized [id number] Pending Review Auto-Generat ed Referral 09/12/2022 09/12/2023 1 1 [facility] [place] for referral (narrative)* Diagnostic Procedure Only (Urgent) - Closed Specialty Diagnoses / Procedures Referred By Contac t Referred To Contact XR IMAGING Diagnoses Right hand pain Procedures XR HAND GENERAL 3V PA/LAT/OBL RIGHT RADEX HAND MINIMUM 3 VIEWS Kalpana Poe, PA-C [address] [facility] [address] [place] [address] [place] [address] Referral ID Status Reason Start Date Expiration Date V isits Requested Visits Authorized [id number] Closed Auto-Generate d Referral 07/23/2024 08/22/2025 1 1 * Diagnostic Procedure Only (Urgent) - Closed Specialty Diagnoses / Procedures Referred By Contac t Referred To Contact XR IMAGING Diagnoses Right elbow pain Procedures XR ELBOW SPECIAL VIEWS AP/LAT/OTHER RIGHT RADEX ELBOW COMPLETE MINIMUM 3 VIEWS Kalpana Poe PA-C [address] [address] [place] [address] Referral ID Status Reason Start Date Expiration Date V isits Requested Visits Authorized [id number] Closed Auto-Generate d Referral 07/23/2024 08/22/2025 1 1 * Diagnostic Procedure Only (Urgent) - Closed Specialty Diagnoses / Procedures Referred By Contac t Referred To Contact XR IMAGING Diagnoses Chronic right shoulder pain Procedures XR SHOULDER [id number] AP/TRUE AP RIGHT RADEX SHOULDER COMPLETE MINIMUM 2 VIEWS Kalpana Poe PA-C [address] [place] [address] [place] [address] Referral ID Status Reason Start Date Expiration Date V isits Requested Visits Authorized [id number] Closed Auto-Generate d Referral 07/23/2024 08/22/2025 1 1 [facility]No reason for referral information availableW[facility] Work Phone: Reason for visit Narrative* Diagnostic Procedure Only (Urgent) - Closed Specialty Diagnoses / Procedures Referred By Contac t Referred To Contact XR IMAGING Diagnoses Right hand pain Procedures XR HAND GENERAL 3V PA/LAT/OBL RIGHT RADEX HAND MINIMUM 3 VIEWS Kalpana Poe PA-C [address] [address] [place] [address] Referral ID Status Reason Start Date Expiration Date V isits Requested Visits Authorized [id number] Closed Auto-Generate d Referral 07/23/2024 08/22/2025 1 1 [facility] Summary Purpose Family History No Family History Records FoundNo Family History Records FoundNo Family History Records Found Advance Directives No Advanced Directives Records FoundDocuments on File Type Date Recorded Patient Door Person Expl anation Advance Directive(s) 04/11/2020 7:46 AM Advance Directive Response Recorded Date/ Time Living Will Yes September 06, 2022 1:24pm Power of Second Grade Teacher Yes September 06 1:24pm Name of Medical Power of Second Grade Teacher DOROTHY OVALLE September 06, 2022 1:24pm Advance Directive Response Recorded Date/ Time Name of Medical Power of Second Grade Teacher DOROTHY DUDLEYGERS September 06, 2022 2:24pm Name of Medical Power of Second Grade Teacher DOROTHY TAPIA September 13, 2022 4:07pm Living Will Yes September 13, 2022 4:07pm Power of Second Grade Teacher Yes September 13 4:07pm Advance Directive Response Recorded Date/ Time Name of Medical Power of Second Grade Teacher DOROTHY TAPIA September 13, 2022 4:07pm Name of Medical Power of Second Grade Teacher SON January 05, 2023 9:21am Living Will Yes January 05, 2023 9 :21am Power of Second Grade Teacher Yes January 05, 2023 9:21am Advance Directive Response Recorded Date/ Time Name of Medical Power of Second Grade Teacher DOROTHY TAPIA- S ON January 24, 2023 1:13pm Living Will Yes January 24, 2023 1:13pm Power of Second Grade Teacher Yes January 24 1:13pm Name of Medical Power of Second Grade Teacher SON January 05, 2023 9:21am Advance Directive Response Recorded Date/ Time Name of Medical Power of Second Grade Teacher Dorothy Tapia (son), Zehra Farris (spouse) January 24, 2023 4:33pm Living Will Yes January 24, 2023 4:33pm Power of Second Grade Teacher Yes January 24 4:33pm Name of Medical Power of Second Grade Teacher SON January 05, 2023 9:21am Advance Directive Response Recorded Date/ Time Living Will Yes January 24, 2023 3:33pm Power of Second Grade Teacher Yes January 24 3:33pm Advance Directive Response Recorded Date/ Time Living Will Yes January 24, 2023 4:33pm Power of Second Grade Teacher Yes January 24 4:33pm Advance Directive Response Recorded Date/ Time Living Will Yes January 24, 2023 4:33pm Power of Second Grade Teacher Yes January 24 4:33pm Living Will Yes September 05, 2024 8:21am Power of Second Grade Teacher Yes September 05 8:21am Living Will Yes June 07 2:12am Power of Second Grade Teacher Yes June 07, 2024 2:12am Living Will Yes July 08 5:40am Power of Second Grade Teacher Yes July 08 5:40am Living Will Yes August 08 4:04am Power of Second Grade Teacher Yes August 08, 2024 4:04am Advance Directive Response Recorded Date/ Time Living Will Yes January 24, 2023 4:33pm Do you have a Healthcare Power of Second Grade Teacher? Yes January 24, 2023 4:33pm Living Will Yes September 05, 2024 8:21am Do you have a Healthcare Power of Second Grade Teacher? Yes September 05, 2024 8:21am Living Will Yes June 07 2:12am Do you have a Healthcare Power of Second Grade Teacher? Yes June 07, 2024 2:12am Living Will Yes July 08 5:40am Do you have a Healthcare Power of Second Grade Teacher? Yes July 08, 2024 5:40am Living Will Yes August 08 4:04am Do you have a Healthcare Power of Second Grade Teacher? Yes August 08, 2024 4:04am Advance Directive Response Recorded Date/ Time Living Will Yes January 24, 2023 4:33pm Do you have a Healthcare Power of Second Grade Teacher? Yes January 24, 2023 4:33pm Living Will Yes September 05, 2024 8:21am Do you have a Healthcare Power of Second Grade Teacher? Yes September 05, 2024 8:21am Living Will Yes October 05, 2024 10:40pm Do you have a Healthcare Power of Second Grade Teacher? Yes October 05, 2024 10:40pm Living Will Yes June 07 2:12am Do you have a Healthcare Power of Second Grade Teacher? Yes June 07, 2024 2:12am Living Will Yes July 08 5:40am Do you have a Healthcare Power of Second Grade Teacher? Yes July 08, 2024 5:40am Living Will Yes August 08 4:04am Do you have a Healthcare Power of Second Grade Teacher? Yes August 08, 2024 4:04am Advance Directive Response Recorded Date/ Time Living Will Yes January 24, 2023 4:33pm Do you have a Healthcare Power of Second Grade Teacher? Yes January 24, 2023 4:33pm Living Will Yes September 05, 2024 8:21am Do you have a Healthcare Power of Second Grade Teacher? Yes September 05, 2024 8:21am Living Will Yes October 05, 2024 10:40pm Do you have a Healthcare Power of Second Grade Teacher? Yes October 05, 2024 10:40pm Living Will Yes November 04, 2024 9:59pm Do you have a Healthcare Power of Second Grade Teacher? Yes November 04, 2024 9:59pm Living Will Yes July 08 5:40am Do you have a Healthcare Power of Second Grade Teacher? Yes July 08, 2024 5:40am Living Will Yes August 08 4:04am Do you have a Healthcare Power of Second Grade Teacher? Yes August 08, 2024 4:04am Advance Directive Response Recorded Date/ Time Living Will Yes January 24, 2023 4:33pm Do you have a Healthcare Power of Second Grade Teacher? Yes January 24, 2023 4:33pm Living Will Yes September 05, 2024 8:21am Do you have a Healthcare Power of Second Grade Teacher? Yes September 05, 2024 8:21am Living Will Yes October 05, 2024 10:40pm Do you have a Healthcare Power of Second Grade Teacher? Yes October 05, 2024 10:40pm Living Will Yes November 04, 2024 9:59pm Do you have a Healthcare Power of Second Grade Teacher? Yes November 04, 2024 9:59pm Living Will Yes August 08 4:04am Do you have a Healthcare Power of Second Grade Teacher? Yes August 08, 2024 4:04am Advance Directive Response Recorded Date/ Time Living Will Yes January 24, 2023 4:33pm Do you have a Healthcare Power of Second Grade Teacher? Yes January 24, 2023 4:33pm Living Will Yes September 05, 2024 8:21am Do you have a Healthcare Power of Second Grade Teacher? Yes September 05, 2024 8:21am Living Will Yes October 05, 2024 10:40pm Do you have a Healthcare Power of Second Grade Teacher? Yes October 05, 2024 10:40pm Living Will Yes November 04, 2024 9:59pm Do you have a Healthcare Power of Second Grade Teacher? Yes November 04, 2024 9:59pm Living Will Yes December 06, 2024 7 :08pm Do you have a Healthcare Power of Second Grade Teacher? Yes December 06, 2024 7:08pm Living Will Yes August 08 4:04am Do you have a Healthcare Power of Second Grade Teacher? Yes August 08, 2024 4:04am Advance Directive Response Recorded Date/ Time Living Will Yes January 24, 2023 4:33pm Do you have a Healthcare Power of Second Grade Teacher? Yes January 24, 2023 4:33pm Living Will Yes September 05, 2024 8:21am Do you have a Healthcare Power of Second Grade Teacher? Yes September 05, 2024 8:21am Living Will Yes October 05, 2024 10:40pm Do you have a Healthcare Power of Second Grade Teacher? Yes October 05, 2024 10:40pm Living Will Yes November 04, 2024 9:59pm Do you have a Healthcare Power of Second Grade Teacher? Yes November 04, 2024 9:59pm Living Will Yes December 06, 2024 7 :08pm Do you have a Healthcare Power of Second Grade Teacher? Yes December 06, 2024 7:08pm Advance Directive Response Recorded Date/ Time Living Will Yes October 05, 2024 10:40pm Do you have a Healthcare Power of Second Grade Teacher? Yes October 05, 2024 10:40pm Living Will Yes November 04, 2024 9:59pm Do you have a Healthcare Power of Second Grade Teacher? Yes November 04, 2024 9:59pm Living Will Yes December 06, 2024 7 :08pm Do you have a Healthcare Power of Second Grade Teacher? Yes December 06, 2024 7:08pm Reason for Referral Specialty Diagnoses / Procedures Referred By Sean t Referred To Contact [facility] Diagnoses Acute pain of right shoulder Neck pain Fall, subsequent encounter Right elbow pain Procedures CONSULT TO PHYSICAL THERAPY PHYSICAL THERAPY EVALUATION HIGH COMPLEX 45 MINS Harlan Ford DO [address] [place] [address] [facility] [address] [place] [address] Referral ID Status Reason Start Date Expiration Date Visits Requested Visits Authorized [id number] Authorized PCP Requested Referral Auto-Generate d Referral 07/29/2024 07/29/2025 99 99 Specialty Diagnoses / Procedures Referred By Sean ireland Referred To Contact Podiatry Diagnoses Type 2 diabetes mellitus with diabetic polyneuropathy, without long-term current use of insulin (HCC) PAD (peripheral artery disease) (HCC) Procedures CONSULT TO PODIATRY OFFICE/OUTPATIENT [facility] 60-74 MINUTES Harlan Ford, DO [address] [place] [address] Referral ID Status Reason Start Date Expiration Date Visits Requested Visits Authorized [id number] Authorized PCP Requested Referral 11/13/2022 11/13/2023 1 1 Specialty Diagnoses / Procedures Referred By Sean ireland Referred To Contact Vascular Surgery Diagnoses PAD (peripheral artery disease) (HCC) Procedures CONSULT TO VASCULAR SURGERY OFFICE/OUTPATIENT [facility] 60-74 MINUTES Harlan Ford, DO [address] [place] [address] Referral ID Status Reason Start Date Expiration Date V isits Requested Visits Authorized [id number] Closed PCP Requested Referral 08/22/2022 08/22/2023 1 1 Specialty Diagnoses / Procedures Referred By Sean ireland Referred To Contact CT IMAGING Diagnoses Mass of left side of neck Procedures CT NECK SOFT TISSUE WO IVCON CT SOFT TISSUE NECK W/O CONTRAST MATERIAL Harlan Ford, DO [address] [place] [address] Ct Imaging Referral ID Status Reason Start Date Expiration Date Visits Requested Visits Authorized [id number] Authorized Auto-Generat ed Referral 08/08/2022 09/07/2023 1 1 Specialty Diagnoses / Procedures Referred By Sean ireland [facility] Diagnoses Decreased pulses in feet Procedures PVR ANK PRESS [facility] NON-INVAS PHYSIOLOGIC STD EXTREMITY ART 2 LEVEL Harlan Ford, DO [address] [place] [address] [facility] [address] [place] [address] Referral ID Status Reason Start Date Expiration Date Visits Requested Visits Authorized [id number] Authorized Auto-Generat ed Referral 08/08/2022 08/08/2023 1 [...] UTI NEW ONSET ATRIAL FIB, UTI S/P [facility] 01/25/23 AFIB A FIB/HTN/HYPERCHOLESTEREMIA RIGHT CAROTID STENOSIS [...] REVIEW IMAGING & DISCUSS BIOPSY IN OR [facility] 2024 8:20am Reason for Visit Admit Date [...] REVIEW IMAGING & DISCUSS BIOPSY IN OR [facility] 2024 8:20am S/O E ORDER January 19, 2025 10:3 2am Pre Op Visit January 25, 2025 12:1 4pm Additional Source Comments (unrecognized sect ion and content) No Status Records FoundNo Status Records FoundNo Status Records Found INFORMATION SOURCE (unrecogn ized section and content) DATE CREATED AUTHOR 09/01/2021 [facility] ([place]) DATE CREATED AUTHOR AUTHOR'S ORGANIZ ATION 12/24/2024 [facility] DATE CREATED AUTHOR AUTHOR'S ORGANIZ ATION 01/28/2025 [facility] Source Comments (unrecognize d section and content) In the event this informatio n is protected by the Federal Confidentiality of Alcohol and Drug Abuse Patient Records regulations: The Federal rules restrict any use of the information to criminally investigate or prosecute any alcohol or drug abuse patient.[facility] the event this information is protected by the Federal Confidentiality of Alcohol and Drug Abuse Patient Records regulations: The Federal rules restrict any use of the information to criminally investigate or prosecute any alcohol or drug abuse patient.[facility] HospitalIn the event this information is protected by the Federal Confidentiality of Alcohol and Drug Abuse Patient Records regulations: The Federal rules restrict any use of the information to criminally investigate or prosecute any alcohol or drug abuse patient.[facility] HospitalIn the event this information is protected by the Federal Confidentiality of Alcohol and Drug Abuse Patient Records regulations: The Federal rules restrict any use of the information to criminally investigate or prosecute any alcohol or drug abuse patient.[facility] HospitalIn the event this information is protected by the Federal Confidentiality of Alcohol and Drug Abuse Patient Records regulations: The Federal rules restrict any use of the information to criminally investigate or prosecute any alcohol or drug abuse patient.[facility] the event this information is protected by the Federal Confidentiality of Alcohol and Drug Abuse Patient Records regulations: The Federal rules restrict any use of the information to criminally investigate or prosecute any alcohol or drug abuse patient.[facility] Hospital[facility] the event this information is protected by the Federal Confidentiality of Alcohol and Drug Abuse Patient Records regulations: The Federal rules restrict any use of the information to criminally investigate or prosecute any alcohol or drug abuse patient.[facility] HospitalIn the event this information is protected by the Federal Confidentiality of Alcohol and Drug Abuse Patient Records regulations: The Federal rules restrict any use of the information to criminally investigate or prosecute any alcohol or drug abuse patient.[facility] HospitalIn the event this information is protected by the Federal Confidentiality of Alcohol and Drug Abuse Patient Records regulations: The Federal rules restrict any use of the information to criminally investigate or prosecute any alcohol or drug abuse patient.[facility] HospitalIn the event this information is protected by the Federal Confidentiality of Alcohol and Drug Abuse Patient Records regulations: The Federal rules restrict any use of the information to criminally investigate or prosecute any alcohol or drug abuse patient.[facility] HospitalIn the event this information is protected by the Federal Confidentiality of Alcohol and Drug Abuse Patient Records regulations: The Federal rules restrict any use of the information to criminally investigate or prosecute any alcohol or drug abuse patient.[facility] HospitalIn the event this information is protected by the Federal Confidentiality of Alcohol and Drug Abuse Patient Records regulations: The Federal rules restrict any use of the information to criminally investigate or prosecute any alcohol or drug abuse patient.[facility] HospitalIn the event this information is protected by the Federal Confidentiality of Alcohol and Drug Abuse Patient Records regulations: The Federal rules restrict any use of the information to criminally investigate or prosecute any alcohol or drug abuse patient.[facility] HospitalIn the event this information is protected by the Federal Confidentiality of Alcohol and Drug Abuse Patient Records regulations: The Federal rules restrict any use of the information to criminally investigate or prosecute any alcohol or drug abuse patient.[facility] HospitalIn the event this information is protected by the Federal Confidentiality of Alcohol and Drug Abuse Patient Records regulations: The Federal rules restrict any use of the information to criminally investigate or prosecute any alcohol or drug abuse patient.[facility] HospitalIn the event this information is protected by the Federal Confidentiality of Alcohol and Drug Abuse Patient Records regulations: The Federal rules restrict any use of the information to criminally investigate or prosecute any alcohol or drug abuse patient.[facility] HospitalIn the event this information is protected by the Federal Confidentiality of Alcohol and Drug Abuse Patient Records regulations: The Federal rules restrict any use of the information to criminally investigate or prosecute any alcohol or drug abuse patient.[facility] HospitalIn the event this information is protected by the Federal Confidentiality of Alcohol and Drug Abuse Patient Records regulations: The Federal rules restrict any use of the information to criminally investigate or prosecute any alcohol or drug abuse patient.[facility] HospitalIn the event this information is protected by the Federal Confidentiality of Alcohol and Drug Abuse Patient Records regulations: The Federal rules restrict any use of the information to criminally investigate or prosecute any alcohol or drug abuse patient.[facility] HospitalIn the event this information is protected by the Federal Confidentiality of Alcohol and Drug Abuse Patient Records regulations: The Federal rules restrict any use of the information to criminally investigate or prosecute any alcohol or drug abuse patient.[facility] HospitalIn the event this information is protected by the Federal Confidentiality of Alcohol and Drug Abuse Patient Records regulations: The Federal rules restrict any use of the information to criminally investigate or prosecute any alcohol or drug abuse patient.[facility] HospitalIn the event this information is protected by the Federal Confidentiality of Alcohol and Drug Abuse Patient Records regulations: The Federal rules restrict any use of the information to criminally investigate or prosecute any alcohol or drug abuse patient.[facility] HospitalIn the event this information is protected by the Federal Confidentiality of Alcohol and Drug Abuse Patient Records regulations: The Federal rules restrict any use of the information to criminally investigate or prosecute any alcohol or drug abuse patient.[facility] HospitalIn the event this information is protected by the Federal Confidentiality of Alcohol and Drug Abuse Patient Records regulations: The Federal rules restrict any use of the information to criminally investigate or prosecute any alcohol or drug abuse patient.[facility] HospitalIn the event this information is protected by the Federal Confidentiality of Alcohol and Drug Abuse Patient Records regulations: The Federal rules restrict any use of the information to criminally investigate or prosecute any alcohol or drug abuse patient.[facility] HospitalIn the event this information is protected by the Federal Confidentiality of Alcohol and Drug Abuse Patient Records regulations: The Federal rules restrict any use of the information to criminally investigate or prosecute any alcohol or drug abuse patient.[facility] HospitalIn the event this information is protected by the Federal Confidentiality of Alcohol and Drug Abuse Patient Records regulations: The Federal rules restrict any use of the information to criminally investigate or prosecute any alcohol or drug abuse patient.[facility] HospitalIn the event this information is protected by the Federal Confidentiality of Alcohol and Drug Abuse Patient Records regulations: The Federal rules restrict any use of the information to criminally investigate or prosecute any alcohol or drug abuse patient.[facility] HospitalIn the event this information is protected by the Federal Confidentiality of Alcohol and Drug Abuse Patient Records regulations: The Federal rules restrict any use of the information to criminally investigate or prosecute any alcohol or drug abuse patient.[facility] HospitalIn the event this information is protected by the Federal Confidentiality of Alcohol and Drug Abuse Patient Records regulations: The Federal rules restrict any use of the information to criminally investigate or prosecute any alcohol or drug abuse patient.[facility] HospitalIn the event this information is protected by the Federal Confidentiality of Alcohol and Drug Abuse Patient Records regulations: The Federal rules restrict any use of the information to criminally investigate or prosecute any alcohol or drug abuse patient.[facility] HospitalIn the event this information is protected by the Federal Confidentiality of Alcohol and Drug Abuse Patient Records regulations: The Federal rules restrict any use of the information to criminally investigate or prosecute any alcohol or drug abuse patient.[facility] HospitalIn the event this information is protected by the Federal Confidentiality of Alcohol and Drug Abuse Patient Records regulations: The Federal rules restrict any use of the information to criminally investigate or prosecute any alcohol or drug abuse patient.[facility] HospitalIn the event this information is protected by the Federal Confidentiality of Alcohol and Drug Abuse Patient Records regulations: The Federal rules restrict any use of the information to criminally investigate or prosecute any alcohol or drug abuse patient.[facility] HospitalIn the event this information is protected by the Federal Confidentiality of Alcohol and Drug Abuse Patient Records regulations: The Federal rules restrict any use of the information to criminally investigate or prosecute any alcohol or drug abuse patient.[facility] HospitalIn the event this information is protected by the Federal Confidentiality of Alcohol and Drug Abuse Patient Records regulations: The Federal rules restrict any use of the information to criminally investigate or prosecute any alcohol or drug abuse patient.[facility] HospitalIn the event this information is protected by the Federal Confidentiality of Alcohol and Drug Abuse Patient Records regulations: The Federal rules restrict any use of the information to criminally investigate or prosecute any alcohol or drug abuse patient.[facility] HospitalIn the event this information is protected by the Federal Confidentiality of Alcohol and Drug Abuse Patient Records regulations: The Federal rules restrict any use of the information to criminally investigate or prosecute any alcohol or drug abuse patient.[facility] Hospital[facility] the event this information is protected by the Federal Confidentiality of Alcohol and Drug Abuse Patient Records regulations: The Federal rules restrict any use of the information to criminally investigate or prosecute any alcohol or drug abuse patient.[facility] HospitalIn the event this information is protected by the Federal Confidentiality of Alcohol and Drug Abuse Patient Records regulations: The Federal rules restrict any use of the information to criminally investigate or prosecute any alcohol or drug abuse patient.[facility] HospitalIn the event this information is protected by the Federal Confidentiality of Alcohol and Drug Abuse Patient Records regulations: The Federal rules restrict any use of the information to criminally investigate or prosecute any alcohol or drug abuse patient.[facility] HospitalIn the event this information is protected by the Federal Confidentiality of Alcohol and Drug Abuse Patient Records regulations: The Federal rules restrict any use of the information to criminally investigate or prosecute any alcohol or drug abuse patient.[facility] HospitalIn the event this information is protected by the Federal Confidentiality of Alcohol and Drug Abuse Patient Records regulations: The Federal rules restrict any use of the information to criminally investigate or prosecute any alcohol or drug abuse patient.[facility] HospitalIn the event this information is protected by the Federal Confidentiality of Alcohol and Drug Abuse Patient Records regulations: The Federal rules restrict any use of the information to criminally investigate or prosecute any alcohol or drug abuse patient.[facility] HospitalIn the event this information is protected by the Federal Confidentiality of Alcohol and Drug Abuse Patient Records regulations: The Federal rules restrict any use of the information to criminally investigate or prosecute any alcohol or drug abuse patient.[facility] HospitalIn the event this information is protected by the Federal Confidentiality of Alcohol and Drug Abuse Patient Records regulations: The Federal rules restrict any use of the information to criminally investigate or prosecute any alcohol or drug abuse patient.[facility] HospitalIn the event this information is protected by the Federal Confidentiality of Alcohol and Drug Abuse Patient Records regulations: The Federal rules restrict any use of the information to criminally investigate or prosecute any alcohol or drug abuse patient.[facility] HospitalIn the event this information is protected by the Federal Confidentiality of Alcohol and Drug Abuse Patient Records regulations: The Federal rules restrict any use of the information to criminally investigate or prosecute any alcohol or drug abuse patient.[facility] HospitalIn the event this information is protected by the Federal Confidentiality of Alcohol and Drug Abuse Patient Records regulations: The Federal rules restrict any use of the information to criminally investigate or prosecute any alcohol or drug abuse patient.[facility] HospitalIn the event this information is protected by the Federal Confidentiality of Alcohol and Drug Abuse Patient Records regulations: The Federal rules restrict any use of the information to criminally investigate or prosecute any alcohol or drug abuse patient.[facility] HospitalIn the event this information is protected by the Federal Confidentiality of Alcohol and Drug Abuse Patient Records regulations: The Federal rules restrict any use of the information to criminally investigate or prosecute any alcohol or drug abuse patient.[facility] Reason for Visit (unrecogniz ed section [...] Vascular Surgery Diagnoses PAD (peripheral artery disease) ([facility]) Procedures CONSULT TO VASCULAR SURGERY OFFICE/OUTPATIENT NEW HIGH MDM 60-74 MINUTES Harlan Ford, DO [address] [place] [address] Referral ID Status Reason Start Date Expiration Date V isits Requested Visits Authorized [id number] Closed PCP Requested Referral 08/22/2022 08/22/2023 1 [...] Care Teams (unrecognized sec tion and content) Polytechnic Teacher Relationship Specialty Start Date End Date Harlan Ford, DO [address] [place] [address] PCP - General Family Practice 02/19/17 Polytechnic Teacher Relationship Specialty Start Date End Date Harlan Ford, DO [address] [place] [address] PCP - General Family Practice 02/19/17 Polytechnic Teacher Relationship Specialty Start Date End Date Harlan Ford, DO [address] [place] [address] PCP - General Family Practice 02/19/17 Polytechnic Teacher Relationship Specialty Start Date End Date Harlan Ford DO [address] [place] [address] PCP - General Family Practice 02/19/17 Polytechnic Teacher Relationship Specialty Start Date End Date Harlan Ford, DO [address] [place] [address] PCP - General Family Practice 02/19/17 Polytechnic Teacher Relationship Specialty Start Date End Date Harlan Ford, DO [address] [place] [address] PCP - General Family Practice 02/19/17 Polytechnic Teacher Relationship Specialty Start Date End Date Harlan Ford, DO [address] [place] [address] PCP - General Family Medicine 02/19/17 Polytechnic Teacher Relationship Specialty Start Date End Date Harlan Ford, DO [address] [place] [address] PCP - General Family Medicine 02/19/17 Polytechnic Teacher Relationship Specialty Start Date End Date Harlan Ford, DO [address] [place] [address] PCP - General Family Medicine 02/19/17 Polytechnic Teacher Relationship Specialty Start Date End Date Harlan Ford, DO [address] [place] [address] PCP - General Family Medicine 02/19/17 Team Status: Active Member Role Status Dates Dr. Gilson Mario , Family Provider Active Dr. Harlan Ford DO Primary Care Provider Active Team Status: Inactive Member Role Status Dates Dr. Jw Kirkpatrick MD Emergency Provider Active Dr. Harlan Ford DO Primary Care Provider Active Polytechnic Teacher Relationship Specialty Start Date End Date Harlan Ford, DO [address] [place] [address] PCP - General [facility] Medicine 02/19/17 Polytechnic Teacher Relationship Specialty Start Date End Date Harlan Ford, DO [address] [place] [address] PCP - [facility] Medicine 02/19/17 Team Status: Inactive Member [...] Dr. Sony Roberts MD Other Provider Active Polytechnic Teacher Relationship Specialty Start Date End Date Harlan Ford, DO [address] [place] [address] PCP - General Family Medicine 02/19/17 Polytechnic Teacher Relationship Specialty Start Date End Date Harlan Ford, DO [address] [place] [address] PCP - General Family Medicine 02/19/17 Polytechnic Teacher Relationship Specialty Start Date End Date Harlan Ford, DO [address] [place] [address] PCP - General Family Medicine 02/19/17 Polytechnic Teacher Relationship Specialty Start Date End Date Harlan Ford, DO [address] [place] [address] PCP - General Family Medicine 02/19/17 Polytechnic Teacher Relationship Specialty Start Date End Date Harlan Ford, DO [address] [place] [address] PCP - General Family Medicine 02/19/17 Polytechnic Teacher Relationship Specialty Start Date End Date Harlan Ford, DO [address] [place] [address] PCP - General Family Medicine 02/19/17 Team Status: Inactive Member Role Status Dates Dr. Harlan Ford , DO Primary Care Provider Active Dr. Abilio Manrique , DO Attending Provider, Emergency Pr ovider Active Team Status: Inactive Member Role Status Dates Dr. Harlan Ford , DO Primary Care Provider Active Dr. Clay Kidd , DO Emergency Provider Active Polytechnic Teacher Relationship Specialty Start Date End Date Harlan Ford, DO [address] [place] [address] PCP - General Family Medicine 02/19/17 Team [...] DO Attending Provider, Emergency Pro vider Active Polytechnic Teacher Relationship Specialty Start Date End Date Harlan Ford, DO [address] [place] [address] PCP - General Family Medicine 02/19/17 Polytechnic Teacher Relationship Specialty Start Date End Date Harlan Ford, DO [address] [place] [address] PCP - General Family Medicine 02/19/17 Team [...] Rocha MD Other Provider Active Bubba Rondon CASTER OPERATOR, CASTER OPERATOR-C Other Provider Active Teressa Morales CASTER OPERATOR, CASTER OPERATOR-C Other Provider Active Torri Mendoza PA, PA [...] Rocha MD Other Provider Active Bubba Rondon CASTER OPERATOR, CASTER OPERATOR-C Other Provider Active Teressa Morales CASTER OPERATOR, CASTER OPERATOR-C Other Provider Active Torri CARL, PA Other Provider Active Team Status: Active Member Role Status Dates Dr. Harlan Ford DO Primary Care Provider Active Torri CARL, PA Attending Provider, Referr ing Provider Active Polytechnic Teacher Relationship Specialty Start Date End Date Harlan Ford DO [address] [place] [address] PCP - General Family Medicine 02/19/17 Polytechnic Teacher Relationship Specialty Start Date End Date Harlan Ford DO [address] [place] [address] PCP - General Family Medicine 02/19/17 Team Status: Inactive Member Role Status Dates Dr. Harlan Ford DO Primary Care Provider Active Torri CARL, PA Attending Provider, Referr ing Provider Active Polytechnic Teacher Relationship Specialty Start Date End Date Harlan Ford DO [address] [place] [address] PCP - General Family Medicine 02/19/17 Team Status: Active Member Role Status Dates Dr. Harlan Ford DO Primary Care Provider Active Dr. Sony López MD Attending Provider Active SIDDHARTHA Ulloa Referring Provider Active Polytechnic Teacher Relationship Specialty Start Date End Date Harlan Ford DO [address] [place] [address] PCP - General Family Medicine 02/19/17 Polytechnic Teacher Relationship Specialty Start Date End Date Harlan Ford DO [address] [place] [address] PCP - General Family Medicine 02/19/17 Polytechnic Teacher Relationship Specialty Start Date End Date Harlan Ford DO [address] [place] [address] PCP - General Family Medicine 02/19/17 Polytechnic Teacher Relationship Specialty Start Date End Date Harlan Ford DO [address] [place] [address] PCP - General Family Medicine 02/19/17 Polytechnic Teacher Relationship Specialty Start Date End Date Harlan Ford DO [address] [place] [address] PCP - General Family Medicine 02/19/17 Polytechnic Teacher Relationship Specialty Start Date End Date Harlan Ford DO [address] [place] [address] PCP - General Family Medicine 02/19/17 Polytechnic Teacher Relationship Specialty Start Date End Date Harlan Ford DO [address] [place] [address] PCP - General Family Medicine 02/19/17 Polytechnic Teacher Relationship Specialty Start Date End Date Harlan Ford DO [address] [facility] [place] [address] PCP - General Family Medicine 02/19/17 Polytechnic Teacher Relationship Specialty Start Date End Date Harlan Ford DO [address] [place] [address] PCP - General Family Medicine 02/19/17 Polytechnic Teacher Relationship Specialty Start Date End Date Harlan Ford DO [address] [place] [address] PCP - General Family Medicine 02/19/17 Polytechnic Teacher Relationship Specialty Start Date End Date Harlan Ford DO [address] [place] [address] PCP - General Family Medicine 02/19/17 Ida Gan, E COMMERCE DIRECTOR.SHOP FOREMAN [address] [place] [address] Mortgage Manager Family Medicine 06/14/24 oJse Osborne APRN.SHOP FOREMAN [address] [facility] [place] [address] Mortgage Manager Family Medicine 06/14/24 Polytechnic Teacher Relationship Specialty Start Date End Date Harlan Ford DO [address] [place] [address] PCP - General Family Medicine 02/19/17 Ida Gan, E COMMERCE DIRECTOR.SHOP FOREMAN [address] [facility] [place] [address] Mortgage Manager Family Medicine 06/14/24 Jose Osborne, E COMMERCE DIRECTOR.SHOP FOREMAN [address] [facility] [place] [address] Mortgage Manager Family Medicine 06/14/24 Polytechnic Teacher Relationship Specialty Start Date End Date Harlan Ford DO [address] [facility] [place] [address] PCP - General Family Medicine 02/19/17 Ida Gan, E COMMERCE DIRECTOR.SHOP FOREMAN [address] [facility] [place] [address] Mortgage Manager Family Medicine 06/14/24 Jose Osborne, E COMMERCE DIRECTOR.SHOP FOREMAN [address] [facility] [place] [address] [facility] 06/14/24 Polytechnic Teacher Relationship Specialty Start Date End Date Harlan Ford DO [address] [facility] [place] [address] PCP - General Family Medicine 02/19/17 Ida Gan, E COMMERCE DIRECTOR.SHOP FOREMAN [address] [facility] [place] [address] Mortgage Manager Family Medicine 06/14/24 Jose Osborne, E COMMERCE DIRECTOR.SHOP FOREMAN [address] [facility] [place] [address] [facility] 06/14/24 Polytechnic Teacher Relationship Specialty Start Date End Date Harlan Ford DO [address] [facility] [place] [address] PCP - General Family Medicine 02/19/17 Ida Gan, E COMMERCE DIRECTOR.SHOP FOREMAN [address] [place] [address] [facility] 06/14/24 [facility], E COMMERCE DIRECTOR.SHOP FOREMAN [address] [facility] [place] [address] [facility] 06/14/24 Polytechnic Teacher Relationship Specialty Start Date End Date Harlan Ford DO [address] [place] [address] PCP - General Family Medicine 02/19/17 Ida Gan, E COMMERCE DIRECTOR.SHOP FOREMAN [address] [place] [address] [facility] 06/14/24 [facility], E COMMERCE DIRECTOR.SHOP FOREMAN [address] [place] [address] [facility] 06/14/24 Polytechnic Teacher Relationship Specialty Start Date End Date Harlan Ford DO [address] [place] [address] PCP - General Family Medicine 02/19/17 Ida Gan, E COMMERCE DIRECTOR.SHOP FOREMAN [address] [place] [address] [facility] 06/14/24 UrsulaJose, E COMMERCE DIRECTOR.SHOP FOREMAN [address] [place] [address] [facility] 06/14/24 Polytechnic Teacher Relationship Specialty Start Date End Date Harlan Ford DO [address] [place] [address] PCP - General Family Medicine 02/19/17 Ida Gan, E COMMERCE DIRECTOR.SHOP FOREMAN [address] [place] [address] [facility] 06/14/24 UrsulaJose, E COMMERCE DIRECTOR.SHOP FOREMAN [address] [place] [address] [facility] 06/14/24 Polytechnic Teacher Relationship Specialty Start Date End Date Harlan Ford DO [address] [place] [address] PCP - General [facility] Medicine 02/19/17 Ida Gan, E COMMERCE DIRECTOR.SHOP FOREMAN [address] [place] [address] [facility] 06/14/24 [facility]eland[facility], E COMMERCE DIRECTOR.SHOP FOREMAN [address] [place] [address] [facility] 06/14/24 Team Status: Active Member Role [...] Referring Provider Active Start: September 28, 2024 Polytechnic Teacher Relationship Specialty Start Date End Date Harlan Ford DO [address] [place] [address] PCP - General Family Medicine 02/19/17 Jose Osborne, YADIRA.SHOP FOREMAN [address] [place] [address] Mortgage Manager Family Medicine 06/14/24 Team Status: Inactive Member [...] December 23, 2024 End: December 23, 2024 Polytechnic Teacher Relationship Specialty Start Date End Date Harlan Ford DO [address] [place], [place] [address] PCP - General Family Medicine 02/19/17 Jose Osborne, E COMMERCE DIRECTOR.SHOP FOREMAN [address] [place], [place] [address] Mortgage Manager Family Medicine 06/14/24 Radha Guzman, E COMMERCE DIRECTOR.SHOP FOREMAN [address] [place], [place] [id number] Mortgage Manager Family [facility] 12/21/24 Team Status: Active Member Role/Relationship [...] Provider Active Start: January 19, 2025 SIDDHARTHA [place] Referring Provider Active Start: January 19, 2025 [...] BE BASED ON THE PRIMARY CLINICAL RECORDS. [employer] provides no warranty or guarantee of the accuracy or completeness of information in this document.
[2025-02-02] VITALS (10 sets, daily range): BP systolic 143–184; BP diastolic 62–82; PULSE 61–75; RESP 16–18; TEMP 36.3–36.6; O2SAT 95–98; BMI 26.9
[2025-02-02 01:22] LABS: Troponin T High Sens 4 HR 31 ng/L (<=22)
[2025-02-02 04:45] LABS: Hematocrit 32.5 % (40-54); Hemoglobin 11.3 g/dL (13.0-16.5); Immature Granulocytes Count 0.080 X10^3/uL (0.0-0.0); Mean Corp Hgb Conc 34.8 g/dL (32-36); Mean Corpuscular Volume 88.6 fL (80-94); Mean Platelet Vol. 8.6 fl (6.2-12.0); NRBC Flagged by Analyzer 0 % (0-5); POSITIVE COUNT YES; POSITIVE DIFFERENTIAL YES; Platelet Count 95 K/mm3 (150-450); RBC Distribution Width CV 13.4 % (11.6-14.6); RBC Distribution Width SD 43.9 fl (35.1-43.9); Red Blood Count 3.67 M/mm3 (4.6-6.2); White Blood Count 3.7 K/mm3 (4.4-11.0)
[2025-02-02 04:59] LABS: Anion Gap 15 (5-15); BUN 22 mg/dL (4-19); BUN/Creat Ratio 27.6 RATIO (10-20); Calcium,Total 9.4 mg/dL (7.6-11.0); Carbon Dioxide 22.3 mmol/L (21.0-32.0); Chloride 103 mmol/L (98-108); Cholesterol 155 mg/dL (<=200); Estimated Creatinine Clearance 73.63 ml/min (50-250); Glucose 54 mg/dL (70-99); Low Density Lipoprotein Calc. 73 mg/dL; Potassium 3.5 mmol/L (3.3-5.1); Triglycerides 216 mg/dL; Very Low Density Lipoprotein 43 mg/dL (5-40); cholesterol:hdl ratio screen 4.02
[2025-02-02 05:13] LABS: Prothrombin Time (Protime)PT. 16.9 SECONDS (11.7-14.9)
[2025-02-02 05:18] LABS: Differential Indicated SCAN CRITERIA MET
--- NOTE | 2025-02-02 06:11 | ECHOD_ITS ---
Reason For Study Reason For Study: TIA/CVA Procedure This was a 2D Doppler, Color Flow transthoracic echocardiogram. Exam performed portable in patient room. Left Ventricle Normal LV size. The left ventricular ejection fraction is 55 %. Stage 1 diastolic dysfunction. No regional wall motion abnormalities noted. Right Ventricle Normal RV size. Normal systolic function. Mitral Valve There is mild to moderate mitral annular calcification. Tricuspid Valve Normal tricuspid valve. Mild to moderate (1-2+) tricuspid valve insufficiency. Pulmonary artery systolic pressure is 45 mmHg. Aortic Valve Trisinus/trileaflet aortic valve. Mild focal aortic valve calcification. Pulmonic Valve Normal pulmonic valve. Great Vessels Normal aortic root. The pulmonary artery is normal size. Inferior vena cava collapse with sniff. Pericardium/Pleural No pericardial effusion. MMode/2D Measurements & Calculations LVIDd: 4.0 cm IVSd: 1.1 cm Ao root diam: 3.4 cm LVIDs: 2.3 cm LVPWd: 1.00 cm RVDd: 3.7 cm FS: 42.9 % LAV(MOD-bp): 70.3 ml LVAd ap4: 23.1 cm2 SV(MOD-sp4): 46.0 ml LAV(MOD-bp) Indexed: 36.2 ml/m2 LVLd ap4: 6.7 cm SI(MOD-sp4): 23.7 ml/m2 LAV(MOD-sp2): 82.4 ml EDV(MOD-sp4): 64.7 ml LAV(MOD-sp4): 52.4 ml EDV(sp4-el): 67.5 ml LVAs ap4: 10.9 cm2 LVLs ap4: 5.5 cm ESV(MOD-sp4): 18.6 ml ESV(sp4-el): 18.5 ml EF(MOD-sp4): 71.2 % EF(sp4-el): 72.7 % SV(sp4-el): 49.1 ml LA dimension(2D): 4.8 cm LA A4 area: 19.0 cm2 RA A4 area: 10.6 cm2 TAPSE: 2.6 cm Time Measurements MV dec time: 0.29 sec Doppler Measurements & Calculations MV E max owen: 111.7 cm/sec Lat Peak E' Owen: 8.7 cm/sec Med Peak E' Owen: 6.3 cm/sec MV A max owen: 126.4 cm/sec E/E' lat: 12.9 E/E' med: 17.8 MV E/A: 0.88 MV V2 max: 126.5 cm/sec Ao V2 max: 148.2 cm/sec MV max P.4 mmHg MV dec slope: 380.5 cm/sec2 Ao max P.8 mmHg MV V2 mean: 78.3 cm/sec Ao V2 mean: 97.6 cm/sec MV mean P.8 mmHg Ao mean P.4 mmHg MV V2 VTI: 41.0 cm Ao V2 VTI: 31.8 cm AV (velocity ratio): 0.72 LV V1 max: 114.3 cm/sec PA V2 max: 111.2 cm/sec PI end-d owen: 132.4 cm/sec LV V1 max P.2 mmHg LV V1 mean P.9 mmHg LV V1 mean: 81.3 cm/sec LV V1 VTI: 23.0 cm TR max owen: 323.5 cm/sec TR max P.9 mmHg ECHO/Echo Complete Interpretation Summary Normal LV size. The left ventricular ejection fraction is 55 %. There is mild to moderate mitral annular calcification. Mild focal aortic valve calcification. Stage 1 diastolic dysfunction. Pulmonary artery systolic pressure is 45 mmHg. Ordering Physician: Gilson Porras Referring Physician: Harlan Ford Performed By: Azalia Rondon RDCS, RVT
[2025-02-02] MEDS: Dext 5%-0.45% NS 1,000 ML 125 ML IV ×2 (07:02→16:12)
--- NOTE | 2025-02-02 09:50 | MRI_ITS ---
EXAM: BRAIN W/WO CONTRAST CLINICAL HISTORY: TIA confusion, slurred speech COMPARISON: February 01, 2025 CT. TECHNIQUE: Multiplanar, multisequence MR images of the brain were obtained without and with 16 cc Clariscan gadolinium contrast material. FINDINGS: No intracranial hemorrhage, mass, mass effect, midline shift or pathologic extra- axial fluid collection. No hydrocephalus. There is mild bilateral white matter disease with scattered foci of increased T2 and FLAIR signal in the deep white matter on the right and left. There is a 1 cm area of restricted diffusion in the right precentral cortex at the vertex, image 24/26, on a single image, and may be artifact. No gradient signal blooming artifacts are identified. No cerebellar tonsillar ectopia. No sellar/suprasellar signal abnormalities. The ocular globes and intraorbital soft tissues are symmetrically unremarkable. Mucosal thickening is visible in the right and left maxillary sinus. There are no suspicious enhancing lesions. MRI/Brain W/WO Contrast IMPRESSION: There is mild bilateral white matter disease with scattered foci of increased T 2 and FLAIR signal in the deep white matter on the right and left. There is a 1 cm area of restricted diffusion in the right prece ntral cortex at the vertex, image 24/26, on a single image, and may be artifact. Mucosal thickening is visible in the right and left maxillary sinus. Reading Location: [facility]
--- NOTE | 2025-02-02 13:20 | CASEMGMT ---
MATEO BRUCE Assessment Face to Face with patient for initial transition planning/care coordination assessment. MATEO BRUCE introduced self and role at [facility], pt voices understanding. Pt is A&Ox4 and is resting comfortably in bed and is calm. Care providers, pharmacy, and demographics verified. Admitting dx: AFib, AMS, Hypoglycemia. Noted that the pt's recently passed x 3 weeks ago. SW plans to follow up. Pt's BS level was 28 in the ED. LACE Strata: 2 PCP: Harlan Ford Specialists: Maribel (Vascular), Adrian (Gen Surgeon) Preferred Pharmacy: [facility] Insurance: [employer] A/B, [employer] Commercial Prescription Benefit: Yes LNOK: Grant Tapia (Son), Sarika Hastings (Sister) Living Arrangements: Pt now lives alone in a single story home with one step to enter ADLs/IADLs: Indep. 6-Click score is 24. PT is not recommending any additional therapy. Transportation: Self, family.Denies concerns DME: Functioning B[employer] with sufficient supplies including lancets, test strips, and EtOH swabs. Cane. FWW. Grab bars. HHC/SNF: Denies hx or needs Pt?s goal: Home Plan: Home, follow for anticoag. Pt states that he feels safe returning home alone once medically ready and denies further needs at this time. Pt denies further questions or concerns at this time. Report given to PCU TEO. Nabila Driscoll RN, CM
--- NOTE | 2025-02-02 14:01 | CASEMGMT ---
Social Work SW spoke w/pt in room in regard to recent loss of . Support offered. SW did give to pt a list of counseling agencies and included hospice for bereavement counseling, should pt be interested in considering counseling in the future. KAY Arroyo
--- NOTE | 2025-02-02 14:53 | PN_ITS ---
Subjective Subjective Patient seen and examined. His son was by his bedside. He felt much better and had no active complaints. His hypoglycemia has resolved. REview of systems is otherwise negative. Objective Data Objective Data Vital Signs: Vital Signs Temp Pulse Resp BP Pulse Ox O2 Del Method 97.9 F 61 18 155/62 H 98 Room Air 02/02/25 12:00 02/02/25 12:00 02/02/25 12:00 02/02/25 12:00 02/02/25 12:00 02/02/25 12:00 Oxygen Delivery Method Room Air Weight: 177 lb 7.554 oz Body Mass Index (BMI) 26.9 Intake & Output: Intake and Output for Last 24 Hours 01/31/25 02/01/25 02/02/25 23:59 23:59 23:59 Intake Total 250 / 250 Output Total 300 / 300 Balance -50 / -50 Medical Nutrition Assessment Dietitian: Malnutrition Criteria Met Start: 02/02/25 10:28 Freq: Status: Active Protocol: Document 02/02/25 10:28 RMA (Rec: 02/02/25 10:29 RMA [id number]) Nutrition Malnutrition Evidence of Yes Malnutrition Exists Malnutrition (severe Acute Illness/Injury ): Evidenced By Suboptimal Energy Intake (Severe),Weight Loss (Severe) Clinical Problem Altered Nutrient-Related Laboratory Values Etiology related to hypoglycemia Signs/Symptoms as evidenced by blood glucose 54 Status Active Problem Acute Disease or Injury Related Malnutrition Etiology Severe protein-calorie malnutrition in the context of acute illness/event related to inadequate oral/energy intake due to recent loss of spouse and recent hospitalization Signs/Symptoms as evidenced by ~10% unintentional weight loss x 1 month and ongoing poor appetite and inadequate oral intake meeting less than 50% estimated nutrition needs x past 1 month. Status Active Problem Recommendation Dietitian Will liberalize diet to Regular and encourage improved Recommendations/ PO at meals. Changes Will add 240mL strawberry ensure plus HP w/ breakfast and lunch tray. Will try vanilla magic cup dessert with dinner. Monitor blood glucose and possible need to restrict carbohydrates given hx of DM. Monitor PO as established, trend weights and adjust ONS as needed to replete ann/pro. Lab / Micro Data 02/02/25 04:27 02/02/25 04:27 Labs: Laboratory Results - last 24 hr 02/01/25 19:53: POC Glucose 28 L* 02/01/25 21:11: Urine Color Yellow, Urine Clarity Clear, Urine pH 6.0, Ur Specific [place] 1.015, Urine Protein 500 H, Urine Glucose (UA) Normal, Urine Ketones Negative, Urine Occult Blood 50 H, Urine Nitrite Negative, Urine Bilirubin Negative, Urine Urobilinogen Normal, Ur Leukocyte Esterase Negative, Urine RBC 0-5 SEEN, Urine WBC 0-5 SEEN, Ur Squamous Epith Cells 0-5 SEEN, Urine Bacteria 0 SEEN, Hyaline Casts 0-5 SEEN, Urine Mucus 0 SEEN 02/01/25 21:14: POC Glucose 96 02/01/25 21:58: POC Glucose 73 L 02/01/25 22:22: Troponin T Hi Sens 2 Hr 33 H 02/01/25 : WBC 8.2, RBC 4.12 L, Hgb 12.8 L, Hct 37.3 L, MCV 90.5, MCH 31.1, MCHC 34.3, RDW Std Deviation 45.1 H, RDW Coeff of [place] 13.6, Plt Count 144 L, MPV 9.0, Immature Gran % (Auto) 3.100 H, Neut % (Auto) 75.5 H, Lymph % (Auto) 9.8 L, [place] % (Auto) 9.8, Eos % (Auto) 0.9, Baso % (Auto) 0.9, Absolute Neuts (auto) 6.2, A bsolute Lymphs (auto) 0.80 L, Nucleated RBC % 0, PT 16.6 H, INR 1.3, APTT 29.7, Sodium 144, Potassium 3.4, Chloride 108, Carbon Dioxide 21.2, Anion Gap 14, BUN 26 H, Creatinine 0.83, Estim Creat Clear Calc 73.35, Est GFR (MDRD) Non-Af 90, B UN/Creatinine Ratio 30.8 H, Glucose 31 L*, Calcium 8.5, Troponin T High Sens 33 H 02/02/25 00:50: Troponin T Hi Sens 4Hr 31 H 02/02/25 00:52: POC Glucose 96 02/02/25 04:27: WBC 3.7 L, RBC 3.67 L, Hgb 11.3 L, Hct 32.5 L, MCV 88.6, MCH 30.8, MCHC 34.8, RDW Std Deviation 43.9, RDW Coeff of [place] 13.4, Plt Count 95 L, MPV 8.6, Immature Gran % (Auto) 2.100 H, Neut % (Auto) 70.9 H, Lymph % (Auto) 14.7 L, [place] % (Auto) 11.0 H, Eos % (Auto) 0.8, Baso % (Auto) 0.5, Absolute Neuts (auto) 2.7, Absolute Lymphs (auto) 0.55 L, Nucleated RBC % 0, Platelet Estimate MOD DEC, PT 16.9 H, INR 1.3, Sodium 140, Potassium 3.5, Chloride 103, Carbon Dioxide 22.3, Anion Gap 15, BUN 22 H, Creatinine 0.80, Estim Creat Clear Calc 73.63, Est GFR (MDRD) Non-Af 91, BUN/Creatinine Ratio 27.6 H, Glucose 54 L, Calcium 9.4, Triglycerides 216 H, Cholesterol 155, LDL Cholesterol, Calc 73, V LDL Cholesterol 43 H, HDL Cholesterol 39 L, Cholesterol/HDL Ratio 4.02 02/02/25 06:17: POC Glucose 44 L* 02/02/25 06:57: POC Glucose 95 02/02/25 10:49: POC Glucose 137 H Radiography Diagnostic Testing: Radiology Impression Brain CT 02/01/25 20:08 IMPRESSION: No evidence of acute intracranial pathology. Mild generalized volume loss and chronic microangiopathic changes. Reading Location: [facility] Head/Neck CTA 02/01/25 20:17 IMPRESSION: No new intracranial or cervical large vessel arterial occlusion or flow-limiting stenosis. 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 This may represent azygous MARSHA anatomic variant versus a chronically occluded and compensated left MARSHA A2 occlusion. Mild roughly 50% stenosis of the proximal left cervical ICA. Widely patent right cervical ICA with evidence of prior carotid endarterectomy procedure. Interval progression of multiple enlarged and necrotic left cervical lymph nodes; highly concerning for underlying metastatic disease. Recent biopsy changes as noted. Findings discussed via telephone with provider Parvez Thornton 02/01/2025 at 8 p.m. ELEMENTARY EDUCATOR. Reading Location: [facility] Chest X-Ray 02/01/25 22:16 IMPRESSION: No acute cardiopulmonary disease. Reading Location: [facility] Brain MRI 02/02/25 09:50 IMPRESSION: There is mild bilateral white matter disease with scattered foci of increased T2 and FLAIR signal in the deep white matter on the right and left. There is a 1 cm area of restricted diffusion in the right precentral cortex at the vertex, image 24/26, on a single image, and may be artifact. Mucosal thickening is visible in the right and left maxillary sinus. Reading [facility] Physical Exam Const alert, oriented x3 and no apparent distress General Appearance: cooperative HEENT normocephalic, head/scalp atraumatic, moist oral mucous membranes and oropharynx normal HEENT Narrative: intact dressing over lymph node biopsy on left side of neck. Eyes PERRL and EOMs intact bilaterally Neck no lymphadenopathy and supple Lymph Lymphatic: no lymphedema noted Resp normal respiratory effort, normal air movement and clear to auscultation bilaterally Cardio regular rate, regular rhythm, S1 normal heart sound, S2 normal heart sound and no murmurs GI normal to inspection, nondistended, normoactive bowel sounds, soft to palpation and non-tender Extremity normal capillary refill, no clubbing, cyanosis or edema and no calf tenderness General Extremity: no tenderness to palpation of joints or extremities Skin General Skin Exam: no breakdown Neuro CN's II-XII intact bilaterally, no focal motor deficits, no sensory deficits noted and deep tendon reflexes 2+ bilaterally Motor Exam: strength 5/5 throughout Psych thought process normal and cooperative Appearance: appropriate Assessment & Plan Assessment/Plan (1) Slurred speech: (2) AMS (altered mental status): (3) Mass of left side of neck: PLAN: Plan #Altered mental status with slurred speech due to hypoglycemia * admitted with a complaint of weakness and slurred speech. Was found to be hypoglycemic, with blood sugar down to 28 * hypoglycemia has resolved * CT brain showed no acute intracranial pathology * MRI brain showed mild bilateral white matter disease with scattered foci of increased T2 and Flair signal in the deep white matter on the right and left, and a 1cm area of restricted diffusion in the precentral cortex at the vertex which may be an infarct * will get SOC neurology consult for further evaluation * PT/OT On board. * 2D echo ordered and pending. * on aspirin and high intensity statin. He does have a history of stroke. * * #Enlarged cervical lymph nodes, concerning for malignancy * CTA head and neck showed 50% stenosis of the proximal left cervical ICA and widenly patient right cervical ICA with evidence of prior carotid endarterectomy and interval progression of multiple enlarged necrotic left cervical lymph nodes highly concerning for underlying metastatic disease s/p recent biopsy. * biopsy done last week. To follow up with PCP on outpatient basis * #Afib * has a history of afib, and was on coumadin. Coumadin was held last week for the lymph node biopsy. * coumadin resumed. INR today is 1.3. * target INR of 2-3 * #TYpe 2 diabetes mellitus * was hypoglycemic on admission. He lost his a month ago and has not been eating or drinking well * glucose is 54. * glimepiride and metformin held. * #Hypertension: on propranolol, losartan. DVT prophylaxis: warfarin Charges/Coding Visit Charges Inpatient E&M: 55097 Subs Hosp L2
[2025-02-02] MEDS: 0.9% Saline Lock 10 ML Syringe IV (22:52)
[2025-02-02] MEDS: MENTHOL 226.8 GM JAR 1 APPLIC TOPICAL (23:00)
[2025-02-03 01:09] VITALS: BMI 26.9
[2025-02-03] MEDS: Dext 5%-0.45% NS 1,000 ML 70 ML IV (02:27)
[2025-02-03 03:00] VITALS: PULSE 66
[2025-02-03 03:43] VITALS: BP 144/59; PULSE 73; RESP 15; TEMP 36.2; O2SAT 95
[2025-02-03 05:45] LABS: Hematocrit 30.3 % (40-54); Hemoglobin 10.4 g/dL (13.0-16.5); Immature Granulocytes Count 0.050 X10^3/uL (0.0-0.0); Mean Corp Hgb Conc 34.3 g/dL (32-36); Mean Corpuscular Volume 89.6 fL (80-94); Mean Platelet Vol. 8.8 fl (6.2-12.0); NRBC Flagged by Analyzer 0 % (0-5); POSITIVE COUNT YES; POSITIVE DIFFERENTIAL YES; Platelet Count 85 K/mm3 (150-450); RBC Distribution Width CV 13.2 % (11.6-14.6); RBC Distribution Width SD 43.2 fl (35.1-43.9); Red Blood Count 3.38 M/mm3 (4.6-6.2); White Blood Count 2.2 K/mm3 (4.4-11.0)
[2025-02-03 07:25] VITALS: BP 154/94; PULSE 87; RESP 17; TEMP 36.5; O2SAT 97
[2025-02-03 08:46] LABS: Anion Gap 13 (5-15); BUN 16 mg/dL (4-19); BUN/Creat Ratio 22.0 RATIO (10-20); Calcium,Total 9.1 mg/dL (7.6-11.0); Carbon Dioxide 22.3 mmol/L (21.0-32.0); Chloride 100 mmol/L (98-108); Estimated Creatinine Clearance 73.63 ml/min (50-250); Glucose 263 mg/dL (70-99); Potassium 3.5 mmol/L (3.3-5.1)
[2025-02-03 09:48] VITALS: BP 167/73; PULSE 80
[2025-02-03] MEDS: Cholecalciferol (VIT D3) 25 MCG TABLET (1,000 UNITS) PO (09:49)
[2025-02-03 11:25] VITALS: BP 134/89; PULSE 77; RESP 16; TEMP 36.5; O2SAT 99
--- NOTE | 2025-02-03 12:50 | DS.PCM_ITS ---
Providers Date of Admission: 02/01/25 Date of Discharge: 02/03/25 Primary Care Physician: Dr. Harlan Ford, DO Consultations 02/02/25 14:54 Neurology [Consult: Tele-Neurology] Routine Consulting Provider: [facility] Reason for Consult: acute CVA EMERGENT Consult: No MD Notified: Yes Date Notified: 02/02/25 Time Notified: 14:58 Method of Notification: Answering Service Nursing Unit Staff Notify [facility] of Tele-Neurology Consult: Yes Reason For Visit: ALTERED MENTAL STATUS, HYPOGLYCEMIA Diagnosis Discharge Diagnosis (1) Slurred speech: Status: Acute Code(s): R47.81 - Slurred speech (2) AMS (altered mental status): Status: Acute Code(s): R41.82 - Altered mental status, unspecified (3) Mass of left side of neck: Status: Chronic Code(s): R22.1 - Localized swelling, mass and lump, neck Plan #Altered mental status with slurred speech due to hypoglycemia * admitted with a complaint of weakness and slurred speech. Was found to be hypoglycemic, with blood sugar down to 28 * hypoglycemia has resolved * CT brain showed no acute intracranial pathology * MRI brain showed mild bilateral white matter disease with scattered foci of increased T2 and Flair signal in the deep white matter on the right and left, and a 1cm area of restricted diffusion in the precentral cortex at the vertex which may be an infarct * will get [facility] neurology consult for further evaluation * PT/OT On board. * 2D echo ordered and pending. * on aspirin and high intensity statin. He does have a history of stroke. * * #Enlarged cervical lymph nodes, concerning for malignancy * CTA head and neck showed 50% stenosis of the proximal left cervical ICA and widenly patient right cervical ICA with evidence of prior carotid endarterectomy and interval progression of multiple enlarged necrotic left cervical lymph nodes highly concerning for underlying metastatic disease s/p recent biopsy. * biopsy done last week. To follow up with PCP on outpatient basis * #Afib * has a history of afib, and was on coumadin. Coumadin was held last week for the lymph node biopsy. * coumadin resumed. INR today is 1.3. * target INR of 2-3 * #TYpe 2 diabetes mellitus * was hypoglycemic on admission. He lost his a month ago and has not been eating or drinking well * glucose is 54. * glimepiride and metformin held. * #Hypertension: on propranolol, losartan. DVT prophylaxis: warfarin Medications at Discharge Home Medications gabapentin 300 mg capsule 900 mg PO TID PAIN 09/06/22 sknxirjrlim-vechdmffx-kko C-Mn 500 mg-400 mg capsule (Glucosamine Chondroitin Maximum Strength) 1 cap PO DAILY SUPPLEMENT 09/06/22 magnesium oxide 500 mg capsule 500 mg PO DAILY SUPPLEMENT 09/10/22 cholecalciferol (vitamin D3) 25 mcg (1,000 unit) capsule (Vitamin D3) 25 mcg PO DAILY SUPPLEMENT 09/13/22 meloxicam 7.5 mg tablet 7.5 mg PO PRN PRN FOOT PAIN 09/13/22 simvastatin 20 mg tablet 20 mg PO DAILY Cholesterol 10/11/22 lamotrigine 25 mg tablet 25 mg PO DAILY PT UNSURE 01/15/24 losartan 50 mg tablet 50 mg PO QDAY bp 01/15/24 potassium gluconate 595 mg (99 mg) tablet 595 mg PO DAILY Supplement 01/13/25 warfarin 4 mg tablet 4 mg PO DAILY Anticoagulant 01/13/25 losartan 25 mg tablet 50 mg PO DAILY 02/01/25 propranolol 60 mg capsule,24 hr,extended release 60 mg PO DAILY 02/01/25 warfarin 2 mg tablet 2 mg PO .COMPLEX 02/01/25 metformin 500 mg tablet 500 mg PO BID #60 tabs 02/03/25 Hospital Course Operations None Procedures 2-D Echocardiogram Summary of Care Provided Minutes Spent on Discharge: 45 Hospital Course: Patient is a 79-year-old male with a past medical history as outlined who was admitted through the ED on 02/01/2025 with complaint of confusion. He did have a history of stroke and A-fib for which he was on Coumadin. However the week before admission he had had a lymph node biopsy and had been taken off of his Coumadin. He had restarted the Coumadin 2 days prior to admission. Family found him very confused and he was brought to the ED where he was found to have blood sugar of 28. Family said patient's father a month ago and due to his grieving patient had not been eating well and taking care of himself well. On the phone and he has slurred speech but no other neurologic deficits. CT of the brain showed no acute intracranial pathology and CT of the head and neck showed 50% stenosis of the proximal left cervical ICA and widely patient right cervical ICA with evidence of prior carotid endarterectomy and interval progression of multiple enlarged necrotic left cervical lymph nodes highly concerning for underlying metastatic disease s/p recent biopsy.. His blood sugar was corrected and his speech improved and his mentation improved. He was admitted to be managed for acute encephalopathy due to hypoglycemia. However in light of him having missed some days of his Coumadin it was thought prudent to rule out stroke as well. He had 2D echo which showed EF of 55% and stage I diastolic dysfunction with no regional wall motion abnormalities and pulmonary artery systolic pressure 45 mmHg. MRI of the brain showed mild bilateral white matter disease with scattered foci of increased T2 and Flair signal in the deep white matter on the right and left, and a 1cm area of restricted diffusion in the precentral cortex at the vertex which may be an infarct. Teleneurology was consulted. I was contacted by the neurologist on-call Dr Amanuel Sneed of [facility] who stated that he felt the area of restricted diffusion in his review was truly an artifact. He therefore advised the patient should go back on his Coumadin. Patient symptoms resolved and he felt much better. His A1c was checked which was 6.7. His glimepiride was therefore discontinued and his metformin reduced from 750 mg twice daily to 500 mg twice daily. He is to follow-up with his primary care doctor within 1 to 2 weeks and make sure that he eats well to prevent any future episodes of hypoglycemia. Patient seen and examined prior to discharge. He had no complaints and felt much better. He had an uneventful night. Review of systems otherwise negative. Labs and vitals reviewed. Home medication reviewed and reconciled. Physical Exam Const alert, oriented x3 and no apparent distress General Appearance: cooperative and comfortable HEENT normocephalic, head/scalp atraumatic, hearing grossly normal bilaterally, moist oral mucous membranes and oropharynx normal Mouth: oral and palatal mucosa normal Eyes PERRL, EOMs intact bilaterally and conjunctivae normal Neck no lymphadenopathy and supple Lymph Lymphatic: no lymphedema noted Resp normal respiratory effort, normal air movement and clear to auscultation bilaterally Cardio regular rate, regular rhythm, S1 normal heart sound, S2 normal heart sound and no murmurs GI normal to inspection, nondistended, normoactive bowel sounds, soft to palpation and non-tender Extremity normal to inspection, full ROM, normal capillary refill, no clubbing, cyanosis or edema and no calf tenderness General Extremity: edema Skin General Skin Exam: no breakdown Neuro oriented x3, CN's II-XII intact bilaterally, moves all extremities, no focal motor deficits, no sensory deficits noted and deep tendon reflexes 2+ bilaterally Speech: speech normal Motor Exam: strength 5/5 throughout Psych thought process normal and cooperative Appearance: appropriate Medical Records Data Medical Nutrition Assessment Dietitian: Malnutrition Criteria Met Start: 02/02/25 10:28 Freq: Status: Active Protocol: Document 02/02/25 10:28 RMA (Rec: 02/02/25 10:29 RMA [id number]) Nutrition Malnutrition Evidence of Yes Malnutrition Exists Malnutrition (severe Acute Illness/Injury ): Evidenced By Suboptimal Energy Intake (Severe),Weight Loss (Severe) Clinical Problem Altered Nutrient-Related Laboratory Values Etiology related to hypoglycemia Signs/Symptoms as evidenced by blood glucose 54 Status Active Problem Acute Disease or Injury Related Malnutrition Etiology Severe protein-calorie malnutrition in the context of acute illness/event related to inadequate oral/energy intake due to recent loss of spouse and recent hospitalization Signs/Symptoms as evidenced by ~10% unintentional weight loss x 1 month and ongoing poor appetite and inadequate oral intake meeting less than 50% estimated nutrition needs x past 1 month. Status Active Problem Recommendation Dietitian Will liberalize diet to Regular and encourage improved Recommendations/ PO at meals. Changes Will add 240mL strawberry ensure plus HP w/ breakfast and lunch tray. Will try vanilla magic cup dessert with dinner. Monitor blood glucose and possible need to restrict carbohydrates given hx of DM. Monitor PO as established, trend weights and adjust ONS as needed to replete ann/pro. Weight / BMI Weight Weight: 177 lb 7.554 oz Body Mass Index (BMI) 26.9 ABG / Lab / Microbiology Data 02/03/25 05:14 02/03/25 05:14 Laboratory: Laboratory Results - last 24 hr 02/02/25 15:51: POC Glucose 307 H 02/02/25 21:54: POC Glucose 329 H 02/03/25 02:52: POC Glucose 269 H 02/03/25 05:14: WBC 2.2 L, RBC 3.38 L, Hgb 10.4 L, Hct 30.3 L, MCV 89.6, MCH 30.8, MCHC 34.3, RDW Std Deviation 43.2, RDW Coeff of [place] 13.2, Plt Count 85 L, MPV 8.8, Immature Gran % (Auto) 2.300 H, Neut % (Auto) 65.6, Lymph % (Auto) 19.0, [place] % (Auto) 11.3 H, Eos % (Auto) 0.9, Baso % (Auto) 0.9, Absolute Neuts (auto) 1.5 L, Absolute Lymphs (auto) 0.42 L, Nucleated RBC % 0, Sodium 135, Potassium 3.5, Chloride 100, Carbon Dioxide 22.3, Anion Gap 13, BUN 16, Creatinine 0.73, Estim Creat Clear Calc 73.63, Est GFR (MDRD) Non-Af 93, B UN/Creatinine Ratio 22.0 H, Glucose 263 H, Hemoglobin A1c 6.7 H, Calcium 9.1 02/03/25 05:47: POC Glucose 207 H 02/03/25 11:29: POC Glucose 193 H Radiography Diagnostic Testing: Radiology Impression Echocardiogram 02/02/25 06:11 Interpretation Summary Normal LV size. The left ventricular ejection fraction is 55 %. There is mild to moderate mitral annular calcification. Mild focal aortic valve calcification. Stage 1 diastolic dysfunction. Pulmonary artery systolic pressure is 45 mmHg. Ordering Physician: Gilson Porras Referring Physician: Harlan Ford Performed By: Azalia Rondon, EVELYN, RVT D/C Instructions Discharge Activity: Return to Normal Activity Weight Bearing Status: Weight bearing as tolerated Call your doctor if you observe: Fever of 101 or Higher, Shortness of breath, Dizziness, Swelling in the ankles and Chest pain DC O2, CPAP, BIPAP Needs Home O2 Discharge instructions: No Meaningful Use Info Meaningful Use Meaningful Use Diagnoses (Choose all that apply): None applicable Discharge Plan Admission Admit Date/Time: 02/01/25 22:47 Primary Reason for Your Visit: acute encephalopathy due to hypoglycemia Attending Provider: Delpihne Miguel Primary Care Provider: Harlan Ford Consulting Providers: Gilson Porras; Chuy Beverly; Ramon Roper; Wilda Theodore; Nellie Claros; Mirela Lake; Denis Malone; Vivian Sylvester; Hamilton Allen; Amanuel Sneed; Devante Romero; Brittani Wilson; Emmanuel Abraham; Essie Mckeon; Robert Cedeno; Iraj Rooney; Desmond Vincent; Chelo Elliott; Brigido Yang; Majo Momin; Jono Delgadillo Instructions Patient Instructions: Diabetes Low Blood Sugar Ch, ED Hypoglycemia Oral Diabetic Med Discharge Orders/Prescriptions Prescriptions: New metformin 500 mg tablet 500 mg PO BID Qty: 60 1RF Continued magnesium oxide 500 mg capsule 500 mg PO DAILY simvastatin 20 mg tablet 20 mg PO DAILY losartan 50 mg tablet 50 mg PO QDAY gabapentin 300 mg Capsule 900 mg PO TID pddjjbozauc-dhcvzyylp-jfe C-Mn [Glucosamine Chondroitin MaxStr] 500-400 mg Capsule 1 cap PO DAILY lamotrigine 25 mg tablet 25 mg PO DAILY meloxicam 7.5 mg tablet 7.5 mg PO PRN PRN (Reason: FOOT PAIN) Patient Comments: TAKE 1 TABLET BY MOUTH ONCE DAILY. NEEDED FOR FOOT PAIN, WITH FOOD. cholecalciferol (vitamin D3) [Vitamin D3] 25 mcg (1,000 unit) Capsule 25 mcg PO DAILY potassium gluconate 595 mg (99 mg) tablet 595 mg PO DAILY warfarin 4 mg tablet 4 mg PO DAILY Protocol: Dose Management Condition: Saturday Dose/Route: 4 mg Instruction: 1 x 4 mg tablet Condition: Saturday Dose/Route: 4 mg Instruction: 1 x 4 mg tablet Condition: Saturday Dose/Route: 4 mg Instruction: 1 x 4 mg tablet Condition: Saturday Dose/Route: 4 mg Instruction: 1 x 4 mg tablet Condition: Dose/Route: 4 mg Instruction: 1 x 4 mg tablet Condition: Saturday Dose/Route: 4 mg Instruction: 1 x 4 mg tablet Condition: Saturday Dose/Route: 4 mg Instruction: 1 x 4 mg tablet Protocol Text: Adjustment Start Date: Saturday01/19/25 INR Value: 2.6 INR Date: 01/19/25 Recheck Date: 02/09/25 propranolol 60 mg capsule,extended release 24 hr 60 mg PO DAILY losartan 25 mg tablet 50 mg PO DAILY warfarin 2 mg tablet 2 mg PO .COMPLEX Rx Instructions: 2 mg orally; T,W,R,F, Discontinued glimepiride 4 mg Tablet 4 mg PO BID metformin 750 mg Tablet Extended Release 24 Hr 750 mg PO BID Referrals / Follow Up: Harlan Ford DO [Primary Care Provider] - Within 1 Week Disposition Disposition (needs filled in before D/C Order can be placed): Home, Self Care Charges/Coding Visit Charges Inpatient E&M: 06872 Disch Hosp >30min
--- NOTE | 2025-02-03 13:31 | PHA.DC.MR.R ---
Pharmacy [place] Med Reconciliation Pharmacy Service has performed discharge medication reconciliation for this patient. The patient's discharge medication list was reviewed for discrepancies and discrepancies were resolved. Medications at Discharge Home Medications gabapentin 300 mg capsule 900 mg PO TID PAIN 09/06/22 clvhgrcpjks-clnonattm-gnc C-Mn 500 mg-400 mg capsule (Glucosamine Chondroitin Maximum Strength) 1 cap PO DAILY SUPPLEMENT 09/06/22 magnesium oxide 500 mg capsule 500 mg PO DAILY SUPPLEMENT 09/10/22 cholecalciferol (vitamin D3) 25 mcg (1,000 unit) capsule (Vitamin D3) 25 mcg PO DAILY SUPPLEMENT 09/13/22 meloxicam 7.5 mg tablet 7.5 mg PO PRN PRN FOOT PAIN 09/13/22 simvastatin 20 mg tablet 20 mg PO DAILY Cholesterol 10/11/22 lamotrigine 25 mg tablet 25 mg PO DAILY PT UNSURE 01/15/24 losartan 50 mg tablet 50 mg PO QDAY bp 01/15/24 potassium gluconate 595 mg (99 mg) tablet 595 mg PO DAILY Supplement 01/13/25 warfarin 4 mg tablet 4 mg PO DAILY Anticoagulant 01/13/25 losartan 25 mg tablet 50 mg PO DAILY 02/01/25 propranolol 60 mg capsule,24 hr,extended release 60 mg PO DAILY 02/01/25 warfarin 2 mg tablet 2 mg PO .COMPLEX 02/01/25 metformin 500 mg tablet 500 mg PO BID #60 tabs 02/03/25
--- NOTE | 2025-02-03 14:13 | CASEMGMT ---
Patient has order for discharge. RN CM in to discuss needs at discharge. Patient denies needs or help at discharge. Patient had no further questions or concerns.
[2025-02-03 14:14] VITALS: BP 160/69; PULSE 91; RESP 17; O2SAT 97
[2025-02-03 14:17] VITALS: BMI 26.9
--- NOTE | 2025-02-03 15:28 | CASEMGMT ---
Social Work PHQ9 depression screen not completed as physician note indicates no stroke. HANNAH Love
== END 2025-02-03 14:47 | disposition home or self-care (01) | DRG 637 ==
LOC: ED 22:36 → PCU 23:05
PROVIDERS: Admitting Provider Family Medicine; Emergency Provider Emergency Medicine; PCP Student in an Organized Health Care Education/Training Program; Visit Provider Student in an Organized Health Care Education/Training Program
DX: E11.649 Type 2 diabetes mellitus with hypoglycemia without coma (principal); E43 Unspecified severe protein-calorie malnutrition; G93.41 Metabolic encephalopathy; I10 Essential (primary) hypertension; I48.0 Paroxysmal atrial fibrillation; E78.00 Pure hypercholesterolemia, unspecified; R59.0 Localized enlarged lymph nodes; Z79.899 Other long term (current) drug therapy; Z79.01 Long term (current) use of anticoagulants; Z86.73 Personal history of transient ischemic attack (TIA), and cerebral infarction without residual deficits; Z68.25 Body mass index [BMI] 25.0-25.9, adult
CPT/HCPCS: 36415; 70450; 70496; 70498; 70553; 71045; 80048; 80061; 81001; 82962; 83036; 84484; 85025; 85610; 85730; 93005; 93306; 94762; 97161; 97165; 97802; 99285; A9575; Q9957; Q9967; A4216

== ENCOUNTER 2025-02-09 09:50 | Outpatient (RCR) | payer MEDICARE, OTHER, SELFPAY ==
[2025-02-09 11:08] LABS: Prothrombin Time (Protime)PT. 16.0 SECONDS (11.7-14.9)
== END 2025-02-09 18:00 | disposition home or self-care (01) ==
LOC: LAB 09:50
PROVIDERS: PCP Student in an Organized Health Care Education/Training Program; Referring Provider Physician Assistant Medical; Visit Provider Physician Assistant Medical
DX: Z79.01 Long term (current) use of anticoagulants (principal); I48.0 Paroxysmal atrial fibrillation
CPT/HCPCS: 36415; 85610

== ENCOUNTER 2025-02-19 09:48 | Emergency (ER) | payer MEDICARE, OTHER, SELFPAY ==
[2025-02-19] VITALS (8 sets, daily range): BP systolic 121–149; BP diastolic 61–77; PULSE 83–87; RESP 18–23; TEMP 36.6–37; O2SAT 92–100; BMI 32.3
--- NOTE | 2025-02-19 09:43 | NURSING ---
bs repeat upon arrival 37. line placed and dr. hernandez at bedside. pt awake but alert to self and place only. oj with sugar packets given. will reeval
--- NOTE | 2025-02-19 09:53 | PCA ---
CALLED HOSPICE AT [id number] THEY STARTED A CASE AND WILL REACH OUT TO THE SON AND CALL US BACK
--- NOTE | 2025-02-19 11:45 | EX.ED.DYSGE1 ---
HPI History of Present Illness Chief Complaint: Weakness Detail of Chief Complaint: Decreased level consciousness, new diagnosis diffuse aggressive B-cell lymp Informant: family (History was obtained through son since he has altered mental status. Son is the POA.) Limited: other (Altered mental status) Onset/Context/Timing Onset: Today [facility] Medical History (Updated 02/19/25 @ 11:[address] 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 Slurred speech History of CVA in adulthood Subtherapeutic international normalized ratio (INR) Hypoglycemia AMS (altered mental status) Mass of left side of neck Anticoagulant long-term use A-fib Wears dentures History of pain when walking History of echocardiogram Normal Holter exam Cardiology follow-up encounter PAF (paroxysmal atrial fibrillation) History of stroke Macrocytic anemia Thrombocytopenia Atrial fibrillation with rapid ventricular response Vision loss, right eye Wears partial dentures Wears glasses High cholesterol Easy bruising Excessive bleeding Non-smoker History of pain when walking Carotid stenosis, right Hypercholesteremia Hypertension Diabetes mellitus Home Medications ?Medication ?Instructions ?Recorded ?Last Taken ?Type gabapentin 300 mg capsule 900 mg PO TID PAIN 09/06/22 02/01/25 History meloxicam 7.5 mg tablet 7.5 mg PO PRN PRN FOOT PAIN 09/13/22 01/23/23 History simvastatin 20 mg tablet 20 mg PO DAILY Cholesterol 10/11/22 02/01/25 History lamotrigine 25 mg tablet 25 mg PO DAILY PT UNSURE 01/15/24 02/01/25 History losartan 50 mg tablet 50 mg PO QDAY bp 01/15/24 01/27/25 History warfarin 4 mg tablet 4 mg PO DAILY Anticoagulant 01/13/25 02/01/25 History losartan 25 mg tablet 50 mg PO DAILY blood pressure 02/01/25 Unknown History propranolol 60 mg capsule,24 60 mg PO DAILY heart 02/01/25 02/01/25 History hr,extended release warfarin 2 mg tablet 2 mg PO .COMPLEX blood thinner 02/01/25 02/01/25 History metformin 500 mg tablet 500 mg PO BID #60 tabs 02/03/25 Unknown Rx glimepiride 4 mg tablet 4 mg PO QAM 02/18/25 Unknown History Allergy/AdvReac Type Severity Reaction Status Date / Time pregabalin (From Lyrica) AdvReac Other Verified 02/18/25 15:02 Family History (Updated 02/18/25 @ 15:10 by Mandie Cassidy) Mother Breast cancer Sister Cancer Surgical History Status post fine needle biopsy History of right-sided carotid endarterectomy Hx of bilateral cataract extraction Hx of colonoscopy Hx of total knee replacement Hx of hernia repair Hx laparoscopic cholecystectomy Social History (Updated 02/18/25 @ 15:08 by Mandie Cassidy) Smoking Status: Never smoker alcohol intake: never substance use type: does not use ROS ROS ED Review of Systems ROS Unobtainable: due to mental status EXAM Physical Exam Const Vital Signs: 02/19/25 09:32 02/19/25 09:39 02/19/25 09:45 Temperature 97.9 F 98.6 F Temperature Source Temporal Oral Pulse Rate 87 83 Respiratory Rate 18 22 H Respiratory Effort Normal Non-Labored Respiratory Pattern Normal Blood Pressure 133/77 H 133/77 H Blood Pressure Mean 95 95 Pulse Ox 94 96 Oxygen Delivery Method Room Air Room Air 02/19/25 11:57 02/19/25 13:07 02/19/25 15:00 Temperature Temperature Source Pulse Rate 83 87 85 Respiratory Rate 18 20 H 23 H Respiratory Effort Respiratory Pattern Blood Pressure 121/63 H 127/62 H Blood Pressure Mean 82 83 Pulse Ox 100 92 94 Oxygen Delivery Method Room Air Room Air 02/19/25 17:00 02/19/25 18:14 02/19/25 18:34 Temperature 97.8 F 98.1 F Temperature Source Oral Pulse Rate 87 83 83 Respiratory Rate 19 H 19 H 19 H Respiratory Effort Respiratory Pattern Blood Pressure 144/68 H 149/61 H 149/61 H Blood Pressure Mean 93 90 90 Pulse Ox 96 97 97 Oxygen Delivery Method Room Air Room Air Positive well nourished and well developed Constitutional Narrative: BMI 32.3. General Appearance ED: well developed, NAD and pallor HEENT Reports dry mucous membranes HEENT Narrative: Head is atraumatic no cephalic. Ears normal. Nares patent. Posterior pharynx is normal. Mouth ED: Yes dry mucous membranes Mouth: dry mucous membranes Eyes PERRL and EOMs intact bilaterally General Eye ED: Negative for pale conjunctiva or scleral icterus Neck No no lymphadenopathy, supple and no JVD Neck Narrative: Bruising noted from biopsy. He also has mass/lymphadenopathy. Chest Wall inspection of chest normal and palpation of chest normal Resp normal respiratory effort and clear to auscultation bilaterally Cardio regular rate, regular rhythm, S1 normal heart sound, S2 normal heart sound and no murmurs GI normal to inspection, nondistended, normoactive bowel sounds, non-tender, non-distended and no masses; Negative for hepatosplenomegaly Back/Spine no CVA tenderness Extremity normal to inspection Neuro No oriented x3 and CN's II-XII intact bilaterally Sensorium / Orientation: Negative for alert Psych Mood & Affect: depressed Skin no rashes or lesions noted and no wounds General Skin Exam: pallor; Negative for jaundice MDM MDM MDM Narrative Medical decision making narrative: Oncology note was reviewed. Patient was diagnosed with aggressive B-cell lymphoma, BCL?2 positive, BCL 6 negative and MYC negative consistent with diffuse large B-cell lymphoma GCB. Apparently he was until his this past December. Son reports weight loss of 23 pounds. He has also been anorexic loss of interest. He is having problems with his memory. His lab work that was recently done reveals pancytopenia. He has some slurred speech history of stroke as an adult. He also has history of A-fib. Uncertain whether this is paroxysmal or not. He has carotid artery stenosis noted as well as diabetes. Patient's blood sugar was low at 35 when he arrived. He was treated for this. Son asked to speak with me in the hallway. After discussion with son it was made determined that his life expectancy is less than 6 months. He is requesting hospice. Since patient has altered mental status is doing poorly prognosis is poor hospice was consulted. They will see patient at 1630. Because he is hospice comfort care will make him comfortable and no labs will be drawn. Lab Data Attestation: I reviewed the patient's lab results. Labs: Laboratory Results - last 24 hr 02/19/25 02/19/25 02/19/25 09:34 09:58 10:53 POC Glucose 37 L* 76 178 H 02/19/25 02/19/25 14:03 18:26 POC Glucose 93 61 L Discharge Plan Triage Chief Complaint: Weakness ED Provider: Chris Taylor Dx/Rx/DC Orders Clinical Impression: Hypoglycemia, Hypertension, Hypercholesteremia, PAD (peripheral artery disease), PAF (paroxysmal atrial fibrillation), Diffuse large B cell lymphoma, Pancytopenia, Acute alteration in mental status, DNR (do not resuscitate) discussion, DNR no code (do not resuscitate) Prescriptions: No Action simvastatin 20 mg tablet 20 mg PO DAILY losartan 50 mg tablet 50 mg PO QDAY glimepiride 4 mg tablet 4 mg PO QAM Rx Instructions: administer with breakfast gabapentin 300 mg Capsule 900 mg PO TID lamotrigine 25 mg tablet 25 mg PO DAILY meloxicam 7.5 mg tablet 7.5 mg PO PRN PRN (Reason: FOOT PAIN) Patient Comments: TAKE 1 TABLET BY MOUTH ONCE DAILY. NEEDED FOR FOOT PAIN, WITH FOOD. warfarin 4 mg tablet 4 mg PO DAILY Protocol: Dose Management Condition: Saturday Dose/Route: 4 mg Instruction: 1 x 4 mg tablet Condition: Saturday Dose/Route: 4 mg Instruction: 1 x 4 mg tablet Condition: Saturday Dose/Route: 4 mg Instruction: 1 x 4 mg tablet Condition: Saturday Dose/Route: 4 mg Instruction: 1 x 4 mg tablet Condition: Dose/Route: 4 mg Instruction: 1 x 4 mg tablet Condition: Saturday Dose/Route: 4 mg Instruction: 1 x 4 mg tablet Condition: Saturday Dose/Route: 4 mg Instruction: 1 x 4 mg tablet Protocol Text: Adjustment Start Date: Saturday02/09/25 INR Value: 1.3 INR Date: 02/09/25 Recheck Date: 02/16/25 propranolol 60 mg capsule,extended release 24 hr 60 mg PO DAILY losartan 25 mg tablet 50 mg PO DAILY warfarin 2 mg tablet 2 mg PO .COMPLEX Protocol: Dose Management Condition: Saturday Dose/Route: 4 mg Instruction: 1 x 4 mg tablet Condition: Saturday Dose/Route: 4 mg Instruction: 1 x 4 mg tablet Condition: Saturday Dose/Route: 4 mg Instruction: 1 x 4 mg tablet Condition: Saturday Dose/Route: 4 mg Instruction: 1 x 4 mg tablet Condition: Dose/Route: 4 mg Instruction: 1 x 4 mg tablet Condition: Saturday Dose/Route: 4 mg Instruction: 1 x 4 mg tablet Condition: Saturday Dose/Route: 4 mg Instruction: 1 x 4 mg tablet Protocol Text: Adjustment Start Date: Saturday02/09/25 INR Value: 1.3 INR Date: 02/09/25 Recheck Date: 02/16/25 Rx Instructions: 2 mg orally; T,W,R,F, metformin 500 mg tablet 500 mg PO BID Qty: 60 1RF Primary Care Provider: Harlan Ford Referrals: Harlan Ford DO [Primary Care Provider] - Print Language: [place] Disposition Disposition: Hospice in Home Discharge Date/Time: 02/19/25 18:36
--- NOTE | 2025-02-19 12:04 | CM.ED ---
Social work Reason for referral: hospice Referral source: case find/[facility] Registration SW entered patient's room, identifying self and role at [facility]. Patient was observed sleeping in bed, but patient's son/HCPOA, Grant, and patient's sister, Sarika, were bedside. SW knew that prior to shift arrival, a referral was made for Hospice care. While SW was present in patient's room, Grant called Hospice and scheduled for 1630 today. Grant and Sarika discussed patient's health decline since December when patient's (Grant's stepmother) . Active listening and supportive presence provided. Family denied further needs at this time. SW to remain available as needed. Emily Guerrero, [employer], HEALTH CENTER ASSISTANT
--- NOTE | 2025-02-19 18:36 | ED.RN ---
bs [address] dr. aware and pt alert. oj given and reported to ems personnel.
== END 2025-02-19 18:36 | disposition hospice, home (50) ==
PROVIDERS: Emergency Provider Emergency Medicine; PCP Student in an Organized Health Care Education/Training Program; Visit Provider Emergency Medicine
DX: R53.1 Weakness (principal); D61.818 Other pancytopenia; C85.10 Unspecified B-cell lymphoma, unspecified site; I48.0 Paroxysmal atrial fibrillation; E11.649 Type 2 diabetes mellitus with hypoglycemia without coma; R41.82 Altered mental status, unspecified; Z51.5 Encounter for palliative care; I10 Essential (primary) hypertension; E78.00 Pure hypercholesterolemia, unspecified; Z86.73 Personal history of transient ischemic attack (TIA), and cerebral infarction without residual deficits; Z79.01 Long term (current) use of anticoagulants; Z79.899 Other long term (current) drug therapy; Z79.84 Long term (current) use of oral hypoglycemic drugs; Z98.41 Cataract extraction status, right eye; Z98.42 Cataract extraction status, left eye; Z96.659 Presence of unspecified artificial knee joint; Z90.49 Acquired absence of other specified parts of digestive tract; I73.9 Peripheral vascular disease, unspecified; Z66 Do not resuscitate
CPT/HCPCS: 82962; 99285; A4216